=== PATIENT | female | born 1960 | race African-American/Black ===

== ENCOUNTER 2021-07-16 10:49 | Inpatient (IN) | payer OTHER, SELFPAY ==
[2021-07-16] VITALS (44 sets, daily range): BP systolic 93–162; BP diastolic 71–140; PULSE 52–190; RESP 18–32; TEMP 36.2–36.8; O2SAT 91–100; BMI 29.2
--- NOTE | ~2021-07-16 | US_ITS ---
EXAMINATION: US thoracentesis EXAM DATE: 07/16/2021 18:46 INDICATION: Right pleural effusion, shortness of breath. TECHNIQUE: Timeout procedure was performed. I discussed the procedure, its risks and benefits with th e patient. Potential risks discussed included bleeding, infection, and pneumothorax which could poten tially require chest tube. Alternatives were also discussed. The patient understood the risks, was gi adrienne chance to ask questions, and agreed to proceed. The skin was prepped and draped in sterile fashion. 1% lidocaine was used for local anesthesia. Under ultrasound site localization, a 5 Fr catheter with trochar was advanced into the right pleural effus ion. Fluid was aspirated. The catheter was removed, and a dressing was applied. There were no immedia te complications. Patient was sent for postprocedure chest x-ray. FINDINGS: Ultrasound images demonstrate a right pleural effusion adequate in size for performing thoracentesis. IMPRESSION: 1. Successful ultrasound-guided thoracentesis yielding 700 mL of clear fluid. Reviewed, dictated and finalized at location A. R AND CHASSIS INSPECTOR
--- NOTE | ~2021-07-16 | XR_ITS ---
EXAMINATION: XR chest port-a-cath/central DATE: 07/21/2021 15:28 INDICATION: Tunneled dialysis catheter insertion TECHNIQUE: frontal view of the chest was obtained. COMPARISON: Chest radiograph dated 07/20/2021 FINDINGS: Large-bore dual-lumen tunneled right internal jugular central venous catheter with distal tip at the superior cavoatrial junction. Basilar predominant opacities in the bilateral mid to lower lung zones consistent with unchanged small bilateral pleural effusions and associated basilar atelectasis and/or pneumonia. No pulmonary edema or pneumothorax. Prominent enlargement of the cardiac silhouette. IMPRESSION: 1. Right internal jugular central venous port catheter tip at the superior cavoatrial junction. 2. Small bilateral pleural effusions with associated bibasilar atelectasis and/or pneumonia. 3. Enlarged cardiac silhouette which could be due to cardiomegaly or pericardial effusion. Reviewed, dictated and finalized at location B. NE FISHERIES TECHNICIAN IMPRESSION: 1. Right internal jugular central venous port catheter tip at the superior cavo atrial junction. 2. Small bilateral pleural effusions with associated bibasilar atelectasis and/ or pneumonia. 3. Enlarged cardiac silhouette which could be due to cardiomegaly or pericardia l effusion.
--- NOTE | ~2021-07-16 | US_ITS ---
EXAMINATION: US renal BI EXAM DATE: 07/16/2021 18:43 INDICATION: Renal failure. TECHNIQUE: Multiple grayscale and Doppler images of the kidneys were obtained (by a technologist who performed the scan) and subsequently reviewed. There is no prior study for comparison. FINDINGS: Incidental note made of small amount of ascites. Right kidney: There is normal contour and echogenicity. It measures 8.3 x 3.6 x 3.3 centimeters. Th ere are no focal renal lesions identified. There is no hydronephrosis. Left kidney: There is normal contour and echogenicity. It measures 8.6 x 3.6 x 4.7 centimeters. The re are no focal renal lesions identified. Mild left hydronephrosis. Bladder unremarkable. IMPRESSION: 1. Mild to moderate renal atrophy. No hydronephrosis. 2. Mild left hydronephrosis, could be phasic. 3. Small amount of ascites. Reviewed, dictated and finalized at location A. ET MOLDER
--- NOTE | ~2021-07-16 | XR_ITS ---
EXAMINATION: XR chest 2V DATE: 07/20/2021 14:48 INDICATION: Pneumonia TECHNIQUE: PA and lateral views of the chest were obtained. COMPARISON: Chest radiograph dated 07/16/2021 FINDINGS: Persistent opacities in the right mid to lower and left lower lung zones consistent with small bilate ral pleural effusions and associated atelectasis and/or pneumonia. No pulmonary edema or pneumothorax . Cardiomegaly. IMPRESSION: 1. Small bilateral pleural effusions with bibasilar atelectasis and/or pneumonia, right greater than left. 2. Cardiomegaly. Reviewed, dictated and finalized at location B. AND FRAME POLER IMPRESSION: 1. Small bilateral pleural effusions with bibasilar atelectasis and/or pneumoni a, right greater than left. 2. Cardiomegaly.
--- NOTE | ~2021-07-16 | XR_ITS ---
EXAMINATION: XR_[id number]_CR EXAM DATE: 07/16/2021 18:24 INDICATION: Developing shortness of breath. Right pleural effusion, postthoracentesis. TECHNIQUE: Portable AP frontal chest x-ray was obtained. Comparison is made to prior examination from earlier same day. FINDINGS: There is small right pleural effusion, decrease in size following removal of 700 mL fluid. No evidence of postprocedure pneumothorax. There is adjacent airspace disease at least partly atelect asis. Underlying pneumonia or cancer not excludable. Cardiac silhouette is severely enlarged. There a re no osseous abnormalities identified. IMPRESSION: 1. Small right pleural effusion, adjacent multi segmental atelectasis. Superimposed pneumonia or unde rlying cancer not excludable. 2. Severely enlarged cardiac silhouette. Reviewed, dictated and finalized at location A. STANT DIRECTOR OF FINANCIAL AID IMPRESSION: 1. Small right pleural effusion, adjacent multi segmental atelectasis. Superimp osed pneumonia or underlying cancer not excludable. 2. Severely enlarged cardiac silhouette.
--- NOTE | ~2021-07-16 | XR_ITS ---
EXAMINATION: XR fl guide central line place DATE: 07/21/2021 16:11 INDICATION: Central line placement. TECHNIQUE: 2 intraoperative fluoroscopic views of the chest were obtained. I was not present. Fluoros copy exposure time was 126 seconds. COMPARISON: Chest single view 07/21/2021 FINDINGS: A right internal jugular central venous catheter is seen with tip overlying the proximal ri ght atrium. IMPRESSION: 1. Central line tip overlying the proximal right atrium. Reviewed, dictated and finalized at location A. R REPAIRER
--- NOTE | ~2021-07-16 | XR_ITS ---
EXAMINATION: XR chest 1V portable DATE: 07/16/2021 11:38 INDICATION: Hypoxia. Weakness. TECHNIQUE: A single frontal view of the chest was obtained. COMPARISON: None. FINDINGS: There is a moderate-sized right pleural effusion. There are airspace opacities at right artie g base. There is mild atelectasis at left lung base. No pneumothorax. Cardiomegaly is noted. IMPRESSION: 1. Moderate-sized right pleural effusion. 2. Airspace opacities at right lung base, consistent with atelectasis versus pneumonia. 3. Cardiomegaly. Reviewed, dictated and finalized at location A. T LEATHER DEPARTMENT SUPERVISOR IMPRESSION: 1. Moderate-sized right pleural effusion. 2. Airspace opacities at right lung base, consistent with atelectasis versus pn eumonia. 3. Cardiomegaly.
--- NOTE | 2021-07-16 11:25 | ECG_ITS ---
Measurements Intervals [place] Rate: 189 P: PA: 0 QRS: 5 QRSD: 102 T: 182 QT: 244 QTc: 434 Interpretive Statements ATRIAL FIBRILLATION WITH RAPID VENTRICULAR RESPONSE VENTRICULAR PREMATURE COMPLEXES DELAYED PRECORDIAL R/S TRANSITION ST-T WAVE ABNORMALITY IN INF/HIGH LAT LEADS- CONSIDER ISCHEMIA BASELINE ARTIFACT- I, II, III, AVR, AVL, AVF ABNORMAL ECG Electronically Signed On 07-16-2021 13:31:46 LEAD RADIATION THERAPIST by Irwin Ureña D.O.
[2021-07-16] MEDS: dilTIAZem HCl INJ 25 MG/5 ML VIAL 5 MG IV PUSH ×2 (11:42→12:29)
--- NOTE | 2021-07-16 11:42 | ED.GENADULT ---
HPI - General Adult General Chief complaint: Extremity Problem,Nontraumatic Stated complaint: edema bi lateral legs Time Seen by Provider: 07/16/21 11:28 Source: RN notes reviewed History of Present Illness HPI narrative: Patient presents emergency department from home for weakness. Patient states she is a progressive weakness over the past 1 week with swelling of the lower extremities bilaterally this been getting worse. States that she was recently started on Lasix for her lower extremity edema and also scheduled see a outboard motor mechanic at [facility] in several weeks she states she is followed by her PCP but has not seen any specialist at this time she denies any fevers or chills chest pain states she has been feeling short of breath but does not feel like her heart is been racing denies any abdominal pain nausea or vomiting Related Data Home Medications Medication Instructions Recorded Confirmed eplerenone 50 mg PO BID 07/16/21 07/16/21 ferrous sulfate [FeroSul] 325 mg PO DAILY 07/16/21 07/16/21 furosemide 20 mg PO DAILY 07/16/21 07/16/21 metoprolol succinate 100 mg PO DAILY 07/16/21 07/16/21 nifedipine 90 mg PO DAILY 07/16/21 07/16/21 potassium chloride 20 meq PO DAILY 07/16/21 07/16/21 Allergies Allergy/AdvReac Type Severity Reaction Status Date / Time PHILIP Inhibitors Allergy Swelling Verified 07/17/21 01:01 of Lip/Tongue/Throat Review of Systems Review of Systems: Gen.: Denies fevers or chills ENT: Denies congestion Respiratory: See HPI CV: Denies chest pain or palpitations GI: Denies abdominal pain nausea, emesis or diarrhea Musculoskeletal: Denies back pain or muscle pain Neuro: Reports weakness Skin: Denies rash Except as documented, all other systems reviewed and negative [facility] Past Medical History Medical History (Updated 07/17/21 @ 00:47 by Charissa Joshi DO) Chronic kidney disease Hypertension Surgical History Surgical History (Updated 07/17/21 @ 00:43 by Charissa Joshi DO) History of History of tonsillectomy Family History Family History (Updated 07/17/21 @ 01:02 by Nga Sandoval RN) Father CAD (coronary artery disease) Mother Hypertension Social History Social History (Updated 07/17/21 @ 01:15 by Charissa Joshi DO) Social History: The patient lives at home with her daughter and mother. 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 She used to smoke half a pack of cigarettes per day but quit smoking in 2018. She has 20 pack per year smoking history. She used to drink 1-2 beers a day every day but quit doing so several years ago. She now drinks 1 beer on rare occasion. She denies any illicit substance use. Primary care provider: Brandie Rhoades COMPONENT DESIGN ENGINEER Code status: Full code Surrogate decision maker: Daughter Smoking packs per day: 0.5 Smoking cigarettes per day: 10.0 Years smoked: 40 Smoking pack-years: 20.00 Smoking status: Former smoker Tobacco type: cigarettes Alcohol intake: current Drinks per week: 1 Substance use: never Spiritual care concerns: No Exam Narrative: APPEARANCE: No acute distress, nontoxic, resting in bed EYES: EOMI HEENT: Normocephalic, atraumatic, OMM RESPIRATORY: No respiratory distress decreased breath sounds bilateral bases CARDIOVASCULAR: Tachycardic and regular without murmurs rubs or gallops. ABDOMINAL: Soft, nontender, nondistended, no rebound or guarding MUSCULOSKELETAl: Moves all extremities. No clubbing, cyanosis 3+ edema bilateral extremities NEURO: Awake and alert. Following commands, speech normal, no focal deficits SKIN:: Warm, dry. No rashes lesions or abrasions PSYCHIATRIC: Normal affect/mood, Course Course Emergency Course: Discussed Dr. Hoskins presentation work-up discussed patient's current heart rate. At this time recommends continue Cardizem recommends patient started on metoprolol 50 mg once now and then beginning tonight twice daily Discussed with Dr. Silvino crespo
[2021-07-16 11:44] LABS: Basophils Percent Auto 0.3 % (0.2-1.2); Eosinophils Absolute Auto 0.1 K/mm3 (0-0.3); Eosinophils Percent Auto 0.5 % (0-4.4); Hematocrit 34.5 % (37.0-47.0); Hemoglobin 10.7 g/dL (12.0-15.0); Immature Granulocyte Absolute 0.07 K/mm3 (0.00-0.031); Immature Granulocyte Percent A 0.6 % (0-0.5); Lymphocytes Absolute Auto 0.98 K/mm3 (0.9-3.2); Lymphocytes Percent Auto 8.2 % (18.3-44.2); Mean Corpuscular Hemoglobin 26.2 pg (26-34); Mean Corpuscular Volume 84.4 fl (80-100); Mean Platelet Volume 11.1 fl (7.4-10.4); Monocytes Absolute Auto 0.9 K/mm3 (0.1-0.6); Monocytes Percent Auto 7.5 % (2.6-8.5); Neutrophils Absolute Auto 9.9 K/mm3 (1.3-6.7); Neutrophils Percent Auto 82.9 % (45.5-73.1); Platelet Count Result 374 k/mm3 (150-375); Red Blood Count 4.09 M/mm3 (4.2-5.4); Red Cell Distribution Width 18.3 % (11.5-14.5); White Blood Count 11.9 K/mm3 (4.5-10.0)
[2021-07-16 11:56] LABS: Alanine Aminotransferase 146 U/L (4-35); Albumin Level 3.6 g/dL (3.5-5.1); Alkaline Phosphatase 102 U/L (38-126); Anion Gap 17 mmol/L (8-16); Aspartate Amino Transferase 100 U/L (14-36); Bilirubin,Total 1.1 mg/dL (0.2-1.3); Blood Urea Nitrogen 77 mg/dL (7-17); Calcium 8.9 mg/dL (8.4-10.2); Carbon Dioxide 16 mmol/L (22-30); Chloride 102 mmol/L (98-107); Estimated CRCL calculation 10 ml/min; Estimated Glomerular Filt Rate 12; Glucose 134 mg/dL (65-110); Potassium 3.4 mmol/L (3.4-5.0); Sodium 135 mmol/L (137-145)
[2021-07-16] MEDS: dilTIAZem 100 MG/100 ML 100 MG/100 ML BAG IV CONT (11:56)
[2021-07-16 12:11] LABS: NT Pro B Type Natriuretic Pept 21100 pg/mL (5-100)
[2021-07-16] MEDS: METOPROLOL TARTRATE 50 MG TAB PO (13:36)
[2021-07-16 14:23] LABS: INR 1.4; Prothrombin Time 16.8 Seconds (11.1-14.7)
[2021-07-16 14:24] LABS: Partial Thromboplastin Time 34.6 SECONDS (22.3-36.8)
[2021-07-16 15:01] LABS: Creatinine Urine 159.8 mg/dL
[2021-07-16 15:02] LABS: Sodium Urine Random < 5 meq/L
[2021-07-16 15:03] LABS: Add Urine Microscopic? YES; Appearance Urine Clear (Clear); Bilirubin Urine Negative (Negative); Blood Urine 1+ (Negative); Color Urine Yellow (Yellow); Glucose Urine UA Negative (Negative); Ketones Urine Negative (Negative); Leukocyte Esterase Ur Negative LEU/UL (Negative); Mucus Urine Rare /lpf; Nitrate Urine Negative (Negative); Protein Urine 2+ mg/dL (Negative); RBC Urine 0-2 /hpf (0-2); Specific Grav Ur 1.014 (1.001-1.035); Squamous Epithelial Cell Urine Few /hpf (Few); Urobilinogen Urine Negative mg/dL (<2.0); WBC Urine 0-3 /hpf
[2021-07-16 15:44] LABS: Lactic Acid Reflex 1.8 mmol/L (0.7-2.1)
[2021-07-16 16:54] LABS: Lactate Dehydrogenase 1079 U/L (313-618)
[2021-07-16 18:47] LABS: pH Pleural Fluid 7.464 (7.210-7.500)
[2021-07-16] MEDS: HEPARIN SODIUM 5,000 UNITS/ML VIAL 4500 UNITS IV PUSH (18:57)
[2021-07-16] MEDS: HEPARIN SOD/D5W 100 UNITS/ML 25,000 UNITS/250 ML BAG 10 UNITS IV CONT (19:02)
[2021-07-16 19:10] LABS: Troponin I 0.156 ng/mL (0.000-0.034)
--- NOTE | 2021-07-16 19:22 | PC.NURSE ---
Report received from RUPESH Bahena. Assumed care of patient at this time.
[2021-07-16] MEDS: METOPROLOL TARTRATE INJ 5 MG/5 ML VIAL IV PUSH (19:44)
[2021-07-16 20:18] LABS: Pleural fluid source Pleural fluid
[2021-07-16 20:19] LABS: Appearance Pleural Fluid Hazy (Clear); Color Pleural Fluid Yellow (Colorless)
[2021-07-16 20:20] LABS: Lymphocytes Pleural Fluid 38 %; Macrophages Pleural Fluid 8 %; Mesothelial Cells Pleural Flui 1 %; Monocytes Pleural Fluid 48 %; Neutrophils Pleural Fluid 5 % (0-25)
--- NOTE | 2021-07-16 21:53 | PM.IMHP ---
H&P: HPI History of Present Illness Date/Time: 07/16/21 21:53 Chief Complaint: Weakness, leg swelling Narrative: 60-year-old female with past medical history of hypertension and chronic kidney disease who presented to the ER with progressive weakness and increased lower extremity swelling over the last week. The patient reports that she has had chronic kidney disease for least 3 years. She states that with her last set of labs in February her kidney function had improved slightly. She was evaluated by a kindergarten tutor several years ago but she cannot recall where they were located. She is supposed to follow-up with a kindergarten tutor at [place] and a few weeks. She has not noticed any changes in her urinary frequency urgency or urinary amounts. She has noticed foamy urine. She was started on Lasix July 05. She stated that she is actually developed some mild shortness breath over the last couple of months but her symptoms acutely worsen in the last week. She has been having increased shortness of breath at rest that is worse with activity, lower extremity swelling, paroxysmal nocturnal dyspnea and orthopnea for the last week. She denies having sensation of palpitations but states that she feels as if she is going to have a panic attack all week. She reports that her swelling has gotten progressively worsened is now up to her knees. She denies any nausea or vomiting. She has had waxing and waning appetite. She denies any fevers or chills. After she arrived to the intermediate unit the patient acutely felt ill was diaphoretic, pale restless and extremely nauseated. The patient developed profound hypotension with systolic blood pressures in the 70s. Her heart rates were still in the 120s. Nursing staff immediately stop the Cardizem drip. It appears that the patient's Cardizem was PE packed with her antibiotic therapy and nurse was concerned that the patient may have been getting a higher infusion rate of Cardizem than her she was supposed to receive. The patient's Cardizem was held for approximately 30 minutes. The patient's blood pressure rebounded. Cardizem drip has been restarted at 5 mg an hour. If hypotension recurs nursing staff will need to call Cardiology. The patient underwent thoracentesis by IR james still in the ER. 700 mL of clear fluid was obtained. The thoracentesis did help her shortness of breath. Studies are pending. The patient reports that she is allergic to Aftab inhibitors in a causes angioedema of her lips. Review of Systems Review of Systems: 12 systems were reviewed with pertinent positives and negatives per HPI. Except as documented in the HPI, all other systems were reviewed and are negative. [facility] Past Medical History Medical History (Updated 07/17/21 @ 00:47 by Charissa Joshi DO) Chronic kidney disease Hypertension Surgical History Surgical History (Updated 07/17/21 @ 00:43 by Charissa Joshi DO) History of History of tonsillectomy Social History Social History (Updated 07/16/21 @ 21:55 by Charissa Joshi DO) Smoking packs per day: 0.5 Smoking cigarettes per day: 10.0 Years smoked: 30 Smoking pack-years: 15.00 Smoking status: Current some day smoker Tobacco type: cigarettes Alcohol intake: current Drinks per week: 1 Substance use: never Spiritual care concerns: No Meds Home Medications and Allergies Home Medications Medication Instructions Recorded Confirmed Type eplerenone 50 mg PO BID 07/16/21 07/16/21 History ferrous sulfate [FeroSul] 325 mg PO DAILY 07/16/21 07/16/21 History furosemide 20 mg PO DAILY 07/16/21 07/16/21 History metoprolol succinate 100 mg PO DAILY 07/16/21 07/16/21 History nifedipine 90 mg PO DAILY 07/16/21 07/16/21 History potassium chloride 20 meq PO DAILY 07/16/21 07/16/21 History Allergies Allergy/AdvReac Type Severity Reaction Status Date / Time No Known Allergies Allergy Unverified 01/10/18 23:27 Vital Signs Vit
[2021-07-16 22:32] LABS: Troponin I 0.165 ng/mL (0.000-0.034)
[2021-07-17] VITALS (18 sets, daily range): BP systolic 108–135; BP diastolic 90–106; PULSE 72–158; RESP 12–20; TEMP 35.8–37; O2SAT 97–100
[2021-07-17] MEDS: METOPROLOL TARTRATE 50 MG TAB PO ×3 (00:10→20:32)
[2021-07-17] MEDS: dilTIAZem 100 MG/100 ML 100 MG/100 ML BAG 10 MG IV CONT (00:16)
[2021-07-17 01:28] LABS: Partial Thromboplastin Time 99.5 SECONDS (22.3-36.8)
[2021-07-17 08:03] LABS: Alanine Aminotransferase 193 U/L (4-35); Albumin Level 3.3 g/dL (3.5-5.1); Alkaline Phosphatase 87 U/L (38-126); Anion Gap 17 mmol/L (8-16); Aspartate Amino Transferase 128 U/L (14-36); Bilirubin,Total 0.8 mg/dL (0.2-1.3); Blood Urea Nitrogen 83 mg/dL (7-17); Calcium 8.4 mg/dL (8.4-10.2); Carbon Dioxide 16 mmol/L (22-30); Chloride 101 mmol/L (98-107); Estimated CRCL calculation 9 ml/min; Estimated Glomerular Filt Rate 10; Glucose 109 mg/dL (65-110); Potassium 3.4 mmol/L (3.4-5.0); Sodium 134 mmol/L (137-145)
[2021-07-17 08:04] LABS: Basophils Percent Auto 0.2 % (0.2-1.2); Eosinophils Percent Auto 0.2 % (0-4.4); Hematocrit 32.8 % (37.0-47.0); Hemoglobin 10.5 g/dL (12.0-15.0); Immature Granulocyte Absolute 0.07 K/mm3 (0.00-0.031); Immature Granulocyte Percent A 0.6 % (0-0.5); Lymphocytes Absolute Auto 0.87 K/mm3 (0.9-3.2); Lymphocytes Percent Auto 7.2 % (18.3-44.2); Mean Corpuscular Hemoglobin 26.8 pg (26-34); Mean Corpuscular Volume 83.7 fl (80-100); Mean Platelet Volume 11.1 fl (7.4-10.4); Monocytes Absolute Auto 0.8 K/mm3 (0.1-0.6); Monocytes Percent Auto 6.5 % (2.6-8.5); Neutrophils Absolute Auto 10.4 K/mm3 (1.3-6.7); Neutrophils Percent Auto 85.3 % (45.5-73.1); Platelet Count Result 336 k/mm3 (150-375); Red Blood Count 3.92 M/mm3 (4.2-5.4); Red Cell Distribution Width 17.6 % (11.5-14.5); White Blood Count 12.1 K/mm3 (4.5-10.0)
--- NOTE | 2021-07-17 08:43 | PM.CNCAR ---
Assessment and Plan Additional Plan This is a 60-year-old lady with: Longstanding hypertension by her history you not well controlled and she now has what appears to be end-stage renal disease. In this setting she presents to the hospital with volume overload also found to be in atrial fib with RVR. She was given some IV diltiazem along with the metoprolol she normally takes to provide rate control. It looks like last evening she may of in inverted we got a higher dose of the diltiazem and transiently was hypotensive. Her blood pressure is not low since the dosage has been adjusted and she is not in any distress this morning. She certainly could have a hypertensive cardiomyopathy as well as her cardiac silhouette is enlarged. For the time being I will keep her on metoprolol and diltiazem I am going to transition her to oral diltiazem this morning. She will have an echocardiogram ordered. She is anticoagulated with heparin. Obviously her renal failure limits her anticoagulation options. Nephrology consult has been requested and is pending. Very good chance that renal replacement therapy will have to be recommended and as such oral anticoagulation should be delayed until vascular access issues are settled. Thank you for asking me to see this nice lady and participate in this rather complicated situation Jama Hoskins MD [facility] History of Present Illness History of Present Illness Consult date/time: 07/17/21 08:43 Consult reason: atrial fibrillation Reason For Visit: chf,acute renal failure,pleural effusion,a fib wit Narrative: This is a 60-year-old lady I am seeing at the request of the hospitalist this morning because she presented to the hospital yesterday with a atrial fibrillation and rapid ventricular response. She has not been to [facility] in the past and receives her care up in [place] so we do not have any previous records on this lady for us to review. She is a good historian however and states that she has had longstanding hypertension since she was a teenager. She states her blood pressure over the years has been difficult for her physician to control. She has been told of chronic kidney disease in the past and she was told that she needed to see a laboratory technical specialist and an appointment was made with a physician over at [facility] which is scheduled for later in the month but that has not yet occurred. She started to feel short of breath with a lot of lower extremity for edema developing over the last several weeks and because of significant shortness of breath came to this hospital's emergency room last evening. In the emergency department she was found to be in atrial fib with RVR. She also had a fairly large right pleural effusion. She was not specifically aware of being in atrial fib she is not aware of the sense of tachycardia or palpitations she denies any chest pain symptoms. She does not have any prior history of cardiac problems that she has been made aware of. The chest x-ray also appears to show enlargement of the cardiac silhouette. She takes metoprolol for hypertension along with nifedipine. Metoprolol has been continued she was given intravenous diltiazem overnight for heart rate control. With that combination her heart rate is in the 110-120 this morning. She is relatively comfortable appearing and not in any distress at this time. Patient is ECG demonstrates AFib with RVR left ventricular hypertrophy and nonspecific ST and T-wave abnormalities. Her metabolic profile shows a creatinine to be 5.3 with a BUN of 83. She underwent thoracentesis in the emergency room last night removing a significant amount of pleural fluid after this her shortness of breath did improve somewhat. Review of Systems Constitutional: Constitutional: Reports fatigue Eyes: Eyes: Reports no additional eye complaints ENT: Reports system reviewed and no additional complaints, except as documented Cardiovascular: Car
[2021-07-17 08:51] LABS: Partial Thromboplastin Time 67.2 SECONDS (22.3-36.8)
[2021-07-17] MEDS: POTASSIUM CHLORIDE 20 MEQ TABLET.ER PO (08:58)
[2021-07-17] MEDS: FERROUS SULFATE 324 MG TABLET PO (08:58)
[2021-07-17] MEDS: HEPARIN SODIUM 5,000 UNITS/ML VIAL 2000 UNITS IV PUSH ×2 (09:05→23:42)
--- NOTE | 2021-07-17 10:04 | PM.CNNEP ---
Assessment and Plan Assessment and plan (1) Chronic kidney disease, unspecified: Code(s): N18.9 - Chronic kidney disease, unspecified Status: Acute Assessment and Plan: Dory has chronic kidney disease. We do not have any record of creatinine values for yesterday. She says that she used to see Dr. Mayberry and now is planning to see somebody at [facility] further nephrology care. She was told that her kidney function was worse in February but then on repeat was better again. Her renal ultrasound shows small kidneys consistent with chronic kidney disease from hypertension. It is unclear whether there is an acute component to her kidney disease. Renal ultrasound does not show hydronephrosis but does show small kidneys. Urine electrolytes are non pre renal. Urinalysis shows protein and a little blood. It is very possible that her atrial fibrillation is what caused her to swell and possibly have an increased creatinine because of decreased cardiac output and therefore decreased perfusion of the kidneys. I told her that if we knew she was not going to get better we would start talking about dialysis. However, since she has the atrial fibrillation, we can hold off on this for now and see if her kidneys get better when the atrial fibrillation is treated. She has clear volume overload. Will give her diuretics. Cardiology will work on the atrial fibrillation. We will see what happens with her kidneys. (2) Hypertension: Code(s): I10 - Essential (primary) hypertension Status: Acute Assessment and Plan: She has longstanding hypertension. When I mention a hormonal cause coming from her adrenal glands, her eyes wide mid she said ?that is what it is ?. Her potassium is at the low end of normal so even though she has a high creatinine we should continue the eplerenone for now. Her blood pressure is under good control (3) Atrial fibrillation with rapid ventricular response: Code(s): I48.91 - Unspecified atrial fibrillation Status: Acute Assessment and Plan: Her heart rate is in the 100-130 on the monitor. She is on diltiazem drip and also heparin drip. Cardiology is managing this (4) CHF (congestive heart failure): Qualifiers: Heart failure chronicity: acute Heart failure type: unspecified Qualified Code(s): I50.9 - Heart failure, unspecified Code(s): I50.9 - Heart failure, unspecified Status: Acute Assessment and Plan: She has volume overload.ll get diarrhea She will get diuretics. (5) Pleural effusion on right: Code(s): J90 - Pleural effusion, not elsewhere classified Status: Acute Assessment and Plan: She had a thoracentesis. We will see how these tests die turner. (6) Elevated LFTs: Code(s): R79.89 - Other specified abnormal findings of blood chemistry Status: Acute Assessment and Plan: We should check hepatitis studies. However it may just be passive congestion. (7) Elevated troponin: Code(s): R77.8 - Other specified abnormalities of plasma proteins Status: Acute Assessment and Plan: These are mildly elevated and a relatively flat curve over time. This could be strain from the atrial fibrillation or could be from her kidney disease. Cardiology is on the case History of Present Illness Reason for Consult Consult date: 07/17/21 Chief Complaint Chief complaint: chf,acute renal failure,pleural effusion,a fib wit History of Present Illness Narrative: Dory is a very pleasant 60-year-old lady who has multiple medical problems including longstanding hypertension with which she describes things consistent with primary hyperaldosteronism. She has had this for many years and her blood pressures been pretty well controlled. Several years ago she used to see Dr. Mayberry for nephrology but has not seen him in at least 3 years. She has been seeing her primary care doctor who recently
[2021-07-17] MEDS: BUMETANIDE INJ 1 MG/4 ML VIAL IV PUSH ×2 (10:50→17:50)
[2021-07-17 15:43] LABS: Partial Thromboplastin Time 118.4 SECONDS (22.3-36.8)
--- NOTE | 2021-07-17 17:33 | PM.IMPN ---
Progress Note: A&P Assessment and Plan (1) Chronic kidney disease, unspecified: Code(s): N18.9 - Chronic kidney disease, unspecified Status: Acute (2) Acute renal failure superimposed on chronic kidney disease: Qualifiers: Acute renal failure type: unspecified Chronic kidney disease stage: unspecified stage Qualified Code(s): N17.9 - Acute kidney failure, unspecified; N18.9 - Chronic kidney disease, unspecified Code(s): N17.9 - Acute kidney failure, unspecified; N18.9 - Chronic kidney disease, unspecified Status: Acute (3) Atrial fibrillation with rapid ventricular response: Code(s): I48.91 - Unspecified atrial fibrillation Status: Acute (4) CHF (congestive heart failure): Qualifiers: Heart failure chronicity: acute Heart failure type: unspecified Qualified Code(s): I50.9 - Heart failure, unspecified Code(s): I50.9 - Heart failure, unspecified Status: Acute Additional Plan # AFib with RVR # CHF exacerbation -AFib likely secondary to fluid overload -rate control: Metoprolol 50 mg q.12 hours, diltiazem drip transition to p.o. diltiazem 240 mg daily by Cardiology -anticoagulation: Heparin drip -goal keep potassium greater than 4, magnesium greater than 2, patient was started on 20 mEq potassium supplement daily -appreciate cardiology consult -with fluid overload nephrology consulted, Bumex 1 mg b.i.d. started -echocardiogram ordered -we are doing Bumex now, at home was on furosemide 20 mg daily, apparently own 50 mg b.i.d., metoprolol succinate 100 mg daily # right pleural effusion -status post thoracentesis 700 mL of clear fluid likely secondary to heart failure # elevated troponin -0.165 likely secondary to AFib RVR, no chest pain # sepsis, possible pneumonia -antibiotic: Rocephin, azithromycin -afebrile, WBC up to 12.1 -chest x-ray is read as possible superimposed pneumonia -blood cultures no growth today # ESRD, CKD stage 5 -nephrology consulted -creatinine elevated 5.30, GFR 10 -patient likely need to start hemodialysis -renal ultrasound shows mild to moderate renal atrophy, mild left hydronephrosis, small ascites # anemia likely of CKD -continue ferrous sulfate supplement # essential hypertension -continue home nifedipine 90 mg daily, held home metoprolol succinate, furosemide, eplerenone -patient states she may have had some adrenal issue, will have to investigate -nephrology consulted Diet: Heart healthy with fluid restriction DVT prophylaxis: Heparin drip Code status: Full code Disposition: Continue in IMU while on heparin drip and diltiazem, PT and OT consulted Subjective Date/time seen: 07/17/21 17:33 Patient seen examined. She seems to be doing okay today. Yesterday the ER she had thoracentesis to remove fluid from her lungs likely secondary to heart failure. She was put on diltiazem drip which may have been on high dose than intended causing hypotension. Now she has been doing well on diltiazem drip. Cardiology evaluated patient to transition her to oral diltiazem. Echocardiogram is ordered. She is on heparin anticoagulation and will need to be switched to p.o. agent. Nephrology is consulted for her renal failure as well. Patient will likely need to have vascular access for hemodialysis. For Nephrology she is to follow Dr. Mayberry and now following up with Braxton Messer. She likely has CKD secondary hypertension. She will be diuresed for volume overload. She believes her appetite hypertension is secondary to her adrenals. She feels better than yesterday. Endorses generalized weakness. She denies fever, chills, nausea, vomiting, diarrhea. Review of Systems Review of Systems: All systems reviewed & are unremarkable except as noted in HPI and below Exam Narrative: - GENERAL: Pleasant woman in no acute distress breathing comfortably on 2 L nasal cannula - EYES: EOMI. Anicteric. - HENT: Moist mucous membranes. -
[2021-07-17] MEDS: HEPARIN SOD/D5W 100 UNITS/ML 25,000 UNITS/250 ML BAG 10 UNITS IV CONT (17:57)
[2021-07-17 21:57] LABS: Glucose Point of Care 201 mg/dl (65-105)
[2021-07-17 22:29] LABS: Partial Thromboplastin Time 66.8 SECONDS (22.3-36.8)
[2021-07-18] VITALS (16 sets, daily range): BP systolic 101–151; BP diastolic 72–116; PULSE 96–154; RESP 18–20; TEMP 36.1–36.8; O2SAT 97–100
--- NOTE | 2021-07-18 | ECHO_ITS ---
Patient Info Name: Dory Lynn Age: 60 years : 1960 Gender: Female Ht: 60 in Wt: 149 lbs BSA: 1.72 m2 HR: 121 bpm BP: 151 / 95 mmHg Heart Rhythm: Atrial Fibrillation Technical Quality: Fair Exam Date: 07/18/2021 7:55 AM Exam Location: [facility] Pulmonary Patient Status: Inpatient Admit Date: 07/17/2021 Staff Ordering Physician: Jama Hoskins MD English Language Learner Tutor: Luanne Palomino RDCS Attending Provider: Ulisses Hoskins MD Referring Physician: Aidee OCONNOR; Exam Type: CA echo doppler color flow Study Info Indications - Atrial fibrillation, renal failure Complete two-dimensional, color flow and Doppler transthoracic echocardiogram is performed. Summary 1. Complete two-dimensional, color flow and Doppler transthoracic echocardiogram is performed. 2. Left ventricular chamber dimension is moderately enlarged. 3. There is moderate concentric increased left ventricular wall thickness. 4. Left ventricular systolic function is severely reduced, estimated at 20-25%. 5. Severe biatrial dilation. 6. Mildly sclerotic aortic valve which is not stenotic. 7. Small amount of mitral and tricuspid valve insufficiency. 8. Atrial fibrillation. Left Ventricle Left ventricular chamber dimension is moderately enlarged. Left ventricular systolic function is severely reduced, estimated at 20-25%. There is moderate concentric increased left ventricular wall thickness. The left ventricular diastolic function is indeterminate. Right Ventricle Right ventricular chamber dimension is mildly enlarged. Left Atria Left atrial chamber dimension is severely enlarged. Right Atria Right atrial chamber dimension is severely enlarged. Aortic Valve The aortic valve is trileaflet. There is mild aortic valve sclerosis. Pulmonic Valve The pulmonic valve is normal. There is mild pulmonic regurgitation. Mitral Valve The mitral valve has normal leaflets. There is trace mitral valve regurgitation. The mitral valve annulus is mildly calcified. Tricuspid Valve The tricuspid valve leaflets are normal. There is mild tricuspid valve regurgitation. Pericardium/Pleural The pericardium appears normal. Aorta The aortic root size at the sinus of Valsalva is normal. Left Ventricular Outflow Tract Name Value Normal LVOT 2D LVOT Diameter 1.9 cm LVOT Doppler LVOT Peak Gradient 4 mmHg LVOT Mean Gradient 2 mmHg LVOT VTI 15 cm LVOT VTI/AV VTI Ratio 0.6 LVOT Stroke Volume 42 ml LVOT CO 3.3 l/min LVOT CI 1.9 l/min/m2 Pulmonic Valve Name Value Normal RVOT Doppler RVOT Peak Gradient 3 mmHg PV Doppler -----
[2021-07-18 07:03] LABS: Basophils Percent Auto 0.1 % (0.2-1.2); Eosinophils Absolute Auto 0.1 K/mm3 (0-0.3); Eosinophils Percent Auto 0.7 % (0-4.4); Hemoglobin 9.7 g/dL (12.0-15.0); Immature Granulocyte Absolute 0.07 K/mm3 (0.00-0.031); Immature Granulocyte Percent A 0.6 % (0-0.5); Lymphocytes Absolute Auto 0.68 K/mm3 (0.9-3.2); Mean Corpuscular HGB Conc 31.3 g/dl (32-36); Mean Corpuscular Volume 83.1 fl (80-100); Mean Platelet Volume 10.9 fl (7.4-10.4); Monocytes Absolute Auto 0.8 K/mm3 (0.1-0.6); Monocytes Percent Auto 6.6 % (2.6-8.5); Neutrophils Absolute Auto 9.8 K/mm3 (1.3-6.7); Nucleated Red Blood Cells Perc 0.2 % (0.0-0.2); Platelet Count Result 325 k/mm3 (150-375); Red Blood Count 3.73 M/mm3 (4.2-5.4); Red Cell Distribution Width 17.6 % (11.5-14.5); White Blood Count 11.4 K/mm3 (4.5-10.0)
[2021-07-18 07:18] LABS: Alanine Aminotransferase 173 U/L (4-35); Albumin Level 3.3 g/dL (3.5-5.1); Alkaline Phosphatase 107 U/L (38-126); Anion Gap 12 mmol/L (8-16); Aspartate Amino Transferase 75 U/L (14-36); Bilirubin,Total 0.4 mg/dL (0.2-1.3); Blood Urea Nitrogen 92 mg/dL (7-17); Carbon Dioxide 21 mmol/L (22-30); Chloride 100 mmol/L (98-107); Estimated CRCL calculation 9 ml/min; Estimated Glomerular Filt Rate 9; Glucose 119 mg/dL (65-110); Magnesium 2.3 mg/dL (1.6-2.3); Phosphorus 6.1 mg/dL (2.5-4.5); Potassium 3.4 mmol/L (3.4-5.0); Sodium 133 mmol/L (137-145)
[2021-07-18 07:21] LABS: Partial Thromboplastin Time 100.6 SECONDS (22.3-36.8)
[2021-07-18] MEDS: BUMETANIDE INJ 1 MG/4 ML VIAL IV PUSH (08:57)
[2021-07-18] MEDS: METOPROLOL TARTRATE 50 MG TAB PO ×2 (08:57→12:36)
[2021-07-18] MEDS: FERROUS SULFATE 324 MG TABLET PO (08:58)
[2021-07-18] MEDS: POTASSIUM CHLORIDE 20 MEQ TABLET.ER PO (08:58)
--- NOTE | 2021-07-18 09:14 | PM.IMPN ---
Progress Note: A&P Assessment and Plan (1) Chronic kidney disease, unspecified: Code(s): N18.9 - Chronic kidney disease, unspecified Status: Acute Assessment and Plan: # ESRD, CKD stage 5 -nephrology consulted -creatinine elevated 6.10, GFR 10 -currently patient presents with peripheral lower extremity edema and is being diuresed. She is status post thoracentesis. Electrolytes are within acceptable range. There is no emergent indication for renal replacement therapy. Preserve upper extremity vasculature in this patient for be required renal replacement therapy in her lifestyle. Avoid PICC line, peripheral line in non dominant arm. This is an evidence based guideline. -renal ultrasound shows mild to moderate renal atrophy, mild left hydronephrosis, small ascites (2) Acute renal failure superimposed on chronic kidney disease: Qualifiers: Acute renal failure type: unspecified Chronic kidney disease stage: unspecified stage Qualified Code(s): N17.9 - Acute kidney failure, unspecified; N18.9 - Chronic kidney disease, unspecified Code(s): N17.9 - Acute kidney failure, unspecified; N18.9 - Chronic kidney disease, unspecified Status: Acute Assessment and Plan: It is unclear if the patient present with acute kidney injury in the setting of advance kidney disease. Certainly in kidney imaging reveal small kidneys, suggesting chronic kidney disease. Psychological preparation for dialysis. Check iron stores and consider erythropoietin stimulating agents. Target hemoglobin of 10. (3) Atrial fibrillation with rapid ventricular response: Code(s): I48.91 - Unspecified atrial fibrillation Status: Acute Assessment and Plan: # AFib with RVR # CHF exacerbation -AFib likely secondary to fluid overload -rate control: Metoprolol 50 mg q.12 hours, diltiazem drip transition to p.o. diltiazem 240 mg daily by Cardiology -anticoagulation: Heparin drip -goal keep potassium greater than 4, magnesium greater than 2, patient was started on 20 mEq potassium supplement daily -appreciate cardiology consult -with fluid overload nephrology consulted, Bumex 1 mg b.i.d. started -echocardiogram ordered -we are doing Bumex now, at home was on furosemide 20 mg daily, apparently own 50 mg b.i.d., metoprolol succinate 100 mg daily (4) CHF (congestive heart failure): Qualifiers: Heart failure chronicity: acute Heart failure type: unspecified Qualified Code(s): I50.9 - Heart failure, unspecified Code(s): I50.9 - Heart failure, unspecified Status: Acute Assessment and Plan: # elevated troponin -0.165 likely secondary to AFib RVR, no chest pain (5) Community acquired pneumonia: Code(s): J18.9 - Pneumonia, unspecified organism Status: Acute Assessment and Plan: # sepsis, possible pneumonia -antibiotic: Rocephin, azithromycin -afebrile, WBC up to 12.1 -chest x-ray is read as possible superimposed pneumonia -blood cultures no growth today (6) Pleural effusion on right: Code(s): J90 - Pleural effusion, not elsewhere classified Status: Acute (7) Acute renal failure: Code(s): N17.9 - Acute kidney failure, unspecified Status: Acute (8) Hypertension: Code(s): I10 - Essential (primary) hypertension Status: Acute Assessment and Plan: # essential hypertension -continue home nifedipine 90 mg daily, held home metoprolol succinate, furosemide, eplerenone -patient states she may have had some adrenal issue, will have to investigate -nephrology consulted. Additional Plan # anemia likely of CKD -continue Diet: Heart healthy with fluid restriction DVT prophylaxis: Heparin drip Code status: Full code Disposition: Continue in IMU while on heparin drip and diltiazem, PT and OT consulted Subjective Date/time seen: 07/18/21 11:28 S: Patient seen and examined at the bedside. She underwent th
--- NOTE | 2021-07-18 10:54 | PM.PNCARD ---
Progress Note: A&P Assessment and Plan (1) Atrial fibrillation with rapid ventricular response: Code(s): I48.91 - Unspecified atrial fibrillation <RICHARD Viramontes - Last Filed: 07/18/21 12:17> Status: Acute <RICHARD Viramontes - Last Filed: 07/18/21 12:17> Assessment and Plan: This seems to be a new problem-she does not recall having any history of atrial fibrillation. She is currently on diltiazem 240 mg p.o. daily and metoprolol 50 mg p.o. b.i.d. for rate control. Her rate is generally not well controlled. Despite this, she is not symptomatic. Increase metoprolol to 50 mg Q8 hours Continue anticoagulation with heparin for now in anticipation of possible hemodialysis catheter placement. Will switch to DOAC at some point. Continue to monitor on telemetry <RICHARD Viramontes - Last Filed: 07/18/21 12:17> (2) CHF (congestive heart failure): Qualifiers: Heart failure chronicity: acute Heart failure type: unspecified Qualified Code(s): I50.9 - Heart failure, unspecified <RICHARD Viramontes - Last Filed: 07/18/21 12:17> Code(s): I50.9 - Heart failure, unspecified <RICHARD Viramontes - Last Filed: 07/18/21 12:17> Status: Acute <RICHARD Viramontes - Last Filed: 07/18/21 12:17> Assessment and Plan: Presented with volume overload in the form of lower extremity edema and shortness of breath. She was found to have a large pleural effusion that was drained. Her shortness of breath has resolved following this procedure and with administration of IV diuretics. Continue Bumex 1 mg IV b.i.d. Echocardiogram has been performed, further recommendations to follow review the results. Compression stockings Low-sodium diet Daily weights Monitor renal function and electrolytes with daily BMP <RICHARD Viramontes - Last Filed: 07/18/21 12:17> (3) Acute renal failure superimposed on chronic kidney disease: Qualifiers: Acute renal failure type: unspecified Chronic kidney disease stage: unspecified stage Qualified Code(s): N17.9 - Acute kidney failure, unspecified; N18.9 - Chronic kidney disease, unspecified <RICHARD Viramontes - Last Filed: 07/18/21 12:17> Code(s): N17.9 - Acute kidney failure, unspecified; N18.9 - Chronic kidney disease, unspecified <RICHARD Viramontes - Last Filed: 07/18/21 12:17> Status: Acute <RICHARD Viramontes - Last Filed: 07/18/21 12:17> Assessment and Plan: CKD stage 5 with creatinine now 6.10. Nephrology has been consulted and the idea hemodialysis has been discussed with her. <RICHARD Viramontes - Last Filed: 07/18/21 12:17> (4) Hypertension: Code(s): I10 - Essential (primary) hypertension <RICHARD Viramontes - Last Filed: 07/18/21 12:17> Status: Acute <RICHARD Viramontes - Last Filed: 07/18/21 12:17> Assessment and Plan: Longstanding history of hypertension that apparently has been difficult to control. <RICHARD Viramontes - Last Filed: 07/18/21 12:17> Additional Plan Attending Addendum: I personally seen and examined this patient at bedside. I agree with the above documentation and plan of care as outlined. She is feeling better. Denies significant shortness breath sitting but no short of breath lying on her side or lying back. No chest pain occasionally aware of elevated heart rate. No nausea vomiting. Remains in AFib with RVR. She had an adverse reaction to intravenous azithromycin last night - Exam: NAD, A&Ox3, nonfocal neuro exam No JVD Lungs faint crackles right base otherwise fair aeration no wheezing Cardio tachycardic, irregular irregular rate and rhythm S1/S2 Abd soft, NT/ND, +BS Ext 2+ bilateral lower extremity pitting edema, no clubbing, or cyanosis Plan of Care: Discussed multiple options medical management of atrial fibrillation with rapid ventricular response. Will f
[2021-07-18 12:58] LABS: Partial Thromboplastin Time 83.7 SECONDS (22.3-36.8)
--- NOTE | 2021-07-18 15:30 | PM.PNNEP ---
Progress Note: A&P Assessment and Plan (1) Chronic kidney disease, unspecified: Code(s): N18.9 - Chronic kidney disease, unspecified Status: Acute Assessment and Plan: Dory has chronic kidney disease. We do not have any record of creatinine values before yesterday. most likely her chronic kidney disease is from hypertension. It is unclear whether there is an acute component to her kidney disease. Renal ultrasound does not show hydronephrosis but does show small kidneys. Urine electrolytes are non pre renal. Urinalysis shows protein and a little blood. She probably has a pre renal component to her renal disease cause by the atrial fibrillation. She has clear volume overload. Her urine output did not respond very well to the Bumex. Will increase the dose and add metolazone. Cardiology will work on the atrial fibrillation. Echocardiogram is underway We will see what happens with her kidneys. (2) Hypertension: Code(s): I10 - Essential (primary) hypertension Status: Acute Assessment and Plan: She has longstanding hypertension. When I mention a hormonal cause coming from her adrenal glands, her eyes wide mid she said ?that is what it is ?. Her potassium is still at the low end of normal so even though she has a high creatinine we should continue the eplerenone for now. Her blood pressure is under good control (3) Atrial fibrillation with rapid ventricular response: Code(s): I48.91 - Unspecified atrial fibrillation Status: Acute Assessment and Plan: Her heart rate is still a bit high. She is on diltiazem drip and also heparin drip. Cardiology is managing this (4) CHF (congestive heart failure): Qualifiers: Heart failure chronicity: acute Heart failure type: unspecified Qualified Code(s): I50.9 - Heart failure, unspecified Code(s): I50.9 - Heart failure, unspecified Status: Acute Assessment and Plan: She has volume overload. She will get inc dose of diuretics. (5) Pleural effusion on right: Code(s): J90 - Pleural effusion, not elsewhere classified Status: Acute Assessment and Plan: She had a thoracentesis. We will see how these tests returner. (6) Elevated LFTs: Code(s): R79.89 - Other specified abnormal findings of blood chemistry Status: Acute Assessment and Plan: We should check hepatitis studies. However it may just be passive congestion. (7) Elevated troponin: Code(s): R77.8 - Other specified abnormalities of plasma proteins Status: Acute Assessment and Plan: These are mildly elevated and a relatively flat curve over time. This could be strain from the atrial fibrillation or could be from her kidney disease. Cardiology is on the case Subjective Date/time seen: 07/18/21 15:30 Interval history: the patient feels okay today. She feels like she is less short of breath. She is still swollen but feels a little bit less so. Review of Systems Cardiovascular: Cardiovascular: Reports no additional cardiovascular complaints Respiratory: Respiratory: Reports no additional respiratory complaints Gastrointestinal: Gastrointestinal: Reports no additional gastrointestinal complaints Genitourinary: Genitourinary: Reports no additional female genitourinary complaints Exam Narrative: WDWN in NAD skin no rash head ncat lungs decreased breath sounds at the bases cor irreg irreg no rub abd BS+ nontender and soft ext 2+ bilateral edema. Objective Data Vital Signs Vital Signs: Vital Signs - 24 hr 07/17/21 16:00 07/17/21 18:00 07/17/21 20:00 Temperature 35.8 C L 36.6 C Pulse Rate 115 H 128 H 142 H Respiratory Rate 12 16 Blood Pressure 128/92 H 127/93 H Pulse Oximetry 98 100 07/17/21 20:32 07/17/21 21:15 07/17/21 22:00 Temperature Pulse Rate 132 H 122 H Respiratory Rate Blood Pressure 108/90 Pulse Oximetry
[2021-07-18] MEDS: HEPARIN SOD/D5W 100 UNITS/ML 25,000 UNITS/250 ML BAG 11 UNITS IV CONT (16:11)
[2021-07-18] MEDS: BUMETANIDE INJ 1 MG/4 ML VIAL 2 MG IV PUSH (16:11)
[2021-07-18] MEDS: metOLazone 5 MG TABLET PO (17:11)
[2021-07-18 20:14] LABS: Hepatitis B Surface Antigen Negative (Negative)
[2021-07-18 20:20] LABS: HAV RESULT Negative (Negative)
[2021-07-18 20:32] LABS: Hepatitis B Surface Anti Res Negative; Hepatitis C Virus Antibody Negative (Negative)
[2021-07-18] MEDS: METOPROLOL TARTRATE 25 MG TABLET 75 MG PO (21:35)
[2021-07-19] VITALS (18 sets, daily range): BP systolic 99–139; BP diastolic 40–102; PULSE 79–154; RESP 16–22; TEMP 36.3–36.8; O2SAT 95–100
[2021-07-19 05:04] LABS: Partial Thromboplastin Time 77.9 SECONDS (22.3-36.8)
[2021-07-19 05:12] LABS: Albumin Level 3.3 g/dL (3.5-5.1); Anion Gap 15 mmol/L (8-16); Blood Urea Nitrogen 93 mg/dL (7-17); Calcium 8.1 mg/dL (8.4-10.2); Carbon Dioxide 20 mmol/L (22-30); Chloride 99 mmol/L (98-107); Estimated CRCL calculation 8 ml/min; Estimated Glomerular Filt Rate 8; Glucose 129 mg/dL (65-110); Phosphorus 5.6 mg/dL (2.5-4.5); Potassium 3.1 mmol/L (3.4-5.0); Sodium 134 mmol/L (137-145)
[2021-07-19] MEDS: METOPROLOL TARTRATE 25 MG TABLET 75 MG PO ×3 (05:31→20:52)
--- NOTE | 2021-07-19 06:54 | PM.PNNEP ---
Progress Note: A&P Assessment and Plan (1) Chronic kidney disease, unspecified: Code(s): N18.9 - Chronic kidney disease, unspecified Status: Acute Assessment and Plan: Dory has chronic kidney disease. We do not have any record of creatinine values before yesterday. most likely her chronic kidney disease is from hypertension. It is unclear whether there is an acute component to her kidney disease. Renal ultrasound does not show hydronephrosis but does show small kidneys. Urine electrolytes are non pre renal. Urinalysis shows protein and a little blood. She probably has a pre renal component to her renal disease cause by the atrial fibrillation. She has clear volume overload. It is unclear how well she is urinating but she says she is urinating a lot. Continue diuretics. Creatinine is up a little bit. Will see how she does with a couple of days of normal sinus rhythm. (2) Hypertension: Code(s): I10 - Essential (primary) hypertension Status: Acute Assessment and Plan: She has longstanding hypertension. Likely due to primary hyperaldosteronism. potassium is a little low. Will supplement. (3) Atrial fibrillation with rapid ventricular response: Code(s): I48.91 - Unspecified atrial fibrillation Status: Acute Assessment and Plan: Her heart rate is better. (4) CHF (congestive heart failure): Qualifiers: Heart failure chronicity: acute Heart failure type: unspecified Qualified Code(s): I50.9 - Heart failure, unspecified Code(s): I50.9 - Heart failure, unspecified Status: Acute Assessment and Plan: She has volume overload. She will get inc dose of diuretics. (5) Pleural effusion on right: Code(s): J90 - Pleural effusion, not elsewhere classified Status: Acute Assessment and Plan: She had a thoracentesis. We will see how these tests necktie turner. (6) Elevated LFTs: Code(s): R79.89 - Other specified abnormal findings of blood chemistry Status: Acute Assessment and Plan: Hepatitis studies negative so far. it may just be passive congestion. (7) Elevated troponin: Code(s): R77.8 - Other specified abnormalities of plasma proteins Status: Acute Assessment and Plan: These are mildly elevated and a relatively flat curve over time. This could be strain from the atrial fibrillation or could be from her kidney disease. Cardiology is on the case Subjective Date/time seen: 07/19/21 06:54 Interval history: the patient feels okay today. No chest pain or shortness of breath. Swelling is about the same Frequent unmeasured voids Exam Narrative: WDWN in NAD skin no rash head ncat lungs decreased breath sounds at the bases cor irreg irreg no rub abd BS+ nontender and soft ext 2+ bilateral edema. Objective Data Vital Signs Vital Signs: Vital Signs - 24 hr 07/18/21 08:00 07/18/21 08:57 07/18/21 10:00 Temperature 36.8 C Pulse Rate 139 H 154 H 116 H Respiratory Rate 20 Blood Pressure 132/116 H Pulse Oximetry 100 07/18/21 12:00 07/18/21 12:36 07/18/21 14:00 Temperature 36.7 C Pulse Rate 116 H 138 H 123 H Respiratory Rate 18 Blood Pressure 109/84 Pulse Oximetry 98 07/18/21 16:00 07/18/21 17:53 07/18/21 19:42 Temperature 36.4 C 36.5 C Pulse Rate 96 101 H 127 H Respiratory Rate 18 18 Blood Pressure 119/75 119/85 Pulse Oximetry 100 100 07/18/21 20:00 07/18/21 21:35 07/18/21 22:00 Temperature Pulse Rate 130 H 147 H 127 H Respiratory Rate Blood Pressure Pulse Oximetry 07/19/21 00:00 07/19/21 02:00 07/19/21 04:00 Temperature 36.6 C 36.7 C Pulse Rate 131 H 133 H 110 H Respiratory Rate 20 18 Blood Pressure 135/89 139/91 H Pulse Oximetry 98 99 07/19/21 05:31 07/19/21 06:00 Temperature Pulse Rate 122 H 110 H Respiratory Rate Blood Pressure Pulse Oximetry Intake/Output Int
[2021-07-19] MEDS: BUMETANIDE INJ 1 MG/4 ML VIAL 2 MG IV PUSH ×2 (08:42→18:48)
[2021-07-19] MEDS: metOLazone 5 MG TABLET PO (08:43)
[2021-07-19] MEDS: POTASSIUM CHLORIDE 20 MEQ TABLET.ER PO (08:43)
[2021-07-19] MEDS: FERROUS SULFATE 324 MG TABLET PO (08:43)
--- NOTE | 2021-07-19 11:53 | PM.PNCARD ---
Progress Note: A&P Assessment and Plan (1) Atrial fibrillation with rapid ventricular response: Code(s): I48.91 - Unspecified atrial fibrillation <RICHARD Viramontes - Last Filed: 07/19/21 14:05> Status: Acute <RICHARD Viramontes - Last Filed: 07/19/21 14:05> Assessment and Plan: This seems to be a new problem-she does not recall having any history of atrial fibrillation. She is currently on diltiazem 240 mg p.o. daily and metoprolol 50 mg p.o. b.i.d. for rate control. Her rate is generally not well controlled. Despite this, she is not symptomatic. At this point we have not been able to successfully rate control her with diltiazem and metoprolol. Need to consider LAUREEN cardioversion, but given that she will be committed to a/c for at least one month following this, want to avoid any chance for a/c inturruption (in particular with HD catheter placement). Discussed with Dr. Dubois. Awaiting records from PCP to help guide decision re: need for initiating HD. Further recommendations will be forthcoming with this information and with further discussion with nephrology. Continue current doses of diltiazem and metoprolol for now Continue anticoagulation with heparin for now in anticipation of possible hemodialysis catheter placement. Will switch to DOAC at some point. Continue to monitor on telemetry <RICHARD Viramontes - Last Filed: 07/19/21 14:05> (2) CHF (congestive heart failure): Qualifiers: Heart failure chronicity: acute Heart failure type: unspecified Qualified Code(s): I50.9 - Heart failure, unspecified <RICHARD Viramontes - Last Filed: 07/19/21 14:05> Code(s): I50.9 - Heart failure, unspecified <RICHARD Viramontes - Last Filed: 07/19/21 14:05> Status: Acute <RICHARD Viramontes - Last Filed: 07/19/21 14:05> Assessment and Plan: Presented with volume overload in the form of lower extremity edema and shortness of breath. She was found to have a large pleural effusion that was drained. Her shortness of breath has resolved following this procedure and with administration of IV diuretics. She does still have significant BLE. Her diuretics have been increased. Continue Bumex 2 mg IV b.i.d. Continue metolazone 5mg daily Echocardiogram showed severely reduced left ventricular systolic function, EF 20-25%. Severe biatrial dilation. Compression stockings Low-sodium diet Daily weights Monitor renal function and electrolytes with daily BMP <RICHARD Viramontes - Last Filed: 07/19/21 14:05> (3) Acute renal failure superimposed on chronic kidney disease: Qualifiers: Acute renal failure type: unspecified Chronic kidney disease stage: unspecified stage Qualified Code(s): N17.9 - Acute kidney failure, unspecified; N18.9 - Chronic kidney disease, unspecified <RICHARD Viramontes - Last Filed: 07/19/21 14:05> Code(s): N17.9 - Acute kidney failure, unspecified; N18.9 - Chronic kidney disease, unspecified <RICHARD Viramontes - Last Filed: 07/19/21 14:05> Status: Acute <RICHARD Viramontes - Last Filed: 07/19/21 14:05> Assessment and Plan: CKD stage 5 with creatinine now 6.40. Nephrology has been consulted and the idea hemodialysis has been discussed with her. Appreciate Nephrology involvement and input. <RICHARD Viramontes - Last Filed: 07/19/21 14:05> (4) Hypertension: Code(s): I10 - Essential (primary) hypertension <RICHARD Viramontes - Last Filed: 07/19/21 14:05> Status: Acute <RICHARD Viramontes - Last Filed: 07/19/21 14:05> Assessment and Plan: Longstanding history of hypertension that apparently has been difficult to control. <RICHARD Viramontes - Last Filed: 07/19/21 14:05> Additional Plan Attending Addendum: I personally seen and examined this patient at bedside. I agree with the above documentation and
--- NOTE | 2021-07-19 12:16 | PM.IMPN ---
Progress Note: A&P Assessment and Plan (1) Chronic kidney disease, unspecified: Code(s): N18.9 - Chronic kidney disease, unspecified Status: Acute Assessment and Plan: # ESRD, CKD stage 5 -nephrology consulted -creatinine elevated 6.10, GFR 10 -currently patient presents with peripheral lower extremity edema and is being diuresed. She is status post thoracentesis. Electrolytes are within acceptable range. There is no indication for renal replacement therapy. However she has advanced kidney disease and need to establish specialized care with Nephrology. Preserve upper extremity vasculature in this patient who may require renal replacement therapy in her lifestyle. Avoid PICC line, peripheral line in non dominant arm. This is an evidence based guideline. -renal ultrasound shows mild to moderate renal atrophy, mild left hydronephrosis, also stigmata of chronic kidney disease. (2) Acute renal failure superimposed on chronic kidney disease: Qualifiers: Acute renal failure type: unspecified Chronic kidney disease stage: unspecified stage Qualified Code(s): N17.9 - Acute kidney failure, unspecified; N18.9 - Chronic kidney disease, unspecified Code(s): N17.9 - Acute kidney failure, unspecified; N18.9 - Chronic kidney disease, unspecified Status: Acute Assessment and Plan: It is unclear if the patient present with acute kidney injury in the setting of advance kidney disease. Certainly kidney imaging reveals small kidneys, suggesting chronic kidney disease. Psychological preparation for dialysis. Check iron stores and consider erythropoietin stimulating agents. Target hemoglobin of 10. (3) Atrial fibrillation with rapid ventricular response: Code(s): I48.91 - Unspecified atrial fibrillation Status: Acute Assessment and Plan: # AFib with RVR # CHF exacerbation -AFib likely secondary to fluid overload -rate control: Metoprolol 50 mg q.12 hours, diltiazem 240 mg daily. -anticoagulation: Heparin drip; plan to transition to NOAC at the time of discharge. -goal keep potassium greater than 4, magnesium greater than 2, patient was started on 20 mEq potassium supplement daily -appreciate cardiology consult -with fluid overload nephrology consulted, Bumex 1 mg b.i.d. started -echocardiogram ordered -we are doing Bumex now, at home was on furosemide 20 mg daily, apparently own 50 mg b.i.d., metoprolol succinate 100 mg daily (4) CHF (congestive heart failure): Qualifiers: Heart failure chronicity: acute Heart failure type: unspecified Qualified Code(s): I50.9 - Heart failure, unspecified Code(s): I50.9 - Heart failure, unspecified Status: Acute Assessment and Plan: # elevated troponin -0.165 likely secondary to AFib RVR, no chest pain. Currently the patient responding to diuresis with improvement of. Maintain leg elevation. Daily weight. Low-sodium diet. Monitor kidney function and electrolytes closely.Continue Bumex 2 mg IV b.i.d. Continue metolazone 5mg daily (5) Community acquired pneumonia: Code(s): J18.9 - Pneumonia, unspecified organism Status: Acute Assessment and Plan: # sepsis, possible pneumonia -antibiotic: Rocephin, azithromycin -afebrile, WBC up to 11.4. -chest x-ray is read as possible superimposed pneumonia -blood cultures no growth today (6) Pleural effusion on right: Code(s): J90 - Pleural effusion, not elsewhere classified Status: Acute (7) Acute renal failure: Code(s): N17.9 - Acute kidney failure, unspecified Status: Acute (8) Hypertension: Code(s): I10 - Essential (primary) hypertension Status: Acute Assessment and Plan: # essential hypertension -continue home nifedipine 90 mg daily, held home metoprolol succinate, furosemide, eplerenone; -Continue Bumex 2 mg IV b.i.d. -Continue metolazone 5mg daily -nephrology consulted. Appreciate their recomm
[2021-07-19] MEDS: POTASSIUM CHLORIDE 20 MEQ TABLET PO (12:22)
[2021-07-19] MEDS: HEPARIN SOD/D5W 100 UNITS/ML 25,000 UNITS/250 ML BAG 11 UNITS IV CONT (13:22)
[2021-07-20] VITALS (15 sets, daily range): BP systolic 95–131; BP diastolic 73–99; PULSE 56–148; RESP 18–118; TEMP 36.1–36.6; O2SAT 96–100
[2021-07-20] MEDS: METOPROLOL TARTRATE 25 MG TABLET 75 MG PO (05:24)
[2021-07-20 09:02] LABS: Basophils Percent Auto 0.2 % (0.2-1.2); Eosinophils Absolute Auto 0.1 K/mm3 (0-0.3); Eosinophils Percent Auto 0.8 % (0-4.4); Hematocrit 33.3 % (37.0-47.0); Hemoglobin 10.4 g/dL (12.0-15.0); Immature Granulocyte Absolute 0.07 K/mm3 (0.00-0.031); Immature Granulocyte Percent A 0.6 % (0-0.5); Lymphocytes Percent Auto 4.3 % (18.3-44.2); Mean Corpuscular HGB Conc 31.2 g/dl (32-36); Mean Corpuscular Hemoglobin 26.3 pg (26-34); Mean Corpuscular Volume 84.3 fl (80-100); Monocytes Absolute Auto 0.7 K/mm3 (0.1-0.6); Monocytes Percent Auto 6.3 % (2.6-8.5); Neutrophils Absolute Auto 10.2 K/mm3 (1.3-6.7); Neutrophils Percent Auto 87.8 % (45.5-73.1); Platelet Count Result 355 k/mm3 (150-375); Red Blood Count 3.95 M/mm3 (4.2-5.4); Red Cell Distribution Width 17.7 % (11.5-14.5); White Blood Count 11.6 K/mm3 (4.5-10.0)
[2021-07-20] MEDS: metOLazone 5 MG TABLET PO (09:04)
[2021-07-20] MEDS: BUMETANIDE INJ 1 MG/4 ML VIAL 2 MG IV PUSH ×2 (09:04→17:19)
[2021-07-20] MEDS: POTASSIUM CHLORIDE 20 MEQ TABLET.ER PO (09:05)
[2021-07-20] MEDS: POTASSIUM CHLORIDE 20 MEQ TABLET PO (09:05)
[2021-07-20] MEDS: FERROUS SULFATE 324 MG TABLET PO (09:05)
--- NOTE | 2021-07-20 09:06 | PM.PNCARD ---
Progress Note: A&P Assessment and Plan (1) Atrial fibrillation with rapid ventricular response: Code(s): I48.91 - Unspecified atrial fibrillation Status: Acute Assessment and Plan: New diagnosis. She is currently on diltiazem 240 mg p.o. daily and metoprolol 50 mg p.o. b.i.d. for rate control. Her rate is generally not well controlled. Despite this, she is not symptomatic. At this point we have not been able to successfully rate control her with diltiazem and metoprolol. Advised LAUREEN cardioversion, but given that she will be committed to a/c want to minimize interruption in systemic anticoagulation (in particular with HD catheter placement). However, this must be coupled with bleeding risk with PermCath hemodialysis catheter placement as discussed with Dr. Dubois this morning. We agreed she would benefit from restoring sinus rhythm from a cardiac perspective and potentially with regards to renal perfusion but I was asked to hold off on proceeding with LAUREEN guided cardioversion today due to significant risk for bleeding with hemodialysis catheter placement. Anticipate proceeding with LAUREEN guided cardioversion later this week with okay from Nephrology. While we want to avoid diltiazem little choice with regards to rate control options as intracardiac thrombus status remains unknown. Will resume diltiazem 240 mg daily and increase metoprolol tartrate to 100 mg q.8 hours as BP permits. Patient remains asymptomatic with regards to her AFib at this time and hemodynamically stable. Continue anticoagulation with heparin for now in anticipation of possible hemodialysis catheter placement. Will switch to oral anticoagulation in the future when appropriate. Continue to monitor on telemetry Discussed at length with the patient who verbalized understanding and agreed with plan of care. Explained the difficult balance in management and timing and my preference to restore sinus rhythm as soon is it is reasonable particularly given her cardiomyopathy, heart failure and renal failure. She understands this difficult situation and agrees with our recommendations. We also previously discussed the likelihood she may require antiarrhythmic therapy such as amiodarone to either improved or maintain sinus rhythm post cardioversion. Her atrial enlargement may also reduce likelihood of success at restoring or maintaining sinus rhythm. (2) CHF (congestive heart failure): Qualifiers: Heart failure chronicity: acute Heart failure type: unspecified Qualified Code(s): I50.9 - Heart failure, unspecified Code(s): I50.9 - Heart failure, unspecified Status: Acute Assessment and Plan: Presented with volume overload in the form of lower extremity edema and shortness of breath. She was found to have a large pleural effusion that was drained. Her shortness of breath has resolved following this procedure and with administration of IV diuretics. She does still have significant BLE. Her diuretics have been increased. Continue Bumex 2 mg IV b.i.d. Continue metolazone 5mg daily Echocardiogram with new severe LV systolic dysfunction, EF 20-25%. Moderate LV enlargement with moderate concentric left ventricular hypertrophy. Severe biatrial dilation. Compression stockings Low-sodium diet Daily weights Monitor renal function and electrolytes with daily BMP (3) Acute renal failure superimposed on chronic kidney disease: Qualifiers: Acute renal failure type: unspecified Chronic kidney disease stage: unspecified stage Qualified Code(s): N17.9 - Acute kidney failure, unspecified; N18.9 - Chronic kidney disease, unspecified Code(s): N17.9 - Acute kidney failure, unspecified; N18.9 - Chronic kidney disease, unspecified Status: Acute Assessment and Plan: CKD stage 5 with creatinine now 6.40. Labs pending for today. As above, Nephrology following and we appreciate their recommendations and involvement. Stephan
[2021-07-20 09:13] LABS: Partial Thromboplastin Time 75.7 SECONDS (22.3-36.8)
[2021-07-20 09:17] LABS: Anion Gap 17 mmol/L (8-16); Blood Urea Nitrogen 98 mg/dL (7-17); Calcium 8.8 mg/dL (8.4-10.2); Carbon Dioxide 19 mmol/L (22-30); Chloride 98 mmol/L (98-107); Estimated CRCL calculation 9 ml/min; Estimated Glomerular Filt Rate 8; Glucose 112 mg/dL (65-110); Potassium 3.2 mmol/L (3.4-5.0); Sodium 134 mmol/L (137-145)
--- NOTE | 2021-07-20 10:28 | PM.IMPN ---
Progress Note: A&P Assessment and Plan (1) Chronic kidney disease, unspecified: Code(s): N18.9 - Chronic kidney disease, unspecified Status: Acute Assessment and Plan: # ESRD, CKD stage 5 -currently being monitored closely by Nephrology. -creatinine elevated 6.10, GFR 10 -currently patient presents with peripheral lower extremity edema and is being diuresed. She is status post thoracentesis. Electrolytes are within acceptable range. There is no indication for renal replacement therapy. However she has advanced kidney disease and need to establish specialized care with Nephrology. Preserve upper extremity vasculature in this patient who may require renal replacement therapy in her lifetime. History indication for dialysis.. Avoid PICC line, peripheral line in non dominant arm. Renal ultrasound shows mild to moderate renal atrophy, mild left hydronephrosis, also stigmata of chronic kidney disease and confirming the chronicity of the kidney disease.. (2) Acute renal failure superimposed on chronic kidney disease: Qualifiers: Acute renal failure type: unspecified Chronic kidney disease stage: unspecified stage Qualified Code(s): N17.9 - Acute kidney failure, unspecified; N18.9 - Chronic kidney disease, unspecified Code(s): N17.9 - Acute kidney failure, unspecified; N18.9 - Chronic kidney disease, unspecified Status: Acute Assessment and Plan: It is unclear if the patient present with acute kidney injury in the setting of advance kidney disease. Certainly kidney imaging reveals small kidneys, suggesting chronic kidney disease. Psychological preparation for dialysis. Check iron stores and consider erythropoietin stimulating agents. Target hemoglobin of 10. Save nondominant arm for future access. There is no emergent indication for dialysis as of today. (3) Atrial fibrillation with rapid ventricular response: Code(s): I48.91 - Unspecified atrial fibrillation Status: Acute Assessment and Plan: # AFib with RVR # CHF exacerbation -AFib likely secondary to fluid overload -rate control: Metoprolol 50 mg q.12 hours, diltiazem 240 mg daily. -anticoagulation: Heparin drip; plan to transition to NOAC at the time of discharge. -cardiology considering DC cardioversion. However due to possible need for renal replacement therapy, this pain is currently on hold. -goal keep potassium greater than 4, magnesium greater than 2, patient was started on 20 mEq potassium supplement daily -appreciate cardiology consult -with fluid overload nephrology consulted, Bumex 1 mg b.i.d. started -echocardiogram ordered -we are doing Bumex now, at home was on furosemide 20 mg daily, apparently own 50 mg b.i.d., metoprolol succinate 100 mg daily (4) CHF (congestive heart failure): Qualifiers: Heart failure chronicity: acute Heart failure type: unspecified Qualified Code(s): I50.9 - Heart failure, unspecified Code(s): I50.9 - Heart failure, unspecified Status: Acute Assessment and Plan: # elevated troponin -0.165 likely secondary to AFib RVR, no chest pain. Currently the patient responding to diuresis with improvement of. Maintain leg elevation. Daily weight. Low-sodium diet. Monitor kidney function and electrolytes closely.Continue Bumex 2 mg IV b.i.d. Continue metolazone 5mg daily (5) Community acquired pneumonia: Code(s): J18.9 - Pneumonia, unspecified organism Status: Acute Assessment and Plan: # sepsis, possible pneumonia -antibiotic: Rocephin, azithromycin -afebrile, WBC up to 11.4. -chest x-ray is read as possible superimposed pneumonia -blood cultures no growth today (6) Pleural effusion on right: Code(s): J90 - Pleural effusion, not elsewhere classified Status: Acute Assessment and Plan: Follow-up pleural fluid studies. (7) Acute renal failure: Code(s): N17.9 - Acute kidney failure, unspecified S
--- NOTE | 2021-07-20 11:56 | PM.PNNEP ---
Progress Note: A&P Assessment and Plan (1) Chronic kidney disease, unspecified: Code(s): N18.9 - Chronic kidney disease, unspecified Status: Acute Assessment and Plan: Dory has chronic kidney disease. We do not have any record of creatinine values before yesterday. most likely her chronic kidney disease is from hypertension. It is unclear whether there is an acute component to her kidney disease. Renal ultrasound does not show hydronephrosis but does show small kidneys. Urine electrolytes are non pre renal. Urinalysis shows protein and a little blood. long discussion with Dr. Rainey He has tried multiple ways to bring her heart rate down but these have failed. Her heart rate is still quite fast. He thinks cardioversion is the best way to go. If so she would need to be on anticoagulants for a month. This presents a problem because she is going to need access for dialysis. I had a long discussion with the patient as well. Her creatinine keeps rising. It is above 6 the last 3 days. Although she does not have any symptoms , however she is volume overloaded and she is on maximum doses of diuretics without much of an on mentation in her urine output. Her kidneys are small on ultrasound so I think overall it is unlikely that she is going to recover much function even if she goes into sinus rhythm. Considering the above discussion with Dr. Shen, I think we ought to go ahead and put a PermCath in so the way have access for dialysis. Then the patient can get her LAUREEN and cardioversion the following day and start anticoagulated and lessen the likelihood of bleeding from the PermCath. There would be some chance of course but it would be much lower than trying to do it while anticoagulated or even during a short window of deanticoagulation. the patient saw that this was coming and agrees to proceed. We also discussed the risks benefits and alternatives and the process of hemodialysis. She agrees to this as well. Depending on what time her catheter goes in tomorrow we may do dialysis tomorrow or it may wait till Sunday or Sunday depending on the cardiac procedure. Continue diuretics. [address] Shen, the patient, and surgery. (2) Hypertension: Code(s): I10 - Essential (primary) hypertension Status: Acute Assessment and Plan: She has longstanding hypertension. Likely due to primary hyperaldosteronism. potassium is a little low. This was supplemented by Dr. Barrera (3) Atrial fibrillation with rapid ventricular response: Code(s): I48.91 - Unspecified atrial fibrillation Status: Acute Assessment and Plan: Her heart rate is better. (4) CHF (congestive heart failure): Qualifiers: Heart failure chronicity: acute Heart failure type: unspecified Qualified Code(s): I50.9 - Heart failure, unspecified Code(s): I50.9 - Heart failure, unspecified Status: Acute Assessment and Plan: She has volume overload. She will get inc dose of diuretics. management as above (5) Pleural effusion on right: Code(s): J90 - Pleural effusion, not elsewhere classified Status: Acute Assessment and Plan: She had a thoracentesis. We will see how these tests collar turner. (6) Elevated LFTs: Code(s): R79.89 - Other specified abnormal findings of blood chemistry Status: Acute Assessment and Plan: Hepatitis studies negative so far. it may just be passive congestion. (7) Elevated troponin: Code(s): R77.8 - Other specified abnormalities of plasma proteins Status: Acute Assessment and Plan: These are mildly elevated and a relatively flat curve over time. This could be strain from the atrial fibrillation or could be from her kidney disease. Cardiology is on the case Subjective Date/time seen: 07/20/21 17:56 Interval history: the patient feels okay today. she is sti
[2021-07-20] MEDS: HEPARIN SOD/D5W 100 UNITS/ML 25,000 UNITS/250 ML BAG 11 UNITS IV CONT (12:09)
--- NOTE | 2021-07-20 13:32 | PM.CNGS ---
Assessment and Plan Assessment and plan (1) Acute renal failure superimposed on chronic kidney disease: Qualifiers: Acute renal failure type: unspecified Chronic kidney disease stage: unspecified stage Qualified Code(s): N17.9 - Acute kidney failure, unspecified; N18.9 - Chronic kidney disease, unspecified Code(s): N17.9 - Acute kidney failure, unspecified; N18.9 - Chronic kidney disease, unspecified Status: Acute Assessment and Plan: Patient will be needing hemodialysis. Plan to place tunneled central venous catheter for dialysis tomorrow. The earliest operating time I could get was 2:00 p.m.. Plan to proceed under anesthesia with tunneled dialysis catheter under fluoroscopy. (2) Encounter for fitting and adjustment of vascular catheter: Code(s): Z45.2 - Encounter for adjustment and management of vascular access device Status: Acute Assessment and Plan: See above (3) Atrial fibrillation with rapid ventricular response: Code(s): I48.91 - Unspecified atrial fibrillation Status: Acute Assessment and Plan: cardioversion planned in 2 days. (4) Chronic anticoagulation: Code(s): Z79.01 - assisted (current) use of anticoagulants Status: Acute Assessment and Plan: Will stop heparin drip 6 hours prior to procedure tomorrow. (5) CHF (congestive heart failure): Qualifiers: Heart failure chronicity: acute Heart failure type: unspecified Qualified Code(s): I50.9 - Heart failure, unspecified Code(s): I50.9 - Heart failure, unspecified Status: Acute Assessment and Plan: Related to atrial fibrillation and end-stage renal disease. History of Present Illness Consult details Consult date: 07/20/21 Requesting physician: Mookie Dubois MD Narrative: Request tunneled dialysis catheter placement per Nephrology for hemodialysis. Patient plan to have cardioversion on 07/22/2021. Requested placement of tunneled catheter on 07/21/2021, tomorrow. Patient continues to have atrial fibrillation and is currently on therapeutic dose of IV heparin. End-stage renal disease appears to be chronic although some component of acute kidney injury may have been precipitated by poor cardiac output associated with the atrial fibrillation. Per Nephrology, she has volume overload and congestive heart failure. Four days ago she had an ultrasound-guided thoracentesis draining 700 cc of clear fluid from the right pleural space. [facility] Past Medical History Medical History (Updated 07/20/21 @ 13:40 by Britton Coleman MD) Chronic kidney disease Chronic kidney disease, unspecified Hypertension Surgical History Surgical History History of History of tonsillectomy Family History Family History Father CAD (coronary artery disease) Mother Hypertension Social History Social History Social History: The patient lives at home with her daughter and mother. 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 She used to smoke half a pack of cigarettes per day but quit smoking in 2018. She has 20 pack per year smoking history. She used to drink 1-2 beers a day every day but quit doing so several years ago. She now drinks 1 beer on rare occasion. She denies any illicit substance use. Primary care provider: Brandie Rhoades [employer] Code status: Full code Surrogate decision maker: Daughter Smoking packs per day: 0.5 Smoking cigarettes per day: 10.0 Years smoked: 40 Smoking pack-years: 20.00 Smoking status: Former smoker Tobacco type: cigarettes Alcohol intake: current Drinks per week: 1 Substance use: never Spiritual care concerns: No Meds Home Medications and Allergies Home Medications Medication Instructions Recorded Confirmed Type e
[2021-07-20] MEDS: METOPROLOL TARTRATE 50 MG TAB 100 MG PO ×2 (13:48→21:01)
[2021-07-21] VITALS (23 sets, daily range): BP systolic 106–163; BP diastolic 80–102; PULSE 84–144; RESP 14–20; TEMP 36.2–36.9; O2SAT 93–100
[2021-07-21 05:16] LABS: Hematocrit 32.8 % (37.0-47.0); Hemoglobin 10.1 g/dL (12.0-15.0); Mean Corpuscular HGB Conc 30.8 g/dl (32-36); Mean Corpuscular Hemoglobin 25.9 pg (26-34); Mean Corpuscular Volume 84.1 fl (80-100); Mean Platelet Volume 11.4 fl (7.4-10.4); Platelet Count Result 339 k/mm3 (150-375); Red Cell Distribution Width 17.6 % (11.5-14.5); White Blood Count 9.8 K/mm3 (4.5-10.0)
[2021-07-21 05:30] LABS: Anion Gap 15 mmol/L (8-16); Blood Urea Nitrogen 101 mg/dL (7-17); Calcium 8.2 mg/dL (8.4-10.2); Carbon Dioxide 20 mmol/L (22-30); Chloride 98 mmol/L (98-107); Estimated CRCL calculation 9 ml/min; Estimated Glomerular Filt Rate 8; Glucose 133 mg/dL (65-110); Partial Thromboplastin Time 60.1 SECONDS (22.3-36.8); Potassium 3.3 mmol/L (3.4-5.0); Sodium 133 mmol/L (137-145)
[2021-07-21] MEDS: METOPROLOL TARTRATE 50 MG TAB 100 MG PO ×3 (05:49→22:27)
[2021-07-21 06:35] LABS: Iron 18 ug/dL (37-170)
[2021-07-21 06:45] LABS: Percent Iron Saturation 6 % (20-50)
--- NOTE | 2021-07-21 07:48 | PM.PNNEP ---
Progress Note: A&P Assessment and Plan (1) Chronic kidney disease, unspecified: Code(s): N18.9 - Chronic kidney disease, unspecified Status: Acute Assessment and Plan: Dory has chronic kidney disease. renal function continues to deteriorate. The patient is going to get a PermCath today. Then cardioversion tomorrow. Then start dialysis on Sunday. Continue diuretics. (2) Hypertension: Code(s): I10 - Essential (primary) hypertension Status: Acute Assessment and Plan: She has longstanding hypertension. Likely due to primary hyperaldosteronism. potassium is a little low. Will restart the spironolactone (3) Atrial fibrillation with rapid ventricular response: Code(s): I48.91 - Unspecified atrial fibrillation Status: Acute Assessment and Plan: Her heart rate is better. (4) CHF (congestive heart failure): Qualifiers: Heart failure chronicity: acute Heart failure type: unspecified Qualified Code(s): I50.9 - Heart failure, unspecified Code(s): I50.9 - Heart failure, unspecified Status: Acute Assessment and Plan: She has volume overload. she is getting a LAUREEN and possible cardioversion tomorrow. management as above (5) Pleural effusion on right: Code(s): J90 - Pleural effusion, not elsewhere classified Status: Acute Assessment and Plan: She had a thoracentesis. We will see how these tests returned goods receiving clerk. (6) Elevated LFTs: Code(s): R79.89 - Other specified abnormal findings of blood chemistry Status: Acute Assessment and Plan: Hepatitis studies negative so far. it may just be passive congestion. (7) Elevated troponin: Code(s): R77.8 - Other specified abnormalities of plasma proteins Status: Acute Assessment and Plan: These are mildly elevated and a relatively flat curve over time. This could be strain from the atrial fibrillation or could be from her kidney disease. Cardiology is on the case Subjective Date/time seen: 07/21/21 14:48 Interval history: the patient feels okay today. still swollen but she feels like it is better. She still is not making very much urine Exam Narrative: WDWN in NAD skin no rash head ncat lungs decreased breath sounds at the bases cor irreg irreg no rub abd BS+ nontender ext 2+ bilateral edema. Objective Data Vital Signs Vital Signs: Vital Signs - 24 hr 07/20/21 16:00 07/20/21 19:45 07/20/21 20:00 Temperature 36.4 C 36.6 C Pulse Rate 56 L 130 H 130 H Respiratory Rate 18 20 Blood Pressure 95/73 L 103/83 Pulse Oximetry 100 97 99 07/20/21 22:00 07/20/21 23:22 07/21/21 00:00 Temperature 36.5 C Pulse Rate 122 H 146 H 141 H Respiratory Rate 118 H Blood Pressure 120/95 H Pulse Oximetry 99 99 07/21/21 02:00 07/21/21 04:00 07/21/21 06:00 Temperature 36.6 C Pulse Rate 120 H 126 H 112 H Respiratory Rate 20 Blood Pressure 106/83 Pulse Oximetry 97 07/21/21 08:00 07/21/21 08:23 07/21/21 10:00 Temperature 36.5 C Pulse Rate 84 98 115 H Respiratory Rate 20 Blood Pressure 109/89 Pulse Oximetry 100 07/21/21 12:07 07/21/21 12:37 07/21/21 12:48 Temperature 36.9 C Pulse Rate 128 H 120 H 129 H Respiratory Rate 18 18 Blood Pressure 125/82 115/95 H Pulse Oximetry 94 07/21/21 12:53 Temperature Pulse Rate 130 H Respiratory Rate Blood Pressure Pulse Oximetry Intake/Output Intake/Output: Intake & Output 07/18/21 07/19/21 07/20/21 07/21/21 23:59 23:59 23:59 23:59 Intake Total 1150 1255 1000 300 Output Total 2 700 1450 700 Balance 1140 450 -172 -641 Meds/Results Medications: Active Medications Generic Name Dose Route Start Last Admin Trade Name Jarochoq PRN Reason Stop Dose Admin Bumetanide 2 mg 07/18/21 17:00 07/21/21 10:17 Bumetanide Inj 1 Mg/4 Ml Vial IV PUSH 2 mg BID KELLEN Administration Diltiazem HCl 240 mg 0
--- NOTE | 2021-07-21 08:36 | PM.PNCARD ---
Progress Note: A&P Assessment and Plan (1) Atrial fibrillation with rapid ventricular response: Code(s): I48.91 - Unspecified atrial fibrillation <RICHARD Viramontes - Last Filed: 07/21/21 13:07> Status: Acute <Jia A. KishaRICHARD smith - Last Filed: 07/21/21 13:07> Assessment and Plan: New diagnosis. She is currently on diltiazem 240 mg p.o. daily and metoprolol 50 mg p.o. b.i.d. for rate control. Her rate is generally not well controlled. Despite this, she is not symptomatic. At this point we have not been able to successfully rate control her with diltiazem and metoprolol. Discussed plan to proceed with LAUREEN cardioversion tomorrow. Continue diltiazem 240mg daily, metoprolol 100mg q8h for now. Will hold diltiazem prior to CV tomorrow. Continue anticoagulation with heparin for now in anticipation of possible hemodialysis catheter placement. Will switch to oral anticoagulation in the future when appropriate. Continue to monitor on telemetry <RICHARD Viramontes - Last Filed: 07/21/21 13:07> (2) CHF (congestive heart failure): Qualifiers: Heart failure chronicity: acute Heart failure type: unspecified Qualified Code(s): I50.9 - Heart failure, unspecified <RICHARD Viramontes - Last Filed: 07/21/21 13:07> Code(s): I50.9 - Heart failure, unspecified <RICHARD Viramontes - Last Filed: 07/21/21 13:07> Status: Acute <RICHARD Viramontes - Last Filed: 07/21/21 13:07> Assessment and Plan: Presented with volume overload in the form of lower extremity edema and shortness of breath. She was found to have a large pleural effusion that was drained. Her shortness of breath has resolved following this procedure and with administration of IV diuretics. She does still have significant BLE. Her diuretics have been increased. Continue Bumex 2 mg IV b.i.d. Continue metolazone 5mg daily Echocardiogram with new severe LV systolic dysfunction, EF 20-25%. Moderate LV enlargement with moderate concentric left ventricular hypertrophy. Severe biatrial dilation. Compression stockings Low-sodium diet Daily weights Monitor renal function and electrolytes with daily BMP <RICHARD Viramontes - Last Filed: 07/21/21 13:07> (3) Acute renal failure superimposed on chronic kidney disease: Qualifiers: Acute renal failure type: unspecified Chronic kidney disease stage: unspecified stage Qualified Code(s): N17.9 - Acute kidney failure, unspecified; N18.9 - Chronic kidney disease, unspecified <RICHARD Viramontes - Last Filed: 07/21/21 13:07> Code(s): N17.9 - Acute kidney failure, unspecified; N18.9 - Chronic kidney disease, unspecified <RICHARD Viramontes - Last Filed: 07/21/21 13:07> Status: Acute <RICHARD Viramontes - Last Filed: 07/21/21 13:07> Assessment and Plan: CKD stage 5 with creatinine now 6.20. Plan for patient to have HD catheter placed this afternoon. Hopefully she will be able to get dialyzed this afternoon as well. Nephrology following. <RICHARD Viramontes - Last Filed: 07/21/21 13:07> (4) Hypertension: Code(s): I10 - Essential (primary) hypertension <RICHARD Viramontes - Last Filed: 07/21/21 13:07> Status: Acute <RICHARD Viramontes - Last Filed: 07/21/21 13:07> Assessment and Plan: Longstanding history of hypertension that apparently has been difficult to control. <RICHARD Viramontes - Last Filed: 07/21/21 13:07> Additional Plan 07/21/20 Attending Addendum: I personally seen and examined this patient at bedside. I agree with the above documentation and plan of care as outlined. -patient remains in atrial fibrillation with rapid ventricular response, heart rate poorly controlled overall. Patient states she feels okay. She is scheduled for tunneled hemodialysis catheter placement this afternoon. She continues to deny palpitat
--- NOTE | 2021-07-21 09:29 | PM.IMPN ---
Progress Note: A&P Assessment and Plan (1) Chronic kidney disease, unspecified: Code(s): N18.9 - Chronic kidney disease, unspecified Status: Acute Assessment and Plan: # ESRD, CKD stage 5 -currently being monitored closely by Nephrology. -creatinine elevated 6.10, GFR 10 -currently patient shows persistent peripheral lower extremity edema despite aggressive diuresis. She is status post thoracentesis. Electrolytes are within acceptable range. There is no emergent indication for renal replacement therapy. However she has advanced kidney disease, has persistent fluid overload despite aggressive IV diuresis. Patient has been started on dialysis indicated for refractory fluid overload. Preserve upper extremity vasculature for dialysis access. Avoid PICC line, peripheral line in non dominant arm. Renal ultrasound shows mild to moderate renal atrophy, mild left hydronephrosis, also stigmata of chronic kidney disease and confirming the chronicity of the kidney disease. Plan to place PermCath today per Nephrology. Plan to start dialysis tomorrow. (2) Acute renal failure superimposed on chronic kidney disease: Qualifiers: Acute renal failure type: unspecified Chronic kidney disease stage: unspecified stage Qualified Code(s): N17.9 - Acute kidney failure, unspecified; N18.9 - Chronic kidney disease, unspecified Code(s): N17.9 - Acute kidney failure, unspecified; N18.9 - Chronic kidney disease, unspecified Status: Acute Assessment and Plan: It is unclear if the patient present with acute kidney injury in the setting of advance kidney disease. Certainly kidney imaging reveals small kidneys, suggesting chronic kidney disease. Psychological preparation for dialysis. Check iron stores and consider erythropoietin stimulating agents. Target hemoglobin of 10. Save nondominant arm for future access. Patient will be initiated on hemodialysis for management of refractory fluid overload. (3) Atrial fibrillation with rapid ventricular response: Code(s): I48.91 - Unspecified atrial fibrillation Status: Acute Assessment and Plan: # AFib with RVR # CHF exacerbation -AFib likely secondary to fluid overload -rate control: Metoprolol 50 mg q.12 hours, diltiazem 240 mg daily. -anticoagulation: Heparin drip; plan to transition to NOAC at the time of discharge. -cardiology considering DC cardioversion. However due to possible need for renal replacement therapy, which would necessitate PermCath placement; -goal keep potassium greater than 4, magnesium greater than 2, patient was started on 20 mEq potassium supplement daily -appreciate cardiology consult -with fluid overload nephrology consulted, currently patient is receiving Bumex 2 mg IV b.i.d.. She may close 1 L of urine overnight. -echocardiogram ordered -we are doing Bumex now, at home was on furosemide 20 mg daily, apparently own 50 mg b.i.d., metoprolol succinate 100 mg daily (4) CHF (congestive heart failure): Qualifiers: Heart failure chronicity: acute Heart failure type: unspecified Qualified Code(s): I50.9 - Heart failure, unspecified Code(s): I50.9 - Heart failure, unspecified Status: Acute Assessment and Plan: # elevated troponin -0.165 likely secondary to AFib RVR, no chest pain. Currently the patient responding to diuresis with improvement of. Maintain leg elevation. Daily weight. Low-sodium diet. Monitor kidney function and electrolytes closely.Continue Bumex 2 mg IV b.i.d. Continue metolazone 5mg daily (5) Community acquired pneumonia: Code(s): J18.9 - Pneumonia, unspecified organism Status: Acute Assessment and Plan: # sepsis, possible pneumonia -antibiotic: Rocephin, azithromycin -afebrile, WBC down to 9.8 -chest x-ray is read as possible superimposed pneumonia -blood cultures no growth today (6) Pleural effusion on right: Code(s): J90 - Pleural effusion, n
[2021-07-21] MEDS: metOLazone 5 MG TABLET PO (10:16)
[2021-07-21] MEDS: POTASSIUM CHLORIDE 20 MEQ TABLET 40 MEQ PO (10:17)
[2021-07-21] MEDS: BUMETANIDE INJ 1 MG/4 ML VIAL 2 MG IV PUSH ×2 (10:17→16:56)
--- NOTE | 2021-07-21 12:02 | PC.NURSE ---
Patient to Pre-Op via bed. Report given to RUPESH Hastings.
[2021-07-21] MEDS: SODIUM CHLORIDE 0.9% IV 500 ML 30 ML IV CONT (12:25)
--- NOTE | 2021-07-21 12:27 | WPDANESEPPF ---
Anes - Initial Pre Proc Eval Procedure: Operation Date: 07/20/21 12:30 Proposed Procedures p Trans Esophageal Echo - Oh Quiroz MD s Electrical Cardioversion - Oh Quiroz MD Operation Date: 07/21/21 13:00 Proposed Procedures p Insertion Tunneled Dialysis Catheter - Britton Coleman MD Operation Date: 07/22/21 13:00 Proposed Procedures p Electrical Cardioversion - Oh Quiroz MD s Trans Esophageal Echo - Oh Quiroz MD Date/Time: 07/21/21 12:27 Surgeon: Ulisses Hoskins MD Pre Op Diagnosis: chf,acute renal failure,pleural effusion,a fib wit Patient Data Age: 60 Gender: F Height: 1.52 m Weight: 83.3 kg Last Vital Signs Temp 36.5 C 07/21/21 08:23 Pulse 115 H 07/21/21 10:00 Resp 20 07/21/21 08:23 BP 109/89 07/21/21 08:23 Pulse Ox 100 07/21/21 08:23 Allergies Allergy/AdvReac Type Severity Reaction Status Date / Time PHILIP Inhibitors Allergy Swelling Verified 07/17/21 01:01 of Lip/Tongue/Throat azithromycin AdvReac Dyspnea / Verified 07/18/21 17:13 SOB Home Medications Medication Instructions Recorded Confirmed Type eplerenone 50 mg PO BID 07/16/21 07/16/21 History ferrous sulfate [FeroSul] 325 mg PO DAILY 07/16/21 07/16/21 History furosemide 20 mg PO DAILY 07/16/21 07/16/21 History metoprolol succinate 100 mg PO DAILY 07/16/21 07/16/21 History nifedipine 90 mg PO DAILY 07/16/21 07/16/21 History potassium chloride 20 meq PO DAILY 07/16/21 07/16/21 History Laboratory Tests 07/20/21 07/21/21 07/21/21 14:18 04:17 04:17 WBC 9.8 K/mm3 K/mm3 (4.5-10.0) RBC 3.90 M/mm3 L M/mm3 (4.2-5.4) Hgb 10.1 g/dL L g/dL (12.0-15.0) Hct 32.8 % L % (37.0-47.0) MCV 84.1 fl fl (80-100) MCH 25.9 pg L pg (26-34) MCHC 30.8 g/dl L g/dl (32-36) RDW 17.6 % H % (11.5-14.5) Plt Count 339 k/mm3 k/mm3 (150-375) MPV 11.4 fl H fl (7.4-10.4) APTT Sodium 133 mmol/L L mmol/L (137-145) Potassium 3.3 mmol/L L mmol/L (3.4-5.0) Chloride 98 mmol/L mmol/L (98-107) Carbon Dioxide 20 mmol/L L mmol/L (22-30) Anion Gap 15 mmol/L mmol/L (8-16) BUN 101 mg/dL H mg/dL (7-17) Creatinine 6.20 mg/dL H mg/dL (0.7-1.0) Estim Creat Clear Calc 9 ml/min ml/min Estimated GFR 8 L (59 - ) Glucose 133 mg/dL H mg/dL (65-110) Calcium 8.2 mg/dL L mg/dL (8.4-10.2) Iron TIBC % Saturation Ferritin Vit D 1,25-Dihyd Total 1,25 Dihydroxy Vit D2 1,25 Dihydroxy Vit D3 Blood Type B Positive Antibody Screen Negative 07/21/21 07/21/21 07/21/21 04:17 04:17 04:17 WBC RBC Hgb Hct MCV MCH MCHC RDW Plt Count MPV APTT 60.1 SECONDS H SECONDS (22.3-36.8) Sodium Potassium Chloride Carbon Dioxide Anion Gap BUN Creatinine Estim Creat Clear Calc Estimated GFR Glucose Calcium Iron 18 ug/dL L ug/dL (37-170) TIBC 314 ug/dL ug/dL (261-462) % Saturation 6 % L % (20-50) Ferritin 62.40 ng/mL ng/mL (11.1-264) Vit D 1,25-Dihyd Total Pending 1,25 Dihydroxy Vit D2 Pending 1,25 Dihydroxy Vit D3 Pending Blood Type Antibody Screen Patient hx anesthesia problems: none Family hx anesthesia problems: none Results Review: All pre-operative results and documents have been reviewed as part of the pre-operative evaluation. FORMERLY [facility], [facility] Past Medical History Medical History (Reviewed
[2021-07-21] MEDS: METOPROLOL TARTRATE INJ 5 MG/5 ML VIAL IV PUSH ×2 (12:37→12:53)
--- NOTE | 2021-07-21 12:49 | SUR.PREOP ---
1225- Dr. Doll placing orders for Lopressor 5MG IVP for elevated heart rate in 120-140's AFIB on portable monitor, BP stable at this time. 1249- Dr. Doll informed of HR in 120's. Per Dr. Doll place orders and administer repeat Lopressor 5MG IVP with BP of 115/95.
[2021-07-21] MEDS: ceFAZolin 2 GM/D5W 50 ML 2 GM/50 ML BAG IVPB (13:13)
[2021-07-21] MEDS: LIDO 1%/EPINEPHRINE 1:100,000 50 ML VIAL 10 ML INFILTRATE (13:38)
[2021-07-21] MEDS: HEPARIN SODIUM, PORCINE 10,000 UNITS/10 ML VIAL 4000 UNITS IRRIGATION (13:39)
[2021-07-21 13:53] LABS: Hepatitis B Core Ab Total Nonreactive (Nonreactive)
[2021-07-21] MEDS: HEPARIN SODIUM 5,000 UNITS/ML VIAL 5000 UNITS IRRIGATION (14:25)
--- NOTE | 2021-07-21 14:44 | W.PM.PROC2 ---
Procedure Note - Detailed Date of Procedure 07/21/21 Pre-op Diagnosis Acute on chronic kidney disease, inadequate venous access for dialysis Post-op Diagnosis same Procedure Performed Placement right internal jugular tunneled dura flow central venous catheter under fluoroscopy Surgeon Britton Coleman MD Demonstrator Knitting [employer] BRAUN Anesthesia MAC and local (0.5% Marcaine with epinephrine) Indications Patient is a 60-year-old woman who has end-stage renal disease and recent acute kidney injury. She is in need of dialysis per her retail management keyholder. She is taken to surgery now for placement of a tunneled dura flow catheter. Findings Catheter tip was in the distal SVC right atrial junction Description of Procedure Patient was taken to the operating room and IV sedation was administered. She was in a supine position with the head turned slightly to the left. The right neck and right upper chest were prepped and draped. Local anesthesia was infiltrated in the right neck over the area of the right internal jugular vein. Despite having the patient in steep Trendelenburg, it took several punctures to cannulate the right internal jugular vein and have a guidewire passed into the superior vena cava. Eventually this was accomplished. We then took the patient out of Trendelenburg and put her in reverse Trendelenburg which assisted with her ability to oxygenate and ventilate. Her blood pressure was stable. The position of the guidewire was confirmed by C-arm fluoroscopy. I then placed the 32 cm tunneled dura flow catheter over the patient's chest and neck in the general position in which it would lie. It was positioned such that the tip would be in the area of the right atrium. I then marked counter incisions just below the clavicle and in the right neck where the catheter would be tunneled. The exit site of the guidewire was also marked. Local was infiltrated over each of the counter incisions and at the exit site of the guidewire. Incisions were made at each site as well as the exit site of the guidewire. Curved clamp was used to open the skin and create initial passage for the tunneling of the catheter. The catheter was then tunneled in retrograde fashion from the incision just below the clavicle on up the right neck and out the incision with where the guidewire was exiting as well. I then passed serial dilators over the guidewire without difficulty. We then passed the introducer and sheath over the guidewire and into the superior vena cava. The dilators as well as the introducer and sheath were all positioned using fluoroscopy. I then removed the introducer and the guidewire. I passed the end of the dura flow catheter through the sheath and into the distal SVC. The sheath was then removed. I then spent some time dissecting the subcutaneous where the catheter was passing from the subcutaneous down into the right internal jugular vein. This was done to create a nice passage with no kinking of the catheter. I checked this position with fluoroscopy and it looked good. I also position the catheter so that the tip would be in the distal SVC at the area of the right atrium. The catheter is path looked good and the tip was in good position. I then checked each of the catheter lumens. Both aspirated blood easily and flushed with heparin without difficulty. A final flush was done for each lumen. I then capped each lumen. Each of the counter incisions was then closed with interrupted 4-0 Vicryl subcutaneous and subcuticular suture. The catheter was sutured to the skin with 3-0 nylon. The counter incisions were dressed with Exofin surgical adhesive. The exit site of the catheter was dressed with gauze and a transparent dressing. Patient was awakened and taken to recovery in good condition. Sponge and needle counts were correct x2. Implants 32 cm dual lumen dura flow catheter Estimated Blood Loss 50 Urine Output 300 Drains No Packing No Pathology none sent C
[2021-07-21] MEDS: fentaNYL CITRATE INJ (*CRX) 100 MCG/2 ML VIAL 25 MCG IV PUSH (15:05)
[2021-07-21 16:24] LABS: Glucose Pleural Fluid 129 mg/dL; LDH Pleural Fluid 51 U/L; Total Protein Pleural Fluid <3.0 g/dL
--- NOTE | 2021-07-21 16:30 | PC.NURSE ---
Patient returned to room following surgery. Report received from RUPESH Contreras.
[2021-07-21] MEDS: FERROUS SULFATE 324 MG TABLET PO (16:51)
[2021-07-21] MEDS: HYDROcodone/acetaminophen (*CRX) 5-325 MG TABLET 1 TAB PO ×2 (18:08→22:26)
[2021-07-21 21:52] LABS: INR 1.2; Prothrombin Time 14.9 Seconds (11.1-14.7)
[2021-07-21 21:53] LABS: Partial Thromboplastin Time 32.3 SECONDS (22.3-36.8)
[2021-07-21] MEDS: HEPARIN SOD/D5W 100 UNITS/ML 25,000 UNITS/250 ML BAG 11 UNITS IV CONT (23:55)
[2021-07-22] VITALS (22 sets, daily range): BP systolic 110–136; BP diastolic 59–108; PULSE 72–140; RESP 18–20; TEMP 36.2–36.9; O2SAT 95–100
[2021-07-22] MEDS: METOPROLOL TARTRATE 50 MG TAB 100 MG PO ×2 (05:54→18:17)
[2021-07-22 06:04] LABS: INR 1.3; Prothrombin Time 15.5 Seconds (11.1-14.7)
[2021-07-22 06:05] LABS: Partial Thromboplastin Time 60.1 SECONDS (22.3-36.8)
[2021-07-22] MEDS: HEPARIN SODIUM 5,000 UNITS/ML VIAL 2500 UNITS IV PUSH (06:38)
[2021-07-22] MEDS: HYDROcodone/acetaminophen (*CRX) 5-325 MG TABLET 1 TAB PO (08:48)
[2021-07-22] MEDS: BUMETANIDE INJ 1 MG/4 ML VIAL 2 MG IV PUSH ×2 (08:49→18:17)
[2021-07-22] MEDS: FERROUS SULFATE 324 MG TABLET PO (08:50)
[2021-07-22] MEDS: metOLazone 5 MG TABLET PO (08:50)
--- NOTE | 2021-07-22 09:53 | WPDANESPN ---
Anes - Prog Note Post-Op Date/Time: 07/22/21 09:53 Cardiovascular status: normal Respiratory status: normal Airway patency: baseline Mental status: baseline Post-Op hydration status: normal Vital Signs: Last Vital Signs Temp 36.2 C L 07/22/21 08:00 Pulse 120 H 07/22/21 08:00 Resp 20 07/22/21 08:00 BP 128/86 07/22/21 08:00 Pulse Ox 97 07/22/21 08:00 Pain Score (VAS): 3 I/O: Intake & Output 07/21/21 07/22/21 07/22/21 23:59 07:59 15:59 Intake Total 240 275 Output Total 600 Balance 240 -325 Laboratory Tests 07/21/21 04:17 07/21/21 04:17 07/16/21 07/18/21 07/21/21 18:17 16:30 21:34 PT 14.9 H INR 1.2 APTT 32.3 Pleural Total Protein <3.0 Pleural LDH 51 Pleural Glucose 129 Pleural Cholesterol 23 Pleural Triglycerides 33 Hep B Core Total Ab Nonreactive 07/22/21 05:38 PT 15.5 H INR 1.3 APTT 60.1 H Pleural Total Protein Pleural LDH Pleural Glucose Pleural Cholesterol Pleural Triglycerides Hep B Core Total Ab Microbiology 07/16/21 18:17 Pleural Fluid Anaerobic Culture - Final 07/16/21 18:17 Pleural Fluid Aerobic Culture - Final 07/16/21 15:25 Blood Blood Culture - Final 07/16/21 15:25 Blood Blood Culture - Final Post-procedural complaints: none Patient Feedback: Patient satisfied with anesthetic care.
--- NOTE | 2021-07-22 12:46 | ECG_ITS ---
Measurements Intervals [place] Rate: 143 P: HI: 0 QRS: 12 QRSD: 105 T: 193 QT: 311 QTc: 481 Interpretive Statements ATRIAL FIBRILLATION WITH RAPID VENTRICULAR RESPONSE VENTRICULAR PREMATURE COMPLEX BORDERLINE R WAVE PROGRESSION, ANTERIOR LEADS ST-T WAVE ABNORMALITY IN HIGH LATERAL LEADS- CONSIDER ISCHEMIA BASELINE ARTIFACT- I, II, III, AVR, AVL, AVF ABNORMAL ECG Electronically Signed On 07-22-2021 13:10:27 WOOD CHOPPER by Irwin Ureña D.O.
--- NOTE | 2021-07-22 13:19 | ECG_ITS ---
Measurements Intervals [place] Rate: 72 P: 24 ME: 115 QRS: 27 QRSD: 105 T: 166 QT: 417 QTc: 459 Interpretive Statements SINUS RHYTHM WITH SHORT ME INTERVAL VENTRICULAR PREMATURE COMPLEXES POSSIBLE LEFT ATRIAL ENLARGEMENT DELAYED PRECORDIAL R/S TRANSITION ST-T WAVE ABNORMALITY IN LAT/HIGH LAT LEADS- CONSIDER ISCHEMIA BASELINE ARTIFACT- V4, V6 ABNORMAL ECG Electronically Signed On 07-22-2021 13:56:16 CORPORATE BUYER by Irwin Ureña D.O.
--- NOTE | 2021-07-22 13:35 | ECG_ITS ---
Measurements Intervals [place] Rate: 117 P: [place]: 0 QRS: 29 QRSD: 104 T: 202 QT: 334 QTc: 466 Interpretive Statements ATRIAL FIBRILLATION WITH RAPID VENTRICULAR RESPONSE DELAYED PRECORDIAL R/S TRANSITION ST-T WAVE ABNORMALITY IN LAT/HIGH LAT LEADS- CONSIDER ISCHEMIA BASELINE ARTIFACT- II, III, V5 ABNORMAL ECG Electronically Signed On 07-22-2021 13:55:23 FINANCIAL REPORTING CONSULTANT by Irwin Ureña D.O.
[2021-07-22] MEDS: AMIODARONE 150 MG/D5W 100 ML 150 MG/100 ML BAG 600 MG IV CONT (14:37)
--- NOTE | 2021-07-22 14:56 | WPDTECDV ---
LAUREEN with Cardioversion Date of procedure: 07/22/21 Procedure Type: Transesophageal echocardiogram guided elective electrical cardioversion Diagnosis: Atrial fibrillation with rapid ventricular response Indications: Atrial fibrillation with rapid ventricular response Description of Procedure: Brief history present illness: Patient is a pleasant 60-year-old Afro-[place]ir[place] female admitted with acute on chronic heart failure with reduced ejection fraction, acute on chronic renal failure, atrial fibrillation with rapid ventricular response, new severe LV systolic dysfunction EF 20-25% with refractory atrial fibrillation with RVR medical therapy. PermCath placement for anticipated hemodialysis yesterday with request to defer LAUREEN guided cardioversion until postprocedure to minimize bleeding complications. Patient remains in AFib with RVR and is now referred for transesophageal echocardiogram-guided elective electrical cardioversion in attempt to restore sinus rhythm with the assistance of Anesthesiology. Prior to beginning the procedure I explained to the patient the reduce likelihood of success in either achieving or maintaining sinus rhythm given left atrial enlargement, LV dysfunction. Patient verbalized understanding. I also discussed the prospect of utilization of antiarrhythmic therapy such as amiodarone if persistent atrial fibrillation with RVR as noted or for reversion to atrial fibrillation even if cardioversion is initially successful. She was in agreement. Procedure in detail: After verbal and written informed consent was obtained the patient risks, benefits, and alternatives explained in detail the patient agreed to proceed with the plan of care as outlined above. Patient was evaluated at bedside in the gastroenterology Procedure suite. On examination, neck was supple with normal range of motion, no restrictions to opening of the oral cavity, jaw angle and posterior hypopharynx was clear. Lungs were diminished with faint crackles at the bases. Patient was placed in appropriate 30 to 45 degree angle in a supine, slight left lateral decubitus position. Patient was monitored throughout the study with telemetry, oxygen saturation, end-tidal CO2 monitoring, blood pressure, heart rate, and respirations by Anesthesiology. Once adequate sedation was administered by Anesthesiology, the transesophageal echocardiogram probe was advanced through the oral bite block into the posterior hypopharynx and into the esophagus easily and without complication. Multiple, multiplanar echocardiographic images were obtained in multiple standard re-projections. Pulsed wave, continuous-wave, and color-flow Doppler were utilized in conjunction with this study. At the conclusion of the study, the transesophageal echocardiogram probe was removed easily and without complication. Patient tolerated the procedure well without difficulty. Patient was in atrial fibrillation throughout the study. Sedation: Moderate Sedation/Anesthesia administration: Patient denied previous intolerance or complications with anesthesia/sedation. Please see Anesthesiology documentation for sedation administration protocols and details. Findings: LEFT VENTRICLE: Moderate left ventricular enlargement with severe LV systolic dysfunction visually estimated ejection fraction approximately 20-25% with moderate concentric left ventricular hypertrophy. RIGHT VENTRICLE: Mildly enlarged with moderate systolic dysfunction LEFT ATRIUM: Severe enlargement with spontaneous contrast. RIGHT ATRIUM: Severe enlargement. INTERATRIAL SEPTUM: Interatrial septum is anatomically normal without evidence of shunt with color-flow Doppler nor with injection of agitated saline. MITRAL VALVE: Mitral valve is anatomically normal with preserved leaflet excursion and mild regurgitation, and mild calcification of mitral annulus. No mobile vegetations observed. AORTIC VALVE: The aortic valve was an anatomically normal 3 leaflet stru
[2021-07-22 15:35] LABS: Partial Thromboplastin Time 170.4 SECONDS (22.3-36.8)
[2021-07-22] MEDS: AMIODARONE 360 MG/D5W 200 ML 360 MG/200 ML BAG 33.33 MG IV CONT (15:36)
--- NOTE | 2021-07-22 17:11 | PM.IMPN ---
Progress Note: A&P Assessment and Plan (1) Chronic kidney disease, unspecified: Code(s): N18.9 - Chronic kidney disease, unspecified Status: Acute Assessment and Plan: # ESRD, CKD stage 5 -currently being monitored closely by Nephrology. -creatinine elevated 6.10, GFR 10 -currently patient shows persistent peripheral lower extremity edema despite aggressive diuresis. She is status post thoracentesis. Electrolytes are within acceptable range. There is no emergent indication for renal replacement therapy. However she has advanced kidney disease, has persistent fluid overload despite aggressive IV diuresis. Patient will be started on dialysis indicated for refractory fluid overload. She underwent PermCath placement today per Nephrology. Urinary output is modest at 600 cc today. (2) Acute renal failure superimposed on chronic kidney disease: Qualifiers: Acute renal failure type: unspecified Chronic kidney disease stage: unspecified stage Qualified Code(s): N17.9 - Acute kidney failure, unspecified; N18.9 - Chronic kidney disease, unspecified Code(s): N17.9 - Acute kidney failure, unspecified; N18.9 - Chronic kidney disease, unspecified Status: Acute Assessment and Plan: It is unclear if the patient present with acute kidney injury in the setting of advance kidney disease. Certainly kidney imaging reveals small kidneys, suggesting chronic kidney disease. Psychological preparation for dialysis. Iron stores low and Venofer was ordered. Save nondominant arm for future access. (3) Atrial fibrillation with rapid ventricular response: Code(s): I48.91 - Unspecified atrial fibrillation Status: Acute Assessment and Plan: # AFib with RVR # CHF exacerbation -AFib likely secondary to fluid overload - 200 joules synched biphasic energy x1 was delivered with immediate mosque of sinus rhythm. Twelve lead EKG was obtained postprocedure, however, pt had reverted to Afib with RVR once again after approximately 5-10 minutes. -rate control: Continue medical management. Metoprolol 50 mg q.12 hours, diltiazem 240 mg daily. -anticoagulation: Heparin drip; plan to transition to NOAC at the time of discharge. -goal keep potassium greater than 4, magnesium greater than 2, patient was started on 20 mEq potassium supplement daily -appreciate cardiology consult -with fluid overload nephrology consulted, currently patient is receiving Bumex 2 mg IV b.i.d.. She may close 1 L of urine overnight. -echocardiogram ordered -we are doing Bumex now, at home was on furosemide 20 mg daily, apparently own 50 mg b.i.d., metoprolol succinate 100 mg daily (4) CHF (congestive heart failure): Qualifiers: Heart failure chronicity: acute Heart failure type: unspecified Qualified Code(s): I50.9 - Heart failure, unspecified Code(s): I50.9 - Heart failure, unspecified Status: Acute Assessment and Plan: # elevated troponin -0.165 likely secondary to AFib RVR, no chest pain. Currently the patient responding to diuresis with improvement of. Maintain leg elevation. Daily weight. Low-sodium diet. Monitor kidney function and electrolytes closely.Continue Bumex 2 mg IV b.i.d. Continue metolazone 5mg daily (5) Community acquired pneumonia: Code(s): J18.9 - Pneumonia, unspecified organism Status: Acute Assessment and Plan: # sepsis, possible pneumonia -antibiotic: Rocephin, azithromycin -afebrile, WBC down to 9.8 -chest x-ray is read as possible superimposed pneumonia -blood cultures no growth today (6) Pleural effusion on right: Code(s): J90 - Pleural effusion, not elsewhere classified Status: Acute Assessment and Plan: Follow-up pleural fluid studies. (7) Hypertension: Code(s): I10 - Essential (primary) hypertension Status: Acute Assessment and Plan: # essential hypertension -continue home nifedipine 90 mg d
[2021-07-22] MEDS: ONDANSETRON INJ 4 MG/2 ML VIAL IV PUSH (19:48)
[2021-07-22 20:55] LABS: Amylase, Pleural Fluid <10 U/L
[2021-07-22] MEDS: AMIODARONE 360 MG/D5W 200 ML 360 MG/200 ML BAG 16.67 MG IV CONT (21:24)
[2021-07-22] MEDS: HEPARIN SOD/D5W 100 UNITS/ML 25,000 UNITS/250 ML BAG 10 UNITS IV CONT (23:33)
[2021-07-23] VITALS (29 sets, daily range): BP systolic 114–165; BP diastolic 63–119; PULSE 80–128; RESP 16–22; TEMP 36.1–37.2; O2SAT 96–100
[2021-07-23 01:03] LABS: Partial Thromboplastin Time 67.4 SECONDS (22.3-36.8)
[2021-07-23] MEDS: HEPARIN SODIUM 5,000 UNITS/ML VIAL 2500 UNITS IV PUSH (01:17)
[2021-07-23 05:26] LABS: Albumin Level 3.4 g/dL (3.5-5.1); Anion Gap 20 mmol/L (8-16); Blood Urea Nitrogen 103 mg/dL (7-17); Calcium 8.6 mg/dL (8.4-10.2); Carbon Dioxide 16 mmol/L (22-30); Chloride 97 mmol/L (98-107); Estimated CRCL calculation 8 ml/min; Estimated Glomerular Filt Rate 8; Glucose 123 mg/dL (65-110); Phosphorus 7.7 mg/dL (2.5-4.5); Potassium 4.2 mmol/L (3.4-5.0); Sodium 133 mmol/L (137-145)
[2021-07-23 05:39] LABS: Partial Thromboplastin Time > 200.0 SECONDS (22.3-36.8)
[2021-07-23] MEDS: BUMETANIDE INJ 1 MG/4 ML VIAL 2 MG IV PUSH ×2 (09:00→17:03)
[2021-07-23] MEDS: FERROUS SULFATE 324 MG TABLET PO (09:00)
[2021-07-23] MEDS: metOLazone 5 MG TABLET PO (09:00)
[2021-07-23] MEDS: METOPROLOL TARTRATE 50 MG TAB 100 MG PO ×2 (09:01→17:03)
--- NOTE | 2021-07-23 10:19 | P.PNNP_ITS ---
Progress Note: A&P Assessment and Plan (1) Chronic kidney disease, unspecified: Code(s): N18.9 - Chronic kidney disease, unspecified Status: Chronic Assessment and Plan: * unknown baseline creatinine but has known history of CKD - had been seeing nephrology in the past * appears quite advanced kdiney disease based on evaluation to date: * small kidney size by renal ultrasound - doubt mild hydro contributing * urine electrolytes non-prerenal * urinalysis with blood and protein * creatinine on admission was 4.7mg/dl and has slowly declined during this hospitalization up to 6.7mg/dl * suspected that her atrial fibrillation may precipitated her renal decline but not clear * findings by Echo (EF ~ 20 - 25% with 4 chamber dilation) would also suggest a possible component of cardiorenal syndrome playing a role as well * diuretics have not really improved volume status and have just worsened creatinine * s/p tunneled HD catheter on 07/21/21 * HD today with fluid removal as tolerated * unclear if potential for renal recovery but seems apparent that she needs dialysis at this time (for clearance, fluid removal, and optmization of electrolytes) * plan next HD treatment on Sunday (2) Hypertension: Code(s): I10 - Essential (primary) hypertension Status: Chronic Assessment and Plan: * long standing issues and presumably due to hyperaldosteronism based on history * off spironolaconte * follow potassium (3) Atrial fibrillation with rapid ventricular response: Code(s): I48.91 - Unspecified atrial fibrillation Status: Acute Assessment and Plan: * s/p LAUREEN with cardioversion but failed to maintain NSR * on amiodarone and heparin * re-attempt cardioversion?? * Cardiology following * continue rate control startegy and anticoagulation (4) CHF (congestive heart failure): Qualifiers: Heart failure chronicity: acute Heart failure type: unspecified Qualified Code(s): I50.9 - Heart failure, unspecified Code(s): I50.9 - Heart failure, unspecified Status: Acute Assessment and Plan: * volume overloaded in spite of diuretic therapy * fluid removal/ultrafiltration as tolerated with dialysis * follow respiratory/volume status * continue diuretics since still makes some urine (5) Pleural effusion on right: Code(s): J90 - Pleural effusion, not elsewhere classified Status: Acute Assessment and Plan: * s/p thoracentesis * hopefully fluid removal with dialysis will keep this issue in check (6) Elevated LFTs: Code(s): R79.89 - Other specified abnormal findings of blood chemistry Status: Acute Assessment and Plan: * hepatitis studies negative * suspect passive congestion (7) Anemia: Code(s): D64.9 - Anemia, unspecified Status: Acute Assessment and Plan: * related to CKD and acute illness * Epogen with HD * follow trend of H/H Will continue to follow. Subjective Date/time seen: 07/23/21 10:19 Chart reviewed - assuming care for Dr. Dubois; tolerating dialysis treatment at the time of my visit (seen on HD at ~ 10:00AM); no apparent complaints voiced at this time; tolerated HD catheter placement yesterday without issue or problems; still has some generalized fatigue; s/p LAUREEN with cardioversion and was briefly in NSR before converting back to atrial fibrillation within a few minutes; remains on anticoagulation/heparin gtt. Exam Narrative: General: WD/WN AA/female in NAD H
--- NOTE | 2021-07-23 10:19 | PM.PNNEP ---
Progress Note: A&P Assessment and Plan (1) Chronic kidney disease, unspecified: Code(s): N18.9 - Chronic kidney disease, unspecified Status: Chronic Assessment and Plan: unknown baseline creatinine but has known history of CKD - had been seeing nephrology in the past appears quite advanced kdiney disease based on evaluation to date: small kidney size by renal ultrasound - doubt mild hydro contributing urine electrolytes non-prerenal urinalysis with blood and protein creatinine on admission was 4.7mg/dl and has slowly declined during this hospitalization up to 6.7mg/dl suspected that her atrial fibrillation may precipitated her renal decline but not clear findings by Echo (EF ~ 20 - 25% with 4 chamber dilation) would also suggest a possible component of cardiorenal syndrome playing a role as well diuretics have not really improved volume status and have just worsened creatinine s/p tunneled HD catheter on 07/21/21 HD today with fluid removal as tolerated unclear if potential for renal recovery but seems apparent that she needs dialysis at this time (for clearance, fluid removal, and optmization of electrolytes) plan next HD treatment on Sunday (2) Hypertension: Code(s): I10 - Essential (primary) hypertension Status: Chronic Assessment and Plan: long standing issues and presumably due to hyperaldosteronism based on history off spironolaconte follow potassium (3) Atrial fibrillation with rapid ventricular response: Code(s): I48.91 - Unspecified atrial fibrillation Status: Acute Assessment and Plan: s/p LAUREEN with cardioversion but failed to maintain NSR on amiodarone and heparin re-attempt cardioversion?? Cardiology following continue rate control startegy and anticoagulation (4) CHF (congestive heart failure): Qualifiers: Heart failure chronicity: acute Heart failure type: unspecified Qualified Code(s): I50.9 - Heart failure, unspecified Code(s): I50.9 - Heart failure, unspecified Status: Acute Assessment and Plan: volume overloaded in spite of diuretic therapy fluid removal/ultrafiltration as tolerated with dialysis follow respiratory/volume status continue diuretics since still makes some urine (5) Pleural effusion on right: Code(s): J90 - Pleural effusion, not elsewhere classified Status: Acute Assessment and Plan: s/p thoracentesis hopefully fluid removal with dialysis will keep this issue in check (6) Elevated LFTs: Code(s): R79.89 - Other specified abnormal findings of blood chemistry Status: Acute Assessment and Plan: hepatitis studies negative suspect passive congestion (7) Anemia: Code(s): D64.9 - Anemia, unspecified Status: Acute Assessment and Plan: related to CKD and acute illness Epogen with HD follow trend of H/H Will continue to follow. Subjective Date/time seen: 07/23/21 10:19 Chart reviewed - assuming care for Dr. Dubois; tolerating dialysis treatment at the time of my visit (seen on HD at ~ 10:00AM); no apparent complaints voiced at this time; tolerated HD catheter placement yesterday without issue or problems; still has some generalized fatigue; s/p LAUREEN with cardioversion and was briefly in NSR before converting back to atrial fibrillation within a few minutes; remains on anticoagulation/heparin gtt. Exam Narrative: General: WD/WN AA/female in NAD Heart: normal S1 and S2; no rub Lungs: decreased breath sounds at the bases Abdomen: soft, nontender, nondistended, positive bowel sounds Extremities: no cyanosis or clubbing; 2+ edema Skin: warm and dry Objective Data Vital Signs Vital Signs: Vital Signs Temp Pulse Resp BP Pulse Ox 07/23/21 10:15 89 140/63 07/23/21 10:00 113 H 142/105 H 07/23/21 09:44 110 H 130/96 H 07/23/21 09:35 36.8 C 115 H 16 137/84 07/23/21 09:01 119
[2021-07-23] MEDS: AMIODARONE 360 MG/D5W 200 ML 360 MG/200 ML BAG 16.67 MG IV CONT ×2 (10:31→21:25)
[2021-07-23] MEDS: SODIUM CHLORIDE 0.9% IV 1,000 ML 999 ML IV CONT (10:38)
--- NOTE | 2021-07-23 10:42 | PM.PNCARD ---
Progress Note: A&P Assessment and Plan (1) Atrial fibrillation with rapid ventricular response: Code(s): I48.91 - Unspecified atrial fibrillation Status: Acute Assessment and Plan: Patient status post LAUREEN guided DC cardioversion, with reversion to atrial fibrillation with RVR. Continue on IV amiodarone for now. May consider repeating DC cardioversion after patient has been loaded with amiodarone. Continue anticoagulation with unfractionated heparin for now. Monitor aPTT closely. Continue to monitor on telemetry. (2) CHF (congestive heart failure): Qualifiers: Heart failure chronicity: acute Heart failure type: unspecified Qualified Code(s): I50.9 - Heart failure, unspecified Code(s): I50.9 - Heart failure, unspecified Status: Acute Assessment and Plan: Fluid management with hemodialysis. Currently on beta-tangela. Will initiate on other standard treatment for CHF with reduced ejection fraction including ARNI, if patient is going to be on hemodialysis permanently. (3) Acute renal failure superimposed on chronic kidney disease: Qualifiers: Acute renal failure type: unspecified Chronic kidney disease stage: unspecified stage Qualified Code(s): N17.9 - Acute kidney failure, unspecified; N18.9 - Chronic kidney disease, unspecified Code(s): N17.9 - Acute kidney failure, unspecified; N18.9 - Chronic kidney disease, unspecified Status: Acute Assessment and Plan: Renal replacement therapy with hemodialysis. Management per Nephrology. Subjective Date/time seen: 07/23/21 10:42 Date of service 07/23/2021-patient was evaluated in the dialysis center while undergoing dialysis. She reported generalized fatigue. Denies any chest pain, shortness of breath or palpitations. On telemetry, she is in atrial fibrillation with heart rates in 100s. She is currently on IV amiodarone, and also on anticoagulation with unfractionated heparin. Exam Narrative: PHYSICAL EXAMINATION: GENERAL: Alert, oriented, no acute distress; undergoing dialysis MENTAL STATUS: affect appropriate to mood EYES: Extraocular movements intact, pallor EARS: External ears appear normal, hearing grossly normal NOSE: Normal and patent, no discharge MOUTH: Mucous membranes moist, tongue normal NECK: Supple, no JVD CHEST: clear to auscultation HEART: Tachycardia, irregularly irregular ABDOMEN: Soft, nontender NEUROLOGICAL: Alert, oriented, normal speech, no gross motor deficits MUSCULOSKELETAL: No major deformity, no amputation EXTREMITIES: Bilateral pedal edema, no clubbing, no cyanosis SKIN: no rash on the exposed area, no cyanosis PSYCHIATRIC: Normal mood, appropriate affect Objective Data Vital Signs Vital Signs: Vital Signs - 24 hr 07/22/21 12:00 07/22/21 13:33 07/22/21 13:45 Temperature 36.2 C L Pulse Rate 122 H 72 117 H Respiratory Rate 18 20 18 Blood Pressure 136/108 H 115/59 L 129/97 H Pulse Oximetry 100 98 98 07/22/21 14:00 07/22/21 14:37 07/22/21 15:36 Temperature Pulse Rate 107 H 137 H 134 H Respiratory Rate 18 Blood Pressure 122/91 H Pulse Oximetry 95 07/22/21 16:00 07/22/21 18:00 07/22/21 18:17 Temperature 36.4 C L Pulse Rate 118 H 120 H 140 H Respiratory Rate 20 Blood Pressure 127/99 H Pulse Oximetry 100 07/22/21 20:00 07/22/21 21:24 07/22/21 22:00 Temperature 36.5 C Pulse Rate 126 H 124 H 111 H Respiratory Rate 20 Blood Pressure 110/81 Pulse Oximetry 100 07/22/21 22:50 07/22/21 23:48 07/23/21 00:00 Temperature 36.6 C Pulse Rate 108 H 115 H Respiratory Rate 20 Blood Pressure 119/92 H Pulse Oximetry 100 100 07/23/21 02:00 07/23/21 03:07 07/23/21 03:35 Temperature 36.8 C Pulse Rate 110 H 115 H Respiratory Rate 22 H Blood Pressure 114/87 Pulse Oximetry 99 99 07/23/21 04:00 07/23/21 05:32 07/23/21 08:00 Temperature 36.1 C L Pulse Rate 103 H 107 H 115 H Respirator
--- NOTE | 2021-07-23 14:15 | PM.IMPN ---
Progress Note: A&P Assessment and Plan (1) Chronic kidney disease, unspecified: Code(s): N18.9 - Chronic kidney disease, unspecified Status: Acute Assessment and Plan: # ESRD, CKD stage 5 -patient was started on hemodialysis on 07/23/2021. She had a stable run without reported issues. -currently patient shows persistent peripheral lower extremity edema despite aggressive diuresis. She is status post thoracentesis. Electrolytes are within acceptable range. May continue IV diuretics on non dialysis days. (2) Acute renal failure superimposed on chronic kidney disease: Qualifiers: Acute renal failure type: unspecified Chronic kidney disease stage: unspecified stage Qualified Code(s): N17.9 - Acute kidney failure, unspecified; N18.9 - Chronic kidney disease, unspecified Code(s): N17.9 - Acute kidney failure, unspecified; N18.9 - Chronic kidney disease, unspecified Status: Acute Assessment and Plan: It is unclear if the patient present with acute kidney injury in the setting of advance kidney disease. Certainly kidney imaging reveals small kidneys, suggesting chronic kidney disease. Dialysis initiation per nephrology. Iron stores low and Venofer was ordered. Save nondominant arm for future access. (3) Atrial fibrillation with rapid ventricular response: Code(s): I48.91 - Unspecified atrial fibrillation Status: Acute Assessment and Plan: # AFib with RVR # CHF exacerbation -AFib with rapid ventricular response, remaining uncontrolled despite medication and 1 attempt at cardioversion. - 200 joules synched biphasic energy x1 was delivered with immediate sikhism of sinus rhythm on 07/22/2021. Twelve lead EKG was obtained postprocedure, however, pt had reverted to Afib with RVR once again after approximately 5-10 minutes. -rate control: Continue medical management. Metoprolol 50 mg q.12 hours. Continue on IV amiodarone ; per Cardiology, may consider repeating DC cardioversion after patient has been loaded with amiodarone. Continue anticoagulation with unfractionated heparin for now. Monitor aPTT closely. -anticoagulation: Heparin drip; plan to transition to NOAC at the time of discharge. -goal keep potassium greater than 4, magnesium greater than 2, patient was started on 20 mEq potassium supplement daily -appreciate cardiology consult -with fluid overload nephrology consulted, currently patient is receiving Bumex 2 mg IV b.i.d.. She may close 1 L of urine overnight. -echocardiogram revealed LEFT VENTRICLE: Moderate left ventricular enlargement with severe LV systolic dysfunction visually estimated ejection fraction approximately 20-25% with moderate concentric left ventricular hypertrophy. (4) CHF (congestive heart failure): Qualifiers: Heart failure chronicity: acute Heart failure type: unspecified Qualified Code(s): I50.9 - Heart failure, unspecified Code(s): I50.9 - Heart failure, unspecified Status: Acute Assessment and Plan: # elevated troponin -0.165 likely secondary to AFib RVR, no chest pain. Currently the patient responding to diuresis with improvement of. Maintain leg elevation. Daily weight. Low-sodium diet. Monitor kidney function and electrolytes closely.Continue Bumex 2 mg IV b.i.d. Continue metolazone 5mg daily (5) Community acquired pneumonia: Code(s): J18.9 - Pneumonia, unspecified organism Status: Acute Assessment and Plan: # sepsis, possible pneumonia -antibiotic: Rocephin, azithromycin -afebrile, WBC down to 9.8 -chest x-ray is read as possible superimposed pneumonia -blood cultures no growth today (6) Pleural effusion on right: Code(s): J90 - Pleural effusion, not elsewhere classified Status: Acute Assessment and Plan: Follow-up pleural fluid studies. (7) Hypertension: Code(s): I10 - Essential (primary) hypertension Status: Acute Assessment and Plan:
[2021-07-23 16:57] LABS: Basophils Absolute Auto 0.1 K/mm3 (0.0-0.1); Basophils Percent Auto 0.9 % (0.2-1.2); Eosinophils Absolute Auto 0.1 K/mm3 (0-0.3); Eosinophils Percent Auto 1.7 % (0-4.4); Hematocrit 32.7 % (37.0-47.0); Hemoglobin 10.4 g/dL (12.0-15.0); Immature Granulocyte Absolute 0.11 K/mm3 (0.00-0.031); Immature Granulocyte Percent A 1.4 % (0-0.5); Lymphocytes Absolute Auto 0.92 K/mm3 (0.9-3.2); Lymphocytes Percent Auto 11.4 % (18.3-44.2); Mean Corpuscular HGB Conc 31.8 g/dl (32-36); Mean Corpuscular Hemoglobin 25.9 pg (26-34); Mean Corpuscular Volume 81.3 fl (80-100); Mean Platelet Volume 10.2 fl (7.4-10.4); Monocytes Absolute Auto 0.7 K/mm3 (0.1-0.6); Monocytes Percent Auto 8.7 % (2.6-8.5); Neutrophils Absolute Auto 6.1 K/mm3 (1.3-6.7); Neutrophils Percent Auto 75.9 % (45.5-73.1); Nucleated Red Blood Cells Perc 0.2 % (0.0-0.2); Platelet Count Result 364 k/mm3 (150-375); Red Blood Count 4.02 M/mm3 (4.2-5.4); Red Cell Distribution Width 17.2 % (11.5-14.5); White Blood Count 8.1 K/mm3 (4.5-10.0)
[2021-07-23 17:08] LABS: Anion Gap 15 mmol/L (8-16); Blood Urea Nitrogen 76 mg/dL (7-17); Calcium 8.7 mg/dL (8.4-10.2); Carbon Dioxide 24 mmol/L (22-30); Chloride 95 mmol/L (98-107); Estimated CRCL calculation 11 ml/min; Estimated Glomerular Filt Rate 10; Glucose 144 mg/dL (65-110); Partial Thromboplastin Time 90.1 SECONDS (22.3-36.8); Potassium 3.4 mmol/L (3.4-5.0); Sodium 134 mmol/L (137-145)
[2021-07-23] MEDS: ONDANSETRON INJ 4 MG/2 ML VIAL IV PUSH (18:18)
[2021-07-23 23:32] LABS: Anion Gap 14 mmol/L (8-16); Blood Urea Nitrogen 80 mg/dL (7-17); Calcium 8.2 mg/dL (8.4-10.2); Carbon Dioxide 22 mmol/L (22-30); Chloride 96 mmol/L (98-107); Estimated CRCL calculation 10 ml/min; Estimated Glomerular Filt Rate 10; Glucose 121 mg/dL (65-110); Magnesium 1.9 mg/dL (1.6-2.3); Potassium 3.6 mmol/L (3.4-5.0); Sodium 132 mmol/L (137-145)
[2021-07-23 23:33] LABS: Partial Thromboplastin Time 53.8 SECONDS (22.3-36.8)
[2021-07-23] MEDS: HEPARIN SOD/D5W 100 UNITS/ML 25,000 UNITS/250 ML BAG 11 UNITS IV CONT (23:43)
[2021-07-23] MEDS: HEPARIN SODIUM 5,000 UNITS/ML VIAL 5000 UNITS IV PUSH (23:43)
[2021-07-24] VITALS (18 sets, daily range): BP systolic 125–146; BP diastolic 80–108; PULSE 107–137; RESP 12–20; TEMP 35.7–36.8; O2SAT 97–100
[2021-07-24] MEDS: MAGNESIUM SULF 2 GM/WATER 50ML 2 GM/50 ML BAG IVPB (03:38)
[2021-07-24 06:51] LABS: Partial Thromboplastin Time > 200.0 SECONDS (22.3-36.8)
[2021-07-24] MEDS: metOLazone 5 MG TABLET PO (08:14)
[2021-07-24] MEDS: METOPROLOL TARTRATE 50 MG TAB 100 MG PO ×2 (08:14→17:30)
[2021-07-24] MEDS: BUMETANIDE INJ 1 MG/4 ML VIAL 2 MG IV PUSH ×2 (08:14→17:30)
[2021-07-24] MEDS: FERROUS SULFATE 324 MG TABLET PO (08:15)
[2021-07-24] MEDS: AMIODARONE 360 MG/D5W 200 ML 360 MG/200 ML BAG 16.67 MG IV CONT ×2 (08:18→20:07)
--- NOTE | 2021-07-24 09:04 | PM.PNCARD ---
Progress Note: A&P Assessment and Plan (1) Atrial fibrillation with rapid ventricular response: Code(s): I48.91 - Unspecified atrial fibrillation Status: Acute Assessment and Plan: Patient status post LAUREEN guided DC cardioversion with Failure to restore sinus rhythm. Continue on IV amiodarone for now. May consider repeating DC cardioversion after patient has been loaded with amiodarone. Continue anticoagulation with unfractionated heparin for now. Monitor aPTT closely. Continue to monitor on telemetry. (2) CHF (congestive heart failure): Qualifiers: Heart failure chronicity: acute Heart failure type: unspecified Qualified Code(s): I50.9 - Heart failure, unspecified Code(s): I50.9 - Heart failure, unspecified Status: Acute Assessment and Plan: Fluid management with hemodialysis. Currently on beta-tangela. Will initiate on other standard treatment for HFrEF including ARNI, if patient is going to be on hemodialysis permanently. (3) Acute renal failure superimposed on chronic kidney disease: Qualifiers: Acute renal failure type: unspecified Chronic kidney disease stage: unspecified stage Qualified Code(s): N17.9 - Acute kidney failure, unspecified; N18.9 - Chronic kidney disease, unspecified Code(s): N17.9 - Acute kidney failure, unspecified; N18.9 - Chronic kidney disease, unspecified Status: Acute Assessment and Plan: Renal replacement therapy with hemodialysis. Management per Nephrology. Subjective Date/time seen: 07/24/21 09:04 Date of service: 07/24/2021 Interval history: Patient reports generalized fatigue. Denies chest pain or dyspnea at rest. Continues to have lower extremity swelling. She had hemodialysis yesterday. On telemetry, she remains in AFib with RVR with heart rates in 100s to 120s. Exam Narrative: PHYSICAL EXAMINATION: GENERAL: Alert, oriented, no acute distress MENTAL STATUS: affect appropriate to mood EYES: Extraocular movements intact, pallor EARS: External ears appear normal, hearing grossly normal NOSE: Normal and patent, no discharge MOUTH: Mucous membranes moist, tongue normal NECK: Supple, no JVD CHEST: clear to auscultation HEART: Tachycardia, irregularly irregular ABDOMEN: Soft, nontender NEUROLOGICAL: Alert, oriented, normal speech, no gross motor deficits MUSCULOSKELETAL: No major deformity, no amputation EXTREMITIES: Bilateral pedal edema, no clubbing, no cyanosis SKIN: no rash on the exposed area, no cyanosis PSYCHIATRIC: Normal mood, appropriate affect Objective Data Vital Signs Vital Signs: Vital Signs - 24 hr 07/23/21 09:35 07/23/21 09:44 07/23/21 10:00 Temperature 36.8 C Pulse Rate 115 H 110 H 113 H Respiratory Rate 16 Blood Pressure 137/84 130/96 H 142/105 H Pulse Oximetry 07/23/21 10:15 07/23/21 10:30 07/23/21 10:31 Temperature Pulse Rate 89 112 H 112 H Respiratory Rate Blood Pressure 140/63 164/105 H Pulse Oximetry 07/23/21 10:45 07/23/21 11:00 07/23/21 11:15 Temperature Pulse Rate 99 121 H 122 H Respiratory Rate Blood Pressure 161/81 H 142/119 H 165/107 H Pulse Oximetry 07/23/21 11:30 07/23/21 11:45 07/23/21 11:56 Temperature 36.4 C L Pulse Rate 83 80 111 H Respiratory Rate 16 Blood Pressure 129/101 H 134/72 130/77 Pulse Oximetry 07/23/21 12:00 07/23/21 14:00 07/23/21 16:00 Temperature 36.6 C Pulse Rate 118 H 122 H 104 H Respiratory Rate 18 Blood Pressure 131/88 Pulse Oximetry 100 97 07/23/21 17:03 07/23/21 18:00 07/23/21 20:00 Temperature 37.2 C Pulse Rate 128 H 125 H 115 H Respiratory Rate 18 Blood Pressure 120/94 H Pulse Oximetry 96 07/23/21 21:25 07/23/21 22:00 07/23/21 23:20 Temperature 37.1 C Pulse Rate 112 H 121 H 120 H Respiratory Rate 17 Blood Pressure 124/89 Pulse Oximetry 97 07/24/21 00:00 07/24/21 02:00 07/24/21 03:20 Temperature 36.8 C Pulse
--- NOTE | 2021-07-24 11:08 | PM.IMPN ---
Progress Note: A&P Assessment and Plan (1) Chronic kidney disease, unspecified: Code(s): N18.9 - Chronic kidney disease, unspecified Status: Acute Assessment and Plan: # ESRD, CKD stage 5 -patient was started on hemodialysis on 07/23/2021. She had a stable run without reported issues. -currently patient shows persistent peripheral lower extremity edema despite aggressive diuresis. She is status post thoracentesis; pleural fluid was transudative; cultures remain unrevealing;. Electrolytes are within acceptable range. May continue IV diuretics on non dialysis days. (2) Acute renal failure superimposed on chronic kidney disease: Qualifiers: Acute renal failure type: unspecified Chronic kidney disease stage: unspecified stage Qualified Code(s): N17.9 - Acute kidney failure, unspecified; N18.9 - Chronic kidney disease, unspecified Code(s): N17.9 - Acute kidney failure, unspecified; N18.9 - Chronic kidney disease, unspecified Status: Acute Assessment and Plan: It is unclear if the patient present with acute kidney injury in the setting of advance kidney disease. Certainly kidney imaging reveals small kidneys, suggesting chronic kidney disease. Dialysis initiation per nephrology. Continue IV iron supplementation with Venofer. Save nondominant arm for future access. (3) Atrial fibrillation with rapid ventricular response: Code(s): I48.91 - Unspecified atrial fibrillation Status: Acute Assessment and Plan: # AFib with RVR # CHF exacerbation -AFib with rapid ventricular response, remaining uncontrolled despite medication and 1 attempt at cardioversion. - 200 joules synched biphasic energy x1 was delivered with immediate judaism of sinus rhythm on 07/22/2021. Twelve lead EKG was obtained postprocedure, however, pt had reverted to Afib with RVR once again after approximately 5-10 minutes. -rate control: Continue medical management. Metoprolol 50 mg q.12 hours. Continue on IV amiodarone ; per Cardiology, may consider repeating DC cardioversion after patient has been loaded with amiodarone. Continue anticoagulation with unfractionated heparin for now. Monitor aPTT closely. -anticoagulation: Heparin drip; plan to transition to NOAC at the time of discharge. -goal keep potassium greater than 4, magnesium greater than 2, patient was started on 20 mEq potassium supplement daily -appreciate cardiology consult -with fluid overload nephrology consulted, currently patient is receiving Bumex 2 mg IV b.i.d.. She may close 1 L of urine overnight. -echocardiogram revealed LEFT VENTRICLE: Moderate left ventricular enlargement with severe LV systolic dysfunction visually estimated ejection fraction approximately 20-25% with moderate concentric left ventricular hypertrophy. (4) CHF (congestive heart failure): Qualifiers: Heart failure chronicity: acute Heart failure type: unspecified Qualified Code(s): I50.9 - Heart failure, unspecified Code(s): I50.9 - Heart failure, unspecified Status: Acute Assessment and Plan: # elevated troponin -0.165 likely secondary to AFib RVR, no chest pain. Currently the patient responding to diuresis with improvement of. Maintain leg elevation. Daily weight. Low-sodium diet. Monitor kidney function and electrolytes closely.Continue Bumex 2 mg IV b.i.d. Continue metolazone 5mg daily (5) Community acquired pneumonia: Code(s): J18.9 - Pneumonia, unspecified organism Status: Acute Assessment and Plan: # sepsis, possible pneumonia -antibiotic: Rocephin, azithromycin -afebrile, WBC down to 8.2. -chest x-ray is read as possible superimposed pneumonia -blood cultures no growth today (6) Pleural effusion on right: Code(s): J90 - Pleural effusion, not elsewhere classified Status: Acute Assessment and Plan: Follow-up pleural fluid studies. (7) Hypertension: Code(s): I10 - Essential
--- NOTE | 2021-07-24 11:26 | PM.PNNEP ---
Progress Note: A&P Assessment and Plan (1) Chronic kidney disease, unspecified: Code(s): N18.9 - Chronic kidney disease, unspecified Status: Chronic Assessment and Plan: unknown baseline creatinine but has known history of CKD - had been seeing nephrology in the past appears quite advanced kdiney disease based on evaluation to date: small kidney size by renal ultrasound - doubt mild hydro contributing urine electrolytes non-prerenal urinalysis with blood and protein creatinine on admission was 4.7mg/dl and has slowly declined during this hospitalization up to 6.7mg/dl suspected that her atrial fibrillation may precipitated her renal decline but not clear findings by Echo (EF ~ 20 - 25% with 4 chamber dilation) would also suggest a possible component of cardiorenal syndrome playing a role as well diuretics have not really improved volume status and have just worsened creatinine s/p tunneled HD catheter on 07/21/21 continue HD with fluid removal as tolerated unclear if potential for renal recovery but seems apparent that she needs dialysis at this time (for clearance, fluid removal, and optimization of electrolytes) plan next HD treatment tomorrow (2) Hypertension: Code(s): I10 - Essential (primary) hypertension Status: Chronic Assessment and Plan: long standing issues and presumably due to hyperaldosteronism based on history off spironolactone follow potassium (3) Atrial fibrillation with rapid ventricular response: Code(s): I48.91 - Unspecified atrial fibrillation Status: Acute Assessment and Plan: s/p LAUREEN with cardioversion (07/22/21) but failed to maintain NSR on amiodarone and heparin re-attempt cardioversion?? Cardiology following continue rate control strategy and anticoagulation (4) CHF (congestive heart failure): Qualifiers: Heart failure chronicity: acute Heart failure type: unspecified Qualified Code(s): I50.9 - Heart failure, unspecified Code(s): I50.9 - Heart failure, unspecified Status: Acute Assessment and Plan: volume overloaded in spite of diuretic therapy fluid removal/ultrafiltration as tolerated with dialysis follow respiratory/volume status continue diuretics since still makes some urine (5) Pleural effusion on right: Code(s): J90 - Pleural effusion, not elsewhere classified Status: Acute Assessment and Plan: s/p thoracentesis hopefully fluid removal with dialysis will keep this issue in check (6) Elevated LFTs: Code(s): R79.89 - Other specified abnormal findings of blood chemistry Status: Acute Assessment and Plan: hepatitis studies negative suspect passive congestion (7) Anemia: Code(s): D64.9 - Anemia, unspecified Status: Acute Assessment and Plan: related to CKD and acute illness Epogen with HD follow trend of H/H Will continue to follow. Subjective Date/time seen: 07/24/21 11:26 Tolerated dialysis yesteday without any issues or problems; lower extremity edema persists but appears no worse; remains in afib with relative control of heart rate; remains on amiodarone and heparin; no issues/problems overnight or earlier this AM. Exam Narrative: General: WD/WN AA female in NAD Heart: normal S1 and S2; no rub Lungs: decreased breath sounds at the bases Abdomen: soft, nontender, nondistended, positive bowel sounds Extremities: no cyanosis or clubbing; 2+ edema Skin: warm and intact Objective Data Vital Signs Vital Signs: Vital Signs Temp Pulse Resp BP Pulse Ox 07/24/21 10:00 115 H 07/24/21 08:18 126 H 07/24/21 08:14 137 H 07/24/21 08:10 126 H 07/24/21 08:00 35.7 C L 119 H 12 146/108 H 98 07/24/21 06:00 121 H 07/24/21 04:00 127 H 97 07/24/21 03:20 36.8 C 126 H 20 130/81 98 07/24/21 02:00 123 H 07/24/21 00:00 126 H 97 07/23/21 23:20
--- NOTE | 2021-07-24 11:26 | P.PNNP_ITS ---
Progress Note: A&P Assessment and Plan (1) Chronic kidney disease, unspecified: Code(s): N18.9 - Chronic kidney disease, unspecified Status: Chronic Assessment and Plan: * unknown baseline creatinine but has known history of CKD - had been seeing nephrology in the past * appears quite advanced kdiney disease based on evaluation to date: * small kidney size by renal ultrasound - doubt mild hydro contributing * urine electrolytes non-prerenal * urinalysis with blood and protein * creatinine on admission was 4.7mg/dl and has slowly declined during this hospitalization up to 6.7mg/dl * suspected that her atrial fibrillation may precipitated her renal decline but not clear * findings by Echo (EF ~ 20 - 25% with 4 chamber dilation) would also suggest a possible component of cardiorenal syndrome playing a role as well * diuretics have not really improved volume status and have just worsened creatinine * s/p tunneled HD catheter on 07/21/21 * continue HD with fluid removal as tolerated * unclear if potential for renal recovery but seems apparent that she needs dialysis at this time (for clearance, fluid removal, and optimization of electrolytes) * plan next HD treatment tomorrow (2) Hypertension: Code(s): I10 - Essential (primary) hypertension Status: Chronic Assessment and Plan: * long standing issues and presumably due to hyperaldosteronism based on history * off spironolactone * follow potassium (3) Atrial fibrillation with rapid ventricular response: Code(s): I48.91 - Unspecified atrial fibrillation Status: Acute Assessment and Plan: * s/p LAUREEN with cardioversion (07/22/21) but failed to maintain NSR * on amiodarone and heparin * re-attempt cardioversion?? * Cardiology following * continue rate control strategy and anticoagulation (4) CHF (congestive heart failure): Qualifiers: Heart failure chronicity: acute Heart failure type: unspecified Qualified Code(s): I50.9 - Heart failure, unspecified Code(s): I50.9 - Heart failure, unspecified Status: Acute Assessment and Plan: * volume overloaded in spite of diuretic therapy * fluid removal/ultrafiltration as tolerated with dialysis * follow respiratory/volume status * continue diuretics since still makes some urine (5) Pleural effusion on right: Code(s): J90 - Pleural effusion, not elsewhere classified Status: Acute Assessment and Plan: * s/p thoracentesis * hopefully fluid removal with dialysis will keep this issue in check (6) Elevated LFTs: Code(s): R79.89 - Other specified abnormal findings of blood chemistry Status: Acute Assessment and Plan: * hepatitis studies negative * suspect passive congestion (7) Anemia: Code(s): D64.9 - Anemia, unspecified Status: Acute Assessment and Plan: * related to CKD and acute illness * Epogen with HD * follow trend of H/H Will continue to follow. Subjective Date/time seen: 07/24/21 11:26 Tolerated dialysis yesteday without any issues or problems; lower extremity edema persists but appears no worse; remains in afib with relative control of heart rate; remains on amiodarone and heparin; no issues/problems overnight or earlier this AM. Exam Narrative: General: WD/WN AA female in NAD Heart: normal S1 and S2; no rub Lungs: decreased breath sounds at the bases Abdomen: soft, nontender, nondistended, positive bowel sounds Extremities: no cyanosis or
[2021-07-24 20:31] LABS: Partial Thromboplastin Time 70.1 SECONDS (22.3-36.8)
[2021-07-24 21:48] LABS: SARS-CoV-2 RNA PCR Negative
[2021-07-24] MEDS: HEPARIN SOD/D5W 100 UNITS/ML 25,000 UNITS/250 ML BAG 10 UNITS IV CONT (23:46)
[2021-07-25] VITALS (29 sets, daily range): BP systolic 120–161; BP diastolic 72–108; PULSE 68–136; RESP 14–20; TEMP 36–36.8; O2SAT 98–100
[2021-07-25 04:45] LABS: Hematocrit 30.7 % (37.0-47.0); Hemoglobin 9.9 g/dL (12.0-15.0); Mean Corpuscular HGB Conc 32.2 g/dl (32-36); Mean Corpuscular Hemoglobin 26.3 pg (26-34); Mean Corpuscular Volume 81.4 fl (80-100); Mean Platelet Volume 10.1 fl (7.4-10.4); Platelet Count Result 327 k/mm3 (150-375); Red Blood Count 3.77 M/mm3 (4.2-5.4); Red Cell Distribution Width 17.2 % (11.5-14.5); White Blood Count 9.1 K/mm3 (4.5-10.0)
[2021-07-25 04:57] LABS: Partial Thromboplastin Time 88.5 SECONDS (22.3-36.8)
[2021-07-25 05:05] LABS: Albumin Level 3.3 g/dL (3.5-5.1); Anion Gap 19 mmol/L (8-16); Blood Urea Nitrogen 83 mg/dL (7-17); Calcium 8.8 mg/dL (8.4-10.2); Carbon Dioxide 18 mmol/L (22-30); Chloride 92 mmol/L (98-107); Estimated CRCL calculation 9 ml/min; Estimated Glomerular Filt Rate 9; Glucose 116 mg/dL (65-110); Magnesium 2.6 mg/dL (1.6-2.3); Phosphorus 6.4 mg/dL (2.5-4.5); Potassium 3.5 mmol/L (3.4-5.0); Sodium 129 mmol/L (137-145)
--- NOTE | 2021-07-25 09:14 | PM.PNCARD ---
Progress Note: A&P Additional Plan 54-year-old woman with: Newly diagnosed dilated cardiomyopathy and atrial fibrillation of unknown chronicity. She has massive atrial dilation and therefore it is not surprising that cardioversion on Sunday did not restore sinus rhythm for very long. Despite her moderately rapid ventricular response she is asymptomatic at this time. In addition to this she has not been started on ARB or Entresto which would be quite beneficial for her cardiomyopathy. It is her impression today that the nephrologists have not deemed her to be dependent on dialysis apparently there is still some hope that renal function may improve. Once it is clear she will require ongoing dialysis I would also start this lady on Entresto. Since she is not greatly symptomatic at all with her AFib it would be my impression to transition her to oral amiodarone at this time and start oral Coumadin for anticoagulation. If she is stable clinically she does not have to stay in the hospital until her INR is therapeutic. It would be my preference to delay another cardioversion attempt until she has been loaded with amiodarone longer than several days. Jama Hoskins MD [facility] Subjective Date/time seen: Date of service: 07/25/21 09:14 Interval history: Cardiology follow-up for atrial fibrillation, CHF, new cardiomyopathy EF 20-25%, acute on chronic renal failure 07/20/20 patient states she feels okay sitting. Denies significant shortness of breath. Denies dizziness, palpitations. Edema persists but blames it on leaving her legs in a dependent position and not wearing compression stockings. No chest pain. Remains in AFib with RVR on telemetry. Complains of loose stools thinks it is the antibiotics she is receiving. 07/21/2020: Patient states she is feeling very good this morning. Denies shortness of breath or chest pain, does say conley feels like she is getting weak. Also states that she is urinating a lot. 07/25/2020: Patient says she feels fine and is asymptomatic this morning. Attempt at cardioverting her last Sunday restored sinus rhythm only briefly she has there in been on IV amiodarone and heparin since then all weekend. She remains moderately tachycardic but asymptomatic. She has been held NPO this morning for the possibility of another attempt at cardioversion today. Long discussion with the patient today about the strategy of rhythm versus rate control in the setting of newly diagnosed cardiomyopathy with 4 chamber dilation. Exam Narrative: PHYSICAL EXAMINATION: GENERAL: Alert, oriented, no acute distress MENTAL STATUS: affect appropriate to mood EYES: Extraocular movements intact, pallor EARS: External ears appear normal, hearing grossly normal NOSE: Normal and patent, no discharge MOUTH: Mucous membranes moist, tongue normal NECK: Supple, no JVD CHEST: clear to auscultation HEART: Tachycardia, irregularly irregular ABDOMEN: Soft, nontender NEUROLOGICAL: Alert, oriented, normal speech, no gross motor deficits MUSCULOSKELETAL: No major deformity, no amputation EXTREMITIES: Bilateral pedal edema, no clubbing, no cyanosis SKIN: no rash on the exposed area, no cyanosis PSYCHIATRIC: Normal mood, appropriate affect Const: General: comfortable and no acute distress Other: Pleasant black female sitting up in the chair. HENMT: Mouth: Yes moist mucous membranes Eyes: Sclera: sclerae normal Pupils: Equal, round and reactive pupils present Neck: Neck: supple Thyroid: thyroid normal Other: About 2-3 cm of jugular venous pressure elevated above the angle of Jose with the patient at 45 degree Resp: Effort & Inspection: normal respiratory effort Auscultation: clear to auscultation bilaterally and crackles (Fine crackles at the left base) Other: Dull at the right base Cardio: Rate: tachycardic Rhythm: abnormal rhythm irregularly irregular Heart sounds: no murmurs Other: PMI very difficult to palpate no o
[2021-07-25] MEDS: AMIODARONE 360 MG/D5W 200 ML 360 MG/200 ML BAG 16.67 MG IV CONT (09:19)
[2021-07-25 09:35] LABS: Albumin Pleural Fluid 0.9 g/dL
[2021-07-25] MEDS: SODIUM CHLORIDE 0.9% IV 1,000 ML 999 ML IV CONT (10:40)
--- NOTE | 2021-07-25 11:22 | PCNWS ---
Weekly nutritional screen. Pt screened in for 7 day length of stay. Patient is tolerating current diet with adequate intake. No weight loss reported. No nutritional needs at this time.
--- NOTE | 2021-07-25 11:37 | P.PNNP_ITS ---
Progress Note: A&P Assessment and Plan (1) Chronic kidney disease, unspecified: Code(s): N18.9 - Chronic kidney disease, unspecified Status: Chronic Assessment and Plan: * unknown baseline creatinine but has known history of CKD - had been seeing nephrology in the past * appears quite advanced kidney disease (CKD stage V) based on evaluation to date: * small kidney size by renal ultrasound - doubt mild hydro contributing * urine electrolytes non-prerenal * urinalysis with blood and protein * creatinine on admission was 4.7mg/dl and has slowly declined during this hospitalization up to 6.7mg/dl * suspected that her atrial fibrillation may precipitated her renal decline but not clear * findings by Echo (EF ~ 20 - 25% with 4 chamber dilation) would also suggest a possible component of cardiorenal syndrome playing a role as well * diuretics have not really improved volume status and have just worsened cre atinine * s/p tunneled HD catheter on 07/21/21 * continue HD with fluid removal as tolerated * unclear if potential for renal recovery but seems apparent that she needs dialysis at this time (for clearance, fluid removal, and optimization of electrolytes) * HD today and again tomorrow (2) Hypertension: Code(s): I10 - Essential (primary) hypertension Status: Chronic Assessment and Plan: * long standing issues and presumably due to hyperaldosteronism based on history * off spironolactone * follow potassium (3) Atrial fibrillation with rapid ventricular response: Code(s): I48.91 - Unspecified atrial fibrillation Status: Acute Assessment and Plan: * s/p LAUREEN with cardioversion (07/22/21) but failed to maintain NSR * on amiodarone and heparin * Cardiology following * continue rate control strategy and anticoagulation (4) CHF (congestive heart failure): Qualifiers: Heart failure chronicity: acute Heart failure type: unspecified Qualified Code(s): I50.9 - Heart failure, unspecified Code(s): I50.9 - Heart failure, unspecified Status: Acute Assessment and Plan: * volume overloaded in spite of diuretic therapy * fluid removal/ultrafiltration as tolerated with dialysis * follow respiratory/volume status * continue diuretics since still makes some urine (5) Pleural effusion on right: Code(s): J90 - Pleural effusion, not elsewhere classified Status: Acute Assessment and Plan: * s/p thoracentesis * hopefully fluid removal with dialysis will keep this issue in check (6) Elevated LFTs: Code(s): R79.89 - Other specified abnormal findings of blood chemistry Status: Acute Assessment and Plan: * hepatitis studies negative * suspect passive congestion (7) Anemia: Code(s): D64.9 - Anemia, unspecified Status: Acute Assessment and Plan: * related to CKD and acute illness * Epogen with HD * follow trend of H/H Will continue to follow. Subjective Date/time seen: 07/25/21 11:37 Tolerating dialysis at the time of my visit (seen on HD at ~ 11:30AM); major complaint is that of generalized weakness and difficulty sleeping in the hospital; her shortness of breath seems a bit better today; no other apparent issues or problems voiced at this time. Exam Narrative: General: WD/WN AA female in NAD Heart: IRRR, normal S1 and S2; no rub Lungs: decreased breath sounds at the bases Abdomen: soft, nontender, nondistended, positive bowel sounds Extremities: no cyano
--- NOTE | 2021-07-25 11:37 | PM.PNNEP ---
Progress Note: A&P Assessment and Plan (1) Chronic kidney disease, unspecified: Code(s): N18.9 - Chronic kidney disease, unspecified Status: Chronic Assessment and Plan: unknown baseline creatinine but has known history of CKD - had been seeing nephrology in the past appears quite advanced kidney disease (CKD stage V) based on evaluation to date: small kidney size by renal ultrasound - doubt mild hydro contributing urine electrolytes non-prerenal urinalysis with blood and protein creatinine on admission was 4.7mg/dl and has slowly declined during this hospitalization up to 6.7mg/dl suspected that her atrial fibrillation may precipitated her renal decline but not clear findings by Echo (EF ~ 20 - 25% with 4 chamber dilation) would also suggest a possible component of cardiorenal syndrome playing a role as well diuretics have not really improved volume status and have just worsened creatinine s/p tunneled HD catheter on 07/21/21 continue HD with fluid removal as tolerated unclear if potential for renal recovery but seems apparent that she needs dialysis at this time (for clearance, fluid removal, and optimization of electrolytes) HD today and again tomorrow (2) Hypertension: Code(s): I10 - Essential (primary) hypertension Status: Chronic Assessment and Plan: long standing issues and presumably due to hyperaldosteronism based on history off spironolactone follow potassium (3) Atrial fibrillation with rapid ventricular response: Code(s): I48.91 - Unspecified atrial fibrillation Status: Acute Assessment and Plan: s/p LAUREEN with cardioversion (07/22/21) but failed to maintain NSR on amiodarone and heparin Cardiology following continue rate control strategy and anticoagulation (4) CHF (congestive heart failure): Qualifiers: Heart failure chronicity: acute Heart failure type: unspecified Qualified Code(s): I50.9 - Heart failure, unspecified Code(s): I50.9 - Heart failure, unspecified Status: Acute Assessment and Plan: volume overloaded in spite of diuretic therapy fluid removal/ultrafiltration as tolerated with dialysis follow respiratory/volume status continue diuretics since still makes some urine (5) Pleural effusion on right: Code(s): J90 - Pleural effusion, not elsewhere classified Status: Acute Assessment and Plan: s/p thoracentesis hopefully fluid removal with dialysis will keep this issue in check (6) Elevated LFTs: Code(s): R79.89 - Other specified abnormal findings of blood chemistry Status: Acute Assessment and Plan: hepatitis studies negative suspect passive congestion (7) Anemia: Code(s): D64.9 - Anemia, unspecified Status: Acute Assessment and Plan: related to CKD and acute illness Epogen with HD follow trend of H/H Will continue to follow. Subjective Date/time seen: 07/25/21 11:37 Tolerating dialysis at the time of my visit (seen on HD at ~ 11:30AM); major complaint is that of generalized weakness and difficulty sleeping in the hospital; her shortness of breath seems a bit better today; no other apparent issues or problems voiced at this time. Exam Narrative: General: WD/WN AA female in NAD Heart: IRRR, normal S1 and S2; no rub Lungs: decreased breath sounds at the bases Abdomen: soft, nontender, nondistended, positive bowel sounds Extremities: no cyanosis or clubbing; 2+ edema Skin: no rash Objective Data Vital Signs Vital Signs: Vital Signs Temp Pulse Resp BP Pulse Ox 07/25/21 11:30 109 H 146/108 H 07/25/21 11:15 109 H 152/106 H 07/25/21 11:00 88 147/77 H 07/25/21 10:45 79 144/94 H 07/25/21 10:30 88 161/72 H 07/25/21 10:15 97 133/90 07/25/21 10:00 125 H 138/82 07/25/21 09:45 120 H 148/102 H 07/25/21 09:36 111 H 143/79 H 07/25/21 09:25 36.8 C 68
--- NOTE | 2021-07-25 12:17 | P.PNIM_ITS ---
Progress Note: A&P Assessment and Plan (1) Chronic kidney disease, unspecified: Code(s): N18.9 - Chronic kidney disease, unspecified Status: Acute Assessment and Plan: # ESRD, CKD stage 5 -patient was started on hemodialysis on 07/23/2021. She had a stable run without reported issues. -currently patient shows persistent peripheral lower extremity edema despite aggressive diuresis. She is status post thoracentesis; pleural fluid was transudative; cultures remain unrevealing;. Electrolytes are within acceptable range. May continue IV diuretics on non dialysis days. (2) Acute renal failure superimposed on chronic kidney disease: Qualifiers: Acute renal failure type: unspecified Chronic kidney disease stage: unspecified stage Qualified Code(s): N17.9 - Acute kidney failure, unspecified; N18.9 - Chronic kidney disease, unspecified Code(s): N17.9 - Acute kidney failure, unspecified; N18.9 - Chronic kidney disease, unspecified Status: Acute Assessment and Plan: It is unclear if the patient present with acute kidney injury in the setting of advance kidney disease. Certainly kidney imaging reveals small kidneys, suggesting chronic kidney disease. Dialysis initiation per nephrology. Continue IV iron supplementation with Venofer. Save nondominant arm for future access. (3) Atrial fibrillation with rapid ventricular response: Code(s): I48.91 - Unspecified atrial fibrillation Status: Acute Assessment and Plan: # AFib with RVR # CHF exacerbation -AFib with rapid ventricular response, remaining uncontrolled despite medication and 1 attempt at cardioversion. - 200 joules synched biphasic energy x1 was delivered with immediate confucianist of sinus rhythm on 07/22/2021. Twelve lead EKG was obtained postprocedure, however, pt had reverted to Afib with RVR once again after approximately 5-10 minutes. -rate control: Continue medical management. Metoprolol 50 mg q.12 hours. Continue on IV amiodarone ; per Cardiology, may consider repeating DC cardioversion after patient has been loaded with amiodarone. Continue anticoagulation with unfractionated heparin for now. Monitor aPTT closely. -anticoagulation: Heparin drip; plan to transition to NOAC at the time of discharge. -goal keep potassium greater than 4, magnesium greater than 2, patient was started on 20 mEq potassium supplement daily -appreciate cardiology consult -with fluid overload nephrology consulted, currently patient is receiving Bumex 2 mg IV b.i.d.. She may close 1 L of urine overnight. -echocardiogram revealed LEFT VENTRICLE: Moderate left ventricular enlargement with severe LV systolic dysfunction visually estimated ejection fraction approximately 20-25% with moderate concentric left ventricular hypertrophy. (4) CHF (congestive heart failure): Qualifiers: Heart failure chronicity: acute Heart failure type: unspecified Qualified Code(s): I50.9 - Heart failure, unspecified Code(s): I50.9 - Heart failure, unspecified Status: Acute Assessment and Plan: # elevated troponin -0.165 likely secondary to AFib RVR, no chest pain. Currently the patient responding to diuresis with improvement of. Maintain leg elevation. Daily weight. Low-sodium diet. Monitor kidney function and electrolytes closely.Continue Bumex 2 mg IV b.i.d. Continue metolazone 5mg daily (5) Community acquired pneumonia: Code(s): J18.9 - Pneumonia, unspecified organism Status: Acute Assessment and Plan: # sepsis, possible pneumonia -antibiotic: Rocephin, azithromycin -afebrile, WBC down to 8.2. -chest
[2021-07-25 12:29] LABS: Partial Thromboplastin Time 129.2 SECONDS (22.3-36.8)
[2021-07-25] MEDS: METOPROLOL TARTRATE 50 MG TAB 100 MG PO ×2 (12:41→18:33)
[2021-07-25] MEDS: FERROUS SULFATE 324 MG TABLET PO (12:41)
[2021-07-25] MEDS: metOLazone 5 MG TABLET PO (12:41)
[2021-07-25] MEDS: AMIODARONE HCL 200 MG TABLET 400 MG PO (12:42)
[2021-07-25] MEDS: BUMETANIDE INJ 1 MG/4 ML VIAL 2 MG IV PUSH ×2 (12:42→18:33)
[2021-07-25] MEDS: WARFARIN (*PBKC) 5 MG TABLET PO (18:33)
[2021-07-26] VITALS (34 sets, daily range): BP systolic 108–158; BP diastolic 59–107; PULSE 51–142; RESP 18–24; TEMP 35.7–37; O2SAT 93–100
[2021-07-26] MEDS: HEPARIN SOD/D5W 100 UNITS/ML 25,000 UNITS/250 ML BAG 10 UNITS IV CONT (01:59)
[2021-07-26 05:58] LABS: INR 1.5; Prothrombin Time 17.5 Seconds (11.1-14.7)
[2021-07-26 06:00] LABS: Partial Thromboplastin Time 95.6 SECONDS (22.3-36.8)
--- NOTE | 2021-07-26 06:56 | PC.NURSE ---
Patient transported to dialysis room on the third floor at 0610. Report given to Johana GODDARD.
--- NOTE | 2021-07-26 08:02 | PCOTNOTE ---
Patient in dialysis this AM, will attempt to see later this date for OT treatment.
[2021-07-26] MEDS: EPOETIN ALFA-EPBX 10,000 UNITS/ML VIAL 10000 UNITS IV PUSH (08:04)
--- NOTE | 2021-07-26 09:26 | P.PNNP_ITS ---
Progress Note: A&P Assessment and Plan (1) Chronic kidney disease, unspecified: Code(s): N18.9 - Chronic kidney disease, unspecified Status: Chronic Assessment and Plan: * unknown baseline creatinine but has known history of CKD - had been seeing nephrology in the past * appears quite advanced kidney disease (CKD stage V) based on evaluation to date: * small kidney size by renal ultrasound - doubt mild hydro contributing * urine electrolytes non-prerenal * urinalysis with blood and protein * creatinine on admission was 4.7mg/dl andslowly declined during this hospitalization up to 6.7mg/dl * suspected that her atrial fibrillation may precipitated her renal decline but not clear * findings by Echo (EF ~ 20 - 25% with 4 chamber dilation) would also suggest a possible component of cardiorenal syndrome playing a role as well * diuretics have not really improved volume status and have just worsened creatinine * s/p tunneled HD catheter on 07/21/21 for initiation of dialysis * continue HD with fluid removal as tolerated * unclear if potential for renal recovery but seems apparent that she needs dialysis at this time (for clearance, fluid removal, and optimization of electrolytes) * HD today * plan next HD on Sunday given her outpatient schedule has been finalized (Sun[facility]Sun[facility]Sun at [facility]) (2) Hypertension: Code(s): I10 - Essential (primary) hypertension Status: Chronic Assessment and Plan: * long standing issues and presumably due to hyperaldosteronism based on history * off spironolactone * reasonable control at this time * follow potassium (3) Atrial fibrillation with rapid ventricular response: Code(s): I48.91 - Unspecified atrial fibrillation Status: Acute Assessment and Plan: * s/p LAUREEN with cardioversion (07/22/21) but failed to maintain NSR * on amiodarone and heparin * Cardiology following * continue rate control strategy and anticoagulation * follow INR since on coumadin (4) CHF (congestive heart failure): Qualifiers: Heart failure chronicity: acute Heart failure type: unspecified Qualified Code(s): I50.9 - Heart failure, unspecified Code(s): I50.9 - Heart failure, unspecified Status: Acute Assessment and Plan: * doing better with ultrafiltration/dialytic intervention * continue this fluid removal as tolerated * follow respiratory/volume status * continue diuretics since still makes some urine (5) Pleural effusion on right: Code(s): J90 - Pleural effusion, not elsewhere classified Status: Acute Assessment and Plan: * s/p thoracentesis * hopefully fluid removal with dialysis will keep this issue in check (6) Elevated LFTs: Code(s): R79.89 - Other specified abnormal findings of blood chemistry Status: Acute Assessment and Plan: * hepatitis studies negative * suspect passive congestion (7) Anemia: Code(s): D64.9 - Anemia, unspecified Status: Acute Assessment and Plan: * related to CKD and acute illness * Epogen with HD * follow trend of H/H Will continue to follow. Subjective Date/time seen: 07/26/21 09:26 Tolerating dialysis at the time of my visit (seen on HD at ~ 9:15AM); tolerated dialysis treatment yesterday without any issues or problems as well; major complaint is that of difficulty sleeping here in the hospital; breathing appears to be stable and no other issues/events overnight or earlier this AM. Exam Narrative:
--- NOTE | 2021-07-26 09:26 | PM.PNNEP ---
Progress Note: A&P Assessment and Plan (1) Chronic kidney disease, unspecified: Code(s): N18.9 - Chronic kidney disease, unspecified Status: Chronic Assessment and Plan: unknown baseline creatinine but has known history of CKD - had been seeing nephrology in the past appears quite advanced kidney disease (CKD stage V) based on evaluation to date: small kidney size by renal ultrasound - doubt mild hydro contributing urine electrolytes non-prerenal urinalysis with blood and protein creatinine on admission was 4.7mg/dl andslowly declined during this hospitalization up to 6.7mg/dl suspected that her atrial fibrillation may precipitated her renal decline but not clear findings by Echo (EF ~ 20 - 25% with 4 chamber dilation) would also suggest a possible component of cardiorenal syndrome playing a role as well diuretics have not really improved volume status and have just worsened creatinine s/p tunneled HD catheter on 07/21/21 for initiation of dialysis continue HD with fluid removal as tolerated unclear if potential for renal recovery but seems apparent that she needs dialysis at this time (for clearance, fluid removal, and optimization of electrolytes) HD today plan next HD on Sunday given her outpatient schedule has been finalized (Sun[facility]Sun[facility]Sun at [facility]) (2) Hypertension: Code(s): I10 - Essential (primary) hypertension Status: Chronic Assessment and Plan: long standing issues and presumably due to hyperaldosteronism based on history off spironolactone reasonable control at this time follow potassium (3) Atrial fibrillation with rapid ventricular response: Code(s): I48.91 - Unspecified atrial fibrillation Status: Acute Assessment and Plan: s/p LAUREEN with cardioversion (07/22/21) but failed to maintain NSR on amiodarone and heparin Cardiology following continue rate control strategy and anticoagulation follow INR since on coumadin (4) CHF (congestive heart failure): Qualifiers: Heart failure chronicity: acute Heart failure type: unspecified Qualified Code(s): I50.9 - Heart failure, unspecified Code(s): I50.9 - Heart failure, unspecified Status: Acute Assessment and Plan: doing better with ultrafiltration/dialytic intervention continue this fluid removal as tolerated follow respiratory/volume status continue diuretics since still makes some urine (5) Pleural effusion on right: Code(s): J90 - Pleural effusion, not elsewhere classified Status: Acute Assessment and Plan: s/p thoracentesis hopefully fluid removal with dialysis will keep this issue in check (6) Elevated LFTs: Code(s): R79.89 - Other specified abnormal findings of blood chemistry Status: Acute Assessment and Plan: hepatitis studies negative suspect passive congestion (7) Anemia: Code(s): D64.9 - Anemia, unspecified Status: Acute Assessment and Plan: related to CKD and acute illness Epogen with HD follow trend of H/H Will continue to follow. Subjective Date/time seen: 07/26/21 09:26 Tolerating dialysis at the time of my visit (seen on HD at ~ 9:15AM); tolerated dialysis treatment yesterday without any issues or problems as well; major complaint is that of difficulty sleeping here in the hospital; breathing appears to be stable and no other issues/events overnight or earlier this AM. Exam Narrative: General: WD/WN AA female in NAD Heart: IRRR, normal S1 and S2; no rub Lungs: decreased breath sounds at the bases Abdomen: soft, nontender, nondistended, positive bowel sounds Extremities: no cyanosis or clubbing; 1 - 2+ edema Skin: no nodules Objective Data Vital Signs Vital Signs: Vital Signs Temp Pulse Resp BP Pulse Ox 07/26/21 09:00 69 127/97 H 07/26/21 08:45 87 143/71 H 07/26/21 08:30 98 136/88 07/26/21 08:15 102 H 155/88
[2021-07-26] MEDS: AMIODARONE HCL 200 MG TABLET 400 MG PO (09:51)
[2021-07-26] MEDS: BUMETANIDE INJ 1 MG/4 ML VIAL 2 MG IV PUSH ×2 (09:51→18:06)
[2021-07-26] MEDS: METOPROLOL TARTRATE 50 MG TAB 100 MG PO ×2 (09:52→18:06)
[2021-07-26] MEDS: metOLazone 5 MG TABLET PO (09:53)
[2021-07-26] MEDS: FERROUS SULFATE 324 MG TABLET PO (09:53)
--- NOTE | 2021-07-26 09:57 | PM.PNCARD ---
Progress Note: A&P Assessment and Plan (1) Atrial fibrillation with rapid ventricular response: Code(s): I48.91 - Unspecified atrial fibrillation Status: Acute Assessment and Plan: Patient status post LAUREEN guided DC cardioversion with Failure to restore sinus rhythm. IV amiodarone was switched to p.o. amiodarone yesterday. Patient is currently in atrial fibrillation with RVR with heart rates in 140s to 160s. will resume IV amiodarone, to be bridged to p.o. If heart rates are difficult to control, may add esmolol. Another attempt on DC cardioversion still remains in the event of difficult to control heart rate (with less likelihood of maintaining sinus rhythm in intermediate to long-term due to severe LA enlargement), and/or hemodynamic instability. Continue anticoagulation with unfractionated heparin for now. Monitor aPTT closely. Continue to monitor on telemetry. (2) CHF (congestive heart failure): Qualifiers: Heart failure chronicity: acute Heart failure type: unspecified Qualified Code(s): I50.9 - Heart failure, unspecified Code(s): I50.9 - Heart failure, unspecified Status: Acute Assessment and Plan: Fluid management with hemodialysis. Currently on beta-tangela. Will initiate on other standard treatment for HFrEF including ARNI, if patient is going to be on hemodialysis permanently. (3) Acute renal failure superimposed on chronic kidney disease: Qualifiers: Acute renal failure type: unspecified Chronic kidney disease stage: unspecified stage Qualified Code(s): N17.9 - Acute kidney failure, unspecified; N18.9 - Chronic kidney disease, unspecified Code(s): N17.9 - Acute kidney failure, unspecified; N18.9 - Chronic kidney disease, unspecified Status: Acute Assessment and Plan: Renal replacement therapy with hemodialysis. Management per Nephrology. Subjective Date/time seen: 07/26/21 09:57 Interval history: Cardiology follow-up for atrial fibrillation, CHF, new cardiomyopathy EF 20-25%, acute on chronic renal failure 07/20/20 patient states she feels okay sitting. Denies significant shortness of breath. Denies dizziness, palpitations. Edema persists but blames it on leaving her legs in a dependent position and not wearing compression stockings. No chest pain. Remains in AFib with RVR on telemetry. Complains of loose stools thinks it is the antibiotics she is receiving. 07/21/2020: Patient states she is feeling very good this morning. Denies shortness of breath or chest pain, does say conley feels like she is getting weak. Also states that she is urinating a lot. 07/25/2020: Patient says she feels fine and is asymptomatic this morning. Attempt at cardioverting her last Sunday restored sinus rhythm only briefly she has there in been on IV amiodarone and heparin since then all weekend. She remains moderately tachycardic but asymptomatic. She has been held NPO this morning for the possibility of another attempt at cardioversion today. Long discussion with the patient today about the strategy of rhythm versus rate control in the setting of newly diagnosed cardiomyopathy with 4 chamber dilation. 07/26/2021-patient had dialysis this morning. Her amiodarone was switched from IV to p.o. yesterday. Overnight, patient has remained in atrial fibrillation with RVR. At present, her heart rates are in 140s to 160s. At the time of evaluation, patient was eating breakfast. She denied any ongoing symptoms of chest pain, palpitations or shortness of breath. Lower extremity swelling has improved after dialysis. Exam Narrative: PHYSICAL EXAMINATION: GENERAL: Alert, oriented, no acute distress MENTAL STATUS: affect appropriate to mood EYES: Extraocular movements intact, pallor EARS: External ears appear normal, hearing grossly normal NOSE: Normal and patent, no discharge MOUTH: Mucous membranes moist, tongue normal NECK: Supple, no JVD CHEST: clear t
[2021-07-26] MEDS: AMIODARONE 360 MG/D5W 200 ML 360 MG/200 ML BAG 16.67 MG IV CONT ×2 (10:34→20:11)
--- NOTE | 2021-07-26 13:26 | PM.IMPN ---
Progress Note: A&P Assessment and Plan (1) Acute renal failure superimposed on chronic kidney disease: Qualifiers: Acute renal failure type: unspecified Chronic kidney disease stage: unspecified stage Qualified Code(s): N17.9 - Acute kidney failure, unspecified; N18.9 - Chronic kidney disease, unspecified Code(s): N17.9 - Acute kidney failure, unspecified; N18.9 - Chronic kidney disease, unspecified Status: Acute Assessment and Plan: It is unclear if the patient present with acute kidney injury in the setting of advance kidney disease. Certainly kidney imaging reveals small kidneys, suggesting chronic kidney disease. Dialysis initiation per nephrology. Continue IV iron supplementation with Venofer. Save nondominant arm for future access. -patient was started on hemodialysis on 07/23/2021. She had a stable run without reported issues. -associated with anasarca currently patient shows persistent peripheral lower extremity edema despite aggressive diuresis. She is status post thoracentesis; pleural fluid was transudative; cultures remain unrevealing;. Electrolytes are within acceptable range. (2) Atrial fibrillation with rapid ventricular response: Code(s): I48.91 - Unspecified atrial fibrillation Status: Acute Assessment and Plan: -AFib with rapid ventricular response, remaining uncontrolled despite medication and 1 attempt at cardioversion. - 200 joules synched biphasic energy x1 was delivered with immediate mormon of sinus rhythm on 07/22/2021. Twelve lead EKG was obtained postprocedure, however, pt had reverted to Afib with RVR once again after approximately 5-10 minutes. -rate control: Continue medical management. Metoprolol 50 mg q.12 hours. Continue on IV amiodarone ; per Cardiology, may consider repeating DC cardioversion after patient has been loaded with amiodarone. Continue anticoagulation with unfractionated heparin for now. Monitor aPTT closely. -anticoagulation: Heparin drip; plan to transition to NOAC at the time of discharge. -goal keep potassium greater than 4, magnesium greater than 2, daily monitoring of potassium -appreciate cardiology consult -status post cardioversion with failed ventricular response -echocardiogram revealed LEFT VENTRICLE: Moderate left ventricular enlargement with severe LV systolic dysfunction visually estimated ejection fraction approximately 20-25% with moderate concentric left ventricular hypertrophy. (3) CHF (congestive heart failure): Qualifiers: Heart failure chronicity: acute Heart failure type: unspecified Qualified Code(s): I50.9 - Heart failure, unspecified Code(s): I50.9 - Heart failure, unspecified Status: Acute Assessment and Plan: Associated with NSTEMI type 2 secondary to demand ischemia -continue diuresis and dialysis daily evaluation (4) Community acquired pneumonia: Code(s): J18.9 - Pneumonia, unspecified organism Status: Acute Assessment and Plan: Associated with sepsis -antibiotic: Rocephin, azithromycin -afebrile, WBC down to 8.2. -chest x-ray is read as possible superimposed pneumonia (5) Pleural effusion on right: Code(s): J90 - Pleural effusion, not elsewhere classified Status: Acute Assessment and Plan: Status post thoracentesis transudate (6) Hypertension: Code(s): I10 - Essential (primary) hypertension Status: Acute Assessment and Plan: Continue current treatment monitor Subjective Date/time seen: 07/26/21 13:26 Interval history: 60 years old female with past medical history of chronic renal failure hypertension presented to the hospital with generalized weakness was found to have AFib with RVR CHF exacerbation acute and of chronic renal failure cardiology nephrology was consulted patient was started on dialysis treated with Cardizem drip amiodarone Dr. and anticoagulation Echo shows ejection fraction 20% Patient fe
[2021-07-26 13:36] LABS: Basophils Absolute Auto 0.1 K/mm3 (0.0-0.1); Basophils Percent Auto 0.9 % (0.2-1.2); Eosinophils Absolute Auto 0.2 K/mm3 (0-0.3); Eosinophils Percent Auto 2.5 % (0-4.4); Hematocrit 32.7 % (37.0-47.0); Immature Granulocyte Absolute 0.25 K/mm3 (0.00-0.031); Immature Granulocyte Percent A 2.7 % (0-0.5); Lymphocytes Absolute Auto 1.11 K/mm3 (0.9-3.2); Lymphocytes Percent Auto 11.9 % (18.3-44.2); Mean Corpuscular HGB Conc 30.6 g/dl (32-36); Mean Corpuscular Hemoglobin 25.9 pg (26-34); Mean Corpuscular Volume 84.7 fl (80-100); Mean Platelet Volume 10.9 fl (7.4-10.4); Monocytes Absolute Auto 0.9 K/mm3 (0.1-0.6); Monocytes Percent Auto 9.8 % (2.6-8.5); Neutrophils Absolute Auto 6.8 K/mm3 (1.3-6.7); Neutrophils Percent Auto 72.2 % (45.5-73.1); Nucleated Red Blood Cells Absolute Auto 0.1 K/mm3 (0.0-0.012); Platelet Count Result 337 k/mm3 (150-375); Red Blood Count 3.86 M/mm3 (4.2-5.4); White Blood Count 9.4 K/mm3 (4.5-10.0)
[2021-07-26 13:45] LABS: Alanine Aminotransferase 85 U/L (4-35); Albumin Level 3.4 g/dL (3.5-5.1); Alkaline Phosphatase 100 U/L (38-126); Anion Gap 16 mmol/L (8-16); Aspartate Amino Transferase 34 U/L (14-36); Bilirubin,Total 0.3 mg/dL (0.2-1.3); Blood Urea Nitrogen 51 mg/dL (7-17); Calcium 8.6 mg/dL (8.4-10.2); Carbon Dioxide 23 mmol/L (22-30); Chloride 93 mmol/L (98-107); Estimated CRCL calculation 11 ml/min; Estimated Glomerular Filt Rate 11; Glucose 96 mg/dL (65-110); Potassium 3.4 mmol/L (3.4-5.0); Sodium 132 mmol/L (137-145)
[2021-07-26] MEDS: POTASSIUM CHLORIDE 20 MEQ TABLET 40 MEQ PO (14:40)
[2021-07-26] MEDS: WARFARIN (*PBKC) 5 MG TABLET PO (18:07)
[2021-07-27] VITALS (19 sets, daily range): BP systolic 120–153; BP diastolic 89–103; PULSE 60–96; RESP 16–22; TEMP 35.7–36.7; O2SAT 96–100
[2021-07-27] MEDS: HEPARIN SOD/D5W 100 UNITS/ML 25,000 UNITS/250 ML BAG 10 UNITS IV CONT (03:00)
[2021-07-27 05:34] LABS: Basophils Absolute Auto 0.1 K/mm3 (0.0-0.1); Basophils Percent Auto 0.4 % (0.2-1.2); Eosinophils Percent Auto 0.3 % (0-4.4); Hematocrit 33.4 % (37.0-47.0); Hemoglobin 10.2 g/dL (12.0-15.0); Immature Granulocyte Absolute 0.27 K/mm3 (0.00-0.031); Lymphocytes Absolute Auto 1.11 K/mm3 (0.9-3.2); Lymphocytes Percent Auto 8.3 % (18.3-44.2); Mean Corpuscular HGB Conc 30.5 g/dl (32-36); Mean Corpuscular Volume 85.2 fl (80-100); Mean Platelet Volume 10.1 fl (7.4-10.4); Monocytes Percent Auto 7.7 % (2.6-8.5); Neutrophils Absolute Auto 10.8 K/mm3 (1.3-6.7); Neutrophils Percent Auto 81.3 % (45.5-73.1); Nucleated Red Blood Cells Absolute Auto 0.1 K/mm3 (0.0-0.012); Platelet Count Result 322 k/mm3 (150-375); Red Blood Count 3.92 M/mm3 (4.2-5.4); Red Cell Distribution Width 18.6 % (11.5-14.5); White Blood Count 13.3 K/mm3 (4.5-10.0)
[2021-07-27 05:48] LABS: Alanine Aminotransferase 39 U/L (4-35); Albumin Level 3.3 g/dL (3.5-5.1); Alkaline Phosphatase 102 U/L (38-126); Anion Gap 16 mmol/L (8-16); Aspartate Amino Transferase 49 U/L (14-36); Bilirubin,Total 0.3 mg/dL (0.2-1.3); Blood Urea Nitrogen 32 mg/dL (7-17); Calcium 8.5 mg/dL (8.4-10.2); Carbon Dioxide 22 mmol/L (22-30); Chloride 92 mmol/L (98-107); Estimated CRCL calculation 14 ml/min; Estimated Glomerular Filt Rate 15; Glucose 144 mg/dL (65-110); Potassium 4.1 mmol/L (3.4-5.0); Sodium 130 mmol/L (137-145)
[2021-07-27 05:52] LABS: Prothrombin Time 30.4 Seconds (11.1-14.7)
--- NOTE | 2021-07-27 05:54 | ECG_ITS ---
Measurements Intervals [place] Rate: 66 P: 29 [place]: 114 QRS: 31 QRSD: 104 T: 149 QT: 397 QTc: 416 Interpretive Statements SINUS RHYTHM WITH SHORT [place] INTERVAL POSSIBLE LEFT ATRIAL ENLARGEMENT BORDERLINE R WAVE PROGRESSION, ANTERIOR LEADS ST-T WAVE ABNORMALITY IN HIGH LATERAL LEADS- CONSIDER ISCHEMIA BASELINE ARTIFACT- I, II, AVR ABNORMAL ECG Electronically Signed On 07-27-2021 6:37:51 MARKER DELIVERY by Irwin Ureña D.O.
[2021-07-27] MEDS: AMIODARONE 360 MG/D5W 200 ML 360 MG/200 ML BAG 16.67 MG IV CONT ×2 (06:17→21:29)
[2021-07-27] MEDS: HEPARIN SODIUM 5,000 UNITS/ML VIAL 5000 UNITS IV PUSH (07:00)
[2021-07-27] MEDS: metOLazone 5 MG TABLET PO (08:15)
[2021-07-27] MEDS: BUMETANIDE INJ 1 MG/4 ML VIAL 2 MG IV PUSH ×2 (08:15→18:07)
[2021-07-27] MEDS: FERROUS SULFATE 324 MG TABLET PO (08:15)
[2021-07-27] MEDS: METOPROLOL TARTRATE 50 MG TAB 100 MG PO ×2 (08:15→18:07)
[2021-07-27 10:28] LABS: Vitamin D 1,25 (OH)2 Total 16 pg/mL (18-72); Vitamin D2 1,25 (OH)2 <8 pg/mL; Vitamin D3 1,25 (OH)2 16 pg/mL
--- NOTE | 2021-07-27 11:32 | PM.IMPN ---
Progress Note: A&P Assessment and Plan (1) Acute renal failure superimposed on chronic kidney disease: Qualifiers: Acute renal failure type: unspecified Chronic kidney disease stage: unspecified stage Qualified Code(s): N17.9 - Acute kidney failure, unspecified; N18.9 - Chronic kidney disease, unspecified Code(s): N17.9 - Acute kidney failure, unspecified; N18.9 - Chronic kidney disease, unspecified Status: Acute Assessment and Plan: It is unclear if the patient present with acute kidney injury in the setting of advance kidney disease. Certainly kidney imaging reveals small kidneys, suggesting chronic kidney disease. Dialysis initiation per nephrology. Continue IV iron supplementation with Venofer. Save nondominant arm for future access. -patient was started on hemodialysis on 07/23/2021. She had a stable run without reported issues. -associated with anasarca currently patient shows persistent peripheral lower extremity edema despite aggressive diuresis. She is status post thoracentesis; pleural fluid was transudative; cultures remain unrevealing;. Electrolytes are within acceptable range. (2) Atrial fibrillation with rapid ventricular response: Code(s): I48.91 - Unspecified atrial fibrillation Status: Acute Assessment and Plan: -AFib with rapid ventricular response, remaining uncontrolled despite medication and 1 attempt at cardioversion. - 200 joules synched biphasic energy x1 was delivered with immediate religion of sinus rhythm on 07/22/2021. Twelve lead EKG was obtained postprocedure, however, pt had reverted to Afib with RVR once again after approximately 5-10 minutes. -rate control: Continue medical management. Metoprolol 50 mg q.12 hours. Continue on IV amiodarone ; per Cardiology, may consider repeating DC cardioversion after patient has been loaded with amiodarone. Continue anticoagulation with unfractionated heparin for now. Monitor aPTT closely. -anticoagulation: Heparin drip; plan to transition to NOAC at the time of discharge. -goal keep potassium greater than 4, magnesium greater than 2, daily monitoring of potassium -appreciate cardiology consult -status post cardioversion with failed ventricular response -echocardiogram revealed LEFT VENTRICLE: Moderate left ventricular enlargement with severe LV systolic dysfunction visually estimated ejection fraction approximately 20-25% with moderate concentric left ventricular hypertrophy. No change (3) CHF (congestive heart failure): Qualifiers: Heart failure chronicity: acute Heart failure type: unspecified Qualified Code(s): I50.9 - Heart failure, unspecified Code(s): I50.9 - Heart failure, unspecified Status: Acute Assessment and Plan: Associated with NSTEMI type 2 secondary to demand ischemia -continue diuresis and dialysis daily evaluation No improvement (4) Community acquired pneumonia: Code(s): J18.9 - Pneumonia, unspecified organism Status: Acute Assessment and Plan: Associated with sepsis -antibiotic: Rocephin, azithromycin -afebrile, has leukocytosis -chest x-ray is read as possible superimposed pneumonia (5) Pleural effusion on right: Code(s): J90 - Pleural effusion, not elsewhere classified Status: Acute Assessment and Plan: Status post thoracentesis transudate (6) Hypertension: Code(s): I10 - Essential (primary) hypertension Status: Acute Assessment and Plan: Continue current treatment monitor Subjective Date/time seen: 07/27/21 11:32 Interval history: 60 years old female with past medical history of chronic renal failure hypertension presented to the hospital with generalized weakness was found to have AFib with RVR CHF exacerbation acute and of chronic renal failure cardiology nephrology was consulted patient was started on dialysis treated with Cardizem drip amiodarone DrJessie and anticoagulation Echo shows ejection
[2021-07-27 14:59] LABS: Partial Thromboplastin Time > 200.0 SECONDS (22.3-36.8)
--- NOTE | 2021-07-27 15:09 | PM.PNCARD ---
Progress Note: A&P Assessment and Plan (1) Atrial fibrillation with rapid ventricular response: Code(s): I48.91 - Unspecified atrial fibrillation Status: Acute Assessment and Plan: Patient status post LAUREEN guided DC cardioversion with failure to restore sinus rhythm. IV amiodarone was added to her p.o. does as she remained in AFib with RVR with a rate the 140s to 160s. Overnight last night she converted to sinus rhythm and remains in sinus rhythm with a rate in the 60s right now. Will transition her off of IV amiodarone tomorrow morning, will increase her p.o. amiodarone dose to 400 mg p.o. b.i.d. for several days, then decrease dose to 400 mg daily for 1 week, then 200 mg daily as a maintenance dose. She has been initiated on warfarin for anticoagulation. Her INR is therapeutic today-her heparin can be discontinued. Her INR increased from 1.5-3.0 and 1 day. I am going to decrease her warfarin to 4 mg tonight. Daily INR. (2) CHF (congestive heart failure): Qualifiers: Heart failure chronicity: acute Heart failure type: unspecified Qualified Code(s): I50.9 - Heart failure, unspecified Code(s): I50.9 - Heart failure, unspecified Status: Acute Assessment and Plan: Fluid management with hemodialysis Currently on beta-tangela. Will initiate on other standard treatment for HFrEF including ARNI, if patient is going to be on hemodialysis permanently. Discussed LifeVest with her. I explained to her that she is at increased risk for sudden cardiac due to her severely reduced systolic function. I provided her the rationale for life vest and potential permanent ICD. She would like to think about the option of a LifeVest and I will follow up with her tomorrow in regards to this. (3) Acute renal failure superimposed on chronic kidney disease: Qualifiers: Acute renal failure type: unspecified Chronic kidney disease stage: unspecified stage Qualified Code(s): N17.9 - Acute kidney failure, unspecified; N18.9 - Chronic kidney disease, unspecified Code(s): N17.9 - Acute kidney failure, unspecified; N18.9 - Chronic kidney disease, unspecified Status: Acute Assessment and Plan: Renal replacement therapy with hemodialysis. Management per Nephrology. Subjective Date/time seen: 07/27/21 15:09 Interval history: Cardiology follow-up for atrial fibrillation, CHF, new cardiomyopathy EF 20-25%, acute on chronic renal failure 07/20/20 patient states she feels okay sitting. Denies significant shortness of breath. Denies dizziness, palpitations. Edema persists but blames it on leaving her legs in a dependent position and not wearing compression stockings. No chest pain. Remains in AFib with RVR on telemetry. Complains of loose stools thinks it is the antibiotics she is receiving. 07/21/2020: Patient states she is feeling very good this morning. Denies shortness of breath or chest pain, does say conley feels like she is getting weak. Also states that she is urinating a lot. 07/25/2020: Patient says she feels fine and is asymptomatic this morning. Attempt at cardioverting her last Sunday restored sinus rhythm only briefly she has there in been on IV amiodarone and heparin since then all weekend. She remains moderately tachycardic but asymptomatic. She has been held NPO this morning for the possibility of another attempt at cardioversion today. Long discussion with the patient today about the strategy of rhythm versus rate control in the setting of newly diagnosed cardiomyopathy with 4 chamber dilation. 07/26/2021-patient had dialysis this morning. Her amiodarone was switched from IV to p.o. yesterday. Overnight, patient has remained in atrial fibrillation with RVR. At present, her heart rates are in 140s to 160s. At the time of evaluation, patient was eating breakfast. She denied any ongoing symptoms of chest pain, palpitations or shortness of breath. Lower extremity swelling badillo
--- NOTE | 2021-07-27 17:01 | P.PNNP_ITS ---
Progress Note: A&P Assessment and Plan (1) Chronic kidney disease, unspecified: Code(s): N18.9 - Chronic kidney disease, unspecified Status: Chronic Assessment and Plan: * unknown baseline creatinine but has known history of CKD - had been seeing nephrology in the past * appears quite advanced kidney disease (CKD stage V) based on evaluation to date: * small kidney size by renal ultrasound - doubt mild hydro contributing * urine electrolytes non-prerenal * urinalysis with blood and protein * creatinine on admission was 4.7mg/dl andslowly declined during this hospitalization up to 6.7mg/dl * suspected that her atrial fibrillation may precipitated her renal decline but not clear * findings by Echo (EF ~ 20 - 25% with 4 chamber dilation) would also suggest a possible component of cardiorenal syndrome playing a role as well * use of IV diuretics have not really improved volume status and have just led to a worsened creatinine * s/p tunneled HD catheter on 07/21/21 for initiation of dialysis * continue HD with fluid removal as tolerated * unclear if potential for renal recovery but seems apparent that she needs dialysis at this time (for clearance, fluid removal, and optimization of electrolytes) * plan next HD treatment on Sunday given her outpatient schedule has been finalized (Sun/Sun/Sun at [facility]) (2) Hypertension: Code(s): I10 - Essential (primary) hypertension Status: Chronic Assessment and Plan: * long standing issues and presumably due to hyperaldosteronism based on history * off spironolactone * reasonable control at this time * follow potassium (3) Atrial fibrillation with rapid ventricular response: Code(s): I48.91 - Unspecified atrial fibrillation Status: Acute Assessment and Plan: * s/p LAUREEN with cardioversion (07/22/21) but failed to maintain NSR * on amiodarone and heparin * Cardiology following * continue rate control strategy and anticoagulation * follow INR since on coumadin (4) CHF (congestive heart failure): Qualifiers: Heart failure chronicity: acute Heart failure type: unspecified Quali fied Code(s): I50.9 - Heart failure, unspecified Code(s): I50.9 - Heart failure, unspecified Status: Acute Assessment and Plan: * doing better with ultrafiltration/dialytic intervention * continue this fluid removal as tolerated * follow respiratory/volume status * continue diuretics since still makes some urine (5) Pleural effusion on right: Code(s): J90 - Pleural effusion, not elsewhere classified Status: Acute Assessment and Plan: * s/p thoracentesis * hopefully fluid removal with dialysis will keep this issue in check (6) Elevated LFTs: Code(s): R79.89 - Other specified abnormal findings of blood chemistry Status: Acute Assessment and Plan: * hepatitis studies negative * suspect passive congestion (7) Anemia: Code(s): D64.9 - Anemia, unspecified Status: Acute Assessment and Plan: * related to CKD and acute illness * Epogen with HD * follow trend of H/H Will continue to follow. Subjective Date/time seen: 07/27/21 17:01 Tolerated dialysis yesterday without any issue or problems; breathing/respiratory status appears to be slowly improving; still has some issues with swelling/edema but it is somewhat better; no other acute issues/events overnight or earlier this AM. Exam Narrative: General: WD/WN AA female
--- NOTE | 2021-07-27 17:01 | PM.PNNEP ---
Progress Note: A&P Assessment and Plan (1) Chronic kidney disease, unspecified: Code(s): N18.9 - Chronic kidney disease, unspecified Status: Chronic Assessment and Plan: unknown baseline creatinine but has known history of CKD - had been seeing nephrology in the past appears quite advanced kidney disease (CKD stage V) based on evaluation to date: small kidney size by renal ultrasound - doubt mild hydro contributing urine electrolytes non-prerenal urinalysis with blood and protein creatinine on admission was 4.7mg/dl andslowly declined during this hospitalization up to 6.7mg/dl suspected that her atrial fibrillation may precipitated her renal decline but not clear findings by Echo (EF ~ 20 - 25% with 4 chamber dilation) would also suggest a possible component of cardiorenal syndrome playing a role as well use of IV diuretics have not really improved volume status and have just led to a worsened creatinine s/p tunneled HD catheter on 07/21/21 for initiation of dialysis continue HD with fluid removal as tolerated unclear if potential for renal recovery but seems apparent that she needs dialysis at this time (for clearance, fluid removal, and optimization of electrolytes) plan next HD treatment on Sunday given her outpatient schedule has been finalized (Sun/Sun[facility]Sun at [facility]) (2) Hypertension: Code(s): I10 - Essential (primary) hypertension Status: Chronic Assessment and Plan: long standing issues and presumably due to hyperaldosteronism based on history off spironolactone reasonable control at this time follow potassium (3) Atrial fibrillation with rapid ventricular response: Code(s): I48.91 - Unspecified atrial fibrillation Status: Acute Assessment and Plan: s/p LAUREEN with cardioversion (07/22/21) but failed to maintain NSR on amiodarone and heparin Cardiology following continue rate control strategy and anticoagulation follow INR since on coumadin (4) CHF (congestive heart failure): Qualifiers: Heart failure chronicity: acute Heart failure type: unspecified Qualified Code(s): I50.9 - Heart failure, unspecified Code(s): I50.9 - Heart failure, unspecified Status: Acute Assessment and Plan: doing better with ultrafiltration/dialytic intervention continue this fluid removal as tolerated follow respiratory/volume status continue diuretics since still makes some urine (5) Pleural effusion on right: Code(s): J90 - Pleural effusion, not elsewhere classified Status: Acute Assessment and Plan: s/p thoracentesis hopefully fluid removal with dialysis will keep this issue in check (6) Elevated LFTs: Code(s): R79.89 - Other specified abnormal findings of blood chemistry Status: Acute Assessment and Plan: hepatitis studies negative suspect passive congestion (7) Anemia: Code(s): D64.9 - Anemia, unspecified Status: Acute Assessment and Plan: related to CKD and acute illness Epogen with HD follow trend of H/H Will continue to follow. Subjective Date/time seen: 07/27/21 17:01 Tolerated dialysis yesterday without any issue or problems; breathing/respiratory status appears to be slowly improving; still has some issues with swelling/edema but it is somewhat better; no other acute issues/events overnight or earlier this AM. Exam Narrative: General: WD/WN AA female in NAD Heart: IRRR, normal S1 and S2; no rub Lungs: decreased breath sounds at the bases Abdomen: soft, nontender, nondistended, positive bowel sounds Extremities: no cyanosis or clubbing; 1 - 2+ edema Skin: no nodules Objective Data Vital Signs Vital Signs: Vital Signs Temp Pulse Resp BP Pulse Ox 07/27/21 16:00 61 07/27/21 14:00 60 07/27/21 12:26 36.2 C L 61 22 H 135/94 H 97 07/27/21 12:00 61 07/27/21 11:03 96 07/27/21 10
[2021-07-27] MEDS: WARFARIN (*PBKC) 4 MG TABLET PO (18:08)
[2021-07-28] VITALS (13 sets, daily range): BP systolic 133–156; BP diastolic 89–109; PULSE 55–66; RESP 16–20; TEMP 36.4–36.9; O2SAT 97–100
[2021-07-28 05:06] LABS: Basophils Absolute Auto 0.1 K/mm3 (0.0-0.1); Basophils Percent Auto 0.7 % (0.2-1.2); Eosinophils Absolute Auto 0.2 K/mm3 (0-0.3); Eosinophils Percent Auto 1.5 % (0-4.4); Hematocrit 31.9 % (37.0-47.0); Hemoglobin 9.9 g/dL (12.0-15.0); Immature Granulocyte Absolute 0.24 K/mm3 (0.00-0.031); Immature Granulocyte Percent A 2.2 % (0-0.5); Lymphocytes Absolute Auto 1.12 K/mm3 (0.9-3.2); Lymphocytes Percent Auto 10.1 % (18.3-44.2); Mean Corpuscular Hemoglobin 25.9 pg (26-34); Mean Corpuscular Volume 83.5 fl (80-100); Mean Platelet Volume 10.4 fl (7.4-10.4); Monocytes Absolute Auto 1.2 K/mm3 (0.1-0.6); Monocytes Percent Auto 10.6 % (2.6-8.5); Neutrophils Absolute Auto 8.3 K/mm3 (1.3-6.7); Neutrophils Percent Auto 74.9 % (45.5-73.1); Nucleated Red Blood Cells Absolute Auto 0.1 K/mm3 (0.0-0.012); Nucleated Red Blood Cells Perc 1.2 % (0.0-0.2); Platelet Count Result 302 k/mm3 (150-375); Red Blood Count 3.82 M/mm3 (4.2-5.4); Red Cell Distribution Width 18.2 % (11.5-14.5); White Blood Count 11.1 K/mm3 (4.5-10.0)
[2021-07-28 05:30] LABS: Alanine Aminotransferase 50 U/L (4-35); Albumin Level 3.3 g/dL (3.5-5.1); Alkaline Phosphatase 103 U/L (38-126); Anion Gap 15 mmol/L (8-16); Aspartate Amino Transferase 44 U/L (14-36); Bilirubin,Total 0.3 mg/dL (0.2-1.3); Blood Urea Nitrogen 38 mg/dL (7-17); Calcium 9.1 mg/dL (8.4-10.2); Carbon Dioxide 22 mmol/L (22-30); Chloride 90 mmol/L (98-107); Estimated CRCL calculation 12 ml/min; Estimated Glomerular Filt Rate 12; Glucose 115 mg/dL (65-110); Potassium 5.5 mmol/L (3.4-5.0); Sodium 127 mmol/L (137-145)
[2021-07-28] MEDS: metOLazone 5 MG TABLET PO (08:15)
[2021-07-28] MEDS: AMIODARONE HCL 200 MG TABLET 400 MG PO ×2 (08:15→17:05)
[2021-07-28] MEDS: BUMETANIDE INJ 1 MG/4 ML VIAL 2 MG IV PUSH ×2 (08:15→17:05)
[2021-07-28] MEDS: METOPROLOL TARTRATE 50 MG TAB 100 MG PO ×2 (08:15→17:05)
[2021-07-28] MEDS: FERROUS SULFATE 324 MG TABLET PO (08:15)
[2021-07-28 08:42] LABS: INR 5.2
--- NOTE | 2021-07-28 09:36 | PM.PNCARD ---
Progress Note: A&P Assessment and Plan (1) Atrial fibrillation with rapid ventricular response: Code(s): I48.91 - Unspecified atrial fibrillation Status: Acute Assessment and Plan: Patient status post LAUREEN guided DC cardioversion with failure to restore sinus rhythm. She remains in sinus rhythm/sinus sylvia this morning. IV amiodarone has been discontinued. Will increase her p.o. amiodarone dose to 400 mg p.o. b.i.d. for 4 days, then decrease to 400 mg daily for 1 week, then 200 mg daily as a maintenance dose. She has been initiated on warfarin for anticoagulation. INR supratherapeutic at 5.2 this morning. Hold Coumadin tonight, vitamin K ordered per hospitalist. (2) CHF (congestive heart failure): Qualifiers: Heart failure chronicity: acute Heart failure type: unspecified Qualified Code(s): I50.9 - Heart failure, unspecified Code(s): I50.9 - Heart failure, unspecified Status: Acute Assessment and Plan: Newly diagnosed cardiomyopathy with an ejection fraction of 20-25%. Fluid management with hemodialysis, also on IV bumex GDMT for HRrEF including beta-tangela, ARB (added losartan today). Unable to initiate PHILIP/ARNI due to PHILIP allergy. Unable to use SGLT 2 inhibitor due to renal function Life vest has been ordered (3) Acute renal failure superimposed on chronic kidney disease: Qualifiers: Acute renal failure type: unspecified Chronic kidney disease stage: unspecified stage Qualified Code(s): N17.9 - Acute kidney failure, unspecified; N18.9 - Chronic kidney disease, unspecified Code(s): N17.9 - Acute kidney failure, unspecified; N18.9 - Chronic kidney disease, unspecified Status: Acute Assessment and Plan: Renal replacement therapy with hemodialysis. Management per Nephrology. Subjective Date/time seen: 07/28/21 09:36 Interval history: Cardiology follow-up for atrial fibrillation, CHF, new cardiomyopathy EF 20-25%, acute on chronic renal failure 07/20/20 patient states she feels okay sitting. Denies significant shortness of breath. Denies dizziness, palpitations. Edema persists but blames it on leaving her legs in a dependent position and not wearing compression stockings. No chest pain. Remains in AFib with RVR on telemetry. Complains of loose stools thinks it is the antibiotics she is receiving. 07/21/2020: Patient states she is feeling very good this morning. Denies shortness of breath or chest pain, does say conley feels like she is getting weak. Also states that she is urinating a lot. 07/25/2020: Patient says she feels fine and is asymptomatic this morning. Attempt at cardioverting her last Sunday restored sinus rhythm only briefly she has there in been on IV amiodarone and heparin since then all weekend. She remains moderately tachycardic but asymptomatic. She has been held NPO this morning for the possibility of another attempt at cardioversion today. Long discussion with the patient today about the strategy of rhythm versus rate control in the setting of newly diagnosed cardiomyopathy with 4 chamber dilation. 07/26/2021-patient had dialysis this morning. Her amiodarone was switched from IV to p.o. yesterday. Overnight, patient has remained in atrial fibrillation with RVR. At present, her heart rates are in 140s to 160s. At the time of evaluation, patient was eating breakfast. She denied any ongoing symptoms of chest pain, palpitations or shortness of breath. Lower extremity swelling has improved after dialysis. Date of service 07/27/2021: She feels okay today but is very tired. She says she is unable to sleep well in the hospital due to all the disturbances. Swelling is slightly better but she does still moderate lower extremity edema Date of service 07/28/2021: I feel fine. ? She does say she feels weak from lying in bed. She also noticed that when she stood up and ambulate around her room she began to develop worsening lower extr
--- NOTE | 2021-07-28 11:31 | PM.IMPN ---
Progress Note: A&P Assessment and Plan (1) Acute renal failure superimposed on chronic kidney disease: Qualifiers: Acute renal failure type: unspecified Chronic kidney disease stage: unspecified stage Qualified Code(s): N17.9 - Acute kidney failure, unspecified; N18.9 - Chronic kidney disease, unspecified Code(s): N17.9 - Acute kidney failure, unspecified; N18.9 - Chronic kidney disease, unspecified Status: Acute Assessment and Plan: It is unclear if the patient present with acute kidney injury in the setting of advance kidney disease. Certainly kidney imaging reveals small kidneys, suggesting chronic kidney disease. Dialysis initiation per nephrology. Continue IV iron supplementation with Venofer. Save nondominant arm for future access. -patient was started on hemodialysis on 07/23/2021. She had a stable run without reported issues. -associated with anasarca currently patient shows persistent peripheral lower extremity edema despite aggressive diuresis. She is status post thoracentesis; pleural fluid was transudative; cultures remain unrevealing;. Electrolytes are within acceptable range. (2) Atrial fibrillation with rapid ventricular response: Code(s): I48.91 - Unspecified atrial fibrillation Status: Acute Assessment and Plan: -AFib with rapid ventricular response, remaining uncontrolled despite medication and 1 attempt at cardioversion. - 200 joules synched biphasic energy x1 was delivered with immediate anabaptism of sinus rhythm on 07/22/2021. Twelve lead EKG was obtained postprocedure, however, pt had reverted to Afib with RVR once again after approximately 5-10 minutes. -rate control: Continue medical management. Metoprolol 50 mg q.12 hours. Continue on IV amiodarone ; per Cardiology, may consider repeating DC cardioversion after patient has been loaded with amiodarone. Continue anticoagulation with unfractionated heparin for now. Monitor aPTT closely. -anticoagulation: Heparin drip; plan to transition to NOAC at the time of discharge. -goal keep potassium greater than 4, magnesium greater than 2, daily monitoring of potassium -appreciate cardiology consult -status post cardioversion with failed ventricular response -echocardiogram revealed LEFT VENTRICLE: Moderate left ventricular enlargement with severe LV systolic dysfunction visually estimated ejection fraction approximately 20-25% with moderate concentric left ventricular hypertrophy. -On 07/28/2021 cardiology started amiodarone tapering/ amiodarone dose to 400 mg p.o. b.i.d. for 4 days, then decrease to 400 mg daily for 1 week, then 200 mg daily as a maintenance dose (3) CHF (congestive heart failure): Qualifiers: Heart failure chronicity: acute Heart failure type: unspecified Qualified Code(s): I50.9 - Heart failure, unspecified Code(s): I50.9 - Heart failure, unspecified Status: Acute Assessment and Plan: Associated with NSTEMI type 2 secondary to demand ischemia -continue diuresis and dialysis daily evaluation No improvement (4) Community acquired pneumonia: Code(s): J18.9 - Pneumonia, unspecified organism Status: Acute Assessment and Plan: Associated with sepsis -antibiotic: Status post Rocephin, azithromycin -afebrile, has leukocytosis -chest x-ray is read as possible superimposed pneumonia (5) Pleural effusion on right: Code(s): J90 - Pleural effusion, not elsewhere classified Status: Acute Assessment and Plan: Status post thoracentesis transudate (6) Hypertension: Code(s): I10 - Essential (primary) hypertension Status: Acute Assessment and Plan: Continue current treatment monitor (7) Supratherapeutic INR: Code(s): R79.1 - Abnormal coagulation profile Status: Acute Assessment and Plan: Hold Coumadin follow daily INR Give vitamin K 1.25 mg p.o. x1 Subjective Date/time seen: 07/28/21 11:31 Interv
[2021-07-28] MEDS: PHYTONADIONE 2.5 MG TAB 1.25 MG PO (11:32)
--- NOTE | 2021-07-28 17:09 | PM.PNNEP ---
Progress Note: A&P Assessment and Plan (1) Chronic kidney disease, unspecified: Code(s): N18.9 - Chronic kidney disease, unspecified Status: Chronic Assessment and Plan: unknown baseline creatinine but has known history of CKD - had been seeing nephrology in the past appears quite advanced kidney disease (CKD stage V) based on evaluation to date: small kidney size by renal ultrasound - doubt mild hydro contributing urine electrolytes non-prerenal urinalysis with blood and protein creatinine on admission was 4.7mg/dl andslowly declined during this hospitalization up to 6.7mg/dl suspected that her atrial fibrillation may precipitated her renal decline but not clear findings by Echo (EF ~ 20 - 25% with 4 chamber dilation) would also suggest a possible component of cardiorenal syndrome playing a role as well use of IV diuretics have not really improved volume status and have just led to a worsened creatinine s/p tunneled HD catheter on 07/21/21 for initiation of dialysis continue HD with fluid removal as tolerated unclear if potential for renal recovery but seems apparent that she needs dialysis at this time (for clearance, fluid removal, and optimization of electrolytes) HD tomorrow given her outpatient schedule has been finalized (Sun/Sun[facility]Sun at [facility]) (2) Hypertension: Code(s): I10 - Essential (primary) hypertension Status: Chronic Assessment and Plan: long standing issues and presumably due to hyperaldosteronism based on history off spironolactone reasonable control at this time follow potassium (3) Atrial fibrillation with rapid ventricular response: Code(s): I48.91 - Unspecified atrial fibrillation Status: Acute Assessment and Plan: s/p LAUREEN with cardioversion (07/22/21) but failed to maintain NSR on amiodarone and heparin Cardiology following continue rate control strategy and anticoagulation follow INR since on coumadin (4) CHF (congestive heart failure): Qualifiers: Heart failure chronicity: acute Heart failure type: unspecified Qualified Code(s): I50.9 - Heart failure, unspecified Code(s): I50.9 - Heart failure, unspecified Status: Acute Assessment and Plan: doing better with ultrafiltration/dialytic intervention continue this fluid removal as tolerated follow respiratory/volume status continue diuretics since still makes some urine (5) Pleural effusion on right: Code(s): J90 - Pleural effusion, not elsewhere classified Status: Acute Assessment and Plan: s/p thoracentesis hopefully fluid removal with dialysis will keep this issue in check (6) Elevated LFTs: Code(s): R79.89 - Other specified abnormal findings of blood chemistry Status: Acute Assessment and Plan: hepatitis studies negative suspect passive congestion (7) Anemia: Code(s): D64.9 - Anemia, unspecified Status: Acute Assessment and Plan: related to CKD and acute illness Epogen with HD follow trend of H/H Will continue to follow. Subjective Date/time seen: 07/28/21 17:09 Appears to be doing reasonably well at the time of my visit; still with some on/off issue with faigue; amiodarone being tapered down and remains on coumadin; breathing/lower extremity edema continues to slowly improve; no other issues/events noted overnight or earlier his morning. Exam Narrative: General: WD/WN AA female in NAD Heart: IRRR, normal S1 and S2; no rub Lungs: decreased breath sounds at the bases Abdomen: soft, nontender, nondistended, positive bowel sounds Extremities: no cyanosis or clubbing; 1+ edema Skin: warm and dry Objective Data Vital Signs Vital Signs: Vital Signs Temp Pulse Resp BP Pulse Ox 07/28/21 17:05 66 07/28/21 16:00 36.9 C 59 L 20 152/109 H 100 07/28/21 14:00 58 L 07/28/21 12:00 36.9 C 55 L 16 151/107 H 10
--- NOTE | 2021-07-28 17:09 | P.PNNP_ITS ---
Progress Note: A&P Assessment and Plan (1) Chronic kidney disease, unspecified: Code(s): N18.9 - Chronic kidney disease, unspecified Status: Chronic Assessment and Plan: * unknown baseline creatinine but has known history of CKD - had been seeing nephrology in the past * appears quite advanced kidney disease (CKD stage V) based on evaluation to date: * small kidney size by renal ultrasound - doubt mild hydro contributing * urine electrolytes non-prerenal * urinalysis with blood and protein * creatinine on admission was 4.7mg/dl andslowly declined during this hospitalization up to 6.7mg/dl * suspected that her atrial fibrillation may precipitated her renal decline but not clear * findings by Echo (EF ~ 20 - 25% with 4 chamber dilation) would also suggest a possible component of cardiorenal syndrome playing a role as well * use of IV diuretics have not really improved volume status and have just led to a worsened creatinine * s/p tunneled HD catheter on 07/21/21 for initiation of dialysis * continue HD with fluid removal as tolerated * unclear if potential for renal recovery but seems apparent that she needs dialysis at this time (for clearance, fluid removal, and optimization of electrolytes) * HD tomorrow given her outpatient schedule has been finalized (Sun/Sun/Sun at [facility]) (2) Hypertension: Code(s): I10 - Essential (primary) hypertension Status: Chronic Assessment and Plan: * long standing issues and presumably due to hyperaldosteronism based on history * off spironolactone * reasonable control at this time * follow potassium (3) Atrial fibrillation with rapid ventricular response: Code(s): I48.91 - Unspecified atrial fibrillation Status: Acute Assessment and Plan: * s/p LAUREEN with cardioversion (07/22/21) but failed to maintain NSR * on amiodarone and heparin * Cardiology following * continue rate control strategy and anticoagulation * follow INR since on coumadin (4) CHF (congestive heart failure): Qualifiers: Heart failure chronicity: acute Heart failure type: unspecified Qualified Code(s): I50.9 - Heart failure, unspecified Code(s): I50.9 - Heart failure, unspecified Status: Acute Assessment and Plan: * doing better with ultrafiltration/dialytic intervention * continue this fluid removal as tolerated * follow respiratory/volume status * continue diuretics since still makes some urine (5) Pleural effusion on right: Code(s): J90 - Pleural effusion, not elsewhere classified Status: Acute Assessment and Plan: * s/p thoracentesis * hopefully fluid removal with dialysis will keep this issue in check (6) Elevated LFTs: Code(s): R79.89 - Other specified abnormal findings of blood chemistry Status: Acute Assessment and Plan: * hepatitis studies negative * suspect passive congestion (7) Anemia: Code(s): D64.9 - Anemia, unspecified Status: Acute Assessment and Plan: * related to CKD and acute illness * Epogen with HD * follow trend of H/H Will continue to follow. Subjective Date/time seen: 07/28/21 17:09 Appears to be doing reasonably well at the time of my visit; still with some on/off issue with faigue; amiodarone being tapered down and remains on coumadin; breathing/lower extremity edema continues to slowly improve; no other issues/events noted overnight or earlier his morning. Exam Narrative: General: W
[2021-07-28 17:42] LABS: SARS-CoV-2 RNA PCR Negative
--- NOTE | 2021-07-28 18:06 | PC.NURSE ---
This patient, Dory Lynn, was transferred to [facility] on 07/28/21 at 1806. Personal belongings sent with patient. Report given to RUPESH Gillette. Appropriate documentation sent with patient.
--- NOTE | 2021-07-28 18:25 | PC.NURSE ---
This patient, Dory Lynn, was received from [facility] on 07/28/21 at 1825. Patient/family oriented to unit policies and routines
[2021-07-29] VITALS (26 sets, daily range): BP systolic 112–165; BP diastolic 64–99; PULSE 57–84; RESP 14–20; TEMP 36–36.9; O2SAT 98–100
[2021-07-29 05:54] LABS: Basophils Absolute Auto 0.1 K/mm3 (0.0-0.1); Basophils Percent Auto 0.6 % (0.2-1.2); Eosinophils Absolute Auto 0.2 K/mm3 (0-0.3); Eosinophils Percent Auto 2.4 % (0-4.4); Hematocrit 32.3 % (37.0-47.0); Hemoglobin 10.1 g/dL (12.0-15.0); Immature Granulocyte Absolute 0.14 K/mm3 (0.00-0.031); Immature Granulocyte Percent A 1.4 % (0-0.5); Lymphocytes Absolute Auto 1.05 K/mm3 (0.9-3.2); Lymphocytes Percent Auto 10.5 % (18.3-44.2); Mean Corpuscular HGB Conc 31.3 g/dl (32-36); Mean Corpuscular Hemoglobin 25.7 pg (26-34); Mean Corpuscular Volume 82.2 fl (80-100); Monocytes Absolute Auto 0.8 K/mm3 (0.1-0.6); Neutrophils Absolute Auto 7.7 K/mm3 (1.3-6.7); Neutrophils Percent Auto 77.1 % (45.5-73.1); Nucleated Red Blood Cells Perc 0.3 % (0.0-0.2); Platelet Count Result 281 k/mm3 (150-375); Red Blood Count 3.93 M/mm3 (4.2-5.4); Red Cell Distribution Width 18.2 % (11.5-14.5)
[2021-07-29 06:03] LABS: INR 2.7
--- NOTE | 2021-07-29 11:03 | PM.PNCARD ---
Progress Note: A&P Assessment and Plan (1) Atrial fibrillation with rapid ventricular response: Code(s): I48.91 - Unspecified atrial fibrillation Status: Acute Assessment and Plan: Patient status post LAUREEN guided DC cardioversion with failure to restore sinus rhythm. She remains in sinus rhythm/sinus sylvia. IV amiodarone has been discontinued. -continue oral amiodarone. -her INR was supratherapeutic on 07/28/2021 at 5.2; current INR is 2.7. Resume warfarin, target INR 2-3. (2) CHF (congestive heart failure): Qualifiers: Heart failure chronicity: acute Heart failure type: unspecified Qualified Code(s): I50.9 - Heart failure, unspecified Code(s): I50.9 - Heart failure, unspecified Status: Acute Assessment and Plan: Newly diagnosed cardiomyopathy with an ejection fraction of 20-25%. Fluid management with hemodialysis GDMT for HRrEF including beta-tangela (switch metoprolol tartrate to metoprolol succinate), ARB. Unable to use SGLT 2 inhibitor due to severely impaired renal function at this time. Isosorbide dinitrate/hydralazine (BiDil) not on formulary, will consider initiating as an outpatient. Life vest addition Outpatient follow-up for further evaluation of cardiomyopathy; and continuation of guideline directed medical treatment. Discharge planning as per primary team. Outpatient follow-up in cardiology clinic in 2-3 weeks or sooner (3) Acute renal failure superimposed on chronic kidney disease: Qualifiers: Acute renal failure type: unspecified Chronic kidney disease stage: unspecified stage Qualified Code(s): N17.9 - Acute kidney failure, unspecified; N18.9 - Chronic kidney disease, unspecified Code(s): N17.9 - Acute kidney failure, unspecified; N18.9 - Chronic kidney disease, unspecified Status: Acute Assessment and Plan: Renal replacement therapy with hemodialysis. Management per Nephrology. Subjective Date/time seen: 07/29/21 11:03 Interval history: Cardiology follow-up for atrial fibrillation, CHF, new cardiomyopathy EF 20-25%, acute on chronic renal failure 07/20/20 patient states she feels okay sitting. Denies significant shortness of breath. Denies dizziness, palpitations. Edema persists but blames it on leaving her legs in a dependent position and not wearing compression stockings. No chest pain. Remains in AFib with RVR on telemetry. Complains of loose stools thinks it is the antibiotics she is receiving. 07/21/2020: Patient states she is feeling very good this morning. Denies shortness of breath or chest pain, does say conley feels like she is getting weak. Also states that she is urinating a lot. 07/25/2020: Patient says she feels fine and is asymptomatic this morning. Attempt at cardioverting her last Sunday restored sinus rhythm only briefly she has there in been on IV amiodarone and heparin since then all weekend. She remains moderately tachycardic but asymptomatic. She has been held NPO this morning for the possibility of another attempt at cardioversion today. Long discussion with the patient today about the strategy of rhythm versus rate control in the setting of newly diagnosed cardiomyopathy with 4 chamber dilation. 07/26/2021-patient had dialysis this morning. Her amiodarone was switched from IV to p.o. yesterday. Overnight, patient has remained in atrial fibrillation with RVR. At present, her heart rates are in 140s to 160s. At the time of evaluation, patient was eating breakfast. She denied any ongoing symptoms of chest pain, palpitations or shortness of breath. Lower extremity swelling has improved after dialysis. Date of service 07/27/2021: She feels okay today but is very tired. She says she is unable to sleep well in the hospital due to all the disturbances. Swelling is slightly better but she does still moderate lower extremity edema Date of service 07/28/2021: I feel fine. ? She does say she feels weak fr
[2021-07-29] MEDS: EPOETIN ALFA-EPBX 10,000 UNITS/ML VIAL 10000 UNITS IV PUSH (11:11)
--- NOTE | 2021-07-29 11:43 | PCPTNOTE ---
The patient treatment was not able to be completed due to patient out room for dialysis. Will plan to continue treatment per plan of care.
--- NOTE | 2021-07-29 11:47 | PM.IMPN ---
Progress Note: A&P Assessment and Plan (1) Acute renal failure superimposed on chronic kidney disease: Qualifiers: Acute renal failure type: unspecified Chronic kidney disease stage: unspecified stage Qualified Code(s): N17.9 - Acute kidney failure, unspecified; N18.9 - Chronic kidney disease, unspecified Code(s): N17.9 - Acute kidney failure, unspecified; N18.9 - Chronic kidney disease, unspecified Status: Acute Assessment and Plan: It is unclear if the patient present with acute kidney injury in the setting of advance kidney disease. Certainly kidney imaging reveals small kidneys, suggesting chronic kidney disease. Dialysis initiation per nephrology. Continue IV iron supplementation with Venofer. Save nondominant arm for future access. -patient was started on hemodialysis on 07/23/2021. She had a stable run without reported issues. -associated with anasarca currently patient shows persistent peripheral lower extremity edema despite aggressive diuresis. She is status post thoracentesis; pleural fluid was transudative; cultures remain unrevealing;. aviation project manager to confirm t for outpatient dialysis be finalized (2) Atrial fibrillation with rapid ventricular response: Code(s): I48.91 - Unspecified atrial fibrillation Status: Acute Assessment and Plan: -AFib with rapid ventricular response, remaining uncontrolled despite medication and 1 attempt at cardioversion. - 200 joules synched biphasic energy x1 was delivered with immediate caodaism of sinus rhythm on 07/22/2021. Twelve lead EKG was obtained postprocedure, however, pt had reverted to Afib with RVR once again after approximately 5-10 minutes. -rate control: Continue medical management. Metoprolol 50 mg q.12 hours. Continue on IV amiodarone ; per Cardiology, may consider repeating DC cardioversion after patient has been loaded with amiodarone. Continue anticoagulation with unfractionated heparin for now. Monitor aPTT closely. -anticoagulation: Heparin drip; plan to transition to NOAC at the time of discharge. -goal keep potassium greater than 4, magnesium greater than 2, daily monitoring of potassium -appreciate cardiology consult -status post cardioversion with failed ventricular response -echocardiogram revealed LEFT VENTRICLE: Moderate left ventricular enlargement with severe LV systolic dysfunction visually estimated ejection fraction approximately 20-25% with moderate concentric left ventricular hypertrophy. -On 07/28/2021 cardiology started amiodarone tapering/ amiodarone dose to 400 mg p.o. b.i.d. for 4 days, then decrease to 400 mg daily for 1 week, then 200 mg daily as a maintenance dose (3) CHF (congestive heart failure): Qualifiers: Heart failure chronicity: acute Heart failure type: unspecified Qualified Code(s): I50.9 - Heart failure, unspecified Code(s): I50.9 - Heart failure, unspecified Status: Acute Assessment and Plan: Associated with NSTEMI type 2 secondary to demand ischemia -continue diuresis and dialysis daily evaluation No improvement (4) Community acquired pneumonia: Code(s): J18.9 - Pneumonia, unspecified organism Status: Acute Assessment and Plan: Associated with sepsis -antibiotic: Status post Rocephin, azithromycin -afebrile, has leukocytosis -chest x-ray is read as possible superimposed pneumonia (5) Pleural effusion on right: Code(s): J90 - Pleural effusion, not elsewhere classified Status: Acute Assessment and Plan: Status post thoracentesis transudate (6) Hypertension: Code(s): I10 - Essential (primary) hypertension Status: Acute Assessment and Plan: Continue current treatment monitor (7) Supratherapeutic INR: Code(s): R79.1 - Abnormal coagulation profile Status: Acute Assessment and Plan: Status post vitamin K 1.25 mg p.o. x1 resolved Resume Coumadin at 2.5 mg daily repeat INR in a.m
--- NOTE | 2021-07-29 12:20 | P.PNNP_ITS ---
Progress Note: A&P Assessment and Plan (1) Chronic kidney disease, unspecified: Code(s): N18.9 - Chronic kidney disease, unspecified Status: Chronic Assessment and Plan: * unknown baseline creatinine but has known history of CKD - had been seeing nephrology in the past * appears quite advanced kidney disease (CKD stage V) based on evaluation to date: * small kidney size by renal ultrasound - doubt mild hydro contributing * urine electrolytes non-prerenal * urinalysis with blood and protein * creatinine on admission was 4.7mg/dl andslowly declined during this hospitalization up to 6.7mg/dl * suspected that her atrial fibrillation may precipitated her renal decline but not clear * findings by Echo (EF ~ 20 - 25% with 4 chamber dilation) would also suggest a possible component of cardiorenal syndrome playing a role as well * use of IV diuretics have not really improved volume status and have just led to a worsened creatinine * s/p tunneled HD catheter on 07/21/21 for initiation of dialysis * continue HD with fluid removal as tolerated * unclear if potential for renal recovery but seems apparent that she needs dialysis at this time (for clearance, fluid removal, and optimization of electrolytes) * HD today given her outpatient schedule has been finalized ([facility]Sun at [facility]) (2) Hypertension: Code(s): I10 - Essential (primary) hypertension Status: Chronic Assessment and Plan: * long standing issues and presumably due to hyperaldosteronism based on history * off spironolactone * reasonable control at this time * follow potassium (3) Atrial fibrillation with rapid ventricular response: Code(s): I48.91 - Unspecified atrial fibrillation Status: Acute Assessment and Plan: * s/p LAUREEN with cardioversion (07/22/21) but failed to maintain NSR * on amiodarone and heparin * Cardiology following * continue rate control strategy and anticoagulation * follow INR since on coumadin (4) CHF (congestive heart failure): Qualifiers: Heart failure chronicity: acute Heart failure type: unspecified Qualified Code(s): I50.9 - Heart failure, unspecified Code(s): I50.9 - Heart failure, unspecified Status: Acute Assessment and Plan: * doing better with ultrafiltration/dialytic intervention * continue this fluid removal as tolerated * follow respiratory/volume status * continue oral diuretics since still makes some urine (5) Pleural effusion on right: Code(s): J90 - Pleural effusion, not elsewhere classified Status: Acute Assessment and Plan: * s/p thoracentesis * hopefully fluid removal with dialysis will keep this issue in check (6) Elevated LFTs: Code(s): R79.89 - Other specified abnormal findings of blood chemistry Status: Acute Assessment and Plan: * hepatitis studies negative * suspect passive congestion (7) Anemia: Code(s): D64.9 - Anemia, unspecified Status: Acute Assessment and Plan: * related to CKD and acute illness * Epogen with HD * follow trend of H/H Will continue to follow - not opposed to discharge from renal perspective if otherwise medically stable. Subjective Date/time seen: 07/29/21 12:20 Tolerating dialysis treatment at the time of my visit (seen on HD at ~ 12:05PM); feels reasonably well at this time; anxious for discharge when able; breathing/lower extremity edema continues to slowly improve; no other acute issues to report; no events overnight
--- NOTE | 2021-07-29 12:20 | PM.PNNEP ---
Progress Note: A&P Assessment and Plan (1) Chronic kidney disease, unspecified: Code(s): N18.9 - Chronic kidney disease, unspecified Status: Chronic Assessment and Plan: unknown baseline creatinine but has known history of CKD - had been seeing nephrology in the past appears quite advanced kidney disease (CKD stage V) based on evaluation to date: small kidney size by renal ultrasound - doubt mild hydro contributing urine electrolytes non-prerenal urinalysis with blood and protein creatinine on admission was 4.7mg/dl andslowly declined during this hospitalization up to 6.7mg/dl suspected that her atrial fibrillation may precipitated her renal decline but not clear findings by Echo (EF ~ 20 - 25% with 4 chamber dilation) would also suggest a possible component of cardiorenal syndrome playing a role as well use of IV diuretics have not really improved volume status and have just led to a worsened creatinine s/p tunneled HD catheter on 07/21/21 for initiation of dialysis continue HD with fluid removal as tolerated unclear if potential for renal recovery but seems apparent that she needs dialysis at this time (for clearance, fluid removal, and optimization of electrolytes) HD today given her outpatient schedule has been finalized ([facility]Sun[facility]Sun at [facility]) (2) Hypertension: Code(s): I10 - Essential (primary) hypertension Status: Chronic Assessment and Plan: long standing issues and presumably due to hyperaldosteronism based on history off spironolactone reasonable control at this time follow potassium (3) Atrial fibrillation with rapid ventricular response: Code(s): I48.91 - Unspecified atrial fibrillation Status: Acute Assessment and Plan: s/p LAUREEN with cardioversion (07/22/21) but failed to maintain NSR on amiodarone and heparin Cardiology following continue rate control strategy and anticoagulation follow INR since on coumadin (4) CHF (congestive heart failure): Qualifiers: Heart failure chronicity: acute Heart failure type: unspecified Qualified Code(s): I50.9 - Heart failure, unspecified Code(s): I50.9 - Heart failure, unspecified Status: Acute Assessment and Plan: doing better with ultrafiltration/dialytic intervention continue this fluid removal as tolerated follow respiratory/volume status continue oral diuretics since still makes some urine (5) Pleural effusion on right: Code(s): J90 - Pleural effusion, not elsewhere classified Status: Acute Assessment and Plan: s/p thoracentesis hopefully fluid removal with dialysis will keep this issue in check (6) Elevated LFTs: Code(s): R79.89 - Other specified abnormal findings of blood chemistry Status: Acute Assessment and Plan: hepatitis studies negative suspect passive congestion (7) Anemia: Code(s): D64.9 - Anemia, unspecified Status: Acute Assessment and Plan: related to CKD and acute illness Epogen with HD follow trend of H/H Will continue to follow - not opposed to discharge from renal perspective if otherwise medically stable. Subjective Date/time seen: 07/29/21 12:20 Tolerating dialysis treatment at the time of my visit (seen on HD at ~ 12:05PM); feels reasonably well at this time; anxious for discharge when able; breathing/lower extremity edema continues to slowly improve; no other acute issues to report; no events overnight or earlier this AM. Exam Narrative: General: WD/WN AA female in NAD Heart: IRRR, normal S1 and S2; no rub Lungs: decreased breath sounds at the bases Abdomen: soft, nontender, nondistended, positive bowel sounds Extremities: no cyanosis or clubbing; 1+ edema Skin: warm and dry Objective Data Vital Signs Vital Signs: Vital Signs Temp Pulse Resp BP Pulse Ox 07/29/21 12:18 36.3 C L 63 18 141/83 H 07/29/21 12:15 61
[2021-07-29] MEDS: BUMETANIDE INJ 1 MG/4 ML VIAL 2 MG IV PUSH (12:35)
[2021-07-29] MEDS: LOSARTAN POTASSIUM 25 MG TABLET PO (12:35)
[2021-07-29 12:36] LABS: Glucose Point of Care 86 mg/dl (65-105)
[2021-07-29] MEDS: metOLazone 5 MG TABLET PO (12:36)
[2021-07-29] MEDS: FERROUS SULFATE 324 MG TABLET PO (12:36)
[2021-07-29] MEDS: AMIODARONE HCL 200 MG TABLET 400 MG PO ×2 (12:36→17:57)
[2021-07-29] MEDS: METOPROLOL TARTRATE 50 MG TAB 100 MG PO ×2 (12:37→17:58)
[2021-07-29] MEDS: WARFARIN (*PBKC) 2.5 MG TABLET PO (18:00)
[2021-07-30] VITALS (9 sets, daily range): BP systolic 111–132; BP diastolic 64–87; PULSE 62–122; RESP 18–20; TEMP 36.4–36.7; O2SAT 97–100
[2021-07-30 06:10] LABS: INR 2.6; Prothrombin Time 27.5 Seconds (11.1-14.7)
--- NOTE | 2021-07-30 08:31 | P.PNNP_ITS ---
Progress Note: A&P Assessment and Plan (1) Chronic kidney disease, unspecified: Code(s): N18.9 - Chronic kidney disease, unspecified Status: Chronic Assessment and Plan: * unknown baseline creatinine but has known history of CKD - had been seeing nephrology in the past * appears quite advanced kidney disease (CKD stage V) based on evaluation to date: * small kidney size by renal ultrasound - doubt mild hydro contributing * urine electrolytes non-prerenal * urinalysis with blood and protein * creatinine on admission was 4.7mg/dl andslowly declined during this hospitalization up to 6.7mg/dl * suspected that her atrial fibrillation may precipitated her renal decline but not clear * findings by Echo (EF ~ 20 - 25% with 4 chamber dilation) would also suggest a possible component of cardiorenal syndrome playing a role as well * use of IV diuretics have not really improved volume status and have just led to a worsened creatinine * now getting dialysis via tunneled HD catheter. * Next treatment on Sunday (2) Hypertension: Code(s): I10 - Essential (primary) hypertension Status: Chronic Assessment and Plan: * systolic in the 100-120 range. * On metoprolol and losartan. (3) Atrial fibrillation with rapid ventricular response: Code(s): I48.91 - Unspecified atrial fibrillation Status: Acute Assessment and Plan: * s/p LAUREEN with cardioversion (07/22/21) but failed to maintain NSR * on amiodarone and heparin * Cardiology following * continue rate control strategy and anticoagulation * follow INR since on coumadin (4) CHF (congestive heart failure): Qualifiers: Heart failure chronicity: acute Heart failure type: unspecified Qualified Code(s): I50.9 - Heart failure, unspecified Code(s): I50.9 - Heart failure, unspecified Status: Acute Assessment and Plan: * Improved with fluid removal with dialysis * continue diuretics why she is making urine (5) Pleural effusion on right: Code(s): J90 - Pleural effusion, not elsewhere classified Status: Acute Assessment and Plan: * s/p thoracentesis * hopefully fluid removal with dialysis will keep this issue in check (6) Elevated LFTs: Code(s): R79.89 - Other specified abnormal findings of blood chemistry Status: Acute Assessment and Plan: * hepatitis studies negative * suspect passive congestion (7) Anemia: Code(s): D64.9 - Anemia, unspecified Status: Acute Assessment and Plan: * related to CKD and acute illness * Epogen with HD * follow trend of H/H Will continue to follow - not opposed to discharge from renal perspective if otherwise medically stable. Subjective Date/time seen: 07/30/21 08:31 Interval history: the patient feels okay today. just finished breakfast. She had dialysis yesterday and it went well. Swelling is better She still is not making very much urine Exam Narrative: General: WD/WN AA female in NAD Heart: IRRR, normal S1 and S2; no rub or gallop Lungs: decreased breath sounds at the bases Abdomen: soft, nontender, nondistended, positive bowel sounds Extremities: no cyanosis or clubbing; 1+ edema Skin: no rash Objective Data Vital Signs Vital Signs: Vital Signs - 24 hr 07/29/21 09:05 07/29/21 09:14 07/29/21 10:00 Temperature 36.4 C Pulse Rate 67
--- NOTE | 2021-07-30 08:31 | PM.PNNEP ---
Progress Note: A&P Assessment and Plan (1) Chronic kidney disease, unspecified: Code(s): N18.9 - Chronic kidney disease, unspecified Status: Chronic Assessment and Plan: unknown baseline creatinine but has known history of CKD - had been seeing nephrology in the past appears quite advanced kidney disease (CKD stage V) based on evaluation to date: small kidney size by renal ultrasound - doubt mild hydro contributing urine electrolytes non-prerenal urinalysis with blood and protein creatinine on admission was 4.7mg/dl andslowly declined during this hospitalization up to 6.7mg/dl suspected that her atrial fibrillation may precipitated her renal decline but not clear findings by Echo (EF ~ 20 - 25% with 4 chamber dilation) would also suggest a possible component of cardiorenal syndrome playing a role as well use of IV diuretics have not really improved volume status and have just led to a worsened creatinine now getting dialysis via tunneled HD catheter. Next treatment on Sunday (2) Hypertension: Code(s): I10 - Essential (primary) hypertension Status: Chronic Assessment and Plan: systolic in the 100-120 range. On metoprolol and losartan. (3) Atrial fibrillation with rapid ventricular response: Code(s): I48.91 - Unspecified atrial fibrillation Status: Acute Assessment and Plan: s/p LAUREEN with cardioversion (07/22/21) but failed to maintain NSR on amiodarone and heparin Cardiology following continue rate control strategy and anticoagulation follow INR since on coumadin (4) CHF (congestive heart failure): Qualifiers: Heart failure chronicity: acute Heart failure type: unspecified Qualified Code(s): I50.9 - Heart failure, unspecified Code(s): I50.9 - Heart failure, unspecified Status: Acute Assessment and Plan: Improved with fluid removal with dialysis continue diuretics why she is making urine (5) Pleural effusion on right: Code(s): J90 - Pleural effusion, not elsewhere classified Status: Acute Assessment and Plan: s/p thoracentesis hopefully fluid removal with dialysis will keep this issue in check (6) Elevated LFTs: Code(s): R79.89 - Other specified abnormal findings of blood chemistry Status: Acute Assessment and Plan: hepatitis studies negative suspect passive congestion (7) Anemia: Code(s): D64.9 - Anemia, unspecified Status: Acute Assessment and Plan: related to CKD and acute illness Epogen with HD follow trend of H/H Will continue to follow - not opposed to discharge from renal perspective if otherwise medically stable. Subjective Date/time seen: 07/30/21 08:31 Interval history: the patient feels okay today. just finished breakfast. She had dialysis yesterday and it went well. Swelling is better She still is not making very much urine Exam Narrative: General: WD/WN AA female in NAD Heart: IRRR, normal S1 and S2; no rub or gallop Lungs: decreased breath sounds at the bases Abdomen: soft, nontender, nondistended, positive bowel sounds Extremities: no cyanosis or clubbing; 1+ edema Skin: no rash Objective Data Vital Signs Vital Signs: Vital Signs - 24 hr 07/29/21 09:05 07/29/21 09:14 07/29/21 10:00 Temperature 36.4 C Pulse Rate 67 62 63 Respiratory Rate 18 Blood Pressure 138/88 142/85 H 143/88 H Pulse Oximetry 07/29/21 10:30 07/29/21 10:45 07/29/21 11:00 Temperature Pulse Rate 60 62 61 Respiratory Rate Blood Pressure 139/84 144/88 H 144/84 H Pulse Oximetry 07/29/21 11:15 07/29/21 11:30 07/29/21 11:45 Temperature Pulse Rate 62 84 57 L Respiratory Rate Blood Pressure 150/88 H 165/80 H 153/90 H Pulse Oximetry 07/29/21 12:00 07/29/21 12:15 07/29/21 12:18 Temperature 36.3 C L Pulse Rate 59 L 61 63 Respiratory Rate 18 Blood Pressure 149/91
--- NOTE | 2021-07-30 08:36 | PM.DS ---
DS: Admitting Diagnosis Discharge Date 07/30/2021 Admitting Diagnosis Shortness of breath DS: Discharge Diagnosis Discharge Diagnosis (1) Acute renal failure superimposed on chronic kidney disease: Qualifiers: Acute renal failure type: unspecified Chronic kidney disease stage: unspecified stage Qualified Code(s): N17.9 - Acute kidney failure, unspecified; N18.9 - Chronic kidney disease, unspecified Code(s): N17.9 - Acute kidney failure, unspecified; N18.9 - Chronic kidney disease, unspecified Status: Acute Assessment and Plan: Most likely acute and of chronic renal failure Certainly kidney imaging reveals small kidneys, suggesting chronic kidney disease. Dialysis initiation per nephrology. Status post IV iron supplementation with Venofer. Save nondominant arm for future access. -patient was started on hemodialysis on 07/23/2021. She had a stable run without reported issues. -associated with anasarca currently patient shows persistent peripheral lower extremity edema despite aggressive diuresis. She is status post thoracentesis; pleural fluid was transudative; cultures remain unrevealing;. (2) Atrial fibrillation with rapid ventricular response: Code(s): I48.91 - Unspecified atrial fibrillation Status: Acute Assessment and Plan: -AFib with rapid ventricular response, remaining uncontrolled despite medication and 1 attempt at cardioversion. - 200 joules synched biphasic energy x1 was delivered with immediate lutheran of sinus rhythm on 07/22/2021. Twelve lead EKG was obtained postprocedure, however, pt had reverted to Afib with RVR once again after approximately 5-10 minutes. -rate control: Continue medical management. Metoprolol 50 mg q.12 hours. Continue on IV amiodarone ; per Cardiology, may consider repeating DC cardioversion after patient has been loaded with amiodarone. Continue anticoagulation with unfractionated heparin for now. Monitor aPTT closely. -anticoagulation: Heparin drip; plan to transition to NOAC at the time of discharge. -goal keep potassium greater than 4, magnesium greater than 2, daily monitoring of potassium -appreciate cardiology consult -status post cardioversion with failed ventricular response plan for further cardiac workup as outpatient -echocardiogram revealed LEFT VENTRICLE: Moderate left ventricular enlargement with severe LV systolic dysfunction visually estimated ejection fraction approximately 20-25% with moderate concentric left ventricular hypertrophy. -On 07/28/2021 cardiology started amiodarone tapering/ amiodarone dose to 400 mg p.o. b.i.d. for 4 days, then decrease to 400 mg daily for 1 week, then 200 mg daily as a maintenance dose -plan to DC on LifeVest (3) CHF (congestive heart failure): Qualifiers: Heart failure chronicity: acute Heart failure type: unspecified Qualified Code(s): I50.9 - Heart failure, unspecified Code(s): I50.9 - Heart failure, unspecified Status: Acute Assessment and Plan: Acute on top of chronic systolic CHF exacerbation Associated with NSTEMI type 2 secondary to demand ischemia -continue diuresis and dialysis daily evaluation No improvement (4) Community acquired pneumonia: Code(s): J18.9 - Pneumonia, unspecified organism Status: Acute Assessment and Plan: Associated with sepsis -antibiotic: Status post Rocephin, azithromycin resolved -afebrile, has leukocytosis -chest x-ray is read as possible superimposed pneumonia -for repeat chest x-ray in [address] scan of the chest in 4 weeks follow-up with PCP Chest x-ray on admission concern for mass versus infection (5) Pleural effusion on right: Code(s): J90 - Pleural effusion, not elsewhere classified Status: Acute Assessment and Plan: Status post thoracentesis transudate (6) Hypertension: Code(s): I10 - Essential (primary) hypertension Status: Chronic Assessment and Pl
[2021-07-30] MEDS: METOPROLOL TARTRATE 50 MG TAB 100 MG PO (08:46)
[2021-07-30] MEDS: FERROUS SULFATE 324 MG TABLET PO (08:47)
[2021-07-30] MEDS: AMIODARONE HCL 200 MG TABLET 400 MG PO (08:47)
[2021-07-30] MEDS: LOSARTAN POTASSIUM 25 MG TABLET PO (08:47)
[2021-07-30] MEDS: BUMETANIDE 1 MG TABLET 2 MG PO (08:48)
[2021-07-30 08:59] LABS: Alanine Aminotransferase 75 U/L (4-35); Albumin Level 2.9 g/dL (3.5-5.1); Alkaline Phosphatase 109 U/L (38-126); Anion Gap 9 mmol/L (8-16); Aspartate Amino Transferase 31 U/L (14-36); Bilirubin,Total 0.3 mg/dL (0.2-1.3); Blood Urea Nitrogen 36 mg/dL (7-17); Calcium 7.5 mg/dL (8.4-10.2); Carbon Dioxide 27 mmol/L (22-30); Chloride 97 mmol/L (98-107); Estimated CRCL calculation 13 ml/min; Estimated Glomerular Filt Rate 13; Glucose 85 mg/dL (65-110); Potassium 3.4 mmol/L (3.4-5.0); Sodium 133 mmol/L (137-145)
[2021-07-30 09:10] LABS: Basophils Absolute Auto 0.1 K/mm3 (0.0-0.1); Basophils Percent Auto 0.7 % (0.2-1.2); Eosinophils Absolute Auto 0.2 K/mm3 (0-0.3); Eosinophils Percent Auto 1.8 % (0-4.4); Hematocrit 31.7 % (37.0-47.0); Hemoglobin 9.8 g/dL (12.0-15.0); Immature Granulocyte Absolute 0.17 K/mm3 (0.00-0.031); Immature Granulocyte Percent A 1.6 % (0-0.5); Lymphocytes Absolute Auto 1.06 K/mm3 (0.9-3.2); Lymphocytes Percent Auto 9.9 % (18.3-44.2); Mean Corpuscular HGB Conc 30.9 g/dl (32-36); Mean Corpuscular Hemoglobin 26.5 pg (26-34); Mean Corpuscular Volume 85.7 fl (80-100); Mean Platelet Volume 10.1 fl (7.4-10.4); Monocytes Percent Auto 9.4 % (2.6-8.5); Neutrophils Absolute Auto 8.2 K/mm3 (1.3-6.7); Neutrophils Percent Auto 76.6 % (45.5-73.1); Nucleated Red Blood Cells Perc 0.2 % (0.0-0.2); Platelet Count Result 271 k/mm3 (150-375); Red Cell Distribution Width 19.1 % (11.5-14.5); White Blood Count 10.7 K/mm3 (4.5-10.0)
== END 2021-07-30 13:23 | disposition home or self-care (01) | DRG 720 ==
LOC: ANHED 14:02 → ANHIMU 17:34 → ANH2MED 07-28 18:19
PROVIDERS: Internal Medicine; Internal Medicine Cardiovascular Disease; Internal Medicine Nephrology; Specialist; Student in an Organized Health Care Education/Training Program; Surgery; Admitting Provider Internal Medicine; Emergency Provider Emergency Medicine; Visit Provider Internal Medicine
PROC: 02HV33Z Insertion of Infusion Device into Superior Vena Cava, Percutaneous Approach (ICD-10-PCS; CPT 36908; principal; 2021-07-21 13:00)
PROC: 5A2204Z Restoration of Cardiac Rhythm, Single (ICD-10-PCS; principal; 2021-07-22 13:00)
PROC: B24BZZ4 Ultrasonography of Heart with Aorta, Transesophageal (ICD-10-PCS; CPT 93312; 2021-07-22 13:00)
DX: A41.9 Sepsis, unspecified organism (principal); I21.A1 Myocardial infarction type 2; I13.2 Hypertensive heart and chronic kidney disease with heart failure and with stage 5 chronic kidney disease, or end stage renal disease; N18.5 Chronic kidney disease, stage 5; I50.23 Acute on chronic systolic (congestive) heart failure; N17.9 Acute kidney failure, unspecified; D63.1 Anemia in chronic kidney disease; J91.8 Pleural effusion in other conditions classified elsewhere; J18.9 Pneumonia, unspecified organism; Z20.822 Contact with and (suspected) exposure to COVID-19; I48.91 Unspecified atrial fibrillation; I42.0 Dilated cardiomyopathy; I08.1 Rheumatic disorders of both mitral and tricuspid valves; R79.89 Other specified abnormal findings of blood chemistry; R77.8 Other specified abnormalities of plasma proteins; R79.1 Abnormal coagulation profile; Z79.899 Other long term (current) drug therapy; Z87.891 Personal history of nicotine dependence
CPT/HCPCS: 32555; 36415; 71045; 71046; 76775; 77001; 80048; 80053; 80069; 80076; 81001; 82042; 82150; 82570; 82652; 82728; 82945; 82948; 83540; 83550; 83605; 83615; 83735; 83880; 83986; 84157; 84300; 84311; 84478; 84484; 85025; 85027; 85610; 85730; 86704; 86706; 86709; 86803; 86850; 86900; 86901; 87040; 87070; 87075; 87205; 87340; 87426; 88104; 88108; 88305; 89051; 92960; 93005; 93306; 93312; 93320; 93325; 96365; 96366; 96367; 96368; 96375; 97110; 97116; 97161; 97165; 97530; 97535; 99291; A9270; C1750; C9803; G0257; G0378; G0379; J0282; J0456; J0690; J0696; J1644; J1756; J2250; J2405; J2704; J3010; J3475; J7030; J7040; Q5105; U0003; U0005

== ENCOUNTER 2022-07-04 11:41 | Emergency (ER) | payer MEDICARE, MEDICAID, SELFPAY ==
--- NOTE | ~2022-07-04 | XR_ITS ---
EXAMINATION: XR elbow RT min 3V DATE: 07/04/2022 15:32 INDICATION: Right forearm pain post fall TECHNIQUE: Anteroposterior, two oblique and lateral views of the right elbow were obtained. COMPARISON: None. FINDINGS: Minimal impaction of an intra-articular fracture at the head of the proximal right radius. There is n o fracture gap and <1 mm incongruity along the articular cortex. The impacted fracture fragment invol ves less than 25% of the articular surface area. Alignment remains essentially anatomic. No other fra ctures identified. Slight widening of the lateral side of the radiocapitellar joint space. Right elbo w joint effusion with displacement of the anterior and posterior fat pads. Soft tissues are otherwise unremarkable. IMPRESSION: 1. Minimally impacted intra-articular fracture at the proximal right radial head with associated righ t elbow joint effusion. Reviewed, dictated and finalized at location L. PATROLMAN IMPRESSION: 1. Minimally impacted intra-articular fracture at the proximal right radial hea d with associated right elbow joint effusion.
--- NOTE | ~2022-07-04 | XR_ITS ---
EXAMINATION: XR forearm RT 2V DATE: 07/04/2022 14:58 INDICATION: Right forearm pain and contusion post fall TECHNIQUE: AP an lateral views of the right forearm were obtained. COMPARISON: none FINDINGS: Nondisplaced mildly impacted fracture at the neck of the proximal right radius which does not appear to involve the articular cortex. There is an associated right elbow joint effusion with displacement of both the anterior and posterior fat pads. Alignment remains essentially anatomic. No other fractur es identified. Joint spaces appear normal at the right elbow, wrist and visualized hand. IMPRESSION: 1. Mildly impacted fracture at the proximal neck of the right radius with associated right elbow join t effusion. Reviewed, dictated and finalized at location L. 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 Mildly impacted fracture at the proximal neck of the right radius with assoc iated right elbow joint effusion.
--- NOTE | ~2022-07-04 | XR_ITS ---
EXAMINATION: XR wrist RT min 3V DATE: 07/04/2022 15:32 INDICATION: Right forearm pain post fall TECHNIQUE: Posteroanterior, ulnar deviation, oblique, and lateral views of the right wrist were obtai renetta. COMPARISON: none FINDINGS: Alignment is normal. No fracture. Mild osteoarthritis at the first carpometacarpal and first interpha langeal joints. Soft tissues are unremarkable. IMPRESSION: 1. No acute osseous abnormality. Reviewed, dictated and finalized at location L. [employer]
[2022-07-04 12:00] VITALS: BP 157/90; PULSE 88; RESP 16; TEMP 36.4; O2SAT 99
--- NOTE | 2022-07-04 14:46 | ED.FALL ---
HPI - Fall General Chief Complaint: Fall Stated Complaint: fall/arm pain Time Seen by Provider: 07/04/22 14:44 History of Present Illness HPI Narrative: Patient is a 61-year-old female presenting after a fall. Patient states that yesterday she tripped on a metal cabinet falling on her right side. States that she initially felt fine but then she had right forearm pain that kept her up overnight. States that she took ibuprofen with moderate relief yesterday. States that the pain continued today so she came in for evaluation. She denies striking her head or losing consciousness. Denies neck or back pain. She denies further injury or complaints. Related Data Home Medications Medication Instructions Recorded Confirmed ferrous sulfate 325 mg (65 mg 325 mg PO DAILY 07/16/21 07/16/21 iron) tablet (FeroSul) Allergies Allergy/AdvReac Type Severity Reaction Status Date / Time PHILIP Inhibitors Allergy Swelling Verified 07/17/21 01:01 of Lip/Tongue/Throat azithromycin AdvReac Dyspnea / Verified 07/18/21 17:13 SOB Review of Systems Review of Systems: All systems reviewed & are unremarkable except as noted in HPI and below PMFSH Past Medical History Medical History Acute renal failure Afib Chronic kidney disease Chronic kidney disease, unspecified Hypertension Surgical History Surgical History History of History of tonsillectomy Family History Family History Father CAD (coronary artery disease) Mother Hypertension Social History Social History Social History: The patient lives at home with her daughter and mother. 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 She used to smoke half a pack of cigarettes per day but quit smoking in 2018. She has 20 pack per year smoking history. She used to drink 1-2 beers a day every day but quit doing so several years ago. She now drinks 1 beer on rare occasion. She denies any illicit substance use. Primary care provider: Brandie Rhoades [employer] Code status: Full code Surrogate decision maker: Daughter Smoking packs per day: 0.5 Smoking cigarettes per day: 10.0 Years smoked: 40 Smoking pack-years: 20.00 Smoking status: Former smoker Tobacco type: cigarettes Alcohol intake: current Drinks per week: 1 Substance use: never Spiritual care concerns: No Exam Narrative: GENERAL: Well-appearing, well-nourished, and in no acute distress. HEAD: Normocephalic, atraumatic. EYES: PERRLA and EOMI. ENT: Nares clear, no rhinorrhea or epistaxis. Mucous membranes moist. NECK: Supple. CHEST: Clear to auscultation. No respiratory distress. HEART: Regular rate and rhythm. No murmur heard. Normal peripheral pulses. ABDOMEN: Soft, nontender, nondistended, normal active bowel sounds. EXTREMITIES: Normal range of motion. Wrist and elbow ROM intact, radial pulses 2+ bilaterally, no sensory deficits, tenderness over lateral aspect of right elbow SKIN: Warm, dry, no rash. NEURO: No focal deficits. Alert and oriented x3. PSYCH: Normal mood and affect. Course Vital Signs Vital signs: Vital Signs Temperature 97.6 F 07/04/22 12:00 Pulse Rate 88 07/04/22 12:00 Respiratory Rate 16 07/04/22 12:00 Blood Pressure 157/90 H 07/04/22 12:00 Pulse Oximetry 99 07/04/22 12:00 Oxygen Delivery Room Air 07/04/22 12:00 Temperature 97.6 F 07/04/22 12:00 Pulse Rate 84 07/04/22 16:56 Respiratory Rate 98 H 07/04/22 16:56 Blood Pressure 150/89 H 07/04/22 16:56 Pulse Oximetry 99 07/04/22 12:00 Oxygen Delivery Room Air 07/04/22 12:00 MDM - Fall MDM Narrative Medical decision making narrative: Patient is a 61-year-old female presenting with right arm pain after a mechanical fall. Patient is
[2022-07-04] MEDS: ACETAMINOPHEN 500 MG TABLET 1000 MG PO (15:15)
--- NOTE | 2022-07-04 16:19 | PC.NURSE ---
right posterior splint in place. circulation checks adequate at this time. instructions given regarding checking for accurate circulation checks and when to seek medical attention. patient verbalized understanding
[2022-07-04 16:56] VITALS: BP 150/89; PULSE 84; RESP 98
== END 2022-07-04 17:02 | disposition home or self-care (01) ==
LOC: ANHED 16:50
PROVIDERS: Emergency Provider Emergency Medicine
DX: S52.131A Displaced fracture of neck of right radius, initial encounter for closed fracture (principal); I48.91 Unspecified atrial fibrillation; I12.9 Hypertensive chronic kidney disease with stage 1 through stage 4 chronic kidney disease, or unspecified chronic kidney disease; N18.9 Chronic kidney disease, unspecified; Z87.891 Personal history of nicotine dependence; Z79.01 Long term (current) use of anticoagulants; W18.09XA Striking against other object with subsequent fall, initial encounter
CPT/HCPCS: 29105; 73080; 73090; 73110; 99284; A4565; A9270

== ENCOUNTER 2024-07-05 11:04 | Emergency (ER) | payer MEDICARE, MEDICAID, SELFPAY ==
[2024-07-05 11:08] VITALS: BP 108/89; PULSE 68; RESP 14; TEMP 36.9; O2SAT 93
[2024-07-05 11:17] VITALS: BP 116/92; PULSE 79; RESP 15; TEMP 37.2; O2SAT 100
--- NOTE | 2024-07-05 11:22 | ED.FEMALEGU ---
HPI - Female Genitourinary General Chief complaint: Urogenital-Female Stated complaint: UTI symptoms Time Seen by Provider: 07/05/24 11:17 History of Present Illness HPI Narrative: 63-year-old female with history of end-stage renal disease on peritoneal dialysis daily. She presents today with urinary tract infection symptoms including frequency, burning with urination and some discomfort with urination. She states it feels very similar to her previous urinary tract infections. She has been on dialysis for several years and has not missed any sessions. She does peritoneal dialysis at home. No other symptoms such as fever, chills, abdominal pain, nausea vomiting. She has otherwise been in her normal state of health without any recent hospital visits, illnesses or any recent infections. Patient states that she still makes urine and goes about 3 times daily with normal urine production. Related Data Home Medications ?Medication ?Instructions ?Recorded ?Confirmed ?Last Taken ?Type ferrous sulfate 325 mg (65 mg 325 mg PO DAILY 07/16/21 07/13/22 Unknown History iron) tablet (FeroSul) Allergies Allergy/AdvReac Type Severity Reaction Status Date / Time PHILIP Inhibitors Allergy Severe Swelling Verified 07/05/24 12:01 of Lip/Tongue/Throat azithromycin Allergy Severe Dyspnea / Verified 07/05/24 12:01 SOB Review of Systems Review of Systems: As reviewed above in HPI [facility] Past Medical History Medical History Afib Chronic kidney disease, unspecified Chronic kidney disease Acute renal failure Hypertension Surgical History Surgical History History of tonsillectomy History of Family History Family History Father CAD (coronary artery disease) Mother Hypertension Social History Social History Social History: The patient lives at home with her daughter and mother. 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 She used to smoke half a pack of cigarettes per day but quit smoking in 2018. She has 20 pack per year smoking history. She used to drink 1-2 beers a day every day but quit doing so several years ago. She now drinks 1 beer on rare occasion. She denies any illicit substance use. Primary care provider: Brandie Rhoades SOCIAL SECURITY SPECIALIST Code status: Full code Surrogate decision maker: Daughter Smoking packs per day: 0.5 Smoking cigarettes per day: 10.0 Years smoked: 40 Smoking pack-years: 20.00 Smoking status: Former smoker Tobacco type: cigarettes Alcohol intake: current Drinks per week: 1 Substance use: never Spiritual care concerns: No Exam Narrative: GENERAL: [Well-appearing, well-nourished, and in no acute distress.] HEAD: [Normocephalic, atraumatic.] EYES: [PERRLA and EOMI.] ENT: Nares clear, no rhinorrhea or epistaxis. Mucous membranes moist. NECK: Supple. CHEST: [Clear to auscultation. No respiratory distress.] HEART: [Regular rate and rhythm]. No murmur heard. [Normal peripheral pulses.] ABDOMEN: [Soft, nondistended], no tenderness to the abdomen, no masses, [No rigidity or guarding], peritoneal dialysis catheter in place without any overlying skin changes, no tenderness in the abdomen, overall clean, dry and intact catheter and insertion site. EXTREMITIES: Normal range of motion. [No edema.] SKIN: Warm, dry, no rash. NEURO: [No focal deficits]. Alert and oriented [x3.] PSYCH: [Normal mood and affect.] Course Vital Signs Vital signs: Vital Signs Temperature 36.9 C 07/05/24 11:08 Pulse Rate 68 07/05/24 11:08 Respiratory Rate 14 07/05/24 11:08 Blood Pressure 108/89 07/05/24 11:08 Pulse Oximetry 93 07/05/24 11:08 Oxygen Delivery Room Air 07/05/24 11:08 Temperature 37.2 C 07/05/24 11:17 Pulse Rate 79 07/05/24 11:17 Respiratory Rate 15 07/05/24 11:17 Blood Pressure 116/92 H 07/05/24 11:17 Pulse Oximetry 100 07/05/24 11:17 Oxygen Delivery Room Air 07/05/24 11:08 MDM - Female Genitourinary MDM Narrative Medical decision making narrative: 63-year-old female with history of end-stage renal disease on peritoneal dialysis daily. She presents with UTI symptoms. Symptoms have been going on for last several days and feels very similar to her previous UTI that she has had several years ago. She still makes normal amounts urine goes 3 times daily. She has not missed any dialysis sessions and otherwise has been in her normal state of health. She has no other complaints such as chest pain, shortness a breath, abdominal pain, nausea vomiting. She has a soft nontender nondistended abdomen, peritoneal dialysis catheter in place without any overlying skin changes or infection. Her signs and symptoms do sound very consistent with urinary infection. She is allergic to azithromycin. Will obtain urinalysis and send for urine culture. No indications for any laboratory assessment at this time and states he has no other symptoms and otherwise has been compliant with her dialysis sessions and well-appearing without any concerns otherwise. Urinalysis does have bacteria, leukocyte esterase and appears to have urinary tract infection. Will send for urine culture and treat her with Bactrim at this time. Will send her over the course for Bactrim for next week. Discussed this with the patient and they felt comfortable with discharge at this time. Medical Records Attestation: I reviewed the patient's medical records. Lab Data Attestation: I reviewed the patient's lab results. Labs: Lab Results 07/05/24 Range/Units 11:35 Urine Color Yellow (Yellow) Urine Appearance Turbid H (Clear) Urine pH 6.5 (5.0-9.0) Ur Specific [place] 1.015 (1.001-1.035) Urine Protein 3+ H (Negative) mg/dL Urine Glucose (UA) Negative (Negative) mg/dL Urine Ketones Negative (Negative) mg/dL Ur Blood (Man) 2+ H (Negative) Urine Nitrate Negative (Negative) Urine Bilirubin Negative (Negative) Urine Urobilinogen 0.2 (<2.0) mg/dL Add Ur Microanalysis Reviewed Leukocyte Esterase Rfl 3+ H (Negative) LANI/UL Urine RBC 51-100 H (0-2) /hpf Urine WBC >100 H (0-3) /hpf Ur Squamous Epith Cells Many H (Few) /hpf Urine Bacteria 4+ H /hpf Urine Casts 0-2 Discharge Plan Discharge Clinical Impression: Urinary tract infection, Dialysis patient Patient Disposition: Home, Self-Care Condition: Stable Instructions: Antibiotic Form, Urinary Tract Infection in Women (ED), Dysuria (ED) Additional Instructions: Your urine does have a urinary infection. We will send you home with antibiotics for next week. Complete the full course and continue hydrate well. Return with any new or worsening concerns at any time. Patient Language: Niuean Prescriptions: New sulfamethoxazole-trimethoprim [Bactrim DS] 800-160 mg tablet 1 tablet PO Q12H Qty: 14 0RF No Action ferrous sulfate [FeroSul] 325 mg (65 mg iron) tablet 325 mg PO DAILY losartan 25 mg Tablet 25 mg PO DAILY Qty: 30 0RF metoprolol tartrate 50 mg Tablet 100 mg PO BID Qty: 60 0RF bumetanide 1 mg Tablet 2 mg PO DAILY Qty: 30 0RF warfarin 2.5 mg tablet 2.5 mg PO DAILY Qty: 30 0RF amiodarone 200 mg tablet 200 mg PO .other Qty: 60 0RF Rx Instructions: Take 2 tablets by mouth twice a day for 2 days then take 2 tablets by mouth once a day for 1 week been take 1 tablet by mouth daily Nephro-Silvia 0.8 mg tablet 1 tablet PO DAILY Qty: 90 3RF Follow-up/Referrals: Timothy Charles MD [Physician] - Time of Disposition: 12:05
[2024-07-05 11:55] LABS: Add Urine Microscopic? YES; Appearance Urine Turbid (Clear); Bacteria Urine 4+ /hpf; Bilirubin Urine Negative (Negative); Blood Urine 2+ (Negative); Color Urine Yellow (Yellow); Glucose Urine UA Negative (Negative); Ketones Urine Negative (Negative); Leukocyte Esterase Ur 3+ LEU/UL (Negative); Need Manual Microscopic Reviewed; Nitrate Urine Negative (Negative); Non Pathogenic Casts 0-2; Protein Urine 3+ mg/dL (Negative); RBC Urine 51-100 /hpf (0-2); Specific Grav Ur 1.015 (1.001-1.035); Squamous Epithelial Cell Urine Many /hpf (Few); Urobilinogen Urine 0.2 mg/dL (<2.0); WBC Urine >100 /hpf (0-3); pH Urine 6.5 (5.0-9.0)
[2024-07-05 12:03] VITALS: BP 101/72; PULSE 77; RESP 16; O2SAT 100
[2024-07-05] MEDS: SULFAMETHOXAZOLE/TRIMETHOPRIM 800/160 MG DS TABLET 1 TAB PO (12:05)
--- OUTSIDE RECORDS SUMMARY | 2024-07-12 15:08 | XMS_ITS | Encounter Summary ---
Author Organization [facility] Healthcare Address [address] [place] [address] Care Team Providers Care Dietary Aide Cook Name Role Phone Rhoades, Brandie Quan NP Primary Care Provider [phone] Mookie Dubois MD Unavailable [phone] Abigail Dougherty RN Unavailable [phone] Jama Hoskins MD Unavailable [phone] Reason for Referral * MRI/CAT/PET Scan (Routine) - Authorized Specialty Diagnoses / Procedures Referred By Contac t Referred To Contact Radiology Diagnoses ESRD (end stage renal disease) (CMS/HCC) (HCC) Procedures PET/CT Myocardial Perfusion Imaging (Multiple) Minda Rodriguez MD [address] [place] [address] Phone: tel: fax: [address] [phone] Referral ID Status Reason Start Date Expiration Date V isits Requested Visits Authorized [id number] Authorized 02/26/2024 03/27/2025 2 2 Encounter Details Date Type Department Care Team (Late st Contact Info) Description 02/26/2024 Orders Only [facility] and [facility] Transplant Kidney [address] [facility] [phone] [place] [address] Abigail Dougherty, RN [address] [facility] [address] [place] [address] ESRD (end stage renal disease) ([facility]) ([facility]) (Primary Dx) Social History Tobacco Use Types Packs/Day Years Used Date Smoking Tobacco: Former Smokeless Tobacco: Never AUDIT-C Answer Date Recorded Q1: How often do you have a drink containing alc ohol? Monthly or less 03/23/2022 Q2: How many drinks containi ng alcohol do you have on a typical day when you are drinking? 1 or 2 03/23/2022 Q3: How often do you have si x or more drinks on one occasion? 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 Gender Identity Not on file Sexual Orientation Not on file documented as of this encounter Plan of Treatment Scheduled Orders Name Type Priority Associated Diagnoses Orde r Schedule PET/CT Myocardial Perfusion Imaging (Multiple) Imaging Schedule Routine, Read Routine (OP Routine) ESRD (end stage renal disease) (CMS/HCC) ([facility]) Expected: 02/26/2024, Expires: 02/25/2025 documented as of this encounter Visit Diagnoses Diagnosis ESRD (end stage renal disease) ([facility]) ([facility])- Primary End stage renal disease documented in this encounter Care Teams Dietary Aide Cook Relationship Specialty Start Date End Date Brandie Rhoades NP [address] [place] [address] PCP - General Nurse Practitioner 08/09/21 Mookie Dubois MD [address] [place] [address] Referring Physician Nephrology 02/20/22 Abigail Dougherty RN [address] [facility] [address] [place] [address] Scrap Stripper Hand 02/13/24 Jama Hoskins MD [address] [facility] [address] [id number] Consulting Physician Cardiology 02/20/24 documented as of this encounter
--- OUTSIDE RECORDS SUMMARY | 2024-07-12 15:08 | XMS_ITS | Clinical Summary ---
Author Organization [facility] [employer] Address [address] [place] [address] Care Team Providers Care Title Clerk Automobile Name Role Phone Unavailable Primary Care Provider Unavailabl e Source Comments [facility] [employer],non-owned Affiliates and Associated Physician Practices is amultiple site organization consisting of ambulatory clinics and hospital sitesin [place], [place], [place] and [place]. This disclosure is being madepursuant to the Care Everywhere program and may not contain all information available regarding this patient. Last updated 18.[facility] [employer] Allergies Active Allergy Reactions Criticality Noted Date Comments unknown-antibiotic? [Other] Other Medications * Be aware that medications may not be up to date on this document. Alwaysverify current medications with the patient. Medication Sig Dispensed Refills Start Date End Date Status warfarin (Coumadin) 2.5 MG tablet Take 1 (one) tablet by mouth Sunday, , Active warfarin (Coumadin) 3.75 MG TABS Take by mouth every evening Every Sunday, Sun, Sunday and Sunday Active Social History Tobacco Use Types Packs/Day Years Used Date Smoking Tobacco: Never Assessed Sex and Gender Information Value Date Recorded Sex Assigned at Not on file Gender Identity Not on file Sexual Orientation Not on file Plan of Treatment Health Maintenance Due Date Last Done Comments COLOGUARD (AGES 45-75) - COL ON CA SCREENING 1961 COLON MONITORING 1961 COLONOSCOPY - COLON CA SCREENING 1961 CT COLONOGRAPHY - COLON CA SCREENING 1961 Colorectal Cancer Screening 1961 FIT - COLON CA SCREENING 1961 FLEX SIG - COLON CA SCREENING 1961 LIPID TESTING 1961 MAMMOGRAM 1961 MEDICARE AWV ? 12 MONTHS 1961 PAP SMEAR 1961 HIV SCREENING 1976 HEPATITIS C SCREENING 12/21/1979 DTAP/TDAP/TD VACCINES (1 - Tdap) 1980 ZOSTER VACCINE (1 of 2) 12/26/2011 DEPRESSION SCREENING 07/16/2023 COVID-19 VACCINE (1 - 2023-2 5 season) 2024 INFLUENZA VACCINE (#1) 2024 Respiratory Syncytial Virus (RSV) Vaccine Pt: or over 60 yrs (1 - 1-dose 75+ series) 2036 HEPATITIS B VACCINE Aged Out No longe r eligible based on patient's age to complete this topic HIB VACCINE Aged Out No longer eligi ble based on patient's age to complete this topic HPV VACCINE Aged Out No longer eligi ble based on patient's age to complete this topic MENINGOCOCCAL VACCINE Aged Out No radha romeo eligible based on patient's age to complete this topic PNEUMOCOCCAL VACCINE Aged Out No long er eligible based on patient's age to complete this topic
--- OUTSIDE RECORDS SUMMARY | 2024-07-12 15:08 | XMS_ITS | Encounter Summary ---
Author Organization [facility] Healthcare Address [address] [place] [address] Care Team Providers Care Street Worker Name Role Phone [place], Brandie Quan NP Primary Care Provider [phone] Mookie Dubois MD Unavailable [phone] Abigail Dougherty RN Unavailable [phone] Jama Hoskins MD Unavailable [phone] Encounter Details Date Type Department Care Team (Latest Contact Info) Description 06/05/2024 Anticoagulation Visit [facility] Cardiology [address] [place] [address] Bull Jaramillo RN Permanent atrial fibrillation (CMS/HCC) (HCC) (Primary Dx) Social History Tobacco Use Types [...] on file 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 [employer] Gender Identity Not on file Sexual Orientation Not on file documented as of this encounter Ordered Prescriptions Prescription Sig Dispense Quantity Refills Last Filled Start Date End Date warfarin (COUMADIN) 2.5 mg tablet Take 1 tablet (2.5 mg total) by mouth daily 30 tablet 1 06/05/2024 08/04/2024 documented in this encounter Plan of Treatment Not on file documented as of this encounter Visit Diagnoses Diagnosis Permanent atrial fibrillation (CMS/HCC) (HCC)- Primary Atrial fibrillation documented in this encounter Care Teams Street Worker Relationship Specialty Start Date End Date [place], Brandie Quan NP [address] [place] [address] PCP - General Nurse Practitioner 08/09/21 Mookie Dubois MD [address] [place] [place], [place] [id number] Referring Physician Nephrology 02/20/22 Abigail Dougherty, RN [address] [address] Product Craftsman 02/13/24 Jama Hoskins MD [address] [facility] [address] [place] [address] Consulting Physician Cardiology 02/20/24 documented as of this encounter
--- OUTSIDE RECORDS SUMMARY | 2024-07-12 15:08 | XMS_ITS | Encounter Summary ---
Author Organization [facility] Healthcare Address [address] [place] [address] Care Team Providers Care Metal Extrusion Supervisor Name Role Phone [place], Brandie Quan NP Primary Care Provider [phone] Mookie Dubois MD Unavailable [phone] Abigail Dougherty RN Unavailable [phone] Jama Hoskins MD Unavailable [phone] Encounter Details Date Type Department Care Team (Late st Contact Info) Description 05/01/2024 Telephone [facility] and [facility] Transplant Kidney [address] [facility] [address] [phone] [place] [address] Annalise Mays Social History Tobacco Use Types Packs/Day Years [...] on file 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 Will be available after Noon Needs return call from nurse coordinator. documented in this encounter Plan of Treatment Not on file documented as of this encounter Visit Diagnoses Not on filedocumented in this encounter Care Teams Metal Extrusion Supervisor Relationship Specialty Start Date End Date [place], Brandie Quan NP [address] [place] [address] PCP - General Nurse Practitioner 08/09/21 Mookie Dubois MD [address] [place] [address] Referring Physician Nephrology 02/20/22 Abigail Dougherty, RN [address] [facility] [address] [place] [id number] Plastics Process Hand 02/13/24 Jama Hoskins MD [address] [facility] [address] [place], [place] [id number] Consulting Physician Cardiology 02/20/24 documented as of this encounter
--- OUTSIDE RECORDS SUMMARY | 2024-07-12 15:08 | XMS_ITS | Encounter Summary ---
Author Organization [facility] Address [address] [address] Care Team Providers Care Quartz Miner Name Role Phone Unavailable Primary Care Provider Unavailabl e Reason for Referral * Radiology Services (Routine) - Closed Specialty Diagnoses / Procedures Referred By Christiano dior Referred To Contact Diagnoses End stage renal disease (HCC) Procedures IR CENTRAL LINE REMOVAL Mookie Dubois MD [address] [place] [address] Referral ID Status Reason Start Date Expiration Date Visits Re quested Visits Authorized [id number] Closed 05/24/2022 05/24/2023 1 1 DENTIAL SPECIALIST Reason for Visit * Radiology Services (Routine) - Closed Specialty Diagnoses / Procedures Referred By Christiano dior Referred To Contact Diagnoses End stage renal disease (HCC) Procedures IR CENTRAL LINE REMOVAL Mookie Dubois MD [address] [place] [id number] Referral ID Status Reason Start Date Expiration Date Visits Re quested Visits Authorized [id number] Closed 05/24/2022 05/24/2023 1 1 Encounter Details Date Type Department Care Team (Late st Contact Info) Description 05/29/2022 11:00 AM RESIDENTIAL SPECIALIST - 05/29/2022 11:59 PM RESIDENTIAL SPECIALIST Hospital Encounter [facility] Health Vascular Services [address] [place] [address], [address] [phone] Bladimir Waite MD Nephrology & Hypertension Spe [address] [place] [id number] Discharge Disposition: Home or Self Care Social History Tobacco Use Types Packs/Day Years Used Date Smoking Tobacco: Never Assessed Sex and Gender Information Value Date Recorded Sex Assigned at Not on file Gender Identity Not on file Sexual Orientation Not on file COVID-19 Exposure Response Date Recorded In the last 10 days, have yo u been in contact with someone who was confirmed or suspected to have Coronavirus/COVID-19? No / Unsure 05/23/2022 2:50 PM RESIDENTIAL SPECIALIST documented as of this encounter Discharge Summaries * Bladimir Waite MD - 05/29/2022 12:39 PM CST DISCHARGE SUMMARY Surgeon: Bladimir Waite MD Procedure Performed: 1. CATHETER PLACEMENT: REMOVAL OF TUNNELED CENTRALLY INSERTED CVC; 29701 Procedure note has been dictated in epic. See procedure note for details. Pre-procedure diagnosis: End-stage renal disease on dialysis Postprocedure diagnosis: Same. Findings: 1. A 32 cm tip to hub dura flow catheter was recovered in its entirety and intact from the right internal jugular vein. Anesthesia: Local Status: Stable Complications: None Estimated blood loss: negligible Pre-discharge focused physical exam: There is no bleeding from the exit site. There is no hematoma over the neck. The patient is alert awake and oriented x3. Tolerating p.o.. Additional notes:The patient tolerated the procedure well without incident or complication and was returned to holding area in satisfactory condition. Once the patient was alert awake and oriented x3he was allowed p.o. Intake. Bladimir Waite MD 05/29/2022 12:39 PM [facility] VAC [phone] - [phone] DENTIAL SPECIALIST documented in this encounter Discharge Instructions * Discharge Instructions* Marjorie Bowden RN - 05/29/2022 11:30 AM RESIDENTIAL SPECIALIST Advance diet as tolerated. Activity: Take it easy for the rest of the day and resume normal activities tomorrow. Do NOT lay flat for next 6 hours. Remove bandage tonight. Keep open to air. Clean with soap and water. May shower tonight. Do NOT bathe for [address] Waite or Dr. Beck at [phone] for: -moderate bleeding from procedure site -increased pain or drainage at procedure site -severe nausea and vomiting DENTIAL SPECIALIST documented in this encounter Medications at Time of Discharge Medication Sig Dispensed Refills Start Date End Date warfarin (Coumadin) 2.5 MG tablet Take 1 (one) tablet by mouth Sunday, , warfarin (Coumadin) 3.75 MG TABS Take by mouth every evening Every Sunday, Sun, Sunday and Sunday documented as of this encounter H&P Notes * Bladimir Waite MD - 05/29/2022 12:33 PM CST INVASIVE PROCEDURE H&P / SEDATION PLAN OF CARE Chief Complaint / History of Present Illness: The patient is 61-year-old woman with end-stage renal disease who is currently dialyzing through a peritoneal dialysis catheter and has been referred for the removal of her right internal jugular vein hemodialysis catheter. The catheter is a 32 cm tip to dura flow catheter by [employer] EXAM: There were no vitals taken for this visit. General appearance: alert, cooperative, no distress Neck: Venotomy is high in the neck, the exit site is below the clavicle and the cuff is buried approximately 3 from the exit site positioned above the clavicle. Heart: Regular rate, normal S1 and S2, without murmurs Lungs: breath sounds normal and symmetric; no wheezes Extremities: no cyanosis or edema. Indications for the procedure: End-stage renal disease on dialysis Procedure Planned: 1.CATHETER PLACEMENT: REMOVAL OF TUNNELED CENTRALLY INSERTED CVC; 26283 Past Medical History Illnesses: No past medical history on file. Sedation: None 1% plain lidocaine Expected Level: None Indication: Sedation is required to allow for performance of procedure. Consent: Risks, benefits and alternatives were discussed with patient and consent for procedure wasobtained. PO Intake: Regular Meal > 8 hours ASA Class: Class 3 - Severe Systemic Disease, Definite Functional Limitations Airway: Patent Monitoring: constant attendance by RN until patient recovered, constant attendance by MD until patient stable and intubation and emergency airway equipment available. DENTIAL SPECIALIST documented in this encounter Procedure Notes * Bladimir Waite MD - 05/29/2022 12:35 PM CSTAssociated Order(s): IR CENTRAL LINE REMOVAL Dory Lynn 1960 [id number] Interventional Nephrology Procedure Date: 05/29/2022 Attending Surgeon and performing the procedure: Bladimir Waite MD Brief history and physical and medical indication for the procedure: The The patient is 61-year-old woman with end-stage renal disease who is currently dialyzing through a peritoneal dialysis catheter and has been referred for the removal of her right internal jugular vein hemodialysis catheter. The catheter is a 32 cm tip to dura flow catheter by [employer] ?? EXAM: ?? There were no vitals taken for this visit. General appearance: alert, cooperative, no distress Neck: Venotomy is high in the neck, the exit site is below the clavicle and the cuff is buried approximately 3 from the exit site positioned above the clavicle. Heart: Regular rate, normal S1 and S2, without murmurs Lungs: breath sounds normal and symmetric; no wheezes Extremities: no cyanosis or edema. ?? Indications for the procedure: ?? End-stage renal disease on dialysis Procedures Performed: 1. CATHETER PLACEMENT: REMOVAL OF TUNNELED CENTRALLY INSERTED CVC; 68674 Findings: 1. A 32 cm tip to hub dura flow catheter was recovered in its entirety and intact from the right internal jugular vein. Description of the procedure: After informed consent was obtained the patient was placed in the supine position. Prior to beginning the procedure, universal protocol and time-out were performed to confirm the patient's identity and the planned procedure. Maximum sterile barriers including cap, mask, hand hygiene, sterile gloves, sterile gown, large sterile drape, sterile gel, sterile ultrasound probe cover, and 2% chlorhexidine for cutaneous antisepsis were used.The chest, neck, and catheter were prepared with chlorhexadineand draped in appropriate sterile fashion. The cuff was located by palpation. The exit site and tunnel tract up to the cuff were infiltrated with 1% lidocaine. Blunt dissection was used to release the cuff from the fibrous sheath and the catheter was removed. Pressure was applied for 15 minutes over the right internal jugular vein venotomy and hemostasis obtained. Mrs. Dory Lynn tolerated the procedure well with 1% lidacaine for local anesthesia. RECOMMENDATIONS: 1. Remove dressing after 6 hours. 2. Rest with venotomy above the heart over the next 6 hours. 3. May clean the exit site with soap water as needed. At all other times keep the exit site dry an open to air. Thank you for allowing me the privilege to participate in the care of this patient. Sincerely, Bladimir Waite MD 05/29/2022 12:35 PM [facility] VAC [phone] Mookie Dubois MD [facility] dialysis. DENTIAL SPECIALIST documented in this encounter Plan of Treatment Not on file documented as of this encounter Procedures Procedure Name Priority Date/Time Associated Diagnosis Comments IR CENTRAL LINE REMOVAL Routine 05/29/2022 7:44 AM RESIDENTIAL SPECIALIST End stage renal disease (HCC) documented in this encounter Results * IR CENTRAL LINE REMOVAL (05/29/2022 7:44 AM RESIDENTIAL SPECIALIST) Anatomical Region Laterality Modality X-Ray Angiograph y Narrative 05/29/2022 12:35 PM RESIDENTIAL SPECIALIST Bladimir Waite MD ? 05/29/2022 12:38 PM Dory Lynn 1960 [id number] Interventional Nephrology Procedure Date: ??05/29/2022 Attending Surgeon and performing the procedure: ??Bladimir Waite MD Brief history and physical and medical indication for the procedure: The The patient is 61-year-old woman with end-stage renal disease who is currently dialyzing through a peritoneal dialysis catheter and has been referred for the removal of her right internal jugular vein hemodialysis catheter. ??The catheter is a 32 cm tip to dura flow catheter by Bonnie bates. ?? EXAM: ?? There were no vitals taken for this visit. General appearance: alert, cooperative, no distress Neck: ??Venotomy is high in the neck, the exit site is below the clavicle and the cuff is buried approximately 3 from the exit site positioned above the clavicle. Heart: Regular rate, normal S1 and S2, without murmurs Lungs: breath sounds normal and symmetric; no wheezes Extremities: no cyanosis or edema. ?? Indications for the procedure: ?? End-stage renal disease on dialysis Procedures Performed: 1. ??CATHETER PLACEMENT: REMOVAL OF TUNNELED CENTRALLY INSERTED CVC; 11611 Findings: 1. ??A 32 cm tip to hub dura flow catheter was recovered in its entirety and intact from the right internal jugular vein. Description of the procedure: After informed consent was obtained the patient was placed in the supine position. Prior to beginning the procedure, universal protocol and time-out were performed to confirm the patient's identity and the planned procedure. ??Maximum sterile barriers including cap, mask, hand hygiene, sterile gloves, sterile gown, large sterile drape, sterile gel, sterile ultrasound probe cover, and 2% chlorhexidine for cutaneous antisepsis were used.The chest, neck, and catheter were prepared with chlorhexadine and draped in appropriate sterile fashion. The cuff was located by palpation. The exit site and tunnel tract up to the cuff were infiltrated with 1% lidocaine. Blunt dissection was used to release the cuff from the fibrous sheath and the catheter was removed. Pressure was applied for 15 minutes over the right internal jugular vein venotomy and hemostasis obtained. ??Dory Lynn tolerated the procedure well with 1% lidacaine for local anesthesia. RECOMMENDATIONS: 1. Remove dressing after 6 hours. ?? 2. Rest with venotomy above the heart over the next 6 hours. ?? 3. May clean the exit site with soap water as needed. ??At all other times keep the exit site dry an open to air. Thank you for allowing me the privilege to participate in the care of this patient. Sincerely, Bladimir Waite MD 05/29/2022 12:35 PM [facility] VAC [phone] - [phone] Mookie Dubois MD [place] [facility] dialysis. Mookie Dubois MD IR ORDERABLES documented in this encounter Visit Diagnoses Diagnosis End stage renal disease (HCC) End stage renal disease documented in this encounter Administered Medications Inactive Administered Medications - up to 3 most recent administrations Medication Order MAR Action Action Date Dose Rate Site lidocaine PF (Xylocaine MPF) 1 % injection Infiltration, INTRA-PROCEDURE MULTIPLE, Starting on Sun05/29/22 at 1252, Until Sun05/30/22 at 0124, Intra-procedure (IR) $ Admin. by Other Provider 05/29/2022 12:35 PM RESIDENTIAL SPECIALIST 100 mg documented in this encounter
--- OUTSIDE RECORDS SUMMARY | 2024-07-12 15:08 | XMS_ITS | Encounter Summary ---
Author Organization [facility] Address [facility] [facility] [place] [address] Care Team Providers Care Help Aid Name Role Phone Unavailable Primary Care Provider Unavailabl e Encounter Details Date Type Department Care Team (Latest Contact Info) Description 05/23/2022 Travel Social History Tobacco Use Types Packs/Day Years [...] Coronavirus/COVID-19? No / Unsure 05/23/2022 2:50 PM GALLEY BOY documented as of this encounter Plan of Treatment Not on file documented as of this encounter Visit Diagnoses Not on filedocumented in this encounter
--- OUTSIDE RECORDS SUMMARY | 2024-07-12 15:08 | XMS_ITS | Clinical Summary ---
Author Organization [facility] [place] [address] Address [address] [place] [address] Care Team Providers Care Stamp Pad Finisher Name Role Phone [place], Brandie Quan NP Primary Care Provider [phone] Mookie Dubois MD Unavailable [phone] Abigail Dougherty RN Unavailable [phone] Jama Hoskins MD Unavailable [phone] Allergies Active Allergy Reactions Criticality Noted Date Comments Aftab Inhibitors Angioedema High 08/09/2021 Azithromycin Agitation Low 08/09/2021 Grass Pollen Sneezing Low 03/23/2022 Medications eplerenone (INSPRA) 50 mg tablet Take 0.5 tablets (25 mg total) by mouth daily 2 Active Jennifer-Silvia 0.8 mg tablet Take 0.8 mg by mouth daily 2 Active furosemide (LASIX) 80 mg tablet Take 1 tablet (80 mg total) by mouth every evening 2 Active sevelamer (RENVELA) 800 mg tablet Take 1 tablet (800 mg total) by mouth 3 (three) times a day with meals 2 Active warfarin (COUMADIN) 3 mg tablet Take 3.5 mg by mouth 3 (three) times a week 3.5mg, mon, wed, fri Active levothyroxine (SYNTHROID) 25 mcg tablet Take 1 tablet (25 mcg total) by mouth daily 2 Active calcitRIOL (ROCALTROL) 0.5 mcg capsule Take 0.25 mcg by mouth daily ONE TAB THREE DAYS A WEEK AND 2 TABS FOUR DAYS A WEEK Active losartan (COZAAR) 50 mg tabletIndications :Hypertensive heart disease with chronic systolic congestive heart failure (CMS/HCC) (HCC) Take 1 tablet (50 mg total) by mouth daily 30 tablet 11 2 Active metoprolol (LOPRESSOR) 100 mg tabletIndications :Longstanding persistent atrial fibrillation (CMS/HCC) (HCC) Take 1 tablet by mouth twice daily 180 tablet 4 Active warfarin (COUMADIN) 2.5 mg tabletIndications :Persistent atrial fibrillation (HCC) TAKE 1 & 1/2 (ONE & ONE-HALF) TABLETS BY MOUTH ONCE DAILY DIRECTED 44 tablet 4 Active warfarin (COUMADIN) 2.5 mg tablet Take 1 tablet (2.5 mg total) by mouth daily 30 tablet 1 4 08/04/19 25 Active Active Problems Problem Noted Date Diagnosed Date Atrial fibrillation (CMS/HCC) 08/10/2021 Encounters Date Type Department Care Team Description 06/05/2024 Anticoagulation Visit [facility] Cardiology [address] [place] [phone] Bull aJramillo RN Permanent atrial fibrillation (CMS/HCC) (HCC) (Primary Dx) 06/03/2024 Telephone [facility] Cardiology [address] [place] [phone] Jama Hoskins MD INR order 05/30/2024 2:15 PM PUBLIC SAFETY TELECOMMUNICATOR Office Visit [facility] Cardiology [address] [place] [phone] Jama Hoskins MD Permanent atrial fibrillation (CMS/HCC) (HCC) (Primary Dx); Chronic anticoagulation 05/14/2024 Telephone [facility]ney [address] [facility] [address] [phone] [place], [place] [phone] Gladys Charlton 05/02/2024 Documentation [facility] [address] [facility] [address] [phone] [place] [address] Annalise Mays 05/01/2024 Telephone [facility] Trans[facility] Kidney [address] [facility] [address] [phone] [place] [address] Abigail Dougherty RN 05/01/2024 Telephone [facility] [address] [facility] [address] [phone] [place] [address] Gladys Charlton 05/01/2024 Telephone [facility] [address] [facility] [address] [phone] [place] [address] Annalise Mays from Last 3 Months Immunizations Name Administration Dates Next Due Hep B Vaccine 03/04/2022,,11/25/2021,10/14/2021,2021 Influenza, Unspecified 05/03/2023 Pneumococcal, Unspecified 08/08/2021 Tdap 12/19/2023,09/27/2023,2022 Surgical History Surgery Date Site/Laterality Comments SECTION 1 TONSILLECTOMY as a child PORTACATH PLACEMENT right upper chest Medical History Medical History Date Comments SOB (shortness of breath) Acute kidney failure, unspecified ([facility]) A-fib (CMS/[facility]) ([facility]) CHF (congestive heart failure) ([facility]) ([facility]) Pneumonia Pleural effusion Hypertension Eczema feet, arms which is resolved Wears glasses Dental root implant present Walker as ambulation aid Permanent central venous catheter in place right upper chest Dialysis patient ([facility]) Family History Medical History Relation Name Comments Heart attack Father No Known Problems Mother Relation Name Status Comments Father (Age 69) Mother Alive Social History Tobacco Use Types Packs/Day Years Used Date Smoking Tobacco: Former Smokeless Tobacco: Never Tobacco Cessation:Counseling Given: Not Answered AUDIT-C Answer Date Recorded Q1: How often [...] on file 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 PUBLIC SAFETY TELECOMMUNICATOR Gender Identity Not on file Sexual Orientation Not on file Obstetrics History Last Filed Vital Signs Vital Sign Reading Time Taken Comments Blood Pressure 130/88 05/30/2024 2:24 PM PUBLIC SAFETY TELECOMMUNICATOR Pulse 108 05/30/2024 2:24 PM PUBLIC SAFETY TELECOMMUNICATOR Temperature 36.4 ??C (97.5 ??F) 04/03/2022 9:15 AM CD T Respiratory Rate 18 04/03/2022 9:45 AM CDT Oxygen Saturation 98% 05/30/2024 2:24 PM PUBLIC SAFETY TELECOMMUNICATOR Inhaled Oxygen Concentration - - Weight 93.9 kg (207 lb) 05/30/2024 2:24 PM PUBLIC SAFETY TELECOMMUNICATOR Height 152.4 cm (5') 05/30/2024 2:24 PM PUBLIC SAFETY TELECOMMUNICATOR Body Mass Index 40.43 05/30/2024 2:24 PM PUBLIC SAFETY TELECOMMUNICATOR Plan of Treatment Health Maintenance Due Date Last Done Comments Breast Cancer Screening-Mammogram 1960 Cervical Cancer Screening 1960 Colon Cancer Screening-Colonoscopy 1960 Depression Screening 1960 Hepatitis C Screening 1960 Regular Well Visit/Exam 18-64 12/26/1979 Zoster Vaccine (1 of 2) 12/26/2011 Covid-19 Vaccine ( - 2023- season) 2024 07/02/2023, 06/28/2021, 10/15/2020, Additional history exists Influenza Vaccine (#1) 2024 05/03/2023 DTaP/Tdap/Td Vaccine (5 - Td or Tdap) 12/18/2033 12/19/2023, 09/27/2023, 2022, Additional history exists Pneumococcal vaccine <65 Aged Out 08/08/2021 No longer eligible based on patient's age to complete this topic Medical Devices Implanted Type Area Warehouse Director Device Identifier Shelf Expiration Date Model / Serial / Lot Dental Implant Other - see comments Description:Upper [employer] [place] 15fr 62cm 2 Cuff Radiopaque Peritoneal Curl Catheter [id number] - [id number] Implanted:Qty: 1 on 04/03/2022 by Sulaiman Hi MD at [facility] Left: Abdomen [employer] 10/16/2026 [id number] / / [id number] Procedures Procedure Name Priority Date/Time Associated Diagnosis Comments PROTIME-INR Routine 06/04/2024 12:25 PM PUBLIC SAFETY TELECOMMUNICATOR Permanent atrial fibrillation (CMS/HCC) (HCC) from Last 3 Months Results * (ABNORMAL) Protime-INR (06/04/2024 12:25 PM PUBLIC SAFETY TELECOMMUNICATOR) INR 3.1(H) [employer]Dru Garcia Comment: Reference Range ? 0.9-1.1 Moderate-intensity Warfarin Therapy 2.0-3.0 Higher-intensity Warfarin Therapy ?? 3.0-4.0 PT 30.8(H) 9.0 - 11.5 sec [employer] Solutions[employer]ru Garcia Comment: For additional information, please refer to http://education.Jelastic/faq/FST973 (This link is being provided for informational/ educational purposes only.) Blood 06/04/2024 12:2 5 PM PUBLIC SAFETY TELECOMMUNICATOR 06/04/2024 12:26 PM PUBLIC SAFETY TELECOMMUNICATOR Jama Hoskins MD LAB BLOOD ORDERABLES Fin al Result Performing Organization Address City/State/[facility] Co de Phone Number [facility] [address] [place] [address] from Last 3 Months Insurance MEDICARE [place] MEDICARE MEDICARE Care Teams Stamp Pad Finisher Relationship Specialty Start Date End Date Brandie Rhoades NP [address] [place] [address] PCP - General Nurse Practitioner 08/09/21 Mookie Dubois MD [address] [place] [address] Referring Physician Nephrology 02/20/22 Abigail Dougherty, RN [address] [facility] [address] [place] [id number] Shoe Repairman 02/13/24 Jama Hoskins MD [address] [facility] [address] [place] [address] Consulting Physician Cardiology 02/20/24
--- OUTSIDE RECORDS SUMMARY | 2024-07-12 15:08 | XMS_ITS | Referral Summary ---
Author Organization [facility] [address] [place] [address] 162 Address [address] [facility] 162 [place] [address] Care Team Providers Care Cdl Program Coordinator Name Role Phone [place], Brandie Quan NP Primary Care Provider Mookie Dubois MD Unavailable [phone] Abigail Dougherty RN Unavailable [phone] Jama Hoskins MD Unavailable Encounters Date Type Department Care Team Description 06/05/2024 Anticoagulation Visit [facility] [address] [place] [address] 162 [address] [place] [address] Bull Jaramillo RN Permanent atrial fibrillation ([facility]/HCC) (HCC) (Primary Dx) 06/03/2024 Telephone [facility] Cardiology [address] [place] [address] [address] [place] [address] Jama Hoskins MD INR order 05/30/2024 2:15 PM TRANSITION NURSE Office Visit [facility] [address] [place] [address] 162 [address] [place] [address] Jama Hoskins MD Permanent atrial fibrillation ([facility]/HCC) (HCC) (Primary Dx); Chronic anticoagulation 05/14/2024 Telephone [facility] Transplant Kidney [address] [facility] [address] Mailstop [phone] [place] [address] Gladys Charlton 05/02/2024 Documentation [facility] Transplant Kidney [address] [facility] [address] Mailstop [phone] [place] [address] Annalise Mays 05/01/2024 Telephone [facility] Transplant Kidney [address] [facility] [address] Mailstop [phone] [place] [address] Abigail Dougherty RN 05/01/2024 Telephone [facility] Transplant Kidney [address] [facility] [address] Mailstop [phone] [place] [address] Gladys Charlton 05/01/2024 Telephone [facility] Transplant Kidney [address] [facility] [address] Mailstop [phone] [place] [address] Annalise Mays from Last 3 Months Allergies Active Allergy Reactions Criticality Noted Date [...] Date Diagnosed Date Atrial fibrillation (CMS/HCC) 08/10/2021 Immunizations Name Administration Dates Next Due Hep B Vaccine 03/04/2022, 2,11/25/2021,10/14/2021,2021 Influenza, Unspecified 05/03/2023 Pneumococcal, Unspecified 08/08/2021 Tdap 12/19/2023,09/27/2023,2022 Social History Tobacco Use Types Packs/Day Years [...] on file 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 TRANSITION NURSE Gender Identity Not on file Sexual Orientation Not on file Last Filed Vital Signs Vital Sign Reading Time Taken Comments Blood Pressure 130/88 05/30/2024 2:24 PM TRANSITION NURSE Pulse 108 05/30/2024 2:24 PM TRANSITION NURSE Temperature 36.4 ??C (97.5 ??F) 04/03/2022 9:15 AM CD T Respiratory Rate 18 04/03/2022 9:45 AM CDT Oxygen Saturation 98% 05/30/2024 2:24 PM TRANSITION NURSE Inhaled Oxygen Concentration - - Weight 93.9 kg (207 lb) 05/30/2024 2:24 PM TRANSITION NURSE Height 152.4 cm (5') 05/30/2024 2:24 PM TRANSITION NURSE Body Mass Index 40.43 05/30/2024 2:24 PM TRANSITION NURSE Plan of Treatment Not on file Medical Devices Implanted Type Area Airport Ramp Attendant Device Identifier Shelf Expiration Date Model / Serial / Lot Dental Implant Other - see comments Description:Upper [employer] Leisenring 15fr 62cm 2 Cuff Radiopaque Peritoneal Curl Catheter [id number] - [id number] Implanted:Qty: 1 on 04/03/2022 by Sulaiman Hi MD at [facility] Left: Abdomen [employer] 10/16/2026 [id number] / / [id number] Procedures Procedure Name Priority Date/Time Associated Diagnosis Comments PROTIME-INR Routine 06/04/2024 12:25 PM TRANSITION NURSE Permanent atrial fibrillation (CMS/HCC) (HCC) from Last 3 Months Results * (ABNORMAL) Protime-INR (06/04/2024 12:25 PM TRANSITION NURSE) INR 3.1(H) Monalisa DaisyBillCammie Garcia Comment: Reference Range ? 0.9-1.1 Moderate-intensity Warfarin Therapy 2.0-3.0 Higher-intensity Warfarin Therapy ?? 3.0-4.0 PT 30.8(H) 9.0 - 11.5 sec BuildingeyeCammie Garcia Comment: For additional information, please refer to http://education.[employer]/faq/SPJ613 (This link is being provided for informational/ educational purposes only.) Blood 06/04/2024 12:2 5 PM TRANSITION NURSE 06/04/2024 12:26 PM TRANSITION NURSE us Jama Hoskins MD LAB BLOOD ORDERABLES Fin al Result [facility] [address] [place] [address] from Last 3 Months Insurance MEDICARE [facility] MEDICARE MEDICARE Care Teams Cdl Program Coordinator Relationship Specialty Start Date End Date Brandie Rhoades NP [address] [place] [address] PCP - General Nurse Practitioner 08/09/21 Mookie Dubois MD [address] [place] [address] Referring Physician Nephrology 02/20/22 Abigail Dougherty, RUPESH [address] [facility] [address] [place] [address] Splitter Machine 02/13/24 Jama Hoskins MD [address] [facility] 162 [facility] 102 [place] [address] Consulting Physician Cardiology 02/20/24
--- OUTSIDE RECORDS SUMMARY | 2024-07-12 15:08 | XMS_ITS | Encounter Summary ---
Author Organization [facility] Healthcare Address [address] [place] [address] Care Team Providers Care Circulation Analyst Name Role Phone [place], Brandie Quan NP Primary Care Provider [phone] Mookie Dubois MD Unavailable [phone] Abigail Dougherty RN Unavailable [phone] Jama Hoskins MD Unavailable [phone] Encounter Details Date Type Department Care Team (Late st Contact Info) Description 02/20/2024 Telephone [facility] Transplant Kidney [address] 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 documented in this encounter Plan of Treatment Not on file documented as of this encounter Visit Diagnoses Not on filedocumented in this encounter Care Teams Circulation Analyst Relationship Specialty Start Date End Date Rhoades, Brandie Quan NP [address] [place] [address] PCP - General Nurse Practitioner 08/09/21 Mookie Dubois MD [address] [place] [address] Referring Physician Nephrology 02/20/22 Abigail Dougherty, RN 45[address] [facility] [address] [place] [address] Sintering Plant Supervisor 02/13/24 Jama Hoskins MD 68[address] [facility] 162 [facility] 102 [place] [address] Consulting Physician Cardiology 02/20/24 documented as of this encounter
--- OUTSIDE RECORDS SUMMARY | 2024-07-12 15:08 | XMS_ITS | Patient Health Summary ---
Author Organization [facility] [employer] Address [address] [place] [address] Care Team Providers Care Irrigation Flume Layer Name Role Phone Unavailable Primary Care Provider Unavailabl e Note from [facility],non-owned Affiliates and Associated Physician Practices is amultiple site organization consisting of ambulatory clinics and hospital sitesin [place], [place], [place] and [place]. This disclosure is being madepursuant to the Care Everywhere program and may not contain all information available regarding this patient. Last updated 18.[facility] [employer] Allergies * unknown-antibiotic? [Other](Other) Medications * Be aware that medications may not be up to date on this document. Alwaysverify current medications with the patient. * warfarin (Coumadin) 2.5 MG tablet Take 1 (one) tablet by mouth Sunday, , * warfarin (Coumadin) 3.75 MG TABS Take by mouth every evening Every Sunday, Sun, Sunday and Sunday Social History Tobacco Use Types Packs/Day Years Used Date Smoking Tobacco: Never Assessed Sex and Gender Information Value Date Recorded Sex Assigned at Not on file Gender Identity Not on file Sexual Orientation Not on file Procedures * IR CENTRAL LINE REMOVAL(Performed 05/29/2022) Performed for End stage renal disease (HCC) * GROSS + MICRO EXAM(Performed 06/23/1996) Results * IR CENTRAL LINE REMOVAL (05/29/2022 7:44 AM ROOM MAID) Anatomical Region Laterality Modality X-Ray Angiograph y Narrative 05/29/2022 12:35 PM ROOM MAID Bladimir Waite MD ? 05/29/2022 12:38 PM Dory Lynn [id number] Interventional Nephrology Procedure Date: ??05/29/2022 Attending Surgeon [...] PLACEMENT: REMOVAL OF TUNNELED CENTRALLY INSERTED CVC; [id number] Findings: 1. ??A 32 cm tip to [...] Waite MD 05/29/2022 12:35 PM [facility] [phone] Mookie Dubois MD [facility] dialysis. Mookie Dubois MD IR ORDERABLES * GROSS + MICRO EXAM (06/23/1996 7:44 AM ROOM MAID) Result CASE NUMBER [id number] Comment: ORDERING PHYSICIAN ?? SPECIMEN TYPE ?Placenta Date ? 06/23/1996 Physician ?Emmanuelle Gross Description ? The specimen is received fresh, labeled with the patient's name, and consists of a 290 gram cronin placenta. ??The placental disc measures 18 x 17 x 1.3 cm. ??The surface is blue-ratliff and glistening ??the maternal surface is purple-ratliff with all cotyledons present and adherent blood clot occupying less than 5% of the surface area. ??The umbilical cord measures approximately 9 cm with a diameter of 0.9 cm ??serial sectioning shows it to contain 3 vessels but otherwise to be unremarkable. ??The umbilical cord insertion is eccentric, within 6 cm of the disc margin. ??The membranes are transparent pink-ratliff with a marginal insertion. ??The placental disc is serially sectioned from the maternal aspect, revealing no additional gross abnormalities. ??Spring Clipper sections are submitted as follows ?? A, membranes and umbilical cord ??B and C, surface ??D and E, maternal surface. DB/lmj Microscopic Exam ? Sections of the membranes are unremarkable. ??Sections of the umbilical cord show it to contain three vessels but are otherwise unremarkable. ??Sections of the placental disc show a mature pattern of villi, with ample syncytial trophoblastic knots and microcalcification. ?? Diagnosis ? I. ??Chorioamniotic membranes ? A. ??No pathologic diagnosis. ?II. ??Placenta ? A. ??No pathologic diagnosis. ? III. ??Umbilical cord ? A. ??No pathologic diagnosis. ?? *Snomed Code 1 ? [id number] - [id number] [employer] Consultant ? kn Pathologist ?Erlin Uriostegui M.D. MISCELLANEOUS SAMPLES / Unknown 06/23/1996 7:44 AM ROOM MAID 06/23/1996 7:44 AM ROOM MAID Historical Provider LAB - PATHOLOGY/C YTOLOGY ORDERABLES
--- OUTSIDE RECORDS SUMMARY | 2024-07-12 15:08 | XMS_ITS | Encounter Summary ---
Author Organization [facility] Healthcare Address [address] [place] [address] Care Team Providers Care Line Technician Name Role Phone [place], Brandie Quan NP Primary Care Provider [phone] Mookie Dubois MD Unavailable [phone] Abigail Dougherty RN Unavailable [phone] Jama Hoskins MD Unavailable [phone] Encounter Details Date Type Department Care Team (Late st Contact Info) Description 05/02/2024 Documentation [facility] Transplant Kidney [phone] [place] [address] Annalise Mays Social History Tobacco Use Types [...] on file 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 Gender Identity Not on file Sexual Orientation Not on file documented as of this encounter Progress Notes * Annalise Mays - 05/02/2024 10:13 AM CDT Scheduled Testing for 08-06-2024 and 08-07-2024 Created schedule letter Will mail schedule, instruction, and map to patient when in office on 05-05-2024 documented in this encounter Plan of Treatment Not on file documented as of this encounter Visit Diagnoses Not on filedocumented in this encounter Care Teams Line Technician Relationship Specialty Start Date End Date Brandie Rhoades NP [address] [place] [address] PCP - General Nurse Practitioner 08/09/21 Mookie Dbuois MD [address] [place] [address] Referring Physician Nephrology 02/20/22 Abigail Dougherty, RN [address] [facility] [address] [place] [address] [employer]ress [employer] Sewer 02/13/24 Jama Hoskins MD [address] [facility] [address] [address] Consulting Physician Cardiology 02/20/24 documented as of this encounter
--- OUTSIDE RECORDS SUMMARY | 2024-07-12 15:08 | XMS_ITS | Encounter Summary ---
Author Organization [facility] Healthcare Address [address] [place] [address] Care Team Providers Care Brick Loader Name Role Phone Rhoades, Brandie Quan NP Primary Care Provider [phone] Mookie Dubois MD Unavailable [phone] Abigail Dougherty RN Unavailable [phone] Jama Hoskins MD Unavailable [phone] Reason for Visit * Reason Comments Atrial Fibrillation 6 mo f/u Encounter Details Date Type Department Care Team (Latest Contact Info) Description 05/30/2024 2:15 PM UX LEAD Office Visit [facility] Cardiology [address] [place] [address] Jama Hoskins MD [address] [place] [address] Permanent atrial fibrillation (CMS/HCC) (HCC) (Primary Dx); Chronic anticoagulation Social History Tobacco Use Types Packs/Day Years [...] on file 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 UX LEAD Gender Identity Not on file Sexual Orientation Not on file documented as of this encounter Last Filed Vital Signs Vital Sign Reading Time Taken Comments Blood Pressure 130/88 05/30/2024 2:24 PM UX LEAD Pulse 108 05/30/2024 2:24 PM UX LEAD Temperature - - Respiratory Rate - - Oxygen Saturation 98% 05/30/2024 2:24 PM UX LEAD Inhaled Oxygen Concentration - - Weight 93.9 kg (207 lb) 05/30/2024 2:24 PM UX LEAD Height 152.4 cm (5') 05/30/2024 2:24 PM UX LEAD Body Mass Index 40.43 05/30/2024 2:24 PM UX LEAD documented in this encounter Progress Notes * Jama Hoskins MD - 05/30/2024 2:15 PM CST [facility] FOLLOW UP 05/30/2024 Dory Lynn is a 63 y.o. female who presents for follow up of atrial fibrillation and cardiomyopathy. This is a patient that was 1st seen in July of 2021 in the hospital at [place] when she presented with dyspnea. She was found to be volume overloaded with evidence of congestive heart failure as well as atrial fibrillation of uncertain chronicity. She was treated medically and loaded with amiodarone. She had a echocardiogram in the hospital apparently that showed a very low ejection fraction of 20-25%. She underwent a LAUREEN guided cardioversion restoring sinus rhythm. She was also found to have end-stage renal failure and was started on hemodialysis during that hospital stay. She was seen in the office for follow-up in July of 2021 by the nurse practitioner at which time she was back in atrial fibrillation. Further attempts at yarsani of sinus rhythm were declined by the patient at that time. In the course of 2021 the patient had a couple of follow-up visits with the nursepractitioner it looks like cardiac-griffin she was doing reasonably well. Her ARB dosage was advanced b ecause of hypertension. It looks like she was then also transitioned from hemodialysis to peritoneal dialysis at home. She returns to the office today for six-month appointment. She continues to take metoprolol, 200 mgdaily for rate control and anticoagulation with warfarin. She has no cardiovascular complaints or concerns. She is slightly tachycardic in the office here today but she keeps a record of her vital signs which she reviewed with me on her phone and her heart rate is generally very well controlled. She is otherwise having no symptoms of a unaware of her arrhythmia. REVIEW OF SYSTEMS General ROS: negative for - chills, fatigue, fever, malaise, night sweats, weight gain or weight loss Psychological ROS: negative for - anxiety, depression, memory difficulties or sleep disturbances Ophthalmic ROS: negative for - blurry vision, decreased vision, loss of vision or scotomata ENT ROS: negative for - epistaxis, headaches, hearing change, nasal congestion, nasal discharge, sore throat, vertigo or visual changes Hematological and Lymphatic ROS: negative for - bleeding problems, blood clots, bruising, fatigue or weight loss Endocrine ROS: negative for - hot flashes, palpitations, polydipsia/polyuria or unexpected weight changes Respiratory ROS: negative for - cough, hemoptysis, orthopnea, shortness of breath, tachypnea or wheezing Cardiovascular ROS: negative for - chest pain, dyspnea on exertion, edema, irregular heartbeat, loss of consciousness, murmur, orthopnea, palpitations, paroxysmal nocturnal dyspnea, rapid heart rate or shortness of breath Gastrointestinal ROS: negative for - abdominal pain, appetite loss, blood in stools, constipation, diarrhea, gas/bloating, heartburn, hematemesis, melena or nausea/vomiting Genito-Urinary ROS: negative for - dysuria, or hematuria Musculoskeletal ROS: negative for - joint pain, muscle pain or muscular weakness Dermatological ROS: negative for dry skin, eczema, pruritus and rash HOME MEDICATIONS Current Outpatient Medications: furosemide (LASIX) 80 mg tablet, Take 1 tablet (80 mg total) by mouth every evening, Disp: , Rfl: levothyroxine (SYNTHROID) 25 mcg tablet, Take 1 tablet (25 mcg total) by mouth daily, Disp: , Rfl: losartan (COZAAR) 50 mg tablet, Take 1 tablet (50 mg total) by mouth daily, Disp: 30 tablet, Rfl: 11 metoprolol (LOPRESSOR) 100 mg tablet, Take 1 tablet by mouth twice daily, Disp: 180 tablet, Rfl: 0 Jennifer-Silvia 0.8 mg tablet, Take 0.8 mg by mouth daily, Disp: , Rfl: sevelamer (RENVELA) 800 mg tablet, Take 1 tablet (800 mg total) by mouth 3 (three) times a day withmeals, Disp: , Rfl: warfarin (COUMADIN) 2.5 mg tablet, TAKE 1 & 1/2 (ONE & ONE-HALF) TABLETS BY MOUTH ONCE DAILY DIRECTED, Disp: 44 tablet, Rfl: 0 warfarin (COUMADIN) 3 mg tablet, Take 3.5 mg by mouth 3 (three) times a week 3.5mg, mon, wed, fri, Disp: , Rfl: calcitRIOL (ROCALTROL) 0.5 mcg capsule, Take 0.25 mcg by mouth daily ONE TAB THREE DAYS A WEEK AND 2 TABS FOUR DAYS A WEEK, Disp: , Rfl: eplerenone (INSPRA) 50 mg tablet, Take 0.5 tablets (25 mg total) by mouth daily, Disp: , Rfl: LABS AND OTHER DIAGNOSTIC TESTS No results found for: CHOL No results found for: HDL No results found for: LDLCALC No results found for: TRIG No results found for: CHOLHDL Lab Results Component Value Date WBC 8.6 04/03/2022 HGB 10.0 (L) 04/03/2022 HCT 31.2 (L) 04/03/2022 MCV 101.0 (H) 04/03/2022 No lab exists for component: LABALBU PHYSICAL EXAM Vitals BP 130/88 (BP Location: Right arm, Patient Position: Sitting) Pulse 108 Ht 152.4 cm (5') Wt 93.9 kg (207 lb) SpO2 98% BMI 40.43 kg/m?? Heart rate 100 by physical exam Physical Examination: General appearance - alert, well appearing, and in no distress, oriented to person, place, and time and acyanotic, in no respiratory distress Mental status - affect appropriate to mood Eyes - extraocular eye movements intact, sclera anicteric, no pallor Ears - external earsappear normal, hearing grossly normal bilaterally Nose - normal and patent, no erythema or discharge Mouth - mucous membranes moist, pharynx appears normal, dental hygiene good and tongue normal Neck - supple, no significant neck masses, carotids upstroke normal bilaterally, no bruits, no JVD Chest - clear to auscultation, no wheezes, rales or rhonchi, symmetric air entry, no tachypnea, retractions or cyanosis Heart - normal rate, irregularly irregular, normal S1, S2, no murmurs, rubs, clicks or gallops, no JVD Abdomen - soft, nontender, nondistended, no masses or organomegaly bowel sounds normal Neurological - alert, oriented, normal speech, no focal findings or movement disorder noted Musculoskeletal - no joint tenderness, deformity or swelling, no muscular tenderness noted Extremities - peripheral pulses normal, no pedal edema, no clubbing or cyanosis Skin - normal coloration and turgor, no rashes, no suspicious skin lesions noted ASSESSMENT Dilated suspect nonischemic cardiomyopathy Permanent atrial fibrillation End-stage renal disease requiring hemodialysis PLAN/RECOMMENDATIONS Continue metoprolol for rate control as well as systemic anticoagulation Follow-up with me 6 months or p.r.n. Jama Hoskins MD LEAD documented in this encounter Miscellaneous Notes * Addendum Note - Mila Cardona MA - 05/30/2024 2:15 PM CSTAddended by: MILA CARDONA on: 05/30/2024 02:50 PM Modules accepted: Orders LEAD documented in this encounter Plan of Treatment Scheduled Orders Name Type Priority Associated Diagnoses Orde r Schedule Protime-INR Lab Routine Chronic anticoagulation weekly for 52 Occurrences starting 05/30/2024 until 05/30/2025 documented as of this encounter Visit Diagnoses Diagnosis Permanent atrial fibrillation (CMS/HCC) (HCC)- Primary Atrial fibrillation Chronic anticoagulation Encounter for long-term (current) use of anticoagulants documented in this encounter Care Teams Brick Loader Relationship Specialty Start Date End Date Brandie Rhoades NP [address] [place] [address] PCP - General Nurse Practitioner 08/09/21 Mookie Dubois MD [address] [place] [address] Referring Physician Nephrology 02/20/22 Abigail Dougherty, RN [address] [address] Ward Helper 7/31/24 Jama Hoskins MD [address] [place] [address] Consulting Physician Cardiology 02/20/24 documented as of this encounter
--- OUTSIDE RECORDS SUMMARY | 2024-07-12 15:08 | XMS_ITS | Encounter Summary ---
Author Organization [facility] Healthcare Address [address] [place] [address] Care Team Providers Care Electrical Controls Technician Name Role Phone [place], Brandie Quan NP Primary Care Provider [phone] Mookie Dubois MD Unavailable [phone] Abigail Dougherty RN Unavailable [phone] Jama Hoskins MD Unavailable [phone] Encounter Details Date Type Department Care Team (Late st Contact Info) Description 02/22/2024 Documentation [facility] Transplant Kidney [address] [phone] [place] [address] Ana Crenshaw Social History Tobacco Use Types Packs/Day Years [...] on file 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 Gender Identity Not on file Sexual Orientation Not on file documented as of this encounter Last Filed Vital Signs Vital Sign Reading Time Taken Comments Blood Pressure - - Pulse - - Temperature - - Respiratory Rate - - Oxygen Saturation - - Inhaled Oxygen Concentration - - Weight 92.5 kg (203 lb 14.8 oz) 02/22/2024 1:24 PM CDT Height 152.4 cm (5') 02/22/2024 1:24 PM CDT Body Mass Index 39.83 02/22/2024 1:24 PM CDT documented in this encounter Progress Notes * Ana Crenshaw - 02/22/2024 1:16 PM CDT Received dialysis records via fax and saved to chart Updated weight and immunizations documented in this encounter Plan of Treatment Not on file documented as of this encounter Visit Diagnoses Not on filedocumented in this encounter Care Teams Electrical Controls Technician Relationship Specialty Start Date End Date Rhoades, Brandie Quan NP [address] [place] [address] PCP - General Nurse Practitioner 08/09/21 Mookie Dubois MD [address] [place] [address] Referring Physician Nephrology 02/20/22 Abigail Dougherty, RN [address] [facility] [address] [place] [address] Sql Report Writer 02/13/24 Jama Hoskins MD [address] [facility] [address] [place] [address] Consulting Physician Cardiology 02/20/24 documented as of this encounter
--- OUTSIDE RECORDS SUMMARY | 2024-07-12 15:08 | XMS_ITS | Encounter Summary ---
Author Organization [facility] Healthcare Address [address] [place] [address] Care Team Providers Care Partner Marketing Intern Name Role Phone Rhoades, Brandie Quan NP Primary Care Provider [phone] Mookie Dubois MD Unavailable [phone] Abigail Dougherty RN Unavailable [phone] Jama Hoskins MD Unavailable [phone] Reason for Referral * Diagnostic Imaging (Routine) - Authorized Specialty Diagnoses / Procedures Referred By Contac t Referred To Contact Diagnoses End stage renal disease (CMS/HCC) ([facility]) Procedures NM MPI SPECT (Rest and/or Stress) Multiple Studies Minda Rodriguez MD [address] [place] [address] Phone: tel: fax: [facility] [address] [place] [address] Referral ID Status Reason Start Date Expiration Date V isits Requested Visits Authorized [id number] Authorized 02/20/2024 03/21/2025 1 1 * Procedure (Routine) - Authorized Specialty Diagnoses / Procedures Referred By Contac t Referred To Contact Diagnoses End stage renal disease (CMS/HCC) (HCC) Procedures Pulmonary Function Test -[facility] U Adult PFT Lab- CAM-8D; Standard, Walk for Distance; Spirometry, Spirometry w/bronchodilator, DLCO and Lung Volumes Minda Rodriguez MD [address] [address] Phone: tel: fax: Referral ID Status Reason Start Date Expiration Date V isits Requested Visits Authorized [id number] Authorized 02/20/2024 03/21/2025 1 1 * MRI/CAT/PET Scan (Routine) - Authorized Specialty Diagnoses / Procedures Referred By Contac t Referred To Contact Radiology Diagnoses End stage renal disease (CMS/HCC) (HCC) Procedures CT Chest Abdomen Pelvis WO Contrast Minda Rodriguez MD [address] [address] Phone: tel: fax: [address] [address] Referral ID Status Reason Start Date Expiration Date V isits Requested Visits Authorized [id number] Authorized 02/20/2024 03/21/2025 1 1 * Cardiology (Routine) - Authorized Specialty Diagnoses / Procedures Referred By Contac t Referred To Contact Diagnoses End stage renal disease (CMS/HCC) (HCC) Procedures ECG 12 lead Minda Rodriguez MD [address] [place] [address] Phone: tel: fax: [address] [address] Referral ID Status Reason Start Date Expiration Date V isits Requested Visits Authorized [id number] Authorized 02/20/2024 03/21/2025 1 1 * Diagnostic Imaging (Routine) - Authorized Specialty Diagnoses / Procedures Referred By Contac t Referred To Contact Diagnoses End stage renal disease (CMS/HCC) (HCC) Procedures XR Orthopantogram Panorex Minda Rodriguez MD [address] [facility] [address] [place] [address] Phone: tel: fax: [facility] [place] [address] Referral ID Status Reason Start Date Expiration Date V isits Requested Visits Authorized [id number] Authorized 02/20/2024 03/21/2025 1 1 Encounter Details Date Type Department Care Team (Late st Contact Info) Description 02/20/2024 Telephone [facility] Transplant Kidney [address] [facility] [address] Mailstop [phone] [place], [place] [id number] Abigail Dougherty, RN [address] [facility] [address] [place] [address] Social History Tobacco Use Types Packs/Day Years [...] on file 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 I encouraged her to call with any questions at any time throughout the evaluation process explaining to her that we want her to have informed consent. I explained any potential donors have to call our office to initiate their donor evaluation and that I cannot give her any donor results, explaining I have to give the results to the donors only. I informed the patient that other departments may call or text to verify the appointments with them. I stressed that these appointments are not the first or only appointments for the day. The patientwill need to go by the schedule they receive from the transplant department. If they have any questions or need to reschedule, they are to call the transplant department at [phone]. Please schedule pt for the following Pt does dialysis PD Please obtain [phone]. No Transplant Education Video - this will be sent to your email Finance phone consult Day 1 -May 05, 2024 1) Labs 2) EKG 3) Panorex 4) PFT with 6MW 5) NON-contrast CT of chest/ ab/pelvis 6) Clinic at 1 p.m. Day 2 - schedule for 1st available M/W/F / 1) SW consult 2) NM stress test documented in this encounter Plan of Treatment Scheduled Orders Name Type Priority Associated Diagnoses Order Schedule ABO/Rh Lab Routine End stage renal disease ([facility]) ([facility]) Expected: 02/23/2024, Expires: 02/19/2025 CBC with auto differential Lab Routine End stage renal disease ([facility]) ([facility]) Expected: 02/23/2024, Expires: 02/19/2025 CMV, IgG Blood Microbiology Routine End stage renal disease ([facility]) ([facility]) Expected: 02/23/2024, Expires: 02/19/2025 Comprehensive metabolic panel Lab Routine End stage renal disease ([facility]) ([facility]) Expected: 02/23/2024, Expires: 02/19/2025 Creatinine, urine, random Lab Routine End stage renal disease ([facility]) ([facility]) Expected: 02/23/2024, Expires: 02/19/2025 Corrine-Elizabeth virus (EBV) antibody panel Blood Microbiology Routine End stage renal disease ([facility]) ([facility]) Expected: 02/23/2024, Expires: 02/19/2025 Ferritin Lab Routine End stage renal disease ([facility]) ([facility]) Expected: 02/23/2024, Expires: 02/19/2025 Gamma GT Lab Routine End stage renal disease ([facility]) ([facility]) Expected: 02/23/2024, Expires: 02/19/2025 HIV 1/2 Antibody plus p24 Antigen Blood Microbiology Routine End stage renal disease (CMS/HCC) (HCC) Expected: 02/23/2024, Expires: 02/19/2025 HSV 1 IgG Antibody Blood Microbiology Routine End stage renal disease (CMS/HCC) (HCC) Expected: 02/23/2024, Expires: 02/19/2025 HSV 2 IgG Antibody Blood Microbiology Routine End stage renal disease (CMS/HCC) (HCC) Expected: 02/23/2024, Expires: 02/19/2025 Hemoglobin A1c Lab Routine End stage renal disease (CMS/HCC) (HCC) Expected: 02/23/2024, Expires: 02/19/2025 Hepatitis B core antibody, total Blood Microbiology Routine End stage renal disease (CMS/HCC) (HCC) Expected: 02/23/2024, Expires: 02/19/2025 Hepatitis B surface antibody (immune status) Blood Microbiology Routine End stage renal disease (CMS/HCC) (HCC) Expected: 02/23/2024, Expires: 02/19/2025 Hepatitis B Surface Antigen Blood Microbiology Routine End stage renal disease (CMS/HCC) (HCC) Expected: 02/23/2024, Expires: 02/19/2025 Hepatitis C antibody Blood Microbiology Routine End stage renal disease (CMS/HCC) (HCC) Expected: 02/23/2024, Expires: 02/19/2025 Iron profile w/ IBC Lab Routine End stage renal disease (CMS/HCC) (HCC) Expected: 02/23/2024, Expires: 02/19/2025 Lipid panel Lab Routine End stage renal disease (CMS/HCC) (HCC) Expected: 02/23/2024, Expires: 02/19/2025 PTH Lab Routine End stage renal disease (CMS/HCC) (HCC) Expected: 02/23/2024, Expires: 02/19/2025 aPTT Lab Routine End stage renal disease (CMS/HCC) (HCC) Expected: 02/23/2024, Expires: 02/19/2025 Phosphorus Lab Routine End stage renal disease (CMS/HCC) (HCC) Expected: 02/23/2024, Expires: 02/19/2025 Protein, urine, random Lab Routine End stage renal disease (CMS/HCC) (HCC) Expected: 02/23/2024, Expires: 02/19/2025 Protime-INR Lab Routine End stage renal disease ([facility]) ([facility]) Expected: 02/23/2024, Expires: 02/19/2025 RPR Blood Microbiology Routine End stage renal disease ([facility]) ([facility]) Expected: 02/23/2024, Expires: 02/19/2025 Type and screen Lab Routine End stage renal disease ([facility]) ([facility]) Expected: 02/23/2024, Expires: 02/19/2025 Urinalysis reflex to microscopic Lab Routine End stage renal disease ([facility]) ([facility]) Expected: 02/23/2024, Expires: 02/19/2025 Varicella Zoster IgG antibody Blood Microbiology Routine End stage renal disease ([facility]) ([facility]) Expected: 02/23/2024, Expires: 02/19/2025 Uric acid Lab Routine End stage renal disease ([facility]) ([facility]) Expected: 02/23/2024, Expires: 02/19/2025 XR Orthopantogram Panorex Imaging Schedule Routine, Read Routine (OP Routine) End stage renal disease ([facility]) ([facility]) Expected: 02/20/2024, Expires: 02/19/2025 ECG 12 lead ECG Routine End stage renal disease ([facility]) ([facility]) 1 Occurrences starting 02/20/2024 until 02/19/2025 LR HLA Typing (Class I and Class II) Lab Routine End stage renal disease ([facility]) ([facility]) Expected: 02/23/2024, Expires: 02/19/2025 Collection Task for HLA Typing 1 Lab Routine End stage renal disease ([facility]) ([facility]) Expected: 02/23/2024, Expires: 02/19/2025 Collection Task for HLA Typing 2, Patient Lab Routine End stage renal disease ([facility]) ([facility]) Expected: 02/23/2024, Expires: 02/19/2025 HLA Antibody Screen - SAB (Class I and Class II) Lab Routine End stage renal disease ([facility]) ([facility]) Expected: 02/23/2024, Expires: 02/19/2025 Collection Task for HLA Antibody Screen Lab Routine End stage renal disease ([facility]) ([facility]) Expected: 02/23/2024, Expires: 02/19/2025 CT Chest Abdomen Pelvis WO Contrast Imaging Schedule Routine, Read Routine (OP Routine) End stage renal disease (CMS/HCC) ([facility]) Expected: 02/20/2024, Expires: 02/19/2025 Pulmonary Function Test -[place] [facility] Adult PFT Lab- CAM-8D; Standard, Walk for Distance; Spirometry, Spirometry w/bronchodilator, DLCO and Lung Volumes PFT Routine End stage renal disease (CMS/HCC) ([facility]) 1 Occurrences starting 02/20/2024 until 02/19/2025 NM MPI SPECT (Rest and/or Stress) Multiple Studies Imaging Schedule Routine, Read Routine (OP Routine) End stage renal disease (CMS/HCC) ([facility]) Expected: 02/20/2024, Expires: 02/19/2025 documented as of this encounter Visit Diagnoses Diagnosis End stage renal disease (CMS/HCC) ([facility])- Primary End stage renal disease documented in this encounter Care Teams Partner Marketing Intern Relationship Specialty Start Date End Date Brandie Rhoades NP [address] [place] [address] PCP - General Nurse Practitioner 08/09/21 Mookie Dubois MD [address] [place] [address] Referring Physician Nephrology 02/20/22 Abigail Dougherty, RN [address] [facility] [address] [place] [address] Systems Developer 02/13/24 Jama Hoskins MD [address] [facility] [address] [place] [address] Consulting Physician Cardiology 02/20/24 documented as of this encounter
--- OUTSIDE RECORDS SUMMARY | 2024-07-12 15:08 | XMS_ITS | Encounter Summary ---
Author Organization [facility] Address [address] [facility] [place] [address] Care Team Providers Care Roof Fitter Name Role Phone Unavailable Primary Care Provider Unavailabl e Encounter Details Date Type Department Care Team (Late st Contact Info) Description 06/23/1996 Orders Only [facility] [address] [place] [address] ProviderPeggy MD Social History Tobacco Use Types Packs/Day Years Used Date Smoking Tobacco: Never Assessed Sex and Gender Information Value Date Recorded Sex Assigned at Not on file Gender Identity Not on file Sexual Orientation Not on file documented as of this encounter Plan of Treatment Not on file documented as of this encounter Procedures Procedure Name Priority Date/Time Associated Diagnosis Comments GROSS + MICRO EXAM MONIQUE 06/23/1996 7: 44 AM SANITARIAN documented in this encounter Results * GROSS + MICRO EXAM (06/23/1996 7:44 AM SANITARIAN) Result CASE NUMBER [id number] Comment: ORDERING PHYSICIAN ?? SPECIMEN TYPE ?Placenta [...] maternal aspect, revealing no additional gross abnormalities. ??Accounts Receivable Administrator sections are submitted as follows ?? A, [...] pathologic diagnosis. ?? *Snomed Code 1 ? [id number] - [id number] Target Setter ? kn Pathologist ?Erlin Uriostegui M.D. MISCELLANEOUS SAMPLES / Unknown 06/23/1996 7:44 AM SANITARIAN 06/23/1996 7:44 AM SANITARIAN Historical Provider LAB - PATHOLOGY/C YTOLOGY ORDERABLES documented in this encounter Visit Diagnoses Not on filedocumented in this encounter
--- OUTSIDE RECORDS SUMMARY | 2024-07-12 15:08 | XMS_ITS | Encounter Summary ---
Author Organization [facility] Healthcare Address [address] [place] [address] Care Team Providers Care Side Laster Staple Name Role Phone [place], Brandie Quan NP Primary Care Provider [phone] Mookie Dubois MD Unavailable [phone] Abigail Dougherty RN Unavailable [phone] Jama Hoskins MD Unavailable [phone] Encounter Details Date Type Department Care Team (Late st Contact Info) Description 05/01/2024 Telephone [facility] Transplant Kidney [address] [address] Mailstop [phone] [place] [address] Gladys Charlton Social History Tobacco Use Types Packs/Day Years [...] on file 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 Gender Identity Not on file Sexual Orientation Not on file documented as of this encounter Miscellaneous Notes * Telephone Encounter - Gladys Charlton - 05/01/2024 10:39 AM CDT Called pt for consult but had to lv msg requesting call back to reschedule documented in this encounter Plan of Treatment Not on file documented as of this encounter Visit Diagnoses Not on filedocumented in this encounter Care Teams Side Laster Staple Relationship Specialty Start Date End Date Rhoades, Brandie Quan NP [address] [place] [address] PCP - General Nurse Practitioner 08/09/21 Mookie Dubois MD [address] [place] [address] Referring Physician Nephrology 02/20/22 Abigail Dougherty, RN [address] [facility] [address] [place] [address] Steel Erector Apprentice 02/13/24 Jama Hoskins MD [address] [facility] [address] [place] [address] Consulting Physician Cardiology 02/20/24 documented as of this encounter
--- OUTSIDE RECORDS SUMMARY | 2024-07-12 15:08 | XMS_ITS | Referral Summary ---
Author Organization [facility] Address [address] [place] [address] Care Team Providers Care Line Installer Repairer Name Role Phone Unavailable Primary Care Provider Unavailabl e Source Comments [facility],non-owned Affiliates and Associated Physician Practices is amultiple site organization consisting of ambulatory clinics and hospital sitesin [place], [place], [place] and [place]. This disclosure is being madepursuant to the Care Everywhere program and may not contain all information available regarding this patient. Last updated 18.[facility] Allergies Active Allergy Reactions Criticality Noted Date [...] Orientation Not on file Plan of Treatment Not on file
--- OUTSIDE RECORDS SUMMARY | 2024-07-12 15:08 | XMS_ITS | Encounter Summary ---
Author Organization [facility] Healthcare Address [address] [place] [address] Care Team Providers Care Life Insurance Actuary Name Role Phone [place], Brandie Quan NP Primary Care Provider [phone] Mookie Dubois MD Unavailable [phone] Abigail Dougherty RN Unavailable [phone] Jama Hoskins MD Unavailable [phone] Encounter Details Date Type Department Care Team (Late st Contact Info) Description 05/01/2024 Telephone 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 She is not able to make her appointments this month. She has recently moved and is still working on both homes. Please cancel her appointments on 05/05 and 05/09 and reschedule her for August 06, 2024 and August 07, 2024. She needs to have appointments after 9 a.m. due to her dialysis. You can schedule testing on either day. Clinic will need to be scheduled for August 06 at 2:30. The remaining testing needed: PET stress PFT with 6 minute walk Labs EKG Panorex SW Non contrast CT chest/Abd/Pelvis documented in this encounter Plan of Treatment Not on file documented as of this encounter Visit Diagnoses Not on filedocumented in this encounter Care Teams Life Insurance Actuary Relationship Specialty Start Date End Date Rhoades, Brandie Quan NP [address] [place] [address] PCP - General Nurse Practitioner 08/09/21 Mookie Dubois MD [address] [place] [address] Referring Physician Nephrology 02/20/22 Abigail Dougherty, RN [address] [facility] [address] [place] [address] Cement Crusher Operator 02/13/24 Jama Hoskins MD [address] [place] [address] Consulting Physician Cardiology 02/20/24 documented as of this encounter
--- OUTSIDE RECORDS SUMMARY | 2024-07-12 15:08 | XMS_ITS | Encounter Summary ---
Author Organization [facility] Healthcare Address [address] [place] [address] Care Team Providers Care Portable Sawyer Name Role Phone [place], Brandie Quan NP Primary Care Provider [phone] Mookie Dubois MD Unavailable [phone] Abigail Dougherty RN Unavailable [phone] Jama Hoskins MD Unavailable [phone] Encounter Details Date Type Department Care Team (Late st Contact Info) Description 02/27/2024 Documentation [facility] and [facility] Transplant Kidney [phone] [place] [address] Annalise Mays Social History Tobacco Use Types [...] on file 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 Gender Identity Not on file Sexual Orientation Not on file documented as of this encounter Progress Notes * Annalise Mays - 02/27/2024 7:40 AM CDT Scheduled C/C appointments for 05-05-2024 and 05-09-2024 Scheduled Finance for 05-01-2024 Created schedule letter Will mail schedule, map, instructions, consents, and education to patient when in office on 03-03-2024 documented in this encounter Plan of Treatment Not on file documented as of this encounter Visit Diagnoses Not on filedocumented in this encounter Care Teams Portable Sawyer Relationship Specialty Start Date End Date [place], Brandie Quan NP [address] [place] [address] PCP - General Nurse Practitioner 08/09/21 Mookie Dubois MD [address] [place] [address] Referring Physician Nephrology 02/20/22 Abigail Dougherty, RN [address] [facility] [address] [place] [address] Systems Test Technician 02/13/24 Jama Hoskins MD [address] [address] Consulting Physician Cardiology 02/20/24 documented as of this encounter
--- OUTSIDE RECORDS SUMMARY | 2024-07-12 15:08 | XMS_ITS | Encounter Summary ---
Author Organization [facility] Healthcare Address [address] [place] [address] Care Team Providers Care General Manager Land Department Name Role Phone [place], Brandie Quan NP Primary Care Provider [phone] Mookie Dubois MD Unavailable [phone] Abigail Dougherty RN Unavailable [phone] Jama Hoskins MD Unavailable [phone] Encounter Details Date Type Department Care Team (Late st Contact Info) Description 02/20/[address] 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 Gender Identity Not on file Sexual Orientation Not on file documented as of this encounter Plan of Treatment Not on file documented as of this encounter Visit Diagnoses Not on filedocumented in this encounter Care Teams General Manager Land Department Relationship Specialty Start Date End Date Rhoades, Brandie Quan NP [address] [place] [address] PCP - General Nurse Practitioner 08/09/21 Mookie Dubois MD [address] [place] [address] Referring Physician Nephrology 02/20/22 Abigail Duogherty, RN [address] [facility] [address] [place] [address] Mobile Ui Developer 02/13/24 Jama Hoskins MD [address] [facility] [address] [facility] [address] [place] [address] Consulting Physician Cardiology 02/20/24 documented as of this encounter
--- OUTSIDE RECORDS SUMMARY | 2024-07-12 15:08 | XMS_ITS | Encounter Summary ---
Author Organization [facility] Healthcare Address [address] [place] [address] Care Team Providers Care Architecture Department Chair Name Role Phone Verona, Brandie Quan NP Primary Care Provider [phone] Mookie Dubois MD Unavailable [phone] Abigail Dougherty RN Unavailable [phone] Jama Hoskins MD Unavailable [phone] Encounter Details Date Type Department Care Team (Late st Contact Info) Description 05/14/2024 Telephone [facility] Transplant Kidney [address] [address] [address] [phone] [place] [address] Gladys Charlton Social History Tobacco Use Types [...] on file 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 Pt stated she was in the middle of moving so Finance suggested to call pt first part of Jul 2024 to reschedule. Pt has eval testing in Jul 2024 so Finance will try toconsult with pt prior to testing. Pt is agreeable. Pt confirmed keeping Medicare and [place] Medicaid [id number]. documented in this encounter Plan of Treatment Not on file documented as of this encounter Visit Diagnoses Not on filedocumented in this encounter Care Teams Architecture Department Chair Relationship Specialty Start Date End Date Verona, Brandie Quan NP [address] [place] [address] PCP - General Nurse Practitioner 08/09/21 Mookie Dubois MD [address] [place] [address] Referring Physician Nephrology 02/20/22 Abigail Dougherty, RN [address] [facility] [address] [place] [address] Merchandise Appraiser 02/13/24 Jama Hoskins MD [address] [facility] [address] [facility] [address] [place] [address] Consulting Physician Cardiology 02/20/24 documented as of this encounter
--- OUTSIDE RECORDS SUMMARY | 2024-07-12 15:08 | XMS_ITS | Encounter Summary ---
Author Organization [facility] Healthcare Address [address] [place] [address] Care Team Providers Care Glass Breaker Name Role Phone Verona, Brandie Quan NP Primary Care Provider [phone] Mookie Dubois MD Unavailable [phone] Abigail Dougherty RN Unavailable [phone] Encounter Details Date Type Department Care Team (Late st Contact Info) Description 02/18/2024 Telephone [facility] Medical Group Cardiology [address] [facility] [address] [address] Jama Hoskins MD [address] [facility] [address] [facility] [address] [place] [address] Social History Tobacco Use Types Packs/Day Years [...] on file 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 * Telephone Encounter - Taylor Tom - 02/18/2024 12:18 PM CDT Patient requesting refill for Warfarin 2.5 mg with 90 day supply. Please send to [facility]. Thank you. Contact: documented in this encounter Plan of Treatment Not on file documented as of this encounter Visit Diagnoses Diagnosis Persistent atrial fibrillation (HCC) Atrial fibrillation documented in this encounter Discontinued Medications Medication Sig Discontinue Reason Start Date End Da te warfarin (COUMADIN) 2.5 mg tabletIndications:Persis tent atrial fibrillation (HCC) TAKE 1 & 1/2 (ONE & ONE-HALF) TABLETS BY MOUTH ONCE DAILY DIRECTED 01/24/2024 02/18/2024 documented as of this encounter Care Teams Glass Breaker Relationship Specialty Start Date End Date Brandie Rhoades NP [address] [place] [address] PCP - General Nurse Practitioner 08/09/21 Mookie Dubois MD [address] [place] [address] Referring Physician Nephrology 02/20/22 Abigail Dougherty, RN [address] [address] Gas Operations Analyst 02/13/24 documented as of this encounter
--- OUTSIDE RECORDS SUMMARY | 2024-07-12 15:08 | XMS_ITS | Encounter Summary ---
Author Organization [facility] Healthcare Address [address] [place] [address] Care Team Providers Care Cloth Cutter Name Role Phone Rhoades, Brandiegricelda Quan NP Primary Care Provider + [phone] Mookie Dubois MD Unavailable [phone] Abigail Dougherty RN Unavailable Jama Hoskins MD Unavailable [phone] Reason for Visit * Reason Onset Date Comments INR order 06/03/2024 Encounter Details Date Type Department Care Team (Late st Contact Info) Description 06/03/2024 Telephone [facility] Medical Group Cardiology [address] [facility] [address] [place] [address] Jama Hoskins MD [address] [place] [address] INR order Social History Tobacco Use Types Packs/Day Years [...] on file 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 UNDERWRITER * Telephone Encounter - Anna Gilmore - 06/03/2024 1:54 PM CST Patient requesting standing INR order be sent to [facility]. Thank you. Contact [phone] UNDERWRITER documented in this encounter Plan of Treatment Scheduled Orders Name Type Priority Associated Diagnoses Orde r Schedule Protime-INR Lab Routine Permanent atrial fibrillation (CMS/HCC) (HCC) 52 Occurrences starting 06/03/2024 until 06/03/2025, 1 completed documented as of this encounter Procedures Procedure Name Priority Date/Time Associated Diagnosis Comments PROTIME-INR Routine 06/04/2024 12:25 PM FHA UNDERWRITER Permanent atrial fibrillation (CMS/HCC) (HCC) documented in this encounter Results * (ABNORMAL) Protime-INR (06/04/2024 12:25 PM FHA UNDERWRITER) INR 3.1(H) [facility] Comment: Reference Range ? 0.9-1.1 Moderate-intensity Warfarin Therapy 2.0-3.0 Higher-intensity Warfarin Therapy ?? 3.0-4.0 PT 30.8(H) 9.0 - 11.5 sec [facility] Comment: For additional information, please refer to http://education.Comeet/faq/MSH727 (This link is being provided for informational/ educational purposes only.) Blood 06/04/2024 12:2 5 PM FHA UNDERWRITER 06/04/2024 12:26 PM FHA UNDERWRITER Jama Hoskins MD LAB BLOOD ORDERABLES Fin al Result [facility] [address] [place] [address] documented in this encounter Visit Diagnoses Diagnosis Permanent atrial fibrillation (CMS/HCC) (HCC)- Primary Atrial fibrillation documented in this encounter Care Teams Cloth Cutter Relationship Specialty Start Date End Date Brandie Rhoades NP [address] [place] [address] PCP - General Nurse Practitioner 08/09/21 Mookie Dubois MD [address] [place] [address] Referring Physician Nephrology 02/20/22 Abigail Dougherty, RN [address] [facility] [address] [place] [address] Wealth Management Manager 02/13/24 Jama Hoskins MD [address] [place] [address] Consulting Physician Cardiology 02/20/24 documented as of this encounter
--- OUTSIDE RECORDS SUMMARY | 2024-07-12 15:09 | XMS_ITS | Encounter Summary ---
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 * Telephone Encounter - Dominga Diaz MA - 10/19/2023 1:52 PM CDT Sent in temp supply of Warfarin. Looks like pt is due for INR documented in this encounter Plan of Treatment Not on file documented as of this encounter Visit Diagnoses Not on filedocumented in this encounter Care Teams Manager Salt Relationship Specialty Start Date End Date Verona, Brandie Quan NP [address] [place] [address] PCP - General Nurse Practitioner 08/09/21 Mookie Dubois MD [address] [place] [address] Referring Physician Nephrology 02/20/22 documented as of this encounter
--- OUTSIDE RECORDS SUMMARY | 2024-07-12 15:09 | XMS_ITS | Encounter Summary ---
Author Organization [facility] Healthcare Address [address] [place] [address] Care Team Providers Care Sales Vice President Name Role Phone Verona, Brandie Quan NP Primary Care Provider [phone] Mookie Dubois MD Unavailable [phone] Abigail Dougherty RN Unavailable [phone] Reason for Referral * Transplant (Routine) - Authorized Specialty Diagnoses / Procedures Referred By Contac t Referred To Contact Transplant Diagnoses ESRD (end stage renal disease) (CMS/[facility]) (HCC) Minda Rodriguez MD [address] [place] [address] Phone: tel: fax: [facility] Transplant Kidney [address] [facility] [address] [phone] [place] [address] Phone: tel: fax: Referral ID Status Reason Start Date Expiration Date Visits Requested Visits Authorized [id number] Authorized Specialty Services Required 02/13/2024 02/12/2034 1 1 Question Answer Organ Kidney [[id number]] Please select the performing region: [facility] [[id number]] Please select the performing department: [facility]NEY TRANSPLANT [[id number]] Reason for Visit * Reason Onset Date Comments Referral - Kidney Txp 02/12/2024 Encounter Details Date Type Department Care Team (Late st Contact Info) Description 02/12/2024 Telephone [facility] Transplant Kidney [address] [facility] [address] Mail[address] [phone] [place] [address] Loli Moran Referral - Kidney Txp Social History Tobacco Use Types Packs/Day Years [...] on file 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[employer] Gender Identity Not on file Sexual Orientation Not on file documented as of this encounter Miscellaneous Notes * Telephone Encounter - Ana Alicia - 02/13/2024 8:20 AM CDT Patient has Medicare and IPA * Telephone Encounter - Loli Moran - 02/13/2024 8:05 AM CDT Patient initially referred to Abigail for Kidney Transplant evaluation on 02/13/24 Patient is currently on dialysis All required referral documents located in chart * Telephone Encounter - Loli Moran - 02/12/2024 1:42 PM CDT Received referral for Kidney transplant via fax from dialysis unit Patient BMI 40.09 Routed to coordinator for review documented in this encounter Plan of Treatment Scheduled Referrals Name Type Priority Associated Diagnoses Order Schedule Transplant Referral for Financial Clearance Outpatient Referral Routine ESRD (end stage renal disease) ([facility]/HCC) (HCC) Ordered: 02/13/2024 documented as of this encounter Visit Diagnoses Diagnosis ESRD (end stage renal disease) (CMS/HCC) (HCC)- Primary End stage renal disease documented in this encounter Care Teams Sales Vice President Relationship Specialty Start Date End Date Brandie Rhoades NP [address] [place] [address] PCP - General Nurse Practitioner 08/09/21 Mookie Dubois MD [address] [place] [address] Referring Physician Nephrology 02/20/22 Abigail Dougherty, RN [address] [address] Panel Builder 02/13/24 documented as of this encounter
--- OUTSIDE RECORDS SUMMARY | 2024-07-12 15:09 | XMS_ITS | Encounter Summary ---
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
--- OUTSIDE RECORDS SUMMARY | 2024-07-12 15:09 | XMS_ITS | Encounter Summary ---
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
--- OUTSIDE RECORDS SUMMARY | 2024-07-12 15:09 | XMS_ITS | Encounter Summary ---
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
--- OUTSIDE RECORDS SUMMARY | 2024-07-12 15:09 | XMS_ITS | Encounter Summary ---
Author Organization [facility] Healthcare Address [address] [place] [address] Care Team Providers Care Light Cleaner Name Role Phone Brandie Rhoades NP Primary Care Provider [phone] Mookie Dubois MD Unavailable Encounter Details Date Type Department Care Team (Latest Contact Info) Description 12/17/[address] 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
--- OUTSIDE RECORDS SUMMARY | 2024-07-12 15:09 | XMS_ITS | Encounter Summary ---
Author Organization [facility] Address [address] [facility] [address] [place] [address] Care Team Providers Care Manager Intelligence Name Role Phone Rhoades Brandie Quan NP Primary Care Provider [phone] Mookie Dubois MD Unavailable [phone] Reason for Visit * Reason Comments Cardiomyopathy Atrial Fibrillation 3 month follow up. Encounter Details Date Type Department Care Team (Late st Contact Info) Description 08/24/2022 10:30 AM INTERNET SPECIALIST Office Visit [facility] Cardiology [address] [facility] [address] [address] Jama Hoskins MD [address] [facility] [address] [address] Atrial fibrillation, unspecified type (HCC) (Primary Dx); Lipid screening Social History Tobacco Use Types Packs/Day Years [...] on file 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 INTERNET SPECIALIST Gender Identity Not on file Sexual Orientation Not on file documented as of this encounter Last Filed Vital Signs Vital Sign Reading Time Taken Comments Blood Pressure 132/90 08/24/2022 10:41 AM INTERNET SPECIALIST Pulse 108 08/24/2022 10:41 AM INTERNET SPECIALIST Temperature - - Respiratory Rate - - Oxygen Saturation 98% 08/24/2022 10:41 AM INTERNET SPECIALIST Inhaled Oxygen Concentration - - Weight 86.2 kg (190 lb) 08/24/2022 10:41 AM INTERNET SPECIALIST Height 152.4 cm (5') 08/24/2022 10:41 AM INTERNET SPECIALIST Body Mass Index 37.11 08/24/2022 10:41 AM INTERNET SPECIALIST documented in this encounter Progress Notes * Jama Hoskins MD - 08/24/2022 10:30 AM CST [facility] FOLLOW UP 08/24/2022 Dory Lynn is a 61 y.o. female who presents for follow up of atrial fibrillation and cardiomyopathy. This is a patient that was 1st seen in July of 2021 in the hospital at [facility] when she presented with dyspnea. She was [...] time she was back in atrial fibrillation. According to the note an attempt at a repeat cardioversion was recommended to happen within the next 1-2 weeks. That never happened because the patient went home and spoke to her family and decided against having another cardioversion procedure done. In the course of 2021the patient had a couple of follow-up visits with the nurse practitioner it looks like cardiac-hakeem was doing reasonably well. Her ARB dosage was advanced because of hypertension. It looks like she was then also transitioned from hemodialysis to peritoneal dialysis at home. She returns to the office today for scheduled follow-up appointment. She does not describe any symptoms of decompensated heart failure not having any chest pain. She was somewhat concerned that her weight continues to slowly increase she says she is not eating excessive amount of calories and she is keeping track of her peritoneal dialysis very closely. REVIEW OF SYSTEMS General ROS: negative for [...] nausea/vomiting Genito-Urinary ROS: negative for - dysuria, erectile dysfunction or hematuria Musculoskeletal ROS: negative for - joint pain, muscle pain or muscular weakness Dermatological ROS: negative for dry skin, eczema, pruritus and rash HOME MEDICATIONS Current Outpatient Medications: calcitRIOL (ROCALTROL) 0.5 mcg capsule, Take 0.5 mcg by mouth daily Take 2 capsules 3 times a week,Disp: , Rfl: eplerenone (INSPRA) 50 mg tablet, Take 50 mg by mouth daily, Disp: , Rfl: ferrous sulfate 325 mg (65 mg of elemental iron) tablet, Take 65 mg of elemental iron by mouth daily with breakfast (Patient not taking: Reported on 05/22/2022), Disp: , Rfl: furosemide (LASIX) 80 mg tablet, Take 80 mg by mouth every evening, Disp: , Rfl: levothyroxine (SYNTHROID) 25 mcg tablet, Take 25 mcg by mouth daily, Disp: , Rfl: losartan (COZAAR) 50 mg tablet, Take 1 tablet (50 mg total) by mouth daily, Disp: 30 tablet, Rfl: 11 metoprolol tartrate (LOPRESSOR) 50 mg immediate release tablet, Take 2 tablets by mouth twice daily, Disp: 180 tablet, Rfl: 0 oxyCODONE-acetaminophen (PERCOCET) 5-325 mg per tablet, Take 1 tablet by mouth every 4 (four) hoursas needed for pain (Patient not taking: Reported on 05/22/2022), Disp: 30 tablet, Rfl: 0 Jennifer-Silvia 0.8 mg tablet, Take 0.8 mg by mouth daily, Disp: , Rfl: sevelamer (RENVELA) 800 mg tablet, Take 800 mg by mouth 3 (three) times a day with meals, Disp: , Rfl: warfarin (COUMADIN) 2.5 mg tablet, TAKE 1 OR 1/2 (ONE & ONE-HALF) TABLETS BY MOUTH ONCE DAILY as directed (Patient taking differently: Take 2.5 mg by mouth 4 (four) times a week Tue,thur, sat, sun), Disp: 150 tablet, Rfl: 3 warfarin (COUMADIN) 3 mg tablet, Take 3.5 mg by mouth 3 (three) times a week 3.5mg, mon, wed, fri, Disp: , Rfl: LABS AND OTHER DIAGNOSTIC TESTS No results found for: CHOL No results found for: HDL No results found for: LDLCALC No results found for: TRIG No results found for: CHOLHDL Lab Results Component Value Date WBC 8.6 04/03/2022 HGB 10.0 (L) 04/03/2022 HCT 31.2 (L) 04/03/2022 MCV 101.0 (H) 04/03/2022 No lab exists for component: LABALBU PHYSICAL EXAM Vitals BP 132/90 (BP Location: Left arm, Patient Position: Sitting) Pulse 108 Ht 152.4 cm (5') Wt 86.2 kg (190 lb) SpO2 98% BMI 37.11 kg/m?? Physical Examination: General appearance - alert, well [...] lesions noted ASSESSMENT Dilated suspect nonischemic cardiomyopathy Persistent atrial fibrillation End-stage renal disease requiring hemodialysis PLAN/RECOMMENDATIONS Continue current medical regimen she is clinically stable will of course be in chronic atrial fibrillation given the decision last year to decline another cardioversion procedure. Continue follow-up with her plastic welder regarding her dialysis Will suggest to her PCP that thyroid function studies would be indicated Follow-up with me 6 months or p.r.n. Jama Hoskins MD RNET SPECIALIST documented in this encounter Plan of Treatment Not on file documented as of this encounter Procedures Procedure Name Priority Date/Time Associated Diagnosis Comments POCT LIPID PANEL Routine 08/24/2022 10:5 4 AM INTERNET SPECIALIST Lipid screening documented in this encounter Results * POCT lipid panel (08/24/2022 10:54 AM INTERNET SPECIALIST) Cholesterol, POC 171 mg/dL HDL, POC 44 mg/dL Triglycerides, POC 511 mg/dL LDL Cholesterol POC 76 mg/dL Chol/HDL Ratio, POC N/A Non-HDL Cholesterol, POC 127 mg/dL Cholesterol Total, POC 171 mg/dL Capillary blood 08/24/2022 1 0:54 AM INTERNET SPECIALIST us Jama Hoskins MD POINT OF CARE TEST ORDER GILES Final Result documented in this encounter Visit Diagnoses Diagnosis Atrial fibrillation, unspecified type (HCC)- Primary Lipid screening Screening for lipoid disorders documented in this encounter Care Teams Manager Intelligence Relationship Specialty Start Date End Date Brandie Rhoades NP [address] [place] [address] PCP - General Nurse Practitioner 08/09/21 Mookie Dubois MD [address] [place] [address] Referring Physician Nephrology 02/20/22 documented as of this encounter
--- OUTSIDE RECORDS SUMMARY | 2024-07-12 15:09 | XMS_ITS | Encounter Summary ---
Author Organization [facility] Healthcare Address [address] [place] [address] Care Team Providers Care Atm Mechanic Name Role Phone [place], Brandie Quan NP Primary Care Provider [phone] Mookie Dubois MD Unavailable [phone] Abigail Dougherty RN Unavailable [phone] Encounter Details Date Type Department Care Team (Late st Contact Info) Description 02/13/2024 Telephone [facility] Transplant Kidney [address] [facility] [address] [id number] [place], [place] [id number] Gladys Charlton Social History Tobacco Use Types [...] on file 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 No txp eval approval required from either plan. Pt can proceed with Evaluation Testing. documented in this encounter Plan of Treatment Not on file documented as of this encounter Visit Diagnoses Not on filedocumented in this encounter Care Teams Atm Mechanic Relationship Specialty Start Date End Date [place], Brandie Quan NP [address] [place] [address] PCP - General Nurse Practitioner 08/09/21 Mookie Dubois MD [address] [place] [address] Referring Physician Nephrology 02/20/22 Abigail Dougherty, RN [address] [address] Career Development Engineer 02/13/24 documented as of this encounter
--- OUTSIDE RECORDS SUMMARY | 2024-07-12 15:09 | XMS_ITS | Encounter Summary ---
Author Organization [facility] Healthcare Address [address] [place] [address] Care Team Providers Care Grades 1 Through 5 Teacher Name Role Phone [place], Brandie Quan NP Primary Care Provider [phone] Mookie Dubois MD Unavailable [phone] Encounter Details Date Type Department Care Team (Late st Contact Info) Description 01/03/2024 Telephone [facility] Cardiology [address] [facility] [address] [facility] [address] [place] [address] Jama Hoskins MD [address] [facility] [address] [place] [address] Social History Tobacco Use Types [...] on file 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 Gender Identity Not on file Sexual Orientation Not on file documented as of this encounter Ordered Prescriptions Prescription Sig Dispense Quantity Refills Last Filled Start Date End Date warfarin (COUMADIN) 2.5 mg tabletIndications: Persistent atrial fibrillation (HCC) TAKE 1 & 1/2 (ONE & ONE-HALF) TABLETS BY MOUTH ONCE DAILY DIRECTED 44 tablet 01/03/2024 documented in this encounter Miscellaneous Notes * Addendum Note - Carolyne Soto RN - 01/03/2024 10:23 AM CDTAddended by: CAROLYNE SOTO on: 01/03/2024 10:23 AM Modules accepted: Orders * Telephone Encounter - Carolyne Soto RN - 01/03/2024 9:19 AM CDT MJF- I just want to make you aware that this pt is not compliant with her warfarin dosing, checkingINR etc. She is chronically subtherapeutic. I have on previous occasions discussed stroke risk withher. INR today 1.8. Reiterated stroke risk with subtherapeutic INR. Sending as FYI documented in this encounter Plan of Treatment Not on file documented as of this encounter Visit Diagnoses Diagnosis Persistent atrial fibrillation (HCC) Atrial fibrillation documented in this encounter Discontinued Medications Medication Sig Discontinue Reason Start Date End Da te warfarin (COUMADIN) 2.5 mg tabletIndications:Persis tent atrial fibrillation (HCC) TAKE 1 & 1/2 (ONE & ONE-HALF) TABLETS BY MOUTH ONCE DAILY DIRECTED Reorder 12/17/2023 01/03/2024 documented as of this encounter Care Teams Grades 1 Through 5 Teacher Relationship Specialty Start Date End Date Brandie Rhoades NP [address] [place] [address] PCP - General Nurse Practitioner 08/09/21 Mookie Dubois MD [address] [place] [address] Referring Physician Nephrology 02/20/22 documented as of this encounter
--- OUTSIDE RECORDS SUMMARY | 2024-07-12 15:09 | XMS_ITS | Encounter Summary ---
Author Organization [facility] Healthcare Address [address] [place] [address] Care Team Providers Care Otr Tanker Truck Driver Name Role Phone Brandie Rhoades NP Primary Care Provider [phone] Mookie Dubois MD Unavailable [phone] Encounter Details Date Type Department Care Team (Latest Contact Info) Description 01/03/[address] 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
--- OUTSIDE RECORDS SUMMARY | 2024-07-12 15:09 | XMS_ITS | Encounter Summary ---
Author Organization [facility] Healthcare Address [address] [place] [address] Care Team Providers Care Patrol Inspector Name Role Phone Rhoades, Brandie Quan NP Primary Care Provider Mookie Dubois MD Unavailable [phone] Encounter Details Date Type Department Care Team (Late st Contact Info) Description 05/04/2023 Telephone [facility] Cardiology [address] [facility] [address] [facility] [address] [place] [address] Jama Hoskins MD [address] [facility] [address] [place] [address] Social History Tobacco Use Types [...] on file 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 * Telephone Encounter - ZuñigaMaria AJoi - 05/04/2023 9:05 AM CDT Pt returning call for Dominga in regard to lab work. Contact:[phone] documented in this encounter Plan of Treatment Not on file documented as of this encounter Visit Diagnoses Not on filedocumented in this encounter Care Teams Patrol Inspector Relationship Specialty Start Date End Date Rhoades, Brandie Quan NP [address] [place] [address] PCP - General Nurse Practitioner 08/09/21 Mookie Dubois MD [address] [place] [address] Referring Physician Nephrology 02/20/22 documented as of this encounter
--- OUTSIDE RECORDS SUMMARY | 2024-07-12 15:09 | XMS_ITS | Encounter Summary ---
Author Organization [facility] Address [address] [facility] [address] [place] [address] Care Team Providers Care Cafe Site Attendant Name Role Phone Brandie Rhoades NP Primary Care Provider [phone] Mookie Dubois MD Unavailable [phone] Reason for Referral * Cardiology (Routine) - Closed Specialty Diagnoses / Procedures Referred By Christiano dior Referred To Contact Diagnoses Persistent atrial fibrillation (HCC) Procedures ECG 12 lead Lydia Lewis NP [address] [address] Phone: tel: fax: [facility] Referral ID Status Reason Start Date Expiration Date Visits Re quested Visits Authorized [id number] Closed 05/22/2022 06/21/2023 1 1 TOPPER Reason for Visit * Reason Comments Follow-up 3 mo Encounter Details Date Type Department Care Team (Late st Contact Info) Description 05/22/2022 10:30 AM BOWL TOPPER Office Visit [facility] Cardiology [address] [place] [phone] Lydia Lewis NP [address] 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 Gender Identity Not on file Sexual Orientation Not on file documented as of this encounter Last Filed Vital Signs Vital Sign Reading Time Taken Comments Blood Pressure 162/110 05/22/2022 10:49 AM BOWL TOPPER Pulse 77 05/22/2022 10:49 AM BOWL TOPPER Temperature - - Respiratory Rate - - Oxygen Saturation 98% 05/22/2022 10:49 AM BOWL TOPPER Inhaled Oxygen Concentration - - Weight 80.3 kg (177 lb) 05/22/2022 10:49 AM BOWL TOPPER Height 152.4 cm (5') 05/22/2022 10:49 AM BOWL TOPPER Body Mass Index 34.57 05/22/2022 10:49 AM BOWL TOPPER documented in this encounter Ordered Prescriptions Prescription Sig Dispense Quantity Refills Last Filled Start Date End Date losartan (COZAAR) 50 mg tabletIndications:H ypertensive heart disease with chronic systolic congestive heart failure (CMS/HCC) (HCC) Take 1 tablet (50 mg total) by mouth daily 30 tablet 11 05/22/2022 documented in this encounter Progress Notes * Lydia Lewis NP - 05/22/2022 10:30 AM CST Images from the original note were not included. [facility] Cardiology [address] [place] [address] Date of Visit: 05/22/2022 Patient ID: Dory Lynn 1960 Chief Complaint Patient presents with Follow-up 3 mo Dory Lynn is a 61 y.o. female who is an established patient of Dr. Hoskins with a history ofatrial fibrillation and cardiomyopathy returning to the office for 3 month follow-up. History of Present Illness: Dory Lynn is a 61 y.o. female who presents for follow up of atrial fibrillation and cardiomyopathy. This is a patient that was 1st seen in July of 2021 in the hospital at [place] when she presented with dyspnea. She was [...] and spoke to her family and decided she was I had rested in having another cardioversion procedure done. 09/22/[address] Hoskins: She presents to see me in the office today. By exam andEKG she still is in atrial fibrillation with a controlled heart rate of 81. She says she is feelingmuch better and is not experiencing any problems with shortness of breath lower extremity swelling.Had a long discussion with the patient about the fact that she is choosing to remain in chronic atrial fibrillation. She does have an echocardiogram scheduled 1st part of next month to assess her ejection fraction. She still is compliant with the rest of her medications and she is compliant with her life vest. 02/20/2022 office visit with CLOTH STOCK SORTER: After the last visit she came back to the office in October for repeat echocardiogram that showed LVEF estimated 45% and measured 41%, and she was told she could removethe LifeVest. Today she reports that she no longer has shortness of breath and is feeling fine. Sheis following the oral fluid restriction given to her by dialysis. She has had her dialysis weight adjusted and feels better with that. She denies chest pain. She does states that the muscles in her legs hurt when she walks longer distances. She is planning to have peritoneal dialysis catheter inserted but is still getting dialysis through a tunneled chest wall catheter. 05/22/2022 office visit with CLOTH STOCK SORTER: At the last visit I instructed her to stop amiodarone but she forgot these instructions and continued to take it. In mid March she had a peritoneal dialysis catheter inserted and is now doing PD overnight at home. The right chest hemodialysis catheter is going to be removed within the next week. Overall she reports feeling so much better than she was earlier in the year. She has more energy, denies chest pain, shortness of breath, PND, edema. She does have some wheezing which she attributes to allergies. She states her blood pressure is ???out of whack?? and she has been dealing with resistant hypertension ever since the age of 19. 12-lead ECG performed in the office today was independently interpreted by me and showed atrial fibrillation with variable ventricular response, LVH, normal axis, rate 71 bpm. Records that I personally reviewed on the day of this visit include: (the interpretation is outlined in the HPI above) 09/22/[address] Hoskins, 02/20/2022 office note from myself, 04/03/2022 operativenote. I have also reviewed: allergies, current medications, past family history, past medical history, past social history, past surgical history and problem list Medical History: Past Medical History: Diagnosis Date A-fib ([facility]) (HCC) Acute kidney failure, unspecified ([facility]) (HCC) CHF (congestive heart failure) ([facility]) ([facility]) Dental root implant present Dialysis patient ([facility]) ([facility]) Eczema feet, arms which is resolved Hypertension Permanent central venous catheter in place right upper chest Pleural effusion Pneumonia SOB (shortness of breath) Walker as ambulation aid Wears glasses Past Surgical History: Procedure Laterality Date SECTION 1 PORTACATH PLACEMENT right upper chest TONSILLECTOMY as a child Social History Tobacco Use Smoking status: Former Smokeless tobacco: Never Substance and Sexual Activity Drug use: Not Currently Sexual activity: Defer Alcohol Use: Not At Risk Frequency of Alcohol Consumption: Monthly or less Average Number of Drinks: 1 or 2 Frequency of Binge Drinking: Never Family History Problem Relation Age of Onset No Known Problems Mother Heart attack Father Review of Systems Constitutional: Negative for diaphoresis, fever, malaise/fatigue, weight gain and weight loss. HENT: Negative for hearing loss. Eyes: Negative for visual disturbance. Cardiovascular: Negative for chest pain, claudication, dyspnea on exertion, leg swelling, orthopnea, palpitations, paroxysmal nocturnal dyspnea and syncope. Respiratory: Positive for wheezing. Negative for cough, hemoptysis, shortness of breath and snoring. Hematologic/Lymphatic: Does not bruise/bleed easily. Skin: Negative for poor wound healing and rash. Musculoskeletal: Negative for joint pain and myalgias. Gastrointestinal: Negative for heartburn, nausea and vomiting. Genitourinary: Negative for hematuria. Neurological: Negative for dizziness, headaches and light-headedness. Psychiatric/Behavioral: Negative for depression. The patient is not nervous/anxious. Vital Signs: BP (!) 162/110 (BP Location: Left arm, Patient Position: Sitting) Pulse 77 Ht 152.4 cm (5') Wt 80.3 kg (177 lb) SpO2 98% BMI 34.57 kg/m?? Physical Exam Constitutional: General: She is not in acute distress. Appearance: She is well-developed. HENT: Head: Normocephalic and atraumatic. Nose: Comments: Wearing a mask Eyes: General: No scleral icterus. Conjunctiva/sclera: Conjunctivae normal. Neck: Vascular: No JVD. Trachea: No tracheal deviation. Cardiovascular: Rate and Rhythm: Normal rate. Rhythm irregular. Heart sounds: Normal heart sounds. No murmur heard. Pulmonary: Effort: Pulmonary effort is normal. No respiratory distress. Breath sounds: Normal breath sounds. Chest: Comments: Right chest tunneled dialysis cath covered with dry dressing Abdominal: Comments: Peritoneal dialysis catheter covered with dry dressing Musculoskeletal: Right lower leg: No edema. Left lower leg: No edema. Skin: General: Skin is warm and dry. Neurological: Mental Status: She is alert and oriented to person, place, and time. Psychiatric: Mood and Affect: Mood normal. Behavior: Behavior normal. Allergies Allergen Reactions Aftab Inhibitors Angioedema Azithromycin Agitation Grass Pollen Sneezing Current Outpatient Medications: calcitRIOL (ROCALTROL) 0.5 mcg capsule, Take 0.5 mcg by mouth daily Take 2 capsules 3 times a week,Disp: , Rfl: eplerenone (INSPRA) 50 mg tablet, Take 50 mg by mouth daily, Disp: , Rfl: furosemide (LASIX) 80 mg tablet, Take 80 mg by mouth every evening, Disp: , Rfl: levothyroxine (SYNTHROID) 25 mcg tablet, Take 25 mcg by mouth daily, Disp: , Rfl: metoprolol tartrate (LOPRESSOR) 50 mg immediate release tablet, Take 2 tablets (100 mg total) by mouth 2 (two) times a day TAKE 2 TABLETS BY MOUTH BID, Disp: 180 tablet, Rfl: 3 Jennifer-Silvia 0.8 mg tablet, Take 0.8 mg [...] by mouth 4 (four) times a week e,, sun, sun), Disp: 150 tablet, Rfl: 3 warfarin (COUMADIN) 3 mg tablet, Take 3.5 mg by mouth 3 (three) times a week 3.5mg, mon, wed, fri, Disp: , Rfl: ferrous sulfate 325 mg (65 mg of elemental iron) tablet, Take 65 mg of elemental iron by mouth daily with breakfast (Patient not taking: Reported on 05/22/2022), Disp: , Rfl: losartan (COZAAR) 50 mg tablet, Take 1 tablet (50 mg total) by mouth daily, Disp: 30 tablet, Rfl: 11 oxyCODONE-acetaminophen (PERCOCET) 5-325 mg per tablet, Take 1 tablet by mouth every 4 (four) hoursas needed for pain (Patient not taking: Reported on 05/22/2022), Disp: 30 tablet, Rfl: 0 Lab Results Component Value Date POTASSIUM 4.3 04/03/2022 BUNSER 58 (H) 04/03/2022 CREATININE 7.60 (H) 04/03/2022 Lab Results Component Value Date WBC 8.6 04/03/2022 HGB 10.0 (L) 04/03/2022 HCT 31.2 (L) 04/03/2022 MCV 101.0 (H) 04/03/2022 Assessment: Diagnoses and all orders for this visit: Hypertensive heart disease with chronic systolic congestive heart failure (CMS/HCC) (HCC) (Primary) - losartan (COZAAR) 50 mg tablet; Take 1 tablet (50 mg total) by mouth daily ESRD (end stage renal disease) on dialysis (CMS/HCC) (HCC) Persistent atrial fibrillation (HCC) - ECG 12 lead; Future Chronic anticoagulation Dilated cardiomyopathy (CMS/HCC) (HCC) Plan/Recommendations: Blood pressure is uncontrolled. Increase losartan to 50 mg daily. Continue eplerenone, furosemide and metoprolol. Return to the office for blood pressure recheck in 1 month. Continue home peritoneal dialysis and follow-up with roofing sales representative. Atrial fibrillation is asymptomatic. Currently her heart rate is controlled with the metoprolol andamiodarone. To avoid possibility of side effects with long- term amiodarone use, I recommend stopping the amiodarone now. Reassess heart rate with ECG at the visit for blood pressure check in 1 month.Continue metoprolol the same for now. She is on warfarin for stroke risk reduction. Continue follow-up with the anticoagulation Clinic. Cardiomyopathy improved when her echo was read checked in October. Today she appears compensated. Continue losartan and metoprolol. Return to the office for routine follow-up with Dr. Hoskins in 3 months. Call sooner with questions or concerns. 05/22/2022 SEN De Souza- Nurse Practitioner with [facility] Cardiology This note is dictated and transcribed using [employer] Software. Community Health Navigator variancesmay occur. Despite proofreading, typographical errors may occur. TOPPER TOPPER documented in this encounter Miscellaneous Notes * Addendum Note - Chad Negrete MA - 05/22/2022 10:30 AM CSTAddended by: CHAD NEGRETE on: 05/22/2022 01:40 PM Modules accepted: Orders TOPPER documented in this encounter Plan of Treatment Not on file documented as of this encounter Procedures Procedure Name Priority Date/Time Associated Diagnosis Comments ECG 12-LEAD Routine 05/22/2022 Persistent atrial fibrillation (HCC) documented in this encounter Results * ECG 12 lead (05/22/2022) us Lydia Lewis NP ECG ORDERABLES Final Res ult documented in this encounter Visit Diagnoses Diagnosis Hypertensive heart disease with chronic systolic congestive heart failure (CMS/HCC) (HCC)- Primary ESRD (end stage renal disease) on dialysis (HCC) End stage renal disease Persistent atrial fibrillation (HCC) Atrial fibrillation Chronic anticoagulation Encounter for long-term (current) use of anticoagulants Dilated cardiomyopathy (CMS/HCC) (HCC) Other primary cardiomyopathies documented in this encounter Discontinued Medications Medication Sig Discontinue Reason Start Date End Da te losartan (COZAAR) 25 mg tabletIndications:Dilated cardiomyopathy (CMS/HCC) (HCC) Take 1 tablet (25 mg total) by mouth daily Dose adjustment 02/20/2022 05/22/2022 amiodarone (PACERONE) 200 mg tabletIndications:Persiste nt atrial fibrillation (HCC) Take 1 tablet by mouth once daily Therapy completed 03/30/2022 05/22/2022 documented as of this encounter Historical Medications * This list may reflect changes made after this encounter. calcitRIOL (ROCALTROL) 0.5 mcg capsule Take 0.25 mcg by mouth daily ONE TAB THREE DAYS A WEEK AND 2 TABS FOUR DAYS A WEEK levothyroxine (SYNTHROID) 25 mcg tablet Take 1 tablet (25 mcg total) by mouth daily 04/22/2022 added in this encounter Care Teams Cafe Site Attendant Relationship Specialty Start Date End Date Brandie Rhoades NP [address] [place] [address] PCP - General Nurse Practitioner 08/09/21 Mookie Dubois MD [address] [place] [address] Referring Physician Nephrology 02/20/22 documented as of this encounter
--- OUTSIDE RECORDS SUMMARY | 2024-07-12 15:09 | XMS_ITS | Encounter Summary ---
Author Organization [facility] Address [address] [facility] [address] [place] [address] Care Team Providers Care Manager Mass Name Role Phone Brandie Rhoades NP Primary Care Provider [phone] Mookie Dubois MD Unavailable [phone] Encounter Details Date Type Department Care Team (Late st Contact Info) Description 02/20/2022 Telephone [facility] Cardiology [address] [facility] [address] [place] [address] Lydia Lewis NP [address] [place] [address] Social History Tobacco Use Types Packs/Day Years Used Date Smoking Tobacco: Former Smokeless Tobacco: Never Comments Unknown Sex and Gender Information Value Date Recorded Sex Assigned at Not on file 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 * Telephone Encounter - Lydia Lewis NP - 02/23/2022 9:20 AM CDT Thank you! Will you update her med list in [facility] to reflect this? * Telephone Encounter - Ger Gurrola RN - 02/22/2022 10:48 AM CDT Spoke with Dr. Dubois's office and he has stopped pt's bumex and increased furosemide to 80mg BID on non dialysis days. Will forward to CT as FYI. * Telephone Encounter - Ger Gurrola RN - 02/21/2022 4:02 PM CDT LM on VM at Dr. Dubois's office requesting update on message from yesterday. * Telephone Encounter - Carolyne Trujillo RN - 02/20/2022 1:[address]T Spoke with Dr Dubois office. As requested, CT note from today and this tele note faxed to their office for review. * Telephone Encounter - Ger Gurrola RN - 02/20/2022 12:[address] she requested I contact Dr. Dubois's office to discuss pt and her meds. Pt was seen in office today and she has been taking Bumex daily along with Furosemide on non dialysis days. She asked that we see if Dr. Dubois is aware of this and if not what would he prefer. Called and LM on Dr. Dubois's office VM requesting a callback to discuss. Also faxing this telephone note and today's OV note as well. documented in this encounter Plan of Treatment Not on file documented as of this encounter Visit Diagnoses Not on filedocumented in this encounter Discontinued Medications Medication Sig Discontinue Reason Start Date End Da te bumetanide (BUMEX) 2 mg tablet Take 1 tablet (2 mg total) by mouth daily 08/15/2021 02/23/2022 documented as of this encounter Care Teams Manager Mass Relationship Specialty Start Date End Date [place], Brandie Quan NP [address] [place] [address] PCP - General Nurse Practitioner 08/09/21 Mookie Dubois MD [address] [place] [address] Referring Physician Nephrology 02/20/22 documented as of this encounter
--- OUTSIDE RECORDS SUMMARY | 2024-07-12 15:09 | XMS_ITS | Encounter Summary ---
Author Organization [facility] Healthcare Address [address] [place] [address] Care Team Providers Care Supervisor Sign Shop Name Role Phone Rhoades, Brandie Quan NP Primary Care Provider + [phone] Mookie Dubois MD Unavailable [phone] Reason for Visit * Auth/Cert Specialty Diagnoses / Procedures Referred By Christiano dior Referred To Contact Diagnoses END STAGE RENAL DISEASE Procedures DC LAP INSERTION TUNNELED INTRAPERITONEAL CATHETER DC LAP OMENTOPEXY ADD-ON LAPAROSCOPIC INSERTION PERITONEAL DIALYSIS CATHETER, LYSIS OF ADHESIONS, OMENTOPEXY, POSSIBLE OPEN Referral ID Status Reason Start Date Expiration Date Visits Re quested Visits Authorized [id number] 1 1 Encounter Details Date Type Department Care Team (Late st Contact Info) Description 04/03/2022 7:29 AM CDT Anesthesia Event [address] [address] Sheridan Leroy MD [address] [place] [id number] Cruzito Cerda DO [address] [place] [address] [facility] [place] [address] Anesthesia Record Procedure Summary Procedure Name Responsible Anesthesiologist Anesthesia Start Time Anesthesia Stop Time LAPAROSCOPIC INSERTION PERITONEAL DIALYSIS CATHETER, LYSIS OF ADHESIONS, OMENTOPEXY, POSSIBLE OPEN (Abdomen) Sheridan Leroy MD 04/03/22 0729 04/03/22 0838 Events Date Time Event Comment 04/03/2022 0629 0729 An Start 0729 In Room 0729 An Start Data 0734 An Induction The patient was reevaluated immediately before moderate or deep sedation use and before anesthesia induction. 0737 An Intubation 0741 Anesthesia Ready 0752 Proc Start 0824 Proc Fin 0831 An Extubation 0833 Start Supplemental O2 6 LPM NC applied 0834 an stop data 0834 Out of Room 0837 Handoff to RN I completed my handoff to the receiving nurse during which we: 1. Patient identified 2. Responsible provider identified 3. Pertinent medical history reviewed 4. Procedure type and surgical course discussed 5. Intraoperative anesthetic management and any significant issues discussed 6. Expectations and concerns for postop period discussed 7. Questions solicited from receiving nurse 8. Patient disposition at the time of handoff: PACU 0838 An Stop 1749 Release from care Meds Name Total fentaNYL 50 mcg/mL PF 75 mcg lidocaine (cardiac) syringe 2 % 50 mg propofol 180 mg rocuronium 30 mg ondansetron PF 4 mg dexamethasone 4 mg/mL 4 mg vancomycin 1250 mg/250 mL in sodium chlo ride 0.9% (premix) 1,250 mg 1,250 mg sugammadex 200 mg sodium chloride 0.9% infusion 600 mL * Agents Name O2% N2O O2 N2O Air Sevoflurane Inspired Sevoflurane * Blood No blood administrations on file. Lines, Drains, and Airways Type Details Placement Removal Peripheral IV Placement Date: 04/03/22; Placement Time: 0625; Catheter Size: 20 G; Orientation: Left; Location: Antecubital; Site Prep: Chlorhexidine; Insertion Attempts: 1; Patient Tolerance: Tolerated well; Removal Date: 04/03/22; Removal Time: 1026 04/03/22 0625 by Latisha Chino RN 04/03/22 1026 by Wally Nice RN ETT Placement Date: 04/03/22; Placement Time: 075 (created via procedure documentation); Mask Ventilation: 2; Technique: Direct laryngoscopy; Type: ETT - single; Single Lumen Tube Size: 7 mm; Cuffed: Yes; Laryngoscope: Chandni; Blade Size: 3; Location: Oral; Grade View: Grade I; Insertion Attempts: 1; Placement Verification: Auscultation, Capnometry; Airway Comment: Atraumatic placement, no change in dentition. 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 Gender Identity Not on file Sexual Orientation Not on file documented as of this encounter OR Notes * Anesthesia Postprocedure Evaluation - Sheridan Leroy MD - 04/03/2022 5:49 PM CDT Patient: Dory Lynn Procedure Summary Date: 04/03/22 Room / Location: [facility] OPERATING ROOM / [facility]PER[facility] Anesthesia Start: 728 Anesthesia Stop: 837 Procedure: LAPAROSCOPIC INSERTION PERITONEAL DIALYSIS CATHETER, LYSIS OF ADHESIONS, OMENTOPEXY, POSSIBLE OPEN (Abdomen) Diagnosis: (END STAGE RENAL DISEASE) Surgeons: Sulaiman Hi MD Responsible Provider: Sheridan Leroy MD Anesthesia Type: general ASA Status: 4 Anesthesia Type: general Last vitals BP 138/87 (BP Location: Right arm) Pulse 68 Temp 36.4 ??C (97.5 ??F) (Temporal) Resp 18 SpO2 100% Anesthesia Post Evaluation Patient location during evaluation: PACU Patient participation: complete - patient participated Level of consciousness: fully awake Pain management: adequate Airway patency: adequate Evidence of recall: no Cardiovascular status: acceptable Respiratory status: acceptable Hydration status: acceptable Pt is: normothermic Nausea/Vomiting status: none No notable events documented. * Anesthesia Procedure Notes - Makenna Ceballos CRNA - 04/03/2022 7:50 AM CDTAssociated Order(s): Airway Airway Patient location: OR Urgency: elective Indications for airway management: anesthesia Difficult airway: no Staff: Supervising provider: Sheridan Leroy MD Placed by: SUPERVISOR PURIFICATION: Makenna Ceballos CRNA Emergent airway documentation: Risks and benefits discussed: yes Consent obtained: yes Consent given by: patient Airway prep: Preoxygenated: yes Patient position: sniffing Mask difficulty assessment: 2 - vent by mask + OA or adjuvant Spontaneous ventilation during airway: absent Sedation level during airway: deep Final airway details: Final airway type: endotracheal airway Tube type: ETT ETT size: 7.0 mm Cuffed: yes Technique used for successful ETT placement: direct laryngoscopy Devices/Methods used in placement: intubating stylet and cricoid pressure (for visualization) Insertion site: oral Blade type: Chandni Blade size: 3 Cormack-Lehane (direct): grade I - full view of glottis Cuff volume: 8 mL Cuff inflated with: air ETT to teeth: 21 cm Placement verified by: auscultation and CO2 detection Airway secured with: other (pink tape) Number of attempts: 1 Additional comments: Atraumatic placement, no change in dentition. * Anesthesia Preprocedure Evaluation - Sheridan Leroy MD - 04/03/2022 6:26 AM CDT Images from the original note were not included. Anesthesia Evaluation Dory Lynn is a 61 y.o. female Procedure(s): LAPAROSCOPIC INSERTION PERITONEAL DIALYSIS CATHETER, LYSIS OF ADHESIONS, OMENTOPEXY, POSSIBLE OPEN * No Diagnosis Codes entered * HISTORY Past Medical History Cardiovascular + Hypertension + CHF + Atrial fibrillation/flutter - + Other arrhythmia Renal / + Renal disease + Dialysis Patient Active Problem List Diagnosis ??? Atrial fibrillation (CMS/HCC) ([facility]) Past Medical History: Diagnosis Date ??? A-fib (CMS/HCC) (HCC) ??? Acute kidney failure, unspecified (CMS/HCC) (HCC) ??? CHF (congestive heart failure) (CMS/HCC) ([facility]) ??? Dental root implant present ??? Dialysis patient (CMS/HCC) (HCC) ??? Eczema feet, arms which is resolved ??? Hypertension ??? Permanent central venous catheter in place right upper chest ??? Pleural effusion ??? Pneumonia ??? SOB (shortness of breath) ??? Walker as ambulation aid ??? Wears glasses Past Surgical History: Procedure Laterality Date ??? SECTION 1 ??? PORTACATH PLACEMENT right upper chest ??? TONSILLECTOMY as a child OB History No obstetric history on file. Allergies Allergen Reactions ??? Aftab Inhibitors Angioedema ??? Azithromycin Agitation ??? Grass Pollen Sneezing Med List Status: Nurse Complete Set By: Darwin Frias RN at 03/23/2022 1:26 PM Taking? Last Dose Start Date End Date Provider amiodarone (PACERONE) 200 mg tablet 04/03/2022 03/30/22 -- Jama Hoskins MD Take 1 tablet by mouth once daily eplerenone (INSPRA) 50 mg tablet 04/02/2022 01/16/22 -- ProviderPeggy MD ferrous sulfate 325 mg (65 mg of elemental iron) tablet Past Week -- -- Peggy Beaver MD furosemide (LASIX) 80 mg tablet 04/02/2022 02/08/22 -- Peggy Beaver MD losartan (COZAAR) 25 mg tablet 04/02/2022 02/20/22 -- Lydia Lewis NP Take 1 tablet (25 mg total) by mouth daily metoprolol tartrate (LOPRESSOR) 50 mg immediate release tablet 04/03/2022 08/15/21 -- Jama Hoskins MD Take 2 tablets (100 mg total) by mouth 2 (two) times a day TAKE 2 TABLETS BY MOUTH BID Jennifer-Silvia 0.8 mg tablet Past Week 11/18/21 -- ProviderPeggy MD sevelamer (RENVELA) 800 mg tablet 04/02/2022 01/02/22 -- ProviderPeggy MD warfarin (COUMADIN) 2.5 mg tablet 03/29/2022 02/20/22 -- Lydia Lewis, RECEIVING WEIGHER TAKE 1 OR 1/2 (ONE & ONE-HALF) TABLETS BY MOUTH ONCE DAILY as directed Patient taking differently: Take 2.5 mg by mouth 4 (four) times a week franklin Cosby sat, sun warfarin (COUMADIN) 3 mg tablet 03/29/2022 -- -- Provider, MD Peggy Current Facility-Administered Medications: ??? acetaminophen (TYLENOL) tablet 975 mg, 975 mg, oral, Once ??? Carrier Fluids for Secondary Infusion - 0.9% Sodium Chloride, 30 mL, intravenous, PRN ??? famotidine (PEPCID) tablet 20 mg, 20 mg, oral, Once ??? lidocaine (XYLOCAINE) 10 mg/mL (1 %) injection 2-10 mg, 0.2-1 mL, other, Once PRN ??? sodium chloride 0.9% flush 0.5-20 mL, 0.5-20 mL, intra-catheter, PRN ??? sodium chloride 0.9% infusion, 30 mL/hr, intravenous, Continuous ??? vancomycin 1250 mg/250 mL in sodium chloride 0.9% (premix) 1,250 mg, 15 mg/kg, intravenous, Once Social History Tobacco Use Smoking Status Former Smokeless Tobacco Never Alcohol Use: Not At Risk ??? Frequency of Alcohol Consumption: Monthly or less ??? Average Number of Drinks: 1 or 2 ??? Frequency of Binge Drinking: Never Substance and Sexual Activity Drug Use Not Currently Family History Problem Relation Age of Onset ??? No Known Problems Mother ??? Heart attack Father There were no vitals filed for this visit. PT: No results found for requested labs within last 720 hours. INR: No results found for requested labs within last 720 hours. APTT: No results found for requested labs within last 720 hours. Hgb A1C: No results found for requested labs within last 720 hours. CBC RBC: No results found for requested labs within last 720 hours. RDW: No results found for requested labs within last 720 hours. MCHC: No results found for requested labs within last 720 hours. MCH: No results found for requested labs within last 720 hours. MCV: No results found for requested labs within last 720 hours. Hct: No results found for requested labs within last 720 hours. Hgb: No results found for requested labs within last 720 hours. WBC: No results found for requested labs within last 720 hours. MPV: No results found for requested labs within last 720 hours. Platelets: No results found for requested labs within last 720 hours. RDW CV: No results found for requested labs within last 720 hours. RDW Sd: No results found for requested labs within last 720 hours. BMP Glucose: No results found for requested labs within last 720 hours. Calcium: No results found for requested labs within last 720 hours. Sodium: No results found for requested labs within last 720 hours. Potassium: No results found for requested labs within last 720 hours. CO2: No results found for requested labs within last 720 hours. Chloride: No results found for requested labs within last 720 hours. BUN: No results found for requested labs within last 720 hours. Creatinine: No results found for requested labs within last 720 hours. STOP-Bang Total Score: 2 DOS Physical Exam Medical history, medications, and allergies reviewed. Attestation: This PAT evaluation 04/03/2022. Airway Exam: Mallampati: II Cervical ROM: FROM Cardiovascular Exam: Rate: regular Rhythm: regular Pulmonary Exam: LCTA, bilat EENT Exam: trachea midline Dental Exam: Appears intact Current state: Patient's current state is cooperative and interactive. Anesthesia Plan ASA 4 My patient is approved for the Anesthesia Controlled Medication protocol when under care of a SUPERVISOR PURIFICATION Planned anesthesia: General Team communication plan: oral ET tube Induction: Induction: intravenous. Postoperative Plan: Postoperative administration opioids intended. Informed Consent: Discussed plan with SUPERVISOR PURIFICATION. Anesthesia plan and risks discussed with patient. Consent and Attending signature: I and/or my designee have discussed the anesthesia plan, benefits, possible alternatives, parental presence at time of induction (if indicated), and clinically relevant risks that may include dental injury, unintentional awareness, and/or other complications. The patient and/or parent/legal guardian understand, and agree to proceed. All questions answered. documented in this encounter Plan of Treatment Not on file documented as of this encounter Procedures Procedure Name Priority Date/Time Associated Diagnosis Comments DC AN PROCEDURE PLACEHOLDER Routine 04/03/2022 7:50 AM CDT DC AN ELECTIVE ENDOTRACHEAL AIRWAY Routine 04/03/2022 7:50 AM CDT documented in this encounter Results * DC AN ELECTIVE ENDOTRACHEAL AIRWAY, DC AN PROCEDURE PLACEHOLDER (04/03/2022 7:50 AM CDT) Narrative Makenna Ceballos CRNA - 04/03/2022 7:50 AM CDT Makenna Ceballos CRNA ? 04/03/2022 ??7:51 AM Airway Patient location: OR Urgency: elective Indications for airway management: anesthesia Difficult airway: no Staff: Supervising provider: Sheridan Leroy MD Placed by: SUPERVISOR PURIFICATION: Makenna Ceballos CRNA Emergent airway documentation: Risks and benefits discussed: yes Consent obtained: yes Consent given by: patient Airway prep: Preoxygenated: yes Patient position: sniffing Mask difficulty assessment: 2 - vent by mask + OA or adjuvant Spontaneous ventilation during airway: absent Sedation level during airway: deep Final airway details: Final airway type: endotracheal airway Tube type: ETT ETT size: 7.0 mm Cuffed: yes Technique used for successful ETT placement: direct laryngoscopy Devices/Methods used in placement: intubating stylet and cricoid pressure (for visualization) Insertion site: oral Blade type: Chandni Blade size: 3 Cormack-Lehane (direct): grade I - full view of glottis Cuff volume: 8 mL Cuff inflated with: air ETT to teeth: 21 cm Placement verified by: auscultation and CO2 detection Airway secured with: other (pink tape) Number of attempts: 1 Additional comments: Atraumatic placement, no change in dentition. Sheridan Leroy MD ANESTHESIA ORDERABLES Fin al Result documented in this encounter Visit Diagnoses Not on filedocumented in this encounter Administered Medications Inactive Administered Medications - up to 3 most recent administrations Medication Order MAR Action Action Date Dose Rate Site dexAMETHasone (DECADRON) 4 mg/mL injection intravenous, Administer over 2 Minutes, As needed, Starting on Sun04/03/22 at 0741, Anesthesia Intra-op Given 04/03/2022 7:41 AM CDT 4 mg fentaNYL (SUBLIMAZE) preservative free injection intravenous, As needed, Starting on Sun04/03/22 at 0729, Anesthesia Intra-op Given 04/03/2022 8:15 AM CDT 25 mcg Given 04/03/2022 7:29 AM CDT 50 mcg lidocaine (cardiac) (XYLOCAINE) preservative free injection intravenous, As needed, Starting on Sun04/03/22 at 0734, Anesthesia Intra-op, Indications: Ventricular ArrhythmiasIndications:Ventricular Arrhythmias Given 04/03/2022 7: 34 AM CDT 50 mg ondansetron (ZOFRAN) injection intravenous, Administer over 2 Minutes, As needed, Starting on Sun04/03/22 at 0812, Anesthesia Intra-op Given 04/03/2022 8:12 AM CDT 4 mg propofoL (DIPRIVAN) 10 mg/mL IV intravenous, As needed, Starting on Sun04/03/22 at 0734, Anesthesia Intra-op Given 04/03/2022 8:18 AM CDT 30 mg Given 04/03/2022 7:34 AM CDT 150 mg rocuronium (ZEMURON) injection intravenous, As needed, Starting on Sun04/03/22 at 0734, Anesthesia Intra-op Given 04/03/2022 7:34 AM CDT 30 mg sodium chloride 0.9% infusion 30 mL/hr, intravenous, Continuous, Starting on Sun04/03/22 at 0630, Pre-Op New Bag 04/03/2022 7:29 AM CDT sugammadex (BRIDION) 100 mg/mL intravenous solution intravenous, As needed, Starting on Sun04/03/22 at 0812, Anesthesia Intra-op Given 04/03/2022 8:12 AM CDT 200 mg vancomycin 1250 mg/250 mL in sodium chloride 0.9% (premix) 1,250 mg 1,250 mg (rounded from 1,156.5 mg = 15 mg/kg ? 77.1 kg), intravenous, Administer over 60 Minutes, Once, On Sun04/03/22 at 0630, For 1 dose, Pre-Op, Indications: Prophylaxis, SurgicalIndications:Prophylaxis, Surgical Given 04/03/2022 7:41 AM CDT 1,250 mg New Bag 04/03/2022 6:53 AM CDT 1,250 mg 250 mL/hr documented in this encounter Care Teams Supervisor Sign Shop Relationship Specialty Start Date End Date Brandie Rhoades NP [address] [place], [place] [id number] PCP - General Nurse Practitioner 08/09/21 Mookie Dubois MD [address] [place] [address] Referring Physician Nephrology 02/20/22 documented as of this encounter
--- OUTSIDE RECORDS SUMMARY | 2024-07-12 15:09 | XMS_ITS | Encounter Summary ---
Author Organization [facility] Address [address] [place] [address] Care Team Providers Care Precision Agronomist Name Role Phone Rhoades, Brandie Quan NP Primary Care Provider [phone] Mookie Dubois MD Unavailable [phone] Reason for Visit * Auth/Cert Specialty Diagnoses / Procedures Referred By Christiano dior Referred To Contact Diagnoses END STAGE RENAL DISEASE Procedures NJ LAP INSERTION TUNNELED INTRAPERITONEAL CATHETER NJ LAP OMENTOPEXY ADD-ON LAPAROSCOPIC INSERTION PERITONEAL DIALYSIS CATHETER, LYSIS OF ADHESIONS, OMENTOPEXY, POSSIBLE OPEN Referral ID Status Reason Start Date Expiration Date Visits Re quested Visits Authorized [id number] 1 1 Encounter Details Date Type Department Care Team (Late st Contact Info) Description 04/03/2022 7:30 AM CDT - 04/03/2022 8:40 AM CDT Surgery [facility] OR [address] [place] [id number] Sulaiman Hi MD [address] [place] [id number] LAPAROSCOPIC INSERTION PERITONEAL DIALYSIS CATHETER, LYSIS OF ADHESIONS, OMENTOPEXY, POSSIBLE OPEN Surgery Details Date/Time Status Location OR Service Patient Class Case Cl ass Case Type Trauma Case? 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 No heavy lifting today. No heavy meals today. * Attachments The following attachments cannot be sent through Care Everywhere. * Continuous Ambulatory Peritoneal Dialysis (Discharge Care) (Slovenian) documented in this encounter Medications at Time of Discharge eplerenone (INSPRA) 50 mg tablet Take 0.5 tablets (25 mg total) by mouth daily 01/16/2022 furosemide (LASIX) 80 mg tablet Take 1 tablet (80 mg total) by mouth every evening 02/08/2022 Adina-Silvia 0.8 mg tablet Take 0.8 mg by mouth daily 11/18/2021 sevelamer (RENVELA) 800 mg tablet Take 1 tablet (800 mg total) by mouth 3 (three) times a day with meals 01/02/2022 warfarin (COUMADIN) 3 mg tablet Take 3.5 mg by mouth 3 (three) times a week 3.5mg, mon, wed, fri amiodarone (PACERONE) 200 mg tabletIndications:Pe rsistent atrial fibrillation (HCC) Take 1 tablet by mouth once daily 90 tablet 03/30/2022 2 ferrous sulfate 325 mg (65 mg of elemental iron) tablet Take 65 mg of elemental iron by mouth daily with breakfast 3 losartan (COZAAR) 25 mg tabletIndications:Di lated cardiomyopathy (CMS/HCC) (HCC) Take 1 tablet (25 mg total) by mouth daily 90 tablet 3 02/20/2022 2 metoprolol tartrate (LOPRESSOR) 50 mg immediate release tablet Take 2 tablets (100 mg total) by mouth 2 (two) times a day TAKE 2 TABLETS BY MOUTH BID 180 tablet 3 08/15/2021 3 oxyCODONE-acetaminop hen (PERCOCET) 5-325 mg per tabletIndications:Pa in Take 1 tablet by mouth every 4 (four) hours as needed for pain 30 tablet 04/03/2022 3 warfarin (COUMADIN) 2.5 mg tabletIndications:Pe rsistent atrial fibrillation (HCC) TAKE 1 OR 1/2 (ONE & ONE-HALF) TABLETS BY MOUTH ONCE DAILY as directed 150 tablet 3 02/20/2022 3 documented as of this encounter Ordered Prescriptions Prescription Sig Dispense Quantity Refills Last Filled Start Date End Date oxyCODONE-acetamin ophen (PERCOCET) 5-325 mg per tabletIndications: Pain Take 1 tablet by mouth every 4 (four) hours as needed for pain 30 tablet 04/03/2022 05/01/2023 documented in this encounter Discharge Disposition Disposition Code Departure Means Destination Discharge to home or self care documented in this encounter H&P Notes * Sulaiman Hi MD - 04/03/2022 7:21 AM CDT Dory Lynn 61 y.o. female Date of Service 04/03/2022 Brandie Rhoades NP CC: renal failure HPI: 61 y.o. female with renal failure. Getting dialysis through right IJ tunneled line. Here for PD cath placement. PMH: Past Medical History: Diagnosis Date A-fib ([facility] ([facility]) Acute kidney failure, unspecified ([facility]) (HCC) CHF (congestive heart failure) ([facility] ([facility]) Dental root implant present Dialysis patient ([facility]) ([facility]) Eczema feet, arms which is resolved Hypertension Permanent central venous catheter in place right upper chest Pleural effusion Pneumonia SOB (shortness of breath) Walker as ambulation aid Wears glasses PSH: Past Surgical History: Procedure Laterality Date SECTION 1 PORTACATH PLACEMENT right upper chest TONSILLECTOMY as a child Allergies: Allergies Allergen Reactions Aftba Inhibitors Angioedema Azithromycin Agitation Grass Pollen Sneezing Medications: Current Facility-Administered Medications Medication Dose Route Frequency Provider Last Rate Last Admin Carrier Fluids for Secondary Infusion - 0.9% Sodium Chloride 30 mL intravenous PRN Cruzito Cerda, DO 30 mL at 04/03/22 0628 lidocaine (XYLOCAINE) 10 mg/mL (1 %) injection 2-10 mg 0.2-1 mL other Once PRN Cruzito Cerda LJessie, DO sodium chloride 0.9% flush 0.5-20 mL 0.5-20 mL intra-catheter PRN Cruzito Cerda, DO sodium chloride 0.9% infusion 30 mL/hr intravenous Continuous Cruzito Cerda, DO vancomycin 1250 mg/250 mL in sodium chloride 0.9% (premix) 1,250 mg 15 mg/kg intravenous Once Sulaiman Hi MD 250 mL/hr at 04/03/22 0653 1,250 mg at 04/03/22 0653 Family Hx: Family History Problem Relation Age of Onset No Known Problems Mother Heart attack Father Social Hx: Social History Tobacco Use Smoking status: Former Smokeless tobacco: Never Substance and Sexual Activity Drug use: Not Currently Sexual activity: Defer Alcohol Use: Not At Risk Frequency of Alcohol Consumption: Monthly or less Average Number of Drinks: 1 or 2 Frequency of Binge Drinking: Never Review of Symptoms: 12 point ROS is negative aside from that mentioned in HPI and PMH/PSH PHYSICAL EXAM: Blood pressure (!) 163/103, pulse 78, temperature 36.6 ??C (97.8 ??F), temperature source Temporal,resp. rate 18, SpO2 100 %. There is no height or weight on file to calculate BMI. GEN: Well developed in no acute distress SKIN: No obvious lesions, masses or rash; no jaundice HEENT: Neck supple, no masses ABDOMEN: no rashes, lesions or hernias EXT: No clubbing, cyanosis; edema NEURO: No focal deficit, sensation intact LABS: I reviewed the recent laboratory results Recent Labs Lab Units 04/03/22 0624 WBC K/cumm 8.6 HEMOGLOBIN g/dL 10.0* HEMATOCRIT % 31.2* IMAGING: I reviewed the digital images of the patient's imaging studies IMPRESSION: Renal failure PLAN: Laparoscopic placement of tunneled peritoneal dialysis catheter. Risks, benefits and alternatives discussed. She agrees the surgery. Sulaiman Hi MD 04/03/2022 7:21 AM documented in this encounter Nursing Notes * Wally Nice RN - 04/03/2022 10:47 AM CDT was over talking with patient and was okay for patient to be discharge without voiding ,due to been a dialysis patient. No s/s of discomfrot or pain noted, documented in this encounter Miscellaneous Notes * Op Note - Sulaiman Hi MD - 04/03/2022 7:30 AM CDT OP NOTE Dory Lynn 04/03/2022 Pre-operative Diagnosis: Renal failure Post-operative Diagnosis: Same Procedure: Laparoscopic placement tunneled peritoneal dialysis catheter Anesthesia: General Surgeon: Sulaiman Hi MD Online Affiliate Marketing Manager: [email or web address] Notcher: Veronica Oliveros RN Scrub: Carmelo Perez ST; Nga Akhtar RN Orientee Negative Notcher: Rosetta Harvey RN; Alexandria Turcios RN Anesthesia: General Anesthesiologist: Sheridan Leroy MD APPEALS BOARD REFEREE: Makenna Ceballos CRNA Specimen: None Drains: None EBL: 1 mL Complications: None Findings: Well-functioning catheter placed in the pelvis Operative Details: Please refer to the history and physical for the indications of the procedure. SCDs were placed. Preoperative IV antibiotics were given. Patient brought to the operating room. Placed under general anesthesia. Prepped and draped in sterile fashion. Time-out was performed. Local anesthetic was injected the trocar sites. Incision is madein the umbilicus. A Veress needle is placed into the abdominal cavity and confirmed water drop displacement. The abdomen was insufflated low-flow CO2 gas until a pressure of 15 mmHg reach. The Veressneedle was removed. A dilating 5 mm operative trocars placed. The abdominal cavity was surveyed. A left upper quadrant 5 mm trocars placed. Incisions made on the left side of the abdomen with rectus abdominus muscle. An 8 mm trocar was placed at an oblique angle through the left rectus abdominus mus nahun into the pelvis. A double cuffed, pigtailed peritoneal dialysis catheter was chosen for implantation. It is placed through the 8 mm trocar in the pelvis. The distal cuff is in the rectus sheath. A counter incision was made on the left flank. The peritoneal dialysis catheter is tunneled through this site. The proximal cuff is in the subcutaneous adipose tissue. The adapters were placed on the peritoneal dialysis catheter. The peritoneal dialysis catheter worked well. It flushes and drains heparinized saline easily. The omentum was sitting in the pelvis. The omentum is sutured to the falciform ligament with a 2-0 silk suture using a Ranfac suture Passer. 5 mm trocars are removed under direct visualization. Insufflation was removed from the abdominal cavity. Skin closed with 4-0 Monocrylin a subcuticular fashion. Dermabond and a sterile dressing was applied. Patient tolerated procedure well. At the end of procedure, there was a correct sponge, needle and instrument count reported. The patient is going to the recovery room in stable condition. Sulaiman Hi MD :35 AM * Pre-Procedure Instructions - Darwin Frias RN - 03/23/2022 2:10 PM CDT Images from the original note were not included. [address] [place], [place] [address] Surgery Reminder Checklist: Please arrive to [facility]'s Outpatient Surgery Department for scheduled surgeryon Sunday04/03/2022 Arrive by 0530 am. If the surgeon's office tells you to arrive at a different time, please follow their instructions. Please use Entrance A also known as [facility], then follow the signs to the right for Outpatient Surgery. DO NOT eat or drink after midnight (this includes gum, mints, hard candy, and chewable antacids). ONLY TAKE THE FOLLOWING MEDICATIONS MORNING OF SURGERY:AMIODARONE, METOPROLOL. (you may take your medications with enough water to safely swallow them) DO NOT TAKE INSPRA, FERROUS SULFATE, LASIX, LOSARTAN, RENVELA MORNING OF SURGERY. MEDICATION HOLD INSTRUCTIONS:WARFARIN LAST DOSE- 03/28/2022. NO ASPIRIN CONTAINING PRODUCTS, IBUPROFEN, ALEVE, MULTIVITAMINS, HERBAL SUPPLEMENTS, FISH OIL, or VITAMIN E, ADINA-SILVIA (LAST DOSE: 03/26/2022) May take TYLENOL (ACETAMINOPHEN) as needed for pain. DO NOT drink alcohol, smoke cigarettes/vapes/e-cigarettes during the 12 hours prior to your surgery. DO NOT use marijuana or take illicit/illegal drugs of any kind at least 24 hours prior to surgery. [place] your teeth morning of procedure. Use mouth wash if available. Do not swallow any liquids whencleansing your mouth. Shower with Antibacterial soap the evening before your surgery and morning of. Antibacterial Soap Examples: Dial or Safeguard. After showering, do not apply any lotions, colognes, oils, deodorant, powder, or make-up. VISITOR POLICY: Patients in outpatient/surgical settings may have 2 dedicated visitors; children over 12 will be permitted as one of the 2 visitors, provided they are accompanied by a caregiver as the second visitor. Children can not be left unattended in the hospital setting. BRING YOUR MEDICATIONS IN THE BOTTLES OR PICTURES OF THE LABELS FOR REVIEW DAY OF YOUR SURGERY. Expect to remove wigs, dentures/partials, contact lenses, piercings, hearing aids, and prostheses before surgery. Do not wear jewelry to the hospital on the day of surgery. Bring glasses and hearing aids (with cases for both), inhalers, and CPAP/BiPAP machine day of surgery. If you will be admitted to the hospital after surgery, feel free to bring a toiletry bag. Arrange for a friend or family member to pick you up from the hospital, drive you home, and assist you if necessary. You will not be allowed to drive home. NO non-medical transport services (buses, taxis, etc.) allowed. A responsible adult must be with you for 24 hours after your procedure. Call your surgeon if you develop a rash, fever, cold, or any other signs/symptoms of infection prior to surgery. COVID-19 SWAB: Covid Swab not needed since you are Fully Vaccinated with your Booster Vaccine. If you develop and signs of infection or Covid symptoms, please call your surgeon for further instructions. Any questions/concerns, please call the Admission Testing Center at [phone]. Thank you, Alfred RN (instructions sent via E-MAIL) * Perioperative Nursing Note - Darwin Frias RN - 03/23/2022 1:53 PM CDT COVID testing not needed, patient is vaccinated and boosted. documented in this encounter Plan of Treatment Not on file documented as of this encounter Procedures Procedure Name Priority Date/Time Associated Diagnosis Comments LAPAROSCOPIC PERITONEAL DIALYSIS CATHETER 04/03/2022 7:29 AM CDT END STAGE RENAL DISEASE ECG 12-LEAD STAT 04/03/2022 6:45 AM CDT EGFR STAT 04/03/2022 6:24 AM CDT DIFFERENTIAL AUTO STAT 04/03/2022 6:2 4 AM CDT CBC WITH AUTO DIFFERENTIAL STAT 04/03/2022 6:24 AM CDT PROTIME-INR STAT 04/03/2022 6:24 AM CDT BASIC METABOLIC PANEL STAT 04/03/2022 6:24 AM CDT documented in this encounter Results * ECG 12 lead (04/03/2022 6:45 AM CDT) Pathologist [facility] Ventricular Rate EKG/Min 74 BPM [facility] QRS-Interval (MSEC) 106 ms [facility] QT-Interval (MSEC) 464 ms [facility] QTc 515 ms [facility] R [place] 36 degrees [facility] T [place] 192 degrees [facility] Diagnosis Atrial fibrillation ST & T wave abnormality, consider inferior ischemia ST & T wave abnormality, consider anterolateral ischemia Prolonged QT Abnormal ECG When compared with ECG of 07-AUG-2000 10:12, Atrial fibrillation has replaced Sinus rhythm ST now depressed in Anterior leads T wave inversion more evident in Anterior leads [facility] 04/03/2022 6:45 AM CDT 04/03/2022 7:21 AM CDT us Cruzito Cerda DO ECG ORDERABLES Final Result [facility] * eGFR (04/03/2022 6:24 AM CDT) Pathologist [facility] eGFR 6 mL/min/1. 73 m2 [facility] Comment: Interpretive Data Reference Interval Normal ?>/= 90 mL/min/1.73m2 Mildly decreased* ? 60 - 89 mL/min/1.73m2 Mildly to moderately decreased ?45 - 59 mL/min/1.73m2 Moderately to severely decreased ??30 - 44 mL/min/1.73m2 Severely decreased ?15 - 29 mL/min/1.73m2 Kidney Failure ?< 15 ??mL/min/1.73m2 *Relative to young adult level Estimated glomerular filtration rate is determined by the 2020 CKD-EPI equation recommended by the National Kidney Foundation (A Unifying Approach to GFR Estimation: Recommendations of the NKF-ASK Task Force on Reassessing the Inclusion of Race in Diagnosing Kidney Disease, JASN 2020). The CKD-EPI equation should not be used for patients with unstable renal function and has not been validated in children and those over 70. Current interpretive data was last reviewed 2021. Blood 04/03/2022 6:24 AM CDT 04/03/2022 6:28 AM CDT us Sheridan Leroy MD LAB BLOOD ORDERABLES Samina barbosa Result [place] [id number] [facility] Department of Laboratories [place], [place] [id number] * (ABNORMAL) Differential, auto (04/03/2022 6:24 AM CDT) Pathologist [facility] Neutrophil abs 6.0 1.7 - 6.5 K/cumm [facility] Imm gran abs 0.1 0.0 - 0.1 K/cumm [facility] Lymphocyte abs 1.0 0.8 - 3.3 K/cumm [facility] Monocyte abs 1.0(H) 0.2 - 0.8 K/cumm [facility] Eosinophil abs 0.5 0.0 - 0.5 K/cumm [facility] Basophil abs 0.0 0.0 - 0.1 K/cumm [facility] Neutrophil pct 69.6 % [facility] Comment: Interpretive Data Percent cell count reference ranges are not reported, since discordance with absolute values may lead to misinterpretation of CBC data. Current Interpretive Data was last revised on 2017. Imm gran pct 0.7 % [facility] Comment: Interpretive Data Percent cell count reference ranges are not reported, since discordance with absolute values may lead to misinterpretation of CBC data. Current Interpretive Data was last revised on 2017. Lymphocyte pct 11.8 % [facility] Comment: Interpretive Data Percent cell count reference ranges are not reported, since discordance with absolute values may lead to misinterpretation of CBC data. Current Interpretive Data was last revised on 2017. Monocyte pct 11.6 % [facility] Comment: Interpretive Data Percent cell count reference ranges are not reported, since discordance with absolute values may lead to misinterpretation of CBC data. Current Interpretive Data was last revised on 2017. Eosinophil pct 5.8 % [facility] Comment: Interpretive Data Percent cell count reference ranges are not reported, since discordance with absolute values may lead to misinterpretation of CBC data. Current Interpretive Data was last revised on 2017. Basophil pct 0.5 % [facility] Comment: Interpretive Data Percent cell count reference ranges are not reported, since discordance with absolute values may lead to misinterpretation of CBC data. Current Interpretive Data was last revised on 2017. Blood 04/03/2022 6:24 AM CDT 04/03/2022 6:28 AM CDT us Cruzito Cerda DO LAB BLOOD ORDERABLES Final Re sult [facility] [id number] [facility] Department [place] [address] * (ABNORMAL) Basic metabolic panel (04/03/2022 6:24 AM CDT) Sodium 139 135 - 145 mmol/L [facility] Potassium, pl 4.3 3.3 - 4.9 mmol/L [facility] Chloride 98 97 - 110 mmol/L [facility] CO2 28 22 - 32 mmol/L [facility] Anion gap 13 2 - 15 mmol/L [facility] BUN 58(H) 8 - 25 mg/dL [facility] Creatinine 7.60(H) 0.60 - 1.10 mg/dL [facility] Glucose 93 70 - 199 mg/dL [facility] Comment: Interpretive Data Fasting glucose >/= 126 mg/dl is diagnostic for diabetes. ?? Fasting is defined as no caloric intake for at least 8 hours. Fasting glucose between 100 mg/dl to 125 mg/dl is diagnostic of prediabetes. In a patient with classic symptoms of hyperglycemia or hyperglycemic crisis, a random glucose >/= 200 mg/dl is diagnostic for diabetes. In the absence of unequivocal hyperglycemia, results should be confirmed by repeat testing. The classification and Diagnosis of Diabetes Diabetes Care 2017;40 (Suppl. 1):S11. Current interpretive data was last revised 2017. Calcium 9.7 8.5 - 10.3 mg/dL [facility] Blood 04/03/2022 6:24 AM CDT 04/03/2022 6:28 AM CDT Sheridna Leroy MD LAB BLOOD ORDERABLES Samina l Result Performing Organization Address [facility] de Phone Number [address] [employer] [place], [place] [id number] * Protime-INR (04/03/2022 6:24 AM CDT) PT 14.5 12.0 - 14.6 sec [facility] INR 1.1 0.9 - 1.2 [facility] Comment: Ref Range High Interpretive data Oral anticoagulant therapeutic ranges: Venous thromboembolism prophylaxis or treatment: 2.0-3.0 CARDIOLOGY Standard range: 2.0-3.0 High-intensity range: 2.5-3.5 Refer to indication-specific guidelines for appropriate target ranges for prosthetic heart valve replacement. Current interpretive data was last revised on 2019. Blood 04/03/2022 6:24 AM CDT 04/03/2022 6:28 AM CDT Cruzito Cerda DO LAB BLOOD ORDERABLES Final Re sult Performing Organization Address [facility] Co de Phone Number [address] [employer] [place], [place] [id number] * (ABNORMAL) CBC with auto differential (04/03/2022 6:24 AM CDT) WBC 8.6 3.8 - 9.9 K/cumm [facility] Hgb 10.0(L) 11.9 - 15.5 g/dL [facility] Hct 31.2(L) 35.6 - 45.5 % [facility] Plt 261 150 - 400 K/cumm [facility] MPV 9.6 9.1 - 12.3 fL [facility] RBC 3.09(L) 3.90 - 5.20 M/cumm [facility] MCV 101.0(H) 81.3 - 96.4 fL [facility] MCH 32.4 27.1 - 33.3 pg [facility] MCHC 32.1(L) 32.3 - 35.7 g/dL [facility] RDW CV 13.9 11.1 - 14.9 % [facility] RDW SD 51.0(H) 35.7 - 48.1 fL [facility] NRBC abs 0.00 0.00 - 0.01 K/cumm [facility] Blood 04/03/2022 6:24 AM CDT 04/03/2022 6:28 AM CDT us Cruzito Cerda DO LAB BLOOD ORDERABLES Final Re sult [address] Department [place] [address] documented in this encounter Visit Diagnoses Not on filedocumented in this encounter Administered Medications Inactive Administered Medications - up to 3 most recent administrations Medication Order MAR Action Action Date Dose Rate Site acetaminophen (TYLENOL) tablet 975 mg 975 mg (rounded from 1,000 mg), oral, Once, On Sun04/03/22 at 0630, For 1 dose, Pre-Op, Indications: Pre-Emptive AnalgesiaIndications:Pre-Em ptive Analgesia Given 04/03/2022 6:28 AM CDT 975 mg bupivacaine-EPINEPHrine (MARCAINE with EPI) 0.5 %-1:200,000 preservative free injection As needed, Starting on Sun04/03/22 at 0812, Intra-Op Given 04/03/2022 8:12 AM CDT 20 mL Carrier Fluids for Secondary Infusion - 0.9% Sodium Chloride 30 mL, intravenous, As needed, For priming tubing and/or flushing, Starting on Sun04/03/22 at 0557, Pre-Op, 0-250 ml/hr to flush line after IV infusions when no maintenance IV ordered. Infuse 30mL at the same rate as the secondary infusion. Run as primary IV, not intended for KVO. Given 04/03/2022 6:28 AM CDT 30 mL dextrose (D10W) 10% bolus 250 mL 250 mL, intravenous, at 1,000 mL/hr, Administer over 15 Minutes, Every 15 min PRN, blood glucose less than 70 mg/dL and UNABLE to swallow/take PO glucose/juice., Starting on Sun04/03/22 at 0842, Phase I, After treatment for hypoglycemia, recheck BG followed by treatment every 15 minutes until the BG is greater than 100 mg/dL. Then check BG 1 hour post treatment. If BG is less than 100 mg/dL, repeat Q15 minute BG checks and treatment. Call MD for each episode of hypoglycemia., Indications: hypoglycemic disorderIndications:hypogly cemic disorder dextrose (GLUTOSE) 40 % gel 15 g 15 g, oral, Every 15 min PRN, low blood sugar, blood glucose less than 70 mg/dL, Starting on Sun04/03/22 at 0842, Phase I, If patient is alert and able to eat/drink, give 15 gm glucose or one juice (4 fluid ounces) NOT ORANGE JUICE. After treatment for hypoglycemia, recheck BG followed by treatment every 15 minutes until the BG is greater than 100 mg/dL. Then check BG 1 hour post-treatment. If BG is less than 100 mg/dL, repeat Q15 minute BG checks and treatment. Call MD for each episode of hypoglycemia. TELECOMMUNICATOR STATES GLUTOSE-15 CONTAINS GLUCOSE 40% W/W (50% W/V), Indications: hypoglycemic disorderIndications:hypogly cemic disorder famotidine (PEPCID) tablet 20 mg 20 mg, oral, Once, On Sun04/03/22 at 0630, For 1 dose, Pre-Op, Indications: gastroesophageal reflux diseaseIndications:gastroes ophageal reflux disease Given 04/03/2022 6:28 AM CDT 20 mg heparin 1,000 unit/mL injection As needed, Starting on Sun04/03/22 at 0813, Intra-Op Given 04/03/2022 8:13 AM CDT 1,000 Units Surgical Site sodium chloride 0.9% infusion 30 mL/hr, intravenous, Continuous, Starting on Sun04/03/22 at 0630, Pre-Op New Bag 04/03/2022 7:29 AM CDT vancomycin 1250 mg/250 mL in sodium chloride 0.9% (premix) 1,250 mg 1,250 mg (rounded from 1,156.5 mg = 15 mg/kg ? 77.1 kg), intravenous, Administer over 60 Minutes, Once, On Sun04/03/22 at 0630, For 1 dose, Pre-Op, Indications: Prophylaxis, SurgicalIndications:Prophyl axis, Surgical Given 04/03/2022 7:41 AM CDT 1,250 mg New Bag 04/03/2022 6:53 AM CDT 1,250 mg 250 mL/hr documented in this encounter Historical Medications * This list may reflect changes made after this encounter. warfarin (COUMADIN) 3 mg tablet Take 3.5 mg by mouth 3 (three) times a week 3.5mg, mon, wed, fri added in this encounter Active and Recently Administered Medications Times are shown in CDT. Scheduled Medication Order 04/01/2022 04/02/2022 04/03/2022 acetaminophen (TYLENOL) tablet 975 mg (COMPLETED) 975 mg (rounded from 1,000 mg), oral, Once, On Sun04/03/22 at 0630, For 1 dose, Pre-Op, Indications: Pre-Emptive Analgesia 0628 (Given - Provid er: Latisha Chino RN) famotidine (PEPCID) tablet 20 mg (COMPLETED) 20 mg, oral, Once, On Sun04/03/22 at 0630, For 1 dose, Pre-Op, Indications: gastroesophageal reflux disease 0628 (Given - Provid er: Latisha Chino RN) vancomycin 1250 mg/250 mL in sodium chloride 0.9% (premix) 1,250 mg (COMPLETED) 1,250 mg (rounded from 1,156.5 mg = 15 mg/kg ? 77.1 kg), intravenous, Administer over 60 Minutes, Once, On Sun04/03/22 at 0630, For 1 dose, Pre-Op, Indications: Prophylaxis, Surgical 0653 (New Bag - Prov ider: Latisha Chino RN)0741 (Given - Provider: Makenna Ceballos CRNA) Continuous Medication Order 04/01/2022 04/02/202204/03/2022 sodium chloride 0.9% infusion 30 mL/hr, intravenous, Continuous, Starting on Sun04/03/22 at 0630, Pre-Op 0729 (New Bag - Prov ider: Makenna Ceballos CRNA - Comment: started in preoperative area)0730 (Anesthesia Volume Adjustment - Provider: Makenna Ceballos CRNA)0834 (Anesthesia Volume Adjustment - Provider: Makenna Ceballos CRNA)1450 (Due: Stopped) PRN Medication Order 04/01/2022 04/02/2022 04/03/2022 bupivacaine-EPINEPHrine (MARCAINE with EPI) 0.5 %-1:200,000 preservative free injection (CANCELED) As needed, Starting on Sun04/03/22 at 0812, Intra-Op 0812 (Given - Provid er: Sulaiman Hi MD) Carrier Fluids for Secondary Infusion - 0.9% Sodium Chloride 30 mL, intravenous, As needed, For priming tubing and/or flushing, Starting on Sun04/03/22 at 0557, Pre-Op, 0-250 ml/hr to flush line after IV infusions when no maintenance IV ordered. Infuse 30mL at the same rate as the secondary infusion. Run as primary IV, not intended for KVO. 0628 (Given - Provid er: Latisha Chino RN) dextrose (D10W) 10% bolus 250 mL(Linked Group 1) 250 mL, intravenous, at 1,000 mL/hr, Administer over 15 Minutes, Every 15 min PRN, blood glucose less than 70 mg/dL and UNABLE to swallow/take PO glucose/juice., Starting on Sun04/03/22 at 0842, Phase I, After treatment for hypoglycemia, recheck BG followed by treatment every 15 minutes until the BG is greater than 100 mg/dL. Then check BG 1 hour post treatment. If BG is less than 100 mg/dL, repeat Q15 minute BG checks and treatment. Call MD for each episode of hypoglycemia., Indications: hypoglycemic disorder dextrose (GLUTOSE) 40 % gel 15 g(Linked Group 1) 15 g, oral, Every 15 min PRN, low blood sugar, blood glucose less than 70 mg/dL, Starting on Sun04/03/22 at 0842, Phase I, If patient is alert and able to eat/drink, give 15 gm glucose or one juice (4 fluid ounces) NOT ORANGE JUICE. After treatment for hypoglycemia, recheck BG followed by treatment every 15 minutes until the BG is greater than 100 mg/dL. Then check BG 1 hour post-treatment. If BG is less than 100 mg/dL, repeat Q15 minute BG checks and treatment. Call MD for each episode of hypoglycemia. TELECOMMUNICATOR STATES GLUTOSE-15 CONTAINS GLUCOSE 40% W/W (50% W/V), Indications: hypoglycemic disorder diphenhydrAMINE (BENADRYL) injection 12.5 mg 12.5 mg, intravenous, Every 15 min PRN, itching, Starting on Sun04/03/22 at 0842, For 2 doses, Phase I, Max cumulative dose 50 mg., Indications: Itching fentaNYL (SUBLIMAZE) preservative free injection 25 mcg 25 mcg, intravenous, Every 10 min PRN, uncontrolled pain on PACU admission, Starting on Sun04/03/22 at 0842, For 4 doses, Phase I, Then proceed to PACU 1st line analgesic., Indications: Pain glucagon injection 1 mg 1 mg, intramuscular, Every 30 min PRN, low blood sugar, blood glucose less than 70 mg/dL AND no IV access AND unable to take PO glucose/juice., Starting on Sun04/03/22 at 0842, Phase I, After Glucagon is administered, position patient on side if possible to avoid aspiration. Obtain IV access. Follow glucagon treatment with glucose treatment or IV dextrose. After treatment for hypoglycemia, recheck BG followed by treatment every 15 minutes until the BG is greater than 100 mg/dL. Then check BG 1 hour post treatment. If BG is less than 100 mg/dL, repeat Q15 minute BG checks and treatment. Call MD for each episode of hypoglycemia. Reconstitute 1 mg vial with 1 mL SWFI. Use immediately following reconstitution. heparin 1,000 unit/mL injection (CANCELED) As needed, Starting on Sun04/03/22 at 0813, Intra-Op 0813 (Given - Provid er: Sulaiman Hi MD) hydrALAZINE (APRESOLINE) injection 5 mg 5 mg, intravenous, Administer over 2 Minutes, Every 15 min PRN, high blood pressure, Starting on Sun04/03/22 at 0842, Phase I, Max cumulative dose 20 mg. Dose if systolic BP greater than 180 AND heart rate less than 70., Indications: hypertension HYDROmorphone (DILAUDID) injection 0.2 mg 0.2 mg, intravenous, Administer over 2 Minutes, Every 10 min PRN, 1st line for pain, Starting on Sun04/03/22 at 0842, Phase I, Switch to 2nd line analgesic order if pain is uncontrolled or increasing after 2 doses. Notify Anesthesiologist if total PACU dose reaches 2 mg and pain score 5/10 or more., Indications: Pain HYDROmorphone (DILAUDID) injection 0.4 mg 0.4 mg, intravenous, Administer over 2 Minutes, Every 10 min PRN, 2nd line for pain, Starting on Sun04/03/22 at 0842, Phase I, May administer 10 mintes after 2nd dose of 1st line analgesic agent for uncontrolled or increasing pain. Revert to 1st line dose if POSS of 3. Notify Anesthesiologist if total PACU dose reaches 2 mg and pain score 5/10 or more., Indications: Pain insulin lispro (HumaLOG, ADMELOG) 100 unit/mL injection 1-5 Units 1-5 Units, subcutaneous, Once as needed, high blood sugar, Starting on Sun04/03/22 at 0842, For 1 dose, Phase I, Blood Sugar Mid Dose - Surgical/Post-Op ICU 139 or less No insulin 140 - 175 1 unit 176 - 200 2 unit 201 - 250 3 units 251 - 299 5 units Greater than 299 Call MD for hyperglycemia management instructions Do NOT hold for NPO status., Indications: Diabetes Mellitus labetaloL (NORMODYNE,TRANDATE) injection 5 mg 5 mg, intravenous, at 30 mL/hr, Administer over 2 Minutes, Every 10 min PRN, high blood pressure, Starting on Sun04/03/22 at 0842, Phase I, Max cumulative dose 20 mg. Dose if systolic blood pressure greater than 180 AND HR greater than 70. lidocaine (XYLOCAINE) 10 mg/mL (1 %) injection 2-10 mg 2-10 mg (0.2-1 mL), other, Once as needed, pain with IV placement, Starting on Sun04/03/22 at 0557, For 1 dose, Pre-Op, Administer volume needed to infiltrate IV site. meperidine (DEMEROL) preservative free injection 12.5 mg 12.5 mg, intravenous, Administer over 5 Minutes, Every 10 min PRN, shivering, Starting on Sun04/03/22 at 0842, For 2 doses, Phase I, Max cumulative dose 25 mg., Indications: Shivering naloxone (NARCAN) 0.4 mg/mL injection 0.04-0.4 mg 0.04-0.4 mg, intravenous, Once as needed, other, excessive sedation/respiratory depression, Starting on Sun04/03/22 at 0842, For 1 dose, Phase I, Dilute 0.4 mg with 9 mL NS (final concentration 0.04 mg/mL). For respiratory depression (respiratory rate less than 6), administer 0.4 mg IVP over 30 seconds. For excessive sedation administer 0.04 mg (1 mL) every 1 minute until desired level of alertness. For IV, administer over 30 seconds., Indications: Opioid Toxicity ondansetron (ZOFRAN) injection 4 mg 4 mg, intravenous, Administer over 2 Minutes, Once as needed, nausea, vomiting, Starting on Sun04/03/22 at 0842, For 1 dose, Phase I, Proceed to prochlorperazine if ondansetron has been given within the last 6 hours. prochlorperazine (COMPAZINE) injection 5 mg 5 mg, intravenous, Administer over 2 Minutes, Once as needed, nausea, vomiting, Starting on Sun04/03/22 at 0842, For 1 dose, Phase I, If nausea/vomiting not relieved by ondansetron within 30 minutes or if ondansetron has been given within the last 6 hours. sodium chloride 0.9% flush 0.5-20 mL 0.5-20 mL, intra-catheter, As needed, line care, Starting on Sun04/03/22 at 0557, Pre-Op, Flush volume based on line type and size. Flush before and after each use. Linked Groups Order Group 1: dextrose (GLUTOSE) 40 % gel 15 gJump to med 15 g, oral, Every 15 min PRN, low blood sugar, blood glucose less than 70 mg/dL, Starting on Sun04/03/22 at 0842, Phase I, If patient is alert and able to eat/drink, give 15 gm glucose or one juice (4 fluid ounces) NOT ORANGE JUICE. After treatment for hypoglycemia, recheck BG followed by treatment every 15 minutes until the BG is greater than 100 mg/dL. Then check BG 1 hour post-treatment. If BG is less than 100 mg/dL, repeat Q15 minute BG checks and treatment. Call MD for each episode of hypoglycemia. TELECOMMUNICATOR STATES GLUTOSE-15 CONTAINS GLUCOSE 40% W/W (50% W/V), Indications: hypoglycemic disorder Or dextrose (D10W) 10% bolus 250 mLJump to med 250 mL, intravenous, at 1,000 mL/hr, Administer over 15 Minutes, Every 15 min PRN, blood glucose less than 70 mg/dL and UNABLE to swallow/take PO glucose/juice., Starting on Sun04/03/22 at 0842, Phase I, After treatment for hypoglycemia, recheck BG followed by treatment every 15 minutes until the BG is greater than 100 mg/dL. Then check BG 1 hour post treatment. If BG is less than 100 mg/dL, repeat Q15 minute BG checks and treatment. Call MD for each episode of hypoglycemia., Indications: hypoglycemic disorder documented in this encounter Orders Medications Ordered That Tim ht Not Have Been Administered Count Last Ordered Date First Ordered Date dextrose (D10W) 10% bolus 250 mL 04/03/20 dextrose (GLUTOSE) 40 % gel 15 g 04/03/20 diphenhydrAMINE (BENADRYL) i njection 12.5 mg 04/03/2022 fentaNYL (SUBLIMAZE) preserv ative free injection 25 mcg 04/03/2022 glucagon injection 1 mg 04/03/2022 hydrALAZINE (APRESOLINE) injection 5 mg 1 0 04/03/2022 HYDROmorphone (DILAUDID) injection 0.2 mg 04/03/2022 HYDROmorphone (DILAUDID) injection 0.4 mg 04/03/2022 insulin lispro (HumaLOG, ADM ELOG) 100 unit/mL injection 1-5 Units 04/03/2022 labetaloL (NORMODYNE,TRANDAT E) injection 5 mg 04/03/2022 lidocaine (XYLOCAINE) 10 mg/ mL (1 %) injection 2-10 mg 04/03/2022 meperidine (DEMEROL) preserv ative free injection 12.5 mg 04/03/2022 naloxone (NARCAN) 0.4 mg/mL injection 0.04-0.4 mg 1 04/03/2022 ondansetron (ZOFRAN) injection 4 mg 1 04/03 prochlorperazine (COMPAZINE) injection 5 mg 1 04/03/2022 sodium chloride 0.9% flush 0.5-20 mL 1 03/16 sodium chloride 0.9% infusion 1 04/03/2022 Discharge Count Last Ordered Date First Orde red Date DISCHARGE PATIENT 1 04/03/2022 documented in this encounter Care Teams Precision Agronomist Relationship Specialty Start Date End Date Brandie Rhoades NP [address] [place] [address] PCP - General Nurse Practitioner 08/09/21 Mookie Dubois MD [address] [place] [address] Referring Physician Nephrology 02/20/22 documented as of this encounter
--- OUTSIDE RECORDS SUMMARY | 2024-07-12 15:09 | XMS_ITS | Encounter Summary ---
Author Organization [facility] Address [address] [place] [address] Care Team Providers Care Office Services Assistant Name Role Phone Brandie Rhoades NP Primary Care Provider Mookie Dubois MD Unavailable [phone] Encounter Details Date Type Department Care Team (Latest Contact Info) Description 04/03/2022 Anticoagulation Visit [facility] Cardiology [address] [place] [address] Carolyne Trujillo, RN Atrial fibrillation, unspecified type (HCC) (Primary [...] on file 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
--- OUTSIDE RECORDS SUMMARY | 2024-07-12 15:09 | XMS_ITS | Encounter Summary ---
Author Organization [facility] Address [address] [place] [address] Care Team Providers Care Numerical Control Nesting Operator Name Role Phone [place] Brandie Quan NP Primary Care Provider [phone] Mookie Dubois MD Unavailable [phone] Encounter Details Date Type Department Care Team (Late st Contact Info) Description 07/03/2022 10:15 AM SHIFT SUPERINTENDENT CAUSTIC CRESYLATE Office Visit [facility] Cardiology [address] [place] [address] Persistent atrial fibrillation (HCC) (Primary Dx) Social History Tobacco Use [...] on file 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 SHIFT SUPERINTENDENT CAUSTIC CRESYLATE Gender Identity Not on file Sexual Orientation Not on file documented as of this encounter Progress Notes * Jacqui Shen MA - 07/03/2022 10:15 AM CST Patient presented to the office today for a one month follow up for EKG and BP check after stoppingAmioderone. Patient does not report any symptoms at this time and states that her BP has been running well at home. RN reviewed EKG and given to Lydia for signature. T SUPERINTENDENT CAUSTIC CRESYLATE documented in this encounter Plan of Treatment Not on file documented as of this encounter Procedures Procedure Name Priority Date/Time Associated Diagnosis Comments ECG 12-LEAD Routine 07/03/2022 Persistent atrial fibrillation (HCC) documented in this encounter Results * ECG 12 lead (07/03/2022) us Lydia Lewis NP ECG ORDERABLES Final Res ult documented in this encounter Visit Diagnoses Diagnosis Persistent atrial fibrillation (HCC)- Primary Atrial fibrillation documented in this encounter Care Teams Numerical Control Nesting Operator Relationship Specialty Start Date End Date Rhoades, Brandie Quan NP [address] [place] [address] PCP - General Nurse Practitioner 08/09/21 Mookie Dubois MD [address] [place] [address] Referring Physician Nephrology 02/20/22 documented as of this encounter
--- OUTSIDE RECORDS SUMMARY | 2024-07-12 15:09 | XMS_ITS | Encounter Summary ---
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
--- OUTSIDE RECORDS SUMMARY | 2024-07-12 15:09 | XMS_ITS | Encounter Summary ---
Author Organization [facility] Address [address] [place] [address] Care Team Providers Care Front Sight Attacher Name Role Phone [place], Brandie Quan NP Primary Care Provider [phone] Mookie Dubois MD Unavailable [phone] Reason for Visit * Reason Comments Atrial Fibrillation Coronary Artery Disease 6 month follow u p. 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 Gender Identity Not on file Sexual Orientation Not on file documented as of this encounter Last Filed Vital Signs Vital Sign Reading Time Taken Comments Blood Pressure 110/74 10/30/2023 11:20 AM CDT Pulse - - Temperature - - Respiratory Rate - - Oxygen Saturation 97% 10/30/2023 11:20 AM CDT Inhaled Oxygen Concentration - - Weight 93.1 kg (205 lb 4.8 oz) 10/30/2023 11:20 AM CDT Height 152.4 cm (5') 10/30/2023 11:20 AM CDT Body Mass Index 40.09 10/30/2023 11:20 AM CDT documented in this encounter Progress Notes * Jama Hoskins MD - 10/30/2023 11:15 AM CDT [facility] FOLLOW UP 10/30/2023 Dory Lynn is a 62 y.o. female who presents for follow up of atrial fibrillation and cardiomyopathy. This is a patient that was 1st seen in July of 2021 in the hospital at [facility] when she presented with dyspnea. She was [...] back in atrial fibrillation. Further attempts at druze of sinus rhythm were declined by the [...] returns to the office today for scheduled follow-up. Her last visit here was with the nurse practitioner. According to the note she is doing well at that time. She continues to do peritoneal dialysis at home. She continues to take a high dose of metoprolol for rate control. She has no cardiovascular symptoms at all. She is primarily concerned about weight gain that she attributes to her peritoneal dialysis. REVIEW OF SYSTEMS General ROS: negative for [...] Medications: calcitRIOL (ROCALTROL) 0.5 mcg capsule, Take 0.25 mcg by mouth daily 1 daily, Disp: , Rfl: eplerenone (INSPRA) 50 mg tablet, Take 1 tablet (50 mg total) by mouth daily, Disp: , Rfl: furosemide (LASIX) 80 mg tablet, Take 1 tablet (80 mg total) by mouth every evening, Disp: , Rfl: levothyroxine (SYNTHROID) 25 mcg tablet, Take 1 tablet (25 mcg total) by mouth daily, Disp: , Rfl: losartan (COZAAR) 50 mg tablet, Take 1 tablet (50 mg total) by mouth daily, Disp: 30 tablet, Rfl: 11 metoprolol (LOPRESSOR) 100 mg tablet, Take 1 tablet (100 mg total) by mouth 2 (two) times a day, Disp: 180 tablet, Rfl: 3 Jennifer-Silvia 0.8 mg tablet, Take 0.8 mg by mouth daily, Disp: , Rfl: sevelamer (RENVELA) 800 mg tablet, Take 1 tablet (800 mg total) by mouth 3 (three) times a day withmeals, Disp: , Rfl: warfarin (COUMADIN) 2.5 mg tablet, TAKE 1 & 1/2 (ONE & ONE-HALF) TABLETS BY MOUTH ONCE DAILY DIRECTED, Disp: 21 tablet, Rfl: 0 warfarin (COUMADIN) 3 mg [...] for component: LABALBU PHYSICAL EXAM Vitals BP 110/74 (BP Location: Left arm, Patient Position: Sitting) Ht 152.4 cm (5') Wt 93.1 kg (205 lb 4.8 oz) SpO2 97% BMI 40.09 kg/m?? Heart rate 100 by physical exam [...] 6 months or p.r.n. Jama Hoskins MD documented in this encounter Miscellaneous Notes * Addendum Note - Jenniffer Valenzuela MA - 10/30/2023 11:15 AM CDTAddended by: JENNIFFER VALENZUELA on: 10/30/2023 03:42 PM Modules accepted: Orders documented in this encounter Plan of Treatment Not on file documented as of this encounter Procedures Procedure Name Priority Date/Time Associated Diagnosis Comments POCT LIPID PANEL Routine 10/30/2023 3:41 PM CDT Lipid screening documented in this encounter Results * POCT lipid panel (10/30/2023 3:41 PM CDT) Cholesterol, POC 127 mg/dL HDL, POC 46 mg/dL Triglycerides, POC 175 mg/dL LDL Cholesterol POC 46 mg/dL Chol/HDL Ratio, POC 1.0 Non-HDL Cholesterol, POC 81 mg/dL Cholesterol Total, POC 127 mg/dL Capillary blood 10/30/2023 3 :41 PM CDT us Jama Hoskins MD POINT OF CARE TEST ORDER GILES Final Result documented in this encounter Visit Diagnoses Diagnosis Permanent atrial fibrillation (CMS/HCC) (HCC)- Primary Atrial fibrillation Lipid screening Screening for lipoid disorders documented in this encounter Care Teams Front Sight Attacher Relationship Specialty Start Date End Date Brandie Rhoades NP [address] [place] [address] PCP - General Nurse Practitioner 08/09/21 Mookie Dubois MD [address] [place] [address] Referring Physician Nephrology 02/20/22 documented as of this encounter
--- OUTSIDE RECORDS SUMMARY | 2024-07-12 15:09 | XMS_ITS | Encounter Summary ---
Author Organization [facility] Healthcare Address [address] [place] [address] Care Team Providers Care Street Light Mechanic Name Role Phone [place], Brandie Quan NP Primary Care Provider [phone] Mookie Dubois MD Unavailable [phone] Encounter Details Date Type Department Care Team (Late st Contact Info) Description 05/01/2023 Telephone [facility] Medical Group Cardiology [address] [facility] 162 [facility] [address] [place] [address] Jama Hoskins MD [address] [facility] [address] [place] [address] Social History Tobacco Use Types [...] on file 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 documented in this encounter Plan of Treatment Scheduled Orders Name Type Priority Associated Diagnoses Orde r Schedule Protime-INR Lab Routine Atrial fibrillation, unspecified type (HCC) 52 Occurrences starting 05/01/2023 until 05/01/2024, 6 completed documented as of this encounter Procedures Procedure Name Priority Date/Time Associated Diagnosis Comments PROTIME-INR Routine 01/11/2024 11:58 AM CDT Atrial fibrillation, unspecified type (HCC) PROTIME-INR Routine 01/02/2024 12:20 PM CDT Atrial fibrillation, unspecified type (HCC) PROTIME-INR Routine 12/14/2023 12:51 PM CDT Atrial fibrillation, unspecified type (HCC) PROTIME-INR Routine 05/23/2023 1:41 PM PHARMACY BUYER Atrial fibrillation, unspecified type (HCC) PROTIME-INR Routine 05/11/2023 2:22 PM CDT Atrial fibrillation, unspecified type (HCC) PROTIME-INR Routine 05/03/2023 12:10 PM CDT Atrial fibrillation, unspecified type (HCC) documented in this encounter Results * (ABNORMAL) Protime-INR (01/11/2024 11:58 AM CDT) INR 3.1(H) x.aiCammie Garcia Comment: Reference Range ? 0.9-1.1 Moderate-intensity Warfarin Therapy 2.0-3.0 Higher-intensity Warfarin Therapy ?? 3.0-4.0 PT 30.8(H) 9.0 - 11.5 sec x.aiCammie Garcia Comment: For additional information, please refer to http://education.[employer]/faq/YMB494 (This link is being provided for informational/ educational purposes only.) Blood 01/11/2024 11:5 8 AM CDT 01/11/2024 11:59 AM CDT Narrative [facility] - 01/12/2024 1:43 AM CDT FASTING:NO FASTING: NO Jama Hoskins MD LAB BLOOD ORDERABLES Fin al Result Performing Organization Address [facility] de Phone Number [facility] [address] [place] [address] * (ABNORMAL) Protime-INR (01/02/2024 12:20 PM CDT) INR 1.8(H) [facility] Comment: Reference Range ? 0.9-1.1 Moderate-intensity Warfarin Therapy 2.0-3.0 Higher-intensity Warfarin Therapy ?? 3.0-4.0 PT 18.0(H) 9.0 - 11.5 sec [facility] Comment: For additional information, please refer to http://Missy[employer] Candy.[employer]/faq/SRM719 (This link is being provided for informational/ educational purposes only.) Blood 01/02/2024 12:2 0 PM CDT 01/02/2024 12:20 PM CDT Narrative [facility] - 01/02/2024 11:39 PM CDT FASTING:NO FASTING: NO Jama Hoskins MD LAB BLOOD ORDERABLES Fin al Result Performing Organization Address [facility] de Phone Number [facility] [address] [place] [address] * (ABNORMAL) Protime-INR (12/14/2023 12:51 PM CDT) INR 1.3(H) [facility] Comment: Reference Range ? 0.9-1.1 Moderate-intensity Warfarin Therapy 2.0-3.0 Higher-intensity Warfarin Therapy ?? 3.0-4.0 PT 13.5(H) 9.0 - 11.5 sec [facility] Comment: For additional information, please refer to http://[email or web address] Candy.[email or web address]/faq/PPC455 (This link is being provided for informational/ educational purposes only.) Blood 12/14/2023 12:5 1 PM CDT 12/14/2023 12:52 PM CDT Narrative [facility] - 12/15/2023 3:29 AM CDT FASTING:YES FASTING: YES Jama Hoskins MD LAB BLOOD ORDERABLES Fin al Result Performing Organization Address [facility] de Phone Number [facility] [address] [place] [address] * (ABNORMAL) Protime-INR (05/23/2023 1:41 PM PHARMACY BUYER) INR 1.8(H) [facility] Comment: Reference Range ? 0.9-1.1 Moderate-intensity Warfarin Therapy 2.0-3.0 Higher-intensity Warfarin Therapy ?? 3.0-4.0 PT 18.2(H) 9.0 - 11.5 sec [facility] Comment: For additional information, please refer to http://Paddle[employer]/faq/WCV252 (This link is being provided for informational/ educational purposes only.) Blood 05/23/2023 1:41 PM PHARMACY BUYER 05/23/2023 1:41 PM PHARMACY BUYER Narrative [facility] - 05/24/2023 2:09 AM PHARMACY BUYER FASTING:NO FASTING: NO Jama Hoskins MD LAB BLOOD ORDERABLES Fin al Result Performing Organization Address [facility] de Phone Number [facility] [address] [place] [address] * (ABNORMAL) Protime-INR (05/11/2023 2:22 PM CDT) INR 1.3(H) [facility] Comment: Reference Range ? 0.9-1.1 Moderate-intensity Warfarin Therapy 2.0-3.0 Higher-intensity Warfarin Therapy ?? 3.0-4.0 PT 13.3(H) 9.0 - 11.5 sec [facility] Comment: For additional information, please refer to http://[email or web address] Candy.[email or web address]/faq/URG901 (This link is being provided for informational/ educational purposes only.) Blood 05/11/2023 2:22 PM CDT 05/11/2023 2:22 PM CDT Narrative [facility] - 05/12/2023 1:13 AM CDT FASTING:NO FASTING: NO Jama Hoskins MD LAB BLOOD ORDERABLES Fin al Result Performing Organization Address [facility] de Phone Number [facility] [address] [place] [address] * (ABNORMAL) Protime-INR (05/03/2023 12:10 PM CDT) INR 1.2(H) [facility] Comment: Reference Range ? 0.9-1.1 Moderate-intensity Warfarin Therapy 2.0-3.0 Higher-intensity Warfarin Therapy ?? 3.0-4.0 PT 12.4(H) 9.0 - 11.5 sec [facility] Comment: For additional information, please refer to http://Paddle[employer]/faq/OAM299 (This link is being provided for informational/ educational purposes only.) Blood 05/03/2023 12:1 0 PM CDT 05/03/2023 12:10 PM CDT Jama Hoskins MD LAB BLOOD ORDERABLES Fin al Result Performing Organization Address [facility] de Phone Number [facility] [address] [place] [address] documented in this encounter Visit Diagnoses Diagnosis Atrial fibrillation, unspecified type (HCC)- Primary documented in this encounter Care Teams Street Light Mechanic Relationship Specialty Start Date End Date Brandie Rhoades NP [address] [place] [address] PCP - General Nurse Practitioner 08/09/21 Mookie Dubois MD [address] [place] [address] Referring Physician Nephrology 02/20/22 documented as of this encounter
--- OUTSIDE RECORDS SUMMARY | 2024-07-12 15:09 | XMS_ITS | Encounter Summary ---
Author Organization [facility] Healthcare Address [address] [place] [address] Care Team Providers Care Sounding Device Operator Name Role Phone Brandie Rhoades NP Primary Care Provider [phone] Mookie Dubois MD Unavailable [phone] Reason for Visit * Reason Comments Follow-up Atrial Fibrillation Encounter Details Date Type Department Care Team (Late st Contact Info) Description 05/01/2023 11:00 AM CDT Office Visit [facility] Cardiology [address] [facility] [address] [address] Lydia Lewis NP [address] [facility] [address] [place] [address] Longstanding persistent atrial fibrillation (CMS/HCC) (HCC) (Primary Dx); Chronic anticoagulation; Dilated cardiomyopathy (CMS/HCC) (HCC); Hypertensive heart disease with chronic systolic congestive heart failure (CMS/HCC) (HCC); ESRD (end stage renal disease) on dialysis (HCC) Social History Tobacco Use Types Packs/Day [...] file 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 Gender Identity Not on file Sexual Orientation Not on file documented as of this encounter Last Filed Vital Signs Vital Sign Reading Time Taken Comments Blood Pressure 120/90 05/01/2023 11:17 AM CDT Pulse 122 05/01/2023 11:17 AM CDT Temperature - - Respiratory Rate - - Oxygen Saturation 96% 05/01/2023 11:17 AM CDT Inhaled Oxygen Concentration - - Weight 90.3 kg (199 lb) 05/01/2023 11:17 AM CDT Height 152.4 cm (5') 05/01/2023 11:17 AM CDT Body Mass Index 38.86 05/01/2023 11:17 AM CDT documented in this encounter Ordered Prescriptions Prescription Sig Dispense Quantity Refills Last Filled Start Date End Date metoprolol (LOPRESSOR) 100 mg tabletIndications: Longstanding persistent atrial fibrillation (CMS/HCC) (HCC) Take 1 tablet (100 mg total) by mouth 2 (two) times a day 180 tablet 3 05/01/2023 04/22/2024 documented in this encounter Progress Notes * Lydia Lewis NP - 05/01/2023 11:00 AM CDT Images from the original note were not included. [facility] Cardiology [address] [place] [address] Date of Visit: 05/01/2023 Patient ID: Dory Lynn 1960 Chief Complaint Patient presents with Follow-up Atrial Fibrillation Dory Lynn is a 62 y.o. female who is an established patient of Dr. Hoskins with a history ofatrial fibrillation and cardiomyopathy returning for routine follow-up. History of Present Illness: Dory Lynn is a 62 y.o. female who presents for follow up of atrial fibrillation and cardiomyopathy. This is a patient that was 1st seen in July of 2021 in the hospital at [place] when she presented with dyspnea. She was [...] with the nurse practitioner it looks like lali was doing reasonably well. Her ARB dosage was advanced because of hypertension. It looks like she was then also transitioned from hemodialysis to peritoneal dialysis at home. 08/24/[address] Hoskins: She returns to the office today for scheduled follow-upappointment. She does not describe any symptoms of decompensated heart failure not having any chestpain. She was somewhat concerned that her weight continues to slowly increase she says she is not eating excessive amount of calories and she is keeping track of her peritoneal dialysis very closely. 05/01/2023 office visit with PRESCHOOL ASSISTANT TEACHER: she reports feeling better over the past month. She states her endurance is better , sleeping heavily, appetite better, and she is able to do more activity such as cooking. She is taking her thyroid medication daily. She continues to do peritoneal dialysis at home. She denies any chest pain, palpitations, shortness of breath, lightheadedness or bleeding problems. Occasionally she has mild lower extremity edema. She follows a 32 oz daily fluid restriction. Currently she is taking metoprolol tartrate 50 mg b.I.d.. She said this dose was reduced a few months ago when she was on hemodialysis because her blood pressure was dropping and she was passing out. Records that I personally reviewed on the day of this visit include: (the interpretation is outlined in the HPI above) 08/24/[address] Hoskins. I have also reviewed: allergies, current medications, past family history, past medical history, past social history, past surgical history and problem list Medical History: Past Medical History: Diagnosis Date A-fib (CMS/HCC) (HCC) Acute kidney failure, unspecified (HCC) CHF (congestive heart failure) (CMS/HCC) (HCC) Dental root implant present Dialysis patient (HCC) Eczema feet, arms which is resolved Hypertension [...] activity: Defer Alcohol Use: Not At Risk (03/23/2022) AUDIT-C Frequency of Alcohol Consumption: Monthly or less Average Number of Drinks: 1 or 2 Frequency of Binge Drinking: Never Family History Problem Relation Age of Onset No Known Problems Mother Heart attack Father Review of Systems Constitutional: Negative for malaise/fatigue, weight gain and weight loss. Cardiovascular: Negative for chest pain, claudication, dyspnea on exertion, leg swelling, near-syncope, orthopnea, palpitations, paroxysmal nocturnal dyspnea and syncope. Respiratory: Negative for cough, shortness of breath and sleep disturbances due to breathing. Hematologic/Lymphatic: Negative for bleeding problem. Does not bruise/bleed easily. Neurological: Negative for dizziness and light-headedness. Vital Signs: BP 120/90 (BP Location: Left arm, Patient Position: Sitting) Pulse 122 Ht 152.4 cm (5') Wt 90.3 kg (199 lb) SpO2 96% BMI 38.86 kg/m?? Physical Exam Constitutional: General: She is not in acute distress. Appearance: She is well-developed. HENT: Head: Normocephalic and atraumatic. Nose: Comments: Wearing a mask Eyes: General: No scleral icterus. Conjunctiva/sclera: Conjunctivae normal. Neck: Vascular: No JVD. Trachea: No tracheal deviation. Cardiovascular: Rate and Rhythm: Tachycardia present. Rhythm irregular. Heart sounds: Normal heart sounds. No murmur heard. Comments: Rate approx 120 bpm Pulmonary: Effort: Pulmonary effort is normal. No respiratory distress. Breath sounds: Normal breath sounds. Abdominal: Comments: Peritoneal dialysis catheter covered with [...] mouth daily, Disp: 30 tablet, Rfl: 11 Jennifer-Silvia 0.8 mg tablet, Take 0.8 mg by mouth daily, Disp: , Rfl: sevelamer (RENVELA) 800 mg tablet, Take 1 tablet (800 mg total) by mouth 3 (three) times a day withmeals, Disp: , Rfl: warfarin (COUMADIN) 2.5 mg tablet, TAKE 1 OR 1/2 (ONE & ONE-HALF) TABLETS BY MOUTH ONCE DAILY as directed (Patient taking differently: Take 1 tablet (2.5 mg total) by mouth 4 (four) times a week Tue,thur, sat, sun), Disp: 150 tablet, Rfl: 3 warfarin (COUMADIN) 3 mg tablet, Take 3.5 mg by mouth 3 (three) times a week 3.5mg, mon, wed, fri, Disp: , Rfl: metoprolol (LOPRESSOR) 100 mg tablet, Take 1 tablet (100 mg total) by mouth 2 (two) times a day, Disp: 180 tablet, Rfl: 3 Lab Results Component Value Date POTASSIUM 4.3 04/03/2022 BUNSER 58 (H) 04/03/2022 CREATININE 7.60 (H) 04/03/2022 Lab Results Component Value Date WBC 8.6 04/03/2022 HGB 10.0 (L) 04/03/2022 HCT 31.2 (L) 04/03/2022 MCV 101.0 (H) 04/03/2022 Assessment: Diagnoses and all orders for this visit: Longstanding persistent atrial fibrillation (CMS/HCC) (HCC) (Primary) - metoprolol (LOPRESSOR) 100 mg tablet; Take 1 tablet (100 mg total) by mouth 2 (two) times a day Chronic anticoagulation Dilated cardiomyopathy (CMS/HCC) (HCC) Hypertensive heart disease with chronic systolic congestive heart failure (CMS/HCC) (HCC) ESRD (end stage renal disease) on dialysis ([facility]) Plan/Recommendations: Atrial fibrillation is asymptomatic. Currently her heart rate is uncontrolled. She reports her doseof metoprolol was reduced a few months ago because she was having symptomatic hypotension while shewas getting hemodialysis. This has not been a problem since she transitioned to peritoneal dialysis. Therefore I instructed her to resume metoprolol tartrate 100 mg b.i.d.. A new prescription was sent to her pharmacy. She is on warfarin for stroke risk reduction. She is not having any bleeding problems. She is overdue for INR check. A new standing order will be sent to [facility] and she states she will go to [facility] of this week. Continue follow-up with the anticoagulation Clinic. She has a history of cardiomyopathy. Her LVEF improved when she had a repeat echo in October of last year. Today she appears compensated. Continue furosemide, losartan and metoprolol. Blood pressure is controlled. Continue losartan, eplerenone, furosemide and metoprolol. Continue home peritoneal dialysis and follow-up with grinder brake lining. Return to the office for routine follow-up with Dr. Hoskins in 6 months. Call sooner with questions or concerns. 05/01/2023 SEN De oSuza- Nurse Practitioner with [facility] Card[facility] This note is dictated and transcribed using TrueView Direct Software. General Engineer variancesmay occur. Despite proofreading, typographical errors may occur. documented in this encounter Plan of Treatment Not on file documented as of this encounter Visit Diagnoses Diagnosis Longstanding persistent atrial fibrillation (CMS/HCC) (HCC)- Primary Chronic anticoagulation Encounter for long-term (current) use of anticoagulants Dilated cardiomyopathy (CMS/HCC) (HCC) Other primary cardiomyopathies Hypertensive heart disease with chronic systolic congestive heart failure (CMS/HCC) (HCC) ESRD (end stage renal disease) on dialysis (HCC) End stage renal disease documented in this encounter Discontinued Medications Medication Sig Discontinue Reason Start Date End Da te metoprolol tartrate (LOPRESSOR) 50 mg immediate release tablet Take 2 tablets by mouth twice daily Dose adjustment 10/26/2022 05/01/2023 oxyCODONE-acetaminoph en (PERCOCET) 5-325 mg per tabletIndications:Salima n Take 1 tablet by mouth every 4 (four) hours as needed for pain Therapy completed 04/03/2022 05/01/2023 ferrous sulfate 325 mg (65 mg of elemental iron) tablet Take 65 mg of elemental iron by mouth daily with breakfast Discontinued by another clinician 05/01/2023 documented as of this encounter Care Teams Sounding Device Operator Relationship Specialty Start Date End Date Brandie Rhoades NP [address] [place], [place] [id number] PCP - General Nurse Practitioner 08/09/21 Mookie Dubois MD [address] [place] [address] Referring Physician Nephrology 02/20/22 documented as of this encounter
--- OUTSIDE RECORDS SUMMARY | 2024-07-12 15:09 | XMS_ITS | Encounter Summary ---
Author Organization [facility] Healthcare Address [address] [place] [address] Care Team Providers Care Felt Cutter Name Role Phone Rhoades, Brandie Quan NP Primary Care Provider [phone] Mookie Dubois MD Unavailable [phone] Reason for Visit * Auth/Cert Specialty Diagnoses / Procedures Referred By Christiano dior Referred To Contact Diagnoses END STAGE RENAL DISEASE Procedures DE LAP INSERTION TUNNELED INTRAPERITONEAL CATHETER DE LAP OMENTOPEXY ADD-ON LAPAROSCOPIC INSERTION PERITONEAL DIALYSIS CATHETER, LYSIS OF ADHESIONS, OMENTOPEXY, POSSIBLE OPEN Referral ID Status Reason Start Date Expiration Date Visits Re quested Visits Authorized [id number] 1 1 Encounter Details Date Type Department Care Team (Latest Contact Info) Description 04/03/2022 5:41 AM CDT - 04/03/2022 10:50 AM CDT Hospital Encounter [facility] OR [address] [place] [address] Sulaiman Hi MD [address] [place] [id number] Discharge Disposition: Discharge to home or self care Social History Tobacco Use Types Packs/Day Years [...] on file 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 Gender Identity Not on file Sexual Orientation Not on file documented as of this encounter Last Filed Vital Signs Vital Sign Reading Time Taken Comments Blood Pressure 138/87 04/03/2022 9:45 AM CDT Pulse 68 04/03/2022 9:45 AM CDT Temperature 36.4 ??C (97.5 ??F) 04/03/2022 9:15 AM CD T Respiratory Rate 18 04/03/2022 9:45 AM CDT Oxygen Saturation 100% 04/03/2022 9:45 AM CDT Inhaled Oxygen Concentration - - [...] * Continuous Ambulatory Peritoneal Dialysis (Discharge Care) ([place]) documented in this encounter Medications at Time [...] PMH: Past Medical History: Diagnosis Date A-fib (CMS/HCC) (HCC) Acute kidney failure, unspecified (CMS/HCC) (HCC) CHF (congestive heart failure) (CMS/HCC) (HCC) Dental root implant present Dialysis patient (CMS/HCC) (HCC) Eczema feet, arms which is resolved Hypertension Permanent central venous catheter in place right upper chest Pleural effusion Pneumonia SOB (shortness of breath) Walker as ambulation aid Wears glasses PSH: Past Surgical History: Procedure Laterality Date SECTION 1 PORTACATH PLACEMENT right upper chest TONSILLECTOMY as a child Allergies: Allergies Allergen Reactions Aftab Inhibitors Angioedema Azithromycin [...] catheter Anesthesia: General Surgeon: Sulaiman Hi MD Industrial Engineering: [email or web address] Assembler: Veronica Oliveros RN Scrub: Carmelo Perez ST; Nga Akhtar RN [employer] Assembler: Rosetta Harvey RN; Alexandria Turcios RN Anesthesia: General Anesthesiologist: Sheridan Leroy MD MARKETING SUPPORT MANAGER: Makenna Ceballos CRNA Specimen: None Drains: None [...] with a 2-0 silk suture using a [employer] Remedy suture Passer. 5 mm trocars are removed [...] room in stable condition. Sulaiman Hi MD 28:35 AM * Pre-Procedure Instructions - Darwin Frias RN - 03/23/2022 2:10 PM CDT Images from the original note were not included. [place] [id number] [place], [place] [address] Surgery Reminder Checklist: Please arrive to [facility] Out[facility] Department for scheduled surgeryon Sunday04/03/2022 [...] at least 24 hours prior to surgery. [place] your teeth morning of procedure. Use mouth [...] please call the Admission Testing Center at [phone]. Thank you, Alfred RN (instructions sent via [...] ECG 12 lead (04/03/2022 6:45 AM CDT) Ventricular Rate EKG/Min 74 BPM [facility] QRS-Interval (MSEC) 106 ms [facility] QT-Interval (MSEC) 464 ms [facility] QTc 515 ms [facility] R [place] 36 degrees [facility] T [place] 192 degrees [facility] Diagnosis Atrial fibrillation ST & T wave abnormality, consider inferior ischemia ST & T wave abnormality, consider anterolateral ischemia Prolonged QT Abnormal ECG When compared with ECG of 07-AUG-2000 10:12, Atrial fibrillation has replaced Sinus rhythm ST now depressed in Anterior leads T wave inversion more evident in Anterior leads [facility] 04/03/2022 6:45 AM CDT 04/03/2022 7:21 AM CDT us Cruzito Cerda DO ECG ORDERABLES Final Result [facility] [place] * eGFR (04/03/2022 6:24 AM CDT) eGFR 6 mL/min/1. 73 m2 [facility] Comment: Interpretive Data Reference Interval Normal ?>/= [...] MD LAB BLOOD ORDERABLES Samina barbosa Result [facility] [address] [facility] [place] [address] * (ABNORMAL) Differential, auto (04/03/2022 6:24 AM CDT) Pathologist [facility] Neutrophil abs 6.0 1.7 - 6.5 K/cumm [facility] Imm gran abs 0.1 0.0 - 0.1 K/cumm [facility] Lymphocyte abs 1.0 0.8 - 3.3 K/cumm [facility] Monocyte abs 1.0(H) 0.2 - 0.8 K/cumm [facility] Eosinophil abs 0.5 0.0 - 0.5 K/cumm [facility] Basophil abs 0.0 0.0 - 0.1 K/cumm [facility] Neutrophil pct 69.6 % [facility] Comment: Interpretive Data Percent cell count reference ranges are not reported, since discordance with absolute values may lead to misinterpretation of CBC data. Current Interpretive Data was last revised on 2017. Imm gran pct 0.7 % [facility] Comment: Interpretive Data Percent cell count reference ranges are not reported, since discordance with absolute values may lead to misinterpretation of CBC data. Current Interpretive Data was last revised on 2017. Lymphocyte pct 11.8 % [facility] Comment: Interpretive Data Percent cell count reference ranges are not reported, since discordance with absolute values may lead to misinterpretation of CBC data. Current Interpretive Data was last revised on 2017. Monocyte pct 11.6 % [facility] Comment: Interpretive Data Percent cell count reference ranges are not reported, since discordance with absolute values may lead to misinterpretation of CBC data. Current Interpretive Data was last revised on 2017. Eosinophil pct 5.8 % [facility] Comment: Interpretive Data Percent cell count reference ranges are not reported, since discordance with absolute values may lead to misinterpretation of CBC data. Current Interpretive Data was last revised on 2017. Basophil pct 0.5 % [facility] Comment: Interpretive Data Percent cell count reference ranges are not reported, since discordance with absolute values may lead to misinterpretation of CBC data. Current Interpretive Data was last revised on 2017. Blood 04/03/2022 6:24 AM CDT 04/03/2022 6:28 AM CDT us Cruzito Cerda DO LAB BLOOD ORDERABLES Final Re sult [facility] [address] [facility] Department of Laboratories [place], [place] [id number] * (ABNORMAL) Basic metabolic panel (04/03/2022 6:24 AM CDT) Sodium 139 135 - 145 mmol/L [facility] Potassium, pl 4.3 3.3 - 4.9 mmol/L [facility] Chloride 98 97 - 110 mmol/L [facility] CO2 28 22 - 32 mmol/L [facility] Anion gap 13 2 - 15 mmol/L [facility] BUN 58(H) 8 - 25 mg/dL [facility] Creatinine 7.60(H) 0.60 - 1.10 mg/dL [facility] Glucose 93 70 - 199 mg/dL [facility] Comment: Interpretive Data Fasting glucose >/= 126 [...] 2017. Calcium 9.7 8.5 - 10.3 mg/dL [facility] Blood 04/03/2022 6:24 AM CDT 04/03/2022 6:28 AM CDT Sheridan Leroy MD LAB BLOOD ORDERABLES Samina l Result Performing Organization Address [facility] Co de Phone Number [address] [place] [address] * Protime-INR (04/03/2022 6:24 AM CDT) Pathologist [facility] PT 14.5 12.0 - 14.6 sec [facility] INR 1.1 0.9 - 1.2 [facility] Comment: Ref Range High Interpretive data Oral [...] ORDERABLES Final Re sult Performing Organization Address [facility] Co de Phone Number [address] [address] * (ABNORMAL) CBC with auto differential (04/03/2022 6:24 AM CDT) Pathologist [facility] WBC 8.6 3.8 - 9.9 K/cumm [facility] Hgb 10.0(L) 11.9 - 15.5 g/dL [facility] Hct 31.2(L) 35.6 - 45.5 % [facility] Plt 261 150 - 400 K/cumm [facility] MPV 9.6 9.1 - 12.3 fL [facility] RBC 3.09(L) 3.90 - 5.20 M/cumm [facility] MCV 101.0(H) 81.3 - 96.4 fL [facility] MCH 32.4 27.1 - 33.3 pg [facility] MCHC 32.1(L) 32.3 - 35.7 g/dL [facility] RDW CV 13.9 11.1 - 14.9 % [facility] RDW SD 51.0(H) 35.7 - 48.1 fL [facility] NRBC abs 0.00 0.00 - 0.01 K/cumm [facility] Blood 04/03/2022 6:24 AM CDT 04/03/2022 6:28 AM CDT us Cruzito Cerda DO LAB BLOOD ORDERABLES Final Re sult [facility] [address] [facility] Department [place] [address] documented in this encounter Visit Diagnoses Not on filedocumented in this encounter Administered Medications Inactive Administered Medications - up to 3 most recent administrations Medication Order MAR Action Action Date Dose Rate Site acetaminophen (TYLENOL) tablet 975 mg 975 mg (rounded from 1,000 mg), oral, Once, On Sun04/03/22 at 0630, For 1 dose, Pre-Op, Indications: Pre-Emptive AnalgesiaIndications:Pre-Emptive Analgesia Given 04/03/2022 6:28 AM CDT 975 mg Carrier Fluids for Secondary Infusion - 0.9% [...] for each episode of hypoglycemia., Indications: hypoglycemic disorderIndications:hypoglycemic disorder dextrose (GLUTOSE) 40 % gel 15 [...] Call MD for each episode of hypoglycemia. DIRECTOR TECHNICAL STATES GLUTOSE-15 CONTAINS GLUCOSE 40% W/W (50% W/V), Indications: hypoglycemic disorderIndications:hypoglycemic disorder famotidine (PEPCID) tablet 20 mg 20 mg, oral, Once, On Sun04/03/22 at 0630, For 1 dose, Pre-Op, Indications: gastroesophageal reflux diseaseIndications:gastroesophage al reflux disease Given 04/03/2022 6:28 AM CDT 20 mg sodium chloride 0.9% infusion 30 mL/hr, [...] Analgesia 0628 (Given - Provid er: Latisha Chino, RUPESH) famotidine (PEPCID) tablet 20 mg (COMPLETED) 20 mg, oral, Once, On Sun04/03/22 at 0630, For 1 dose, Pre-Op, Indications: gastroesophageal reflux disease 0628 (Given - Provid er: Latisha Chino, RUPESH) vancomycin 1250 mg/250 mL in sodium chloride 0.9% (premix) 1,250 mg (COMPLETED) 1,250 mg (rounded from 1,156.5 mg = 15 mg/kg ? 77.1 kg), intravenous, Administer over 60 Minutes, Once, On Sun04/03/22 at 0630, For 1 dose, Pre-Op, Indications: Prophylaxis, Surgical 0653 (New Bag - Prov ider: Latisha Chino, RUPESH)0741 (Given - Provider: Makenna Ceballos CRNA) Continuous Medication Order 04/01/2022 04/02/2022 04/03/2022 sodium chloride 0.9% infusion 30 mL/hr, intravenous, [...] Call MD for each episode of hypoglycemia. DIRECTOR TECHNICAL STATES GLUTOSE-15 CONTAINS GLUCOSE 40% W/W (50% [...] Call MD for each episode of hypoglycemia. DIRECTOR TECHNICAL STATES GLUTOSE-15 CONTAINS GLUCOSE 40% W/W (50% [...] Count Last Ordered Date First Ordered Date bupivacaine-EPINEPHrine (MAR APOLONIA with EPI) 0.5 %-1:200,000 preservative free injection 1 04/03/2022 dextrose (D10W) 10% bolus 250 mL 1 04/03/20 dextrose (GLUTOSE) 40 % gel 15 g 1 04/03/20 diphenhydrAMINE (BENADRYL) i njection 12.5 mg 1 04/03/2022 fentaNYL (SUBLIMAZE) preserv ative free injection 25 mcg 1 04/03/2022 glucagon injection 1 mg 1 04/03/2022 heparin 1,000 unit/mL injection 1 hydrALAZINE (APRESOLINE) injection 5 mg 1 0 04/03/2022 HYDROmorphone (DILAUDID) injection 0.2 mg 1 04/03/2022 HYDROmorphone (DILAUDID) injection 0.4 mg 1 04/03/2022 insulin lispro (HumaLOG, ADM ELOG) 100 unit/mL injection 1-5 Units 1 04/03/2022 labetaloL (NORMODYNE,TRANDAT E) injection 5 mg 1 04/03/2022 lidocaine (XYLOCAINE) 10 mg/ mL (1 %) injection 2-10 mg 1 04/03/2022 meperidine (DEMEROL) preserv ative free injection 12.5 mg 1 04/03/2022 naloxone (NARCAN) 0.4 mg/mL injection 0.04-0.4 mg 1 04/03/2022 ondansetron (ZOFRAN) injection 4 mg 1 04/03 prochlorperazine (COMPAZINE) injection 5 mg 1 04/03/2022 sodium chloride 0.9% flush 0.5-20 mL 1 03/16 sodium chloride 0.9% infusion 1 04/03/2022 Discharge Count Last Ordered Date First Orde red Date DISCHARGE PATIENT 1 04/03/2022 documented in this encounter Care Teams Felt Cutter Relationship Specialty Start Date End Date Brandie Rhoades NP [address] [place] [id number] PCP - General Nurse Practitioner 08/09/21 Mookie Dubois MD [address] [place] [id number] Referring Physician Nephrology 02/20/22 documented as of this encounter
--- OUTSIDE RECORDS SUMMARY | 2024-07-12 15:09 | XMS_ITS | Encounter Summary ---
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
--- OUTSIDE RECORDS SUMMARY | 2024-07-12 15:10 | XMS_ITS | Encounter Summary ---
Author Organization [facility] Medical Group Address [address] [place] [address] Care Team Providers Care Button Sewer Name Role Phone No, Physician Primary Care Provider [phone] Encounter Details Date Type Department Care Team (Late st Contact Info) Description 07/23/2021 Orders Only [facility] Medical Group Cardiology [address] [place] [address] Rakesh Hernández MD [address] [place] [id number] Social History Tobacco Use Types Packs/Day Years Used Date Smoking Tobacco: Never Assessed Comments Unknown Sex and Gender Information Value Date Recorded Sex Assigned at Not on file 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 Gender Identity Not on file Sexual Orientation Not on file documented as of this encounter Plan of Treatment Not on file documented as of this encounter Procedures Procedure Name Priority Date/Time Associated Diagnosis Comments CARDIOLOGY DOCUMENT SCAN Routine 07/23/2021 documented in this encounter Results * SCAN - CARDIOLOGY (07/23/2021) Anatomical Region Laterality Modality Other us Rakesh Hernández MD CV CARDIAC SERVICES PROCEDURES F inal Result documented in this encounter Visit Diagnoses Not on filedocumented in this encounter Care Teams Button Sewer Relationship Specialty Start Date End Date No, Physician PCP - General 07/17/21 08/08/21 documented as of this encounter
--- OUTSIDE RECORDS SUMMARY | 2024-07-12 15:10 | XMS_ITS | Encounter Summary ---
Author Organization [facility] Medical Group Address [address] [place] [address] Care Team Providers Care Assembler Utility Buildings Name Role Phone Brandie Rhoades NP Primary Care Provider [phone] Encounter Details Date Type Department Care Team (Latest Contact Info) Description 08/10/2021 Anticoagulation Visit [facility] Medical [facility] Cardiology [address] [place] [address] Daylin Gurrola, RUPESH Atrial fibrillation, unspecified type (HCC) (Primary Dx) Social History Tobacco Use Types Packs/Day Years Used Date Smoking Tobacco: Former Smokeless Tobacco: Never Comments Unknown Sex and Gender Information Value Date Recorded Sex Assigned at Not on file 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
--- OUTSIDE RECORDS SUMMARY | 2024-07-12 15:10 | XMS_ITS | Encounter Summary ---
Author Organization [facility] Medical Group Address [address] [facility] [address] [place] [address] Care Team Providers Care Chief Environmental Commitment Officer Name Role Phone No, Physician Primary Care Provider [phone] Encounter Details Date Type Department Care Team (Late st Contact Info) Description 07/19/2021 Orders Only [facility] Medical Group Cardiology [address] [place] [address] Oh Quiroz MD [address] [facility] [address] [place], [place] [id number] Social History Tobacco Use Types Packs/Day Years Used Date Smoking Tobacco: Never Assessed Comments Unknown Sex and Gender Information Value Date Recorded Sex Assigned at Not on file 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 Gender Identity Not on file Sexual Orientation Not on file documented as of this encounter Plan of Treatment Not on file documented as of this encounter Procedures Procedure Name Priority Date/Time Associated Diagnosis Comments CARDIOLOGY DOCUMENT SCAN Routine 07/19/2021 documented in this encounter Results * SCAN - CARDIOLOGY (07/19/2021) Anatomical Region Laterality Modality Other Jia Beard NP CV CARDIAC SERVICES PROCEDUR ES Final Result documented in this encounter Visit Diagnoses Not on filedocumented in this encounter Care Teams Chief Environmental Commitment Officer Relationship Specialty Start Date End Date No, Physician PCP - General 07/17/21 08/08/21 documented as of this encounter
--- OUTSIDE RECORDS SUMMARY | 2024-07-12 15:10 | XMS_ITS | Encounter Summary ---
Author Organization [facility] Address [address] [place] [address] Care Team Providers Care Automotive Service Manager Name Role Phone Brandie Rhoades NP Primary Care Provider [phone] Encounter Details Date Type Department Care Team (Latest Contact Info) Description 09/22/2021 Anticoagulation Visit [facility] Cardiology [address] [place] [address] Daylin Gurrola, RUPESH Atrial fibrillation, unspecified type (HCC) (Primary Dx) Social History Tobacco Use Types Packs/Day Years Used Date Smoking Tobacco: Former Smokeless Tobacco: Never Comments Unknown Sex and Gender Information Value Date Recorded Sex Assigned at Not on file 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
--- OUTSIDE RECORDS SUMMARY | 2024-07-12 15:10 | XMS_ITS | Encounter Summary ---
Author Organization [facility] Medical Group Address [address] [address] Care Team Providers Care Health Care Social Worker Name Role Phone Brandie Rhoades NP Primary Care Provider Encounter Details Date Type Department Care Team (Latest Contact Info) Description 08/31/2021 Anticoagulation Visit [facility] Medical [facility] Cardiology [facility] [phone] Irma Miller, RN Atrial fibrillation, unspecified type (HCC) (Primary Dx) Social History Tobacco Use Types Packs/Day Years Used Date Smoking Tobacco: Former Smokeless Tobacco: Never Comments Unknown Sex and Gender Information Value Date Recorded Sex Assigned at Not on file 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 PATIENT MONITOR Gender Identity Not on file Sexual Orientation Not on file documented as of this encounter Plan of Treatment Not on file documented as of this encounter Visit Diagnoses Diagnosis Atrial fibrillation, unspecified type (HCC)- Primary documented in this encounter Care Teams Health Care Social Worker Relationship Specialty Start Date End Date Brandie Rhoades NP [address] [place] [address] PCP - General Nurse Practitioner 08/09/21 documented as of this encounter
--- OUTSIDE RECORDS SUMMARY | 2024-07-12 15:10 | XMS_ITS | Encounter Summary ---
Author Organization [facility] Medical Group Address [address] [facility] [address] [place] [address] Care Team Providers Care Cigar Making Machine Operator Name Role Phone VeronaUcheBrandiegricelda Quan NP Primary Care Provider Encounter Details Date Type Department Care Team (Late st Contact Info) Description 08/15/2021 Telephone [facility] Medical [facility] Cardiology [address] [facility] [address] [place] [address] Jama Hoskins MD [address] 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 Gender Identity Not on file Sexual Orientation Not on file documented as of this encounter Ordered Prescriptions Prescription Sig Dispense Quantity Refills Last Filled Start Date End Date metoprolol tartrate (LOPRESSOR) 50 mg immediate release tablet Take 2 tablets (100 mg total) by mouth 2 (two) times a day TAKE 2 TABLETS BY MOUTH BID 180 tablet 3 08/15/2021 3 bumetanide (BUMEX) 2 mg tablet Take 1 tablet (2 mg total) by mouth daily 90 tablet 3 08/15/2021 2 documented in this encounter Miscellaneous Notes * Telephone Encounter - Mila Cardona MA - 08/15/2021 5:52 PM CST Refills approved and sent to pharmacy as requested. PULLER * Telephone Encounter - Gustavo Horta - 08/15/2021 4:29 PM CST Pt requesting refills on medication Metoprolol 50 mg BID and Bumetanide 2 mg daily,sent to [facility] [place].Thank you Contact:[phone] PULLER documented in this encounter Plan of Treatment Not on file documented as of this encounter Visit Diagnoses Not on filedocumented in this encounter Discontinued Medications Medication Sig Discontinue Reason Start Date End Da te metoprolol tartrate (LOPRESSOR) 50 mg immediate release tablet Take 100 mg by mouth 2 (two) times a day TAKE 2 TABLETS BY MOUTH BID Reorder 08/15/2021 bumetanide (BUMEX) 2 mg tablet Take 2 mg by mouth daily Reorder 08/15/2021 documented as of this encounter Care Teams Cigar Making Machine Operator Relationship Specialty Start Date End Date Brandie Rhoades NP [address] [place] [address] PCP - General Nurse Practitioner 08/09/21 documented as of this encounter
--- OUTSIDE RECORDS SUMMARY | 2024-07-12 15:10 | XMS_ITS | Encounter Summary ---
Author Organization [facility] Address [address] [place] [address] Care Team Providers Care Cake Tester Name Role Phone Brandie Rhoades NP Primary Care Provider [phone] Encounter Details Date Type Department Care Team (Latest Contact Info) Description 01/11/2022 Anticoagulation Visit [facility] Medical [facility] Cardiology [address] [place] [address] Carolyne Trujillo, RN Atrial fibrillation, unspecified type (HCC) (Primary Dx) Social History Tobacco Use Types Packs/Day Years Used Date Smoking Tobacco: Former Smokeless Tobacco: Never Comments Unknown Sex and Gender Information Value Date Recorded Sex Assigned at Not on file 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
--- OUTSIDE RECORDS SUMMARY | 2024-07-12 15:10 | XMS_ITS | Encounter Summary ---
Author Organization [facility] Medical Group Address [address] [place] [address] Care Team Providers Care Vehicle Detailer Name Role Phone No, Physician Primary Care Provider [phone] Encounter Details Date Type Department Care Team (Late st Contact Info) Description 07/21/2021 Orders Only [facility] Cardiology [address] [place] [address] Oh Quiroz MD [address] [facility] [address] [place], [place] [id number] Social History Tobacco Use Types Packs/Day Years Used Date Smoking Tobacco: Never Assessed Comments Unknown Sex and Gender Information Value Date Recorded Sex Assigned at Not on file 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 Gender Identity Not on file Sexual Orientation Not on file documented as of this encounter Plan of Treatment Not on file documented as of this encounter Procedures Procedure Name Priority Date/Time Associated Diagnosis Comments CARDIOLOGY DOCUMENT SCAN Routine 07/21/2021 documented in this encounter Results * SCAN - CARDIOLOGY (07/21/2021) Anatomical Region Laterality Modality Other Jia Beard NP CV CARDIAC SERVICES PROCEDUR ES Final Result documented in this encounter Visit Diagnoses Not on filedocumented in this encounter Care Teams Vehicle Detailer Relationship Specialty Start Date End Date No, Physician PCP - General 07/17/21 08/08/21 documented as of this encounter
--- OUTSIDE RECORDS SUMMARY | 2024-07-12 15:10 | XMS_ITS | Encounter Summary ---
Author Organization [facility] Medical [facility] Address [address] [place] [address] Care Team Providers Care Access Service Representative Name Role Phone Brandie Rhoades NP Primary Care Provider [phone] Reason for Referral * Cardiology (Routine) - Closed Specialty Diagnoses / Procedures Referred By Contac t Referred To Contact Diagnoses Dilated cardiomyopathy (CMS/HCC) (HCC) Procedures Transthoracic Echo (TTE) Limited Lydia Lemus NP [address] [address] Phone: tel: fax: [facility] Referral ID Status Reason Start Date Expiration Date Visits Re quested Visits Authorized [id number] Closed 10/06/2021 10/06/2022 1 1 ENTIONS RESERVATIONIST Reason for Visit * Reason Comments Hospital Follow Up Shortness of Breath Atrial Fibrillation Encounter Details Date Type Department Care Team (Late st Contact Info) Description 08/09/2021 2:00 PM CONVENTIONS RESERVATIONIST Office Visit [facility] Cardiology [address] [facility] [address] [address] Lydia Lemus NP [address] [facility] [address] [address] Persistent atrial fibrillation (HCC) (Primary Dx); On amiodarone therapy; Chronic anticoagulation; Dilated cardiomyopathy (CMS/HCC) (HCC); Chronic systolic congestive heart failure (CMS/HCC) (HCC); Hypertensive heart disease with chronic systolic congestive heart failure (CMS/HCC) (HCC); Chronic kidney disease, unspecified CKD stage; Lipid screening Social History Tobacco Use Types Packs/Day Years Used Date Smoking Tobacco: Former Smokeless Tobacco: Never Comments Unknown Sex and Gender Information Value Date Recorded Sex Assigned at Not on file 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 CONVENTIONS RESERVATIONIST Gender Identity Not on file Sexual Orientation Not on file documented as of this encounter Last Filed Vital Signs Vital Sign Reading Time Taken Comments Blood Pressure 130/76 08/09/2021 2:17 PM CONVENTIONS RESERVATIONIST Pulse 109 08/09/2021 2:17 PM CONVENTIONS RESERVATIONIST Temperature - - Respiratory Rate - - Oxygen Saturation 99% 08/09/2021 2:17 PM CONVENTIONS RESERVATIONIST Inhaled Oxygen Concentration - - Weight 76.9 kg (169 lb 8 oz) 08/09/2021 2:17 PM CONVENTIONS RESERVATIONIST Height 152.4 cm (5') 08/09/2021 2:17 PM CONVENTIONS RESERVATIONIST Body Mass Index 33.1 08/09/2021 2:17 PM CONVENTIONS RESERVATIONIST documented in this encounter Patient Instructions * Patient Instructions* Lydia Lemus NP - 08/09/2021 2:00 PM CONVENTIONS RESERVATIONIST We should schedule a cardioversion in the next 1-2 weeks. Please call us as soon as you talk to family and pick a date that works for you. ENTIONS RESERVATIONIST documented in this encounter Progress Notes * Lydia Lemus NP - 08/09/2021 2:00 PM CST Images from the original note were not included. [facility] Cardiology [address] [place] [address] Date of Visit: 08/09/2021 Patient ID: Dory Lynn 1960 Chief Complaint Patient presents with ??? Hospital Follow Up ??? Shortness of Breath ??? Atrial Fibrillation Dory Lynn is a 60 y.o. female who is hospitalized earlier this month with CHF and found to have a dilated cardiomyopathy, AFib with RVR and end-stage renal disease. History of Present Illness: Dory Lynn is a 60 y.o. female a past medical history of hypertension and CKD, former smoker. She presented to [facility] on 07/16/2021 with complaint of shortness of breath and lower extremity edema. She was found to be in CHF and AFib with RVR. She had a right-sided pleural effusion that required thoracentesis. She denied any chest pain or palpitations and therefore her AFib appearedasymptomatic. Dr. Hoskins met her in consultation. Echocardiogram showed moderately enlarged LV chamber with severe LV systolic dysfunction EF estimated 20-25%, severe RAY, mild RV enlargement, trace MR and mild TR. She had a LAUREEN guided cardioversion which was unsuccessful. She was then started on amiodarone. She was placed on warfarin for anticoagulation. She was also started on hemodialysis, but it was not yet apparent if she could have some recovery of renal function or would need to remain on dialysis. She was given antibiotics for suspected pneumonia. She was fitted for a LifeVest. Ultimately she was discharged on 07/30/2021. 08/09/2021 hospital follow-up with [employer] SALES CONSULTANT: This is her first encounter in our office. Her only complaint is feeling tired intermittently but not all the time. She is currently getting hemodialysis at [facility] in [place] on M,W,F. She has had some nose bleeds. She does feel sinus congestion and drainage primarily in the mornings. She denies any palpitations. She is looking for a new PCP. 12-lead ECG performed in the office today was independently interpreted by me and showed atrial fibrillation with RVR, PVC, RAD, ventricular rate 102 beats per minute. Records that I personally reviewed on the day of this visit include: (the interpretation is outlined in the HPI above) July 2021 [facility] inpatient records including cardiology consultation note from Dr. Hoskins, subsequent cardiology progress notes, echocardiogram report, LAUREEN/CV report, discharge summary, today's ECG I have also reviewed: allergies, current medications, past family history, past medical history, past social history, past surgical history and problem list Medical History: Past Medical History: Diagnosis Date ??? A-fib (CMS/HCC) (HCC) ??? Acute kidney failure, unspecified (CMS/HCC) (HCC) ??? CHF (congestive heart failure) (CMS/HCC) (HCC) ??? Hypertension ??? Pleural effusion ??? Pneumonia ??? SOB (shortness of breath) Past Surgical History: Procedure Laterality Date ??? SECTION Social History Tobacco Use ??? Smoking status: Former Smoker ??? Smokeless tobacco: Never Used Substance Use Topics ??? Alcohol use: Not on file ??? Drug use: Not Currently Family History Problem Relation Age of Onset ??? No Known Problems Mother ??? Heart attack Father Review of Systems Constitutional: Positive for malaise/fatigue. Negative for diaphoresis, fever, weight gain and weight loss. HENT: Negative for hearing loss. Eyes: Negative for visual disturbance. Cardiovascular: Negative for chest pain, claudication, dyspnea on exertion, leg swelling, orthopnea, palpitations, paroxysmal nocturnal dyspnea and syncope. Respiratory: Negative for cough, hemoptysis, shortness of breath, snoring and wheezing. Hematologic/Lymphatic: Does not bruise/bleed easily. Skin: Negative for poor wound healing and rash. Musculoskeletal: Negative for joint pain and myalgias. Gastrointestinal: Negative for heartburn, nausea and vomiting. Genitourinary: Negative for hematuria. Neurological: Negative for dizziness, headaches and light-headedness. Psychiatric/Behavioral: Negative for depression. The patient is not nervous/anxious. Vital Signs: BP 130/76 (BP Location: Right arm, Patient Position: Sitting) Pulse 109 Ht 152.4 cm (5') Wt 76.9 kg (169 lb 8 oz) SpO2 99% BMI 33.10 kg/m?? Physical Exam Constitutional: General: She is not in acute distress. Appearance: She is well-developed. HENT: Head: Normocephalic and atraumatic. Nose: Comments: Wearing a mask Eyes: General: No scleral icterus. Conjunctiva/sclera: Conjunctivae normal. Neck: Vascular: No JVD. Trachea: No tracheal deviation. Cardiovascular: Rate and Rhythm: Tachycardia present. Rhythm irregular. Heart sounds: Normal heart sounds. No murmur heard. Comments: Right chest tunneled catheter for dialysis Pulmonary: Effort: Pulmonary effort is normal. No respiratory distress. Breath sounds: Examination of the right-lower field reveals decreased breath sounds. Examination ofthe left-lower field reveals decreased breath sounds. Decreased breath sounds present. Musculoskeletal: Right lower leg: Edema present. Left lower leg: Edema present. Comments: Bilateral 1+ pitting edema extending to ankles L>R Skin: General: Skin is warm and dry. Neurological: Mental Status: She is alert and oriented to person, place, and time. Psychiatric: Mood and Affect: Mood normal. Behavior: Behavior normal. Allergies Allergen Reactions ??? Aftab Inhibitors Angioedema Current Outpatient Medications: ??? amiodarone (PACERONE) 200 mg tablet, Take 200 mg by mouth daily, Disp: , Rfl: ??? bumetanide (BUMEX) 2 mg tablet, Take 2 mg by mouth daily , Disp: , Rfl: ??? ferrous sulfate 325 mg (65 mg of elemental iron) tablet, Take 65 mg of elemental iron by mouth daily with breakfast, Disp: , Rfl: ??? losartan (COZAAR) 25 mg tablet, Take 25 mg by mouth daily, Disp: , Rfl: ??? metoprolol tartrate (LOPRESSOR) 50 mg immediate release tablet, Take 100 mg by mouth 2 (two) times a day TAKE 2 TABLETS BY MOUTH BID, Disp: , Rfl: ??? warfarin (COUMADIN) 2.5 mg tablet, Take 2.5 mg by mouth, Disp: , Rfl: No results found for: POTASSIUM, BUNSER, CREATININE, CHOL, TRIG, LDL, LDLCALC, HDL No results found for: WBC, HGB, HCT, MCV, PLT Assessment: Diagnoses and all orders for this visit: Persistent atrial fibrillation (HCC) (Primary) On amiodarone therapy Chronic anticoagulation Dilated cardiomyopathy (CMS/HCC) (HCC) - Transthoracic Echo (TTE) Limited; Future Chronic systolic congestive heart failure (CMS/HCC) (HCC) Chronic kidney disease, unspecified CKD stage Hypertensive heart disease with chronic systolic congestive heart failure (CMS/HCC) (HCC) Plan/Recommendations: She was hospitalized at the being the month and found to be in AFib with RVR although it appeared asymptomatic. She has severe RAY and a cardioversion was unsuccessful. She has now been on amiodaronefor a little over 2 weeks. Because of her cardiomyopathy, I recommend a repeat attempt at cardioversion on amiodarone. I recommend this be performed in the next 1-2 weeks to increase the likelihood of success. It would have to be arranged on a Sunday or when she is not in dialysis. The patient is going to speak with her family before scheduling so that she can arrange transportation. She will call us after she speaks with them. She is on warfarin for systemic oral anticoagulation to reduce her risk of stroke in the setting ofAFib (CHADS2 Vasc score of 3 for CHF, HTN, gender). Goal INR 2-3. I asked the nursing staff to set her up for the anticoagulation clinic and arrange INR monitoring. She has a dilated cardiomyopathy which appears nonischemic but etiology is uncertain (hypertension induced or Afib/tachycardia induced). Today she appears relatively euvolemic. Continue wearing the LifeVest. Continue current medical therapy with bumetanide, metoprolol and losartan. Once she becomesmore evident whether she will be dialysis dependent, we may consider transitioning her to Entresto (she has an allergy history to Aftab inhibitors were she developed swelling of her lips after being jeb AFTAB-inhibitor for years). Plan to repeat a limited echo in early October to reassess LV function after 3 months on medical therapy. She has CKD and currently on hemodialysis. It is still unclear if dialysis will be per minute. Continue follow-up with Nephrology (Dr. Dubois/Dr. Teague). Lipid screening performed in the office today revealed hypertriglyceridemia. Will defer addressing this at a later date. Return to the office to see Dr. Hoskins in 6-8 weeks. Call us sooner with questions or concerns. I also gave her some information for PCP in the area. My total encounter time on 08/09/2021 was 55 minutes which was spent in the activities documented inthe note. This includes time spent prior to the visit and after the visit in direct care of the patient. This time does not include time spent in any separately reportable services. 08/09/2021 SEN De Souza- Nurse Practitioner with [facility] [place] This note is dictated and transcribed using [employer] Software. Welder Tech variancesmay occur. Despite proofreading, typographical errors may occur. ENTIONS RESERVATIONIST documented in this encounter Miscellaneous Notes * Addendum Note - Dominga Diaz MA - 08/09/2021 2:00 PM CSTAddended by: DOMINGA DIAZ on: 08/11/2021 10:38 AM Modules accepted: Orders ENTIONS RESERVATIONIST documented in this encounter Plan of Treatment Not on file documented as of this encounter Procedures Procedure Name Priority Date/Time Associated Diagnosis Comments POCT LIPID PANEL Routine 08/09/2021 3:20 PM CONVENTIONS RESERVATIONIST Lipid screening ECG 12-LEAD Routine 08/09/2021 Persistent atrial fibrillation (HCC) documented in this encounter Results * TRANSTHORACIC ECHO (TTE) LIMITED/FOLLOW UP WO DOPPLER/CF WO CONTRAST (10/18/2021 2:41 PM CDT) Anatomical Region Laterality Modality Ultrasound 10/18/2021 1:13 PM CDT Narrative 10/18/2021 5:06 PM CDT [facility] Cardiology [address], [place] [address] [address], [place] [address] P:[phone] P:[phone] Echocardiographic Report Patient Name: DORY LYNN : 1960 Study Date: 10/18/2021 1:13:45 PM Gender: F Tech: Location: [place] Ref.Provider: LYDIA LEMUS Height(Cm): 152 BSA: 1.67 Weight(Kg): 70.31 Heart Rate: 94 BP: 144/94 Quality: Good Order Provider: LYDAI LEMUS Procedures: Echocardiographic Report: Transthoracic echocardiogram with complete 2D, M-Mode, and color Doppler examination. Indications: Cardiomyopathy. Measurements: 2D/M Mode Measurement ?Value ?Normal Range ? EF Mod ? 41 ? EF MM ?58 ? [ 55 - 70 ] % ? LVIDd MM ? 4.22 ? [ 3.90 - 5.30 ] cm ? LVIDs MM ? 2.93 ? [ 2.30 - 3.90 ] cm ? LVPWd MM ? 1.93 ? [ 0.60 - 1.00 ] cm ? IVSd MM ?2.11 ? [ 0.60 - 0.90 ] cm ? LA Dimension MM ?5.59 ? [ 2.70 - 3.80 ] cm ? AoR Diam MM ?3.12 ? [ 2.60 - 3.70 ] cm ? LA Volume Index ?74.00 ?[ 16.00 - 28.00 ] cc/m2 ? ACS MM ? 1.65 ? cm ? Findings: Interpretation Site: Exam was interpreted at [facility]. Left Ventricle: Moderate concentric left ventricular hypertrophy. Mild enlargement of left ventricle cavity. Mild global left ventricular systolic dysfunction. Ejection fraction is visually estimated at 45 %. Ejection fraction is measured at 41 %. Right Ventricle: Normal right ventricular size. Left Atrium: There is severe enlargement of left atrium. Right Atrium: There is severe enlargement of right atrium. Atrial Septum: Normal atrial septum. Mitral Valve: Normal appearance of the mitral valve. Mild mitral annular calcification. Aortic Valve: Aortic cusps appear mildly sclerotic. Tricuspid Valve: Normal appearance of the tricuspid valve. Pulmonic Valve: Pulmonic valve not well visualized. Pericardium: Normal pericardium with no significant pericardial effusion. Aorta: Normal aortic root. IVC: The IVC is not well visualized. Pulmonary Artery: Normal pulmonary artery size. Conclusions: Moderate concentric left ventricular hypertrophy. Mild enlargement of left ventricle cavity. Mild global left ventricular systolic dysfunction. Ejection fraction is visually estimated at 45 %. Ejection fraction is measured at 41 %. Marked biatrial enlargement. Compared with Jul LVEF is improved. Electronically Signed By: Jama Hoskins MD, [facility] 2021-10-18 17:05:58 CDT Procedure Note Jama Hoskins MD - 10/18/2021 [facility] Cardiology [address], [place] [address] [address] [facility], [place] [address] P:[phone] P:[phone] Echocardiographic Report Patient Name: DORY LYNNPatient ID: [id number] : [id number] Date: 10/18/2021 1:13:45 PM Gender: FAccession #: [id number] Tech: GMLocation: [place] Ref.Provider: LYDIA LEMUSHeight(Cm): 152 BSA: 1.67Weight(Kg): 70.31 Heart Rate: 94BP: 144/94 Quality: GoodOrder Provider: LYDIA LEMUS Procedures: Echocardiographic Report: Transthoracic echocardiogram with complete 2D, M-Mode, and color Dopplerexamination. Indications: Cardiomyopathy. Measurements: 2D/M Mode Measurement Value Normal Range EF Mod 41 EF MM 58 [ 55 - 70 ] % LVIDd MM 4.22 [ 3.90 - 5.30 ] cm LVIDs MM 2.93 [ 2.30 - 3.90 ] cm LVPWd MM 1.93 [ 0.60 - 1.00 ] cm IVSd MM 2.11 [ 0.60 - 0.90 ] cm LA Dimension MM 5.59 [ 2.70 - 3.80 ] cm AoR Diam MM 3.12 [ 2.60 - 3.70 ] cm LA Volume Index 74.00 [ 16.00 - 28.00 ] cc/m2 ACS MM 1.65 cm Findings: Interpretation Site: Exam was interpreted at [facility]. Left Ventricle: Moderate concentric left ventricular hypertrophy. Mild enlargement of leftventricle cavity. Mild global left ventricular systolic dysfunction. Ejectionfraction is visually estimated at 45 %. Ejection fraction is measured at 41 %. Right Ventricle: Normal right ventricular size. Left Atrium: There is severe enlargement of left atrium. Right Atrium: There is severe enlargement of right atrium. Atrial Septum: Normal atrial septum. Mitral Valve: Normal appearance of the mitral valve. Mild mitral annularcalcification. Aortic Valve: Aortic cusps appear mildly sclerotic. Tricuspid Valve: Normal appearance of the tricuspid valve. Pulmonic Valve: Pulmonic valve not well visualized. Pericardium: Normal pericardium with no significant pericardial effusion. Aorta: Normal aortic root. IVC: The IVC is not well visualized. Pulmonary Artery: Normal pulmonary artery size. Conclusions: Moderate concentric left ventricular hypertrophy. Mild enlargement of leftventricle cavity. Mild global left ventricular systolic dysfunction. Ejectionfraction is visually estimated at 45 %. Ejection fraction is measured at 41 %. Marked biatrial enlargement. Compared with Jul LVEF is improved. Electronically Signed By: Jama Hoskins MD, [facility] 2021-10-18 17:05:58 CDT Lydia Lemus NP CV ECHO PROCEDURES Final Result * POCT lipid panel (08/09/2021 3:20 PM CONVENTIONS RESERVATIONIST) Cholesterol, POC 127 mg/dL Comment:GLU = 107 HDL, POC 53 mg/dL Triglycerides, POC 558 mg/dL LDL Cholesterol POC N/A mg/dL Chol/HDL Ratio, POC 2.4 Non-HDL Cholesterol, POC 74 mg/dL Cholesterol Total, POC 127 mg/dL Capillary blood 08/09/2021 3 :20 PM CONVENTIONS RESERVATIONIST Lydia Lemus NP POINT OF CARE TEST ORDERA BLES Final Result * ECG 12 lead (08/09/2021) us Lydia Lemus NP ECG ORDERABLES Final Res ult documented in this encounter Visit Diagnoses Diagnosis Persistent atrial fibrillation (HCC)- Primary Atrial fibrillation On amiodarone therapy Chronic anticoagulation Encounter for long-term (current) use of anticoagulants Dilated cardiomyopathy (CMS/HCC) (HCC) Other primary cardiomyopathies Chronic systolic congestive heart failure (CMS/HCC) (HCC) Hypertensive heart disease with chronic systolic congestive heart failure (CMS/HCC) (HCC) Chronic kidney disease, unspecified CKD stage Lipid screening Screening for lipoid disorders Dilated cardiomyopathy (CMS/HCC) (HCC) Other primary cardiomyopathies documented in this encounter Historical Medications * This list may reflect changes made after this encounter. ferrous sulfate 325 mg (65 mg of elemental iron) tablet Take 65 mg of elemental iron by mouth daily with breakfast 3 amiodarone (PACERONE) 200 mg tablet Take 200 mg by mouth daily 2 warfarin (COUMADIN) 2.5 mg tablet Take 2.5 mg by mouth 2 bumetanide (BUMEX) 2 mg tablet Take 2 mg by mouth daily 2 losartan (COZAAR) 25 mg tablet Take 25 mg by mouth daily 2 metoprolol tartrate (LOPRESSOR) 50 mg immediate release tablet Take 100 mg by mouth 2 (two) times a day TAKE 2 TABLETS BY MOUTH BID 2 added in this encounter Care Teams Access Service Representative Relationship Specialty Start Date End Date Brandie Rhoades NP [address] [place] [address] PCP - General Nurse Practitioner 08/09/21 documented as of this encounter
--- OUTSIDE RECORDS SUMMARY | 2024-07-12 15:10 | XMS_ITS | Encounter Summary ---
Author Organization [facility] Address [address] [place] [address] Care Team Providers Care Exhibit Display Representative Name Role Brandie Olvera NP Primary Care Provider [phone] Encounter Details Date Type Department Care Team (Late st Contact Info) Description 08/09/2021 Telephone [facility] Cardiology [address] [place] [address] Lydia Lewis NP [address] [place] [address] Social History Tobacco Use Types Packs/Day Years Used Date Smoking Tobacco: Former Smokeless Tobacco: Never Comments Unknown Sex and Gender Information Value Date Recorded Sex Assigned at Not on file 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 PHYSICAL THERAPY ASSISTANT Gender Identity Not on file Sexual Orientation Not on file documented as of this encounter Miscellaneous Notes * Addendum Note - Ger Gurrola RN - 08/10/2021 8:35 AM CSTAddended by: GER GURROLA on: 08/10/2021 08:35 AM Modules accepted: Orders ICAL THERAPY ASSISTANT * Telephone Encounter - Ger Gurrola RN - 08/10/2021 8:30 AM PHYSICAL THERAPY ASSISTANT Called [facility] in [place] and was told they do not draw outside labs. Sending [facility] to [facility] pt requested. Will call pt today and notify her. ICAL THERAPY ASSISTANT * Telephone Encounter - Ger Gurrola RN - 08/09/2021 4:30 [address]Y ASS[address] CT requested that I educate pt on new start to warfarin. Spoke with pt and reviewed the warfarin teaching packet from the office-reviewed meds, diet, labwork, when to contact us and when to report the ED ect. Pt verbalized understanding. Pt gets dialysis sun, sun and sun at [facility] in [place]-told pt I would contact them to see if they can draw her INR levels going forward. [facility] is closed on tuesdays-will contact them tomorrow to discuss and fax them orders if ok-if not will [facility] to [facility]. Told pt I would contact her and let her know where im sending the orders. Pt will get her INR drawn this week. Seh verbalized understanding. ICAL THERAPY ASSISTANT documented in this encounter Plan of Treatment Scheduled Orders Name Type Priority Associated Diagnoses Orde r Schedule Protime-INR Lab Routine Persistent atrial fibrillation (HCC) Chronic anticoagulation weekly for 52 Occurrences starting 08/10/2021 until 08/10/2022, 8 completed documented as of this encounter Procedures Procedure Name Priority Date/Time Associated Diagnosis Comments PROTIME-INR Routine 04/12/2022 10:25 AM CDT Persistent atrial fibrillation (HCC) Chronic anticoagulation PROTIME-INR Routine 01/24/2022 10:47 AM CDT Persistent atrial fibrillation (HCC) Chronic anticoagulation PROTIME-INR Routine 01/10/2022 9:17 AM CDT Persistent atrial fibrillation (HCC) Chronic anticoagulation PROTIME-INR Routine 11/22/2021 10:03 AM CDT Persistent atrial fibrillation (HCC) Chronic anticoagulation PROTIME-INR Routine 10/20/2021 12:34 PM CDT Persistent atrial fibrillation (HCC) Chronic anticoagulation PROTIME-INR Routine 09/22/2021 10:06 AM PHYSICAL THERAPY ASSISTANT Persistent atrial fibrillation (HCC) Chronic anticoagulation PROTIME-INR Routine 08/30/2021 12:56 PM PHYSICAL THERAPY ASSISTANT Persistent atrial fibrillation (HCC) Chronic anticoagulation PROTIME-INR Routine 08/11/2021 2:44 PM PHYSICAL THERAPY ASSISTANT Persistent atrial fibrillation (HCC) Chronic anticoagulation documented in this encounter Results * (ABNORMAL) Protime-INR (04/12/2022 10:25 AM CDT) INR 1.8(H) Monalisa CastleOSCammie Garcia Comment: Reference Range ? 0.9-1.1 Moderate-intensity Warfarin Therapy 2.0-3.0 Higher-intensity Warfarin Therapy ?? 3.0-4.0 PT 17.5(H) 9.0 - 11.5 sec Monalisa Garcia Comment: For additional information, please refer to http://education.[employer]/faq/NFT883 (This link is being provided for informational/ educational purposes only.) Blood specimen (specimen) 04/12/2022 10:25 AM CDT 04/12/2022 10:25 AM CDT Lydia Lewis NP LAB BLOOD ORDERABLES Samina l Result [facility] [address] [place] [address] * (ABNORMAL) Protime-INR (01/24/2022 10:47 AM CDT) INR 2.0(H) Monalisa CastleOSCammie Garcia Comment: Reference Range ? 0.9-1.1 Moderate-intensity Warfarin Therapy 2.0-3.0 Higher-intensity Warfarin Therapy ?? 3.0-4.0 PT 19.3(H) 9.0 - 11.5 sec [facility] Comment: For additional information, please refer to http://AppMakr.[employer]/faq/GIZ382 (This link is being provided for informational/ educational purposes only.) Blood specimen (specimen) 01/24/2022 10:47 AM CDT 01/24/2022 10:48 AM CDT Lydia Avelina Joshua COORDINATOR [employer] LAB BLOOD ORDERABLES Samina l Result Performing Organization Address [facility] de Phone Number Acucar Guarani-[facility] [address] [place] [address] * (ABNORMAL) Protime-INR (01/10/2022 9:17 AM CDT) INR 1.5(H) [facility] Comment: Reference Range ? 0.9-1.1 Moderate-intensity Warfarin Therapy 2.0-3.0 Higher-intensity Warfarin Therapy ?? 3.0-4.0 PT 14.6(H) 9.0 - 11.5 sec [facility] Comment: For additional information, please refer to http://AppMak[employer] [facility]/faq/OJF927 (This link is being provided for informational/ educational purposes only.) Blood specimen (specimen) 01/10/2022 9:17 AM CDT 01/10/2022 9:17 AM CDT Lydia Lewis COORDINATOR [employer] LAB BLOOD ORDERABLES Samina l Result Performing Organization Address [facility] de Phone Number [facility] [address] [place] [address] * (ABNORMAL) Protime-INR (11/22/2021 10:03 AM CDT) INR 1.7(H) [facility]onalisa [facility] Comment: Reference Range ? 0.9-1.1 Moderate-intensity Warfarin Therapy 2.0-3.0 Higher-intensity Warfarin Therapy ?? 3.0-4.0 PT 16.7(H) 9.0 - 11.5 sec [facility] Comment: For additional information, please refer to http://[employer]/faq/XFR890 (This link is being provided for informational/ educational purposes only.) Blood specimen (specimen) 11/22/2021 10:03 AM CDT 11/22/2021 10:03 AM CDT Lydia Lewis COORDINATOR [employer] LAB BLOOD ORDERABLES Samina l Result Performing Organization Address City/[facility] Co de Phone Number Acucar Guarani-Re[facility] [address] [place] [address] * (ABNORMAL) Protime-INR (10/20/2021 12:34 PM CDT) INR 1.5(H) [facility] Comment: Reference Range ? 0.9-1.1 Moderate-intensity Warfarin Therapy 2.0-3.0 Higher-intensity Warfarin Therapy ?? 3.0-4.0 PT 15.1(H) 9.0 - 11.5 sec [facility] Comment: For additional information, please refer to http://AppMakr.[employer] [facility]/faq/IDR483 (This link is being provided for informational/ educational purposes only.) Blood specimen (specimen) 10/20/2021 12:34 PM CDT 10/20/2021 12:34 PM CDT Lydia Lewis COORDINATOR [employer] LAB BLOOD ORDERABLES Samina l Result [facility] [address] [address] * (ABNORMAL) Protime-INR (09/22/2021 10:06 AM PHYSICAL THERAPY ASSISTANT) INR 3.8(H) [facility] Comment: Reference Range ? 0.9-1.1 Moderate-intensity Warfarin Therapy 2.0-3.0 Higher-intensity Warfarin Therapy ?? 3.0-4.0 PT 34.9(H) 9.0 - 11.5 sec [facility] Comment: For additional information, please refer to http://[employer]/faq/LON876 (This link is being provided for informational/ educational purposes only.) Blood specimen (specimen) 09/22/2021 10:06 AM PHYSICAL THERAPY ASSISTANT 09/22/2021 10:06 AM PHYSICAL THERAPY ASSISTANT Lydia Lewis NP LAB BLOOD ORDERABLES Samina l Result Performing Organization Address City/[facility] Co de Phone Number [facility] Guarani-[facility] [address] [place] [address] * (ABNORMAL) Protime-INR (08/30/2021 12:56 PM PHYSICAL THERAPY ASSISTANT) INR 1.8(H) [facility] Comment: Reference Range ? 0.9-1.1 Moderate-intensity Warfarin Therapy 2.0-3.0 Higher-intensity Warfarin Therapy ?? 3.0-4.0 PT 18.0(H) 9.0 - 11.5 sec [facility] Comment: For additional information, please refer to http://[employer]/faq/DFY005 (This link is being provided for informational/ educational purposes only.) Blood specimen (specimen) 08/30/2021 12:56 PM PHYSICAL THERAPY ASSISTANT 08/30/2021 12:56 PM PHYSICAL THERAPY ASSISTANT Lydia Lewis COORDINATOR [employer] LAB BLOOD ORDERABLES Samina l Result Performing Organization Address City/[facility]/ZIP Co de Phone Number [facility] [address] [address] * (ABNORMAL) Protime-INR (08/11/2021 2:44 PM PHYSICAL THERAPY ASSISTANT) INR 1.9(H) [facility] Comment: Reference Range ? 0.9-1.1 Moderate-intensity Warfarin Therapy 2.0-3.0 Higher-intensity Warfarin Therapy ?? 3.0-4.0 PT 19.0(H) 9.0 - 11.5 sec [facility] Comment: For additional information, please refer to http://education.[employer] [facility]/faq/IYZ110 (This link is being provided for informational/ educational purposes only.) Blood specimen (specimen) 08/11/2021 2:44 PM PHYSICAL THERAPY ASSISTANT 08/11/2021 2:44 PM PHYSICAL THERAPY ASSISTANT Lydia Lewis NP LAB BLOOD ORDERABLES Samina l Result Performing Organization Address City/State/[facility] Co de Phone Number [facility] [address] [place] [address] documented in this encounter Visit Diagnoses Diagnosis Persistent atrial fibrillation (HCC)- Primary Atrial fibrillation Chronic anticoagulation Encounter for long-term (current) use of anticoagulants documented in this encounter Care Teams Exhibit Display Representative Relationship Specialty Start Date End Date Brandie Rhoades NP [address] [place] [address] PCP - General Nurse Practitioner 08/09/21 documented as of this encounter
--- OUTSIDE RECORDS SUMMARY | 2024-07-12 15:10 | XMS_ITS | Encounter Summary ---
Author Organization [facility] Address [address] [place] [address] Care Team Providers Care Welder/Fitter Name Role Phone Brandie Rhoades NP Primary Care Provider [phone] Reason for Visit * Cardiology (Routine) - Closed Specialty Diagnoses / Procedures Referred By Contac t Referred To Contact Diagnoses Dilated cardiomyopathy (CMS/HCC) (HCC) Procedures Transthoracic Echo (TTE) Limited Hilary Lemus NP [address] [address] Phone: tel: fax: [facility] Referral ID Status Reason Start Date Expiration Date Visits Re quested Visits Authorized [id number] Closed 10/06/2021 10/06/2022 1 1 Encounter Details Date Type Department Care Team (Latest Contact Info) Description 10/18/2021 2:00 PM CDT Ancillary Procedure [facility] Cardiology [address] [address] Dilated cardiomyopathy (CMS/HCC) (HCC) Social History Tobacco Use Types Packs/Day Years Used Date Smoking Tobacco: Former Smokeless Tobacco: Never Comments Unknown Sex and Gender Information Value Date Recorded Sex Assigned at Not on file 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 Gender Identity Not on file Sexual Orientation Not on file documented as of this encounter Plan of Treatment Not on file documented as of this encounter Procedures Procedure Name Priority Date/Time Associated Diagnosis Comments TRANSTHORACIC ECHO (TTE) LIMITED/FOLLOW UP WO DOPPLER/CF WO CONTRAST Routine 10/18/2021 2:41 PM CDT Dilated cardiomyopathy (CMS/HCC) (HCC) documented in this encounter Results * TRANSTHORACIC ECHO (TTE) LIMITED/FOLLOW UP WO DOPPLER/CF WO CONTRAST (10/18/2021 2:41 PM CDT) Anatomical Region Laterality Modality Ultrasound 10/18/2021 1:13 PM CDT Narrative 10/18/2021 5:06 PM CDT [facility] Cardiology [address], [place] [address] [address], [place] [address] P:[phone] P:[phone] Echocardiographic Report Patient Name: DORY LYNN : 1960 Study Date: 10/18/2021 1:13:45 PM Gender: F Tech: Location: [place] Ref.Provider: HILARY LEMUS Height(Cm): 152 BSA: 1.67 Weight(Kg): 70.31 Heart Rate: 94 BP: 144/94 Quality: Good Order Provider: HILARY LEMUS Procedures: Echocardiographic Report: Transthoracic echocardiogram with [...] Findings: Interpretation Site: Exam was interpreted at [facility]. Left Ventricle: Moderate concentric left ventricular hypertrophy. [...] improved. Electronically Signed By: Jama Hoskins MD, [facility] 2021-10-18 17:05:58 CDT Procedure Note Jama Hoskins MD - 10/18/2021 [facility] Cardiology [address], [place] [address] [address], [place] [address] P:[phone] P:[phone] Echocardiographic Report Patient Name: DORY LYNNPatient ID: [id number] : [id number] Date: 10/18/2021 1:13:45 PM Gender: FAccession #: [id number] Tech: GMLocation: [place] Ref.Provider: HILARY LEMUSHeight(Cm): 152 BSA: 1.67Weight(Kg): 70.31 Heart Rate: 94BP: 144/94 Quality: GoodOrder Provider: HILARY LEMUS Procedures: Echocardiographic Report: Transthoracic echocardiogram with [...] Findings: Interpretation Site: Exam was interpreted at [facility]. Left Ventricle: Moderate concentric left ventricular hypertrophy. [...] improved. Electronically Signed By: Jama Hoskins MD, [facility] 2021-10-18 17:05:58 CDT Hilary Lemus NP CV ECHO PROCEDURES Final Result documented in this encounter Visit Diagnoses Diagnosis Dilated cardiomyopathy (CMS/HCC) (HCC) Other primary cardiomyopathies documented in this encounter Care Teams Welder/Fitter Relationship Specialty Start Date End Date Brandie Rhoades NP [address] [place] [address] PCP - General Nurse Practitioner 08/09/21 documented as of this encounter
--- OUTSIDE RECORDS SUMMARY | 2024-07-12 15:10 | XMS_ITS | Encounter Summary ---
Author Organization [facility] Address [address] [place] [address] Care Team Providers Care Fishing Vessel Operator Name Role Phone No, Physician Primary Care Provider [phone] Encounter Details Date Type Department Care Team (Late st Contact Info) Description 08/03/2021 Telephone [facility] Cardiology [address] [place] [address] Lydia Lewis, JOSE C [address] [place] [address] Social History Tobacco Use Types Packs/Day Years Used Date Smoking Tobacco: Never Assessed Comments Unknown Sex and Gender Information Value Date Recorded Sex Assigned at Not on file 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 CLASS 1 OWNER OPERATOR Gender Identity Not on file Sexual Orientation Not on file documented as of this encounter Miscellaneous Notes * Telephone Encounter - Dominga Chowdary RN - 08/03/2021 4:21 PM CLASS 1 OWNER OPERATOR Spoke with pt, pt states she has been having small nose bleeds since starting coumadin. Advised pt to try saline nasal spray or cool mist humidifier at home for symptoms. Pt has f/u with [facility] on 08/10and would like to reschedule her appt because she has dialysis that day. Appt changed to 08/[address] S 1 OWNER OPERATOR documented in this encounter Plan of Treatment Not on file documented as of this encounter Visit Diagnoses Not on filedocumented in this encounter Care Teams Fishing Vessel Operator Relationship Specialty Start Date End Date No, Physician PCP - General 07/17/21 08/08/21 documented as of this encounter
--- OUTSIDE RECORDS SUMMARY | 2024-07-12 15:10 | XMS_ITS | Encounter Summary ---
Author Organization [facility] Address [address] [place] [address] Care Team Providers Care Diamond Sizer And Sorter Name Role Phone No, Physician Primary Care Provider [phone] Encounter Details Date Type Department Care Team (Late st Contact Info) Description 07/25/2021 Orders Only [facility] Cardiology [address] [facility] [address] [place] [address] Jama Hoskins MD [address] [place] [address] Social History Tobacco Use Types Packs/Day Years Used Date Smoking Tobacco: Never Assessed Comments Unknown Sex and Gender Information Value Date Recorded Sex Assigned at Not on file 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 Gender Identity Not on file Sexual Orientation Not on file documented as of this encounter Plan of Treatment Not on file documented as of this encounter Procedures Procedure Name Priority Date/Time Associated Diagnosis Comments CARDIOLOGY DOCUMENT SCAN Routine 07/25/2021 documented in this encounter Results * SCAN - CARDIOLOGY (07/25/2021) Anatomical Region Laterality Modality Other us Jama Hoskins MD CV CARDIAC SERVICES PROC EDURES Final Result documented in this encounter Visit Diagnoses Not on filedocumented in this encounter Care Teams Diamond Sizer And Sorter Relationship Specialty Start Date End Date No, Physician PCP - General 07/17/21 08/08/21 documented as of this encounter
--- OUTSIDE RECORDS SUMMARY | 2024-07-12 15:10 | XMS_ITS | Encounter Summary ---
Author Organization [facility] Address [address] [place] [address] Care Team Providers Care Heel Scourer Name Role Phone No, Physician Primary Care Provider [phone] Encounter Details Date Type Department Care Team (Late st Contact Info) Description 07/26/2021 Orders Only [facility] Cardiology [address] [place] [address] Rakesh Hernández MD [address] [place] [id number] Social History Tobacco Use Types Packs/Day Years Used Date Smoking Tobacco: Never Assessed Comments Unknown Sex and Gender Information Value Date Recorded Sex Assigned at Not on file 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 Gender Identity Not on file Sexual Orientation Not on file documented as of this encounter Plan of Treatment Not on file documented as of this encounter Procedures Procedure Name Priority Date/Time Associated Diagnosis Comments CARDIOLOGY DOCUMENT SCAN Routine 07/26/2021 documented in this encounter Results * SCAN - CARDIOLOGY (07/26/2021) Anatomical Region Laterality Modality Other us Rakesh Hernández MD CV CARDIAC SERVICES PROCEDURES F inal Result documented in this encounter Visit Diagnoses Not on filedocumented in this encounter Care Teams Heel Scourer Relationship Specialty Start Date End Date No, Physician PCP - General 07/17/21 08/08/21 documented as of this encounter
--- OUTSIDE RECORDS SUMMARY | 2024-07-12 15:10 | XMS_ITS | Encounter Summary ---
Author Organization [facility] Address [address] [place] [address] Care Team Providers Care Magisterial District Judge Name Role Phone No, Physician Primary Care Provider Encounter Details Date Type Department Care Team (Late st Contact Info) Description 07/18/2021 Orders Only [facility] Cardiology [address] [facility] [place] [address] Jama Hoskins MD [address] [place] [address] Social History Tobacco Use Types Packs/Day Years Used Date Smoking Tobacco: Never Assessed Comments Unknown Sex and Gender Information Value Date Recorded Sex Assigned at Not on file 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 Gender Identity Not on file Sexual Orientation Not on file documented as of this encounter Plan of Treatment Not on file documented as of this encounter Procedures Procedure Name Priority Date/Time Associated Diagnosis Comments CARDIOLOGY DOCUMENT SCAN Routine 07/18/2021 documented in this encounter Results * SCAN - CARDIOLOGY (07/18/2021) Anatomical Region Laterality Modality Other us Jama Hoskins MD CV CARDIAC SERVICES PROC EDURES Final Result documented in this encounter Visit Diagnoses Not on filedocumented in this encounter Care Teams Magisterial District Judge Relationship Specialty Start Date End Date No, Physician PCP - General 07/17/21 08/08/21 documented as of this encounter
--- OUTSIDE RECORDS SUMMARY | 2024-07-12 15:10 | XMS_ITS | Encounter Summary ---
Author Organization [facility] Address [address] [place] [address] Care Team Providers Care Pick Up Truck Driver Name Role Phone Brandie Rhoades NP Primary Care Provider Encounter Details Date Type Department Care Team (Latest Contact Info) Description 11/23/2021 Anticoagulation Visit [facility] Cardiology [address] [place] [address] Dominga Chowdary, RUPESH Atrial fibrillation, unspecified type (HCC) (Primary Dx) Social History Tobacco Use Types Packs/Day Years Used Date Smoking Tobacco: Former Smokeless Tobacco: Never Comments Unknown Sex and Gender Information Value Date Recorded Sex Assigned at Not on file 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 ADDICTIONS THERAPIST Gender Identity Not on file Sexual Orientation Not on file documented as of this encounter Plan of Treatment Not on file documented as of this encounter Visit Diagnoses Diagnosis Atrial fibrillation, unspecified type (HCC)- Primary documented in this encounter Care Teams Pick Up Truck Driver Relationship Specialty Start Date End Date Brandie Rhoades NP [address] [place] [address] PCP - General Nurse Practitioner 08/09/21 documented as of this encounter
--- OUTSIDE RECORDS SUMMARY | 2024-07-12 15:10 | XMS_ITS | Encounter Summary ---
Author Organization [facility] Address [address] [place] [address] Care Team Providers Care Glass Block Installer Name Role Phone VeronaUcheBrandiegricelda Quan NP Primary Care Provider [phone] Encounter Details Date Type Department Care Team (Late st Contact Info) Description 08/29/2021 Telephone [facility] Cardiology [address] [facility] [address] [facility] [address] [facility] [address] [place] [address] Jama Hoskins MD [address] [place] [address] Social History Tobacco Use Types Packs/Day Years Used Date Smoking Tobacco: Former Smokeless Tobacco: Never Comments Unknown Sex and Gender Information Value Date Recorded Sex Assigned at Not on file 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 BUNDLE TIER Gender Identity Not on file Sexual Orientation Not on file documented as of this encounter Ordered Prescriptions Prescription Sig Dispense Quantity Refills Last Filled Start Date End Date warfarin (COUMADIN) 2.5 mg tablet Take 1 tablet (2.5 mg total) by mouth daily 30 tablet 1 08/29/2021 09/27/2021 losartan (COZAAR) 25 mg tablet Take 1 tablet (25 mg total) by mouth daily 30 tablet 1 08/29/2021 10/24/2021 documented in this encounter Miscellaneous Notes * Telephone Encounter - Jacqui Shen MA - 08/29/2021 3:48 PM BUNDLE TIER Refills sent to the pharmacy until appointment in September LE TIER * Telephone Encounter - Dimitri Taylor - 08/29/2021 3:16 PM CST Pt requesting refill for Warfarin 2.5 mg and Losartan 25 mg sent to [facility] pharmacy in [place]. Contact: LE TIER documented in this encounter Plan of Treatment Not on file documented as of this encounter Visit Diagnoses Not on filedocumented in this encounter Discontinued Medications Medication Sig Discontinue Reason Start Date End Da te losartan (COZAAR) 25 mg tablet Take 25 mg by mouth daily Reorder 08/29/2021 warfarin (COUMADIN) 2.5 mg tablet Take 2.5 mg by mouth Reorder 08/29/2021 documented as of this encounter Care Teams Glass Block Installer Relationship Specialty Start Date End Date Brandie Rhoades NP [address] [place] [address] PCP - General Nurse Practitioner 08/09/21 documented as of this encounter
--- OUTSIDE RECORDS SUMMARY | 2024-07-12 15:10 | XMS_ITS | Encounter Summary ---
Author Organization [facility] Address [address] [place] [address] Care Team Providers Care Dentist/Owner Name Role Phone Brandie Rhoades NP Primary Care Provider Encounter Details Date Type Department Care Team (Latest Contact Info) Description 08/12/2021 Anticoagulation Visit [facility] Cardiology [address] [place] [address] Irma Miller, RN Atrial fibrillation, unspecified type (HCC) (Primary Dx) Social History Tobacco Use Types Packs/Day Years Used Date Smoking Tobacco: Former Smokeless Tobacco: Never Comments Unknown Sex and Gender Information Value Date Recorded Sex Assigned at Not on file 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
--- OUTSIDE RECORDS SUMMARY | 2024-07-12 15:10 | XMS_ITS | Encounter Summary ---
Author Organization [facility] Address [address] [place] [address] Care Team Providers Care Critical Care Cns Name Role Phone No, Physician Primary Care Provider [phone] Encounter Details Date Type Department Care Team (Late st Contact Info) Description 07/22/2021 Orders Only [facility] Cardiology [address] [place] [address] Oh Quiroz MD [address] [facility] [address] [place], [place] [id number] Social History Tobacco Use Types Packs/Day Years Used Date Smoking Tobacco: Never Assessed Comments Unknown Sex and Gender Information Value Date Recorded Sex Assigned at Not on file 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 Gender Identity Not on file Sexual Orientation Not on file documented as of this encounter Plan of Treatment Not on file documented as of this encounter Procedures Procedure Name Priority Date/Time Associated Diagnosis Comments CARDIOLOGY DOCUMENT SCAN Routine 07/22/2021 documented in this encounter Results * SCAN - CARDIOLOGY (07/22/2021) Anatomical Region Laterality Modality Other hO Quiroz MD CV CARDIAC SERVICES PROC EDURES Final Result documented in this encounter Visit Diagnoses Not on filedocumented in this encounter Care Teams Critical Care Cns Relationship Specialty Start Date End Date No, Physician PCP - General 07/17/21 08/08/21 documented as of this encounter
--- OUTSIDE RECORDS SUMMARY | 2024-07-12 15:10 | XMS_ITS | Encounter Summary ---
Author Organization [facility] Address [address] [place] [address] Care Team Providers Care Piston Maker Name Role Phone Brandie Rhoades NP Primary Care Provider Encounter Details Date Type Department Care Team (Latest Contact Info) Description 10/21/2021 Anticoagulation Visit [facility] Cardiology [address] [place] [address] Daylin Gurrola, RUPESH Atrial fibrillation, unspecified type (HCC) (Primary Dx) Social History Tobacco Use Types Packs/Day Years Used Date Smoking Tobacco: Former Smokeless Tobacco: Never Comments Unknown Sex and Gender Information Value Date Recorded Sex Assigned at Not on file 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
--- OUTSIDE RECORDS SUMMARY | 2024-07-12 15:10 | XMS_ITS | Encounter Summary ---
Author Organization [facility] Address [address] [place] [address] Care Team Providers Care Human Capital Consultant Name Role Phone No, Physician Primary Care Provider [phone] Encounter Details Date Type Department Care Team (Late st Contact Info) Description 07/17/2021 Orders Only [facility] Cardiology [address] [facility] [address] [place] [address] Jama Hoskins MD [address] [place] [address] Social History Tobacco Use Types Packs/Day Years Used Date Smoking Tobacco: Never Assessed Comments Unknown Sex and Gender Information Value Date Recorded Sex Assigned at Not on file 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 Gender Identity Not on file Sexual Orientation Not on file documented as of this encounter Plan of Treatment Not on file documented as of this encounter Procedures Procedure Name Priority Date/Time Associated Diagnosis Comments CARDIOLOGY DOCUMENT SCAN Routine 07/17/2021 documented in this encounter Results * SCAN - CARDIOLOGY (07/17/2021) Anatomical Region Laterality Modality Other us Jama Hoskins MD CV CARDIAC SERVICES PROC EDURES Final Result documented in this encounter Visit Diagnoses Not on filedocumented in this encounter Care Teams Human Capital Consultant Relationship Specialty Start Date End Date No, Physician PCP - General 07/17/21 08/08/21 documented as of this encounter
--- OUTSIDE RECORDS SUMMARY | 2024-07-12 15:10 | XMS_ITS | Encounter Summary ---
Author Organization [facility] Address [address] [place] [address] Care Team Providers Care Clerical Support Name Role Phone VeronaBrandie Avelina WOODALL Primary Care Provider [phone] Encounter Details Date Type Department Care Team (Late st Contact Info) Description 09/15/2021 Telephone [facility] Cardiology [address] [place] [address] Jama Hoskins MD [address] [facility] [address] [place] [address] Social History Tobacco Use Types Packs/Day Years Used Date Smoking Tobacco: Former Smokeless Tobacco: Never Comments Unknown Sex and Gender Information Value Date Recorded Sex Assigned at Not on file 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 GATHERING TECHNICIAN * Telephone Encounter - Taylor Mosley - 09/15/2021 1:13 PM CST Pt requesting refill for Amiodarone 200 mg. Contact: GATHERING TECHNICIAN documented in this encounter Plan of Treatment Not on file documented as of this encounter Visit Diagnoses Not on filedocumented in this encounter Discontinued Medications Medication Sig Discontinue Reason Start Date End Da te amiodarone (PACERONE) 200 mg tablet Take 200 mg by mouth daily Reorder 09/15/2021 documented as of this encounter Care Teams Clerical Support Relationship Specialty Start Date End Date Verona, Brandie Quan NP [address] [place] [id number] PCP - General Nurse Practitioner 08/09/21 documented as of this encounter
--- OUTSIDE RECORDS SUMMARY | 2024-07-12 15:10 | XMS_ITS | Encounter Summary ---
Author Organization [facility] Address [address] [place] [address] Care Team Providers Care Air Traffic Control Equipment Repairer Name Role Phone RhoadesUcheBrandiegricelda Quan NP Primary Care Provider Reason for Visit * Reason Comments Atrial Fibrillation 2 month fu Encounter Details Date Type Department Care Team (Latest Contact Info) Description 09/22/2021 10:45 AM CAGE UNLOADER Office Visit [facility] Cardiology [address] [facility] [address] [place] [address] Jama Hoskins MD [address] [facility] [address] [place] [address] Dilated cardiomyopathy (CMS/HCC) (HCC) (Primary Dx) Social History Tobacco Use Types Packs/Day Years Used Date Smoking Tobacco: Former Smokeless Tobacco: Never Comments Unknown Sex and Gender Information Value Date Recorded Sex Assigned at Not on file 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 CAGE 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 Gender Identity Not on file Sexual Orientation Not on file documented as of this encounter Last Filed Vital Signs Vital Sign Reading Time Taken Comments Blood Pressure 120/76 09/22/2021 10:35 AM CAGE UNLOADER Pulse 96 09/22/2021 10:35 AM CAGE UNLOADER Temperature - - Respiratory Rate - - Oxygen Saturation 98% 09/22/2021 10:35 AM CAGE UNLOADER Inhaled Oxygen Concentration - - Weight 70.3 kg (155 lb) 09/22/2021 10:35 AM CAGE UNLOADER Height 152.4 cm (5') 09/22/2021 10:35 AM CAGE UNLOADER Body Mass Index 30.27 09/22/2021 10:35 AM CAGE UNLOADER documented in this encounter Progress Notes * Jama Hoskins MD - 09/22/2021 10:45 AM CST [facility] FOLLOW UP 09/22/2021 Dory Lynn is a 60 y.o. female who presents for follow up of atrial fibrillation and cardiomyopathy. This is a patient that was 1st seen in July of 2021 in the hospital at [place] when she presented with dyspnea. She was [...] rested in having another cardioversion procedure done. She presents to see me in the office today. By exam and EKG she still is in atrial fibrillation with a controlled heart rate of 81. She says she is feeling much better and is not experiencing any problems with shortness of breath lower extremity swelling. Had a long discussion with the patient about the fact that she is choosing to remain in chronic atrial fibrillation. She does have an echocardiogram scheduled 1st part of next month to assess her ejection fraction. She still is compliant with the rest of her medications and she is compliant with her life vest. REVIEW OF SYSTEMS General ROS: negative for [...] and rash HOME MEDICATIONS Current Outpatient Medications: ??? amiodarone (PACERONE) 200 mg tablet, Take 1 tablet (200 mg total) by mouth daily, Disp: 90 tablet, Rfl: 0 ??? bumetanide (BUMEX) 2 mg tablet, Take 1 tablet (2 mg total) by mouth daily, Disp: 90 tablet, Rfl: 3 ??? ferrous sulfate 325 mg (65 mg of elemental iron) tablet, Take 65 mg of elemental iron by mouth daily with breakfast, Disp: , Rfl: ??? losartan (COZAAR) 25 mg tablet, Take 1 tablet (25 mg total) by mouth daily, Disp: 30 tablet, Rfl: 1 ??? metoprolol tartrate (LOPRESSOR) 50 mg immediate release tablet, Take 2 tablets (100 mg total) by mouth 2 (two) times a day TAKE 2 TABLETS BY MOUTH BID, Disp: 180 tablet, Rfl: 3 ??? warfarin (COUMADIN) 2.5 mg tablet, Take 1 tablet (2.5 mg total) by mouth daily, Disp: 30 tablet, Rfl: 1 LABS AND OTHER DIAGNOSTIC TESTS No results found for: CHOL No results found for: HDL No results found for: LDLCALC No results found for: TRIG No results found for: CHOLHDL No results found for: WBC, HGB, HCT, MCV, PLT No lab exists for component: LABALBU PHYSICAL EXAM Vitals BP 120/76 (BP Location: Right arm, Patient Position: Sitting) Pulse 96 Ht 152.4 cm (5') Wt 70.3 kg (155 lb) SpO2 98% BMI 30.27 kg/m?? Physical Examination: General appearance - alert, [...] fibrillation End-stage renal disease requiring hemodialysis PLAN/RECOMMENDATIONS Echocardiogram is scheduled the 1st week of October to determine if she can return her LifeVest I will see her later in the month of October to discuss those decisions and discuss whether ongoing amiodarone treatment is going to be indicated since she is making the decision to Accept chronic atrial fibrillation since she does not wish to be cardioverted Jama Hoskins MD UNLOADER documented in this encounter Miscellaneous Notes * Addendum Note - Kalyan Shen MA - 09/22/2021 10:45 AM CSTAddended by: KALYAN SHEN on: 09/22/2021 02:25 PM Modules accepted: Orders UNLOADER documented in this encounter Plan of Treatment Not on file documented as of this encounter Procedures Procedure Name Priority Date/Time Associated Diagnosis Comments ECG 12-LEAD Routine 09/22/2021 Dilated cardiomyopathy (CMS/HCC) (HCC) documented in this encounter Results * ECG 12 lead (09/22/2021) us Jama Hoskins MD ECG ORDERABLES Final Re sult documented in this encounter Visit Diagnoses Diagnosis Dilated cardiomyopathy (CMS/HCC) (HCC)- Primary Other primary cardiomyopathies documented in this encounter Care Teams Air Traffic Control Equipment Repairer Relationship Specialty Start Date End Date Rhoades, Brandie Quan NP [address] [place], [place] [id number] PCP - General Nurse Practitioner 08/09/21 documented as of this encounter
--- OUTSIDE RECORDS SUMMARY | 2024-07-12 15:10 | XMS_ITS | Encounter Summary ---
Author Organization [facility] Address [address] [place] [address] Care Team Providers Care Archives Director Name Role Phone No, Physician Primary Care Provider [phone] Encounter Details Date Type Department Care Team (Late st Contact Info) Description 07/28/2021 Orders Only [facility] Cardiology [address] [place] [phone] Belkis Estrada MD [address] [place] [address] Social History Tobacco Use Types Packs/Day Years Used Date Smoking Tobacco: Never Assessed Comments Unknown Sex and Gender Information Value Date Recorded Sex Assigned at Not on file 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 Gender Identity Not on file Sexual Orientation Not on file documented as of this encounter Plan of Treatment Not on file documented as of this encounter Procedures Procedure Name Priority Date/Time Associated Diagnosis Comments CARDIOLOGY DOCUMENT SCAN Routine 07/28/2021 documented in this encounter Results * SCAN - CARDIOLOGY (07/28/2021) Anatomical Region Laterality Modality Other Jia Beard NP CV CARDIAC SERVICES PROCEDUR ES Final Result documented in this encounter Visit Diagnoses Not on filedocumented in this encounter Care Teams Archives Director Relationship Specialty Start Date End Date No, Physician PCP - General 07/17/21 08/08/21 documented as of this encounter
--- OUTSIDE RECORDS SUMMARY | 2024-07-12 15:10 | XMS_ITS | Encounter Summary ---
Author Organization [facility] Address [address] [place] [address] Care Team Providers Care Business Editor Name Role Phone Brandie Rhoades NP Primary Care Provider Encounter Details Date Type Department Care Team (Latest Contact Info) Description 01/25/2022 Anticoagulation Visit [facility] Cardiology [address] [place] [address] Dominga Chowdary, RUPESH Atrial fibrillation, unspecified type (HCC) (Primary Dx) Social History Tobacco Use Types Packs/Day Years Used Date Smoking Tobacco: Former Smokeless Tobacco: Never Comments Unknown Sex and Gender Information Value Date Recorded Sex Assigned at Not on file 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
--- OUTSIDE RECORDS SUMMARY | 2024-07-12 15:10 | XMS_ITS | Encounter Summary ---
Author Organization [facility] Address [address] [facility] [address] [place] [address] Care Team Providers Care Gluer Machine Operator Name Role Phone Brandie Rhoades NP Primary Care Provider [phone] Mokoie Dubois MD Unavailable [phone] Reason for Visit * Reason Comments Follow-up Encounter Details Date Type Department Care Team (Late st Contact Info) Description 02/20/2022 10:30 AM CDT Office Visit 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 Gender Identity Not on file Sexual Orientation Not on file documented as of this encounter Last Filed Vital Signs Vital Sign Reading Time Taken Comments Blood Pressure 132/82 02/20/2022 10:59 AM CDT Pulse 80 02/20/2022 10:59 AM CDT Temperature - - Respiratory Rate - - Oxygen Saturation 97% 02/20/2022 10:59 AM CDT Inhaled Oxygen Concentration - - Weight 77.1 kg (170 lb) 02/20/2022 10:59 AM CDT Height 152.4 cm (5') 02/20/2022 10:59 AM CDT Body Mass Index 33.2 02/20/2022 10:59 AM CDT documented in this encounter Patient Instructions * Patient Instructions* Lydia Lewis NP - 02/20/2022 10:30 AM CDT Stop amiodarone 1 week after dialysis catheter surgery (around ) Your next follow up visit with Dr. Hoskins will be 4-5 weeks later so we can check your heart rate once the amiodarone is out of your system. documented in this encounter Ordered Prescriptions Prescription Sig Dispense Quantity Refills Last Filled Start Date End Date losartan (COZAAR) 25 mg tabletIndications:Di lated cardiomyopathy (CMS/HCC) (HCC) Take 1 tablet (25 mg total) by mouth daily 90 tablet 3 02/20/2022 2 warfarin (COUMADIN) 2.5 mg tabletIndications:Pe rsistent atrial fibrillation (HCC) TAKE 1 OR 1/2 (ONE & ONE-HALF) TABLETS BY MOUTH ONCE DAILY as directed 150 tablet 3 02/20/2022 3 amiodarone (PACERONE) 200 mg tabletIndications:Pe rsistent atrial fibrillation (HCC) Take 1 tablet (200 mg total) by mouth daily 90 tablet 02/20/2022 2 documented in this encounter Progress Notes * Lydia Lewis NP - 02/20/2022 10:30 AM CDT Images from the original note were not included. [facility] Cardiology [address] [place] [address] Date of Visit: 02/20/2022 Patient ID: Dory Lynn 1960 Chief Complaint Patient presents with ??? Follow-up Dory Lynn is a 61 y.o. female who is an established patient of Dr. Hoskins with a history ofatrial fibrillation and cardiomyopathy returning to the office for follow-up after having an echocardiogram repeated. History of Present Illness: Dory Lynn is a 61 y.o. female who presents for follow up of atrial fibrillation and cardiomyopathy. This is a patient that was 1st seen in July of 2021 in the hospital at [place] when she presented with dyspnea. She was [...] her life vest. 02/20/2022 office visit with DISPENSER OPERATOR: After the last visit she came back [...] dialysis through a tunneled chest wall catheter. Records that I personally reviewed on the day of this visit include: (the interpretation is outlined in the HPI above) 09/22/[address] Hoskins, 10/18/2021 echocardiogram report I have also reviewed: allergies, current medications, [...] Smoker ??? Smokeless tobacco: Never Used Substance and Sexual Activity ??? Drug use: Not Currently ??? Sexual activity: None Alcohol Use: Not on file Family History Problem Relation Age of Onset [...] Negative for joint pain and myalgias. Gastrointestinal: Positive for flatus. Negative for heartburn, nausea and vomiting. Genitourinary: Negative for hematuria. Neurological: Negative for dizziness, headaches and light-headedness. Psychiatric/Behavioral: Negative for depression. The patient is not nervous/anxious. Vital Signs: BP 132/82 (BP Location: Left arm, Patient Position: Sitting) Pulse 80 Ht 152.4 cm (5') Wt 77.1 kg (170 lb) SpO2 97% BMI 33.20 kg/m?? Physical Exam Constitutional: General: She is not in acute distress. Appearance: She is well-developed. HENT: Head: Normocephalic and atraumatic. Nose: Comments: Wearing a mask Eyes: General: No scleral icterus. Conjunctiva/sclera: Conjunctivae normal. Neck: Vascular: No JVD. Trachea: No tracheal deviation. Cardiovascular: Rate and Rhythm: Normal rate. Rhythm irregular. Heart sounds: Normal heart sounds. No murmur heard. Comments: Rate 84 bpm Pulmonary: Effort: Pulmonary effort is normal. No respiratory distress. Breath sounds: Normal breath sounds. Chest: Comments: Right chest tunneled dialysis cath covered with dry dressing Musculoskeletal: Right lower leg: No edema. Left lower leg: No edema. Skin: General: Skin is warm and dry. Neurological: Mental Status: She is alert and oriented to person, place, and time. Psychiatric: Mood and Affect: Mood normal. Behavior: Behavior normal. Allergies Allergen Reactions ??? Aftab Inhibitors Angioedema ??? Azithromycin Agitation Current Outpatient Medications: ??? bumetanide (BUMEX) 2 mg tablet, Take 1 tablet (2 mg total) by mouth daily, Disp: 90 tablet, Rfl: 3 ??? eplerenone (INSPRA) 50 mg tablet, Take 50 mg by mouth daily, Disp: , Rfl: ??? ferrous sulfate 325 mg (65 mg of elemental iron) tablet, Take 65 mg of elemental iron by mouth daily with breakfast, Disp: , Rfl: ??? furosemide (LASIX) 80 mg tablet, TAKE 1 TABLET BY MOUTH ONCE DAILY ON NON- DIALYSIS DAYS, Disp: , Rfl: ??? metoprolol tartrate (LOPRESSOR) 50 mg immediate release tablet, Take 2 tablets (100 mg total) by mouth 2 (two) times a day TAKE 2 TABLETS BY MOUTH BID, Disp: 180 tablet, Rfl: 3 ??? Jennifer-Silvia 0.8 mg tablet, Take by mouth daily, Disp: , Rfl: ??? sevelamer (RENVELA) 800 mg tablet, TAKE 2 TABLETS BY MOUTH WITH MEALS AND 1 TABLET WITH SNACKS,Disp: , Rfl: ??? amiodarone (PACERONE) 200 mg tablet, Take 1 tablet (200 mg total) by mouth daily, Disp: 90 tablet, Rfl: 0 ??? losartan (COZAAR) 25 mg tablet, Take 1 tablet (25 mg total) by mouth daily, Disp: 90 tablet, Rfl: 3 ? ? warfarin (COUMADIN) 2.5 mg tablet, TAKE 1 OR 1/2 (ONE & ONE-HALF) TABLETS BY MOUTH ONCE DAILY as directed, Disp: 150 tablet, Rfl: 3 No results found for: POTASSIUM, BUNSER, CREATININE, CHOL, TRIG, LDL, LDLCALC, HDL No results found for: WBC, HGB, HCT, MCV, PLT Assessment: Diagnoses and all orders for this visit: Persistent atrial fibrillation (HCC) (Primary) - amiodarone (PACERONE) 200 mg tablet; Take 1 tablet (200 mg total) by mouth daily - warfarin (COUMADIN) 2.5 mg tablet; TAKE 1 OR 1/2 (ONE & ONE-HALF) TABLETS BY MOUTH ONCE DAILYas directed Dilated cardiomyopathy (CMS/HCC) (HCC) - losartan (COZAAR) 25 mg tablet; Take 1 tablet (25 mg total) by mouth daily Plan/Recommendations: Atrial fibrillation is asymptomatic. Currently her heart rate is controlled with the metoprolol andamiodarone. To avoid possibility of side effects with long- term amiodarone use, I recommend stopping the amiodarone and reassessing her heart rate for control at her next visit. However, since she isgoing to have peritoneal dialysis catheter inserted next month I advise waiting till after this procedure to stop the amiodarone. This means she will stop it the last week in March and then I will bring her back in the office for follow-up with Dr. Hoskins 4-5 weeks later and her heart rate can be reassessed at this visit. She should continue the metoprolol and warfarin the same. Cardiomyopathy improved when her echo was read checked in October. Today she appears compensated. Continue losartan and metoprolol. She is under the care of Dr. Dubois for her end-stage renal disease. I notice that she is taking both furosemide and bumetanide. She takes the bumetanide daily (this was started when she was hospitalized in July for heart failure) and now takes the furosemide on non dialysis days. I will reach out to Dr. Dubois to clarify this to see if we should stop 1 of these. 02/20/2022 SEN De Souza- Nurse Practitioner with [facility] This note is dictated and transcribed using Infrafone Direct Software. Factory Laborer variancesmay occur. Despite proofreading, typographical errors may occur. documented in this encounter Plan of Treatment Not on file documented as of this encounter Visit Diagnoses Diagnosis Persistent atrial fibrillation (HCC)- Primary Atrial fibrillation Dilated cardiomyopathy (CMS/HCC) (HCC) Other primary cardiomyopathies ESRD (end stage renal disease) on dialysis (HCC) End stage renal disease documented in this encounter Discontinued Medications Medication Sig Discontinue Reason Start Date End Da te amiodarone (PACERONE) 200 mg tablet Take 1 tablet by mouth once daily 12/08/2021 02/20/2022 losartan (COZAAR) 25 mg tablet Take 1 tablet by mouth once daily Reorder 01/27/2022 02/20/2022 warfarin (COUMADIN) 2.5 mg tablet TAKE 1 & 1/2 (ONE & ONE-HALF) TABLETS BY MOUTH ONCE DAILY Reorder 02/09/2022 02/20/2022 documented as of this encounter Historical Medications * This list may reflect changes made after this encounter. sevelamer (RENVELA) 800 mg tablet Take 1 tablet (800 mg total) by mouth 3 (three) times a day with meals 01/02/2022 furosemide (LASIX) 80 mg tablet Take 1 tablet (80 mg total) by mouth every evening 02/08/2022 Jennifer-Silvia 0.8 mg tablet Take 0.8 mg by mouth daily 11/18/2021 eplerenone (INSPRA) 50 mg tablet Take 0.5 tablets (25 mg total) by mouth daily 01/16/2022 added in this encounter Care Teams Gluer Machine Operator Relationship Specialty Start Date End Date Brandie Rhoades NP [address] [place] [address] PCP - General Nurse Practitioner 08/09/21 Mookie Dubois MD [address] [place] [address] Referring Physician Nephrology 02/20/22 documented as of this encounter
--- OUTSIDE RECORDS SUMMARY | 2024-07-12 15:10 | XMS_ITS | Encounter Summary ---
Author Organization [facility] Address [address] [facility] [address] [place] [address] Care Team Providers Care Vacuum Cleaner Repair Person Name Role Phone No, Physician Primary Care Provider [phone] Encounter Details Date Type Department Care Team (Late st Contact Info) Description 07/18/2021 Orders Only [facility] Cardiology [address] [place] [address] Oh Quiroz MD [address] [facility] [address] [place], [place] [id number] Social History Tobacco Use Types Packs/Day Years Used Date Smoking Tobacco: Never Assessed Comments Unknown Sex and Gender Information Value Date Recorded Sex Assigned at Not on file 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 Gender Identity Not on file Sexual Orientation Not on file documented as of this encounter Plan of Treatment Not on file documented as of this encounter Procedures Procedure Name Priority Date/Time Associated Diagnosis Comments CARDIOLOGY DOCUMENT SCAN Routine 07/18/2021 documented in this encounter Results * SCAN - CARDIOLOGY (07/18/2021) Anatomical Region Laterality Modality Other Jia Beard NP CV CARDIAC SERVICES PROCEDUR ES Final Result documented in this encounter Visit Diagnoses Not on filedocumented in this encounter Care Teams Vacuum Cleaner Repair Person Relationship Specialty Start Date End Date No, Physician PCP - General 07/17/21 08/08/21 documented as of this encounter
--- OUTSIDE RECORDS SUMMARY | 2024-07-12 15:10 | XMS_ITS | Encounter Summary ---
Author Organization [facility] Address [address] [facility] [address] [place] [address] Care Team Providers Care Carbon Dioxide Operator Name Role Phone Brandie Rhoades NP Primary Care Provider Encounter Details Date Type Department Care Team (Late st Contact Info) Description 10/19/2021 Telephone [facility] Cardiology [address] [place] [address] Jama Hoskins MD [address] [place] [address] Social History Tobacco Use Types Packs/Day Years Used Date Smoking Tobacco: Former Smokeless Tobacco: Never Comments Unknown Sex and Gender Information Value Date Recorded Sex Assigned at Not on file 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 documented in this encounter Plan of Treatment Not on file documented as of this encounter Visit Diagnoses Not on filedocumented in this encounter Care Teams Carbon Dioxide Operator Relationship Specialty Start Date End Date Brandie Rhoades NP [address] [place] [address] PCP - General Nurse Practitioner 08/09/21 documented as of this encounter
--- OUTSIDE RECORDS SUMMARY | 2024-07-12 15:10 | XMS_ITS ---
Author Organization [facility] [address] Address [address] [place] [address] Care Team Providers Care Vibration Analyst Name Role Phone Brandie Rhoades NP Primary Care Provider [phone] Mookie Dubois MD Unavailable [phone] Abigail Dougherty RN Unavailable [phone] Jama Hoskins MD Unavailable [phone] Transplant Episode Kidney Candidate [facility] ([place], [place]) - [facility] Evaluation began on 02/20/2024 Marked as Active on 02/20/2024 Reason: Evaluation - Standard Kidney CoordinatorAbigail Dougherty RN Fax: N/A Email: N/A Scores Score Value Updated Exceptions/Reas ons CPRA Not available EPTS (Calc) 48 07/12/2024 Care Team Name Role Phone Fax Email Abigail Dougherty RN Kidney Coordinator [phone] N/A N/A Mookie Dubois MD Referring Physician [phone] N/A Gladys Charlton Tail Board Man [phone] N/A N/A Annalise Mays Primary Mold Finisher N/A N/A N/A Events Pre-Transplant Referred: 02/12/2024 Evaluation began: 02/20/2024 Dialysis History Dialysis History Start End Type Comments Center 09/30/2021 Peritoneal [facility] Dialysis [facility] Information Center Phone Fax Address [facility] [phone] [address] [facility] [address] [facility] [address]
--- OUTSIDE RECORDS SUMMARY | 2024-07-12 16:42 | XMS_ITS | Clinical Summary ---
Author Organization [facility] Address [address] [place] [address] Care Team Providers Care Cavalry Scout Name Role Phone Unavailable Primary Care Provider Unavailabl e Source Comments [facility],non-owned Affiliates and Associated Physician Practices is amultiple site organization consisting of ambulatory clinics and hospital sitesin [place], [place], [place] and [place]. This disclosure is being madepursuant to the Care Everywhere program and may not contain all information available regarding this patient. Last updated 18.[facility] Allergies Active Allergy Reactions Criticality Noted Date [...]
--- OUTSIDE RECORDS SUMMARY | 2024-07-12 16:42 | XMS_ITS | Referral Summary ---
Author Organization [facility] Address [address] [place] [address] Care Team Providers Care Youth Care Worker Name Role Phone Unavailable Primary Care Provider Unavailabl e Source Comments [facility],non-owned Affiliates and Associated Physician Practices is amultiple site organization consisting of ambulatory clinics and hospital sitesin [place], [place], [place] and [place]. This disclosure is being madepursuant to the Care Everywhere program and may not contain all information available regarding this patient. Last updated 18.[facility] Allergies Active Allergy Reactions Criticality Noted Date [...]
--- OUTSIDE RECORDS SUMMARY | 2024-07-12 16:43 | XMS_ITS | Encounter Summary ---
Author Organization [facility] Address [address] [facility] [address] [place] [address] Care Team Providers Care Mathematics Professor Name Role Phone Rhoades Brandie Quan NP Primary Care Provider [phone] Mookie Dubois MD Unavailable [phone] Reason for Visit * Reason Comments Cardiomyopathy Atrial Fibrillation 3 month follow up. 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 Gender Identity Not on file Sexual Orientation Not on file documented as of this encounter Last Filed Vital Signs Vital Sign Reading Time Taken Comments Blood Pressure 132/90 08/24/2022 10:41 AM SNUFF GRINDER AND SCREENER Pulse 108 08/24/2022 10:41 AM SNUFF GRINDER AND SCREENER Temperature - - Respiratory Rate - - Oxygen Saturation 98% 08/24/2022 10:41 AM SNUFF GRINDER AND SCREENER Inhaled Oxygen Concentration - - Weight 86.2 kg (190 lb) 08/24/2022 10:41 AM SNUFF GRINDER AND SCREENER Height 152.4 cm (5') 08/24/2022 10:41 AM SNUFF GRINDER AND SCREENER Body Mass Index 37.11 08/24/2022 10:41 AM SNUFF GRINDER AND SCREENER documented in this encounter Progress Notes * Jama Hoskins MD - 08/24/2022 10:30 AM CST [facility] FOLLOW UP 08/24/2022 Dory Lynn is a 61 y.o. female who presents for follow up of atrial fibrillation and cardiomyopathy. This is a patient that was 1st seen in July of 2021 in the hospital at [place] when she presented with dyspnea. She was [...] another cardioversion procedure. Continue follow-up with her treatment manager regarding her dialysis Will suggest to her PCP that thyroid function studies would be indicated Follow-up with me 6 months or p.r.n. Jama Hoskins MD F GRINDER AND SCREENER documented in this encounter Plan of Treatment Not on file documented as of this encounter Procedures Procedure Name Priority Date/Time Associated Diagnosis Comments POCT LIPID PANEL Routine 08/24/2022 10:5 4 AM SNUFF GRINDER AND SCREENER Lipid screening documented in this encounter Results * POCT lipid panel (08/24/2022 10:54 AM SNUFF GRINDER AND SCREENER) Cholesterol, POC 171 mg/dL HDL, POC 44 mg/dL Triglycerides, POC 511 mg/dL LDL Cholesterol POC 76 mg/dL Chol/HDL Ratio, POC N/A Non-HDL Cholesterol, POC 127 mg/dL Cholesterol Total, POC 171 mg/dL Capillary blood 08/24/2022 1 0:54 AM SNUFF GRINDER AND SCREENER us Jama Hoskins MD POINT OF CARE TEST ORDER GILES Final Result documented in this encounter Visit Diagnoses Diagnosis Atrial fibrillation, unspecified type (HCC)- Primary Lipid screening Screening for lipoid disorders documented in this encounter Care Teams Mathematics Professor Relationship Specialty Start Date End Date Brandie Rhoades NP [address] [place] [address] PCP - General Nurse Practitioner 08/09/21 Mookie Dubois MD [address] [place] [address] Referring Physician Nephrology 02/20/22 documented as of this encounter
--- OUTSIDE RECORDS SUMMARY | 2024-07-12 16:43 | XMS_ITS | Encounter Summary ---
Author Organization [facility] Address [address] [place] [address] Care Team Providers Care Tobacco Wrapping Machine Tender Name Role Phone Brandie Rhoades NP Primary Care Provider [phone] Mookie Dubois MD Unavailable [phone] Reason for Visit * Reason Comments Follow-up Atrial Fibrillation Encounter Details Date Type Department Care Team (Late st Contact Info) Description 05/01/2023 11:00 AM CDT Office Visit [facility] Cardiology [address] [facility] [address] [address] Lydia Lewis NP [address] [facility] [address] [place] [address] Longstanding persistent atrial fibrillation (CMS/HCC) [...] file 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 PHOTOGRAPHER Gender Identity Not on file Sexual Orientation [...] from the original note were not included. [facility] Cardiology [address] [place] [address] Date of Visit: 05/01/2023 Patient ID: Dory [...] July of 2021 in the hospital at [place] when she presented with dyspnea. She was [...] dialysis very closely. 05/01/2023 office visit with HYDROGEN BRAZE FURNACE OPERATOR: she reports feeling better over the past [...] ESRD (end stage renal disease) on dialysis ([facility]) Plan/Recommendations: Atrial fibrillation is asymptomatic. Currently her [...] new standing order will be sent to [facility] and she states she will go to [facility] of this week. Continue follow-up with the anticoagulation Clinic. She has a history of cardiomyopathy. Her LVEF improved when she had a repeat echo in October of last year. Today she appears compensated. Continue furosemide, losartan and metoprolol. Blood pressure is controlled. Continue losartan, eplerenone, furosemide and metoprolol. Continue home peritoneal dialysis and follow-up with rivet heater. Return to the office for routine follow-up with Dr. Hoskins in 6 months. Call sooner with questions or concerns. 05/01/2023 SEN De Souza- Nurse Practitioner with [facility] This note is dictated and transcribed using [employer] Direct Software. Method Consultant variancesmay occur. Despite proofreading, typographical errors may [...] documented as of this encounter Care Teams Tobacco Wrapping Machine Tender Relationship Specialty Start Date End Date Brandie Rhoades NP [address] [place], [place] [id number] PCP - General Nurse Practitioner 08/09/21 Mookie Dubois MD [address] [place] [address] Referring Physician Nephrology 02/20/22 documented as of this encounter
--- OUTSIDE RECORDS SUMMARY | 2024-07-12 16:43 | XMS_ITS | Encounter Summary ---
Author Organization [facility] Address [address] [facility] [address] [place] [address] Care Team Providers Care Supportability Engineer Name Role Phone Brandie Rhoades NP Primary Care Provider [phone] Mookie Dubois MD Unavailable [phone] Encounter Details Date Type Department Care Team (Latest Contact Info) Description 04/03/[address] 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
--- OUTSIDE RECORDS SUMMARY | 2024-07-12 16:43 | XMS_ITS | Encounter Summary ---
Author Organization [facility] Healthcare Address [address] [place] [address] Care Team Providers Care It Architecture Analyst Name Role Phone Verona, Brandie Quan NP Primary Care Provider [phone] Mookie Dubois MD Unavailable [phone] Abigail Dougherty RN Unavailable [phone] Jama Hoskins MD Unavailable [phone] Encounter Details Date Type Department Care Team (Late st Contact Info) Description 05/14/2024 Telephone [facility] Transplant Kidney [address] [address] Mailstop [phone] [place] [address] Gladys Charlton Social History Tobacco Use Types [...] on file 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 Pt confirmed keeping Medicare and [place] Medicaid [id number]. documented in this encounter Plan of Treatment Not on file documented as of this encounter Visit Diagnoses Not on filedocumented in this encounter Care Teams It Architecture Analyst Relationship Specialty Start Date End Date Verona, Brandie Quan NP [address] [place] [address] PCP - General Nurse Practitioner 08/09/21 Mookie Dubois MD [address] [place] [address] Referring Physician Nephrology 02/20/22 Abigail Dougherty, RN [address] [facility] [address] [place] [address] Rn Hyperbaric 02/13/24 Jama Hoskins MD [address] [facility] [address] [facility] [address] [place] [address] Consulting Physician Cardiology 02/20/24 documented as of this encounter
--- OUTSIDE RECORDS SUMMARY | 2024-07-12 16:43 | XMS_ITS | Encounter Summary ---
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
--- OUTSIDE RECORDS SUMMARY | 2024-07-12 16:43 | XMS_ITS | Encounter Summary ---
Author Organization [facility] Address [address] [place] [address] Care Team Providers Care Theatrical Performer Name Role Phone Unavailable Primary Care Provider Unavailabl e Reason for Referral * Radiology Services (Routine) - Closed Specialty Diagnoses / Procedures Referred By Christiano dior Referred To Contact Diagnoses End stage renal disease (HCC) Procedures IR CENTRAL LINE REMOVAL Mookie Dubois MD [address] [place] [address] Referral ID Status Reason Start Date Expiration Date Visits Re quested Visits Authorized [id number] Closed 05/24/2022 05/24/2023 1 1 R PACKING EXAMINER Reason for Visit * Radiology Services (Routine) - Closed Specialty Diagnoses / Procedures Referred By Christiano dior Referred To Contact Diagnoses End stage renal disease (HCC) Procedures IR CENTRAL LINE REMOVAL Mookie Dubois MD [address] [place] [address] Referral ID Status Reason Start Date Expiration Date Visits Re quested Visits Authorized [id number] Closed 05/24/2022 05/24/2023 1 1 Encounter Details Date Type Department Care Team (Late st Contact Info) Description 05/29/2022 11:00 AM CIGAR PACKING EXAMINER - 05/29/2022 11:59 PM CIGAR PACKING EXAMINER Hospital Encounter [facility] Health Vascular Services [address] [place] [address], [address] [id number] Bladimir Waite MD Nephrology & Hypertension Spe [address] [place] [address] Discharge Disposition: Home or Self Care Social [...] Coronavirus/COVID-19? No / Unsure 05/23/2022 2:50 PM CIGAR PACKING EXAMINER documented as of this encounter Discharge Summaries * Bladimir Waite MD - 05/29/2022 12:39 PM CST DISCHARGE SUMMARY Surgeon: Bladimir Waite MD Procedure Performed: 1. CATHETER PLACEMENT: REMOVAL OF TUNNELED CENTRALLY INSERTED CVC; [id number] Procedure note has been dictated in epic. [...] Intake. Bladimir Waite MD 05/29/2022 12:39 PM [facility] VAC 215 - [phone] R PACKING EXAMINER documented in this encounter Discharge Instructions * Discharge Instructions* Marjorie Bowden RN - 05/29/2022 11:30 AM CIGAR PACKING EXAMINER Advance diet as tolerated. Activity: Take it easy for the rest of the day and resume normal activities tomorrow. Do NOT lay flat for next 6 hours. Remove bandage tonight. Keep open to air. Clean with soap and water. May shower tonight. Do NOT bathe for [address] Waite or Dr. Beck at [phone] for: -moderate bleeding from procedure site -increased pain or drainage at procedure site -severe nausea and vomiting R PACKING EXAMINER documented in this encounter Medications at Time [...] cm tip to dura flow catheter by [employer]. EXAM: There were no vitals taken for [...] PLACEMENT: REMOVAL OF TUNNELED CENTRALLY INSERTED CVC; 90428 Past Medical History Illnesses: No past medical [...] and intubation and emergency airway equipment available. R PACKING EXAMINER documented in this encounter Procedure Notes * Bladimir Waite MD - 05/29/2022 12:35 PM CSTAssociated Order(s): IR CENTRAL LINE REMOVAL Dory Lynn 1960 [id number] Interventional Nephrology Procedure Date: 05/29/2022 Attending Surgeon [...] cm tip to dura flow catheter by [employer]. ?? EXAM: ?? There were no vitals [...] PLACEMENT: REMOVAL OF TUNNELED CENTRALLY INSERTED CVC; 72905 Findings: 1. A 32 cm tip to [...] Waite MD 05/29/2022 12:35 PM [facility] VAC 284 - [phone] Mookie Dubois MD [facility] dialysis. R PACKING EXAMINER documented in this encounter Plan of Treatment Not on file documented as of this encounter Procedures Procedure Name Priority Date/Time Associated Diagnosis Comments IR CENTRAL LINE REMOVAL Routine 05/29/2022 7:44 AM CIGAR PACKING EXAMINER End stage renal disease (HCC) documented in this encounter Results * IR CENTRAL LINE REMOVAL (05/29/2022 7:44 AM CIGAR PACKING EXAMINER) Anatomical Region Laterality Modality X-Ray Angiograph y Narrative 05/29/2022 12:35 PM CIGAR PACKING EXAMINER Bladimir Waite MD ? 05/29/2022 12:38 PM Dory Lynn 1960 [id number] Interventional Nephrology Procedure Date: ??05/29/2022 Attending Surgeon [...] PLACEMENT: REMOVAL OF TUNNELED CENTRALLY INSERTED CVC; 78851 Findings: 1. ??A 32 cm tip to [...] Waite MD 05/29/2022 12:35 PM [facility] VAC 568 - [phone] Mookie Dubois MD [facility]. Mookie Dubois MD IR ORDERABLES [...] Admin. by Other Provider 05/29/2022 12:35 PM CIGAR PACKING EXAMINER 100 mg documented in this encounter
--- OUTSIDE RECORDS SUMMARY | 2024-07-12 16:43 | XMS_ITS | Encounter Summary ---
Author Organization [facility] Healthcare Address [address] [place] [address] Care Team Providers Care Kindergarten Classroom Teacher Name Role Phone Verona, Brandie Quan NP Primary Care Provider [phone] Mookie Dubois MD Unavailable [phone] Reason for Visit * Reason Comments Atrial Fibrillation Coronary Artery Disease 6 month follow u p. 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 She was [...] back in atrial fibrillation. Further attempts at jewish of sinus rhythm were declined by the [...] blood 10/30/2023 3 :41 PM CDT us Jaam Hoskins MD POINT OF CARE TEST ORDER GILES Final Result documented in this encounter Visit Diagnoses Diagnosis Permanent atrial fibrillation (CMS/HCC) (HCC)- Primary Atrial fibrillation Lipid screening Screening for lipoid disorders documented in this encounter Care Teams Kindergarten Classroom Teacher Relationship Specialty Start Date End Date Brandie Rhoades NP [address] [place] [address] PCP - General Nurse Practitioner 08/09/21 Mookie Dubois MD [address] [place] [address] Referring Physician Nephrology 02/20/22 documented as of this encounter
--- OUTSIDE RECORDS SUMMARY | 2024-07-12 16:43 | XMS_ITS | Encounter Summary ---
Author Organization [facility] Healthcare Address [address] [place] [address] Care Team Providers Care Clean Up Helper Banquet Name Role Phone Verona, Brandie Quan NP Primary Care Provider [phone] Mookie Dubois MD Unavailable [phone] Abigail Dougherty RN Unavailable [phone] Jama Hoskins MD Unavailable [phone] Encounter Details Date Type Department Care Team (Late st Contact Info) Description 05/01/2024 Telephone [facility] Transplant Kidney [address] [facility] [address] [phone] [place] [address] Annalise Mays Social History Tobacco Use Types [...] on file 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 [employer] Gender Identity Not on file Sexual Orientation [...] on filedocumented in this encounter Care Teams Clean Up Helper Banquet Relationship Specialty Start Date End Date Verona, Brandie Quan NP [address] [place] [address] PCP - General Nurse Practitioner 08/09/21 Mookie Dubois MD [address] [place] [address] Referring Physician Nephrology 02/20/22 Abigail Douhgerty, RN 4590 [facility] [address] [place] [address] Marine Oil Terminal Superintendent 02/13/24 Jama Hoskins MD [address] [facility] [address] [place], [place] [id number] Consulting Physician Cardiology 02/20/24 documented as of this encounter
--- OUTSIDE RECORDS SUMMARY | 2024-07-12 16:43 | XMS_ITS | Encounter Summary ---
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
--- OUTSIDE RECORDS SUMMARY | 2024-07-12 16:43 | XMS_ITS | Encounter Summary ---
Author Organization [facility] Healthcare Address [address] [place] [address] Care Team Providers Care Recruiting Team Lead Name Role Phone Rhoades, Brandiegricelda Quan NP Primary Care Provider [phone] Mookie Dubois MD Unavailable [phone] Abigail Dougherty RN Unavailable [phone] Jama Hoskins MD Unavailable [phone] Reason for Visit * Reason Onset Date Comments INR order 06/03/2024 Encounter Details Date Type Department Care Team (Late st Contact Info) Description 06/03/2024 Telephone [facility] Medical Group Cardiology [address] [facility] [address] [place] [address] Jama Hoskins MD [address] [place] [address] INR order Social History Tobacco [...] on file 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 ART HANDLER Gender Identity Not on file Sexual Orientation Not on file documented as of this encounter Miscellaneous Notes * Telephone Encounter - Bull Jaramillo RN - 06/03/2024 2:03 PM ART HANDLER Standing INR order sent to [facility] per pt request. HANDLER * Telephone Encounter - Anna Gilmore - 06/03/2024 1:54 PM CST Patient requesting standing INR order be sent to [facility]. Thank you. Contact [phone] HANDLER documented in this encounter Plan of Treatment Scheduled Orders Name Type Priority Associated Diagnoses Orde r Schedule Protime-INR Lab Routine Permanent atrial fibrillation (CMS/HCC) (HCC) 52 Occurrences starting 06/03/2024 until 06/03/2025, 1 completed documented as of this encounter Procedures Procedure Name Priority Date/Time Associated Diagnosis Comments PROTIME-INR Routine 06/04/2024 12:25 PM ART HANDLER Permanent atrial fibrillation (CMS/HCC) (HCC) documented in this encounter Results * (ABNORMAL) Protime-INR (06/04/2024 12:25 PM ART HANDLER) INR 3.1(H) [employer] [facility] Garcia Comment: Reference Range ? 0.9-1.1 Moderate-intensity Warfarin Therapy 2.0-3.0 Higher-intensity Warfarin Therapy ?? 3.0-4.0 PT 30.8(H) 9.0 - 11.5 sec [employer] [facility] Garcia Comment: For additional information, please refer to http://education.Shopcade/faq/OEG560 (This link is being provided for informational/ educational purposes only.) Blood 06/04/2024 12:2 5 PM ART HANDLER 06/04/2024 12:26 PM ART HANDLER Jama Hoskins MD LAB BLOOD ORDERABLES Fin al Result [facility] [address] [place] [address] documented in this encounter Visit Diagnoses Diagnosis Permanent atrial fibrillation (CMS/HCC) (HCC)- Primary Atrial fibrillation documented in this encounter Care Teams Recruiting Team Lead Relationship Specialty Start Date End Date Brandie Rhoades NP [address] [place] [address] PCP - General Nurse Practitioner 08/09/21 Mookie Dubois MD [address] [place] [address] Referring Physician Nephrology 02/20/22 Abigail Dougherty, RN 45[address] [facility] [address] [place] [address] Deli Clerk 02/13/24 Jama Hoskins MD [address] [place] [address] Consulting Physician Cardiology 02/20/24 documented as of this encounter
--- OUTSIDE RECORDS SUMMARY | 2024-07-12 16:43 | XMS_ITS | Encounter Summary ---
Author Organization [facility] Healthcare Address [address] [place] [address] Care Team Providers Care Museum Or Zoo Director Name Role Phone Verona, Brandie Quan NP Primary Care Provider [phone] Mookie Dubois MD Unavailable [phone] Encounter Details Date Type Department Care Team (Late st Contact Info) Description 05/01/2023 Telephone [facility] Medical Group Cardiology [address] [facility] [address] [facility] 102 [place] [address] Jama Hoskins MD [address] [facility] [address] [place] [address] Social History Tobacco Use Types [...] on file 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 0.9-1.1 Moderate-intensity Warfarin Therapy 2.0-3.0 Higher-intensity Warfarin Therapy ?? 3.0-4.0 PT 30.8(H) 9.0 - 11.5 sec [employer] Garcia Comment: For additional information, please refer to http://education.Smart Devices/faq/JFL638 (This link is being provided for informational/ educational purposes only.) Blood 01/11/2024 11:5 8 AM CDT 01/11/2024 11:59 AM CDT Narrative [facility] - 01/12/2024 1:43 AM CDT FASTING:NO FASTING: NO Jama Hoskins MD LAB BLOOD ORDERABLES Fin al Result Performing Organization Address [facility] de Phone Number [facility] [address] [place] [address] * (ABNORMAL) Protime-INR (01/02/2024 12:20 PM CDT) INR 1.8(H) [facility] Garcia Comment: Reference Range ? 0.9-1.1 Moderate-intensity Warfarin Therapy 2.0-3.0 Higher-intensity Warfarin Therapy ?? 3.0-4.0 PT 18.0(H) 9.0 - 11.5 sec [facility] Comment: For additional information, please refer to http://Connexin Software.Smart Devices/faq/VUH420 (This link is being provided for informational/ educational purposes only.) Blood 01/02/2024 12:2 0 PM CDT 01/02/2024 12:20 PM CDT Narrative [facility] - 01/02/2024 11:39 PM CDT FASTING:NO FASTING: NO Jama Hoskins MD LAB BLOOD ORDERABLES Fin al Result Performing Organization Address [facility] de Phone Number [facility] [address] [place] [address] * (ABNORMAL) Protime-INR (12/14/2023 12:51 PM CDT) INR 1.3(H) [facility] Comment: Reference Range ? 0.9-1.1 Moderate-intensity Warfarin Therapy 2.0-3.0 Higher-intensity Warfarin Therapy ?? 3.0-4.0 PT 13.5(H) 9.0 - 11.5 sec [facility] Comment: For additional information, please refer to http://Connexin Software.Smart Devices/faq/OAM746 (This link is being provided for informational/ educational purposes only.) Blood 12/14/2023 12:5 1 PM CDT 12/14/2023 12:52 PM CDT Narrative [facility] - 12/15/2023 3:29 AM CDT FASTING:YES FASTING: YES Jama Hoskins MD LAB BLOOD ORDERABLES Fin al Result Performing Organization Address [facility] de Phone Number [facility] [address] [place] [address] * (ABNORMAL) Protime-INR (05/23/2023 1:41 PM HEALTH AND WELLNESS MANAGER) INR 1.8(H) [facility] Comment: Reference Range ? 0.9-1.1 Moderate-intensity Warfarin Therapy 2.0-3.0 Higher-intensity Warfarin Therapy ?? 3.0-4.0 PT 18.2(H) 9.0 - 11.5 sec [facility] Comment: For additional information, please refer to http://Devshop/faq/KZK896 (This link is being provided for informational/ educational purposes only.) Blood 05/23/2023 1:41 PM HEALTH AND WELLNESS MANAGER 05/23/2023 1:41 PM HEALTH AND WELLNESS MANAGER Narrative [facility] - 05/24/2023 2:09 AM HEALTH AND WELLNESS MANAGER FASTING:NO FASTING: NO Jama Hoskins MD LAB BLOOD ORDERABLES Fin al Result Performing Organization Address [facility] de Phone Number [facility] [address] [place] [address] * (ABNORMAL) Protime-INR (05/11/2023 2:22 PM CDT) INR 1.3(H) [facility] Comment: Reference Range ? 0.9-1.1 Moderate-intensity Warfarin Therapy 2.0-3.0 Higher-intensity Warfarin Therapy ?? 3.0-4.0 PT 13.3(H) 9.0 - 11.5 sec [facility] Comment: For additional information, please refer to http://Connexin Software.Smart Devices/faq/TZY193 (This link is being provided for informational/ educational purposes only.) Blood 05/11/2023 2:22 PM CDT 05/11/2023 2:22 PM CDT Narrative [facility] - 05/12/2023 1:13 AM CDT FASTING:NO FASTING: NO Jama Hoskins MD LAB BLOOD ORDERABLES Fin al Result Performing Organization Address [facility] de Phone Number [facility] [address] [place] [address] * (ABNORMAL) Protime-INR (05/03/2023 12:10 PM CDT) INR 1.2(H) [facility] Comment: Reference Range ? 0.9-1.1 Moderate-intensity Warfarin Therapy 2.0-3.0 Higher-intensity Warfarin Therapy ?? 3.0-4.0 PT 12.4(H) 9.0 - 11.5 sec [facility] Comment: For additional information, please refer to http://Devshop/faq/AFV863 (This link is being provided for informational/ educational purposes only.) Blood 05/03/2023 12:1 0 PM CDT 05/03/2023 12:10 PM CDT Jama Hoskins MD LAB BLOOD ORDERABLES Fin al Result Performing Organization Address [facility] de Phone Number [facility] [address] [place] [address] documented in this encounter Visit Diagnoses Diagnosis Atrial fibrillation, unspecified type (HCC)- Primary documented in this encounter Care Teams Museum Or Zoo Director Relationship Specialty Start Date End Date Brandie Rhoades NP [address] [place] [address] PCP - General Nurse Practitioner 08/09/21 Mookie Dubois MD [address] [place] [address] Referring Physician Nephrology 02/20/22 documented as of this encounter
--- OUTSIDE RECORDS SUMMARY | 2024-07-12 16:43 | XMS_ITS | Encounter Summary ---
Author Organization [facility] Medical Group Address [address] [facility] [address] [place] [address] Care Team Providers Care Health Care Sanitary Technician Name Role Phone Brandie Rhoades NP Primary Care Provider [phone] Mookie Dubois MD Unavailable [phone] Reason for Visit * Reason Comments Follow-up Encounter Details Date Type Department Care Team (Late st Contact Info) Description 02/20/2022 10:30 AM CDT Office Visit [facility] Medical Group Cardiology [address] [address] Lydia Lewis NP [address] [facility] 102 [place] [address] Persistent atrial fibrillation (HCC) (Primary Dx); Dilated cardiomyopathy (CMS/HCC) (HCC); ESRD (end stage renal disease) on dialysis (CMS/HCC) (HCC) Social History Tobacco Use Types Packs/Day Years Used Date Smoking Tobacco: Former Smokeless Tobacco: Never Comments Unknown Sex and Gender Information Value Date Recorded Sex Assigned at Not on file 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 [facility] Medical Group Cardiology [address] [place] [address] Date of Visit: 02/20/2022 Patient ID: Dory [...] July of 2021 in the hospital at [place] when she presented with dyspnea. She was [...] her life vest. 02/20/2022 office visit with LABEL PRESS OPERATOR: After the last visit she came [...] 02/20/2022 SEN De Souza- Nurse Practitioner with [facility] This note is dictated and transcribed using [employer] Direct Software. Ui Programmer variancesmay occur. Despite proofreading, typographical errors may [...] 01/16/2022 added in this encounter Care Teams Health Care Sanitary Technician Relationship Specialty Start Date End Date Brandie Rhoades NP [address] [place] [address] PCP - General Nurse Practitioner 08/09/21 Mookie Dubois MD [address] [place] [address] Referring Physician Nephrology 02/20/22 documented as of this encounter
--- OUTSIDE RECORDS SUMMARY | 2024-07-12 16:43 | XMS_ITS | Encounter Summary ---
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
--- OUTSIDE RECORDS SUMMARY | 2024-07-12 16:43 | XMS_ITS | Encounter Summary ---
Author Organization [facility] Healthcare Address [address] [place] [address] Care Team Providers Care Group Practice Pediatrician Name Role Phone Rhoades, Brandie Quan NP Primary Care Provider + [phone] Mookie Dubois MD Unavailable [phone] Reason for Visit * Auth/Cert Specialty Diagnoses / Procedures Referred By Christiano dior Referred To Contact Diagnoses END STAGE RENAL DISEASE Procedures WI LAP INSERTION TUNNELED INTRAPERITONEAL CATHETER WI LAP OMENTOPEXY ADD-ON LAPAROSCOPIC INSERTION PERITONEAL DIALYSIS CATHETER, LYSIS OF ADHESIONS, OMENTOPEXY, POSSIBLE OPEN Referral ID Status Reason Start Date Expiration Date Visits Re quested Visits Authorized [id number] 1 1 Encounter Details Date Type Department Care Team (Late st Contact Info) Description 04/03/2022 7:29 AM CDT Anesthesia Event [address] [place] [address] [address] Sheridan Leroy MD [address] [place] [address] Cruzito Cerda DO [address] [place] [address] [place] [address] Anesthesia Record Procedure Summary Procedure Name Responsible [...] laparoscopic sites; 06/17/24 (Retired LDA, Removed/Completed by [employer] with LDA Utility); 121 (Retired LDA, Removed/Completed by [facility] with LDA Utility) 04/03/22 0752 by [...] on file 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 Atrial fibrillation (CMS/HCC) ([facility]) Past Medical History: Diagnosis Date ??? A-fib (CMS/HCC) (HCC) ??? Acute kidney failure, unspecified (CMS/HCC) (HCC) ??? CHF (congestive heart failure) (CMS/HCC) ([facility]) ??? Dental root implant present ??? Dialysis [...] mg tablet 03/29/2022 02/20/22 -- Lydia Lewis, EDUCATION ASSISTANT TAKE 1 OR 1/2 (ONE & ONE-HALF) [...] Medication protocol when under care of a ELECTRICIAN ASSISTANT Planned anesthesia: General Team communication plan: oral ET tube Induction: Induction: intravenous. Postoperative Plan: Postoperative administration opioids intended. Informed Consent: Discussed plan with ELECTRICIAN ASSISTANT. Anesthesia plan and risks discussed with patient. [...] Procedure Name Priority Date/Time Associated Diagnosis Comments WI AN PROCEDURE PLACEHOLDER Routine 04/03/2022 7:50 AM CDT WI AN ELECTIVE ENDOTRACHEAL AIRWAY Routine 04/03/2022 7:50 AM CDT documented in this encounter Results * WI AN ELECTIVE ENDOTRACHEAL AIRWAY, WI AN PROCEDURE PLACEHOLDER (04/03/2022 7:50 AM CDT) Narrative Makenna Ceballos CRNA - 04/03/2022 7:50 AM CDT Makenna Ceballos CRNA ? 04/03/2022 ??7:51 AM Airway Patient location: OR Urgency: elective Indications for airway management: anesthesia Difficult airway: no Staff: Supervising provider: Sheridan Leroy MD Placed by: ELECTRICIAN ASSISTANT: Makenna Ceballos CRNA Emergent airway documentation: Risks [...] mL/hr documented in this encounter Care Teams Group Practice Pediatrician Relationship Specialty Start Date End Date Brandie Rhoades NP [address] [place], [place] [id number] PCP - General Nurse Practitioner 08/09/21 Mookie Dubois MD [address] [place] [address] Referring Physician Nephrology 02/20/22 documented as of this encounter
--- OUTSIDE RECORDS SUMMARY | 2024-07-12 16:43 | XMS_ITS | Encounter Summary ---
Author Organization [facility] Healthcare Address [address] [place] [address] Care Team Providers Care Office Administrator Name Role Phone [place], Brandie Quan NP Primary Care Provider [phone] Mookie Dubois MD Unavailable [phone] Abigail Dougherty RN Unavailable [phone] Jama Hoskins MD Unavailable [phone] Encounter Details Date Type Department Care Team (Late st Contact Info) Description 02/20/[address] [facility] Transplant Kidney [address] 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 Gender Identity Not on file Sexual [...] on filedocumented in this encounter Care Teams Office Administrator Relationship Specialty Start Date End Date Rhoades, Brandie Quan NP [address] [place] [address] PCP - General Nurse Practitioner 08/09/21 Mookie Dubois MD [address] [place] [address] Referring Physician Nephrology 02/20/22 Abigail Dougherty, RN [address] [facility] [address] [place] [address] Digital Operations Analyst 02/13/24 Jama Hoskins MD [address] [facility] 162 [facility] 102 [place] [address] Consulting Physician Cardiology 02/20/24 documented as of this encounter
--- OUTSIDE RECORDS SUMMARY | 2024-07-12 16:43 | XMS_ITS | Encounter Summary ---
Author Organization [facility] Medical Group Address [address] [facility] [address] [place] [address] Care Team Providers Care Radio Script Writer Name Role Phone [place]ona Brandie Quan NP Primary Care Provider [phone] Mookie Dubois MD Unavailable [phone] Encounter Details Date Type Department Care Team (Late st Contact Info) Description 07/03/2022 10:15 AM APPLIANCE SERVICE TECHNICIAN Office Visit [facility] Medical [facility] Cardiology [address] [facility] [address] [place] [address] Persistent atrial fibrillation (HCC) (Primary [...] on file 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 APPLIANCE SERVICE TECHNICIAN Gender Identity Not on file Sexual [...] EKG and given to Lydia for signature. IANCE SERVICE TECHNICIAN documented in this encounter Plan of [...] fibrillation documented in this encounter Care Teams Radio Script Writer Relationship Specialty Start Date End Date Rhoades, Brandie Quan NP [address] [place] [address] PCP - General Nurse Practitioner 08/09/21 Mookie Dubois MD [address] [place] [address] Referring Physician Nephrology 02/20/22 documented as of this encounter
--- OUTSIDE RECORDS SUMMARY | 2024-07-12 16:43 | XMS_ITS | Encounter Summary ---
Author Organization [facility] Healthcare Address [address] [place] [address] Care Team Providers Care Striker Off Name Role Phone Verona, Brandie Quan NP Primary Care Provider [phone] Mookie Dubois MD Unavailable [phone] Abigail Dougherty RN Unavailable [phone] Jama Hoskins MD Unavailable [phone] Encounter Details Date Type Department Care Team (Late st Contact Info) Description 05/01/2024 Telephone [facility] Transplant Kidney [address] 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 Gender Identity Not on file [...] on filedocumented in this encounter Care Teams Striker Off Relationship Specialty Start Date End Date Rhoades, Brandie Quan NP [address] [place] [address] PCP - General Nurse Practitioner 08/09/21 Mookie Dubois MD [address] [place] [address] Referring Physician Nephrology 02/20/22 Abigail Dougherty, RN [address] [facility] [address] [place] [address] Seating And Mobility Technologist 02/13/24 Jama Hoskins MD [address] [place] [address] Consulting Physician Cardiology 02/20/24 documented as of this encounter
--- OUTSIDE RECORDS SUMMARY | 2024-07-12 16:43 | XMS_ITS | Encounter Summary ---
Author Organization [facility] Medical Group Address [address] [facility] [address] [place] [address] Care Team Providers Care Plate Stacker Hand Name Role Phone Brandie Rhoades NP Primary Care Provider [phone] Encounter Details Date Type Department Care Team (Latest Contact Info) Description 11/23/2021 Anticoagulation Visit [facility] Medical [facility] Cardiology [address] [place] [address] Dominga Chowdary, RUPESH Atrial fibrillation, unspecified type (HCC) (Primary Dx) Social History Tobacco Use Types Packs/Day Years Used Date Smoking Tobacco: Former Smokeless Tobacco: Never Comments Unknown Sex and Gender Information Value Date Recorded Sex Assigned at Not on file 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
--- OUTSIDE RECORDS SUMMARY | 2024-07-12 16:43 | XMS_ITS | Encounter Summary ---
Author Organization [facility] Healthcare Address [address] [place] [address] Care Team Providers Care Disaster Response Director Name Role Phone [place], Brandie Quan NP Primary Care Provider [phone] Mookie Dubois MD Unavailable [phone] Abigail Dougherty RN Unavailable [phone] Jama Hoskins MD Unavailable [phone] Encounter Details Date Type Department Care Team (Late st Contact Info) Description 05/01/2024 Telephone 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 Gender Identity Not on file Sexual [...] on filedocumented in this encounter Care Teams Disaster Response Director Relationship Specialty Start Date End Date Rhoades, Brandie Quan NP [address] [place] [address] PCP - General Nurse Practitioner 08/09/21 Mookie Dubois MD [address] [place] [address] Referring Physician Nephrology 02/20/22 Abigail Dougherty, RN [address] [facility] [address] [place] [address] Robotype Operator 02/13/24 Jama Hoskins MD [address] [facility] [address] [place] [address] Consulting Physician Cardiology 02/20/24 documented as of this encounter
--- OUTSIDE RECORDS SUMMARY | 2024-07-12 16:43 | XMS_ITS | Encounter Summary ---
Author Organization [facility] Healthcare Address [address] [place] [address] Care Team Providers Care Veneer Marker Name Role Phone Rhoades, Brandie Quan NP Primary Care Provider [phone] Mookie Dubois MD Unavailable [phone] Reason for Visit * Auth/Cert Specialty Diagnoses / Procedures Referred By Christiano dior Referred To Contact Diagnoses END STAGE RENAL DISEASE Procedures [place] LAP INSERTION TUNNELED INTRAPERITONEAL CATHETER WY LAP OMENTOPEXY ADD-ON LAPAROSCOPIC INSERTION PERITONEAL DIALYSIS CATHETER, LYSIS OF ADHESIONS, OMENTOPEXY, POSSIBLE OPEN Referral ID Status Reason Start Date Expiration Date Visits Re quested Visits Authorized [id number] 1 1 Encounter Details Date Type Department Care Team (Latest Contact Info) Description 04/03/2022 5:41 AM CDT - 04/03/2022 10:50 AM CDT Hospital Encounter [facility] OR [address] [place] [address] Sulaiman Hi MD [address] [place] [address] Discharge Disposition: Discharge to home or self [...] on file 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 Gender Identity Not on file Sexual [...] * Continuous Ambulatory Peritoneal Dialysis (Discharge Care) ([place]) documented in this encounter Medications at Time [...] catheter Anesthesia: General Surgeon: Sulaiman Hi MD Client Success Director: [email or web address] Owner Operator: Veronica Oliveros RN Scrub: Carmelo Perez ST; Nga Akhtar RN [place]ee Line Haul Owner Operator: Rosetta Harvey RN; Alexandria Turcios RN Anesthesia: General Anesthesiologist: Sheridan Leroy MD AQUATIC DIRECTOR: Makenna Ceballos CRNA Specimen: None Drains: None [...] with a 2-0 silk suture using a [employer] suture Passer. 5 mm trocars are removed [...] from the original note were not included. [address] [place], [place] [address] Surgery Reminder Checklist: Please arrive to [facility]'s Outpatient Surgery Department for scheduled surgeryon [...] at least 24 hours prior to surgery. [place] your teeth morning of procedure. Use mouth [...] please call the Admission Testing Center at [phone]. Thank you, Alfred RN (instructions sent via [...] AM CDT) Ventricular Rate EKG/Min 74 BPM [facility] QRS-Interval (MSEC) 106 ms [facility] QT-Interval (MSEC) 464 ms [facility] QTc 515 ms [facility] R [place] 36 degrees [facility] T [place] 192 degrees [facility] Diagnosis Atrial fibrillation ST & T wave abnormality, consider inferior ischemia ST & T wave abnormality, consider anterolateral ischemia Prolonged QT Abnormal ECG When compared with ECG of 07-AUG-2000 10:12, Atrial fibrillation has replaced Sinus rhythm ST now depressed in Anterior leads T wave inversion more evident in Anterior leads [facility] 04/03/2022 6:45 AM CDT 04/03/2022 7:21 AM CDT us Cruzito Cerda DO ECG ORDERABLES Final Result [facility] * eGFR (04/03/2022 6:24 AM CDT) eGFR 6 mL/min/1. 73 m2 [facility]PER [...] MD LAB BLOOD ORDERABLES Samina barbosa Result [facility] [address] [facility] [place] [address] * (ABNORMAL) Differential, auto (04/03/2022 6:24 AM CDT) Pathologist [facility] Neutrophil abs 6.0 1.7 - 6.5 K/cumm [facility] Imm gran abs 0.1 0.0 - 0.1 K/cumm [facility] Lymphocyte abs 1.0 0.8 - 3.3 K/cumm [facility] Monocyte abs 1.0(H) 0.2 - 0.8 K/cumm [facility] Eosinophil abs 0.5 0.0 - 0.5 K/cumm [facility] Basophil abs 0.0 0.0 - 0.1 K/cumm [facility] Neutrophil pct 69.6 % [facility] Comment: Interpretive Data Percent cell count reference ranges are not reported, since discordance with absolute values may lead to misinterpretation of CBC data. Current Interpretive Data was last revised on 2017. Imm gran pct 0.7 % [facility] Comment: Interpretive Data Percent cell count reference ranges are not reported, since discordance with absolute values may lead to misinterpretation of CBC data. Current Interpretive Data was last revised on 2017. Lymphocyte pct 11.8 % [facility] Comment: Interpretive Data Percent cell count reference ranges are not reported, since discordance with absolute values may lead to misinterpretation of CBC data. Current Interpretive Data was last revised on 2017. Monocyte pct 11.6 % [facility] Comment: Interpretive Data Percent cell count reference ranges are not reported, since discordance with absolute values may lead to misinterpretation of CBC data. Current Interpretive Data was last revised on 2017. Eosinophil pct 5.8 % [facility] Comment: Interpretive Data Percent cell count reference ranges are not reported, since discordance with absolute values may lead to misinterpretation of CBC data. Current Interpretive Data was last revised on 2017. Basophil pct 0.5 % [facility] Comment: Interpretive Data Percent cell count reference ranges are not reported, since discordance with absolute values may lead to misinterpretation of CBC data. Current Interpretive Data was last revised on 2017. Blood 04/03/2022 6:24 AM CDT 04/03/2022 6:28 AM CDT us Cruzito Cerda DO LAB BLOOD ORDERABLES Final Re sult [facility] [address] [facility] Department of Laboratories [place], [place] [id number] * (ABNORMAL) Basic metabolic panel (04/03/2022 6:24 AM CDT) Sodium 139 135 - 145 mmol/L [facility] Potassium, pl 4.3 3.3 - 4.9 mmol/L [facility] Chloride 98 97 - 110 mmol/L [facility] CO2 28 22 - 32 mmol/L [facility] Anion gap 13 2 - 15 mmol/L [facility] BUN 58(H) 8 - 25 mg/dL [facility] Creatinine 7.60(H) 0.60 - 1.10 mg/dL [facility] Glucose 93 70 - 199 mg/dL [facility] Comment: Interpretive Data Fasting glucose >/= 126 [...] 2017. Calcium 9.7 8.5 - 10.3 mg/dL [facility] Blood 04/03/2022 6:24 AM CDT 04/03/2022 6:28 AM CDT Sheridan Leroy MD LAB BLOOD ORDERABLES Samina l Result Performing Organization Address [facility] Co de Phone Number [address] [place] [address] * Protime-INR (04/03/2022 6:24 AM CDT) Pathologist [facility] PT 14.5 12.0 - 14.6 sec [facility] INR 1.1 0.9 - 1.2 [facility] Comment: Ref Range High Interpretive data Oral [...] Re sult Performing Organization Address [facility] Co de Phone Number [address] [address] * (ABNORMAL) CBC with auto differential (04/03/2022 6:24 AM CDT) Pathologist [facility] WBC 8.6 3.8 - 9.9 K/cumm [facility] Hgb 10.0(L) 11.9 - 15.5 g/dL [facility] Hct 31.2(L) 35.6 - 45.5 % [facility] Plt 261 150 - 400 K/cumm [facility] MPV 9.6 9.1 - 12.3 fL [facility] RBC 3.09(L) 3.90 - 5.20 M/cumm [facility] MCV 101.0(H) 81.3 - 96.4 fL [facility] MCH 32.4 27.1 - 33.3 pg [facility] MCHC 32.1(L) 32.3 - 35.7 g/dL [facility] RDW CV 13.9 11.1 - 14.9 % [facility] RDW SD 51.0(H) 35.7 - 48.1 fL [facility] NRBC abs 0.00 0.00 - 0.01 K/cumm [facility] Blood 04/03/2022 6:24 AM CDT 04/03/2022 6:28 AM CDT us Cruzito Cerda DO LAB BLOOD ORDERABLES Final Re sult [facility] [address] [facility] [place] [address] documented in this encounter Visit Diagnoses Not [...] Call MD for each episode of hypoglycemia. PANEL LAY UP WORKER STATES GLUTOSE-15 CONTAINS GLUCOSE 40% W/W (50% [...] Call MD for each episode of hypoglycemia. PANEL LAY UP WORKER STATES GLUTOSE-15 CONTAINS GLUCOSE 40% W/W (50% [...] Call MD for each episode of hypoglycemia. PANEL LAY UP WORKER STATES GLUTOSE-15 CONTAINS GLUCOSE 40% W/W (50% [...] 04/03/2022 documented in this encounter Care Teams Veneer Marker Relationship Specialty Start Date End Date Brandie Rhoades NP [address] [place] [address] PCP - General Nurse Practitioner 08/09/21 Mookie Dubois MD [address] [place] [id number] Referring Physician Nephrology 02/20/22 documented as of this encounter
--- OUTSIDE RECORDS SUMMARY | 2024-07-12 16:43 | XMS_ITS | Encounter Summary ---
Author Organization [facility] Medical Group Address [address] [facility] [address] [place] [address] Care Team Providers Care Dental Service Technician Name Role Phone Brandie Rhoades NP Primary Care Provider Encounter Details Date Type Department Care Team (Latest Contact Info) Description 10/21/2021 Anticoagulation Visit [facility] Medical Group Cardiology [address] [place] [address] Daylin Gurrola, RUPESH Atrial fibrillation, unspecified type (HCC) (Primary Dx) Social History Tobacco Use Types Packs/Day Years Used Date Smoking Tobacco: Former Smokeless Tobacco: Never Comments Unknown Sex and Gender Information Value Date Recorded Sex Assigned at Not on file 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
--- OUTSIDE RECORDS SUMMARY | 2024-07-12 16:43 | XMS_ITS | Referral Summary ---
Author Organization [facility] [place] [address] [place] [address] 162 Address [address] [facility] 162 [place] [address] Care Team Providers Care Channel Rebuilder Name Role Phone Verona, Brandie Quan NP Primary Care Provider Mookie Dubois MD Unavailable Abigail Dougherty RN Unavailable [phone] Jama Hoskins MD Unavailable Encounters Date Type Department Care Team Description 06/05/2024 Anticoagulation Visit [facility] [address] [place] [address] 162 [address] [place] [address] Bull Jaramillo RN Permanent atrial fibrillation ([facility]/HCC) (HCC) (Primary Dx) 06/03/2024 Telephone [facility] [address] [place] [address] 162 [address] [place] [address] Jama Hoskins MD INR order 05/30/2024 2:15 PM ASSISTANT SPA DIRECTOR Office Visit [facility] [address] [place] [address] 162 [address] [place] [address] Jama Hoskins MD Permanent atrial fibrillation ([facility]/HCC) (HCC) (Primary Dx); Chronic anticoagulation 05/14/2024 Telephone [facility] [address] [facility] [address] Mailstop 90-29-910 [place] [address] Gladys Charlton 05/02/2024 Documentation [facility] 4590 [facility] 3401 Mailstop 87-03-151 [place] [address] Annalise Mays 05/01/2024 Telephone [facility] 45[address] [facility] 3401 Mailstop 96-31-937 [place] [address] Abigail Dougherty RN 05/01/2024 Telephone [facility] 45[address] [facility] 3401 Mailstop 18-83-269 [place] [address] Gladys Charlton 05/01/2024 Telephone [facility] 45[address] [facility] 3401 Mailstop 48-26-998 [place] [address] Annalise Mays from Last 3 Months Allergies [...] file 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 ASSISTANT SPA DIRECTOR Gender Identity Not on file Sexual Orientation Not on file Last Filed Vital Signs Vital Sign Reading Time Taken Comments Blood Pressure 130/88 05/30/2024 2:24 PM ASSISTANT SPA DIRECTOR Pulse 108 05/30/2024 2:24 PM ASSISTANT SPA DIRECTOR Temperature 36.4 ??C (97.5 ??F) 04/03/2022 9:15 AM CD T Respiratory Rate 18 04/03/2022 9:45 AM CDT Oxygen Saturation 98% 05/30/2024 2:24 PM ASSISTANT SPA DIRECTOR Inhaled Oxygen Concentration - - Weight 93.9 kg (207 lb) 05/30/2024 2:24 PM ASSISTANT SPA DIRECTOR Height 152.4 cm (5') 05/30/2024 2:24 PM ASSISTANT SPA DIRECTOR Body Mass Index 40.43 05/30/2024 2:24 PM ASSISTANT SPA DIRECTOR Plan of Treatment Not on file Medical Devices Implanted Type Area Plumber Device Identifier Shelf Expiration Date Model / Serial / Lot Dental Implant Other - see comments Description:Upper [employer] [place] 15fr 62cm 2 Cuff Radiopaque Peritoneal Curl Catheter [id number] - [id number] Implanted:Qty: 1 on 04/03/2022 by Sulaiman Hi MD at [facility] Er Left: Abdomen [employer] 10/16/2026 [id number] / / [id number] Procedures Procedure Name Priority Date/Time Associated Diagnosis Comments PROTIME-INR Routine 06/04/2024 12:25 PM ASSISTANT SPA DIRECTOR Permanent atrial fibrillation (CMS/HCC) (HCC) from Last 3 Months Results * (ABNORMAL) Protime-INR (06/04/2024 12:25 PM ASSISTANT SPA DIRECTOR) INR 3.1(H) Monalisa NewVisions CommunicationsCammie Garcia Comment: Reference Range ? 0.9-1.1 Moderate-intensity Warfarin Therapy 2.0-3.0 Higher-intensity Warfarin Therapy ?? 3.0-4.0 PT 30.8(H) 9.0 - 11.5 sec BroadersheetCammie Garcia Comment: For additional information, please refer to http://education.Zoomingo/faq/GPA014 (This link is being provided for informational/ educational purposes only.) Blood 06/04/2024 12:2 5 PM ASSISTANT SPA DIRECTOR 06/04/2024 12:26 PM ASSISTANT SPA DIRECTOR us Jama Hoskins MD LAB BLOOD ORDERABLES Fin al Result [facility] [address] [place] [address] from Last 3 Months Insurance MEDICARE IDOR [facility] MEDICARE MEDICARE Care Teams Channel Rebuilder Relationship Specialty Start Date End Date Brandie Rhoades NP [address] [place] [address] PCP - General Nurse Practitioner 08/09/21 Mookie Dubois MD [address] [place] [address] Referring Physician Nephrology 02/20/22 Abigail Dougherty, RUPESH 45[address] [facility] 3401 [place] [address] Speech Language Assistant 02/13/24 Jama Hoskins MD [address] [facility] 162 [facility] 102 [place] [address] Consulting Physician Cardiology 02/20/24
--- OUTSIDE RECORDS SUMMARY | 2024-07-12 16:43 | XMS_ITS | Encounter Summary ---
Author Organization [facility] Healthcare Address [address] [place] [address] Care Team Providers Care Digital Account Supervisor Name Role Phone Verona, Brandie Quan NP Primary Care Provider [phone] Mookie Dubois MD Unavailable [phone] Abigail Dougherty RN Unavailable [phone] Jama Hoskins MD Unavailable [phone] Encounter Details Date Type Department Care Team (Late st Contact Info) Description 05/02/2024 Documentation [facility] Transplant Kidney [address]949 [place] [address] Annalise Mays Social History Tobacco Use Types [...] on file 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 Gender Identity Not on file Sexual [...] on filedocumented in this encounter Care Teams Digital Account Supervisor Relationship Specialty Start Date End Date Brandie Rhoades NP [address] [place] [address] PCP - General Nurse Practitioner 08/09/21 Mookie Dubois MD [address] [place] [address] Referring Physician Nephrology 02/20/22 Abigail Dougherty, RN 4590 [facility] [address] [place] [address] Silk Snapper 02/13/24 Jama Hoskins MD [address] [facility] [address] [address] Consulting Physician Cardiology 02/20/24 documented as of this encounter
--- OUTSIDE RECORDS SUMMARY | 2024-07-12 16:43 | XMS_ITS | Encounter Summary ---
Author Organization [facility] Address [address] [facility] [address] [place] [address] Care Team Providers Care Production Cloth Cutter Name Role Phone Brandie Rhoades NP Primary Care Provider Encounter Details Date Type Department Care Team (Late st Contact Info) Description 10/19/2021 Telephone [facility] Cardiology [address] [place] [address] Jama Hoskins MD [address] [place] [address] Social History Tobacco Use Types Packs/Day Years Used Date Smoking Tobacco: Former Smokeless Tobacco: Never Comments Unknown Sex and Gender Information Value Date Recorded Sex Assigned at Not on file 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
--- OUTSIDE RECORDS SUMMARY | 2024-07-12 16:43 | XMS_ITS | Encounter Summary ---
Author Organization [facility] Address [address] [facility] [address] [place] [address] Care Team Providers Care Counter Molder Name Role Phone Brandie Rhoades NP Primary Care Provider [phone] Mookie Dubois MD Unavailable [phone] Encounter Details Date Type Department Care Team (Late st Contact Info) Description 02/20/2022 Telephone [facility] Cardiology [address] [facility] 102 [place] [address] Lydia Lewis NP [address] [place] [address] Social History Tobacco Use Types Packs/Day Years Used Date Smoking Tobacco: Former Smokeless Tobacco: Never Comments Unknown Sex and Gender Information Value Date Recorded Sex Assigned at Not on file 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 * Telephone Encounter [...] documented as of this encounter Care Teams Counter Molder Relationship Specialty Start Date End Date Verona, Brandie Quan NP [address] [place] [address] PCP - General Nurse Practitioner 08/09/21 Mookie Dubois MD [address] [place] [address] Referring Physician Nephrology 02/20/22 documented as of this encounter
--- OUTSIDE RECORDS SUMMARY | 2024-07-12 16:43 | XMS_ITS | Encounter Summary ---
Author Organization [facility] Address [address] [facility] [address] [place] [address] Care Team Providers Care Assembler Musical Instruments Name Role Phone Brandie Rhoades NP Primary Care Provider + [phone] Mookie Dubois MD Unavailable [phone] Encounter Details Date Type Department Care Team (Latest Contact Info) Description 04/13/2022 Anticoagulation Visit [facility] Cardiology [address] [place] [address] Daylin Gurrola RN Atrial fibrillation, [...] on file 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
--- OUTSIDE RECORDS SUMMARY | 2024-07-12 16:43 | XMS_ITS | Encounter Summary ---
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 Gender Identity Not on file Sexual Orientation [...] fibrillation documented in this encounter Care Teams Gas Worker Relationship Specialty Start Date End Date Verona, Brandie Quan NP [address] [place] [address] PCP - General Nurse Practitioner 08/09/21 Mookie Dubois MD [address] [place], [place] [address] Referring Physician Nephrology 02/20/22 Abigail Dougherty, RN [address] [address] Bushing And Broach Operator 02/13/24 Jama Hoskins MD [address] [facility] 102 [place] [address] Consulting Physician Cardiology 02/20/24 documented as of this encounter
--- OUTSIDE RECORDS SUMMARY | 2024-07-12 16:43 | XMS_ITS | Encounter Summary ---
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
--- OUTSIDE RECORDS SUMMARY | 2024-07-12 16:43 | XMS_ITS | Encounter Summary ---
Author Organization [facility] Address [address] [facility] [address] [place] [address] Care Team Providers Care Professor Of Education Name Role Phone RhoadesUcheBrandiegricelda Quan NP Primary Care Provider Reason for Visit * Reason Comments Atrial Fibrillation 2 month fu Encounter Details Date Type Department Care Team (Latest Contact Info) Description 09/22/2021 10:45 AM USED BUILDING MATERIALS YARD WORKER Office Visit [facility] Cardiology [address] [facility] 102 [place] [address] Jama Hoskins MD [address] [facility] 102 [place] [address] Dilated cardiomyopathy (CMS/HCC) (HCC) (Primary Dx) Social History Tobacco Use Types Packs/Day Years Used Date Smoking Tobacco: Former Smokeless Tobacco: Never Comments Unknown Sex and Gender Information Value Date Recorded Sex Assigned at Not on file 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 USED BUILDING MATERIALS YARD WORKER Gender Identity Not on file Sexual Orientation Not on file documented as of this encounter Last Filed Vital Signs Vital Sign Reading Time Taken Comments Blood Pressure 120/76 09/22/2021 10:35 AM USED BUILDING MATERIALS YARD WORKER Pulse 96 09/22/2021 10:35 AM USED BUILDING MATERIALS YARD WORKER Temperature - - Respiratory Rate - - Oxygen Saturation 98% 09/22/2021 10:35 AM USED BUILDING MATERIALS YARD WORKER Inhaled Oxygen Concentration - - Weight 70.3 kg (155 lb) 09/22/2021 10:35 AM USED BUILDING MATERIALS YARD WORKER Height 152.4 cm (5') 09/22/2021 10:35 AM USED BUILDING MATERIALS YARD WORKER Body Mass Index 30.27 09/22/2021 10:35 AM USED BUILDING MATERIALS YARD WORKER documented in this encounter Progress Notes * Jama Hoskins MD - 09/22/2021 10:45 AM CST [facility] FOLLOW [facility] 09/22/2021 Dory Lynn is a 60 y.o. female who presents for follow up of atrial fibrillation and cardiomyopathy. This is a patient that was 1st seen in July of 2021 in the hospital at [place] when she presented with dyspnea. She was [...] wish to be cardioverted Jama Hoskins MD BUILDING MATERIALS YARD WORKER documented in this encounter Miscellaneous Notes * Addendum Note - Kalyan Shen MA - 09/22/2021 10:45 AM CSTAddended by: KALYAN SHEN on: 09/22/2021 02:25 PM Modules accepted: Orders BUILDING MATERIALS YARD WORKER documented in this encounter Plan of Treatment [...] cardiomyopathies documented in this encounter Care Teams Professor Of Education Relationship Specialty Start Date End Date Rhoades, Brandie Quan NP [address] [place], [place] [address] PCP - General Nurse Practitioner 08/09/21 documented as of this encounter
--- OUTSIDE RECORDS SUMMARY | 2024-07-12 16:43 | XMS_ITS | Encounter Summary ---
Author Organization [facility] Healthcare Address [address] [place] [address] Care Team Providers Care Bolt Sorter Name Role Phone Rhoades, Brandie Quan NP Primary Care Provider [phone] Mookie Dubois MD Unavailable [phone] Encounter Details Date Type Department Care Team (Latest Contact Info) Description 05/04/[address] 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
--- OUTSIDE RECORDS SUMMARY | 2024-07-12 16:43 | XMS_ITS | Encounter Summary ---
Author Organization [facility] Healthcare Address [address] [place] [address] Care Team Providers Care Inker Machine Name Role Phone Rhoades, Brandie Quan NP Primary Care Provider [phone] Mookie Dubois MD Unavailable [phone] Abigail Dougherty RN Unavailable [phone] Jama Hoskins MD Unavailable [phone] Reason for Visit * Reason Comments Atrial Fibrillation 6 mo f/u Encounter Details Date Type Department Care Team (Latest Contact Info) Description 05/30/2024 2:15 PM SUPERINTENDENT COMMUNICATIONS Office Visit [facility] Cardiology [address] [place] [address] Jama Hoskins MD [address] [place] [address] Permanent atrial fibrillation (CMS/HCC) (HCC) [...] on file 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 SUPERINTENDENT COMMUNICATIONS Gender Identity Not on file Sexual Orientation Not on file documented as of this encounter Last Filed Vital Signs Vital Sign Reading Time Taken Comments Blood Pressure 130/88 05/30/2024 2:24 PM SUPERINTENDENT COMMUNICATIONS Pulse 108 05/30/2024 2:24 PM SUPERINTENDENT COMMUNICATIONS Temperature - - Respiratory Rate - - Oxygen Saturation 98% 05/30/2024 2:24 PM SUPERINTENDENT COMMUNICATIONS Inhaled Oxygen Concentration - - Weight 93.9 kg (207 lb) 05/30/2024 2:24 PM SUPERINTENDENT COMMUNICATIONS Height 152.4 cm (5') 05/30/2024 2:24 PM SUPERINTENDENT COMMUNICATIONS Body Mass Index 40.43 05/30/2024 2:24 PM SUPERINTENDENT COMMUNICATIONS documented in this encounter Progress Notes * Jama Hoskins MD - 05/30/2024 2:15 PM CST [facility] 05/30/2024 Dory Lynn is a 63 y.o. female who presents for follow up of atrial fibrillation and cardiomyopathy. This is a patient that was 1st seen in July of 2021 in the hospital at [place] when she presented with dyspnea. She was [...] back in atrial fibrillation. Further attempts at protestant of sinus rhythm were declined by the [...] with me 6 months or p.r.n. Jama Hsokins MD RINTENDENT COMMUNICATIONS documented in this encounter Miscellaneous Notes * Addendum Note - Mila Cardona MA - 05/30/2024 2:15 PM CSTAddended by: MILA CARDONA on: 05/30/2024 02:50 PM Modules accepted: Orders RINTENDENT COMMUNICATIONS documented in this encounter Plan of Treatment Scheduled Orders Name Type Priority Associated Diagnoses Orde r Schedule Protime-INR Lab Routine Chronic anticoagulation weekly for 52 Occurrences starting 05/30/2024 until 05/30/2025 documented as of this encounter Visit Diagnoses Diagnosis Permanent atrial fibrillation (CMS/HCC) (HCC)- Primary Atrial fibrillation Chronic anticoagulation Encounter for long-term (current) use of anticoagulants documented in this encounter Care Teams Inker Machine Relationship Specialty Start Date End Date Brandie Rhoades NP [address] [place] [address] PCP - General Nurse Practitioner 08/09/21 Mookie Dubois MD [address] [place] [address] Referring Physician Nephrology 02/20/22 Abigail Dougherty, RN [address] [address] Music Ministries Director 7/31/24 Jama Hoskins MD [address] [place] [address] Consulting Physician Cardiology 02/20/24 documented as of this encounter
--- OUTSIDE RECORDS SUMMARY | 2024-07-12 16:43 | XMS_ITS | Encounter Summary ---
Author Organization [facility] Healthcare Address [address] [place] [address] Care Team Providers Care Maintenance Person Name Role Phone Verona, Brandie Quan NP Primary Care Provider + [phone] Mookie Dubois MD Unavailable [phone] Abigail Dougherty RN Unavailable [phone] Jama Hoskins MD Unavailable [phone] Encounter Details Date Type Department Care Team (Late st Contact Info) Description 02/20/2024 Documentation [facility] Transplant Kidney [address] [facility] [address]17[address] [place], [place] [id number] Abigail Dougherty, RN [address] [facility] [place] [address] [place], [place] [id number] Social History Tobacco Use Types Packs/Day Years [...] on file 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 DIRECTOR Gender Identity Not on file Sexual Orientation Not on file documented as of this encounter Plan of Treatment Not on file documented as of this encounter Visit Diagnoses Not on filedocumented in this encounter Care Teams Maintenance Person Relationship Specialty Start Date End Date Rhoades, Brandie Quan NP [address] [place] [address] PCP - General Nurse Practitioner 08/09/21 Mookie Dubois MD [address] [place] [address] Referring Physician Nephrology 02/20/22 Abigail Dougherty, RN [address] [facility] [address] [place] [address] Fagoter 02/13/24 Jama Hoskins MD [address] [facility] 162 [facility] 102 [place] [address] Consulting Physician Cardiology 02/20/24 documented as of this encounter
--- OUTSIDE RECORDS SUMMARY | 2024-07-12 16:43 | XMS_ITS | Encounter Summary ---
Author Organization [facility] Address [address] [facility] [address] [place] [address] Care Team Providers Care Bet Taker Name Role Phone Brandie Rhoades NP Primary Care Provider [phone] Encounter Details Date Type Department Care Team (Latest Contact Info) Description 01/25/2022 Anticoagulation Visit [facility] Cardiology [address] [place] [address] Dominga Chowdary, RUPESH Atrial fibrillation, unspecified type (HCC) (Primary Dx) Social History Tobacco Use Types Packs/Day Years Used Date Smoking Tobacco: Former Smokeless Tobacco: Never Comments Unknown Sex and Gender Information Value Date Recorded Sex Assigned at Not on file 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 MANAGER SITE Gender Identity Not on file Sexual Orientation Not on file documented as of this encounter Plan of Treatment Not on file documented as of this encounter Visit Diagnoses Diagnosis Atrial fibrillation, unspecified type (HCC)- Primary documented in this encounter Care Teams Bet Taker Relationship Specialty Start Date End Date Brandie Rhoades NP [address] [place] [address] PCP - General Nurse Practitioner 08/09/21 documented as of this encounter
--- OUTSIDE RECORDS SUMMARY | 2024-07-12 16:43 | XMS_ITS | Encounter Summary ---
Author Organization [facility] Address [address] [place] [address] Care Team Providers Care Tank Hoop Bender Name Role Phone Brandie Rhoades NP Primary Care Provider [phone] Mookie Dubois MD Unavailable [phone] Reason for Referral * Cardiology (Routine) - Closed Specialty Diagnoses / Procedures Referred By Christiano dior Referred To Contact Diagnoses Persistent atrial fibrillation (HCC) Procedures ECG 12 lead Lydia Lewis NP [address] [address] Phone: tel: fax: [facility] Referral ID Status Reason Start Date Expiration Date Visits Re quested Visits Authorized [id number] Closed 05/22/2022 06/21/2023 1 1 H SETTER Reason for Visit * Reason Comments Follow-up 3 mo Encounter Details Date Type Department Care Team (Late st Contact Info) Description 05/22/2022 10:30 AM PATCH SETTER Office Visit [facility] Cardiology [address] [place] [address] Lydia Lewis NP [address] [facility] [address] [address] Hypertensive heart disease with chronic [...] on file 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 PATCH SETTER Gender Identity Not on file Sexual Orientation Not on file documented as of this encounter Last Filed Vital Signs Vital Sign Reading Time Taken Comments Blood Pressure 162/110 05/22/2022 10:49 AM PATCH SETTER Pulse 77 05/22/2022 10:49 AM PATCH SETTER Temperature - - Respiratory Rate - - Oxygen Saturation 98% 05/22/2022 10:49 AM PATCH SETTER Inhaled Oxygen Concentration - - Weight 80.3 kg (177 lb) 05/22/2022 10:49 AM PATCH SETTER Height 152.4 cm (5') 05/22/2022 10:49 AM PATCH SETTER Body Mass Index 34.57 05/22/2022 10:49 AM PATCH SETTER documented in this encounter Ordered Prescriptions Prescription [...] from the original note were not included. [facility] Cardiology [address] [place] [address] Date of Visit: 05/22/2022 Patient ID: Dory [...] July of 2021 in the hospital at [place] when she presented with dyspnea. She was [...] her life vest. 02/20/2022 office visit with HOME ECONOMICS TEACHER: After the last visit she came back [...] chest wall catheter. 05/22/2022 office visit with HOME ECONOMICS TEACHER: At the last visit I instructed her [...] History: Past Medical History: Diagnosis Date A-fib ([facility]) (HCC) Acute kidney failure, unspecified ([facility]) (HCC) CHF (congestive heart failure) ([facility]) ([facility]) Dental root implant present Dialysis patient ([facility]) ([facility]) Eczema feet, arms which is resolved [...] Continue home peritoneal dialysis and follow-up with hull line crew member. Atrial fibrillation is asymptomatic. Currently her heart [...] with questions or concerns. 05/22/2022 SEN De Sozua- Nurse Practitioner with [facility] Cardiology This note is dictated and transcribed using BusyEvent Direct Software. Solid Die Cutter variancesmay occur. Despite proofreading, typographical errors may occur. H SETTER H SETTER documented in this encounter Miscellaneous Notes * Addendum Note - Chad Negrete MA - 05/22/2022 10:30 AM CSTAddended by: CHAD NEGRETE on: 05/22/2022 01:40 PM Modules accepted: Orders H SETTER documented in this encounter Plan of Treatment [...] 04/22/2022 added in this encounter Care Teams Tank Hoop Bender Relationship Specialty Start Date End Date Branide Rhoades NP [address] [place] [address] PCP - General Nurse Practitioner 08/09/21 Mookie Dubois MD [address] [place] [address] Referring Physician Nephrology 02/20/22 documented as of this encounter
--- OUTSIDE RECORDS SUMMARY | 2024-07-12 16:43 | XMS_ITS | Encounter Summary ---
Author Organization [facility] Address [address] [facility] [address] [place] [address] Care Team Providers Care Lawn Mower Mechanic Name Role Phone Brandie Rhoades NP Primary Care Provider [phone] Reason for Visit * Cardiology (Routine) - Closed Specialty Diagnoses / Procedures Referred By Contac t Referred To Contact Diagnoses Dilated cardiomyopathy (CMS/HCC) (HCC) Procedures Transthoracic Echo (TTE) Limited Hilary Lemus NP [address] [address] Phone: tel: fax: [facility] Referral ID Status Reason Start Date Expiration Date Visits Re quested Visits Authorized [id number] Closed 10/06/2021 10/06/2022 1 1 Encounter Details Date Type Department Care Team (Latest Contact Info) Description 10/18/2021 2:00 PM CDT Ancillary Procedure [facility] Medical [facility] Cardiology [address] [address] Dilated cardiomyopathy (CMS/HCC) (HCC) Social History Tobacco Use Types Packs/Day Years Used Date Smoking Tobacco: Former Smokeless Tobacco: Never Comments Unknown Sex and Gender Information Value Date Recorded Sex Assigned at Not on file 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 DIRECTOR OF SPORTS PERFORMANCE Gender Identity Not on file Sexual Orientation [...] PM CDT Narrative 10/18/2021 5:06 PM CDT [facility] Cardiology [address], [place] [address] [address] [facility] [address], [place] [address] P:[phone] P:[phone] Echocardiographic Report Patient Name: DORY LYNN : 1960 Study Date: 10/18/2021 1:13:45 PM Gender: F Tech: Location: OR Ref.Provider: HILARY LEMUS Height(Cm): 152 BSA: 1.67 [...] Site: Exam was interpreted at [facility]. Left Ventricle: Moderate concentric left ventricular [...] improved. Electronically Signed By: Jama Hoskins MD, [facility] 2021-10-18 17:05:58 CDT Procedure Note Jama Hoskins MD - 10/18/2021 [facility] Cardiology [address], [place] [address] [address], [place] [address] P:[phone] P:[phone] Echocardiographic Report Patient Name: DORY LYNNPatient ID: [id number] : [id number] Date: 10/18/2021 1:13:45 PM Gender: FAccession #: [id number] Tech: GMLocation: OR Ref.Provider: HILARY LEMUSHeight(Cm): 152 BSA: 1.67Weight(Kg): 70.31 [...] Site: Exam was interpreted at [facility]. Left Ventricle: Moderate concentric left ventricular [...] improved. Electronically Signed By: Jama Hoskins MD, [facility] 2021-10-18 17:05:58 CDT Hilary Lemus NP CV ECHO PROCEDURES Final Result documented in this encounter Visit Diagnoses Diagnosis Dilated cardiomyopathy (CMS/HCC) (HCC) Other primary cardiomyopathies documented in this encounter Care Teams Lawn Mower Mechanic Relationship Specialty Start Date End Date Brandie Rhoades NP [address] [place] [address] PCP - General Nurse Practitioner 08/09/21 documented as of this encounter
--- OUTSIDE RECORDS SUMMARY | 2024-07-12 16:43 | XMS_ITS | Encounter Summary ---
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
--- OUTSIDE RECORDS SUMMARY | 2024-07-12 16:43 | XMS_ITS | Encounter Summary ---
Author Organization [facility] Address [address] [facility] [address] [place] [address] Care Team Providers Care Solvent Station Attendant Name Role Phone Brandie Rhoades NP Primary Care Provider Encounter Details Date Type Department Care Team (Latest Contact Info) Description 09/22/2021 Anticoagulation Visit [facility] Cardiology [address] [place] [address] Daylin Gurrola, RUPESH Atrial fibrillation, unspecified type (HCC) (Primary Dx) Social History Tobacco Use Types Packs/Day Years Used Date Smoking Tobacco: Former Smokeless Tobacco: Never Comments Unknown Sex and Gender Information Value Date Recorded Sex Assigned at Not on file 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
--- OUTSIDE RECORDS SUMMARY | 2024-07-12 16:43 | XMS_ITS | Encounter Summary ---
Author Organization [facility] Address [address] [facility] [address] [place] [address] Care Team Providers Care Curator Natural History Museum Name Role Phone Brandie Rhoades NP Primary Care Provider [phone] Encounter Details Date Type Department Care Team (Latest Contact Info) Description 01/11/2022 Anticoagulation Visit [facility] Cardiology [address] [place] [address] Carolyne Trujillo, RN Atrial fibrillation, unspecified type (HCC) (Primary Dx) Social History Tobacco Use Types Packs/Day Years Used Date Smoking Tobacco: Former Smokeless Tobacco: Never Comments Unknown Sex and Gender Information Value Date Recorded Sex Assigned at Not on file 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 MEDICAL STAFF PHYSICIAN Gender Identity Not on file Sexual Orientation Not on file documented as of this encounter Plan of Treatment Not on file documented as of this encounter Visit Diagnoses Diagnosis Atrial fibrillation, unspecified type (HCC)- Primary documented in this encounter Care Teams Curator Natural History Museum Relationship Specialty Start Date End Date Brandie Rhoades NP [address] [place] [address] PCP - General Nurse Practitioner 08/09/21 documented as of this encounter
--- OUTSIDE RECORDS SUMMARY | 2024-07-12 16:43 | XMS_ITS | Encounter Summary ---
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 ENGINEER Gender Identity Not on file Sexual Orientation Not on file documented as of this encounter Plan of Treatment Not on file documented as of this encounter Visit Diagnoses Diagnosis Permanent atrial fibrillation (CMS/HCC) (HCC)- Primary Atrial fibrillation documented in this encounter Care Teams Co Founder And Ceo Relationship Specialty Start Date End Date Brandie Rhoades NP [address] [place] [address] PCP - General Nurse Practitioner 08/09/21 Mookie Dubois MD [address] [place] [address] Referring Physician Nephrology 02/20/22 documented as of this encounter
--- OUTSIDE RECORDS SUMMARY | 2024-07-12 16:43 | XMS_ITS | Encounter Summary ---
Author Organization [facility] Healthcare Address [address] [place] [address] Care Team Providers Care Imaging Tech Name Role Phone [place], Brandie Quan NP Primary Care Provider [phone] Mookie Dubois MD Unavailable [phone] Abigail Dougherty RN Unavailable [phone] Encounter Details Date Type Department Care Team (Late st Contact Info) Description 02/13/2024 Telephone [facility] Transplant Kidney [address] [facility] [phone] [place], [place] [id number] Gladys Charlton Social History Tobacco Use Types [...] on file 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 No txp eval approval required from either plan. Pt can proceed with Evaluation Testing. documented in this encounter Plan of Treatment Not on file documented as of this encounter Visit Diagnoses Not on filedocumented in this encounter Care Teams Imaging Tech Relationship Specialty Start Date End Date [place], Brandie Quan NP [address] [place] [address] PCP - General Nurse Practitioner 08/09/21 Mookie Dubois MD [address] [place] [address] Referring Physician Nephrology 02/20/22 Abigail Dougherty, RN [address] [address] Breast Puller 02/13/24 documented as of this encounter
--- OUTSIDE RECORDS SUMMARY | 2024-07-12 16:43 | XMS_ITS | Encounter Summary ---
Author Organization [facility] Healthcare Address [address] [place] [address] Care Team Providers Care Child Care Counselor Name Role Phone [place], Brandie Quan NP Primary Care Provider [phone] Mookie Dubois MD Unavailable [phone] Abigail Dougherty RN Unavailable [phone] Jama Hoskins MD Unavailable [phone] Encounter Details Date Type Department Care Team (Late st Contact Info) Description 02/22/2024 Documentation [facility] Transplant Kidney [phone] [place] [address] Ana Crenshaw Social History Tobacco Use Types [...] file 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 DIRECTOR PRODUCT MANAGEMENT Gender Identity Not on file Sexual Orientation [...] on filedocumented in this encounter Care Teams Child Care Counselor Relationship Specialty Start Date End Date Rhoades, Brandie Quan NP [address] [place] [address] PCP - General Nurse Practitioner 08/09/21 Mookie Dubois MD [address] [place] [address] Referring Physician Nephrology 02/20/22 Abigail Dougherty, RN [address] [facility] [address] [place] [address] Gluing Machine Feeder 02/13/24 Jama Hoskins MD [address] [facility] [address] [place] [address] Consulting Physician Cardiology 02/20/24 documented as of this encounter
--- OUTSIDE RECORDS SUMMARY | 2024-07-12 16:43 | XMS_ITS | Encounter Summary ---
Author Organization [facility] Healthcare Address [address] [place] [address] Care Team Providers Care Underwear Trimmer Name Role Phone Rhoades, Brandie Quan NP Primary Care Provider [phone] Mookie Dubois MD Unavailable [phone] Abigail Dougherty RN Unavailable [phone] Jama Hoskins MD Unavailable [phone] Reason for Referral * Diagnostic Imaging (Routine) - Authorized Specialty Diagnoses / Procedures Referred By Contac t Referred To Contact Diagnoses End stage renal disease (CMS/HCC) ([facility]) Procedures NM MPI SPECT (Rest and/or Stress) Multiple Studies Minda Rodriguez MD [address] [place] [address] Phone: tel: fax: [facility] [address] [place] [address] Referral ID Status Reason Start Date Expiration Date V isits Requested Visits Authorized [id number] Authorized 02/20/2024 03/21/2025 1 1 * Procedure (Routine) - Authorized Specialty Diagnoses / Procedures Referred By Contac t Referred To Contact Diagnoses End stage renal disease (CMS/HCC) (HCC) Procedures Pulmonary Function Test -[facility] U Adult PFT Lab- CAM-8D; Standard, Walk for Distance; Spirometry, Spirometry w/bronchodilator, DLCO and Lung Volumes Minda Rodriguez MD [address] [address] Phone: tel: fax: Referral ID Status Reason Start Date Expiration Date V isits Requested Visits Authorized [id number] Authorized 02/20/2024 03/21/2025 1 1 * MRI/CAT/PET Scan (Routine) - Authorized Specialty Diagnoses / Procedures Referred By Contac t Referred To Contact Radiology Diagnoses End stage renal disease (CMS/HCC) (HCC) Procedures CT Chest Abdomen Pelvis WO Contrast Minda Rodriguez MD [address] [address] [address] Phone: tel: fax: [address] [address] Referral ID Status Reason Start Date Expiration Date V isits Requested Visits Authorized [id number] Authorized 02/20/2024 03/21/2025 1 1 * Cardiology (Routine) - Authorized Specialty Diagnoses / Procedures Referred By Contac t Referred To Contact Diagnoses End stage renal disease (CMS/HCC) (HCC) Procedures ECG 12 lead Minda Rodriguez MD [address] [place] [address] [place] [address] Phone: tel: fax: [address] [address] Referral ID Status Reason Start Date Expiration Date V isits Requested Visits Authorized [id number] Authorized 02/20/2024 03/21/2025 1 1 * Diagnostic Imaging (Routine) - Authorized Specialty Diagnoses / Procedures Referred By Contac t Referred To Contact Diagnoses End stage renal disease (CMS/HCC) (HCC) Procedures XR Orthopantogram Panorex Minda Rodriguez MD [address] [facility] [address] [place] [address] Phone: tel: fax: [facility] 1 [facility] [place] [address] Referral ID Status Reason Start Date Expiration Date V isits Requested Visits Authorized [id number] Authorized 02/20/2024 03/21/2025 1 1 Encounter Details Date Type Department Care Team (Late st Contact Info) Description 02/20/2024 Telephone [facility] Transplant Kidney [address] [facility] [address] Mailstop [phone] [place], [place] [id number] Abigail Dougherty, RN [address] [facility] [address] [place] [address] Social History Tobacco Use Types Packs/Day Years [...] on file 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 Please schedule pt for the following Pt does dialysis PD Please obtain [phone]. No Transplant Education Video - this will [...] ABO/Rh Lab Routine End stage renal disease ([facility]) ([facility]) Expected: 02/23/2024, Expires: 02/19/2025 CBC with auto differential Lab Routine End stage renal disease ([facility]) ([facility]) Expected: 02/23/2024, Expires: 02/19/2025 CMV, IgG Blood Microbiology Routine End stage renal disease ([facility]) ([facility]) Expected: 02/23/2024, Expires: 02/19/2025 Comprehensive metabolic panel Lab Routine End stage renal disease ([facility]) ([facility]) Expected: 02/23/2024, Expires: 02/19/2025 Creatinine, urine, random Lab Routine End stage renal disease ([facility]) ([facility]) Expected: 02/23/2024, Expires: 02/19/2025 Corrine-Elizabeth virus (EBV) antibody panel Blood Microbiology Routine End stage renal disease ([facility]) ([facility]) Expected: 02/23/2024, Expires: 02/19/2025 Ferritin Lab Routine End stage renal disease ([facility]) ([facility]) Expected: 02/23/2024, Expires: 02/19/2025 Gamma GT Lab Routine End stage renal disease ([facility]) ([facility]) Expected: 02/23/2024, Expires: 02/19/2025 HIV 1/2 Antibody [...] Protime-INR Lab Routine End stage renal disease ([facility]) ([facility]) Expected: 02/23/2024, Expires: 02/19/2025 RPR Blood Microbiology Routine End stage renal disease ([facility]) ([facility]) Expected: 02/23/2024, Expires: 02/19/2025 Type and screen Lab Routine End stage renal disease ([facility]) ([facility]) Expected: 02/23/2024, Expires: 02/19/2025 Urinalysis reflex to microscopic Lab Routine End stage renal disease ([facility]) ([facility]) Expected: 02/23/2024, Expires: 02/19/2025 Varicella Zoster IgG antibody Blood Microbiology Routine End stage renal disease ([facility]) ([facility]) Expected: 02/23/2024, Expires: 02/19/2025 Uric acid Lab Routine End stage renal disease ([facility]) ([facility]) Expected: 02/23/2024, Expires: 02/19/2025 XR Orthopantogram Panorex Imaging Schedule Routine, Read Routine (OP Routine) End stage renal disease ([facility]) ([facility]) Expected: 02/20/2024, Expires: 02/19/2025 ECG 12 lead ECG Routine End stage renal disease ([facility]) ([facility]) 1 Occurrences starting 02/20/2024 until 02/19/2025 LR HLA Typing (Class I and Class II) Lab Routine End stage renal disease ([facility]) ([facility]) Expected: 02/23/2024, Expires: 02/19/2025 Collection Task for HLA Typing 1 Lab Routine End stage renal disease ([facility]) ([facility]) Expected: 02/23/2024, Expires: 02/19/2025 Collection Task for HLA Typing 2, Patient Lab Routine End stage renal disease ([facility]) ([facility]) Expected: 02/23/2024, Expires: 02/19/2025 HLA Antibody Screen - SAB (Class I and Class II) Lab Routine End stage renal disease ([facility]) ([facility]) Expected: 02/23/2024, Expires: 02/19/2025 Collection Task for HLA Antibody Screen Lab Routine End stage renal disease ([facility]) ([facility]) Expected: 02/23/2024, Expires: 02/19/2025 CT Chest Abdomen Pelvis WO Contrast Imaging Schedule Routine, Read Routine (OP Routine) End stage renal disease (CMS/HCC) ([facility]) Expected: 02/20/2024, Expires: 02/19/2025 Pulmonary Function Test -[facility] Adult PFT Lab- CAM-8D; Standard, Walk for Distance; Spirometry, Spirometry w/bronchodilator, DLCO and Lung Volumes PFT Routine End stage renal disease (CMS/HCC) ([facility]) 1 Occurrences starting 02/20/2024 until 02/19/2025 NM MPI SPECT (Rest and/or Stress) Multiple Studies Imaging Schedule Routine, Read Routine (OP Routine) End stage renal disease (CMS/HCC) ([facility]) Expected: 02/20/2024, Expires: 02/19/2025 documented as of this encounter Visit Diagnoses Diagnosis End stage renal disease (CMS/HCC) ([facility])- Primary End stage renal disease documented in this encounter Care Teams Underwear Trimmer Relationship Specialty Start Date End Date Brandie Rhoades NP [address] [place] [address] PCP - General Nurse Practitioner 08/09/21 Mookie Dubois MD [address] [place] [address] Referring Physician Nephrology 02/20/22 Abigail Dougherty, RN [address] [facility] [address] [place] [address] Recycler Forklift Driver Truck Driver 02/13/24 Jama Hoskins MD [address] [facility] [[email or web address] [address] [place] [address] Consulting Physician Cardiology 02/20/24 documented as of this encounter
--- OUTSIDE RECORDS SUMMARY | 2024-07-12 16:43 | XMS_ITS | Encounter Summary ---
Author Organization [facility] Healthcare Address [address] [place] [address] Care Team Providers Care Garment Manufacturing Supervisor Name Role Phone Rhoades, Brandie Quan NP Primary Care Provider Mookie Dubois MD Unavailable [phone] Encounter Details Date Type Department Care Team (Late st Contact Info) Description 05/04/2023 Telephone [facility] Medical Group Cardiology [address] [facility] 162 [facility] [address] [place] [address] Jama Hoskins MD [address] [facility] [address] [place] [address] Social History Tobacco Use Types [...] on file 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 * Telephone Encounter - ZuñigaMaria AJoi - 05/04/2023 9:05 AM CDT Pt returning call for Dominga in regard to lab work. Contact:[phone] documented in this encounter Plan of Treatment Not on file documented as of this encounter Visit Diagnoses Not on filedocumented in this encounter Care Teams Garment Manufacturing Supervisor Relationship Specialty Start Date End Date Rhoades, Brandie Quan NP [address] [place] [address] PCP - General Nurse Practitioner 08/09/21 Mookie Dubois MD [address] [place] [address] Referring Physician Nephrology 02/20/22 documented as of this encounter
--- OUTSIDE RECORDS SUMMARY | 2024-07-12 16:43 | XMS_ITS | Encounter Summary ---
Author Organization [facility] Healthcare Address [address] [place] [address] Care Team Providers Care Staff Command And Control Officer Name Role Phone Rhoades, Brandie Quan NP Primary Care Provider [phone] Mookie Dubois MD Unavailable [phone] Abigail Dougherty RN Unavailable [phone] Jama Hoskins MD Unavailable [phone] Reason for Referral * MRI/CAT/PET Scan (Routine) - Authorized Specialty Diagnoses / Procedures Referred By Contac t Referred To Contact Radiology Diagnoses ESRD (end stage renal disease) (CMS/HCC) (HCC) Procedures PET/CT Myocardial Perfusion Imaging (Multiple) Minda Rodriguez MD [address] [place] [address] Phone: tel: fax: [address] [address] Referral ID Status Reason Start Date Expiration Date V isits Requested Visits Authorized [id number] Authorized 02/26/2024 03/27/2025 2 2 Encounter Details Date Type Department Care Team (Late st Contact Info) Description 02/26/2024 Orders Only [facility] Transplant Kidney [address] [facility] [address] Mailstop [phone] [place] [address] Abigail Dougherty, RN 4590 [facility] [address] [place] [address] ESRD (end stage renal disease) ([facility]) ([facility]) (Primary Dx) Social History Tobacco [...] on file 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 Gender Identity Not on file Sexual Orientation Not on file documented as of this encounter Plan of Treatment Scheduled Orders Name Type Priority Associated Diagnoses Orde r Schedule PET/CT Myocardial Perfusion Imaging (Multiple) Imaging Schedule Routine, Read Routine (OP Routine) ESRD (end stage renal disease) (CMS/HCC) ([facility]) Expected: 02/26/2024, Expires: 02/25/2025 documented as of this encounter Visit Diagnoses Diagnosis ESRD (end stage renal disease) ([facility]) ([facility])- Primary End stage renal disease documented in this encounter Care Teams Staff Command And Control Officer Relationship Specialty Start Date End Date Brandie Rhoades NP [address] [place] [address] PCP - General Nurse Practitioner 08/09/21 Mookie Dubois MD [address] [place] [address] Referring Physician Nephrology 02/20/22 Abigail Dougherty RN [address] [facility] [address] [place] [address] Global Sales Executive 02/13/24 Jama Hoskins MD 68[address] [facility] [address] [id number] Consulting Physician Cardiology 02/20/24 documented as of this encounter
--- OUTSIDE RECORDS SUMMARY | 2024-07-12 16:43 | XMS_ITS | Encounter Summary ---
Author Organization [facility] Healthcare Address [address] [place] [address] Care Team Providers Care In Classroom Tutor Name Role Phone [place], Brandie Quan NP Primary Care Provider [phone] Mookie Dubois MD Unavailable [phone] Abigail Dougherty RN Unavailable [phone] Jama Hoskins MD Unavailable [phone] Encounter Details Date Type Department Care Team (Late st Contact Info) Description 02/27/2024 Documentation [facility] Transplant Kidney [phone] [place] [address] Annalise Mays Social History Tobacco Use Types [...] on file 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 Gender Identity Not on file Sexual Orientation [...] on filedocumented in this encounter Care Teams In Classroom Tutor Relationship Specialty Start Date End Date [place], Brandie Quan NP [address] [place] [address] PCP - General Nurse Practitioner 08/09/21 Mookie Dubois MD [address] [place] [address] Referring Physician Nephrology 02/20/22 Abigail Dougherty, RN [address] [facility] [address] [place] [address] Superintendent Job 02/13/24 Jama Hoskins MD [address] [address] Consulting Physician Cardiology 02/20/24 documented as of this encounter
--- OUTSIDE RECORDS SUMMARY | 2024-07-12 16:43 | XMS_ITS | Encounter Summary ---
Author Organization [facility] Healthcare Address [address] [place] [address] Care Team Providers Care Petroleum Refinery Operator Name Role Phone [place], Brandie Quan NP Primary Care Provider [phone] Mookie Dubois MD Unavailable [phone] Abigail Dougherty RN Unavailable [phone] Encounter Details Date Type Department Care Team (Late st Contact Info) Description 02/18/2024 Telephone [facility] Medical Group Cardiology 6810 [facility] [address] [address] Jama Hoskins MD [address] [facility] [address] [facility] [address] [place] [address] Social History Tobacco Use Types [...] on file 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 [facility] Thank you. Contact: documented in this encounter [...] documented as of this encounter Care Teams Petroleum Refinery Operator Relationship Specialty Start Date End Date Brandie Rhoades NP [address] [place] [address] PCP - General Nurse Practitioner 08/09/21 Mookie Dubois MD [address] [facility] [place] [address] Referring Physician Nephrology 02/20/22 Abigail Dougherty, RN [address] [address] Knit Goods Washer 02/13/24 documented as of this encounter
--- OUTSIDE RECORDS SUMMARY | 2024-07-12 16:43 | XMS_ITS | Encounter Summary ---
Author Organization [facility] Address [facility] [facility] [place] [address] Care Team Providers Care Elevator Tender Name Role Phone Unavailable Primary Care Provider [...] Coronavirus/COVID-19? No / Unsure 05/23/2022 2:50 PM MANAGER UNDERWRITING documented as of this encounter Plan of Treatment Not on file documented as of this encounter Visit Diagnoses Not on filedocumented in this encounter
--- OUTSIDE RECORDS SUMMARY | 2024-07-12 16:43 | XMS_ITS | Encounter Summary ---
Author Organization [facility] Address [address] [facility] [place] [address] Care Team Providers Care Lining Parts Sewer Name Role Phone Unavailable Primary Care Provider Unavailabl e Encounter Details Date Type Department Care Team (Late st Contact Info) Description 06/23/1996 Orders Only [facility] [address] [place] [address] ProviderPeggy MD Social History Tobacco Use Types [...] MICRO EXAM MONIQUE 06/23/1996 7: 44 AM JUNIOR PROGRAMMER documented in this encounter Results * GROSS + MICRO EXAM (06/23/1996 7:44 AM JUNIOR PROGRAMMER) Result CASE NUMBER [id number] Comment: ORDERING PHYSICIAN ?? SPECIMEN TYPE ?Placenta [...] maternal aspect, revealing no additional gross abnormalities. ??Aircraft Life Support Fitter sections are submitted as follows ?? A, [...] pathologic diagnosis. ?? *Snomed Code 1 ? [id number] - [id number] Brickmason Apprentice ? kn Pathologist ?Erlin Uriostegui M.D. MISCELLANEOUS SAMPLES / Unknown 06/23/1996 7:44 AM JUNIOR PROGRAMMER 06/23/1996 7:44 AM JUNIOR PROGRAMMER Historical Provider LAB - PATHOLOGY/C YTOLOGY ORDERABLES documented in this encounter Visit Diagnoses Not on filedocumented in this encounter
--- OUTSIDE RECORDS SUMMARY | 2024-07-12 16:43 | XMS_ITS | Patient Health Summary ---
Author Organization [facility] Address [address] [address] Care Team Providers Care Mechanical Assembly Technician Name Role Phone Unavailable Primary Care Provider Unavailabl e Note from [facility],non-owned Affiliates and Associated Physician Practices is amultiple site organization consisting of ambulatory clinics and hospital sitesin [place], [place], [place] and [place]. This disclosure is being madepursuant to the Care Everywhere program and may not contain all information available regarding this patient. Last updated 18.[facility] Allergies * unknown-antibiotic? [Other](Other) Medications * [...] IR CENTRAL LINE REMOVAL (05/29/2022 7:44 AM DELIVERY SALES WORKER) Anatomical Region Laterality Modality X-Ray Angiograph y Narrative 05/29/2022 12:35 PM DELIVERY SALES WORKER Bladimir Waite MD ? 05/29/2022 12:38 PM Dory Lynn 1960 [id number] Interventional Nephrology Procedure Date: ??05/29/2022 Attending Surgeon [...] PLACEMENT: REMOVAL OF TUNNELED CENTRALLY INSERTED CVC; [id number] Findings: 1. ??A 32 cm tip to [...] jugular vein venotomy and hemostasis obtained. ??Dory Lnyn tolerated the procedure well with 1% lidacaine [...] Waite MD 05/29/2022 12:35 PM [id number] - [phone] Mookie Dubois MD [facility] dialysis. Mookie Dubois MD IR ORDERABLES * GROSS + MICRO EXAM (06/23/1996 7:44 AM DELIVERY SALES WORKER) Result CASE NUMBER [id number] Comment: ORDERING PHYSICIAN ?? SPECIMEN TYPE ?Placenta [...] maternal aspect, revealing no additional gross abnormalities. ??Hard Rock Miner sections are submitted as follows ?? A, [...] pathologic diagnosis. ?? *Snomed Code 1 ? [id number] - [id number] Construction Lineman ? kn Pathologist ?Erlin Uriostegui M.D. MISCELLANEOUS SAMPLES / Unknown 06/23/1996 7:44 AM DELIVERY SALES WORKER 06/23/1996 7:44 AM DELIVERY SALES WORKER Historical Provider LAB - PATHOLOGY/C YTOLOGY ORDERABLES
--- OUTSIDE RECORDS SUMMARY | 2024-07-12 16:43 | XMS_ITS | Encounter Summary ---
Author Organization [facility] Healthcare Address [address] [place] [address] Care Team Providers Care Elevator Constructor Helper Name Role Phone [place], Brandie Quan NP Primary Care Provider [phone] Mookie Dubois MD Unavailable [phone] Abigail Dougherty RN Unavailable [phone] Reason for Referral * Transplant (Routine) - Authorized Specialty Diagnoses / Procedures Referred By Contac t Referred To Contact Transplant Diagnoses ESRD (end stage renal disease) (CMS/[facility]) (HCC) Minda Rodriguez MD [address] [place] [address] Phone: tel: fax: [facility] and [facility] Transplant Kidney 45[address] [facility] [address] Mailstop [phone] [place] [address] Phone: tel: fax: Referral ID Status Reason Start Date Expiration Date Visits Requested Visits Authorized [id number] Authorized Specialty Services Required 02/13/2024 02/12/2034 1 1 Question Answer Organ Kidney [[id number]] Please select the performing region: [facility] [[id number]] Please select the performing department: [facility] KIDNEY TRANSPLANT [[id number]] Reason for Visit * Reason Onset Date Comments Referral - Kidney Txp 02/12/2024 Encounter Details Date Type Department Care Team (Late st Contact Info) Description 02/12/2024 Telephone [facility] and [facility] Transplant Kidney [address] [facility] [address] Mailstop [phone] [place] [address] Loli Moran Referral - Kidney Txp Social [...] on file 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 Gender Identity Not on file Sexual Orientation [...] Referral Routine ESRD (end stage renal disease) ([facility]/HCC) (HCC) Ordered: 02/13/2024 documented as of this encounter Visit Diagnoses Diagnosis ESRD (end stage renal disease) (CMS/HCC) (HCC)- Primary End stage renal disease documented in this encounter Care Teams Elevator Constructor Helper Relationship Specialty Start Date End Date Brandie Rhoades NP [address] [place] [address] PCP - General Nurse Practitioner 08/09/21 Mookie Dubois MD [address] [place] [address] Referring Physician Nephrology 02/20/22 Abigail Dougherty, RN [address] [address] Pathology Laboratory Technologist 02/13/24 documented as of this encounter
--- OUTSIDE RECORDS SUMMARY | 2024-07-12 16:43 | XMS_ITS | Clinical Summary ---
Author Organization [facility] [address] Address [address] [place] [address] Care Team Providers Care Brush Finisher Name Role Phone [place], Brandie Quan NP Primary Care Provider [phone] Mookie Dubois MD Unavailable [phone] Abigail Dougherty RN Unavailable [phone] Jama Hoskins MD Unavailable [phone] Allergies Active Allergy Reactions Criticality Noted Date [...] Department Care Team Description 06/05/2024 Anticoagulation Visit [facility] Medical [facility] Cardiology [address] [place] [phone] Bull Jaramillo RN Permanent atrial fibrillation (CMS/HCC) (HCC) (Primary Dx) 06/03/2024 Telephone [facility] Medical [facility] Cardiology [address] [place] [phone] Jama Hoskins MD INR order 05/30/2024 2:15 PM [place] Office Visit [facility] Cardiology [address] [place] [phone] Jama Hoskins MD Permanent atrial fibrillation (CMS/HCC) (HCC) (Primary Dx); Chronic anticoagulation 05/14/2024 Telephone [facility] Transplant Kidney [address] [facility] [address] [phone] [place], [place] [phone] Gladys Charlton 05/02/2024 Documentation [facility] [address] [facility] [address] 11-31-270 [place] [address] Annalise Mays 05/01/2024 Telephone [facility] [address] [facility] [address] 28-43-694 [place] [address] Abigail Dougherty RN 05/01/2024 Telephone [facility] [address] [facility] [address] [phone] [place] [address] Gladys Charlton 05/01/2024 Telephone [facility] [address] [facility] [address] Mailstop 03-46-074 [place] [address] Annalise Mays from Last 3 Months Immunizations Name Administration Dates Next Due Hep B Vaccine 03/04/2022,,11/25/2021,10/14/2021,2021 Influenza, Unspecified 05/03/2023 Pneumococcal, Unspecified 08/08/2021 Tdap 12/19/2023,09/27/2023,2022 Surgical History Surgery Date Site/Laterality Comments SECTION 1 TONSILLECTOMY as a child PORTACATH PLACEMENT right upper chest Medical History Medical History Date Comments SOB (shortness of breath) Acute kidney failure, unspecified ([facility]) A-fib (CMS/[facility]) ([facility] CHF (congestive heart failure) ([facility]) ([facility]) Pneumonia Pleural effusion Hypertension Eczema feet, arms which is resolved Wears glasses Dental root implant present Walker as ambulation aid Permanent central venous catheter in place right upper chest Dialysis patient ([facility]) Family History Medical History Relation Name [...] on file 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 BELL VALET Gender Identity Not on file Sexual Orientation Not on file Obstetrics History Last Filed Vital Signs Vital Sign Reading Time Taken Comments Blood Pressure 130/88 05/30/2024 2:24 PM BELL [place]ET Pulse 108 05/30/2024 2:24 PM BELL [place]ET Temperature 36.4 ??C (97.5 ??F) 04/03/2022 9:15 AM CD T Respiratory Rate 18 04/03/2022 9:45 AM CDT Oxygen Saturation 98% 05/30/2024 2:24 PM BELL VALET Inhaled Oxygen Concentration - - Weight 93.9 kg (207 lb) 05/30/2024 2:24 PM BELL [place]ET Height 152.4 cm (5') 05/30/2024 2:24 PM [place]LL [place]ET Body Mass Index 40.43 05/30/2024 2:24 PM BELL VALET Plan of Treatment Health Maintenance Due Date [...] this topic Medical Devices Implanted Type Area Tank Wagon Operator Device Identifier Shelf Expiration Date Model / Serial / Lot Dental Implant Other - see comments Description:Upper [employer] [place] 15fr 62cm 2 Cuff Radiopaque Peritoneal Curl Catheter [id number] - [id number] Implanted:Qty: 1 on 04/03/2022 by Sulaiman Hi MD at [facility] Left: Abdomen [employer] 10/16/2026 [id number] / / [id number] Procedures Procedure Name Priority Date/Time Associated Diagnosis Comments PROTIME-INR Routine 06/04/2024 12:25 PM [place]LL [place]ET Permanent atrial fibrillation (CMS/HCC) (HCC) from Last 3 Months Results * (ABNORMAL) Protime-INR (06/04/2024 12:25 PM [place]LL [place]ET) INR 3.1(H) [employer]Dru Garcia Comment: Reference Range ? 0.9-1.1 Moderate-intensity Warfarin Therapy 2.0-3.0 Higher-intensity Warfarin Therapy ?? 3.0-4.0 PT 30.8(H) 9.0 - 11.5 sec Guided TherapeuticsDru Garcia Comment: For additional information, please refer to http://education.MightyNest/faq/OYK334 (This link is being provided for informational/ educational purposes only.) Blood 06/04/2024 12:2 5 PM BELL [place]ET 06/04/2024 12:26 PM [place] Jama Hoskins MD LAB BLOOD ORDERABLES Fin al Result Performing Organization Address City/State/[facility] Co de Phone Number [facility] [address] [place] [address] from Last 3 Months Insurance MEDICARE IDAR MEDICARE MEDICARE Care Teams Brush Finisher Relationship Specialty Start Date End Date Brandie Rhoades NP [address] [place] [address] PCP - General Nurse Practitioner 08/09/21 Mookie Dubois MD [address] [place] [address] Referring Physician Nephrology 02/20/22 Abigail Dougherty, RN [address] [facility] [address] [place] [address] Housekeeper And Laundry Assistant 02/13/24 Jama Hoskins MD [address] [facility] [address] [place] [address] Consulting Physician Cardiology 02/20/24
--- OUTSIDE RECORDS SUMMARY | 2024-07-12 16:43 | XMS_ITS | Encounter Summary ---
Author Organization [facility] Healthcare Address [address] [place] [address] Care Team Providers Care Life Enrichment Director Name Role Phone Rhoades, Brandie Quan NP Primary Care Provider [phone] Mookie Dubois MD Unavailable [phone] Reason for Visit * Auth/Cert Specialty Diagnoses / Procedures Referred By Christiano dior Referred To Contact Diagnoses END STAGE RENAL DISEASE Procedures DC LAP INSERTION TUNNELED INTRAPERITONEAL CATHETER DC LAP OMENTOPEXY ADD-ON LAPAROSCOPIC INSERTION PERITONEAL DIALYSIS CATHETER, LYSIS OF ADHESIONS, OMENTOPEXY, POSSIBLE OPEN Referral ID Status Reason Start Date Expiration Date Visits Re quested Visits Authorized [id number] 1 1 Encounter Details Date Type Department Care Team (Late st Contact Info) Description 04/03/2022 7:30 AM CDT - 04/03/2022 8:40 AM CDT Surgery [facility] OR [address] [place] [phone] Sulaiman Hi MD [address] [place] [id number] LAPAROSCOPIC INSERTION PERITONEAL DIALYSIS CATHETER, LYSIS OF [...] on file 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 Gender Identity Not on file Sexual [...] * Continuous Ambulatory Peritoneal Dialysis (Discharge Care) (Serbian) documented in this encounter Medications at Time [...] PMH: Past Medical History: Diagnosis Date A-fib ([facility]) ([facility]) Acute kidney failure, unspecified ([facility]) (HCC) CHF (congestive heart failure) ([facility]) ([facility] Dental root implant present Dialysis patient ([facility]) ([facility]) Eczema feet, arms which is resolved [...] catheter Anesthesia: General Surgeon: Sulaiman Hi MD Senior Program Planner: [email or web address] Consultant: Veronica Oliveros RN Scrub: Carmelo Perez ST; Nga Akhtar RN Orientee Client Consultant: Rosetta Harvey RN; Alexandria Turcios RN Anesthesia: General Anesthesiologist: Sheridan Leroy MD DISTRIBUTION ESTIMATOR: Makenna Ceballos CRNA Specimen: None Drains: None [...] from the original note were not included. [place] [id number] [place], [place] [address] Surgery Reminder Checklist: Please arrive to [facility]'s Outpatient Surgery Department for scheduled surgeryon [...] at least 24 hours prior to surgery. [place] your teeth morning of procedure. Use mouth [...] please call the Admission Testing Center at [phone]. Thank you, Alfred RN (instructions sent via [...] 12 lead (04/03/2022 6:45 AM CDT) Pathologist [facility] Ventricular Rate EKG/Min 74 BPM [facility] QRS-Interval (MSEC) 106 ms [facility] QT-Interval (MSEC) 464 ms [facility] QTc 515 ms [facility] R [place] 36 degrees [facility] T [place] 192 degrees [facility] Diagnosis Atrial fibrillation ST & T wave abnormality, consider inferior ischemia ST & T wave abnormality, consider anterolateral ischemia Prolonged QT Abnormal ECG When compared with ECG of 07-AUG-2000 10:12, Atrial fibrillation has replaced Sinus rhythm ST now depressed in Anterior leads T wave inversion more evident in Anterior leads [facility] 04/03/2022 6:45 AM CDT 04/03/2022 7:21 AM CDT us Cruzito Cerda DO ECG ORDERABLES Final Result [facility] * eGFR (04/03/2022 6:24 AM CDT) Pathologist [facility] eGFR 6 mL/min/1. 73 m2 LAINE HARPER [...] Sheridan Leroy MD LAB BLOOD ORDERABLES Samina barbsoa Result [place] [id number] [facility] Department of Laboratories [place], [place] [phone] * (ABNORMAL) Differential, auto (04/03/2022 6:24 AM CDT) Pathologist [facility] Neutrophil abs 6.0 1.7 - 6.5 K/cumm [facility] Imm gran abs 0.1 0.0 - 0.1 K/cumm [facility] Lymphocyte abs 1.0 0.8 - 3.3 K/cumm [facility] Monocyte abs 1.0(H) 0.2 - 0.8 K/cumm [facility] Eosinophil abs 0.5 0.0 - 0.5 K/cumm [facility] Basophil abs 0.0 0.0 - 0.1 K/cumm [facility] Neutrophil pct 69.6 % [facility] Comment: Interpretive Data Percent cell count reference ranges are not reported, since discordance with absolute values may lead to misinterpretation of CBC data. Current Interpretive Data was last revised on 2017. Imm gran pct 0.7 % [facility] Comment: Interpretive Data Percent cell count reference ranges are not reported, since discordance with absolute values may lead to misinterpretation of CBC data. Current Interpretive Data was last revised on 2017. Lymphocyte pct 11.8 % [facility] Comment: Interpretive Data Percent cell count reference ranges are not reported, since discordance with absolute values may lead to misinterpretation of CBC data. Current Interpretive Data was last revised on 2017. Monocyte pct 11.6 % [facility] Comment: Interpretive Data Percent cell count reference ranges are not reported, since discordance with absolute values may lead to misinterpretation of CBC data. Current Interpretive Data was last revised on 2017. Eosinophil pct 5.8 % [facility] Comment: Interpretive Data Percent cell count reference ranges are not reported, since discordance with absolute values may lead to misinterpretation of CBC data. Current Interpretive Data was last revised on 2017. Basophil pct 0.5 % [facility] Comment: Interpretive Data Percent cell count reference ranges are not reported, since discordance with absolute values may lead to misinterpretation of CBC data. Current Interpretive Data was last revised on 2017. Blood 04/03/2022 6:24 AM CDT 04/03/2022 6:28 AM CDT us Cruzito Cerda DO LAB BLOOD ORDERABLES Final Re sult [facility] [address] [facility] Department [place] [address] * (ABNORMAL) Basic metabolic panel (04/03/2022 6:24 AM CDT) Sodium 139 135 - 145 mmol/L [facility] Potassium, pl 4.3 3.3 - 4.9 mmol/L [facility] Chloride 98 97 - 110 mmol/L [facility] CO2 28 22 - 32 mmol/L [facility] Anion gap 13 2 - 15 mmol/L [facility] BUN 58(H) 8 - 25 mg/dL [facility] Creatinine 7.60(H) 0.60 - 1.10 mg/dL [facility] Glucose 93 70 - 199 mg/dL [facility] Comment: Interpretive Data Fasting glucose >/= 126 [...] 2017. Calcium 9.7 8.5 - 10.3 mg/dL [facility] Blood 04/03/2022 6:24 AM CDT 04/03/2022 6:28 AM CDT Sheridan Leroy MD LAB BLOOD ORDERABLES Samina l Result Performing Organization Address [facility] de Phone Number [address] [employer] [place], [place] [phone] * Protime-INR (04/03/2022 6:24 AM CDT) PT 14.5 12.0 - 14.6 sec [facility] INR 1.1 0.9 - 1.2 [facility] Comment: Ref Range High Interpretive data Oral [...] sult Performing Organization Address [facility] Co de Phone Number [address] [employer] [place], [place] [phone] * (ABNORMAL) CBC with auto differential (04/03/2022 6:24 AM CDT) WBC 8.6 3.8 - 9.9 K/cumm [facility] Hgb 10.0(L) 11.9 - 15.5 g/dL [facility] Hct 31.2(L) 35.6 - 45.5 % [facility] Plt 261 150 - 400 K/cumm [facility] MPV 9.6 9.1 - 12.3 fL [facility] RBC 3.09(L) 3.90 - 5.20 M/cumm [facility] MCV 101.0(H) 81.3 - 96.4 fL [facility] MCH 32.4 27.1 - 33.3 pg [facility] MCHC 32.1(L) 32.3 - 35.7 g/dL [facility] RDW CV 13.9 11.1 - 14.9 % [facility] RDW SD 51.0(H) 35.7 - 48.1 fL [facility] NRBC abs 0.00 0.00 - 0.01 K/cumm [facility] Blood 04/03/2022 6:24 AM CDT 04/03/2022 6:28 AM CDT us Cruzito Cerda DO LAB BLOOD ORDERABLES Final Re sult [address] Department [place] [address] documented in this encounter Visit Diagnoses Not [...] Call MD for each episode of hypoglycemia. CONDENSER OPERATOR STATES GLUTOSE-15 CONTAINS GLUCOSE 40% W/W (50% [...] Call MD for each episode of hypoglycemia. CONDENSER OPERATOR STATES GLUTOSE-15 CONTAINS GLUCOSE 40% W/W (50% [...] Call MD for each episode of hypoglycemia. CONDENSER OPERATOR STATES GLUTOSE-15 CONTAINS GLUCOSE 40% W/W (50% [...] 04/03/2022 documented in this encounter Care Teams Life Enrichment Director Relationship Specialty Start Date End Date Brandie Rhoades NP [address] [place] [address] PCP - General Nurse Practitioner 08/09/21 Mookie Dubois MD [address] [place] [address] Referring Physician Nephrology 02/20/22 documented as of this encounter
--- OUTSIDE RECORDS SUMMARY | 2024-07-12 16:43 | XMS_ITS | Encounter Summary ---
Author Organization [facility] Healthcare Address [address] [place] [address] Care Team Providers Care Clothes Shaker Name Role Phone [place], Brandie Quan NP Primary Care Provider [phone] Mookie Dubois MD Unavailable [phone] Encounter Details Date Type Department Care Team (Late st Contact Info) Description 01/03/2024 Telephone [facility] Medical Group Cardiology [address] [facility] [address] [facility] [address] [place] [address] Jama Hoskins MD [address] [facility] [address] [place] [address] Social History Tobacco Use Types [...] on file 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
--- OUTSIDE RECORDS SUMMARY | 2024-07-12 16:44 | XMS_ITS | Encounter Summary ---
Author Organization [facility] Medical Group Address [address] [facility] [address] [place] [address] Care Team Providers Care Plate Take Out Worker Name Role Phone No, Physician Primary Care Provider [phone] Encounter Details Date Type Department Care Team (Late st Contact Info) Description 07/18/2021 Orders Only [facility] Medical Group Cardiology [address] [place] [address] Jama Hoskins MD [address] [place] [address] [place] [address] Social History Tobacco Use Types Packs/Day Years Used Date Smoking Tobacco: Never Assessed Comments Unknown Sex and Gender Information Value Date Recorded Sex Assigned at Not on file 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 SECURITY GUARD Gender Identity Not on file Sexual Orientation [...] on filedocumented in this encounter Care Teams Plate Take Out Worker Relationship Specialty Start Date End Date No, Physician PCP - General 07/17/21 08/08/21 documented as of this encounter
--- OUTSIDE RECORDS SUMMARY | 2024-07-12 16:44 | XMS_ITS | Encounter Summary ---
Author Organization [facility] Medical Group Address [address] [facility] [address] [place] [address] Care Team Providers Care Innovation Manager Name Role Phone VeronaUcheBrandiegricelda Quan NP Primary Care Provider [phone] Encounter Details Date Type Department Care Team (Late st Contact Info) Description 08/29/[address] [facility] Medical Group Cardiology [address] [facility] 162 [facility] [address] [place] [address] Jama Hoskins MD [address] [facility] [address] [place] [address] Social History Tobacco Use Types Packs/Day Years Used Date Smoking Tobacco: Former Smokeless Tobacco: Never Comments Unknown Sex and Gender Information Value Date Recorded Sex Assigned at Not on file 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 GREY IRON MOLDER Gender Identity Not on file Sexual Orientation [...] Jacqui Shen MA - 08/29/2021 3:48 PM GREY IRON MOLDER Refills sent to the pharmacy until appointment in September IRON MOLDER * Telephone Encounter - Dimitri Taylor - 08/29/2021 3:16 PM CST Pt requesting refill for Warfarin 2.5 mg and Losartan [address] [facility] pharmacy in [place]. Contact: IRON MOLDER documented in this encounter Plan of Treatment [...] documented as of this encounter Care Teams Innovation Manager Relationship Specialty Start Date End Date Brandie Rhoades NP [address] [place] [address] PCP - General Nurse Practitioner 08/09/21 documented as of this encounter
--- OUTSIDE RECORDS SUMMARY | 2024-07-12 16:44 | XMS_ITS | Encounter Summary ---
Author Organization [facility] Address [address] [place] [address] Care Team Providers Care Banbury Machine Operator Name Role Phone Brandie Rhoades NP Primary Care Provider [phone] Reason for Referral * Cardiology (Routine) - Closed Specialty Diagnoses / Procedures Referred By Contac t Referred To Contact Diagnoses Dilated cardiomyopathy (CMS/HCC) (HCC) Procedures Transthoracic Echo (TTE) Limited Lydia Lemus NP [address] [address] Phone: tel: fax: [facility] Referral ID Status Reason Start Date Expiration Date Visits Re quested Visits Authorized [id number] Closed 10/06/2021 10/06/2022 1 1 RUCTOR OF SPANISH Reason for Visit * Reason Comments Hospital Follow Up Shortness of Breath Atrial Fibrillation Encounter Details Date Type Department Care Team (Late st Contact Info) Description 08/09/2021 2:00 PM INSTRUCTOR OF SPANISH Office Visit [facility] Cardiology [address] [facility] [address] [address] Lydia Lemus NP [address] [facility] [address] [address] Persistent atrial fibrillation (HCC) (Primary [...] on file 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 INSTRUCTOR OF SPANISH Gender Identity Not on file Sexual Orientation Not on file documented as of this encounter Last Filed Vital Signs Vital Sign Reading Time Taken Comments Blood Pressure 130/76 08/09/2021 2:17 PM INSTRUCTOR OF SPANISH Pulse 109 08/09/2021 2:17 PM INSTRUCTOR OF SPANISH Temperature - - Respiratory Rate - - Oxygen Saturation 99% 08/09/2021 2:17 PM INSTRUCTOR OF SPANISH Inhaled Oxygen Concentration - - Weight 76.9 kg (169 lb 8 oz) 08/09/2021 2:17 PM INSTRUCTOR OF SPANISH Height 152.4 cm (5') 08/09/2021 2:17 PM INSTRUCTOR OF SPANISH Body Mass Index 33.1 08/09/2021 2:17 PM INSTRUCTOR OF SPANISH documented in this encounter Patient Instructions * Patient Instructions* Lydia Lemus NP - 08/09/2021 2:00 PM INSTRUCTOR OF SPANISH We should schedule a cardioversion in the next 1-2 weeks. Please call us as soon as you talk to family and pick a date that works for you. RUCTOR OF SPANISH documented in this encounter Progress Notes * Lydia Lemus NP - 08/09/2021 2:00 PM CST Images from the original note were not included. [facility] Cardiology [address] [place] [address] Date of Visit: 08/09/2021 Patient ID: Dory [...] and CKD, former smoker. She presented to [facility] on 07/16/2021 with complaint of shortness of [...] discharged on 07/30/2021. 08/09/2021 hospital follow-up with COILER OPERATOR: This is her first encounter in our office. Her only complaint is feeling tired intermittently but not all the time. She is currently getting hemodialysis at [facility] in [place] on M,W,F. She has had some nose [...] outlined in the HPI above) July 2021 [facility] inpatient records including cardiology consultation note from [...] 08/09/2021 SEN De Souza- Nurse Practitioner with [facility] [place] This note is dictated and transcribed using Viptable Direct Software. Target Aircraft Controller variancesmay occur. Despite proofreading, typographical errors may occur. RUCTOR OF SPANISH documented in this encounter Miscellaneous Notes * Addendum Note - Dominga Diaz MA - 08/09/2021 2:00 PM CSTAddended by: DOMINGA DIAZ on: 08/11/2021 10:38 AM Modules accepted: Orders RUCTOR OF SPANISH documented in this encounter Plan of Treatment Not on file documented as of this encounter Procedures Procedure Name Priority Date/Time Associated Diagnosis Comments POCT LIPID PANEL Routine 08/09/2021 3:20 PM INSTRUCTOR OF SPANISH Lipid screening ECG 12-LEAD Routine 08/09/2021 Persistent atrial fibrillation (HCC) documented in this encounter Results * TRANSTHORACIC ECHO (TTE) LIMITED/FOLLOW UP WO DOPPLER/CF WO CONTRAST (10/18/2021 2:41 PM CDT) Anatomical Region Laterality Modality Ultrasound 10/18/2021 1:13 PM CDT Narrative 10/18/2021 5:06 PM CDT [facility] Cardiology [address] [facility] [address] [address], [place] [address] [address], [place] [address] P:[phone] P:[phone] Echocardiographic Report Patient Name: DORY LYNN : 1960 Study Date: 10/18/2021 1:13:45 PM Gender: F Tech: Location: [place] Ref.Provider: LYDIA LEMUS Height(Cm): 152 BSA: 1.67 Weight(Kg): 70.31 Heart Rate: 94 BP: 144/94 Quality: Good Order Provider: LYDIA LEMUS Procedures: Echocardiographic Report: Transthoracic [...] Findings: Interpretation Site: Exam was interpreted at [facility]. Left Ventricle: Moderate concentric left ventricular hypertrophy. [...] improved. Electronically Signed By: Jama Hoskins MD, [facility] 2021-10-18 17:05:58 CDT Procedure Note Jama Hoskins MD - 10/18/2021 [facility] Cardiology [address], [place] [address] [address] [facility] [address], [place] [address] P:[phone] P:[phone] Echocardiographic Report Patient Name: DORY LYNNPatient ID: [id number] : [id number] Date: 10/18/2021 1:13:45 PM Gender: FAccession #: [id number] Tech: GMLocation: [place] Ref.Provider: LYDIA LEMUSHeight(Cm): 152 BSA: 1.67Weight(Kg): 70.31 [...] Findings: Interpretation Site: Exam was interpreted at [facility]. Left Ventricle: Moderate concentric left ventricular hypertrophy. [...] improved. Electronically Signed By: Jama Hoskins MD, [facility] 2021-10-18 17:05:58 CDT Lydia Lemus NP CV ECHO PROCEDURES Final Result * POCT lipid panel (08/09/2021 3:20 PM INSTRUCTOR OF SPANISH) Cholesterol, POC 127 mg/dL Comment:GLU = 107 HDL, POC 53 mg/dL Triglycerides, POC 558 mg/dL LDL Cholesterol POC N/A mg/dL Chol/HDL Ratio, POC 2.4 Non-HDL Cholesterol, POC 74 mg/dL Cholesterol Total, POC 127 mg/dL Capillary blood 08/09/2021 3 :20 PM INSTRUCTOR OF SPANISH Lydia Lemus NP POINT OF CARE TEST [...] 2 added in this encounter Care Teams Banbury Machine Operator Relationship Specialty Start Date End Date Brandie Rhoades NP [address] [place] [address] PCP - General Nurse Practitioner 08/09/21 documented as of this encounter
--- OUTSIDE RECORDS SUMMARY | 2024-07-12 16:44 | XMS_ITS | Encounter Summary ---
Author Organization [facility] Address [address] [facility] [address] [place] [address] Care Team Providers Care Software Project Lead Name Role Phone VeronaBrandie Avelina WOODALL Primary Care Provider [phone] Encounter Details Date Type Department Care Team (Late st Contact Info) Description 09/15/[address] 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 PILOT * Telephone Encounter - Taylor Mosley - 09/15/2021 1:13 PM CST Pt requesting refill for Amiodarone 200 mg. Contact: PILOT documented in this encounter Plan of Treatment Not on file documented as of this encounter Visit Diagnoses Not on filedocumented in this encounter Discontinued Medications Medication Sig Discontinue Reason Start Date End Da te amiodarone (PACERONE) 200 mg tablet Take 200 mg by mouth daily Reorder 09/15/2021 documented as of this encounter Care Teams Software Project Lead Relationship Specialty Start Date End Date Verona, Brandie Quan NP [address] [place] [address] PCP - General Nurse Practitioner 08/09/21 documented as of this encounter
--- OUTSIDE RECORDS SUMMARY | 2024-07-12 16:44 | XMS_ITS | Encounter Summary ---
Author Organization [facility] Address [address] [place] [address] Care Team Providers Care Tool Maker Apprentice Name Role Phone No, Physician Primary Care Provider [phone] Encounter Details Date Type Department Care Team (Late st Contact Info) Description 07/22/2021 Orders Only [facility] Cardiology [address] [place] [address] Oh Quiroz MD [address] [facility] [address] [place], [place] [id number] Social History Tobacco Use Types Packs/Day Years Used Date Smoking Tobacco: Never Assessed Comments Unknown Sex and Gender Information Value Date Recorded Sex Assigned at Not on file 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 Gender Identity Not on file Sexual Orientation Not on file documented as of this encounter Plan of Treatment Not on file documented as of this encounter Procedures Procedure Name Priority Date/Time Associated Diagnosis Comments CARDIOLOGY DOCUMENT SCAN Routine 07/22/2021 documented in this encounter Results * SCAN - CARDIOLOGY (07/22/2021) Anatomical Region Laterality Modality Other Oh Quiroz MD CV CARDIAC SERVICES PROC EDURES Final Result documented in this encounter Visit Diagnoses Not on filedocumented in this encounter Care Teams Tool Maker Apprentice Relationship Specialty Start Date End Date No, Physician PCP - General 07/17/21 08/08/21 documented as of this encounter
--- OUTSIDE RECORDS SUMMARY | 2024-07-12 16:44 | XMS_ITS | Encounter Summary ---
Author Organization [facility] Address [address] [place] [address] Care Team Providers Care Professor Of Literacy Name Role Phone No, Physician Primary Care Provider [phone] Encounter Details Date Type Department Care Team (Late st Contact Info) Description 07/26/2021 Orders Only [facility] Cardiology [address] [place] [address] Rakesh Hernández MD [address] [place] [id number] Social History Tobacco Use Types Packs/Day Years Used Date Smoking Tobacco: Never Assessed Comments Unknown Sex and Gender Information Value Date Recorded Sex Assigned at Not on file 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
--- OUTSIDE RECORDS SUMMARY | 2024-07-12 16:44 | XMS_ITS | Encounter Summary ---
Author Organization [facility] Address [address] [facility] [facility] [address] [place] [address] Care Team Providers Care Combination Man Name Role Phone VeronaUcheBrandiegricelda Quan NP Primary Care Provider Encounter Details Date Type Department Care Team (Late st Contact Info) Description 08/15/2021 Telephone [facility] Cardiology [address] [facility] [address] [place] [address] Jama Hoskins MD [address] [facility] [address] [place] [address] Social History Tobacco Use Types Packs/Day Years Used Date Smoking Tobacco: Former Smokeless Tobacco: Never Comments Unknown Sex and Gender Information Value Date Recorded Sex Assigned at Not on file 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 MOLD BLOWER Gender Identity Not on file Sexual Orientation [...] approved and sent to pharmacy as requested. BLOWER * Telephone Encounter - Gustavo Horta - 08/15/2021 4:29 PM CST Pt requesting refills on medication Metoprolol 50 mg BID and Bumetanide 2 mg daily,sent to [facility].Thank you Contact:[phone] BLOWER documented in this encounter Plan of Treatment [...] documented as of this encounter Care Teams Combination Man Relationship Specialty Start Date End Date Brandie Rhoades NP [address] [place] [address] PCP - General Nurse Practitioner 08/09/21 documented as of this encounter
--- OUTSIDE RECORDS SUMMARY | 2024-07-12 16:44 | XMS_ITS | Encounter Summary ---
Author Organization [facility] Address [address] [facility] [address] [place] [address] Care Team Providers Care Associate Pathologist Name Role Brandie Olvera NP Primary Care Provider [phone] Encounter Details Date Type Department Care Team (Late st Contact Info) Description 08/09/2021 Telephone [facility] Cardiology [address] [place] [address] Lydia Lewis NP [address] [place] [address] Social History Tobacco Use Types Packs/Day Years Used Date Smoking Tobacco: Former Smokeless Tobacco: Never Comments Unknown Sex and Gender Information Value Date Recorded Sex Assigned at Not on file 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 CPC Gender Identity Not on file Sexual Orientation Not on file documented as of this encounter Miscellaneous Notes * Addendum Note - Ger Gurrola RN - 08/10/2021 8:35 AM CSTAddended by: GER GURROLA on: 08/10/2021 08:35 AM Modules accepted: Orders * Telephone Encounter - Ger Gurrola RN - 08/10/2021 8:30 AM CPC Called [facility] in [place] and was told they do not draw outside labs. Sending standing INR to [facility] pt requested. Will call pt today and notify her. * Telephone Encounter - Ger Gurrola RN - 08/09/2021 4:[address] requested that I educate pt on new start to warfarin. Spoke with pt and reviewed the warfarin teaching packet from the office-reviewed meds, diet, labwork, when to contact us and when to report the ED ect. Pt verbalized understanding. Pt gets dialysis sun[facility] sun [facility] sun at [facility] [place]-told pt I would contact them to see [...] INR drawn this week. Seh verbalized understanding. documented in this encounter Plan [...] Chronic anticoagulation PROTIME-INR Routine 09/22/2021 10:06 AM CPC Persistent atrial fibrillation (HCC) Chronic anticoagulation PROTIME-INR Routine 08/30/2021 12:56 PM CPC Persistent atrial fibrillation (HCC) Chronic anticoagulation PROTIME-INR Routine 08/11/2021 2:44 PM CPC Persistent atrial fibrillation (HCC) Chronic anticoagulation documented in this encounter Results * (ABNORMAL) Protime-INR (04/12/2022 10:25 AM CDT) INR 1.8(H) [facility]isa [facility] Comment: Reference Range ? 0.9-1.1 Moderate-intensity Warfarin Therapy 2.0-3.0 Higher-intensity Warfarin Therapy ?? 3.0-4.0 PT 17.5(H) 9.0 - 11.5 sec Monalisa Garcia Comment: For additional information, please refer to http://education.eVariant/faq/VER989 (This link is being provided for informational/ educational purposes only.) Blood specimen (specimen) 04/12/2022 10:25 AM CDT 04/12/2022 10:25 AM CDT Lydia Lewis NP LAB BLOOD ORDERABLES Samina l Result [facility] [address] [place] [address] * (ABNORMAL) Protime-INR (01/24/2022 10:47 AM CDT) INR 2.0(H) Monalisa [facility] Garcia Comment: Reference Range ? 0.9-1.1 Moderate-intensity Warfarin Therapy 2.0-3.0 Higher-intensity Warfarin Therapy ?? 3.0-4.0 PT 19.3(H) 9.0 - 11.5 sec [facility] Comment: For additional information, please refer to http://[employer].eVariant/faq/HGY892 (This link is being provided for informational/ educational purposes only.) Blood specimen (specimen) 01/24/2022 10:47 AM CDT 01/24/2022 10:48 AM CDT Lydia Avelina Joshua GARDEN LABOURER LAB BLOOD ORDERABLES Samina l Result Performing Organization Address [facility] de Phone Number Schedule [facility] [address] [place] [address] * (ABNORMAL) Protime-INR (01/10/2022 9:17 AM CDT) INR 1.5(H) [facility] Comment: Reference Range ? 0.9-1.1 Moderate-intensity Warfarin Therapy 2.0-3.0 Higher-intensity Warfarin Therapy ?? 3.0-4.0 PT 14.6(H) 9.0 - 11.5 sec [facility] Comment: For additional information, please refer to http://[employer].eVariant/faq/ALN497 (This link is being provided for informational/ educational purposes only.) Blood specimen (specimen) 01/10/2022 9:17 AM CDT 01/10/2022 9:17 AM CDT Lydia Lewis GARDEN LABOURER LAB BLOOD ORDERABLES Samina l Result Performing Organization Address [facility] de Phone Number [facility] [address] [place] [address] * (ABNORMAL) Protime-INR (11/22/2021 10:03 AM CDT) INR 1.7(H) [facility] Comment: Reference Range ? 0.9-1.1 Moderate-intensity Warfarin Therapy 2.0-3.0 Higher-intensity Warfarin Therapy ?? 3.0-4.0 PT 16.7(H) 9.0 - 11.5 sec [facility] Comment: For additional information, please refer to http://Next Generation Systems/faq/BQB173 (This link is being provided for informational/ educational purposes only.) Blood specimen (specimen) 11/22/2021 10:03 AM CDT 11/22/2021 10:03 AM CDT Lydia Lewis GARDEN LABOURER LAB BLOOD ORDERABLES Samina l Result Performing Organization Address City/[facility] Co de Phone Number Schedule [facility] [address] [place] [address] * (ABNORMAL) Protime-INR (10/20/2021 12:34 PM CDT) INR 1.5(H) [facility] Comment: Reference Range ? 0.9-1.1 Moderate-intensity Warfarin Therapy 2.0-3.0 Higher-intensity Warfarin Therapy ?? 3.0-4.0 PT 15.1(H) 9.0 - 11.5 sec [facility] Comment: For additional information, please refer to http://[employer].eVariant/faq/LNC900 (This link is being provided for informational/ educational purposes only.) Blood specimen (specimen) 10/20/2021 12:34 PM CDT 10/20/2021 12:34 PM CDT Lydia Lewis GARDEN LABOURER LAB BLOOD ORDERABLES Samina l Result [facility] [address] [address] * (ABNORMAL) Protime-INR (09/22/2021 10:06 AM CPC) INR 3.8(H) [facility] Comment: Reference Range ? 0.9-1.1 Moderate-intensity Warfarin Therapy 2.0-3.0 Higher-intensity Warfarin Therapy ?? 3.0-4.0 PT 34.9(H) 9.0 - 11.5 sec [facility] Comment: For additional information, please refer to http://Next Generation Systems/faq/PEE987 (This link is being provided for informational/ educational purposes only.) Blood specimen (specimen) 09/22/2021 10:06 AM CPC 09/22/2021 10:06 AM CPC Lydia Lewis NP LAB BLOOD ORDERABLES Samina l Result Performing Organization Address City/[facility] Co de Phone Number Schedule [facility] [address] [place] [address] * (ABNORMAL) Protime-INR (08/30/2021 12:56 PM CPC) INR 1.8(H) [facility] Comment: Reference Range ? 0.9-1.1 Moderate-intensity Warfarin Therapy 2.0-3.0 Higher-intensity Warfarin Therapy ?? 3.0-4.0 PT 18.0(H) 9.0 - 11.5 sec [facility] Comment: For additional information, please refer to http://Next Generation Systems/faq/KNL756 (This link is being provided for informational/ educational purposes only.) Blood specimen (specimen) 08/30/2021 12:56 PM CPC 08/30/2021 12:56 PM CPC Lydia Lewis GARDEN LABOURER LAB BLOOD ORDERABLES Samina l Result Performing Organization Address City/[facility]/ZIP Co de Phone Number Schedule [facility] [address] [address] * (ABNORMAL) Protime-INR (08/11/2021 2:44 PM CPC) INR 1.9(H) [facility] Comment: Reference Range ? 0.9-1.1 Moderate-intensity Warfarin Therapy 2.0-3.0 Higher-intensity Warfarin Therapy ?? 3.0-4.0 PT 19.0(H) 9.0 - 11.5 sec [facility] Comment: For additional information, please refer to http://education.eVariant/faq/NZE062 (This link is being provided for informational/ educational purposes only.) Blood specimen (specimen) 08/11/2021 2:44 PM CPC 08/11/2021 2:44 PM CPC Lydia Lewis NP LAB BLOOD ORDERABLES Samina l Result Performing Organization Address City/State/[facility] Co de Phone Number [facility] [address] [place] [address] documented in this encounter Visit Diagnoses Diagnosis Persistent atrial fibrillation (HCC)- Primary Atrial fibrillation Chronic anticoagulation Encounter for long-term (current) use of anticoagulants documented in this encounter Care Teams Associate Pathologist Relationship Specialty Start Date End Date Brandie Rhoades NP [address] [place] [address] PCP - General Nurse Practitioner 08/09/21 documented as of this encounter
--- OUTSIDE RECORDS SUMMARY | 2024-07-12 16:44 | XMS_ITS | Encounter Summary ---
Author Organization [facility] Address [address] [facility] [address] [facility] [address] [place] [address] Care Team Providers Care Plastic Welder Name Role Phone No, Physician Primary Care Provider [phone] Encounter Details Date Type Department Care Team (Late st Contact Info) Description 07/21/2021 Orders Only [facility] Cardiology [address] [place] [address] Oh Quiroz MD [address] [facility] [address] [place], [place] [address] Social History Tobacco Use Types Packs/Day Years Used Date Smoking Tobacco: Never Assessed Comments Unknown Sex and Gender Information Value Date Recorded Sex Assigned at Not on file 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
--- OUTSIDE RECORDS SUMMARY | 2024-07-12 16:44 | XMS_ITS | Encounter Summary ---
Author Organization [facility] Address [address] [facility] [address] [place] [address] Care Team Providers Care Helper Steel Fabrication Name Role Phone No, Physician Primary Care Provider [phone] Encounter Details Date Type Department Care Team (Late st Contact Info) Description 07/25/2021 Orders Only [facility] Cardiology [address] [facility] [address] [place] [address] Jama Hoskins MD [address] [place] [address] Social History Tobacco Use Types Packs/Day Years Used Date Smoking Tobacco: Never Assessed Comments Unknown Sex and Gender Information Value Date Recorded Sex Assigned at Not on file 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
--- OUTSIDE RECORDS SUMMARY | 2024-07-12 16:44 | XMS_ITS | Encounter Summary ---
Author Organization [facility] Address [address] [place] [address] Care Team Providers Care Technical Producer Name Role Phone No, Physician Primary Care Provider [phone] Encounter Details Date Type Department Care Team (Late st Contact Info) Description 07/17/2021 Orders Only [facility] Cardiology [address] [facility] [address] [place] [address] Jama Hoskins MD [address] [place] [address] Social History Tobacco Use Types Packs/Day Years Used Date Smoking Tobacco: Never Assessed Comments Unknown Sex and Gender Information Value Date Recorded Sex Assigned at Not on file 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
--- OUTSIDE RECORDS SUMMARY | 2024-07-12 16:44 | XMS_ITS | Encounter Summary ---
Author Organization [facility] Address [address] [place] [address] Care Team Providers Care Presiding Steward Name Role Phone Brandie Rhoades NP Primary Care Provider Encounter Details Date Type Department Care Team (Latest Contact Info) Description 08/12/2021 Anticoagulation Visit [facility] Cardiology [address] [place] [address] Irma Miller, RN Atrial fibrillation, unspecified type (HCC) (Primary Dx) Social History Tobacco Use Types Packs/Day Years Used Date Smoking Tobacco: Former Smokeless Tobacco: Never Comments Unknown Sex and Gender Information Value Date Recorded Sex Assigned at Not on file 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 GOSPEL SINGER Gender Identity Not on file Sexual Orientation Not on file documented as of this encounter Plan of Treatment Not on file documented as of this encounter Visit Diagnoses Diagnosis Atrial fibrillation, unspecified type (HCC)- Primary documented in this encounter Care Teams Presiding Steward Relationship Specialty Start Date End Date Brandie Rhoades NP [address] [place] [address] PCP - General Nurse Practitioner 08/09/21 documented as of this encounter
--- OUTSIDE RECORDS SUMMARY | 2024-07-12 16:44 | XMS_ITS | Encounter Summary ---
Author Organization [facility] Address [address] [place] [address] Care Team Providers Care Associate Team Physician Name Role Phone No, Physician Primary Care Provider [phone] Encounter Details Date Type Department Care Team (Late st Contact Info) Description 07/23/2021 Orders Only [facility] Cardiology [address] [place] [address] Rakesh Hernández MD [address] [place] [id number] Social History Tobacco Use Types Packs/Day Years Used Date Smoking Tobacco: Never Assessed Comments Unknown Sex and Gender Information Value Date Recorded Sex Assigned at Not on file 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
--- OUTSIDE RECORDS SUMMARY | 2024-07-12 16:44 | XMS_ITS | Encounter Summary ---
Author Organization [facility] Address [address] [place] [address] Care Team Providers Care Director Of Business Applications Name Role Phone No, Physician Primary Care Provider [phone] Encounter Details Date Type Department Care Team (Late st Contact Info) Description 07/28/2021 Orders Only [facility] Cardiology [address] [place] [phone] Belkis Estrada MD [address] [place] [address] Social History Tobacco Use Types Packs/Day Years Used Date Smoking Tobacco: Never Assessed Comments Unknown Sex and Gender Information Value Date Recorded Sex Assigned at Not on file 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
--- OUTSIDE RECORDS SUMMARY | 2024-07-12 16:44 | XMS_ITS | Encounter Summary ---
Author Organization [facility] Address [address] [place] [address] Care Team Providers Care Other Sports Coach Or Instructor Name Role Phone Brandie Rhoades NP Primary Care Provider [phone] Encounter Details Date Type Department Care Team (Latest Contact Info) Description 08/10/2021 Anticoagulation Visit [facility] Cardiology [address] [place] [address] Daylin Gurrola, RUPESH Atrial fibrillation, unspecified type (HCC) (Primary Dx) Social History Tobacco Use Types Packs/Day Years Used Date Smoking Tobacco: Former Smokeless Tobacco: Never Comments Unknown Sex and Gender Information Value Date Recorded Sex Assigned at Not on file 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 DRIVER Gender Identity Not on file Sexual Orientation Not on file documented as of this encounter Plan of Treatment Not on file documented as of this encounter Visit Diagnoses Diagnosis Atrial fibrillation, unspecified type (HCC)- Primary documented in this encounter Care Teams Other Sports Coach Or Instructor Relationship Specialty Start Date End Date Brandie Rhoades NP [address] [place] [address] PCP - General Nurse Practitioner 08/09/21 documented as of this encounter
--- OUTSIDE RECORDS SUMMARY | 2024-07-12 16:44 | XMS_ITS | Encounter Summary ---
Author Organization [facility] Address [address] [place] [address] Care Team Providers Care Turret Lathe Machinist Name Role Phone No, Physician Primary Care Provider [phone] Encounter Details Date Type Department Care Team (Late st Contact Info) Description 08/03/2021 Telephone [facility] Cardiology [address] [place] [address] Lydia Lewis, JOSE C [address] [place] [address] Social History Tobacco Use Types Packs/Day Years Used Date Smoking Tobacco: Never Assessed Comments Unknown Sex and Gender Information Value Date Recorded Sex Assigned at Not on file 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 LEGAL BILLING ANALYST Gender Identity Not on file Sexual Orientation Not on file documented as of this encounter Miscellaneous Notes * Telephone Encounter - Dominga Chowdary RN - 08/03/2021 4:21 PM LEGAL BILLING ANALYST Spoke with pt, pt states she has been having small nose bleeds since starting coumadin. Advised pt to try saline nasal spray or cool mist humidifier at home for symptoms. Pt has f/u with [facility] on 08/10and would like to reschedule her appt because she has dialysis that day. Appt changed to 08/[address] L BILLING ANALYST documented in this encounter Plan of Treatment Not on file documented as of this encounter Visit Diagnoses Not on filedocumented in this encounter Care Teams Turret Lathe Machinist Relationship Specialty Start Date End Date No, Physician PCP - General 07/17/21 08/08/21 documented as of this encounter
--- OUTSIDE RECORDS SUMMARY | 2024-07-12 16:44 | XMS_ITS | Encounter Summary ---
Author Organization [facility] Address [address] [place] [address] Care Team Providers Care Talent Development Consultant Name Role Phone No, Physician Primary Care Provider [phone] Encounter Details Date Type Department Care Team (Late st Contact Info) Description 07/19/2021 Orders Only [facility] Cardiology [address] [place] [address] Oh Quiroz MD [address] [facility] [address] [place], [place] [id number] Social History Tobacco Use Types Packs/Day Years Used Date Smoking Tobacco: Never Assessed Comments Unknown Sex and Gender Information Value Date Recorded Sex Assigned at Not on file 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
--- OUTSIDE RECORDS SUMMARY | 2024-07-12 16:44 | XMS_ITS ---
Author Organization [facility] [address] Address [address] [place] [address] Care Team Providers Care Senior Wind Turbine Technician Name Role Phone Brandie Rhoades NP Primary Care Provider [phone] Mookie Dubois MD Unavailable [phone] Abigail Dougherty RN Unavailable [phone] Jama Hoskins MD Unavailable [phone] Transplant Episode Kidney Candidate [facility] ([place], [place]) - [facility] Evaluation began on 02/20/2024 Marked as Active on 02/20/2024 Reason: Evaluation - Standard Kidney CoordinatorAbigail Dougherty RN Fax: N/A Email: N/A Scores Score Value Updated Exceptions/Reas ons CPRA Not available EPTS (Calc) 48 07/12/2024 Care Team Name Role Phone Fax Email Abigail Dougherty RN Kidney Coordinator [phone] N/A N/A Mookie Dubois MD Referring Physician [phone] N/A Gladys Charlton Men'S Designer [phone] N/A N/A Annalise Mays Primary New Order Clerk N/A N/A N/A Events Pre-Transplant Referred: 02/12/2024 Evaluation began: 02/20/2024 Dialysis History Dialysis History Start End Type Comments Center 09/30/2021 Peritoneal [facility] D[facility] Information Center Phone Fax Address [facility] [phone] [address] [facility] [address]
--- OUTSIDE RECORDS SUMMARY | 2024-07-12 16:44 | XMS_ITS | Encounter Summary ---
Author Organization [facility] Address [address] [place] [address] Care Team Providers Care Color Finisher Name Role Phone No, Physician Primary Care Provider [phone] Encounter Details Date Type Department Care Team (Late st Contact Info) Description 07/18/2021 Orders Only [facility] Cardiology [address] [place] [address] Oh Quiroz MD [address] [facility] [address] [place], [place] [id number] Social History Tobacco Use Types Packs/Day Years Used Date Smoking Tobacco: Never Assessed Comments Unknown Sex and Gender Information Value Date Recorded Sex Assigned at Not on file 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 MANAGER OF CASE MANAGEMENT Gender Identity Not on file Sexual [...] on filedocumented in this encounter Care Teams Color Finisher Relationship Specialty Start Date End Date No, Physician PCP - General 07/17/21 08/08/21 documented as of this encounter
--- OUTSIDE RECORDS SUMMARY | 2024-07-12 16:44 | XMS_ITS | Encounter Summary ---
Author Organization [facility] Address [address] [address] Care Team Providers Care Pharmacy Technician Inpatient Name Role Phone Brandie Rhoades NP Primary Care Provider Encounter Details Date Type Department Care Team (Latest Contact Info) Description 08/31/2021 Anticoagulation Visit [facility] Cardiology [facility] [address] [phone] Irma Miller, RN Atrial fibrillation, unspecified type (HCC) (Primary Dx) Social History Tobacco Use Types Packs/Day Years Used Date Smoking Tobacco: Former Smokeless Tobacco: Never Comments Unknown Sex and Gender Information Value Date Recorded Sex Assigned at Not on file 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
== END 2024-07-05 12:13 | disposition home or self-care (01) ==
PROVIDERS: Emergency Provider Student in an Organized Health Care Education/Training Program
DX: N39.0 Urinary tract infection, site not specified (principal); I12.0 Hypertensive chronic kidney disease with stage 5 chronic kidney disease or end stage renal disease; N18.6 End stage renal disease; Z99.2 Dependence on renal dialysis; I48.91 Unspecified atrial fibrillation; Z87.891 Personal history of nicotine dependence; Z79.01 Long term (current) use of anticoagulants; Z79.899 Other long term (current) drug therapy
CPT/HCPCS: 81001; 87077; 87086; 87186; 99283; A9270

== ENCOUNTER 2024-07-14 09:47 | Inpatient (IN) | payer MEDICARE, MEDICAID, SELFPAY ==
[2024-07-14] VITALS (43 sets, daily range): BP systolic 79–129; BP diastolic 47–108; PULSE 94–169; RESP 15–30; TEMP 36.4–38.4; O2SAT 93–100; BMI 39.9
--- NOTE | ~2024-07-14 | XR_ITS ---
Portable chest x-ray Comparison: 07/16/2024 Clinical History: Hypoxia Findings: Small left pleural effusion present. Probable minimal bibasilar pulmonary edema/atelectasi s. Cardiomediastinal silhouette is stable. Bones and soft tissues are unremarkable. Impression: Small left pleural effusion with minimal bibasilar pulmonary edema/atelectasis. Stable cardiomegaly. Reviewed, dictated and finalized at location . CONDUIT LAYER Impression: Small left pleural effusion with minimal bibasilar pulmonary edema/atelectasis. Stable cardiomegaly.
--- NOTE | ~2024-07-14 | XR_ITS ---
XR retrograde pyelo w/stent RT DATE: 07/19/2024 15:54 INDICATION: Right internal urinary stent placement TECHNIQUE: 16.7 seconds fluoroscopy time 9.08 mGy 3 Spot images of the abdomen COMPARISON: None FINDINGS: Moderate right hydronephrosis is noted on initial retrograde pyelographic view. Subsequent placement of a right internal urinary stent with proximal pigtail overlying the right renal pelvis, w ith relief of the right hydronephrosis. IMPRESSION: Right internal urinary stent placement Reviewed, dictated and finalized at [facility]. Reviewed, dictated and finalized at location A. RANCE CONSULTANT
--- NOTE | ~2024-07-14 | XR_ITS ---
EXAMINATION: XR chest 1V portable Exam Date/Time: 07/16/2024 11:38 ORTHOPEDIC PODIATRIST HISTORY: Hypoxia Comparison: 07/21/2021. RESULT: Lines, tubes, and devices: None. Lungs and pleura: Rightward rotation. Subsegmental left basilar opacities. Patchy subsegmental media l right mid and lower lung opacities. Bilateral costophrenic angle blunting Cardiomediastinal silhouette: Stable. Other: No acute osseous or upper abdominal finding. IMPRESSION: Subsegmental right midlung and bibasilar airspace disease, may represent atelectasis or consolidation . Possible small bilateral pleural effusions. Reviewed, dictated and finalized at location K. OPEDIC PODIATRIST IMPRESSION: Subsegmental right midlung and bibasilar airspace disease, may represent atelec tasis or consolidation. Possible small bilateral pleural effusions.
--- NOTE | ~2024-07-14 | XR_ITS ---
Portable chest x-ray Comparison: 07/18/2024 Clinical History: Septic shock Findings: Small left pleural effusion present. Probable minimal bibasilar pulmonary edema. Cardiome diastinal silhouette is stable. Bones and soft tissues are unremarkable. Impression: Small left pleural effusion and probable minimal bibasilar pulmonary edema. Stable cardiomegaly. Reviewed, dictated and finalized at [facility]. ENGRAVING SUPERVISOR Impression: Small left pleural effusion and probable minimal bibasilar pulmonary edema. Stable cardiomegaly.
--- NOTE | ~2024-07-14 | US_ITS ---
COMPLETE ABDOMINAL ULTRASOUND Ordering provider: Abhijit Camara MD History: . splenic lesion note on CT , please evaluate . Comparison: None. FINDINGS: LIVER: Normal size and echotexture. Cystic areas seen in the right lobe measuring 1.4 x 1 x 1.4 cm. O therwise, No focal hepatic lesions or perihepatic fluid collections are identified. Normal flow of th e portal vein. GALLBLADDER: Unremarkable. No evidence for stones, sludge, gallbladder wall thickening or pericholecy stic fluid collections. Wall thickness is 2.5 mm. A negative sonographic Brown's sign was noted. BILIARY DUCTS: No evidence for intra or extrahepatic biliary dilation. Common bile duct measures 5 mm in diameter which is within normal limits. PANCREAS: Normal echotexture and size. Cystic area with internal echoes seen measuring 6.7 x 7.1 x 8 cm. This may represent a cyst or hematoma. SPLEEN: Normal size, echotexture and contour and measures 11.5 cm in length. KIDNEYS: Right measures 8.2x 3.4x 3.6 cm in length and the left 9.3x 3.3x 4.6 cm in length. The right kidney is atrophic and echogenic. The left is echogenic with multiple cysts the largest measures 1.7 x 1.5 x 1.5 cm. UPPER ABDOMINAL AORTA: Normal in caliber. Proximal aorta measures 1.9 cm. Mid aorta measures 1.8 cm. Distal measures 1.3 cm. IVC: Patent. FREE FLUID: None. IMPRESSION: Atrophic echogenic both kidneys with cysts in the left kidney. Cystic lesion in the spleen which may be a cyst or hematoma. Clinical correlation and follow-up advis ed. Cyst in the right lobe of the liver. Otherwise, unremarkable Complete ultrasound of the abdomen. Reviewed, dictated and finalized at location A. ERY WORKER IMPRESSION: Atrophic echogenic both kidneys with cysts in the left kidney. Cystic lesion in the spleen which may be a cyst or hematoma. Clinical correlati on and follow-up advised. Cyst in the right lobe of the liver. Otherwise, unremarkable Complete ultrasound of the abdomen.
--- NOTE | ~2024-07-14 | CT_ITS ---
EXAMINATION: CT chest abdomen pelvis wo con DATE: 07/14/2024 14:43 INDICATION: Sepsis TECHNIQUE: Computed tomography (CT) of the chest, abdomen, and pelvis was performed with 100 mL Omnip aque-350 intravenous contrast. Automated exposure control and iterative reconstruction technique were employed. The dose-length product was 1507.86 mGy-cm. COMPARISON: None FINDINGS: CHEST CT: Tiny left pleural effusion. Dependent predominant groundglass opacities and linear and bandlike opaci ties in both lungs likely combination of atelectasis and mild pulmonary edema. Moderate cardiomegaly. No pericardial effusion. Enlargement of the central pulmonary arteries consistent with pulmonary art erial hypertension. Aortic valve calcific location. Normal caliber thoracic aorta. Small amount of ga s at the right atrial appendage likely related to venous access. Mild likely reactive thoracic lympha denopathy. Mild thoracic spondylosis. ABDOMEN/PELVIS CT: 1.3 cm cyst in the right hepatic lobe. Gallbladder, pancreas and left adrenal gland are normal. 2.2 c m right adrenal nodule. 8 cm complex cystic lesion in the spleen with low but heterogeneous attenuati on. Moderate bilateral renal atrophy with bilateral renal cysts the largest on the right measuring 1. 8 cm. Bilateral nephrolithiasis including a 9 mm stone at the right ureteropelvic junction. There is no hydronephrosis in either kidney which on the right kidney (the large stone at the ureteropelvic ju nction likely reflects poor renal function. There is a small to moderate amount of ascites in the abd omen and pelvis likely related to peritoneal dialysis with dialysis catheter coiled in the pelvis. Ex tensive colonic diverticulosis without adjacent from trace stranding to suggest diverticulitis. Small bowel and appendix are normal. Decompressed bladder, the uterus and bilateral adnexa are unremarkabl e. There is calcified atherosclerosis of the aorta and many of the other arteries. No pathologically enlarged abdominal or pelvic lymphadenopathy. IMPRESSION: 1. 8 cm complex cystic lesion within the spleen which could represent a hematoma, abscess or less lik delphine neoplasm. 2. Tiny left pleural effusion with likely combination of atelectasis and mild pulmonary edema in the dependent lungs. 3. Moderate cardiomegaly with enlargement of the central pulmonary arteries consistent with pulmonary arterial hypertension. 4. Moderate bilateral renal atrophy with bilateral nephrolithiasis including a 9 mm stone at the righ t ureteropelvic junction without hydronephrosis which could reflect poor renal function. 5. Small to moderate amount of ascites likely related to peritoneal dialysis with dialysis catheter i n the pelvis. 6. Extensive diverticulosis. Reviewed, dictated and finalized at location B. NIC MANAGER IMPRESSION: 1. 8 cm complex cystic lesion within the spleen which could represent a hematom a, abscess or less likely neoplasm. 2. Tiny left pleural effusion with likely combination of atelectasis and mild p ulmonary edema in the dependent lungs. 3. Moderate cardiomegaly with enlargement of the central pulmonary arteries con sistent with pulmonary arterial hypertension. 4. Moderate bilateral renal atrophy with bilateral nephrolithiasis including a 9 mm stone at the right ureteropelvic junction without hydronephrosis which cou ld reflect poor renal function. 5. Small to moderate amount of ascites likely related to peritoneal dialysis wi th dialysis catheter in the pelvis. 6. Extensive diverticulosis.
--- NOTE | 2024-07-14 11:08 | ECG_ITS ---
Test Date: 2024-07-14 11:11:37 Measurements Intervals [place] Rate: 143 P: 0 ND: 0 QRS: 49 QRSD: 108 T: 222 QT: 290 QTc: 448 Interpretive Statements ATRIAL FIBRILLATION WITH RAPID VENTRICULAR RESPONSE WITH ABERRANT CONDUCTION OR VENTRICULAR PREMATURE COMPLEXES ST DEVIATION AND MODERATE T-WAVE ABNORMALITY, CONSIDER LATERAL ISCHEMIA [-0.1+ mV T WAVE IN I/aVL/V5/V6] ST DEVIATION AND MODERATE T-WAVE ABNORMALITY, CONSIDER INFERIOR ISCHEMIA [-0.1+ mV T WAVE IN II/aVF] No previous ECG available for comparison Electronically Signed On 07-14-2024 18:10:38 BLUE LINE OPERATOR by Noelle Joiner M.D.
[2024-07-14] MEDS: SODIUM CHLORIDE 0.9% IV 1,000 ML 999 ML IV CONT ×3 (11:23→13:13)
[2024-07-14] MEDS: ACETAMINOPHEN 500 MG TABLET 1000 MG PO (11:23)
[2024-07-14] MEDS: METOPROLOL TARTRATE INJ 5 MG/5 ML VIAL IV PUSH (11:30)
[2024-07-14 11:41] LABS: Basophils Absolute Auto 0.1 K/mm3 (0.0-0.1); Basophils Percent Auto 0.3 % (0.2-1.2); Eosinophils Absolute Auto 0.1 K/mm3 (0-0.3); Eosinophils Percent Auto 0.4 % (0-4.4); Hematocrit 28.3 % (37.0-47.0); Hemoglobin 8.8 g/dL (12.0-15.0); Immature Granulocyte Absolute 0.42 K/mm3 (0.00-0.031); Immature Granulocyte Percent A 2.7 % (0-0.5); Lymphocytes Percent Auto 1.3 % (18.3-44.2); Mean Corpuscular HGB Conc 31.1 g/dl (32-36); Mean Corpuscular Hemoglobin 30.8 pg (26-34); Mean Platelet Volume 9.4 fl (7.4-10.4); Monocytes Absolute Auto 0.1 K/mm3 (0.1-0.6); Monocytes Percent Auto 0.4 % (2.6-8.5); Neutrophils Absolute Auto 14.9 K/mm3 (1.3-6.7); Neutrophils Percent Auto 94.9 % (45.5-73.1); Platelet Count Result 345 k/mm3 (150-375); Red Blood Count 2.86 M/mm3 (4.2-5.4); White Blood Count 15.7 K/mm3 (4.5-10.0)
[2024-07-14 11:55] LABS: Lactic Acid Reflex 2.6 mmol/L (0.7-2.0)
[2024-07-14 12:02] LABS: Alanine Aminotransferase 24 U/L (6-35); Albumin Level 3.1 g/dL (3.5-5.1); Alkaline Phosphatase 52 U/L (38-126); Anion Gap 6 mmol/L (4-12); Aspartate Amino Transferase 31 U/L (14-36); Bilirubin,Total 0.8 mg/dL (0.2-1.3); Blood Urea Nitrogen 29 mg/dL (7-17); Carbon Dioxide 29 mmol/L (22-30); Chloride 93 mmol/L (98-107); Estimated CRCL calculation 7 ml/min; Estimated Glomerular Filt Rate 6; Glucose 129 mg/dL (65-110); Potassium 3.3 mmol/L (3.4-5.0); Sodium 128 mmol/L (137-145)
[2024-07-14 12:20] LABS: CRP 15.3 mg/dL (<1.0)
[2024-07-14 12:44] LABS: Influenza A QL RT-PCR Negative (Negative); Influenza B QL RT-PCR Negative (Negative); RSV RNA, RT-PCR Negative (Negative); SARS-CoV-2 RNA PCR Negative (Negative)
--- NOTE | 2024-07-14 12:46 | PC.NURSE ---
Patient woken from rest to again ask for urine specimen-patient continues to decline need and refuses straight cath
[2024-07-14 14:05] LABS: Add Urine Microscopic? YES; Appearance Urine Cloudy (Clear); Bacteria Urine 2+ /hpf; Bilirubin Urine Negative (Negative); Blood Urine 3+ (Negative); Color Urine Yellow (Yellow); Glucose Urine UA Negative (Negative); Ketones Urine Negative (Negative); Leukocyte Esterase Ur 3+ LEU/UL (Negative); Need Manual Microscopic Reviewed; Nitrate Urine Negative (Negative); Non Pathogenic Casts 0-2; Protein Urine 2+ mg/dL (Negative); RBC Urine >100 /hpf (0-2); Squamous Epithelial Cell Urine Moderate /hpf (Few); Urobilinogen Urine 0.2 mg/dL (<2.0); WBC Urine 21-50 /hpf (0-3)
--- NOTE | 2024-07-14 14:05 | PC.NURSE ---
ERP at bedside to attempt to preform cardioversion. 1400 4 mg versed ivp VORB ERP Dr. Barfield 1400 4 mg morphine IVP VORB ERP Dr. Swanson pt. shocked at 1401 with 200J cardioversion unsuccessful.
[2024-07-14] MEDS: MIDAZOLAM HCL (*CRX) 2 MG/2 ML VIAL 4 MG IV PUSH (14:13)
[2024-07-14] MEDS: MORPHINE SULFATE (*CRX) 4 MG/ML INJ IV PUSH (14:13)
[2024-07-14] MEDS: AMIODARONE 150 MG/D5W 100 ML 150 MG/100 ML BAG 600 MG IV CONT ×2 (14:14→17:43)
--- NOTE | 2024-07-14 14:34 | PC.NURSE ---
pt to ct scan via stretcher, on 2L NC O2, pt is alert and aware of POC, on tele monitor
[2024-07-14 14:39] LABS: Reflex Lactic Acid Yes or No Add Lactic
--- NOTE | 2024-07-14 15:28 | ED_ITS ---
HPI - General Adult General Chief complaint: Urogenital-Female Stated complaint: UTI, low BP Time Seen by Provider: 07/14/24 11:13 Source: patient Mode of arrival: ambulatory Limitations: no limitations History of Present Illness HPI narrative: 69-year-old with a history of hypertension, atrial fibrillation on warfarin, ESRD on peritoneal dialysis who over the complains of fever and low blood pressure. Patient states that she was seen a week ago and was diagnosed with urinary tract infection. She states that she had low blood in the urine but none at this time. She denies having any abdominal pain. No history of nausea vomiting or diarrhea. She has had a PD return is clear. 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 Related Data Home Medications ?Medication ?Instructions ?Recorded ?Confirmed ?Last Taken ?Type ferrous sulfate 325 mg (65 mg 325 mg PO DAILY 07/16/21 07/13/22 Unknown History iron) tablet (FeroSul) Allergies Allergy/AdvReac Type Severity Reaction Status Date / Time PHILIP Inhibitors Allergy Severe Swelling Verified 07/05/24 12:01 of Lip/Tongue/Throat azithromycin Allergy Severe Dyspnea / Verified 07/05/24 12:01 SOB Review of Systems 2 Review of Systems: All systems reviewed & are unremarkable except as noted in HPI and below Constitutional: Constitutional: Reports no additional constitutional complaints Eyes: Eyes: Reports no additional eye complaints ENT: Reports system reviewed and no additional complaints, except as documented Cardiovascular: Cardiovascular: Reports no additional cardiovascular complaints Respiratory: Respiratory: Reports no additional respiratory complaints Gastrointestinal: Gastrointestinal: Reports no additional gastrointestinal complaints Musculoskeletal: Musculoskeletal: Reports no additional musculoskeletal complaints Integumentary/Breasts: Skin/Breast: Reports system reviewed and no additional complaints, except as docu PMFSH Past Medical History Medical History Afib Chronic kidney disease, unspecified Chronic kidney disease Acute renal failure Hypertension Surgical History Surgical History History of tonsillectomy History of Family History Family History Father CAD (coronary artery disease) Mother Hypertension Social History Social History Social History: The patient lives at home with her daughter and mother. 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 She used to smoke half a pack of cigarettes per day but quit smoking in 2018. She has 20 pack per year smoking history. She used to drink 1-2 beers a day every day but quit doing so several years ago. She now drinks 1 beer on rare occasion. She denies any illicit substance use. Primary care provider: Brandie Rhoades [employer] Code status: Full code Surrogate decision maker: Daughter Smoking packs per day: 0.5 Smoking cigarettes per day: 10.0 Years smoked: 40 Smoking pack-years: 20.00 Smoking status: Former smoker Tobacco type: cigarettes Alcohol intake: current Drinks per week: 1 Substance use: never Spiritual care concerns: No Exam 2 Narrative: GENERAL: Well-appearing, well-nourished, and in no acute distress. HEAD: Normocephalic, atraumatic. EYES: PERRLA and EOMI. ENT: Nares clear, no rhinorrhea or epistaxis. Mucous membranes moist. NECK: Supple. CHEST: Clear to auscultation. No respiratory distress. HEART: Tachycardia, ABDOMEN: Soft, nontender, nondistended, normal active bowel sounds. EXTREMITIES: Normal range of motion. No edema. SKIN: Warm, dry, no rash. NEURO: No focal deficits. Alert and oriented x3. PSYCH: Normal mood and affect. Course Course Emergency Course: Patient was febrile upon arrival was given Tylenol and lab work was done . IV Lopressor 5 mg was given which dropped her blood pressure. She did not respond very well with the IV fluids. Opted to cardiovert her with synchronized cardioversion patient id not respond to cardioversion still remained hypotensive and tachycardic. did did given amiodarone bolus ad followed by drip. I did discuss with Dr. Dubois informed about the lab work and her clinical condition will not be able to start antibiotic until we get the PD fluid. we did call the dialysis nurse for obtaining the PD fluid meanwhile blood cultures were ordered. I did notify Dr. Dubois that I have not started antibiotic at this point. Discussed with Dr. Dorsey recommended CT chest , abd and Pelvis. Notified Dr. Dorsey about CT findings , will start Vanc and Cefepime. Dialysis nurse was here to get the PD fluid Notified Cardiology will see the patient in consult Vital Signs Vital signs: Vital Signs Temperature 38.4 C H 07/14/24 09:57 Pulse Rate 109 H 07/14/24 09:57 Blood Pressure 96/52 L 07/14/24 09:57 Pulse Oximetry 97 07/14/24 09:57 Temperature 37.9 C H 07/14/24 12:31 Pulse Rate 123 H 07/14/24 14:26 Respiratory Rate 30 H 07/14/24 14:15 Blood Pressure 80/51 L 07/14/24 14:26 Pulse Oximetry 94 07/14/24 14:15 Procedures Procedural Sedation Procedural Sedation #1: Procedural Sedation Date: 07/14/24 Procedure: cardioversion for afib with RVR and Hypotension Provider Performed: sedation and procedure Informed Consent Obtained: yes Equipment in Room: bag and mask, capnography, radiographer cardiac catheterization, crash cart, oxygen and pulse oximeter Plan for Sedation: moderate sedation ASA Class: III Mallampati Classification: class I NPO Status: last solid food (hours ago) (12) Pt. Educated on Procedural Sedation: Yes Re-evaluated immediately prior: Yes Preparation: radiographer cardiac catheterization applied, pulse oximeter, capnometry used, reversal agents at bedside and suction/airway equipment at bedside Midazolam dose (mg): 4 Patient Tolerated Procedure: no complications Complications: none Medical Decision Making Differential Diagnosis Differential Diagnosis: sepsis, afib rvr , pneumonia , SBP Medical Records Medical records reviewed: Yes I reviewed the external patient's medical records. Vital Signs Vital Signs: Vital Signs Temperature 38.4 C H 07/14/24 09:57 Pulse Rate 109 H 07/14/24 09:57 Blood Pressure 96/52 L 07/14/24 09:57 Pulse Oximetry 97 07/14/24 09:57 Temperature 37.9 C H 07/14/24 12:31 Pulse Rate 123 H 07/14/24 14:26 Respiratory Rate 30 H 07/14/24 14:15 Blood Pressure 80/51 L 07/14/24 14:26 Pulse Oximetry 94 07/14/24 14:15 Lab Data Lab results reviewed: Yes I reviewed the patient's lab results. 07/14/24 11:26 07/14/24 11:26 Labs: Lab Results 07/14/24 07/14/24 07/14/24 Range/Units 11:26 12:01 13:35 WBC 15.7 H (4.5-10.0) K/mm3 RBC 2.86 L (4.2-5.4) M/mm3 Hgb 8.8 L (12.0-15.0) g/dL Hct 28.3 L (37.0-47.0) % MCV 99.0 (80-100) fl MCH 30.8 (26-34) pg MCHC 31.1 L (32-36) g/dl RDW 14.0 (11.5-14.5) % Plt Count 345 (150-375) k/mm3 MPV 9.4 (7.4-10.4) fl Immature Gran % (Auto) 2.7 H (0-0.5) % Neut % (Auto) 94.9 H (45.5-73.1) % Lymph % (Auto) 1.3 L (18.3-44.2) % [place] % (Auto) 0.4 L (2.6-8.5) % Eos % (Auto) 0.4 (0-4.4) % Baso % (Auto) 0.3 (0.2-1.2) % Lymph # (Auto) 0.20 L (0.9-3.2) K/mm3 [place] # (Auto) 0.1 (0.1-0.6) K/mm3 Eos # (Auto) 0.1 (0-0.3) K/mm3 Baso # (Auto) 0.1 (0.0-0.1) K/mm3 Abs Immat Gran (auto) 0.42 H (0.00-0.031) K/mm3 Absolute Neuts (auto) 14.9 H (1.3-6.7) K/mm3 Absolute Nucleated RBC 0.000 (0.0-0.012) K/mm3 Nucleated RBC % 0.0 (0.0-0.2) % Sodium 128 L (137-145) mmol/L Potassium 3.3 L (3.4-5.0) mmol/L Chloride 93 L (98-107) mmol/L Carbon Dioxide 29 (22-30) mmol/L Anion Gap 6 (4-12) mmol/L BUN 29 H (7-17) mg/dL Creatinine 7.80 H (0.7-1.0) mg/dL Estim Creat Clear Calc 7 ml/min Estimated GFR 6 L (59 - ) Glucose 129 H (65-110) mg/dL Lactic Acid 2.6 H (0.7-2.0) mmol/L Calcium 8.0 L (8.4-10.2) mg/dL Total Bilirubin 0.8 (0.2-1.3) mg/dL AST 31 (14-36) U/L ALT 24 (6-35) U/L Alkaline Phosphatase 52 (38-126) U/L C-Reactive Protein 15.3 H (<1.0) mg/dL Total Protein 7.0 (6.3-8.2) g/dL Albumin 3.1 L (3.5-5.1) g/dL Urine Color Yellow (Yellow) Urine Appearance Cloudy H (Clear) Urine pH 8.0 (5.0-9.0) Ur Specific [place] 1.010 (1.001-1.035) Urine Protein 2+ H (Negative) mg/dL Urine Glucose (UA) Negative (Negative) mg/dL Urine Ketones Negative (Negative) mg/dL Ur Blood (Man) 3+ H (Negative) Urine Nitrate Negative (Negative) Urine Bilirubin Negative (Negative) Urine Urobilinogen 0.2 (<2.0) mg/dL Add Ur Microanalysis Reviewed Leukocyte Esterase Rfl 3+ H (Negative) LANI/UL Urine RBC >100 H (0-2) /hpf Urine WBC 21-50 H (0-3) /hpf Ur Squamous Epith Cells Moderate (Few) /hpf Urine Bacteria 2+ H /hpf Urine Casts 0-2 Influenza A (RT-PCR) Negative (Negative) Influenza B (RT-PCR) Negative (Negative) RSV (RT-PCR) Negative (Negative) SARS-CoV-2 RNA (RT-PCR) Negative (Negative) Imaging Data Radiologist's impression: ITS Impressions Chest/Abdomen/Pelvis CT 07/14/24 14:45 IMPRESSION: 1. 8 cm complex cystic lesion within the spleen which could represent a hematoma, abscess or less likely neoplasm. 2. Tiny left pleural effusion with likely combination of atelectasis and mild pulmonary edema in the dependent lungs. 3. Moderate cardiomegaly with enlargement of the central pulmonary arteries consistent with pulmonary arterial hypertension. 4. Moderate bilateral renal atrophy with bilateral nephrolithiasis including a 9 mm stone at the right ureteropelvic junction without hydronephrosis which could reflect poor renal function. 5. Small to moderate amount of ascites likely related to peritoneal dialysis with dialysis catheter in the pelvis. 6. Extensive diverticulosis. ECG Data EKG #1: ECG completion date: 07/14/24 ECG completion time: 11:11 EKG Interpretation: tachycardia (143), atrial fibrillation, non-specific ST changes and no acute changes Critical Care Time Critical Care Time Critical Care Time: Yes Total Critical Care Time: 45 Discharge Plan Discharge Clinical Impression: Sepsis, Atrial fibrillation with RVR, Acute hypotension Patient Disposition: Still a Patient Condition: Stable Patient Language: Welsh Prescriptions: No Action ferrous sulfate [FeroSul] 325 mg (65 mg iron) tablet 325 mg PO DAILY losartan 25 mg Tablet 25 mg PO DAILY Qty: 30 0RF metoprolol tartrate 50 mg Tablet 100 mg PO BID Qty: 60 0RF bumetanide 1 mg Tablet 2 mg PO DAILY Qty: 30 0RF warfarin 2.5 mg tablet 2.5 mg PO DAILY Qty: 30 0RF amiodarone 200 mg tablet 200 mg PO .other Qty: 60 0RF Rx Instructions: Take 2 tablets by mouth twice a day for 2 days then take 2 tablets by mouth once a day for 1 week been take 1 tablet by mouth daily sulfamethoxazole-trimethoprim [Bactrim DS] 800-160 mg tablet 1 tablet PO Q12H Qty: 14 0RF Nephro-Silvia 0.8 mg tablet 1 tablet PO DAILY Qty: 90 3RF Follow-up/Referrals: UNKNOWN,DOCTOR [Primary Care Provider] - Time of Disposition: 15:30
[2024-07-14] MEDS: CEFEPIME 1 GM/NS 50 ML 1 GM/50 ML BAG IVPB (15:39)
--- NOTE | 2024-07-14 15:53 | P.HP_ITS ---
H&P: HPI History of Present Illness Date/Time: 07/14/24 15:53 Chief Complaint: Hypotension and UTI Narrative: 63-year-old female past medical history of anemia of chronic disease, end-stage renal disease on peritoneal dialysis and AFib on warfarin presents the hospital with presents the hospital with low blood pressure and fever. Patient states that she had a urinary tract infection last week. At that time she had blood in her urine however that has resolved. Her platinum smith is Dr. Dubois. Upon arrival patient was in AFib with RVR rate of 143. Lab work in the ED showed leukocytosis at 15.7, hemoglobin of 8.8 which is slightly lower than baseline, sodium of 128, potassium of 3.3, BUN of 29, creatinine of 7.8 which is above baseline of 4.2, lactic acid of 2.6. UA was cloudy with 3+ leukocyte esterase negative for nitrates and 2+ bacteria. Influenza a, B, RSV and COVID negative. ED events: Patient was febrile upon arrival was given Tylenol and lab work was done. IV Lopressor 5 mg was given which dropped her blood pressure. She did not respond very well with the IV fluids. Opted to cardiovert her with synchronized cardioversion patient id not respond to cardioversion still remained hypotensive and tachycardic. did did given amiodarone bolus ad followed by drip. Sample of PD fluid was sent for cultures per the request of Dr. Dubois. Patient was started on vancomycin and Cefepime antibiotics after PD fluid sample obtained. CT of the chest abdomen pelvis show Tiny left pleural effusion with likely combination of atelectasis and mild pulmonary edema in the dependent lungs. Small to moderate amount of ascites likely related to peritoneal dialysis with dialysis catheter in the pelvis. Upon arrival to the ICU the patient is AFib with RVR in the 140s again and hypotensive 81/51, she was given bolus of amiodarone in the emergency room without follow-up of the drip. ED provider was called for a central line, orders were placed for amnio protocol and phenylephrine. Review of Systems Review of Systems: 12 systems were reviewed and are negativ e except for as per HPI. PMF Past Medical History Medical History Afib Chronic kidney disease, unspecified Chronic kidney disease Acute renal failure Hypertension Surgical History Surgical History History of tonsillectomy History of Family History Family History Father CAD (coronary artery disease) Mother Hypertension Social History Social History Social History: The patient lives at home with her daughter and mother. 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 She used to smoke half a pack of cigarettes per day but quit smoking in 2018. She has 20 pack per year smoking history. She used to drink 1-2 beers a day every day but quit doing so several years ago. She now drinks 1 beer on rare occasion. She denies any illicit substance use. Primary care provider: Brandie Rhoades [employer] Code status: Full code Surrogate decision maker: Daughter Smoking packs per day: 0.5 Smoking cigarettes per day: 10.0 Years smoked: 40 Smoking pack-years: 20.00 Smoking status: Former smoker Alcohol intake: unknown Drinks per week: 1 Substance use: unknown Do You Feel Safe in your Home?: Yes Lack of Transportation: No Lack of Food: Never True Current Housing: I Have Housing Concerned About Future Housing: No Difficulty Paying Gas/Electric Bills: No Difficulty Paying for Meds: No Currently Unemployed: No Education: Decline to Answer Difficulty w/ Childcare or Family Care: No Spiritual care concerns: No Meds Home Medications and Allergies Home Medications ?Medication ?Instructions ?Recorded ?Confirmed ?Type metoprolol tartrate 50 mg tablet 100 mg (2 x 50 mg) PO BID #60 tabs 07/30/21 07/14/24 Rx warfarin 2.5 mg tablet 2.5 mg PO DAILY #30 tabs 07/30/21 07/14/24 Rx vitamin B complex-vitamin C-folic 1 tablet PO DAILY #90 tabs 11/20/22 07/14/24 Rx acid 0.8 mg tablet (Nephro-Silvia) calcitriol 0.25 mcg capsule 0.25 mcg PO DAILY 07/14/24 07/14/24 History furosemide 80 mg tablet 80 mg PO BID 07/14/24 07/14/24 History gentamicin 0.1 % topical cream 1 applic topical DAILY 07/14/24 07/14/24 History levothyroxine 25 mcg tablet 25 mcg PO DAILY 07/14/24 07/14/24 History losartan 100 mg tablet 100 mg PO DAILY 07/14/24 07/14/24 History potassium chloride 10 mEq 10 meq PO DAILY 07/14/24 07/14/24 History tablet,extended release Allergies Allergy/AdvReac Type Severity Reaction Status Date / Time PHILIP Inhibitors Allergy Severe Swelling Verified 07/05/24 12:01 of Lip/Tongue/Throat azithromycin Allergy Severe Dyspnea / Verified 07/05/24 12:01 SOB Vital Signs Vital Signs - 24 hr 07/14/24 09:57 07/14/24 10:46 07/14/24 10:48 Temperature 101.1 F H Pulse Rate 109 H 162 H 156 H Respiratory Rate 18 21 H Blood Pressure 96/52 L 120/71 Pulse Oximetry 97 93 07/14/24 11:01 07/14/24 11:16 07/14/24 11:30 Temperature Pulse Rate 153 H 154 H 157 H Respiratory Rate 20 19 Blood Pressure 129/90 112/64 Pulse Oximetry 07/14/24 11:31 07/14/24 11:46 07/14/24 12:16 Temperature Pulse Rate 160 H 137 H 137 H Respiratory Rate 25 H 24 H 22 H Blood Pressure 121/82 101/69 107/73 Pulse Oximetry 97 07/14/24 12:30 07/14/24 12:31 07/14/24 14:14 Temperature 100.2 F H Pulse Rate 156 H 149 H 132 H Respiratory Rate 17 18 Blood Pressure 109/69 82/58 L Pulse Oximetry 95 96 07/14/24 14:15 07/14/24 14:26 07/14/24 15:32 Temperature Pulse Rate 133 H 123 H 135 H Respiratory Rate 30 H 19 Blood Pressure 80/57 L 80/51 L 122/108 H Pulse Oximetry 94 100 Exam Narrative: General: well appearing, appears stated age. HEENT: normocephalic, atraumatic. Mucous membranes moist. EOMI, PERRLA, bila teral sclera anicteric, no conjunctival injection. Neck supple without JVD, lymphadenopathy, or bruit. Respiratory: clear to ascultation bilaterally. No rales/rhonic/wheezes. Cardiovascular: Regular rate and rhythm, normal S1-S2 upon ascultation. No murmurs, rubs, or clicks. PMI is nondisplaced, capillary refill less than 3 second. Abdomen: Soft, round, no pulsatile masses, nondistended and nontender. No rebound, no guarding. No CVA tenderness, no hepatosplenomegaly. Bowel sounds present to all four quadrants. No high pitch or tinkling sounds, resonant to percussion. PD catheter Extremities: No cyanosis, clubbing, or edema present. Pulses are palpable 2/2. Active ROM to all four extremities. Neuro: Alert and orientated x 4. PERRLA. Cranial nerves 2-12 intact without focal deficit. Skin: Warm, dry, and intact, without rash, erythema, or lesion. Psych: pleasant, cooperative, normal speech, normal affect, no hallucinations, no dysarthia H&P: Results Labs Labs: Short CBC 07/14/24 Range/Units 11:26 WBC 15.7 H (4.5-10.0) K/mm3 Hgb 8.8 L (12.0-15.0) g/dL Hct 28.3 L (37.0-47.0) % Plt Count 345 (150-375) k/mm3 BMP 07/14/24 11:26 Sodium 128 L Potassium 3.3 L Chloride 93 L Carbon Dioxide 29 BUN 29 H Creatinine 7.80 H Glucose 129 H Calcium 8.0 L Liver Function 07/14/24 Range/Units 11:26 Total Bilirubin 0.8 (0.2-1.3) mg/dL AST 31 (14-36) U/L ALT 24 (6-35) U/L Alkaline Phosphatase 52 (38-126) U/L Albumin 3.1 L (3.5-5.1) g/dL Urine 07/14/24 Range/Units 13:35 Urine Color Yellow (Yellow) Urine Appearance Cloudy H (Clear) Urine pH 8.0 (5.0-9.0) Ur Specific [place] 1.010 (1.001-1.035) Urine Protein 2+ H (Negative) mg/dL Urine Glucose (UA) Negative (Negative) mg/dL Imaging CT scan - abdomen: Radiologist's impression: CHEST CT: Tiny left pleural effusion. Dependent predominant groundglass opacities and linear and bandlike opacities in both lungs likely combination of atelectasis and mild pulmonary edema. Moderate cardiomegaly. No pericardial effusion. Enlargement of the central pulmonary arteries consistent with pulmonary arterial hypertension. Aortic valve calcific location. Normal caliber thoracic aorta. Small amount of gas at the right atrial appendage likely related to venous access. Mild likely reactive thoracic lymphadenopathy. Mild thoracic spondylosis. ABDOMEN/PELVIS CT: 1.3 cm cyst in the right hepatic lobe. Gallbladder, pancreas and left adrenal gland are normal. 2.2 cm right adrenal nodule. 8 cm complex cystic lesion in the spleen with low but heterogeneous attenuation. Moderate bilateral renal atrophy with bilateral renal cysts the largest on the right measuring 1.8 cm. Bilateral nephrolithiasis including a 9 mm stone at the right ureteropelvic junction. There is no hydronephrosis in either kidney which on the right kidney (the large stone at the ureteropelvic junction likely reflects poor renal function. There is a small to moderate amount of ascites in the abdomen and pelvis likely related to peritoneal dialysis with dialysis catheter coiled in the pelvis. Extensive colonic diverticulosis without adjacent from trace stranding to suggest diverticulitis. Small bowel and appendix are normal. Decompressed b ladder, the uterus and bilateral adnexa are unremarkable. There is calcified atherosclerosis of the aorta and many of the other arteries. No pathologically enlarged abdominal or pelvic lymphadenopathy. IMPRESSION: 1. 8 cm complex cystic lesion within the spleen which could represent a hematoma, abscess or less likely neoplasm. 2. Tiny left pleural effusion with likely combination of atelectasis and mild pulmonary edema in the dependent lungs. 3. Moderate cardiomegaly with enlargement of the central pulmonary arteries consistent with pulmonary arterial hypertension. 4. Moderate bilateral renal atrophy with bilateral nephrolithiasis including a 9 mm stone at the right ureteropelvic junction without hydronephrosis which could reflect poor renal function. 5. Small to moderate amount of ascites likely related to peritoneal dialysis with dialysis catheter in the pelvis. 6. Extensive diverticulosis. Assessment and Plan Assessment and plan (1) Sepsis: Qualifiers: Sepsis acute organ dysfunction status: unspecified Sepsis type: sepsis due to unspecified organism Qualified Code(s): A41.9 - Sepsis, unspecified organism Code(s): A41.9 - Sepsis, unspecified organism Status: Acute Assessment and Plan: With lactic acidosis 4L fluid bolus in ED Vancomycin, cefepime UA positive for UTI Peritoneal fluid culture pending Blood cultures pending Repeat lactic acid improved Femoral line placed (2) Urinary tract infection: Code(s): N39.0 - Urinary tract infection, site not specified Status: Inactive Assessment and Plan: Failed Bactrim On broad-spectrum antibiotics (3) Atrial fibrillation with rapid ventricular response: Code(s): I48.91 - Unspecified atrial fibrillation Status: Acute Assessment and Plan: With symptomatic hypotension Electrocardioversion failed in the ED Amiodarone drip INR came back critically high, could be lab error Repeat INR before resume warfarin Will hold off on restarting home metoprolol as patient was hypotensive will me toprolol in the emergency room. Re-evaluate in a.m. (4) Hypotension: Code(s): I95.9 - Hypotension, unspecified Status: Acute Assessment and Plan: Secondary to dehydration, UTI, AFib with RVR medications Central line placed for pressors Holding home antihypertensives and diuretics (5) End-stage renal disease on peritoneal dialysis: Code(s): N18.6 - End stage renal disease; Z99.2 - Dependence on renal dialysis Status: Acute Assessment and Plan: Nephrology consulted Renal diet Peritoneal fluid samples negative for acute infection (6) Pleural effusion on right: Code(s): J90 - Pleural effusion, not elsewhere classified Status: Acute Assessment and Plan: Patient has a history of right-sided pleural effusion, on 07/16/2021 the patient had a thoracentesis at [facility]. Will re-evaluate patient once she is hemodynamically stable to see if she would benefit from another thoracentesis (7) Anemia: Code(s): D64.9 - Anemia, unspecified Status: Acute Assessment and Plan: Of chronic disease secondary to end-stage renal disease Stable No need for transfusion at this time, transfuse hemoglobin less than 7 (8) CHF (congestive heart failure): Qualifiers: Heart failure chronicity: acute Heart failure type: unspecified Qualified Code(s): I50.9 - Heart failure, unspecified Code(s): I50.9 - Heart failure, unspecified Status: Acute Assessment and Plan: Currently holding home Lasix due to severe hypotension and sepsis from UTI (9) Hypothyroidism: Code(s): E03.9 - Hypothyroidism, unspecified Status: Acute Assessment and Plan: Continue home levothyroxine Quality VTE Prophylaxis VTE prophylaxis: mechanical ordered Hospitalist MIPS Advance Care Plan I have confirmed that the patient's Advanced Care Plan is present, code status is documented, or surrogate decision maker is listed in patient medical record.: Yes Medication Reconciliation I have utilized all available resources to obtain, update and review the patients current medications (includes all prescriptions, OTC, herbals, cannabis, and nutritional supplements).: Yes
[2024-07-14] MEDS: VANCOMYCIN 1,750 MG/NS 500 ML 1,750 MG/500 ML BAG 250 MG IVPB (16:05)
--- NOTE | 2024-07-14 16:36 | PC.NURSE ---
Recieving RN unable to take report at this time- will call back
[2024-07-14 16:42] LABS: Lactic Acid 0.8 mmol/L (0.7-2.0)
--- NOTE | 2024-07-14 17:15 | PC.NURSE ---
This patient, Dory Lynn, was admitted to Intensive Care Unit-10. Patient/family oriented to hospital policies and general routines including ID bracelet, bed and alarms, visiting hours, pain management, procedures, bathroom and other care routines, personal items, smoking policy, room service/diet, and visiting hours. Information on how to activate the Rapid Response Team has been discussed. Patient/Family are encouraged to report perceived risks to care and to ask questions if they do not understand what they are told or what they should do.
[2024-07-14 17:24] LABS: Appearance Peritoneal Fluid Clear (Clear); Color Peritoneal Fluid Colorless (Colorless); Source Peritoneal Fluid Peritoneal Fluid
[2024-07-14 17:25] LABS: Eosinophils Peritoneal Fluid 1 %; Lymphocytes Peritoneal Fluid 31 %; Mesothelial Cells Peritoneal Fluid 2 %; Monocytes Peritoneal Fluid 50 %; Neutrophils Peritoneal Fluid 16 % (0-25); Nucleated Cells Peritoneal Flu 12 /uL (0-500); RBC Peritoneal Fluid < 2000 /uL (0-10000)
[2024-07-14] MEDS: AMIODARONE 360 MG/D5W 200 ML 360 MG/200 ML BAG 33.33 MG IV CONT ×2 (17:44→23:20)
--- NOTE | 2024-07-14 18:21 | ED.PROCEDURE ---
Procedures Central Line Placement Right Femoral: Central Line Date: 07/14/24 Central Line Time: 18:05 Discussed w/ the patient/family/POA,the placement of a central venous catheter, including its clinical necessity/indication & associated potential risks, benifits and alternatives.: Yes The patient/family/POA understand(s) and acknowledge(s) the need to proceed with central venous catheter insertion as an important element of the patient's clinical management.: Yes Consent: I have discussed with the patient and/or surrogate, the non-emergent placement of a central venous catheter, including its clinical necessity/indication and associated potential risks and complications. The patient and/or surrogate understand(s) and acknowledge(s) the need to proceed with central venous catheter insertion as an important element of the patient's clinical management. Patient Position: supine Patient placed on monitor/pulse ox: Yes Provider Prep: mask, sterile gown, sterile gloves, Max. sterile barrier precautions, cap and hand hygiene with conventional soap/water or alcohol based hand rub Central line prep: 2% Chlorhexidine scrub and sterile full body sheet applied Local anesthesia used: lidocaine 1% Amount of anesthesia used (ml): 4 Sterile US Technique with sterile gel/sterile probe covers: Yes Central line lumen inserted: triple Post Procedure: sutured in place, good blood return, all ports aspirated, flushed, capped, transparent dressing and antimicrobial product Patient tolerated procedure: well Complications: none Additional comments: central line placed request of ICU for low blood pressure.
[2024-07-14] MEDS: PHENYLEPHRINE HCL INJ 50 MG in DEXTROSE 5% IN WATER 250 ML/245 ML BAG 12 ML IV CONT (20:31)
[2024-07-14 20:39] LABS: MRSA (PCR) NOT DETECTED (NOT DETECTE)
--- NOTE | 2024-07-14 21:15 | PC.NURSE ---
Call placed to Dr. Dubois regarding dialysis orders. States that Dr. Teague was actually decontamination technician and that the ED was supposed to speak with him for ordes. Call then placed to Dr. Teague. Dr. Teageu states he didn't know the pt was in the ICU. States he will resume her treatments in the am or tomorrow night.
[2024-07-14 21:37] LABS: Prothrombin Time > 120.0 Seconds (11.1-14.7)
[2024-07-14 21:39] LABS: INR > 20.0
[2024-07-14] MEDS: PHYTONADIONE ADULT INJ 10 MG in DEXTROSE 5% IN WATER 50 ML 100 MG IVPB (22:21)
[2024-07-15] VITALS (26 sets, daily range): BP systolic 89–129; BP diastolic 53–96; PULSE 86–135; RESP 18–30; TEMP 36.3–37.1; O2SAT 92–99; BMI 40.4
--- NOTE | 2024-07-15 | ECHO_ITS ---
Patient Info Name: Dory Lynn Age: 63 years : 1960 Gender: Female Ht: 60 in Wt: 207 lbs BSA: 2.05 m2 HR: 110 bpm BP: 91 / 81 mmHg Heart Rhythm: Atrial Fibrillation, Tachycardia Technical Quality: Good Exam Date: 07/15/2024 11:57 AM Exam Location: Echo Lab Exam Room: [facility] - Patient Status: Inpatient Admit Date: 07/14/2024 Staff Ordering Physician: Jie Dorsey MD Clinical Specialist Medical Device: Joann Madsen RDCS Attending Provider: Stu Hu MD Referring Physician: Willian CHAPMAN; Exam Type: CA echo doppler color flow Study Info Complete two-dimensional, color flow and Doppler transthoracic echocardiogram is performed. Summary 1. Complete two-dimensional, color flow and Doppler transthoracic echocardiogram is performed. 2. Left ventricular chamber dimension is enlarged. 3. There is mildly increased left ventricular wall thickness. 4. Left ventricular systolic function is severely reduced, estimated at 20-25%. 5. Left ventricular wall motion shows global hypokinesis, with ant segment akinesis. 6. The left ventricular diastolic function is grade III diastolic dysfunction. 7. Right ventricular systolic function is reduced. 8. Left atrial chamber dimension is enlarged. 9. Right atrial chamber dimension is enlarged. 10. There is moderate to severe tricuspid valve regurgitation. 11. Mild pulmonary hypertension, estimated pulmonary arterial systolic pressure is 53 mmHg. 12. There is moderate to severe eccentric mitral valve regurgitation. 13. There is no aortic valve stenosis. 14. Dilated inferior vena cava with <50% collapse upon inspiration consistent with elevated right atrial pressure, 15 mmHg. Left Ventricle Left ventricular chamber dimension is enlarged. Left ventricular systolic function is severely reduced, estimated at 20-25%. There is mildly increased left ventricular wall thickness. Left ventricular wall motion shows global hypokinesis, with ant segment akinesis. The left ventricular diastolic function is grade III diastolic dysfunction. Right Ventricle Right ventricular chamber dimension is normal. Right ventricular systolic function is reduced. Left Atria Left atrial chamber dimension is enlarged. Right Atria Right atrial chamber dimension is enlarged. Aortic Valve The aortic valve is trileaflet. There is mild aortic valve sclerosis. There is no aortic valve stenosis. There is no aortic valve regurgitation. Pulmonic Valve The pulmonic valve is normal. There is mild pulmonic regurgitation. Mitral Valve The mitral valve has posterior annular calcification. There is no mitral valve stenosis. There is moderate to severe eccentric mitral valve regurgitation. Tricuspid Valve The tricuspid valve leaflets are normal. There is no significant tricuspid valve stenosis. There is moderate to severe tricuspid valve regurgitation. Mild pulmonary hypertension, estimated pulmonary arterial systolic pressure is 53 mmHg. Pericardium/Pleural The pericardium appears normal. There is no pericardial effusion. Inferior Vena Cava Dilated inferior vena cava with <50% collapse upon inspiration consistent with elevated right atrial pressure, 15 mmHg. Aorta The aortic root size at the sinus of Valsalva is normal. The prox ascending aorta size is normal. Left Ventricular Outflow Tract Name Value Normal LVOT 2D LVOT Diameter 2.0 cm LVOT Doppler LVOT Peak Gradient 5 mmHg LVOT Mean Gradient 3 mmHg LVOT VTI 16 cm LVOT VTI/AV VTI Ratio 1.0 LVOT Stroke Volume 51 ml LVOT CO 6.2 l/min LVOT CI 3.0 l/min/m2 Pulmonic Valve Name Value Normal PV Doppler PV Peak Gradient 2 mmHg PV Regurgitation Doppler ID Peak End Diastolic Velocity 182 cm/s Mitral Valve Name Value Normal MV Doppler MV Peak Gradient 8 mmHg MV Mean Gradient 3 mmHg MV Decel Guadalupe 1,383 cm/s2 MV PHT 28 ms MV Area (PHT) 7.8 cm2 4.0-5.0 MV Area (Cont Eq VTI) 2.4 cm2 MV Regurgitation Doppler MR Peak Gradient 98 mmHg MV Diastolic Function MV E Peak Velocity 135 cm/s MV A Peak Velocity 34 cm/s MV E/A 3.9 MV Decel Time 98 ms MV Annular TDI MV E/e' (Septal) 17.2 <=8.0 MV E/e' (Lateral) 12.8 <=8.0 MV E/e' (Average) 15.0 Tricuspid Valve Name Value Normal TV Regurgitation Doppler TR Peak Velocity 310 cm/s TR Peak Gradient 38 mmHg Estimated PAP/RSVP RA Pressure 15 mmHg <=5 PA Systolic Pressure 53 mmHg <36 RV Systolic Pressure 53 mmHg <36 Aortic Valve Name Value Normal AV Doppler AV Peak Velocity 120 cm/s AV Peak Gradient 6 mmHg AV Mean Gradient 3 mmHg AV VTI 16 cm AV Area (Cont Eq VTI) 3.2 cm2 >=3.0 AV Area (Cont Eq Ryan) 2.9 cm2 AV Regurgitation 2D LVOT Area 3.1 cm2 Ventricles Name Value Normal LV Dimensions 2D/MM IVS Diastolic Thickness (2D) 1.0 cm 0.6-1.0 LVID Diastole (2D) 5.9 cm 3.8-5.2 LVIW Diastolic Thickness (2D) 0.9 cm 0.6-0.9 LVID Systole (2D) 5.0 cm 2.2-3.5 LVOT Diameter 2.0 cm LV Mass (2D Cubed) 222.81 g 67.00-162.00 LV Mass Index (2D Cubed) 109 g/m2 43-95 Relative Wall Thickness (2D) 0.32 LV Fractional Shortening/Ejection Fraction 2D/MM LV Fractional Shortening (2D) 14 % 27-45 LV EF (2D Teicholz) 30 % 54-74 LV Diastolic Volume (4C MOD) 118 ml LV EF (4C MOD) 17 % LV Diastolic Length (4C) 7.9 cm LV Systolic Length (4C) 7.8 cm LV Stroke Volume (4C MOD) 20 ml Atria Name Value Normal LA Dimensions LA Volume (4C A-L) 167 ml RA Dimensions RA Area (4C) 29.9 cm2 <=18.0 Report Signatures
[2024-07-15] MEDS: AMIODARONE 360 MG/D5W 200 ML 360 MG/200 ML BAG 33.33 MG IV CONT ×4 (05:20→22:59)
[2024-07-15] MEDS: LEVOTHYROXINE SODIUM 25 MCG TABLET PO (05:32)
[2024-07-15 05:42] LABS: Basophils Absolute Auto 0.1 K/mm3 (0.0-0.1); Basophils Percent Auto 0.2 % (0.2-1.2); Eosinophils Absolute Auto 0.2 K/mm3 (0-0.3); Eosinophils Percent Auto 0.7 % (0-4.4); Hematocrit 23.2 % (37.0-47.0); Hemoglobin 7.2 g/dL (12.0-15.0); Lymphocytes Absolute Auto 0.89 K/mm3 (0.9-3.2); Lymphocytes Percent Auto 4.4 % (18.3-44.2); Mean Corpuscular Hemoglobin 30.8 pg (26-34); Mean Corpuscular Volume 99.1 fl (80-100); Mean Platelet Volume 8.5 fl (7.4-10.4); Monocytes Absolute Auto 0.6 K/mm3 (0.1-0.6); Monocytes Percent Auto 2.8 % (2.6-8.5); Neutrophils Absolute Auto 18.1 K/mm3 (1.3-6.7); Neutrophils Percent Auto 89.9 % (45.5-73.1); Platelet Count Result 276 k/mm3 (150-375); Red Blood Count 2.34 M/mm3 (4.2-5.4); Red Cell Distribution Width 14.1 % (11.5-14.5); White Blood Count 20.2 K/mm3 (4.5-10.0)
[2024-07-15 05:53] LABS: INR 2.1; Prothrombin Time 23.9 Seconds (11.1-14.7)
[2024-07-15 05:54] LABS: Anion Gap 6 mmol/L (4-12); Blood Urea Nitrogen 28 mg/dL (7-17); Calcium 7.1 mg/dL (8.4-10.2); Carbon Dioxide 26 mmol/L (22-30); Chloride 97 mmol/L (98-107); Estimated CRCL calculation 7 ml/min; Estimated Glomerular Filt Rate 6; Glucose 96 mg/dL (65-110); Potassium 3.3 mmol/L (3.4-5.0); Sodium 129 mmol/L (137-145)
[2024-07-15] MEDS: KCL 40 MEQ/WATER 100 ML 100 ML 25 ML IVPB (08:51)
[2024-07-15] MEDS: GENTAMICIN SULFATE 0.1% CR 15 GM TUBE 1 APPLIC TOPICAL ×2 (08:51→20:17)
[2024-07-15] MEDS: calcitrioL 0.25 MCG CAPSULE PO (08:51)
[2024-07-15 08:56] LABS: Magnesium 1.6 mg/dL (1.6-2.3)
[2024-07-15] MEDS: MAGNESIUM SULF 2 GM/WATER 50ML 2 GM/50 ML BAG IVPB (09:34)
--- NOTE | 2024-07-15 09:43 | WPDCNINT ---
Assessment and Plan Assessment and plan (1) Septic shock: Code(s): A41.9 - Sepsis, unspecified organism; R65.21 - Severe sepsis with septic shock Status: Acute Assessment and Plan: 07/14/2024: Patient presented with fevers, chills, hypotension. -Patient was in the ER on 07/05 and was diagnosed with UTI and sent home on Bactrim only to return on 07/14 with hypotension, fever with chills, AFib RVR -was given 3 L IV fluid bolus, -patient was in AFib, hypotension, was given metoprolol which further caused more hypotension, patient was cardioverted, given IV fluids despite which she remained hypotensive -central line was inserted in the ICU by ER physician -started on phenylephrine to maintain MAP > 65 mmHg for adequate end organ perfusion -currently off phenylephrine -07/14: Blood cultures growing Gram-negative bacilli 1 of 2 bottles, await identification and sensitivities -07/14: Urine culture obtained and pending -continue cefepime and vancomycin (07/14), (2) Bacteremia: Code(s): R78.81 - Bacteremia Status: Acute Assessment and Plan: Gram-negative bacilli, continue antibiotics as above (3) UTI (urinary tract infection): Code(s): N39.0 - Urinary tract infection, site not specified Status: Acute Assessment and Plan: UA was reflective of UTI, patient also presented on 07/05/2024 and was diagnosed with UTI and gentleman back -cultures impending -continue antibiotics as above (4) Atrial fibrillation with rapid ventricular response: Code(s): I48.91 - Unspecified atrial fibrillation Status: Acute Assessment and Plan: Patient has a history of AFib, on Coumadin at home -presented on 07/14/2024 with AFib RVR, was given metoprolol which further dropped her blood pressures, patient has synchronous cardioversion, which was unsuccessful. Was given amiodarone bolus in the ER and transferred to the ICU -The ICU patient was in AFib RVR and hypotensive, patient was given the bolus of amiodarone in the ICU and started on amiodarone infusion -patient remains on amiodarone heart rate 90s to 110s, will continue amiodarone -cardiology has been consulted from the ER (5) Supratherapeutic INR: Code(s): R79.1 - Abnormal coagulation profile Status: Acute Assessment and Plan: Patient was on Bactrim for UTI which probably caused her PT/INR to be elevated -INR in the ICU was > 20 and PT was > 120 -patient was treated with 2 units of FFP and vitamin K on 07/15 -INR this morning is 2.1 -hold Coumadin and anticoagulation as patient dropped her hemoglobin to 7.2 (8.8 on admission) -baseline hemoglobin as 9.8-10.4 -started patient on Protonix IV q.12 hours (6) Cardiomyopathy: Code(s): I42.9 - Cardiomyopathy, unspecified Status: Acute Assessment and Plan: Echocardiogram from July 2021 showed an EF of 20-25% -patient does not have any other echocardiograms in the system -repeat echocardiogram -cardiology following the patient (7) Hypertension: Code(s): I10 - Essential (primary) hypertension Status: Chronic Assessment and Plan: History of hypertension, this patient presented with septic shock, was a showed phenylephrine which is currently off -blood pressures are borderline likely related to infection and sepsis -will hold all antihypertensives for now (8) Hypothyroidism: Code(s): E03.9 - Hypothyroidism, unspecified Status: Acute Assessment and Plan: Continue levothyroxine (9) End-stage renal disease on peritoneal dialysis: Code(s): N18.6 - End stage renal disease; Z99.2 - Dependence on renal dialysis Status: Acute Assessment and Plan: Patient with end-stage renal disease on peritoneal dialysis -nephrology has been consulted, and peritoneal dialysis will be scheduled for nephrology -replace potassium and magnesium Plan DVT prophylaxis: INR 2.10, patient was on Coumadin with supratherapeutic INR, anemia with drop in hemoglobin, hold all anti coagulation at this time Stress ulcer prophylaxis: Protonix IV q.12 hours Nutrition: Renal dialysis diet Code Status: Full code Critical Care Time Spent: 49 minute Discussed with patient updated with her condition and plan of care. I answered all her questions Due to a high probability of clinically significant, life threatening deterioration, the patient required my highest level of preparedness to intervene emergently and I personally spent this critical care time directly and personally managing the patient. This critical care time included obtaining a history; examining the patient; pulse oximetry; ordering and review of studies; arranging urgent treatment with development of a management plan; evaluation of patient's response to treatment; frequent reassessment; and discussions with other providers. It was exclusive of separately billable procedures and treating other patients and teaching time. Please see Assessment and Plan section and the rest of the note for further information on patient assessment and treatment This dictation may have been done utilizing a voice recognition system. Attempts have been made to correct errors. However, there may be uncorrected grammatical, spelling, and recognitions errors present. Manager [facility] Consult Note Consult date: 07/15/24 Reason for consult: Septic shock, UTI, AFib RVR, hypotension HPI: Dory Lynn is a 63 year old female with past medical history of atrial fibrillation on Coumadin, chronic kidney disease on peritoneal dialysis, essential hypertension presented the ED on 07/14/2024 with complaints of fevers, chills, low blood pressures. She was seen in the ER on 07/05/2024 and was diagnosed with UTI and was sent home on Bactrim. In the ER patient was in AFib RVR with heart rates in the 130s to 150s. Patient was also given IV Lopressor which further dropped her blood pressure, patient was cardioverted with no response. Was given a bolus of amiodarone but no drip was started. Patient received 3 L of IV fluid bolus for hypotension despite which she remained hypotensive. Patient had a leukocytosis of 15.7, hemoglobin of 8.8, sodium 128, potassium 3.3, creatinine of 7.8, lactic of 2.6. UA was reflective of UTI. Influenza, RSV and COVID were negative. Peritoneal fluid was sent for culture along with urine and blood cultures. Patient was started on vancomycin and cefepime -CT scan of the chest abdomen and pelvis: 1. 8 cm complex cystic lesion within the spleen which could represent a hematoma, abscess or less likely neoplasm. 2. Tiny left pleural effusion with likely combination of atelectasis and mild pulmonary edema in the dependent lungs. 3. Moderate cardiomegaly with enlargement of the central pulmonary arteries consistent with pulmonary arterial hypertension. 4. Moderate bilateral renal atrophy with bilateral nephrolithiasis including a 9 mm stone at the right ureteropelvic junction without hydronephrosis which could reflect poor renal function. 5. Small to moderate amount of ascites likely related to peritoneal dialysis with dialysis catheter in the pelvis. 6. Extensive diverticulosis Patient was transferred to the ICU for further management, upon arrival to the ICU she was hypotensive, ER physician and placed a central line and patient was started on phenylephrine Patient seen and examined this morning in the ICU, very pleasant female currently in no acute distress, denies any chest pain, shortness of breath, abdominal pain, nausea vomiting. OFF phenylephrine, remains on amiodarone infusion at 1 mg/min. Rates currently in the 90s to 100s. Blood pressures remain stable, currently afebrile but patient had a T-max of 101.1? overnight. Peritoneal fluid analysis was pretty unremarkable. Blood cultures growing gram negative bacilli Review of Systems Review of Systems: All systems reviewed & are unremarkable except as noted in HPI and below PMFSH Past Medical History Medical History Afib Chronic kidney disease, unspecified Chronic kidney disease Acute renal failure Hypertension Surgical History Surgical History History of tonsillectomy History of Family History Family History Father CAD (coronary artery disease) Mother Hypertension Social History Social History Social History: The patient lives at home with her daughter and mother. 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 She used to smoke half a pack of cigarettes per day but quit smoking in 2018. She has 20 pack per year smoking history. She used to drink 1-2 beers a day every day but quit doing so several years ago. She now drinks 1 beer on rare occasion. She denies any illicit substance use. Primary care provider: Brandie Rhoades OPHTHALMIC TECHNOLOGIST Code status: Full code Surrogate decision maker: Daughter Smoking packs per day: 0.5 Smoking cigarettes per day: 10.0 Years smoked: 40 Smoking pack-years: 20.00 Smoking status: Former smoker Alcohol intake: unknown Drinks per week: 1 Substance use: unknown Do You Feel Safe in your Home?: Yes Lack of Transportation: No Lack of Food: Never True Current Housing: I Have Housing Concerned About Future Housing: No Difficulty Paying Gas/Electric Bills: No Difficulty Paying for Meds: No Currently Unemployed: No Education: Decline to Answer Difficulty w/ Childcare or Family Care: No Spiritual care concerns: No Meds Home Medications and Allergies Home Medications ?Medication ?Instructions ?Recorded ?Confirmed ?Type metoprolol tartrate 50 mg tablet 100 mg (2 x 50 mg) PO BID #60 tabs 07/30/21 07/14/24 Rx warfarin 2.5 mg tablet 2.5 mg PO DAILY #30 tabs 07/30/21 07/14/24 Rx vitamin B complex-vitamin C-folic 1 tablet PO DAILY #90 tabs 11/20/22 07/14/24 Rx acid 0.8 mg tablet (Nephro-Silvia) calcitriol 0.25 mcg capsule 0.25 mcg PO DAILY 07/14/24 07/14/24 History furosemide 80 mg tablet 80 mg PO BID 07/14/24 07/14/24 History gentamicin 0.1 % topical cream 1 applic topical DAILY 07/14/24 07/14/24 History levothyroxine 25 mcg tablet 25 mcg PO DAILY 07/14/24 07/14/24 History losartan 100 mg tablet 100 mg PO DAILY 07/14/24 07/14/24 History potassium chloride 10 mEq 10 meq PO DAILY 07/14/24 07/14/24 History tablet,extended release Allergies Allergy/AdvReac Type Severity Reaction Status Date / Time PHILIP Inhibitors Allergy Severe Swelling Verified 07/05/24 12:01 of Lip/Tongue/Throat azithromycin Allergy Severe Dyspnea / Verified 07/05/24 12:01 SOB Vital Signs Vital Signs - 24 hr 07/14/24 09:57 07/14/24 10:46 07/14/24 10:48 Temperature 101.1 F H Pulse Rate 109 H 162 H 156 H Respiratory Rate 18 21 H Blood Pressure 96/52 L 120/71 Pulse Oximetry 97 93 Oxygen Delivery Oxygen Flow Rate 07/14/24 11:01 07/14/24 11:16 07/14/24 11:30 Temperature Pulse Rate 153 H 154 H 157 H Respiratory Rate 20 19 Blood Pressure 129/90 112/64 Pulse Oximetry Oxygen Delivery Oxygen Flow Rate 07/14/24 11:31 07/14/24 11:46 07/14/24 12:16 Temperature Pulse Rate 160 H 137 H 137 H Respiratory Rate 25 H 24 H 22 H Blood Pressure 121/82 101/69 107/73 Pulse Oximetry 97 Oxygen Delivery Oxygen Flow Rate 07/14/24 12:30 07/14/24 12:31 07/14/24 12:45 Temperature 100.2 F H Pulse Rate 156 H 149 H 134 H Respiratory Rate 17 18 21 H Blood Pressure 109/69 Pulse Oximetry 95 96 95 Oxygen Delivery Oxygen Flow Rate 07/14/24 12:46 07/14/24 12:51 07/14/24 12:59 Temperature Pulse Rate 156 H 136 H 161 H Respiratory Rate 17 19 18 Blood Pressure 82/47 L 88/66 L 83/49 L Pulse Oximetry 97 95 Oxygen Delivery Oxygen Flow Rate 07/14/24 13:01 07/14/24 13:16 07/14/24 13:35 Temperature Pulse Rate 155 H 153 H 169 H Respiratory Rate 16 20 18 Blood Pressure 85/59 L 81/56 L 80/69 L Pulse Oximetry 96 96 96 Oxygen Delivery Oxygen Flow Rate 07/14/24 14:14 07/14/24 14:15 07/14/24 14:26 Temperature Pulse Rate 132 H 133 H 123 H Respiratory Rate 30 H Blood Pressure 82/58 L 80/57 L 80/51 L Pulse Oximetry 94 Oxygen Delivery Oxygen Flow Rate 07/14/24 14:45 07/14/24 14:46 07/14/24 14:47 Temperature Pulse Rate 134 H 131 H 123 H Respiratory Rate 19 19 22 H Blood Pressure 97/60 L 110/98 H Pulse Oximetry 93 100 99 Oxygen Delivery Oxygen Flow Rate 07/14/24 15:01 07/14/24 15:16 07/14/24 15:32 Temperature Pulse Rate 134 H 132 H 135 H Respiratory Rate 20 18 19 Blood Pressure 113/75 122/108 H 122/108 H Pulse Oximetry 100 99 100 Oxygen Delivery Oxygen Flow Rate 07/14/24 15:46 07/14/24 16:27 07/14/24 17:03 Temperature 99.1 F Pulse Rate 144 H 134 H Respiratory Rate 21 H 20 Blood Pressure 91/67 L 97/77 L Pulse Oximetry 100 100 Oxygen Delivery Oxygen Flow Rate 07/14/24 17:30 07/14/24 17:43 07/14/24 17:44 Temperature Pulse Rate 143 H 155 H 155 H Respiratory Rate 20 Blood Pressure 87/62 L 87/62 L 87/62 L Pulse Oximetry 99 Oxygen Delivery Oxygen Flow Rate 07/14/24 18:00 07/14/24 18:00 07/14/24 18:00 Temperature Pulse Rate 129 H 122 H 120 H Respiratory Rate 20 Blood Pressure 81/51 L 89/65 L Pulse Oximetry 100 Oxygen Delivery Oxygen Flow Rate 07/14/24 20:00 07/14/24 20:00 07/14/24 20:00 Temperature 98.0 F Pulse Rate 117 H 105 H Respiratory Rate 17 Blood Pressure 83/71 L Pulse Oximetry 97 97 Oxygen Delivery Nasal Cannula Oxygen Flow Rate 2 07/14/24 20:00 07/14/24 20:31 07/14/24 22:00 Temperature Pulse Rate 123 H 105 H 99 Respiratory Rate Blood Pressure 79/63 L Pulse Oximetry Oxygen Delivery Oxygen Flow Rate 07/14/24 22:00 07/14/24 22:00 07/14/24 22:08 Temperature Pulse Rate 99 111 H 119 H Respiratory Rate 15 Blood Pressure 95/69 L 95/69 L Pulse Oximetry 97 Oxygen Delivery Oxygen Flow Rate 07/14/24 23:20 07/14/24 23:22 07/14/24 23:37 Temperature 97.5 F L Pulse Rate 106 H 106 H 117 H Respiratory Rate 20 Blood Pressure 101/79 Pulse Oximetry 96 Oxygen Delivery Oxygen Flow Rate 07/14/24 23:41 07/14/24 23:54 07/15/24 00:00 Temperature 97.7 F Pulse Rate 104 H 94 86 Respiratory Rate 20 Blood Pressure 101/79 97/81 L Pulse Oximetry 98 Oxygen Delivery Oxygen Flow Rate 07/15/24 00:00 07/15/24 00:00 07/15/24 00:00 Temperature 97.7 F Pulse Rate 86 86 Respiratory Rate 20 Blood Pressure 97/81 L Pulse Oximetry 98 98 Oxygen Delivery Nasal Cannula Oxygen Flow Rate 2 07/15/24 00:00 07/15/24 00:20 07/15/24 00:30 Temperature 97.5 F L Pulse Rate 105 H 94 100 Respiratory Rate 20 24 H Blood Pressure 95/81 L 89/55 L Pulse Oximetry 98 96 Oxygen Delivery Oxygen Flow Rate 07/15/24 00:47 07/15/24 01:26 07/15/24 01:30 Temperature 97.4 F L 97.4 F L Pulse Rate 105 H 99 110 H Respiratory Rate 26 H 20 Blood Pressure 90/71 L 94/69 L 95/78 L Pulse Oximetry 97 98 Oxygen Delivery Oxygen Flow Rate 07/15/24 02:00 07/15/24 02:00 07/15/24 02:00 Temperature Pulse Rate 94 94 94 Respiratory Rate Blood Pressure 95/76 L Pulse Oximetry Oxygen Delivery Oxygen Flow Rate 07/15/24 02:00 07/15/24 04:00 07/15/24 04:00 Temperature Pulse Rate 94 122 H 122 H Respiratory Rate 20 Blood Pressure 95/76 L Pulse Oximetry 97 Oxygen Delivery Oxygen Flow Rate 07/15/24 04:00 07/15/24 04:00 07/15/24 04:00 Temperature 97.7 F Pulse Rate 115 H 122 H Respiratory Rate 24 H Blood Pressure 95/71 L Pulse Oximetry 99 99 Oxygen Delivery Nasal Cannula Oxygen Flow Rate 2 07/15/24 05:20 07/15/24 05:20 07/15/24 06:00 Temperature Pulse Rate 110 H 110 H 120 H Respiratory Rate Blood Pressure 94/70 L Pulse Oximetry Oxygen Delivery Oxygen Flow Rate 07/15/24 06:00 07/15/24 06:00 07/15/24 08:00 Temperature Pulse Rate 120 H 120 H 109 H Respiratory Rate 18 Blood Pressure 97/81 L 106/79 Pulse Oximetry 99 Oxygen Delivery Oxygen Flow Rate Exam Narrative: General: Very pleasant female in no acute distress HEENT:? Pupils are equal and reactive, sclerae is clear, moist oral mucosa Neck:? Supple Respiratory:? Clear to auscultation bilaterally, decreased air entry at bases, no wheezing, adequate air entry Cardiac:? irregularly irregular, tachycardic Abdomen:? Soft, nontender, nondistended, obese, PD catheter in place Extremities:, no edema, palpable pedal pulses Neuro:? Patient is awake, alert, oriented, nonfocal, answers to questions appropriately and follows simple commands in all extremities Skin:? Warm and dry Psych:? Normal mentation and affect Results Labs 07/15/24 05:36 07/15/24 05:36 Labs: Short CBC 07/14/24 07/15/24 Range/Units 11:26 05:36 WBC 15.7 H 20.2 H (4.5-10.0) K/mm3 Hgb 8.8 L 7.2 L (12.0-15.0) g/dL Hct 28.3 L 23.2 L (37.0-47.0) % Plt Count 345 276 (150-375) k/mm3 [facility] 07/14/24 07/15/24 11:26 05:36 Sodium 128 L 129 L Potassium 3.3 L 3.3 L Chloride 93 L 97 L Carbon Dioxide 29 26 BUN 29 H 28 H Creatinine 7.80 H 7.80 H Glucose 129 H 96 Calcium 8.0 L 7.1 L Liver Function 07/14/24 Range/Units 11:26 Total Bilirubin 0.8 (0.2-1.3) mg/dL AST 31 (14-36) U/L ALT 24 (6-35) U/L Alkaline Phosphatase 52 (38-126) U/L Albumin 3.1 L (3.5-5.1) g/dL Urine 07/14/24 Range/Units 13:35 Urine Color Yellow (Yellow) Urine Appearance Cloudy H (Clear) Urine pH 8.0 (5.0-9.0) Ur Specific [place] 1.010 (1.001-1.035) Urine Protein 2+ H (Negative) mg/dL Urine Glucose (UA) Negative (Negative) mg/dL Quality If No VTE Prophylaxis Answer both mechanical and pharmacologic: Reason no mechanical VTE proph: medical contraindication (Bilateral lower extremity weeping with wounds) Reason no pharmacologic proph: medical contraindication active bleeding/bleeding risk, coagulation disorder and supratherapeutic INR >3 Hospitalist MIPS Advance Care Plan I have confirmed that the patient's Advanced Care Plan is present, code status is documented, or surrogate decision maker is listed in patient medical record.: Yes Medication Reconciliation I have utilized all available resources to obtain, update and review the patients current medications (includes all prescriptions, OTC, herbals, cannabis, and nutritional supplements).: Yes
--- NOTE | 2024-07-15 10:01 | P.CONNP_ITS ---
Assessment and Plan Assessment and plan (1) End stage renal disease: Code(s): N18.6 - End stage renal disease Status: Chronic Assessment and Plan: * resume CCPD tonight * no evidence of peritonitis by PD fluid analysis done in ER * follow electrolytes, volume status, and clearance * adjust PD prescription as needed (2) Septic shock: Code(s): A41.9 - Sepsis, unspecified organism; R65.21 - Severe sepsis with septic shock Status: Acute Assessment and Plan: * as noted by presentation with fever, chills, and hypotension along with Afib with RVR * s/p 3L fluid resuscitation but remained hypotension * hypotension worsened by use of IV metoprolol (given in an attempt to control Afib with RVR) * central line placed and started on vasopressors for persistent low BP * has since been weaned off phenylephrine * culture data noted: * blood culture with Gram negative bacilli * urine cultuee pending * on antibiotics (3) Bacteremia: Code(s): R78.81 - Bacteremia Status: Acute Assessment and Plan: * presumed source for #2 * blood culture with gram negative bacilli * suspected urinary source * on antibiotics * see #2 (4) UTI (urinary tract infection): Code(s): N39.0 - Urinary tract infection, site not specified Status: Acute Assessment and Plan: * admission UA highly suggestive * diagnosied with UTI ~ 10 days ago prior to recent ER visit * follow culture data * already on antibiotics (5) Atrial fibrillation with rapid ventricular response: Code(s): I48.91 - Unspecified atrial fibrillation Status: Acute Assessment and Plan: * noted on presentation to ER * known history * attempts at rate control with metoprolol failed (and resulted in worsening hypotension * failed attempted cardioversion as well * initiated on amiodarone gtt * Cardiology to see (6) Cardiomyopathy: Code(s): I42.9 - Cardiomyopathy, unspecified Status: Acute Assessment and Plan: * known history: * last echo from July 2021 with an EF of 20-25% * repeat echo ordered * appears compensated at this time * Cardiology to see (7) Anemia: Code(s): D64.9 - Anemia, unspecified Status: Chronic Assessment and Plan: * due to ESRD and acute illness * complicated by supratherapetic INR on presentation * this was corrected with FFP and Vitamin K * PRBC transfusion per protocol * start Retacrit while hospitalized * follow trend of H/H (8) Hypertension: Code(s): I10 - Essential (primary) hypertension Status: Chronic Assessment and Plan: * presented with hypotension and hemodynamic instability * weaned off vasopressor therapy * BP medications on hold due to borderline low BP currently * follow trend of hemodynamics Case discussed with Dr. Dorsey. I will continue to follow the patient with you while she remains hospitalized and make further recommendations as deemed necessary. Thank you for allowing me to participate in the care of this patient. L History of Present Illness Reason for Consult Consult date: 07/15/24 Reason for consult: end stage renal disease Chief Complaint Chief complaint: sepsis, afib with rvr History of Present Illness Narrative: The patient is a 63-year-old female with a past medical history as outlined below who presented to [facility] Emergency Room yesterday with complaints of low blood pressures and associated fever. The patient was just seen in the ER about 10 days ago and diagnosed with the urinary tract infection. She was prescribed Bactrim and subsequently discharged. However, since that time, she noted on and off fevers in association with low blood pressure - she routinely checks her blood pressure at home since she is on peritoneal dialysis as this helps her decide how she should adjust her peritoneal dialysis prescription every evening. Given her low blood pressure in association with ongoing fevers and associated chills, she presented to the emergency room for further assessment. Workup and evaluation emergency room demonstrated the patient be quite hypotensive with a systolic BP in the 80s in association with significant tachycardia in the range of 130-150s. It was noted that she was in AFib with RVR and attempt to control her heart rate, she was given IV Lopressor but this unfortunately dropped her blood pressure even further. She received a total of 3 L of IV fluids for resuscitation but her hypotension persisted. Attempted cardioversion given her hemodynamic instability in conjunction with AFib with RVR was unsuccessful as well. She received a bolus of IV amiodarone but was not started on a continuous infusion /drip. Routine blood work was significant for an elevated white blood count of 15.7, relative anemia with a hemoglobin of 8.8, and a chemistry that was consistent with her known history of end-stage renal disease with a sodium 128, potassium of 3.3, and a lactic acid of 2.6. Her urinalysis was highly suggestive of urinary tract infection and viral testing for influenza, RSV, and COVID were negative. A PD fluid sample was sent for analysis which did not appear indicative infection. Given her persistent hypotension, central line was placed and she was initiated on vasopressor therapy. Subsequent imaging with a CT scan of the chest/abdomen/ pelvis was significant for a 1.8 cm complex cystic lesion within the spleen, tiny left pleural effusion with a combination of atelectasis and mild pulmonary edema in the dependent lungs, moderate cardiomegaly with enlargement of the central pulmonary arteries consistent with pulmonary arterial hypertension, moderate bilateral renal atrophy and bilateral nephrolithiasis and small to moderate amount of ascites secondary to her peritoneal dialysis as well as extensive diverticulosis. After appropriate cultures were obtained, she was initiated on broad-spectrum antibiotics and she was subsequently transferred to the intensive care unit for further evaluation therapy. Since her admission to the ICU, her AFib with RVR persisted and she was initiated on amiodarone drip. Her hemodynamics have improved to the point where her phenylephrine has been weaned off relatively stable blood pressures although still somewhat soft. Her heart rate appears to be doing better with the amiodarone drip but she was febrile overnight with a temperature of 101.0?. Preliminary blood cultures are demonstrating Gram-negative bacilli. Renal consultation was requested due to her end-stage renal disease. The patient normally does peritoneal dialysis under the care of Dr. Mookie Dubois through [facility]. She is compliant with her peritoneal dialysis treatments with relative stability in her ESRD parameters as demonstrated by her monthly labs. Due the events yesterday afternoon/ evening, she did not receive her peritoneal dialysis treatment last night. However, as noted by admission as well as labs this morning, she does not appear to have any critical electrolyte abnormalities relative stability in her volume status at this time despite the aggressive IV fluid resuscitation as well as multiple IV medications/drips since her admission to the ICU/ hospital. Currently, the time my visit, she does not appear to be in any acute distress.i PMFSH Past Medical History Medical History Afib Chronic kidney disease, unspecified Chronic kidney disease Acute renal failure Hypertension Surgical History Surgical History History of tonsillectomy History of Family History Family History Father CAD (coronary artery disease) Mother Hypertension Social History Social History Social History: The patient lives at home with her daughter and mother. 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 She used to smoke half a pack of cigarettes per day but quit smoking in 2018. She has 20 pack per year smoking history. She used to drink 1-2 beers a day every day but quit doing so several years ago. She now drinks 1 beer on rare occasion. She denies any illicit substance use. Primary care provider: Brandie Rhoades NP Code status: Full code Surrogate decision maker: Daughter Smoking packs per day: 0.5 Smoking cigarettes per day: 10.0 Years smoked: 40 Smoking pack-years: 20.00 Smoking status: Former smoker Alcohol intake: unknown Drinks per week: 1 Substance use: unknown Do You Feel Safe in your Home?: Yes Lack of Transportation: No Lack of Food: Never True Current Housing: I Have Housing Concerned About Future Housing: No Difficulty Paying Gas/Electric Bills: No Difficulty Paying for Meds: No Currently Unemployed: No Education: Decline to Answer Difficulty w/ Childcare or Family Care: No Spiritual care concerns: No Meds Home Medications and Allergies Home Medications ?Medication ?Instructions ?Recorded ?Confirmed ?Type metoprolol tartrate 50 mg tablet 100 mg (2 x 50 mg) PO BID #60 tabs 07/30/21 07/14/24 Rx warfarin 2.5 mg tablet 2.5 mg PO DAILY #30 tabs 07/30/21 07/14/24 Rx vitamin B complex-vitamin C-folic 1 tablet PO DAILY #90 tabs 11/20/22 07/14/24 Rx acid 0.8 mg tablet (Nephro-Silvia) calcitriol 0.25 mcg capsule 0.25 mcg PO DAILY 07/14/24 07/14/24 History furosemide 80 mg tablet 80 mg PO BID 07/14/24 07/14/24 History gentamicin 0.1 % topical cream 1 applic topical DAILY 07/14/24 07/14/24 History levothyroxine 25 mcg tablet 25 mcg PO DAILY 07/14/24 07/14/24 History losartan 100 mg tablet 100 mg PO DAILY 07/14/24 07/14/24 History potassium chloride 10 mEq 10 meq PO DAILY 07/14/24 07/14/24 History tablet,extended release Allergies Allergy/AdvReac Type Severity Reaction Status Date / Time PHILIP Inhibitors Allergy Severe Swelling Verified 07/05/24 12:01 of Lip/Tongue/Throat azithromycin Allergy Severe Dyspnea / Verified 07/05/24 12:01 SOB Vital Signs Vital Signs Temp Pulse Resp BP Pulse Ox O2 Del Method O2 Flow Rate 07/15/24 10:00 105 H 30 H 98/68 L 96 Nasal Cannula 2 07/15/24 08:00 98.3 F 109 H 20 106/79 99 07/15/24 08:00 112 H 07/15/24 08:00 99 Nasal Cannula 2 07/15/24 08:00 109 H 106/79 07/15/24 06:00 120 H 07/15/24 06:00 120 H 18 97/81 L 99 07/15/24 06:00 120 H 07/15/24 05:20 110 H 94/70 L 07/15/24 05:20 110 H 07/15/24 04:00 97.7 F 122 H 24 H 95/71 L 99 07/15/24 04:00 115 H 07/15/24 04:00 99 Nasal Cannula 2 07/15/24 04:00 122 H 07/15/24 04:00 122 H 07/15/24 02:00 94 20 95/76 L 97 07/15/24 02:00 94 07/15/24 02:00 94 95/76 L 07/15/24 02:00 94 07/15/24 01:30 110 H 95/78 L 07/15/24 01:26 97.4 F L 99 20 94/69 L 98 07/15/24 00:47 97.4 F L 105 H 26 H 90/71 L 97 07/15/24 00:30 97.5 F L 100 24 H 89/55 L 96 07/15/24 00:20 94 20 95/81 L 98 07/15/24 00:00 105 H 07/15/24 00:00 97.7 F 86 20 97/81 L 98 07/15/24 00:00 98 Nasal Cannula 2 07/15/24 00:00 86 07/15/24 00:00 86 07/14/24 23:54 97.7 F 94 20 97/81 L 98 07/14/24 23:41 104 H 101/79 07/14/24 23:37 97.5 F L 117 H 20 101/79 96 07/14/24 23:22 106 H 07/14/24 23:20 106 H 07/14/24 22:08 119 H 95/69 L 07/14/24 22:00 111 H 07/14/24 22:00 99 15 95/69 L 97 07/14/24 22:00 99 07/14/24 20:31 105 H 79/63 L 07/14/24 20:00 123 H 07/14/24 20:00 105 H 07/14/24 20:00 97 Nasal Cannula 2 07/14/24 20:00 98.0 F 117 H 17 83/71 L 97 07/14/24 18:00 120 H 89/65 L 07/14/24 18:00 122 H 20 81/51 L 100 07/14/24 18:00 129 H 07/14/24 17:44 155 H 87/62 L 07/14/24 17:43 155 H 87/62 L 07/14/24 17:30 143 H 20 87/62 L 99 07/14/24 17:03 134 H 20 97/77 L 100 07/14/24 16:27 99.1 F 07/14/24 15:46 144 H 21 H 91/67 L 100 07/14/24 15:32 135 H 19 122/108 H 100 07/14/24 15:16 132 H 18 122/108 H 99 Exam 2 Narrative: GENERAL APPEARANCE: well developed well nourished female in no acute distress HEENT: normocephalic, atraumatic, normal conjunctiva and sclera, nares patient NECK: no lymphadenopathy, thyromegaly, or JVD MOUTH: normal lips, teeth, and gums CARDIOVASCULAR: IRRR, tachycardic, normal S1 and S2, no rub RESPIRATORY: clear anteriorly; decreased at bases ABDOMEN: soft, nontender, nondistended, positive bowel sounds present; PD catheter c/d/i EXTREMITIES: no evidence of cyanosis, clubbing; trace edema NEUROLOGICAL: alert and oriented x 3; CN II - XII intact bilaterally; no focal deficits noted Results Lab Results 07/16/24 04:56 07/16/24 04:56 Lab results: Most recent lab results Calcium 7.1 mg/dL (8.4-10.2) L 07/15/24 05:36 Magnesium 1.6 mg/dL (1.6-2.3) 07/15/24 05:36
--- NOTE | 2024-07-15 10:17 | PM.CNCAR ---
Assessment and Plan Assessment and plan (1) Atrial fibrillation with rapid ventricular response: Code(s): I48.91 - Unspecified atrial fibrillation Status: Acute Assessment and Plan: Chronic atrial fibrillation managed with metoprolol for rate control. She now has RVR in the setting of acute illness with UTI. She has been placed on amiodarone drip and her heart rate is controlled. In this situation amiodarone is being used for rate control vs. chemical cardioversion as her AF is chronic. When her blood pressure improves would recommend shifting her from amiodarone back to metoprolol. Continue warfarin for anticoagulation. (2) CHF (congestive heart failure): Qualifiers: Heart failure chronicity: acute Heart failure type: unspecified Qualified Code(s): I50.9 - Heart failure, unspecified Code(s): I50.9 - Heart failure, unspecified Status: Acute Assessment and Plan: She appears compensated at this time. (3) Hypotension: Code(s): I95.9 - Hypotension, unspecified Status: Acute Assessment and Plan: Secondary to UTI, sepsis. Blood pressure is stable. (4) Cardiomyopathy: Code(s): I42.9 - Cardiomyopathy, unspecified Status: Acute Assessment and Plan: EF 20-25% in 2021. Repeat echo is pending. Limited options for GDMT as she has ESRD. History of Present Illness History of Present Illness Consult date/time: 07/15/24 10:17 Reason For Visit: sepsis, afib with rvr Narrative: Dory Lynn is a 63-year-old female with atrial fibrillation and cardiomyopathy. She was initially diagnosed with atrial fibrillation in July of 2021. At that time, she was treated medically in loaded with amiodarone. An echocardiogram during the hospitalization showed severe LV dysfunction with an EF of 20-25%. She subsequently underwent LAUREEN guided cardioversion to restore sinus rhythm. She was also found to have end-stage renal failure and was started on hemodialysis during the hospital stay. At some point following the hospitalization she reverted to atrial fibrillation and the patient declined further attempts at worship of sinus rhythm. Therefore, she has been rate controlled on metoprolol and maintained on warfarin for anticoagulation. She is hospitalized now with a urinary tract infection and has been in atrial fibrillation with rapid ventricular response in the setting of infection. She does not feel any chest pain, palpitations, shortness of breath. She has no complaints at the time of my evaluation. Review of Systems Review of Systems: All systems reviewed & are unremarkable except as noted in HPI and below PMFSH Past Medical History Medical History Afib Chronic kidney disease, unspecified Chronic kidney disease Acute renal failure Hypertension Surgical History Surgical History History of tonsillectomy History of Family History Family History Father CAD (coronary artery disease) Mother Hypertension Social History Social History Social History: The patient lives at home with her daughter and mother. 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 She used to smoke half a pack of cigarettes per day but quit smoking in 2018. She has 20 pack per year smoking history. She used to drink 1-2 beers a day every day but quit doing so several years ago. She now drinks 1 beer on rare occasion. She denies any illicit substance use. Primary care provider: Brandie Rhoades [employer] [employer] Code status: Full code Surrogate decision maker: Daughter Smoking packs per day: 0.5 Smoking cigarettes per day: 10.0 Years smoked: 40 Smoking pack-years: 20.00 Smoking status: Former smoker Alcohol intake: unknown Drinks per week: 1 Substance use: unknown Do You Feel Safe in your Home?: Yes Lack of Transportation: No Lack of Food: Never True Current Housing: I Have Housing Concerned About Future Housing: No Difficulty Paying Gas/Electric Bills: No Difficulty Paying for Meds: No Currently Unemployed: No Education: Decline to Answer Difficulty w/ Childcare or Family Care: No Spiritual care concerns: No Meds Home Medications and Allergies Home Medications ?Medication ?Instructions ?Recorded ?Confirmed ?Type metoprolol tartrate 50 mg tablet 100 mg (2 x 50 mg) PO BID #60 tabs 07/30/21 07/14/24 Rx warfarin 2.5 mg tablet 2.5 mg PO DAILY #30 tabs 07/30/21 07/14/24 Rx vitamin B complex-vitamin C-folic 1 tablet PO DAILY #90 tabs 11/20/22 07/14/24 Rx acid 0.8 mg tablet (Nephro-Silvia) calcitriol 0.25 mcg capsule 0.25 mcg PO DAILY 07/14/24 07/14/24 History furosemide 80 mg tablet 80 mg PO BID 07/14/24 07/14/24 History gentamicin 0.1 % topical cream 1 applic topical DAILY 07/14/24 07/14/24 History levothyroxine 25 mcg tablet 25 mcg PO DAILY 07/14/24 07/14/24 History losartan 100 mg tablet 100 mg PO DAILY 07/14/24 07/14/24 History potassium chloride 10 mEq 10 meq PO DAILY 07/14/24 07/14/24 History tablet,extended release Allergies Allergy/AdvReac Type Severity Reaction Status Date / Time PHILIP Inhibitors Allergy Severe Swelling Verified 07/05/24 12:01 of Lip/Tongue/Throat azithromycin Allergy Severe Dyspnea / Verified 07/05/24 12:01 SOB Vital Signs Vital Signs - 24 hr 07/14/24 10:46 07/14/24 10:48 07/14/24 11:01 Temperature Pulse Rate 162 H 156 H 153 H Respiratory Rate 18 21 H 20 Blood Pressure 120/71 129/90 Pulse Oximetry 93 Oxygen Delivery Oxygen Flow Rate 07/14/24 11:16 07/14/24 11:30 07/14/24 11:31 Temperature Pulse Rate 154 H 157 H 160 H Respiratory Rate 19 25 H Blood Pressure 112/64 121/82 Pulse Oximetry Oxygen Delivery Oxygen Flow Rate 07/14/24 11:46 07/14/24 12:16 07/14/24 12:30 Temperature Pulse Rate 137 H 137 H 156 H Respiratory Rate 24 H 22 H 17 Blood Pressure 101/69 107/73 Pulse Oximetry 97 95 Oxygen Delivery Oxygen Flow Rate 07/14/24 12:31 07/14/24 12:45 07/14/24 12:46 Temperature 37.9 C H Pulse Rate 149 H 134 H 156 H Respiratory Rate 18 21 H 17 Blood Pressure 109/69 82/47 L Pulse Oximetry 96 95 97 Oxygen Delivery Oxygen Flow Rate 07/14/24 12:51 07/14/24 12:59 07/14/24 13:01 Temperature Pulse Rate 136 H 161 H 155 H Respiratory Rate 19 18 16 Blood Pressure 88/66 L 83/49 L 85/59 L Pulse Oximetry 95 96 Oxygen Delivery Oxygen Flow Rate 07/14/24 13:16 07/14/24 13:35 07/14/24 14:14 Temperature Pulse Rate 153 H 169 H 132 H Respiratory Rate 20 18 Blood Pressure 81/56 L 80/69 L 82/58 L Pulse Oximetry 96 96 Oxygen Delivery Oxygen Flow Rate 07/14/24 14:15 07/14/24 14:26 07/14/24 14:45 Temperature Pulse Rate 133 H 123 H 134 H Respiratory Rate 30 H 19 Blood Pressure 80/57 L 80/51 L 97/60 L Pulse Oximetry 94 93 Oxygen Delivery Oxygen Flow Rate 07/14/24 14:46 07/14/24 14:47 07/14/24 15:01 Temperature Pulse Rate 131 H 123 H 134 H Respiratory Rate 19 22 H 20 Blood Pressure 110/98 H 113/75 Pulse Oximetry 100 99 100 Oxygen Delivery Oxygen Flow Rate 07/14/24 15:16 07/14/24 15:32 07/14/24 15:46 Temperature Pulse Rate 132 H 135 H 144 H Respiratory Rate 18 19 21 H Blood Pressure 122/108 H 122/108 H 91/67 L Pulse Oximetry 99 100 100 Oxygen Delivery Oxygen Flow Rate 07/14/24 16:27 07/14/24 17:03 07/14/24 17:30 Temperature 37.3 C Pulse Rate 134 H 143 H Respiratory Rate 20 20 Blood Pressure 97/77 L 87/62 L Pulse Oximetry 100 99 Oxygen Delivery Oxygen Flow Rate 07/14/24 17:43 07/14/24 17:44 07/14/24 18:00 Temperature Pulse Rate 155 H 155 H 129 H Respiratory Rate Blood Pressure 87/62 L 87/62 L Pulse Oximetry Oxygen Delivery Oxygen Flow Rate 07/14/24 18:00 07/14/24 18:00 07/14/24 20:00 Temperature 36.7 C Pulse Rate 122 H 120 H 117 H Respiratory Rate 20 17 Blood Pressure 81/51 L 89/65 L 83/71 L Pulse Oximetry 100 97 Oxygen Delivery Oxygen Flow Rate 07/14/24 20:00 07/14/24 20:00 07/14/24 20:00 Temperature Pulse Rate 105 H 123 H Respiratory Rate Blood Pressure Pulse Oximetry 97 Oxygen Delivery Nasal Cannula Oxygen Flow Rate 2 07/14/24 20:31 07/14/24 22:00 07/14/24 22:00 Temperature Pulse Rate 105 H 99 99 Respiratory Rate 15 Blood Pressure 79/63 L 95/69 L Pulse Oximetry 97 Oxygen Delivery Oxygen Flow Rate 07/14/24 22:00 07/14/24 22:08 07/14/24 23:20 Temperature Pulse Rate 111 H 119 H 106 H Respiratory Rate Blood Pressure 95/69 L Pulse Oximetry Oxygen Delivery Oxygen Flow Rate 07/14/24 23:22 07/14/24 23:37 07/14/24 23:41 Temperature 36.4 C L Pulse Rate 106 H 117 H 104 H Respiratory Rate 20 Blood Pressure 101/79 101/79 Pulse Oximetry 96 Oxygen Delivery Oxygen Flow Rate 07/14/24 23:54 07/15/24 00:00 07/15/24 00:00 Temperature 36.5 C Pulse Rate 94 86 86 Respiratory Rate 20 Blood Pressure 97/81 L Pulse Oximetry 98 Oxygen Delivery Oxygen Flow Rate 07/15/24 00:00 07/15/24 00:00 07/15/24 00:00 Temperature 36.5 C Pulse Rate 86 105 H Respiratory Rate 20 Blood Pressure 97/81 L Pulse Oximetry 98 98 Oxygen Delivery Nasal Cannula Oxygen Flow Rate 2 07/15/24 00:20 07/15/24 00:30 07/15/24 00:47 Temperature 36.4 C L 36.3 C L Pulse Rate 94 100 105 H Respiratory Rate 20 24 H 26 H Blood Pressure 95/81 L 89/55 L 90/71 L Pulse Oximetry 98 96 97 Oxygen Delivery Oxygen Flow Rate 07/15/24 01:26 07/15/24 01:30 07/15/24 02:00 Temperature 36.3 C L Pulse Rate 99 110 H 94 Respiratory Rate 20 Blood Pressure 94/69 L 95/78 L Pulse Oximetry 98 Oxygen Delivery Oxygen Flow Rate 07/15/24 02:00 07/15/24 02:00 07/15/24 02:00 Temperature Pulse Rate 94 94 94 Respiratory Rate 20 Blood Pressure 95/76 L 95/76 L Pulse Oximetry 97 Oxygen Delivery Oxygen Flow Rate 07/15/24 04:00 07/15/24 04:00 07/15/24 04:00 Temperature Pulse Rate 122 H 122 H Respiratory Rate Blood Pressure Pulse Oximetry 99 Oxygen Delivery Nasal Cannula Oxygen Flow Rate 2 07/15/24 04:00 07/15/24 04:00 07/15/24 05:20 Temperature 36.5 C Pulse Rate 115 H 122 H 110 H Respiratory Rate 24 H Blood Pressure 95/71 L Pulse Oximetry 99 Oxygen Delivery Oxygen Flow Rate 07/15/24 05:20 07/15/24 06:00 07/15/24 06:00 Temperature Pulse Rate 110 H 120 H 120 H Respiratory Rate 18 Blood Pressure 94/70 L 97/81 L Pulse Oximetry 99 Oxygen Delivery Oxygen Flow Rate 07/15/24 06:00 07/15/24 08:00 07/15/24 08:00 Temperature Pulse Rate 120 H 109 H Respiratory Rate Blood Pressure 106/79 Pulse Oximetry 99 Oxygen Delivery Nasal Cannula Oxygen Flow Rate 2 07/15/24 08:00 07/15/24 08:00 07/15/24 10:00 Temperature 36.8 C Pulse Rate 112 H 109 H 105 H Respiratory Rate 20 Blood Pressure 106/79 Pulse Oximetry 99 Oxygen Delivery Oxygen Flow Rate 07/15/24 10:00 07/15/24 10:00 Temperature Pulse Rate 105 H 105 H Respiratory Rate 30 H Blood Pressure 98/68 L 98/68 L Pulse Oximetry 97 Oxygen Delivery Oxygen Flow Rate Exam Const: General: comfortable, no acute distress, alert and awake Orientation/consciousness: patient oriented x3 HENMT: Head: normal to inspection Eyes: General: appearance normal, both eyes and all related structures Pupils: Equal, round and reactive pupils present Neck: Neck: normal visual inspection, supple and no JVD Carotids: normal carotid upstroke Resp: Effort & Inspection: normal respiratory effort Auscultation: clear to auscultation bilaterally Cardio: Rate: regular rate Rhythm: abnormal rhythm irregularly irregular Heart sounds: S1 normal heart sound present, S2 normal heart sound present and no murmurs GI: Auscultation: normal bowel sounds Skin: General skin exam: normal color Neuro: General: patient oriented x3 Cranial nerves: Yes Equal, round and reactive pupils present Extrem: Other: Trace bilateral lower extremity edema Psych: Appearance: grossly normal Mental Status: mental status grossly normal Results Labs and Meds 07/15/24 05:36 07/15/24 05:36 Lab results: Cardiac Enzymes 07/14/24 Range/Units 11:26 AST 31 (14-36) U/L Coagulation 07/14/24 07/15/24 Range/Units 20:56 05:36 PT > 120.0 H 23.9 H D (11.1-14.7) Seconds CBC 07/14/24 07/15/24 Range/Units 11:26 05:36 WBC 15.7 H 20.2 H (4.5-10.0) K/mm3 RBC 2.86 L 2.34 L (4.2-5.4) M/mm3 Hgb 8.8 L 7.2 L (12.0-15.0) g/dL Hct 28.3 L 23.2 L (37.0-47.0) % Plt Count 345 276 (150-375) k/mm3 Lymph # (Auto) 0.20 L 0.89 L (0.9-3.2) K/mm3 [place] # (Auto) 0.1 0.6 (0.1-0.6) K/mm3 Eos # (Auto) 0.1 0.2 (0-0.3) K/mm3 Baso # (Auto) 0.1 0.1 (0.0-0.1) K/mm3 Comprehensive Metabolic Panel 07/14/24 07/15/24 Range/Units 11:26 05:36 Sodium 128 L 129 L (137-145) mmol/L Potassium 3.3 L 3.3 L (3.4-5.0) mmol/L Chloride 93 L 97 L (98-107) mmol/L Carbon Dioxide 29 26 (22-30) mmol/L BUN 29 H 28 H (7-17) mg/dL Creatinine 7.80 H 7.80 H (0.7-1.0) mg/dL Glucose 129 H 96 (65-110) mg/dL Calcium 8.0 L 7.1 L (8.4-10.2) mg/dL AST 31 (14-36) U/L ALT 24 (6-35) U/L Alkaline Phosphatase 52 (38-126) U/L Total Protein 7.0 (6.3-8.2) g/dL Albumin 3.1 L (3.5-5.1) g/dL Intake and Output 07/14/24 07/15/24 07/15/24 23:59 07:59 15:59 Intake Total 383.4 897.6 253.4 Output Total 0 Balance 383.4 897.6 253.4 Intake: IV 383.4 234.6 133.4 Amiodarone 150 mg/D5w 100 ml 100 150 mg In 100 ml @ 600 mls/hr IV CONT .Q10M [facility] Rx#:[id number] Amiodarone 360 mg/D5w 200 ml 200.0 222.2 133.4 360 mg In 200 ml @ 1 MG/MIN 33. 333 mls/hr IV CONT .Q6H [facility] Rx# :[id number] Phenylephrine HCl Inj 50 mg In 33.4 12.4 Dextrose 5% in Water 250 ml In 245 ml @ 0 MCG/MIN IV CONT .Q0M [facility] Rx#:[id number] Cefepime 1 gm/Ns 50 ml 1 gm In 50 50 ml @ 100 mls/hr IVPB ONCE STA Rx#:[id number] Intake (Blood Product) Amt 0 563 Frozen Plasma Unit 340 [id number] Frozen Plasma Bag 2 Unit 0 223 [id number] Oral 100 120 Output: Urine 0 Patient Weight 07/15/24 23:59 Weight 94 kg
[2024-07-15] MEDS: PANTOPRAZOLE SODIUM IV 40 MG VIAL IV PUSH ×2 (11:00→20:17)
[2024-07-15] MEDS: CENTRAL LINE FLUSH 10 ML IV PUSH ×2 (14:12→20:17)
[2024-07-15] MEDS: METOPROLOL TARTRATE 25 MG TABLET PO (15:42)
[2024-07-15] MEDS: CEFEPIME 1 GM/NS 50 ML 1 GM/50 ML BAG IVPB (15:43)
[2024-07-15] MEDS: ACETAMINOPHEN 325 MG TABLET 650 MG PO (15:51)
[2024-07-15 16:32] LABS: Vancomycin Random 21.4 ug/mL (10-20)
[2024-07-15] MEDS: METOPROLOL TARTRATE 50 MG TAB PO (21:04)
--- NOTE | 2024-07-15 21:12 | PC.NURSE ---
Pt states that shortly after she started dialysis, she developed increased SOB. Staff repositioned pt. O2 @ 3L. Discussed with Dr. Dorsey. HR maintainting upper 120s-130. New order for one time dose of PO Metoprolol received. Discussed with dialysis nurse, Edgar. States if pt becomes too SOB, treatment may have to be discontinued.
[2024-07-16] VITALS (24 sets, daily range): BP systolic 82–127; BP diastolic 47–99; PULSE 85–134; RESP 20–28; TEMP 36.5–37.2; O2SAT 96–100
[2024-07-16] MEDS: METOPROLOL TARTRATE 25 MG TABLET PO (04:44)
[2024-07-16] MEDS: LEVOTHYROXINE SODIUM 25 MCG TABLET PO (04:44)
[2024-07-16] MEDS: CENTRAL LINE FLUSH 10 ML IV PUSH ×3 (04:45→19:50)
[2024-07-16] MEDS: AMIODARONE 360 MG/D5W 200 ML 360 MG/200 ML BAG 33.33 MG IV CONT ×3 (04:45→17:01)
[2024-07-16 05:02] LABS: Basophils Absolute Auto 0.1 K/mm3 (0.0-0.1); Basophils Percent Auto 0.2 % (0.2-1.2); Eosinophils Absolute Auto 0.1 K/mm3 (0-0.3); Eosinophils Percent Auto 0.4 % (0-4.4); Hematocrit 26.1 % (37.0-47.0); Hemoglobin 8.4 g/dL (12.0-15.0); Immature Granulocyte Absolute 0.46 K/mm3 (0.00-0.031); Immature Granulocyte Percent A 2.3 % (0-0.5); Lymphocytes Absolute Auto 0.63 K/mm3 (0.9-3.2); Lymphocytes Percent Auto 3.1 % (18.3-44.2); Mean Corpuscular HGB Conc 32.2 g/dl (32-36); Mean Corpuscular Hemoglobin 30.8 pg (26-34); Mean Corpuscular Volume 95.6 fl (80-100); Mean Platelet Volume 9.5 fl (7.4-10.4); Monocytes Absolute Auto 0.5 K/mm3 (0.1-0.6); Monocytes Percent Auto 2.2 % (2.6-8.5); Neutrophils Absolute Auto 18.6 K/mm3 (1.3-6.7); Neutrophils Percent Auto 91.8 % (45.5-73.1); Platelet Count Result 350 k/mm3 (150-375); Red Blood Count 2.73 M/mm3 (4.2-5.4); Red Cell Distribution Width 14.3 % (11.5-14.5); White Blood Count 20.2 K/mm3 (4.5-10.0)
[2024-07-16 05:13] LABS: Alanine Aminotransferase 50 U/L (6-35); Albumin Level 3.1 g/dL (3.5-5.1); Alkaline Phosphatase 75 U/L (38-126); Anion Gap 11 mmol/L (4-12); Aspartate Amino Transferase 85 U/L (14-36); Bilirubin,Total 0.6 mg/dL (0.2-1.3); Blood Urea Nitrogen 31 mg/dL (7-17); Calcium 8.3 mg/dL (8.4-10.2); Carbon Dioxide 22 mmol/L (22-30); Chloride 96 mmol/L (98-107); Estimated CRCL calculation 7 ml/min; Estimated Glomerular Filt Rate 6; Glucose 185 mg/dL (65-110); Phosphorus 4.6 mg/dL (2.5-4.5); Potassium 4.1 mmol/L (3.4-5.0); Sodium 129 mmol/L (137-145)
[2024-07-16 05:19] LABS: INR 1.8
[2024-07-16 05:20] LABS: Partial Thromboplastin Time 55.6 Seconds (22.3-36.8)
[2024-07-16 08:00] LABS: Reflex Lactic Acid Yes or No Add Lactic
[2024-07-16] MEDS: calcitrioL 0.25 MCG CAPSULE PO (09:23)
[2024-07-16] MEDS: METOPROLOL TARTRATE 50 MG TAB 100 MG PO ×2 (09:24→19:48)
[2024-07-16] MEDS: PANTOPRAZOLE SODIUM IV 40 MG VIAL IV PUSH ×2 (09:24→19:49)
[2024-07-16] MEDS: ACETAMINOPHEN 325 MG TABLET 650 MG PO (09:24)
--- NOTE | 2024-07-16 09:33 | P.PNNP_ITS ---
Progress Note: A&P Assessment and Plan (1) End stage renal disease: Code(s): N18.6 - End stage renal disease Status: Chronic Assessment and Plan: * continue CCPD tonight * no evidence of peritonitis by PD fluid analysis done in ER * follow electrolytes, volume status, and clearance * adjust PD prescription as needed (2) Septic shock: Code(s): A41.9 - Sepsis, unspecified organism; R65.21 - Severe sepsis with septic shock Status: Acute Assessment and Plan: * as noted by presentation with fever, chills, and hypotension along with Afib with RVR * s/p 3L fluid resuscitation but remained hypotension * hypotension worsened by use of IV metoprolol (given in an attempt to control Afib with RVR) * central line placed and started on vasopressors for persistent low BP * has since been weaned off phenylephrine * culture data noted: * blood culture with E. coli * urine culture with no growth (but urine culture from 07/05 with E. coli as well) * follow trend of hemodynamics * on antibiotics (3) Bacteremia: Code(s): R78.81 - Bacteremia Status: Acute Assessment and Plan: * presumed source for #2 * blood culture with E.coli * suspected urinary source (see urine culture from 07/05) * on antibiotics * see #2 (4) UTI (urinary tract infection): Code(s): N39.0 - Urinary tract infection, site not specified Status: Acute Assessment and Plan: * admission UA highly suggestive * diagnosed with UTI ~ 10 days ago prior to recent ER visit * urine culture at that time grew E. coli * repeat urine culture (this admission) negative to date * already on antibiotics (5) Atrial fibrillation with rapid ventricular response: Code(s): I48.91 - Unspecified atrial fibrillation Status: Acute Assessment and Plan: * noted on presentation to ER * known history * attempts at rate control in ER with IV metoprolol failed (and resulted in worsening hypotension) * failed attempted cardioversion in ER as well * initiated on amiodarone gtt * continue rate control strategy * on heparin gtt for anticoagulation * Cardiology following (6) Cardiomyopathy: Code(s): I42.9 - Cardiomyopathy, unspecified Status: Acute Assessment and Plan: * known history: * last echo from July 2021 with an EF of 20-25% * repeat Echo noted (07/15/24): * left ventricular systolic function estimated at 20-25%. * grade III diastolic dysfunction * moderate to severe tricuspid valve regurgitation. * mild pulmonary hypertension, estimated pulmonary arterial systolic pressure is 53 mmHg. * moderate to severe eccentric mitral valve regurgitation * appears relatively compensated at this time * Cardiology following (7) Anemia: Code(s): D64.9 - Anemia, unspecified Status: Chronic Assessment and Plan: * due to ESRD and acute illness * complicated by supratherapetic INR on presentation * this was corrected with FFP and Vitamin K * PRBC transfusion per protocol * Retacrit while hospitalized * follow trend of H/H (8) Hypertension: Code(s): I10 - Essential (primary) hypertension Status: Chronic Assessment and Plan: * presented with hypotension and hemodynamic instability * weaned off vasopressor therapy * BP medications on hold due to soft BPs at this time * follow trend of hemodynamics Will continue to follow. L Subjective Date/time seen: 07/16/24 09:33 Interval history: Follow-up for end stage renal disease on peritoneal dialysis. Tolerated peritoneal dialysis treatment overnight (CCPD supervised and seen at 9:20AM); no acute complaints voiced at the time of my visit; stable hemodynamics noted and remains off vasopressor therapy; still in Afib with RVR but heart rate better controlled; no other issues/events overnight or earlier this morning. Exam 2 Narrative: General: WD/WN female in NAD Heart: IRRR and tachycardic; normal S1 and S2; no rub Lungs: clear anteriorly but decreased at bases Abdomen: soft, nontender, nondistended, positive bowel sounds Extremities: no cyanosis or clubbing; traceedema Skin: warm and dry Objective Data Vital Signs Vital Signs: Vital Signs Temp Pulse Resp BP Pulse Ox O2 Del Method O2 Flow Rate 07/16/24 09:24 125 H 07/16/24 08:00 112 H 07/16/24 08:00 119 H 125/92 H 07/16/24 08:00 97 Nasal Cannula 2 07/16/24 08:00 99.0 F 122 H 27 H 125/92 H 97 07/16/24 06:00 112 H 26 H 117/76 96 07/16/24 06:00 112 H 07/16/24 06:00 112 H 117/76 07/16/24 04:45 123 H 122/84 07/16/24 04:45 123 H 01/01/25 04:44 134 H 07/16/24 04:00 98.8 F 133 H 25 H 122/84 100 07/16/24 04:00 129 H 07/16/24 04:00 96 Nasal Cannula 3 07/16/24 02:00 121 H 28 H 121/97 H 96 07/16/24 02:00 121 H 07/16/24 02:00 121 H 07/16/24 00:00 111 H 07/16/24 00:00 97.8 F 112 H 28 H 123/83 99 07/16/24 00:00 99 Nasal Cannula 3 07/16/24 00:00 112 H 07/15/24 22:59 104 H 107/78 07/15/24 22:59 104 H 107/78 07/15/24 22:00 110 H 27 H 107/78 98 07/15/24 22:00 110 H 07/15/24 22:00 110 H 07/15/24 21:04 135 H 07/15/24 20:00 114 H 07/15/24 20:00 93 Nasal Cannula 2 07/15/24 20:00 118 H 07/15/24 20:00 98.3 F 129 H 25 H 122/91 H 93 07/15/24 19:52 3 07/15/24 18:00 111 H 111/78 07/15/24 18:00 111 H 26 H 111/78 92 07/15/24 18:00 111 H 07/15/24 17:05 114 H 98/53 L Intake/Output Intake/Output: Intake & Output 07/13/24 07/14/24 07/15/24 07/16/24 23:59 23:59 23:59 23:59 Intake Total 3483.4 2080.6 552.8 Output Total 100 596 Balance 3483.4 1980.6 -43.2 Meds/Results Medications: Active Medications Generic Name Dose Route Start Last Admin Trade Name Freq PRN Reason Stop Dose Admin Acetaminophen 650 mg 07/14/24 15:53 07/16/24 09:24 Acetaminophen 325 Mg Tablet PO 650 mg Q4H PRN Administration Mild Pain (1-3) or Fever Calcitriol 0.25 mcg 07/15/24 09:00 07/16/24 09:23 Calcitriol 0.25 Mcg Capsule PO 0.25 mcg DAILY [facility]LLEN Administration Epoetin Ab-epbx 10,000 units 07/17/24 09:00 Epoetin Ab-Epbx 10,000 Units/Ml Vial SUB-Q TUTHSA@09 KELLEN Gentamicin Sulfate 1 applic 07/15/24 21:00 07/15/24 20:17 Gentamicin Sulfate 0.1% Cr 15 Gm Tube TOPICAL 1 applic QHS KELLEN Administration Heparin Sodium (Porcine) 5,000 units 07/16/24 10:31 Heparin Sodium 5,000 Units/Ml Vial IV PUSH PRN PRN aPTT less than 55 seconds Heparin Sodium (Porcine) 2,500 units 07/16/24 10:31 Heparin Sodium 5,000 Units/Ml Vial IV PUSH PRN PRN aPTT 55 - 70 seconds Cefepime HCl 1 gm in 50 mls @ 100 mls/hr 07/15/24 16:00 07/16/24 15:43 Maxipime 1 Gm/Ns 50 Ml IVPB 100 mls/hr Q24H [facility]LLEN Administration Phenylephrine HCl 50 mg/ 250 ml in 250 mls @ 0 mls/hr 07/14/24 17:35 07/15/24 04:00 Dextrose IV CONT 0 mcg/min .Q0M KELLEN 0 mls/hr Infusion 0 MCG/MIN Amiodarone HCl/Dextrose 360 mg in 200 mls @ 33.333 mls/hr 07/14/24 22:10 07/16/24 14:00 Nexterone 360 Mg/D5w 200 Ml IV CONT 1 mg/min .Q6H KELLEN 33.33 mls/hr Infusion 1 MG/MIN Heparin Sodium/Dextrose 25,000 units in 250 mls @ 12 mls/hr 07/16/24 10:35 07/16/24 12:05 Heparin Sodium/D5w 100 Units/Ml IV CONT 1,200 units/hr .[id number] KELLEN 12 mls/hr Administration Protocol 1,200 UNITS/HR Levothyroxine Sodium 25 mcg 07/15/24 06:30 07/16/24 04:44 Levothyroxine Sodium 25 Mcg Tablet PO 25 mcg DAILY@0630 [facility] Administration Metoprolol Tartrate 100 mg 07/16/24 09:20 07/16/24 09:24 Metoprolol Tartrate 50 Mg Tab PO 100 mg Q12HR [facility] Administration Ondansetron HCl 4 mg 07/14/24 15:53 Ondansetron Inj 4 Mg/2 Ml Vial IV PUSH Q4H PRN Nausea Pantoprazole Sodium 40 mg 07/15/24 21:00 07/16/24 09:24 Pantoprazole Sodium Iv 40 Mg Vial IV PUSH 40 mg Q12HR [facility] Administration Perflutren Lipid Microsphere 0 ml 07/15/24 08:03 Perflutren Lipid Microspheres 1.5 Ml Vial Diluted To 10 Ml Total Volume IV PUSH 07/18/24 08:03 ONCE PRN adequate visualization Protocol Sodium Chloride 10 ml 07/15/24 14:00 07/16/24 13:18 Central Line Flush IV PUSH 10 ml Q8HR [facility] Administration Sodium Chloride 20 ml 07/15/24 12:03 Central Line Flush IV PUSH PRN PRN after blood draws Vancomycin HCl 1 each 07/15/24 17:04 Vancomycin For Peritoneal Dialysis IVPB PRN PRN Vancomycin Protocol Radiology Results: ITS Impressions Chest/Abdomen/Pelvis CT 07/14/24 14:45 IMPRESSION: 1. 8 cm complex cystic lesion within the spleen which could represent a hematoma, abscess or less likely neoplasm. 2. Tiny left pleural effusion with likely combination of atelectasis and mild pulmonary edema in the dependent lungs. 3. Moderate cardiomegaly with enlargement of the central pulmonary arteries consistent with pulmonary arterial hypertension. 4. Moderate bilateral renal atrophy with bilateral nephrolithiasis including a 9 mm stone at the right ureteropelvic junction without hydronephrosis which could reflect poor renal function. 5. Small to moderate amount of ascites likely related to peritoneal dialysis with dialysis catheter in the pelvis. 6. Extensive diverticulosis. Labs Labs: Laboratory Tests 07/16/24 04:56 07/16/24 04:56 Lactic Acid 3.0 H Calcium 8.3 L Phosphorus 4.6 H Magnesium 2.0 Total Bilirubin 0.6 AST 85 H ALT 50 H Alkaline Phosphatase 75 Total Protein 7.0 Albumin 3.1 L TSH 6.100 H Microbiology 07/14/24 11:26 Blood Blood Culture - Preliminary Escherichia Coli 07/14/24 12:01 Blood Blood Culture - Final Unidentified organism#1 Escherichia Coli Proprionibacterium acnes 07/14/24 13:35 Urine Clean Catch Urine Culture - Final
[2024-07-16 11:55] LABS: Basophils Absolute Auto 0.1 K/mm3 (0.0-0.1); Basophils Percent Auto 0.3 % (0.2-1.2); Eosinophils Absolute Auto 0.1 K/mm3 (0-0.3); Eosinophils Percent Auto 0.4 % (0-4.4); Hematocrit 24.2 % (37.0-47.0); Immature Granulocyte Absolute 0.48 K/mm3 (0.00-0.031); Immature Granulocyte Percent A 2.7 % (0-0.5); Lymphocytes Absolute Auto 0.61 K/mm3 (0.9-3.2); Lymphocytes Percent Auto 3.4 % (18.3-44.2); Mean Corpuscular HGB Conc 33.1 g/dl (32-36); Mean Corpuscular Volume 93.8 fl (80-100); Mean Platelet Volume 9.4 fl (7.4-10.4); Monocytes Absolute Auto 0.6 K/mm3 (0.1-0.6); Monocytes Percent Auto 3.5 % (2.6-8.5); Neutrophils Percent Auto 89.7 % (45.5-73.1); Platelet Count Result 323 k/mm3 (150-375); Red Blood Count 2.58 M/mm3 (4.2-5.4); Red Cell Distribution Width 14.3 % (11.5-14.5); White Blood Count 17.8 K/mm3 (4.5-10.0)
[2024-07-16] MEDS: HEPARIN SOD/D5W 100 UNITS/ML 25,000 UNITS/250 ML BAG 12 UNITS IV CONT (12:05)
[2024-07-16] MEDS: EPOETIN ALFA-EPBX 20,000 UNITS/ML VIAL 20000 UNITS SUB-Q (12:05)
[2024-07-16 12:08] LABS: INR 1.8; Prothrombin Time 21.6 Seconds (11.1-14.7)
[2024-07-16 12:10] LABS: Partial Thromboplastin Time 69.6 Seconds (22.3-36.8)
[2024-07-16 12:15] LABS: Anisocytosis 1+; Platelet Estimate Adequate (Adequate); Polychromasia 1+; Schistocytes None Seen; Target Cells 1+
--- NOTE | 2024-07-16 14:41 | P.PNINT_ITS ---
Progress Note: A&P Assessment and Plan (1) Septic shock: Code(s): A41.9 - Sepsis, unspecified organism; R65.21 - Severe sepsis with septic shock Status: Acute Assessment and Plan: 07/14/2024: Patient presented with fevers, chills, hypotension. -Patient was in the ER on 07/05 and was diagnosed with UTI and sent home on Bactrim only to return on 07/14 with hypotension, fever with chills, AFib RVR -was given 3 L IV fluid bolus, -patient was in AFib, hypotension, was given metoprolol which further caused more hypotension, patient was cardioverted, given IV fluids despite which she remained hypotensive -central line was inserted in the ICU by ER physician -started on phenylephrine to maintain MAP > 65 mmHg for adequate end organ perfusion -currently off phenylephrine -07/14: Blood cultures growing E coli and proprionibacterium acnes, awaiting sensitivity -07/14: Urine culture obtained and pending -continue cefepime and vancomycin (07/14), (2) Bacteremia: Code(s): R78.81 - Bacteremia Status: Acute Assessment and Plan: E coli bacteremia, continue antibiotics as above (3) UTI (urinary tract infection): Code(s): N39.0 - Urinary tract infection, site not specified Status: Acute Assessment and Plan: UA was reflective of UTI, patient also presented on 07/05/2024 and was diagnosed with UTI and gentleman back -cultures negative -continue antibiotics as above (4) Atrial fibrillation with rapid ventricular response: Code(s): I48.91 - Unspecified atrial fibrillation Status: Acute Assessment and Plan: Patient has a history of AFib, on Coumadin at home -presented on 07/14/2024 with AFib RVR, was given metoprolol which further dropped her blood pressures, patient has synchronous cardioversion, which was unsuccessful. Was given amiodarone bolus in the ER and transferred to the ICU -The ICU patient was in AFib RVR and hypotensive, patient was given the bolus of amiodarone in the ICU and started on amiodarone infusion -patient remains on amiodarone heart rate 90s to 110s, will continue amiodarone -cardiology has been consulted from the ER -started on home was metoprolol, continue to monitor -started on heparin infusion as patient is high risk for stroke due to AFib (5) Supratherapeutic INR: Code(s): R79.1 - Abnormal coagulation profile Status: Acute Assessment and Plan: Patient was on Bactrim for UTI which probably caused her PT/INR to be elevated -INR in the ICU was > 20 and PT was > 120 -patient was treated with 2 units of FFP and vitamin K on 07/15 -INR this morning is 2.1 -hold Coumadin and anticoagulation as patient dropped her hemoglobin to 7.2 (8.8 on admission) -baseline hemoglobin as 9.8-10.4 -started patient on Protonix IV q.12 hours (6) Cardiomyopathy: Code(s): I42.9 - Cardiomyopathy, unspecified Status: Acute Assessment and Plan: Echocardiogram from July 2021 showed an EF of 20-25% -patient does not have any other echocardiograms in the system -discussed with Cardiology, continue current management given patient was on vasopressors, will have limited ability to treat her with GDMT due to end-stage renal disease on peritoneal dialysis 07/15/2024: Echocardiogram Summary 1. Complete two-dimensional, color flow and Doppler transthoracic echocardiogram is performed. 2. Left ventricular chamber dimension is enlarged. 3. There is mildly increased left ventricular wall thickness. 4. Left ventricular systolic function is severely reduced, estimated at 20-25%. 5. Left ventricular wall motion shows global hypokinesis, with ant segment akinesis. 6. The left ventricular diastolic function is grade III diastolic dysfunction. 7. Right ventricular systolic function is reduced. 8. Left atrial chamber dimension is enlarged. 9. Right atrial chamber dimension is enlarged. 10. There is moderate to severe tricuspid valve regurgitation. 11. Mild pulmonary hypertension, estimated pulmonary arterial systolic pressure is 53 mmHg. 12. There is moderate to severe eccentric mitral valve regurgitation. 13. There is no aortic valve stenosis. 14. Dilated inferior vena cava with <50% collapse upon inspiration consistent with elevated right atrial pressure, 15 mmHg. (7) Hypertension: Code(s): I10 - Essential (primary) hypertension Status: Chronic Assessment and Plan: History of hypertension, this patient presented with septic shock, was a showed phenylephrine which is currently off -blood pressures are borderline likely related to infection and sepsis -will hold all antihypertensives for now (8) Hypothyroidism: Code(s): E03.9 - Hypothyroidism, unspecified Status: Acute Assessment and Plan: Continue levothyroxine (9) End-stage renal disease on peritoneal dialysis: Code(s): N18.6 - End stage renal disease; Z99.2 - Dependence on renal dialysis Status: Acute Assessment and Plan: Patient with end-stage renal disease on peritoneal dialysis -nephrology has been consulted, and peritoneal dialysis will be scheduled for nephrology -potassium and magnesium within normal limits after replacement Plan DVT prophylaxis: started on heparin infusion Stress ulcer prophylaxis: Protonix IV q.12 hours Nutrition: Renal dialysis diet Code Status: Full code Critical Care Time Spent: 34 minute Discussed with patient updated with her condition and plan of care. I answered all her questions Due to a high probability of clinically significant, life threatening deterioration, the patient required my highest level of preparedness to intervene emergently and I personally spent this critical care time directly and personally managing the patient. This critical care time included obtaining a history; examining the patient; pulse oximetry; ordering and review of studies; arranging urgent treatment with development of a management plan; evaluation of patient's response to treatment; frequent reassessment; and discussions with other providers. It was exclusive of separately billable procedures and treating other patients and teaching time. Please see Assessment and Plan section and the rest of the note for further information on patient assessment and treatment This dictation may have been done utilizing a voice recognition system. Attempts have been made to correct errors. However, there may be uncorrected grammatical, spelling, and recognitions errors present. Subjective Date/time seen: 07/16/24 14:41 Interval history: Reason for consult: UTI, septic shock, AFib RVR, hypotension Patient seen and examined the ICU this morning, is awake, alert, oriented, denies any shortness of breath, chest pain, abdominal pain, nausea vomiting. States his appetite is decreased. She did get peritoneal dialysis overnight. Patient is afebrile, hemodynamically stable, heart rate better controlled. On 2 L nasal cannula with adequate O2 sats. Review of Systems Review of Systems: All systems reviewed & are unremarkable except as noted in HPI and below Exam Narrative: General: Very pleasant female in no acute distress HEENT:? Pupils are equal and reactive, sclerae is clear, moist oral mucosa Neck:? Supple Respiratory:? Clear to auscultation bilaterally, decreased air entry at bases, no wheezing, adequate air entry Cardiac:? irregularly irregular, tachycardic Abdomen:? Soft, nontender, nondistended, obese, PD catheter in place Extremities:, no edema, palpable pedal pulses Neuro:? Patient is awake, alert, oriented, nonfocal, answers to questions appropriately and follows simple commands in all extremities Skin:? Warm and dry Psych:? Normal mentation and affect Objective Data Vital Signs Vital Signs: Vital Signs - 24 hr 07/15/24 15:42 07/15/24 16:00 07/15/24 16:00 Temperature Pulse Rate 122 H 120 H Respiratory Rate Blood Pressure 129/96 H Pulse Oximetry 99 Oxygen Delivery Nasal Cannula Oxygen Flow Rate 2 07/15/24 16:00 07/15/24 16:00 07/15/24 16:59 Temperature 98.7 F Pulse Rate 123 H 129 H 114 H Respiratory Rate 24 H Blood Pressure 129/96 H 98/53 L Pulse Oximetry 95 Oxygen Delivery Oxygen Flow Rate 07/15/24 17:05 07/15/24 18:00 07/15/24 18:00 Temperature Pulse Rate 114 H 111 H 111 H Respiratory Rate 26 H Blood Pressure 98/53 L 111/78 Pulse Oximetry 92 Oxygen Delivery Oxygen Flow Rate 07/15/24 18:00 07/15/24 19:52 07/15/24 20:00 Temperature 98.3 F Pulse Rate 111 H 129 H Respiratory Rate 25 H Blood Pressure 111/78 122/91 H Pulse Oximetry 93 Oxygen Delivery Oxygen Flow Rate 3 07/15/24 20:00 07/15/24 20:00 07/15/24 20:00 Temperature Pulse Rate 118 H 114 H Respiratory Rate Blood Pressure Pulse Oximetry 93 Oxygen Delivery Nasal Cannula Oxygen Flow Rate 2 07/15/24 21:04 07/15/24 22:00 07/15/24 22:00 Temperature Pulse Rate 135 H 110 H 110 H Respiratory Rate Blood Pressure Pulse Oximetry Oxygen Delivery Oxygen Flow Rate 07/15/24 22:00 07/15/24 22:59 07/15/24 22:59 Temperature Pulse Rate 110 H 104 H 104 H Respiratory Rate 27 H Blood Pressure 107/78 107/78 107/78 Pulse Oximetry 98 Oxygen Delivery Oxygen Flow Rate 07/16/24 00:00 07/16/24 00:00 07/16/24 00:00 Temperature 97.8 F Pulse Rate 112 H 112 H Respiratory Rate 28 H Blood Pressure 123/83 Pulse Oximetry 99 99 Oxygen Delivery Nasal Cannula Oxygen Flow Rate 3 07/16/24 00:00 07/16/24 02:00 07/16/24 02:00 Temperature Pulse Rate 111 H 121 H 121 H Respiratory Rate Blood Pressure Pulse Oximetry Oxygen Delivery Oxygen Flow Rate 07/16/24 02:00 07/16/24 04:00 07/16/24 04:00 Temperature Pulse Rate 121 H 129 H Respiratory Rate 28 H Blood Pressure 121/97 H Pulse Oximetry 96 96 Oxygen Delivery Nasal Cannula Oxygen Flow Rate 3 07/16/24 04:00 07/16/24 04:44 07/16/24 04:45 Temperature 98.8 F Pulse Rate 133 H 134 H 123 H Respiratory Rate 25 H Blood Pressure 122/84 Pulse Oximetry 100 Oxygen Delivery Oxygen Flow Rate 07/16/24 04:45 07/16/24 06:00 07/16/24 06:00 Temperature Pulse Rate 123 H 112 H 112 H Respiratory Rate Blood Pressure 122/84 117/76 Pulse Oximetry Oxygen Delivery Oxygen Flow Rate 07/16/24 06:00 07/16/24 08:00 07/16/24 08:00 Temperature 99.0 F Pulse Rate 112 H 122 H Respiratory Rate 26 H 27 H Blood Pressure 117/76 125/92 H Pulse Oximetry 96 97 97 Oxygen Delivery Nasal Cannula Oxygen Flow Rate 2 07/16/24 09:24 07/16/24 10:00 07/16/24 10:05 Temperature 99 F Pulse Rate 125 H 124 H 122 H Respiratory Rate 25 H 22 H Blood Pressure 120/99 H 112/91 H Pulse Oximetry 98 Oxygen Delivery Oxygen Flow Rate 3 07/16/24 10:45 07/16/24 12:00 07/16/24 12:00 Temperature 98.0 F Pulse Rate 85 108 H Respiratory Rate 25 H Blood Pressure 98/47 L 102/76 Pulse Oximetry 98 97 Oxygen Delivery Nasal Cannula Oxygen Flow Rate 2 07/16/24 12:11 Temperature Pulse Rate 85 Respiratory Rate Blood Pressure 98/47 L Pulse Oximetry Oxygen Delivery Oxygen Flow Rate Intake/Output Intake/Output: Intake & Output 07/13/24 07/14/24 07/15/24 07/16/24 23:59 23:59 23:59 23:59 Intake Total 3483.4 2080.6 492.3 Output Total 100 596 Balance 3483.4 1980.6 -103.7 Meds/Results Medications: Active Medications Generic Name Dose Route Start Last Admin Trade Name Freq PRN Reason Stop Dose Admin Acetaminophen 650 mg 07/14/24 15:53 07/16/24 09:24 Acetaminophen 325 Mg Tablet PO 650 mg Q4H PRN Administration Mild Pain (1-3) or Fever Calcitriol 0.25 mcg 07/15/24 09:00 07/16/24 09:23 Calcitriol 0.25 Mcg Capsule PO 0.25 mcg DAILY KELLEN Administration Epoetin Ab-epbx 10,000 units 07/17/24 09:00 Epoetin Ab-Epbx 10,000 Units/Ml Vial SUB-Q TUTHSA@09 KELLEN Gentamicin Sulfate 1 applic 07/15/24 21:00 07/15/24 20:17 Gentamicin Sulfate 0.1% Cr 15 Gm Tube TOPICAL 1 applic QHS KELLEN Administration Heparin Sodium (Porcine) 5,000 units 07/16/24 10:31 Heparin Sodium 5,000 Units/Ml Vial IV PUSH PRN PRN aPTT less than 55 seconds Heparin Sodium (Porcine) 2,500 units 07/16/24 10:31 Heparin Sodium 5,000 Units/Ml Vial IV PUSH PRN PRN aPTT 55 - 70 seconds Cefepime HCl 1 gm in 50 mls @ 100 mls/hr 07/15/24 16:00 07/15/24 16:14 Maxipime 1 Gm/Ns 50 Ml IVPB Infused Q24H KELLEN Infusion Phenylephrine HCl 50 mg/ 250 ml in 250 mls @ 0 mls/hr 07/14/24 17:35 07/15/24 04:00 Dextrose IV CONT 0 mcg/min .Q0M KELLEN 0 mls/hr Infusion 0 MCG/MIN Amiodarone HCl/Dextrose 360 mg in 200 mls @ 33.333 mls/hr 07/14/24 22:10 07/16/24 12:11 Nexterone 360 Mg/D5w 200 Ml IV CONT 1 mg/min .Q6H KELLEN 33.33 mls/hr Administration 1 MG/MIN Heparin Sodium/Dextrose 25,000 units in 250 mls @ 12 mls/hr 07/16/24 10:35 07/16/24 12:05 Heparin Sodium/D5w 100 Units/Ml IV CONT 1,200 units/hr .[id number] KELLEN 12 mls/hr Administration Protocol 1,200 UNITS/HR Levothyroxine Sodium 25 mcg 07/15/24 06:30 07/16/24 04:44 Levothyroxine Sodium 25 Mcg Tablet PO 25 mcg DAILY@0630 KELLEN Administration Metoprolol Tartrate 100 mg 07/16/24 09:20 07/16/24 09:24 Metoprolol Tartrate 50 Mg Tab PO 100 mg Q12HR KELLEN Administration Ondansetron HCl 4 mg 07/14/24 15:53 Ondansetron Inj 4 Mg/2 Ml Vial IV PUSH Q4H PRN Nausea Pantoprazole Sodium 40 mg 07/15/24 21:00 07/16/24 09:24 Pantoprazole Sodium Iv 40 Mg Vial IV PUSH 40 mg Q12HR KELLEN Administration Perflutren Lipid Microsphere 0 ml 07/15/24 08:03 Perflutren Lipid Microspheres 1.5 Ml Vial Diluted To 10 Ml Total Volume IV PUSH 07/18/24 08:03 ONCE PRN adequate visualization Protocol Sodium Chloride 10 ml 07/15/24 14:00 07/16/24 13:18 Central Line Flush IV PUSH 10 ml Q8HR KELLEN Administration Sodium Chloride 20 ml 07/15/24 12:03 Central Line Flush IV PUSH PRN PRN after blood draws Vancomycin HCl 1 each 07/15/24 17:04 Vancomycin For Peritoneal Dialysis IVPB PRN PRN Vancomycin Protocol Radiology Results: ITS Impressions Chest/Abdomen/Pelvis CT 07/14/24 14:45 IMPRESSION: 1. 8 cm complex cystic lesion within the spleen which could represent a hematoma, abscess or less likely neoplasm. 2. Tiny left pleural effusion with likely combination of atelectasis and mild pulmonary edema in the dependent lungs. 3. Moderate cardiomegaly with enlargement of the central pulmonary arteries consistent with pulmonary arterial hypertension. 4. Moderate bilateral renal atrophy with bilateral nephrolithiasis including a 9 mm stone at the right ureteropelvic junction without hydronephrosis which could reflect poor renal function. 5. Small to moderate amount of ascites likely related to peritoneal dialysis with dialysis catheter in the pelvis. 6. Extensive diverticulosis. Chest X-Ray 07/16/24 14:14 IMPRESSION: Subsegmental right midlung and bibasilar airspace disease, may represent atelectasis or consolidation. Possible small bilateral pleural effusions. Labs Labs: Laboratory Results - last 24 hr 07/15/24 07/16/24 07/16/24 15:47 04:56 11:50 WBC 20.2 H 17.8 H RBC 2.73 L 2.58 L Hgb 8.4 L 8.0 L Hct 26.1 L 24.2 L MCV 95.6 93.8 MCH 30.8 31.0 MCHC 32.2 33.1 RDW 14.3 14.3 Plt Count 350 323 MPV 9.5 9.4 Immature Gran % (Auto) 2.3 H 2.7 H Neut % (Auto) 91.8 H 89.7 H Lymph % (Auto) 3.1 L 3.4 L Stanley % (Auto) 2.2 L 3.5 Eos % (Auto) 0.4 0.4 Baso % (Auto) 0.2 0.3 Lymph # (Auto) 0.63 L 0.61 L Stanley # (Auto) 0.5 0.6 Eos # (Auto) 0.1 0.1 Baso # (Auto) 0.1 0.1 Abs Immat Gran (auto) 0.46 H 0.48 H Absolute Neuts (auto) 18.6 H 16.0 H Absolute Nucleated RBC 0.000 0.000 Nucleated RBC % 0.0 0.0 Platelet Estimate Adequate Polychromasia 1+ Anisocytosis 1+ Target Cells 1+ Schistocytes None seen PT 21.0 H 21.6 H INR 1.8 1.8 APTT 55.6 H 69.6 H Sodium 129 L Potassium 4.1 Chloride 96 L Carbon Dioxide 22 Anion Gap 11 BUN 31 H Creatinine 8.00 H Estim Creat Clear Calc 7 Estimated GFR 6 L Glucose 185 H Lactic Acid 3.0 H 2.0 Calcium 8.3 L Phosphorus 4.6 H Magnesium 2.0 Total Bilirubin 0.6 AST 85 H ALT 50 H Alkaline Phosphatase 75 Total Protein 7.0 Albumin 3.1 L TSH 6.100 H Random Vancomycin 21.4 H Quality VTE Prophylaxis VTE prophylaxis: mechanical ordered
--- NOTE | 2024-07-16 15:42 | PM.PNCARD ---
Progress Note: A&P Assessment and Plan (1) Atrial fibrillation with rapid ventricular response: Code(s): I48.91 - Unspecified atrial fibrillation Status: Acute Assessment and Plan: - On amiodarone , will add low dose BB today - Continue AC with warfarin - Not a good long-term candidate for amiodarone. (2) CHF (congestive heart failure): Qualifiers: Heart failure chronicity: acute Heart failure type: unspecified Qualified Code(s): I50.9 - Heart failure, unspecified Code(s): I50.9 - Heart failure, unspecified Status: Acute Assessment and Plan: She appears compensated at this time. (3) Hypotension: Code(s): I95.9 - Hypotension, unspecified Status: Acute Assessment and Plan: Secondary to UTI, sepsis. Blood pressure is stable. (4) Cardiomyopathy: Code(s): I42.9 - Cardiomyopathy, unspecified Status: Acute Assessment and Plan: EF 20-25% in 2021. Limited options for GDMT as she has ESRD/soft BP. Subjective Date/time seen: 07/16/24 15:42 Interval history: NO acute events overnight Was dialyzed Remains in RVR, rates better controlled Review of Systems Review of Systems: All systems reviewed & are unremarkable except as noted in HPI and below Exam Const: General: comfortable, no acute distress, alert and awake Orientation/consciousness: patient oriented x3 HENMT: Head: normal to inspection Eyes: General: appearance normal, both eyes and all related structures Pupils: Equal, round and reactive pupils present Neck: Neck: normal visual inspection, supple and no JVD Carotids: normal carotid upstroke Resp: Effort & Inspection: normal respiratory effort Auscultation: clear to auscultation bilaterally Cardio: Rate: regular rate Rhythm: abnormal rhythm irregularly irregular Heart sounds: S1 normal heart sound present, S2 normal heart sound present and no murmurs GI: Auscultation: normal bowel sounds Skin: General skin exam: normal color Neuro: General: patient oriented x3 Cranial nerves: Yes Equal, round and reactive pupils present Extrem: Other: Trace bilateral lower extremity edema Psych: Appearance: grossly normal Mental Status: mental status grossly normal Objective Data Vital Signs Vital Signs: Vital Signs - 24 hr 07/15/24 16:00 07/15/24 16:00 07/15/24 16:00 Temperature Pulse Rate 120 H 123 H Respiratory Rate Blood Pressure 129/96 H Pulse Oximetry 99 Oxygen Delivery Nasal Cannula Oxygen Flow Rate 2 07/15/24 16:00 07/15/24 16:59 07/15/24 17:05 Temperature 37.1 C Pulse Rate 129 H 114 H 114 H Respiratory Rate 24 H Blood Pressure 129/96 H 98/53 L 98/53 L Pulse Oximetry 95 Oxygen Delivery Oxygen Flow Rate 07/15/24 18:00 07/15/24 18:00 07/15/24 18:00 Temperature Pulse Rate 111 H 111 H 111 H Respiratory Rate 26 H Blood Pressure 111/78 111/78 Pulse Oximetry 92 Oxygen Delivery Oxygen Flow Rate 07/15/24 19:52 07/15/24 20:00 07/15/24 20:00 Temperature 36.8 C Pulse Rate 129 H 118 H Respiratory Rate 25 H Blood Pressure 122/91 H Pulse Oximetry 93 Oxygen Delivery Oxygen Flow Rate 3 07/15/24 20:00 07/15/24 20:00 07/15/24 21:04 Temperature Pulse Rate 114 H 135 H Respiratory Rate Blood Pressure Pulse Oximetry 93 Oxygen Delivery Nasal Cannula Oxygen Flow Rate 2 07/15/24 22:00 07/15/24 22:00 07/15/24 22:00 Temperature Pulse Rate 110 H 110 H 110 H Respiratory Rate 27 H Blood Pressure 107/78 Pulse Oximetry 98 Oxygen Delivery Oxygen Flow Rate 07/15/24 22:59 07/15/24 22:59 07/16/24 00:00 Temperature Pulse Rate 104 H 104 H 112 H Respiratory Rate Blood Pressure 107/78 107/78 Pulse Oximetry Oxygen Delivery Oxygen Flow Rate 07/16/24 00:00 07/16/24 00:00 07/16/24 00:00 Temperature 36.6 C Pulse Rate 112 H 111 H Respiratory Rate 28 H Blood Pressure 123/83 Pulse Oximetry 99 99 Oxygen Delivery Nasal Cannula Oxygen Flow Rate 3 07/16/24 02:00 07/16/24 02:00 07/16/24 02:00 Temperature Pulse Rate 121 H 121 H 121 H Respiratory Rate 28 H Blood Pressure 121/97 H Pulse Oximetry 96 Oxygen Delivery Oxygen Flow Rate 07/16/24 04:00 07/16/24 04:00 07/16/24 04:00 Temperature 37.1 C Pulse Rate 129 H 133 H Respiratory Rate 25 H Blood Pressure 122/84 Pulse Oximetry 96 100 Oxygen Delivery Nasal Cannula Oxygen Flow Rate 3 07/16/24 04:44 07/16/24 04:45 07/16/24 04:45 Temperature Pulse Rate 134 H 123 H 123 H Respiratory Rate Blood Pressure 122/84 Pulse Oximetry Oxygen Delivery Oxygen Flow Rate 07/16/24 06:00 07/16/24 06:00 07/16/24 06:00 Temperature Pulse Rate 112 H 112 H 112 H Respiratory Rate 26 H Blood Pressure 117/76 117/76 Pulse Oximetry 96 Oxygen Delivery Oxygen Flow Rate 07/16/24 08:00 07/16/24 08:00 07/16/24 08:00 Temperature 37.2 C Pulse Rate 122 H 119 H Respiratory Rate 27 H Blood Pressure 125/92 H 125/92 H Pulse Oximetry 97 97 Oxygen Delivery Nasal Cannula Oxygen Flow Rate 2 07/16/24 08:00 07/16/24 09:24 07/16/24 10:00 Temperature Pulse Rate 112 H 125 H 124 H Respiratory Rate 25 H Blood Pressure 120/99 H Pulse Oximetry 98 Oxygen Delivery Oxygen Flow Rate 07/16/24 10:00 07/16/24 10:00 07/16/24 10:05 Temperature 37.2 C Pulse Rate 120 H 120 H 122 H Respiratory Rate 22 H Blood Pressure 120/99 H 112/91 H Pulse Oximetry Oxygen Delivery Oxygen Flow Rate 3 07/16/24 10:45 07/16/24 12:00 07/16/24 12:00 Temperature 36.7 C Pulse Rate 85 108 H Respiratory Rate 25 H Blood Pressure 98/47 L 102/76 Pulse Oximetry 98 97 Oxygen Delivery Nasal Cannula Oxygen Flow Rate 2 07/16/24 12:00 07/16/24 12:11 07/16/24 14:00 Temperature Pulse Rate 113 H 85 105 H Respiratory Rate Blood Pressure 98/47 L 96/84 L Pulse Oximetry Oxygen Delivery Oxygen Flow Rate 07/16/24 14:00 07/16/24 14:00 Temperature Pulse Rate 105 H 105 H Respiratory Rate 26 H Blood Pressure 96/84 L Pulse Oximetry 100 Oxygen Delivery Oxygen Flow Rate Intake/Output Intake/Output: Intake & Output 07/13/24 07/14/24 07/15/24 07/16/24 23:59 23:59 23:59 23:59 Intake Total 3483.4 2080.6 552.8 Output Total 100 596 Balance 3483.4 1980.6 -43.2 Meds/Results Medications: Active Medications Generic Name Dose Route Start Last Admin Trade Name Freq PRN Reason Stop Dose Admin Acetaminophen 650 mg 07/14/24 15:53 07/16/24 09:24 Acetaminophen 325 Mg Tablet PO 650 mg Q4H PRN Administration Mild Pain (1-3) or Fever Calcitriol 0.25 mcg 07/15/24 09:00 07/16/24 09:23 Calcitriol 0.25 Mcg Capsule PO 0.25 mcg DAILY KELLEN Administration Epoetin Ab-epbx 10,000 units 07/17/24 09:00 Epoetin Ab-Epbx 10,000 Units/Ml Vial SUB-Q TUTHSA@09 KELLEN Gentamicin Sulfate 1 applic 07/15/24 21:00 07/15/24 20:17 Gentamicin Sulfate 0.1% Cr 15 Gm Tube TOPICAL 1 applic QHS KELLEN Administration Heparin Sodium (Porcine) 5,000 units 07/16/24 10:31 Heparin Sodium 5,000 Units/Ml Vial IV PUSH PRN PRN aPTT less than 55 seconds Heparin Sodium (Porcine) 2,500 units 07/16/24 10:31 Heparin Sodium 5,000 Units/Ml Vial IV PUSH PRN PRN aPTT 55 - 70 seconds Cefepime HCl 1 gm in 50 mls @ 100 mls/hr 07/15/24 16:00 07/15/24 16:14 Maxipime 1 Gm/Ns 50 Ml IVPB Infused Q24H KELLEN Infusion Phenylephrine HCl 50 mg/ 250 ml in 250 mls @ 0 mls/hr 07/14/24 17:35 07/15/24 04:00 Dextrose IV CONT 0 mcg/min .Q0M KELLEN 0 mls/hr Infusion 0 MCG/MIN Amiodarone HCl/Dextrose 360 mg in 200 mls @ 33.333 mls/hr 07/14/24 22:10 07/16/24 14:00 Nexterone 360 Mg/D5w 200 Ml IV CONT 1 mg/min .Q6H KELLEN 33.33 mls/hr Infusion 1 MG/MIN Heparin Sodium/Dextrose 25,000 units in 250 mls @ 12 mls/hr 07/16/24 10:35 07/16/24 12:05 Heparin Sodium/D5w 100 Units/Ml IV CONT 1,200 units/hr .[id number] KELLEN 12 mls/hr Administration Protocol 1,200 UNITS/HR Levothyroxine Sodium 25 mcg 07/15/24 06:30 07/16/24 04:44 Levothyroxine Sodium 25 Mcg Tablet PO 25 mcg DAILY@0630 KELLEN Administration Metoprolol Tartrate 100 mg 07/16/24 09:20 07/16/24 09:24 Metoprolol Tartrate 50 Mg Tab PO 100 mg Q12HR KELLEN Administration Ondansetron HCl 4 mg 07/14/24 15:53 Ondansetron Inj 4 Mg/2 Ml Vial IV PUSH Q4H PRN Nausea Pantoprazole Sodium 40 mg 07/15/24 21:00 07/16/24 09:24 Pantoprazole Sodium Iv 40 Mg Vial IV PUSH 40 mg Q12HR KELLEN Administration Perflutren Lipid Microsphere 0 ml 07/15/24 08:03 Perflutren Lipid Microspheres 1.5 Ml Vial Diluted To 10 Ml Total Volume IV PUSH 07/18/24 08:03 ONCE PRN adequate visualization Protocol Sodium Chloride 10 ml 07/15/24 14:00 07/16/24 13:18 Central Line Flush IV PUSH 10 ml Q8HR KELLEN Administration Sodium Chloride 20 ml 07/15/24 12:03 Central Line Flush IV PUSH PRN PRN after blood draws Vancomycin HCl 1 each 07/15/24 17:04 Vancomycin For Peritoneal Dialysis IVPB PRN PRN Vancomycin Protocol Radiology Results: ITS Impressions Chest/Abdomen/Pelvis CT 07/14/24 14:45 IMPRESSION: 1. 8 cm complex cystic lesion within the spleen which could represent a hematoma, abscess or less likely neoplasm. 2. Tiny left pleural effusion with likely combination of atelectasis and mild pulmonary edema in the dependent lungs. 3. Moderate cardiomegaly with enlargement of the central pulmonary arteries consistent with pulmonary arterial hypertension. 4. Moderate bilateral renal atrophy with bilateral nephrolithiasis including a 9 mm stone at the right ureteropelvic junction without hydronephrosis which could reflect poor renal function. 5. Small to moderate amount of ascites likely related to peritoneal dialysis with dialysis catheter in the pelvis. 6. Extensive diverticulosis. Chest X-Ray 07/16/24 14:14 IMPRESSION: Subsegmental right midlung and bibasilar airspace disease, may represent atelectasis or consolidation. Possible small bilateral pleural effusions. Labs Labs: Laboratory Results - last 24 hr 07/15/24 07/16/24 07/16/24 15:47 04:56 11:50 WBC 20.2 H 17.8 H RBC 2.73 L 2.58 L Hgb 8.4 L 8.0 L Hct 26.1 L 24.2 L MCV 95.6 93.8 MCH 30.8 31.0 MCHC 32.2 33.1 RDW 14.3 14.3 Plt Count 350 323 MPV 9.5 9.4 Immature Gran % (Auto) 2.3 H 2.7 H Neut % (Auto) 91.8 H 89.7 H Lymph % (Auto) 3.1 L 3.4 L [place] % (Auto) 2.2 L 3.5 Eos % (Auto) 0.4 0.4 Baso % (Auto) 0.2 0.3 Lymph # (Auto) 0.63 L 0.61 L [place] # (Auto) 0.5 0.6 Eos # (Auto) 0.1 0.1 Baso # (Auto) 0.1 0.1 Abs Immat Gran (auto) 0.46 H 0.48 H Absolute Neuts (auto) 18.6 H 16.0 H Absolute Nucleated RBC 0.000 0.000 Nucleated RBC % 0.0 0.0 Platelet Estimate Adequate Polychromasia 1+ Anisocytosis 1+ Target Cells 1+ Schistocytes None seen PT 21.0 H 21.6 H INR 1.8 1.8 APTT 55.6 H 69.6 H Sodium 129 L Potassium 4.1 Chloride 96 L Carbon Dioxide 22 Anion Gap 11 BUN 31 H Creatinine 8.00 H Estim Creat Clear Calc 7 Estimated GFR 6 L Glucose 185 H Lactic Acid 3.0 H 2.0 Calcium 8.3 L Phosphorus 4.6 H Magnesium 2.0 Total Bilirubin 0.6 AST 85 H ALT 50 H Alkaline Phosphatase 75 Total Protein 7.0 Albumin 3.1 L TSH 6.100 H Random Vancomycin 21.4 H
[2024-07-16] MEDS: CEFEPIME 1 GM/NS 50 ML 1 GM/50 ML BAG IVPB (15:43)
[2024-07-16 17:58] LABS: Vancomycin Random 20.1 ug/mL (10-20)
[2024-07-16] MEDS: GENTAMICIN SULFATE 0.1% CR 15 GM TUBE 1 APPLIC TOPICAL (18:30)
[2024-07-16 19:12] LABS: Partial Thromboplastin Time > 200.0 Seconds (22.3-36.8)
[2024-07-17] VITALS (22 sets, daily range): BP systolic 100–131; BP diastolic 72–97; PULSE 101–129; RESP 19–34; TEMP 36.4–36.9; O2SAT 95–100
[2024-07-17 03:59] LABS: Hematocrit 22.1 % (37.0-47.0); Hemoglobin 7.6 g/dL (12.0-15.0); Mean Corpuscular HGB Conc 34.4 g/dl (32-36); Mean Corpuscular Hemoglobin 31.5 pg (26-34); Mean Corpuscular Volume 91.7 fl (80-100); Mean Platelet Volume 9.9 fl (7.4-10.4); Platelet Count Result 329 k/mm3 (150-375); Red Blood Count 2.41 M/mm3 (4.2-5.4); Red Cell Distribution Width 14.3 % (11.5-14.5)
[2024-07-17 04:12] LABS: Alanine Aminotransferase 53 U/L (6-35); Albumin Level 2.9 g/dL (3.5-5.1); Alkaline Phosphatase 73 U/L (38-126); Anion Gap 13 mmol/L (4-12); Aspartate Amino Transferase 44 U/L (14-36); Bilirubin,Total 0.7 mg/dL (0.2-1.3); Blood Urea Nitrogen 32 mg/dL (7-17); Calcium 8.5 mg/dL (8.4-10.2); Carbon Dioxide 25 mmol/L (22-30); Chloride 93 mmol/L (98-107); Estimated CRCL calculation 7 ml/min; Estimated Glomerular Filt Rate 7; Glucose 151 mg/dL (65-110); Phosphorus 4.4 mg/dL (2.5-4.5); Potassium 3.1 mmol/L (3.4-5.0); Sodium 131 mmol/L (137-145)
[2024-07-17 04:13] LABS: Lactic Acid Reflex 1.7 mmol/L (0.7-2.0)
[2024-07-17] MEDS: AMIODARONE 360 MG/D5W 200 ML 360 MG/200 ML BAG 33.33 MG IV CONT ×2 (05:00→10:15)
[2024-07-17 05:10] LABS: Partial Thromboplastin Time > 200.0 Seconds (22.3-36.8)
[2024-07-17 05:16] LABS: Band Neutrophils Percent 4 % (0-6); Lymphocytes Absolute Manual 0.68 K/mm3 (1.1-4.5); Monocytes Absolute Manual 0.34 K/mm3 (0.1-0.90); Monocytes Percent Manual 2 % (3-9); Neutrophils Absolute Manual 15.98 K/mm3 (1.7-7.2); Neutrophils Percent Manual 90 % (46-73); Platelet Estimate Adequate (Adequate); Total Cells Counted 100
[2024-07-17 05:17] LABS: Anisocytosis 1+; Burr Cells 1+; Schistocytes Rare; Target Cells 1+
[2024-07-17 05:31] LABS: Hepatitis B Surface Antigen Negative (Negative)
[2024-07-17 05:50] LABS: Hepatitis B Surface Anti Res Positive
[2024-07-17] MEDS: calcitrioL 0.25 MCG CAPSULE PO (08:11)
[2024-07-17] MEDS: PANTOPRAZOLE SODIUM IV 40 MG VIAL IV PUSH ×2 (08:11→21:00)
[2024-07-17] MEDS: METOPROLOL TARTRATE 50 MG TAB 100 MG PO ×2 (08:11→21:00)
[2024-07-17] MEDS: LEVOTHYROXINE SODIUM 25 MCG TABLET PO (08:13)
[2024-07-17] MEDS: EPOETIN ALFA-EPBX 10,000 UNITS/ML VIAL 10000 UNITS SUB-Q (08:14)
[2024-07-17] MEDS: CENTRAL LINE FLUSH 10 ML IV PUSH ×3 (08:16→21:14)
[2024-07-17] MEDS: POTASSIUM CHLORIDE 20 MEQ ER TABLET 40 MEQ PO (08:17)
--- NOTE | 2024-07-17 12:11 | P.PNNP_ITS ---
Progress Note: A&P Assessment and Plan (1) End stage renal disease: Code(s): N18.6 - End stage renal disease Status: Chronic Assessment and Plan: * continue nightly CCPD * no evidence of peritonitis by PD fluid analysis done in ER * follow electrolytes, volume status, and clearance * adjust PD prescription as needed (2) Septic shock: Code(s): A41.9 - Sepsis, unspecified organism; R65.21 - Severe sepsis with septic shock Status: Acute Assessment and Plan: * as noted by presentation with fever, chills, and hypotension along with Afib with RVR * s/p 3L fluid resuscitation but remained hypotension * hypotension worsened by use of IV metoprolol in ER (given in an attempt to control Afib with RVR) * central line placed and started on vasopressors for persistent low BP * has since been weaned off phenylephrine * culture data noted: * blood culture with E. coli and Proprionibacterium acnes * urine culture with no growth (but urine culture from 07/05 with E. coli as well) * follow trend of hemodynamics * on antibiotics (3) Bacteremia: Code(s): R78.81 - Bacteremia Status: Acute Assessment and Plan: * presumed source for sepsis/septic shock * blood culture with E.coli and Proprionibacterium acnes * suspected urinary source (see urine culture from 07/05) * on antibiotics * see #2 (4) UTI (urinary tract infection): Code(s): N39.0 - Urinary tract infection, site not specified Status: Acute Assessment and Plan: * admission UA highly suggestive * diagnosed with UTI ~ 10 days ago prior admission by recent ER visit * urine culture at that time grew E. coli * repeat urine culture (this admission) negative to date * already on antibiotics (5) Atrial fibrillation with rapid ventricular response: Code(s): I48.91 - Unspecified atrial fibrillation Status: Acute Assessment and Plan: * noted on presentation to ER * known history * attempts at rate control in ER with IV metoprolol failed (and resulted in worsening hypotension) * failed attempted cardioversion in ER as well * on amiodarone gtt * continue rate control strategy * on heparin gtt for anticoagulation * Cardiology following (6) Cardiomyopathy: Code(s): I42.9 - Cardiomyopathy, unspecified Status: Acute Assessment and Plan: * known history: * last echo from July 2021 with an EF of 20-25% * repeat Echo noted (07/15/24): * left ventricular systolic function estimated at 20-25%. * grade III diastolic dysfunction * moderate to severe tricuspid valve regurgitation. * mild pulmonary hypertension, estimated pulmonary arterial systolic pressure is 53 mmHg. * moderate to severe eccentric mitral valve regurgitation * appears relatively compensated at this time * Cardiology following (7) Anemia: Code(s): D64.9 - Anemia, unspecified Status: Chronic Assessment and Plan: * due to ESRD and acute illness * complicated by supratherapetic INR on presentation * this was corrected with FFP and Vitamin K * anemia studies with adequate iron, B12, and folate * PRBC transfusion per protocol * Retacrit while hospitalized * follow trend of H/H (8) Hypertension: Code(s): I10 - Essential (primary) hypertension Status: Chronic Assessment and Plan: * presented with hypotension and hemodynamic instability * weaned off vasopressor therapy * BP medications on hold due to soft BPs at this time * follow trend of hemodynamics Will continue to follow. L Subjective Date/time seen: 07/17/24 12:11 Interval history: Follow-up for end stage renal disease on peritoneal dialysis. No apparent distress noted at the time of my visit; tolerated peritoneal dialysis treatment last night without any issues or problems; stable hemodynamics noted without need for vasopressor therapy; heart rate with better control as noted; remains on amiodarone and heparin gtts; stable oxygenation on 2L oxygen by nasal cannula. Exam 2 Narrative: General: WD/WN female in NAD Heart: IRRR and tachycardic; normal S1 and S2; no rub Lungs: clear anteriorly but decreased at bases Abdomen: soft, nontender, nondistended, positive bowel sounds Extremities: no cyanosis or clubbing; traceedema Skin: warm and intact Objective Data Vital Signs Vital Signs: Vital Signs Temp Pulse Resp BP Pulse Ox O2 Del Method O2 Flow Rate 07/17/24 12:00 97.7 F 104 H 24 H 113/79 100 Nasal Cannula 2 07/17/24 10:46 111 H 100/80 07/17/24 10:15 101 H 100/80 07/17/24 10:15 101 H 100/80 07/17/24 10:00 102 H 07/17/24 10:00 103 H 24 H 100/80 100 07/17/24 10:00 110 H 112/82 07/17/24 08:11 108 H 07/17/24 08:00 107 H 07/17/24 08:00 95 Nasal Cannula 2 07/17/24 08:00 115 H 114/93 H 07/17/24 08:00 98.2 F 112 H 22 H 114/93 H 100 07/17/24 07:10 111 H 30 H 103/75 2 07/17/24 06:00 97.6 F 113 H 19 112/97 H 07/17/24 06:00 111 H 07/17/24 05:00 111 H 112/97 H 07/17/24 04:00 106 H 07/17/24 04:00 106 H 21 H 100 Nasal Cannula 2 07/17/24 04:00 107 H 23 H 118/89 100 07/17/24 03:00 119 H 122/91 H 07/17/24 02:00 97.9 F 106 H 21 H 106/86 100 07/17/24 01:15 110 H 07/17/24 01:00 110 H 115/93 H 07/17/24 00:00 110 H 23 H 115/93 H 100 07/17/24 00:00 108 H 07/17/24 00:00 108 H 20 98 Nasal Cannula 2 07/16/24 23:00 101 H 112/86 07/16/24 22:00 108 H 20 127/90 98 07/16/24 21:00 101 H 117/98 H 07/16/24 20:56 104 H 07/16/24 20:00 97.8 F 102 H 20 117/98 H 98 07/16/24 20:00 117 H 07/16/24 20:00 113 H 24 H 97 Nasal Cannula 2 07/16/24 19:48 117 H 07/16/24 19:00 105 H 113/74 07/16/24 18:37 2 07/16/24 18:00 126 H 24 H 113/74 97 07/16/24 18:00 126 H 07/16/24 17:01 106 H 110/79 07/16/24 17:01 106 H 110/79 Intake/Output Intake/Output: Intake & Output 07/14/24 07/15/24 07/16/24 07/17/24 23:59 23:59 23:59 23:59 Intake Total 3483.4 2080.6 1289.0 650.4 Output Total 100 596 827 Balance 3483.4 1980.6 693.0 -176.6 Meds/Results Medications: Active Medications Generic Name Dose Route Start Last Admin Trade Name Freq PRN Reason Stop Dose Admin Acetaminophen 650 mg 07/14/24 15:53 07/16/24 09:24 Acetaminophen 325 Mg Tablet PO 650 mg Q4H PRN Administration Mild Pain (1-3) or Fever Calcitriol 0.25 mcg 07/15/24 09:00 07/17/24 08:11 Calcitriol 0.25 Mcg Capsule PO 0.25 mcg DAILY KELLEN Administration Epoetin Ab-epbx 10,000 units 07/17/24 09:00 07/17/24 08:14 Epoetin Ab-Epbx 10,000 Units/Ml Vial SUB-Q 10,000 units TUTHSA@09 KELLEN Administration Gentamicin Sulfate 1 applic 07/15/24 21:00 07/16/24 18:30 Gentamicin Sulfate 0.1% Cr 15 Gm Tube TOPICAL 1 applic QHS KELLEN Administration Heparin Sodium (Porcine) 5,000 units 07/16/24 10:31 Heparin Sodium 5,000 Units/Ml Vial IV PUSH PRN PRN aPTT less than 55 seconds Heparin Sodium (Porcine) 2,500 units 07/16/24 10:31 Heparin Sodium 5,000 Units/Ml Vial IV PUSH PRN PRN aPTT 55 - 70 seconds Cefepime HCl 1 gm in 50 mls @ 100 mls/hr 07/15/24 16:00 07/16/24 16:10 Maxipime 1 Gm/Ns 50 Ml IVPB Infused Q24H KELLEN Infusion Phenylephrine HCl 50 mg/ 250 ml in 250 mls @ 0 mls/hr 07/14/24 17:35 07/15/24 04:00 Dextrose IV CONT 0 mcg/min .Q0M KELLEN 0 mls/hr Infusion 0 MCG/MIN Amiodarone HCl/Dextrose 360 mg in 200 mls @ 16.667 mls/hr 07/14/24 22:10 07/17/24 14:00 Nexterone 360 Mg/D5w 200 Ml IV CONT 0.5 mg/min .Q12H KELLEN 16.67 mls/hr Infusion 0.5 MG/MIN Heparin Sodium/Dextrose 25,000 units in 250 mls @ 9 mls/hr 07/16/24 10:35 07/17/24 14:48 Heparin Sodium/D5w 100 Units/Ml IV CONT Not Given .Q24H KELLEN Protocol 900 UNITS/HR Levothyroxine Sodium 25 mcg 07/15/24 06:30 07/17/24 08:13 Levothyroxine Sodium 25 Mcg Tablet PO 25 mcg DAILY@0630 KELLEN Administration Metoprolol Tartrate 100 mg 07/16/24 09:20 07/17/24 08:11 Metoprolol Tartrate 50 Mg Tab PO 100 mg Q12HR KELLEN Administration Ondansetron HCl 4 mg 07/14/24 15:53 Ondansetron Inj 4 Mg/2 Ml Vial IV PUSH Q4H PRN Nausea Pantoprazole Sodium 40 mg 07/15/24 21:00 07/17/24 08:11 Pantoprazole Sodium Iv 40 Mg Vial IV PUSH 40 mg Q12HR KELLEN Administration Perflutren Lipid Microsphere 0 ml 07/15/24 08:03 Perflutren Lipid Microspheres 1.5 Ml Vial Diluted To 10 Ml Total Volume IV PUSH 07/18/24 08:03 ONCE PRN adequate visualization Protocol Sodium Chloride 10 ml 07/15/24 14:00 07/17/24 14:09 Central Line Flush IV PUSH 10 ml Q8HR KELLEN Administration Sodium Chloride 20 ml 07/15/24 12:03 Central Line Flush IV PUSH PRN PRN after blood draws Radiology Results: ITS Impressions Chest/Abdomen/Pelvis CT 07/14/24 14:45 IMPRESSION: 1. 8 cm complex cystic lesion within the spleen which could represent a hematoma, abscess or less likely neoplasm. 2. Tiny left pleural effusion with likely combination of atelectasis and mild pulmonary edema in the dependent lungs. 3. Moderate cardiomegaly with enlargement of the central pulmonary arteries consistent with pulmonary arterial hypertension. 4. Moderate bilateral renal atrophy with bilateral nephrolithiasis including a 9 mm stone at the right ureteropelvic junction without hydronephrosis which could reflect poor renal function. 5. Small to moderate amount of ascites likely related to peritoneal dialysis with dialysis catheter in the pelvis. 6. Extensive diverticulosis. Chest X-Ray 07/16/24 14:14 IMPRESSION: Subsegmental right midlung and bibasilar airspace disease, may represent atelectasis or consolidation. Possible small bilateral pleural effusions. Labs Labs: Laboratory Tests 07/17/24 03:40 07/17/24 03:40 Lactic Acid 1.7 Calcium 8.5 Phosphorus 4.4 Magnesium 2.0 Total Bilirubin 0.7 AST 44 H ALT 53 H Alkaline Phosphatase 73 Total Protein 6.0 L Albumin 2.9 L Microbiology 07/14/24 11:26 Blood Blood Culture - Final Escherichia Coli 07/14/24 12:01 Blood Blood Culture - Final Unidentified organism#1 Escherichia Coli Proprionibacterium acnes
--- NOTE | 2024-07-17 12:21 | WPDINTPN ---
Progress Note: A&P Assessment and Plan (1) Septic shock: Code(s): A41.9 - Sepsis, unspecified organism; R65.21 - Severe sepsis with septic shock Status: Acute Assessment and Plan: 07/14/2024: Patient presented with fevers, chills, hypotension. -Patient was in the ER on 07/05 and was diagnosed with UTI and sent home on Bactrim only to return on 07/14 with hypotension, fever with chills, AFib RVR -was given 3 L IV fluid bolus, -patient was in AFib, hypotension, was given metoprolol which further caused more hypotension, patient was cardioverted, given IV fluids despite which she remained hypotensive -central line was inserted in the ICU by ER physician, started on phenylephrine to maintain MAP > 65 mmHg for adequate end organ perfusion -currently off phenylephrine -07/14: Blood cultures growing E coli and propionibacterium acnes, -07/14: Urine culture: No growth -continue cefepime (07/14) -07/17: Discontinue vancomycin, (2) Bacteremia: Code(s): R78.81 - Bacteremia Status: Acute Assessment and Plan: E coli bacteremia, continue antibiotics as above (3) UTI (urinary tract infection): Code(s): N39.0 - Urinary tract infection, site not specified Status: Acute Assessment and Plan: UA was reflective of UTI, patient also presented on 07/05/2024 and was diagnosed with UTI and gentleman back -cultures negative -continue antibiotics as above (4) Atrial fibrillation with rapid ventricular response: Code(s): I48.91 - Unspecified atrial fibrillation Status: Acute Assessment and Plan: Patient has a history of AFib, on Coumadin at home -presented on 07/14/2024 with AFib RVR, was given metoprolol which further dropped her blood pressures, patient has synchronous cardioversion, which was unsuccessful. Was given amiodarone bolus in the ER and transferred to the ICU -The ICU patient was in AFib RVR and hypotensive, patient was given the bolus of amiodarone in the ICU and started on amiodarone infusion -patient remains on amiodarone heart rate 90s to 110s, will continue amiodarone -cardiology has been consulted from the ER -continue home metoprolol metoprolol, -continue heparin infusion, patient was on Coumadin with elevated INR > 20 on admission. (5) Supratherapeutic INR: Code(s): R79.1 - Abnormal coagulation profile Status: Acute Assessment and Plan: Patient was on Bactrim for UTI which probably caused her PT/INR to be elevated -INR in the ICU was > 20 and PT was > 120 -patient was treated with 2 units of FFP and vitamin K on 07/15 -INR this morning is 2.1 -hold Coumadin and anticoagulation as patient dropped her hemoglobin to 7.2 (8.8 on admission) -baseline hemoglobin as 9.8-10.4 -started patient on Protonix IV q.12 hours (6) Cardiomyopathy: Code(s): I42.9 - Cardiomyopathy, unspecified Status: Acute Assessment and Plan: Echocardiogram from July 2021 showed an EF of 20-25% -patient does not have any other echocardiograms in the system -discussed with Cardiology, continue current management given patient was on vasopressors, will have limited ability to treat her with GDMT due to end-stage renal disease on peritoneal dialysis 07/15/2024: Echocardiogram Summary 1. Complete two-dimensional, color flow and Doppler transthoracic echocardiogram is performed. 2. Left ventricular chamber dimension is enlarged. 3. There is mildly increased left ventricular wall thickness. 4. Left ventricular systolic function is severely reduced, estimated at 20-25%. 5. Left ventricular wall motion shows global hypokinesis, with ant segment akinesis. 6. The left ventricular diastolic function is grade III diastolic dysfunction. 7. Right ventricular systolic function is reduced. 8. Left atrial chamber dimension is enlarged. 9. Right atrial chamber dimension is enlarged. 10. There is moderate to severe tricuspid valve regurgitation. 11. Mild pulmonary hypertension, estimated pulmonary arterial systolic pressure is 53 mmHg. 12. There is moderate to severe eccentric mitral valve regurgitation. 13. There is no aortic valve stenosis. 14. Dilated inferior vena cava with <50% collapse upon inspiration consistent with elevated right atrial pressure, 15 mmHg. (7) Hypertension: Code(s): I10 - Essential (primary) hypertension Status: Chronic Assessment and Plan: History of hypertension, this patient presented with septic shock, was a showed phenylephrine which is currently off -blood pressures are borderline likely related to infection and sepsis -will hold all antihypertensives for now (8) Hypothyroidism: Code(s): E03.9 - Hypothyroidism, unspecified Status: Acute Assessment and Plan: Continue levothyroxine (9) End-stage renal disease on peritoneal dialysis: Code(s): N18.6 - End stage renal disease; Z99.2 - Dependence on renal dialysis Status: Acute Assessment and Plan: Patient with end-stage renal disease on peritoneal dialysis -nephrology has been consulted, PD per Nephrology -replace potassium (10) Anemia: Code(s): D64.9 - Anemia, unspecified Status: Chronic Assessment and Plan: Patient dropped hemoglobin on 07/15 as her INR was > 20. Patient had been on Coumadin at home, likely elevation of INR related to Bactrim -AFib RVR, was started on heparin infusion -hemoglobin this morning is 7.6, -no active bleeding noted -check iron panel, folic acid and B12 levels -stool occult blood -transfuse PRBC if the Hb < 7.0 Plan DVT prophylaxis: Continue heparin infusion Stress ulcer prophylaxis: Protonix IV q.12 hours Nutrition: Renal dialysis diet Code Status: Full code Critical Care Time Spent: 32 minute Patient may transfer out of the ICU okay with hospitalist Discussed with patient updated with her condition and plan of care. I answered all her questions Due to a high probability of clinically significant, life threatening deterioration, the patient required my highest level of preparedness to intervene emergently and I personally spent this critical care time directly and personally managing the patient. This critical care time included obtaining a history; examining the patient; pulse oximetry; ordering and review of studies; arranging urgent treatment with development of a management plan; evaluation of patient's response to treatment; frequent reassessment; and discussions with other providers. It was exclusive of separately billable procedures and treating other patients and teaching time. Please see Assessment and Plan section and the rest of the note for further information on patient assessment and treatment This dictation may have been done utilizing a voice recognition system. Attempts have been made to correct errors. However, there may be uncorrected grammatical, spelling, and recognitions errors present. Subjective Date/time seen: 07/17/24 12:21 Interval history: Reason for consult: UTI, septic shock, AFib RVR, hypotension 07/17/2024: Patient seen and examined this morning in the ICU, is awake, alert, pleasant, oriented. Denies any shortness of breath, chest pain abdominal pain, nausea, vomiting. States her appetite is better this morning. She did get her peritoneal dialysis overnight. Currently afebrile, hemodynamically stable, heart rate better controlled. Remains on heparin infusion and amiodarone infusion. On 2 L nasal cannula with good O2 sats Review of Systems Review of Systems: All systems reviewed & are unremarkable except as noted in HPI and below Exam Narrative: General: Very pleasant female in no acute distress HEENT:? Pupils are equal and reactive, sclerae is clear, moist oral mucosa Neck:? Supple Respiratory:? Clear to auscultation bilaterally, decreased air entry at bases, no wheezing, adequate air entry Cardiac:? irregularly irregular, heart rate 90s to 100s Abdomen:? Soft, nontender, nondistended, obese, PD catheter in place Extremities:, no edema, palpable pedal pulses Neuro:? Patient is awake, alert, oriented, nonfocal, answers to questions appropriately and follows simple commands in all extremities Skin:? Warm and dry Psych:? Normal mentation and affect Objective Data Vital Signs Vital Signs: Vital Signs - 24 hr 07/16/24 14:00 07/16/24 14:00 07/16/24 14:00 Temperature Pulse Rate 105 H 105 H 105 H Respiratory Rate 26 H Blood Pressure 96/84 L 96/84 L Pulse Oximetry 100 Oxygen Delivery Oxygen Flow Rate 07/16/24 16:00 07/16/24 16:00 07/16/24 16:00 Temperature 97.7 F Pulse Rate 104 H 104 H 106 H Respiratory Rate 23 H 24 H Blood Pressure 82/65 L Pulse Oximetry 100 100 Oxygen Delivery Nasal Cannula Oxygen Flow Rate 2 07/16/24 17:01 07/16/24 17:01 07/16/24 18:00 Temperature Pulse Rate 106 H 106 H 126 H Respiratory Rate Blood Pressure 110/79 110/79 Pulse Oximetry Oxygen Delivery Oxygen Flow Rate 07/16/24 18:00 07/16/24 18:37 07/16/24 19:00 Temperature Pulse Rate 126 H 105 H Respiratory Rate 24 H Blood Pressure 113/74 113/74 Pulse Oximetry 97 Oxygen Delivery Oxygen Flow Rate 2 07/16/24 19:48 07/16/24 20:00 07/16/24 20:00 Temperature Pulse Rate 117 H 113 H 117 H Respiratory Rate 24 H Blood Pressure Pulse Oximetry 97 Oxygen Delivery Nasal Cannula Oxygen Flow Rate 2 07/16/24 20:00 07/16/24 20:56 07/16/24 21:00 Temperature 97.8 F Pulse Rate 102 H 104 H 101 H Respiratory Rate 20 Blood Pressure 117/98 H 117/98 H Pulse Oximetry 98 Oxygen Delivery Oxygen Flow Rate 07/16/24 22:00 07/16/24 23:00 07/17/24 00:00 Temperature Pulse Rate 108 H 101 H 108 H Respiratory Rate 20 20 Blood Pressure 127/90 112/86 Pulse Oximetry 98 98 Oxygen Delivery Nasal Cannula Oxygen Flow Rate 2 07/17/24 00:00 07/17/24 00:00 07/17/24 01:00 Temperature Pulse Rate 108 H 110 H 110 H Respiratory Rate 23 H Blood Pressure 115/93 H 115/93 H Pulse Oximetry 100 Oxygen Delivery Oxygen Flow Rate 07/17/24 01:15 07/17/24 02:00 07/17/24 03:00 Temperature 97.9 F Pulse Rate 110 H 106 H 119 H Respiratory Rate 21 H Blood Pressure 106/86 122/91 H Pulse Oximetry 100 Oxygen Delivery Oxygen Flow Rate 07/17/24 04:00 07/17/24 04:00 07/17/24 04:00 Temperature Pulse Rate 107 H 106 H 106 H Respiratory Rate 23 H 21 H Blood Pressure 118/89 Pulse Oximetry 100 100 Oxygen Delivery Nasal Cannula Oxygen Flow Rate 2 07/17/24 05:00 07/17/24 06:00 07/17/24 06:00 Temperature 97.6 F Pulse Rate 111 H 111 H 113 H Respiratory Rate 19 Blood Pressure 112/97 H 112/97 H Pulse Oximetry Oxygen Delivery Oxygen Flow Rate 07/17/24 07:10 07/17/24 08:00 07/17/24 08:00 Temperature 98.2 F Pulse Rate 111 H 112 H 115 H Respiratory Rate 30 H 22 H Blood Pressure 103/75 114/93 H 114/93 H Pulse Oximetry 100 Oxygen Delivery Oxygen Flow Rate 2 07/17/24 08:11 07/17/24 10:00 07/17/24 10:00 Temperature Pulse Rate 108 H 110 H 103 H Respiratory Rate 24 H Blood Pressure 112/82 100/80 Pulse Oximetry 100 Oxygen Delivery Oxygen Flow Rate 07/17/24 10:15 07/17/24 10:15 07/17/24 10:46 Temperature Pulse Rate 101 H 101 H 111 H Respiratory Rate Blood Pressure 100/80 100/80 100/80 Pulse Oximetry Oxygen Delivery Oxygen Flow Rate 07/17/24 12:00 Temperature 97.7 F Pulse Rate 104 H Respiratory Rate 24 H Blood Pressure 113/79 Pulse Oximetry 100 Oxygen Delivery Oxygen Flow Rate Intake/Output Intake/Output: Intake & Output 07/14/24 07/15/24 07/16/24 07/17/24 23:59 23:59 23:59 23:59 Intake Total 3483.4 2080.6 1289.0 568.2 Output Total 100 596 827 Balance 3483.4 1980.6 693.0 -258.8 Meds/Results Medications: Active Medications Generic Name Dose Route Start Last Admin Trade Name Freq PRN Reason Stop Dose Admin Acetaminophen 650 mg 07/14/24 15:53 07/16/24 09:24 Acetaminophen 325 Mg Tablet PO 650 mg Q4H PRN Administration Mild Pain (1-3) or Fever Calcitriol 0.25 mcg 07/15/24 09:00 07/17/24 08:11 Calcitriol 0.25 Mcg Capsule PO 0.25 mcg DAILY KELLEN Administration Epoetin Ab-epbx 10,000 units 07/17/24 09:00 07/17/24 08:14 Epoetin Ab-Epbx 10,000 Units/Ml Vial SUB-Q 10,000 units TUTHSA@09 KELLEN Administration Gentamicin Sulfate 1 applic 07/15/24 21:00 07/16/24 18:30 Gentamicin Sulfate 0.1% Cr 15 Gm Tube TOPICAL 1 applic QHS KELLEN Administration Heparin Sodium (Porcine) 5,000 units 07/16/24 10:31 Heparin Sodium 5,000 Units/Ml Vial IV PUSH PRN PRN aPTT less than 55 seconds Heparin Sodium (Porcine) 2,500 units 07/16/24 10:31 Heparin Sodium 5,000 Units/Ml Vial IV PUSH PRN PRN aPTT 55 - 70 seconds Cefepime HCl 1 gm in 50 mls @ 100 mls/hr 07/15/24 16:00 07/16/24 16:10 Maxipime 1 Gm/Ns 50 Ml IVPB Infused Q24H KELLEN Infusion Phenylephrine HCl 50 mg/ 250 ml in 250 mls @ 0 mls/hr 07/14/24 17:35 07/15/24 04:00 Dextrose IV CONT 0 mcg/min .Q0M KELLEN 0 mls/hr Infusion 0 MCG/MIN Amiodarone HCl/Dextrose 360 mg in 200 mls @ 16.667 mls/hr 07/14/24 22:10 07/17/24 10:46 Nexterone 360 Mg/D5w 200 Ml IV CONT 0.5 mg/min .Q12H KELLEN 16.67 mls/hr Infusion 0.5 MG/MIN Heparin Sodium/Dextrose 25,000 units in 250 mls @ 10 mls/hr 07/16/24 10:35 07/17/24 10:00 Heparin Sodium/D5w 100 Units/Ml IV CONT 1,000 units/hr .Q24H KELLEN 10 mls/hr Titration Protocol 1,000 UNITS/HR Levothyroxine Sodium 25 mcg 07/15/24 06:30 07/17/24 08:13 Levothyroxine Sodium 25 Mcg Tablet PO 25 mcg DAILY@0630 KELLEN Administration Metoprolol Tartrate 100 mg 07/16/24 09:20 07/17/24 08:11 Metoprolol Tartrate 50 Mg Tab PO 100 mg Q12HR KELLEN Administration Ondansetron HCl 4 mg 07/14/24 15:53 Ondansetron Inj 4 Mg/2 Ml Vial IV PUSH Q4H PRN Nausea Pantoprazole Sodium 40 mg 07/15/24 21:00 07/17/24 08:11 Pantoprazole Sodium Iv 40 Mg Vial IV PUSH 40 mg Q12HR KELLEN Administration Perflutren Lipid Microsphere 0 ml 07/15/24 08:03 Perflutren Lipid Microspheres 1.5 Ml Vial Diluted To 10 Ml Total Volume IV PUSH 07/18/24 08:03 ONCE PRN adequate visualization Protocol Sodium Chloride 10 ml 07/15/24 14:00 07/17/24 08:16 Central Line Flush IV PUSH 10 ml Q8HR KELLEN Administration Sodium Chloride 20 ml 07/15/24 12:03 Central Line Flush IV PUSH PRN PRN after blood draws Radiology Results: ITS Impressions Chest/Abdomen/Pelvis CT 07/14/24 14:45 IMPRESSION: 1. 8 cm complex cystic lesion within the spleen which could represent a hematoma, abscess or less likely neoplasm. 2. Tiny left pleural effusion with likely combination of atelectasis and mild pulmonary edema in the dependent lungs. 3. Moderate cardiomegaly with enlargement of the central pulmonary arteries consistent with pulmonary arterial hypertension. 4. Moderate bilateral renal atrophy with bilateral nephrolithiasis including a 9 mm stone at the right ureteropelvic junction without hydronephrosis which could reflect poor renal function. 5. Small to moderate amount of ascites likely related to peritoneal dialysis with dialysis catheter in the pelvis. 6. Extensive diverticulosis. Chest X-Ray 07/16/24 14:14 IMPRESSION: Subsegmental right midlung and bibasilar airspace disease, may represent atelectasis or consolidation. Possible small bilateral pleural effusions. Labs Labs: Laboratory Results - last 24 hr 07/16/24 07/16/24 07/17/24 15:42 18:10 03:39 WBC RBC Hgb Hct MCV MCH MCHC RDW Plt Count MPV Immature Gran % (Auto) Neut % (Auto) Lymph % (Auto) [place] % (Auto) Eos % (Auto) Baso % (Auto) Lymph # (Auto) [place] # (Auto) Eos # (Auto) Baso # (Auto) Abs Immat Gran (auto) Absolute Neuts (auto) Absolute Nucleated RBC Total Counted Neutrophils % (Manual) Band Neutrophils % Lymphocytes % (Manual) Monocytes % (Manual) Nucleated RBC % Abs Neuts (Manual) Abs Lymphs (Manual) Abs Monocytes (Manual) Platelet Estimate Anisocytosis Target Cells Joelle Cells Schistocytes APTT > 200.0 H* > 200.0 H* Sodium Potassium Chloride Carbon Dioxide Anion Gap BUN Creatinine Estim Creat Clear Calc Estimated GFR Glucose Lactic Acid Calcium Phosphorus Magnesium Total Bilirubin AST ALT Alkaline Phosphatase Total Protein Albumin Random Vancomycin 20.1 H Hep Bs Antigen Negative Hep Bs Antibody Positive 07/17/24 03:40 WBC 17.0 H RBC 2.41 L Hgb 7.6 L Hct 22.1 L MCV 91.7 MCH 31.5 MCHC 34.4 RDW 14.3 Plt Count 329 MPV 9.9 Immature Gran % (Auto) Not Reportable Neut % (Auto) Not Reportable Lymph % (Auto) Not Reportable [place] % (Auto) Not Reportable Eos % (Auto) Not Reportable Baso % (Auto) Not Reportable Lymph # (Auto) Not Reportable [place] # (Auto) Not Reportable Eos # (Auto) Not Reportable Baso # (Auto) Not Reportable Abs Immat Gran (auto) Not Reportable Absolute Neuts (auto) Not Reportable Absolute Nucleated RBC Not Reportable Total Counted 100 Neutrophils % (Manual) 90 H Band Neutrophils % 4 Lymphocytes % (Manual) 4.0 L Monocytes % (Manual) 2 L Nucleated RBC % Not Reportable Abs Neuts (Manual) 15.98 H Abs Lymphs (Manual) 0.68 L Abs Monocytes (Manual) 0.34 Platelet Estimate Adequate Anisocytosis 1+ Target Cells 1+ [place] Cells 1+ Schistocytes Rare APTT Sodium 131 L Potassium 3.1 L Chloride 93 L Carbon Dioxide 25 Anion Gap 13 H BUN 32 H Creatinine 7.60 H Estim Creat Clear Calc 7 Estimated GFR 7 L Glucose 151 H Lactic Acid 1.7 Calcium 8.5 Phosphorus 4.4 Magnesium 2.0 Total Bilirubin 0.7 AST 44 H ALT 53 H Alkaline Phosphatase 73 Total Protein 6.0 L Albumin 2.9 L Random Vancomycin Hep Bs Antigen Hep Bs Antibody Quality VTE Prophylaxis VTE prophylaxis: mechanical ordered
--- NOTE | 2024-07-17 12:40 | PCFNICU ---
ICU Rounding Note: Pt current nutrition is Renal diet. Nepro BID for additional 420 kcal and 19 g protein each. Nutrition recommendation: No new nutrition recommendations. Continue current nutrition care plan and orders. Agree with orders Last recorded weight is 95.2 kg. Bowel Motility: +1 BM 07/14/24 Labs Reviewed: Hgb 7.6, Hct 22.1, Alb 2.9, Na 131, K+ 3.1, GFR 7, BUN 32, Cre 7.6, glu 151 Meds Noted: Synthroid, protonix Skin: WNL Additional Notes: Intakes 5-30% recorded on renal diet. Pt says appetite is improving. Nepro is ordered BID for intakes. Continue with same care plan orders. Following daily in ICU rounds. Monitoring intakes, labs, weights, supplement tolerance, plan of care Follow up in 5 days.
[2024-07-17 12:51] LABS: Partial Thromboplastin Time > 200.0 Seconds (22.3-36.8)
[2024-07-17 13:17] LABS: Iron 70 ug/dL (37-170)
[2024-07-17 13:27] LABS: Percent Iron Saturation 44 % (20-50); TOTAL IRON BINDING CAPACITY 158 ug/dL (261-462)
[2024-07-17] MEDS: HEPARIN SOD/D5W 100 UNITS/ML 25,000 UNITS/250 ML BAG 9 UNITS IV CONT (14:07)
[2024-07-17 14:38] LABS: Vitamin B12 > 1000.0 pg/mL (239-931)
[2024-07-17 15:30] LABS: Folic Acid 17.2 ng/mL (2.76->20)
[2024-07-17] MEDS: CEFEPIME 1 GM/NS 50 ML 1 GM/50 ML BAG IVPB (17:56)
[2024-07-17 18:28] LABS: Partial Thromboplastin Time 154.7 Seconds (22.3-36.8)
[2024-07-17] MEDS: GENTAMICIN SULFATE 0.1% CR 15 GM TUBE 1 APPLIC TOPICAL (21:00)
[2024-07-17] MEDS: AMIODARONE 360 MG/D5W 200 ML 360 MG/200 ML BAG 16.67 MG IV CONT (21:00)
[2024-07-18] VITALS (21 sets, daily range): BP systolic 92–112; BP diastolic 65–87; PULSE 97–130; RESP 15–23; TEMP 36.4–36.9; O2SAT 93–100
[2024-07-18 01:18] LABS: Partial Thromboplastin Time 126.1 Seconds (22.3-36.8)
[2024-07-18 05:36] LABS: Hematocrit 22.4 % (37.0-47.0); Hemoglobin 7.8 g/dL (12.0-15.0); Mean Corpuscular HGB Conc 34.8 g/dl (32-36); Mean Corpuscular Hemoglobin 31.3 pg (26-34); Mean Platelet Volume 10.4 fl (7.4-10.4); Platelet Count Result 325 k/mm3 (150-375); Red Blood Count 2.49 M/mm3 (4.2-5.4); Red Cell Distribution Width 14.2 % (11.5-14.5)
[2024-07-18 05:43] LABS: INR 2.9; Prothrombin Time 31.1 Seconds (11.1-14.7)
[2024-07-18 05:46] LABS: Alanine Aminotransferase 46 U/L (6-35); Albumin Level 2.8 g/dL (3.5-5.1); Alkaline Phosphatase 109 U/L (38-126); Anion Gap 11 mmol/L (4-12); Aspartate Amino Transferase 27 U/L (14-36); Bilirubin,Total 0.6 mg/dL (0.2-1.3); Blood Urea Nitrogen 35 mg/dL (7-17); Calcium 8.7 mg/dL (8.4-10.2); Carbon Dioxide 25 mmol/L (22-30); Chloride 94 mmol/L (98-107); Estimated CRCL calculation 7 ml/min; Estimated Glomerular Filt Rate 6; Glucose 142 mg/dL (65-110); Magnesium 2.1 mg/dL (1.6-2.3); Phosphorus 4.1 mg/dL (2.5-4.5); Sodium 130 mmol/L (137-145)
[2024-07-18] MEDS: LEVOTHYROXINE SODIUM 25 MCG TABLET PO (06:10)
[2024-07-18] MEDS: CENTRAL LINE FLUSH 10 ML IV PUSH ×2 (06:10→22:06)
[2024-07-18 06:28] LABS: Band Neutrophils Percent 11 % (0-6); Basophils Absolute Manual 0.14 K/mm3 (0.0-0.1); Basophils Percent Manual 1 % (0-1); Eosinophils Absolute Manual 0.42 K/mm3 (0.02-0.50); Eosinophils Percent Manual 3 % (0-4); Lymphocytes Absolute Manual 1.12 K/mm3 (1.1-4.5); Metamyelocytes Percent 2 %; Monocytes Absolute Manual 0.28 K/mm3 (0.1-0.90); Monocytes Percent Manual 2 % (3-9); Myelocytes Percent 1 %; Neutrophils Absolute Manual 11.62 K/mm3 (1.7-7.2); Neutrophils Percent Manual 72 % (46-73); Total Cells Counted 100
[2024-07-18 06:29] LABS: Anisocytosis 1+; Platelet Estimate Adequate (Adequate); Schistocytes None Seen; Target Cells 1+
[2024-07-18] MEDS: calcitrioL 0.25 MCG CAPSULE PO (08:21)
[2024-07-18] MEDS: METOPROLOL TARTRATE 50 MG TAB 100 MG PO ×2 (08:21→22:05)
[2024-07-18] MEDS: PANTOPRAZOLE SODIUM IV 40 MG VIAL IV PUSH ×2 (08:21→22:05)
[2024-07-18] MEDS: AMIODARONE 360 MG/D5W 200 ML 360 MG/200 ML BAG 16.67 MG IV CONT (08:30)
[2024-07-18 09:16] LABS: Partial Thromboplastin Time 112.2 Seconds (22.3-36.8)
--- NOTE | 2024-07-18 09:43 | WPDGICN ---
Assessment and Plan Assessment and plan (1) Chronic anemia: Code(s): D64.9 - Anemia, unspecified <Tanisha Venturaaustin MACHINE TANK OPERATOR - Last Filed: 07/18/24 10:02> Status: Acute <Tanisha Voss, MACHINE TANK OPERATOR - Last Filed: 07/18/24 10:02> (2) CHF (congestive heart failure): Qualifiers: Heart failure chronicity: acute Heart failure type: unspecified Qualified Code(s): I50.9 - Heart failure, unspecified <Tanisha Voss, MACHINE TANK OPERATOR - Last Filed: 07/18/24 10:02> Code(s): I50.9 - Heart failure, unspecified <Tanisha ZieglerJessie Audreyaustin, MACHINE TANK OPERATOR - Last Filed: 07/18/24 10:02> Status: Acute <Tanisha ZieglerJessie Audreyaustin MACHINE TANK OPERATOR - Last Filed: 07/18/24 10:02> (3) Atrial fibrillation with RVR: Code(s): I48.91 - Unspecified atrial fibrillation <Tanisha ZieglerJessie Audreyaustin MACHINE TANK OPERATOR - Last Filed: 07/18/24 10:02> Status: Acute <Tanisha ZieglerJessie Marenfernando, MACHINE TANK OPERATOR - Last Filed: 07/18/24 10:02> (4) End-stage renal disease on peritoneal dialysis: Code(s): N18.6 - End stage renal disease; Z99.2 - Dependence on renal dialysis <Tanisha ZieglerJessie Audreyaustin MACHINE TANK OPERATOR - Last Filed: 07/18/24 10:02> Status: Acute <Tanisha ZieglerJessie Adureyaustin, MACHINE TANK OPERATOR - Last Filed: 07/18/24 10:02> (5) Sepsis: Qualifiers: Sepsis acute organ dysfunction status: unspecified Sepsis type: sepsis due to unspecified organism Qualified Code(s): A41.9 - Sepsis, unspecified organism <Tanisha ZieglerJessie Audreyaustin MACHINE TANK OPERATOR - Last Filed: 07/18/24 10:02> Code(s): A41.9 - Sepsis, unspecified organism <Tanisha ZieglerJessie Audreyaustin MACHINE TANK OPERATOR - Last Filed: 07/18/24 10:02> Status: Acute <Tanisha ZieglerJessie Audreyaustin MACHINE TANK OPERATOR - Last Filed: 07/18/24 10:02> (6) Hyponatremia: Code(s): E87.1 - Hypo-osmolality and hyponatremia <Tanisha Voss APRN - Last Filed: 07/18/24 10:02> Status: Acute <Tanisha Voss APRN - Last Filed: 07/18/24 10:02> (7) Hypokalemia: Code(s): E87.6 - Hypokalemia <Tanisha Voss APRN - Last Filed: 07/18/24 10:02> Status: Acute <Tanisha Voss APRN - Last Filed: 07/18/24 10:02> Assessment and Plan: 1. Acute on chronic anemia: Patient has never had an EGD or colonoscopy. Admitted for A-Fib RVR, hypotension and sepsis. Patient with known end-stage renal disease receiving peritoneal dialysis at home. Diagnosed with end-stage renal disease in 2021 and was initially started on hemodialysis but then had issues with access and was changed to peritoneal. Patient is on warfarin daily for A- fib and on initial ER presentation was found to be in AFib RVR with heart rate at 143 and INR was > 20, and most recent INR 2.9. Iron panel showed total iron 70, TIBC 158, iron saturation 44%, B12 and folate were normal. Patient denies any signs of active GI bleeding to include hematemesis, hematochezia, or melena. patient with multiple comorbidities including CHF, decreased EF at 20-25%, cardiomegaly and A-Fib on warfarin. Patient on heparin since admission acute on chronic anemia likely secondary to known chronic kidney disease and other co morbidities and less likely related to GI source of blood loss. No iron deficiency No indication at this time for emergent endoscopic evaluation Patient can follow up as outpatient to further determine if it would be safe for the patient to proceed with elective outpatient endoscopic evaluation nephrology on patient's case who recommended Retacit during hospitalization primary care team to continue monitoring H&H and transfuse as needed to keep HGB > 7 continue b.i.d. PPI 2. End-stage renal disease: Patient on peritoneal dialysis. most recent labs show BUN 35, creatinine 8.00 in GFR 6%. care being managed by Nephrology 3. A-Fib /tachycardia/CHF: on admission patient noted to be in AFib RVR with heart rate at 143 with unsuccessful cardioversion And was started on amiodarone. Patient was on warfarin prior to admission with INR > 20. Recent INR 2.9. Currently on heparin. Cardiac EF 20-25% and severe cardiomegaly noted on imaging. Cardiology on case and managing 4. Hyponatremia/hypokalemia: Most recent labs 07/18/2024 showed sodium 130 and potassium 3.0. Calcium, phosphorus, magnesium normal. Primary care team to continue monitoring and correct Thank you very much for allowing me to share in the care of this very nice patient. This report may have been done utilizing a voice recognition system. Attempts have been made to correct errors. However, there may be uncorrected grammatical, spelling, and recognition errors present. <Tanisha Voss APRN - Last Filed: 07/18/24 10:02> GI Consult Note Consult date/time: 07/18/24 09:43 <Tanisha Voss APRN - Last Filed: 07/18/24 10:02> Reason for consult: Anemia <Tanisha Voss APRN - Last Filed: 07/18/24 10:02> HPI: This is a 63-year-old female with history of AFib on warfarin, end-stage renal disease on peritoneal dialysis at home, HTN, history of , CHF and cardiomegaly. Patient presented to the ER July 14 with complaints of fever and hypotension. On admission patient noted to be in AFib RVR with heart rate of 143, hypotension, and sepsis. GI has been consulted for anemia. Patient states that she was seen in the ER July 05 at which time she was diagnosed and started on treatment for a UTI. With antibiotics the patient was having acute onset diarrhea prior to admission but diarrhea improved with OTC Imodium. she states that her last bowel movement was yesterday was formed and denies hematochezia or melena. Patient states that she typically has 1-2 formed non urgent bowel movements. She denies any abdominal pain, nausea, vomiting, bloating, odynophagia, dysphagia, reflux, regurgitation, early satiety, or unexplained weight loss. She states that her appetite was decreased prior to admission but states that it has been improving. She denies any diarrhea, constipation, hematochezia, or melena since admission. She denies any NSAID or aspirin use but is on warfarin daily prior to admission. She has a current nondrinker and nonsmoker. Family history negative for CRC or IBD. ENDOSCOPY HISTORY: Patient has never had an EGD or colonoscopy LABS AND STOOL STUDIES: Labs 07/18/2024: Sodium 130, potassium 3.0, BUN 35, creatinine 8.00, GFR 6%. WBC is 14, HGB 8, HCT 22, MCV 90, platelets 325, INR 2.9. Total bilirubin 0.6, AST 27, ALT 46, alkaline phosphatase 109, albumin 2.8. Calcium 8.7, phosphorus 8.1, magnesium 2.1, B12 and folate normal Total iron 70, TIBC 158, iron saturation 44%. IMAGING: Chest Xray 07/18/2024 Impression: Small left pleural effusion with minimal bibasilar pulmonary edema/atelectasis. Stable cardiomegaly. CT abd/pelvis w/o contrast 07/14/2024 IMPRESSION: 1. 8 cm complex cystic lesion within the spleen which could represent a hematoma, abscess or less likely neoplasm. 2. Tiny left pleural effusion with likely combination of atelectasis and mild pulmonary edema in the dependent lungs. 3. Moderate cardiomegaly with enlargement of the central pulmonary arteries consistent with pulmonary arterial hypertension. 4. Moderate bilateral renal atrophy with bilateral nephrolithiasis including a 9 mm stone at the right ureteropelvic junction without hydronephrosis which could reflect poor renal function. 5. Small to moderate amount of ascites likely related to peritoneal dialysis with dialysis catheter in the pelvis. 6. Extensive diverticulosis. <Tanisha Voss APRN - Last Filed: 07/18/24 10:02> Review of Systems Constitutional: Constitutional: Reports as per HPI <Tanisha Voss APRN - Last Filed: 07/18/24 10:02> ENT: Reports as per HPI <Tanisha Voss APRN - Last Filed: 07/18/24 10:02> Cardiovascular: Cardiovascular: Reports as per HPI, Denies chest pain, Denies leg edema and Denies dyspnea <Tanisha uSsy Voss APRN - Last Filed: 07/18/24 10:02> Respiratory: Respiratory: Denies cough, Denies hemoptysis and Denies dyspnea <Tanisha ZieglerJessie Voss MACHINE TANK OPERATOR - Last Filed: 07/18/24 10:02> Gastrointestinal: Gastrointestinal: Reports as per HPI <Tanishaluke Voss MACHINE TANK OPERATOR - Last Filed: 07/18/24 10:02> Musculoskeletal: Musculoskeletal: Reports as per HPI <Tanisha Susy Voss MACHINE TANK OPERATOR - Last Filed: 07/18/24 10:02> Integumentary/Breasts: Skin/Breast: Reports as per HPI <Tanisha Voss APRN - Last Filed: 07/18/24 10:02> Psychiatric: Psychiatric: Reports as per HPI <Tanisha Voss MACHINE TANK OPERATOR - Last Filed: 07/18/24 10:02> Endocrine: Endocrine: Reports no additional endocrine complaints <Tanishaluke Voss APRN - Last Filed: 07/18/24 10:02> Hematologic/Lymphatic: Hematologic/Lymphatic: Reports no additional hematologic/lymphatic complaints <Tanisha Susy Voss APRN - Last Filed: 07/18/24 10:02> [facility] Past Medical History Medical History: Medical History (Updated 07/19/24 @ 10:24 by Ruiz Garcia MD) Ureterolithiasis Afib Chronic kidney disease, unspecified Chronic kidney disease Acute renal failure Hypertension <Tanishaluke Voss APRN - Last Filed: 07/18/24 10:02> Surgical History Surgical History: Surgical History History of tonsillectomy History of <Tanishaluke Voss APRN - Last Filed: 07/18/24 10:02> Family History Family History: Family History Father CAD (coronary artery disease) Mother Hypertension <Tanishaluke Voss APRN - Last Filed: 07/18/24 10:02> Social History Social History: Social History Social History: The patient lives at home with her daughter and mother. 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 She used to smoke half a pack of cigarettes per day but quit smoking in 2018. She has 20 pack per year smoking history. She used to drink 1-2 beers a day every day but quit doing so several years ago. She now drinks 1 beer on rare occasion. She denies any illicit substance use. Primary care provider: Brandie Rhoades [facility] Code status: Full code Surrogate decision maker: Daughter Smoking packs per day: 0.5 Smoking cigarettes per day: 10.0 Years smoked: 40 Smoking pack-years: 20.00 Smoking status: Former smoker Alcohol intake: unknown Drinks per week: 1 Substance use: unknown Do You Feel Safe in your Home?: Yes Lack of Transportation: No Lack of Food: Never True Current Housing: I Have Housing Concerned About Future Housing: No Difficulty Paying Gas/Electric Bills: No Difficulty Paying for Meds: No Currently Unemployed: No Education: Decline to Answer Difficulty w/ Childcare or Family Care: No Spiritual care concerns: No <Tanisha Vsos, CLARISA - Last Filed: 07/18/24 10:02> Meds Home Medications and Allergies Home medications: Home Medications ?Medication ?Instructions ?Recorded ?Confirmed ?Type metoprolol tartrate 50 mg tablet 100 mg (2 x 50 mg) PO BID #60 tabs 07/30/21 07/14/24 Rx warfarin 2.5 mg tablet 2.5 mg PO DAILY #30 tabs 07/30/21 07/14/24 Rx vitamin B complex-vitamin C-folic 1 tablet PO DAILY #90 tabs 11/20/22 07/14/24 Rx acid 0.8 mg tablet (Nephro-Silvia) calcitriol 0.25 mcg capsule 0.25 mcg PO DAILY 07/14/24 07/14/24 History furosemide 80 mg tablet 80 mg PO BID 07/14/24 07/14/24 History gentamicin 0.1 % topical cream 1 applic topical DAILY 07/14/24 07/14/24 History levothyroxine 25 mcg tablet 25 mcg PO DAILY 07/14/24 07/14/24 History losartan 100 mg tablet 100 mg PO DAILY 07/14/24 07/14/24 History potassium chloride 10 mEq 10 meq PO DAILY 07/14/24 07/14/24 History tablet,extended release <Tanisha Voss APRN - Last Filed: 07/18/24 10:02> Allergies/Adverse reactions: Allergies Allergy/AdvReac Type Severity Reaction Status Date / Time PHILIP Inhibitors Allergy Severe Swelling Verified 07/05/24 12:01 of Lip/Tongue/Throat azithromycin Allergy Severe Dyspnea / Verified 07/05/24 12:01 SOB <Tanisha Voss APRN - Last Filed: 07/18/24 10:02> Vital Signs Vital Signs - 24 hr 07/17/24 10:00 07/17/24 10:00 07/17/24 10:00 Temperature Pulse Rate 110 H 103 H 102 H Respiratory Rate 24 H Blood Pressure 112/82 100/80 Pulse Oximetry 100 Oxygen Delivery Oxygen Flow Rate 07/17/24 10:15 07/17/24 10:15 07/17/24 10:46 Temperature Pulse Rate 101 H 101 H 111 H Respiratory Rate Blood Pressure 100/80 100/80 100/80 Pulse Oximetry Oxygen Delivery Oxygen Flow Rate 07/17/24 12:00 07/17/24 12:00 07/17/24 12:00 Temperature 97.7 F Pulse Rate 104 H 101 H Respiratory Rate 24 H Blood Pressure 113/79 113/79 Pulse Oximetry 100 96 Oxygen Delivery Nasal Cannula Oxygen Flow Rate 2 07/17/24 12:00 07/17/24 14:00 07/17/24 14:00 Temperature Pulse Rate 105 H 116 H 116 H Respiratory Rate 21 H Blood Pressure 108/91 H Pulse Oximetry 95 Oxygen Delivery Oxygen Flow Rate 07/17/24 14:00 07/17/24 16:00 07/17/24 16:00 Temperature Pulse Rate 116 H 118 H Respiratory Rate Blood Pressure 108/91 H Pulse Oximetry 96 Oxygen Delivery Nasal Cannula Oxygen Flow Rate 2 07/17/24 16:00 07/17/24 16:00 07/17/24 18:00 Temperature Pulse Rate 111 H 111 H 119 H Respiratory Rate 22 H Blood Pressure 107/77 107/77 Pulse Oximetry 100 Oxygen Delivery Oxygen Flow Rate 07/17/24 18:00 07/17/24 18:00 07/17/24 20:00 Temperature Pulse Rate 119 H 119 H 129 H Respiratory Rate 34 H Blood Pressure 103/79 103/79 124/93 H Pulse Oximetry 100 Oxygen Delivery Oxygen Flow Rate 07/17/24 20:00 07/17/24 20:00 07/17/24 20:06 Temperature 98.4 F Pulse Rate 127 H 129 H Respiratory Rate 29 H Blood Pressure 124/93 H Pulse Oximetry 96 Oxygen Delivery Room Air Oxygen Flow Rate 07/17/24 21:00 07/17/24 21:00 07/17/24 21:00 Temperature Pulse Rate 126 H 107 H 107 H Respiratory Rate Blood Pressure 100/72 100/72 Pulse Oximetry Oxygen Delivery Oxygen Flow Rate 07/17/24 22:00 07/17/24 22:00 07/18/24 00:00 Temperature Pulse Rate 120 H 120 H 107 H Respiratory Rate Blood Pressure 131/91 H 99/84 L Pulse Oximetry Oxygen Delivery Oxygen Flow Rate 07/18/24 00:00 07/18/24 00:00 07/18/24 00:01 Temperature 98.5 F Pulse Rate 97 107 H Respiratory Rate 20 Blood Pressure 99/84 L Pulse Oximetry 98 Oxygen Delivery Room Air Oxygen Flow Rate 07/18/24 02:00 07/18/24 02:00 07/18/24 02:00 Temperature Pulse Rate 97 97 97 Respiratory Rate 16 Blood Pressure 95/72 L 95/72 L Pulse Oximetry 99 Oxygen Delivery Oxygen Flow Rate 07/18/24 04:00 07/18/24 04:00 07/18/24 04:00 Temperature 97.9 F Pulse Rate 106 H 106 H Respiratory Rate 17 Blood Pressure 109/86 109/86 Pulse Oximetry 98 Oxygen Delivery Room Air Oxygen Flow Rate 07/18/24 04:00 07/18/24 06:00 07/18/24 06:00 Temperature Pulse Rate 100 104 H 104 H Respiratory Rate 17 Blood Pressure 102/72 102/72 Pulse Oximetry 95 Oxygen Delivery Oxygen Flow Rate 07/18/24 06:00 07/18/24 08:00 07/18/24 08:00 Temperature Pulse Rate 104 H 103 H Respiratory Rate Blood Pressure Pulse Oximetry Oxygen Delivery Room Air Oxygen Flow Rate 07/18/24 08:00 07/18/24 08:06 07/18/24 08:21 Temperature 97.6 F 98.4 F Pulse Rate 108 H 104 H 121 H Respiratory Rate 15 17 Blood Pressure 106/69 102/72 Pulse Oximetry 99 Oxygen Delivery Oxygen Flow Rate 07/18/24 08:30 07/18/24 08:30 Temperature Pulse Rate 124 H 124 H Respiratory Rate Blood Pressure 106/69 106/69 Pulse Oximetry Oxygen Delivery Oxygen Flow Rate <Tanisha Voss APRN - Last Filed: 07/18/24 10:02> Exam Const: General: cooperative, healthy appearing, comfortable, no acute distress and well developed <Tanisha Voss APRN - Last Filed: 07/18/24 10:02> Orientation/consciousness: oriented to person, oriented to place, oriented to time and patient oriented x3 <Tanisha Voss APRN - Last Filed: 07/18/24 10:02> HENMT: Head: normal to inspection, normocephalic and atraumatic <Tanisha Voss APRN - Last Filed: 07/18/24 10:02> Mouth: Yes Normal oral and palatal mucosa present and Yes moist mucous membranes <Tanisha Voss APRN - Last Filed: 07/18/24 10:02> Eyes: General: appearance normal, both eyes and all related structures <Tanisha Voss APRN - Last Filed: 07/18/24 10:02> Conjunctivae: conjunctivae normal <Tanisha Voss APRN - Last Filed: 07/18/24 10:02> Sclera: sclerae normal <Tanisha Voss APRN - Last Filed: 07/18/24 10:02> Pupils: Equal, round and reactive pupils present <Tanisha Voss APRN - Last Filed: 07/18/24 10:02> Neck: Neck: normal visual inspection <Tanisha Voss APRN - Last Filed: 07/18/24 10:02> Chest: Chest palpation & inspection: normal inspection of the chest <Tanisha Voss APRN - Last Filed: 07/18/24 10:02> Resp: Effort & Inspection: normal respiratory effort and able to speak in complete sentences <CLARISA Medina Last Filed: 07/18/24 10:02> Auscultation: clear to auscultation bilaterally <Tanisha Voss APRN - Last Filed: 07/18/24 10:02> Cardio: Jugular venous distension: no JVD <Tanisha Voss MACHINE TANK OPERATOR - Last Filed: 07/18/24 10:02> Rate: tachycardic <Tanisha Voss MACHINE TANK OPERATOR - Last Filed: 07/18/24 10:02> Rhythm: abnormal rhythm <Tanisha Voss MACHINE TANK OPERATOR - Last Filed: 07/18/24 10:02> GI: Inspection: normal to inspection <Tanisha Voss MACHINE TANK OPERATOR - Last Filed: 07/18/24 10:02> GI Palp: Yes Soft to palpation, No Tenderness to palpation present (GI), No Guarding due to palpation present (GI) and Yes No hepatosplenomegaly present <Tanisha Voss MACHINE TANK OPERATOR - Last Filed: 07/18/24 10:02> Auscultation: normal bowel sounds <Tanisha Venturamelanyfernando [facility] Last Filed: 07/18/24 10:02> Rectal Exam: deferred <Tanisha Voss MACHINE TANK OPERATOR - Last Filed: 07/18/24 10:02> Other: large soft abdomen <Tanisha Venturamelanyfernando MACHINE TANK OPERATOR - Last Filed: 07/18/24 10:02> Skin: General skin exam: normal color and no rashes or lesions noted <Tanisha Voss [facility] Last Filed: 07/18/24 10:02> Neuro: General: oriented to person, oriented to place, oriented to time and patient oriented x3 <Tanisha Venturamelanyfernando [facility] Last Filed: 07/18/24 10:02> Cranial nerves: Yes Equal, round and reactive pupils present <Tanisha Venturaaustin MACHINE TANK OPERATOR - Last Filed: 07/18/24 10:02> Speech: normal speech <Tanisha Venturaaustin MACHINE TANK OPERATOR - Last Filed: 07/18/24 10:02> Extrem: General: normal to inspection and no clubbing, cyanosis or edema <Tanisha Venturaaustin MACHINE TANK OPERATOR - Last Filed: 07/18/24 10:02> Psych: Appearance: grossly normal and well kempt <Tanisha Susy Voss APRN - Last Filed: 07/18/24 10:02> Affect: normal affect <Tanisha Voss APRN - Last Filed: 07/18/24 10:02> Results Labs CBC & Chem 7: 07/19/24 05:41 07/19/24 05:42 <Tanisha Voss APRN - Last Filed: 07/18/24 10:02> Labs: Short CBC 07/18/24 Range/Units 05:15 WBC 14.0 H (4.5-10.0) K/mm3 Hgb 7.8 L (12.0-15.0) g/dL Hct 22.4 L (37.0-47.0) % Plt Count 325 (150-375) k/mm3 BMP 07/18/24 05:15 Sodium 130 L Potassium 3.0 L Chloride 94 L Carbon Dioxide 25 BUN 35 H Creatinine 8.00 H Glucose 142 H Calcium 8.7 Liver Function 07/18/24 Range/Units 05:15 Total Bilirubin 0.6 (0.2-1.3) mg/dL AST 27 (14-36) U/L ALT 46 H (6-35) U/L Alkaline Phosphatase 109 (38-126) U/L Albumin 2.8 L (3.5-5.1) g/dL <Tanisha Voss APRN - Last Filed: 07/18/24 10:02> Attestation Supervising Provider Attestation Patient seen and examined the patient has not seen any GI bleeding currently being treated and worked up for infection /UTI kidney stones. Anemia can be multifactorial because of chronic anemia versus renal failure patient never had an upper endoscopy and colonoscopy would recommend patient to schedule it as outpatient in 4 to 6 weeks. Necessity of endoscopic evaluation has been discussed with the family. I agree with the assessment and plan of Ms. Garay. <Abhijit Camara MD - Last Filed: 07/19/24 12:55>
--- NOTE | 2024-07-18 10:16 | PM.PNNEP ---
Progress Note: A&P Assessment and Plan (1) End stage renal disease: Code(s): N18.6 - End stage renal disease Status: Chronic Assessment and Plan: continue nightly CCPD no evidence of peritonitis by PD fluid analysis done in ER follow electrolytes, volume status, and clearance adjust PD prescription as needed (2) Septic shock: Code(s): A41.9 - Sepsis, unspecified organism; R65.21 - Severe sepsis with septic shock Status: Acute Assessment and Plan: as noted by presentation with fever, chills, and hypotension along with Afib with RVR s/p 3L fluid resuscitation but remained hypotension hypotension worsened by use of IV metoprolol in ER (given in an attempt to control Afib with RVR) central line placed and started on vasopressors for persistent low BP has since been weaned off phenylephrine culture data noted: blood culture with E. coli and Proprionibacterium acnes urine culture with no growth (but urine culture from 07/05 with E. coli as well) follow trend of hemodynamics on antibiotics (3) Bacteremia: Code(s): R78.81 - Bacteremia Status: Acute Assessment and Plan: presumed source for sepsis/septic shock blood culture with E.coli and Proprionibacterium acnes suspected urinary source (see urine culture from 07/05) on antibiotics see #2 (4) UTI (urinary tract infection): Code(s): N39.0 - Urinary tract infection, site not specified Status: Acute Assessment and Plan: admission UA highly suggestive diagnosed with UTI ~ 10 days ago prior admission by recent ER visit urine culture at that time grew E. coli repeat urine culture (this admission) negative to date already on antibiotics (5) Atrial fibrillation with rapid ventricular response: Code(s): I48.91 - Unspecified atrial fibrillation Status: Acute Assessment and Plan: noted on presentation to ER known history attempts at rate control in ER with IV metoprolol failed (and resulted in worsening hypotension) failed attempted cardioversion in ER as well transitioning to oral amiodarone and warfarin continue rate control strategy and anticoagulation Cardiology following (6) Cardiomyopathy: Code(s): I42.9 - Cardiomyopathy, unspecified Status: Acute Assessment and Plan: known history: last echo from July 2021 with an EF of 20-25% repeat Echo noted (07/15/24): left ventricular systolic function estimated at 20-25%. grade III diastolic dysfunction moderate to severe tricuspid valve regurgitation. mild pulmonary hypertension, estimated pulmonary arterial systolic pressure is 53 mmHg. moderate to severe eccentric mitral valve regurgitation appears relatively compensated at this time Cardiology following (7) Anemia: Code(s): D64.9 - Anemia, unspecified Status: Chronic Assessment and Plan: due to ESRD and acute illness complicated by supratherapetic INR on presentation this was corrected with FFP and Vitamin K anemia studies with adequate iron, B12, and folate PRBC transfusion per protocol Retacrit while hospitalized follow trend of H/H (8) Hypertension: Code(s): I10 - Essential (primary) hypertension Status: Chronic Assessment and Plan: presented with hypotension and hemodynamic instability weaned off vasopressor therapy BP medications on hold due to soft BPs at this time follow trend of hemodynamics Will continue to follow. Subjective Date/time seen: 07/18/24 10:16 Interval history: Follow-up for end stage renal disease on peritoneal dialysis. Tolerated peritoneal dialysis treatment overnight without any issues or problems (CCPD supervised and seen at 10:05AM); blood pressure remains stable (but soft) without the need for vasopressor therapy; weaned off supplemental oxygen at the time of my visit; heart rate appears to be doing better as well; off amiodarone and heparin gtt (to start oral amiodarone and warfarin); no apparent distress noted. Exam Narrative: General: WD/WN female in NAD Heart: IRRR and tachycardic; normal S1 and S2; no rub Lungs: clear anteriorly but decreased at bases Abdomen: soft, nontender, nondistended, positive bowel sounds Extremities: no cyanosis or clubbing; traceedema Skin: no rash Objective Data Vital Signs Vital Signs: Vital Signs Temp Pulse Resp BP Pulse Ox O2 Del Method 07/18/24 10:00 108 H 07/18/24 08:30 124 H 106/69 07/18/24 08:30 124 H 106/69 07/18/24 08:21 121 H 07/18/24 08:06 98.4 F 104 H 17 102/72 07/18/24 08:00 97.6 F 108 H 15 106/69 99 07/18/24 08:00 103 H 07/18/24 08:00 Room Air 07/18/24 06:00 104 H 07/18/24 06:00 104 H 17 102/72 95 07/18/24 06:00 104 H 102/72 07/18/24 04:00 100 07/18/24 04:00 106 H 109/86 07/18/24 04:00 Room Air 07/18/24 04:00 97.9 F 106 H 17 109/86 98 07/18/24 02:00 97 07/18/24 02:00 97 16 95/72 L 99 07/18/24 02:00 97 95/72 L 07/18/24 00:01 98.5 F 107 H 20 99/84 L 98 07/18/24 00:00 97 07/18/24 00:00 Room Air 07/18/24 00:00 107 H 99/84 L 07/17/24 22:00 120 H 07/17/24 22:00 120 H 131/91 H 07/17/24 21:00 107 H 100/72 07/17/24 21:00 107 H 100/72 07/17/24 21:00 126 H 07/17/24 20:06 98.4 F 129 H 29 H 124/93 H 96 07/17/24 20:00 127 H 07/17/24 20:00 Room Air 07/17/24 20:00 129 H 124/93 H 07/17/24 18:00 119 H 103/79 07/17/24 18:00 119 H 34 H 103/79 100 07/17/24 18:00 119 H Intake/Output Intake/Output: Intake & Output 07/15/24 07/16/24 07/17/24 07/18/24 23:59 23:59 23:59 23:59 Intake Total 2080.6 1289.0 1173.8 649.8 Output Total 100 286 309 9467 Balance 1980.6 693.0 346.8 -943.2 Meds/Results Medications: Active Medications Generic Name Dose Route Start Last Admin Trade Name Freq PRN Reason Stop Dose Admin Acetaminophen 650 mg 07/14/24 15:53 07/16/24 09:24 Acetaminophen 325 Mg Tablet PO 650 mg Q4H PRN Administration Mild Pain (1-3) or Fever Amiodarone HCl 400 mg 07/18/24 17:00 Amiodarone Hcl 200 Mg Tablet PO BID KELLEN Calcitriol 0.25 mcg 07/15/24 09:00 07/18/24 08:21 Calcitriol 0.25 Mcg Capsule PO 0.25 mcg DAILY [facility] Administration Epoetin Ab-epbx 10,000 units 07/17/24 09:00 07/17/24 08:14 Epoetin Ab-Epbx 10,000 Units/Ml Vial SUB-Q 10,000 units TUTHSA@09 [facility] Administration Gentamicin Sulfate 1 applic 07/15/24 21:00 07/17/24 21:00 Gentamicin Sulfate 0.1% Cr 15 Gm Tube TOPICAL 1 applic QHS [facility] Administration Cefepime HCl 1 gm in 50 mls @ 100 mls/hr 07/15/24 16:00 07/18/24 16:01 Maxipime 1 Gm/Ns 50 Ml IVPB 100 mls/hr Q24H [facility] Administration Levothyroxine Sodium 25 mcg 07/15/24 06:30 07/18/24 06:10 Levothyroxine Sodium 25 Mcg Tablet PO 25 mcg DAILY@0630 [facility] Administration Metoprolol Tartrate 75 mg 07/18/24 12:00 07/18/24 15:23 Metoprolol Tartrate 25 Mg Tablet PO Not Given Q6H [facility] Ondansetron HCl 4 mg 07/14/24 15:53 Ondansetron Inj 4 Mg/2 Ml Vial IV PUSH Q4H PRN Nausea Pantoprazole Sodium 40 mg 07/15/24 21:00 07/18/24 08:21 Pantoprazole Sodium Iv 40 Mg Vial IV PUSH 40 mg Q12HR [facility] Administration Sodium Chloride 10 ml 07/15/24 14:00 07/18/24 14:11 Central Line Flush IV PUSH Not Given Q8HR [facility] Sodium Chloride 20 ml 07/15/24 12:03 Central Line Flush IV PUSH PRN PRN after blood draws Warfarin Sodium 1.5 mg 07/18/24 17:00 Warfarin (*Pbkc) 1.5 Mg Tablet PO DAILY@1700 [facility] Radiology Results: ITS Impressions Chest/Abdomen/Pelvis CT 07/14/24 14:45 IMPRESSION: 1. 8 cm complex cystic lesion within the spleen which could represent a hematoma, abscess or less likely neoplasm. 2. Tiny left pleural effusion with likely combination of atelectasis and mild pulmonary edema in the dependent lungs. 3. Moderate cardiomegaly with enlargement of the central pulmonary arteries consistent with pulmonary arterial hypertension. 4. Moderate bilateral renal atrophy with bilateral nephrolithiasis including a 9 mm stone at the right ureteropelvic junction without hydronephrosis which could reflect poor renal function. 5. Small to moderate amount of ascites likely related to peritoneal dialysis with dialysis catheter in the pelvis. 6. Extensive diverticulosis. Chest X-Ray 07/18/24 05:50 Impression: Small left pleural effusion with minimal bibasilar pulmonary edema/atelectasis. Stable cardiomegaly. Labs Labs: Laboratory Tests 07/18/24 05:15 07/18/24 05:15 INR 2.9 Calcium 8.7 Phosphorus 4.1 Magnesium 2.1 Total Bilirubin 0.6 AST 27 ALT 46 H Alkaline Phosphatase 109 Total Protein 6.0 L Albumin 2.8 L
--- NOTE | 2024-07-18 10:16 | P.PNNP_ITS ---
Progress Note: A&P Assessment and Plan (1) End stage renal disease: Code(s): N18.6 - End stage renal disease Status: Chronic Assessment and Plan: * continue nightly CCPD * no evidence of peritonitis by PD fluid analysis done in ER * follow electrolytes, volume status, and clearance * adjust PD prescription as needed (2) Septic shock: Code(s): A41.9 - Sepsis, unspecified organism; R65.21 - Severe sepsis with septic shock Status: Acute Assessment and Plan: * as noted by presentation with fever, chills, and hypotension along with Afib with RVR * s/p 3L fluid resuscitation but remained hypotension * hypotension worsened by use of IV metoprolol in ER (given in an attempt to control Afib with RVR) * central line placed and started on vasopressors for persistent low BP * has since been weaned off phenylephrine * culture data noted: * blood culture with E. coli and Proprionibacterium acnes * urine culture with no growth (but urine culture from 07/05 with E. coli as well) * follow trend of hemodynamics * on antibiotics (3) Bacteremia: Code(s): R78.81 - Bacteremia Status: Acute Assessment and Plan: * presumed source for sepsis/septic shock * blood culture with E.coli and Proprionibacterium acnes * suspected urinary source (see urine culture from 07/05) * on antibiotics * see #2 (4) UTI (urinary tract infection): Code(s): N39.0 - Urinary tract infection, site not specified Status: Acute Assessment and Plan: * admission UA highly suggestive * diagnosed with UTI ~ 10 days ago prior admission by recent ER visit * urine culture at that time grew E. coli * repeat urine culture (this admission) negative to date * already on antibiotics (5) Atrial fibrillation with rapid ventricular response: Code(s): I48.91 - Unspecified atrial fibrillation Status: Acute Assessment and Plan: * noted on presentation to ER * known history * attempts at rate control in ER with IV metoprolol failed (and resulted in worsening hypotension) * failed attempted cardioversion in ER as well * transitioning to oral amiodarone and warfarin * continue rate control strategy and anticoagulation * Cardiology following (6) Cardiomyopathy: Code(s): I42.9 - Cardiomyopathy, unspecified Status: Acute Assessment and Plan: * known history: * last echo from July 2021 with an EF of 20-25% * repeat Echo noted (07/15/24): * left ventricular systolic function estimated at 20-25%. * grade III diastolic dysfunction * moderate to severe tricuspid valve regurgitation. * mild pulmonary hypertension, estimated pulmonary arterial systolic pressure is 53 mmHg. * moderate to severe eccentric mitral valve regurgitation * appears relatively compensated at this time * Cardiology following (7) Anemia: Code(s): D64.9 - Anemia, unspecified Status: Chronic Assessment and Plan: * due to ESRD and acute illness * complicated by supratherapetic INR on presentation * this was corrected with FFP and Vitamin K * anemia studies with adequate iron, B12, and folate * PRBC transfusion per protocol * Retacrit while hospitalized * follow trend of H/H (8) Hypertension: Code(s): I10 - Essential (primary) hypertension Status: Chronic Assessment and Plan: * presented with hypotension and hemodynamic instability * weaned off vasopressor therapy * BP medications on hold due to soft BPs at this time * follow trend of hemodynamics Will continue to follow. L Subjective Date/time seen: 07/18/24 10:16 Interval history: Follow-up for end stage renal disease on peritoneal dialysis. Tolerated peritoneal dialysis treatment overnight without any issues or problems (CCPD supervised and seen at 10:05AM); blood pressure remains stable (but soft) without the need for vasopressor therapy; weaned off supplemental oxygen at the time of my visit; heart rate appears to be doing better as well; off amiodarone and heparin gtt (to start oral amiodarone and warfarin); no apparent distress noted. Exam 2 Narrative: General: WD/WN female in NAD Heart: IRRR and tachycardic; normal S1 and S2; no rub Lungs: clear anteriorly but decreased at bases Abdomen: soft, nontender, nondistended, positive bowel sounds Extremities: no cyanosis or clubbing; traceedema Skin: no rash Objective Data Vital Signs Vital Signs: Vital Signs Temp Pulse Resp BP Pulse Ox O2 Del Method 07/18/24 10:00 108 H 07/18/24 08:30 124 H 106/69 07/18/24 08:30 124 H 106/69 07/18/24 08:21 121 H 07/18/24 08:06 98.4 F 104 H 17 102/72 07/18/24 08:00 97.6 F 108 H 15 106/69 99 07/18/24 08:00 103 H 07/18/24 08:00 Room Air 07/18/24 06:00 104 H 07/18/24 06:00 104 H 17 102/72 95 07/18/24 06:00 104 H 102/72 07/18/24 04:00 100 07/18/24 04:00 106 H 109/86 07/18/24 04:00 Room Air 07/18/24 04:00 97.9 F 106 H 17 109/86 98 07/18/24 02:00 97 07/18/24 02:00 97 16 95/72 L 99 07/18/24 02:00 97 95/72 L 07/18/24 00:01 98.5 F 107 H 20 99/84 L 98 07/18/24 00:00 97 07/18/24 00:00 Room Air 07/18/24 00:00 107 H 99/84 L 07/17/24 22:00 120 H 07/17/24 22:00 120 H 131/91 H 07/17/24 21:00 107 H 100/72 07/17/24 21:00 107 H 100/72 07/17/24 21:00 126 H 07/17/24 20:06 98.4 F 129 H 29 H 124/93 H 96 07/17/24 20:00 127 H 07/17/24 20:00 Room Air 07/17/24 20:00 129 H 124/93 H 07/17/24 18:00 119 H 103/79 07/17/24 18:00 119 H 34 H 103/79 100 07/17/24 18:00 119 H Intake/Output Intake/Output: Intake & Output 07/15/24 07/16/24 07/17/24 07/18/24 23:59 23:59 23:59 23:59 Intake Total 2080.6 1289.0 1173.8 649.8 Output Total 100 184 015 8744 Balance 1980.6 693.0 346.8 -943.2 Meds/Results Medications: Active Medications Generic Name Dose Route Start Last Admin Trade Name Freq PRN Reason Stop Dose Admin Acetaminophen 650 mg 07/14/24 15:53 07/16/24 09:24 Acetaminophen 325 Mg Tablet PO 650 mg Q4H PRN Administration Mild Pain (1-3) or Fever Amiodarone HCl 400 mg 07/18/24 17:00 Amiodarone Hcl 200 Mg Tablet PO BID [facility] Calcitriol 0.25 mcg 07/15/24 09:00 07/18/24 08:21 Calcitriol 0.25 Mcg Capsule PO 0.25 mcg DAILY [facility] Administration Epoetin Ab-epbx 10,000 units 07/17/24 09:00 07/17/24 08:14 Epoetin Ab-Epbx 10,000 Units/Ml Vial SUB-Q 10,000 units TUTHSA@09 [facility] Administration Gentamicin Sulfate 1 applic 07/15/24 21:00 07/17/24 21:00 Gentamicin Sulfate 0.1% Cr 15 Gm Tube TOPICAL 1 applic QHS [facility] Administration Cefepime HCl 1 gm in 50 mls @ 100 mls/hr 07/15/24 16:00 07/18/24 16:01 Maxipime 1 Gm/Ns 50 Ml IVPB 100 mls/hr Q24H [facility] Administration Levothyroxine Sodium 25 mcg 07/15/24 06:30 07/18/24 06:10 Levothyroxine Sodium 25 Mcg Tablet PO 25 mcg DAILY@0630 [facility] Administration Metoprolol Tartrate 75 mg 07/18/24 12:00 07/18/24 15:23 Metoprolol Tartrate 25 Mg Tablet PO Not Given Q6H [facility] Ondansetron HCl 4 mg 07/14/24 15:53 Ondansetron Inj 4 Mg/2 Ml Vial IV PUSH Q4H PRN Nausea Pantoprazole Sodium 40 mg 07/15/24 21:00 07/18/24 08:21 Pantoprazole Sodium Iv 40 Mg Vial IV PUSH 40 mg Q12HR [facility] Administration Sodium Chloride 10 ml 07/15/24 14:00 07/18/24 14:11 Central Line Flush IV PUSH Not Given Q8HR [facility] Sodium Chloride 20 ml 07/15/24 12:03 Central Line Flush IV PUSH PRN PRN after blood draws Warfarin Sodium 1.5 mg 07/18/24 17:00 Warfarin (*Pbkc) 1.5 Mg Tablet PO DAILY@1700 [facility] Radiology Results: ITS Impressions Chest/Abdomen/Pelvis CT 07/14/24 14:45 IMPRESSION: 1. 8 cm complex cystic lesion within the spleen which could represent a hematoma, abscess or less likely neoplasm. 2. Tiny left pleural effusion with likely combination of atelectasis and mild pulmonary edema in the dependent lungs. 3. Moderate cardiomegaly with enlargement of the central pulmonary arteries consistent with pulmonary arterial hypertension. 4. Moderate bilateral renal atrophy with bilateral nephrolithiasis including a 9 mm stone at the right ureteropelvic junction without hydronephrosis which could reflect poor renal function. 5. Small to moderate amount of ascites likely related to peritoneal dialysis with dialysis catheter in the pelvis. 6. Extensive diverticulosis. Chest X-Ray 07/18/24 05:50 Impression: Small left pleural effusion with minimal bibasilar pulmonary edema/atelectasis. Stable cardiomegaly. Labs Labs: Laboratory Tests 07/18/24 05:15 07/18/24 05:15 INR 2.9 Calcium 8.7 Phosphorus 4.1 Magnesium 2.1 Total Bilirubin 0.6 AST 27 ALT 46 H Alkaline Phosphatase 109 Total Protein 6.0 L Albumin 2.8 L
[2024-07-18] MEDS: DIGOXIN INJ 250 MCG/ML 2 ML AMP (*BKC) IV PUSH (11:57)
[2024-07-18] MEDS: CEFEPIME 1 GM/NS 50 ML 1 GM/50 ML BAG IVPB (16:01)
[2024-07-18] MEDS: AMIODARONE HCL 200 MG TABLET 400 MG PO (18:06)
[2024-07-18] MEDS: WARFARIN (*PBKC) 1.5 MG TABLET PO (18:06)
--- NOTE | 2024-07-18 18:11 | P.PNCA_ITS ---
Progress Note: A&P Assessment and Plan (1) Atrial fibrillation with rapid ventricular response: Code(s): I48.91 - Unspecified atrial fibrillation Status: Acute Assessment and Plan: -she remains in RVR despite IV amiodarone infusion, high dose of beta-blockers -reviewing her chart shows that she has had cardioversion in the past and has reverted back to atrial fibrillation -I think part of her tachycardic response is because of underlying UTI and her low EF to maintain cardiac output Currently heart rates around 110 BP acceptable -she still remains tachycardic after the acute event has improved then I think she will need an AV silvana ablation and the possibility of a REGISTERED NURSE CARDIOVASC[facility] ICU D -DC heparin -warfarin 1.5 mg today, INR tomorrow (2) CHF (congestive heart failure): Qualifiers: Heart failure chronicity: acute Heart failure type: unspecified Qualified Code(s): I50.9 - Heart failure, unspecified Code(s): I50.9 - Heart failure, unspecified Status: Acute Assessment and Plan: She appears compensated at this time. (3) Hypotension: Code(s): I95.9 - Hypotension, unspecified Status: Acute Assessment and Plan: Secondary to UTI, sepsis. Blood pressure is stable. (4) Cardiomyopathy: Code(s): I42.9 - Cardiomyopathy, unspecified Status: Acute Assessment and Plan: EF 20-25% in 2021. Limited options for GDMT as she has ESRD/soft BP. Subjective Date/time seen: 07/18/24 18:11 Interval history: Doing well clinically However remains in RVR Denies chest pain or dyspnea Review of Systems Review of Systems: All systems reviewed & are unremarkable except as noted in HPI and below Exam Const: General: comfortable, no acute distress, alert and awake Orientation/consciousness: patient oriented x3 HENMT: Head: normal to inspection Eyes: General: appearance normal, both eyes and all related structures Pupils: Equal, round and reactive pupils present Neck: Neck: normal visual inspection, supple and no JVD Carotids: normal carotid upstroke Resp: Effort & Inspection: normal respiratory effort Auscultation: clear to auscultation bilaterally Cardio: Rate: regular rate Rhythm: abnormal rhythm irregularly irregular Heart sounds: S1 normal heart sound present, S2 normal heart sound present and no murmurs GI: Auscultation: normal bowel sounds Skin: General skin exam: normal color Neuro: General: patient oriented x3 Cranial nerves: Yes Equal, round and reactive pupils present Extrem: Other: Trace bilateral lower extremity edema Psych: Appearance: grossly normal Mental Status: mental status grossly normal Objective Data Vital Signs Vital Signs: Vital Signs - 24 hr 07/17/24 20:00 07/17/24 20:00 07/17/24 20:00 Temperature Pulse Rate 129 H 127 H Respiratory Rate Blood Pressure 124/93 H Pulse Oximetry Oxygen Delivery Room Air 07/17/24 20:06 07/17/24 21:00 07/17/24 21:00 Temperature 36.9 C Pulse Rate 129 H 126 H 107 H Respiratory Rate 29 H Blood Pressure 124/93 H 100/72 Pulse Oximetry 96 Oxygen Delivery 07/17/24 21:00 07/17/24 22:00 07/17/24 22:00 Temperature Pulse Rate 107 H 120 H 120 H Respiratory Rate Blood Pressure 100/72 131/91 H Pulse Oximetry Oxygen Delivery 07/18/24 00:00 07/18/24 00:00 07/18/24 00:00 Temperature Pulse Rate 107 H 97 Respiratory Rate Blood Pressure 99/84 L Pulse Oximetry Oxygen Delivery Room Air 07/18/24 00:01 07/18/24 02:00 07/18/24 02:00 Temperature 36.9 C Pulse Rate 107 H 97 97 Respiratory Rate 20 16 Blood Pressure 99/84 L 95/72 L 95/72 L Pulse Oximetry 98 99 Oxygen Delivery 07/18/24 02:00 07/18/24 04:00 07/18/24 04:00 Temperature 36.6 C Pulse Rate 97 106 H Respiratory Rate 17 Blood Pressure 109/86 Pulse Oximetry 98 Oxygen Delivery Room Air 07/18/24 04:00 07/18/24 04:00 07/18/24 06:00 Temperature Pulse Rate 106 H 100 104 H Respiratory Rate Blood Pressure 109/86 102/72 Pulse Oximetry Oxygen Delivery 07/18/24 06:00 07/18/24 06:00 07/18/24 08:00 Temperature Pulse Rate 104 H 104 H Respiratory Rate 17 Blood Pressure 102/72 Pulse Oximetry 95 Oxygen Delivery Room Air 07/18/24 08:00 07/18/24 08:00 07/18/24 08:06 Temperature 36.4 C 36.9 C Pulse Rate 103 H 108 H 104 H Respiratory Rate 15 17 Blood Pressure 106/69 102/72 Pulse Oximetry 99 Oxygen Delivery 07/18/24 08:21 07/18/24 08:30 07/18/24 08:30 Temperature Pulse Rate 121 H 124 H 124 H Respiratory Rate Blood Pressure 106/69 106/69 Pulse Oximetry Oxygen Delivery 07/18/24 10:00 07/18/24 11:57 07/18/24 12:00 Temperature 36.7 C Pulse Rate 108 H 105 H 117 H Respiratory Rate 21 H Blood Pressure 105/85 Pulse Oximetry 98 Oxygen Delivery 07/18/24 12:00 07/18/24 12:00 07/18/24 14:00 Temperature Pulse Rate 116 H 108 H Respiratory Rate Blood Pressure Pulse Oximetry Oxygen Delivery Room Air 07/18/24 16:00 Temperature 36.9 C Pulse Rate 116 H Respiratory Rate 23 H Blood Pressure 99/71 L Pulse Oximetry 93 Oxygen Delivery Intake/Output Intake/Output: Intake & Output 07/15/24 07/16/24 07/17/24 07/18/24 23:59 23:59 23:59 23:59 Intake Total 2080.6 1289.0 1173.8 649.8 Output Total 100 407 253 7757 Balance 1980.6 693.0 346.8 -943.2 Meds/Results Medications: Active Medications Generic Name Dose Route Start Last Admin Trade Name Freq PRN Reason Stop Dose Admin Acetaminophen 650 mg 07/14/24 15:53 07/16/24 09:24 Acetaminophen 325 Mg Tablet PO 650 mg Q4H PRN Administration Mild Pain (1-3) or Fever Amiodarone HCl 400 mg 07/18/24 17:00 Amiodarone Hcl 200 Mg Tablet PO BID [facility] Calcitriol 0.25 mcg 07/15/24 09:00 07/18/24 08:21 Calcitriol 0.25 Mcg Capsule PO 0.25 mcg DAILY KELLEN Administration Epoetin Ab-epbx 10,000 units 07/17/24 09:00 07/17/24 08:14 Epoetin Ab-Epbx 10,000 Units/Ml Vial SUB-Q 10,000 units TUTHSA@09 KELLEN Administration Gentamicin Sulfate 1 applic 07/15/24 21:00 07/17/24 21:00 Gentamicin Sulfate 0.1% Cr 15 Gm Tube TOPICAL 1 applic QHS KELLEN Administration Cefepime HCl 1 gm in 50 mls @ 100 mls/hr 07/15/24 16:00 07/18/24 16:01 Maxipime 1 Gm/Ns 50 Ml IVPB 100 mls/hr Q24H KELLEN Administration Levothyroxine Sodium 25 mcg 07/15/24 06:30 07/18/24 06:10 Levothyroxine Sodium 25 Mcg Tablet PO 25 mcg DAILY@0630 [facility] Administration Ondansetron HCl 4 mg 07/14/24 15:53 Ondansetron Inj 4 Mg/2 Ml Vial IV PUSH Q4H PRN Nausea Pantoprazole Sodium 40 mg 07/15/24 21:00 07/18/24 08:21 Pantoprazole Sodium Iv 40 Mg Vial IV PUSH 40 mg Q12HR [facility] Administration Sodium Chloride 10 ml 07/15/24 14:00 07/18/24 14:11 Central Line Flush IV PUSH Not Given Q8HR [facility] Sodium Chloride 20 ml 07/15/24 12:03 Central Line Flush IV PUSH PRN PRN after blood draws Warfarin Sodium 1.5 mg 07/18/24 17:00 Warfarin (*Pbkc) 1.5 Mg Tablet PO DAILY@1700 [facility] Radiology Results: ITS Impressions Chest/Abdomen/Pelvis CT 07/14/24 14:45 IMPRESSION: 1. 8 cm complex cystic lesion within the spleen which could represent a hematoma, abscess or less likely neoplasm. 2. Tiny left pleural effusion with likely combination of atelectasis and mild pulmonary edema in the dependent lungs. 3. Moderate cardiomegaly with enlargement of the central pulmonary arteries consistent with pulmonary arterial hypertension. 4. Moderate bilateral renal atrophy with bilateral nephrolithiasis including a 9 mm stone at the right ureteropelvic junction without hydronephrosis which could reflect poor renal function. 5. Small to moderate amount of ascites likely related to peritoneal dialysis with dialysis catheter in the pelvis. 6. Extensive diverticulosis. Chest X-Ray 07/18/24 05:50 Impression: Small left pleural effusion with minimal bibasilar pulmonary edema/atelectasis. Stable cardiomegaly. Labs Labs: Laboratory Results - last 24 hr 07/17/24 07/18/24 07/18/24 17:55 00:39 05:15 WBC 14.0 H RBC 2.49 L Hgb 7.8 L Hct 22.4 L MCV 90.0 MCH 31.3 MCHC 34.8 RDW 14.2 Plt Count 325 MPV 10.4 Immature Gran % (Auto) Not Reportable Neut % (Auto) Not Reportable Lymph % (Auto) Not Reportable [place] % (Auto) Not Reportable Eos % (Auto) Not Reportable Baso % (Auto) Not Reportable Lymph # (Auto) Not Reportable [place] # (Auto) Not Reportable Eos # (Auto) Not Reportable Baso # (Auto) Not Reportable Abs Immat Gran (auto) Not Reportable Absolute Neuts (auto) Not Reportable Absolute Nucleated RBC Not Reportable Total Counted 100 Neutrophils % (Manual) 72 Band Neutrophils % 11 H Lymphocytes % (Manual) 8.0 L Monocytes % (Manual) 2 L Eosinophils % (Manual) 3 Basophils % (Manual) 1 Metamyelocytes % 2 Myelocytes % 1 Nucleated RBC % Not Reportable Abs Neuts (Manual) 11.62 H Abs Lymphs (Manual) 1.12 Abs Monocytes (Manual) 0.28 Absolute Eos (Manual) 0.42 Abs Basophils (Manual) 0.14 H Platelet Estimate Adequate Anisocytosis 1+ Target Cells 1+ Schistocytes None seen PT 31.1 H D INR 2.9 APTT 154.7 H 126.1 H Cancelled Sodium 130 L Potassium 3.0 L Chloride 94 L Carbon Dioxide 25 Anion Gap 11 BUN 35 H Creatinine 8.00 H Estim Creat Clear Calc 7 Estimated GFR 6 L Glucose 142 H Calcium 8.7 Phosphorus 4.1 Magnesium 2.1 Total Bilirubin 0.6 AST 27 ALT 46 H Alkaline Phosphatase 109 Total Protein 6.0 L Albumin 2.8 L 07/18/24 08:26 WBC RBC Hgb Hct MCV MCH MCHC RDW Plt Count MPV Immature Gran % (Auto) Neut % (Auto) Lymph % (Auto) [place] % (Auto) Eos % (Auto) Baso % (Auto) Lymph # (Auto) [place] # (Auto) Eos # (Auto) Baso # (Auto) Abs Immat Gran (auto) Absolute Neuts (auto) Absolute Nucleated RBC Total Counted Neutrophils % (Manual) Band Neutrophils % Lymphocytes % (Manual) Monocytes % (Manual) Eosinophils % (Manual) Basophils % (Manual) Metamyelocytes % Myelocytes % Nucleated RBC % Abs Neuts (Manual) Abs Lymphs (Manual) Abs Monocytes (Manual) Absolute Eos (Manual) Abs Basophils (Manual) Platelet Estimate Anisocytosis Target Cells Schistocytes PT INR APTT 112.2 H Sodium Potassium Chloride Carbon Dioxide Anion Gap BUN Creatinine Estim Creat Clear Calc Estimated GFR Glucose Calcium Phosphorus Magnesium Total Bilirubin AST ALT Alkaline Phosphatase Total Protein Albumin
--- NOTE | 2024-07-18 18:47 | P.PNIM_ITS ---
Progress Note: A&P Assessment and Plan (1) Septic shock: Code(s): A41.9 - Sepsis, unspecified organism; R65.21 - Severe sepsis with septic shock Status: Acute Assessment and Plan: Patient presented with fevers and chills and found to be HoTN with AFib/RVR on 07/14. Patient was in the ER on 07/05 and was diagnosed with UTI and sent home on Bactrim (UCx grew EColi that was relatively pansensitive including Bactrim) Patient was given 3 L IV fluid bolus and also metoprolol for the AFib/RVR but this worsened the HoTN. Cardioversion was unsuccessful. Femoral central line was inserted and she was started on phenylephrine for BP support. Cultures obtained and she was started on Vancomycin and Cefepime. CTA Ch/A/P showing complex splenic cystic lesion c/w hematoma, abscess or neoplasm; moderate bilateral renal atrophy with bilateral nephrolithiasis including a 9mm stone in the Rt UPJ without hydronephrosis and extensive diverticulosis. BCx (07/14) growing EColi with similar resistance pattern from UCx on 07/05. 2nd set BCx proprionibaterium acne, EColi and a 3rd bacteria. UCx from 07/14 negative. Able to come off phenylephrine 07/15. WBC peaked at 20K but trending down but with 11% bandemia today. Vanco stopped 07/17. No abd pain to suggest peritonitis. Suspect EColi bacteremia related to UTI. Clinically much better and responding appropriately to abx. No abd pain, fever or climbing white count to suggest obstructing uropathy or splenic abscess but her BP is still soft despite other areas improving. No fat stranding noted around kidney to suggest infected stone either. Urology consult. Continue cefepime (07/14). (2) Atrial fibrillation with rapid ventricular response: Code(s): I48.91 - Unspecified atrial fibrillation Status: Acute Assessment and Plan: Patient has a history of AFib and is on metoprolol 100mg bid and Coumadin at home She has been cardioverted in the past (Jul 2021) that was unsuccessful. She presented with AFib RVR. EKG showing AFib/RVR, PVCs, ST-T wave changes in the inferior and lateral leads. Metoprolol IV given without benefit and worsened her HoTN. She underwent synchronous cardioversion which was unsuccessful. She was given amiodarone bolus and started on amiodarone infusion. Echo showing LV systolic dysfxn with EF 20-25%, global hypokinesis, Biatrial enlargement, mod-severe TR, mild pHTN, mod-severe MR. HR persistently elevated since admission. Metoprolol added back at full dose on 07/16/24 but BP too soft to tolerate this now. Cardiology consulted and patient given Digoxin x1 today and changed to oral Amiodarone. Her INR was supratherapeutic at >20. She received Vit K IV and FFP. INR dropped to 1.8 so Heparin drip started. INR 2.9 today so heapri stopped and Coumadin resumed. Continue central line for now since poor IV access and patient not fully optimized. (3) Bacteremia: Code(s): R78.81 - Bacteremia Status: Acute Assessment and Plan: As above (4) UTI (urinary tract infection): Code(s): N39.0 - Urinary tract infection, site not specified Status: Acute Assessment and Plan: UA on admission still concerning for UTI. UCx from 07/05 showing EColi that is relatively napier-sensitive. UCx 07/14 negative. Continue antibiotics as above (5) Supratherapeutic INR: Code(s): R79.1 - Abnormal coagulation profile Status: Acute Assessment and Plan: Patient was on Bactrim for UTI for 7 days and with septic shock which probably caused her PT/INR to be elevated INR > 20 and PT was > 120. Coumadin held and was treated with 2 units of FFP and vitamin K IV on 07/15 INR dropped to 1.8 so Heparin drip started. Hgb stable in the 7-8 range and probably chronic (Hgb 9-10 in 2021 but nothing since). INR 2.9 today so Heparin stopped and Coumadin resumed at lower dose. Daily INR. (6) Cardiomyopathy: Code(s): I42.9 - Cardiomyopathy, unspecified Status: Acute Assessment and Plan: Echocardiogram from July 2021 showed an EF of 20-25%. She takes Lasix, losartan and metoprolol tartrate at home. Echo as above. Life vest was ordered in 2021. Does not have ICD in place. EKG showing QRS at 108 Will have limited ability to treat her with GDMT due to end-stage renal disease on peritoneal dialysis Etiology of her CMP is unclear. Ablation with PM being considered. Use PD to control fluid status. (7) End-stage renal disease on peritoneal dialysis: Code(s): N18.6 - End stage renal disease; Z99.2 - Dependence on renal dialysis Status: Acute Assessment and Plan: Patient with ESRD on peritoneal dialysis Nephrology consulted and appreciate their input Continue PD per Nephrology (8) Hypertension: Code(s): I10 - Essential (primary) hypertension Status: Chronic Assessment and Plan: History of hypertension As above. (9) Anemia: Code(s): D64.9 - Anemia, unspecified Status: Chronic Assessment and Plan: Hgb in 2021 was 9-10 range. Hgb here was 8.8 and remained relatively stable in the 7-8 range. No active bleeding noted B12 and folate levels normal. Iron studies consistent with anemia of chronic dis ease. Suspect she is at baseline. GI consulted and appreciate their input. Follow and transfuse to a stable Hgb. (10) Hypothyroidism: Code(s): E03.9 - Hypothyroidism, unspecified Status: Acute Assessment and Plan: TSH 6.1. Continue levothyroxine. Plan DVT prophylaxis:Coumadin Code Status: Full code Subjective Date/time seen: 07/18/24 18:47 Interval history: 63yo female with anemia of chronic disease, ESRD on PD and AFib on warfarin who presents with low blood pressure and fever. Assuming care. Chart reviewed. She feels much better. Eating better today. Tolerated PD last night. No CP or SOB. Exam Narrative: AF 98.4 99/71 130 23 93% ra Gen - NARD lying semi-recumbent in bed Chest - decreased BS in the bases o/w clear. CV - irregularly irregular and tachycardic. Tele showing AFib/RVR Abd - Soft, obese, NT, +BS. PD catheter being accessed for dialysis Ext - No pedal edema. Left femoral line in place Neuro - Alert and appropriate Psych - Nml mood and affect Skin - Warm and dry Objective Data Vital Signs Vital Signs: Vital Signs - 24 hr 07/17/24 20:00 07/17/24 20:00 07/17/24 20:00 Temperature Pulse Rate 129 H 127 H Respiratory Rate Blood Pressure 124/93 H Pulse Oximetry Oxygen Delivery Room Air 07/17/24 20:06 07/17/24 21:00 07/17/24 21:00 Temperature 98.4 F Pulse Rate 129 H 126 H 107 H Respiratory Rate 29 H Blood Pressure 124/93 H 100/72 Pulse Oximetry 96 Oxygen Delivery 07/17/24 21:00 07/17/24 22:00 07/17/24 22:00 Temperature Pulse Rate 107 H 120 H 120 H Respiratory Rate Blood Pressure 100/72 131/91 H Pulse Oximetry Oxygen Delivery 07/18/24 00:00 07/18/24 00:00 07/18/24 00:00 Temperature Pulse Rate 107 H 97 Respiratory Rate Blood Pressure 99/84 L Pulse Oximetry Oxygen Delivery Room Air 07/18/24 00:01 07/18/24 02:00 07/18/24 02:00 Temperature 98.5 F Pulse Rate 107 H 97 97 Respiratory Rate 20 16 Blood Pressure 99/84 L 95/72 L 95/72 L Pulse Oximetry 98 99 Oxygen Delivery 07/18/24 02:00 07/18/24 04:00 07/18/24 04:00 Temperature 97.9 F Pulse Rate 97 106 H Respiratory Rate 17 Blood Pressure 109/86 Pulse Oximetry 98 Oxygen Delivery Room Air 07/18/24 04:00 07/18/24 04:00 07/18/24 06:00 Temperature Pulse Rate 106 H 100 104 H Respiratory Rate Blood Pressure 109/86 102/72 Pulse Oximetry Oxygen Delivery 07/18/24 06:00 07/18/24 06:00 07/18/24 08:00 Temperature Pulse Rate 104 H 104 H Respiratory Rate 17 Blood Pressure 102/72 Pulse Oximetry 95 Oxygen Delivery Room Air 07/18/24 08:00 07/18/24 08:00 07/18/24 08:06 Temperature 97.6 F 98.4 F Pulse Rate 103 H 108 H 104 H Respiratory Rate 15 17 Blood Pressure 106/69 102/72 Pulse Oximetry 99 Oxygen Delivery 07/18/24 08:21 07/18/24 08:30 07/18/24 08:30 Temperature Pulse Rate 121 H 124 H 124 H Respiratory Rate Blood Pressure 106/69 106/69 Pulse Oximetry Oxygen Delivery 07/18/24 10:00 07/18/24 11:57 07/18/24 12:00 Temperature 98.1 F Pulse Rate 108 H 105 H 117 H Respiratory Rate 21 H Blood Pressure 105/85 Pulse Oximetry 98 Oxygen Delivery 07/18/24 12:00 07/18/24 12:00 07/18/24 14:00 Temperature Pulse Rate 116 H 108 H Respiratory Rate Blood Pressure Pulse Oximetry Oxygen Delivery Room Air 07/18/24 16:00 07/18/24 18:06 Temperature 98.4 F Pulse Rate 116 H 130 H Respiratory Rate 23 H Blood Pressure 99/71 L Pulse Oximetry 93 Oxygen Delivery Intake/Output Intake/Output: Intake & Output 07/15/24 07/16/24 07/17/24 07/18/24 23:59 23:59 23:59 23:59 Intake Total 2080.6 1289.0 1173.8 649.8 Output Total 100 322 875 4366 Balance 1980.6 693.0 346.8 -943.2 Meds/Results Medications: Active Medications Generic Name Dose Route Start Last Admin Trade Name Freq PRN Reason Stop Dose Admin Acetaminophen 650 mg 07/14/24 15:53 07/16/24 09:24 Acetaminophen 325 Mg Tablet PO 650 mg Q4H PRN Administration Mild Pain (1-3) or Fever Amiodarone HCl 400 mg 07/18/24 17:00 07/18/24 18:06 Amiodarone Hcl 200 Mg Tablet PO 400 mg BID KELLEN Administration Calcitriol 0.25 mcg 07/15/24 09:00 07/18/24 08:21 Calcitriol 0.25 Mcg Capsule PO 0.25 mcg DAILY KELLEN Administration Epoetin Ab-epbx 10,000 units 07/17/24 09:00 07/17/24 08:14 Epoetin Ab-Epbx 10,000 Units/Ml Vial SUB-Q 10,000 units TUTHSA@09 KELLEN Administration Gentamicin Sulfate 1 applic 07/15/24 21:00 07/17/24 21:00 Gentamicin Sulfate 0.1% Cr 15 Gm Tube TOPICAL 1 applic QHS KELLEN Administration Cefepime HCl 1 gm in 50 mls @ 100 mls/hr 07/15/24 16:00 07/18/24 16:01 Maxipime 1 Gm/Ns 50 Ml IVPB 100 mls/hr Q24H KELLEN Administration Levothyroxine Sodium 25 mcg 07/15/24 06:30 07/18/24 06:10 Levothyroxine Sodium 25 Mcg Tablet PO 25 mcg DAILY@0630 KELLEN Administration Metoprolol Tartrate 100 mg 07/18/24 21:00 Metoprolol Tartrate 50 Mg Tab PO Q12HR [facility] Ondansetron HCl 4 mg 07/14/24 15:53 Ondansetron Inj 4 Mg/2 Ml Vial IV PUSH Q4H PRN Nausea Pantoprazole Sodium 40 mg 07/15/24 21:00 07/18/24 08:21 Pantoprazole Sodium Iv 40 Mg Vial IV PUSH 40 mg Q12HR KELLEN Administration Sodium Chloride 10 ml 07/15/24 14:00 07/18/24 14:11 Central Line Flush IV PUSH Not Given Q8HR KELLEN Sodium Chloride 20 ml 07/15/24 12:03 Central Line Flush IV PUSH PRN PRN after blood draws Warfarin Sodium 1.5 mg 07/18/24 17:00 07/18/24 18:06 Warfarin (*Pbkc) 1.5 Mg Tablet PO 1.5 mg DAILY@1700 [facility] Administration Radiology Results: ITS Impressions Chest/Abdomen/Pelvis CT 07/14/24 14:45 IMPRESSION: 1. 8 cm complex cystic lesion within the spleen which could represent a hematoma, abscess or less likely neoplasm. 2. Tiny left pleural effusion with likely combination of atelectasis and mild pulmonary edema in the dependent lungs. 3. Moderate cardiomegaly with enlargement of the central pulmonary arteries consistent with pulmonary arterial hypertension. 4. Moderate bilateral renal atrophy with bilateral nephrolithiasis including a 9 mm stone at the right ureteropelvic junction without hydronephrosis which could reflect poor renal function. 5. Small to moderate amount of ascites likely related to peritoneal dialysis with dialysis catheter in the pelvis. 6. Extensive diverticulosis. Chest X-Ray 07/18/24 05:50 Impression: Small left pleural effusion with minimal bibasilar pulmonary edema/atelectasis. Stable cardiomegaly. Labs Labs: Laboratory Results - last 24 hr 07/18/24 07/18/24 07/18/24 00:39 05:15 08:26 WBC 14.0 H RBC 2.49 L Hgb 7.8 L Hct 22.4 L MCV 90.0 MCH 31.3 MCHC 34.8 RDW 14.2 Plt Count 325 MPV 10.4 Immature Gran % (Auto) Not Reportable Neut % (Auto) Not Reportable Lymph % (Auto) Not Reportable [place] % (Auto) Not Reportable Eos % (Auto) Not Reportable Baso % (Auto) Not Reportable Lymph # (Auto) Not Reportable [place] # (Auto) Not Reportable Eos # (Auto) Not Reportable Baso # (Auto) Not Reportable Abs Immat Gran (auto) Not Reportable Absolute Neuts (auto) Not Reportable Absolute Nucleated RBC Not Reportable Total Counted 100 Neutrophils % (Manual) 72 Band Neutrophils % 11 H Lymphocytes % (Manual) 8.0 L Monocytes % (Manual) 2 L Eosinophils % (Manual) 3 Basophils % (Manual) 1 Metamyelocytes % 2 Myelocytes % 1 Nucleated RBC % Not Reportable Abs Neuts (Manual) 11.62 H Abs Lymphs (Manual) 1.12 Abs Monocytes (Manual) 0.28 Absolute Eos (Manual) 0.42 Abs Basophils (Manual) 0.14 H Platelet Estimate Adequate Anisocytosis 1+ Target Cells 1+ Schistocytes None seen PT 31.1 H D INR 2.9 APTT 126.1 H Cancelled 112.2 H Sodium 130 L Potassium 3.0 L Chloride 94 L Carbon Dioxide 25 Anion Gap 11 BUN 35 H Creatinine 8.00 H Estim Creat Clear Calc 7 Estimated GFR 6 L Glucose 142 H Calcium 8.7 Phosphorus 4.1 Magnesium 2.1 Total Bilirubin 0.6 AST 27 ALT 46 H Alkaline Phosphatase 109 Total Protein 6.0 L Albumin 2.8 L
[2024-07-18] MEDS: GENTAMICIN SULFATE 0.1% CR 15 GM TUBE 1 APPLIC TOPICAL ×2 (22:06)
[2024-07-19] VITALS (26 sets, daily range): BP systolic 67–128; BP diastolic 45–95; PULSE 90–143; RESP 13–26; TEMP 36.4–37.5; O2SAT 96–100
[2024-07-19] MEDS: CENTRAL LINE FLUSH 10 ML IV PUSH ×3 (05:29→20:15)
[2024-07-19] MEDS: LEVOTHYROXINE SODIUM 25 MCG TABLET PO (05:29)
[2024-07-19 05:48] LABS: Hemoglobin 8.3 g/dL (12.0-15.0); Mean Corpuscular HGB Conc 34.6 g/dl (32-36); Mean Corpuscular Hemoglobin 30.7 pg (26-34); Mean Corpuscular Volume 88.9 fl (80-100); Mean Platelet Volume 10.4 fl (7.4-10.4); Red Cell Distribution Width 14.4 % (11.5-14.5); White Blood Count 13.3 K/mm3 (4.5-10.0)
[2024-07-19 05:57] LABS: INR 3.4; Prothrombin Time 35.2 Seconds (11.1-14.7)
[2024-07-19 06:13] LABS: Alanine Aminotransferase 44 U/L (6-35); Albumin Level 2.7 g/dL (3.5-5.1); Alkaline Phosphatase 103 U/L (38-126); Anion Gap 12 mmol/L (4-12); Aspartate Amino Transferase 29 U/L (14-36); Bilirubin,Total 0.6 mg/dL (0.2-1.3); Blood Urea Nitrogen 38 mg/dL (7-17); Carbon Dioxide 25 mmol/L (22-30); Chloride 96 mmol/L (98-107); Estimated CRCL calculation 6 ml/min; Estimated Glomerular Filt Rate 6; Glucose 120 mg/dL (65-110); Magnesium 2.1 mg/dL (1.6-2.3); Phosphorus 4.1 mg/dL (2.5-4.5); Sodium 133 mmol/L (137-145)
[2024-07-19 06:37] LABS: CRP 12.9 mg/dL (<1.0)
[2024-07-19 06:39] LABS: Band Neutrophils Percent 6 % (0-6); Eosinophils Absolute Manual 0.53 K/mm3 (0.02-0.50); Eosinophils Percent Manual 4 % (0-4); Lymphocytes Absolute Manual 1.06 K/mm3 (1.1-4.5); Lymphocytes Percent Manual 8 % (18-44); Monocytes Absolute Manual 0.13 K/mm3 (0.1-0.90); Monocytes Percent Manual 1 % (3-9); Neutrophils Absolute Manual 11.57 K/mm3 (1.7-7.2); Neutrophils Percent Manual 81 % (46-73); Total Cells Counted 100
[2024-07-19 06:40] LABS: Hypochromasia 1+; Platelet Estimate Adequate (Adequate); Polychromasia 1+; Schistocytes None Seen; Target Cells 2+; Tear Drop Cells 1+
[2024-07-19 06:41] LABS: Anisocytosis 1+
[2024-07-19] MEDS: AMIODARONE HCL 200 MG TABLET 400 MG PO (08:40)
[2024-07-19] MEDS: POTASSIUM CHLORIDE 20 MEQ ER TABLET 40 MEQ PO (08:40)
[2024-07-19] MEDS: calcitrioL 0.25 MCG CAPSULE PO (08:40)
[2024-07-19] MEDS: PANTOPRAZOLE SODIUM IV 40 MG VIAL IV PUSH (08:40)
[2024-07-19] MEDS: EPOETIN ALFA-EPBX 10,000 UNITS/ML VIAL 10000 UNITS SUB-Q (08:48)
--- NOTE | 2024-07-19 08:49 | PC.NURSE ---
Notified Dr. King of pt's BP of 81/53. New order to hold morning dose of Metoprolol, but may give PO Amiodarone
--- NOTE | 2024-07-19 10:03 | PM.IMPN ---
Progress Note: A&P Assessment and Plan (1) Septic shock: Code(s): A41.9 - Sepsis, unspecified organism; R65.21 - Severe sepsis with septic shock Status: Acute Assessment and Plan: Patient presented with fevers and chills and found to be HoTN with AFib/RVR on 07/14. Patient was in the ER on 07/05 and was diagnosed with UTI and sent home on Bactrim (UCx grew EColi that was relatively pansensitive including Bactrim) Patient was given 3 L IV fluid bolus and also metoprolol for the AFib/RVR but this worsened the HoTN. Cardioversion was unsuccessful. Femoral central line was inserted and she was started on phenylephrine for BP support. Cultures obtained and she was started on Vancomycin and Cefepime. CTA Ch/A/P showing complex splenic cystic lesion c/w hematoma, abscess or neoplasm; moderate bilateral renal atrophy with bilateral nephrolithiasis including a 9mm stone in the Rt UPJ without hydronephrosis and extensive diverticulosis. BCx (07/14) growing EColi with similar resistance pattern from UCx on 07/05. 2nd set BCx proprionibaterium acne, EColi and a 3rd bacteria. UCx from 07/14 negative. MRSA nasal swab negative. Influenza, RSV and COVID PCR negative. Able to come off phenylephrine 07/15. WBC peaked at 20K but trending down. CRP 15 -> 13. Vanco stopped 07/17. No abd pain and peritoneal fluid not consistent with peritonitis. Suspect EColi bacteremia related to UTI. Clinically much better and responding appropriately to abx except with persistent HoTN. Continue cefepime (07/14). (2) Ureterolithiasis: Code(s): N20.1 - Calculus of ureter Status: Acute Assessment and Plan: CT as above. No abd pain, fever or climbing white count to suggest obstructing uropathy or splenic abscess but her BP is still soft despite other areas improving. No fat stranding noted around kidney to suggest infected stone either. Urology consulted and discussed. He felt the stone was more impacted in the right ureter as opposed to UPJ location. Weighed options to proceed with stent placement and risks/benefits discussed. Unclear if a stent will improve her condition bu can not ignore ureterolithiasis in a patient with UTI, bacteremia and septic shock. Plan for stent placement today. (3) Atrial fibrillation with rapid ventricular response: Code(s): I48.91 - Unspecified atrial fibrillation Status: Acute Assessment and Plan: Patient has a history of AFib and is on metoprolol 100mg bid and Coumadin at home She has been cardioverted in the past (Jul 2021) that was unsuccessful. She presented with AFib RVR. EKG showing AFib/RVR, PVCs, ST-T wave changes in the inferior and lateral leads. Metoprolol IV given without benefit and worsened her HoTN. She underwent synchronous cardioversion which was unsuccessful. She was given amiodarone bolus and started on amiodarone infusion. Echo showing LV systolic dysfxn with EF 20-25%, global hypokinesis, Biatrial enlargement, mod-severe TR, mild pHTN, mod-severe MR. HR persistently elevated since admission. Metoprolol added back at full dose on 07/16/24 but BP too soft to tolerate this now. Cardiology consulted and patient given Digoxin x1 1and changed to oral Amiodarone on 07/18. Her INR was supratherapeutic at >20. She received Vit K IV and FFP. INR dropped to 1.8 so Heparin drip started. INR better so Coumadin resumed. Continue central line for now since poor IV access and patient not fully optimized. (4) Bacteremia: Code(s): R78.81 - Bacteremia Status: Acute Assessment and Plan: As above (5) UTI (urinary tract infection): Code(s): N39.0 - Urinary tract infection, site not specified Status: Acute Assessment and Plan: UA on admission still concerning for UTI. UCx from 07/05 showing EColi that is relatively napier-sensitive. UCx 07/14 negative. BCx sensitivity panel similar to UCx from 07/05 Continue antibiotics as above (6) Supratherapeutic INR: Code(s): R79.1 - Abnormal coagulation profile Status: Acute Assessment and Plan: Patient was on Bactrim for UTI for 7 days and with septic shock which probably caused her PT/INR to be elevated INR > 20 and PT > 120. Coumadin held and was given 2 units of FFP and vitamin K IV on 07/15 INR dropped to 1.8 so Heparin drip started. Hgb stable in the 7-8 range and probably chronic (Hgb 9-10 in 2021 but nothing since). INR better so Heparin stopped and Coumadin resumed at lower dose. INR 3.4. Hold coumadin. Daily INR. (7) Cardiomyopathy: Code(s): I42.9 - Cardiomyopathy, unspecified Status: Acute Assessment and Plan: Echocardiogram from July 2021 showed an EF of 20-25%. She takes Lasix, losartan and metoprolol tartrate at home. Echo as above. Life vest was ordered in 2021. Does not have ICD in place. EKG showing QRS at 108 Will have limited ability to treat her with GDMT due to end-stage renal disease on peritoneal dialysis Etiology of her CMP is unclear. Ablation with PM being considered. Use PD to control fluid status. (8) End-stage renal disease on peritoneal dialysis: Code(s): N18.6 - End stage renal disease; Z99.2 - Dependence on renal dialysis Status: Acute Assessment and Plan: Patient with ESRD on peritoneal dialysis Nephrology consulted and appreciate their input Continue PD per Nephrology (9) Hypertension: Code(s): I10 - Essential (primary) hypertension Status: Chronic Assessment and Plan: History of hypertension As above. (10) Anemia: Code(s): D64.9 - Anemia, unspecified Status: Chronic Assessment and Plan: Hgb in 2021 was 9-10 range. Hgb here was 8.8 and remained relatively stable in the 7-8 range. No active bleeding noted B12 and folate levels normal. Iron studies consistent with anemia of chronic disease. Suspect she is at baseline. GI consulted and appreciate their input. Follow and transfuse to a stable Hgb. (11) Hypothyroidism: Code(s): E03.9 - Hypothyroidism, unspecified Status: Acute Assessment and Plan: TSH 6.1. Continue levothyroxine. Plan DVT prophylaxis: INR therapeutic Code Status: Full code Subjective Date/time seen: 07/19/24 10:03 Interval history: 63yo female with anemia of chronic disease, ESRD on PD and AFib on warfarin who presents with low blood pressure and fever. Patient still HoTN at times. She normally has hypertension. She feels well. No recent complaints of right sided abdominal or back pain. No CP or SOB. Appetite has improved. Exam Narrative: AF 97.7 81/53 112 26 98% ra Gen - NARD lying semi-recumbent in bed Chest - bibasilar inspir crackles o/w clear. CV - irregularly irregular and tachycardic. Tele showing AFib/RVR Abd - Soft, obese, NT, +BS. PD catheter site clean and dry. Back - no CVA tenderness Ext - No pedal edema. Left femoral line in place Neuro - Alert and appropriate Psych - Nml mood and affect Skin - Warm and dry Objective Data Vital Signs Vital Signs: Vital Signs - 24 hr 07/18/24 11:57 07/18/24 12:00 07/18/24 12:00 Temperature 98.1 F Pulse Rate 105 H 117 H 116 H Respiratory Rate 21 H Blood Pressure 105/85 Pulse Oximetry 98 Oxygen Delivery 07/18/24 12:00 07/18/24 14:00 07/18/24 16:00 Temperature 98.4 F Pulse Rate 108 H 116 H Respiratory Rate 23 H Blood Pressure 99/71 L Pulse Oximetry 93 Oxygen Delivery Room Air 07/18/24 16:00 07/18/24 16:00 07/18/24 18:00 Temperature Pulse Rate 117 H 124 H Respiratory Rate Blood Pressure Pulse Oximetry Oxygen Delivery Room Air 07/18/24 18:06 07/18/24 18:06 07/18/24 20:00 Temperature Pulse Rate 130 H 130 H Respiratory Rate Blood Pressure 92/65 L Pulse Oximetry Oxygen Delivery Room Air 07/18/24 20:00 07/18/24 20:58 07/18/24 22:00 Temperature 98.5 F Pulse Rate 126 H 113 H 117 H Respiratory Rate 18 Blood Pressure 105/79 Pulse Oximetry 100 Oxygen Delivery 07/18/24 22:04 07/18/24 22:05 07/19/24 00:00 Temperature Pulse Rate 118 H 107 H Respiratory Rate 16 Blood Pressure 112/87 Pulse Oximetry 100 Oxygen Delivery Room Air 07/19/24 00:00 07/19/24 00:00 07/19/24 02:00 Temperature 98.4 F Pulse Rate 104 H 90 105 H Respiratory Rate 13 Blood Pressure 94/81 L Pulse Oximetry 100 Oxygen Delivery 07/19/24 04:00 07/19/24 04:00 07/19/24 04:00 Temperature 98.5 F Pulse Rate 106 H 109 H Respiratory Rate 16 Blood Pressure 90/48 L Pulse Oximetry 97 Oxygen Delivery Room Air 07/19/24 06:00 07/19/24 07:15 07/19/24 08:00 Temperature 97.7 F Pulse Rate 102 H 116 H 126 H Respiratory Rate 22 H 26 H Blood Pressure 124/62 81/53 L Pulse Oximetry 98 Oxygen Delivery 07/19/24 08:40 Temperature Pulse Rate 112 H Respiratory Rate Blood Pressure Pulse Oximetry Oxygen Delivery Intake/Output Intake/Output: Intake & Output 07/16/24 07/17/24 07/18/24 07/19/24 23:59 23:59 23:59 23:59 Intake Total 1289.0 1173.8 1599.8 100 Output Total 593 991 5143 1323 Balance 693.0 346.8 6.8 -1223 Meds/Results Medications: Active Medications Generic Name Dose Route Start Last Admin Trade Name Freq PRN Reason Stop Dose Admin Acetaminophen 650 mg 07/14/24 15:53 07/16/24 09:24 Acetaminophen 325 Mg Tablet PO 650 mg Q4H PRN Administration Mild Pain (1-3) or Fever Amiodarone HCl 400 mg 07/18/24 17:00 07/19/24 08:40 Amiodarone Hcl 200 Mg Tablet PO 400 mg BID KELLEN Administration Calcitriol 0.25 mcg 07/15/24 09:00 07/19/24 08:40 Calcitriol 0.25 Mcg Capsule PO 0.25 mcg DAILY KELLEN Administration Epoetin Ab-epbx 10,000 units 07/17/24 09:00 07/19/24 08:48 Epoetin Ab-Epbx 10,000 Units/Ml Vial SUB-Q 10,000 units TUTHSA@09 KELLEN Administration Gentamicin Sulfate 1 applic 07/15/24 21:00 07/18/24 22:06 Gentamicin Sulfate 0.1% Cr 15 Gm Tube TOPICAL 1 applic QHS KELLEN Administration Cefepime HCl 1 gm in 50 mls @ 100 mls/hr 07/15/24 16:00 07/18/24 16:31 Maxipime 1 Gm/Ns 50 Ml IVPB Infused Q24H KELLEN Infusion Levothyroxine Sodium 25 mcg 07/15/24 06:30 07/19/24 05:29 Levothyroxine Sodium 25 Mcg Tablet PO 25 mcg DAILY@0630 KELLEN Administration Metoprolol Tartrate 100 mg 07/18/24 21:00 07/19/24 08:48 Metoprolol Tartrate 50 Mg Tab PO Not Given Q12HR [facility] Ondansetron HCl 4 mg 07/14/24 15:53 Ondansetron Inj 4 Mg/2 Ml Vial IV PUSH Q4H PRN Nausea Pantoprazole Sodium 40 mg 07/15/24 21:00 07/19/24 08:40 Pantoprazole Sodium Iv 40 Mg Vial IV PUSH 40 mg Q12HR KELLEN Administration Sodium Chloride 10 ml 07/15/24 14:00 07/19/24 05:29 Central Line Flush IV PUSH 10 ml Q8HR KELLEN Administration Sodium Chloride 20 ml 07/15/24 12:03 Central Line Flush IV PUSH PRN PRN after blood draws Warfarin Sodium 1.5 mg 07/18/24 17:00 07/18/24 18:06 Warfarin (*Pbkc) 1.5 Mg Tablet PO 1.5 mg DAILY@1700 KELLEN Administration Radiology Results: ITS Impressions Chest/Abdomen/Pelvis CT 07/14/24 14:45 IMPRESSION: 1. 8 cm complex cystic lesion within the spleen which could represent a hematoma, abscess or less likely neoplasm. 2. Tiny left pleural effusion with likely combination of atelectasis and mild pulmonary edema in the dependent lungs. 3. Moderate cardiomegaly with enlargement of the central pulmonary arteries consistent with pulmonary arterial hypertension. 4. Moderate bilateral renal atrophy with bilateral nephrolithiasis including a 9 mm stone at the right ureteropelvic junction without hydronephrosis which could reflect poor renal function. 5. Small to moderate amount of ascites likely related to peritoneal dialysis with dialysis catheter in the pelvis. 6. Extensive diverticulosis. Chest X-Ray 07/18/24 05:50 Impression: Small left pleural effusion with minimal bibasilar pulmonary edema/atelectasis. Stable cardiomegaly. Labs Labs: Laboratory Results - last 24 hr 07/19/24 07/19/24 05:41 05:42 WBC 13.3 H RBC 2.70 L Hgb 8.3 L Hct 24.0 L MCV 88.9 MCH 30.7 MCHC 34.6 RDW 14.4 Plt Count TNP MPV 10.4 Immature Gran % (Auto) Not Reportable Neut % (Auto) Not Reportable Lymph % (Auto) Not Reportable [place] % (Auto) Not Reportable Eos % (Auto) Not Reportable Baso % (Auto) Not Reportable Lymph # (Auto) Not Reportable [place] # (Auto) Not Reportable Eos # (Auto) Not Reportable Baso # (Auto) Not Reportable Abs Immat Gran (auto) Not Reportable Absolute Neuts (auto) Not Reportable Absolute Nucleated RBC Not Reportable Total Counted 100 Neutrophils % (Manual) 81 H Band Neutrophils % 6 Lymphocytes % (Manual) 8 L Monocytes % (Manual) 1 L Eosinophils % (Manual) 4 Nucleated RBC % Not Reportable Abs Neuts (Manual) 11.57 H Abs Lymphs (Manual) 1.06 L Abs Monocytes (Manual) 0.13 Absolute Eos (Manual) 0.53 H Platelet Estimate Adequate Polychromasia 1+ Hypochromasia 1+ Anisocytosis 1+ Target Cells 2+ Tear Drop Cells 1+ Schistocytes None seen PT 35.2 H INR 3.4 Sodium 133 L Potassium 3.0 L Chloride 96 L Carbon Dioxide 25 Anion Gap 12 BUN 38 H Creatinine 8.50 H Estim Creat Clear Calc 6 Estimated GFR 6 L Glucose 120 H Calcium 9.0 Phosphorus 4.1 Magnesium 2.1 Total Bilirubin 0.6 AST 29 ALT 44 H Alkaline Phosphatase 103 C-Reactive Protein 12.9 H Total Protein 6.0 L Albumin 2.7 L
--- NOTE | 2024-07-19 10:17 | WPDURCON ---
Assessment and Plan Assessment and plan (1) Multiple renal calculi: Code(s): N20.0 - Calculus of kidney Status: Acute (2) Septic shock: Code(s): A41.9 - Sepsis, unspecified organism; R65.21 - Severe sepsis with septic shock Status: Acute (3) End-stage renal disease on peritoneal dialysis: Code(s): N18.6 - End stage renal disease; Z99.2 - Dependence on renal dialysis Status: Acute (4) Atrial fibrillation with RVR: Code(s): I48.91 - Unspecified atrial fibrillation Status: Acute Plan As outlined in history of present illness will proceed with cystoscopy, right retrograde pyelogram, right ureteral stent placement. Discussed with hospitalist, anesthesiologist, patient. All parties understand this may or may not improve her clinical situation. We all agree to move forward with the procedure. Urology Consult Note HPI Date Seen: 07/19/24 Requesting Physician: Stu Hu MD Primary Care Provider: UNKNOWN,DOCTOR Consult Narrative Narrative: Dory Lynn is a 63 year old female with multiple medical issues including cardiomyopathy he and chronic renal failure requiring dialysis. She is currently admitted the hospital and in the ICU for sepsis. She has a recent blood culture and urine culture which showed E coli with identical resistance patterns. She has been on IV antibiotics. Follow-up urine culture is negative but does not necessarily rule out untreated infection proximal to a stone noted on recent CT scan. I reviewed her CT scan personally. She has bilateral renal atrophy. She has bilateral nephrolithiasis. She has a 9 mm stone in her proximal right ureter distal to the UPJ. There is no hydronephrosis but this is complicated by the fact that she makes very little urine. She has history of hypertension as well as atrial fibrillation. Her atrial fibrillation is currently not rate controlled. They are not able to treat her with beta-tangela due to hypotension. I had an extensive conversation with the hospitalist. He does not have a good explanation to the patient's continued hypotension and wonders if there is untreated infection proximal to the stone leading to the issue. She is stable appearing in person but has abnormal vital signs with tachycardia and hypotension. I had extensive discussion with the hospitalist and the anesthesiologist. I think it is prudent that we rule out infection proximal to the stone. The only way to do this is with ureteral stenting to bypass the stone. I discussed this with the patient as well. I discussed there are risks to anesthesia given her multiple medical comorbidities. I also discussed that her hypotension may not be due to infection proximal to the stone and placement of ureteral stent may not ultimately sulfur hypotension and tachycardia. After an extensive discussion with all parties involved we do feel it is prudent to proceed. She did have breakfast this morning simple after weight appropriate padded time for anesthesia. The patient will be continued to be monitored in the ICU preprocedure and postprocedure. I did inform them that if she does have infection proximal to the stone that she may clinically deteriorate somewhat after instrumentation of the urinary tract and she will be monitored appropriately. Of note she is currently pain-free and afebrile. She continues to have an elevated white blood cell count, but has improved Review of Systems Review of Systems: All systems reviewed & are unremarkable except as noted in HPI and below PMFSH Past Medical History Medical History (Updated 07/19/24 @ 10:24 by Ruiz Garcia MD) Ureterolithiasis Afib Chronic kidney disease, unspecified Chronic kidney disease Acute renal failure Hypertension Surgical History Surgical History History of tonsillectomy History of Family History Family History Father CAD (coronary artery disease) Mother Hypertension Social History Social History Social History: The patient lives at home with her daughter and mother. 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 She used to smoke half a pack of cigarettes per day but quit smoking in 2018. She has 20 pack per year smoking history. She used to drink 1-2 beers a day every day but quit doing so several years ago. She now drinks 1 beer on rare occasion. She denies any illicit substance use. Primary care provider: Brandie Rhoades [employer]GAL [employer]APROFESSIONAL Code status: Full code Surrogate decision maker: Daughter Smoking packs per day: 0.5 Smoking cigarettes per day: 10.0 Years smoked: 40 Smoking pack-years: 20.00 Smoking status: Former smoker Alcohol intake: unknown Drinks per week: 1 Substance use: unknown Do You Feel Safe in your Home?: Yes Lack of Transportation: No Lack of Food: Never True Current Housing: I Have Housing Concerned About Future Housing: No Difficulty Paying Gas/Electric Bills: No Difficulty Paying for Meds: No Currently Unemployed: No Education: Decline to Answer Difficulty w/ Childcare or Family Care: No Spiritual care concerns: No Meds Home Medications and Allergies Home Medications ?Medication ?Instructions ?Recorded ?Confirmed ?Type metoprolol tartrate 50 mg tablet 100 mg (2 x 50 mg) PO BID #60 tabs 07/30/21 07/14/24 Rx warfarin 2.5 mg tablet 2.5 mg PO DAILY #30 tabs 07/30/21 07/14/24 Rx vitamin B complex-vitamin C-folic 1 tablet PO DAILY #90 tabs 11/20/22 07/14/24 Rx acid 0.8 mg tablet (Nephro-Silvia) calcitriol 0.25 mcg capsule 0.25 mcg PO DAILY 07/14/24 07/14/24 History furosemide 80 mg tablet 80 mg PO BID 07/14/24 07/14/24 History gentamicin 0.1 % topical cream 1 applic topical DAILY 07/14/24 07/14/24 History levothyroxine 25 mcg tablet 25 mcg PO DAILY 07/14/24 07/14/24 History losartan 100 mg tablet 100 mg PO DAILY 07/14/24 07/14/24 History potassium chloride 10 mEq 10 meq PO DAILY 07/14/24 07/14/24 History tablet,extended release Allergies Allergy/AdvReac Type Severity Reaction Status Date / Time PHILIP Inhibitors Allergy Severe Swelling Verified 07/05/24 12:01 of Lip/Tongue/Throat azithromycin Allergy Severe Dyspnea / Verified 07/05/24 12:01 SOB Vital Signs Vital Signs - 24 hr 07/18/24 11:57 07/18/24 12:00 07/18/24 12:00 Temperature 98.1 F Pulse Rate 105 H 117 H 116 H Respiratory Rate 21 H Blood Pressure 105/85 Pulse Oximetry 98 Oxygen Delivery 07/18/24 12:00 07/18/24 14:00 07/18/24 16:00 Temperature 98.4 F Pulse Rate 108 H 116 H Respiratory Rate 23 H Blood Pressure 99/71 L Pulse Oximetry 93 Oxygen Delivery Room Air 07/18/24 16:00 07/18/24 16:00 07/18/24 18:00 Temperature Pulse Rate 117 H 124 H Respiratory Rate Blood Pressure Pulse Oximetry Oxygen Delivery Room Air 07/18/24 18:06 07/18/24 18:06 07/18/24 20:00 Temperature Pulse Rate 130 H 130 H Respiratory Rate Blood Pressure 92/65 L Pulse Oximetry Oxygen Delivery Room Air 07/18/24 20:00 07/18/24 20:58 07/18/24 22:00 Temperature 98.5 F Pulse Rate 126 H 113 H 117 H Respiratory Rate 18 Blood Pressure 105/79 Pulse Oximetry 100 Oxygen Delivery 07/18/24 22:04 07/18/24 22:05 07/19/24 00:00 Temperature Pulse Rate 118 H 107 H Respiratory Rate 16 Blood Pressure 112/87 Pulse Oximetry 100 Oxygen Delivery Room Air 07/19/24 00:00 07/19/24 00:00 07/19/24 02:00 Temperature 98.4 F Pulse Rate 104 H 90 105 H Respiratory Rate 13 Blood Pressure 94/81 L Pulse Oximetry 100 Oxygen Delivery 07/19/24 04:00 07/19/24 04:00 07/19/24 04:00 Temperature 98.5 F Pulse Rate 106 H 109 H Respiratory Rate 16 Blood Pressure 90/48 L Pulse Oximetry 97 Oxygen Delivery Room Air 07/19/24 06:00 07/19/24 07:15 07/19/24 08:00 Temperature 97.7 F Pulse Rate 102 H 116 H 126 H Respiratory Rate 22 H 26 H Blood Pressure 124/62 81/53 L Pulse Oximetry 98 Oxygen Delivery 07/19/24 08:40 Temperature Pulse Rate 112 H Respiratory Rate Blood Pressure Pulse Oximetry Oxygen Delivery Exam Const: General: cooperative, comfortable and no acute distress; No anxious or diaphoretic Nutritional Appearance: average body habitus and well nourished Orientation/consciousness: patient oriented x3 Limitations: no limitations and altered mental status HENMT: Head: normal to inspection Eyes: General: appearance normal, both eyes and all related structures Neck: Neck: normal visual inspection Chest: Chest palpation & inspection: normal inspection of the chest Resp: Effort & Inspection: normal respiratory effort, able to speak in complete sentences and no cough GI: Inspection: normal to inspection Back/Spine/Pelvis: Back: no CVA tenderness Skin: General skin exam: normal color, no rashes or lesions noted and elasticity normal Neuro: General: patient oriented x3 and moves all extremities Extrem: General: normal to inspection and full ROM Psych: Appearance: grossly normal Results Labs 07/19/24 05:41 07/19/24 05:42 Labs: Short CBC 07/19/24 Range/Units 05:41 WBC 13.3 H (4.5-10.0) K/mm3 Hgb 8.3 L (12.0-15.0) g/dL Hct 24.0 L (37.0-47.0) % Plt Count TNP BMP 07/19/24 05:42 Sodium 133 L Potassium 3.0 L Chloride 96 L Carbon Dioxide 25 BUN 38 H Creatinine 8.50 H Glucose 120 H Calcium 9.0 Liver Function 07/19/24 Range/Units 05:42 Total Bilirubin 0.6 (0.2-1.3) mg/dL AST 29 (14-36) U/L ALT 44 H (6-35) U/L Alkaline Phosphatase 103 (38-126) U/L Albumin 2.7 L (3.5-5.1) g/dL Imaging My impression: I reviewed her CT scan myself. Bilateral nephrolithiasis. Large stone in proximal right ureter distal to the ureteropelvic junction
--- NOTE | 2024-07-19 10:45 | PM.PNNEP ---
Progress Note: A&P Assessment and Plan (1) End stage renal disease: Code(s): N18.6 - End stage renal disease Status: Chronic Assessment and Plan: continue nightly CCPD no evidence of peritonitis by PD fluid analysis done in ER follow electrolytes, volume status, and clearance adjust PD prescription as needed (2) Septic shock: Code(s): A41.9 - Sepsis, unspecified organism; R65.21 - Severe sepsis with septic shock Status: Acute Assessment and Plan: resolving as noted by presentation with fever, chills, and hypotension along with Afib with RVR s/p 3L fluid resuscitation but remained hypotension hypotension worsened by use of IV metoprolol in ER (given in an attempt to control Afib with RVR) central line placed and started on vasopressors for persistent low BP has since been weaned off phenylephrine culture data noted: blood culture with E. coli and Proprionibacterium acnes urine culture with no growth (but urine culture from 07/05 with E. coli as well) follow trend of hemodynamics on antibiotics (3) Bacteremia: Code(s): R78.81 - Bacteremia Status: Acute Assessment and Plan: presumed source for sepsis/septic shock blood culture with E.coli and Proprionibacterium acnes suspected urinary source (see urine culture from 07/05) on antibiotics see #2 (4) UTI (urinary tract infection): Code(s): N39.0 - Urinary tract infection, site not specified Status: Acute Assessment and Plan: admission UA highly suggestive diagnosed with UTI ~ 10 days ago prior admission by recent ER visit urine culture at that time grew E. coli repeat urine culture (this admission) negative to date already on antibiotics (5) Atrial fibrillation with rapid ventricular response: Code(s): I48.91 - Unspecified atrial fibrillation Status: Acute Assessment and Plan: noted on presentation to ER known history attempts at rate control in ER with IV metoprolol failed (and resulted in worsening hypotension) failed attempted cardioversion in ER as well transitioning to oral amiodarone and warfarin continue rate control strategy and anticoagulation Cardiology following (6) Cardiomyopathy: Code(s): I42.9 - Cardiomyopathy, unspecified Status: Acute Assessment and Plan: known history: last echo from July 2021 with an EF of 20-25% repeat Echo noted (07/15/24): left ventricular systolic function estimated at 20-25%. grade III diastolic dysfunction moderate to severe tricuspid valve regurgitation. mild pulmonary hypertension, estimated pulmonary arterial systolic pressure is 53 mmHg. moderate to severe eccentric mitral valve regurgitation appears relatively compensated at this time Cardiology following (7) Anemia: Code(s): D64.9 - Anemia, unspecified Status: Chronic Assessment and Plan: due to ESRD and acute illness complicated by supratherapetic INR on presentation this was corrected with FFP and Vitamin K anemia studies with adequate iron, B12, and folate PRBC transfusion per protocol Retacrit while hospitalized follow trend of H/H (8) Hypertension: Code(s): I10 - Essential (primary) hypertension Status: Chronic Assessment and Plan: presented with hypotension and hemodynamic instability weaned off vasopressor therapy BP medications on hold due to soft BPs at this time consider midodrine (?) follow trend of hemodynamics Will continue to follow. Subjective Date/time seen: 07/19/24 10:45 Interval history: Follow-up for end stage renal disease on peritoneal dialysis. Tolerated peritoneal dialysis treatment overnight without any issues or problems (CCPD supervised and seen at 10:35AM); remains hemodynamically stable (although BP remains soft); heart rate under reasonable control; WBC still mildly elevated with significant left shift; noted Urology consultation and tentative plan for cystoscopy with possible stenting on assumption that large right stone is possible source of infection; otherwise, no apparent distress noted. Exam Narrative: General: WD/WN female in NAD Heart: IRRR and tachycardic; normal S1 and S2; no rub Lungs: clear anteriorly but decreased at bases Abdomen: soft, nontender, nondistended, positive bowel sounds Extremities: no cyanosis or clubbing; trace edema Skin: no nodules Objective Data Vital Signs Vital Signs: Vital Signs Temp Pulse Resp BP Pulse Ox O2 Del Method 07/19/24 10:00 117 H 07/19/24 08:40 112 H 07/19/24 08:00 126 H 07/19/24 08:00 112 H 26 H 98 Room Air 07/19/24 08:00 97.7 F 126 H 26 H 81/53 L 98 07/19/24 07:15 116 H 22 H 124/62 07/19/24 06:00 102 H 07/19/24 04:00 109 H 07/19/24 04:00 Room Air 07/19/24 04:00 98.5 F 106 H 16 90/48 L 97 07/19/24 02:00 105 H 07/19/24 00:00 90 07/19/24 00:00 98.4 F 104 H 13 94/81 L 100 07/19/24 00:00 Room Air 07/18/24 22:05 107 H 07/18/24 22:04 118 H 16 112/87 100 07/18/24 22:00 117 H 07/18/24 20:58 98.5 F 113 H 18 105/79 100 07/18/24 20:00 126 H 07/18/24 20:00 Room Air 07/18/24 18:06 130 H 92/65 L 07/18/24 18:06 130 H 07/18/24 18:00 124 H 07/18/24 16:00 Room Air 07/18/24 16:00 117 H 07/18/24 16:00 98.4 F 116 H 23 H 99/71 L 93 Intake/Output Intake/Output: Intake & Output 07/16/24 07/17/24 07/18/24 07/19/24 23:59 23:59 23:59 23:59 Intake Total 1289.0 1173.8 1599.8 340 Output Total 700 983 1503 1323 Balance 693.0 346.8 6.8 -983 Meds/Results Medications: Active Medications Generic Name Dose Route Start Last Admin Trade Name Freq PRN Reason Stop Dose Admin Acetaminophen 650 mg 07/14/24 15:53 07/16/24 09:24 Acetaminophen 325 Mg Tablet PO 650 mg Q4H PRN Administration Mild Pain (1-3) or Fever Amiodarone HCl 400 mg 07/18/24 17:00 07/19/24 08:40 Amiodarone Hcl 200 Mg Tablet PO 400 mg BID KELLEN Administration Calcitriol 0.25 mcg 07/15/24 09:00 07/19/24 08:40 Calcitriol 0.25 Mcg Capsule PO 0.25 mcg DAILY KELLEN Administration Epoetin Ba-epbx 10,000 units 07/17/24 09:00 07/19/24 08:48 Epoetin Ab-Epbx 10,000 Units/Ml Vial SUB-Q 10,000 units TUTHSA@09 [facility]LL[facility] Administration Gentamicin Sulfate 1 applic 07/15/24 21:00 07/18/24 22:06 Gentamicin Sulfate 0.1% Cr 15 Gm Tube TOPICAL 1 applic QHS [facility] Administration Cefepime HCl 1 gm in 50 mls @ 100 mls/hr 07/15/24 16:00 07/18/24 16:31 Maxipime 1 Gm/Ns 50 Ml IVPB Infused Q24H [facility] Infusion Sodium Chloride 500 mls @ 30 mls/hr 07/19/24 15:30 Normal Saline Iv IV CONT .[id number] [facility] Levothyroxine Sodium 25 mcg 07/15/24 06:30 07/19/24 05:29 Levothyroxine Sodium 25 Mcg Tablet PO 25 mcg DAILY@0630 [facility] Administration Metoprolol Tartrate 100 mg 07/18/24 21:00 07/19/24 08:48 Metoprolol Tartrate 50 Mg Tab PO Not Given Q12HR [facility] Midodrine 5 mg 07/19/24 10:30 07/19/24 14:14 Midodrine Hcl 2.5 Mg Tablet PO Not Given TID [facility] Ondansetron HCl 4 mg 07/14/24 15:53 Ondansetron Inj 4 Mg/2 Ml Vial IV PUSH Q4H PRN Nausea Ondansetron HCl 4 mg 07/19/24 15:25 Ondansetron Inj 4 Mg/2 Ml Vial IV PUSH ONCE PRN Nausea Pantoprazole Sodium 40 mg 07/15/24 21:00 07/19/24 08:40 Pantoprazole Sodium Iv 40 Mg Vial IV PUSH 40 mg Q12HR [facility] Administration Sodium Chloride 10 ml 07/15/24 14:00 07/19/24 14:14 Central Line Flush IV PUSH 10 ml Q8HR [facility] Administration Sodium Chloride 20 ml 07/15/24 12:03 Central Line Flush IV PUSH PRN PRN after blood draws Warfarin Sodium 1.5 mg 07/18/24 17:00 07/18/24 18:06 Warfarin (*Pbkc) 1.5 Mg Tablet PO 1.5 mg DAILY@1700 [facility] Administration Radiology Results: ITS Impressions Chest/Abdomen/Pelvis CT 07/14/24 14:45 IMPRESSION: 1. 8 cm complex cystic lesion within the spleen which could represent a hematoma, abscess or less likely neoplasm. 2. Tiny left pleural effusion with likely combination of atelectasis and mild pulmonary edema in the dependent lungs. 3. Moderate cardiomegaly with enlargement of the central pulmonary arteries consistent with pulmonary arterial hypertension. 4. Moderate bilateral renal atrophy with bilateral nephrolithiasis including a 9 mm stone at the right ureteropelvic junction without hydronephrosis which could reflect poor renal function. 5. Small to moderate amount of ascites likely related to peritoneal dialysis with dialysis catheter in the pelvis. 6. Extensive diverticulosis. Chest X-Ray 07/18/24 05:50 Impression: Small left pleural effusion with minimal bibasilar pulmonary edema/atelectasis. Stable cardiomegaly. Labs Labs: Laboratory Tests 07/19/24 05:41 07/19/24 05:42 Neutrophils % (Manual) 81 H Band Neutrophils % 6 PT 35.2 H INR 3.4 Calcium 9.0 Phosphorus 4.1 Magnesium 2.1 Total Bilirubin 0.6 AST 29 ALT 44 H Alkaline Phosphatase 103 C-Reactive Protein 12.9 H Total Protein 6.0 L Albumin 2.7 L
--- NOTE | 2024-07-19 10:45 | P.PNNP_ITS ---
Progress Note: A&P Assessment and Plan (1) End stage renal disease: Code(s): N18.6 - End stage renal disease Status: Chronic Assessment and Plan: * continue nightly CCPD * no evidence of peritonitis by PD fluid analysis done in ER * follow electrolytes, volume status, and clearance * adjust PD prescription as needed (2) Septic shock: Code(s): A41.9 - Sepsis, unspecified organism; R65.21 - Severe sepsis with septic shock Status: Acute Assessment and Plan: * resolving * as noted by presentation with fever, chills, and hypotension along with Afib with RVR * s/p 3L fluid resuscitation but remained hypotension * hypotension worsened by use of IV metoprolol in ER (given in an attempt to control Afib with RVR) * central line placed and started on vasopressors for persistent low BP * has since been weaned off phenylephrine * culture data noted: * blood culture with E. coli and Proprionibacterium acnes * urine culture with no growth (but urine culture from 07/05 with E. coli as well) * follow trend of hemodynamics * on antibiotics (3) Bacteremia: Code(s): R78.81 - Bacteremia Status: Acute Assessment and Plan: * presumed source for sepsis/septic shock * blood culture with E.coli and Proprionibacterium acnes * suspected urinary source (see urine culture from 07/05) * on antibiotics * see #2 (4) UTI (urinary tract infection): Code(s): N39.0 - Urinary tract infection, site not specified Status: Acute Assessment and Plan: * admission UA highly suggestive * diagnosed with UTI ~ 10 days ago prior admission by recent ER visit * urine culture at that time grew E. coli * repeat urine culture (this admission) negative to date * already on antibiotics (5) Atrial fibrillation with rapid ventricular response: Code(s): I48.91 - Unspecified atrial fibrillation Status: Acute Assessment and Plan: * noted on presentation to ER * known history * attempts at rate control in ER with IV metoprolol failed (and resulted in worsening hypotension) * failed attempted cardioversion in ER as well * transitioning to oral amiodarone and warfarin * continue rate control strategy and anticoagulation * Cardiology following (6) Cardiomyopathy: Code(s): I42.9 - Cardiomyopathy, unspecified Status: Acute Assessment and Plan: * known history: * last echo from July 2021 with an EF of 20-25% * repeat Echo noted (07/15/24): * left ventricular systolic function estimated at 20-25%. * grade III diastolic dysfunction * moderate to severe tricuspid valve regurgitation. * mild pulmonary hypertension, estimated pulmonary arterial systolic pressure is 53 mmHg. * moderate to severe eccentric mitral valve regurgitation * appears relatively compensated at this time * Cardiology following (7) Anemia: Code(s): D64.9 - Anemia, unspecified Status: Chronic Assessment and Plan: * due to ESRD and acute illness * complicated by supratherapetic INR on presentation * this was corrected with FFP and Vitamin K * anemia studies with adequate iron, B12, and folate * PRBC transfusion per protocol * Retacrit while hospitalized * follow trend of H/H (8) Hypertension: Code(s): I10 - Essential (primary) hypertension Status: Chronic Assessment and Plan: * presented with hypotension and hemodynamic instability * weaned off vasopressor therapy * BP medications on hold due to soft BPs at this time * consider midodrine (?) * follow trend of hemodynamics Will continue to follow. L Subjective Date/time seen: 07/19/24 10:45 Interval history: Follow-up for end stage renal disease on peritoneal dialysis. Tolerated peritoneal dialysis treatment overnight without any issues or problems (CCPD supervised and seen at 10:35AM); remains hemodynamically stable (although BP remains soft); heart rate under reasonable control; WBC still mildly elevated with significant left shift; noted Urology consultation and tentative plan for cystoscopy with possible stenting on assumption that large right stone is possible source of infection; otherwise, no apparent distress noted. Exam 2 Narrative: General: WD/WN female in NAD Heart: IRRR and tachycardic; normal S1 and S2; no rub Lungs: clear anteriorly but decreased at bases Abdomen: soft, nontender, nondistended, positive bowel sounds Extremities: no cyanosis or clubbing; trace edema Skin: no nodules Objective Data Vital Signs Vital Signs: Vital Signs Temp Pulse Resp BP Pulse Ox O2 Del Method 07/19/24 10:00 117 H 07/19/24 08:40 112 H 07/19/24 08:00 126 H 07/19/24 08:00 112 H 26 H 98 Room Air 07/19/24 08:00 97.7 F 126 H 26 H 81/53 L 98 07/19/24 07:15 116 H 22 H 124/62 07/19/24 06:00 102 H 07/19/24 04:00 109 H 07/19/24 04:00 Room Air 07/19/24 04:00 98.5 F 106 H 16 90/48 L 97 07/19/24 02:00 105 H 07/19/24 00:00 90 07/19/24 00:00 98.4 F 104 H 13 94/81 L 100 07/19/24 00:00 Room Air 07/18/24 22:05 107 H 07/18/24 22:04 118 H 16 112/87 100 07/18/24 22:00 117 H 07/18/24 20:58 98.5 F 113 H 18 105/79 100 07/18/24 20:00 126 H 07/18/24 20:00 Room Air 07/18/24 18:06 130 H 92/65 L 07/18/24 18:06 130 H 07/18/24 18:00 124 H 07/18/24 16:00 Room Air 07/18/24 16:00 117 H 07/18/24 16:00 98.4 F 116 H 23 H 99/71 L 93 Intake/Output Intake/Output: Intake & Output 07/16/24 07/17/24 07/18/24 07/19/24 23:59 23:59 23:59 23:59 Intake Total 1289.0 1173.8 1599.8 340 Output Total 826 167 4302 1323 Balance 693.0 346.8 6.8 -983 Meds/Results Medications: Active Medications Generic Name Dose Route Start Last Admin Trade Name Freq PRN Reason Stop Dose Admin Acetaminophen 650 mg 07/14/24 15:53 07/16/24 09:24 Acetaminophen 325 Mg Tablet PO 650 mg Q4H PRN Administration Mild Pain (1-3) or Fever Amiodarone HCl 400 mg 07/18/24 17:00 07/19/24 08:40 Amiodarone Hcl 200 Mg Tablet PO 400 mg BID KELLEN Administration Calcitriol 0.25 mcg 07/15/24 09:00 07/19/24 08:40 Calcitriol 0.25 Mcg Capsule PO 0.25 mcg DAILY [facility] Administration Epoetin Ab-epbx 10,000 units 07/17/24 09:00 07/19/24 08:48 Epoetin Ab-Epbx 10,000 Units/Ml Vial SUB-Q 10,000 units TUTHSA@09 [facility] Administration Gentamicin Sulfate 1 applic 07/15/24 21:00 07/18/24 22:06 Gentamicin Sulfate 0.1% Cr 15 Gm Tube TOPICAL 1 applic QHS [facility] Administration Cefepime HCl 1 gm in 50 mls @ 100 mls/hr 07/15/24 16:00 07/18/24 16:31 Maxipime 1 Gm/Ns 50 Ml IVPB Infused Q24H [facility] Infusion Sodium Chloride 500 mls @ 30 mls/hr 07/19/24 15:30 Normal Saline Iv IV CONT .[id number] [facility] Levothyroxine Sodium 25 mcg 07/15/24 06:30 07/19/24 05:29 Levothyroxine Sodium 25 Mcg Tablet PO 25 mcg DAILY@0630 [facility] Administration Metoprolol Tartrate 100 mg 07/18/24 21:00 07/19/24 08:48 Metoprolol Tartrate 50 Mg Tab PO Not Given Q12HR [facility] Midodrine 5 mg 07/19/24 10:30 07/19/24 14:14 Midodrine Hcl 2.5 Mg Tablet PO Not Given TID [facility] Ondansetron HCl 4 mg 07/14/24 15:53 Ondansetron Inj 4 Mg/2 Ml Vial IV PUSH Q4H PRN Nausea Ondansetron HCl 4 mg 07/19/24 15:25 Ondansetron Inj 4 Mg/2 Ml Vial IV PUSH ONCE PRN Nausea Pantoprazole Sodium 40 mg 07/15/24 21:00 07/19/24 08:40 Pantoprazole Sodium Iv 40 Mg Vial IV PUSH 40 mg Q12HR [facility] Administration Sodium Chloride 10 ml 07/15/24 14:00 07/19/24 14:14 Central Line Flush IV PUSH 10 ml Q8HR [facility] Administration Sodium Chloride 20 ml 07/15/24 12:03 Central Line Flush IV PUSH PRN PRN after blood draws Warfarin Sodium 1.5 mg 07/18/24 17:00 07/18/24 18:06 Warfarin (*Pbkc) 1.5 Mg Tablet PO 1.5 mg DAILY@1700 [facility] Administration Radiology Results: ITS Impressions Chest/Abdomen/Pelvis CT 07/14/24 14:45 IMPRESSION: 1. 8 cm complex cystic lesion within the spleen which could represent a hematoma, abscess or less likely neoplasm. 2. Tiny left pleural effusion with likely combination of atelectasis and mild pulmonary edema in the dependent lungs. 3. Moderate cardiomegaly with enlargement of the central pulmonary arteries consistent with pulmonary arterial hypertension. 4. Moderate bilateral renal atrophy with bilateral nephrolithiasis including a 9 mm stone at the right ureteropelvic junction without hydronephrosis which could reflect poor renal function. 5. Small to moderate amount of ascites likely related to peritoneal dialysis with dialysis catheter in the pelvis. 6. Extensive diverticulosis. Chest X-Ray 07/18/24 05:50 Impression: Small left pleural effusion with minimal bibasilar pulmonary edema/atelectasis. Stable cardiomegaly. Labs Labs: Laboratory Tests 07/19/24 05:41 07/19/24 05:42 Neutrophils % (Manual) 81 H Band Neutrophils % 6 PT 35.2 H INR 3.4 Calcium 9.0 Phosphorus 4.1 Magnesium 2.1 Total Bilirubin 0.6 AST 29 ALT 44 H Alkaline Phosphatase 103 C-Reactive Protein 12.9 H Total Protein 6.0 L Albumin 2.7 L
[2024-07-19] MEDS: MIDODRINE HCL 2.5 MG TABLET 5 MG PO (12:48)
--- NOTE | 2024-07-19 12:56 | P.PNGI_ITS ---
Progress Note: A&P Assessment and Plan (1) Multiple renal calculi: Code(s): N20.0 - Calculus of kidney Status: Acute (2) Hypokalemia: Code(s): E87.6 - Hypokalemia Status: Acute Assessment and Plan: as per ICU team for correction of the potassium (3) Chronic anemia: Code(s): D64.9 - Anemia, unspecified Status: Acute Assessment and Plan: discussed with the family and the patient in detail patient will need upper endoscopy and colonoscopy as outpatient assessed of these tests have been discussed. No obvious GI bleeding has been witness (4) UTI (urinary tract infection): Code(s): N39.0 - Urinary tract infection, site not specified Status: Acute Assessment and Plan: as per ICU team (5) End-stage renal disease on peritoneal dialysis: Code(s): N18.6 - End stage renal disease; Z99.2 - Dependence on renal dialysis Status: Acute Assessment and Plan: as per ICU team (6) Sepsis: Qualifiers: Sepsis acute organ dysfunction status: unspecified Sepsis type: sepsis due to unspecified organism Qualified Code(s): A41.9 - Sepsis, unspecified organism Code(s): A41.9 - Sepsis, unspecified organism Status: Acute Assessment and Plan: patient's CT scan done did show 8cm splenic lesion will get an ultrasound of the spleen for evaluation to rule out any abscess or any other splenic lesion Subjective Date/time seen: 07/19/24 12:56 Interval history: patient seen her patient denies any nausea vomiting abdominal pain diarrhea denies any GI bleeding patient's family is at bedside Review of Systems Constitutional: Constitutional: Denies chills, Denies fatigue, Denies fever(s), Denies headache(s), Denies malaise, Denies weight gain and Denies weight loss Eyes: Eyes: Denies change in vision ENT: Denies dizziness, Denies headache(s) and Reports other (No change in hearing) Cardiovascular: Cardiovascular: Denies chest pain, Denies dyspnea and Reports other (denies palpitations, denies orthopnea) Respiratory: Respiratory: Denies cough, Denies dyspnea and Reports other (denies sputum production, denies hemoptysis) Gastrointestinal: Gastrointestinal: Reports as per HPI Genitourinary: Genitourinary: Denies hematuria, Denies dysuria and Denies urinary incontinence Musculoskeletal: Musculoskeletal: Reports other (denies extremity edema, denies myalgia) Integumentary/Breasts: Skin/Breast: Denies new lesions and Denies rash Neurologic: Denies dizziness, Denies headache(s) and Denies seizure-like activity Endocrine: Endocrine: Denies fatigue Hematologic/Lymphatic: Hematologic/Lymphatic: Denies easy bleeding and Denies easy bruising Exam Const: General: cooperative; No acute distress Orientation/consciousness: patient oriented x3 HENMT: Head: normal to inspection Neck: Neck: supple Resp: Auscultation: clear to auscultation bilaterally Cardio: Rate: regular rate Rhythm: regular rhythm GI: Inspection: non-distended GI Palp: Yes Soft to palpation, No Tenderness to palpation present (GI) and No Palpable mass present Auscultation: normal bowel sounds Rectal Exam: deferred Skin: General skin exam: no rashes or lesions noted Neuro: General: patient oriented x3 Extrem: General: no edema Objective Data Vital Signs Vital Signs: Vital Signs - 24 hr 07/18/24 14:00 07/18/24 16:00 07/18/24 16:00 Temperature 98.4 F Pulse Rate 108 H 116 H 117 H Respiratory Rate 23 H Blood Pressure 99/71 L Pulse Oximetry 93 Oxygen Delivery 07/18/24 16:00 07/18/24 18:00 07/18/24 18:06 Temperature Pulse Rate 124 H 130 H Respiratory Rate Blood Pressure Pulse Oximetry Oxygen Delivery Room Air 07/18/24 18:06 07/18/24 20:00 07/18/24 20:00 Temperature Pulse Rate 130 H 126 H Respiratory Rate Blood Pressure 92/65 L Pulse Oximetry Oxygen Delivery Room Air 07/18/24 20:58 07/18/24 22:00 07/18/24 22:04 Temperature 98.5 F Pulse Rate 113 H 117 H 118 H Respiratory Rate 18 16 Blood Pressure 105/79 112/87 Pulse Oximetry 100 100 Oxygen Delivery 07/18/24 22:05 07/19/24 00:00 07/19/24 00:00 Temperature 98.4 F Pulse Rate 107 H 104 H Respiratory Rate 13 Blood Pressure 94/81 L Pulse Oximetry 100 Oxygen Delivery Room Air 07/19/24 00:00 07/19/24 02:00 07/19/24 04:00 Temperature 98.5 F Pulse Rate 90 105 H 106 H Respiratory Rate 16 Blood Pressure 90/48 L Pulse Oximetry 97 Oxygen Delivery 07/19/24 04:00 07/19/24 04:00 07/19/24 06:00 Temperature Pulse Rate 109 H 102 H Respiratory Rate Blood Pressure Pulse Oximetry Oxygen Delivery Room Air 07/19/24 07:15 07/19/24 08:00 07/19/24 08:00 Temperature 97.7 F Pulse Rate 116 H 126 H 112 H Respiratory Rate 22 H 26 H 26 H Blood Pressure 124/62 81/53 L Pulse Oximetry 98 98 Oxygen Delivery Room Air 07/19/24 08:00 07/19/24 08:40 07/19/24 10:00 Temperature Pulse Rate 126 H 112 H 117 H Respiratory Rate Blood Pressure Pulse Oximetry Oxygen Delivery 07/19/24 12:00 Temperature 98.7 F Pulse Rate 126 H Respiratory Rate 20 Blood Pressure 128/95 H Pulse Oximetry 99 Oxygen Delivery Intake/Output Intake/Output: Intake & Output 07/16/24 07/17/24 07/18/24 07/19/24 23:59 23:59 23:59 23:59 Intake Total 1289.0 1173.8 1599.8 340 Output Total 649 249 9780 1323 Balance 693.0 346.8 6.8 -983 Meds/Results Medications: Active Medications Generic Name Dose Route Start Last Admin Trade Name Freq PRN Reason Stop Dose Admin Acetaminophen 650 mg 07/14/24 15:53 07/16/24 09:24 Acetaminophen 325 Mg Tablet PO 650 mg Q4H PRN Administration Mild Pain (1-3) or Fever Amiodarone HCl 400 mg 07/18/24 17:00 07/19/24 08:40 Amiodarone Hcl 200 Mg Tablet PO 400 mg BID KELLEN Administration Calcitriol 0.25 mcg 07/15/24 09:00 07/19/24 08:40 Calcitriol 0.25 Mcg Capsule PO 0.25 mcg DAILY KELLEN Administration Epoetin Ab-epbx 10,000 units 07/17/24 09:00 07/19/24 08:48 Epoetin Ab-Epbx 10,000 Units/Ml Vial SUB-Q 10,000 units TUTHSA@09 KELLEN Administration Gentamicin Sulfate 1 applic 07/15/24 21:00 07/18/24 22:06 Gentamicin Sulfate 0.1% Cr 15 Gm Tube TOPICAL 1 applic QHS KELLEN Administration Cefepime HCl 1 gm in 50 mls @ 100 mls/hr 07/15/24 16:00 07/18/24 16:31 Maxipime 1 Gm/Ns 50 Ml IVPB Infused Q24H KELLEN Infusion Levothyroxine Sodium 25 mcg 07/15/24 06:30 07/19/24 05:29 Levothyroxine Sodium 25 Mcg Tablet PO 25 mcg DAILY@0630 KELLEN Administration Metoprolol Tartrate 100 mg 07/18/24 21:00 07/19/24 08:48 Metoprolol Tartrate 50 Mg Tab PO Not Given Q12HR KELLEN Midodrine 5 mg 07/19/24 10:30 07/19/24 12:48 Midodrine Hcl 2.5 Mg Tablet PO 5 mg TID KELLEN Administration Ondansetron HCl 4 mg 07/14/24 15:53 Ondansetron Inj 4 Mg/2 Ml Vial IV PUSH Q4H PRN Nausea Pantoprazole Sodium 40 mg 07/15/24 21:00 07/19/24 08:40 Pantoprazole Sodium Iv 40 Mg Vial IV PUSH 40 mg Q12HR KELLEN Administration Sodium Chloride 10 ml 07/15/24 14:00 07/19/24 05:29 Central Line Flush IV PUSH 10 ml Q8HR KELLEN Administration Sodium Chloride 20 ml 07/15/24 12:03 Central Line Flush IV PUSH PRN PRN after blood draws Warfarin Sodium 1.5 mg 07/18/24 17:00 07/18/24 18:06 Warfarin (*Pbkc) 1.5 Mg Tablet PO 1.5 mg DAILY@1700 KELLEN Administration Radiology Results: ITS Impressions Chest/Abdomen/Pelvis CT 07/14/24 14:45 IMPRESSION: 1. 8 cm complex cystic lesion within the spleen which could represent a hematoma, abscess or less likely neoplasm. 2. Tiny left pleural effusion with likely combination of atelectasis and mild pulmonary edema in the dependent lungs. 3. Moderate cardiomegaly with enlargement of the central pulmonary arteries consistent with pulmonary arterial hypertension. 4. Moderate bilateral renal atrophy with bilateral nephrolithiasis including a 9 mm stone at the right ureteropelvic junction without hydronephrosis which could reflect poor renal function. 5. Small to moderate amount of ascites likely related to peritoneal dialysis with dialysis catheter in the pelvis. 6. Extensive diverticulosis. Chest X-Ray 07/18/24 05:50 Impression: Small left pleural effusion with minimal bibasilar pulmonary edema/atelectasis. Stable cardiomegaly. Labs Labs: Laboratory Results - last 24 hr 07/19/24 07/19/24 05:41 05:42 WBC 13.3 H RBC 2.70 L Hgb 8.3 L Hct 24.0 L MCV 88.9 MCH 30.7 MCHC 34.6 RDW 14.4 Plt Count TNP MPV 10.4 Immature Gran % (Auto) Not Reportable Neut % (Auto) Not Reportable Lymph % (Auto) Not Reportable [place] % (Auto) Not Reportable Eos % (Auto) Not Reportable Baso % (Auto) Not Reportable Lymph # (Auto) Not Reportable [place] # (Auto) Not Reportable Eos # (Auto) Not Reportable Baso # (Auto) Not Reportable Abs Immat Gran (auto) Not Reportable Absolute Neuts (auto) Not Reportable Absolute Nucleated RBC Not Reportable Total Counted 100 Neutrophils % (Manual) 81 H Band Neutrophils % 6 Lymphocytes % (Manual) 8 L Monocytes % (Manual) 1 L Eosinophils % (Manual) 4 Nucleated RBC % Not Reportable Abs Neuts (Manual) 11.57 H Abs Lymphs (Manual) 1.06 L Abs Monocytes (Manual) 0.13 Absolute Eos (Manual) 0.53 H Platelet Estimate Adequate Polychromasia 1+ Hypochromasia 1+ Anisocytosis 1+ Target Cells 2+ Tear Drop Cells 1+ Schistocytes None seen PT 35.2 H INR 3.4 Sodium 133 L Potassium 3.0 L Chloride 96 L Carbon Dioxide 25 Anion Gap 12 BUN 38 H Creatinine 8.50 H Estim Creat Clear Calc 6 Estimated GFR 6 L Glucose 120 H Calcium 9.0 Phosphorus 4.1 Magnesium 2.1 Total Bilirubin 0.6 AST 29 ALT 44 H Alkaline Phosphatase 103 C-Reactive Protein 12.9 H Total Protein 6.0 L Albumin 2.7 L
--- NOTE | 2024-07-19 15:03 | P.PNAN_ITS ---
Anes - Eval Pre Procedure Procedure: Operation Date: 07/19/24 15:30 Proposed Procedures p Cysto, RPG, Stone Ext, Stent Placement Special - Ruiz Garcia MD Date/Time: 07/19/24 15:03 Surgeon: Radha Pre Op Diagnosis: sepsis, afib with rvr Patient Data Age: 63 Gender: F Height: 1.52 m Weight: 89 kg Last Vital Signs Temp 98.7 F 07/19/24 12:00 Pulse 135 H 07/19/24 14:00 Resp 19 07/19/24 12:00 BP 128/95 H 07/19/24 12:00 Pulse Ox 98 07/19/24 12:00 O2 Del Method Room Air 07/19/24 12:00 O2 Flow Rate 2 07/17/24 16:00 Allergies Allergy/AdvReac Type Severity Reaction Status Date / Time PHILIP Inhibitors Allergy Severe Swelling Verified 07/05/24 12:01 of Lip/Tongue/Throat azithromycin Allergy Severe Dyspnea / Verified 07/05/24 12:01 SOB Home Medications ?Medication ?Instructions ?Recorded ?Confirmed ?Type metoprolol tartrate 50 mg tablet 100 mg (2 x 50 mg) PO BID #60 tabs 07/30/21 07/14/24 Rx warfarin 2.5 mg tablet 2.5 mg PO DAILY #30 tabs 07/30/21 07/14/24 Rx vitamin B complex-vitamin C-folic 1 tablet PO DAILY #90 tabs 11/20/22 07/14/24 Rx acid 0.8 mg tablet (Nephro-Silvia) calcitriol 0.25 mcg capsule 0.25 mcg PO DAILY 07/14/24 07/14/24 History furosemide 80 mg tablet 80 mg PO BID 07/14/24 07/14/24 History gentamicin 0.1 % topical cream 1 applic topical DAILY 07/14/24 07/14/24 History levothyroxine 25 mcg tablet 25 mcg PO DAILY 07/14/24 07/14/24 History losartan 100 mg tablet 100 mg PO DAILY 07/14/24 07/14/24 History potassium chloride 10 mEq 10 meq PO DAILY 07/14/24 07/14/24 History tablet,extended release Laboratory Tests 07/19/24 07/19/24 05:41 05:42 WBC 13.3 H K/mm3 (4.5-10.0) RBC 2.70 L M/mm3 (4.2-5.4) Hgb 8.3 L g/dL (12.0-15.0) Hct 24.0 L % (37.0-47.0) MCV 88.9 fl (80-100) MCH 30.7 pg (26-34) MCHC 34.6 g/dl (32-36) RDW 14.4 % (11.5-14.5) Plt Count TNP MPV 10.4 fl (7.4-10.4) Immature Gran % (Auto) Not Reportable Neut % (Auto) Not Reportable Lymph % (Auto) Not Reportable [place] % (Auto) Not Reportable Eos % (Auto) Not Reportable Baso % (Auto) Not Reportable Lymph # (Auto) Not Reportable [place] # (Auto) Not Reportable Eos # (Auto) Not Reportable Baso # (Auto) Not Reportable Abs Immat Gran (auto) Not Reportable Absolute Neuts (auto) Not Reportable Absolute Nucleated RBC Not Reportable Total Counted 100 Neutrophils % (Manual) 81 H % (46-73) Band Neutrophils % 6 % (0-6) Lymphocytes % (Manual) 8 L % (18-44) Monocytes % (Manual) 1 L % (3-9) Eosinophils % (Manual) 4 % (0-4) Nucleated RBC % Not Reportable Abs Neuts (Manual) 11.57 H K/mm3 (1.7-7.2) Abs Lymphs (Manual) 1.06 L K/mm3 (1.1-4.5) Abs Monocytes (Manual) 0.13 K/mm3 (0.1-0.90) Absolute Eos (Manual) 0.53 H K/mm3 (0.02-0.50) Platelet Estimate Adequate (Adequate) Polychromasia 1+ Hypochromasia 1+ Anisocytosis 1+ Target Cells 2+ Tear Drop Cells 1+ Schistocytes None seen PT 35.2 H Seconds (11.1-14.7) INR 3.4 Sodium 133 L mmol/L (137-145) Potassium 3.0 L mmol/L (3.4-5.0) Chloride 96 L mmol/L (98-107) Carbon Dioxide 25 mmol/L (22-30) Anion Gap 12 mmol/L (4-12) BUN 38 H mg/dL (7-17) Creatinine 8.50 H mg/dL (0.7-1.0) Estim Creat Clear Calc 6 ml/min Estimated GFR 6 L (59 - ) Glucose 120 H mg/dL (65-110) Calcium 9.0 mg/dL (8.4-10.2) Phosphorus 4.1 mg/dL (2.5-4.5) Magnesium 2.1 mg/dL (1.6-2.3) Total Bilirubin 0.6 mg/dL (0.2-1.3) AST 29 U/L (14-36) ALT 44 H U/L (6-35) Alkaline Phosphatase 103 U/L (38-126) C-Reactive Protein 12.9 H mg/dL (<1.0) Total Protein 6.0 L g/dL (6.3-8.2) Albumin 2.7 L g/dL (3.5-5.1) Other studies: ECHO 07/15/2024: Summary 1. Complete two-dimensional, color flow and Doppler transthoracic echocardiogram is performed. 2. Left ventricular chamber dimension is enlarged. 3. There is mildly increased left ventricular wall thickness. 4. Left ventricular systolic function is severely reduced, estimated at 20-25%. 5. Left ventricular wall motion shows global hypokinesis, with ant segment akinesis. 6. The left ventricular diastolic function is grade III diastolic dysfunction. 7. Right ventricular systolic function is reduced. 8. Left atrial chamber dimension is enlarged. 9. Right atrial chamber dimension is enlarged. 10. There is moderate to severe tricuspid valve regurgitation. 11. Mild pulmonary hypertension, estimated pulmonary arterial systolic pressure is 53 mmHg. 12. There is moderate to severe eccentric mitral valve regurgitation. 13. There is no aortic valve stenosis. 14. Dilated inferior vena cava with <50% collapse upon inspiration consistent with elevated right atrial pressure, 15 mmHg. Patient hx anesthesia problems: none Family hx anesthesia problems: none Prior surgeries: failed cardioversion X 2 Results Review: All pre-operative results and documents have been reviewed as part of the pre- operative evaluation. [facility] Past Medical History Medical History (Updated 07/19/24 @ 10:24 by Ruiz Garcia MD) Ureterolithiasis Afib Chronic kidney disease, unspecified Chronic kidney disease Acute renal failure Hypertension Surgical History Surgical History History of tonsillectomy History of Family History Family History Father CAD (coronary artery disease) Mother Hypertension Social History Social History Social History: The patient lives at home with her daughter and mother. 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 She used to smoke half a pack of cigarettes per day but quit smoking in 2018. She has 20 pack per year smoking history. She used to drink 1-2 beers a day every day but quit doing so several years ago. She now drinks 1 beer on rare occasion. She denies any illicit substance use. Primary care provider: Brandie Rhoades [employer] Code status: Full code Surrogate decision maker: Daughter Smoking packs per day: 0.5 Smoking cigarettes per day: 10.0 Years smoked: 40 Smoking pack-years: 20.00 Smoking status: Former smoker Alcohol intake: unknown Drinks per week: 1 Substance use: unknown Do You Feel Safe in your Home?: Yes Lack of Transportation: No Lack of Food: Never True Current Housing: I Have Housing Concerned About Future Housing: No Difficulty Paying Gas/Electric Bills: No Difficulty Paying for Meds: No Currently Unemployed: No Education: Decline to Answer Difficulty w/ Childcare or Family Care: No Spiritual care concerns: No Exam Day of Procedure 07/19/24 15:03
--- NOTE | 2024-07-19 15:21 | P.PNAN_ITS ---
Anes - Eval Final PreProcedure Day of Procedure 07/19/24 15:21 Patient weight: obese Heart: regular rate and rhythm Lungs: clear to auscultation Airway: Mallampati scale class II Neurological: alert and oriented Last oral intake: >/= 8 hours ASA classification: IV Emergent: yes Anesthetic plan: proceed Anesthesia type and monitoring: general GIVS and standard monitoring Results Review: All pre-operative results and documents have been reviewed as part of the pre- operative evaluation. Informed Consent: The patient's anesthetic plan and its attendant risks and benefits were discussed with the patient/family/POA. Questions were solicited and answers provided to the satisfaction of the patient/family/POA.
--- NOTE | 2024-07-19 15:23 | PC.NURSE ---
Pt to OR via bed. Family at bedside
--- NOTE | 2024-07-19 15:25 | WPDHPUPDATE1 ---
History and Physical Update Update Date/Time: 07/19/24 15:25 History and Physical has been reviewed, including an updated exam of the patient. There are NO changes in the patient's condition. Risks, benefits, and alternatives have been discussed and questions answered. Patient agrees to proceed with procedure.
--- NOTE | 2024-07-19 15:26 | WPDHPUPDATE1 ---
History and Physical Update Update Date/Time: 07/19/24 15:26 History and Physical has been reviewed, including an updated exam of the patient. There are NO changes in the patient's condition. Risks, benefits, and alternatives have been discussed and questions answered. Patient agrees to proceed with procedure.
--- NOTE | 2024-07-19 15:57 | P.OP_ITS ---
Procedure Note - Detailed Date of Procedure 07/19/24 Pre-op Diagnosis Uterolysis tone Post-op Diagnosis Same Procedure Performed Cystoscopy, right retrograde pyelogram, right ureteral stent placement Surgeon Ruiz Garcia MD Anesthesia MAC Indications Along with a right ureteral stone she is hypotensive and tachycardic with unknown reason. Concern is for under drained infection proximal to her stone. Presents for ureteral stent. Understands risks of bleeding, infection, inability to resolve her hypotension and tachycardia, damage to the urinary tract. She agrees to proceed Findings Right ureteral stone pushed into the right renal pelvis. 4.8 variable length stent placed Description of Procedure She was correctly identified. Informed consent obtained. Shunt brought to the operating room. She was given monitored anesthesia care. She is placed in dorsal lithotomy position. She was prepped and draped sterile fashion. Time- out performed. Cystoscopy revealed a small capacity bladder without significant abnormalities. I did a retrograde pyelogram on the left showing a filling defect in the proximal right ureter. I placed a guidewire to the kidney. This pushed the stone into the renal pelvis and into the mid to upper pole kidney. I then placed a 4.8 variable length stent. Proximal coil in the kidney. Distal coil the bladder. The bladder was drained. She was awakened transferred to PACU in stable condition. Estimated Blood Loss 0 Urine Output 0 Pathology None sent Complications No immediate complications Condition Stable Disposition PACU
--- NOTE | 2024-07-19 16:25 | PC.NURSE ---
Pt returned from OR via bed. No issues noted
[2024-07-19] MEDS: CEFEPIME 1 GM/NS 50 ML 1 GM/50 ML BAG IVPB (16:42)
[2024-07-19] MEDS: ALBUMIN HUMAN 25% 25 GM/100 ML 100 ML IVPB (17:23)
--- NOTE | 2024-07-19 17:49 | PM.PNCARD ---
Progress Note: A&P Assessment and Plan (1) Atrial fibrillation with rapid ventricular response: Code(s): I48.91 - Unspecified atrial fibrillation Status: Acute Assessment and Plan: -she remains in RVR despite IV amiodarone infusion, high dose of beta-blockers -reviewing her chart shows that she has had cardioversion in the past and has reverted back to atrial fibrillation -I think part of her tachycardic response is because of underlying UTI and her low EF to maintain cardiac output Currently heart rates around 110 BP acceptable - I think she will need an AV silvana ablation and the possibility of a [employer] D to help her lV function and ventricular rates as well. Consider trnasfer to a facility with EP availability -No warfarin today, INR tomorrow (2) CHF (congestive heart failure): Qualifiers: Heart failure chronicity: acute Heart failure type: unspecified Qualified Code(s): I50.9 - Heart failure, unspecified Code(s): I50.9 - Heart failure, unspecified Status: Acute Assessment and Plan: She appears compensated at this time. (3) Hypotension: Code(s): I95.9 - Hypotension, unspecified Status: Acute Assessment and Plan: Secondary to UTI, sepsis. Blood pressure is stable. (4) Cardiomyopathy: Code(s): I42.9 - Cardiomyopathy, unspecified Status: Acute Assessment and Plan: EF 20-25% in 2021. Limited options for GDMT as she has ESRD/soft BP. Subjective Date/time seen: 07/19/24 17:49 Interval history: Remains in RVR Denies chest pain or dyspnea Review of Systems Review of Systems: All systems reviewed & are unremarkable except as noted in HPI and below Exam Const: General: comfortable, no acute distress, alert and awake Orientation/consciousness: patient oriented x3 HENMT: Head: normal to inspection Eyes: General: appearance normal, both eyes and all related structures Pupils: Equal, round and reactive pupils present Neck: Neck: normal visual inspection, supple and no JVD Carotids: normal carotid upstroke Resp: Effort & Inspection: normal respiratory effort Auscultation: clear to auscultation bilaterally Cardio: Rate: regular rate Rhythm: abnormal rhythm irregularly irregular Heart sounds: S1 normal heart sound present, S2 normal heart sound present and no murmurs GI: Auscultation: normal bowel sounds Skin: General skin exam: normal color Neuro: General: patient oriented x3 Cranial nerves: Yes Equal, round and reactive pupils present Extrem: Other: Trace bilateral lower extremity edema Psych: Appearance: grossly normal Mental Status: mental status grossly normal Objective Data Vital Signs Vital Signs: Vital Signs - 24 hr 07/18/24 18:00 07/18/24 18:06 07/18/24 18:06 Temperature Pulse Rate 124 H 130 H 130 H Respiratory Rate Blood Pressure 92/65 L Pulse Oximetry Oxygen Delivery 07/18/24 20:00 07/18/24 20:00 07/18/24 20:58 Temperature 36.9 C Pulse Rate 126 H 113 H Respiratory Rate 18 Blood Pressure 105/79 Pulse Oximetry 100 Oxygen Delivery Room Air 07/18/24 22:00 07/18/24 22:04 07/18/24 22:05 Temperature Pulse Rate 117 H 118 H 107 H Respiratory Rate 16 Blood Pressure 112/87 Pulse Oximetry 100 Oxygen Delivery 07/19/24 00:00 07/19/24 00:00 07/19/24 00:00 Temperature 36.9 C Pulse Rate 104 H 90 Respiratory Rate 13 Blood Pressure 94/81 L Pulse Oximetry 100 Oxygen Delivery Room Air 07/19/24 02:00 07/19/24 04:00 07/19/24 04:00 Temperature 36.9 C Pulse Rate 105 H 106 H Respiratory Rate 16 Blood Pressure 90/48 L Pulse Oximetry 97 Oxygen Delivery Room Air 07/19/24 04:00 07/19/24 06:00 07/19/24 07:15 Temperature Pulse Rate 109 H 102 H 116 H Respiratory Rate 22 H Blood Pressure 124/62 Pulse Oximetry Oxygen Delivery 07/19/24 08:00 07/19/24 08:00 07/19/24 08:00 Temperature 36.5 C Pulse Rate 126 H 112 H 126 H Respiratory Rate 26 H 26 H Blood Pressure 81/53 L Pulse Oximetry 98 98 Oxygen Delivery Room Air 07/19/24 08:40 07/19/24 10:00 07/19/24 12:00 Temperature 37.1 C Pulse Rate 112 H 117 H 126 H Respiratory Rate 20 Blood Pressure 128/95 H Pulse Oximetry 99 Oxygen Delivery 07/19/24 12:00 07/19/24 12:00 07/19/24 14:00 Temperature Pulse Rate 120 H 118 H 135 H Respiratory Rate 19 Blood Pressure Pulse Oximetry 98 Oxygen Delivery Room Air 07/19/24 16:01 07/19/24 16:16 07/19/24 16:30 Temperature 37.5 C Pulse Rate 127 H 143 H 131 H Respiratory Rate 20 18 18 Blood Pressure 67/45 L 88/62 L 95/60 L Pulse Oximetry 97 96 97 Oxygen Delivery Room Air Room Air 07/19/24 16:30 07/19/24 16:46 07/19/24 17:00 Temperature 36.9 C 36.9 C Pulse Rate 137 H 134 H 135 H Respiratory Rate 20 20 Blood Pressure 104/93 H 83/63 L Pulse Oximetry 98 96 Oxygen Delivery 07/19/24 17:15 07/19/24 17:45 Temperature 36.4 C L 36.7 C Pulse Rate 137 H 140 H Respiratory Rate 22 H 21 H Blood Pressure 110/86 85/57 L Pulse Oximetry 98 100 Oxygen Delivery Intake/Output Intake/Output: Intake & Output 07/16/24 07/17/24 07/18/24 07/19/24 23:59 23:59 23:59 23:59 Intake Total 1289.0 1173.8 1599.8 490 Output Total 801 162 0397 1323 Balance 693.0 346.8 6.8 -833 Meds/Results Medications: Active Medications Generic Name Dose Route Start Last Admin Trade Name Freq PRN Reason Stop Dose Admin Acetaminophen 650 mg 07/14/24 15:53 07/16/24 09:24 Acetaminophen 325 Mg Tablet PO 650 mg Q4H PRN Administration Mild Pain (1-3) or Fever Cefepime HCl 1 gm in 50 mls @ 100 mls/hr 07/15/24 16:00 07/19/24 17:49 Maxipime 1 Gm/Ns 50 Ml IVPB Infused Q24H KELLEN Infusion Albumin Human 100 mls @ 60 mls/hr 07/19/24 16:40 07/19/24 17:49 Albutein IVPB 07/19/24 18:19 Infused ONCE ONE Infusion Ondansetron HCl 4 mg 07/14/24 15:53 Ondansetron Inj 4 Mg/2 Ml Vial IV PUSH Q4H PRN Nausea Sodium Chloride 10 ml 07/15/24 14:00 07/19/24 14:14 Central Line Flush IV PUSH 10 ml Q8HR KELLEN Administration Sodium Chloride 20 ml 07/15/24 12:03 Central Line Flush IV PUSH PRN PRN after blood draws Radiology Results: ITS Impressions Chest/Abdomen/Pelvis CT 07/14/24 14:45 IMPRESSION: 1. 8 cm complex cystic lesion within the spleen which could represent a hematoma, abscess or less likely neoplasm. 2. Tiny left pleural effusion with likely combination of atelectasis and mild pulmonary edema in the dependent lungs. 3. Moderate cardiomegaly with enlargement of the central pulmonary arteries consistent with pulmonary arterial hypertension. 4. Moderate bilateral renal atrophy with bilateral nephrolithiasis including a 9 mm stone at the right ureteropelvic junction without hydronephrosis which could reflect poor renal function. 5. Small to moderate amount of ascites likely related to peritoneal dialysis with dialysis catheter in the pelvis. 6. Extensive diverticulosis. Chest X-Ray 07/18/24 05:50 Impression: Small left pleural effusion with minimal bibasilar pulmonary edema/atelectasis. Stable cardiomegaly. Labs Labs: Laboratory Results - last 24 hr 07/19/24 07/19/24 05:41 05:42 WBC 13.3 H RBC 2.70 L Hgb 8.3 L Hct 24.0 L MCV 88.9 MCH 30.7 MCHC 34.6 RDW 14.4 Plt Count TNP MPV 10.4 Immature Gran % (Auto) Not Reportable Neut % (Auto) Not Reportable Lymph % (Auto) Not Reportable Warrick % (Auto) Not Reportable Eos % (Auto) Not Reportable Baso % (Auto) Not Reportable Lymph # (Auto) Not Reportable Warrick # (Auto) Not Reportable Eos # (Auto) Not Reportable Baso # (Auto) Not Reportable Abs Immat Gran (auto) Not Reportable Absolute Neuts (auto) Not Reportable Absolute Nucleated RBC Not Reportable Total Counted 100 Neutrophils % (Manual) 81 H Band Neutrophils % 6 Lymphocytes % (Manual) 8 L Monocytes % (Manual) 1 L Eosinophils % (Manual) 4 Nucleated RBC % Not Reportable Abs Neuts (Manual) 11.57 H Abs Lymphs (Manual) 1.06 L Abs Monocytes (Manual) 0.13 Absolute Eos (Manual) 0.53 H Platelet Estimate Adequate Polychromasia 1+ Hypochromasia 1+ Anisocytosis 1+ Target Cells 2+ Tear Drop Cells 1+ Schistocytes None seen PT 35.2 H INR 3.4 Sodium 133 L Potassium 3.0 L Chloride 96 L Carbon Dioxide 25 Anion Gap 12 BUN 38 H Creatinine 8.50 H Estim Creat Clear Calc 6 Estimated GFR 6 L Glucose 120 H Calcium 9.0 Phosphorus 4.1 Magnesium 2.1 Total Bilirubin 0.6 AST 29 ALT 44 H Alkaline Phosphatase 103 C-Reactive Protein 12.9 H Total Protein 6.0 L Albumin 2.7 L
[2024-07-19] MEDS: GENTAMICIN SULFATE 0.1% CR 15 GM TUBE 1 APPLIC TOPICAL (20:14)
--- NOTE | 2024-07-19 21:44 | PC.NURSE ---
DR Garcia made aware of hematuria, bright red, 100ml and continued soft blood pressures. NNO at this time.
--- NOTE | 2024-07-19 21:56 | PC.NURSE ---
Dr Julissa Valiente called per heart rate 120-156 Afib and low blood pressures. Order received to place on amiodarone at .5mg/hr, due to patient being on PO amiodarone. Dr. Valiente thinks too much fluid may be being removed with PD exchanges so 250ml NS bolus also ordered.
[2024-07-19] MEDS: SODIUM CHLORIDE 0.9% IV 1,000 ML 250 ML IV CONT (22:28)
[2024-07-19] MEDS: AMIODARONE 360 MG/D5W 200 ML 360 MG/200 ML BAG 16.67 MG IV CONT (22:29)
[2024-07-20] VITALS (34 sets, daily range): BP systolic 80–136; BP diastolic 48–97; PULSE 93–188; RESP 17–23; TEMP 36.9–37.4; O2SAT 91–100
[2024-07-20] MEDS: METOPROLOL TARTRATE INJ 5 MG/5 ML VIAL 2.5 MG IV PUSH (03:35)
[2024-07-20] MEDS: DIGOXIN INJ 250 MCG/ML 2 ML AMP (*BKC) IV PUSH (03:36)
[2024-07-20] MEDS: SODIUM CHLORIDE 0.9% IV 250 ML 999 ML IV CONT (03:36)
[2024-07-20] MEDS: ACETAMINOPHEN 325 MG TABLET 650 MG PO ×2 (04:09→08:17)
[2024-07-20 04:14] LABS: Basophils Absolute Auto 0.1 K/mm3 (0.0-0.1); Basophils Percent Auto 0.8 % (0.2-1.2); Eosinophils Absolute Auto 0.1 K/mm3 (0-0.3); Eosinophils Percent Auto 1.2 % (0-4.4); Hematocrit 23.4 % (37.0-47.0); Hemoglobin 7.9 g/dL (12.0-15.0); Immature Granulocyte Absolute 0.74 K/mm3 (0.00-0.031); Immature Granulocyte Percent A 9.6 % (0-0.5); Lymphocytes Absolute Auto 0.62 K/mm3 (0.9-3.2); Mean Corpuscular HGB Conc 33.8 g/dl (32-36); Mean Corpuscular Hemoglobin 30.6 pg (26-34); Mean Corpuscular Volume 90.7 fl (80-100); Mean Platelet Volume 10.8 fl (7.4-10.4); Monocytes Absolute Auto 0.1 K/mm3 (0.1-0.6); Monocytes Percent Auto 0.8 % (2.6-8.5); Neutrophils Absolute Auto 6.2 K/mm3 (1.3-6.7); Neutrophils Percent Auto 79.6 % (45.5-73.1); Nucleated Red Blood Cells Perc 2.3 % (0.0-0.2); Platelet Count Result 289 k/mm3 (150-375); Red Blood Count 2.58 M/mm3 (4.2-5.4); Red Cell Distribution Width 15.1 % (11.5-14.5); White Blood Count 7.7 K/mm3 (4.5-10.0)
[2024-07-20 04:26] LABS: INR 3.8; Prothrombin Time 37.8 Seconds (11.1-14.7)
[2024-07-20 04:31] LABS: Anion Gap 12 mmol/L (4-12); Blood Urea Nitrogen 37 mg/dL (7-17); Carbon Dioxide 24 mmol/L (22-30); Chloride 99 mmol/L (98-107); Estimated CRCL calculation 6 ml/min; Estimated Glomerular Filt Rate 6; Glucose 129 mg/dL (65-110); Magnesium 1.7 mg/dL (1.6-2.3); Phosphorus 3.7 mg/dL (2.5-4.5); Potassium 3.5 mmol/L (3.4-5.0); Sodium 135 mmol/L (137-145)
[2024-07-20 04:34] LABS: IFOB Positive Control Positive; Immunochemical Fecal Occult Bl Positive (N)
[2024-07-20 04:40] LABS: CRP 16.1 mg/dL (<1.0)
[2024-07-20 04:44] LABS: Platelet Estimate Adequate (Adequate); Poikilocytosis 1+
[2024-07-20 04:45] LABS: Anisocytosis 1+; Schistocytes None Seen; Target Cells 1+
[2024-07-20 04:47] LABS: Hypochromasia 1+
[2024-07-20] MEDS: MAGNESIUM SULF 1 GM/D5W 100 ML 1 GM/100 ML BAG IVPB (05:07)
[2024-07-20] MEDS: CENTRAL LINE FLUSH 10 ML IV PUSH ×3 (05:12→21:43)
[2024-07-20 05:15] LABS: Procalcitonin 58.2 ng/mL
[2024-07-20 07:11] LABS: Reflex Lactic Acid Yes or No Add Lactic
[2024-07-20 08:11] LABS: Lactic Acid 1.7 mmol/L (0.7-2.0)
[2024-07-20] MEDS: ALBUMIN HUMAN 25% 25 GM/100 ML 100 ML IVPB ×3 (08:18→20:10)
[2024-07-20] MEDS: PHENYLEPHRINE HCL INJ 50 MG in DEXTROSE 5% IN WATER 250 ML/245 ML BAG 12 ML IV CONT (08:58)
[2024-07-20] MEDS: AMIODARONE 150 MG/D5W 100 ML 150 MG/100 ML BAG 600 MG IV CONT (09:01)
[2024-07-20] MEDS: POTASSIUM CHLORIDE 20 MEQ PACKET (FOR LIQUID) PO (09:24)
[2024-07-20] MEDS: KCL 40 MEQ/WATER 100 ML 100 ML 25 ML IVPB (09:25)
[2024-07-20] MEDS: GENTAMICIN SULFATE 0.1% CR 15 GM TUBE 1 APPLIC TOPICAL (09:42)
[2024-07-20] MEDS: AMIODARONE 360 MG/D5W 200 ML 360 MG/200 ML BAG 16.67 MG IV CONT (09:43)
--- NOTE | 2024-07-20 11:24 | P.PNAN_ITS ---
Anes - Prog Note Post-Op Date/Time: 07/20/24 11:24 Cardiovascular status: other (a-fib, RVR) Respiratory status: normal Airway patency: baseline Mental status: baseline Post-Op hydration status: normal Vital Signs: Last Vital Signs Temp 36.9 C 07/20/24 10:00 Pulse 122 H 07/20/24 10:00 Resp 21 H 07/20/24 10:00 BP 83/59 L 07/20/24 10:00 Pulse Ox 94 07/20/24 10:00 O2 Del Method Room Air 07/20/24 04:00 O2 Flow Rate 2 07/17/24 16:00 Pain Score (VAS): 1-2 I/O: Intake & Output 07/19/24 07/20/24 07/20/24 23:59 07:59 15:59 Intake Total 760 592.2 204.2 Output Total 300 Balance 760 292.2 204.2 Laboratory Tests 07/20/24 03:49 07/20/24 03:49 07/20/24 07/20/24 07/20/24 03:49 03:54 04:02 WBC 7.7 RBC 2.58 L Hgb 7.9 L Hct 23.4 L MCV 90.7 MCH 30.6 MCHC 33.8 RDW 15.1 H Plt Count 289 MPV 10.8 H Immature Gran % (Auto) 9.6 H Neut % (Auto) 79.6 H Lymph % (Auto) 8.0 L Gillespie % (Auto) 0.8 L Eos % (Auto) 1.2 Baso % (Auto) 0.8 Lymph # (Auto) 0.62 L Gillespie # (Auto) 0.1 Eos # (Auto) 0.1 Baso # (Auto) 0.1 Abs Immat Gran (auto) 0.74 H Absolute Neuts (auto) 6.2 Absolute Nucleated RBC 0.180 H Nucleated RBC % 2.3 H Platelet Estimate Adequate Hypochromasia 1+ Poikilocytosis 1+ Anisocytosis 1+ Target Cells 1+ Schistocytes None seen PT 37.8 H INR 3.8 Sodium 135 L Potassium 3.5 Chloride 99 Carbon Dioxide 24 Anion Gap 12 BUN 37 H Creatinine 8.50 H Estim Creat Clear Calc 6 Estimated GFR 6 L Glucose 129 H Lactic Acid 3.0 H Calcium 9.0 Phosphorus 3.7 Magnesium 1.7 C-Reactive Protein 16.1 H Albumin 3.0 L Procalcitonin Stl Occult Blood (IFOB) Positive H 07/20/24 07/20/24 04:03 07:39 WBC RBC Hgb Hct MCV MCH MCHC RDW Plt Count MPV Immature Gran % (Auto) Neut % (Auto) Lymph % (Auto) Gillespie % (Auto) Eos % (Auto) Baso % (Auto) Lymph # (Auto) Gillespie # (Auto) Eos # (Auto) Baso # (Auto) Abs Immat Gran (auto) Absolute Neuts (auto) Absolute Nucleated RBC Nucleated RBC % Platelet Estimate Hypochromasia Poikilocytosis Anisocytosis Target Cells Schistocytes PT INR Sodium Potassium Chloride Carbon Dioxide Anion Gap BUN Creatinine Estim Creat Clear Calc Estimated GFR Glucose Lactic Acid 1.7 Calcium Phosphorus Magnesium C-Reactive Protein Albumin Procalcitonin 58.2 Stl Occult Blood (IFOB) Post-procedural complaints: none Patient Feedback: Patient satisfied with anesthetic care.
--- NOTE | 2024-07-20 13:59 | WPDINTPN ---
Progress Note: A&P Assessment and Plan (1) Septic shock: Code(s): A41.9 - Sepsis, unspecified organism; R65.21 - Severe sepsis with septic shock Status: Acute Assessment and Plan: 07/14/2024: Patient presented with fevers, chills, hypotension. -Patient was in the ER on 07/05 and was diagnosed with UTI and sent home on Bactrim only to return on 07/14 with hypotension, fever with chills, AFib RVR -was given 3 L IV fluid bolus, -patient was in AFib, hypotension, was given metoprolol which further caused more hypotension, patient was cardioverted, given IV fluids despite which she remained hypotensive -central line was inserted in the ICU by ER physician, started on phenylephrine to maintain MAP > 65 mmHg for adequate end organ perfusion -currently off phenylephrine -07/14: Blood cultures growing E coli and propionibacterium acnes, -07/14: Urine culture: No growth -continue cefepime (07/14) -07/17: Discontinue vancomycin, -07/19: Status post cystoscopy, right retrograde pyelogram, right ureteral stent placement, patient was made ICU status after the procedure since she had low blood pressures and remained tachycardic. -07/20: Patient remained hypotensive, started albumin for volume expansion, started phenylephrine, give additional amiodarone bolus with improvement in heart rate. Will repeat blood cultures. Will try and maintain systolic pressures > 90 mmHg given her severe cardiomyopathy -midodrine was discontinued (2) Bacteremia: Code(s): R78.81 - Bacteremia Status: Acute Assessment and Plan: E coli bacteremia, continue antibiotics as above (3) UTI (urinary tract infection): Code(s): N39.0 - Urinary tract infection, site not specified Status: Acute Assessment and Plan: UA was reflective of UTI, patient also presented on 07/05/2024 and was diagnosed with UTI and gentleman back -cultures negative -continue antibiotics as above (4) Atrial fibrillation with rapid ventricular response: Code(s): I48.91 - Unspecified atrial fibrillation Status: Acute Assessment and Plan: Patient has a history of AFib, on Coumadin at home -presented on 07/14/2024 with AFib RVR, was given metoprolol which further dropped her blood pressures, patient has synchronous cardioversion, which was unsuccessful. Was given amiodarone bolus in the ER and transferred to the ICU -The ICU patient was in AFib RVR and hypotensive, patient was given the bolus of amiodarone in the ICU and started on amiodarone infusion -patient remains on amiodarone heart rate 90s to 110s, will continue amiodarone -cardiology has been consulted from the ER -continue home metoprolol metoprolol, -patient was restarted on Coumadin, elevated INR , Coumadin was held, INR of 3.8 this morning, will continue to monitor (5) Supratherapeutic INR: Code(s): R79.1 - Abnormal coagulation profile Status: Acute Assessment and Plan: Patient was on Bactrim for UTI which probably caused her PT/INR to be elevated -INR in the ICU was > 20 and PT was > 120, patient was treated with 2 units of FFP and vitamin K on 07/15 -07/20: Continue to hold Coumadin as INR is 3.8 -hemoglobin remains stable (6) Cardiomyopathy: Code(s): I42.9 - Cardiomyopathy, unspecified Status: Acute Assessment and Plan: Echocardiogram from July 2021 showed an EF of 20-25% -patient does not have any other echocardiograms in the system -discussed with Cardiology, continue current management given patient was on vasopressors, will have limited ability to treat her with GDMT due to end-stage renal disease on peritoneal dialysis 07/15/2024: Echocardiogram Summary 1. Complete two-dimensional, color flow and Doppler transthoracic echocardiogram is performed. 2. Left ventricular chamber dimension is enlarged. 3. There is mildly increased left ventricular wall thickness. 4. Left ventricular systolic function is severely reduced, estimated at 20-25%. 5. Left ventricular wall motion shows global hypokinesis, with ant segment akinesis. 6. The left ventricular diastolic function is grade III diastolic dysfunction. 7. Right ventricular systolic function is reduced. 8. Left atrial chamber dimension is enlarged. 9. Right atrial chamber dimension is enlarged. 10. There is moderate to severe tricuspid valve regurgitation. 11. Mild pulmonary hypertension, estimated pulmonary arterial systolic pressure is 53 mmHg. 12. There is moderate to severe eccentric mitral valve regurgitation. 13. There is no aortic valve stenosis. 14. Dilated inferior vena cava with <50% collapse upon inspiration consistent with elevated right atrial pressure, 15 mmHg. (7) Hypertension: Code(s): I10 - Essential (primary) hypertension Status: Chronic Assessment and Plan: History of hypertension, this patient presented with septic shock, was a showed phenylephrine which is currently off -blood pressures are borderline likely related to infection and sepsis -will hold all antihypertensives for now as patient on pressors (8) Hypothyroidism: Code(s): E03.9 - Hypothyroidism, unspecified Status: Acute Assessment and Plan: Continue levothyroxine (9) End-stage renal disease on peritoneal dialysis: Code(s): N18.6 - End stage renal disease; Z99.2 - Dependence on renal dialysis Status: Acute Assessment and Plan: Patient with end-stage renal disease on peritoneal dialysis -nephrology has been consulted, PD per Nephrology -replace potassium and magnesium stool occult was positive (10) Anemia: Code(s): D64.9 - Anemia, unspecified Status: Chronic Assessment and Plan: Patient dropped hemoglobin on 07/15 as her INR was > 20. Patient had been on Coumadin at home, likely elevation of INR related to Bactrim -AFib RVR, was started on heparin infusion -hemoglobin this morning is 7.6, -no active bleeding noted -check iron panel, folic acid and B12 levels -stool occult was positive -appreciate GI evaluation and recommendations -transfuse PRBC if the Hb < 7.0 Plan DVT prophylaxis: Continue heparin infusion Stress ulcer prophylaxis: Protonix IV q.12 hours Nutrition: Renal dialysis diet Code Status: Full code Critical Care Time Spent: 32 minute Discussed with patient updated with her condition and plan of care. I answered all her questions Due to a high probability of clinically significant, life threatening deterioration, the patient required my highest level of preparedness to intervene emergently and I personally spent this critical care time directly and personally managing the patient. This critical care time included obtaining a history; examining the patient; pulse oximetry; ordering and review of studies; arranging urgent treatment with development of a management plan; evaluation of patient's response to treatment; frequent reassessment; and discussions with other providers. It was exclusive of separately billable procedures and treating other patients and teaching time. Please see Assessment and Plan section and the rest of the note for further information on patient assessment and treatment This dictation may have been done utilizing a voice recognition system. Attempts have been made to correct errors. However, there may be uncorrected grammatical, spelling, and recognitions errors present. Subjective Date/time seen: 07/20/24 13:59 Interval history: Reason for consult: UTI, septic shock, AFib RVR, hypotension 07/19/2024: Status post cystoscopy, right retrograde pyelogram, right ureteral stent placement 07/20/2024: Patient seen and examined the ICU, is awake, alert, oriented. Denies any shortness of breath, chest pain, nausea or vomiting. Had some chills and abdominal pain overnight improved. She she had a right ureteral stent placed yesterday. Currently on room air with adequate O2 sats, was hypotensive, tachycardic, AFib RVR. Patient was started on Miller-Synephrine and given ME about bolus x1 with improvement in blood pressures and heart rate. Potassium and magnesium were also replaced. Patient made 300 mL of urine output. Had bowel movements and tolerating diet Review of Systems Review of Systems: All systems reviewed & are unremarkable except as noted in HPI and below Exam Narrative: General: Very pleasant female in no acute distress HEENT:? Pupils are equal and reactive, sclerae is clear, moist oral mucosa Neck:? Supple Respiratory:? Clear to auscultation bilaterally, decreased air entry at bases, no wheezing, adequate air entry Cardiac:? irregularly irregular, heart rate 90s to 100s Abdomen:? Soft, nontender, nondistended, obese, PD catheter in place Extremities:, no edema, palpable pedal pulses Neuro:? Patient is awake, alert, oriented, nonfocal, answers to questions appropriately and follows simple commands in all extremities Skin:? Warm and dry Psych:? Normal mentation and affect Objective Data Vital Signs Vital Signs: Vital Signs - 24 hr 07/19/24 14:00 07/19/24 16:01 07/19/24 16:16 Temperature Pulse Rate 135 H 127 H 143 H Respiratory Rate 20 18 Blood Pressure 67/45 L 88/62 L Pulse Oximetry 97 96 Oxygen Delivery Room Air Room Air 07/19/24 16:30 07/19/24 16:30 07/19/24 16:46 Temperature 99.5 F 98.4 F Pulse Rate 131 H 137 H 134 H Respiratory Rate 18 20 Blood Pressure 95/60 L 104/93 H Pulse Oximetry 97 98 Oxygen Delivery 07/19/24 17:00 07/19/24 17:15 07/19/24 17:45 Temperature 98.5 F 97.5 F L 98.1 F Pulse Rate 135 H 137 H 140 H Respiratory Rate 20 22 H 21 H Blood Pressure 83/63 L 110/86 85/57 L Pulse Oximetry 96 98 100 Oxygen Delivery 07/19/24 18:00 07/19/24 18:15 07/19/24 19:00 Temperature 98.5 F 98.0 F Pulse Rate 133 H 133 H 135 H Respiratory Rate 21 H 22 H Blood Pressure 85/63 L 97/68 L Pulse Oximetry 97 97 Oxygen Delivery 07/19/24 20:00 07/19/24 20:00 07/19/24 20:03 Temperature 98 F Pulse Rate 133 H 131 H 124 H Respiratory Rate 24 H 22 H Blood Pressure 93/56 L Pulse Oximetry 99 99 Oxygen Delivery Room Air 07/19/24 21:04 07/19/24 22:00 07/19/24 22:15 Temperature 98.1 F 98.4 F Pulse Rate 138 H 135 H 128 H Respiratory Rate 19 15 Blood Pressure 90/48 L 84/74 L Pulse Oximetry 96 100 Oxygen Delivery 07/19/24 22:29 07/20/24 00:00 07/20/24 00:00 Temperature Pulse Rate 111 H 105 H 120 H Respiratory Rate Blood Pressure 87/60 L 100/71 Pulse Oximetry Oxygen Delivery 07/20/24 00:15 07/20/24 00:30 07/20/24 02:00 Temperature 98.4 F Pulse Rate 120 H 134 H 119 H Respiratory Rate 18 22 H Blood Pressure 109/76 Pulse Oximetry 96 99 Oxygen Delivery Room Air 07/20/24 02:00 07/20/24 02:00 07/20/24 02:16 Temperature 98.5 F Pulse Rate 119 H 119 H 110 H Respiratory Rate 17 17 Blood Pressure 104/82 104/82 104/82 Pulse Oximetry 96 96 Oxygen Delivery 07/20/24 03:33 07/20/24 03:35 07/20/24 04:00 Temperature Pulse Rate 171 H 188 H 132 H Respiratory Rate 18 Blood Pressure Pulse Oximetry 91 Oxygen Delivery Room Air 07/20/24 04:00 07/20/24 04:01 07/20/24 04:09 Temperature 99.4 F Pulse Rate 132 H 131 H Respiratory Rate Blood Pressure 81/58 L Pulse Oximetry Oxygen Delivery 07/20/24 04:49 07/20/24 05:09 07/20/24 06:00 Temperature 99.4 F 98.7 F Pulse Rate 111 H 126 H Respiratory Rate 17 Blood Pressure 136/81 Pulse Oximetry 95 Oxygen Delivery 07/20/24 06:21 07/20/24 08:00 07/20/24 08:00 Temperature 98.4 F 98.6 F Pulse Rate 129 H 130 H 132 H Respiratory Rate 23 H 18 18 Blood Pressure 112/62 80/55 L Pulse Oximetry 98 93 91 Oxygen Delivery Room Air 07/20/24 08:58 07/20/24 09:01 07/20/24 09:43 Temperature Pulse Rate 128 H 123 H 113 H Respiratory Rate Blood Pressure 91/49 L 102/64 84/54 L Pulse Oximetry Oxygen Delivery 07/20/24 09:43 07/20/24 09:44 07/20/24 10:00 Temperature 98.5 F Pulse Rate 113 H 113 H 122 H Respiratory Rate 21 H Blood Pressure 84/54 L 84/54 L 83/59 L Pulse Oximetry 94 Oxygen Delivery 07/20/24 12:00 07/20/24 12:00 Temperature 98.6 F Pulse Rate 110 H 132 H Respiratory Rate 18 18 Blood Pressure 104/72 Pulse Oximetry 95 91 Oxygen Delivery Room Air Intake/Output Intake/Output: Intake & Output 07/17/24 07/18/24 07/19/24 07/20/24 23:59 23:59 23:59 23:59 Intake Total 1173.8 1599.8 1100 1036.4 Output Total 827 1593 1323 300 Balance 346.8 6.8 -223 736.4 Meds/Results Medications: Active Medications Generic Name Dose Route Start Last Admin Trade Name Freq PRN Reason Stop Dose Admin Acetaminophen 650 mg 07/14/24 15:53 07/20/24 08:17 Acetaminophen 325 Mg Tablet PO 650 mg Q4H PRN Administration Mild Pain (1-3) or Fever Hydrocodone Bitart/Acetaminophen 1 tab 07/20/24 08:13 Hydrocodone/Acetaminophen (*Crx) 5-325 Mg Tablet PO Q6H PRN Pain Rated 4-6 Gentamicin Sulfate 1 applic 07/19/24 18:06 07/20/24 09:42 Gentamicin Sulfate 0.1% Cr 15 Gm Tube TOPICAL 08/02/24 18:07 1 applic DAILY KELLEN Administration Cefepime HCl 1 gm in 50 mls @ 100 mls/hr 07/15/24 16:00 07/19/24 17:49 Maxipime 1 Gm/Ns 50 Ml IVPB Infused Q24H KELLEN Infusion Amiodarone HCl/Dextrose 360 mg in 200 mls @ 16.667 mls/hr 07/19/24 22:00 07/20/24 09:43 Nexterone 360 Mg/D5w 200 Ml IV CONT 0.5 mg/min .Q12H KELLEN 16.67 mls/hr Administration 0.5 MG/MIN Albumin Human 100 mls @ 60 mls/hr 07/20/24 08:04 07/20/24 09:59 Albutein IVPB 07/21/24 03:43 Infused Q6H KELLEN Infusion Phenylephrine HCl 50 mg/ 250 ml in 250 mls @ 18 mls/hr 07/20/24 08:15 07/20/24 09:44 Dextrose IV CONT 60 mcg/min .[id number] KELLEN 18 mls/hr Titration Protocol 60 MCG/MIN Ondansetron HCl 4 mg 07/14/24 15:53 Ondansetron Inj 4 Mg/2 Ml Vial IV PUSH Q4H PRN Nausea Sodium Chloride 10 ml 07/15/24 14:00 07/20/24 05:12 Central Line Flush IV PUSH 10 ml Q8HR KELLEN Administration Sodium Chloride 20 ml 07/15/24 12:03 Central Line Flush IV PUSH PRN PRN after blood draws Radiology Results: ITS Impressions Chest/Abdomen/Pelvis CT 07/14/24 14:45 IMPRESSION: 1. 8 cm complex cystic lesion within the spleen which could represent a hematoma, abscess or less likely neoplasm. 2. Tiny left pleural effusion with likely combination of atelectasis and mild pulmonary edema in the dependent lungs. 3. Moderate cardiomegaly with enlargement of the central pulmonary arteries consistent with pulmonary arterial hypertension. 4. Moderate bilateral renal atrophy with bilateral nephrolithiasis including a 9 mm stone at the right ureteropelvic junction without hydronephrosis which could reflect poor renal function. 5. Small to moderate amount of ascites likely related to peritoneal dialysis with dialysis catheter in the pelvis. 6. Extensive diverticulosis. Chest X-Ray 07/18/24 05:50 Impression: Small left pleural effusion with minimal bibasilar pulmonary edema/atelectasis. Stable cardiomegaly. Abdomen Ultrasound 07/19/24 22:03 IMPRESSION: Atrophic echogenic both kidneys with cysts in the left kidney. Cystic lesion in the spleen which may be a cyst or hematoma. Clinical correlation and follow-up advised. Cyst in the right lobe of the liver. Otherwise, unremarkable Complete ultrasound of the abdomen. Retrograde Pyelogram 07/20/24 06:46 IMPRESSION: Right internal urinary stent placement Labs Labs: Laboratory Results - last 24 hr 07/20/24 07/20/24 07/20/24 03:49 03:54 04:02 WBC 7.7 RBC 2.58 L Hgb 7.9 L Hct 23.4 L MCV 90.7 MCH 30.6 MCHC 33.8 RDW 15.1 H Plt Count 289 MPV 10.8 H Immature Gran % (Auto) 9.6 H Neut % (Auto) 79.6 H Lymph % (Auto) 8.0 L [place] % (Auto) 0.8 L Eos % (Auto) 1.2 Baso % (Auto) 0.8 Lymph # (Auto) 0.62 L [place] # (Auto) 0.1 Eos # (Auto) 0.1 Baso # (Auto) 0.1 Abs Immat Gran (auto) 0.74 H Absolute Neuts (auto) 6.2 Absolute Nucleated RBC 0.180 H Nucleated RBC % 2.3 H Platelet Estimate Adequate Hypochromasia 1+ Poikilocytosis 1+ Anisocytosis 1+ Target Cells 1+ Schistocytes None seen PT 37.8 H INR 3.8 Sodium 135 L Potassium 3.5 Chloride 99 Carbon Dioxide 24 Anion Gap 12 BUN 37 H Creatinine 8.50 H Estim Creat Clear Calc 6 Estimated GFR 6 L Glucose 129 H Lactic Acid 3.0 H Calcium 9.0 Phosphorus 3.7 Magnesium 1.7 C-Reactive Protein 16.1 H Albumin 3.0 L Procalcitonin Stl Occult Blood (IFOB) Positive H 07/20/24 07/20/24 04:03 07:39 WBC RBC Hgb Hct MCV MCH MCHC RDW Plt Count MPV Immature Gran % (Auto) Neut % (Auto) Lymph % (Auto) [place] % (Auto) Eos % (Auto) Baso % (Auto) Lymph # (Auto) [place] # (Auto) Eos # (Auto) Baso # (Auto) Abs Immat Gran (auto) Absolute Neuts (auto) Absolute Nucleated RBC Nucleated RBC % Platelet Estimate Hypochromasia Poikilocytosis Anisocytosis Target Cells Schistocytes PT INR Sodium Potassium Chloride Carbon Dioxide Anion Gap BUN Creatinine Estim Creat Clear Calc Estimated GFR Glucose Lactic Acid 1.7 Calcium Phosphorus Magnesium C-Reactive Protein Albumin Procalcitonin 58.2 Stl Occult Blood (IFOB) Quality VTE Prophylaxis VTE prophylaxis: mechanical ordered
--- NOTE | 2024-07-20 15:00 | WPDGIPROGNO ---
Progress Note: A&P Assessment and Plan (1) Chronic anemia: Code(s): D64.9 - Anemia, unspecified Status: Acute (2) End stage renal disease: Code(s): N18.6 - End stage renal disease Status: Chronic (3) UTI (urinary tract infection): Code(s): N39.0 - Urinary tract infection, site not specified Status: Acute (4) Septic shock: Code(s): A41.9 - Sepsis, unspecified organism; R65.21 - Severe sepsis with septic shock Status: Acute (5) Cardiomyopathy: Code(s): I42.9 - Cardiomyopathy, unspecified Status: Acute Plan Anemia no signs of GI bleed has been noticed. Can be secondary to renal failure. I would advise the patient that she will need evaluation by endoscopy as outpatient once he is better from sepsis and infection. Splenic cyst versus hematoma has been stable. CT scan shows that the cyst to be in the spleen ultrasound says that it is in the pancreas as well as the radiologist so corrected report however advised patient to have a contrast study in 6 to 8 weeks Necessity of follow-up in the GI office has been discussed with the patient once he is better at this time will sign off please call us with any questions regular GI team will be available on Sunday if any assistance is needed Subjective Date/time seen: 07/20/24 15:00 Interval history: Patient is doing well patient is currently in ICU has history of renal failure on dialysis anemia sepsis ultrasound showed a 6 to 8 cm cyst in the spleen but the report says in the pancreas I did review the CT scan report with the ICU attending and looks like on the CT scan the cyst was in the spleen and it can represent area of hematoma. Patient currently denies any nausea vomiting abdominal pain diarrhea or constipation patient's hemoglobin is stable at 7.9 Review of Systems Constitutional: Constitutional: Denies chills, Denies fatigue, Denies fever(s), Denies headache(s), Denies malaise, Denies weight gain and Denies weight loss Eyes: Eyes: Denies change in vision ENT: Denies dizziness, Denies headache(s) and Reports other (No change in hearing) Cardiovascular: Cardiovascular: Denies chest pain, Denies dyspnea and Reports other (denies palpitations, denies orthopnea) Respiratory: Respiratory: Denies cough, Denies dyspnea and Reports other (denies sputum production, denies hemoptysis) Gastrointestinal: Gastrointestinal: Reports as per HPI Genitourinary: Genitourinary: Denies hematuria, Denies dysuria and Denies urinary incontinence Musculoskeletal: Musculoskeletal: Reports other (denies extremity edema, denies myalgia) Integumentary/Breasts: Skin/Breast: Denies new lesions and Denies rash Neurologic: Denies dizziness, Denies headache(s) and Denies seizure-like activity Endocrine: Endocrine: Denies fatigue Hematologic/Lymphatic: Hematologic/Lymphatic: Denies easy bleeding and Denies easy bruising Exam Const: General: cooperative; No acute distress Orientation/consciousness: patient oriented x3 HENMT: Head: normal to inspection Neck: Neck: supple Resp: Auscultation: clear to auscultation bilaterally Cardio: Rate: regular rate Rhythm: regular rhythm GI: Inspection: non-distended GI Palp: Yes Soft to palpation, No Tenderness to palpation present (GI) and No Palpable mass present Auscultation: normal bowel sounds Rectal Exam: deferred Skin: General skin exam: no rashes or lesions noted Neuro: General: patient oriented x3 Extrem: General: no edema Objective Data Vital Signs Vital Signs: Vital Signs - 24 hr 07/19/24 16:01 07/19/24 16:16 07/19/24 16:30 Temperature 99.5 F Pulse Rate 127 H 143 H 131 H Respiratory Rate 20 18 18 Blood Pressure 67/45 L 88/62 L 95/60 L Pulse Oximetry 97 96 97 Oxygen Delivery Room Air Room Air 07/19/24 16:30 07/19/24 16:46 07/19/24 17:00 Temperature 98.4 F 98.5 F Pulse Rate 137 H 134 H 135 H Respiratory Rate 20 20 Blood Pressure 104/93 H 83/63 L Pulse Oximetry 98 96 Oxygen Delivery 07/19/24 17:15 07/19/24 17:45 07/19/24 18:00 Temperature 97.5 F L 98.1 F Pulse Rate 137 H 140 H 133 H Respiratory Rate 22 H 21 H Blood Pressure 110/86 85/57 L Pulse Oximetry 98 100 Oxygen Delivery 07/19/24 18:15 07/19/24 19:00 07/19/24 20:00 Temperature 98.5 F 98.0 F Pulse Rate 133 H 135 H 133 H Respiratory Rate 21 H 22 H 24 H Blood Pressure 85/63 L 97/68 L Pulse Oximetry 97 97 99 Oxygen Delivery Room Air 07/19/24 20:00 07/19/24 20:03 07/19/24 21:04 Temperature 98 F 98.1 F Pulse Rate 131 H 124 H 138 H Respiratory Rate 22 H 19 Blood Pressure 93/56 L 90/48 L Pulse Oximetry 99 96 Oxygen Delivery 07/19/24 22:00 07/19/24 22:15 07/19/24 22:29 Temperature 98.4 F Pulse Rate 135 H 128 H 111 H Respiratory Rate 15 Blood Pressure 84/74 L 87/60 L Pulse Oximetry 100 Oxygen Delivery 07/20/24 00:00 07/20/24 00:00 07/20/24 00:15 Temperature Pulse Rate 105 H 120 H 120 H Respiratory Rate 18 Blood Pressure 100/71 Pulse Oximetry 96 Oxygen Delivery Room Air 07/20/24 00:30 07/20/24 02:00 07/20/24 02:00 Temperature 98.4 F Pulse Rate 134 H 119 H 119 H Respiratory Rate 22 H 17 Blood Pressure 109/76 104/82 Pulse Oximetry 99 96 Oxygen Delivery 07/20/24 02:00 07/20/24 02:16 07/20/24 03:33 Temperature 98.5 F Pulse Rate 119 H 110 H 171 H Respiratory Rate 17 Blood Pressure 104/82 104/82 Pulse Oximetry 96 Oxygen Delivery 07/20/24 03:35 07/20/24 04:00 07/20/24 04:00 Temperature Pulse Rate 188 H 132 H 132 H Respiratory Rate 18 Blood Pressure Pulse Oximetry 91 Oxygen Delivery Room Air 07/20/24 04:01 07/20/24 04:09 07/20/24 04:49 Temperature 99.4 F 99.4 F Pulse Rate 131 H 111 H Respiratory Rate 17 Blood Pressure 81/58 L 136/81 Pulse Oximetry 95 Oxygen Delivery 07/20/24 05:09 07/20/24 06:00 07/20/24 06:21 Temperature 98.7 F 98.4 F Pulse Rate 126 H 129 H Respiratory Rate 23 H Blood Pressure 112/62 Pulse Oximetry 98 Oxygen Delivery 07/20/24 08:00 07/20/24 08:00 07/20/24 08:58 Temperature 98.6 F Pulse Rate 130 H 132 H 128 H Respiratory Rate 18 18 Blood Pressure 80/55 L 91/49 L Pulse Oximetry 93 91 Oxygen Delivery Room Air 07/20/24 09:01 07/20/24 09:43 07/20/24 09:43 Temperature Pulse Rate 123 H 113 H 113 H Respiratory Rate Blood Pressure 102/64 84/54 L 84/54 L Pulse Oximetry Oxygen Delivery 07/20/24 09:44 07/20/24 10:00 07/20/24 12:00 Temperature 98.5 F 98.6 F Pulse Rate 113 H 122 H 110 H Respiratory Rate 21 H 18 Blood Pressure 84/54 L 83/59 L 104/72 Pulse Oximetry 94 95 Oxygen Delivery 07/20/24 12:00 Temperature Pulse Rate 132 H Respiratory Rate 18 Blood Pressure Pulse Oximetry 91 Oxygen Delivery Room Air Intake/Output Intake/Output: Intake & Output 07/17/24 07/18/24 07/19/24 07/20/24 23:59 23:59 23:59 23:59 Intake Total 1173.8 1599.8 1100 1036.4 Output Total 827 1593 1323 300 Balance 346.8 6.8 -223 736.4 Meds/Results Medications: Active Medications Generic Name Dose Route Start Last Admin Trade Name Freq PRN Reason Stop Dose Admin Acetaminophen 650 mg 07/14/24 15:53 07/20/24 08:17 Acetaminophen 325 Mg Tablet PO 650 mg Q4H PRN Administration Mild Pain (1-3) or Fever Hydrocodone Bitart/Acetaminophen 1 tab 07/20/24 08:13 Hydrocodone/Acetaminophen (*Crx) 5-325 Mg Tablet PO Q6H PRN Pain Rated 4-6 Gentamicin Sulfate 1 applic 07/19/24 18:06 07/20/24 09:42 Gentamicin Sulfate 0.1% Cr 15 Gm Tube TOPICAL 08/02/24 18:07 1 applic DAILY KELLEN Administration Cefepime HCl 1 gm in 50 mls @ 100 mls/hr 07/15/24 16:00 07/19/24 17:49 Maxipime 1 Gm/Ns 50 Ml IVPB Infused Q24H KELLEN Infusion Amiodarone HCl/Dextrose 360 mg in 200 mls @ 16.667 mls/hr 07/19/24 22:00 07/20/24 09:43 Nexterone 360 Mg/D5w 200 Ml IV CONT 0.5 mg/min .Q12H KELLEN 16.67 mls/hr Administration 0.5 MG/MIN Albumin Human 100 mls @ 60 mls/hr 07/20/24 08:04 07/20/24 09:59 Albutein IVPB 07/21/24 03:43 Infused Q6H KELLEN Infusion Phenylephrine HCl 50 mg/ 250 ml in 250 mls @ 18 mls/hr 07/20/24 08:15 07/20/24 09:44 Dextrose IV CONT 60 mcg/min .[id number] KELLEN 18 mls/hr Titration Protocol 60 MCG/MIN Ondansetron HCl 4 mg 07/14/24 15:53 Ondansetron Inj 4 Mg/2 Ml Vial IV PUSH Q4H PRN Nausea Sodium Chloride 10 ml 07/15/24 14:00 07/20/24 05:12 Central Line Flush IV PUSH 10 ml Q8HR KELLEN Administration Sodium Chloride 20 ml 07/15/24 12:03 Central Line Flush IV PUSH PRN PRN after blood draws Radiology Results: ITS Impressions Chest/Abdomen/Pelvis CT 07/14/24 14:45 IMPRESSION: 1. 8 cm complex cystic lesion within the spleen which could represent a hematoma, abscess or less likely neoplasm. 2. Tiny left pleural effusion with likely combination of atelectasis and mild pulmonary edema in the dependent lungs. 3. Moderate cardiomegaly with enlargement of the central pulmonary arteries consistent with pulmonary arterial hypertension. 4. Moderate bilateral renal atrophy with bilateral nephrolithiasis including a 9 mm stone at the right ureteropelvic junction without hydronephrosis which could reflect poor renal function. 5. Small to moderate amount of ascites likely related to peritoneal dialysis with dialysis catheter in the pelvis. 6. Extensive diverticulosis. Chest X-Ray 07/18/24 05:50 Impression: Small left pleural effusion with minimal bibasilar pulmonary edema/atelectasis. Stable cardiomegaly. Abdomen Ultrasound 07/19/24 22:03 IMPRESSION: Atrophic echogenic both kidneys with cysts in the left kidney. Cystic lesion in the spleen which may be a cyst or hematoma. Clinical correlation and follow-up advised. Cyst in the right lobe of the liver. Otherwise, unremarkable Complete ultrasound of the abdomen. Retrograde Pyelogram 07/20/24 06:46 IMPRESSION: Right internal urinary stent placement Labs Labs: Laboratory Results - last 24 hr 07/20/24 07/20/2407/20/25 03:49 03:54 04:02 WBC 7.7 RBC 2.58 L Hgb 7.9 L Hct 23.4 L MCV 90.7 MCH 30.6 MCHC 33.8 RDW 15.1 H Plt Count 289 MPV 10.8 H Immature Gran % (Auto) 9.6 H Neut % (Auto) 79.6 H Lymph % (Auto) 8.0 L [place] % (Auto) 0.8 L Eos % (Auto) 1.2 Baso % (Auto) 0.8 Lymph # (Auto) 0.62 L [place] # (Auto) 0.1 Eos # (Auto) 0.1 Baso # (Auto) 0.1 Abs Immat Gran (auto) 0.74 H Absolute Neuts (auto) 6.2 Absolute Nucleated RBC 0.180 H Nucleated RBC % 2.3 H Platelet Estimate Adequate Hypochromasia 1+ Poikilocytosis 1+ Anisocytosis 1+ Target Cells 1+ Schistocytes None seen PT 37.8 H INR 3.8 Sodium 135 L Potassium 3.5 Chloride 99 Carbon Dioxide 24 Anion Gap 12 BUN 37 H Creatinine 8.50 H Estim Creat Clear Calc 6 Estimated GFR 6 L Glucose 129 H Lactic Acid 3.0 H Calcium 9.0 Phosphorus 3.7 Magnesium 1.7 C-Reactive Protein 16.1 H Albumin 3.0 L Procalcitonin Stl Occult Blood (IFOB) Positive H 07/20/24 07/20/24 04:03 07:39 WBC RBC Hgb Hct MCV MCH MCHC RDW Plt Count MPV Immature Gran % (Auto) Neut % (Auto) Lymph % (Auto) [place] % (Auto) Eos % (Auto) Baso % (Auto) Lymph # (Auto) [place] # (Auto) Eos # (Auto) Baso # (Auto) Abs Immat Gran (auto) Absolute Neuts (auto) Absolute Nucleated RBC Nucleated RBC % Platelet Estimate Hypochromasia Poikilocytosis Anisocytosis Target Cells Schistocytes PT INR Sodium Potassium Chloride Carbon Dioxide Anion Gap BUN Creatinine Estim Creat Clear Calc Estimated GFR Glucose Lactic Acid 1.7 Calcium Phosphorus Magnesium C-Reactive Protein Albumin Procalcitonin 58.2 Stl Occult Blood (IFOB)
[2024-07-20] MEDS: AMIODARONE 360 MG/D5W 200 ML 360 MG/200 ML BAG 33.33 MG IV CONT ×2 (16:37→22:36)
[2024-07-20] MEDS: CEFEPIME 1 GM/NS 50 ML 1 GM/50 ML BAG IVPB (17:03)
[2024-07-21] VITALS (22 sets, daily range): BP systolic 86–144; BP diastolic 50–92; PULSE 89–117; RESP 15–23; TEMP 36.7–37; O2SAT 93–100
[2024-07-21] MEDS: ALBUMIN HUMAN 25% 25 GM/100 ML 100 ML IVPB (02:05)
[2024-07-21] MEDS: AMIODARONE 360 MG/D5W 200 ML 360 MG/200 ML BAG 33.33 MG IV CONT ×3 (04:32→17:42)
[2024-07-21] MEDS: CENTRAL LINE FLUSH 10 ML IV PUSH ×2 (05:47→15:33)
[2024-07-21 05:53] LABS: Basophils Absolute Auto 0.1 K/mm3 (0.0-0.1); Basophils Percent Auto 0.3 % (0.2-1.2); Eosinophils Absolute Auto 0.2 K/mm3 (0-0.3); Eosinophils Percent Auto 0.8 % (0-4.4); Immature Granulocyte Absolute 1.13 K/mm3 (0.00-0.031); Immature Granulocyte Percent A 5.3 % (0-0.5); Lymphocytes Absolute Auto 1.09 K/mm3 (0.9-3.2); Lymphocytes Percent Auto 5.1 % (18.3-44.2); Mean Corpuscular HGB Conc 34.9 g/dl (32-36); Mean Platelet Volume 11.5 fl (7.4-10.4); Monocytes Absolute Auto 0.9 K/mm3 (0.1-0.6); Neutrophils Absolute Auto 17.9 K/mm3 (1.3-6.7); Neutrophils Percent Auto 84.5 % (45.5-73.1); Nucleated Red Blood Cells Perc 0.6 % (0.0-0.2); Platelet Count Result 236 k/mm3 (150-375); Red Cell Distribution Width 14.9 % (11.5-14.5); White Blood Count 21.2 K/mm3 (4.5-10.0)
[2024-07-21 06:09] LABS: Prothrombin Time 50.5 Seconds (11.1-14.7)
[2024-07-21 06:16] LABS: Alanine Aminotransferase 25 U/L (6-35); Albumin Level 3.6 g/dL (3.5-5.1); Alkaline Phosphatase 102 U/L (38-126); Anion Gap 12 mmol/L (4-12); Aspartate Amino Transferase 26 U/L (14-36); Bilirubin,Total 0.9 mg/dL (0.2-1.3); Blood Urea Nitrogen 43 mg/dL (7-17); Carbon Dioxide 23 mmol/L (22-30); Chloride 99 mmol/L (98-107); Estimated CRCL calculation 6 ml/min; Estimated Glomerular Filt Rate 5; Glucose 110 mg/dL (65-110); Lipase 134 U/L (23-300); Potassium 4.2 mmol/L (3.4-5.0); Sodium 134 mmol/L (137-145)
[2024-07-21 06:50] LABS: Hematocrit 17.2 % (37.0-47.0)
[2024-07-21 06:52] LABS: Anisocytosis 1+; Hypochromasia 1+; Platelet Estimate Adequate (Adequate); Schistocytes None Seen; Target Cells 2+
[2024-07-21 07:01] LABS: INR 5.6
[2024-07-21 08:59] LABS: Prothrombin Time 54.1 Seconds (11.1-14.7)
[2024-07-21 09:00] LABS: Partial Thromboplastin Time 96.6 Seconds (22.3-36.8)
[2024-07-21 09:04] LABS: Partial Thromboplastin Time 85.1 Seconds (22.3-36.8)
[2024-07-21 09:09] LABS: INR 6.1
[2024-07-21 09:34] LABS: Basophils Absolute Auto 0.1 K/mm3 (0.0-0.1); Basophils Percent Auto 0.3 % (0.2-1.2); Eosinophils Absolute Auto 0.2 K/mm3 (0-0.3); Eosinophils Percent Auto 0.8 % (0-4.4); Immature Granulocyte Absolute 0.99 K/mm3 (0.00-0.031); Lymphocytes Absolute Auto 0.95 K/mm3 (0.9-3.2); Lymphocytes Percent Auto 4.8 % (18.3-44.2); Mean Corpuscular HGB Conc 35.3 g/dl (32-36); Mean Corpuscular Hemoglobin 30.3 pg (26-34); Mean Corpuscular Volume 86.1 fl (80-100); Mean Platelet Volume 11.9 fl (7.4-10.4); Monocytes Absolute Auto 0.6 K/mm3 (0.1-0.6); Monocytes Percent Auto 3.1 % (2.6-8.5); Neutrophils Absolute Auto 17.2 K/mm3 (1.3-6.7); Nucleated Red Blood Cells Perc 0.8 % (0.0-0.2); Platelet Count Result 220 k/mm3 (150-375); Red Blood Count 2.01 M/mm3 (4.2-5.4); Red Cell Distribution Width 14.9 % (11.5-14.5)
[2024-07-21 09:58] LABS: Hematocrit 17.3 % (37.0-47.0); Hemoglobin 6.1 g/dL (12.0-15.0)
[2024-07-21 10:00] LABS: Anisocytosis 1+; Hypochromasia 1+; Platelet Estimate Adequate (Adequate); Schistocytes None Seen; Target Cells 2+
[2024-07-21] MEDS: PHYTONADIONE ADULT INJ 10 MG in DEXTROSE 5% IN WATER 50 ML 100 MG IVPB (10:04)
--- NOTE | 2024-07-21 11:10 | WPDUROPN2 ---
Progress Note: A&P Assessment and Plan (1) Ureterolithiasis: Code(s): N20.1 - Calculus of ureter Status: Acute (2) End stage renal disease: Code(s): N18.6 - End stage renal disease Status: Chronic (3) End-stage renal disease on peritoneal dialysis: Code(s): N18.6 - End stage renal disease; Z99.2 - Dependence on renal dialysis Status: Acute Plan Her ureteral stent in place. No current plans for intervention on her stone at this point. Will need definitive stone management in the future Subjective Subjective Date/Time Seen: 07/21/24 11:10 Interval history: Remains in ICU. Discussed patient with ICU team. Anemia noted. Discussed with patient. She makes very little urine. Stated she did have some bloody urine yesterday. She states it is now clear today. Again her urine output is minimal Exam Narrative: Resting comfortably Looks stable from the foot of the bed Objective Data Vital Signs Vital Signs: Vital Signs - 24 hr 07/20/24 12:00 07/20/24 12:00 07/20/24 12:00 Temperature 98.6 F Pulse Rate 110 H 132 H 108 H Respiratory Rate 18 18 Blood Pressure 104/72 Pulse Oximetry 95 91 Oxygen Delivery Room Air Fraction of Inspired Oxygen 07/20/24 12:00 07/20/24 12:00 07/20/24 14:00 Temperature Pulse Rate 105 H 105 H 95 Respiratory Rate 18 Blood Pressure 104/72 104/72 97/48 L Pulse Oximetry 100 Oxygen Delivery Fraction of Inspired Oxygen 07/20/24 14:00 07/20/24 14:00 07/20/24 14:00 Temperature Pulse Rate 95 97 97 Respiratory Rate Blood Pressure 97/48 L 97/48 L Pulse Oximetry Oxygen Delivery Fraction of Inspired Oxygen 07/20/24 16:00 07/20/24 16:00 07/20/24 16:00 Temperature 99.1 F Pulse Rate 121 H 121 H 116 H Respiratory Rate 22 H Blood Pressure 124/97 H 124/97 H 124/97 H Pulse Oximetry 98 Oxygen Delivery Fraction of Inspired Oxygen 07/20/24 16:00 07/20/24 16:00 07/20/24 16:36 Temperature Pulse Rate 132 H 115 H 123 H Respiratory Rate 18 Blood Pressure 121/81 Pulse Oximetry 91 Oxygen Delivery Room Air Fraction of Inspired Oxygen 07/20/24 16:37 07/20/24 17:03 07/20/24 18:00 Temperature Pulse Rate 108 H 113 H 106 H Respiratory Rate Blood Pressure 121/81 120/52 L Pulse Oximetry Oxygen Delivery Fraction of Inspired Oxygen 07/20/24 18:00 07/20/24 18:00 07/20/24 18:00 Temperature Pulse Rate 106 H 106 H 106 H Respiratory Rate 21 H Blood Pressure 88/65 L 88/65 L 88/65 L Pulse Oximetry 94 Oxygen Delivery Fraction of Inspired Oxygen 07/20/24 20:00 07/20/24 20:00 07/20/24 20:00 Temperature Pulse Rate 105 H 105 H Respiratory Rate Blood Pressure 109/59 L Pulse Oximetry Oxygen Delivery Room Air Fraction of Inspired Oxygen 07/20/24 20:00 07/20/24 20:15 07/20/24 20:30 Temperature 98.8 F Pulse Rate 105 H 110 H 102 H Respiratory Rate 23 H Blood Pressure 109/59 L 109/59 L 113/70 Pulse Oximetry 99 Oxygen Delivery Fraction of Inspired Oxygen 07/20/24 22:00 07/20/24 22:00 07/20/24 22:00 Temperature Pulse Rate 93 93 93 Respiratory Rate 20 Blood Pressure 118/66 118/66 Pulse Oximetry 95 Oxygen Delivery Fraction of Inspired Oxygen 07/20/24 22:00 07/20/24 22:36 07/20/24 22:36 Temperature Pulse Rate 93 101 H 101 H Respiratory Rate Blood Pressure 118/66 124/52 L 124/52 L Pulse Oximetry Oxygen Delivery Fraction of Inspired Oxygen 07/20/24 22:36 07/20/24 23:48 07/21/24 00:00 Temperature Pulse Rate 101 H 96 99 Respiratory Rate Blood Pressure 124/52 L 105/60 106/73 Pulse Oximetry Oxygen Delivery Fraction of Inspired Oxygen 07/21/24 00:00 07/21/24 00:00 07/21/24 00:00 Temperature 98.6 F Pulse Rate 99 99 Respiratory Rate 22 H Blood Pressure 106/73 Pulse Oximetry 97 Oxygen Delivery Room Air Fraction of Inspired Oxygen 07/21/24 00:10 07/21/24 00:30 07/21/24 02:00 Temperature Pulse Rate 99 100 100 Respiratory Rate Blood Pressure 106/73 116/66 Pulse Oximetry Oxygen Delivery Fraction of Inspired Oxygen 07/21/24 02:00 07/21/24 02:05 07/21/24 02:06 Temperature Pulse Rate 100 97 101 H Respiratory Rate 15 Blood Pressure 101/50 L 101/50 L 101/50 L Pulse Oximetry 93 Oxygen Delivery Fraction of Inspired Oxygen 07/21/24 04:00 07/21/24 04:00 07/21/24 04:00 Temperature Pulse Rate 98 98 Respiratory Rate Blood Pressure 118/74 118/74 Pulse Oximetry Oxygen Delivery Room Air Fraction of Inspired Oxygen 07/21/24 04:00 07/21/24 04:00 07/21/24 04:32 Temperature 98.4 F Pulse Rate 98 98 103 H Respiratory Rate 16 Blood Pressure 118/74 111/51 L Pulse Oximetry 95 Oxygen Delivery Fraction of Inspired Oxygen 07/21/24 04:32 07/21/24 06:00 07/21/24 06:00 Temperature Pulse Rate 103 H 107 H 107 H Respiratory Rate 19 Blood Pressure 111/51 L 99/63 L Pulse Oximetry 95 Oxygen Delivery Fraction of Inspired Oxygen 07/21/24 06:02 07/21/24 06:02 07/21/24 08:00 Temperature Pulse Rate 93 91 101 H Respiratory Rate Blood Pressure 99/63 L 99/63 L Pulse Oximetry Oxygen Delivery Fraction of Inspired Oxygen 07/21/24 08:00 07/21/24 09:14 Temperature 98.1 F Pulse Rate 94 Respiratory Rate 16 Blood Pressure 118/55 L Pulse Oximetry 95 96 Oxygen Delivery Room Air Fraction of Inspired Oxygen 21 Intake/Output Intake/Output: Intake & Output 07/18/24 07/19/24 07/20/24 07/21/24 23:59 23:59 23:59 23:59 Intake Total 1599.8 1100 2159.7 548.9 Output Total 1593 1323 300 100 Balance 6.8 -223 1859.7 448.9 Meds/Results Medications: Active Medications Generic Name Dose Route Start Last Admin Trade Name Freq PRN Reason Stop Dose Admin Acetaminophen 650 mg 07/14/24 15:53 07/20/24 08:17 Acetaminophen 325 Mg Tablet PO 650 mg Q4H PRN Administration Mild Pain (1-3) or Fever Hydrocodone Bitart/Acetaminophen 1 tab 07/20/24 08:13 Hydrocodone/Acetaminophen (*Crx) 5-325 Mg Tablet PO Q6H PRN Pain Rated 4-6 Gentamicin Sulfate 1 applic 07/19/24 18:06 07/20/24 09:42 Gentamicin Sulfate 0.1% Cr 15 Gm Tube TOPICAL 08/02/24 18:07 1 applic DAILY KELLEN Administration Phenylephrine HCl 50 mg/ 250 ml in 250 mls @ 0 mls/hr 07/20/24 08:15 07/21/24 06:02 Dextrose IV CONT 0 mcg/min .Q0M KELLEN 0 mls/hr Titration Protocol 0 MCG/MIN Amiodarone HCl/Dextrose 360 mg in 200 mls @ 33.333 mls/hr 07/20/24 16:33 07/21/24 06:02 Nexterone 360 Mg/D5w 200 Ml IV CONT 1 mg/min .Q6H KELLEN 33.33 mls/hr Infusion 1 MG/MIN Sodium Chloride 250 mls @ 30 mls/hr 07/21/24 09:58 Normal Saline Iv IV CONT 07/21/24 18:17 .Q8H20M STA Meropenem 500 mg in 100 mls @ 200 mls/hr 07/21/24 12:00 IVPB Q24H KELLEN Ondansetron HCl 4 mg 07/14/24 15:53 Ondansetron Inj 4 Mg/2 Ml Vial IV PUSH Q4H PRN Nausea Pantoprazole Sodium 40 mg 07/21/24 21:00 Pantoprazole Sodium Iv 40 Mg Vial IV PUSH Q12HR KELLEN Sodium Chloride 10 ml 07/15/24 14:00 07/21/24 05:47 Central Line Flush IV PUSH 10 ml Q8HR KELLEN Administration Sodium Chloride 20 ml 07/15/24 12:03 Central Line Flush IV PUSH PRN PRN after blood draws Radiology Results: ITS Impressions Chest/Abdomen/Pelvis CT 07/14/24 14:45 IMPRESSION: 1. 8 cm complex cystic lesion within the spleen which could represent a hematoma, abscess or less likely neoplasm. 2. Tiny left pleural effusion with likely combination of atelectasis and mild pulmonary edema in the dependent lungs. 3. Moderate cardiomegaly with enlargement of the central pulmonary arteries consistent with pulmonary arterial hypertension. 4. Moderate bilateral renal atrophy with bilateral nephrolithiasis including a 9 mm stone at the right ureteropelvic junction without hydronephrosis which could reflect poor renal function. 5. Small to moderate amount of ascites likely related to peritoneal dialysis with dialysis catheter in the pelvis. 6. Extensive diverticulosis. Abdomen Ultrasound 07/19/24 22:03 IMPRESSION: Atrophic echogenic both kidneys with cysts in the left kidney. Cystic lesion in the spleen which may be a cyst or hematoma. Clinical correlation and follow-up advised. Cyst in the right lobe of the liver. Otherwise, unremarkable Complete ultrasound of the abdomen. Retrograde Pyelogram 07/20/24 06:46 IMPRESSION: Right internal urinary stent placement Chest X-Ray 07/21/24 05:46 Impression: Small left pleural effusion and probable minimal bibasilar pulmonary edema. Stable cardiomegaly. Labs Labs: Laboratory Results - last 24 hr 07/21/24 07/21/24 07/21/24 05:47 08:30 09:22 WBC 21.2 H 20.0 H RBC 2.00 L 2.01 L Hgb 6.0 L* 6.1 L* Hct 17.2 L* 17.3 L* MCV 86.0 D 86.1 MCH 30.0 30.3 MCHC 34.9 35.3 RDW 14.9 H 14.9 H Plt Count 236 220 MPV 11.5 H 11.9 H Immature Gran % (Auto) 5.3 H 5.0 H Neut % (Auto) 84.5 H 86.0 H Lymph % (Auto) 5.1 L 4.8 L [place] % (Auto) 4.0 3.1 Eos % (Auto) 0.8 0.8 Baso % (Auto) 0.3 0.3 Lymph # (Auto) 1.09 0.95 [place] # (Auto) 0.9 H 0.6 Eos # (Auto) 0.2 0.2 Baso # (Auto) 0.1 0.1 Abs Immat Gran (auto) 1.13 H 0.99 H Absolute Neuts (auto) 17.9 H 17.2 H Absolute Nucleated RBC 0.130 H 0.160 H Nucleated RBC % 0.6 H 0.8 H Platelet Estimate Adequate Adequate Hypochromasia 1+ 1+ Anisocytosis 1+ 1+ Target Cells 2+ 2+ Schistocytes None seen None seen PT 50.5 H D 54.1 H INR 5.6 H* 6.1 H* APTT 85.1 H 96.6 H Sodium 134 L Potassium 4.2 Chloride 99 Carbon Dioxide 23 Anion Gap 12 BUN 43 H Creatinine 8.90 H Estim Creat Clear Calc 6 Estimated GFR 5 L Glucose 110 Lactic Acid 1.0 Calcium 9.0 Total Bilirubin 0.9 AST 26 ALT 25 Alkaline Phosphatase 102 Total Protein 6.0 L Albumin 3.6 Lipase 134
[2024-07-21] MEDS: MEROPENEM 500 MG/NS 100 ML 500 MG/100 ML BAG 200 MG IVPB (11:24)
[2024-07-21] MEDS: PANTOPRAZOLE SODIUM IV 40 MG VIAL IV PUSH (11:42)
--- NOTE | 2024-07-21 12:31 | PCFNICU ---
ICU Rounding Note: Pt current nutrition is Renal Dialysis Last recorded weight is 94.3 kg, stable Bowel Motility: +BM reported 07/21 Labs Reviewed:Cr 8.9, GFR 5, BUN 43, Na 134, Hgb 6.1, Hct 17.3 Meds Noted:Protonix, Meropenem Skin: WNL Additional Notes: Patient tolerating a Renal Dialysis diet. Peritoneal Dialysis patient. 1 unit of blood to be given today. Agree with diet orders. Following daily in ICU rounds. Monitoring intakes, labs, weights, supplement tolerance, plan of care Follow up in 5 days.
--- NOTE | 2024-07-21 12:41 | P.PNNP_ITS ---
Progress Note: A&P Assessment and Plan (1) End stage renal disease: Code(s): N18.6 - End stage renal disease Status: Chronic Assessment and Plan: * resume nightly CCPD * no evidence of peritonitis by PD fluid analysis done in ER * follow electrolytes, volume status, and clearance * adjust PD prescription as needed (2) Septic shock: Code(s): A41.9 - Sepsis, unspecified organism; R65.21 - Severe sepsis with septic shock Status: Acute Assessment and Plan: * resolving * as noted by presentation with fever, chills, and hypotension along with Afib with RVR * s/p 3L fluid resuscitation but remained hypotension * hypotension worsened by use of IV metoprolol in ER (given in an attempt to control Afib with RVR) * central line placed and started on vasopressors for persistent low BP * briefly back on vasopressors on 07/20 but has since been weaned off phenylephrine again * culture data noted: * blood culture with E. coli and Proprionibacterium acnes * urine culture with no growth (but urine culture from 07/05 with E. coli as well) * repeat cultures pending * follow trend of hemodynamics * on antibiotics (3) Bacteremia: Code(s): R78.81 - Bacteremia Status: Acute Assessment and Plan: * presumed source for sepsis/septic shock * blood culture with E.coli and Proprionibacterium acnes * suspected urinary source (see urine culture from 07/05) * on antibiotics * follow repeat cultures * see #2 (4) UTI (urinary tract infection): Code(s): N39.0 - Urinary tract infection, site not specified Status: Acute Assessment and Plan: * admission UA highly suggestive * diagnosed with UTI ~ 10 days ago prior admission by recent ER visit * urine culture at that time grew E. coli * repeat urine culture (this admission) negative to date * already on antibiotics (5) Atrial fibrillation with rapid ventricular response: Code(s): I48.91 - Unspecified atrial fibrillation Status: Acute Assessment and Plan: * noted on presentation to ER * known history * attempts at rate control in ER with IV metoprolol failed (and resulted in worsening hypotension) * failed attempted cardioversion in ER as well * continue rate control strategy and anticoagulation * appears somewhat resistant to aggressive medical therapy * Cardiology following (6) Cardiomyopathy: Code(s): I42.9 - Cardiomyopathy, unspecified Status: Acute Assessment and Plan: * known history: * last echo from July 2021 with an EF of 20-25% * repeat Echo noted (07/15/24): * left ventricular systolic function estimated at 20-25%. * grade III diastolic dysfunction * moderate to severe tricuspid valve regurgitation. * mild pulmonary hypertension, estimated pulmonary arterial systolic pressure is 53 mmHg. * moderate to severe eccentric mitral valve regurgitation * appears relatively compensated at this time * Cardiology following (7) Anemia: Code(s): D64.9 - Anemia, unspecified Status: Chronic Assessment and Plan: * due to ESRD and acute illness * complicated by supratherapetic INR on presentation and today * s/p FFP and Vitamin K on admission * s/p IV Vitamin K today * follow trend of INR * anemia studies with adequate iron, B12, and folate * PRBC transfusion per protocol * Retacrit while hospitalized * follow trend of H/H (8) Hypertension: Code(s): I10 - Essential (primary) hypertension Status: Chronic Assessment and Plan: * presented with hypotension and hemodynamic instability * weaned off vasopressor therapy (and briefly restarted on 07/20 but off again) * BP medications on hold due to soft BPs at this time * consider midodrine (?) * follow trend of hemodynamics Will continue to follow. L Subjective Date/time seen: 07/21/24 12:41 Interval history: Follow-up for end stage renal disease on peritoneal dialysis. Unable to see yesterday () due to weather and road conditions -- chart reviewed since last seen; s/p cystoscopy on 07/19 with right ureteral stent placement but later that evening had to restarted on maryam-synephrine as well as amiodarone gtts due to hypotension and worsening atrial fibrillation with RVR; currently, remains on amidarone gtt with better controlled heart rate and has since been weaned off maryam-synephrine with relative stability in blood pressure/MAP; noted drop in H/H this AM in conjunction with coagulopathy with and INR of 6.1; unable to get peritoneal dialysis last night (due to inability of dialysis nurse to come in due to weather and road conditions). Exam 2 Narrative: General: WD/WN female in NAD Heart: IRRR and tachycardic; normal S1 and S2; no rub Lungs: clear anteriorly but decreased at bases Abdomen: soft, nontender, nondistended, positive bowel sounds Extremities: no cyanosis or clubbing; trace edema Skin: warm and dry Objective Data Vital Signs Vital Signs: Vital Signs Temp Pulse Resp BP Pulse Ox O2 Del Method FiO2 07/21/24 12:00 98.2 F 104 H 17 118/84 96 07/21/24 10:33 98 07/21/24 10:00 98 18 123/68 95 07/21/24 10:00 98 07/21/24 09:14 96 Room Air 21 07/21/24 08:00 98.1 F 94 16 118/55 L 95 07/21/24 08:00 101 H 07/21/24 06:02 91 99/63 L 07/21/24 06:02 93 99/63 L 07/21/24 06:00 107 H 19 99/63 L 95 07/21/24 06:00 107 H 07/21/24 04:32 103 H 111/51 L 07/21/24 04:32 103 H 111/51 L 07/21/24 04:00 98.4 F 98 16 118/74 95 07/21/24 04:00 98 07/21/24 04:00 Room Air 07/21/24 04:00 98 118/74 07/21/24 04:00 98 118/74 07/21/24 02:06 101 H 101/50 L 07/21/24 02:05 97 101/50 L 07/21/24 02:00 100 15 101/50 L 93 07/21/24 02:00 100 07/21/24 00:30 100 116/66 07/21/24 00:10 99 106/73 07/21/24 00:00 98.6 F 99 22 H 106/73 97 07/21/24 00:00 99 07/21/24 00:00 Room Air 07/21/24 00:00 99 106/73 07/20/24 23:48 96 105/60 07/20/24 22:36 101 H 124/52 L 07/20/24 22:36 101 H 124/52 L 07/20/24 22:36 101 H 124/52 L 07/20/24 22:00 93 118/66 07/20/24 22:00 93 118/66 07/20/24 22:00 93 07/20/24 22:00 93 20 118/66 95 07/20/24 20:30 102 H 113/70 07/20/24 20:15 110 H 109/59 L 07/20/24 20:00 98.8 F 105 H 23 H 109/59 L 99 07/20/24 20:00 105 H 07/20/24 20:00 Room Air 07/20/24 20:00 105 H 109/59 L 07/20/24 18:00 106 H 88/65 L 07/20/24 18:00 106 H 88/65 L 07/20/24 18:00 106 H 21 H 88/65 L 94 07/20/24 18:00 106 H Intake/Output Intake/Output: Intake & Output 07/18/24 07/19/24 07/20/24 07/21/24 23:59 23:59 23:59 23:59 Intake Total 1599.8 1100 2159.7 1268.9 Output Total 1593 1323 300 100 Balance 6.8 -223 1859.7 1168.9 Meds/Results Medications: Active Medications Generic Name Dose Route Start Last Admin Trade Name Freq PRN Reason Stop Dose Admin Acetaminophen 650 mg 07/14/24 15:53 07/20/24 08:17 Acetaminophen 325 Mg Tablet PO 650 mg Q4H PRN Administration Mild Pain (1-3) or Fever Hydrocodone Bitart/Acetaminophen 1 tab 07/20/24 08:13 Hydrocodone/Acetaminophen (*Crx) 5-325 Mg Tablet PO Q6H PRN Pain Rated 4-6 Gentamicin Sulfate 1 applic 07/19/24 18:06 07/20/24 09:42 Gentamicin Sulfate 0.1% Cr 15 Gm Tube TOPICAL 08/02/24 18:07 1 applic DAILY KELLEN Administration Phenylephrine HCl 50 mg/ 250 ml in 250 mls @ 0 mls/hr 07/20/24 08:15 07/21/24 06:02 Dextrose IV CONT 0 mcg/min .Q0M KELLEN 0 mls/hr Titration Protocol 0 MCG/MIN Amiodarone HCl/Dextrose 360 mg in 200 mls @ 33.333 mls/hr 07/20/24 16:33 07/21/24 12:00 Nexterone 360 Mg/D5w 200 Ml IV CONT 1 mg/min .Q6H KELLEN 33.33 mls/hr Administration 1 MG/MIN Sodium Chloride 250 mls @ 30 mls/hr 07/21/24 09:58 07/21/24 15:33 Normal Saline Iv IV CONT 07/21/24 18:17 30 mls/hr .Q8H20M STA Administration Meropenem 500 mg in 100 mls @ 200 mls/hr 07/21/24 12:00 07/21/24 11:24 IVPB 200 mls/hr Q24H KELLEN Administration Ondansetron HCl 4 mg 07/14/24 15:53 Ondansetron Inj 4 Mg/2 Ml Vial IV PUSH Q4H PRN Nausea Pantoprazole Sodium 40 mg 07/21/24 21:00 Pantoprazole Sodium Iv 40 Mg Vial IV PUSH Q12HR KELLEN Sodium Chloride 10 ml 07/15/24 14:00 07/21/24 15:33 Central Line Flush IV PUSH 10 ml Q8HR KELLEN Administration Sodium Chloride 20 ml 07/15/24 12:03 Central Line Flush IV PUSH PRN PRN after blood draws Radiology Results: ITS Impressions Chest/Abdomen/Pelvis CT 07/14/24 14:45 IMPRESSION: 1. 8 cm complex cystic lesion within the spleen which could represent a hematoma, abscess or less likely neoplasm. 2. Tiny left pleural effusion with likely combination of atelectasis and mild pulmonary edema in the dependent lungs. 3. Moderate cardiomegaly with enlargement of the central pulmonary arteries consistent with pulmonary arterial hypertension. 4. Moderate bilateral renal atrophy with bilateral nephrolithiasis including a 9 mm stone at the right ureteropelvic junction without hydronephrosis which could reflect poor renal function. 5. Small to moderate amount of ascites likely related to peritoneal dialysis with dialysis catheter in the pelvis. 6. Extensive diverticulosis. Abdomen Ultrasound 07/19/24 22:03 IMPRESSION: Atrophic echogenic both kidneys with cysts in the left kidney. Cystic lesion in the spleen which may be a cyst or hematoma. Clinical correlation and follow-up advised. Cyst in the right lobe of the liver. Otherwise, unremarkable Complete ultrasound of the abdomen. Retrograde Pyelogram 07/20/24 06:46 IMPRESSION: Right internal urinary stent placement Chest X-Ray 07/21/24 05:46 Impression: Small left pleural effusion and probable minimal bibasilar pulmonary edema. Stable cardiomegaly. Labs Labs: Laboratory Tests 07/21/24 09:22 07/21/24 05:47 PT 50.5 H D INR 6.1 H* Lactic Acid 1.0 Calcium 9.0 Total Bilirubin 0.9 AST 26 ALT 25 Alkaline Phosphatase 102 Total Protein 6.0 L Albumin 3.6 Lipase 134
--- NOTE | 2024-07-21 12:56 | PM.PNCARD ---
Progress Note: A&P Assessment and Plan (1) Atrial fibrillation with rapid ventricular response: Code(s): I48.91 - Unspecified atrial fibrillation Status: Acute Assessment and Plan: -she remains in RVR despite IV amiodarone infusion, high dose of beta-blockers -reviewing her chart shows that she has had cardioversion in the past and has reverted back to atrial fibrillation -I think part of her tachycardic response is because of underlying UTI and her low EF to maintain cardiac output Currently heart rates around 110 BP acceptable - I think she will need an AV silvana ablation and the possibility of a [employer] to help her lV function and ventricular rates as well. Consider trnasfer to a facility with EP availability -No warfarin today, INR tomorrow (2) CHF (congestive heart failure): Qualifiers: Heart failure chronicity: acute Heart failure type: unspecified Qualified Code(s): I50.9 - Heart failure, unspecified Code(s): I50.9 - Heart failure, unspecified Status: Acute Assessment and Plan: She appears compensated at this time. (3) Hypotension: Code(s): I95.9 - Hypotension, unspecified Status: Acute Assessment and Plan: Secondary to UTI, sepsis. Blood pressure is stable. (4) Cardiomyopathy: Code(s): I42.9 - Cardiomyopathy, unspecified Status: Acute Assessment and Plan: EF 20-25% in 2021. Limited options for GDMT as she has ESRD/soft BP. Subjective Date/time seen: 07/21/24 12:56 Interval history: Remains in RVR Denies chest pain or dyspnea Date of service 07/21/2024: Review of Systems Review of Systems: All systems reviewed & are unremarkable except as noted in HPI and below Exam Const: General: comfortable, no acute distress, alert and awake Orientation/consciousness: patient oriented x3 HENMT: Head: normal to inspection Eyes: General: appearance normal, both eyes and all related structures Pupils: Equal, round and reactive pupils present Neck: Neck: normal visual inspection, supple and no JVD Carotids: normal carotid upstroke Resp: Effort & Inspection: normal respiratory effort Auscultation: clear to auscultation bilaterally Cardio: Rate: regular rate Rhythm: abnormal rhythm irregularly irregular Heart sounds: S1 normal heart sound present, S2 normal heart sound present and no murmurs GI: Auscultation: normal bowel sounds Skin: General skin exam: normal color Neuro: General: patient oriented x3 Cranial nerves: Yes Equal, round and reactive pupils present Extrem: Other: Trace bilateral lower extremity edema Psych: Appearance: grossly normal Mental Status: mental status grossly normal Objective Data Vital Signs Vital Signs: Vital Signs - 24 hr 07/20/24 14:00 07/20/24 14:00 07/20/24 14:00 Temperature Pulse Rate 95 95 97 Respiratory Rate 18 Blood Pressure 97/48 L 97/48 L Pulse Oximetry 100 Oxygen Delivery Fraction of Inspired Oxygen 07/20/24 14:00 07/20/24 16:00 07/20/24 16:00 Temperature Pulse Rate 97 121 H 121 H Respiratory Rate Blood Pressure 97/48 L 124/97 H 124/97 H Pulse Oximetry Oxygen Delivery Fraction of Inspired Oxygen 07/20/24 16:00 07/20/24 16:00 07/20/24 16:00 Temperature 37.3 C Pulse Rate 116 H 132 H 115 H Respiratory Rate 22 H 18 Blood Pressure 124/97 H Pulse Oximetry 98 91 Oxygen Delivery Room Air Fraction of Inspired Oxygen 07/20/24 16:36 07/20/24 16:37 07/20/24 17:03 Temperature Pulse Rate 123 H 108 H 113 H Respiratory Rate Blood Pressure 121/81 121/81 120/52 L Pulse Oximetry Oxygen Delivery Fraction of Inspired Oxygen 07/20/24 18:00 07/20/24 18:00 07/20/24 18:00 Temperature Pulse Rate 106 H 106 H 106 H Respiratory Rate 21 H Blood Pressure 88/65 L 88/65 L Pulse Oximetry 94 Oxygen Delivery Fraction of Inspired Oxygen 07/20/24 18:00 07/20/24 20:00 07/20/24 20:00 Temperature Pulse Rate 106 H 105 H Respiratory Rate Blood Pressure 88/65 L 109/59 L Pulse Oximetry Oxygen Delivery Room Air Fraction of Inspired Oxygen 07/20/24 20:00 07/20/24 20:00 07/20/24 20:15 Temperature 37.1 C Pulse Rate 105 H 105 H 110 H Respiratory Rate 23 H Blood Pressure 109/59 L 109/59 L Pulse Oximetry 99 Oxygen Delivery Fraction of Inspired Oxygen 07/20/24 20:30 07/20/24 22:00 07/20/24 22:00 Temperature Pulse Rate 102 H 93 93 Respiratory Rate 20 Blood Pressure 113/70 118/66 Pulse Oximetry 95 Oxygen Delivery Fraction of Inspired Oxygen 07/20/24 22:00 07/20/24 22:00 07/20/24 22:36 Temperature Pulse Rate 93 93 101 H Respiratory Rate Blood Pressure 118/66 118/66 124/52 L Pulse Oximetry Oxygen Delivery Fraction of Inspired Oxygen 07/20/24 22:36 07/20/24 22:36 07/20/24 23:48 Temperature Pulse Rate 101 H 101 H 96 Respiratory Rate Blood Pressure 124/52 L 124/52 L 105/60 Pulse Oximetry Oxygen Delivery Fraction of Inspired Oxygen 07/21/24 00:00 07/21/24 00:00 07/21/24 00:00 Temperature Pulse Rate 99 99 Respiratory Rate Blood Pressure 106/73 Pulse Oximetry Oxygen Delivery Room Air Fraction of Inspired Oxygen 07/21/24 00:00 07/21/24 00:10 07/21/24 00:30 Temperature 37.0 C Pulse Rate 99 99 100 Respiratory Rate 22 H Blood Pressure 106/73 106/73 116/66 Pulse Oximetry 97 Oxygen Delivery Fraction of Inspired Oxygen 07/21/24 02:00 07/21/24 02:00 07/21/24 02:05 Temperature Pulse Rate 100 100 97 Respiratory Rate 15 Blood Pressure 101/50 L 101/50 L Pulse Oximetry 93 Oxygen Delivery Fraction of Inspired Oxygen 07/21/24 02:06 07/21/24 04:00 07/21/24 04:00 Temperature Pulse Rate 101 H 98 98 Respiratory Rate Blood Pressure 101/50 L 118/74 118/74 Pulse Oximetry Oxygen Delivery Fraction of Inspired Oxygen 07/21/24 04:00 07/21/24 04:00 07/21/24 04:00 Temperature 36.9 C Pulse Rate 98 98 Respiratory Rate 16 Blood Pressure 118/74 Pulse Oximetry 95 Oxygen Delivery Room Air Fraction of Inspired Oxygen 07/21/24 04:32 07/21/24 04:32 07/21/24 06:00 Temperature Pulse Rate 103 H 103 H 107 H Respiratory Rate Blood Pressure 111/51 L 111/51 L Pulse Oximetry Oxygen Delivery Fraction of Inspired Oxygen 07/21/24 06:00 07/21/24 06:02 07/21/24 06:02 Temperature Pulse Rate 107 H 93 91 Respiratory Rate 19 Blood Pressure 99/63 L 99/63 L 99/63 L Pulse Oximetry 95 Oxygen Delivery Fraction of Inspired Oxygen 07/21/24 08:00 07/21/24 08:00 07/21/24 09:14 Temperature 36.7 C Pulse Rate 101 H 94 Respiratory Rate 16 Blood Pressure 118/55 L Pulse Oximetry 95 96 Oxygen Delivery Room Air Fraction of Inspired Oxygen 21 07/21/24 10:00 07/21/24 10:00 07/21/24 10:33 Temperature Pulse Rate 98 98 98 Respiratory Rate 18 Blood Pressure 123/68 Pulse Oximetry 95 Oxygen Delivery Fraction of Inspired Oxygen 07/21/24 12:00 07/21/24 12:00 07/21/24 12:00 Temperature 36.8 C Pulse Rate 98 104 H 103 H Respiratory Rate 17 Blood Pressure 118/84 Pulse Oximetry 96 Oxygen Delivery Fraction of Inspired Oxygen 07/21/24 12:44 Temperature 36.8 C Pulse Rate 89 Respiratory Rate 21 H Blood Pressure 87/74 L Pulse Oximetry 96 Oxygen Delivery Fraction of Inspired Oxygen Intake/Output Intake/Output: Intake & Output 07/18/24 07/19/24 07/20/24 07/21/24 23:59 23:59 23:59 23:59 Intake Total 1599.8 1100 2159.7 698.9 Output Total 1593 1323 300 100 Balance 6.8 -223 1859.7 598.9 Meds/Results Medications: Active Medications Generic Name Dose Route Start Last Admin Trade Name Freq PRN Reason Stop Dose Admin Acetaminophen 650 mg 07/14/24 15:53 07/20/24 08:17 Acetaminophen 325 Mg Tablet PO 650 mg Q4H PRN Administration Mild Pain (1-3) or Fever Hydrocodone Bitart/Acetaminophen 1 tab 07/20/24 08:13 Hydrocodone/Acetaminophen (*Crx) 5-325 Mg Tablet PO Q6H PRN Pain Rated 4-6 Gentamicin Sulfate 1 applic 07/19/24 18:06 07/20/24 09:42 Gentamicin Sulfate 0.1% Cr 15 Gm Tube TOPICAL 08/02/24 18:07 1 applic DAILY KELLEN Administration Phenylephrine HCl 50 mg/ 250 ml in 250 mls @ 0 mls/hr 07/20/24 08:15 07/21/24 06:02 Dextrose IV CONT 0 mcg/min .Q0M KELLEN 0 mls/hr Titration Protocol 0 MCG/MIN Amiodarone HCl/Dextrose 360 mg in 200 mls @ 33.333 mls/hr 07/20/24 16:33 07/21/24 12:00 Nexterone 360 Mg/D5w 200 Ml IV CONT 1 mg/min .Q6H KELLEN 33.33 mls/hr Administration 1 MG/MIN Sodium Chloride 250 mls @ 30 mls/hr 07/21/24 09:58 Normal Saline Iv IV CONT 07/21/24 18:17 .Q8H20M STA Meropenem 500 mg in 100 mls @ 200 mls/hr 07/21/24 12:00 07/21/24 11:24 IVPB 200 mls/hr Q24H KELLEN Administration Ondansetron HCl 4 mg 07/14/24 15:53 Ondansetron Inj 4 Mg/2 Ml Vial IV PUSH Q4H PRN Nausea Pantoprazole Sodium 40 mg 07/21/24 21:00 Pantoprazole Sodium Iv 40 Mg Vial IV PUSH Q12HR KELLEN Sodium Chloride 10 ml 07/15/24 14:00 07/21/24 05:47 Central Line Flush IV PUSH 10 ml Q8HR KELLEN Administration Sodium Chloride 20 ml 07/15/24 12:03 Central Line Flush IV PUSH PRN PRN after blood draws Radiology Results: ITS Impressions Chest/Abdomen/Pelvis CT 07/14/24 14:45 IMPRESSION: 1. 8 cm complex cystic lesion within the spleen which could represent a hematoma, abscess or less likely neoplasm. 2. Tiny left pleural effusion with likely combination of atelectasis and mild pulmonary edema in the dependent lungs. 3. Moderate cardiomegaly with enlargement of the central pulmonary arteries consistent with pulmonary arterial hypertension. 4. Moderate bilateral renal atrophy with bilateral nephrolithiasis including a 9 mm stone at the right ureteropelvic junction without hydronephrosis which could reflect poor renal function. 5. Small to moderate amount of ascites likely related to peritoneal dialysis with dialysis catheter in the pelvis. 6. Extensive diverticulosis. Abdomen Ultrasound 07/19/24 22:03 IMPRESSION: Atrophic echogenic both kidneys with cysts in the left kidney. Cystic lesion in the spleen which may be a cyst or hematoma. Clinical correlation and follow-up advised. Cyst in the right lobe of the liver. Otherwise, unremarkable Complete ultrasound of the abdomen. Retrograde Pyelogram 07/20/24 06:46 IMPRESSION: Right internal urinary stent placement Chest X-Ray 07/21/24 05:46 Impression: Small left pleural effusion and probable minimal bibasilar pulmonary edema. Stable cardiomegaly. Labs Labs: Laboratory Results - last 24 hr 07/21/24 07/21/24 07/21/24 05:47 08:30 09:22 WBC 21.2 H 20.0 H RBC 2.00 L 2.01 L Hgb 6.0 L* 6.1 L* Hct 17.2 L* 17.3 L* MCV 86.0 D 86.1 MCH 30.0 30.3 MCHC 34.9 35.3 RDW 14.9 H 14.9 H Plt Count 236 220 MPV 11.5 H 11.9 H Immature Gran % (Auto) 5.3 H 5.0 H Neut % (Auto) 84.5 H 86.0 H Lymph % (Auto) 5.1 L 4.8 L [place] % (Auto) 4.0 3.1 Eos % (Auto) 0.8 0.8 Baso % (Auto) 0.3 0.3 Lymph # (Auto) 1.09 0.95 [place] # (Auto) 0.9 H 0.6 Eos # (Auto) 0.2 0.2 Baso # (Auto) 0.1 0.1 Abs Immat Gran (auto) 1.13 H 0.99 H Absolute Neuts (auto) 17.9 H 17.2 H Absolute Nucleated RBC 0.130 H 0.160 H Nucleated RBC % 0.6 H 0.8 H Platelet Estimate Adequate Adequate Hypochromasia 1+ 1+ Anisocytosis 1+ 1+ Target Cells 2+ 2+ Schistocytes None seen None seen PT 50.5 H D 54.1 H INR 5.6 H* 6.1 H* APTT 85.1 H 96.6 H Sodium 134 L Potassium 4.2 Chloride 99 Carbon Dioxide 23 Anion Gap 12 BUN 43 H Creatinine 8.90 H Estim Creat Clear Calc 6 Estimated GFR 5 L Glucose 110 Lactic Acid 1.0 Calcium 9.0 Total Bilirubin 0.9 AST 26 ALT 25 Alkaline Phosphatase 102 Total Protein 6.0 L Albumin 3.6 Lipase 134 Blood Type Antibody Screen Crossmatch 07/21/24 11:21 WBC RBC Hgb Hct MCV MCH MCHC RDW Plt Count MPV Immature Gran % (Auto) Neut % (Auto) Lymph % (Auto) [place] % (Auto) Eos % (Auto) Baso % (Auto) Lymph # (Auto) [place] # (Auto) Eos # (Auto) Baso # (Auto) Abs Immat Gran (auto) Absolute Neuts (auto) Absolute Nucleated RBC Nucleated RBC % Platelet Estimate Hypochromasia Anisocytosis Target Cells Schistocytes PT INR APTT Sodium Potassium Chloride Carbon Dioxide Anion Gap BUN Creatinine Estim Creat Clear Calc Estimated GFR Glucose Lactic Acid Calcium Total Bilirubin AST ALT Alkaline Phosphatase Total Protein Albumin Lipase Blood Type B Positive Antibody Screen Negative Crossmatch See Detail Quality VTE Prophylaxis VTE prophylaxis: mechanical ordered
--- NOTE | 2024-07-21 13:53 | P.PNINT_ITS ---
Progress Note: A&P Assessment and Plan (1) Septic shock: Code(s): A41.9 - Sepsis, unspecified organism; R65.21 - Severe sepsis with septic shock Status: Acute Assessment and Plan: 07/14/2024: Patient presented with fevers, chills, hypotension. -Patient was in the ER on 07/05 and was diagnosed with UTI and sent home on Bactrim only to return on 07/14 with hypotension, fever with chills, AFib RVR -was given 3 L IV fluid bolus, -patient was in AFib, hypotension, was given metoprolol which further caused more hypotension, patient was cardioverted, given IV fluids despite which she remained hypotensive -central line was inserted in the ICU by ER physician, started on phenylephrine to maintain MAP > 65 mmHg for adequate end organ perfusion -currently off phenylephrine -07/14: Blood cultures growing E coli and propionibacterium acnes, -07/14: Urine culture: No growth -07/17: Discontinue vancomycin, -07/19: Status post cystoscopy, right retrograde pyelogram, right ureteral stent placement, patient was made ICU status after the procedure since she had low blood pressures and remained tachycardic. -07/20: Patient remained hypotensive, started albumin for volume expansion, started phenylephrine, give additional amiodarone bolus with improvement in heart rate. 07/20: repeat blood cultures pending -07/21: Discontinue cefepime and start meropenem (07/21) given remains hypotensive and was started on phenylephrine yesterday (2) Bacteremia: Code(s): R78.81 - Bacteremia Status: Acute Assessment and Plan: E coli bacteremia, continue antibiotics as above (3) UTI (urinary tract infection): Code(s): N39.0 - Urinary tract infection, site not specified Status: Acute Assessment and Plan: UA was reflective of UTI, patient also presented on 07/05/2024 and was diagnosed with UTI and gentleman back -cultures negative -continue antibiotics as above (4) Atrial fibrillation with rapid ventricular response: Code(s): I48.91 - Unspecified atrial fibrillation Status: Acute Assessment and Plan: Patient has a history of AFib, on Coumadin at home -presented on 07/14/2024 with AFib RVR, was given metoprolol which further dropped her blood pressures, patient has synchronous cardioversion, which was unsuccessful. Was given amiodarone bolus in the ER and transferred to the ICU -The ICU patient was in AFib RVR and hypotensive, patient was given the bolus of amiodarone in the ICU and started on amiodarone infusion -patient remains on amiodarone heart rate 90s to 110s, will continue amiodarone -cardiology has been consulted from the ER -continue home metoprolol metoprolol, -patient was restarted on Coumadin, elevated INR , Coumadin was held, INR of 3.8 this morning, will continue to monitor -had discussed with Cardiology, given that patient has received digoxin, metoprolol, p.o. amiodarone and now on continues amiodarone infusion, recommendations were to transfer patient to higher level of care for electrophysiology evaluation and possible ablation 07/21: Patient has been accepted to [facility] in the ICU, Dr Mendoza is the admitting physician, once patient arrives there EP will be consulted. Patient will be transferred once bed is available (5) Supratherapeutic INR: Code(s): R79.1 - Abnormal coagulation profile Status: Acute Assessment and Plan: Patient was on Bactrim for UTI which probably caused her PT/INR to be elevated -INR in the ICU was > 20 and PT was > 120, patient was treated with 2 units of FFP and vitamin K on 07/15 -07/20: Continue to hold Coumadin as INR is 3.8 07/21: INR 6.1, patient given vitamin K 10 mg IVPB x1, not giving FFP as patient is a dialysis patient, and is also will receive packed RBCs, presenting volume overload, TRALI, TACO. Recheck INR later today (6) Cardiomyopathy: Code(s): I42.9 - Cardiomyopathy, unspecified Status: Acute Assessment and Plan: Echocardiogram from July 2021 showed an EF of 20-25% -patient does not have any other echocardiograms in the system -discussed with Cardiology, continue current management given patient was on vasopressors, will have limited ability to treat her with GDMT due to end-stage renal disease on peritoneal dialysis 07/15/2024: Echocardiogram Summary 1. Complete two-dimensional, color flow and Doppler transthoracic echocardiogram is performed. 2. Left ventricular chamber dimension is enlarged. 3. There is mildly increased left ventricular wall thickness. 4. Left ventricular systolic function is severely reduced, estimated at 20-25%. 5. Left ventricular wall motion shows global hypokinesis, with ant segment akinesis. 6. The left ventricular diastolic function is grade III diastolic dysfunction. 7. Right ventricular systolic function is reduced. 8. Left atrial chamber dimension is enlarged. 9. Right atrial chamber dimension is enlarged. 10. There is moderate to severe tricuspid valve regurgitation. 11. Mild pulmonary hypertension, estimated pulmonary arterial systolic pressure is 53 mmHg. 12. There is moderate to severe eccentric mitral valve regurgitation. 13. There is no aortic valve stenosis. 14. Dilated inferior vena cava with <50% collapse upon inspiration consistent with elevated right atrial pressure, 15 mmHg. (7) Hypertension: Code(s): I10 - Essential (primary) hypertension Status: Chronic Assessment and Plan: History of hypertension, this patient presented with septic shock, was a showed phenylephrine which is currently off -blood pressures are borderline likely related to infection and sepsis -will hold all antihypertensives for now as patient on pressors (8) Hypothyroidism: Code(s): E03.9 - Hypothyroidism, unspecified Status: Acute Assessment and Plan: Continue levothyroxine (9) End-stage renal disease on peritoneal dialysis: Code(s): N18.6 - End stage renal disease; Z99.2 - Dependence on renal dialysis Status: Acute Assessment and Plan: Patient with end-stage renal disease on peritoneal dialysis -nephrology has been consulted, PD per Nephrology -potassium and magnesium within normal limits (10) Anemia: Code(s): D64.9 - Anemia, unspecified Status: Chronic Assessment and Plan: Patient dropped hemoglobin on 07/15 as her INR was > 20. Patient had been on Coumadin at home, likely elevation of INR related to Bactrim -AFib RVR, was started on heparin infusion -hemoglobin this morning is 7.6, -no active bleeding noted -check iron panel, folic acid and B12 levels -stool occult was positive -appreciate GI evaluation and recommendations -transfuse PRBC if the Hb < 7.0 07/21: Hemoglobin was 6.1 this morning, 1 unit of packed RBCs has been ordered, will repeat CBC 1 hour post infusion Plan DVT prophylaxis: Off anticoagulation due to anemia and elevated INR Stress ulcer prophylaxis: Protonix IV q.12 hours Nutrition: Renal dialysis diet Code Status: Full code Critical Care Time Spent: 38 minutes Discussed with patient updated with her condition and plan of care. I answered all her questions 07/21: Patient has been accepted to [facility] in the ICU, Dr Mendoza is the admitting physician, once patient arrives there EP will be consulted Due to a high probability of clinically significant, life threatening deterioration, the patient required my highest level of preparedness to intervene emergently and I personally spent this critical care time directly and personally managing the patient. This critical care time included obtaining a history; examining the patient; pulse oximetry; ordering and review of studies; arranging urgent treatment with development of a management plan; evaluation of patient's response to treatment; frequent reassessment; and discussions with other providers. It was exclusive of separately billable procedures and treating other patients and teaching time. Please see Assessment and Plan section and the rest of the note for further information on patient assessment and treatment This dictation may have been done utilizing a voice recognition system. Attempts have been made to correct errors. However, there may be uncorrected grammatical, spelling, and recognitions errors present. Subjective Date/time seen: 07/21/24 13:53 Interval history: Reason for consult: UTI, septic shock, AFib RVR, hypotension 07/19/2024: Status post cystoscopy, right retrograde pyelogram, right ureteral stent placement 07/21/2024: Patient seen and examined the ICU, is awake, alert, oriented. Denies any shortness of breath, chest pain, nausea or vomiting or abdominal pain. Remains on room air with adequate O2 sats. -remains on amiodarone infusion at 1 mg/min, heart rate is better controlled. -off Miller-Synephrine since midnight -dropped hemoglobin to 6.1 this morning and INR also of 6.1 this a.m.. -did not get peritoneal dialysis overnight Review of Systems Review of Systems: All systems reviewed & are unremarkable except as noted in HPI and below Exam Narrative: General: Very pleasant female in no acute distress HEENT:? Pupils are equal and reactive, sclerae is clear, moist oral mucosa Neck:? Supple Respiratory:? Clear to auscultation bilaterally, decreased air entry at bases, no wheezing, adequate air entry Cardiac:? irregularly irregular, heart rate 90s to 100s Abdomen:? Soft, nontender, nondistended, obese, PD catheter in place Extremities:, no edema, palpable pedal pulses Neuro:? Patient is awake, alert, oriented, nonfocal, answers to questions appropriately and follows simple commands in all extremities Skin:? Warm and dry Psych:? Normal mentation and affect Objective Data Vital Signs Vital Signs: Vital Signs - 24 hr 07/20/24 14:00 07/20/24 14:00 07/20/24 14:00 Temperature Pulse Rate 95 95 97 Respiratory Rate 18 Blood Pressure 97/48 L 97/48 L Pulse Oximetry 100 Oxygen Delivery Fraction of Inspired Oxygen 07/20/24 14:00 07/20/24 16:00 07/20/24 16:00 Temperature Pulse Rate 97 121 H 121 H Respiratory Rate Blood Pressure 97/48 L 124/97 H 124/97 H Pulse Oximetry Oxygen Delivery Fraction of Inspired Oxygen 07/20/24 16:00 07/20/24 16:00 07/20/24 16:00 Temperature 99.1 F Pulse Rate 116 H 132 H 115 H Respiratory Rate 22 H 18 Blood Pressure 124/97 H Pulse Oximetry 98 91 Oxygen Delivery Room Air Fraction of Inspired Oxygen 07/20/24 16:36 07/20/24 16:37 07/20/24 17:03 Temperature Pulse Rate 123 H 108 H 113 H Respiratory Rate Blood Pressure 121/81 121/81 120/52 L Pulse Oximetry Oxygen Delivery Fraction of Inspired Oxygen 07/20/24 18:00 07/20/24 18:00 07/20/24 18:00 Temperature Pulse Rate 106 H 106 H 106 H Respiratory Rate 21 H Blood Pressure 88/65 L 88/65 L Pulse Oximetry 94 Oxygen Delivery Fraction of Inspired Oxygen 07/20/24 18:00 07/20/24 20:00 07/20/24 20:00 Temperature Pulse Rate 106 H 105 H Respiratory Rate Blood Pressure 88/65 L 109/59 L Pulse Oximetry Oxygen Delivery Room Air Fraction of Inspired Oxygen 07/20/24 20:00 07/20/24 20:00 07/20/24 20:15 Temperature 98.8 F Pulse Rate 105 H 105 H 110 H Respiratory Rate 23 H Blood Pressure 109/59 L 109/59 L Pulse Oximetry 99 Oxygen Delivery Fraction of Inspired Oxygen 07/20/24 20:30 07/20/24 22:00 07/20/24 22:00 Temperature Pulse Rate 102 H 93 93 Respiratory Rate 20 Blood Pressure 113/70 118/66 Pulse Oximetry 95 Oxygen Delivery Fraction of Inspired Oxygen 07/20/24 22:00 07/20/24 22:00 07/20/24 22:36 Temperature Pulse Rate 93 93 101 H Respiratory Rate Blood Pressure 118/66 118/66 124/52 L Pulse Oximetry Oxygen Delivery Fraction of Inspired Oxygen 07/20/24 22:36 07/20/24 22:36 07/20/24 23:48 Temperature Pulse Rate 101 H 101 H 96 Respiratory Rate Blood Pressure 124/52 L 124/52 L 105/60 Pulse Oximetry Oxygen Delivery Fraction of Inspired Oxygen 07/21/24 00:00 07/21/24 00:00 07/21/24 00:00 Temperature Pulse Rate 99 99 Respiratory Rate Blood Pressure 106/73 Pulse Oximetry Oxygen Delivery Room Air Fraction of Inspired Oxygen 07/21/24 00:00 07/21/24 00:10 07/21/24 00:30 Temperature 98.6 F Pulse Rate 99 99 100 Respiratory Rate 22 H Blood Pressure 106/73 106/73 116/66 Pulse Oximetry 97 Oxygen Delivery Fraction of Inspired Oxygen 07/21/24 02:00 07/21/24 02:00 07/21/24 02:05 Temperature Pulse Rate 100 100 97 Respiratory Rate 15 Blood Pressure 101/50 L 101/50 L Pulse Oximetry 93 Oxygen Delivery Fraction of Inspired Oxygen 07/21/24 02:06 07/21/24 04:00 07/21/24 04:00 Temperature Pulse Rate 101 H 98 98 Respiratory Rate Blood Pressure 101/50 L 118/74 118/74 Pulse Oximetry Oxygen Delivery Fraction of Inspired Oxygen 07/21/24 04:00 07/21/24 04:00 07/21/24 04:00 Temperature 98.4 F Pulse Rate 98 98 Respiratory Rate 16 Blood Pressure 118/74 Pulse Oximetry 95 Oxygen Delivery Room Air Fraction of Inspired Oxygen 07/21/24 04:32 07/21/24 04:32 07/21/24 06:00 Temperature Pulse Rate 103 H 103 H 107 H Respiratory Rate Blood Pressure 111/51 L 111/51 L Pulse Oximetry Oxygen Delivery Fraction of Inspired Oxygen 07/21/24 06:00 07/21/24 06:02 07/21/24 06:02 Temperature Pulse Rate 107 H 93 91 Respiratory Rate 19 Blood Pressure 99/63 L 99/63 L 99/63 L Pulse Oximetry 95 Oxygen Delivery Fraction of Inspired Oxygen 07/21/24 08:00 07/21/24 08:00 07/21/24 09:14 Temperature 98.1 F Pulse Rate 101 H 94 Respiratory Rate 16 Blood Pressure 118/55 L Pulse Oximetry 95 96 Oxygen Delivery Room Air Fraction of Inspired Oxygen 21 07/21/24 10:00 07/21/24 10:00 07/21/24 10:33 Temperature Pulse Rate 98 98 98 Respiratory Rate 18 Blood Pressure 123/68 Pulse Oximetry 95 Oxygen Delivery Fraction of Inspired Oxygen 07/21/24 12:00 07/21/24 12:00 07/21/24 12:00 Temperature 98.2 F Pulse Rate 98 104 H 103 H Respiratory Rate 17 Blood Pressure 118/84 Pulse Oximetry 96 Oxygen Delivery Fraction of Inspired Oxygen 07/21/24 12:44 07/21/24 12:59 Temperature 98.2 F 98.4 F Pulse Rate 89 117 H Respiratory Rate 21 H 23 H Blood Pressure 87/74 L 86/67 L Pulse Oximetry 96 97 Oxygen Delivery Fraction of Inspired Oxygen Intake/Output Intake/Output: Intake & Output 07/18/24 07/19/24 07/20/24 07/21/24 23:59 23:59 23:59 23:59 Intake Total 1599.8 1100 2159.7 798.9 Output Total 1593 1323 300 100 Balance 6.8 -223 1859.7 698.9 Meds/Results Medications: Active Medications Generic Name Dose Route Start Last Admin Trade Name Freq PRN Reason Stop Dose Admin Acetaminophen 650 mg 07/14/24 15:53 07/20/24 08:17 Acetaminophen 325 Mg Tablet PO 650 mg Q4H PRN Administration Mild Pain (1-3) or Fever Hydrocodone Bitart/Acetaminophen 1 tab 07/20/24 08:13 Hydrocodone/Acetaminophen (*Crx) 5-325 Mg Tablet PO Q6H PRN Pain Rated 4-6 Gentamicin Sulfate 1 applic 07/19/24 18:06 07/20/24 09:42 Gentamicin Sulfate 0.1% Cr 15 Gm Tube TOPICAL 08/02/24 18:07 1 applic DAILY KELLEN Administration Phenylephrine HCl 50 mg/ 250 ml in 250 mls @ 0 mls/hr 07/20/24 08:15 07/21/24 06:02 Dextrose IV CONT 0 mcg/min .Q0M KELLEN 0 mls/hr Titration Protocol 0 MCG/MIN Amiodarone HCl/Dextrose 360 mg in 200 mls @ 33.333 mls/hr 07/20/24 16:33 07/21/24 12:00 Nexterone 360 Mg/D5w 200 Ml IV CONT 1 mg/min .Q6H KELLEN 33.33 mls/hr Administration 1 MG/MIN Sodium Chloride 250 mls @ 30 mls/hr 07/21/24 09:58 Normal Saline Iv IV CONT 07/21/24 18:17 .Q8H20M STA Meropenem 500 mg in 100 mls @ 200 mls/hr 07/21/24 12:00 07/21/24 11:24 IVPB 200 mls/hr Q24H KELLEN Administration Ondansetron HCl 4 mg 07/14/24 15:53 Ondansetron Inj 4 Mg/2 Ml Vial IV PUSH Q4H PRN Nausea Pantoprazole Sodium 40 mg 07/21/24 21:00 Pantoprazole Sodium Iv 40 Mg Vial IV PUSH Q12HR KELLEN Sodium Chloride 10 ml 07/15/24 14:00 07/21/24 05:47 Central Line Flush IV PUSH 10 ml Q8HR KELLEN Administration Sodium Chloride 20 ml 07/15/24 12:03 Central Line Flush IV PUSH PRN PRN after blood draws Radiology Results: ITS Impressions Chest/Abdomen/Pelvis CT 07/14/24 14:45 IMPRESSION: 1. 8 cm complex cystic lesion within the spleen which could represent a hematoma, abscess or less likely neoplasm. 2. Tiny left pleural effusion with likely combination of atelectasis and mild pulmonary edema in the dependent lungs. 3. Moderate cardiomegaly with enlargement of the central pulmonary arteries consistent with pulmonary arterial hypertension. 4. Moderate bilateral renal atrophy with bilateral nephrolithiasis including a 9 mm stone at the right ureteropelvic junction without hydronephrosis which could reflect poor renal function. 5. Small to moderate amount of ascites likely related to peritoneal dialysis with dialysis catheter in the pelvis. 6. Extensive diverticulosis. Abdomen Ultrasound 07/19/24 22:03 IMPRESSION: Atrophic echogenic both kidneys with cysts in the left kidney. Cystic lesion in the spleen which may be a cyst or hematoma. Clinical correlation and follow-up advised. Cyst in the right lobe of the liver. Otherwise, unremarkable Complete ultrasound of the abdomen. Retrograde Pyelogram 07/20/24 06:46 IMPRESSION: Right internal urinary stent placement Chest X-Ray 07/21/24 05:46 Impression: Small left pleural effusion and probable minimal bibasilar pulmonary edema. Stable cardiomegaly. Labs Labs: Laboratory Results - last 24 hr 07/21/24 07/21/24 07/21/24 05:47 08:30 09:22 WBC 21.2 H 20.0 H RBC 2.00 L 2.01 L Hgb 6.0 L* 6.1 L* Hct 17.2 L* 17.3 L* MCV 86.0 D 86.1 MCH 30.0 30.3 MCHC 34.9 35.3 RDW 14.9 H 14.9 H Plt Count 236 220 MPV 11.5 H 11.9 H Immature Gran % (Auto) 5.3 H 5.0 H Neut % (Auto) 84.5 H 86.0 H Lymph % (Auto) 5.1 L 4.8 L Park % (Auto) 4.0 3.1 Eos % (Auto) 0.8 0.8 Baso % (Auto) 0.3 0.3 Lymph # (Auto) 1.09 0.95 Park # (Auto) 0.9 H 0.6 Eos # (Auto) 0.2 0.2 Baso # (Auto) 0.1 0.1 Abs Immat Gran (auto) 1.13 H 0.99 H Absolute Neuts (auto) 17.9 H 17.2 H Absolute Nucleated RBC 0.130 H 0.160 H Nucleated RBC % 0.6 H 0.8 H Platelet Estimate Adequate Adequate Hypochromasia 1+ 1+ Anisocytosis 1+ 1+ Target Cells 2+ 2+ Schistocytes None seen None seen PT 50.5 H D 54.1 H INR 5.6 H* 6.1 H* APTT 85.1 H 96.6 H Sodium 134 L Potassium 4.2 Chloride 99 Carbon Dioxide 23 Anion Gap 12 BUN 43 H Creatinine 8.90 H Estim Creat Clear Calc 6 Estimated GFR 5 L Glucose 110 Lactic Acid 1.0 Calcium 9.0 Total Bilirubin 0.9 AST 26 ALT 25 Alkaline Phosphatase 102 Total Protein 6.0 L Albumin 3.6 Lipase 134 Blood Type Antibody Screen Crossmatch 07/21/24 11:21 WBC RBC Hgb Hct MCV MCH MCHC RDW Plt Count MPV Immature Gran % (Auto) Neut % (Auto) Lymph % (Auto) Park % (Auto) Eos % (Auto) Baso % (Auto) Lymph # (Auto) Park # (Auto) Eos # (Auto) Baso # (Auto) Abs Immat Gran (auto) Absolute Neuts (auto) Absolute Nucleated RBC Nucleated RBC % Platelet Estimate Hypochromasia Anisocytosis Target Cells Schistocytes PT INR APTT Sodium Potassium Chloride Carbon Dioxide Anion Gap BUN Creatinine Estim Creat Clear Calc Estimated GFR Glucose Lactic Acid Calcium Total Bilirubin AST ALT Alkaline Phosphatase Total Protein Albumin Lipase Blood Type B Positive Antibody Screen Negative Crossmatch See Detail Quality VTE Prophylaxis VTE prophylaxis: mechanical ordered
[2024-07-21] MEDS: SODIUM CHLORIDE 0.9% IV 250 ML 30 ML IV CONT (15:33)
== END 2024-07-21 17:40 | disposition short-term general hospital (02) | DRG 853 ==
LOC: ANHED 16:13 → ANHICU 17:06
PROVIDERS: Internal Medicine; Internal Medicine Interventional Cardiology; Internal Medicine Nephrology; Nurse Practitioner Gerontology; Physician Assistant; Urology; Admitting Provider Internal Medicine; Emergency Provider Family Medicine; Visit Provider Internal Medicine
PROC: 0T768DZ Dilation of Right Ureter with Intraluminal Device, Via Natural or Artificial Opening Endoscopic (ICD-10-PCS; CPT 52352; principal; 2024-07-19 15:30)
DX: A41.9 Sepsis, unspecified organism (principal); N18.6 End stage renal disease; R65.21 Severe sepsis with septic shock; N39.0 Urinary tract infection, site not specified; N20.1 Calculus of ureter; I13.2 Hypertensive heart and chronic kidney disease with heart failure and with stage 5 chronic kidney disease, or end stage renal disease; I42.9 Cardiomyopathy, unspecified; I48.20 Chronic atrial fibrillation, unspecified; E87.1 Hypo-osmolality and hyponatremia; D73.4 Cyst of spleen; I50.9 Heart failure, unspecified; B96.20 Unspecified Escherichia coli [E. coli] as the cause of diseases classified elsewhere; D63.1 Anemia in chronic kidney disease; R79.1 Abnormal coagulation profile; E87.6 Hypokalemia; E03.9 Hypothyroidism, unspecified; E86.0 Dehydration; Z99.2 Dependence on renal dialysis; Z79.01 Long term (current) use of anticoagulants; Z87.891 Personal history of nicotine dependence
CPT/HCPCS: 36415; 36430; 36556; 71045; 71250; 74176; 74420; 76700; 80048; 80053; 80069; 80202; 81001; 82274; 82607; 82746; 83540; 83550; 83605; 83690; 83735; 84100; 84145; 84443; 85025; 85610; 85730; 86140; 86706; 86850; 86900; 86901; 86923; 87040; 87086; 87186; 87340; 87637; 87641; 89051; 90945; 92960; 93005; 93306; 96361; 96365; 96375; 99291; A9270; C1751; C1758; C1769; C2617; J0282; J0692; J1160; J1644; J2185; J2250; J2270; J2371; J2470; J2704; J3370; J3430; J3475; J3480; J7030; J7040; J7050; J7060; P9016; P9017; P9047; Q5105; Q9966

== ENCOUNTER 2024-08-19 12:29 | Outpatient (CLI) | payer MEDICARE, MEDICAID, SELFPAY ==
--- OUTSIDE RECORDS SUMMARY | 2024-08-19 12:36 | XMS_ITS ---
Author Organization [facility] [place] [address] Address [address] [place] [address] Care Team Providers Care Dealer Support Technician Name Role Phone Mookie Dubois MD Unavailable [phone] Abigail Dougherty RN Unavailable [phone] Jama Hoskins MD Unavailable [phone] Porsche Becker NP Primary Care Provider Dialysis Plan of Treatment Dialysis Prescription As-Of Date Prescribed Dry Weight Primary Se tting 07/25/2024 Acute Dialysis S CA Instructions Modality Start Time Dwell Time (hours) Dextrose Strength Continuous Ambulatory [facility] Dialysis Access Type Location from Last 30 Days Dialysis Access Sites Type Status Location Placement Date Removal Da te Peritoneal Dialysis Catheter Left lower abdomen Active Left Abdomen (side) - Lower Procedures Procedure Name Priority Date/Time Associated Diagnosis Comments DIFFERENTIAL AUTO Routine 08/02/2024 5:4 5 AM ABA TUTOR CBC WITH AUTO DIFFERENTIAL Routine 08/02/2024 5:45 AM ABA TUTOR EGFR Routine 08/01/2024 6:03 AM ABA TUTOR BASIC METABOLIC PANEL Routine 08/01/2024 6:03 AM ABA TUTOR EGFR Routine 07/31/2024 8:40 AM ABA TUTOR BASIC METABOLIC PANEL Routine 07/31/2024 8:40 AM ABA TUTOR EGFR Routine 07/28/2024 4:32 AM ABA TUTOR DIFFERENTIAL AUTO Routine 07/28/2024 4:3 2 AM ABA TUTOR PHOSPHORUS Routine 07/28/2024 4:32 AM ABA TUTOR CBC WITH AUTO DIFFERENTIAL Routine 07/28/2024 4:32 AM ABA TUTOR COMPREHENSIVE METABOLIC PANEL Routine 07/28/2024 4:32 AM ABA TUTOR XR KUB IP Routine 07/27/2024 10:38 AM ABA TUTOR EGFR Routine 07/26/2024 11:38 AM ABA TUTOR DIFFERENTIAL AUTO Routine 07/26/2024 11: 38 AM ABA TUTOR CBC WITH AUTO DIFFERENTIAL Routine 07/26/2024 11:38 AM ABA TUTOR COMPREHENSIVE METABOLIC PANEL Routine 07/26/2024 11:38 AM ABA TUTOR CONTINUOUS AMBULATORY PERITONEAL DIALYSIS (CAPD) Routine 07/25/2024 3:08 PM ABA TUTOR MANUAL DIFFERENTIAL Timed 07/25/2024 8 :10 AM ABA TUTOR CBC WITH AUTO DIFFERENTIAL Timed 07/25/2024 8:10 AM ABA TUTOR TYPE AND SCREEN Timed 07/25/2024 8:10 AM ABA TUTOR EGFR Routine 07/24/2024 1:46 AM ABA TUTOR CBC WITHOUT DIFFERENTIAL Routine 07/24/2024 1:46 AM ABA TUTOR PHOSPHORUS Routine 07/24/2024 1:46 AM ABA TUTOR MAGNESIUM Routine 07/24/2024 1:46 AM ABA TUTOR BASIC METABOLIC PANEL Routine 07/24/2024 1:46 AM ABA TUTOR EGFR Routine 07/23/2024 2:02 AM ABA TUTOR PROTIME-INR Routine 07/23/2024 2:02 AM ABA TUTOR CBC WITHOUT DIFFERENTIAL Routine 07/23/2024 2:02 AM ABA TUTOR PHOSPHORUS Routine 07/23/2024 2:02 AM ABA TUTOR MAGNESIUM Routine 07/23/2024 2:02 AM ABA TUTOR BASIC METABOLIC PANEL Routine 07/23/2024 2:02 AM ABA TUTOR CRITICAL CARE Routine 07/22/2024 8:22 AM ABA TUTOR Paroxysmal atrial fibrillation (CMS/HCC) (HCC) TRANSTHORACIC ECHO (TTE) COMPLETE W DOPPLER/CF W CONTRAST STAT 07/22/2024 7:00 AM ABA TUTOR EGFR Routine 07/22/2024 5:41 AM ABA TUTOR CBC WITHOUT DIFFERENTIAL Timed 07/22/2024 5:41 AM ABA TUTOR PHOSPHORUS Routine 07/22/2024 5:41 AM ABA TUTOR MAGNESIUM Routine 07/22/2024 5:41 AM ABA TUTOR BASIC METABOLIC PANEL Routine 07/22/2024 5:41 AM ABA TUTOR CELL DIFFERENTIAL, BODY FLUID Routine 07/22/2024 3:17 AM ABA TUTOR CELL COUNT W/REFLEX DIFFERENTIAL, BODY FLUID Routine 07/22/2024 3:17 AM ABA TUTOR URINALYSIS, MICROSCOPIC ONLY STAT 07/22/2024 1:57 AM ABA TUTOR URINE CULTURE STAT 07/22/2024 1:57 AM ABA TUTOR URINALYSIS AND REFLEX TO MICROSCOPIC AND CULTURE STAT 07/22/2024 1:57 AM ABA TUTOR ECG 12-LEAD STAT 07/22/2024 1:33 AM ABA TUTOR CBC WITHOUT DIFFERENTIAL Timed 07/22/2024 12:51 AM ABA TUTOR CONTINUOUS AMBULATORY PERITONEAL DIALYSIS (CAPD) Routine 07/22/2024 12:31 AM ABA TUTOR CONTINUOUS AMBULATORY PERITONEAL DIALYSIS (CAPD) Routine 07/21/2024 11:45 PM ABA TUTOR BLOOD CULTURE STAT 07/21/2024 11:44 PM ABA TUTOR BLOOD CULTURE STAT 07/21/2024 11:44 PM ABA TUTOR CONTINUOUS AMBULATORY PERITONEAL DIALYSIS (CAPD) Routine 07/21/2024 11:43 PM ABA TUTOR CTA ABDOMEN PELVIS W WO CONTRAST ED Urgent/IP Urgent 07/21/2024 10:13 PM ABA TUTOR B CHECK SAMPLE STAT 07/21/2024 8:16 PM ABA TUTOR CRITICAL CARE Routine 07/21/2024 7:48 PM ABA TUTOR BETA-HYDROXYBUTYRATE Add-On 07/21/2024 6:55 PM ABA TUTOR T4, FREE STAT 07/21/2024 6:55 PM ABA TUTOR EGFR STAT 07/21/2024 6:55 PM ABA TUTOR THYROID FUNCTION CASCADE STAT 07/21/2024 6:55 PM ABA TUTOR PROTIME-INR STAT 07/21/2024 6:55 PM ABA TUTOR APTT STAT 07/21/2024 6:55 PM ABA TUTOR TYPE AND SCREEN Timed 07/21/2024 6:55 PM ABA TUTOR CBC WITHOUT DIFFERENTIAL STAT 07/21/2024 6:55 PM ABA TUTOR LACTATE STAT 07/21/2024 6:55 PM ABA TUTOR CALCIUM,IONIZED, WHOLE BLOOD STAT 07/21/2024 6:55 PM ABA TUTOR PHOSPHORUS STAT 07/21/2024 6:55 PM ABA TUTOR HEPATIC FUNCTION PANEL STAT 07/21/2024 6:55 PM ABA TUTOR BASIC METABOLIC PANEL STAT 07/21/2024 6:55 PM ABA TUTOR MAGNESIUM STAT 07/21/2024 6:55 PM ABA TUTOR INFECTION PREVENTION MRSA ONLY (STAPHYLOCOCCUS AUREUS) PCR Routine 07/21/2024 6:55 PM ABA TUTOR XR CHEST 1 VIEW ED Urgent/IP Urgent 07/21/2024 6:42 PM ABA TUTOR POCT GLUCOSE DEVICE Routine 07/21/2024 6 :33 PM ABA TUTOR CARDIOLOGY DOCUMENT SCAN Routine 07/15/2024 10:51 AM ABA TUTOR PROTIME-INR Routine 06/04/2024 12:25 PM ABA TUTOR Permanent atrial fibrillation (CMS/HCC) (HCC) from Last 3 Months Allergies Active Allergy Reactions Criticality Noted Date Comments Aftab Inhibitors Angioedema High 08/09/2021 Azithromycin Agitation Low 08/09/2021 Grass Pollen Sneezing Low 03/23/2022 Medications Jennifer-Silvia 0.8 mg tabletIndications:V itamin Deficiency Prevention Take 0.8 mg by mouth daily Active sevelamer (RENVELA) 800 mg tabletIndications:R enal Osteodystrophy with Hyperphosphatemia Take 1 tablet (800 mg total) by mouth 3 (three) times a day with meals Active levothyroxine (SYNTHROID) 25 mcg tabletIndications:h ypothyroidism Take 1 tablet (25 mcg total) by mouth daily Active calcitRIOL (ROCALTROL) 0.5 mcg capsuleIndications: hypocalcemia Take 0.25 mcg by mouth daily ONE TAB THREE DAYS A WEEK AND 2 TABS FOUR DAYS A WEEK Active pantoprazole DR (PROTONIX) 40 mg EC tabletIndications:T reatment of Non-Bleeding Gastric Disorder Take 1 tablet (40 mg total) by mouth daily 30 tablet 025 2024 Active midodrine (PROAMATINE) 5 mg tabletIndications:S ymptomatic Orthostatic Hypotension Take 3 tablets (15 mg total) by mouth 3 (three) times a day before meals 810 tablet 025 2024 Active metoprolol tartrate (LOPRESSOR) 25 mg immediate release tabletIndications:A trial Arrhythmia Take 0.5 tablets (12.5 mg total) by mouth 2 (two) times a day 90 tablet 025 2024 Active Additional Information Patient not taking.Reported on 08/19/2024 apixaban (ELIQUIS) 5 mg tabletIndications:a trial fibrillation Take 1 tablet (5 mg total) by mouth every 12 (twelve) hours 180 tablet 025 2024 Active amiodarone (PACERONE) 200 mg tabletIndications:P revention of Recurrent Atrial Fibrillation Take 1 tablet (200 mg total) by mouth daily 90 tablet 025 2024 Active furosemide (LASIX) 80 mg tabletIndications:R enal Disease with Edema Take 1 tablet (80 mg total) by mouth 2 (two) times a day rx #[id number] Active eplerenone (INSPRA) 50 mg tablet Take 0.5 tablets (25 mg total) by mouth daily 022 2024 Discontinued(S top Taking at Discharge) furosemide (LASIX) 80 mg tablet Take 1 tablet (80 mg total) by mouth every evening 022 2024 Discontinued(S top Taking at Discharge) warfarin (COUMADIN) 3 mg tablet Take 3.5 mg by mouth 3 (three) times a week 3.5mg, mon, wed, fri 2024 Discontinued(S top Taking at Discharge) losartan (COZAAR) 50 mg tabletIndications:H ypertensive heart disease with chronic systolic congestive heart failure (CMS/HCC) (HCC) Take 1 tablet (50 mg total) by mouth daily 30 tablet 11 022 2024 Discontinued(S top Taking at Discharge) metoprolol (LOPRESSOR) 100 mg tabletIndications:L ongstanding persistent atrial fibrillation (CMS/HCC) (HCC) Take 1 tablet by mouth twice daily 180 tablet 024 2024 Discontinued(S top Taking at Discharge) warfarin (COUMADIN) 2.5 mg tabletIndications:P ersistent atrial fibrillation (HCC) TAKE 1 & 1/2 (ONE & ONE-HALF) TABLETS BY MOUTH ONCE DAILY DIRECTED 44 tablet 024 2024 Discontinued(S top Taking at Discharge) warfarin (COUMADIN) 2.5 mg tablet Take 1 tablet (2.5 mg total) by mouth daily 30 tablet 1 024 2024 Discontinued(S top Taking at Discharge) metoprolol tartrate (LOPRESSOR) 25 mg immediate release tablet Take 1 tablet (25 mg total) by mouth 2 (two) times a day 60 tablet 025 2024 Discontinued(S top Taking at Discharge) amiodarone (PACERONE) 400 mg tablet Take 1 tablet (400 mg total) by mouth 2 (two) times a day for 24 doses 24 tablet 025 2024 Discontinued(S top Taking at Discharge) amiodarone (PACERONE) 200 mg tablet Take 1 tablet (200 mg total) by mouth daily 30 tablet 025 2024 Discontinued apixaban (ELIQUIS) 5 mg tabletIndications:a trial fibrillation Take 1 tablet (5 mg total) by mouth every 12 (twelve) hours 60 tablet 025 2024 Discontinued sodium chloride 0.9% piggyback 100 mL with meropenem 1 gram recon soln 1,000 mgIndications:Sepsi s,Urinary Tract/Genitourinary Infection Infuse 1,000 mg into a venous catheter daily for 14 days 025 2024 Discontinued(S top Taking at Discharge) Active Problems Problem Noted Date Diagnosed Date Physical deconditioning 07/25/2024 Atrial fibrillation (CMS/HCC) 08/10/2021 Immunizations Name Administration Dates Next Due Hep B Vaccine 03/04/2022,,11/25/2021,10/14/2021,2021 Influenza, Unspecified 05/03/2023 Pneumococcal, Unspecified 08/08/2021 Tdap 12/19/2023,09/27/2023,2022 Social History Tobacco Use Types Packs/Day Years Used Date Smoking Tobacco: Former Smokeless Tobacco: Never Tobacco Cessation:Counseling Given: Not Answered OASIS D0700: Social Isolation Answer Da te Recorded Frequency of experiencing loneliness or isolatio n Rarely 08/07/2024 OASIS A1250: Transportation Answer Date Recorded Lack of Transportation (Medical) No 08/07/2024 Lack of Transportation (Non-Medical) No 08/07/2024 Patient Unable or Declines to Respond No 08/07/2024 OASIS B1300: Health Literacy Answer Rafy e Recorded Frequency of needing help to read materials from doctor or pharmacy Sometimes 08/07/2024 [facility] Utilities Answer Date Recorded In the past 12 months has [employer], [employer], oil, or water [employer] threatened to shut off services in your home? No 07/26/2024 Social Connection and Isolat ion Panel [NHANES] Answer Date Recorded In a typical week, how many times do you talk on the phone with family, friends, or neighbors? More than three times a week 07/26/2024 How often do you get togethe r with friends or relatives? More than three times a week 07/26/2024 How often do you attend chur or mosque services? Patient declined 07/26/2024 Do you belong to any clubs o r organizations such as tenriism groups, unions, fraternal or athletic groups, or school groups? Patient declined 07/26/2024 How often do you attend meet ings of the clubs or organizations you belong to? Patient declined 07/26/2024 Are you , , di vorced, , never , or living with a partner? Never 07/26/2024 AUDIT-C Answer Date Recorded Q1: How often do you have a drink containing alc ohol? Monthly or less 07/26/2024 Q2: How many drinks containi ng alcohol do you have on a typical day when you are drinking? 1 or 2 07/26/2024 Q3: How often do you have si x or more drinks on one occasion? Never 07/26/2024 Overall Financial Resource Strain (CARDIA) Answe r Date Recorded How hard is it for you to pa y for the very basics like food, housing, medical care, and heating? Not very hard 07/26/2024 PHQ-2 Answer Date Recorded Patient Health Questionnaire-2 Score 1 08/04/2024 [facility] - Occupational Stress Questionnaire Answer Date Recorded Do you feel stress - tense, restless, nervous, or anxious, or unable to sleep at night because your mind is troubled all the time - these days? Only a little 07/26/2024 Hunger Vital Sign Answer Date Recorded Within the past 12 months, y ou worried that your food would run out before you got the money to buy more. Never true 07/26/19 25 Within the past 12 months, t he food you bought just didn't last and you didn't have money to get more. Never true 07/26/2024 PRAPARE - Transportation Answer Date Re corded In the past 12 months, has l ack of transportation kept you from medical appointments or from getting medications? No 07/17 In the past 12 months, has l ack of transportation kept you from meetings, work, or from getting things needed for daily living? No 08/04/2024 Housing Stability Vital Sign Answer Rafy e Recorded In the last 12 months, was t here a time when you were not able to pay the mortgage or rent on time? No 07/26/2024 In the past 12 months, how m any times have you moved where you were living? 0 07/26/2024 At any time in the past 12 m [facility], were you homeless or living in a [facility] (including now)? No 07/26/2024 Personal Safety Answer Date Recorded Have you ever been in or are you currently in a harmful physical or emotional relationship or is someone making you feel afraid or unsafe? Denies 07/25/2024 Comments Unknown Sex and Gender Information Value Date Recorded Sex Assigned at Not on file 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 ABA TUTOR Gender Identity Not on file Sexual Orientation Not on file Last Filed Vital Signs Vital Sign Reading Time Taken Comments Blood Pressure 70/40 08/19/2024 11:34 AM ABA TUTOR Pulse 105 08/19/2024 11:34 AM ABA TUTOR Temperature 36.8 ??C (98.3 ??F) 08/12/2024 1:13 PM CS T Respiratory Rate 18 08/12/2024 1:13 PM ABA TUTOR Oxygen Saturation 96% 08/19/2024 11:34 AM ABA TUTOR Inhaled Oxygen Concentration - - Weight 89.8 kg (198 lb) 08/19/2024 11:34 AM ABA TUTOR Height 152.4 cm (5') 08/19/2024 11:34 AM ABA TUTOR Body Mass Index 38.67 08/19/2024 11:34 AM ABA TUTOR Results * (ABNORMAL) Differential, auto (08/02/2024 5:45 AM ABA TUTOR) Neutrophil abs 8.3(H) 1.5 - 6.5 K/cumm Imm gran abs 0.7(H) 0.0 - 0.1 K/cumm [facility] Lymphocyte abs 1.1 0.8 - 3.3 K/cumm [facility] Monocyte abs 1.9(H) 0.2 - 0.8 K/cumm [facility] Eosinophil abs 0.4 0.0 - 0.5 K/cumm [facility] Basophil abs 0.1 0.0 - 0.1 K/cumm [facility] Neutrophil pct 67.1 % [facility] Comment: Interpretive Data Percent cell count reference ranges are not reported, since discordance with absolute values may lead to misinterpretation of CBC data. Current Interpretive Data was last revised on 2017. Imm gran pct 5.3 % [facility] Comment: Interpretive Data Percent cell count reference ranges are not reported, since discordance with absolute values may lead to misinterpretation of CBC data. Current Interpretive Data was last revised on 2017. Lymphocyte pct 8.5 % [facility] Comment: Interpretive Data Percent cell count reference ranges are not reported, since discordance with absolute values may lead to misinterpretation of CBC data. Current Interpretive Data was last revised on 2017. Monocyte pct 15.6 % [facility] Comment: Interpretive Data Percent cell count reference ranges are not reported, since discordance with absolute values may lead to misinterpretation of CBC data. Current Interpretive Data was last revised on 2017. Eosinophil pct 2.8 % [facility] Comment: Interpretive Data Percent cell count reference ranges are not reported, since discordance with absolute values may lead to misinterpretation of CBC data. Current Interpretive Data was last revised on 2017. Basophil pct 0.7 % [facility] Comment: Interpretive Data Percent cell count reference ranges are not reported, since discordance with absolute values may lead to misinterpretation of CBC data. Current Interpretive Data was last revised on 2017. Blood 08/02/2024 5:45 AM ABA TUTOR 08/02/2024 6:22 AM ABA TUTOR Padmini Mason NP LAB BLOOD ORDERABLES nal Result [facility] [id number] Department [place] [address] * (ABNORMAL) CBC with auto differential (08/02/2024 5:45 AM ABA TUTOR) WBC 12.4(H) 3.8 - 9.9 K/cumm Hgb 7.5(L) 11.9 - 15.5 g/dL [facility] Hct 28.7(L) 35.6 - 45.5 % [facility] Plt 402(H) 150 - 400 K/cumm [facility] MPV 11.2 9.1 - 12.3 fL [facility] RBC 2.53(L) 3.90 - 5.20 M/cumm [facility] MCV 113.4(H) 81.3 - 96.4 fL [facility] MCH 29.6 27.1 - 33.3 pg [facility] MCHC 26.1(L) 32.3 - 35.7 g/dL [facility] RDW CV 20.7(H) 11.1 - 14.9 % [facility] RDW SD 85.8(H) 35.7 - 48.1 fL [facility] NRBC abs 0.08(H) 0.00 - 0.01 K/cumm [facility] Blood 08/02/2024 5:45 AM ABA TUTOR 08/02/2024 6:22 AM ABA TUTOR us Padmini Villa Marlon IT SECURITY SPECIALIST LAB BLOOD ORDERABLES Fi nal Result Performing Organization Address [facility] de Phone Number [place] [id number] Department [place] [address] * (ABNORMAL) eGFR (08/01/2024 6:03 AM ABA TUTOR) eGFR 4(L) >=60 mL/min/1. 73 m2 Comment: Interpretive Data Reference Interval Normal ?>/= [...] interpretive data was last reviewed 2021. Blood 08/01/2024 6:03 AM ABA TUTOR 08/01/2024 6:37 AM ABA TUTOR us Tanisha Winter IT SECURITY SPECIALIST LAB BLOOD ORDERABLES Final Resul t Performing Organization Address [facility] de Phone Number [place] [id number] Department of Laboratories [place], [place] [id number] * (ABNORMAL) Basic metabolic panel (08/01/2024 6:03 AM ABA TUTOR) Sodium 136 135 - 145 mmol/L Potassium, pl 3.9 3.3 - 4.9 mmol/L [facility] Chloride 95(L) 97 - 110 mmol/L [facility] CO2 22 22 - 32 mmol/L [facility] Anion gap 19(H) 2 - 15 mmol/L [facility] BUN 66(H) 6 - 25 mg/dL [facility] Creatinine 9.73(H) 0.60 - 1.10 mg/dL [facility] Glucose 90 70 - 199 mg/dL [facility] Comment: Interpretive Data Fasting glucose >/= 126 [...] classification and Diagnosis of Diabetes Diabetes Care 202; 46: S19-S40. Current interpretive data was last revised 2022. Calcium 9.1 8.5 - 10.3 mg/dL [facility] Blood 08/01/2024 6:03 AM ABA TUTOR 08/01/2024 6:37 AM ABA TUTOR us Tanisha Winter NP LAB BLOOD ORDERABLES Final Resul t [facility] [id number] Department [place] [address] * (ABNORMAL) eGFR (07/31/2024 8:40 AM ABA TUTOR) eGFR 4(L) >=60 mL/min/1. 73 m2 Comment: Interpretive Data Reference Interval Normal ?>/= [...] interpretive data was last reviewed 2021. Blood 07/31/2024 8:40 AM ABA TUTOR 07/31/2024 9:42 AM ABA TUTOR us Tanisha Winter NP LAB BLOOD ORDERABLES Final Resul t [facility] [id number] Department [place] [address] * (ABNORMAL) Basic metabolic panel (07/31/2024 8:40 AM ABA TUTOR) Sodium 139 135 - 145 mmol/L Potassium, pl 3.3 3.3 - 4.9 mmol/L [facility] Chloride 95(L) 97 - 110 mmol/L [facility] CO2 22 22 - 32 mmol/L [facility] Anion gap 22(H) 2 - 15 mmol/L [facility] BUN 62(H) 6 - 25 mg/dL [facility] Creatinine 9.53(H) 0.60 - 1.10 mg/dL [facility] Glucose 85 70 - 199 mg/dL [facility] Comment: Interpretive Data Fasting glucose >/= [...] classification and Diagnosis of Diabetes Diabetes Care 202; 46: S19-S40. Current interpretive data was last revised 2022. Calcium 9.4 8.5 - 10.3 mg/dL [facility] Blood 07/31/2024 8:40 AM ABA TUTOR 07/31/2024 9:42 AM ABA TUTOR us Tanisha Winter NP LAB BLOOD ORDERABLES Final Resul t [facility] [address] Department [place] [address] * (ABNORMAL) eGFR (07/28/2024 4:32 AM ABA TUTOR) eGFR 5(L) >=60 mL/min/1. 73 m2 Comment: Interpretive Data Reference Interval Normal ?>/= [...] interpretive data was last reviewed 2021. Blood 07/28/2024 4:32 AM ABA TUTOR 07/28/2024 4:57 AM ABA TUTOR us Nga Dumont MD LAB BLOOD ORDERABL ES Final Result [facility] [id number] Department [place] [address] * (ABNORMAL) Differential, auto (07/28/2024 4:32 AM ABA TUTOR) Neutrophil abs 7.5(H) 1.5 - 6.5 K/cumm Imm gran abs 0.7(H) 0.0 - 0.1 K/cumm [facility] Lymphocyte abs 1.0 0.8 - 3.3 K/cumm [facility] Monocyte abs 1.5(H) 0.2 - 0.8 K/cumm [facility] Eosinophil abs 0.2 0.0 - 0.5 K/cumm [facility] Basophil abs 0.1 0.0 - 0.1 K/cumm [facility] Neutrophil pct 68.9 % [facility] Comment: Interpretive Data Percent cell count reference ranges are not reported, since discordance with absolute values may lead to misinterpretation of CBC data. Current Interpretive Data was last revised on 2017. Imm gran pct 5.9 % [facility] Comment: Interpretive Data Percent cell count reference ranges are not reported, since discordance with absolute values may lead to misinterpretation of CBC data. Current Interpretive Data was last revised on 2017. Lymphocyte pct 9.0 % [facility] Comment: Interpretive Data Percent cell count reference ranges are not reported, since discordance with absolute values may lead to misinterpretation of CBC data. Current Interpretive Data was last revised on 2017. Monocyte pct 13.5 % [facility] Comment: Interpretive Data Percent cell count reference ranges are not reported, since discordance with absolute values may lead to misinterpretation of CBC data. Current Interpretive Data was last revised on 2017. Eosinophil pct 1.6 % [facility] Comment: Interpretive Data Percent cell count reference ranges are not reported, since discordance with absolute values may lead to misinterpretation of CBC data. Current Interpretive Data was last revised on 2017. Basophil pct 1.1 % [facility] Comment: Interpretive Data Percent cell count reference ranges are not reported, since discordance with absolute values may lead to misinterpretation of CBC data. Current Interpretive Data was last revised on 2017. Blood 07/28/2024 4:32 AM ABA TUTOR 07/28/2024 4:57 AM ABA TUTOR us Nga Dumont MD LAB BLOOD ORDERABL ES Final Result Performing Organization Address City/State/[facility] Co de Phone Number [facility] [id number] Department [place] [address] * (ABNORMAL) CBC with auto differential (07/28/2024 4:32 AM ABA TUTOR) WBC 11.0(H) 3.8 - 9.9 K/cumm Hgb 9.5(L) 11.9 - 15.5 g/dL [facility] Hct 32.8(L) 35.6 - 45.5 % [facility] Plt 353 150 - 400 K/cumm [facility] MPV 11.6 9.1 - 12.3 fL [facility] RBC 3.33(L) 3.90 - 5.20 M/cumm [facility] MCV 98.5(H) 81.3 - 96.4 fL [facility] MCH 28.5 27.1 - 33.3 pg [facility] MCHC 29.0(L) 32.3 - 35.7 g/dL [facility] RDW CV Not Measured 11.1 - 14.9 % [facility] RDW SD Not Measured 35.7 - 48.1 fL [facility] NRBC abs 0.12(H) 0.00 - 0.01 K/cumm [facility] Blood 07/28/2024 4:32 AM ABA TUTOR 07/28/2024 4:57 AM ABA TUTOR us Nga Dumont MD LAB BLOOD ORDERABL ES Final Result Performing Organization Address City/State/[facility] Co de Phone Number [place] [phone] Department [place] [address] * Phosphorus (07/28/2024 4:32 AM ABA TUTOR) Pathologist [facility] [place] Phosphorus, pl 4.4 2.3 - 4.5 mg/dL Blood 07/28/2024 4:32 AM ABA TUTOR 07/28/2024 4:57 AM ABA TUTOR Waqas Garcia MD LAB BLOOD ORDERABLES Final Resu lt Performing Organization Address [facility] de Phone Number [place] [phone] Department [place] [address] * (ABNORMAL) Comprehensive metabolic panel (07/28/2024 4:32 AM ABA TUTOR) Pathologist [facility] Sodium 140 135 - 145 mmol/L Potassium, pl 3.1(L) 3.3 - 4.9 mmol/L [facility] Chloride 96(L) 97 - 110 mmol/L [facility] CO2 25 22 - 32 mmol/L [facility] Anion gap 19(H) 2 - 15 mmol/L [facility] BUN 47(H) 6 - 25 mg/dL [facility] Creatinine 9.08(H) 0.60 - 1.10 mg/dL [facility] Glucose 103 70 - 199 mg/dL [facility] Comment: Interpretive Data Fasting glucose >/= 126 [...] classification and Diagnosis of Diabetes Diabetes Care 2021; 46: S19-S40. Current interpretive data was last revised 2022. Calcium 9.5 8.5 - 10.3 mg/dL [facility] Bilirubin, total 0.5 0.1 - 1.2 mg/dL [facility] Protein, pl 6.1(L) 6.5 - 8.5 g/dL [facility] Albumin 3.1(L) 3.5 - 5.0 g/dL [facility] Alk phos 132(H) 40 - 130 Units/L [facility] ALT 21 7 - 45 Units/L [facility] AST 20 10 - 45 Units/L [facility] Blood 07/28/2024 4:32 AM ABA TUTOR 07/28/2024 4:57 AM ABA TUTOR us Nga Dumont MD LAB BLOOD ORDERABL ES Final Result [facility] [address] Department [place] [address] * XR Kub (07/27/2024 10:38 AM ABA TUTOR) Anatomical Region Laterality Modality Body, Abdomen N/A Computed Radiogr aphy 07/27/2024 10:4 8 AM ABA TUTOR Impressions 07/27/2024 10:48 AM ABA TUTOR Findings/impression: Limited examination given technique. Nonobstructive bowel gas pattern. ??Right double-J ureteral stent appears appropriately positioned. ??Percutaneous catheter terminating in the pelvis likely represents peritoneal dialysis catheter. ??No acute osseous abnormality. ??Lung bases are unremarkable. Electronically signed by: Peter Porter II, D.O. Narrative 07/27/2024 10:48 AM ABA TUTOR EXAMINATION: XR KUB DATE: 07/27/2024 10:25 AM INDICATION: Peritoneal dialysis catheter. COMPARISON: 07/21/2024. Procedure Note Peter Porter II, DO - 07/27/2024 EXAMINATION: XR KUB DATE: 07/27/2024 10:25 AM INDICATION: Peritoneal dialysis catheter. COMPARISON: 07/21/2024. IMPRESSION: Findings/impression: Limited examination given technique. Nonobstructive bowel gas pattern. Right double-J ureteral stent appears appropriately positioned. Percutaneous catheter terminating in the pelvis likely represents peritoneal dialysis catheter. No acute osseous abnormality. Lung bases are unremarkable. Electronically signed by: Rafael Leitman II, D.O. us Waqas Garcia MD IMG XR PROCEDURES Final Result * (ABNORMAL) eGFR (07/26/2024 11:38 AM ABA TUTOR) eGFR 4(L) >=60 mL/min/1. 73 m2 Comment: Interpretive Data Reference Interval Normal ?>/= [...] interpretive data was last reviewed 2021. Blood 07/26/2024 11:3 8 AM ABA TUTOR 07/26/2024 12:44 PM ABA TUTOR us Nga Dumont MD LAB BLOOD ORDERABL ES Final Result Performing Organization Address City/State/ZIP Co tx Phone Number [facility] [phone] Department [place] [address] * (ABNORMAL) Differential, auto (07/26/2024 11:38 AM ABA TUTOR) Neutrophil abs 11.4(H) 1.5 - 6.5 K/cumm Imm gran abs 1.1(H) 0.0 - 0.1 K/cumm [facility] Lymphocyte abs 0.7(L) 0.8 - 3.3 K/cumm [facility] Monocyte abs 1.6(H) 0.2 - 0.8 K/cumm [facility] Eosinophil abs 0.2 0.0 - 0.5 K/cumm [facility] Basophil abs 0.1 0.0 - 0.1 K/cumm [facility] Neutrophil pct 75.7 % [facility] Comment: Interpretive Data Percent cell count reference ranges are not reported, since discordance with absolute values may lead to misinterpretation of CBC data. Current Interpretive Data was last revised on 2017. Imm gran pct 6.9 % [facility] Comment: Interpretive Data Percent cell count reference ranges are not reported, since discordance with absolute values may lead to misinterpretation of CBC data. Current Interpretive Data was last revised on 2017. Lymphocyte pct 4.9 % [facility] Comment: Interpretive Data Percent cell count reference ranges are not reported, since discordance with absolute values may lead to misinterpretation of CBC data. Current Interpretive Data was last revised on 2017. Monocyte pct 10.7 % [facility] Comment: Interpretive Data Percent cell count reference ranges are not reported, since discordance with absolute values may lead to misinterpretation of CBC data. Current Interpretive Data was last revised on 2017. Eosinophil pct 1.1 % [facility] Comment: Interpretive Data Percent cell count reference ranges are not reported, since discordance with absolute values may lead to misinterpretation of CBC data. Current Interpretive Data was last revised on 2017. Basophil pct 0.7 % [facility] Comment: Interpretive Data Percent cell count reference ranges are not reported, since discordance with absolute values may lead to misinterpretation of CBC data. Current Interpretive Data was last revised on 2017. Blood 07/26/2024 11:3 8 AM ABA TUTOR 07/26/2024 12:44 PM ABA TUTOR us Nga Dumont MD LAB BLOOD ORDERABL ES Final Result [facility] [place] [id number] Department [place] [address] * (ABNORMAL) CBC with auto differential (07/26/2024 11:38 AM ABA TUTOR) WBC 15.1(H) 3.8 - 9.9 K/cumm Hgb 10.2(L) 11.9 - 15.5 g/dL [facility] Hct 34.9(L) 35.6 - 45.5 % [facility] Plt 304 150 - 400 K/cumm [facility] MPV 12.9(H) 9.1 - 12.3 fL [facility] RBC 3.54(L) 3.90 - 5.20 M/cumm [facility] MCV 98.6(H) 81.3 - 96.4 fL [facility] MCH 28.8 27.1 - 33.3 pg [facility] MCHC 29.2(L) 32.3 - 35.7 g/dL [facility] RDW CV 27.0(H) 11.1 - 14.9 % [facility] RDW SD 92.1(H) 35.7 - 48.1 fL [facility] NRBC abs 0.21(H) 0.00 - 0.01 K/cumm [facility] Blood 07/26/2024 11:3 8 AM ABA TUTOR 07/26/2024 12:44 PM ABA TUTOR Nga Dumont MD LAB BLOOD ORDERABL ES Final Result [facility] [place] [phone] [address] Department [place] [address] * (ABNORMAL) Comprehensive metabolic panel (07/26/2024 11:38 AM ABA TUTOR) Sodium 138 135 - 145 mmol/L Potassium, pl 3.2(L) 3.3 - 4.9 mmol/L [facility] Chloride 94(L) 97 - 110 mmol/L [facility] CO2 22 22 - 32 mmol/L [facility] Anion gap 22(H) 2 - 15 mmol/L [facility] BUN 51(H) 6 - 25 mg/dL [facility] Creatinine 9.60(H) 0.60 - 1.10 mg/dL [facility] Glucose 133 70 - 199 mg/dL [facility] Comment: Interpretive Data Fasting glucose >/= 126 [...] classification and Diagnosis of Diabetes Diabetes Care 2021; 46: S19-S40. Current interpretive data was last revised 2022. Calcium 10.0 8.5 - 10.3 mg/dL [facility] Bilirubin, total 0.4 0.1 - 1.2 mg/dL [facility] Protein, pl 6.7 6.5 - 8.5 g/dL [facility] Albumin 3.2(L) 3.5 - 5.0 g/dL [facility] Alk phos 127 40 - 130 Units/L [facility] ALT 26 7 - 45 Units/L [facility] AST 17 10 - 45 Units/L [facility] Blood 07/26/2024 11:3 8 AM ABA TUTOR 07/26/2024 12:44 PM ABA TUTOR us Nga Dumont MD LAB BLOOD ORDERABL ES Final Result [facility] [id number] [facility] [place] [address] * (ABNORMAL) CBC with auto differential (07/25/2024 8:10 AM ABA TUTOR) WBC 18.6(H) 3.8 - 9.9 K/cumm Hgb 9.8(L) 11.9 - 15.5 g/dL [facility] Hct 32.5(L) 35.6 - 45.5 % [facility] Plt 276 150 - 400 K/cumm [facility] MPV 12.7(H) 9.1 - 12.3 fL [facility] RBC 3.37(L) 3.90 - 5.20 M/cumm [facility] MCV 96.4 81.3 - 96.4 fL [facility] MCH 29.1 27.1 - 33.3 pg [facility] MCHC 30.2(L) 32.3 - 35.7 g/dL [facility] RDW CV 25.7(H) 11.1 - 14.9 % [facility] RDW SD 85.3(H) 35.7 - 48.1 fL [facility] NRBC abs 0.23(H) 0.00 - 0.01 K/cumm [facility] Blood 07/25/2024 8:10 AM ABA TUTOR 07/25/2024 8:32 AM ABA TUTOR Sudheer Escobar MD LAB BLOOD ORDERABLES Edited R esult - Final [facility] [id number] Department [place] [address] * (ABNORMAL) Manual Differential (07/25/2024 8:10 AM ABA TUTOR) Differential Manual Cells Counted 100 [facility] Neutrophil abs 16.6(H) 1.5 - 6.5 K/cumm [facility] Lymphocyte abs 0.6(L) 0.8 - 3.3 K/cumm [facility] Monocyte abs 1.5(H) 0.2 - 0.8 K/cumm [facility] Neutrophil pct 89.0 % [facility] Comment: Interpretive Data Percent cell count reference ranges are not reported, since discordance with absolute values may lead to misinterpretation of CBC data. Current Interpretive Data was last revised on 2017. Lymphocyte pct 3.0 % [facility] Comment: Interpretive Data Percent cell count reference ranges are not reported, since discordance with absolute values may lead to misinterpretation of CBC data. Current Interpretive Data was last revised on 2017. Monocyte pct 8.0 % [facility] Comment: Interpretive Data Percent cell count reference ranges are not reported, since discordance with absolute values may lead to misinterpretation of CBC data. Current Interpretive Data was last revised on 2017. RBC morphology Consistent with RBC Indicies [facility] Platelet estimate #[id number] Blood 07/25/2024 8:10 AM ABA TUTOR 07/25/2024 8:32 AM ABA TUTOR Sudheer Escobar MD LAB BLOOD ORDERABLES Final Re sult Performing Organization Address [facility] Co de Phone Number [facility]INE [phone] [address] Department [place] [address] * Type and screen (07/25/2024 8:10 AM ABA TUTOR) ABO Rh B Positive Arianna, indirect Negative [facility] Blood 07/25/2024 8:10 AM ABA TUTOR 07/25/2024 8:36 AM ABA TUTOR Narrative [facility] - 07/25/2024 9:19 AM ABA TUTOR Has the patient had Daratumumab or Isatuximab in the past 6 months?->Unknown Marilyn Martinez NP LAB BLOOD BANK TANYA T ORDERABLES Final Result Performing Organization Address [facility] de Phone Number [facility]INE [address] [address] Department [place] [address] * (ABNORMAL) eGFR (07/24/2024 1:46 AM ABA TUTOR) eGFR 4(L) >=60 mL/min/1. 73 m2 Comment: Interpretive Data Reference Interval Normal ?>/= [...] interpretive data was last reviewed 2021. Blood 07/24/2024 1:46 AM ABA TUTOR 07/24/2024 2:13 AM ABA TUTOR Marilyn Martinez NP LAB BLOOD ORDERABL ES Final Result [facility] [id number] Department [place] [address] * (ABNORMAL) CBC without differential (07/24/2024 1:46 AM ABA TUTOR) WBC 18.7(H) 3.8 - 9.9 K/cumm Hgb 9.5(L) 11.9 - 15.5 g/dL [facility] Hct 30.0(L) 35.6 - 45.5 % [facility] Plt 234 150 - 400 K/cumm [facility] MPV 12.1 9.1 - 12.3 fL [facility] RBC 3.24(L) 3.90 - 5.20 M/cumm [facility] MCV 92.6 81.3 - 96.4 fL [facility] MCH 29.3 27.1 - 33.3 pg [facility] MCHC 31.7(L) 32.3 - 35.7 g/dL [facility] RDW CV 23.4(H) 11.1 - 14.9 % [facility] RDW SD 74.1(H) 35.7 - 48.1 fL [facility] NRBC abs 0.54(H) 0.00 - 0.01 K/cumm [facility] Blood 07/24/2024 1:46 AM ABA TUTOR 07/24/2024 2:09 AM ABA TUTOR Marilyn Martinez NP LAB BLOOD ORDERABL ES Final Result Performing Organization Address [facility]/ZIP Co de Phone Number [facility] [place] [phone] [address] [facility] [place] [address] * Phosphorus (07/24/2024 1:46 AM ABA TUTOR) Phosphorus, pl 3.4 2.3 - 4.5 mg/dL Blood 07/24/2024 1:46 AM ABA TUTOR 07/24/2024 2:13 AM ABA TUTOR Marilyn Lyric Martinez NP LAB BLOOD ORDERABL ES Final Result Performing Organization Address [facility] de Phone Number [facility] [place] [phone] [address] [facility] [place] [address] * Magnesium (07/24/2024 1:46 AM ABA TUTOR) Pathologist [facility] Magnesium 2.5 1.4 - 2.5 mg/dL Blood 07/24/2024 1:46 AM ABA TUTOR 07/24/2024 2:13 AM ABA TUTOR Marilyn Lyric Martinez NP LAB BLOOD ORDERABL ES Final Result Performing Organization Address [facility] de Phone Number [facility] [place] [phone] [address] Department [place] [address] * (ABNORMAL) Basic metabolic panel (07/24/2024 1:46 AM ABA TUTOR) Sodium 135 135 - 145 mmol/L Potassium, pl 3.5 3.3 - 4.9 mmol/L [facility] Chloride 91(L) 97 - 110 mmol/L [facility] CO2 21(L) 22 - 32 mmol/L [facility] Anion gap 23(H) 2 - 15 mmol/L [facility] BUN 53(H) 6 - 25 mg/dL [facility] Creatinine 9.10(H) 0.60 - 1.10 mg/dL [facility] Glucose 150 70 - 199 mg/dL [facility] [place] Comment: Interpretive Data Fasting glucose >/= 126 [...] classification and Diagnosis of Diabetes Diabetes Care 202; 46: S19-S40. Current interpretive data was last revised 2022. Calcium 9.4 8.5 - 10.3 mg/dL [facility] Blood 07/24/2024 1:46 AM ABA TUTOR 07/24/2024 2:13 AM ABA TUTOR Marilyn Martinez NP LAB BLOOD ORDERABL ES Final Result [facility] [address] [address] Department [place] [address] * (ABNORMAL) eGFR (07/23/2024 2:02 AM ABA TUTOR) eGFR 5(L) >=60 mL/min/1. 73 m2 Comment: Interpretive Data Reference Interval Normal ?>/= [...] interpretive data was last reviewed 2021. Blood 07/23/2024 2:02 AM ABA TUTOR 07/23/2024 2:16 AM ABA TUTOR Tanika De La Torre PA LAB BLOOD ORDERABLES F inal Result Performing Organization Address City/[facility]/ZIP Co de Phone Number [facility] [place] [phone] [place] [address] * (ABNORMAL) Protime-INR (07/23/2024 2:02 AM ABA TUTOR) PT 19.3(H) 9.7 - 13.0 sec INR 1.77(H) 0.90 - 1.20 [facility] Comment: Interpretive data Oral anticoagulant therapeutic ranges: Venous thromboembolism prophylaxis or treatment: 2.0-3.0 CARDIOLOGY Standard range: 2.0-3.0 High-intensity range: 2.5-3.5 Refer to indication-specific guidelines for appropriate target ranges for prosthetic heart valve replacement. Current interpretive data was last revised on 2019. Blood 07/23/2024 2:02 AM ABA TUTOR 07/23/2024 2:14 AM ABA TUTOR Marilyn Martinez NP LAB BLOOD ORDERABL ES Final Result Performing Organization Address City/[facility]/ZIP Co de Phone Number [facility] [place] [phone] [place] [address] * (ABNORMAL) CBC without differential (07/23/2024 2:02 AM ABA TUTOR) WBC 18.3(H) 3.8 - 9.9 K/cumm Hgb 9.2(L) 11.9 - 15.5 g/dL [facility] Hct 26.7(L) 35.6 - 45.5 % [facility] Plt 236 150 - 400 K/cumm [facility] MPV 12.6(H) 9.1 - 12.3 fL [facility] RBC 3.09(L) 3.90 - 5.20 M/cumm [facility] MCV 86.4 81.3 - 96.4 fL [facility] MCH 29.8 27.1 - 33.3 pg [facility] MCHC 34.5 32.3 - 35.7 g/dL [facility] RDW CV 19.0(H) 11.1 - 14.9 % [facility] RDW SD 54.2(H) 35.7 - 48.1 fL [facility] NRBC abs 0.39(H) 0.00 - 0.01 K/cumm [facility] Blood 07/23/2024 2:02 AM ABA TUTOR 07/23/2024 2:14 AM ABA TUTOR Marilyn Martinez NP LAB BLOOD ORDERABL ES Final Result Performing Organization Address [facility] Co de Phone Number [facility]INE [place] [phone] [facility] [employer] [place], [place] [id number] * Phosphorus (07/23/2024 2:02 AM ABA TUTOR) Phosphorus, pl 3.0 2.3 - 4.5 mg/dL Blood 07/23/2024 2:02 AM ABA TUTOR 07/23/2024 2:16 AM ABA TUTOR Marilyn Martinez NP LAB BLOOD ORDERABL ES Final Result Performing Organization Address [facility] de Phone Number [facility] [address] [facility] [place] [address] * Magnesium (07/23/2024 2:02 AM ABA TUTOR) Magnesium 2.4 1.4 - 2.5 mg/dL Blood 07/23/2024 2:02 AM ABA TUTOR 07/23/2024 2:16 AM ABA TUTOR Marilyn Martinez NP LAB BLOOD ORDERABL ES Final Result Performing Organization Address City/[facility]/ZIP Co de Phone Number [facility] [place] [phone] [address] Department [place] [address] * (ABNORMAL) Basic metabolic panel (07/23/2024 2:02 AM ABA TUTOR) Sodium 135 135 - 145 mmol/L Potassium, pl 3.7 3.3 - 4.9 mmol/L [facility] Chloride 92(L) 97 - 110 mmol/L [facility] CO2 18(L) 22 - 32 mmol/L [facility] Anion gap 25(H) 2 - 15 mmol/L [facility] BUN 50(H) 6 - 25 mg/dL [facility] Creatinine 8.58(H) 0.60 - 1.10 mg/dL [facility] Glucose 115 70 - 199 mg/dL [facility] Comment: Interpretive Data Fasting glucose >/= 126 [...] classification and Diagnosis of Diabetes Diabetes Care 202; 46: S19-S40. Current interpretive data was last revised 2022. Calcium 9.1 8.5 - 10.3 mg/dL [facility] Blood 07/23/2024 2:02 AM ABA TUTOR 07/23/2024 2:16 AM ABA TUTOR Marilyn Martinez NP LAB BLOOD ORDERABL ES Final Result Performing Organization Address [facility]/ZIP Co de Phone Number [facility] [place] [address] [address] Department [place] [address] * Critical Care (07/22/2024 8:22 AM ABA TUTOR) Narrative OfomaBlake MD - 07/22/2024 8:22 AM ABA TUTOR Marilyn Martinez NP ? 07/22/2024 ??4:47 PM Critical Care Performed by: Marilyn Martinez NP Authorized by: Marilyn Martinez NP ?? CRITICAL CARE: ??Team: ??CHNE ??Shift: ??AM ??Level of Billing: ??Subsequent Hospital Visit Level 3 ??My time spent with this patient was 85 minutes: Critical Provider Statement: I have seen and examined the patient on this day of service. I have reviewed and confirmed the history, physical exam, laboratory, and radiographic data as documented in the ICU note. I have reviewed and discussed my treatment plan with the patient's team and other medical/trial consultant staff. This time was in addition to and separate from care provided by other practitioners on this day of service. ? I spent time reviewing and interpreting data from bedside monitors, laboratory results, and imaging, I spent time discussing the management of this critically ill patient with consultants and the medical staff and I spent time documenting in the medical record Marilyn Martinez NP IN CLINIC/BEDSIDE ORDERABLES Final Result * TRANSTHORACIC ECHO (TTE) COMPLETE W DOPPLER/CF W CONTRAST (07/22/2024 7:00 AM ABA TUTOR) Anatomical Region Laterality Modality Ultrasound 07/22/2024 6:44 AM ABA TUTOR Narrative 07/22/2024 8:34 [place] [address] Echocardiogram Report Patient Name: DORY NOBLE L : 1960 Study Date: 07/22/2024 6:44:33 AM Gender: F Tech: Location: [id number] Provider: BLAIR NOE ?Height(Cm): 152 BSA: 2.02 Weight(Kg): 97 Heart Rate: 85 BP: 121 / 72 Quality: Good Order Provider: BLAIR NOE ?? PROCEDURES: Echocardiographic Report: Transthoracic echocardiogram with complete 2D, M-Mode, color Doppler examination and contrast. ?? INDICATIONS: Heart failure. ?? MEASUREMENTS: 2D/MM ?Value ? Range ?Doppler ?Value ? Range EF Teich 2D ?42.4 percent ?[ 54.0 - 74.0 ] ?YOLIS Vmax ? 1.47 cm2 EF Mod BP ?38 % ?[ 54 - 74 ] ?AV Mean PG ? 9 mmHg LVIDd 2D ? 5.28 cm ? [ 3.80 - 5.20 ] ?AV Peak Ryan ?2.11 m/s ?[ 1.00 - 1.70 ] LVIDs 2D ? 4.17 cm ? [ 2.20 - 3.50 ] ?AV VTI ? 31.95 cm LVPWd 2D ? 0.89 cm ? [ 0.60 - 0.90 ] ?LVOT Diam ?2.04 cm IVSd 2D ?1.02 cm ? [ 0.60 - 0.90 ] ?LVOT Peak Ryan ?0.93 m/s ?[ 0.70 - 1.10 ] LA Dimension MM ?5.82 cm ? [ 2.70 - 3.80 ] ?LVOT VTI ? 14.91 cm AoR Diam 2D ?3.00 cm ? [ 2.70 - 3.70 ] ?SI LVOT ?25.3 ml/m2 ?[ >= 35.0 ] AoR Diam MM ?3.01 cm ? [ 2.70 - 3.70 ] ?MV Mean PG ? 4 mmHg LA Volume Index ?52.03 cc/m2 ? [ 16.00 - 34.00 ] ?PV Peak Ryan ?0.92 m/s ?[ 0.40 - 0.80 ] ACS MM ? 1.23 cm ?TR Peak Ryan ?2.33 m/s ?[ 1.00 - 2.80 ] TR Peak PG ? 22 mmHg 2D/MM ?Value ? Range ?Doppler ?Value ? Range - ?? FINDINGS: Atrial Septum: Normal atrial septum. Left Ventricle: Optison contrast agent used to visually enhance endocardial wall motion and contractility. Moderate global left ventricular systolic dysfunction. Ejection fraction is measured at 38 %. Left Atrium: There is moderate enlargement of left atrium. Right Ventricle: Normal right ventricular size. Normal right ventricular systolic function. Right Atrium: There is mild enlargement of right atrium. Aortic Valve: Aortic cusps appear moderately calcified. Mild aortic stenosis. Continued echo surveillance recommended. Peak velocity AOV of 2.1 m/sec. Peak gradient of 17.0 mmHg. Mean gradient of 9.0 mmHg. Valve area of 1.5 cm2. Mitral Valve: Moderate mitral annular calcification. Mild to moderate mitral valve regurgitation. Pulmonic Valve: Mild pulmonic regurgitation. Tricuspid Valve: Estimated peak RVSP is 32 mmHg. Mild tricuspid regurgitation. Pericardium: Normal pericardium with no significant pericardial effusion. Aorta: Normal aortic root. IVC: Normal size and normal respiratory collapse consistent with normal right atrial pressure (<5 mmHg). Pulmonary Artery: Normal pulmonary artery size. ?? CONCLUSIONS: Optison contrast agent used to visually enhance endocardial wall motion and contractility. Moderate global left ventricular systolic dysfunction. Ejection fraction is measured at 38 %. There is global hypokinesis more marked in the anterior segments. There is moderate enlargement of left atrium. There is mild enlargement of right atrium. Moderate mitral annular calcification. Mild to moderate mitral valve regurgitation. Aortic cusps appear moderately calcified. Mild aortic stenosis. Continued echo surveillance recommended. Peak velocity AOV of 2.1 m/sec. Peak gradient of 17.0 mmHg. Mean gradient of 9.0 mmHg. Valve area of 1.5 cm2. Estimated peak RVSP is 32 mmHg. Mild tricuspid regurgitation. Electronically Signed By: Jennifer Carmichael MD 07/22/2024 8:33:01 AM ABA TUTOR Procedure Note Rubin Carmichael MD - 07/22/2024 [place] [address] Echocardiogram Report Patient Name: DORY NOBLE L : 1960 Study Date: 07/22/2024 6:44:33 AM Gender: F Tech: Location: [id number] Ref Provider: BLAIR NOE Height(Cm): 152 BSA: 2.02 Weight(Kg): 97 Heart Rate: 85 BP: 121 / 72 Quality: Good Order Provider: HASMUKH,BLAIR PROCEDURES: Echocardiographic Report: Transthoracic echocardiogram with complete 2D, M-Mode, color Dopplerexamination and contrast. INDICATIONS: Heart failure. MEASUREMENTS: 2D/MM Value Range DopplerValue Range EF Teich 2D 42.4 percent [ 54.0 - 74.0 ] YOLIS Vmax1.47 cm2 EF Mod BP 38 % [ 54 - 74 ] AV Mean PG 9mmHg LVIDd 2D 5.28 cm [ 3.80 - 5.20 ] AV Peak Vel2.11 m/s [ 1.00 - 1.70 ] LVIDs 2D 4.17 cm [ 2.20 - 3.50 ] AV VTI31.95 cm LVPWd 2D 0.89 cm [ 0.60 - 0.90 ] LVOT Diam2.04 cm IVSd 2D 1.02 cm [ 0.60 - 0.90 ] LVOT Peak Vel0.93 m/s [ 0.70 - 1.10 ] LA Dimension MM 5.82 cm [ 2.70 - 3.80 ] LVOT VTI14.91 cm AoR Diam 2D 3.00 cm [ 2.70 - 3.70 ] SI LVOT25.3 ml/m2 [ >= 35.0 ] AoR Diam MM 3.01 cm [ 2.70 - 3.70 ] MV Mean PG 4mmHg LA Volume Index 52.03 cc/m2 [ 16.00 - 34.00 ] PV Peak Vel0.92 m/s [ 0.40 - 0.80 ] ACS MM 1.23 cm TR Peak Vel2.33 m/s [ 1.00 - 2.80 ] TR Peak PG 22 mmHg 2D/MM Value Range DopplerValue Range - FINDINGS: Atrial Septum: Normal atrial septum. Left Ventricle: Optison contrast agent used to visually enhance endocardial wall motionand contractility. Moderate global left ventricular systolic dysfunction.Ejection fraction is measured at 38 %. Left Atrium: There is moderate enlargement of left atrium. Right Ventricle: Normal right ventricular size. Normal right ventricular systolicfunction. Right Atrium: There is mild enlargement of right atrium. Aortic Valve: Aortic cusps appear moderately calcified. Mild aortic stenosis. Continuedecho surveillance recommended. Peak velocity AOV of 2.1 m/sec. Peak gradient of17.0 mmHg. Mean gradient of 9.0 mmHg. Valve area of 1.5 cm2. Mitral Valve: Moderate mitral annular calcification. Mild to moderate mitral valveregurgitation. Pulmonic Valve: Mild pulmonic regurgitation. Tricuspid Valve: Estimated peak RVSP is 32 mmHg. Mild tricuspid regurgitation. Pericardium: Normal pericardium with no significant pericardial effusion. Aorta: Normal aortic root. IVC: Normal size and normal respiratory collapse consistent with normal rightatrial pressure (<5 mmHg). Pulmonary Artery: Normal pulmonary artery size. CONCLUSIONS: Optison contrast agent used to visually enhance endocardial wall motionand contractility. Moderate global left ventricular systolic dysfunction.Ejection fraction is measured at 38 %. There is global hypokinesis more marked in theanterior segments. There is moderate enlargement of left atrium. There is mild enlargement of right atrium. Moderate mitral annular calcification. Mild to moderate mitral valveregurgitation. Aortic cusps appear moderately calcified. Mild aortic stenosis. Continuedecho surveillance recommended. Peak velocity AOV of 2.1 m/sec. Peak gradient of17.0 mmHg. Mean gradient of 9.0 mmHg. Valve area of 1.5 cm2. Estimated peak RVSP is 32 mmHg. Mild tricuspid regurgitation. Electronically Signed By: Jennifer Carmichael MD 07/22/2024 8:33:01 AM ABA TUTOR Blair Noe APRN CV ECHO PROCEDURES Final Result * (ABNORMAL) eGFR (07/22/2024 5:41 AM ABA TUTOR) eGFR 5(L) >=60 mL/min/1. 73 m2 Comment: Interpretive Data Reference Interval Normal ?>/= [...] interpretive data was last reviewed 2021. Blood 07/22/2024 5:41 AM ABA TUTOR 07/22/2024 5:44 AM ABA TUTOR us Tanika KNAPP LAB BLOOD ORDERABLES F inal Result [facility] [id number] [address] Department [place] [address] * (ABNORMAL) CBC without differential (07/22/2024 5:41 AM ABA TUTOR) WBC 19.5(H) 3.8 - 9.9 K/cumm Hgb 8.9(L) 11.9 - 15.5 g/dL CERNER Hct 25.8(L) 35.6 - 45.5 % CERNER Plt 241 150 - 400 K/cumm [facility] MPV 12.2 9.1 - 12.3 fL [facility] RBC 3.03(L) 3.90 - 5.20 M/cumm C[facility] MCV 85.1 81.3 - 96.4 fL [facility] MCH 29.4 27.1 - 33.3 pg CERNER MCHC 34.5 32.3 - 35.7 g/dL [facility] RDW CV 16.3(H) 11.1 - 14.9 % CERNER CH RDW SD 47.0 35.7 - 48.1 fL [facility] NRBC abs 0.24(H) 0.00 - 0.01 K/cumm [facility] Blood 07/22/2024 5:41 AM ABA TUTOR 07/22/2024 5:44 AM ABA TUTOR Blair Noe APRN LAB BLOOD ORDERABL ES Final Result Performing Organization Address [facility] Co de Phone Number [facility] [address] [facility] [place] [address] * Phosphorus (07/22/2024 5:41 AM ABA TUTOR) Pathologist [facility] Phosphorus, pl 2.9 2.3 - 4.5 mg/dL Blood 07/22/2024 5:41 AM ABA TUTOR 07/22/2024 5:44 AM ABA TUTOR Marilyn Martinez NP LAB BLOOD ORDERABL ES Final Result Performing Organization Address [facility] de Phone Number [facility] [address] [facility] [place] [address] * Magnesium (07/22/2024 5:41 AM ABA TUTOR) Pathologist [facility] Magnesium 2.5 1.4 - 2.5 mg/dL Blood 07/22/2024 5:41 AM ABA TUTOR 07/22/2024 5:44 AM ABA TUTOR Marilyn Martinez IT SECURITY SPECIALIST LAB BLOOD ORDERABL ES Final Result Performing Organization Address [facility] de Phone Number [facility] [address] [facility] [place] [address] * (ABNORMAL) Basic metabolic panel (07/22/2024 5:41 AM ABA TUTOR) Sodium 132(L) 135 - 145 mmol/L Potassium, pl 4.0 3.3 - 4.9 mmol/L [facility] Chloride 91(L) 97 - 110 mmol/L [facility] CO2 18(L) 22 - 32 mmol/L C[facility] Anion gap 23(H) 2 - 15 mmol/L [facility] BUN 50(H) 6 - 25 mg/dL [facility] Creatinine 8.41(H) 0.60 - 1.10 mg/dL [facility] Glucose 139 70 - 199 mg/dL [facility] Comment: Interpretive Data Fasting glucose >/= [...] classification and Diagnosis of Diabetes Diabetes Care 2021; 46: S19-S40. Current interpretive data was last revised 2022. Calcium 9.2 8.5 - 10.3 mg/dL [facility] Blood 07/22/2024 5:41 AM ABA TUTOR 07/22/2024 5:44 AM ABA TUTOR Marilyn Martinez NP LAB BLOOD ORDERABL ES Final Result [facility] [address] Department [place] [address] * Cell Differential, Body Fluid (07/22/2024 3:17 AM ABA TUTOR) Total cells diffed 100 % Comment: Interpretive Data Unless otherwise specified, the reference range and other method performance specifications have not been established for CSF/Body Fluid tests. ??The test results should be integrated into the clinical context for interpretation. Current interpretive data was last revised on 2019. Neutrophils, fld 62 % [facility] CH Lymphs, fld 34 % [facility] CH Monocyte, fld 4 % [facility] CH Fluid 07/22/2024 3:17 AM ABA TUTOR 07/22/2024 3:17 AM ABA TUTOR us Waqas Garcia MD LAB BODY FLUIDS AND STOOLS STEPHANIA PELAYO Final Result Performing Organization Address [facility] Co de Phone Number [facility] [place] [address] [place] [address] * Cell count w/rflx diff, body fluid (07/22/2024 3:17 AM ABA TUTOR) Specimen type, fld Dialysate Color, fld Straw [facility] CH Clarity, fld Clear [facility] CH Nucleated cells, fld 79 /cumm [facility] CH Comment: Interpretive Data Unless otherwise specified, the reference range and other method performance specifications have not been established for CSF/Body Fluid tests. ??The test results should be integrated into the clinical context for interpretation. Current interpretive data was last revised on 2019. RBC, fld <2,000 /cumm [facility] CH Fluid 07/22/2024 3:17 AM ABA TUTOR 07/22/2024 3:17 AM ABA TUTOR Waqas Garcia MD LAB BODY FLUIDS AND STOOLS STEPHANIA PELAYO Final Result Performing Organization Address [facility] de Phone Number [facility] [place] [address] [place] [address] * (ABNORMAL) Urinalysis reflex to microscopic and culture Urine (07/22/2024 1:57 AM ABA TUTOR) Color, ur Mitzi Yellow Clarity, ur Turbid(A) Clear [facility] CH Specific gravity, ur 1.020 1.003 - 1.030 [facility] CH pH, urine 8.0 [facility] CH Comment: Interpretive Data ? Urine pH is affected by diet, medications, systemic acid-base disturbances, and renal tubular function. ??pH may affect urinary stone formation. ??For example, urine pH below 6.0 may help reduce the tendency for calcium phosphate stones and pH greater than 6.0 may reduce the tendency for uric acid stone formation. Source: [facility] [employer] Current Interpretive Data was last revised on 2017 Protein, ur ql 3+(A) Negative [facility] CH Glucose, ur ql Negative Negative [facility] CH Ketones, ur Negative Negative [facility] CH Bilirubin, ur Negative Negative [facility] CH Blood, ur 3+(A) Negative [facility] Urobilinogen, ur <2.0 <2.0 mg/dL [facility] Nitrite, ur Negative Negative [facility] Leukocyte esterase, ur 4+(A) Negative [facility] CH UA reflex comment Reflex to microscopic UA will be performed. [facility] Urine 07/22/2024 1:57 AM ABA TUTOR 07/22/2024 2:05 AM ABA TUTOR Blair Noe APRN LAB MICROBIOLOGY - GENERAL ORDERABLES Final Result Performing Organization Address [facility] de Phone Number [facility] [address] [facility] [place] [address] * (ABNORMAL) Urinalysis, microscopic only (07/22/2024 1:57 AM ABA TUTOR) WBC, ur >50(A) 0 - 5 /HPF RBC, ur >50(A) 0 - 2 /HPF [facility] Epithelial cells, squamous, ur 6-10(A) 0 - 5 /HPF [facility] Bacteria, ur Trace(A) [facility] Culture Reflex Comment Reflex to urine culture will be performed. [facility] Urine 07/22/2024 1:57 AM ABA TUTOR 07/22/2024 2:05 AM ABA TUTOR Blair Noe APRN LAB URINE ORDERABL ES Final Result Performing Organization Address [facility] de Phone Number [facility] [address] Department of Laboratories [place], [place] [id number] * Urine culture Urine (07/22/2024 1:57 AM ABA TUTOR) Report Final Report: No growth Comment:Testing performed by : [facility], [address] [facility], [place]., [address] Urine 07/22/2024 1:57 AM ABA TUTOR 07/22/2024 4:30 AM ABA TUTOR Narrative [facility] - 07/23/2024 6:18 AM ABA TUTOR Urine culture reflexed based upon urinalysis results. Testing performed by [facility] Microbiology Laboratory ([phone]) us Blair Noe APRN LAB MICROBIOLOGY - GENERAL ORDERABLES Final Result [facility] [address] Department [place] [address] * ECG 12 lead (07/22/2024 1:33 AM ABA TUTOR) 07/22/2024 1:33 AM ABA TUTOR Narrative [facility] - 07/22/2024 9:16 AM ABA TUTOR Vent Rate: 118 bpm RR Interval: 505 msec ID Interval: 0 msec QRS Duration: 113 msec QT Interval: 354 msec QTC Interval: 424 msec P-R-T Mitchell: 0 - 54 - 211 degrees IMPRESSION: ATRIAL FIBRILLATION WITH RAPID VENTRICULAR RESPONSE MODERATE INTRAVENTRICULAR CONDUCTION DELAY ??[110+ ms QRS DURATION] ST DEVIATION AND MODERATE T-WAVE ABNORMALITY, CONSIDER LATERAL ISCHEMIA ??[-0.1+ mV T-WAVE IN I/aVL/V5/V6] ST DEVIATION AND MODERATE T-WAVE ABNORMALITY, CONSIDER INFERIOR ISCHEMIA ??[- 0.1+ mV T-WAVE IN II/aVF] ABNORMAL ECG Electronically Signed By: Jennifer Carmichael MD us Blair Noe APRN ECG ORDERABLES Fi nal Result Performing Organization Address [facility]/ZIP Co de Phone Number [facility] * (ABNORMAL) CBC without differential (07/22/2024 12:51 AM ABA TUTOR) WBC 20.0(H) 3.8 - 9.9 K/cumm Hgb 8.5(L) 11.9 - 15.5 g/dL [facility] Hct 24.3(L) 35.6 - 45.5 % [facility] Plt 236 150 - 400 K/cumm [facility] MPV 11.9 9.1 - 12.3 fL [facility] RBC 2.81(L) 3.90 - 5.20 M/cumm [facility] MCV 86.5 81.3 - 96.4 fL [facility] MCH 30.2 27.1 - 33.3 pg CERNER CH MCHC 35.0 32.3 - 35.7 g/dL [facility] RDW CV 15.6(H) 11.1 - 14.9 % [facility] RDW SD 46.7 35.7 - 48.1 fL [facility] NRBC abs 0.20(H) 0.00 - 0.01 K/cumm [facility] Blood 07/22/2024 12:5 1 AM ABA TUTOR 07/22/2024 12:55 AM ABA TUTOR us Blair Negro Noe ELECTRONICS COMMODITY MANAGER LAB BLOOD ORDERABL ES Final Result [facility] [address] Department [place] [address] * Blood culture Blood (07/21/2024 11:44 PM ABA TUTOR) Report Final Report: No growth Comment:Testing performed by : [facility], [address] [place]., [address] Blood 07/21/2024 11:4 4 PM ABA TUTOR 07/22/2024 6:05 AM ABA TUTOR Narrative [facility] - 07/26/2024 7:00 AM ABA TUTOR From a different site than #1. Collection->Peripheral 1. ?Blood cultures are incubated for 4 days on a continuously monitored blood culture system. The first report of a negative culture is issued within 24 hours of receipt of the specimen in the laboratory. 2. ?Positive culture results are reported as soon as they are detected. 3. ?The most important factor for detection of microbes in the setting of bloodstream infection is the volume of blood submitted for culture. Failure to collect an optimal blood volume can result in false negative blood cultures. 4. ? For pediatric patients, the recommended blood volume to collect follows a weight based strategy. See the electronic test catalog for collection instructions. 5. ?For positive blood cultures, a rapid molecular test may be performed for organism identification using the sánchez ePlex blood culture identification panel for gram positive (BCID-GP) and gram negative (BCID-GN) organisms. This nucleic acid amplification test detects microbial DNA in positive blood culture broth. This assay has been cleared by the [place] Food and Drug Administration and its performance characteristics have been verified by the [facility] Microbiology Laboratory. For questions about this culture, contact the Microbiology Laboratory at [phone]. Interpretive data was last revised on 24. Blair Noe APRN LAB MICROBIOLOGY - GENERAL ORDERABLES Final Result [facility] [address] Department [place] [address] * Blood culture Blood (07/21/2024 11:44 PM ABA TUTOR) Report Final Report: No growth Comment:Testing performed by : [facility], [address] [place]., [address] Blood 07/21/2024 11:4 4 PM ABA TUTOR 07/22/2024 6:05 AM ABA TUTOR Narrative [facility] - 07/26/2024 7:00 AM ABA TUTOR Collection->Peripheral 1. ?Blood cultures are incubated for 4 days on a continuously monitored blood culture system. The first report of a negative culture is issued within 24 hours of receipt of the specimen in the laboratory. 2. ?Positive culture results are reported as soon as they are detected. 3. ?The most important factor for detection of microbes in the setting of bloodstream infection is the volume of blood submitted for culture. Failure to collect an optimal blood volume can result in false negative blood cultures. 4. ? For pediatric patients, the recommended blood volume to collect follows a weight based strategy. See the electronic test catalog for collection instructions. 5. ?For positive blood cultures, a rapid molecular test may be performed for organism identification using the sánchez ePlex blood culture identification panel for gram positive (BCID-GP) and gram negative (BCID-GN) organisms. This nucleic acid amplification test detects microbial DNA in positive blood culture broth. This assay has been cleared by the [place] Food and Drug Administration and its performance characteristics have been verified by the [facility] Microbiology Laboratory. For questions about this culture, contact the Microbiology Laboratory at [phone]. Interpretive data was last revised on 24. Blair Tom Hasmukh MCKENNA LAB MICROBIOLOGY - GENERAL ORDERABLES Final Result [facility] [place] [address] [place] [address] * CTA Abdomen Pelvis (07/21/2024 10:13 PM ABA TUTOR) Anatomical Region Laterality Modality Body N/A Computed Tomogra phy 07/21/2024 10:0 8 PM ABA TUTOR Impressions 07/22/2024 10:40 AM ABA TUTOR 1. ?? Rectal thickening, question for proctitis. Colonic diverticulosis. No evidence of GI bleed. 2. ?? Apparent urinary bladder wall thickening, exaggerated by nondistention. Suggest correlation with symptoms and urinalysis to rule out cystitis. 3. ?? Small amount of intraperitoneal free fluid. 4. ?? Bilateral nephrolithiasis. 5. ?? Mild stranding/trace fluid adjacent to the gallbladder, nonspecific. Suggest correlation with clinical information and liver function test. 6. ?? Splenic cystic lesions, measuring up to 8.5 cm. Details as described. Suggest direct comparison with prior exam. 7. ?? Cardiomegaly. Small bilateral pleural effusions. Left basilar atelectasis. Superimposed consolidation not excluded. Stat report by [facility] Electronically signed by: Sulaiman Xie M.D. Narrative 07/22/2024 10:40 AM ABA TUTOR STUDY DESCRIPTION: CTA ABDOMEN PELVIS TECHNIQUE: Axial, coronal, sagittal 1-3 mm post-contrast 125 ml ??of Optiray-350 IV, preceded and followed by 50 ml bolus of normal saline. ?? MIP and VR 3-D reconstruction techniques utilized. NASCET standard criteria ??were utilized to assess the degree of stenosis. COMPARISON STUDIES: None HISTORY:c/f bleed. FINDINGS: Tubes, catheters and devices: Peritoneal dialysis catheter terminates in the pelvis. Right femoral venous line terminates in the lower inferior vena cava. Lungs: Left lower lobe atelectasis. Superimposed consolidation not excluded. Mild right basilar atelectasis. Pleural spaces: Small bilateral pleural effusions. Heart: Cardiomegaly. Aorta: Aortic calcifications. No aortic aneurysm. No aortic dissection. Celiac trunk and mesenteric arteries: No occlusion or significant stenosis. Renal arteries: Severe left renal artery stenosis. Probable moderate proximal right renal artery stenosis. Right iliac arteries: No occlusion or significant stenosis. Left iliac arteries: No occlusion or significant stenosis. Liver: 1.2 cm right hepatic low-density lesion, probable cyst. Subcentimeter hepatic low-density lesions, too small to characterize. 1.2 cm left hepatic low-density lesion versus 2 adjacent small subcentimeter lesions, not fully characterized. Gallbladder and biliary ducts: Mild stranding/trace fluid adjacent to the gallbladder. Pancreas: Unremarkable. Spleen: Approximately 8.5 cm splenic low-density cystic lesion; it has lobulated contour, with anterior portion projecting beyond anterior splenic margin versus question of trace confined fluid adjacent to the spleen. Additional adjacent 2.4 cm and 1 cm low-density cystic lesions in the spleen. Adrenal glands: 2.5 cm right adrenal nodule. Kidneys and ureters: Atrophic kidneys. Probable small bilateral renal cysts. Calcific densities in bilateral kidneys, likely nonobstructing stones. 9 mm stone in the right renal pelvis. Right double-J ureteral stent extending from right renal pelvis to the urinary bladder. Stomach and bowel: Apparent gastric thickening could be nondistention. Areas of gastric edema not excluded. Proximal small bowel loops seen in the right abdomen. The colon is seen mostly in the left abdomen. The findings indicate malrotation. Colonic diverticulosis. Rectal thickening question for proctitis. Appendix: No evidence of appendicitis. Intraperitoneal space: Small amount of intraperitoneal free fluid. Lymph nodes: No significantly enlarged lymph nodes. Urinary bladder: Nondistended urinary bladder. Apparent urinary bladder wall thickening. Reproductive: No acute abnormality. Bones/joints: Degenerative changes of spine. Soft tissues: ??Abdominal wall subcutaneous soft tissue edema. Procedure Note Sulaiman Xie MD - 07/22/2024 STUDY DESCRIPTION: CTA ABDOMEN PELVIS TECHNIQUE: Axial, coronal, sagittal 1-3 mm post-contrast 125 ml of Optiray-350 IV, preceded and followed by 50 ml bolus of normal saline. MIP and VR 3-D reconstruction techniques utilized. NASCET standard criteria were utilized to assess the degree of stenosis. COMPARISON STUDIES: None HISTORY:c/f bleed. FINDINGS: Tubes, catheters and devices: Peritoneal dialysis catheter terminates in the pelvis. Right femoral venous line terminates in the lower inferior vena cava. Lungs: Left lower lobe atelectasis. Superimposed consolidation not excluded. Mild right basilar atelectasis. Pleural spaces: Small bilateral pleural effusions. Heart: Cardiomegaly. Aorta: Aortic calcifications. No aortic aneurysm. No aortic dissection. Celiac trunk and mesenteric arteries: No occlusion or significant stenosis. Renal arteries: Severe left renal artery stenosis. Probable moderate proximal right renal artery stenosis. Right iliac arteries: No occlusion or significant stenosis. Left iliac arteries: No occlusion or significant stenosis. Liver: 1.2 cm right hepatic low-density lesion, probable cyst. Subcentimeter hepatic low-density lesions, too small to characterize. 1.2 cm left hepatic low-density lesion versus 2 adjacent small subcentimeter lesions, not fully characterized. Gallbladder and biliary ducts: Mild stranding/trace fluid adjacent to the gallbladder. Pancreas: Unremarkable. Spleen: Approximately 8.5 cm splenic low-density cystic lesion; it has lobulated contour, with anterior portion projecting beyond anterior splenic margin versus question of trace confined fluid adjacent to the spleen. Additional adjacent 2.4 cm and 1 cm low-density cystic lesions in the spleen. Adrenal glands: 2.5 cm right adrenal nodule. Kidneys and ureters: Atrophic kidneys. Probable small bilateral renal cysts. Calcific densities in bilateral kidneys, likely nonobstructing stones. 9 mm stone in the right renal pelvis. Right double-J ureteral stent extending from right renal pelvis to the urinary bladder. Stomach and bowel: Apparent gastric thickening could be nondistention. Areas of gastric edema not excluded. Proximal small bowel loops seen in the right abdomen. The colon is seen mostly in the left abdomen. The findings indicate malrotation. Colonic diverticulosis. Rectal thickening question for proctitis. Appendix: No evidence of appendicitis. Intraperitoneal space: Small amount of intraperitoneal free fluid. Lymph nodes: No significantly enlarged lymph nodes. Urinary bladder: Nondistended urinary bladder. Apparent urinary bladder wall thickening. Reproductive: No acute abnormality. Bones/joints: Degenerative changes of spine. Soft tissues: Abdominal wall subcutaneous soft tissue edema. IMPRESSION: 1. Rectal thickening, question for proctitis. Colonic diverticulosis. No evidence of GI bleed. 2. Apparent urinary bladder wall thickening, exaggerated by nondistention. Suggest correlation with symptoms and urinalysis to rule out cystitis. 3. Small amount of intraperitoneal free fluid. 4. Bilateral nephrolithiasis. 5. Mild stranding/trace fluid adjacent to the gallbladder, nonspecific. Suggest correlation with clinical information and liver function test. 6. Splenic cystic lesions, measuring up to 8.5 cm. Details as described. Suggest direct comparison with prior exam. 7. Cardiomegaly. Small bilateral pleural effusions. Left basilar atelectasis. Superimposed consolidation not excluded. Stat report by [facility] Electronically signed by: Sulaiman Xie M.D. us Blair Noe APRN IMG CT PROCEDURES Final Result * Check Sample (07/21/2024 8:16 PM ABA TUTOR) ABO Rh B Positive [facility] OTHER 07/21/2024 8:16 PM ABA TUTOR 07/21/2024 8:22 PM ABA TUTOR Blake Nava MD LAB BLOOD ORDERABLES Fi nal Result [facility] [address] [facility] Department [place] [address] CH * Critical Care (07/21/2024 7:48 PM ABA TUTOR) Narrative Evert Pizarro MD - 07/21/2024 7:48 PM ABA TUTOR Blair Noe APRN ? 07/22/2024 ??5:11 AM Critical Care Performed by: Blair Noe APRN Authorized by: Blair Noe APRN ?? CRITICAL CARE: ??Team: ??[facility] ??Shift: ??PM ??Level of Billing: ??Critical Care ??My time spent with this patient was 120 minutes: Critical Provider Statement: I have seen and examined the patient on this day of service. I have reviewed and confirmed the history, physical exam, laboratory and radiologic data as documented in the signed ICU note. I have reviewed and discussed my treatment plan with the ICU team and other medical/trial consultant staff, making frequent assessments and decisions regarding this patient's complex medical care. Critical Care time was exclusive of time spent performing separately billed procedures, treating other patients, and teaching. This time was in addition to and separate from critical care provided by other practitioners in my group on this day of service. Critical Care was necessary to treat or prevent imminent or life-threatening deterioration of the following conditions: ? I spent time reviewing and interpreting data from bedside monitors, laboratory results, and imaging, I spent time discussing the management of this critically ill patient with consultants and the medical staff and I spent time documenting in the medical record Blair Noe APRN IN CLINIC/BEDSIDE ORDERABLES Final Result * Lactate (07/21/2024 6:55 PM ABA TUTOR) Pathologist [facility] Lactate 0.9 0.7 - 2.0 mmol/L Blood 07/21/2024 6:55 PM ABA TUTOR 07/21/2024 7:13 PM ABA TUTOR Result [facility] Tanika Mccain Wil PA LAB BLOOD ORDERABLES F inal Result Performing Organization Address [facility] Co de Phone Number [facility] [address] [employer] [place], [place] [id number] * Calcium, ionized, whole blood (07/21/2024 6:55 PM ABA TUTOR) [facility] Ca, ionized, bld 4.60 4.50 - 5.10 mg/dL Blood 07/21/2024 6:55 PM ABA TUTOR 07/21/2024 7:13 PM ABA TUTOR [facility] LAB BLOOD ORDERABLES F inal Result Performing Organization Address [facility] [place] [address] [address] Department of [employer] [place], [place] [id number] * (ABNORMAL) eGFR (07/21/2024 6:55 PM ABA TUTOR) Pathologist [facility] eGFR 5(L) >=60 mL/min/1. 73 m2 Comment: Interpretive Data Reference Interval Normal ?>/= [...] interpretive data was last reviewed 2021. Blood 07/21/2024 6:55 PM ABA TUTOR 07/21/2024 7:13 PM ABA TUTOR Tanikalisa Mccain Wil PA LAB BLOOD ORDERABLES F inal Result Performing Organization Address [facility] de Phone Number [facility] [place] [address] [place], [place] [id number] * (ABNORMAL) Thyroid Function [place] (07/21/2024 6:55 PM ABA TUTOR) TSH 10.30(H) 0.30 - 4.20 mcIUnit/mL Blood 07/21/2024 6:55 PM ABA TUTOR 07/21/2024 7:13 PM ABA TUTOR Tanikalisa Mccain Wil PA LAB BLOOD ORDERABLES F inal Result Performing Organization Address [facility] [place] [address] [address] [place] [address] * Beta-hydroxybutyrate (07/21/2024 6:55 PM ABA TUTOR) Beta-Hydroxybut yrate 0.2 <=0.5 mmol/L Blood 07/21/2024 6:55 PM ABA TUTOR 07/21/2024 11:48 PM ABA TUTOR Blair [place] [employer] LAB BLOOD ORDERABL ES Final Result Performing Organization Address [facility] de Phone Number LAINE T[place] [address] [facility] [place] [address] * Infection Prevention MRSA Only (Staphylococcus aureus) PCR Nasal (07/21/2024 6:55 PM ABA TUTOR) Pathologist [facility] PCR Scrn, Methicillin resistant Staphylococcus aureus (MRSA) Not Detected Not Detected [facility] Comment: Interpretive Data Testing performed using Nucleic Acid Amplification with the [facility] Xpert MRSA NxG Assay. This assay detects target DNA from mecA, mecC and the SCCmec insertion site of Staphylococcus aureus using Real-Time PCR and has been cleared by the FDA. Performance characteristics have been verified by the [facility]. Current Interpretive Data was last revised on 2022 Nasal 07/21/2024 6:55 PM ABA TUTOR 07/21/2024 7:12 PM ABA TUTOR Tanika De La Torre PA LAB MICROBIOLOGY - GEN ERAL ORDERABLES Final Result Performing Organization Address [facility] de Phone Number LAINE [place] [address] [place] [address] * aPTT (07/21/2024 6:55 PM ABA TUTOR) aPTT 38 28 - 38 sec Comment: Interpretive Data Heparin therapeutic range: 66.0 - 100.0 seconds. Range based on correlation with therapeutic heparin activity range of 0.3 - 0.7 Units/mL. Current interpretive data was last revised on 2023. Blood 07/21/2024 6:55 PM ABA TUTOR 07/21/2024 7:13 PM ABA TUTOR [facility] Adán Wil PA LAB BLOOD ORDERABLES F inal Result Performing Organization Address [facility] Co de Phone Number LAINE T[place] [address] [facility] [employer] [place], [place] [id number] * (ABNORMAL) Protime-INR (07/21/2024 6:55 PM ABA TUTOR) PT 23.3(H) 9.7 - 13.0 sec INR 2.12(H) 0.90 - 1.20 [facility] Comment: Interpretive data Oral anticoagulant therapeutic ranges: Venous thromboembolism prophylaxis or treatment: 2.0-3.0 CARDIOLOGY Standard range: 2.0-3.0 High-intensity range: 2.5-3.5 Refer to indication-specific guidelines for appropriate target ranges for prosthetic heart valve replacement. Current interpretive data was last revised on 2019. Blood 07/21/2024 6:55 PM ABA TUTOR 07/21/2024 7:13 PM ABA TUTOR [facility] Adán [employer] LAB BLOOD ORDERABLES F inal Result Performing Organization Address [facility] Co de Phone Number LAINE T[place] [address] [address] [facility] [place] [address] * (ABNORMAL) CBC without differential (07/21/2024 6:55 PM ABA TUTOR) WBC 20.4(H) 3.8 - 9.9 K/cumm Hgb 8.4(L) 11.9 - 15.5 g/dL [facility] Hct 24.2(L) 35.6 - 45.5 % [facility] Plt 230 150 - 400 K/cumm [facility] MPV 12.2 9.1 - 12.3 fL [facility] RBC 2.79(L) 3.90 - 5.20 M/cumm [facility] MCV 86.7 81.3 - 96.4 fL [facility] MCH 30.1 27.1 - 33.3 pg [facility] MCHC 34.7 32.3 - 35.7 g/dL [facility] RDW CV 14.7 11.1 - 14.9 % [facility] RDW SD 44.9 35.7 - 48.1 fL [facility] NRBC abs 0.17(H) 0.00 - 0.01 K/cumm [facility] Blood 07/21/2024 6:55 PM ABA TUTOR 07/21/2024 7:13 PM ABA TUTOR Tanika KNAPP LAB BLOOD ORDERABLES F inal Result Performing Organization Address [facility] Co de Phone Number LAINE [address] [address] [facility] [place] [address] * Type and screen (07/21/2024 6:55 PM ABA TUTOR) Pathologist [facility] ABO Rh B Positive Arianna, indirect Negative [facility] Blood 07/21/2024 6:55 PM ABA TUTOR 07/21/2024 7:22 PM ABA TUTOR Narrative [facility] - 07/21/2024 8:22 PM ABA TUTOR Has the patient had Daratumumab or Isatuximab in the past 6 months?->Unknown Marilyn Martinez LAB BLOOD BANK TANYA T ORDERABLES Final Result Performing Organization Address [facility] de Phone Number LAINE [address] [place] [address] * T4, free (07/21/2024 6:55 PM ABA TUTOR) Pathologist [facility] Free T4 1.04 0.90 - 1.70 ng/dL Blood 07/21/2024 6:55 PM ABA TUTOR 07/21/2024 7:13 PM ABA TUTOR Tanika KNAPP LAB BLOOD ORDERABLES F inal Result Performing Organization Address [facility] de Phone Number LAINE [address] [address] [facility] [place] [address] * Phosphorus (07/21/2024 6:55 PM ABA TUTOR) Pathologist [facility] Phosphorus, pl 2.5 2.3 - 4.5 mg/dL Blood 07/21/2024 6:55 PM ABA TUTOR 07/21/2024 7:13 PM ABA TUTOR Tanika [employer] [facility] LAB BLOOD ORDERABLES F inal Result Performing Organization Address [facility] Co de Phone Number SUM[place]ST[place]E T[place]END [phone] [facility] [place] [address] * Magnesium (07/21/2024 6:55 PM ABA TUTOR) Magnesium 2.2 1.4 - 2.5 mg/dL Blood 07/21/2024 6:55 PM ABA TUTOR 07/21/2024 7:13 PM ABA TUTOR [facility] Adán Tunezy [place] LAB BLOOD ORDERABLES F inal Result Performing Organization Address [facility] de Phone Number [place]E [place] [address] [facility] [place] [address] * (ABNORMAL) Hepatic function panel (07/21/2024 6:55 PM ABA TUTOR) Bilirubin, total 0.6 0.1 - 1.2 mg/dL Bilirubin, direct 0.3 0.1 - 0.3 mg/dL [facility] Protein, pl 5.8(L) 6.5 - 8.5 g/dL [facility] Albumin 3.5 3.5 - 5.0 g/dL [facility] Alk phos 115 40 - 130 Units/L [facility] ALT 26 7 - 45 Units/L [facility] AST 19 10 - 45 Units/L [facility] Blood 07/21/2024 6:55 PM ABA TUTOR 07/21/2024 7:13 PM ABA TUTOR Tanika [employer] [facility] LAB BLOOD ORDERABLES F inal Result Performing Organization Address [facility] Co de Phone Number [place]E T[place] [address] [facility] [place] [address] * (ABNORMAL) Basic metabolic panel (07/21/2024 6:55 PM ABA TUTOR) Sodium 135 135 - 145 mmol/L Potassium, pl 4.1 3.3 - 4.9 mmol/L [facility] Chloride 94(L) 97 - 110 mmol/L [facility] CO2 19(L) 22 - 32 mmol/L [facility] Anion gap 22(H) 2 - 15 mmol/L [facility] BUN 50(H) 6 - 25 mg/dL [facility] Creatinine 8.60(H) 0.60 - 1.10 mg/dL [facility] Glucose 105 70 - 199 mg/dL [facility] Comment: Interpretive Data Fasting glucose >/= 126 [...] classification and Diagnosis of Diabetes Diabetes Care 2021; 46: S19-S40. Current interpretive data was last revised 2022. Calcium 9.1 8.5 - 10.3 mg/dL [facility] Blood 07/21/2024 6:55 PM ABA TUTOR 07/21/2024 7:13 PM ABA TUTOR us Tanika KNAPP LAB BLOOD ORDERABLES F inal Result LAINE [address] [facility] [place] [address] * X-ray chest 1 view (Portable) (07/21/2024 6:42 PM ABA TUTOR) Anatomical Region Laterality Modality Body, Chest N/A Computed Radiogr aphy 07/21/2024 7:05 PM ABA TUTOR Impressions 07/21/2024 7:05 PM ABA TUTOR NO ACUTE PULMONARY CHANGE. Electronically signed by: Sulaiman Xie M.D. Narrative 07/21/2024 7:05 PM ABA TUTOR EXAMINATION: XR CHEST 1 VIEW HISTORY: Atrial fibrillation ORDER DATE: 07/21/2024 6:35 PM FINDINGS: The lungs are clear of infiltrate. ??The cardiac and mediastinal outlines are unremarkable. There are no significant pleural effusions . No significant abnormalities are noted in the spine or remainder of the bony thorax. Procedure Note Sulaiman Xie MD - 07/21/2024 EXAMINATION: XR CHEST 1 VIEW HISTORY: Atrial fibrillation ORDER DATE: 07/21/2024 6:35 PM FINDINGS: The lungs are clear of infiltrate. The cardiac and mediastinal outlines are unremarkable. There are no significant pleural effusions . No significant abnormalities are noted in the spine or remainder of the bony thorax. IMPRESSION: NO ACUTE PULMONARY CHANGE. Electronically signed by: Sulaiman Xie M.D. Tanika KNAPP IMG XR PROCEDURES Samina l Result * POCT glucose (07/21/2024 6:33 PM ABA TUTOR) [facility] Glucose, POC 97 70 - 199 mg/dL Blood 07/21/2024 6:33 PM ABA TUTOR 07/21/2024 6:33 PM ABA TUTOR Blake Nava MD LAB POCT ORDERABLES - D EVICE Final Result [facility] [place] [address] [facility] Department [place] [address] * Cardiology Document Scan (07/15/2024 10:51 AM ABA TUTOR) Anatomical Region Laterality Modality Other Jia Beard NP CV CARDIAC SERVICES PROCEDUR ES Final Result * (ABNORMAL) Protime-INR (06/04/2024 12:25 PM ABA TUTOR) Pathologist [facility] INR 3.1(H) [facility] Comment: Reference Range ? 0.9-1.1 Moderate-intensity Warfarin Therapy 2.0-3.0 Higher-intensity Warfarin Therapy ?? 3.0-4.0 PT 30.8(H) 9.0 - 11.5 sec [employer] Comment: For additional information, please refer to http://education.[employer]/faq/FPN562 (This link is being provided for informational/ educational purposes only.) Blood 06/04/2024 12:2 5 PM ABA TUTOR 06/04/2024 12:26 PM ABA TUTOR us Jama Hoskins MD LAB BLOOD ORDERABLES Fin al Result [facility] [address] [place] [address] from Last 3 Months
--- OUTSIDE RECORDS SUMMARY | 2024-08-19 12:36 | XMS_ITS | Clinical Summary ---
Author Organization [facility] [address] Address [address] [place] [address] Care Team Providers Care Art Educator Name Role Phone Mookie Dubois MD Unavailable [phone] Abigail Dougherty RN Unavailable [phone] Jama Hoskins MD Unavailable [phone] Porsche Becker NP Primary Care Provider [phone] Allergies Active Allergy Reactions Criticality Noted Date [...] mouth 2 (two) times a day rx #[id number] Active eplerenone (INSPRA) 50 mg tablet Take [...] Physical deconditioning 07/25/2024 Atrial fibrillation (CMS/HCC) 08/10/2021 Encounters Date Type Department Care Team Description 08/19/2024 11:30 AM [employer] ASSEMBLER Office Visit [facility] Card[facility] [address] [address] [address] [place] [address] Lydia Lewis NP Hypotension due to hypovolemia (Primary Dx) 08/14/2024 Telephone [facility] Cardiology [address] [place] [address] [address] [place] [phone] Jama Hoskins MD Hypotension 08/12/2024 12:45 PM [employer] AND [employer] ASSEMBLER Home Care Visit [address] [place] [address] Dominga Head, [employer] ASSEMBLER PT HOME VISIT 08/12/2024 10:00 AM [employer] ASSEMBLER Home Care Visit [address] [address] [address] [place] [address] Zofia Cosby, OT OT INITIAL EVALUATION 08/12/2024 Home Care Visit [address] [place] [address] Lillina Campuzano, PT CARE CONFERENCE 08/09/2024 Home Care Visit [address] [place] [address] Magui Friedamn, RUPESH HH NURSE MED RECON FOR THERAPY 08/07/2024 8:30 AM [employer] B[employer] ASSEMBLER Home Care Visit [address] [place] [address] Lillian Campuzano, PT PT OASIS START OF CARE 08/07/2024 Plan of Care Documentation [address] [address] [address] [place] [address] 08/06/2024 Telephone [facility] [address] [place] [address] Carson Huffman MA 08/05/2024 Telephone [facility] [address] [place] [address] Carson Huffman MA 08/04/2024 Telephone [facility] Cardiology [address] [facility] [address], [place] [phone] Tanisha Winter NP 08/03/2024 Travel 08/01/2024 Orders Only [facility] Card[facility] [address] [facility] [address] [place] [address] Jia Beard NP 07/25/2024 6:50 PM [employer]ASE ASSEMBLER - 08/04/2024 3:37 PM [employer] AND BASE ASSEMBLER Hospital Encounter [facility] Physical Medicine and Rehabilitation [address] [place], [place] [id number] Nga Marquez MD Physical deconditioning [R53.81] (Primary Dx) Discharge Disposition: Discharge to home, home health skilled care 07/25/2024 Telephone [facility] Cardiology [address] [facility] [address], [place] [address] Tanisha Winter NP 07/22/[address] [facility] Transplant Kidney [address] [facility] [address] [place] [address] Kiera Lake RN 07/22/[address] [facility] Transplant Kidney [address] [facility] [address] [place] [address] Annalise Mays 07/22/[address] [facility] Transplant Kidney [address] [facility] [address] -[address] [place] [address] Kiera Lake RN 07/21/2024 6:22 PM [employer] ASSEMBLER - 07/25/2024 6:46 PM [employer] AND BASE ASSEMBLER Hospital Encounter [facility] [address] [place], [place] [id number] Blake Nava MD Quaizar, Huzaifa, MD Paruchuri, Tharun, MD Shanker, Swaroop, MD Paroxysmal atrial fibrillation (CMS/HCC) (HCC) (Primary Dx) Discharge Disposition: Discharge to an Rehab facility 07/21/[address] [facility] Transplant Kidney [address] [facility] [address] Mailstop [phone] [place], [place] [id number] Loli Moran 06/05/2024 Anticoagulation Visit [facility] Cardiology [address] [place] [address] Bull Jaramillo RN Permanent atrial fibrillation (CMS/HCC) (HCC) (Primary Dx) 06/03/2024 Telephone [facility] Cardiology [address] [place] [address] Jama Hoskins MD INR order 05/30/2024 2:15 PM [employer] B[employer] ASSEMBLER Office Visit [facility] Cardiology [address] [place] [address] Jama Hoskins MD Permanent atrial fibrillation (CMS/HCC) (HCC) (Primary Dx); Chronic anticoagulation from Last 3 Months Immunizations Name Administration Dates Next Due Hep B Vaccine 03/04/2022,,11/25/2021,10/14/2021,2021 Influenza, Unspecified 05/03/2023 Pneumococcal, Unspecified 08/08/2021 Tdap 12/19/2023,09/27/2023,2022 Surgical History Surgery Date Site/Laterality Comments SECTION 1 TONSILLECTOMY as a child PORTACATH PLACEMENT right upper chest Medical History Medical History Date Comments SOB (shortness of breath) Acute kidney failure, unspecified (HCC) A-fib (CMS/HCC) (HCC) CHF (congestive heart failure) (CMS/HCC) ([facility]) Pneumonia Pleural effusion Hypertension Eczema feet, arms which is resolved Wears glasses Dental root implant present Walker as ambulation aid Permanent central venous catheter in place right upper chest Dialysis patient (HCC) Family History Medical History Relation Name Comments [...] materials from doctor or pharmacy Sometimes 08/07/2024 [facility] Utilities Answer Date Recorded In the past 12 months has th e electric, gas, oil, or water company threatened to shut off services in your [...] 07/26/2024 How often do you attend chur ch or roman catholic services? Patient declined 07/26/2024 Do you belong to any clubs o r organizations such as restorationist groups, unions, fraternal or athletic groups, or [...] Recorded Patient Health Questionnaire-2 Score 1 08/04/2024 [facility] [place] [facility] Occupat ional Health - Occupational Stress [...] any time in the past 12 m [facility], were you homeless or living in a long term (including now)? No 07/26/2024 Personal Safety Answer Date Recorded Have you ever been in or are you currently in a harmful physical or emotional relationship or is someone making you feel afraid or unsafe? Denies 07/25/2024 Comments Unknown Sex and Gender Information Value Date Recorded Sex Assigned at Not on file 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 [employer] AND B[employer] ASSEMBLER Gender Identity Not on file Sexual Orientation Not on file Obstetrics History Last Filed Vital Signs Vital Sign Reading Time Taken Comments Blood Pressure 70/40 08/19/2024 11:34 AM [employer] AND B[employer] ASSEMBLER Pulse 105 08/19/2024 11:34 AM [employer] AND B[employer] ASSEMBLER Temperature 36.8 ??C (98.3 ??F) 08/12/2024 1:13 PM CS T Respiratory Rate 18 08/12/2024 1:13 PM [employer] B[employer] ASSEMBLER Oxygen Saturation 96% 08/19/2024 11:34 AM [employer] AND B[employer] ASSEMBLER Inhaled Oxygen Concentration - - Weight 89.8 kg (198 lb) 08/19/2024 11:34 AM [employer] AND BASE ASSEMBLER Height 152.4 cm (5') 08/19/2024 11:34 AM [employer] B[employer] ASSEMBLER Body Mass Index 38.67 08/19/2024 11:34 AM [employer] B[employer] ASSEMBLER Plan of Treatment Health Maintenance Due Date Last Done Comments Breast Cancer Screening-Mammogram 1961 Cervical Cancer Screening 1961 Colon Cancer Screening-Colonoscopy 1961 Hepatitis C Screening 1961 Regular Well Visit/Exam 18-64 12/26/1979 Zoster Vaccine (1 of 2) 12/26/2011 Covid-19 Vaccine (5 - 2023- season) 2024 07/02/2023, 06/28/2021, 10/15/2020, Additional history exists Influenza Vaccine (#1) 2024 05/03/2023 Depression Screening 07/25/2025 07/25/2024, 07/25/19 25 DTaP/Tdap/Td Vaccine (5 - Td or Tdap) 12/18/2033 12/19/2023, 09/27/2023, 2022, Additional history exists Pneumococcal vaccine <65 Aged Out 08/08/2021 No longer eligible based on patient's age to complete this topic Medical Devices Implanted Type Area Manager Stylist Device Identifier Shelf Expiration Date Model / Serial / Lot Dental Implant Other - see comments Description:Upper [employer] Flushing 15fr 62cm 2 Cuff Radiopaque Peritoneal Curl Catheter [id number] - [id number] Implanted:Qty: 1 on 04/03/2022 by Sulaiman Hi MD at [facility] Left: Abdomen [employer] 10/16/2026 [id number] / / [id number] Procedures Procedure Name Priority Date/Time Associated Diagnosis Comments DIFFERENTIAL AUTO Routine 08/02/2024 5:4 5 AM [employer] B[employer] ASSEMBLER CBC WITH AUTO DIFFERENTIAL Routine 08/02/2024 5:45 AM [employer] B[employer] ASSEMBLER EGFR Routine 08/01/2024 6:03 AM [employer] B[employer] ASSEMBLER BASIC METABOLIC PANEL Routine 08/01/2024 6:03 AM [employer] B[employer] ASSEMBLER EGFR Routine 07/31/2024 8:40 AM [employer] B[employer] ASSEMBLER BASIC METABOLIC PANEL Routine 07/31/2024 8:40 AM [employer] B[employer] ASSEMBLER EGFR Routine 07/28/2024 4:32 AM [employer] B[employer] ASSEMBLER DIFFERENTIAL AUTO Routine 07/28/2024 4:3 2 AM [employer] B[employer] ASSEMBLER PHOSPHORUS Routine 07/28/2024 4:32 AM [employer] B[employer] ASSEMBLER CBC WITH AUTO DIFFERENTIAL Routine 07/28/2024 4:32 AM [employer] BASE ASSEMBLER COMPREHENSIVE METABOLIC PANEL Routine 07/28/2024 4:32 AM [employer] AND B[employer] ASSEMBLER XR KUB IP Routine 07/27/2024 10:38 AM [employer] B[employer] ASSEMBLER EGFR Routine 07/26/2024 11:38 AM [employer] B[employer] ASSEMBLER DIFFERENTIAL AUTO Routine 07/26/2024 11: 38 AM [employer] B[employer] ASSEMBLER CBC WITH AUTO DIFFERENTIAL Routine 07/26/2024 11:38 AM [employer] AND BASE ASSEMBLER COMPREHENSIVE METABOLIC PANEL Routine 07/26/2024 11:38 AM [employer] AND BASE ASSEMBLER CONTINUOUS AMBULATORY PERITONEAL DIALYSIS (CAPD) Routine 07/25/2024 3:08 PM [employer] AND BASE ASSEMBLER MANUAL DIFFERENTIAL Timed 07/25/2024 8 :10 AM [employer] AND B[employer] ASSEMBLER CBC WITH AUTO DIFFERENTIAL Timed 07/25/2024 8:10 AM [employer] AND B[employer] ASSEMBLER TYPE AND SCREEN Timed 07/25/2024 8:10 AM [employer] ASSEMBLER EGFR Routine 07/24/2024 1:46 AM [employer] B[employer] ASSEMBLER CBC WITHOUT DIFFERENTIAL Routine 07/24/2024 1:46 AM [employer] AND B[employer] ASSEMBLER PHOSPHORUS Routine 07/24/2024 1:46 AM [employer] B[employer] ASSEMBLER MAGNESIUM Routine 07/24/2024 1:46 AM [employer] AND B[employer] ASSEMBLER BASIC METABOLIC PANEL Routine 07/24/2024 1:46 AM [employer] B[employer] ASSEMBLER EGFR Routine 07/23/2024 2:02 AM [employer] AND B[employer] ASSEMBLER PROTIME-INR Routine 07/23/2024 2:02 AM [employer] B[employer] ASSEMBLER CBC WITHOUT DIFFERENTIAL Routine 07/23/2024 2:02 AM [employer] B[employer] ASSEMBLER PHOSPHORUS Routine 07/23/2024 2:02 AM [employer] AND BASE ASSEMBLER MAGNESIUM Routine 07/23/2024 2:02 AM [employer] B[employer] ASSEMBLER BASIC METABOLIC PANEL Routine 07/23/2024 2:02 AM W[employer] AND BASE ASSEMBLER CRITICAL CARE Routine 07/22/2024 8:22 AM [employer] B[employer] ASSEMBLER Paroxysmal atrial fibrillation (CMS/HCC) (HCC) TRANSTHORACIC ECHO (TTE) COMPLETE W DOPPLER/CF W CONTRAST STAT 07/22/2024 7:00 AM [employer] B[employer] ASSEMBLER EGFR Routine 07/22/2024 5:41 AM [employer] AND BASE ASSEMBLER CBC WITHOUT DIFFERENTIAL Timed 07/22/2024 5:41 AM [employer] B[employer] ASSEMBLER PHOSPHORUS Routine 07/22/2024 5:41 AM [employer] AND BASE ASSEMBLER MAGNESIUM Routine 07/22/2024 5:41 AM [employer] AND BASE ASSEMBLER BASIC METABOLIC PANEL Routine 07/22/2024 5:41 AM [employer] AND BASE ASSEMBLER CELL DIFFERENTIAL, BODY FLUID Routine 07/22/2024 3:17 AM [employer] AND BASE ASSEMBLER CELL COUNT W/REFLEX DIFFERENTIAL, BODY FLUID Routine 07/22/2024 3:17 AM W[employer] AND BASE ASSEMBLER URINALYSIS, MICROSCOPIC ONLY STAT 07/22/2024 1:57 AM [employer] AND BASE ASSEMBLER URINE CULTURE STAT 07/22/2024 1:57 AM [employer] AND BASE ASSEMBLER URINALYSIS AND REFLEX TO MICROSCOPIC AND CULTURE STAT 07/22/2024 1:57 AM [employer] AND B[employer] ASSEMBLER ECG 12-LEAD STAT 07/22/2024 1:33 AM [employer] B[employer] ASSEMBLER CBC WITHOUT DIFFERENTIAL Timed 07/22/2024 12:51 AM [employer] B[employer] ASSEMBLER CONTINUOUS AMBULATORY PERITONEAL DIALYSIS (CAPD) Routine 07/22/2024 12:31 AM [employer] B[employer] ASSEMBLER CONTINUOUS AMBULATORY PERITONEAL DIALYSIS (CAPD) Routine 07/21/2024 11:45 PM W[employer] AND BASE ASSEMBLER BLOOD CULTURE STAT 07/21/2024 11:44 PM [employer] AND BASE ASSEMBLER BLOOD CULTURE STAT 07/21/2024 11:44 PM [employer] BASE ASSEMBLER CONTINUOUS AMBULATORY PERITONEAL DIALYSIS (CAPD) Routine 07/21/2024 11:43 PM W[employer] AND BASE ASSEMBLER CTA ABDOMEN PELVIS W WO CONTRAST ED Urgent/IP Urgent 07/21/2024 10:13 PM [employer] AND B[employer] ASSEMBLER B CHECK SAMPLE STAT 07/21/2024 8:16 PM W[employer] AND BASE ASSEMBLER CRITICAL CARE Routine 07/21/2024 7:48 PM [employer] AND BASE ASSEMBLER BETA-HYDROXYBUTYRATE Add-On 07/21/2024 6:55 PM [employer] B[employer] ASSEMBLER T4, FREE STAT 07/21/2024 6:55 PM [employer] B[employer] ASSEMBLER EGFR STAT 07/21/2024 6:55 PM [employer] BASE ASSEMBLER THYROID FUNCTION CASCADE STAT 07/21/2024 6:55 PM [employer] AND B[employer] ASSEMBLER PROTIME-INR STAT 07/21/2024 6:55 PM [employer] B[employer] ASSEMBLER APTT STAT 07/21/2024 6:55 PM W[employer] AND BASE ASSEMBLER TYPE AND SCREEN Timed 07/21/2024 6:55 PM [employer] AND B[employer] ASSEMBLER CBC WITHOUT DIFFERENTIAL STAT 07/21/2024 6:55 PM [employer] AND B[employer] ASSEMBLER LACTATE STAT 07/21/2024 6:55 PM [employer] AND BASE ASSEMBLER CALCIUM,IONIZED, WHOLE BLOOD STAT 07/21/2024 6:55 PM [employer] AND BASE ASSEMBLER PHOSPHORUS STAT 07/21/2024 6:55 PM [employer] B[employer] ASSEMBLER HEPATIC FUNCTION PANEL STAT 07/21/2024 6:55 PM [employer] B[employer] ASSEMBLER BASIC METABOLIC PANEL STAT 07/21/2024 6:55 PM [employer] B[employer] ASSEMBLER MAGNESIUM STAT 07/21/2024 6:55 PM [employer] AND BASE ASSEMBLER INFECTION PREVENTION MRSA ONLY (STAPHYLOCOCCUS AUREUS) PCR Routine 07/21/2024 6:55 PM [employer] AND B[employer] ASSEMBLER XR CHEST 1 VIEW ED Urgent/IP Urgent 07/21/2024 6:42 PM [employer] B[employer] ASSEMBLER POCT GLUCOSE DEVICE Routine 07/21/2024 6 :33 PM [employer] ASSEMBLER CARDIOLOGY DOCUMENT SCAN Routine 07/15/2024 10:51 AM [employer] B[employer] ASSEMBLER PROTIME-INR Routine 06/04/2024 12:25 PM [employer] ASSEMBLER Permanent atrial fibrillation (CMS/HCC) (HCC) from Last 3 Months Results * (ABNORMAL) Differential, auto (08/02/2024 5:45 AM W[employer] B[employer] ASSEMBLER) Neutrophil abs 8.3(H) 1.5 - 6.5 K/cumm Imm gran abs 0.7(H) 0.0 - 0.1 K/cumm [facility] Lymphocyte abs 1.1 0.8 - 3.3 K/cumm [facility] Monocyte abs 1.9(H) 0.2 - 0.8 K/cumm [facility] Eosinophil abs 0.4 0.0 - 0.5 K/cumm [facility] Basophil abs 0.1 0.0 - 0.1 K/cumm [facility] Neutrophil pct 67.1 % [facility] Comment: Interpretive Data Percent cell count reference ranges are not reported, since discordance with absolute values may lead to misinterpretation of CBC data. Current Interpretive Data was last revised on 2017. Imm gran pct 5.3 % [facility] Comment: Interpretive Data Percent cell count reference ranges are not reported, since discordance with absolute values may lead to misinterpretation of CBC data. Current Interpretive Data was last revised on 2017. Lymphocyte pct 8.5 % [facility] Comment: Interpretive Data Percent cell count reference ranges are not reported, since discordance with absolute values may lead to misinterpretation of CBC data. Current Interpretive Data was last revised on 2017. Monocyte pct 15.6 % [facility] Comment: Interpretive Data Percent cell count reference ranges are not reported, since discordance with absolute values may lead to misinterpretation of CBC data. Current Interpretive Data was last revised on 2017. Eosinophil pct 2.8 % [facility] Comment: Interpretive Data Percent cell count reference ranges are not reported, since discordance with absolute values may lead to misinterpretation of CBC data. Current Interpretive Data was last revised on 2017. Basophil pct 0.7 % [facility] Comment: Interpretive Data Percent cell count reference ranges are not reported, since discordance with absolute values may lead to misinterpretation of CBC data. Current Interpretive Data was last revised on 2017. Blood 08/02/2024 5:45 AM [employer] AND B[employer] ASSEMBLER 08/02/2024 6:22 AM [employer] AND B[employer] ASSEMBLER us Padmini Mason NP LAB BLOOD ORDERABLES nal Result [facility] [id number] Department [place] [address] * (ABNORMAL) CBC with auto differential (08/02/2024 5:45 AM W[employer] AND BASE ASSEMBLER) WBC 12.4(H) 3.8 - 9.9 K/cumm Hgb 7.5(L) 11.9 - 15.5 g/dL [facility] Hct 28.7(L) 35.6 - 45.5 % [facility] Plt 402(H) 150 - 400 K/cumm [facility] MPV 11.2 9.1 - 12.3 fL [facility] RBC 2.53(L) 3.90 - 5.20 M/cumm [facility] MCV 113.4(H) 81.3 - 96.4 fL [facility] MCH 29.6 27.1 - 33.3 pg [facility] MCHC 26.1(L) 32.3 - 35.7 g/dL [facility] RDW CV 20.7(H) 11.1 - 14.9 % [facility] RDW SD 85.8(H) 35.7 - 48.1 fL [facility] NRBC abs 0.08(H) 0.00 - 0.01 K/cumm LAINE Blood 08/02/2024 5:45 AM W[employer] AND BASE ASSEMBLER 08/02/2024 6:22 AM W[employer] AND BASE ASSEMBLER us Padmini Mason NP LAB BLOOD ORDERABLES Fi nal Result [facility] [id number] Department [place] [address] * (ABNORMAL) eGFR (08/01/2024 6:03 AM W[employer] AND BASE ASSEMBLER) eGFR 4(L) >=60 mL/min/1. 73 m2 Comment: [...] of Race in Diagnosing Kidney Disease, JASN 202). The CKD-EPI equation should not be used for patients with unstable renal function and has not been validated in children and those over 70. Current interpretive data was last reviewed 2021. Blood 08/01/2024 6:03 AM W[employer] AND BASE ASSEMBLER 08/01/2024 6:37 AM W[employer] AND BASE ASSEMBLER Tanisha Winter CONTRACT ACCOUNTANT LAB BLOOD ORDERABLES Final Resul t Performing Organization Address City/[facility] Co de Phone Number [facility] [id number] Department [place] [address] * (ABNORMAL) Basic metabolic panel (08/01/2024 6:03 AM W[employer] AND BASE ASSEMBLER) Pathologist [facility] Sodium 136 135 - 145 mmol/L Potassium, pl 3.9 3.3 - 4.9 mmol/L [facility] Chloride 95(L) 97 - 110 mmol/L [facility] CO2 22 22 - 32 mmol/L [facility] Anion gap 19(H) 2 - 15 mmol/L [facility] BUN 66(H) 6 - 25 mg/dL [facility] Creatinine 9.73(H) 0.60 - 1.10 mg/dL [facility] Glucose 90 70 - 199 mg/dL [facility] Comment: Interpretive [...] 2022. Calcium 9.1 8.5 - 10.3 mg/dL [facility] Blood 08/01/2024 6:03 AM W[employer] AND BASE ASSEMBLER 08/01/2024 6:37 AM W[employer] AND BASE ASSEMBLER Tanisha Winter CONTRACT ACCOUNTANT LAB BLOOD ORDERABLES Final Resul t Performing Organization Address [facility]/ZIP Co de Phone Number [facility] [id number] Department [place] [address] * (ABNORMAL) eGFR (07/31/2024 8:40 AM W[employer] AND B[employer] ASSEMBLER) eGFR 4(L) >=60 mL/min/1. 73 m2 Comment: [...] last reviewed 2021. Blood 07/31/2024 8:40 AM [employer] AND BASE ASSEMBLER 07/31/2024 9:42 AM [employer] AND BASE ASSEMBLER Tanisha Winter NP LAB BLOOD ORDERABLES Final Resul t [facility] [id number] Department [place] [address] * (ABNORMAL) Basic metabolic panel (07/31/2024 8:40 AM W[employer] AND BASE ASSEMBLER) Sodium 139 135 - 145 mmol/L Potassium, pl 3.3 3.3 - 4.9 mmol/L [facility] Chloride 95(L) 97 - 110 mmol/L [facility] CO2 22 22 - 32 mmol/L [facility] Anion gap 22(H) 2 - 15 mmol/L [facility] BUN 62(H) 6 - 25 mg/dL [facility] Creatinine 9.53(H) 0.60 - 1.10 mg/dL [facility] Glucose 85 70 - 199 mg/dL [facility] Comment: Interpretive Data Fasting glucose >/= [...] 2022. Calcium 9.4 8.5 - 10.3 mg/dL [facility] Blood 07/31/2024 8:40 AM W[employer] AND BASE ASSEMBLER 07/31/2024 9:42 AM W[employer] AND BASE ASSEMBLER us Tanisha Winter NP LAB BLOOD ORDERABLES Final Resul t [facility] [id number] Department [place] [address] * (ABNORMAL) eGFR (07/28/2024 4:32 AM W[employer] AND B[employer] ASSEMBLER) eGFR 5(L) >=60 mL/min/1. 73 m2 Comment: [...] of Race in Diagnosing Kidney Disease, JASN 202). The CKD-EPI equation should not be used for patients with unstable renal function and has not been validated in children and those over 70. Current interpretive data was last reviewed 2021. Blood 07/28/2024 4:32 AM W[employer] AND BASE ASSEMBLER 07/28/2024 4:57 AM [employer] AND BASE ASSEMBLER us Nga Dumont MD LAB BLOOD ORDERABL ES Final Result [facility] [id number] Department [place] [address] * (ABNORMAL) Differential, auto (07/28/2024 4:32 AM [employer] AND B[employer] ASSEMBLER) Neutrophil abs 7.5(H) 1.5 - 6.5 K/cumm Imm gran abs 0.7(H) 0.0 - 0.1 K/cumm [facility] Lymphocyte abs 1.0 0.8 - 3.3 K/cumm [facility] Monocyte abs 1.5(H) 0.2 - 0.8 K/cumm [facility] Eosinophil abs 0.2 0.0 - 0.5 K/cumm [facility] Basophil abs 0.1 0.0 - 0.1 K/cumm [facility] Neutrophil pct 68.9 % [facility] Comment: Interpretive Data Percent cell count reference ranges are not reported, since discordance with absolute values may lead to misinterpretation of CBC data. Current Interpretive Data was last revised on 2017. Imm gran pct 5.9 % [facility] Comment: Interpretive Data Percent cell count reference ranges are not reported, since discordance with absolute values may lead to misinterpretation of CBC data. Current Interpretive Data was last revised on 2017. Lymphocyte pct 9.0 % [facility] Comment: Interpretive Data Percent cell count reference ranges are not reported, since discordance with absolute values may lead to misinterpretation of CBC data. Current Interpretive Data was last revised on 2017. Monocyte pct 13.5 % [facility] Comment: Interpretive Data Percent cell count reference ranges are not reported, since discordance with absolute values may lead to misinterpretation of CBC data. Current Interpretive Data was last revised on 2017. Eosinophil pct 1.6 % [facility] Comment: Interpretive Data Percent cell count reference ranges are not reported, since discordance with absolute values may lead to misinterpretation of CBC data. Current Interpretive Data was last revised on 2017. Basophil pct 1.1 % [facility] Comment: Interpretive Data Percent cell count reference ranges are not reported, since discordance with absolute values may lead to misinterpretation of CBC data. Current Interpretive Data was last revised on 2017. Blood 07/28/2024 4:32 AM W[employer] AND BASE ASSEMBLER 07/28/2024 4:57 AM W[employer] AND BASE ASSEMBLER us Nga Dumont MD LAB BLOOD ORDERABL ES Final Result [facility] [id number] Department [place] [address] * (ABNORMAL) CBC with auto differential (07/28/2024 4:32 AM W[employer] AND B[employer] ASSEMBLER) WBC 11.0(H) 3.8 - 9.9 K/cumm Hgb 9.5(L) 11.9 - 15.5 g/dL [facility] Hct 32.8(L) 35.6 - 45.5 % [facility] Plt 353 150 - 400 K/cumm [facility] MPV 11.6 9.1 - 12.3 fL [facility] RBC 3.33(L) 3.90 - 5.20 M/cumm [facility] MCV 98.5(H) 81.3 - 96.4 fL [facility] MCH 28.5 27.1 - 33.3 pg [facility] MCHC 29.0(L) 32.3 - 35.7 g/dL [facility] RDW CV Not Measured 11.1 - 14.9 % [facility] RDW SD Not Measured 35.7 - 48.1 fL [facility] NRBC abs 0.12(H) 0.00 - 0.01 K/cumm [facility] Blood 07/28/2024 4:32 AM W[employer] AND BASE ASSEMBLER 07/28/2024 4:57 AM [employer] AND B[employer] ASSEMBLER us Nga Dumont MD LAB BLOOD ORDERABL ES Final Result Performing Organization Address [facility] Co de Phone Number [facility] [phone] [address] Department [place] [address] * Phosphorus (07/28/2024 4:32 AM W[employer] AND BASE ASSEMBLER) Pathologist [facility] Phosphorus, pl 4.4 2.3 - 4.5 mg/dL Blood 07/28/2024 4:32 AM [employer] AND B[employer] ASSEMBLER 07/28/2024 4:57 AM [employer] AND B[employer] ASSEMBLER us Waqas Garcia MD LAB BLOOD ORDERABLES Final Resu lt Performing Organization Address [facility] de Phone Number [facility] [phone] Department [place] [address] * (ABNORMAL) Comprehensive metabolic panel (07/28/2024 4:32 AM [employer]SEMBLER) Sodium 140 135 - 145 mmol/L Potassium, pl 3.1(L) 3.3 - 4.9 mmol/L [facility] Chloride 96(L) 97 - 110 mmol/L [facility] CO2 25 22 - 32 mmol/L [facility] Anion gap 19(H) 2 - 15 mmol/L [facility] BUN 47(H) 6 - 25 mg/dL [facility] Creatinine 9.08(H) 0.60 - 1.10 mg/dL [facility] Glucose 103 70 - 199 mg/dL [facility] Comment: Interpretive Data Fasting glucose >/= [...] Units/L [facility] Blood 07/28/2024 4:32 AM [employer] AND [employer] ASSEMBLER 07/28/2024 4:57 AM [employer] AND B[employer] ASSEMBLER Nga Dumont MD LAB BLOOD ORDERABL ES Final Result [facility] [address] Department [place] [address] * XR Kub (07/27/2024 10:38 AM [employer] AND B[employer] ASSEMBLER) Anatomical Region Laterality Modality Body, Abdomen N/A Computed Radiogr aphy 07/27/2024 10:4 8 AM [employer] AND BASE ASSEMBLER Impressions 07/27/2024 10:48 AM [employer] AND B[employer] ASSEMBLER Findings/impression: Limited examination given technique. Nonobstructive bowel gas pattern. ??Right double-J ureteral stent appears appropriately positioned. ??Percutaneous catheter terminating in the pelvis likely represents peritoneal dialysis catheter. ??No acute osseous abnormality. ??Lung bases are unremarkable. Electronically signed by: Peter Porter II, D.O. Narrative 07/27/2024 10:48 AM [employer] AND BASE ASSEMBLER EXAMINATION: XR KUB DATE: 07/27/2024 10:25 AM [...] Lung bases are unremarkable. Electronically signed by: Peter Porter II, D.O. us Waqas Garcia MD IMG XR PROCEDURES Final Result * (ABNORMAL) eGFR (07/26/2024 11:38 AM [employer] AND B[employer] ASSEMBLER) eGFR 4(L) >=60 mL/min/1. 73 m2 Comment: [...] of Race in Diagnosing Kidney Disease, JASN 202). The CKD-EPI equation should not be used for patients with unstable renal function and has not been validated in children and those over 70. Current interpretive data was last reviewed 2021. Blood 07/26/2024 11:3 8 AM [employer] BASE ASSEMBLER 07/26/2024 12:44 PM [employer] ASSEMBLER us Nga Dumont MD LAB BLOOD ORDERABL ES Final Result [facility] [address] Department [place] [address] * (ABNORMAL) Differential, auto (07/26/2024 11:38 AM [employer] ASSEMBLER) Neutrophil abs 11.4(H) 1.5 - 6.5 K/cumm Imm gran abs 1.1(H) 0.0 - 0.1 K/cumm [facility] Lymphocyte abs 0.7(L) 0.8 - 3.3 K/cumm [facility] Monocyte abs 1.6(H) 0.2 - 0.8 K/cumm [facility] Eosinophil abs 0.2 0.0 - 0.5 K/cumm [facility] Basophil abs 0.1 0.0 - 0.1 K/cumm [facility] Neutrophil pct 75.7 % [facility] Comment: Interpretive Data Percent cell count reference ranges are not reported, since discordance with absolute values may lead to misinterpretation of CBC data. Current Interpretive Data was last revised on 2017. Imm gran pct 6.9 % [facility] Comment: Interpretive Data Percent cell count reference ranges are not reported, since discordance with absolute values may lead to misinterpretation of CBC data. Current Interpretive Data was last revised on 2017. Lymphocyte pct 4.9 % [facility] Comment: Interpretive Data Percent cell count reference ranges are not reported, since discordance with absolute values may lead to misinterpretation of CBC data. Current Interpretive Data was last revised on 2017. Monocyte pct 10.7 % [facility] Comment: Interpretive Data Percent cell count reference ranges are not reported, since discordance with absolute values may lead to misinterpretation of CBC data. Current Interpretive Data was last revised on 2017. Eosinophil pct 1.1 % [facility] Comment: Interpretive Data Percent cell count reference ranges are not reported, since discordance with absolute values may lead to misinterpretation of CBC data. Current Interpretive Data was last revised on 2017. Basophil pct 0.7 % [facility] Comment: Interpretive Data Percent cell count reference ranges are not reported, since discordance with absolute values may lead to misinterpretation of CBC data. Current Interpretive Data was last revised on 2017. Blood 07/26/2024 11:3 8 AM [employer] B[employer] ASSEMBLER 07/26/2024 12:44 PM [employer] ASSEMBLER us Nga Dumont MD LAB BLOOD ORDERABL ES Final Result Performing Organization Address City/[facility]/ZIP Co de Phone Number [facility] [place] [address] [place] [address] * (ABNORMAL) CBC with auto differential (07/26/2024 11:38 AM [employer] ASSEMBLER) WBC 15.1(H) 3.8 - 9.9 K/cumm Hgb 10.2(L) 11.9 - 15.5 g/dL [facility] Hct 34.9(L) 35.6 - 45.5 % [facility] Plt 304 150 - 400 K/cumm [facility] MPV 12.9(H) 9.1 - 12.3 fL [facility] RBC 3.54(L) 3.90 - 5.20 M/cumm [facility] MCV 98.6(H) 81.3 - 96.4 fL [facility] MCH 28.8 27.1 - 33.3 pg [facility] MCHC 29.2(L) 32.3 - 35.7 g/dL [facility] RDW CV 27.0(H) 11.1 - 14.9 % [facility] RDW SD 92.1(H) 35.7 - 48.1 fL [facility] NRBC abs 0.21(H) 0.00 - 0.01 K/cumm [facility] Blood 07/26/2024 11:3 8 AM [employer] ASSEMBLER 07/26/2024 12:44 PM [employer] ASSEMBLER us Nga Dumont MD LAB BLOOD ORDERABL ES Final Result Performing Organization Address City/[facility]/ZIP Co de Phone Number [facility] [place] [address] Department [place] [address] * (ABNORMAL) Comprehensive metabolic panel (07/26/2024 11:38 AM [employer] ASSEMBLER) Sodium 138 135 - 145 mmol/L Potassium, [...] [facility] Blood 07/26/2024 11:3 8 AM [employer] ASSEMBLER 07/26/2024 12:44 PM [employer] ASSEMBLER us Nga Dumont MD LAB BLOOD ORDERABL ES Final Result [facility] [address] Department [place] [address] * (ABNORMAL) CBC with auto differential (07/25/2024 8:10 AM [employer] ASSEMBLER) [facility] WBC 18.6(H) 3.8 - 9.9 K/cumm Hgb 9.8(L) 11.9 - 15.5 g/dL [facility] Hct 32.5(L) 35.6 - 45.5 % [facility] Plt 276 150 - 400 K/cumm [facility] MPV 12.7(H) 9.1 - 12.3 fL [facility] RBC 3.37(L) 3.90 - 5.20 M/cumm [facility] MCV 96.4 81.3 - 96.4 fL [facility] MCH 29.1 27.1 - 33.3 pg [facility] MCHC 30.2(L) 32.3 - 35.7 g/dL [facility] RDW CV 25.7(H) 11.1 - 14.9 % [facility] RDW SD 85.3(H) 35.7 - 48.1 fL [facility] NRBC abs 0.23(H) 0.00 - 0.01 K/cumm [facility] Blood 07/25/2024 8:10 AM [employer] ASSEMBLER 07/25/2024 8:32 AM [employer] ASSEMBLER Sudheer Escobar MD LAB BLOOD ORDERABLES Edited R esult - Final [facility] [address] Department [place] [address] * (ABNORMAL) Manual Differential (07/25/2024 8:10 AM [employer] ASSEMBLER) [facility] Differential Manual Cells Counted 100 [facility] Neutrophil abs 16.6(H) 1.5 - 6.5 K/cumm [facility] Lymphocyte abs 0.6(L) 0.8 - 3.3 K/cumm [facility] Monocyte abs 1.5(H) 0.2 - 0.8 K/cumm [facility] Neutrophil pct 89.0 % [facility] Comment: Interpretive Data Percent cell count reference ranges are not reported, since discordance with absolute values may lead to misinterpretation of CBC data. Current Interpretive Data was last revised on 2017. Lymphocyte pct 3.0 % [facility] Comment: Interpretive Data Percent cell count reference ranges are not reported, since discordance with absolute values may lead to misinterpretation of CBC data. Current Interpretive Data was last revised on 2017. Monocyte pct 8.0 % [facility] Comment: Interpretive Data Percent cell count reference ranges are not reported, since discordance with absolute values may lead to misinterpretation of CBC data. Current Interpretive Data was last revised on 2017. RBC morphology Consistent with RBC Indicies [facility] Platelet estimate #[id number] [facility] Blood 07/25/2024 8:10 AM [employer] B[employer] ASSEMBLER 07/25/2024 8:32 AM [employer] ASSEMBLER Sudheer Escobar MD LAB BLOOD ORDERABLES Final Re sult Performing Organization Address [facility] Co de Phone Number [facility] [phone] Department [place] [place] [address] * Type and screen (07/25/2024 8:10 AM [employer] ASSEMBLER) Pathologist [facility] ABO Rh B Positive Arianna, indirect Negative [facility] Blood 07/25/2024 8:10 AM [employer] B[employer] ASSEMBLER 07/25/2024 8:36 AM [employer] AND B[employer] ASSEMBLER Narrative [facility] - 07/25/2024 9:19 AM [employer] B[employer] ASSEMBLER Has the patient had Daratumumab or Isatuximab in the past 6 months?->Unknown Marilyn Martinez NP LAB BLOOD BANK TANYA T ORDERABLES Final Result Performing Organization Address [facility] Co de Phone Number [facility] [address] Department of [employer] [place] [address] * (ABNORMAL) eGFR (07/24/2024 1:46 AM [employer] ASSEMBLER) Pathologist [facility] eGFR 4(L) >=60 mL/min/1. 73 m2 Comment: [...] last reviewed 2021. Blood 07/24/2024 1:46 AM [employer] ASSEMBLER 07/24/2024 2:13 AM [employer] ASSEMBLER Marilyn Martinez CONTRACT ACCOUNTANT LAB BLOOD ORDERABL ES Final Result [facility] [address] Department [place] [address] * (ABNORMAL) CBC without differential (07/24/2024 1:46 AM [employer] ASSEMBLER) WBC 18.7(H) 3.8 - 9.9 K/cumm Hgb 9.5(L) 11.9 - 15.5 g/dL [facility] Hct 30.0(L) 35.6 - 45.5 % [facility] Plt 234 150 - 400 K/cumm [facility] MPV 12.1 9.1 - 12.3 fL [facility] RBC 3.24(L) 3.90 - 5.20 M/cumm [facility] MCV 92.6 81.3 - 96.4 fL [facility] MCH 29.3 27.1 - 33.3 pg [facility] MCHC 31.7(L) 32.3 - 35.7 g/dL [facility] RDW CV 23.4(H) 11.1 - 14.9 % [facility] RDW SD 74.1(H) 35.7 - 48.1 fL [facility] NRBC abs 0.54(H) 0.00 - 0.01 K/cumm [facility] Blood 07/24/2024 1:46 AM [employer] B[employer] ASSEMBLER 07/24/2024 2:09 AM [employer] ASSEMBLER Marilyn Martinez NP LAB BLOOD ORDERABL ES Final Result Performing Organization Address [facility] de Phone Number [facility] [phone] [facility] [employer] [place] [address] * Phosphorus (07/24/2024 1:46 AM [employer] ASSEMBLER) Phosphorus, pl 3.4 2.3 - 4.5 mg/dL Blood 07/24/2024 1:46 AM [employer] ASSEMBLER 07/24/2024 2:13 AM [employer] B[employer] ASSEMBLER Marilyn Martinez NP LAB BLOOD ORDERABL ES Final Result Performing Organization Address [facility] de Phone Number [facility] [phone] [facility] [employer] [place] [address] * Magnesium (07/24/2024 1:46 AM W[employer] AND B[employer] ASSEMBLER) Magnesium 2.5 1.4 - 2.5 mg/dL Blood 07/24/2024 1:46 AM [employer] ASSEMBLER 07/24/2024 2:13 AM [employer] B[employer] ASSEMBLER Marilyn Martinez NP LAB BLOOD ORDERABL ES Final Result Performing Organization Address [facility] de Phone Number [facility] [phone] [facility] [employer] [place] [address] * (ABNORMAL) Basic metabolic panel (07/24/2024 1:46 AM [employer] ASSEMBLER) Sodium 135 135 - 145 mmol/L Potassium, pl 3.5 3.3 - 4.9 mmol/L [facility] Chloride 91(L) 97 - 110 mmol/L [facility] CO2 21(L) 22 - 32 mmol/L [facility] Anion gap 23(H) 2 - 15 mmol/L [facility] BUN 53(H) 6 - 25 mg/dL [facility] Creatinine 9.10(H) 0.60 - 1.10 mg/dL [facility] Glucose 150 70 - 199 mg/dL [facility] Comment: [...] 2022. Calcium 9.4 8.5 - 10.3 mg/dL [facility] Blood 07/24/2024 1:46 AM [employer] ASSEMBLER 07/24/2024 2:13 AM [employer] ASSEMBLER Marilyn Martinez NP LAB BLOOD ORDERABL ES Final Result [facility] [address] Department [place] [address] * (ABNORMAL) eGFR (07/23/2024 2:02 AM [employer] ASSEMBLER) eGFR 5(L) >=60 mL/min/1. 73 m2 Comment: [...] last reviewed 2021. Blood 07/23/2024 2:02 AM [employer] ASSEMBLER 07/23/2024 2:16 AM [employer] B[employer] ASSEMBLER Tanika KNAPP LAB BLOOD ORDERABLES F inal Result [facility] [address] Department [place] [address] * (ABNORMAL) Protime-INR (07/23/2024 2:02 AM W[employer] B[employer] ASSEMBLER) PT 19.3(H) 9.7 - 13.0 sec INR 1.77(H) 0.90 - 1.20 [facility] [place] Comment: Interpretive data Oral anticoagulant therapeutic ranges: Venous thromboembolism prophylaxis or treatment: 2.0-3.0 CARDIOLOGY Standard range: 2.0-3.0 High-intensity range: 2.5-3.5 Refer to indication-specific guidelines for appropriate target ranges for prosthetic heart valve replacement. Current interpretive data was last revised on 2019. Blood 07/23/2024 2:02 AM [employer] B[employer] ASSEMBLER 07/23/2024 2:14 AM [employer] B[employer] ASSEMBLER Marilyn Martinez NP LAB BLOOD ORDERABL ES Final Result Performing Organization Address [facility]/ZIP Co de Phone Number [facility] [place] [address] Department [place] [address] * (ABNORMAL) CBC without differential (07/23/2024 2:02 AM W[employer] B[employer] ASSEMBLER) WBC 18.3(H) 3.8 - 9.9 K/cumm Hgb 9.2(L) 11.9 - 15.5 g/dL [facility] Hct 26.7(L) 35.6 - 45.5 % [facility] Plt 236 150 - 400 K/cumm [facility] MPV 12.6(H) 9.1 - 12.3 fL [facility] RBC 3.09(L) 3.90 - 5.20 M/cumm [facility] MCV 86.4 81.3 - 96.4 fL [facility] MCH 29.8 27.1 - 33.3 pg [facility] MCHC 34.5 32.3 - 35.7 g/dL [facility] RDW CV 19.0(H) 11.1 - 14.9 % [facility] RDW SD 54.2(H) 35.7 - 48.1 fL [facility] NRBC abs 0.39(H) 0.00 - 0.01 K/cumm [facility] Blood 07/23/2024 2:02 AM [employer] B[employer] ASSEMBLER 07/23/2024 2:14 AM W[employer] AND B[employer] ASSEMBLER Marilyn Martinez NP LAB BLOOD ORDERABL ES Final Result Performing Organization Address City/[facility]/ZIP Co de Phone Number [facility] [place] [address] Department [place] [address] * Phosphorus (07/23/2024 2:02 AM W[employer] AND B[employer] ASSEMBLER) Phosphorus, pl 3.0 2.3 - 4.5 mg/dL Blood 07/23/2024 2:02 AM [employer] ASSEMBLER 07/23/2024 2:16 AM [employer] AND B[employer] ASSEMBLER Marilyn Lyric Juan CONTRACT ACCOUNTANT LAB BLOOD ORDERABL ES Final Result [facility] [place] [address] [employer] [place] [address] * Magnesium (07/23/2024 2:02 AM W[employer] AND B[employer] ASSEMBLER) Pathologist [facility] Magnesium 2.4 1.4 - 2.5 mg/dL Blood 07/23/2024 2:02 AM [employer] B[employer] ASSEMBLER 07/23/2024 2:16 AM W[employer] AND BASE ASSEMBLER Marilyn Gunter Juan WOODALL LAB BLOOD ORDERABL ES Final Result Performing Organization Address [facility] Co de Phone Number [facility] [place] [phone] Department [employer] [place] [address] * (ABNORMAL) Basic metabolic panel (07/23/2024 2:02 AM W[employer] B[employer] ASSEMBLER) Sodium 135 135 - 145 mmol/L Potassium, pl 3.7 3.3 - 4.9 mmol/L [facility] Chloride 92(L) 97 - 110 mmol/L [facility] CO2 18(L) 22 - 32 mmol/L [facility] Anion gap 25(H) 2 - 15 mmol/L [facility] BUN 50(H) 6 - 25 mg/dL [facility] Creatinine 8.58(H) 0.60 - 1.10 mg/dL [facility] Glucose 115 70 - 199 mg/dL [facility] Comment: Interpretive Data Fasting glucose >/= 126 [...] 2022. Calcium 9.1 8.5 - 10.3 mg/dL [facility] Blood 07/23/2024 2:02 AM [employer] BASE ASSEMBLER 07/23/2024 2:16 AM [employer] B[employer] ASSEMBLER us Marilyn Martinez NP LAB BLOOD ORDERABL ES Final Result [facility] [address] [facility] Department of Laboratories [place] [phone] * Critical Care (07/22/2024 8:22 AM W[employer] AND B[employer] ASSEMBLER) Narrative OfomaBlake MD - 07/22/2024 8:22 AM [employer] AND B[employer] ASSEMBLER Marilyn Martinez NP ? 07/22/2024 ??4:47 PM [...] plan with the patient's team and other medical/managing consultant staff. This time was in addition to and separate from care provided by other practitioners on this day of service. ? I spent time reviewing and interpreting data from bedside monitors, laboratory results, and imaging, I spent time discussing the management of this critically ill patient with consultants and the medical staff and I spent time documenting in the medical record us Marilyn Martinez CONTRACT ACCOUNTANT IN CLINIC/BEDSIDE ORDERABLES Final Result * TRANSTHORACIC ECHO (TTE) COMPLETE W DOPPLER/CF W CONTRAST (07/22/2024 7:00 AM [employer] B[employer] ASSEMBLER) Anatomical Region Laterality Modality Ultrasound 07/22/2024 6:44 AM W[employer] AND BASE ASSEMBLER Narrative 07/22/2024 8:34 AM W[employer] AND BASE ASSEMBLER [address], [place] [phone] Echocardiogram Report Patient Name: DORY NOBLE L : 1960 Study Date: 07/22/2024 6:44:33 AM Gender: F Tech: Location: [id number] Ref Provider: BLAIR NOE ?Height(Cm): 152 BSA: 2.02 [...] By: Jennifer Carmichael MD 07/22/2024 8:33:01 AM [employer] B[employer] ASSEMBLER Procedure Note Rubin Carmichael MD - 07/22/2024 [place] [address] Echocardiogram Report Patient Name: DORY NOBLE L : 1960 Study Date: 07/22/2024 6:44:33 AM Gender: F Tech: Location: [id number] Ref Provider: BLAIR NOE Height(Cm): 152 BSA: 2.02 Weight(Kg): 97 Heart Rate: 85 BP: 121 / 72 Quality: Good Order Provider: BLAIR NOE PROCEDURES: Echocardiographic Report: Transthoracic echocardiogram with complete [...] By: Jennifer Carmichael MD 07/22/2024 8:33:01 AM [employer] AND B[employer] ASSEMBLER us Blair Noe APRN CV ECHO PROCEDURES Final Result * (ABNORMAL) eGFR (07/22/2024 5:41 AM W[employer] AND B[employer] ASSEMBLER) eGFR 5(L) >=60 mL/min/1. 73 m2 Comment: [...] last reviewed 2021. Blood 07/22/2024 5:41 AM W[employer] AND BASE ASSEMBLER 07/22/2024 5:44 AM W[employer] AND BASE ASSEMBLER Tanika KNAPP LAB BLOOD ORDERABLES F inal Result [facility] [address] Department [place] [address] * (ABNORMAL) CBC without differential (07/22/2024 5:41 AM W[employer] AND BASE ASSEMBLER) Pathologist [facility] WBC 19.5(H) 3.8 - 9.9 K/cumm Hgb 8.9(L) 11.9 - 15.5 g/dL [facility] Hct 25.8(L) 35.6 - 45.5 % [facility] Plt 241 150 - 400 K/cumm [facility] MPV 12.2 9.1 - 12.3 fL [facility] RBC 3.03(L) 3.90 - 5.20 M/cumm [facility] MCV 85.1 81.3 - 96.4 fL [facility] MCH 29.4 27.1 - 33.3 pg [facility] MCHC 34.5 32.3 - 35.7 g/dL [facility] RDW CV 16.3(H) 11.1 - 14.9 % [facility] RDW SD 47.0 35.7 - 48.1 fL [facility] NRBC abs 0.24(H) 0.00 - 0.01 K/cumm [facility] Blood 07/22/2024 5:41 AM W[employer] AND BASE ASSEMBLER 07/22/2024 5:44 AM W[employer] AND BASE ASSEMBLER Blair Noe APRN LAB BLOOD ORDERABL ES Final Result Performing Organization Address [facility] Co de Phone Number [facility] [place] [address] [place] [address] * Phosphorus (07/22/2024 5:41 AM W[employer] AND BASE ASSEMBLER) Phosphorus, pl 2.9 2.3 - 4.5 mg/dL Blood 07/22/2024 5:41 AM W[employer] AND BASE ASSEMBLER 07/22/2024 5:44 AM W[employer] AND BASE ASSEMBLER Marilyn Martinez NP LAB BLOOD ORDERABL ES Final Result Performing Organization Address [facility] Co de Phone Number LA[facility] [address] Department of [employer] [place] [address] * Magnesium (07/22/2024 5:41 AM W[employer] AND BASE ASSEMBLER) Magnesium 2.5 1.4 - 2.5 mg/dL Blood 07/22/2024 5:41 AM W[employer] AND BASE ASSEMBLER 07/22/2024 5:44 AM W[employer] AND BASE ASSEMBLER Marilyn Martinez NP LAB BLOOD ORDERABL ES Final Result [facility] [place] [address] Department [place] [address] * (ABNORMAL) Basic metabolic panel (07/22/2024 5:41 AM W[employer] AND BASE ASSEMBLER) Sodium 132(L) 135 - 145 mmol/L Potassium, pl 4.0 3.3 - 4.9 mmol/L [facility] Chloride 91(L) 97 - 110 mmol/L [facility] CO2 18(L) 22 - 32 mmol/L [facility] Anion gap 23(H) 2 - 15 mmol/L [facility] BUN 50(H) 6 - 25 mg/dL [facility] Creatinine 8.41(H) 0.60 - 1.10 mg/dL [facility] Glucose 139 70 - 199 mg/dL [facility] Comment: Interpretive Data Fasting glucose >/= [...] 2022. Calcium 9.2 8.5 - 10.3 mg/dL [facility] Blood 07/22/2024 5:41 AM W[employer] AND BASE ASSEMBLER 07/22/2024 5:44 AM W[employer] AND BASE ASSEMBLER us Marilyn Martinez NP LAB BLOOD ORDERABL ES Final Result [facility] [place] [address] Department [place] [address] * Cell Differential, Body Fluid (07/22/2024 3:17 AM W[employer] AND BASE ASSEMBLER) Total cells diffed 100 % Comment: Interpretive [...] % [facility] Fluid 07/22/2024 3:17 AM W[employer] AND BASE ASSEMBLER 07/22/2024 3:17 AM W[employer] AND BASE ASSEMBLER Waqas Garcia MD LAB BODY FLUIDS AND STOOLS STEPHANIA PELAYO Final Result Performing Organization Address [facility] de Phone Number [facility] [address] [employer] [place] [address] * Cell count w/rflx diff, body fluid (07/22/2024 3:17 AM W[employer] AND BASE ASSEMBLER) Specimen type, fld Dialysate Color, fld Straw [...] /cumm [facility] Fluid 07/22/2024 3:17 AM W[employer] AND BASE ASSEMBLER 07/22/2024 3:17 AM W[employer] AND BASE ASSEMBLER Waqas Garcia MD LAB BODY FLUIDS AND STOOLS STEPHANIA PELAYO Final Result Performing Organization Address [facility] Co de Phone Number [facility] [address] [place] [place] [address] * (ABNORMAL) Urinalysis reflex to microscopic and culture Urine (07/22/2024 1:57 AM W[employer] AND BASE ASSEMBLER) Color, ur Mitzi Yellow Clarity, ur Turbid(A) Clear [facility] Specific gravity, ur 1.020 1.003 - 1.030 [facility] CH pH, urine 8.0 [facility] Comment: Interpretive Data ? Urine pH is affected by diet, medications, systemic acid-base disturbances, and renal tubular function. ??pH may affect urinary stone formation. ??For example, urine pH below 6.0 may help reduce the tendency for calcium phosphate stones and pH greater than 6.0 may reduce the tendency for uric acid stone formation. Source: [facility] [employer] Current Interpretive Data was last revised on 2017 Protein, ur ql 3+(A) Negative [facility] Glucose, ur ql Negative Negative [facility] Ketones, ur Negative Negative [facility] Bilirubin, ur Negative Negative [facility] Blood, ur 3+(A) Negative [facility] Urobilinogen, ur <2.0 <2.0 mg/dL [facility] Nitrite, ur Negative Negative [facility] Leukocyte esterase, ur 4+(A) Negative [facility] UA reflex comment Reflex to microscopic UA will be performed. [facility] Urine 07/22/2024 1:57 AM W[employer] AND BASE ASSEMBLER 07/22/2024 2:05 AM [employer] AND BASE ASSEMBLER Blair Noe APRN LAB MICROBIOLOGY - GENERAL ORDERABLES Final Result Performing Organization Address [facility] de Phone Number [facility] [place] [address] Department [place] [address] * (ABNORMAL) Urinalysis, microscopic only (07/22/2024 1:57 AM W[employer] AND BASE ASSEMBLER) WBC, ur >50(A) 0 - 5 /HPF RBC, ur >50(A) 0 - 2 /HPF [facility] Epithelial cells, squamous, ur 6-10(A) 0 - 5 /HPF [facility] Bacteria, ur Trace(A) [facility] Culture Reflex Comment Reflex to urine culture will be performed. [facility] Urine 07/22/2024 1:57 AM W[employer] AND BASE ASSEMBLER 07/22/2024 2:05 AM [employer] AND BASE ASSEMBLER Blair Noe APRN LAB URINE ORDERABL ES Final Result Performing Organization Address [facility] de Phone Number [facility] [address] Department [place] [address] * Urine culture Urine (07/22/2024 1:57 AM WICK AND BASE ASSEMBLER) Report Final Report: No growth Comment:Testing performed by : [facility], [address] [place]., [address] Urine 07/22/2024 1:57 AM WICK AND BASE ASSEMBLER 07/22/2024 4:30 AM WICK AND BASE ASSEMBLER Narrative LAINE - 07/23/2024 6:18 AM WICK AND BASE ASSEMBLER Urine culture reflexed based upon urinalysis results. Testing performed by [facility] Microbiology Laboratory ([phone]) us Blair Noe APRN LAB MICROBIOLOGY - GENERAL ORDERABLES Final Result Performing Organization Address City/[facility] Co de Phone Number [facility] [address] Department [place] [address] * ECG 12 lead (07/22/2024 1:33 AM WICK AND BASE ASSEMBLER) 07/22/2024 1:33 AM WICK AND BASE ASSEMBLER Narrative [facility] - 07/22/2024 9:16 AM WICK AND BASE ASSEMBLER Vent Rate: 118 bpm RR Interval: 505 msec VA Interval: 0 msec QRS Duration: 113 msec QT Interval: 354 msec QTC Interval: 424 msec P-R-T [place]: 0 - 54 - 211 degrees IMPRESSION: [...] Noe APRN ECG ORDERABLES Fi nal Result [employer] [facility] * (ABNORMAL) CBC without differential (07/22/2024 12:51 AM WICK AND BASE ASSEMBLER) WBC 20.0(H) 3.8 - 9.9 K/cumm Hgb 8.5(L) 11.9 - 15.5 g/dL [facility] Hct 24.3(L) 35.6 - 45.5 % [facility] Plt 236 150 - 400 K/cumm [facility] MPV 11.9 9.1 - 12.3 fL [facility] RBC 2.81(L) 3.90 - 5.20 M/cumm [facility] MCV 86.5 81.3 - 96.4 fL [facility] MCH 30.2 27.1 - 33.3 pg [facility] MCHC 35.0 32.3 - 35.7 g/dL [facility] RDW CV 15.6(H) 11.1 - 14.9 % [facility] RDW SD 46.7 35.7 - 48.1 fL [facility] NRBC abs 0.20(H) 0.00 - 0.01 K/cumm [facility] Blood 07/22/2024 12:5 1 AM WICK AND BASE ASSEMBLER 07/22/2024 12:55 AM WICK AND BASE ASSEMBLER us Blair Noe EQUIPMENT INSPECTOR LAB BLOOD ORDERABL ES Final Result [facility] [address] Department [place] [address] * Blood culture Blood (07/21/2024 11:44 PM WICK AND BASE ASSEMBLER) Report Final Report: No growth Comment:Testing performed by : [facility], [address] [place]., [address] Blood 07/21/2024 11:4 4 PM WICK AND BASE ASSEMBLER 07/22/2024 6:05 AM WICK AND BASE ASSEMBLER Narrative [facility] - 07/26/2024 7:00 AM WICK AND BASE ASSEMBLER From a different site than #1. Collection->Peripheral [...] performance characteristics have been verified by the [facility] Microbiology Laboratory. For questions about this culture, contact the Microbiology Laboratory at [phone]. Interpretive data was last revised on 24. Blair Noe APRN LAB MICROBIOLOGY - GENERAL ORDERABLES Final Result [facility] [place] [address] Department [place] [address] * Blood culture Blood (07/21/2024 11:44 PM WICK AND BASE ASSEMBLER) Report Final Report: No growth Comment:Testing performed by : [facility], [address] [place]., [address] Blood 07/21/2024 11:4 4 PM WICK AND BASE ASSEMBLER 07/22/2024 6:05 AM WICK AND BASE ASSEMBLER Narrative LAINE TOWNSEND - 07/26/2024 7:00 AM WICK AND BASE ASSEMBLER Collection->Peripheral 1. ?Blood cultures are incubated for [...] performance characteristics have been verified by the [facility] Microbiology Laboratory. For questions about this culture, contact the Microbiology Laboratory at [phone]. Interpretive data was last revised on 24. 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 ?? Rectal thickening, question for proctitis. [...] Superimposed consolidation not excluded. Stat report by [facility] Electronically signed by: Sulaiman Xie M.D. Narrative 07/22/2024 10:40 AM WICK AND BASE ASSEMBLER STUDY DESCRIPTION: CTA ABDOMEN PELVIS TECHNIQUE: Axial, [...] Superimposed consolidation not excluded. Stat report by [facility] Electronically signed by: Sulaiman Xie M.D. us Blair Noe APRN IMG CT PROCEDURES Final Result * Check Sample (07/21/2024 8:16 PM WICK AND BASE ASSEMBLER) ABO Rh B Positive [facility] HC[facility] OTHER 07/21/2024 8:16 PM WICK AND BASE ASSEMBLER 07/21/2024 8:22 PM WICK AND BASE ASSEMBLER Blake Nava MD LAB BLOOD ORDERABLES Fi nal Result Performing Organization Address City/State/[facility] Co pr Phone Number [facility] [address] Department [place] [address] CH * Critical Care (07/21/2024 7:48 PM WICK AND BASE ASSEMBLER) Narrative Evert Pizarro MD - 07/21/2024 7:48 PM WICK AND BASE ASSEMBLER Blair Noe APRN ? 07/22/2024 ??5:11 AM [...] plan with the ICU team and other medical/managing consultant staff, making frequent assessments and decisions [...] Final Result * Lactate (07/21/2024 6:55 PM WICK AND BASE ASSEMBLER) Lactate 0.9 0.7 - 2.0 mmol/L Blood 07/21/2024 6:55 PM WICK AND BASE ASSEMBLER 07/21/2024 7:13 PM WICK AND BASE ASSEMBLER Tanika KNAPP LAB BLOOD ORDERABLES F inal Result Performing Organization Address [facility] Co de Phone Number [facility] [place] [phone] Department [place] [address] * Calcium, ionized, whole blood (07/21/2024 6:55 PM WICK AND BASE ASSEMBLER) Ca, ionized, bld 4.60 4.50 - 5.10 mg/dL Blood 07/21/2024 6:55 PM WICK AND BASE ASSEMBLER 07/21/2024 7:13 PM WICK AND BASE ASSEMBLER Tanika KNAPP LAB BLOOD ORDERABLES F inal Result Performing Organization Address [facility] Co de Phone Number [facility] [place] [address] Department [place] [address] * (ABNORMAL) eGFR (07/21/2024 6:55 PM WICK AND BASE ASSEMBLER) eGFR 5(L) >=60 mL/min/1. 73 m2 Comment: [...] last reviewed 2021. Blood 07/21/2024 6:55 PM WICK AND BASE ASSEMBLER 07/21/2024 7:13 PM WICK AND BASE ASSEMBLER us Tanika KNAPP LAB BLOOD ORDERABLES F inal Result [facility] [place] [address] Department [place] [address] * (ABNORMAL) Thyroid Function [place] (07/21/2024 6:55 PM WICK AND BASE ASSEMBLER) TSH 10.30(H) 0.30 - 4.20 mcIUnit/mL Blood 07/21/2024 6:55 PM WICK AND BASE ASSEMBLER 07/21/2024 7:13 PM WICK AND BASE ASSEMBLER Tanika KNAPP LAB BLOOD ORDERABLES F inal Result Performing Organization Address [facility]/ZIP Co de Phone Number [place] [address] [facility] [employer] [place] [address] * Beta-hydroxybutyrate (07/21/2024 6:55 PM WICK AND BASE ASSEMBLER) Beta-Hydroxybut yrate 0.2 <=0.5 mmol/L Blood 07/21/2024 6:55 PM WICK AND BASE ASSEMBLER 07/21/2024 11:48 PM WICK AND BASE ASSEMBLER Blair Noe APRN LAB BLOOD ORDERABL ES Final Result Performing Organization Address [facility] Phone Number [place] [address] [place] [address] * Infection Prevention MRSA Only (Staphylococcus aureus) PCR Nasal (07/21/2024 6:55 PM WICK AND BASE ASSEMBLER) PCR Scrn, Methicillin resistant Staphylococcus aureus (MRSA) Not Detected Not Detected CH Comment: Interpretive Data Testing performed using Nucleic Acid Amplification with the RelTel Xpert MRSA NxG Assay. This assay detects target DNA from mecA, mecC and the SCCmec insertion site of Staphylococcus aureus using Real-Time PCR and has been cleared by the FDA. Performance characteristics have been verified by the [facility]. Current Interpretive Data was last revised on 2022 Nasal 07/21/2024 6:55 PM WICK AND BASE ASSEMBLER 07/21/2024 7:12 PM WICK AND BASE ASSEMBLER Tanika KNAPP LAB MICROBIOLOGY - GEN ERAL ORDERABLES Final Result Performing Organization Address [facility] Co de Phone Number [place] [address] [facility] [employer] [place] [address] CH * aPTT (07/21/2024 6:55 PM WICK AND BASE ASSEMBLER) aPTT 38 28 - 38 sec Comment: Interpretive Data Heparin therapeutic range: 66.0 - 100.0 seconds. Range based on correlation with therapeutic heparin activity range of 0.3 - 0.7 Units/mL. Current interpretive data was last revised on 2023. Blood 07/21/2024 6:55 PM WICK AND BASE ASSEMBLER 07/21/2024 7:13 PM WICK AND BASE ASSEMBLER [facility] [employer] LAB BLOOD ORDERABLES F inal Result Performing Organization Address [facility] Co de Phone Number [facility] [address] [place] [address] * (ABNORMAL) Protime-INR (07/21/2024 6:55 PM WICK AND BASE ASSEMBLER) Pathologist [facility] PT 23.3(H) 9.7 - 13.0 sec INR 2.12(H) 0.90 - 1.20 LAINE Comment: Interpretive data Oral anticoagulant therapeutic ranges: Venous thromboembolism prophylaxis or treatment: 2.0-3.0 CARDIOLOGY Standard range: 2.0-3.0 High-intensity range: 2.5-3.5 Refer to indication-specific guidelines for appropriate target ranges for prosthetic heart valve replacement. Current interpretive data was last revised on 2019. Blood 07/21/2024 6:55 PM WICK AND BASE ASSEMBLER 07/21/2024 7:13 PM WICK AND BASE ASSEMBLER [facility] [place] LAB BLOOD ORDERABLES F inal Result Performing Organization Address [facility] Co de Phone Number [facility] [address] [place] [address] * (ABNORMAL) CBC without differential (07/21/2024 6:55 PM WICK AND BASE ASSEMBLER) WBC 20.4(H) 3.8 - 9.9 K/cumm Hgb 8.4(L) 11.9 - 15.5 g/dL [facility] Hct 24.2(L) 35.6 - 45.5 % [facility] Plt 230 150 - 400 K/cumm [facility] MPV 12.2 9.1 - 12.3 fL [facility] RBC 2.79(L) 3.90 - 5.20 M/cumm [facility] MCV 86.7 81.3 - 96.4 fL [facility] MCH 30.1 27.1 - 33.3 pg [facility] MCHC 34.7 32.3 - 35.7 g/dL [facility] RDW CV 14.7 11.1 - 14.9 % [facility] RDW SD 44.9 35.7 - 48.1 fL [facility] NR[facility] abs 0.17(H) 0.00 - 0.01 K/cumm [facility] Blood 07/21/2024 6:55 PM WICK AND BASE ASSEMBLER 07/21/2024 7:13 PM WICK AND BASE ASSEMBLER Tanika De La Torre PA LAB BLOOD ORDERABLES F inal Result Performing Organization Address City/[facility]/ZIP Co de Phone Number [place] [place] [address] [place] [address] * Type and screen (07/21/2024 6:55 PM WICK AND BASE ASSEMBLER) Pathologist [facility] ABO Rh B Positive Arianna, indirect Negative [facility] Blood 07/21/2024 6:55 PM WICK AND BASE ASSEMBLER 07/21/2024 7:22 PM WICK AND BASE ASSEMBLER Narrative [facility] - 07/21/2024 8:22 PM WICK AND BASE ASSEMBLER Has the patient had Daratumumab or Isatuximab in the past 6 months?->Unknown Marilyn Martinez CONTRACT ACCOUNTANT LAB BLOOD BANK TANYA T ORDERABLES Final Result Performing Organization Address City/[facility]/ZIP Co de Phone Number [facility] [place] [address] [place] [address] * T4, free (07/21/2024 6:55 PM WICK AND BASE ASSEMBLER) Free T4 1.04 0.90 - 1.70 ng/dL Blood 07/21/2024 6:55 PM WICK AND BASE ASSEMBLER 07/21/2024 7:13 PM WICK AND BASE ASSEMBLER Tanikalisa Mccain Wil PA LAB BLOOD ORDERABLES F inal Result Performing Organization Address City/[facility]/ZIP Co de Phone Number [place] [address] [facility] [employer] [place] [address] * Phosphorus (07/21/2024 6:55 PM WICK AND BASE ASSEMBLER) Phosphorus, pl 2.5 2.3 - 4.5 mg/dL Blood 07/21/2024 6:55 PM WICK AND BASE ASSEMBLER 07/21/2024 7:13 PM WICK AND BASE ASSEMBLER [facility] PA LAB BLOOD ORDERABLES F inal Result Performing Organization Address [facility] Co de Phone Number [place] [address] [facility] [employer] [place] [address] * Magnesium (07/21/2024 6:55 PM WICK AND BASE ASSEMBLER) Magnesium 2.2 1.4 - 2.5 mg/dL Blood 07/21/2024 6:55 PM WICK AND BASE ASSEMBLER 07/21/2024 7:13 PM WICK AND BASE ASSEMBLER [facility] Wil PA LAB BLOOD ORDERABLES F inal Result Performing Organization Address [facility] Co de Phone Number [place] [address] [facility] [employer] [place] [address] * (ABNORMAL) Hepatic function panel (07/21/2024 6:55 PM WICK AND BASE ASSEMBLER) Bilirubin, total 0.6 0.1 - 1.2 mg/dL Bilirubin, direct 0.3 0.1 - 0.3 mg/dL [facility] Protein, pl 5.8(L) 6.5 - 8.5 g/dL [facility] Albumin 3.5 3.5 - 5.0 g/dL [facility] Alk phos 115 40 - 130 Units/L [facility] ALT 26 7 - 45 Units/L [facility] AST 19 10 - 45 Units/L [facility] Blood 07/21/2024 6:55 PM WICK AND BASE ASSEMBLER 07/21/2024 7:13 PM WICK AND BASE ASSEMBLER [facility] Wil PA LAB BLOOD ORDERABLES F inal Result Performing Organization Address City/[facility]/ZIP Co de Phone Number [place] [address] [place] [address] * (ABNORMAL) Basic metabolic panel (07/21/2024 6:55 PM WICK AND BASE ASSEMBLER) [facility] Sodium 135 135 - 145 mmol/L Potassium, pl 4.1 3.3 - 4.9 mmol/L [facility] Chloride 94(L) 97 - 110 mmol/L [facility] CO2 19(L) 22 - 32 mmol/L [facility] Anion gap 22(H) 2 - 15 mmol/L [facility] BUN 50(H) 6 - 25 mg/dL [facility] Creatinine 8.60(H) 0.60 - 1.10 mg/dL [facility] Glucose 105 70 - 199 mg/dL [facility] Comment: Interpretive Data Fasting glucose >/= [...] 2022. Calcium 9.1 8.5 - 10.3 mg/dL [facility] Blood 07/21/2024 6:55 PM WICK AND BASE ASSEMBLER 07/21/2024 7:13 PM WICK AND BASE ASSEMBLER [facility] [place] LAB BLOOD ORDERABLES F inal Result Performing Organization Address [facility]/ZIP Co de Phone Number [place] [place] [phone] [place] [address] * X-ray chest 1 view (Portable) (07/21/2024 6:42 PM WICK AND BASE ASSEMBLER) Anatomical Region Laterality Modality Body, Chest N/A Computed Radiogr aphy 07/21/2024 7:05 PM WICK AND BASE ASSEMBLER Impressions 07/21/2024 7:05 PM WICK AND BASE ASSEMBLER NO ACUTE PULMONARY CHANGE. Electronically signed by: Sulaiman Xie M.D. Narrative 07/21/2024 7:05 PM WICK AND BASE ASSEMBLER EXAMINATION: XR CHEST 1 VIEW HISTORY: Atrial [...] Result * POCT glucose (07/21/2024 6:33 PM WICK AND BASE ASSEMBLER) Glucose, POC 97 70 - 199 mg/dL Blood 07/21/2024 6:33 PM WICK AND BASE ASSEMBLER 07/21/2024 6:33 PM WICK AND BASE ASSEMBLER Blake Nava MD LAB POCT ORDERABLES - [place] [address] [address] Department [place] [address] * Cardiology Document Scan (07/15/2024 10:51 AM WICK AND BASE ASSEMBLER) Anatomical Region Laterality Modality Other Jia Beard NP CV CARDIAC SERVICES PROCEDUR ES Final Result * (ABNORMAL) Protime-INR (06/04/2024 12:25 PM WICK AND BASE ASSEMBLER) INR 3.1(H) [facility] Comment: Reference Range ? 0.9-1.1 Moderate-intensity Warfarin Therapy 2.0-3.0 Higher-intensity Warfarin Therapy ?? 3.0-4.0 PT 30.8(H) 9.0 - 11.5 sec [facility] Comment: For additional information, please refer to http://education.[employer]/faq/ORE253 (This link is being provided for informational/ educational purposes only.) Blood 06/04/2024 12:2 5 PM WICK AND BASE ASSEMBLER 06/04/2024 12:26 PM WICK AND BASE ASSEMBLER Jama Hoskins MD LAB BLOOD ORDERABLES Fin al Result [facility] [address] [place] [address] from Last 3 Months Insurance [facility] MEDICARE [place] MEDICARE Advance Directives For more information, please contact: [phone] * Full Code (Latest Code Status on File) Date Activated Date Inactivated Comments 07/25/2024 6:59 PM 08/04/2024 7:42 PM * Full Code Date Activated Date Inactivated Comments 07/21/2024 6:30 PM 07/25/2024 6:50 PM Care Teams Art Educator Relationship Specialty Start Date End Date Porsche Becker NP [address] [facility] [address] [place] [address] PCP - General Nurse Practitioner 08/19/24 Mookie Dubois MD Referring Physician Nephrology 02/20/22 Abigail Dougherty, RN [address] [address] Fire Apparatus Engineer 02/13/24 Jama Hoskins MD [address] [facility] [address] [place] [address] Consulting Physician Cardiology 02/20/24
--- OUTSIDE RECORDS SUMMARY | 2024-08-19 12:37 | XMS_ITS | Clinical Summary ---
Author Organization [facility] Address [address] [place] [address] Care Team Providers Care Sole Stainer Name Role Phone Unavailable Primary Care Provider Unavailabl e Source Comments [facility],non-owned Affiliates and Associated Physician Practices is amultiple site organization consisting of ambulatory clinics and hospital sitesin [place], [place], [place] and [place]. This disclosure is being madepursuant to the Care Everywhere program and may not contain all information available regarding this patient. Last updated 18.[facility] Allergies Active Allergy Reactions Criticality Noted Date [...] 12/21/1979 DTAP/TDAP/TD VACCINES (1 - Tdap) 1980 PNEUMOCOCCAL VACCINE 50+ (1 of 1 - PCV) 12/26/2011 ZOSTER VACCINE (1 of 2) 12/26/2011 COVID-19 VACCINE (1 - 2023-2 5 season) 2024 INFLUENZA VACCINE (#1) 2024 DEPRESSION SCREENING 07/16/2024 Respiratory Syncytial Virus (RSV) Vaccine Pt: or [...] patient's age to complete this topic MENINGOCOCCAL (Group B) VACCINE Aged Out No longer eligible based on patient's age to complete this topic MENINGOCOCCAL VACCINE Aged Out No radha romeo eligible based on patient's age to complete this topic PNEUMOCOCCAL VACCINE Aged Out No long er eligible based on patient's age to complete this topic
--- OUTSIDE RECORDS SUMMARY | 2024-08-19 12:37 | XMS_ITS | Encounter Summary ---
Author Organization [facility] Healthcare Address [address] [place] [address] Care Team Providers Care Power Distribution Engineer Name Role Phone Mookie Dubois MD Unavailable [phone] Abigail Dougherty RN Unavailable [phone] Jama Hoskins MD Unavailable [phone] Porsche Becker NP Primary Care Provider [phone] Reason for Visit * Reason Comments Hospital Follow Up Encounter Details Date Type Department Care Team (Late st Contact Info) Description 08/19/2024 11:30 AM RESIDENCE COUNSELOR Office Visit [facility] Medical Group Cardiology [address] [place] [address] Lydia Lewis NP [address] [place] [address] [place] [address] Hypotension due to hypovolemia (Primary Dx) Social History Tobacco Use Types Packs/Day Years Used Date Smoking Tobacco: Former Smokeless Tobacco: Never OASIS D0700: Social Isolation Answer Da te [...] materials from doctor or pharmacy Sometimes 08/07/2024 [facility] Utilities Answer Date Recorded In the [...] often do you attend chur ch or mandaen services? Patient declined 07/26/2024 Do you belong to any clubs o r organizations such as orthodoxy groups, unions, fraternal or athletic groups, or [...] Recorded Patient Health Questionnaire-2 Score 1 08/04/2024 [facility] of Occupat ional Health - Occupational Stress [...] any time in the past 12 m [facility], were you homeless or living in a senior living (including now)? No 07/26/2024 Personal Safety Answer Date Recorded Have you ever been in or are you currently in a harmful physical or emotional relationship or is someone making you feel afraid or unsafe? Denies 07/25/2024 Comments Unknown Sex and Gender Information Value Date Recorded Sex Assigned at Not on file 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 RESIDENCE COUNSELOR Gender Identity Not on file Sexual Orientation Not on file documented as of this encounter Last Filed Vital Signs Vital Sign Reading Time Taken Comments Blood Pressure 70/40 08/19/2024 11:34 AM RESIDENCE COUNSELOR Pulse 105 08/19/2024 11:34 AM RESIDENCE COUNSELOR Temperature - - Respiratory Rate - - Oxygen Saturation 96% 08/19/2024 11:34 AM RESIDENCE COUNSELOR Inhaled Oxygen Concentration - - Weight 89.8 kg (198 lb) 08/19/2024 11:34 AM RESIDENCE COUNSELOR Height 152.4 cm (5') 08/19/2024 11:34 AM RESIDENCE COUNSELOR Body Mass Index 38.67 08/19/2024 11:34 AM RESIDENCE COUNSELOR documented in this encounter Plan of Treatment Scheduled Orders Name Type Priority Associated Diagnoses Orde r Schedule CBC with auto differential Lab Routine Hypotension due to hypovolemia Expected: 08/19/2024, Expires: 08/19/2025 Basic metabolic panel Lab Routine Hypotension due to hypovolemia Expected: 08/19/2024, Expires: 08/19/2025 documented as of this encounter Visit Diagnoses Diagnosis Hypotension due to hypovolemia- Primary documented in this encounter Care Teams Power Distribution Engineer Relationship Specialty Start Date End Date Porsche Becker NP [address] [facility] [address] [place] [address] PCP - General Nurse Practitioner 08/19/24 Mookie Dubois MD Referring Physician Nephrology 02/20/22 Abigail Dougherty, RN [address] [facility] [address] [place] [address] Pharmacist 02/13/24 Jama Hoskins MD [address] [facility] [address] [place] [address] Consulting Physician Cardiology 02/20/24 documented as of this encounter
--- OUTSIDE RECORDS SUMMARY | 2024-08-19 12:37 | XMS_ITS | Referral Summary ---
Author Organization [facility] Address [address] [address] Care Team Providers Care Tongue And Groove Machine Feeder Name Role Phone Unavailable Primary Care Provider Unavailabl e Source Comments [facility],non-owned Affiliates and Associated Physician Practices is amultiple site organization consisting of ambulatory clinics and hospital sitesin [place], [place], [place] and [place]. This disclosure is being madepursuant to the Care Everywhere program and may not contain all information available regarding this patient. Last updated 18.[facility] Allergies Active Allergy Reactions Criticality Noted Date [...]
--- OUTSIDE RECORDS SUMMARY | 2024-08-19 12:37 | XMS_ITS | Referral Summary ---
Author Organization [place] [address] Address [address] [facility] [address] [place] [address] Care Team Providers Care Mica Miner Blasting Name Role Phone Mookie Dubois MD Unavailable [phone] Abigail Dougherty RN Unavailable [phone] Jama Hoskins MD Unavailable [phone] Porsche Becker NP Primary Care Provider [phone] Encounters Date Type Department Care Team Description 08/19/2024 11:30 AM PROPERTY MANAGER Office Visit [facility] Cardiology [address] [place] [address] [address] [place] [address] Lydia Lewis NP Hypotension due to hypovolemia (Primary Dx) 08/14/2024 Telephone [place] [address] [address] [place] [address] Jama Hoskins MD Hypotension 08/12/2024 Home Care Visit [address] [place] [address] Lillian Campuzano, PT CARE CONFERENCE 08/12/2024 10:00 AM PROPERTY MANAGER Home Care Visit [address] [place] [address] Zofia Cosby OT OT INITIAL EVALUATION 08/12/2024 12:45 PM PROPERTY MANAGER Home Care Visit [place] [address] [address] [place] [address] Dominga Head, POLICE JUDGE PT HOME VISIT 08/09/2024 Home Care Visit [address] [place] [address] Magui Friedman, RN HH NURSE MED RECON FOR THERAPY 08/07/2024 Plan of Care Documentation [place] [address] [address] [place] [address] 08/07/2024 8:30 AM PROPERTY MANAGER Home Care Visit [place] [address] [address] [place] [address] Lillian Campuzano, PT PT OASIS START OF CARE 08/06/2024 Telephone [facility] Home Care Services [address] [place] [address] Carson Huffman MA 08/05/2024 Telephone [facility] Home Care Services [address] [place] [address] Carson Huffman MA 08/04/2024 Telephone [facility] Cardiology [address] [place] [address] [place] [phone] Tanisha Winter NP 07/25/2024 6:50 PM PROPERTY MANAGER - 08/04/2024 3:37 PM PROPERTY MANAGER Hospital Encounter [facility] [address] [place] [address] Nga Marquez MD Physical deconditioning [R53.81] (Primary Dx) Discharge Disposition: Discharge to home, home health skilled care 08/03/2024 Travel 08/01/2024 Orders Only [facility] Medical [facility] Cardiology [address] [facility] [address] [place] [phone] Jia Beard NP 07/25/2024 Telephone [facility] Medical [facility] Cardiology [address] [place] [address] [place] [phone] Tanisha Winter NP 07/21/2024 6:22 PM PROPERTY MANAGER - 07/25/2024 6:46 PM PROPERTY MANAGER Hospital Encounter [facility] [address] [place] [address] Blake Nava MD Quaizar, Huzaifa, MD Paruchuri, Tharun, MD Shanker, Swaroop, MD Paroxysmal atrial fibrillation (CMS/HCC) (HCC) (Primary Dx) Discharge Disposition: Discharge to an Rehab facility 07/22/2024 Documentation [facility] [address] Mailstop [phone] [place] [address] YearKiera colvin, RUPESH 07/22/2024 Documentation [facility] [address] Mailstop [phone] [place] [address] Annalise Mays 07/22/2024 Telephone [facility] [address] Mailstop [phone] [place] [address] YearoutKiera RN 07/21/2024 Telephone [facility] [address] Mailstop [phone] [place] [address] Loli Moran 06/05/2024 Anticoagulation Visit [facility] Medical Group Cardiology [address] [facility] [address] [place] [phone] Bull Jaramillo RN Permanent atrial fibrillation (CMS/HCC) (HCC) (Primary Dx) 06/03/2024 Telephone [facility] Medical [facility] Cardiology [address] [facility] [address] [place] [phone] Jama Hoskins MD INR order 05/30/2024 2:15 PM PROPERTY MANAGER Office Visit [facility] Cardiology [address] [place] [address] Jama Hoskins MD Permanent atrial fibrillation (CMS/HCC) (HCC) (Primary Dx); Chronic anticoagulation from Last 3 Months Allergies Active Allergy [...] mouth 2 (two) times a day rx #[id number] Active eplerenone (INSPRA) 50 mg tablet Take [...] with chronic systolic congestive heart failure (CMS/HCC) ([facility]) Take 1 tablet (50 mg total) by mouth daily 30 tablet 11 022 2024 Discontinued(S top Taking at Discharge) metoprolol (LOPRESSOR) 100 mg tabletIndications:L ongstanding persistent atrial fibrillation (CMS/HCC) ([facility]) Take 1 tablet by mouth twice daily [...] materials from doctor or pharmacy Sometimes 08/07/2024 [facility] Utilities Answer Date Recorded In the past 12 months has e [employer], oil, or water Apptentive threatened to shut off services in your [...] often do you attend chur ch or lutheran services? Patient declined 07/26/2024 Do you belong [...] Recorded Patient Health Questionnaire-2 Score 1 08/04/2024 [facility] - Occupational [...] money to buy more. Never true 07/26/19 Within the past 12 months, t he [...] any time in the past 12 m [facility], were you homeless or living in a [place] health care facility (including now)? No 07/26/2024 Personal Safety Answer Date Recorded Have you ever been in or are you currently in a harmful physical or emotional relationship or is someone making you feel afraid or unsafe? Denies 07/25/2024 Comments Unknown Sex and Gender Information Value Date Recorded Sex Assigned at Not on file 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 PROPERTY MANAGER Gender Identity Not on file Sexual Orientation Not on file Last Filed Vital Signs Vital Sign Reading Time Taken Comments Blood Pressure 70/40 08/19/2024 11:34 AM PROPERTY MANAGER Pulse 105 08/19/2024 11:34 AM PROPERTY MANAGER Temperature 36.8 ??C (98.3 ??F) 08/12/2024 1:13 PM CS T Respiratory Rate 18 08/12/2024 1:13 PM PROPERTY MANAGER Oxygen Saturation 96% 08/19/2024 11:34 AM PROPERTY MANAGER Inhaled Oxygen Concentration - - Weight 89.8 kg (198 lb) 08/19/2024 11:34 AM PROPERTY MANAGER Height 152.4 cm (5') 08/19/2024 11:34 AM PROPERTY MANAGER Body Mass Index 38.67 08/19/2024 11:34 AM PROPERTY MANAGER Plan of Treatment Not on file Medical Devices Implanted Type Area Bottom Saw Operator Device Identifier Shelf Expiration Date Model / Serial / Lot Dental Implant Other - see comments Description:Upper [employer] [place] 15fr 62cm 2 Cuff Radiopaque Peritoneal Curl Catheter [id number] - [id number] Implanted:Qty: 1 on 04/03/2022 by Sulaiman Hi MD at [facility] Left: Abdomen [employer] 10/16/2026 [id number] / / [id number] Procedures Procedure Name Priority Date/Time Associated Diagnosis Comments DIFFERENTIAL AUTO Routine 08/02/2024 5:4 5 AM PROPERTY MANAGER CBC WITH AUTO DIFFERENTIAL Routine 08/02/2024 5:45 AM PROPERTY MANAGER EGFR Routine 08/01/2024 6:03 AM PROPERTY MANAGER BASIC METABOLIC PANEL Routine 08/01/2024 6:03 AM PROPERTY MANAGER EGFR Routine 07/31/2024 8:40 AM PROPERTY MANAGER BASIC METABOLIC PANEL Routine 07/31/2024 8:40 AM PROPERTY MANAGER EGFR Routine 07/28/2024 4:32 AM PROPERTY MANAGER DIFFERENTIAL AUTO Routine 07/28/2024 4:3 2 AM PROPERTY MANAGER PHOSPHORUS Routine 07/28/2024 4:32 AM PROPERTY MANAGER CBC WITH AUTO DIFFERENTIAL Routine 07/28/2024 4:32 AM PROPERTY MANAGER COMPREHENSIVE METABOLIC PANEL Routine 07/28/2024 4:32 AM PROPERTY MANAGER XR KUB IP Routine 07/27/2024 10:38 AM PROPERTY MANAGER EGFR Routine 07/26/2024 11:38 AM PROPERTY MANAGER DIFFERENTIAL AUTO Routine 07/26/2024 11: 38 AM PROPERTY MANAGER CBC WITH AUTO DIFFERENTIAL Routine 07/26/2024 11:38 AM PROPERTY MANAGER COMPREHENSIVE METABOLIC PANEL Routine 07/26/2024 11:38 AM PROPERTY MANAGER CONTINUOUS AMBULATORY PERITONEAL DIALYSIS (CAPD) Routine 07/25/2024 3:08 PM PROPERTY MANAGER MANUAL DIFFERENTIAL Timed 07/25/2024 8 :10 AM PROPERTY MANAGER CBC WITH AUTO DIFFERENTIAL Timed 07/25/2024 8:10 AM PROPERTY MANAGER TYPE AND SCREEN Timed 07/25/2024 8:10 AM PROPERTY MANAGER EGFR Routine 07/24/2024 1:46 AM PROPERTY MANAGER CBC WITHOUT DIFFERENTIAL Routine 07/24/2024 1:46 AM PROPERTY MANAGER PHOSPHORUS Routine 07/24/2024 1:46 AM PROPERTY MANAGER MAGNESIUM Routine 07/24/2024 1:46 AM PROPERTY MANAGER BASIC METABOLIC PANEL Routine 07/24/2024 1:46 AM PROPERTY MANAGER EGFR Routine 07/23/2024 2:02 AM PROPERTY MANAGER PROTIME-INR Routine 07/23/2024 2:02 AM PROPERTY MANAGER CBC WITHOUT DIFFERENTIAL Routine 07/23/2024 2:02 AM PROPERTY MANAGER PHOSPHORUS Routine 07/23/2024 2:02 AM PROPERTY MANAGER MAGNESIUM Routine 07/23/2024 2:02 AM PROPERTY MANAGER BASIC METABOLIC PANEL Routine 07/23/2024 2:02 AM PROPERTY MANAGER CRITICAL CARE Routine 07/22/2024 8:22 AM PROPERTY MANAGER Paroxysmal atrial fibrillation (CMS/HCC) (HCC) TRANSTHORACIC ECHO (TTE) COMPLETE W DOPPLER/CF W CONTRAST STAT 07/22/2024 7:00 AM PROPERTY MANAGER EGFR Routine 07/22/2024 5:41 AM PROPERTY MANAGER CBC WITHOUT DIFFERENTIAL Timed 07/22/2024 5:41 AM PROPERTY MANAGER PHOSPHORUS Routine 07/22/2024 5:41 AM PROPERTY MANAGER MAGNESIUM Routine 07/22/2024 5:41 AM PROPERTY MANAGER BASIC METABOLIC PANEL Routine 07/22/2024 5:41 AM PROPERTY MANAGER CELL DIFFERENTIAL, BODY FLUID Routine 07/22/2024 3:17 AM PROPERTY MANAGER CELL COUNT W/REFLEX DIFFERENTIAL, BODY FLUID Routine 07/22/2024 3:17 AM PROPERTY MANAGER URINALYSIS, MICROSCOPIC ONLY STAT 07/22/2024 1:57 AM PROPERTY MANAGER URINE CULTURE STAT 07/22/2024 1:57 AM PROPERTY MANAGER URINALYSIS AND REFLEX TO MICROSCOPIC AND CULTURE STAT 07/22/2024 1:57 AM PROPERTY MANAGER ECG 12-LEAD STAT 07/22/2024 1:33 AM PROPERTY MANAGER CBC WITHOUT DIFFERENTIAL Timed 07/22/2024 12:51 AM PROPERTY MANAGER CONTINUOUS AMBULATORY PERITONEAL DIALYSIS (CAPD) Routine 07/22/2024 12:31 AM PROPERTY MANAGER CONTINUOUS AMBULATORY PERITONEAL DIALYSIS (CAPD) Routine 07/21/2024 11:45 PM PROPERTY MANAGER BLOOD CULTURE STAT 07/21/2024 11:44 PM PROPERTY MANAGER BLOOD CULTURE STAT 07/21/2024 11:44 PM PROPERTY MANAGER CONTINUOUS AMBULATORY PERITONEAL DIALYSIS (CAPD) Routine 07/21/2024 11:43 PM PROPERTY MANAGER CTA ABDOMEN PELVIS W WO CONTRAST ED Urgent/IP Urgent 07/21/2024 10:13 PM PROPERTY MANAGER B CHECK SAMPLE STAT 07/21/2024 8:16 PM PROPERTY MANAGER CRITICAL CARE Routine 07/21/2024 7:48 PM PROPERTY MANAGER BETA-HYDROXYBUTYRATE Add-On 07/21/2024 6:55 PM PROPERTY MANAGER T4, FREE STAT 07/21/2024 6:55 PM PROPERTY MANAGER EGFR STAT 07/21/2024 6:55 PM PROPERTY MANAGER THYROID FUNCTION CASCADE STAT 07/21/2024 6:55 PM PROPERTY MANAGER PROTIME-INR STAT 07/21/2024 6:55 PM PROPERTY MANAGER APTT STAT 07/21/2024 6:55 PM PROPERTY MANAGER TYPE AND SCREEN Timed 07/21/2024 6:55 PM PROPERTY MANAGER CBC WITHOUT DIFFERENTIAL STAT 07/21/2024 6:55 PM PROPERTY MANAGER LACTATE STAT 07/21/2024 6:55 PM PROPERTY MANAGER CALCIUM,IONIZED, WHOLE BLOOD STAT 07/21/2024 6:55 PM PROPERTY MANAGER PHOSPHORUS STAT 07/21/2024 6:55 PM PROPERTY MANAGER HEPATIC FUNCTION PANEL STAT 07/21/2024 6:55 PM PROPERTY MANAGER BASIC METABOLIC PANEL STAT 07/21/2024 6:55 PM PROPERTY MANAGER MAGNESIUM STAT 07/21/2024 6:55 PM PROPERTY MANAGER INFECTION PREVENTION MRSA ONLY (STAPHYLOCOCCUS AUREUS) PCR Routine 07/21/2024 6:55 PM PROPERTY MANAGER XR CHEST 1 VIEW ED Urgent/IP Urgent 07/21/2024 6:42 PM PROPERTY MANAGER POCT GLUCOSE DEVICE Routine 07/21/2024 6 :33 PM PROPERTY MANAGER CARDIOLOGY DOCUMENT SCAN Routine 07/15/2024 10:51 AM PROPERTY MANAGER PROTIME-INR Routine 06/04/2024 12:25 PM PROPERTY MANAGER Permanent atrial fibrillation (CMS/HCC) (HCC) from Last 3 Months Results * (ABNORMAL) Differential, auto (08/02/2024 5:45 AM PROPERTY MANAGER) Neutrophil abs 8.3(H) 1.5 - 6.5 K/cumm Imm gran abs 0.7(H) 0.0 - 0.1 K/cumm [facility] Lymphocyte abs 1.1 0.8 - 3.3 K/cumm [facility] Monocyte abs 1.9(H) 0.2 - 0.8 K/cumm [facility] Eosinophil abs 0.4 0.0 - 0.5 K/cumm [facility] Basophil abs 0.1 0.0 - 0.1 K/cumm [facility] Neutrophil pct 67.1 % [facility] Comment: Interpretive Data Percent cell count reference ranges are not reported, since discordance with absolute values may lead to misinterpretation of CBC data. Current Interpretive Data was last revised on 2017. Imm gran pct 5.3 % [facility] Comment: Interpretive Data Percent cell count reference ranges are not reported, since discordance with absolute values may lead to misinterpretation of CBC data. Current Interpretive Data was last revised on 2017. Lymphocyte pct 8.5 % [facility] Comment: Interpretive Data Percent cell count reference ranges are not reported, since discordance with absolute values may lead to misinterpretation of CBC data. Current Interpretive Data was last revised on 2017. Monocyte pct 15.6 % [facility] Comment: Interpretive Data Percent cell count reference ranges are not reported, since discordance with absolute values may lead to misinterpretation of CBC data. Current Interpretive Data was last revised on 2017. Eosinophil pct 2.8 % [facility] Comment: Interpretive Data Percent cell count reference ranges are not reported, since discordance with absolute values may lead to misinterpretation of CBC data. Current Interpretive Data was last revised on 2017. Basophil pct 0.7 % [facility] Comment: Interpretive Data Percent cell count reference ranges are not reported, since discordance with absolute values may lead to misinterpretation of CBC data. Current Interpretive Data was last revised on 2017. Blood 08/02/2024 5:45 AM PROPERTY MANAGER 08/02/2024 6:22 AM PROPERTY MANAGER us Padmini Mason NP LAB BLOOD ORDERABLES Fi nal Result [place] [address] [address] Department [place] [address] * (ABNORMAL) CBC with auto differential (08/02/2024 5:45 AM PROPERTY MANAGER) WBC 12.4(H) 3.8 - 9.9 K/cumm Hgb 7.5(L) 11.9 - 15.5 g/dL [facility] Hct 28.7(L) 35.6 - 45.5 % [facility] Plt 402(H) 150 - 400 K/cumm [facility] MPV 11.2 9.1 - 12.3 fL [facility] RBC 2.53(L) 3.90 - 5.20 M/cumm [facility] MCV 113.4(H) 81.3 - 96.4 fL [facility] MCH 29.6 27.1 - 33.3 pg [facility] MCHC 26.1(L) 32.3 - 35.7 g/dL [facility] RDW CV 20.7(H) 11.1 - 14.9 % [facility] RDW SD 85.8(H) 35.7 - 48.1 fL [facility] NRBC abs 0.08(H) 0.00 - 0.01 K/cumm [facility] Blood 08/02/2024 5:45 AM PROPERTY MANAGER 08/02/2024 6:22 AM PROPERTY MANAGER us Padmini Mason MAINTENANCE SHOP TECHNICIAN LAB BLOOD ORDERABLES [facility] [address] [place] [address] * (ABNORMAL) eGFR (08/01/2024 6:03 AM PROPERTY MANAGER) Pathologist [facility] eGFR 4(L) >=60 mL/min/1. 73 m2 Comment: [...] last reviewed 2021. Blood 08/01/2024 6:03 AM PROPERTY MANAGER 08/01/2024 6:37 AM PROPERTY MANAGER us Tanisha Winter MAINTENANCE SHOP TECHNICIAN LAB BLOOD ORDERABLES Final Resul t [facility] [id number] Department of Laboratories [place], [place] [id number] * (ABNORMAL) Basic metabolic panel (08/01/2024 6:03 AM PROPERTY MANAGER) Sodium 136 135 - 145 mmol/L Potassium, pl 3.9 3.3 - 4.9 mmol/L [facility] Chloride 95(L) 97 - 110 mmol/L [facility] CO2 22 22 - 32 mmol/L [facility] Anion gap 19(H) 2 - 15 mmol/L [facility] BUN 66(H) 6 - 25 mg/dL [facility] Creatinine 9.73(H) 0.60 - 1.10 mg/dL [facility] Glucose 90 70 - 199 mg/dL [facility] Comment: Interpretive Data Fasting glucose [...] classification and Diagnosis of Diabetes Diabetes Care 2022; 46: S19-S40. Current interpretive data was last revised 2022. Calcium 9.1 8.5 - 10.3 mg/dL [facility] Blood 08/01/2024 6:03 AM PROPERTY MANAGER 08/01/2024 6:37 AM PROPERTY MANAGER Tanisha Moy MAINTENANCE SHOP TECHNICIAN LAB BLOOD ORDERABLES Final Resul t [facility] [address] [place] [address] * (ABNORMAL) eGFR (07/31/2024 8:40 AM PROPERTY MANAGER) eGFR 4(L) >=60 mL/min/1. 73 m2 Comment: [...] last reviewed 2021. Blood 07/31/2024 8:40 AM PROPERTY MANAGER 07/31/2024 9:42 AM PROPERTY MANAGER Tanisha Moy MAINTENANCE SHOP TECHNICIAN LAB BLOOD ORDERABLES Final Resul t Performing Organization Address [facility]/ZIP Co de Phone Number [facility] [place] [address] [place] [address] * (ABNORMAL) Basic metabolic panel (07/31/2024 8:40 AM PROPERTY MANAGER) Sodium 139 135 - 145 mmol/L Potassium, pl 3.3 3.3 - 4.9 mmol/L [facility] Chloride 95(L) 97 - 110 mmol/L [facility] CO2 22 22 - 32 mmol/L [facility] Anion gap 22(H) 2 - 15 mmol/L [facility] BUN 62(H) 6 - 25 mg/dL [facility] Creatinine 9.53(H) 0.60 - 1.10 mg/dL [facility] Glucose 85 70 - 199 mg/dL [facility] Comment: Interpretive Data Fasting glucose >/= [...] 2022. Calcium 9.4 8.5 - 10.3 mg/dL [facility] Blood 07/31/2024 8:40 AM PROPERTY MANAGER 07/31/2024 9:42 AM PROPERTY MANAGER Tanisha Moy MAINTENANCE SHOP TECHNICIAN LAB BLOOD ORDERABLES Final Resul t Performing Organization Address City/[facility]/ZIP Co de Phone Number [facility] [place] [address] [address] Department of Compliance [address] [place] [address] * (ABNORMAL) eGFR (07/28/2024 4:32 AM PROPERTY MANAGER) eGFR 5(L) >=60 mL/min/1. 73 m2 Comment: [...] last reviewed 2021. Blood 07/28/2024 4:32 AM PROPERTY MANAGER 07/28/2024 4:57 AM PROPERTY MANAGER us Nga Dumont MD LAB BLOOD ORDERABL ES Final Result Performing Organization Address City/State/[facility] Co de Phone Number [facility] [address] [place] [address] * (ABNORMAL) Differential, auto (07/28/2024 4:32 AM PROPERTY MANAGER) Neutrophil abs 7.5(H) 1.5 - 6.5 K/cumm Imm gran abs 0.7(H) 0.0 - 0.1 K/cumm [facility] Lymphocyte abs 1.0 0.8 - 3.3 K/cumm [facility] Monocyte abs 1.5(H) 0.2 - 0.8 K/cumm [facility] Eosinophil abs 0.2 0.0 - 0.5 K/cumm [facility] Basophil abs 0.1 0.0 - 0.1 K/cumm [facility] Neutrophil pct 68.9 % [facility] Comment: Interpretive Data Percent cell count reference ranges are not reported, since discordance with absolute values may lead to misinterpretation of CBC data. Current Interpretive Data was last revised on 2017. Imm gran pct 5.9 % [facility] Comment: Interpretive Data Percent cell count reference ranges are not reported, since discordance with absolute values may lead to misinterpretation of CBC data. Current Interpretive Data was last revised on 2017. Lymphocyte pct 9.0 % [facility] Comment: Interpretive Data Percent cell count reference ranges are not reported, since discordance with absolute values may lead to misinterpretation of CBC data. Current Interpretive Data was last revised on 2017. Monocyte pct 13.5 % [facility] Comment: Interpretive Data Percent cell count reference ranges are not reported, since discordance with absolute values may lead to misinterpretation of CBC data. Current Interpretive Data was last revised on 2017. Eosinophil pct 1.6 % [facility] Comment: Interpretive Data Percent cell count reference ranges are not reported, since discordance with absolute values may lead to misinterpretation of CBC data. Current Interpretive Data was last revised on 2017. Basophil pct 1.1 % [facility] Comment: Interpretive Data Percent cell count reference ranges are not reported, since discordance with absolute values may lead to misinterpretation of CBC data. Current Interpretive Data was last revised on 2017. Blood 07/28/2024 4:32 AM PROPERTY MANAGER 07/28/2024 4:57 AM PROPERTY MANAGER us Nga Dumont MD LAB BLOOD ORDERABL ES Final Result [facility] [address] [address] [place] [address] * (ABNORMAL) CBC with auto differential (07/28/2024 4:32 AM PROPERTY MANAGER) WBC 11.0(H) 3.8 - 9.9 K/cumm Hgb 9.5(L) 11.9 - 15.5 g/dL [facility] Hct 32.8(L) 35.6 - 45.5 % [facility] Plt 353 150 - 400 K/cumm [facility] MPV 11.6 9.1 - 12.3 fL [facility] RBC 3.33(L) 3.90 - 5.20 M/cumm [facility] MCV 98.5(H) 81.3 - 96.4 fL [facility] MCH 28.5 27.1 - 33.3 pg [facility] MCHC 29.0(L) 32.3 - 35.7 g/dL [facility] RDW CV Not Measured 11.1 - 14.9 % [facility] RDW SD Not Measured 35.7 - 48.1 fL [facility] NRBC abs 0.12(H) 0.00 - 0.01 K/cumm [facility] Blood 07/28/2024 4:32 AM PROPERTY MANAGER 07/28/2024 4:57 AM PROPERTY MANAGER us Nga Dumont MD LAB BLOOD ORDERABL ES Final Result Performing Organization Address City/[facility]/ZIP Co de Phone Number [facility] [address] Department Compliance [address] [place], [place] [id number] * Phosphorus (07/28/2024 4:32 AM PROPERTY MANAGER) Pathologist [facility] Phosphorus, pl 4.4 2.3 - 4.5 mg/dL Blood 07/28/2024 4:32 AM PROPERTY MANAGER 07/28/2024 4:57 AM PROPERTY MANAGER us Waqas Garcia MD LAB BLOOD ORDERABLES Final Resu lt Performing Organization Address City/[facility]/ZIP Co de Phone Number [facility] [address] [address] Department of Compliance [address] [place], [place] [id number] * (ABNORMAL) Comprehensive metabolic panel (07/28/2024 4:32 AM PROPERTY MANAGER) Sodium 140 135 - 145 mmol/L Potassium, pl 3.1(L) 3.3 - 4.9 mmol/L [facility] Chloride 96(L) 97 - 110 mmol/L [facility] CO2 25 22 - 32 mmol/L [facility] Anion gap 19(H) 2 - 15 mmol/L [facility] BUN 47(H) 6 - 25 mg/dL [facility] Creatinine 9.08(H) 0.60 - 1.10 mg/dL [facility] Glucose 103 70 - 199 mg/dL [facility] Comment: [...] Units/L [facility] Blood 07/28/2024 4:32 AM PROPERTY MANAGER 07/28/2024 4:57 AM PROPERTY MANAGER us Nga Dumont MD LAB BLOOD ORDERABL ES Final Result [facility] [address] [address] Department [place] [address] * XR Kub (07/27/2024 10:38 AM PROPERTY MANAGER) Anatomical Region Laterality Modality Body, Abdomen N/A Computed Radiogr aphy 07/27/2024 10:4 8 AM PROPERTY MANAGER Impressions 07/27/2024 10:48 AM PROPERTY MANAGER Findings/impression: Limited examination given technique. Nonobstructive bowel gas pattern. ??Right double-J ureteral stent appears appropriately positioned. ??Percutaneous catheter terminating in the pelvis likely represents peritoneal dialysis catheter. ??No acute osseous abnormality. ??Lung bases are unremarkable. Electronically signed by: Peter Porter II, D.O. Narrative 07/27/2024 10:48 AM PROPERTY MANAGER EXAMINATION: XR KUB DATE: 07/27/2024 10:25 AM INDICATION: Peritoneal dialysis catheter. COMPARISON: 07/21/2024. Procedure Note Peter Porter II, - 07/27/2024 EXAMINATION: XR KUB DATE: 07/27/2024 10:25 AM INDICATION: Peritoneal dialysis catheter. COMPARISON: 07/21/2024. IMPRESSION: Findings/impression: Limited examination given technique. Nonobstructive bowel gas pattern. Right double-J ureteral stent appears appropriately positioned. Percutaneous catheter terminating in the pelvis likely represents peritoneal dialysis catheter. No acute osseous abnormality. Lung bases are unremarkable. Electronically signed by: Peter Porter II, D.O. Waqas Garcia MD IMG XR PROCEDURES Final Result * (ABNORMAL) eGFR (07/26/2024 11:38 AM PROPERTY MANAGER) eGFR 4(L) >=60 mL/min/1. 73 m2 Comment: [...] reviewed 2021. Blood 07/26/2024 11:3 8 AM PROPERTY MANAGER 07/26/2024 12:44 PM PROPERTY MANAGER us Nga Dumont MD LAB BLOOD ORDERABL ES Final Result [facility] [address] [place] [address] * (ABNORMAL) Differential, auto (07/26/2024 11:38 AM PROPERTY MANAGER) Neutrophil abs 11.4(H) 1.5 - 6.5 K/cumm Imm gran abs 1.1(H) 0.0 - 0.1 K/cumm [facility] Lymphocyte abs 0.7(L) 0.8 - 3.3 K/cumm [facility] Monocyte abs 1.6(H) 0.2 - 0.8 K/cumm [facility] Eosinophil abs 0.2 0.0 - 0.5 K/cumm [facility] Basophil abs 0.1 0.0 - 0.1 K/cumm [facility] Neutrophil pct 75.7 % [facility] Comment: Interpretive Data Percent cell count reference ranges are not reported, since discordance with absolute values may lead to misinterpretation of CBC data. Current Interpretive Data was last revised on 2017. Imm gran pct 6.9 % [facility] Comment: Interpretive Data Percent cell count reference ranges are not reported, since discordance with absolute values may lead to misinterpretation of CBC data. Current Interpretive Data was last revised on 2017. Lymphocyte pct 4.9 % [facility] Comment: Interpretive Data Percent cell count reference ranges are not reported, since discordance with absolute values may lead to misinterpretation of CBC data. Current Interpretive Data was last revised on 2017. Monocyte pct 10.7 % [facility] Comment: Interpretive Data Percent cell count reference ranges are not reported, since discordance with absolute values may lead to misinterpretation of CBC data. Current Interpretive Data was last revised on 2017. Eosinophil pct 1.1 % [facility] Comment: Interpretive Data Percent cell count reference ranges are not reported, since discordance with absolute values may lead to misinterpretation of CBC data. Current Interpretive Data was last revised on 2017. Basophil pct 0.7 % [facility] Comment: Interpretive Data Percent cell count reference ranges are not reported, since discordance with absolute values may lead to misinterpretation of CBC data. Current Interpretive Data was last revised on 2017. Blood 07/26/2024 11:3 8 AM PROPERTY MANAGER 07/26/2024 12:44 PM PROPERTY MANAGER Nga Dumont MD LAB BLOOD ORDERABL ES Final Result [facility] [id number] [place] [address] * (ABNORMAL) CBC with auto differential (07/26/2024 11:38 AM PROPERTY MANAGER) WBC 15.1(H) 3.8 - 9.9 K/cumm Hgb 10.2(L) 11.9 - 15.5 g/dL [facility] Hct 34.9(L) 35.6 - 45.5 % [facility] Plt 304 150 - 400 K/cumm [facility] MPV 12.9(H) 9.1 - 12.3 fL [facility] RBC 3.54(L) 3.90 - 5.20 M/cumm [facility] MCV 98.6(H) 81.3 - 96.4 fL [facility] MCH 28.8 27.1 - 33.3 pg [facility] MCHC 29.2(L) 32.3 - 35.7 g/dL [facility] RDW CV 27.0(H) 11.1 - 14.9 % [facility] RDW SD 92.1(H) 35.7 - 48.1 fL [facility] NRBC abs 0.21(H) 0.00 - 0.01 K/cumm [facility] Blood 07/26/2024 11:3 8 AM PROPERTY MANAGER 07/26/2024 12:44 PM PROPERTY MANAGER us Nga Dumont MD LAB [place]LOOD [place] [address] [address] [place] [address] * (ABNORMAL) Comprehensive metabolic panel (07/26/2024 11:38 AM PROPERTY MANAGER) Sodium 138 135 - 145 mmol/L Potassium, [...] [facility] Blood 07/26/2024 11:3 8 AM PROPERTY MANAGER 07/26/2024 12:44 PM PROPERTY MANAGER us Nga Dumont MD LAB BLOOD ORDERABL ES Final Result Performing Organization Address City/[facility]/ZIP Co de Phone Number [facility] [address] [place] [address] * (ABNORMAL) CBC with auto differential (07/25/2024 8:10 AM PROPERTY MANAGER) WBC 18.6(H) 3.8 - 9.9 K/cumm Hgb 9.8(L) 11.9 - 15.5 g/dL [facility] Hct 32.5(L) 35.6 - 45.5 % [facility] Plt 276 150 - 400 K/cumm [facility] MPV 12.7(H) 9.1 - 12.3 fL [facility] RBC 3.37(L) 3.90 - 5.20 M/cumm [facility] MCV 96.4 81.3 - 96.4 fL [facility] MCH 29.1 27.1 - 33.3 pg [facility] MCHC 30.2(L) 32.3 - 35.7 g/dL [facility] RDW CV 25.7(H) 11.1 - 14.9 % [facility] RDW SD 85.3(H) 35.7 - 48.1 fL [facility] NRBC abs 0.23(H) 0.00 - 0.01 K/cumm [facility] Blood 07/25/2024 8:10 AM PROPERTY MANAGER 07/25/2024 8:32 AM PROPERTY MANAGER us Sudheer Escobar MD LAB BLOOD ORDERABLES Edited R esult - Final Performing Organization Address City/[facility]/ZIP Co de Phone Number [facility] [address] Department of Compliance [address] [place] [address] * (ABNORMAL) Manual Differential (07/25/2024 8:10 AM PROPERTY MANAGER) Differential Manual Cells Counted 100 [facility] Neutrophil abs 16.6(H) 1.5 - 6.5 K/cumm [facility] Lymphocyte abs 0.6(L) 0.8 - 3.3 K/cumm [facility] Monocyte abs 1.5(H) 0.2 - 0.8 K/cumm [facility] Neutrophil pct 89.0 % [facility] Comment: Interpretive Data Percent cell count reference ranges are not reported, since discordance with absolute values may lead to misinterpretation of CBC data. Current Interpretive Data was last revised on 2017. Lymphocyte pct 3.0 % [facility] Comment: Interpretive Data Percent cell count reference ranges are not reported, since discordance with absolute values may lead to misinterpretation of CBC data. Current Interpretive Data was last revised on 2017. Monocyte pct 8.0 % [facility] Comment: Interpretive Data Percent cell count reference ranges are not reported, since discordance with absolute values may lead to misinterpretation of CBC data. Current Interpretive Data was last revised on 2017. RBC morphology Consistent with RBC Indicies [facility] Platelet estimate #[id number] [facility] Blood 07/25/2024 8:10 AM PROPERTY MANAGER 07/25/2024 8:32 AM PROPERTY MANAGER Sudheer Escobar MD LAB BLOOD ORDERABLES Final Re sult [facility] [address] Department of Laboratories [place], [place] [id number] * Type and screen (07/25/2024 8:10 AM PROPERTY MANAGER) ABO Rh B Positive Arianna, indirect Negative [facility] Blood 07/25/2024 8:10 AM PROPERTY MANAGER 07/25/2024 8:36 AM PROPERTY MANAGER Narrative [facility] - 07/25/2024 9:19 AM PROPERTY MANAGER Has the patient had Daratumumab or Isatuximab in the past 6 months?->Unknown Marilyn Martinez NP LAB BLOOD BANK TANYA T ORDERABLES Final Result Performing Organization Address [facility] Co de Phone Number [facility] [address] [place] [address] * (ABNORMAL) eGFR (07/24/2024 1:46 AM PROPERTY MANAGER) eGFR 4(L) >=60 mL/min/1. 73 m2 Comment: [...] last reviewed 2021. Blood 07/24/2024 1:46 AM PROPERTY MANAGER 07/24/2024 2:13 AM PROPERTY MANAGER us Marilyn Martinez NP LAB BLOOD ORDERABL ES Final Result Performing Organization Address City/[facility] Co de Phone Number [facility] [address] [place] [address] * (ABNORMAL) CBC without differential (07/24/2024 1:46 AM PROPERTY MANAGER) Pathologist [facility] WBC 18.7(H) 3.8 - 9.9 K/cumm Hgb 9.5(L) 11.9 - 15.5 g/dL [facility] Hct 30.0(L) 35.6 - 45.5 % [facility] Plt 234 150 - 400 K/cumm [facility] MPV 12.1 9.1 - 12.3 fL [facility] RBC 3.24(L) 3.90 - 5.20 M/cumm [facility] CH MCV 92.6 81.3 - 96.4 fL [facility] MCH 29.3 27.1 - 33.3 pg [facility] MCHC 31.7(L) 32.3 - 35.7 g/dL [facility] RDW CV 23.4(H) 11.1 - 14.9 % [facility] RDW SD 74.1(H) 35.7 - 48.1 fL [facility] NRBC abs 0.54(H) 0.00 - 0.01 K/cumm [facility] Blood 07/24/2024 1:46 AM PROPERTY MANAGER 07/24/2024 2:09 AM PROPERTY MANAGER Marilyn Martinez NP LAB BLOOD ORDERABL ES Final Result Performing Organization Address City/[facility] Co de Phone Number [facility] [address] [facility] Compliance [address] [place] [address] * Phosphorus (07/24/2024 1:46 AM PROPERTY MANAGER) [facility] Phosphorus, pl 3.4 2.3 - 4.5 mg/dL Blood 07/24/2024 1:46 AM PROPERTY MANAGER 07/24/2024 2:13 AM PROPERTY MANAGER Marilyn Martinez NP LAB BLOOD ORDERABL ES Final Result Performing Organization Address [facility] Co de Phone Number [facility] [address] Department of Compliance [address] [place] [address] * Magnesium (07/24/2024 1:46 AM PROPERTY MANAGER) Magnesium 2.5 1.4 - 2.5 mg/dL Blood 07/24/2024 1:46 AM PROPERTY MANAGER 07/24/2024 2:13 AM PROPERTY MANAGER Marilyn Lyric Martinez NP LAB BLOOD ORDERABL ES Final Result Performing Organization Address City/[facility] Co de Phone Number [facility] [address] [place] [address] * (ABNORMAL) Basic metabolic panel (07/24/2024 1:46 AM PROPERTY MANAGER) Pathologist [facility] Sodium 135 135 - 145 mmol/L Potassium, pl 3.5 3.3 - 4.9 mmol/L [facility] Chloride 91(L) 97 - 110 mmol/L [facility] CO2 21(L) 22 - 32 mmol/L [facility] Anion gap 23(H) 2 - 15 mmol/L [facility] BUN 53(H) 6 - 25 mg/dL [facility] Creatinine 9.10(H) 0.60 - 1.10 mg/dL [facility] Glucose 150 70 - 199 mg/dL [facility] Comment: Interpretive Data Fasting glucose >/= 126 [...] 2022. Calcium 9.4 8.5 - 10.3 mg/dL [facility] Blood 07/24/2024 1:46 AM PROPERTY MANAGER 07/24/2024 2:13 AM PROPERTY MANAGER Marilyn Martinez NP LAB BLOOD ORDERABL ES Final Result Performing Organization Address [facility] Co de Phone Number [facility] [address] Department of Laboratories [place] [phone] * (ABNORMAL) eGFR (07/23/2024 2:02 AM PROPERTY MANAGER) eGFR 5(L) >=60 mL/min/1. 73 m2 Comment: [...] last reviewed 2021. Blood 07/23/2024 2:02 AM PROPERTY MANAGER 07/23/2024 2:16 AM PROPERTY MANAGER us Tanika KNAPP LAB BLOOD ORDERABLES F inal Result [facility] [address] [place] [address] * (ABNORMAL) Protime-INR (07/23/2024 2:02 AM PROPERTY MANAGER) PT 19.3(H) 9.7 - 13.0 sec INR 1.77(H) 0.90 - 1.20 [facility] Comment: Interpretive data Oral anticoagulant therapeutic ranges: Venous thromboembolism prophylaxis or treatment: 2.0-3.0 CARDIOLOGY Standard range: 2.0-3.0 High-intensity range: 2.5-3.5 Refer to indication-specific guidelines for appropriate target ranges for prosthetic heart valve replacement. Current interpretive data was last revised on 2019. Blood 07/23/2024 2:02 AM PROPERTY MANAGER 07/23/2024 2:14 AM PROPERTY MANAGER Marilyn Martinez NP LAB BLOOD ORDERABL ES Final Result [facility] [address] [place] [address] * (ABNORMAL) CBC without differential (07/23/2024 2:02 AM PROPERTY MANAGER) WBC 18.3(H) 3.8 - 9.9 K/cumm Hgb 9.2(L) 11.9 - 15.5 g/dL [facility] Hct 26.7(L) 35.6 - 45.5 % [facility] Plt 236 150 - 400 K/cumm [facility] MPV 12.6(H) 9.1 - 12.3 fL [facility] RBC 3.09(L) 3.90 - 5.20 M/cumm [facility] MCV 86.4 81.3 - 96.4 fL [facility] MCH 29.8 27.1 - 33.3 pg [facility] MCHC 34.5 32.3 - 35.7 g/dL [facility] RDW CV 19.0(H) 11.1 - 14.9 % [facility] RDW SD 54.2(H) 35.7 - 48.1 fL [facility] NRBC abs 0.39(H) 0.00 - 0.01 K/cumm [facility] Blood 07/23/2024 2:02 AM PROPERTY MANAGER 07/23/2024 2:14 AM PROPERTY MANAGER Marilyn Martinez NP LAB BLOOD ORDERABL ES Final Result Performing Organization Address [facility] Co de Phone Number [facility] [address] [facility] Compliance [address] [place] [address] * Phosphorus (07/23/2024 2:02 AM PROPERTY MANAGER) Pathologist [facility] Phosphorus, pl 3.0 2.3 - 4.5 mg/dL Blood 07/23/2024 2:02 AM PROPERTY MANAGER 07/23/2024 2:16 AM PROPERTY MANAGER Marilyn Martinez NP LAB BLOOD ORDERABL ES Final Result Performing Organization Address [facility] de Phone Number [facility] [address] [address] [facility] Compliance [address] [place] [address] * Magnesium (07/23/2024 2:02 AM PROPERTY MANAGER) [facility] Magnesium 2.4 1.4 - 2.5 mg/dL Blood 07/23/2024 2:02 AM PROPERTY MANAGER 07/23/2024 2:16 AM PROPERTY MANAGER Marilyn Martinez NP LAB BLOOD ORDERABL ES Final Result Performing Organization Address [facility] de Phone Number [facility] [address] [address] [facility] Compliance [address] [place] [address] * (ABNORMAL) Basic metabolic panel (07/23/2024 2:02 AM PROPERTY MANAGER) Pathologist [facility] Sodium 135 135 - 145 mmol/L Potassium, pl 3.7 3.3 - 4.9 mmol/L [facility] Chloride 92(L) 97 - 110 mmol/L [facility] CO2 18(L) 22 - 32 mmol/L [facility] Anion gap 25(H) 2 - 15 mmol/L [facility] BUN 50(H) 6 - 25 mg/dL [facility] Creatinine 8.58(H) 0.60 - 1.10 mg/dL [facility] Glucose 115 70 - 199 mg/dL [facility] Comment: Interpretive [...] 2022. Calcium 9.1 8.5 - 10.3 mg/dL [facility] Blood 07/23/2024 2:02 AM PROPERTY MANAGER 07/23/2024 2:16 AM PROPERTY MANAGER Marilyn Martinez NP LAB BLOOD ORDERABL ES Final Result [facility] [address] Department of Laboratories [place] [phone] * Critical Care (07/22/2024 8:22 AM PROPERTY MANAGER) Narrative OfomaBlake MD - 07/22/2024 8:22 AM PROPERTY MANAGER Marilyn Martinez NP ? 07/22/2024 ??4:47 PM [...] plan with the patient's team and other medical/clinical practice consultant staff. This time was in addition [...] in the medical record us Marilyn Martinez NP IN CLINIC/BEDSIDE ORDERABLES Final Result * TRANSTHORACIC ECHO (TTE) COMPLETE W DOPPLER/CF W CONTRAST (07/22/2024 7:00 AM PROPERTY MANAGER) Anatomical Region Laterality Modality Ultrasound 07/22/2024 6:44 AM PROPERTY MANAGER Narrative 07/22/2024 8:34 [place] [address] Echocardiogram Report Patient Name: DORY NOBLE L : 1960 Study Date: 07/22/2024 6:44:33 AM Gender: F Tech: Location: [id number] [facility] Provider: BLAIR NOE ?Height(Cm): 152 BSA: 2.02 [...] By: Jennifer Carmichael MD 07/22/2024 8:33:01 AM PROPERTY MANAGER Procedure Note Rubin Carmichael MD - 07/22/2024 [place] [address] Echocardiogram Report Patient Name: DORY NOBLE L : 1960 Study Date: 07/22/2024 6:44:33 AM Gender: F Tech: Location: [id number] [facility] Provider: BLAIR NOE Height(Cm): 152 BSA: 2.02 [...] By: Jennifer Carmichael MD 07/22/2024 8:33:01 AM PROPERTY MANAGER Blair Noe APRN CV ECHO PROCEDURES Final Result * (ABNORMAL) eGFR (07/22/2024 5:41 AM PROPERTY MANAGER) eGFR 5(L) >=60 mL/min/1. 73 m2 Comment: [...] last reviewed 2021. Blood 07/22/2024 5:41 AM PROPERTY MANAGER 07/22/2024 5:44 AM PROPERTY MANAGER Tanika KNAPP LAB BLOOD ORDERABLES F inal Result [facility] [address] Department Compliance [address] [place] [address] * (ABNORMAL) CBC without differential (07/22/2024 5:41 AM PROPERTY MANAGER) WBC 19.5(H) 3.8 - 9.9 K/cumm Hgb 8.9(L) 11.9 - 15.5 g/dL [facility] Hct 25.8(L) 35.6 - 45.5 % [facility] Plt 241 150 - 400 K/cumm [facility] MPV 12.2 9.1 - 12.3 fL [facility] RBC 3.03(L) 3.90 - 5.20 M/cumm [facility] MCV 85.1 81.3 - 96.4 fL [facility] MCH 29.4 27.1 - 33.3 pg [facility] MCHC 34.5 32.3 - 35.7 g/dL [facility] RDW CV 16.3(H) 11.1 - 14.9 % [facility] RDW SD 47.0 35.7 - 48.1 fL [facility] NRBC abs 0.24(H) 0.00 - 0.01 K/cumm [facility] Blood 07/22/2024 5:41 AM PROPERTY MANAGER 07/22/2024 5:44 AM PROPERTY MANAGER Blair Noe APRN LAB BLOOD ORDERABL ES Final Result [facility] [address] Department of Compliance [address] [place] [address] * Phosphorus (07/22/2024 5:41 AM PROPERTY MANAGER) Phosphorus, pl 2.9 2.3 - 4.5 mg/dL Blood 07/22/2024 5:41 AM PROPERTY MANAGER 07/22/2024 5:44 AM PROPERTY MANAGER Marilyn Martinez MAINTENANCE SHOP TECHNICIAN LAB BLOOD ORDERABL ES Final Result [facility] [address] Department Compliance [address] [place] [address] * Magnesium (07/22/2024 5:41 AM PROPERTY MANAGER) Pathologist [facility] Magnesium 2.5 1.4 - 2.5 mg/dL Blood 07/22/2024 5:41 AM PROPERTY MANAGER 07/22/2024 5:44 AM PROPERTY MANAGER Marilyn Gunter Juan WOODALL LAB BLOOD ORDERABL ES Final Result Performing Organization Address [facility] Co de Phone Number [facility] [address] Department Compliance [address] [place] [address] * (ABNORMAL) Basic metabolic panel (07/22/2024 5:41 AM PROPERTY MANAGER) Sodium 132(L) 135 - 145 mmol/L Potassium, pl 4.0 3.3 - 4.9 mmol/L [facility] Chloride 91(L) 97 - 110 mmol/L [facility] CO2 18(L) 22 - 32 mmol/L [facility] Anion gap 23(H) 2 - 15 mmol/L [facility] BUN 50(H) 6 - 25 mg/dL [facility] Creatinine 8.41(H) 0.60 - 1.10 mg/dL [facility] Glucose 139 70 - 199 mg/dL [facility] Comment: Interpretive Data Fasting glucose >/= 126 [...] 2022. Calcium 9.2 8.5 - 10.3 mg/dL [facility] Blood 07/22/2024 5:41 AM PROPERTY MANAGER 07/22/2024 5:44 AM PROPERTY MANAGER Marilyn Martinez NP LAB BLOOD ORDERABL ES Final Result Performing Organization Address [facility] Co de Phone Number [facility] [address] [address] [facility] Compliance [address] [place] [address] * Cell Differential, Body Fluid (07/22/2024 3:17 AM PROPERTY MANAGER) Total cells diffed 100 % Comment: Interpretive [...] % [facility] Fluid 07/22/2024 3:17 AM PROPERTY MANAGER 07/22/2024 3:17 AM PROPERTY MANAGER Waqas Garcia MD LAB BODY FLUIDS AND STOOLS ORDE RABKAVEH Final Result Performing Organization Address [facility] de Phone Number [facility] [address] [address] [facility] Compliance [address] [place] [address] * Cell count w/rflx diff, body fluid (07/22/2024 3:17 AM PROPERTY MANAGER) Specimen type, fld Dialysate Color, fld Straw [...] /cumm [facility] Fluid 07/22/2024 3:17 AM PROPERTY MANAGER 07/22/2024 3:17 AM PROPERTY MANAGER Waqas Garcia MD LAB BODY FLUIDS AND STOOLS STEPHANIA PELAYO Final Result [facility] [address] [place] [address] * (ABNORMAL) Urinalysis reflex to microscopic and culture Urine (07/22/2024 1:57 AM PROPERTY MANAGER) Color, ur Mitzi Yellow Clarity, ur Turbid(A) [...] tendency for uric acid stone formation. Source: [facility] Compliance [address] Current Interpretive Data was last revised on [...] Reflex to microscopic UA will be performed. [facility] Urine 07/22/2024 1:57 AM PROPERTY MANAGER 07/22/2024 2:05 AM PROPERTY MANAGER Blair Noe APRN LAB MICROBIOLOGY - GENERAL ORDERABLES Final Result [facility] [address] [place] [address] * (ABNORMAL) Urinalysis, microscopic only (07/22/2024 1:57 AM PROPERTY MANAGER) WBC, ur >50(A) 0 - 5 /HPF RBC, ur >50(A) 0 - 2 /HPF [facility] Epithelial cells, squamous, ur 6-10(A) 0 - 5 /HPF [facility] Bacteria, ur Trace(A) [facility] Culture Reflex Comment Reflex to urine culture will be performed. [facility] Urine 07/22/2024 1:57 AM PROPERTY MANAGER 07/22/2024 2:05 AM PROPERTY MANAGER Blair Noe APRN LAB URINE ORDERABL ES Final Result Performing Organization Address [facility] de Phone Number [facility] [address] [address] [place] [address] * Urine culture Urine (07/22/2024 1:57 AM PROPERTY MANAGER) Report Final Report: No growth Comment:Testing performed by : [facility], [address] [place]., [address] Urine 07/22/2024 1:57 AM PROPERTY MANAGER 07/22/2024 4:30 AM PROPERTY MANAGER Narrative [facility] - 07/23/2024 6:18 AM PROPERTY MANAGER Urine culture reflexed based upon urinalysis results. Testing performed by [facility] ([phone]) Blair Noe APRN LAB MICROBIOLOGY - GENERAL ORDERABLES Final Result Performing Organization Address [facility] de Phone Number [facility] [address] [address] Department of Compliance [address] [place] [address] * ECG 12 lead (07/22/2024 1:33 AM PROPERTY MANAGER) 07/22/2024 1:33 AM PROPERTY MANAGER Narrative [facility] - 07/22/2024 9:16 AM PROPERTY MANAGER Vent Rate: 118 bpm RR Interval: 505 msec TN Interval: 0 msec QRS Duration: 113 msec QT Interval: 354 msec QTC Interval: 424 msec P-R-T [place]: 0 - 54 - 211 degrees IMPRESSION: [...] Noe APRN ECG ORDERABLES Fi nal Result [facility] * (ABNORMAL) CBC without differential (07/22/2024 12:51 AM PROPERTY MANAGER) WBC 20.0(H) 3.8 - 9.9 K/cumm Hgb 8.5(L) 11.9 - 15.5 g/dL [facility] Hct 24.3(L) 35.6 - 45.5 % [facility] Plt 236 150 - 400 K/cumm [facility] MPV 11.9 9.1 - 12.3 fL [facility] RBC 2.81(L) 3.90 - 5.20 M/cumm [facility] MCV 86.5 81.3 - 96.4 fL [facility] MCH 30.2 27.1 - 33.3 pg [facility] MCHC 35.0 32.3 - 35.7 g/dL [facility] RDW CV 15.6(H) 11.1 - 14.9 % [facility] RDW SD 46.7 35.7 - 48.1 fL [facility] NRBC abs 0.20(H) 0.00 - 0.01 K/cumm [facility] Blood 07/22/2024 12:5 1 AM PROPERTY MANAGER 07/22/2024 12:55 AM PROPERTY MANAGER Blair Noe APRN LAB BLOOD ORDERABL ES Final Result Performing Organization Address City/[facility]/ZIP Co de Phone Number [facility] [address] [place] [address] * Blood culture Blood (07/21/2024 11:44 PM PROPERTY MANAGER) Report Final Report: No growth Comment:Testing performed by : [facility], [address] [place]., [address] Blood 07/21/2024 11:4 4 PM PROPERTY MANAGER 07/22/2024 6:05 AM PROPERTY MANAGER Narrative [facility] - 07/26/2024 7:00 AM PROPERTY MANAGER From a different site than #1. Collection->Peripheral [...] performance characteristics have been verified by the [facility]. For questions about this culture, contact the Microbiology Laboratory at [phone]. Interpretive data was last revised on 24. Blair Noe APRN LAB MICROBIOLOGY - GENERAL ORDERABLES Final Result [facility] [address] Department of Laboratories [place], [place] [id number] * Blood culture Blood (07/21/2024 11:44 PM PROPERTY MANAGER) Report Final Report: No growth Comment:Testing performed by : [facility], [address] [facility], [place]., [address] Blood 07/21/2024 11:4 4 PM PROPERTY MANAGER 07/22/2024 6:05 AM PROPERTY MANAGER Narrative [facility] - 07/26/2024 7:00 AM PROPERTY MANAGER Collection->Peripheral 1. ?Blood cultures are incubated for [...] be performed for organism identification using the [employer] blood culture identification panel for gram positive (BCID-GP) and gram negative (BCID-GN) organisms. This nucleic acid amplification test detects microbial DNA in positive blood culture broth. This assay has been cleared by the [place] Food and Drug Administration and its performance characteristics have been verified by the [facility]. For questions about this culture, contact the Microbiology Laboratory at [phone]. Interpretive data was last revised on 24. Blair Noe APRN LAB MICROBIOLOGY - GENERAL ORDERABLES Final Result [facility] [address] [place] [address] * CTA Abdomen Pelvis (07/21/2024 10:13 PM PROPERTY MANAGER) Anatomical Region Laterality Modality Body N/A Computed Tomogra phy 07/21/2024 10:0 8 PM PROPERTY MANAGER Impressions 07/22/2024 10:40 AM PROPERTY MANAGER 1. ?? Rectal thickening, question for proctitis. [...] Superimposed consolidation not excluded. Stat report by [facility] Electronically signed by: Sulaiman Xie M.D. Narrative 07/22/2024 10:40 AM PROPERTY MANAGER STUDY DESCRIPTION: CTA ABDOMEN PELVIS TECHNIQUE: Axial, [...] Superimposed consolidation not excluded. Stat report by [facility] Electronically signed by: Sulaiman Xie M.D. us Blair Noe APRN IMG CT PROCEDURES Final Result * Check Sample (07/21/2024 8:16 PM PROPERTY MANAGER) ABO Rh B Positive [facility] HCLL OTHER 07/21/2024 8:16 PM PROPERTY MANAGER 07/21/2024 8:22 PM PROPERTY MANAGER Blake Nava MD LAB BLOOD ORDERABLES Fi nal Result [place] [id number] [place] [address] * Critical Care (07/21/2024 7:48 PM PROPERTY MANAGER) Narrative Evert Pizarro MD - 07/21/2024 7:48 PM PROPERTY MANAGER Blair Noe APRN ? 07/22/2024 ??5:11 AM [...] plan with the ICU team and other medical/clinical practice consultant staff, making frequent assessments and decisions [...] time documenting in the medical record us Blair Noe APRN IN CLINIC/BEDSIDE ORDERABLES Final Result * Lactate (07/21/2024 6:55 PM PROPERTY MANAGER) Lactate 0.9 0.7 - 2.0 mmol/L Blood 07/21/2024 6:55 PM PROPERTY MANAGER 07/21/2024 7:13 PM PROPERTY MANAGER us Tanika KNAPP LAB BLOOD ORDERABLES F inal Result Performing Organization Address City/State/ZIP Co me Phone Number [place] [phone] [place] [address] * Calcium, ionized, whole blood (07/21/2024 6:55 PM PROPERTY MANAGER) Ca, ionized, bld 4.60 4.50 - 5.10 mg/dL Blood 07/21/2024 6:55 PM PROPERTY MANAGER 07/21/2024 7:13 PM PROPERTY MANAGER us Tanika KNAPP LAB BLOOD ORDERABLES F inal Result [place] [address] [place] [address] * (ABNORMAL) eGFR (07/21/2024 6:55 PM PROPERTY MANAGER) eGFR 5(L) >=60 mL/min/1. 73 m2 Comment: [...] last reviewed 2021. Blood 07/21/2024 6:55 PM PROPERTY MANAGER 07/21/2024 7:13 PM PROPERTY MANAGER Tanika Mccain Wil PA LAB BLOOD ORDERABLES F inal Result Performing Organization Address [facility] Co de Phone Number [place] [address] [facility] [address] [place] [address] * (ABNORMAL) Thyroid Function [place] (07/21/2024 6:55 PM PROPERTY MANAGER) Pathologist [facility] TSH 10.30(H) 0.30 - 4.20 mcIUnit/mL Blood 07/21/2024 6:55 PM PROPERTY MANAGER 07/21/2024 7:13 PM PROPERTY MANAGER Tanika Rochai PR LAB BLOOD ORDERABLES F inal Result Performing Organization Address [facility] de Phone Number [place] [address] [address] [place] [address] * Beta-hydroxybutyrate (07/21/2024 6:55 PM PROPERTY MANAGER) Beta-Hydroxybut yrate 0.2 <=0.5 mmol/L Blood 07/21/2024 6:55 PM PROPERTY MANAGER 07/21/2024 11:48 PM PROPERTY MANAGER Blair Noe APRN LAB BLOOD ORDERABL ES Final Result Performing Organization Address [facility] de Phone Number [place] [address] [address] [facility] [address] [place] [address] * Infection Prevention MRSA Only (Staphylococcus aureus) PCR Nasal (07/21/2024 6:55 PM PROPERTY MANAGER) PCR Scrn, Methicillin resistant Staphylococcus aureus (MRSA) Not Detected Not Detected CH Comment: Interpretive Data Testing performed using Nucleic Acid Amplification with the MyDentist Xpert MRSA NxG Assay. This assay detects target DNA from mecA, mecC and the SCCmec insertion site of Staphylococcus aureus using Real-Time PCR and has been cleared by the FDA. Performance characteristics have been verified by the [facility]. Current Interpretive Data was last revised on 2022 Nasal 07/21/2024 6:55 PM PROPERTY MANAGER 07/21/2024 7:12 PM PROPERTY MANAGER Tanikalisa Mccain Wil PA LAB MICROBIOLOGY - GEN ERAL ORDERABLES Final Result Performing Organization Address [facility] Co de Phone Number [place] [address] [address] [facility] [place] [address] CH * aPTT (07/21/2024 6:55 PM PROPERTY MANAGER) aPTT 38 28 - 38 sec Comment: Interpretive Data Heparin therapeutic range: 66.0 - 100.0 seconds. Range based on correlation with therapeutic heparin activity range of 0.3 - 0.7 Units/mL. Current interpretive data was last revised on 2023. Blood 07/21/2024 6:55 PM PROPERTY MANAGER 07/21/2024 7:13 PM PROPERTY MANAGER Tanika Adán Wil PA LAB BLOOD ORDERABLES F inal Result Performing Organization Address [facility] Co de Phone Number [place] [address] [address] [facility] [place] [address] * (ABNORMAL) Protime-INR (07/21/2024 6:55 PM PROPERTY MANAGER) PT 23.3(H) 9.7 - 13.0 sec INR 2.12(H) 0.90 - 1.20 [place] Comment: Interpretive data Oral anticoagulant therapeutic ranges: Venous thromboembolism prophylaxis or treatment: 2.0-3.0 CARDIOLOGY Standard range: 2.0-3.0 High-intensity range: 2.5-3.5 Refer to indication-specific guidelines for appropriate target ranges for prosthetic heart valve replacement. Current interpretive data was last revised on 2019. Blood 07/21/2024 6:55 PM PROPERTY MANAGER 07/21/2024 7:13 PM PROPERTY MANAGER Tanika KNAPP LAB BLOOD ORDERABLES F inal Result Performing Organization Address [facility] Co de Phone Number [place] [address] [address] [facility] [place] [address] * (ABNORMAL) CBC without differential (07/21/2024 6:55 PM PROPERTY MANAGER) WBC 20.4(H) 3.8 - 9.9 K/cumm Hgb 8.4(L) 11.9 - 15.5 g/dL [facility] Hct 24.2(L) 35.6 - 45.5 % [facility] Plt 230 150 - 400 K/cumm [facility] MPV 12.2 9.1 - 12.3 fL [facility] RBC 2.79(L) 3.90 - 5.20 M/cumm [facility] MCV 86.7 81.3 - 96.4 fL [facility] MCH 30.1 27.1 - 33.3 pg [facility] MCHC 34.7 32.3 - 35.7 g/dL [facility] RDW CV 14.7 11.1 - 14.9 % [facility] RDW SD 44.9 35.7 - 48.1 fL [facility] NRBC abs 0.17(H) 0.00 - 0.01 K/cumm [facility] Blood 07/21/2024 6:55 PM PROPERTY MANAGER 07/21/2024 7:13 PM PROPERTY MANAGER Tanika KNAPP LAB BLOOD ORDERABLES F inal Result Performing Organization Address City/[facility]/ZIP Co de Phone Number [place] [address] [address] [facility] [address] [place], [place] [id number] * Type and screen (07/21/2024 6:55 PM PROPERTY MANAGER) ABO Rh B Positive Arianna, indirect Negative [facility] Blood 07/21/2024 6:55 PM PROPERTY MANAGER 07/21/2024 7:22 PM PROPERTY MANAGER Narrative [facility] CH - 07/21/2024 8:22 PM PROPERTY MANAGER Has the patient had Daratumumab or Isatuximab in the past 6 months?->Unknown Marilyn Martinez MAINTENANCE SHOP TECHNICIAN LAB BLOOD BANK TANYA T ORDERABLES Final Result [place] [address] [address] [facility] [address] [place] [address] * T4, free (07/21/2024 6:55 PM PROPERTY MANAGER) Free T4 1.04 0.90 - 1.70 ng/dL Blood 07/21/2024 6:55 PM PROPERTY MANAGER 07/21/2024 7:13 PM PROPERTY MANAGER Tanika Mccain Wil PA LAB BLOOD ORDERABLES F inal Result Performing Organization Address [facility] Co de Phone Number [place] [phone] [address] Department [address] [place] [address] * Phosphorus (07/21/2024 6:55 PM PROPERTY MANAGER) Phosphorus, pl 2.5 2.3 - 4.5 mg/dL Blood 07/21/2024 6:55 PM PROPERTY MANAGER 07/21/2024 7:13 PM PROPERTY MANAGER Result [facility] Tanika Adán Wil PA LAB BLOOD ORDERABLES F inal Result Performing Organization Address [facility] Co de Phone Number [place] [address] [address] Department [address] [place] [address] * Magnesium (07/21/2024 6:55 PM PROPERTY MANAGER) Magnesium 2.2 1.4 - 2.5 mg/dL Blood 07/21/2024 6:55 PM PROPERTY MANAGER 07/21/2024 7:13 PM PROPERTY MANAGER Tanika Adán Wil PA LAB BLOOD ORDERABLES F inal Result Performing Organization Address City/[facility]/ZIP Co de Phone Number [place] [address] [address] [facility] [address] [place] [address] * (ABNORMAL) Hepatic function panel (07/21/2024 6:55 PM PROPERTY MANAGER) Bilirubin, total 0.6 0.1 - 1.2 mg/dL Bilirubin, direct 0.3 0.1 - 0.3 mg/dL [facility] Protein, pl 5.8(L) 6.5 - 8.5 g/dL [facility] Albumin 3.5 3.5 - 5.0 g/dL [facility] Alk phos 115 40 - 130 Units/L [facility] ALT 26 7 - 45 Units/L [facility] AST 19 10 - 45 Units/L [facility] Blood 07/21/2024 6:55 PM PROPERTY MANAGER 07/21/2024 7:13 PM PROPERTY MANAGER us Tanika KNAPP LAB BLOOD ORDERABLES F inal Result [facility] [address] [address] [place] [address] * (ABNORMAL) Basic metabolic panel (07/21/2024 6:55 PM PROPERTY MANAGER) Sodium 135 135 - 145 mmol/L Potassium, [...] 2022. Calcium 9.1 8.5 - 10.3 mg/dL [place] [place] Blood 07/21/2024 6:55 PM PROPERTY MANAGER 07/21/2024 7:13 PM PROPERTY MANAGER Tanika KNAPP LAB BLOOD ORDERABLES F inal Result [place] [address] [address] [place] [address] * X-ray chest 1 view (Portable) (07/21/2024 6:42 PM PROPERTY MANAGER) Anatomical Region Laterality Modality Body, Chest N/A Computed Radiogr aphy 07/21/2024 7:05 PM PROPERTY MANAGER Impressions 07/21/2024 7:05 PM PROPERTY MANAGER NO ACUTE PULMONARY CHANGE. Electronically signed by: Sulaiman Xie M.D. Narrative 07/21/2024 7:05 PM PROPERTY MANAGER EXAMINATION: XR CHEST 1 VIEW HISTORY: Atrial [...] CHANGE. Electronically signed by: Sulaiman Xie M.D. us Tanika KNAPP IMG XR PROCEDURES Samina l Result * POCT glucose (07/21/2024 6:33 PM PROPERTY MANAGER) Glucose, POC 97 70 - 199 mg/dL Blood 07/21/2024 6:33 PM PROPERTY MANAGER 07/21/2024 6:33 PM PROPERTY MANAGER Blake Nava MD LAB POCT ORDERABLES - D EVICE Final Result Performing Organization Address [facility]/ZIP Co de Phone Number [place] [address] [address] [place] [address] * Cardiology Document Scan (07/15/2024 10:51 AM PROPERTY MANAGER) Anatomical Region Laterality Modality Other Jia Beard NP CV CARDIAC SERVICES PROCEDUR ES Final Result * (ABNORMAL) Protime-INR (06/04/2024 12:25 PM PROPERTY MANAGER) INR 3.1(H) [facility] Comment: Reference Range ? 0.9-1.1 Moderate-intensity Warfarin Therapy 2.0-3.0 Higher-intensity Warfarin Therapy ?? 3.0-4.0 PT 30.8(H) 9.0 - 11.5 sec [facility] Comment: For additional information, please refer to http://education.[employer]/faq/HRR767 (This link is being provided for informational/ educational purposes only.) Blood 06/04/2024 12:2 5 PM PROPERTY MANAGER 06/04/2024 12:26 PM PROPERTY MANAGER Jama Hoskins MD LAB BLOOD ORDERABLES Fin al Result [facility] [address] [place] [address] from Last 3 Months Insurance IDPA MEDICARE [facility] MEDICARE Advance Directives For more information, please contact: [phone] * Full Code (Latest Code Status on File) Date Activated Date Inactivated Comments 07/25/2024 6:59 PM 08/04/2024 7:42 PM * Full Code Date Activated Date Inactivated Comments 07/21/2024 6:30 PM 07/25/2024 6:50 PM Care Teams [employer] Relationship Specialty Start Date End Date Porsche Becker NP [address] [facility] [address] [place], [place] [id number] PCP - General Nurse Practitioner 08/19/24 Mookie Dubois MD Referring Physician Nephrology 02/20/22 Abigail Dougherty, RN [address] [facility] [address] [place] [address] Cmm Programmer 02/13/24 Jama Hoskins MD [address] [facility] [address] [place] [address] Consulting Physician Cardiology 02/20/24
--- OUTSIDE RECORDS SUMMARY | 2024-08-19 12:37 | XMS_ITS | Encounter Summary ---
Author Organization [facility] Healthcare Address [address] [place] [address] Care Team Providers Care Loss Prevention Consultant Name Role Phone Rhoades, Brandie Quan NP Primary Care Provider [phone] Mookie Dubois MD Unavailable Abigail Dougherty RN Unavailable Jama Hoskins MD Unavailable [phone] Reason for Visit * Auth/Cert (Routine) Specialty Diagnoses / Procedures Referred By Christiano t Referred To Contact Referral ID Status Reason Start Date Expiration Date Visits Re quested Visits Authorized [id number] 1 1 Encounter Details Date Type Department Care Team (Latest Contact Info) Description 08/07/2024 8:30 AM REAL ESTATE OFFICER Home Care Visit [facility] [address] [address] [address] [place] [address] Lillian Campuzano, PT PT OASIS START OF CARE Social History Tobacco Use Types Packs/Day Years [...] materials from doctor or pharmacy Sometimes 08/07/2024 [facility] Utilities Answer Date Recorded In the [...] often do you attend chur ch or denominational services? Patient declined 07/26/2024 Do you belong to any clubs o r organizations such as holiness groups, unions, fraternal or athletic groups, or [...] Recorded Patient Health Questionnaire-2 Score 1 08/04/2024 [facility] [place] of Occupat ional Health - Occupational Stress [...] any time in the past 12 m [facility] [place], were you homeless or living in a custodial (including now)? No 07/26/2024 Personal Safety Answer Date Recorded Have you ever been in or are you currently in a harmful physical or emotional relationship or is someone making you feel afraid or unsafe? Denies 07/25/2024 Comments Unknown Sex and Gender Information Value Date Recorded Sex Assigned at Not on file 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 REAL ESTATE OFFICER Gender Identity Not on file Sexual Orientation Not on file documented as of this encounter Last Filed Vital Signs Vital Sign Reading Time Taken Comments Blood Pressure 112/70 08/07/2024 9:33 AM REAL ESTATE OFFICER Pulse 90 08/07/2024 9:33 AM REAL ESTATE OFFICER Temperature 36.1 ??C (97 ??F) 08/07/2024 9:33 AM REAL ESTATE OFFICER Respiratory Rate 18 08/07/2024 9:33 AM REAL ESTATE OFFICER Oxygen Saturation 93% 08/07/2024 9:33 AM REAL ESTATE OFFICER Inhaled Oxygen Concentration - - Weight - - Height - - Body Mass Index - - documented in this encounter Miscellaneous Notes * Home Health/Infusion TEJASAR - Lillian Campuzano, PT - 08/07/2024 9:00 AM REAL ESTATE OFFICER SITUATION Focus of Care: AFIB Caregivers available: Mother, daughter BACKGROUND Pertinent Medical History/Hospitalizations: [facility] 07/21 - 07/25/24 followed by rehab 07/25 - 08/04/24, d/t persistent Afib with RVR. PMH inc physical deconditioning, bacteremia, ESRD on PD, HTN, chronic anemia. Pt lives w her mother and daughter in ground level apartment. Prior Level of Functioning: Pt prev amb w no device in the apartment, used power scooter for mobility longer distances in the community. Pt prev (I) with self care, currently needing assist Current Living Conditions/Safety Hazards: Tub/shower lacks grab bars ASSESSMENT Abnormal assessment findings: Weakness, poor endurance, fall risk, BLE edema Medication Issues: None Re-hospitalization risk: Moderate Barriers to care/social drivers: None Pt goal is to be able to amb w/o a device, improve her endurance, RECOMMENDATIONS POC confirmed with : Tim Plan for my discipline: 2w3, 1w3 Other disciplines ordered/recommended: OT Supply/HME/equipment needs or issues: PT recommended tub transfer bench, grab bars for tub/shower Follow ups needed: Pt currently does not have a PCP. Pt scheduled to establish new PCP with [facility] - Porsche Becker NP on 10/08/24 ESTATE OFFICER * Quality Review - Darlene Jack - 08/07/2024 8:53 AM CST M1800 - Grooming 1- some help 2- needs assist Changed from 1 to 2. Patient requires supervision and assistance for safety. According to OASIS guidance, if patient requires standby assist OR verbal cues to groom self, due to physical/cognitive/environmental barriers to complete activities safely, then Code 2. M1028 - Active Diagnoses 3- None of the above 3- None of the above Change from blank to NA. Patient does not have an active diagnosis of DM OR PVD/PAD documented by the MD or designee on the day of assessment. M1033 - Risk for Hospitalization 7-Taking 5+ meds;8-Reports exhaustion 3-Multiple hospitalizations;7-Taking 5+ meds;8-Reports exhaustion;9-Other risk Add Response 3. Patient has had two hospitalizations. According to OASIS guidance, if the patient has had 2 or more hospitalizations in the last 6 months (does not include Rehab or SNF), then Code 3. Add Response 5. Patient has a cognitive/behavioral/emotional diagnoses/condition of ESRD and Heart failure/afib, although it??s not clear if there has been a decline. If the patient has had a decline in this diagnosis, they are more likely to experience rehospitalization; and Response 5 would be appropriate. Add Response 9. Other risks may be selected for other characteristics not already covered in 1-8 including (i.e., slower movement during sit to stand and walking-increased TUG); and item intent is to identify patient characteristics that may indicate the patient is at risk for hospitalization. M1340 - Surgical Wound 0- No 1- Yes, observable surgical wound Changed from 0 to 1.Patient has a dialysis port. According to OASIS guidance, if patient has a surgical wound, then Code 1. Example of surgical wounds include: surgical incision; dialysis insertion site or AV fistulas; implanted port; other central line; orthopedic pin site; wounds with drains; LALITA drain after cholecystectomy; biopsy site; muscle or skin flap to replace pressure ulcer; and bowel ostomy take down. M1342 - Surgical Wound Status 3- not healing Change from skipped to 3. Patient has a dialysis port. According to OASIS guidance, if patient has an implanted port that is accessed, this would prevent epithelialization and healing. Recommend Code 3. ESTATE OFFICER documented in this encounter Plan of Treatment Not on file documented as of this encounter Visit Diagnoses Not on filedocumented in this encounter Home Health Visit - Care Plan Visit Details Visit Type -PT OASIS Start o f Care Discipline -Physical Therapy Problems Problem Description Start Date Status Goals Interve ntions Monitor patient's vital signs every home health visit Disciplines: Skilled Disciplines, SN, PT, OT, BLACK TOP MACHINE OPERATOR, PLATING INSPECTOR Monitor patient's vital signs every home health visit. 08/07/2024 Active 1 goal linked to scheduled/documen melva intervention 1 goal intervention scheduled/documen melva in this visit Infection Prevention Disciplines: Skilled Disciplines Infection Prevention 08/07/2024 Active 1 goal linked to scheduled/documen melva intervention 1 goal intervention scheduled/documen melva in this visit Fall Precautions/Safe ty Concerns Disciplines: Skilled Disciplines Fall precautions and general safety 08/07/2024 Active 1 goal linked to scheduled/documen melva intervention 1 goal intervention scheduled/documen melva in this visit Pain Disciplines: Core Disciplines Alteration in comfort 08/07/2024 Active 1 goal linked to scheduled/documen melva intervention 1 goal intervention scheduled/documen melva in this visit PT Chronic Condition Management Disciplines: Physical Therapy PT Chronic Condition Management 08/07/2024 Active - 1 problem intervention scheduled/documen melva in this visit PT Medication Management Disciplines: Physical Therapy PT Medication Management 08/07/2024 Active - 1 problem intervention scheduled/documen melva in this visit PT Impaired Functional Mobility Disciplines: Physical Therapy Impaired functional mobility 08/07/2024 Active - 4 problem interventions scheduled/documen melva in this visit Goals Goal Associated Problem Outcome Goal Met? Visit Notes Measure vital signs during every home health visit during episode of care Description: Home dry goods inspector to measure vital signs during every home health visit during episode of care. Monitor patient's vital signs every home health visit No Verbalize signs of infection Description: Patient/caregiver will demonstrate knowledge of infection prevention strategies by verbalizing signs and symptoms of infection. Infection Prevention No Demonstrate fall and safety precautions Description: Patient/caregiver maintains safe home environment as evidenced by remaining free from falls, injury due to falls, demonstrating safety precautions, and identifying strategies to reduce falls by 10/05/24 Fall Precautions/Safety Concerns No Report that pain has been reduced or controlled Description: Patient/caregiver/family will verbalize satisfaction with the patients level of pain and symptom control. Pain No Interventions Intervention Associated Problem/Goal Status Variance Visit Notes Monitor Vital Signs Description: Monitor blood pressure, pulse, oxygen saturation, respirations Problem:Monitor patient's vital signs every home health visit Goal:Measure vital signs during every home health visit during episode of care Completed Aspects of Care Description: Instruct patient/caregiver on universal precautions and home infection control measures Problem:Infection Prevention Goal:Verbalize signs of infection Completed High Fall Risk Precautions Description: Instruct patient/caregivers to use proper lighting in all areas, stand/sit up slowly, use appropriate footwear when walking, use proper assistive devices, and to keep pathways clear of cords and clutter to prevent falls. Remove/secure throw rugs. Educate patient on medications and disease processes that increase fall risk, using corrective lenses as prescribed, placing hard to reach items within reach, what to do in the event of a fall and to report any falls to the home health agency. Problem:Fall Precautions/Safety Concerns Goal:Demonstrate fall and safety precautions Completed Instruct on pain management techniques Description: Instruct in pharmacologic and nonpharmacologic pain management techniques. Problem:Pain Goal:Report that pain has been reduced or controlled Completed Anticoagulation therapy instruction Description: Instruct patient/caregiver on signs and symptoms of adverse effects of anticoagulation therapy and the need for emergency services. Problem:PT Chronic Condition Management Completed Medication Regimen Description: Assess patient/caregiver ability to follow prescribed medication regimen, including monitoring for side effects, notifying physician of questions or concerns and contacting pharmacy for refills when needed. Problem:PT Medication Management Completed Home Exercise Program (HEP) Description: Instruct patient/caregiver and perform HEP. Problem:PT Impaired Functional Mobility Completed PT instructed pt and cg on initial HEP for seated BLE strengthening including Heel raises, Toe raises, LAQ, Hip flexion w knee flexion, Hip abd/add w knee ext Pt able to complete x 8-10 reps ea BLE and demonstrates good return w min cueing. PT instructed pt to perform HEP 2-3x/day, inc to 10-15 reps ea as tolerated; pt verb understanding. Pt has written HEP instructions as provided at rehab PA. Bed Mobility/Transfer Training Description: Instruct patient/caregiver and perform bed mobility/transfer training. Problem:PT Impaired Functional Mobility Completed Assistive Devices/DME Description: Recommend and assist with obtaining assistive devices/DME. Problem:PT Impaired Functional Mobility Completed Therapeutic Exercise Description: Perform therapeutic exercise, progressing as tolerated. Problem:PT Impaired Functional Mobility Completed documented in this encounter Care Teams Loss Prevention Consultant Relationship Specialty Start Date End Date Brandie Rhoades NP [address] [place] [address] PCP - General Nurse Practitioner 08/09/21 08/18/24 Mookie Dubois MD [address] [place] [address] Referring Physician Nephrology 02/20/22 Abigail Dougherty, RN [address] [address] Slip Dumper 02/13/24 Jama Hoskins MD [address] [facility] 162 [facility] [address] [place] [address] Consulting Physician Cardiology 02/20/24 documented as of this encounter
--- OUTSIDE RECORDS SUMMARY | 2024-08-19 12:37 | XMS_ITS | Encounter Summary ---
Author Organization [facility] Healthcare Address [address] [place] [address] Care Team Providers Care Radio Frequency Technician Name Role Phone [place], Brandie Quan VE TEACHER Primary Care Provider [phone] Mookie Dubois MD Unavailable [phone] Abigail Dougherty RN Unavailable [phone] Jama Hoskins MD Unavailable [phone] Porsche Becker NP Primary Care Provider [phone] Reason for Visit * Reason Onset Date Comments Hypotension 08/14/2024 Encounter Details Date Type Department Care Team (Late st Contact Info) Description 08/14/[address] [facility] Cardiology [address] [address] Jama Hoskins MD [address] [facility] [address] [place] [address] Hypotension Social History Tobacco Use Types Packs/Day Years [...] materials from doctor or pharmacy Sometimes 08/07/2024 [facility] Utilities Answer Date Recorded In the [...] often do you attend chur ch or presybeterian services? Patient declined 07/26/2024 Do you belong to any clubs o r organizations such as voodoo groups, unions, fraternal or athletic groups, or [...] Recorded Patient Health Questionnaire-2 Score 1 08/04/2024 [facility] [place] of Occupat ional Health - Occupational Stress [...] any time in the past 12 m [facility], were you homeless or living in a fpc (including now)? No 07/26/2024 Personal Safety Answer Date Recorded Have you ever been in or are you currently in a harmful physical or emotional relationship or is someone making you feel afraid or unsafe? Denies 07/25/2024 Comments Unknown Sex and Gender Information Value Date Recorded Sex Assigned at Not on file 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 FABRICATION MACHINE OPERATOR Gender Identity Not on file Sexual Orientation Not on file documented as of this encounter Miscellaneous Notes * Telephone Encounter - Dominga Chowdary RN - 08/14/2024 12:11 PM FABRICATION MACHINE OPERATOR Spoke with pt, pt states over the past few days she has been having low bp in the AM and feeling weak and dizzy. Pt states that her machine precision engraver took her off of her metoprolol and lasix, pt is takingamiodarone 200 mg daily and midodrine 5 mg three times a day. Pt states that she takes her first dose of midodrine at 0900 and then she starts to feel better as the day goes on. Pt states she thinks her symptoms are related to the way she is getting dialysis at home vs how she was getting it in thehospital but her machine precision engraver does not think so and told her to contact cardiology. Pt states rightnow she feels ok. Pt advised to continue medications that same, get up from a seated position slowly and go to the er for any worsening symptoms. Pts appt moved to a sooner date with CT per pt request to discuss. Advised pt to call back with any questions or concerns. ICATION MACHINE OPERATOR * Telephone Encounter - Anna Gilmore - 08/14/2024 11:53 AM CST Patient states that after her dialysis in the morning her BP has been dropping. States that today after dialysis it was 81/61 and the highest it has been all week was 112/60. Patient requesting a call back to discuss possible medication changes. Please advise. Thank you. Contact [phone] ICATION MACHINE OPERATOR documented in this encounter Plan of Treatment Not on file documented as of this encounter Visit Diagnoses Not on filedocumented in this encounter Care Teams Radio Frequency Technician Relationship Specialty Start Date End Date [place], Brandie Quan NP [address] [facility] 8 [place] [address] PCP - General Nurse Practitioner 08/09/21 08/18/24 Porsche Becker NP [address] [facility] [address] [place] [address] PCP - General Nurse Practitioner 08/19/24 Mookie Dubois MD [address] [place] [address] Referring Physician Nephrology 02/20/22 Abigail Dougherty, RN [address] [address] Deck Scaler 02/13/24 Jama Hoskins MD [address] [facility] [address] [facility] [address] [place] [address] Consulting Physician Cardiology 02/20/24 documented as of this encounter
--- OUTSIDE RECORDS SUMMARY | 2024-08-19 12:37 | XMS_ITS | Patient Health Summary ---
Author Organization [facility] Address [address] [place] [address] Care Team Providers Care Mold Insert Changer Name Role Phone Unavailable Primary Care Provider Unavailabl e Note from [facility],non-owned Affiliates and Associated Physician Practices is amultiple site organization consisting of ambulatory clinics and hospital sitesin [place], [place], [place] and [place]. This disclosure is being madepursuant to the Care Everywhere program and may not contain all information available regarding this patient. Last updated 18.[facility] Allergies * unknown-antibiotic? [Other](Other) Medications * Be [...] IR CENTRAL LINE REMOVAL (05/29/2022 7:44 AM HOUSING LIAISON) Anatomical Region Laterality Modality X-Ray Angiograph y Narrative 05/29/2022 12:35 PM HOUSING LIAISON Bladimir Waite MD ? 05/29/2022 12:38 PM Dory Lynn 1960 [id number] Interventional Nephrology Procedure Date: ??05/29/2022 Attending Surgeon [...] PLACEMENT: REMOVAL OF TUNNELED CENTRALLY INSERTED CVC; [id number] Findings: 1. ??A 32 cm tip to [...] Waite MD 05/29/2022 12:35 PM [facility]20 - [phone] Mookie Dubois MD [facility] dialysis. Mookie Dubois MD IR ORDERABLES * GROSS + MICRO EXAM (06/23/1996 7:44 AM HOUSING LIAISON) Result CASE NUMBER [id number] Comment: ORDERING PHYSICIAN ?? SPECIMEN TYPE ?Placenta Date ? 06/23/1996 Physician ?[place] Gross Description ? The specimen is received [...] maternal aspect, revealing no additional gross abnormalities. ??Advertising Columnist sections are submitted as follows ?? A, [...] pathologic diagnosis. ?? *Snomed Code 1 ? [id number] - [id number] Customer Development Representative ? kn Pathologist ?Erlin Uriostegui M.D. MISCELLANEOUS SAMPLES / Unknown 06/23/1996 7:44 AM HOUSING LIAISON 06/23/1996 7:44 AM HOUSING LIAISON Historical Provider LAB - PATHOLOGY/C YTOLOGY ORDERABLES
--- OUTSIDE RECORDS SUMMARY | 2024-08-19 12:37 | XMS_ITS ---
Author Organization [facility] [address] Address [address] [place] [address] Care Team Providers Care Apprentice Stylist Name Role Phone Mookie Dubois MD Unavailable [phone] Abigail Dougherty RN Unavailable [phone] Jama Hoskins MD Unavailable [phone] Porsche Becker NP Primary Care Provider [phone] Transplant Episode Kidney Candidate [facility] ([place], [place]) - [facility] Evaluation began on 02/20/2024 Marked as Active on 02/20/2024 Reason: Evaluation - Standard Kidney CoordinatorAbigail Dougherty RN Fax: N/A Email: N/A Scores Score Value Updated Exceptions/Reas ons CPRA Not available EPTS (Calc) 49 08/19/2024 Care Team Name Role Phone Fax Email Abigail Dougherty RN Kidney Coordinator [phone] N/A N/A Mookie Dubois MD Referring Physician [phone] N/A Gladys Charlton Cabin Man [phone] N/A N/A Annalise Mays Primary Director Of Music N/A N/A N/A Events Pre-Transplant Referred: 02/12/2024 Evaluation began: 02/20/2024 Dialysis History Dialysis History Start End Type [facility] 09/30/2021 Peritoneal [facility] Dialysis [facility] Information Center Phone Fax Address [facility] [phone] [address]
[2024-08-19 13:01] LABS: Basophils Absolute Auto 0.1 K/mm3 (0.0-0.1); Basophils Percent Auto 0.7 % (0.2-1.2); Eosinophils Absolute Auto 0.2 K/mm3 (0-0.3); Eosinophils Percent Auto 1.7 % (0-4.4); Hematocrit 21.2 % (37.0-47.0); Immature Granulocyte Absolute 0.22 K/mm3 (0.00-0.031); Immature Granulocyte Percent A 1.6 % (0-0.5); Lymphocytes Percent Auto 5.7 % (18.3-44.2); Mean Corpuscular HGB Conc 29.7 g/dl (32-36); Mean Corpuscular Volume 104.4 fl (80-100); Mean Platelet Volume 8.6 fl (7.4-10.4); Monocytes Absolute Auto 1.4 K/mm3 (0.1-0.6); Neutrophils Absolute Auto 11.3 K/mm3 (1.3-6.7); Neutrophils Percent Auto 80.3 % (45.5-73.1); Nucleated Red Blood Cells Perc 0.2 % (0.0-0.2); Platelet Count Result 558 k/mm3 (150-375); Red Blood Count 2.03 M/mm3 (4.2-5.4); Red Cell Distribution Width 19.4 % (11.5-14.5); White Blood Count 14.1 K/mm3 (4.5-10.0)
[2024-08-19 13:09] LABS: Hemoglobin 6.3 g/dL (12.0-15.0)
[2024-08-19 13:25] LABS: Anion Gap 16 mmol/L (4-12); Anisocytosis 1+; Blood Urea Nitrogen 38 mg/dL (7-17); Calcium 9.3 mg/dL (8.4-10.2); Carbon Dioxide 28 mmol/L (22-30); Chloride 90 mmol/L (98-107); Estimated Glomerular Filt Rate 5; Glucose 111 mg/dL (65-110); Hypochromasia 1+; Platelet Estimate Increased (Adequate); Potassium 2.5 mmol/L (3.4-5.0); Sodium 134 mmol/L (137-145)
[2024-08-19 13:26] LABS: Burr Cells 1+; Schistocytes None Seen; Target Cells 1+
== END 2024-08-19 12:30 | disposition home or self-care (01) ==
PROVIDERS: PCP Nurse Practitioner Adult Health; Visit Provider Internal Medicine Nephrology
DX: I95.9 Hypotension, unspecified (principal); E86.1 Hypovolemia
CPT/HCPCS: 36415; 80048; 82533; 85025

== ENCOUNTER 2024-10-28 13:28 | Outpatient (CLI) | payer MEDICARE, MEDICAID, SELFPAY ==
[2024-10-28 14:04] LABS: Hematocrit 32.3 % (37.0-47.0); Hemoglobin 9.8 g/dL (12.0-15.0)
[2024-10-28 14:19] LABS: Anion Gap 13 mmol/L (4-12); Blood Urea Nitrogen 40 mg/dL (7-17); Carbon Dioxide 30 mmol/L (22-30); Chloride 98 mmol/L (98-107); Estimated Glomerular Filt Rate 4; Glucose 108 mg/dL (65-110); Potassium 3.5 mmol/L (3.4-5.0); Sodium 141 mmol/L (137-145)
--- OUTSIDE RECORDS SUMMARY | 2024-10-28 14:31 | XMS_ITS | Clinical Summary ---
Author Organization [facility] Address [address] [place] [address] Care Team Providers Care Six Pack Packer Name Role Phone Unavailable Primary Care Provider Unavailabl e Source Comments [facility],non-owned Affiliates and Associated Physician Practices is amultiple site organization consisting of ambulatory clinics and hospital sitesin [place], [place], [place] and [place]. This disclosure is being madepursuant to the Care Everywhere program and may not contain all information available regarding this patient. Last updated 18.[facility] Allergies Active Allergy Reactions Criticality Noted Date Comments unknown-antibiotic? [Other] Other Medications * Be aware that medications may not be up to date on this document. Alwaysverify current medications with the patient. 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
--- OUTSIDE RECORDS SUMMARY | 2024-10-28 14:31 | XMS_ITS ---
Author Organization [facility] [address] Address [address] [place] [address] Care Team Providers Care Chute Man Name Role Phone Mookie Dubois MD Unavailable [phone] Jama Hoskins MD Unavailable [phone] Porsche Becker NP Primary Care Provider [phone] Dialysis Access Sites Type Status Location Placement Date Removal Da te Peritoneal Dialysis Catheter Left lower abdomen Active Left Abdomen (side) - Lower Procedures Procedure Name Priority Date/Time Associated Diagnosis Comments POCT LIPID PANEL Routine 10/10/2024 4:22 PM CDT Need for lipid screening ELECTROCARDIOGRAM REPORT Routine 10/10/2024 4:08 PM CDT Persistent atrial fibrillation (HCC) DIFFERENTIAL AUTO Routine 08/26/2024 2:3 6 AM CORRECTIONAL COUNSELOR/CASE MANAGER CBC WITH AUTO DIFFERENTIAL Routine 08/26/2024 2:36 AM CORRECTIONAL COUNSELOR/CASE MANAGER CONTINUOUS CYCLIC PERITONEAL DIALYSIS (CCPD) Routine 08/26/2024 12:31 AM CORRECTIONAL COUNSELOR/CASE MANAGER XR CHEST 1 VIEW IP Routine 08/25/2024 3:10 PM CORRECTIONAL COUNSELOR/CASE MANAGER CELL DIFFERENTIAL, BODY FLUID Routine 08/25/2024 2:32 PM CORRECTIONAL COUNSELOR/CASE MANAGER AMYLASE, BODY FLUID Routine 08/25/2024 2 :32 PM CORRECTIONAL COUNSELOR/CASE MANAGER CELL COUNT W/REFLEX DIFFERENTIAL, BODY FLUID Routine 08/25/2024 2:32 PM CORRECTIONAL COUNSELOR/CASE MANAGER GLUCOSE, BODY FLUID Routine 08/25/2024 2 :32 PM CORRECTIONAL COUNSELOR/CASE MANAGER LACTATE DEHYDROGENASE, BODY FLUID Routine 08/25/2024 2:32 PM CORRECTIONAL COUNSELOR/CASE MANAGER PROTEIN, BODY FLUID Routine 08/25/2024 2 :32 PM CORRECTIONAL COUNSELOR/CASE MANAGER XR CHEST PA LATERAL 2 VIEWS IP Routine 08/25/2024 8:27 AM CORRECTIONAL COUNSELOR/CASE MANAGER DIFFERENTIAL AUTO Routine 08/25/2024 3:0 3 AM CORRECTIONAL COUNSELOR/CASE MANAGER CBC WITH AUTO DIFFERENTIAL Routine 08/25/2024 3:03 AM CORRECTIONAL COUNSELOR/CASE MANAGER CYTOLOGY Routine 08/25/2024 12:00 AM CORRECTIONAL COUNSELOR/CASE MANAGER DIFFERENTIAL AUTO Routine 08/24/2024 4:3 4 AM CORRECTIONAL COUNSELOR/CASE MANAGER CBC WITH AUTO DIFFERENTIAL Routine 08/24/2024 4:34 AM CORRECTIONAL COUNSELOR/CASE MANAGER EGFR Routine 08/22/2024 9:54 AM CORRECTIONAL COUNSELOR/CASE MANAGER DIFFERENTIAL AUTO Routine 08/22/2024 9:5 4 AM CORRECTIONAL COUNSELOR/CASE MANAGER COMPREHENSIVE METABOLIC PANEL Routine 08/22/2024 9:54 AM CORRECTIONAL COUNSELOR/CASE MANAGER CBC WITH AUTO DIFFERENTIAL Routine 08/22/2024 9:54 AM CORRECTIONAL COUNSELOR/CASE MANAGER URINALYSIS, MICROSCOPIC ONLY Routine 08/21/2024 6:01 PM CORRECTIONAL COUNSELOR/CASE MANAGER URINE CULTURE Routine 08/21/2024 6:01 PM CORRECTIONAL COUNSELOR/CASE MANAGER URINALYSIS AND REFLEX TO MICROSCOPIC AND CULTURE Routine 08/21/2024 6:01 PM CORRECTIONAL COUNSELOR/CASE MANAGER CT CHEST ABDOMEN PELVIS WO CONTRAST ED Urgent/IP Urgent 08/21/2024 4:56 PM CORRECTIONAL COUNSELOR/CASE MANAGER VITAMIN B12 Routine 08/21/2024 7:44 AM CORRECTIONAL COUNSELOR/CASE MANAGER FOLATE Routine 08/21/2024 7:44 AM CORRECTIONAL COUNSELOR/CASE MANAGER IRON PROFILE W/ IBC Routine 08/21/2024 7 :44 AM CORRECTIONAL COUNSELOR/CASE MANAGER BLOOD CULTURE Routine 08/21/2024 7:44 AM CORRECTIONAL COUNSELOR/CASE MANAGER BLOOD CULTURE Routine 08/21/2024 7:44 AM CORRECTIONAL COUNSELOR/CASE MANAGER EGFR Routine 08/21/2024 2:52 AM CORRECTIONAL COUNSELOR/CASE MANAGER DIFFERENTIAL AUTO Routine 08/21/2024 2:5 2 AM CORRECTIONAL COUNSELOR/CASE MANAGER COMPREHENSIVE METABOLIC PANEL Routine 08/21/2024 2:52 AM CORRECTIONAL COUNSELOR/CASE MANAGER CBC WITH AUTO DIFFERENTIAL Routine 08/21/2024 2:52 AM CORRECTIONAL COUNSELOR/CASE MANAGER XR CHEST 1 VIEW ED 08/21/2024 1:09 AM CORRECTIONAL COUNSELOR/CASE MANAGER POTASSIUM, WHOLE BLOOD Timed 12:48 AM CORRECTIONAL COUNSELOR/CASE MANAGER HEMOGLOBIN AND HEMATOCRIT Timed 08/21/2024 12:48 AM CORRECTIONAL COUNSELOR/CASE MANAGER TRANSFUSE RED BLOOD CELLS Timed 08/20/2024 9:36 PM CORRECTIONAL COUNSELOR/CASE MANAGER PREPARE RBC STAT 08/20/2024 8:06 PM CORRECTIONAL COUNSELOR/CASE MANAGER APTT STAT 08/20/2024 8:02 PM CORRECTIONAL COUNSELOR/CASE MANAGER PROTIME-INR STAT 08/20/2024 8:02 PM CORRECTIONAL COUNSELOR/CASE MANAGER TYPE AND SCREEN STAT 08/20/2024 8:02 PM CORRECTIONAL COUNSELOR/CASE MANAGER EGFR STAT 08/20/2024 1:06 PM CORRECTIONAL COUNSELOR/CASE MANAGER DIFFERENTIAL AUTO STAT 08/20/2024 1:0 6 PM CORRECTIONAL COUNSELOR/CASE MANAGER MAGNESIUM Routine 08/20/2024 1:06 PM CORRECTIONAL COUNSELOR/CASE MANAGER COMPREHENSIVE METABOLIC PANEL STAT 08/20/2024 1:06 PM CORRECTIONAL COUNSELOR/CASE MANAGER CBC WITH AUTO DIFFERENTIAL STAT 08/20/2024 1:06 PM CORRECTIONAL COUNSELOR/CASE MANAGER ECG 12-LEAD Routine 08/20/2024 12:45 PM CORRECTIONAL COUNSELOR/CASE MANAGER DIFFERENTIAL AUTO Routine 08/02/2024 5:4 5 AM CORRECTIONAL COUNSELOR/CASE MANAGER CBC WITH AUTO DIFFERENTIAL Routine 08/02/2024 5:45 AM CORRECTIONAL COUNSELOR/CASE MANAGER EGFR Routine 08/01/2024 6:03 AM CORRECTIONAL COUNSELOR/CASE MANAGER BASIC METABOLIC PANEL Routine 08/01/2024 6:03 AM CORRECTIONAL COUNSELOR/CASE MANAGER EGFR Routine 07/31/2024 8:40 AM CORRECTIONAL COUNSELOR/CASE MANAGER BASIC METABOLIC PANEL Routine 07/31/2024 8:40 AM CORRECTIONAL COUNSELOR/CASE MANAGER from Last 3 Months Allergies Active Allergy Reactions Criticality Noted Date Comments Aftab Inhibitors Angioedema High 08/09/2021 Azithromycin Agitation Low 08/09/2021 Grass Pollen Sneezing Low 03/23/2022 Medications Jennifer-Silvia 0.8 mg tabletIndications:Vi tamin Deficiency Prevention Take 0.8 mg by mouth daily Active sevelamer (RENVELA) 800 mg tabletIndications:Re nal Osteodystrophy with Hyperphosphatemia Take 1 tablet (800 mg total) by mouth 3 (three) times a day with meals Active levothyroxine (SYNTHROID) 25 mcg tabletIndications:hy pothyroidism Take 1 tablet (25 mcg total) by mouth daily Active calcitRIOL (ROCALTROL) 0.5 mcg capsuleIndications:h ypocalcemia Take 0.25 mcg by mouth daily ONE TAB THREE DAYS A WEEK AND 2 TABS FOUR DAYS A WEEK Active midodrine (PROAMATINE) 5 mg tabletIndications:Sy mptomatic Orthostatic Hypotension Take 3 tablets (15 mg total) by mouth 3 (three) times a day before meals 810 tablet [address] (PROTONIX) 40 mg EC tabletIndications:Tr eatment of Non-Bleeding Gastric Disorder Take 1 tablet (40 mg total) by mouth daily 30 tablet Active metoprolol XL (TOPROL-XL) 25 mg extended release tablet Take 1 tablet (25 mg total) by mouth nightly 30 tablet 3 025 2025 Active gentamicin (GARAMYCIN) 0.1 % creamIndications:Inf ection Prophylaxis Apply topically daily 15 g Active apixaban (ELIQUIS) 5 mg tabletIndications:at rial fibrillation Take 1 tablet (5 mg total) by mouth every 12 (twelve) hours 180 tablet 3 025 2025 Active furosemide (LASIX) 80 mg tablet Take 1 tablet (80 mg total) by mouth as needed Active potassium chloride ER 10 mEq CR tablet Take 1 tablet/capsu le (10 mEq total) by mouth daily Active amiodarone (PACERONE) 200 mg tabletIndications:Pr evention of Recurrent Atrial Fibrillation Take 2 tablets (400 mg total) by mouth daily 180 tablet 3 025 2025 Active furosemide (LASIX) 80 mg tabletIndications:Re nal Disease with Edema Take 1 tablet (80 mg total) by mouth 2 (two) times a day rx #[id number] 2024 Discontinued(D uplicate order) losartan (COZAAR) 50 mg tablet Take 1 tablet (50 mg total) by mouth daily 30 tablet 3 025 2024 Discontinued(T herapy completed) amiodarone (PACERONE) 200 mg tabletIndications:Pr evention of Recurrent Atrial Fibrillation Take 1 tablet (200 mg total) by mouth daily 90 tablet 3 025 2024 Discontinued Active Problems Problem Noted Date Diagnosed Date [...] materials from doctor or pharmacy Sometimes 08/07/2024 [facility] Utilities Answer Date Recorded In the past 12 months has [employer], gas, oil, or water deeplocal threatened to shut off services in your [...] How often do you attend chur or congregational services? Patient declined 07/26/2024 Do you belong to any clubs o r organizations such as advent groups, unions, fraternal or athletic groups, or [...] staff should administer the PHQ-9) 0 08/21/2024 [facility] - Occupational Stress [...] any time in the past 12 m [facility], were you homeless or living in a skilled nursing (including now)? No 07/26/2024 Personal Safety Answer Date Recorded Have you ever been in or are you currently in a harmful physical or emotional relationship or is someone making you feel afraid or unsafe? Denies 08/21/2024 Comments Unknown Sex and Gender Information Value Date Recorded Sex Assigned at Not on file 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 CORRECTIONAL COUNSELOR/CASE MANAGER Gender Identity Not on file Sexual Orientation Not on file Last Filed Vital Signs Vital Sign Reading Time Taken Comments Blood Pressure 80/58 10/10/2024 2:37 PM CDT Pulse 117 10/10/2024 2:37 PM CDT Temperature 36.8 C (98.3 F) 08/26/2024 3:53 PM CORRECTIONAL COUNSELOR/CASE MANAGER Respiratory Rate 18 08/26/2024 3:53 PM CORRECTIONAL COUNSELOR/CASE MANAGER Oxygen Saturation 97% 10/10/2024 2:37 PM CDT Inhaled Oxygen Concentration - - Weight 88.5 kg (195 lb) 10/10/2024 2:37 PM CDT Height 152.4 cm (5') 10/10/2024 2:37 PM CDT Body Mass Index 38.08 10/10/2024 2:37 PM CDT Results * POCT lipid panel (10/10/2024 4:22 PM CDT) Cholesterol, POC 239 mg/dL Comment:GLU = 119 HDL, POC N/A mg/dL Triglycerides, POC >650 mg/dL LDL Cholesterol POC N/A mg/dL Chol/HDL Ratio, POC N/A Non-HDL Cholesterol, POC N/A mg/dL Cholesterol Total, POC 239 mg/dL Capillary blood 10/10/2024 4 :22 PM CDT Lydia Lewis NP POINT OF CARE TEST ORDERA BLES Final Result * Electrocardiogram Report (10/10/2024 4:08 PM CDT) Lydia Lewis NP ECG ORDERABLES Final Res ult * (ABNORMAL) Differential, auto (08/26/2024 2:36 AM CORRECTIONAL COUNSELOR/CASE MANAGER) Neutrophil abs 7.6(H) 1.5 - 6.5 K/cumm Imm gran abs 0.1 0.0 - 0.1 K/cumm [facility] Lymphocyte abs 0.6(L) 0.8 - 3.3 K/cumm [facility] Monocyte abs 1.3(H) 0.2 - 0.8 K/cumm [facility] Eosinophil abs 0.2 0.0 - 0.5 K/cumm [facility] Basophil abs 0.1 0.0 - 0.1 K/cumm [facility] Neutrophil pct 77.1 % [facility] Comment: Interpretive Data Percent cell count reference ranges are not reported, since discordance with absolute values may lead to misinterpretation of CBC data. Current Interpretive Data was last revised on 2017. Imm gran pct 1.3 % [facility] Comment: Interpretive Data Percent cell count reference ranges are not reported, since discordance with absolute values may lead to misinterpretation of CBC data. Current Interpretive Data was last revised on 2017. Lymphocyte pct 5.7 % [facility] Comment: Interpretive Data Percent cell count reference ranges are not reported, since discordance with absolute values may lead to misinterpretation of CBC data. Current Interpretive Data was last revised on 2017. Monocyte pct 13.0 % [facility] Comment: Interpretive Data Percent cell count reference ranges are not reported, since discordance with absolute values may lead to misinterpretation of CBC data. Current Interpretive Data was last revised on 2017. Eosinophil pct 2.3 % [facility] Comment: Interpretive Data Percent cell count reference ranges are not reported, since discordance with absolute values may lead to misinterpretation of CBC data. Current Interpretive Data was last revised on 2017. Basophil pct 0.6 % [facility] Comment: Interpretive Data Percent cell count reference ranges are not reported, since discordance with absolute values may lead to misinterpretation of CBC data. Current Interpretive Data was last revised on 2017. Blood 08/26/2024 2:36 AM CORRECTIONAL COUNSELOR/CASE MANAGER 08/26/2024 4:06 AM CORRECTIONAL COUNSELOR/CASE MANAGER Bobby Ya MD LAB BLOOD ORDERABLES Final Result [facility] [address] [place] [address] * (ABNORMAL) CBC with auto differential (08/26/2024 2:36 AM CORRECTIONAL COUNSELOR/CASE MANAGER) WBC 9.9 3.8 - 9.9 K/cumm Hgb 7.2(L) 11.9 - 15.5 g/dL [facility] Hct 24.2(L) 35.6 - 45.5 % [facility] Plt 383 150 - 400 K/cumm [facility] MPV 8.7(L) 9.1 - 12.3 fL [facility] RBC 2.36(L) 3.90 - 5.20 M/cumm [facility] MCV 102.5(H) 81.3 - 96.4 fL [facility] MCH 30.5 27.1 - 33.3 pg [facility] MCHC 29.8(L) 32.3 - 35.7 g/dL [facility] RDW CV 15.9(H) 11.1 - 14.9 % [facility] RDW SD 58.7(H) 35.7 - 48.1 fL [facility] NRBC abs 0.00 0.00 - 0.01 K/cumm [facility] Blood 08/26/2024 2:36 AM CORRECTIONAL COUNSELOR/CASE MANAGER 08/26/2024 4:06 AM CORRECTIONAL COUNSELOR/CASE MANAGER Bobby Ya MD LAB BLOOD ORDERABLES Final Result [facility] [address] [place] [address] * XR Chest 1 Vw Portable (08/25/2024 3:10 PM CORRECTIONAL COUNSELOR/CASE MANAGER) Anatomical Region Laterality Modality Body, Chest N/A Computed Radiogr aphy 08/25/2024 3:29 PM CORRECTIONAL COUNSELOR/CASE MANAGER Impressions 08/25/2024 3:29 PM CORRECTIONAL COUNSELOR/CASE MANAGER FINDINGS/IMPRESSION: Small bilateral pleural effusions. No consolidation. Borderline cardiomegaly. No acute osseous abnormality. Electronically signed by: Peter Porter II, D.O. Narrative 08/25/2024 3:29 PM CORRECTIONAL COUNSELOR/CASE MANAGER EXAMINATION: XR CHEST 1 VIEW DATE: 08/25/2024 2:10 PM INDICATION: Thoracentesis. COMPARISON: 09/17/2024. Procedure Note Peter Porter II, DO - 08/25/2024 EXAMINATION: XR CHEST 1 VIEW DATE: 08/25/2024 2:10 PM INDICATION: Thoracentesis. COMPARISON: 09/17/2024. IMPRESSION: FINDINGS/IMPRESSION: Small bilateral pleural effusions. No consolidation. Borderline cardiomegaly. No acute osseous abnormality. Electronically signed by: Susy Rodgers IIOJessie Charles Hendrickson MD IMG XR PROCEDURES Final Result * Cell Differential, Body Fluid (08/25/2024 2:32 PM CORRECTIONAL COUNSELOR/CASE MANAGER) Total cells diffed 82 % Comment: Interpretive [...] % [facility] Fluid 08/25/2024 2:32 PM CORRECTIONAL COUNSELOR/CASE MANAGER 08/25/2024 2:32 PM CORRECTIONAL COUNSELOR/CASE MANAGER Charles Hendrickson MD LAB BODY FLUIDS AND STO OLS ORDERABLES Final Result [facility] [address] [place] [address] * Cell count w/rflx diff, body fluid (08/25/2024 2:32 PM CORRECTIONAL COUNSELOR/CASE MANAGER) Specimen type, fld Pleural Body site, fld [...] /cumm [facility] Fluid 08/25/2024 2:32 PM CORRECTIONAL COUNSELOR/CASE MANAGER 08/25/2024 2:32 PM CORRECTIONAL COUNSELOR/CASE MANAGER Charles Hendrickson MD LAB BODY FLUIDS AND STO OLS ORDERABLES Final Result Performing Organization Address City/[facility]/ZIP Co de Phone Number [facility] [address] [employer] [place], [place] [id number] * Protein, body fluid (08/25/2024 2:32 PM CORRECTIONAL COUNSELOR/CASE MANAGER) Specimen type, fld Pleural Comment:Testing performed by : [facility], [address] [place] [address] Body site, fld Pleural fluid, left [facility] Comment:Testing performed by : [facility], [address] [place] [address] Protein, fld 3.5 g/dL [facility] Comment: The above specimen type is not [...] was last revised 2019. Testing performed by: [facility], [address] [place]., [address] Fluid 08/25/2024 2:32 PM CORRECTIONAL COUNSELOR/CASE MANAGER 08/25/2024 5:52 PM CORRECTIONAL COUNSELOR/CASE MANAGER Charles Hendrickson MD LAB BODY FLUIDS AND STO OLS ORDERABLES Final Result Performing Organization Address City/[facility]/ZIP Co de Phone Number [facility] [address] [employer] [place], [place] [id number] * Lactate dehydrogenase, body fluid (08/25/2024 2:32 PM CORRECTIONAL COUNSELOR/CASE MANAGER) Specimen type, fld Pleural Comment:Testing performed by : [facility], [address] [place] [address] Body site, fld Pleural fluid, left [facility] Comment:Testing performed by : [facility], [address] [place]., [address] LD, fld 151 Units/L [facility] Comment: The above specimen type is not [...] was last revised 2019. Testing performed by: [facility], [address] [place]., [address] Fluid 08/25/2024 2:32 PM CORRECTIONAL COUNSELOR/CASE MANAGER 08/25/2024 5:52 PM CORRECTIONAL COUNSELOR/CASE MANAGER Charles Hendrickson MD LAB BODY FLUIDS AND STO OLS ORDERABLES Final Result [facility] [address] [place] [address] * Glucose, body fluid (08/25/2024 2:32 PM CORRECTIONAL COUNSELOR/CASE MANAGER) Specimen type, fld Pleural Comment:Testing performed by : [facility], [address] [place] [address] Body site, fld Pleural fluid, left [facility] Comment:Testing performed by : [facility], [address] [place] [address] Glucose, fld 109 mg/dL [facility] Comment: [...] and Management. Meir Clin J Med 2005;72:854-72. 4-Tell Test directory, Body Fluid Reference Intervals and/or Interpretative Information. [email or web address] Danika COUCH et al. Pancreatic cyst fluid glucose: rapid, inexpensive, and accurate diagnosis of mucinous pancreatic cysts. Surgery 2018;163:600-5. Mohsen DG et al. Differential diagnosis of pancreatic cysts: A prospective study on the role of intra-cystic glucose concentration. Digestive Liver Dis 2020;52:1026-32. Current Interpretive Data was last revised 2021. Testing performed by: [facility], [address] [facility] [place] [address] Fluid 08/25/2024 2:32 PM CORRECTIONAL COUNSELOR/CASE MANAGER 08/25/2024 5:52 PM CORRECTIONAL COUNSELOR/CASE MANAGER Narrative [facility] - 08/25/2024 7:28 PM CORRECTIONAL COUNSELOR/CASE MANAGER Body Fluid Type->Pleural us Charles Hendrickson MD LAB BODY FLUIDS AND STO OLS ORDERABLES Final Result [facility] [address] Department [place] [address] * Amylase, body fluid (08/25/2024 2:32 PM CORRECTIONAL COUNSELOR/CASE MANAGER) Specimen type, fld Pleural fluid, left Comment:Testing performed by : [facility], [address] [place]., [address] Amylase, fld <30 Units/L [facility] Comment: [...] 2018. Chapter 43, Body Fluids, p. 925 4-Tell Test directory, Body Fluid Reference Intervals and/or Interpretative Information. [email or web address] Current Interpretive Data was last revised 2019. Testing performed by: [facility], [address] [facility], [place]., [address] Fluid 08/25/2024 2:32 PM CORRECTIONAL COUNSELOR/CASE MANAGER 08/25/2024 5:52 PM CORRECTIONAL COUNSELOR/CASE MANAGER Charles Hendrickson MD LAB BODY FLUIDS AND STO OLS ORDERABLES Final Result [facility] [address] [place] [address] * XR Chest PA Lateral 2 Views (08/25/2024 8:27 AM CORRECTIONAL COUNSELOR/CASE MANAGER) Anatomical Region Laterality Modality Body, Chest N/A Computed Radiogr aphy 08/25/2024 8:52 AM CORRECTIONAL COUNSELOR/CASE MANAGER Impressions 08/25/2024 8:52 AM CORRECTIONAL COUNSELOR/CASE MANAGER PERSISTENT PLEURAL EFFUSIONS LARGER ON THE LEFT THAN THE RIGHT. MILD FLUID OVERLOAD Electronically signed by: Bryant Alvarez M.D. Narrative 08/25/2024 8:52 AM CORRECTIONAL COUNSELOR/CASE MANAGER EXAMINATION: XR CHEST PA LATERAL 2 VIEWS [...] * (ABNORMAL) Differential, auto (08/25/2024 3:03 AM CORRECTIONAL COUNSELOR/CASE MANAGER) Neutrophil abs 7.4(H) 1.5 - 6.5 K/cumm Imm gran abs 0.1 0.0 - 0.1 K/cumm [facility] Lymphocyte abs 0.6(L) 0.8 - 3.3 K/cumm [facility] Monocyte abs 1.3(H) 0.2 - 0.8 K/cumm [facility] Eosinophil abs 0.3 0.0 - 0.5 K/cumm [facility] Basophil abs 0.1 0.0 - 0.1 K/cumm [facility] Neutrophil pct 75.8 % [facility] Comment: Interpretive [...] revised on 2017. Monocyte pct 13.3 % [facility] Comment: Interpretive Data Percent cell count reference [...] revised on 2017. Basophil pct 0.6 % [facility] Comment: Interpretive Data Percent cell count reference ranges are not reported, since discordance with absolute values may lead to misinterpretation of CBC data. Current Interpretive Data was last revised on 2017. Blood 08/25/2024 3:03 AM CORRECTIONAL COUNSELOR/CASE MANAGER 08/25/2024 4:15 AM CORRECTIONAL COUNSELOR/CASE MANAGER Bobby Ya MD LAB BLOOD ORDERABLES Final Result [facility] [address] [place] [address] * (ABNORMAL) CBC with auto differential (08/25/2024 3:03 AM CORRECTIONAL COUNSELOR/CASE MANAGER) WBC 9.8 3.8 - 9.9 K/cumm Hgb 7.3(L) 11.9 - 15.5 g/dL [facility] Hct 24.3(L) 35.6 - 45.5 % [facility] Plt 424(H) 150 - 400 K/cumm [facility] MPV 8.6(L) 9.1 - 12.3 fL [facility] RBC 2.36(L) 3.90 - 5.20 M/cumm [facility] MCV 103.0(H) 81.3 - 96.4 fL [facility] MCH 30.9 27.1 - 33.3 pg [facility] MCHC 30.0(L) 32.3 - 35.7 g/dL [facility] RDW CV 16.2(H) 11.1 - 14.9 % [facility] RDW SD 61.8(H) 35.7 - 48.1 fL [facility] NRBC abs 0.00 0.00 - 0.01 K/cumm [facility] Blood 08/25/2024 3:03 AM CORRECTIONAL COUNSELOR/CASE MANAGER 08/25/2024 4:15 AM CORRECTIONAL COUNSELOR/CASE MANAGER Bobby Ya MD LAB BLOOD ORDERABLES Final Result Performing Organization Address City/State/[facility] Co de Phone Number [address] [place] [address] * Cytology (08/25/2024 12:00 AM CORRECTIONAL COUNSELOR/CASE MANAGER) Fluid (Pleura (Cytology)) 08/25/2024 08/25/2024 2:53 PM CORRECTIONAL COUNSELOR/CASE MANAGER Narrative PATHOLOGY - 08/27/2024 12:43 PM CORRECTIONAL COUNSELOR/CASE MANAGER EPIC results best viewed via link to PDF [facility] Department of Pathology [address] [place] [id number] Note to Patients: This report may [...] Final Report Patient Name: DORY NOBLE Address: [address] [place] [address] Gender: F : 1960 (Age: 63) Service: Medical Location: [facility] # [id number] Patient Type: [facility] Taken: 08/25/2024 Received: 08/25/2024 Accessioned: 08/25/2024 Reported: [...] determined by the Surgical Pathology Department at [facility] as part of an ongoing quality improvement manager program and in compliance with federally mandated [...] determined by the Surgical Pathology Department [facility]. It has not been cleared or approved by the U. S. Food and Drug Administration. Unless otherwise noted all cytology processing, staining and screening is performed at [facility] ([address] [place] [address]). REPORT IMAGES AND SCANNED DOCUMENTS, IF INCLUDED, ONLY VIEWABLE IN PDF VERSION OF REPORT Charles Hendrickson MD LAB CYTOLOGY ORDERABLES Final Result PATHOLOGY [address] [place] [address] * (ABNORMAL) Differential, auto (08/24/2024 4:34 AM CORRECTIONAL COUNSELOR/CASE MANAGER) Neutrophil abs 7.9(H) 1.5 - 6.5 K/cumm [...] on 2017. Imm gran pct 1.4 % [facility] Comment: Interpretive Data Percent cell [...] revised on 2017. Blood 08/24/2024 4:34 AM CORRECTIONAL COUNSELOR/CASE MANAGER 08/24/2024 4:49 AM CORRECTIONAL COUNSELOR/CASE MANAGER Bobby Ya MD LAB BLOOD ORDERABLES Final Result [facility] [address] Department [place] [address] * (ABNORMAL) CBC with auto differential (08/24/2024 4:34 AM CORRECTIONAL COUNSELOR/CASE MANAGER) WBC 10.3(H) 3.8 - 9.9 K/cumm Hgb 7.0(L) 11.9 - 15.5 g/dL [facility] Hct 23.3(L) 35.6 - 45.5 % [facility] Plt 410(H) 150 - 400 K/cumm [facility] MPV 8.4(L) 9.1 - 12.3 fL [facility] RBC 2.24(L) 3.90 - 5.20 M/cumm [facility] MCV 104.0(H) 81.3 - 96.4 fL [facility] MCH 31.3 27.1 - 33.3 pg [facility] MCHC 30.0(L) 32.3 - 35.7 g/dL [facility] RDW CV 16.7(H) 11.1 - 14.9 % [facility] RDW SD 64.5(H) 35.7 - 48.1 fL [facility] NRBC abs 0.00 0.00 - 0.01 K/cumm [facility] Blood 08/24/2024 4:34 AM CORRECTIONAL COUNSELOR/CASE MANAGER 08/24/2024 4:49 AM CORRECTIONAL COUNSELOR/CASE MANAGER Bobby Ya MD LAB BLOOD ORDERABLES Final Result [facility] [address] [place] [address] * (ABNORMAL) eGFR (08/22/2024 9:54 AM CORRECTIONAL COUNSELOR/CASE MANAGER) Pathologist [facility] eGFR 3(L) >=60 mL/min/1. 73 m2 Comment: [...] last reviewed 2021. Blood 08/22/2024 9:54 AM CORRECTIONAL COUNSELOR/CASE MANAGER 08/22/2024 10:37 AM CORRECTIONAL COUNSELOR/CASE MANAGER us Kala Barbosa NP LAB BLOOD ORDERABLES Final R esult [facility] [address] [place] [address] * (ABNORMAL) Differential, auto (08/22/2024 9:54 AM CORRECTIONAL COUNSELOR/CASE MANAGER) Neutrophil abs 9.3(H) 1.5 - 6.5 K/cumm Imm gran abs 0.2(H) 0.0 - 0.1 K/cumm [facility] Lymphocyte abs 0.7(L) 0.8 - 3.3 K/cumm [facility] Monocyte abs 1.2(H) 0.2 - 0.8 K/cumm [facility] Eosinophil abs 0.3 0.0 - 0.5 K/cumm [facility] Basophil abs 0.1 0.0 - 0.1 K/cumm [facility] Neutrophil pct 79.3 % [facility] Comment: Interpretive Data Percent cell count reference ranges are not reported, since discordance with absolute values may lead to misinterpretation of CBC data. Current Interpretive Data was last revised on 2017. Imm gran pct 1.3 % [facility] Comment: Interpretive Data Percent cell count reference ranges are not reported, since discordance with absolute values may lead to misinterpretation of CBC data. Current Interpretive Data was last revised on 2017. Lymphocyte pct 5.7 % [facility] Comment: Interpretive Data Percent cell count reference ranges are not reported, since discordance with absolute values may lead to misinterpretation of CBC data. Current Interpretive Data was last revised on 2017. Monocyte pct 10.4 % [facility] Comment: Interpretive Data Percent cell count reference ranges are not reported, since discordance with absolute values may lead to misinterpretation of CBC data. Current Interpretive Data was last revised on 2017. Eosinophil pct 2.7 % [facility] Comment: Interpretive Data Percent cell count reference ranges are not reported, since discordance with absolute values may lead to misinterpretation of CBC data. Current Interpretive Data was last revised on 2017. Basophil pct 0.6 % [facility] Comment: Interpretive Data Percent cell count reference ranges are not reported, since discordance with absolute values may lead to misinterpretation of CBC data. Current Interpretive Data was last revised on 2017. Blood 08/22/2024 9:54 AM CORRECTIONAL COUNSELOR/CASE MANAGER 08/22/2024 10:36 AM CORRECTIONAL COUNSELOR/CASE MANAGER us Kala Barbosa NP LAB BLOOD ORDERABLES Final R esult [facility] [address] Department [place] [address] * (ABNORMAL) CBC with auto differential (08/22/2024 9:54 AM CORRECTIONAL COUNSELOR/CASE MANAGER) WBC 11.7(H) 3.8 - 9.9 K/cumm Hgb 7.4(L) 11.9 - 15.5 g/dL [facility] Hct 24.6(L) 35.6 - 45.5 % [facility] Plt 462(H) 150 - 400 K/cumm [facility] MPV 8.5(L) 9.1 - 12.3 fL [facility] RBC 2.37(L) 3.90 - 5.20 M/cumm [facility] MCV 103.8(H) 81.3 - 96.4 fL [facility] MCH 31.2 27.1 - 33.3 pg [facility] MCHC 30.1(L) 32.3 - 35.7 g/dL [facility] RDW CV 18.0(H) 11.1 - 14.9 % [facility] RDW SD 67.7(H) 35.7 - 48.1 fL [facility] NRBC abs 0.00 0.00 - 0.01 K/cumm [facility] Blood 08/22/2024 9:54 AM CORRECTIONAL COUNSELOR/CASE MANAGER 08/22/2024 10:36 AM CORRECTIONAL COUNSELOR/CASE MANAGER us Kala Barbosa NP LAB BLOOD ORDERABLES Final R esult [facility] [address] [place] [address] * (ABNORMAL) Comprehensive metabolic panel (08/22/2024 9:54 AM CORRECTIONAL COUNSELOR/CASE MANAGER) Sodium 137 135 - 145 mmol/L Potassium, [...] Units/L [facility] Blood 08/22/2024 9:54 AM CORRECTIONAL COUNSELOR/CASE MANAGER 08/22/2024 10:37 AM CORRECTIONAL COUNSELOR/CASE MANAGER us Kala Barbosa NP LAB BLOOD ORDERABLES Final R esult [facility] [address] [place] [address] * (ABNORMAL) Urinalysis reflex to microscopic and culture Urine, clean voided (08/21/2024 6:01 PM CORRECTIONAL COUNSELOR/CASE MANAGER) Color, ur Mitzi Yellow Clarity, ur [...] tendency for uric acid stone formation. Source: [facility] [employer] Current Interpretive Data was last revised on [...] CH Urine, clean voided 08/21/2024 6:01 PM CORRECTIONAL COUNSELOR/CASE MANAGER 08/21/2024 6:06 PM CORRECTIONAL COUNSELOR/CASE MANAGER Bobby Ya MD LAB MICROBIOLOGY - GENERAL ORDERABLES Final Result Performing Organization Address [facility] Co de Phone Number LAINE KRISTIAN [address] [facility] [place] [address] * (ABNORMAL) Urinalysis, microscopic only (08/21/2024 6:01 PM CORRECTIONAL COUNSELOR/CASE MANAGER) WBC, ur >50(A) 0 - 5 /HPF RBC, ur >50(A) 0 - 2 /HPF [facility] Epithelial cells, squamous, ur 21-50(A) 0 - 5 /HPF [facility] Culture Reflex Comment Reflex to urine culture will be performed. [facility] Urine, clean voided 08/21/2024 6:01 PM CORRECTIONAL COUNSELOR/CASE MANAGER 08/21/2024 6:06 PM CORRECTIONAL COUNSELOR/CASE MANAGER Bobby Ya MD LAB URINE ORDERABLES Final Result Performing Organization Address [facility] de Phone Number LAINE KRISTIAN [phone] [place] [address] * Urine culture Urine, clean voided (08/21/2024 6:01 PM CORRECTIONAL COUNSELOR/CASE MANAGER) Report Final Report: Less than 100,000 colonies/mL (clinically insignificant growth based on current clinical standards) Comment:Testing performed by : [facility], [address] [place]., [address] Organism (CLINICALLY INSIGNIFICANT GROWTH [facility] Urine, clean voided 08/21/2024 6:01 PM CORRECTIONAL COUNSELOR/CASE MANAGER 08/21/2024 8:14 PM CORRECTIONAL COUNSELOR/CASE MANAGER Narrative [facility] - 08/23/2024 7:20 AM CORRECTIONAL COUNSELOR/CASE MANAGER Urine culture reflexed based upon urinalysis results. Testing performed by [facility] Microbiology Laboratory ([phone]) Bobby Ya MD LAB MICROBIOLOGY - GENERAL ORDERABLES Final Result Performing Organization Address [facility] Co de Phone Number LAINE TOWNSEND [phone] Department [place] [address] * CT Chest Abdomen Pelvis WO Contrast (08/21/2024 4:56 PM CORRECTIONAL COUNSELOR/CASE MANAGER) Anatomical Region Laterality Modality Body N/A Computed Tomogra phy 08/21/2024 5:31 PM CORRECTIONAL COUNSELOR/CASE MANAGER Impressions 08/22/2024 2:24 PM CORRECTIONAL COUNSELOR/CASE MANAGER Moderate loculated left pleural effusion with left [...] Priscila Ochoa M.D. Narrative 08/22/2024 2:24 PM CORRECTIONAL COUNSELOR/CASE MANAGER EXAM: CT CHEST, ABDOMEN AND PELVIS WITHOUT [...] noted without pericardial effusion..Atherosclerotic nonaneurysmal aorta with [id number] calcified plaque and mild aortic valvular calcification [...] noted without pericardial effusion..Atherosclerotic nonaneurysmal aorta with [id number] calcified plaque and mild aortic valvular calcification [...] Iron profile w/ IBC (08/21/2024 7:44 AM CORRECTIONAL COUNSELOR/CASE MANAGER) Iron 164(H) 35 - 145 mcg/dl TIBC 254 250 - 400 mcg/dL [facility] Transferrin saturation 65(H) 20 - 50 % [facility] Blood 08/21/2024 7:44 AM CORRECTIONAL COUNSELOR/CASE MANAGER 08/21/2024 9:19 AM CORRECTIONAL COUNSELOR/CASE MANAGER Kala Barbosa NP LAB BLOOD ORDERABLES Final R esult [facility] TOWNSEND [address] [place] [address] * Blood culture Blood (08/21/2024 7:44 AM CORRECTIONAL COUNSELOR/CASE MANAGER) Report Final Report: No growth Comment:Testing performed by : [facility], [address], [place]., [address] Blood 08/21/2024 7:44 AM CORRECTIONAL COUNSELOR/CASE MANAGER 08/21/2024 12:57 PM CORRECTIONAL COUNSELOR/CASE MANAGER Narrative LAINE - 08/25/2024 4:00 PM CORRECTIONAL COUNSELOR/CASE MANAGER From a different site than #1. [...] performance characteristics have been verified by the [facility]. For questions about this culture, contact the Microbiology Laboratory at [phone]. Interpretive data was last revised on 24. Kala Barbosa NP LAB MICROBIOLOGY - GENERAL O RDERABLES Final Result Performing Organization Address City/[facility]/ZIP Co de Phone Number LAINE TOWNSEND [address] Department [place] [address] * Blood culture Blood (08/21/2024 7:44 AM CORRECTIONAL COUNSELOR/CASE MANAGER) Report Final Report: No growth Comment:Testing performed by : [facility], [address], [place]., [address] Blood 08/21/2024 7:44 AM CORRECTIONAL COUNSELOR/CASE MANAGER 08/21/2024 12:57 PM CORRECTIONAL COUNSELOR/CASE MANAGER Narrative LAINE TOWNSEND - 08/25/2024 4:00 PM CORRECTIONAL COUNSELOR/CASE MANAGER Collection->Peripheral 1. Blood cultures are incubated for [...] performance characteristics have been verified by the [facility]. For questions about this culture, contact the Microbiology Laboratory at [phone]. Interpretive data was last revised on 24. Kala Barbosa NP LAB MICROBIOLOGY - GENERAL O RDERABLES Final Result [facility] [address] [place] [address] * Folate (08/21/2024 7:44 AM CORRECTIONAL COUNSELOR/CASE MANAGER) Folic acid >20.0 >=5.0 ng/mL Comment:Hemolysis present. R esults may be affected. Blood 08/21/2024 7:44 AM CORRECTIONAL COUNSELOR/CASE MANAGER 08/21/2024 9:19 AM CORRECTIONAL COUNSELOR/CASE MANAGER Kala Barbosa NP LAB BLOOD ORDERABLES Final R esult Performing Organization Address City/[facility]/ZIP Co de Phone Number LAINE TOWNSEND [address] [facility] [place] [address] * (ABNORMAL) Vitamin B12 (08/21/2024 7:44 AM CORRECTIONAL COUNSELOR/CASE MANAGER) Vitamin B12 1,704(H) 230 - 1,250 pg/mL Blood 08/21/2024 7:44 AM CORRECTIONAL COUNSELOR/CASE MANAGER 08/21/2024 9:19 AM CORRECTIONAL COUNSELOR/CASE MANAGER [facility]LO[facility] ORDERABLES Final R esult Performing Organization Address [facility] Co de Phone Number LAINE TOWNSEND [address] [facility] [place] [address] * (ABNORMAL) eGFR (08/21/2024 2:52 AM CORRECTIONAL COUNSELOR/CASE MANAGER) Pathologist [facility] eGFR 4(L) >=60 mL/min/1. 73 m2 Comment: [...] last reviewed 2021. Blood 08/21/2024 2:52 AM CORRECTIONAL COUNSELOR/CASE MANAGER 08/21/2024 3:17 AM CORRECTIONAL COUNSELOR/CASE MANAGER Kala Tomlinlovin LAB BLOOD ORDERABLES Final R esult [facility] [address] Department [place] [address] * (ABNORMAL) Differential, auto (08/21/2024 2:52 AM CORRECTIONAL COUNSELOR/CASE MANAGER) Neutrophil abs 9.6(H) 1.5 - 6.5 K/cumm Imm gran abs 0.2(H) 0.0 - 0.1 K/cumm [facility] Lymphocyte abs 1.0 0.8 - 3.3 K/cumm [facility] Monocyte abs 1.4(H) 0.2 - 0.8 K/cumm [facility] Eosinophil abs 0.3 0.0 - 0.5 K/cumm [facility] Basophil abs 0.1 0.0 - 0.1 K/cumm [facility] Neutrophil pct 76.2 % [facility] Comment: Interpretive Data Percent cell count reference ranges are not reported, since discordance with absolute values may lead to misinterpretation of CBC data. Current Interpretive Data was last revised on 2017. Imm gran pct 1.4 % [facility] Comment: Interpretive Data Percent cell count reference ranges are not reported, since discordance with absolute values may lead to misinterpretation of CBC data. Current Interpretive Data was last revised on 2017. Lymphocyte pct 8.2 % [facility] Comment: Interpretive Data Percent cell count reference ranges are not reported, since discordance with absolute values may lead to misinterpretation of CBC data. Current Interpretive Data was last revised on 2017. Monocyte pct 11.4 % [facility] Comment: Interpretive Data Percent cell count reference ranges are not reported, since discordance with absolute values may lead to misinterpretation of CBC data. Current Interpretive Data was last revised on 2017. Eosinophil pct 2.1 % [facility] Comment: Interpretive Data Percent cell count reference ranges are not reported, since discordance with absolute values may lead to misinterpretation of CBC data. Current Interpretive Data was last revised on 2017. Basophil pct 0.7 % [facility] Comment: Interpretive Data Percent cell count reference ranges are not reported, since discordance with absolute values may lead to misinterpretation of CBC data. Current Interpretive Data was last revised on 2017. Blood 08/21/2024 2:52 AM CORRECTIONAL COUNSELOR/CASE MANAGER 08/21/2024 3:18 AM CORRECTIONAL COUNSELOR/CASE MANAGER Kala Barbosa NP LAB BLOOD ORDERABLES Final R esult [facility] [address] [place] [address] * (ABNORMAL) CBC with auto differential (08/21/2024 2:52 AM CORRECTIONAL COUNSELOR/CASE MANAGER) WBC 12.6(H) 3.8 - 9.9 K/cumm Hgb [...] K/cumm [facility] Blood 08/21/2024 2:52 AM CORRECTIONAL COUNSELOR/CASE MANAGER 08/21/2024 3:18 AM CORRECTIONAL COUNSELOR/CASE MANAGER Kala Barbosa NP LAB BLOOD ORDERABLES Final R esult [facility] [address] [place] [address] * (ABNORMAL) Comprehensive metabolic panel (08/21/2024 2:52 AM CORRECTIONAL COUNSELOR/CASE MANAGER) Sodium 136 135 - 145 mmol/L [...] Units/L [facility] Blood 08/21/2024 2:52 AM CORRECTIONAL COUNSELOR/CASE MANAGER 08/21/2024 3:17 AM CORRECTIONAL COUNSELOR/CASE MANAGER us Kala Barbosa NP LAB BLOOD ORDERABLES Final R esult LAINE [id number] [place] [address] * XR Chest 1 Vw Portable (08/21/2024 1:09 AM CORRECTIONAL COUNSELOR/CASE MANAGER) Anatomical Region Laterality Modality Body, Chest N/A Computed Radiogr aphy 08/21/2024 8:04 AM CORRECTIONAL COUNSELOR/CASE MANAGER Impressions 08/21/2024 8:04 AM CORRECTIONAL COUNSELOR/CASE MANAGER CARDIOMEGALY WITH CONSOLIDATING OPACITY IN THE LEFT BASE AND HAZY OPACITY IN THE RIGHT BASE WITH FLUID IN THE FISSURE. A LATERAL CHEST VIEW OR CT OF THE CHEST IS SUGGESTED TO EVALUATE THE LUNG BASES. Electronically signed by: Sulaiman Xie M.D. Narrative 08/21/2024 8:04 AM CORRECTIONAL COUNSELOR/CASE MANAGER EXAMINATION: XR CHEST 1 VIEW HISTORY: Elevated [...] signed by: Sulaiman Xie M.D. Susan Salcedo FISHERIES MANAGER IMG XR PROCEDURES Fi nal Result * (ABNORMAL) Potassium, whole blood (08/21/2024 12:48 AM CORRECTIONAL COUNSELOR/CASE MANAGER) Potassium, bld 3.1(L) 3.3 - 4.9 mmol/L Comment: Interpretive Data This method is not able to assess for hemolysis, which may falsely increase potassium concentrations. If further testing is needed to evaluate this result, consider in-laboratory plasma potassium. Current Interpretive Data was last revised on 2022. Blood 08/21/2024 12:4 8 AM CORRECTIONAL COUNSELOR/CASE MANAGER 08/21/2024 12:59 AM CORRECTIONAL COUNSELOR/CASE MANAGER Susan Salcedo NP LAB BLOOD ORDERABLES Final Result Performing Organization Address [facility] Co de Phone Number LAINE TOWNSEND [phone] [place] [address] * (ABNORMAL) Hemoglobin and hematocrit (08/21/2024 12:48 AM CORRECTIONAL COUNSELOR/CASE MANAGER) Hgb 7.2(L) 11.9 - 15.5 g/dL Hct 23.7(L) 35.6 - 45.5 % [facility] Blood 08/21/2024 12:4 8 AM CORRECTIONAL COUNSELOR/CASE MANAGER 08/21/2024 1:00 AM CORRECTIONAL COUNSELOR/CASE MANAGER Susan Salcedo NP LAB BLOOD ORDERABLES Final Result Performing Organization Address [facility] Co de Phone Number [facility] [place] [place] [address] * Transfuse RBC (08/20/2024 11:45 PM CORRECTIONAL COUNSELOR/CASE MANAGER) Blood Susan Salcedo FISHERIES MANAGER BLOOD TRANSFUSION OR DERABLES Final Result Performing Organization Address [facility] de Phone Number SUMMERSTEVE TOW[place] [place] [address] * Prepare RBC: 1 Units (08/20/2024 8:06 PM CORRECTIONAL COUNSELOR/CASE MANAGER) Product code [id number] Unit Number [id number] [facility] Product Blood Type BPOS [facility] Dispense Status PRESUMED TRANSFUSED [facility] Blood 08/20/2024 8:06 PM CORRECTIONAL COUNSELOR/CASE MANAGER Narrative [facility] - 08/21/2024 10:15 AM CORRECTIONAL COUNSELOR/CASE MANAGER Are special requirements needed? (All products are leukoreduced and CMV- safe)- >No Date required:-[id number] [facility] # of [id number] Reasons:-Hgb <7 g/dL} Susan Salcedo NP BLOOD BANK PRODUCT O RDERABLES Final Result Performing Organization Address [facility] de Phone Number LAINE [address] [facility] [place] [address] * (ABNORMAL) aPTT (08/20/2024 8:02 PM CORRECTIONAL COUNSELOR/CASE MANAGER) aPTT 53(H) 28 - 38 sec Comment: Interpretive Data Heparin therapeutic range: 66.0 - 100.0 seconds. Range based on correlation with therapeutic heparin activity range of 0.3 - 0.7 Units/mL. Current interpretive data was last revised on 2023. Blood 08/20/2024 8:02 PM CORRECTIONAL COUNSELOR/CASE MANAGER 08/20/2024 8:26 PM CORRECTIONAL COUNSELOR/CASE MANAGER Dominga KNAPP LAB BLOOD ORDERABLES Final Resu lt Performing Organization Address [facility] de Phone Number LAINE [address] [facility] [place] [address] * (ABNORMAL) Protime-INR (08/20/2024 8:02 PM CORRECTIONAL COUNSELOR/CASE MANAGER) PT 22.7(H) 9.7 - 13.0 sec INR 2.07(H) 0.90 - 1.20 LAINE Comment: Interpretive data Oral anticoagulant therapeutic ranges: Venous thromboembolism prophylaxis or treatment: 2.0-3.0 CARDIOLOGY Standard range: 2.0-3.0 High-intensity range: 2.5-3.5 Refer to indication-specific guidelines for appropriate target ranges for prosthetic heart valve replacement. Current interpretive data was last revised on 2019. Blood 08/20/2024 8:02 PM CORRECTIONAL COUNSELOR/CASE MANAGER 08/20/2024 8:26 PM CORRECTIONAL COUNSELOR/CASE MANAGER Dominga KNAPP LAB BLOOD ORDERABLES Final Resu lt Performing Organization Address [facility]/ZIP Co de Phone Number LAINE TOWNSEND [phone] [place] [address] * Type and screen (08/20/2024 8:02 PM CORRECTIONAL COUNSELOR/CASE MANAGER) Pathologist [facility] Arianna, indirect Negative ABO Rh B Positive LAINE Blood 08/20/2024 8:02 PM CORRECTIONAL COUNSELOR/CASE MANAGER 08/20/2024 8:26 PM CORRECTIONAL COUNSELOR/CASE MANAGER Narrative [facility] - 08/20/2024 9:05 PM CORRECTIONAL COUNSELOR/CASE MANAGER Has the patient had Daratumumab or Isatuximab in the past 6 months?->Unknown Dominga KNAPP LAB BLOOD BANK TEST ORDERABLES Final Result LAINE TOWNSEND [address] [place] [address] * (ABNORMAL) eGFR (08/20/2024 1:06 PM CORRECTIONAL COUNSELOR/CASE MANAGER) Pathologist [facility] eGFR 4(L) >=60 mL/min/1. 73 m2 Comment: [...] last reviewed 2021. Blood 08/20/2024 1:06 PM CORRECTIONAL COUNSELOR/CASE MANAGER 08/20/2024 1:06 PM CORRECTIONAL COUNSELOR/CASE MANAGER us Alcides KNAPP LAB BLOOD ORDERABLES Final Result [facility] [address] [place] [address] * (ABNORMAL) Differential, auto (08/20/2024 1:06 PM CORRECTIONAL COUNSELOR/CASE MANAGER) Neutrophil abs 9.9(H) 1.5 - 6.5 K/cumm Imm gran abs 0.2(H) 0.0 - 0.1 K/cumm [facility] Lymphocyte abs 0.8 0.8 - 3.3 K/cumm [facility] Monocyte abs 1.1(H) 0.2 - 0.8 K/cumm [facility] Eosinophil abs 0.3 0.0 - 0.5 K/cumm [facility] Basophil abs 0.1 0.0 - 0.1 K/cumm [facility] Neutrophil pct 80.3 % [facility] Comment: Interpretive Data Percent cell count reference ranges are not reported, since discordance with absolute values may lead to misinterpretation of CBC data. Current Interpretive Data was last revised on 2017. Imm gran pct 1.4 % [facility] Comment: Interpretive Data Percent cell count reference ranges are not reported, since discordance with absolute values may lead to misinterpretation of CBC data. Current Interpretive Data was last revised on 2017. Lymphocyte pct 6.4 % [facility] Comment: Interpretive Data Percent cell count reference ranges are not reported, since discordance with absolute values may lead to misinterpretation of CBC data. Current Interpretive Data was last revised on 2017. Monocyte pct 9.1 % [facility] Comment: Interpretive Data Percent cell count reference ranges are not reported, since discordance with absolute values may lead to misinterpretation of CBC data. Current Interpretive Data was last revised on 2017. Eosinophil pct 2.1 % [facility] Comment: Interpretive Data Percent cell count reference ranges are not reported, since discordance with absolute values may lead to misinterpretation of CBC data. Current Interpretive Data was last revised on 2017. Basophil pct 0.7 % [facility] Comment: Interpretive Data Percent cell count reference ranges are not reported, since discordance with absolute values may lead to misinterpretation of CBC data. Current Interpretive Data was last revised on 2017. Blood 08/20/2024 1:06 PM CORRECTIONAL COUNSELOR/CASE MANAGER 08/20/2024 1:06 PM CORRECTIONAL COUNSELOR/CASE MANAGER Alcides KNAPP LAB BLOOD ORDERABLES Final Result LAINE TOWNSEND [address] [place] [address] * (ABNORMAL) CBC with auto differential (08/20/2024 1:06 PM CORRECTIONAL COUNSELOR/CASE MANAGER) Pathologist [facility] WBC 12.3(H) 3.8 - 9.9 K/cumm Hgb 6.3(C) 11.9 - 15.5 g/dL [facility] Comment:Critical result call ed to and read back by MARCIAL CASTLE on 08 20 2024 at 1344 to [facility]. Hct 21.7(L) 35.6 - 45.5 % [facility] Plt 588(H) 150 - 400 K/cumm [facility] MPV 8.7(L) 9.1 - 12.3 fL [facility] RBC 2.05(L) 3.90 - 5.20 M/cumm [facility] MCV 105.9(H) 81.3 - 96.4 fL [facility] MCH 30.7 27.1 - 33.3 pg [facility] MCHC 29.0(L) 32.3 - 35.7 g/dL [facility] RDW CV 18.8(H) 11.1 - 14.9 % [facility] RDW SD 72.9(H) 35.7 - 48.1 fL [facility] NRBC abs 0.00 0.00 - 0.01 K/cumm [facility] Blood 08/20/2024 1:06 PM CORRECTIONAL COUNSELOR/CASE MANAGER 08/20/2024 1:06 PM CORRECTIONAL COUNSELOR/CASE MANAGER Alcides KNAPP LAB BLOOD ORDERABLES Final Result Performing Organization Address City/[facility]/ZIP Co de Phone Number LAINE TOWNSEND [address] Department of [employer] [place], [place] [id number] * Magnesium (08/20/2024 1:06 PM CORRECTIONAL COUNSELOR/CASE MANAGER) Magnesium 1.9 1.4 - 2.5 mg/dL Blood 08/20/2024 1:06 PM CORRECTIONAL COUNSELOR/CASE MANAGER 08/20/2024 1:06 PM CORRECTIONAL COUNSELOR/CASE MANAGER us Alcides KNAPP LAB BLOOD ORDERABLES Final Result [facility] [address] [place] [address] * (ABNORMAL) Comprehensive metabolic panel (08/20/2024 1:06 PM CORRECTIONAL COUNSELOR/CASE MANAGER) Sodium 134(L) 135 - 145 mmol/L Potassium, [...] AST 26 10 - 45 Units/L [facility] Blood 08/20/2024 1:06 PM CORRECTIONAL COUNSELOR/CASE MANAGER 08/20/2024 1:06 PM CORRECTIONAL COUNSELOR/CASE MANAGER Alcides KNAPP LAB BLOOD ORDERABLES Final Result Performing Organization Address [facility] Co de Phone Number [facility] [id number] Department [place] [address] * ECG 12 lead (08/20/2024 12:45 PM CORRECTIONAL COUNSELOR/CASE MANAGER) 08/20/2024 12:4 5 PM CORRECTIONAL COUNSELOR/CASE MANAGER Narrative [facility] - 08/20/2024 7:49 PM CORRECTIONAL COUNSELOR/CASE MANAGER Vent Rate: 117 bpm RR Interval: 511 msec IN Interval: 0 msec QRS Duration: 116 msec QT Interval: 361 msec QTC Interval: 430 msec P-R-T [place]: 0 - 8 - 210 degrees IMPRESSION: ATRIAL FIBRILLATION WITH RAPID VENTRICULAR RESPONSE MODERATE INTRAVENTRICULAR CONDUCTION DELAY [110+ ms QRS DURATION] ST DEVIATION AND MODERATE T-WAVE ABNORMALITY, CONSIDER LATERAL ISCHEMIA [-0.1+ mV T-WAVE IN I/aVL/V5/V6] ABNORMAL ECG Electronically Signed By: Dr. Noelle Joiner [facility] Alcides KNAPP ECG ORDERABLES Final Result Performing Organization Address [facility] de Phone Number [facility] [employer] [facility] * (ABNORMAL) Differential, auto (08/02/2024 5:45 AM CORRECTIONAL COUNSELOR/CASE MANAGER) Neutrophil abs 8.3(H) 1.5 - 6.5 K/cumm Imm gran abs 0.7(H) 0.0 - 0.1 K/cumm [facility] Lymphocyte abs 1.1 0.8 - 3.3 K/cumm [facility] Monocyte abs 1.9(H) 0.2 - 0.8 K/cumm [facility] Eosinophil abs 0.4 0.0 - 0.5 K/cumm [facility] Basophil abs 0.1 0.0 - 0.1 K/cumm [facility] Neutrophil pct 67.1 % [facility] Comment: Interpretive [...] revised on 2017. Blood 08/02/2024 5:45 AM CORRECTIONAL COUNSELOR/CASE MANAGER 08/02/2024 6:22 AM CORRECTIONAL COUNSELOR/CASE MANAGER Padmini Mason NP LAB BLOOD ORDERABLES nal Result [facility] [id number] Department [place] [address] * (ABNORMAL) CBC with auto differential (08/02/2024 5:45 AM CORRECTIONAL COUNSELOR/CASE MANAGER) WBC 12.4(H) 3.8 - 9.9 K/cumm Hgb 7.5(L) 11.9 - 15.5 g/dL [facility] Hct 28.7(L) 35.6 - 45.5 % [facility] Plt 402(H) 150 - 400 K/cumm [facility] MPV 11.2 9.1 - 12.3 fL [facility] RBC 2.53(L) 3.90 - 5.20 M/cumm [facility] MCV 113.4(H) 81.3 - 96.4 fL [facility] MCH 29.6 27.1 - 33.3 pg [facility] MCHC 26.1(L) 32.3 - 35.7 g/dL [facility] RDW CV 20.7(H) 11.1 - 14.9 % [facility] RDW SD 85.8(H) 35.7 - 48.1 fL [facility] NRBC abs 0.08(H) 0.00 - 0.01 K/cumm [facility] Blood 08/02/2024 5:45 AM CORRECTIONAL COUNSELOR/CASE MANAGER 08/02/2024 6:22 AM CORRECTIONAL COUNSELOR/CASE MANAGER us Padmini Mason NP LAB BLOOD ORDERABLES Fi nal Result [facility] [id number] Department of Laboratories [place], [place] [id number] * (ABNORMAL) eGFR (08/01/2024 6:03 AM CORRECTIONAL COUNSELOR/CASE MANAGER) eGFR 4(L) >=60 mL/min/1. 73 m2 [...] last reviewed 2021. Blood 08/01/2024 6:03 AM CORRECTIONAL COUNSELOR/CASE MANAGER 08/01/2024 6:37 AM CORRECTIONAL COUNSELOR/CASE MANAGER Tanisha Winter NP LAB BLOOD ORDERABLES Final Resul t [facility] [place] [id number] Department [place] [address] * (ABNORMAL) Basic metabolic panel (08/01/2024 6:03 AM CORRECTIONAL COUNSELOR/CASE MANAGER) Pathologist [facility] Sodium 136 135 - 145 mmol/L Potassium, pl 3.9 3.3 - 4.9 mmol/L [facility] Chloride 95(L) 97 - 110 mmol/L [facility] CO2 22 22 - 32 mmol/L [facility] Anion gap 19(H) 2 - 15 mmol/L [facility] BUN 66(H) 6 - 25 mg/dL [facility] Creatinine 9.73(H) 0.60 - 1.10 mg/dL [facility] Glucose 90 70 - 199 mg/dL [facility] Comment: Interpretive Data Fasting glucose >/= 126 [...] 2022. Calcium 9.1 8.5 - 10.3 mg/dL [facility] Blood 08/01/2024 6:03 AM CORRECTIONAL COUNSELOR/CASE MANAGER 08/01/2024 6:37 AM CORRECTIONAL COUNSELOR/CASE MANAGER Tanisha Winter NP LAB BLOOD ORDERABLES Final Resul t [facility] [place] [id number] [place] [address] * (ABNORMAL) eGFR (07/31/2024 8:40 AM CORRECTIONAL COUNSELOR/CASE MANAGER) Pathologist [facility] eGFR 4(L) >=60 mL/min/1. 73 m2 Comment: [...] last reviewed 2021. Blood 07/31/2024 8:40 AM CORRECTIONAL COUNSELOR/CASE MANAGER 07/31/2024 9:42 AM CORRECTIONAL COUNSELOR/CASE MANAGER us Tanisha Winter NP LAB BLOOD ORDERABLES Final Resul t [facility] [id number] Department [place] [address] * (ABNORMAL) Basic metabolic panel (07/31/2024 8:40 AM CORRECTIONAL COUNSELOR/CASE MANAGER) Sodium 139 135 - 145 mmol/L Potassium, pl 3.3 3.3 - 4.9 mmol/L [facility] Chloride 95(L) 97 - 110 mmol/L [facility] CO2 22 22 - 32 mmol/L [facility] Anion gap 22(H) 2 - 15 mmol/L [facility] BUN 62(H) 6 - 25 mg/dL [facility] Creatinine 9.53(H) 0.60 - 1.10 mg/dL [facility] Glucose 85 70 - 199 mg/dL [facility] Comment: Interpretive Data Fasting glucose >/= 126 [...] mg/dL [facility] Blood 07/31/2024 8:40 AM CORRECTIONAL COUNSELOR/CASE MANAGER 07/31/2024 9:42 AM CORRECTIONAL COUNSELOR/CASE MANAGER us Tanisha Winter NP LAB BLOOD ORDERABLES Final Resul t [facility] [place] [id number] [place] [address] from Last 3 Months
--- OUTSIDE RECORDS SUMMARY | 2024-10-28 14:32 | XMS_ITS | Referral Summary ---
Author Organization [facility] [place] [address] [place] [address] 162 [address] [place] [address] Care Team Providers Care Shear Helper Name Role Phone Mookie Dubois MD Unavailable [phone] Jama Hoskins MD Unavailable [phone] Porsche Becker NP Primary Care Provider [phone] Encounters Date Type Department Care Team Description 10/10/2024 Telephone [facility] Transplant Kidney [id number] [place] [address] Abigail Dougherty RN 10/10/2024 2:30 PM CDT Office Visit [facility] [address] [place] [address] [address] [place] [address] Lydia Lewis NP Need for lipid screening (Primary Dx); Hypotension due to hypovolemia; Persistent atrial fibrillation (HCC); Chronic anticoagulation; Preoperative cardiovascular examination 09/30/2024 Telephone [facility] [address] [place] [address] [address] [place] [address] Jama Hoskins MD 09/05/2024 Telephone [facility] [address] [place] [address] [address] [place] [address] Jama Hoskins MD 09/03/2024 Telephone [facility] Transplant Kidney [address] [facility] [address] Mailstop [phone] [place] [address] Abigail Dougherty RN 08/28/2024 Home Care Visit [address] [address] [place] [address] Lillian Campuzano, PT PT VIRTUAL NON OASIS DISCHARGE 08/20/2024 7:40 PM UPHOLSTERY CUTTER - 08/26/2024 6:54 PM UPHOLSTERY CUTTER Hospital Encounter [facility] [address] [place] [address] Mike Connell MD Myla, MD Bobby Anemia due to chronic kidney disease, on chronic dialysis (HCC) (Primary Dx) Discharge Disposition: Discharge to home or self care 08/20/2024 Home Care Visit [address] [address] [place] [address] Lillian Campuzano, PT PT OASIS TRANSFER W/OUT DC 08/20/2024 Home Care Visit [address] [place] [address] Dominga Head PTA CASE COMMUNICATION 08/20/2024 Telephone [facility] [address] [place] [address] [place] [phone] Lydia Lewis NP 08/20/2024 10:45 AM UPHOLSTERY CUTTER Home Care Visit [address] [place] [address] Dominga Head PTA PT HOME VISIT 08/20/2024 11:15 AM UPHOLSTERY CUTTER Home Care Visit [address] [place] [address] Ana Cristina Kelley COTA CASE COMMUNICATION 08/19/2024 11:30 AM UPHOLSTERY CUTTER Office Visit [facility] Cardiology [address] [place] [address] [address] [place] [phone] Lydia Lewis, JOSE C Hypotension due to hypovolemia (Primary Dx); Dilated cardiomyopathy (HCC); Persistent atrial fibrillation (HCC); Chronic anticoagulation; ESRD (end stage renal disease) on dialysis (HCC) 08/14/2024 Telephone [facility] [address] [facility] [address] [place] [address] Jama Hoskins MD Hypotension 08/12/2024 Home Care Visit [address] [place] [address] Lillian Campuzano, PT CARE CONFERENCE 08/12/2024 10:00 AM UPHOLSTERY CUTTER Home Care Visit [address] [place] [address] Zofia Cosby, OT OT INITIAL EVALUATION 08/12/2024 12:45 PM UPHOLSTERY CUTTER Home Care Visit [address] [place] [address] Dominga Head, TRAINING AND DEVELOPMENT REP PT HOME VISIT 08/09/2024 Home Care Visit [address] [place] [address] Magui Friedman, RUPESH NURSE MED RECON FOR THERAPY 08/07/2024 Plan of Care Documentation [address] [address] [place] [address] 08/07/2024 8:30 AM UPHOLSTERY CUTTER Home Care Visit [address] [place] [address] Lillian Campuzano, PT PT OASIS START OF CARE 08/06/2024 Telephone [facility] Care Services [address] [place] [address] Carson Huffman MA 08/05/2024 Telephone [facility] Home Care Services [address] [place] [address] Carson Huffman MA 08/04/2024 Telephone [facility] [address] [facility] [address], [place] [phone] Tanisha Winter NP 07/25/2024 6:50 PM UPHOLSTERY CUTTER - 08/04/2024 3:37 PM UPHOLSTERY CUTTER Hospital Encounter [facility] Physical Medicine and Rehabilitation [address] [phone] Nga Dumont MD Physical deconditioning [R53.81] (Primary Dx) Discharge Disposition: Discharge to home, home health skilled care 08/03/2024 Travel 08/01/2024 Orders Only [facility] Card[facility] [address] [place] [address] Jia Beard NP from Last 3 Months Allergies Active Allergy [...] ection Prophylaxis Apply topically daily 15 g 025 Active apixaban (ELIQUIS) 5 mg tabletIndications:at rial fibrillation Take 1 tablet (5 mg total) by mouth every 12 (twelve) hours 180 tablet 3 025 2025 Active furosemide (LASIX) 80 mg tablet Take 1 tablet (80 mg total) by mouth as needed Active potassium chloride ER 10 mEq CR tablet Take 1 tablet/capsu le (10 mEq total) by mouth daily 025 Active amiodarone (PACERONE) 200 mg tabletIndications:Pr evention of Recurrent Atrial Fibrillation Take 2 tablets (400 mg total) by mouth daily 180 tablet 3 025 2025 Active furosemide (LASIX) 80 mg tabletIndications:Re nal Disease with Edema Take 1 tablet (80 mg total) by mouth 2 (two) times a day rx #[id number] 2024 Discontinued(D uplicate order) losartan (COZAAR) 50 [...] doctor or pharmacy Sometimes 08/07/[address] [facility] Utilities Answer Date Recorded In [...] often do you attend chur ch or tenriism services? Patient declined 07/26/2024 Do you belong to any clubs o r organizations such as temple groups, unions, fraternal or athletic groups, or [...] staff should administer the PHQ-9) 0 08/21/2024 [facility] of Occupat ional Health - Occupational Stress [...] any time in the past 12 m [facility], were you homeless or living in a penitentiary (including now)? No 07/26/2024 Personal Safety Answer Date Recorded Have you ever been in or are you currently in a harmful physical or emotional relationship or is someone making you feel afraid or unsafe? Denies 08/21/2024 Comments Unknown Sex and Gender Information Value Date Recorded Sex Assigned at Not on file 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 UPHOLSTERY CUTTER Gender Identity Not on file Sexual Orientation Not on file Last Filed Vital Signs Vital Sign Reading Time Taken Comments Blood Pressure 80/58 10/10/2024 2:37 PM CDT Pulse 117 10/10/2024 2:37 PM CDT Temperature 36.8 C (98.3 F) 08/26/2024 3:53 PM UPHOLSTERY CUTTER Respiratory Rate 18 08/26/2024 3:53 PM UPHOLSTERY CUTTER Oxygen Saturation 97% 10/10/2024 2:37 PM CDT Inhaled Oxygen Concentration - - Weight 88.5 kg (195 lb) 10/10/2024 2:37 PM CDT Height 152.4 cm (5') 10/10/2024 2:37 PM CDT Body Mass Index 38.08 10/10/2024 2:37 PM CDT Plan of Treatment Not on file Medical Devices Implanted Type Area Music Composition Teacher Device Identifier Shelf Expiration Date Model / Serial / Lot Dental Implant Other - see comments Description:Upper [employer] Piru 15fr 62cm 2 Cuff Radiopaque Peritoneal Curl Catheter [id number] - [id number] Implanted:Qty: 1 on 04/03/2022 by Sulaiman Hi MD at [facility] Left: Abdomen [employer] 10/16/2026 [id number] / / [id number] Procedures Procedure Name Priority Date/Time Associated Diagnosis Comments POCT LIPID PANEL Routine 10/10/2024 4:22 PM CDT Need for lipid screening ELECTROCARDIOGRAM REPORT Routine 10/10/2024 4:08 PM CDT Persistent atrial fibrillation (HCC) DIFFERENTIAL AUTO Routine 08/26/2024 2:3 6 AM UPHOLSTERY CUTTER CBC WITH AUTO DIFFERENTIAL Routine 08/26/2024 2:36 AM UPHOLSTERY CUTTER CONTINUOUS CYCLIC PERITONEAL DIALYSIS (CCPD) Routine 08/26/2024 12:31 AM UPHOLSTERY CUTTER XR CHEST 1 VIEW IP Routine 08/25/2024 3:10 PM UPHOLSTERY CUTTER CELL DIFFERENTIAL, BODY FLUID Routine 08/25/2024 2:32 PM UPHOLSTERY CUTTER AMYLASE, BODY FLUID Routine 08/25/2024 2 :32 PM UPHOLSTERY CUTTER CELL COUNT W/REFLEX DIFFERENTIAL, BODY FLUID Routine 08/25/2024 2:32 PM UPHOLSTERY CUTTER GLUCOSE, BODY FLUID Routine 08/25/2024 2 :32 PM UPHOLSTERY CUTTER LACTATE DEHYDROGENASE, BODY FLUID Routine 08/25/2024 2:32 PM UPHOLSTERY CUTTER PROTEIN, BODY FLUID Routine 08/25/2024 2 :32 PM UPHOLSTERY CUTTER XR CHEST PA LATERAL 2 VIEWS IP Routine 08/25/2024 8:27 AM UPHOLSTERY CUTTER DIFFERENTIAL AUTO Routine 08/25/2024 3:0 3 AM UPHOLSTERY CUTTER CBC WITH AUTO DIFFERENTIAL Routine 08/25/2024 3:03 AM UPHOLSTERY CUTTER CYTOLOGY Routine 08/25/2024 12:00 AM UPHOLSTERY CUTTER DIFFERENTIAL AUTO Routine 08/24/2024 4:3 4 AM UPHOLSTERY CUTTER CBC WITH AUTO DIFFERENTIAL Routine 08/24/2024 4:34 AM UPHOLSTERY CUTTER EGFR Routine 08/22/2024 9:54 AM UPHOLSTERY CUTTER DIFFERENTIAL AUTO Routine 08/22/2024 9:5 4 AM UPHOLSTERY CUTTER COMPREHENSIVE METABOLIC PANEL Routine 08/22/2024 9:54 AM UPHOLSTERY CUTTER CBC WITH AUTO DIFFERENTIAL Routine 08/22/2024 9:54 AM UPHOLSTERY CUTTER URINALYSIS, MICROSCOPIC ONLY Routine 08/21/2024 6:01 PM UPHOLSTERY CUTTER URINE CULTURE Routine 08/21/2024 6:01 PM UPHOLSTERY CUTTER URINALYSIS AND REFLEX TO MICROSCOPIC AND CULTURE Routine 08/21/2024 6:[address] CHEST ABDOMEN PELVIS WO CONTRAST ED Urgent/IP Urgent 08/21/2024 4:56 PM UPHOLSTERY CUTTER VITAMIN B12 Routine 08/21/2024 7:44 AM UPHOLSTERY CUTTER FOLATE Routine 08/21/2024 7:44 AM UPHOLSTERY CUTTER IRON PROFILE W/ IBC Routine 08/21/2024 7 :44 AM UPHOLSTERY CUTTER BLOOD CULTURE Routine 08/21/2024 7:44 AM UPHOLSTERY CUTTER BLOOD CULTURE Routine 08/21/2024 7:44 AM UPHOLSTERY CUTTER EGFR Routine 08/21/2024 2:52 AM UPHOLSTERY CUTTER DIFFERENTIAL AUTO Routine 08/21/2024 2:5 2 AM UPHOLSTERY CUTTER COMPREHENSIVE METABOLIC PANEL Routine 08/21/2024 2:52 AM UPHOLSTERY CUTTER CBC WITH AUTO DIFFERENTIAL Routine 08/21/2024 2:52 AM UPHOLSTERY CUTTER XR CHEST 1 VIEW ED 08/21/2024 1:09 AM UPHOLSTERY CUTTER POTASSIUM, WHOLE BLOOD Timed 12:48 AM UPHOLSTERY CUTTER HEMOGLOBIN AND HEMATOCRIT Timed 08/21/2024 12:48 AM UPHOLSTERY CUTTER TRANSFUSE RED BLOOD CELLS Timed 08/20/2024 9:36 PM UPHOLSTERY CUTTER PREPARE RBC STAT 08/20/2024 8:06 PM UPHOLSTERY CUTTER APTT STAT 08/20/2024 8:02 PM UPHOLSTERY CUTTER PROTIME-INR STAT 08/20/2024 8:02 PM UPHOLSTERY CUTTER TYPE AND SCREEN STAT 08/20/2024 8:02 PM UPHOLSTERY CUTTER EGFR STAT 08/20/2024 1:06 PM UPHOLSTERY CUTTER DIFFERENTIAL AUTO STAT 08/20/2024 1:0 6 PM UPHOLSTERY CUTTER MAGNESIUM Routine 08/20/2024 1:06 PM UPHOLSTERY CUTTER COMPREHENSIVE METABOLIC PANEL STAT 08/20/2024 1:06 PM UPHOLSTERY CUTTER CBC WITH AUTO DIFFERENTIAL STAT 08/20/2024 1:06 PM UPHOLSTERY CUTTER ECG 12-LEAD Routine 08/20/2024 12:45 PM UPHOLSTERY CUTTER DIFFERENTIAL AUTO Routine 08/02/2024 5:4 5 AM UPHOLSTERY CUTTER CBC WITH AUTO DIFFERENTIAL Routine 08/02/2024 5:45 AM UPHOLSTERY CUTTER EGFR Routine 08/01/2024 6:03 AM UPHOLSTERY CUTTER BASIC METABOLIC PANEL Routine 08/01/2024 6:03 AM UPHOLSTERY CUTTER EGFR Routine 07/31/2024 8:40 AM UPHOLSTERY CUTTER BASIC METABOLIC PANEL Routine 07/31/2024 8:40 AM UPHOLSTERY CUTTER from Last 3 Months Results * POCT lipid panel (10/10/2024 4:22 PM CDT) Cholesterol, POC 239 mg/dL Comment:GLU = 119 HDL, POC N/A mg/dL Triglycerides, POC >650 mg/dL LDL Cholesterol POC N/A mg/dL Chol/HDL Ratio, POC N/A Non-HDL Cholesterol, POC N/A mg/dL Cholesterol Total, POC 239 mg/dL Capillary blood 10/10/2024 4 :22 PM CDT us Lydia Lewis NP POINT OF CARE TEST ORDERA BLES Final Result * Electrocardiogram Report (10/10/2024 4:08 PM CDT) us Lydia Lewis NP ECG ORDERABLES Final Res ult * (ABNORMAL) Differential, auto (08/26/2024 2:36 AM UPHOLSTERY CUTTER) Neutrophil abs 7.6(H) 1.5 - 6.5 K/cumm Imm gran abs 0.1 0.0 - 0.1 K/cumm [facility] Lymphocyte abs 0.6(L) 0.8 - 3.3 K/cumm [facility] Monocyte abs 1.3(H) 0.2 - 0.8 K/cumm [facility] Eosinophil abs 0.2 0.0 - 0.5 K/cumm [facility] Basophil abs 0.1 0.0 - 0.1 K/cumm [facility] Neutrophil pct 77.1 % [facility] Comment: Interpretive Data Percent cell count reference ranges are not reported, since discordance with absolute values may lead to misinterpretation of CBC data. Current Interpretive Data was last revised on 2017. Imm gran pct 1.3 % [facility] Comment: Interpretive Data Percent cell count reference ranges are not reported, since discordance with absolute values may lead to misinterpretation of CBC data. Current Interpretive Data was last revised on 2017. Lymphocyte pct 5.7 % [facility] Comment: Interpretive Data Percent cell count reference ranges are not reported, since discordance with absolute values may lead to misinterpretation of CBC data. Current Interpretive Data was last revised on 2017. Monocyte pct 13.0 % [facility] Comment: Interpretive Data Percent cell count reference ranges are not reported, since discordance with absolute values may lead to misinterpretation of CBC data. Current Interpretive Data was last revised on 2017. Eosinophil pct 2.3 % [facility] Comment: Interpretive Data Percent cell count reference ranges are not reported, since discordance with absolute values may lead to misinterpretation of CBC data. Current Interpretive Data was last revised on 2017. Basophil pct 0.6 % [facility] Comment: Interpretive Data Percent cell count reference ranges are not reported, since discordance with absolute values may lead to misinterpretation of CBC data. Current Interpretive Data was last revised on 2017. Blood 08/26/2024 2:36 AM UPHOLSTERY CUTTER 08/26/2024 4:06 AM UPHOLSTERY CUTTER us Bobby Ya MD LAB BLOOD ORDERABLES Final Result [facility] [address] Department [place] [address] * (ABNORMAL) CBC with auto differential (08/26/2024 2:36 AM UPHOLSTERY CUTTER) WBC 9.9 3.8 - 9.9 K/cumm Hgb [...] K/cumm [facility] Blood 08/26/2024 2:36 AM UPHOLSTERY CUTTER 08/26/2024 4:06 AM UPHOLSTERY CUTTER Bobby Ya MD LAB BLOOD ORDERABLES Final Result [facility] [address] Department [place] [address] * XR Chest 1 Vw Portable (08/25/2024 3:10 PM UPHOLSTERY CUTTER) Anatomical Region Laterality Modality Body, Chest N/A Computed Radiogr aphy 08/25/2024 3:29 PM UPHOLSTERY CUTTER Impressions 08/25/2024 3:29 PM UPHOLSTERY CUTTER FINDINGS/IMPRESSION: Small bilateral pleural effusions. No consolidation. Borderline cardiomegaly. No acute osseous abnormality. Electronically signed by: Peter Porter II, D.O. Narrative 08/25/2024 3:29 PM UPHOLSTERY CUTTER EXAMINATION: XR CHEST 1 VIEW DATE: 08/25/2024 2:10 PM INDICATION: Thoracentesis. COMPARISON: 09/17/2024. Procedure Note Peter Porter II, - 08/25/2024 EXAMINATION: XR CHEST 1 VIEW DATE: 08/25/2024 2:10 PM INDICATION: Thoracentesis. COMPARISON: 09/17/2024. IMPRESSION: FINDINGS/IMPRESSION: Small bilateral pleural effusions. No consolidation. Borderline cardiomegaly. No acute osseous abnormality. Electronically signed by: Peter Porter II, D.O. us Charles Hendrickson MD IMG XR PROCEDURES Final Result * Cell Differential, Body Fluid (08/25/2024 2:32 PM UPHOLSTERY CUTTER) Total cells diffed 82 % Comment: Interpretive [...] % [facility] Fluid 08/25/2024 2:32 PM UPHOLSTERY CUTTER 08/25/2024 2:32 PM UPHOLSTERY CUTTER us Charles Hendrickson MD LAB BODY FLUIDS AND STO OLS ORDERABLES Final Result [facility] [address] Department [place] [address] * Cell count w/rflx diff, body fluid (08/25/2024 2:32 PM UPHOLSTERY CUTTER) Specimen type, fld Pleural Body site, fld [...] /cumm [facility] Fluid 08/25/2024 2:32 PM UPHOLSTERY CUTTER 08/25/2024 2:32 PM UPHOLSTERY CUTTER us Charles Hendrickson MD LAB BODY FLUIDS AND STO OLS ORDERABLES Final Result [facility] [place] [address] [place] [address] * Protein, body fluid (08/25/2024 2:32 PM UPHOLSTERY CUTTER) Specimen type, fld Pleural Comment:Testing performed by : [facility], [address] [place]., [address] Body site, fld Pleural fluid, left [facility] Comment:Testing performed by : [facility], [address] [place]., [address] Protein, fld 3.5 g/dL [facility] Comment: The above specimen type is not [...] was last revised 2019. Testing performed by: [facility], [address] [place]., [address] Fluid 08/25/2024 2:32 PM UPHOLSTERY CUTTER 08/25/2024 5:52 PM UPHOLSTERY CUTTER us Charles Hendrickson MD LAB BODY FLUIDS AND STO OLS ORDERABLES Final Result [facility] [place] [address] [employer] [place], [place] [id number] * Lactate dehydrogenase, body fluid (08/25/2024 2:32 PM UPHOLSTERY CUTTER) Specimen type, fld Pleural Comment:Testing performed by : [facility], [address] [place]., [address] Body site, fld Pleural fluid, left [facility] Comment:Testing performed by : [facility], [address] [place]., [address] LD, fld 151 Units/L [facility] Comment: The above specimen type is not [...] was last revised 2019. Testing performed by: [facility], [address] [place] [address]., [address] Fluid 08/25/2024 2:32 PM UPHOLSTERY CUTTER 08/25/2024 5:52 PM UPHOLSTERY CUTTER Charles Hendrickson MD LAB BODY FLUIDS AND STO OLS ORDERABLES Final Result [facility] [address] Department [place] [address] * Glucose, body fluid (08/25/2024 2:32 PM UPHOLSTERY CUTTER) Specimen type, fld Pleural Comment:Testing performed by : [facility], [address] [place]., [address] Body site, fld Pleural fluid, left [facility] Comment:Testing performed by : [facility], [address] [place]., [address] Glucose, fld 109 mg/dL [facility] Comment: The above specimen type is [...] and Management. Meir Clin J Med 2005;72:854-72. [employer] Test directory, Body Fluid Reference Intervals and/or Interpretative Information. [email or web address] Danika COUCH et al. Pancreatic cyst fluid glucose: rapid, inexpensive, and accurate diagnosis of mucinous pancreatic cysts. Surgery 2018;163:600-5. Ribjanay DG et al. Differential diagnosis of pancreatic cysts: A prospective study on the role of intra-cystic glucose concentration. Digestive Liver Dis 2020;52:1026-32. Current Interpretive Data was last revised 2021. Testing performed by: [facility], [address] [facility], [place]., [address] Fluid 08/25/2024 2:32 PM UPHOLSTERY CUTTER 08/25/2024 5:52 PM UPHOLSTERY CUTTER Narrative [facility] - 08/25/2024 7:28 PM UPHOLSTERY CUTTER Body Fluid Type->Pleural us Charles Hendrickson MD LAB BODY FLUIDS AND STO OLS ORDERABLES Final Result [facility] [place] [address] Department [place] [address] * Amylase, body fluid (08/25/2024 2:32 PM UPHOLSTERY CUTTER) Specimen type, fld Pleural fluid, left Comment:Testing performed by : [facility], [address] [facility], [place]., [address] Amylase, fld <30 Units/L [facility] Comment: [...] 2018. Chapter 43, Body Fluids, p. 925 [employer] Test directory, Body Fluid Reference Intervals and/or Interpretative Information. [email or web address] Current Interpretive Data was last revised 2019. Testing performed by: [facility], [address] [facility], [place]., [address] Fluid 08/25/2024 2:32 PM UPHOLSTERY CUTTER 08/25/2024 5:52 PM UPHOLSTERY CUTTER us Charles Hendrickson MD LAB BODY FLUIDS AND STO OLS ORDERABLES Final Result [facility] [address] Department [place] [address] * XR Chest PA Lateral 2 Views (08/25/2024 8:27 AM UPHOLSTERY CUTTER) Anatomical Region Laterality Modality Body, Chest N/A Computed Radiogr aphy 08/25/2024 8:52 AM UPHOLSTERY CUTTER Impressions 08/25/2024 8:52 AM UPHOLSTERY CUTTER PERSISTENT PLEURAL EFFUSIONS LARGER ON THE LEFT THAN THE RIGHT. MILD FLUID OVERLOAD Electronically signed by: Bryant Alvarez M.D. Narrative 08/25/2024 8:52 AM UPHOLSTERY CUTTER EXAMINATION: XR CHEST PA LATERAL 2 VIEWS [...] * (ABNORMAL) Differential, auto (08/25/2024 3:03 AM UPHOLSTERY CUTTER) Neutrophil abs 7.4(H) 1.5 - 6.5 K/cumm [...] revised on 2017. Monocyte pct 13.3 % [facility] Comment: Interpretive Data Percent cell count reference ranges are not reported, since discordance with absolute values may lead to misinterpretation of CBC data. Current Interpretive Data was last revised on 2017. Eosinophil pct 2.7 % [facility] Comment: Interpretive Data Percent cell count reference ranges are not reported, since discordance with absolute values may lead to misinterpretation of CBC data. Current Interpretive Data was last revised on 2017. Basophil pct 0.6 % [facility] Comment: Interpretive Data Percent cell count reference ranges are not reported, since discordance with absolute values may lead to misinterpretation of CBC data. Current Interpretive Data was last revised on 2017. Blood 08/25/2024 3:03 AM UPHOLSTERY CUTTER 08/25/2024 4:15 AM UPHOLSTERY CUTTER Bobby Ya MD LAB BLOOD ORDERABLES Final Result [facility] [address] Department of Laboratories [place], [place] [id number] * (ABNORMAL) CBC with auto differential (08/25/2024 3:03 AM UPHOLSTERY CUTTER) WBC 9.8 3.8 - 9.9 K/cumm Hgb 7.3(L) 11.9 - 15.5 g/dL [facility] Hct 24.3(L) 35.6 - 45.5 % [facility] Plt 424(H) 150 - 400 K/cumm [facility] MPV 8.6(L) 9.1 - 12.3 fL [facility] RBC 2.36(L) 3.90 - 5.20 M/cumm [facility] MCV 103.0(H) 81.3 - 96.4 fL [facility] MCH 30.9 27.1 - 33.3 pg [facility] MCHC 30.0(L) 32.3 - 35.7 g/dL [facility] RDW CV 16.2(H) 11.1 - 14.9 % [facility] RDW SD 61.8(H) 35.7 - 48.1 fL [facility] NRBC abs 0.00 0.00 - 0.01 K/cumm [facility] Blood 08/25/2024 3:03 AM UPHOLSTERY CUTTER 08/25/2024 4:15 AM UPHOLSTERY CUTTER Bobby Ya MD LAB BLOOD ORDERABLES Final Result [facility] [address] Department of Laboratories [place] [id number] * Cytology (08/25/2024 12:00 AM UPHOLSTERY CUTTER) Fluid (Pleura (Cytology)) 08/25/2024 08/25/2024 2:53 PM UPHOLSTERY CUTTER Narrative PATHOLOGY CH - 08/27/2024 12:43 PM UPHOLSTERY CUTTER EPIC results best viewed via link to PDF [facility] Department of Pathology [address] [place], [place] [id number] Note to Patients: This report may contain [...] Final Report Patient Name: DORY NOBLE Address: [address] [place] [address] Gender: F : 1960 (Age: 63) Service: Medical Location: [facility] # [id number] Patient Type: [facility] Taken: 08/25/2024 Received: 08/25/2024 Accessioned: 08/25/2024 [...] determined by the Surgical Pathology Department at [facility] as part of an ongoing inspector quality assurance program and in compliance with federally mandated [...] characteristics determined by the Surgical Pathology Department [facility]. It has not been cleared or approved by the U. S. Food and Drug Administration. Unless otherwise noted all cytology processing, staining and screening is performed at [facility] ([address] [place] [address]). REPORT IMAGES AND SCANNED DOCUMENTS, IF INCLUDED, ONLY VIEWABLE IN PDF VERSION OF REPORT us Charles Hendrickson MD LAB CYTOLOGY ORDERABLES [place] [address] * (ABNORMAL) Differential, auto (08/24/2024 4:34 AM UPHOLSTERY CUTTER) Neutrophil abs 7.9(H) 1.5 - 6.5 K/cumm Imm gran abs 0.1 0.0 - 0.1 K/cumm [facility] Lymphocyte abs 0.6(L) 0.8 - 3.3 K/cumm [facility] Monocyte abs 1.3(H) 0.2 - 0.8 K/cumm [facility] Eosinophil abs 0.3 0.0 - 0.5 K/cumm [facility] Basophil abs 0.1 0.0 - 0.1 K/cumm [facility] Neutrophil pct 77.1 % [facility] Comment: Interpretive Data Percent cell count reference ranges are not reported, since discordance with absolute values may lead to misinterpretation of CBC data. Current Interpretive Data was last revised on 2017. Imm gran pct 1.4 % [facility] Comment: Interpretive Data Percent cell count reference ranges are not reported, since discordance with absolute values may lead to misinterpretation of CBC data. Current Interpretive Data was last revised on 2017. Lymphocyte pct 5.4 % [facility] Comment: Interpretive Data Percent cell count reference ranges are not reported, since discordance with absolute values may lead to misinterpretation of CBC data. Current Interpretive Data was last revised on 2017. Monocyte pct 12.6 % [facility] Comment: Interpretive Data Percent cell count reference ranges are not reported, since discordance with absolute values may lead to misinterpretation of CBC data. Current Interpretive Data was last revised on 2017. Eosinophil pct 2.9 % [facility] Comment: Interpretive Data Percent cell count [...] revised on 2017. Blood 08/24/2024 4:34 AM UPHOLSTERY CUTTER 08/24/2024 4:49 AM UPHOLSTERY CUTTER us Bobby Ya MD LAB BLOOD ORDERABLES Final Result Performing Organization Address City/[facility]/ZIP Co de Phone Number LAINE TOWNSEND [address] [place] [address] * (ABNORMAL) CBC with auto differential (08/24/2024 4:34 AM UPHOLSTERY CUTTER) [facility] WBC 10.3(H) 3.8 - 9.9 K/cumm Hgb [...] K/cumm [facility] Blood 08/24/2024 4:34 AM UPHOLSTERY CUTTER 08/24/2024 4:49 AM UPHOLSTERY CUTTER Bobby Ya MD LAB BLOOD ORDERABLES Final Result LAINE TOWNSEND [address] [place] [address] * (ABNORMAL) eGFR (08/22/2024 9:54 AM UPHOLSTERY CUTTER) [facility] eGFR 3(L) >=60 mL/min/1. 73 m2 Comment: [...] last reviewed 2021. Blood 08/22/2024 9:54 AM UPHOLSTERY CUTTER 08/22/2024 10:37 AM UPHOLSTERY CUTTER us Kala Barbosa NP LAB BLOOD ORDERABLES Final R esult [facility] [address] Department [place] [address] * (ABNORMAL) Differential, auto (08/22/2024 9:54 AM UPHOLSTERY CUTTER) Neutrophil abs 9.3(H) 1.5 - 6.5 K/cumm Imm gran abs 0.2(H) 0.0 - 0.1 K/cumm [facility] Lymphocyte abs 0.7(L) 0.8 - 3.3 K/cumm [facility] Monocyte abs 1.2(H) 0.2 - 0.8 K/cumm [facility] Eosinophil abs 0.3 0.0 - 0.5 K/cumm [facility] Basophil abs 0.1 0.0 - 0.1 K/cumm [facility] Neutrophil pct 79.3 % [facility] Comment: Interpretive Data Percent cell [...] on 2017. Lymphocyte pct 5.7 % [facility] Comment: Interpretive Data Percent cell count reference ranges are not reported, since discordance with absolute values may lead to misinterpretation of CBC data. Current Interpretive Data was last revised on 2017. Monocyte pct 10.4 % [facility] Comment: Interpretive Data Percent cell count reference ranges are not reported, since discordance with absolute values may lead to misinterpretation of CBC data. Current Interpretive Data was last revised on 2017. Eosinophil pct 2.7 % [facility] Comment: Interpretive Data Percent cell count reference ranges are not reported, since discordance with absolute values may lead to misinterpretation of CBC data. Current Interpretive Data was last revised on 2017. Basophil pct 0.6 % [facility] Comment: Interpretive Data Percent cell count reference ranges are not reported, since discordance with absolute values may lead to misinterpretation of CBC data. Current Interpretive Data was last revised on 2017. Blood 08/22/2024 9:54 AM UPHOLSTERY CUTTER 08/22/2024 10:36 AM UPHOLSTERY CUTTER us Kala Barbosa NP LAB BLOOD ORDERABLES Final R esult [facility] [address] Department of Laboratories [place], [place] [id number] * (ABNORMAL) CBC with auto differential (08/22/2024 9:54 AM UPHOLSTERY CUTTER) WBC 11.7(H) 3.8 - 9.9 K/cumm Hgb 7.4(L) 11.9 - 15.5 g/dL [facility] Hct 24.6(L) 35.6 - 45.5 % [facility] Plt 462(H) 150 - 400 K/cumm [facility] MPV 8.5(L) 9.1 - 12.3 fL [facility] RBC 2.37(L) 3.90 - 5.20 M/cumm [facility] MCV 103.8(H) 81.3 - 96.4 fL [facility] MCH 31.2 27.1 - 33.3 pg [facility] MCHC 30.1(L) 32.3 - 35.7 g/dL [facility] RDW CV 18.0(H) 11.1 - 14.9 % [facility] RDW SD 67.7(H) 35.7 - 48.1 fL [facility] NRBC abs 0.00 0.00 - 0.01 K/cumm [facility] Blood 08/22/2024 9:54 AM UPHOLSTERY CUTTER 08/22/2024 10:36 AM UPHOLSTERY CUTTER us Kala Barbosa NP LAB [place]LOOD [place] [address] Department [place] [address] * (ABNORMAL) Comprehensive metabolic panel (08/22/2024 9:54 AM UPHOLSTERY CUTTER) Sodium 137 135 - 145 mmol/L Potassium, [...] Units/L [facility] Blood 08/22/2024 9:54 AM UPHOLSTERY CUTTER 08/22/2024 10:37 AM UPHOLSTERY CUTTER us Kala Barbosa NP LAB BLOOD ORDERABLES Final R esult [facility] [address] Department [place] [address] * (ABNORMAL) Urinalysis reflex to microscopic and culture Urine, clean voided (08/21/2024 6:01 PM UPHOLSTERY CUTTER) Color, ur Mitzi Yellow Clarity, ur Turbid(A) [...] tendency for uric acid stone formation. Source: [facility] Current Interpretive Data was last revised on [...] CH Urine, clean voided 08/21/2024 6:01 PM UPHOLSTERY CUTTER 08/21/2024 6:06 PM UPHOLSTERY CUTTER Bobby Ya MD LAB MICROBIOLOGY - GENERAL ORDERABLES Final Result Performing Organization Address [facility] Co de Phone Number SUMMERSTEVE TOWNSEND [address] [facility] [place] [address] * (ABNORMAL) Urinalysis, microscopic only (08/21/2024 6:01 PM UPHOLSTERY CUTTER) WBC, ur >50(A) 0 - 5 /HPF RBC, ur >50(A) 0 - 2 /HPF [facility] Epithelial cells, squamous, ur 21-50(A) 0 - 5 /HPF [facility] Culture Reflex Comment Reflex to urine culture will be performed. [facility] Urine, clean voided 08/21/2024 6:01 PM UPHOLSTERY CUTTER 08/21/2024 6:06 PM UPHOLSTERY CUTTER Bobby Ya MD LAB URINE ORDERABLES Final Result Performing Organization Address [facility] de Phone Number LAINE KRISTIAN [address] [place] [address] * Urine culture Urine, clean voided (08/21/2024 6:01 PM UPHOLSTERY CUTTER) Report Final Report: Less than 100,000 colonies/mL (clinically insignificant growth based on current clinical standards) Comment:Testing performed by : [facility], [address] [place]., [address] Organism (CLINICALLY INSIGNIFICANT GROWTH [facility] Urine, clean voided 08/21/2024 6:01 PM UPHOLSTERY CUTTER 08/21/2024 8:14 PM UPHOLSTERY CUTTER Narrative [facility] - 08/23/2024 7:20 AM UPHOLSTERY CUTTER Urine culture reflexed based upon urinalysis results. Testing performed by [facility] ([phone]) Bobby Ya MD LAB MICROBIOLOGY - GENERAL ORDERABLES Final Result Performing Organization Address [facility] Co de Phone Number LAINE TOWNSEND [address] [place], [place] [id number] * CT Chest Abdomen Pelvis WO Contrast (08/21/2024 4:56 PM UPHOLSTERY CUTTER) Anatomical Region Laterality Modality Body N/A Computed Tomogra phy 08/21/2024 5:31 PM UPHOLSTERY CUTTER Impressions 08/22/2024 2:24 PM UPHOLSTERY CUTTER Moderate loculated left pleural effusion with left [...] Priscila Ochoa M.D. Narrative 08/22/2024 2:24 PM UPHOLSTERY CUTTER EXAM: CT CHEST, ABDOMEN AND PELVIS WITHOUT [...] noted without pericardial effusion..Atherosclerotic nonaneurysmal aorta with [id number] calcified plaque and mild aortic valvular calcification [...] noted without pericardial effusion..Atherosclerotic nonaneurysmal aorta with nenr-[id number] calcified plaque and mild aortic valvular calcification [...] Iron profile w/ IBC (08/21/2024 7:44 AM UPHOLSTERY CUTTER) Iron 164(H) 35 - 145 mcg/dl TIBC 254 250 - 400 mcg/dL [facility] Transferrin saturation 65(H) 20 - 50 % [facility] Blood 08/21/2024 7:44 AM UPHOLSTERY CUTTER 08/21/2024 9:19 AM UPHOLSTERY CUTTER Kala Barbosa NP LAB BLOOD ORDERABLES Final R esult [facility] TOWNSEND [address] Department [place] [address] * Blood culture Blood (08/21/2024 7:44 AM UPHOLSTERY CUTTER) Report Final Report: No growth Comment:Testing performed by : [facility], [address] [place]., [address] Blood 08/21/2024 7:44 AM UPHOLSTERY CUTTER 08/21/2024 12:57 PM UPHOLSTERY CUTTER Andree LAINE TOWNSEND - 08/25/2024 4:00 PM UPHOLSTERY CUTTER From a different site than #1. Collection->Peripheral [...] performance characteristics have been verified by the [facility]. For questions about this culture, contact the Microbiology Laboratory at [phone]. Interpretive data was last revised on 24. us Kala Barbosa NP LAB MICROBIOLOGY - GENERAL O RDERABLES Final Result LAINE [address] Department [place] [address] * Blood culture Blood (08/21/2024 7:44 AM UPHOLSTERY CUTTER) Report Final Report: No growth Comment:Testing performed by : [facility], [address] [place]., [address] Blood 08/21/2024 7:44 AM UPHOLSTERY CUTTER 08/21/2024 12:57 PM UPHOLSTERY CUTTER Narrative LAINE TOWNSEND - 08/25/2024 4:00 PM UPHOLSTERY CUTTER Collection->Peripheral 1. Blood cultures are incubated for [...] performance characteristics have been verified by the [facility]. For questions about this culture, contact the Microbiology Laboratory at [phone]. Interpretive data was last revised on 24. Kala Barbosa NP LAB MICROBIOLOGY - GENERAL O RDERABLES Final Result Performing Organization Address City/[facility]/ZIP Co de Phone Number LAINE TOWNSEND [address] [place] [address] * Folate (08/21/2024 7:44 AM UPHOLSTERY CUTTER) Folic acid >20.0 >=5.0 ng/mL Comment:Hemolysis present. R esults may be affected. Blood 08/21/2024 7:44 AM UPHOLSTERY CUTTER 08/21/2024 9:19 AM UPHOLSTERY CUTTER Kala Barbosa NP LAB BLOOD ORDERABLES Final R esult Performing Organization Address City/[facility] Co de Phone Number LAINE TOWNSEND [address] [place] [address] * (ABNORMAL) Vitamin B12 (08/21/2024 7:44 AM UPHOLSTERY CUTTER) Vitamin B12 1,704(H) 230 - 1,250 pg/mL Blood 08/21/2024 7:44 AM UPHOLSTERY CUTTER 08/21/2024 9:19 AM UPHOLSTERY CUTTER Kala Barbosa ENERGY SALES CONSULTANT LAB BLOOD ORDERABLES Final R esult Performing Organization Address [facility]/ZIP Co de Phone Number LAINE [address] [facility] [place] [address] * (ABNORMAL) eGFR (08/21/2024 2:52 AM UPHOLSTERY CUTTER) Pathologist [facility] eGFR 4(L) >=60 mL/min/1. 73 m2 [...] last reviewed 2021. Blood 08/21/2024 2:52 AM UPHOLSTERY CUTTER 08/21/2024 3:17 AM UPHOLSTERY CUTTER Kala Barbosa NP LAB BLOOD ORDERABLES Final R esult LAINE [address] [facility] [place] [address] * (ABNORMAL) Differential, auto (08/21/2024 2:52 AM UPHOLSTERY CUTTER) Neutrophil abs 9.6(H) 1.5 - 6.5 K/cumm Imm gran abs 0.2(H) 0.0 - 0.1 K/cumm [facility] Lymphocyte abs 1.0 0.8 - 3.3 K/cumm [facility] Monocyte abs 1.4(H) 0.2 - 0.8 K/cumm [facility] Eosinophil abs 0.3 0.0 - 0.5 K/cumm [facility] Basophil abs 0.1 0.0 - 0.1 K/cumm [facility] Neutrophil pct 76.2 % [facility] Comment: Interpretive Data Percent cell [...] revised on 2017. Lymphocyte pct 8.2 % [facility] Comment: Interpretive Data Percent cell count reference ranges are not reported, since discordance with absolute values may lead to misinterpretation of CBC data. Current Interpretive Data was last revised on 2017. Monocyte pct 11.4 % [facility] Comment: Interpretive Data Percent cell count reference ranges are not reported, since discordance with absolute values may lead to misinterpretation of CBC data. Current Interpretive Data was last revised on 2017. Eosinophil pct 2.1 % [facility] Comment: Interpretive Data Percent cell [...] revised on 2017. Blood 08/21/2024 2:52 AM UPHOLSTERY CUTTER 08/21/2024 3:18 AM UPHOLSTERY CUTTER Kala Barbosa [employer]ER[employer] SALES CONSULTANT LAB BLOOD ORDERABLES Final R esult LAINE [address] [place], [place] [id number] * (ABNORMAL) CBC with auto differential (08/21/2024 2:52 AM UPHOLSTERY CUTTER) WBC 12.6(H) 3.8 - 9.9 K/cumm Hgb [...] K/cumm [facility] Blood 08/21/2024 2:52 AM UPHOLSTERY CUTTER 08/21/2024 3:18 AM UPHOLSTERY CUTTER Kala Barbosa ENERGY SALES CONSULTANT LAB BLOOD ORDERABLES Final R esult LAINE [address] [place] [address] * (ABNORMAL) Comprehensive metabolic panel (08/21/2024 2:52 AM UPHOLSTERY CUTTER) Sodium 136 135 - 145 mmol/L Potassium, [...] Units/L [facility] Blood 08/21/2024 2:52 AM UPHOLSTERY CUTTER 08/21/2024 3:17 AM UPHOLSTERY CUTTER Kala Barbosa NP LAB BLOOD ORDERABLES Final R esult LAINE TOWNSEND [address] [place] [address] * XR Chest 1 Vw Portable (08/21/2024 1:09 AM UPHOLSTERY CUTTER) Anatomical Region Laterality Modality Body, Chest N/A Computed Radiogr aphy 08/21/2024 8:04 AM UPHOLSTERY CUTTER Impressions 08/21/2024 8:04 AM UPHOLSTERY CUTTER CARDIOMEGALY WITH CONSOLIDATING OPACITY IN THE LEFT BASE AND HAZY OPACITY IN THE RIGHT BASE WITH FLUID IN THE FISSURE. A LATERAL CHEST VIEW OR CT OF THE CHEST IS SUGGESTED TO EVALUATE THE LUNG BASES. Electronically signed by: Sulaiman Xie M.D. Narrative 08/21/2024 8:04 AM UPHOLSTERY CUTTER EXAMINATION: XR CHEST 1 VIEW HISTORY: Elevated [...] signed by: Sulaiman Xie M.D. Susan Salcedo ENERGY SALES CONSULTANT IMG XR PROCEDURES Fi nal Result * (ABNORMAL) Potassium, whole blood (08/21/2024 12:48 AM UPHOLSTERY CUTTER) Potassium, bld 3.1(L) 3.3 - 4.9 mmol/L Comment: Interpretive Data This method is not able to assess for hemolysis, which may falsely increase potassium concentrations. If further testing is needed to evaluate this result, consider in-laboratory plasma potassium. Current Interpretive Data was last revised on 2022. Blood 08/21/2024 12:4 8 AM UPHOLSTERY CUTTER 08/21/2024 12:59 AM UPHOLSTERY CUTTER Susan Salcedo ENERGY SALES CONSULTANT LAB BLOOD ORDERABLES Final Result Performing Organization Address [facility] Co de Phone Number LAINE TOWNSEND [address] [place] [address] * (ABNORMAL) Hemoglobin and hematocrit (08/21/2024 12:48 AM UPHOLSTERY CUTTER) Pathologist [facility] Hgb 7.2(L) 11.9 - 15.5 g/dL Hct 23.7(L) 35.6 - 45.5 % [facility] Blood 08/21/2024 12:4 8 AM UPHOLSTERY CUTTER 08/21/2024 1:00 AM UPHOLSTERY CUTTER Susan Salcedo NP LAB BLOOD ORDERABLES Final Result Performing Organization Address [facility] de Phone Number LAINE TOWNSEND [address] [place] [address] * Transfuse RBC (08/20/2024 11:45 PM UPHOLSTERY CUTTER) Blood Susan Salcedo ENERGY SALES CONSULTANT BLOOD TRANSFUSION OR DERABLES Final Result Performing Organization Address [facility] Co de Phone Number LAINE TOWNSEND [address] [place] [address] * Prepare RBC: 1 Units (08/20/2024 8:06 PM UPHOLSTERY CUTTER) [facility] Product code [id number] Unit Number [id number] [facility] Product Blood Type BPOS [facility] Dispense Status PRESUMED TRANSFUSED [facility] Blood 08/20/2024 8:06 PM UPHOLSTERY CUTTER Narrative [facility] - 08/21/2024 10:15 AM UPHOLSTERY CUTTER Are special requirements needed? (All products are leukoreduced and CMV- safe)- >No Date required:-20240820 LRRBC # of [id number] Reasons:-Hgb <7 g/dL} Susan Salcedo ENERGY SALES CONSULTANT BLOOD BANK PRODUCT O RDERABLES Final Result Performing Organization Address [facility] Co de Phone Number LAINE TOWNSEND [address] [facility] [employer] [place], [place] [id number] * (ABNORMAL) aPTT (08/20/2024 8:02 PM UPHOLSTERY CUTTER) aPTT 53(H) 28 - 38 sec Comment: Interpretive Data Heparin therapeutic range: 66.0 - 100.0 seconds. Range based on correlation with therapeutic heparin activity range of 0.3 - 0.7 Units/mL. Current interpretive data was last revised on 2023. Blood 08/20/2024 8:02 PM UPHOLSTERY CUTTER 08/20/2024 8:26 PM UPHOLSTERY CUTTER Dominga KNAPP LAB BLOOD ORDERABLES Final Resu lt Performing Organization Address [facility] de Phone Number LAINE TOWNSEND [address] [facility] [place] [address] * (ABNORMAL) Protime-INR (08/20/2024 8:02 PM UPHOLSTERY CUTTER) PT 22.7(H) 9.7 - 13.0 sec INR 2.07(H) 0.90 - 1.20 LAINE TOWNSEND Comment: Interpretive data Oral anticoagulant therapeutic ranges: Venous thromboembolism prophylaxis or treatment: 2.0-3.0 CARDIOLOGY Standard range: 2.0-3.0 High-intensity range: 2.5-3.5 Refer to indication-specific guidelines for appropriate target ranges for prosthetic heart valve replacement. Current interpretive data was last revised on 2019. Blood 08/20/2024 8:02 PM UPHOLSTERY CUTTER 08/20/2024 8:26 PM UPHOLSTERY CUTTER Dominga KNAPP LAB BLOOD ORDERABLES Final Resu lt Performing Organization Address [facility] Co de Phone Number LAINE TOWNSEND [address] [facility] [employer] [place], [place] [phone] * Type and screen (08/20/2024 8:02 PM UPHOLSTERY CUTTER) Arianna, indirect Negative ABO Rh B Positive [facility]INE Blood 08/20/2024 8:02 PM UPHOLSTERY CUTTER 08/20/2024 8:26 PM UPHOLSTERY CUTTER Narrative LAINE TOWNSEND - 08/20/2024 9:05 PM UPHOLSTERY CUTTER Has the patient had Daratumumab or Isatuximab in the past 6 months?->Unknown Dominga KNAPP LAB BLOOD BANK TEST ORDERABLES Final Result LAINE [address] [place] [address] * (ABNORMAL) eGFR (08/20/2024 1:06 PM UPHOLSTERY CUTTER) eGFR 4(L) >=60 mL/min/1. 73 m2 Comment: [...] last reviewed 2021. Blood 08/20/2024 1:06 PM UPHOLSTERY CUTTER 08/20/2024 1:06 PM UPHOLSTERY CUTTER Alcides KNAPP LAB BLOOD ORDERABLES Final Result LAINE [address] [place] [address] * (ABNORMAL) Differential, auto (08/20/2024 1:06 PM UPHOLSTERY CUTTER) Neutrophil abs 9.9(H) 1.5 - 6.5 K/cumm Imm gran abs 0.2(H) 0.0 - 0.1 K/cumm [facility] Lymphocyte abs 0.8 0.8 - 3.3 K/cumm [facility] Monocyte abs 1.1(H) 0.2 - 0.8 K/cumm [facility] Eosinophil abs 0.3 0.0 - 0.5 K/cumm [facility] Basophil abs 0.1 0.0 - 0.1 K/cumm [facility] Neutrophil pct 80.3 % [facility] Comment: Interpretive Data Percent cell [...] revised on 2017. Lymphocyte pct 6.4 % [facility] Comment: Interpretive Data Percent cell count reference ranges are not reported, since discordance with absolute values may lead to misinterpretation of CBC data. Current Interpretive Data was last revised on 2017. Monocyte pct 9.1 % [facility] Comment: Interpretive Data Percent cell count reference ranges are not reported, since discordance with absolute values may lead to misinterpretation of CBC data. Current Interpretive Data was last revised on 2017. Eosinophil pct 2.1 % [facility] Comment: Interpretive Data Percent cell [...] revised on 2017. Blood 08/20/2024 1:06 PM UPHOLSTERY CUTTER 08/20/2024 1:06 PM UPHOLSTERY CUTTER Alcides KNAPP LAB BLOOD ORDERABLES Final Result LAINE TOWNSEND [address] [place] [address] * (ABNORMAL) CBC with auto differential (08/20/2024 1:06 PM UPHOLSTERY CUTTER) WBC 12.3(H) 3.8 - 9.9 K/cumm Hgb 6.3(C) 11.9 - 15.5 g/dL [facility] Comment:Critical result call ed to and read back by MARCIAL CASLTE on 08 20 2024 at 1344 to [facility] Hct 21.7(L) 35.6 - 45.5 % [facility] [...] K/cumm [facility] Blood 08/20/2024 1:06 PM UPHOLSTERY CUTTER 08/20/2024 1:06 PM UPHOLSTERY CUTTER Alcides KNAPP LAB BLOOD ORDERABLES Final Result LAINE TOWNSEND [address] Department of [employer] [place], [place] [id number] * Magnesium (08/20/2024 1:06 PM UPHOLSTERY CUTTER) Pathologist [facility] Magnesium 1.9 1.4 - 2.5 mg/dL Blood 08/20/2024 1:06 PM UPHOLSTERY CUTTER 08/20/2024 1:06 PM UPHOLSTERY CUTTER Alcides KNAPP LAB [place] [address] [address] Department [place] [address] * (ABNORMAL) Comprehensive metabolic panel (08/20/2024 1:06 PM UPHOLSTERY CUTTER) Sodium 134(L) 135 - 145 mmol/L Potassium, [...] Units/L [facility] Blood 08/20/2024 1:06 PM UPHOLSTERY CUTTER 08/20/2024 1:06 PM UPHOLSTERY CUTTER Alcides KNAPP LAB BLOOD ORDERABLES Final Result Performing Organization Address [facility] Co de Phone Number LAINE [address] Department [place] [address] * ECG 12 lead (08/20/2024 12:45 PM UPHOLSTERY CUTTER) 08/20/2024 12:4 5 PM UPHOLSTERY CUTTER Narrative [facility] - 08/20/2024 7:49 PM UPHOLSTERY CUTTER Vent Rate: 117 bpm RR Interval: 511 msec DE Interval: 0 msec QRS Duration: 116 msec QT Interval: 361 msec QTC Interval: 430 msec P-R-T [place]: 0 - 8 - 210 degrees IMPRESSION: ATRIAL FIBRILLATION WITH RAPID VENTRICULAR RESPONSE MODERATE INTRAVENTRICULAR CONDUCTION DELAY [110+ ms QRS DURATION] ST DEVIATION AND MODERATE T-WAVE ABNORMALITY, CONSIDER LATERAL ISCHEMIA [-0.1+ mV T-WAVE IN I/aVL/V5/V6] ABNORMAL ECG Electronically Signed By: Dr. Noelle Joiner [facility] Alcides KNAPP ECG ORDERABLES Final Result Performing Organization Address [facility] de Phone Number [facility] Formula XO [facility] * (ABNORMAL) Differential, auto (08/02/2024 5:45 AM UPHOLSTERY CUTTER) Neutrophil abs 8.3(H) 1.5 - 6.5 K/cumm Imm gran abs 0.7(H) 0.0 - 0.1 K/cumm [facility] Lymphocyte abs 1.1 0.8 - 3.3 K/cumm [facility] Monocyte abs 1.9(H) 0.2 - 0.8 K/cumm [facility] Eosinophil abs 0.4 0.0 - 0.5 K/cumm [facility] Basophil abs 0.1 0.0 - 0.1 K/cumm [facility] Neutrophil pct 67.1 % [facility] Comment: Interpretive Data Percent cell count reference ranges are not reported, since discordance with absolute values may lead to misinterpretation of CBC data. Current Interpretive Data was last revised on 2017. Imm gran pct 5.3 % [facility] Comment: Interpretive Data Percent cell count [...] revised on 2017. Monocyte pct 15.6 % [facility] Comment: Interpretive Data Percent cell count [...] on 2017. Basophil pct 0.7 % [facility] Comment: Interpretive Data Percent cell count reference ranges are not reported, since discordance with absolute values may lead to misinterpretation of CBC data. Current Interpretive Data was last revised on 2017. Blood 08/02/2024 5:45 AM UPHOLSTERY CUTTER 08/02/2024 6:22 AM UPHOLSTERY CUTTER Padmini Mason NP LAB BLOOD ORDERABLES nal Result [facility] [address] Department [place] [address] * (ABNORMAL) CBC with auto differential (08/02/2024 5:45 AM UPHOLSTERY CUTTER) WBC 12.4(H) 3.8 - 9.9 K/cumm Hgb 7.5(L) 11.9 - 15.5 g/dL [facility] Hct 28.7(L) 35.6 - 45.5 % [facility] Plt 402(H) 150 - 400 K/cumm [facility] MPV 11.2 9.1 - 12.3 fL [facility] RBC 2.53(L) 3.90 - 5.20 M/cumm [facility] MCV 113.4(H) 81.3 - 96.4 fL [facility] MCH 29.6 27.1 - 33.3 pg [facility] MCHC 26.1(L) 32.3 - 35.7 g/dL LAINE CH RDW CV 20.7(H) 11.1 - 14.9 % [facility] CH RDW SD 85.8(H) 35.7 - 48.1 fL [facility] NRBC abs 0.08(H) 0.00 - 0.01 K/cumm [facility] Blood 08/02/2024 5:45 AM UPHOLSTERY CUTTER 08/02/2024 6:22 AM UPHOLSTERY CUTTER Padmini Mason NP LAB BLOOD ORDERABLES Fi nal Result [facility]INE TOWNSEND [address] Department [place] [address] * (ABNORMAL) eGFR (08/01/2024 6:03 AM UPHOLSTERY CUTTER) eGFR 4(L) >=60 mL/min/1. 73 m2 Comment: [...] last reviewed 2021. Blood 08/01/2024 6:03 AM UPHOLSTERY CUTTER 08/01/2024 6:37 AM UPHOLSTERY CUTTER us Tanisha Yap ENERGY SALES CONSULTANT LAB BLOOD ORDERABLES Final Resul t Performing Organization Address [facility]/ZIP Co de Phone Number [place] [id number] [email or web address] [address] * (ABNORMAL) Basic metabolic panel (08/01/2024 6:03 AM UPHOLSTERY CUTTER) Sodium 136 135 - 145 mmol/L Potassium, pl 3.9 3.3 - 4.9 mmol/L [facility] Chloride 95(L) 97 - 110 mmol/L [facility] CO2 22 22 - 32 mmol/L [facility] Anion gap 19(H) 2 - 15 mmol/L [facility] BUN 66(H) 6 - 25 mg/dL [facility] Creatinine 9.73(H) 0.60 - 1.10 mg/dL [facility] Glucose 90 70 - 199 mg/dL [facility] Comment: Interpretive Data Fasting glucose [...] Calcium 9.1 8.5 - 10.3 mg/dL [facility] Blood 08/01/2024 6:03 AM UPHOLSTERY CUTTER 08/01/2024 6:37 AM UPHOLSTERY CUTTER Tanisha Moy ENERGY SALES CONSULTANT LAB BLOOD ORDERABLES Final Resul t Performing Organization Address [facility]/ZIP Co de Phone Number [place] [phone] [place] [address] * (ABNORMAL) eGFR (07/31/2024 8:40 AM UPHOLSTERY CUTTER) Pathologist [facility] eGFR 4(L) >=60 mL/min/1. 73 m2 [...] last reviewed 2021. Blood 07/31/2024 8:40 AM UPHOLSTERY CUTTER 07/31/2024 9:42 AM UPHOLSTERY CUTTER Tanisha Winter NP LAB BLOOD ORDERABLES Final Resul t [facility] [id number] Department [place] [address] * (ABNORMAL) Basic metabolic panel (07/31/2024 8:40 AM UPHOLSTERY CUTTER) Sodium 139 135 - 145 mmol/L Potassium, pl 3.3 3.3 - 4.9 mmol/L [facility] Chloride 95(L) 97 - 110 mmol/L [facility] CO2 22 22 - 32 mmol/L [facility] Anion gap 22(H) 2 - 15 mmol/L [facility] BUN 62(H) 6 - 25 mg/dL [facility] Creatinine 9.53(H) 0.60 - 1.10 mg/dL [facility] Glucose 85 70 - 199 mg/dL [facility] Comment: Interpretive Data Fasting glucose >/= [...] mg/dL [place] Blood 07/31/2024 8:40 AM UPHOLSTERY CUTTER 07/31/2024 9:42 AM UPHOLSTERY CUTTER us Tanisha Winter ENERGY SALES CONSULTANT LAB BLOOD ORDERABLES Final Resul t [place] [id number] Department [place] [address] from Last 3 Months Insurance [employer] MED[employer]ARE [employer] MED[employer] Advance Directives For more information, please contact: [phone] * Full Code (Latest Code Status on File) Date Activated Date Inactivated Comments 08/21/2024 2:16 AM 08/26/2024 10:55 PM * Full Code Date Activated Date Inactivated Comments 07/25/2024 6:59 PM 08/04/2024 7:42 PM * Full Code Date Activated Date Inactivated Comments 07/21/2024 6:30 PM 07/25/2024 6:50 PM Care Teams Shear Helper Relationship Specialty Start Date End Date Porsche Becker NP [address] [place] [address] PCP - General Nurse Practitioner 08/19/24 Mookie Dubois MD Referring Physician Nephrology 02/20/22 Jama Hoskins MD [address] [place] [address] Consulting Physician Cardiology 02/20/24
--- OUTSIDE RECORDS SUMMARY | 2024-10-28 14:32 | XMS_ITS | Clinical Summary ---
Author Organization [facility] [place] [address] Address [address] [place] [address] Care Team Providers Care Commutator Presser Name Role Phone Mookie Dubois MD Unavailable [phone] Jama Hoskins MD Unavailable [phone] Porsche Becker NP Primary Care Provider [phone] Allergies Active Allergy Reactions Criticality Noted Date Comments Aftab Inhibitors Angioedema High 08/09/2021 Azithromycin Agitation Low 08/09/2021 Grass Pollen Sneezing Low 03/23/2022 Medications Jennifer-Silvia 0.8 mg tabletIndications:Vi tamin Deficiency Prevention Take 0.8 mg by mouth daily 022 Active sevelamer (RENVELA) 800 mg tabletIndications:Re nal Osteodystrophy with Hyperphosphatemia Take 1 tablet (800 mg total) by mouth 3 (three) times a day with meals 022 Active levothyroxine (SYNTHROID) 25 mcg tabletIndications:hy pothyroidism Take 1 tablet (25 mcg total) by mouth daily 022 Active calcitRIOL (ROCALTROL) 0.5 mcg capsuleIndications:h ypocalcemia [...] mouth 2 (two) times a day rx #[id number] 2024 Discontinued(D uplicate order) losartan (COZAAR) 50 [...] Date Type Department Care Team Description 10/10/2024 2:30 PM CDT Office Visit [facility] Medical Group Cardiology [address] [facility] [address] [place] [phone] Lydia Lewis NP Need for lipid screening (Primary Dx); Hypotension due to hypovolemia; Persistent atrial fibrillation (HCC); Chronic anticoagulation; Preoperative cardiovascular examination 10/10/2024 Telephone [facility] Transplant Kidney [address] Mailstop [phone] [place] [address] Abigail Dougherty RN 09/30/2024 Telephone [facility] Medical [facility] Cardiology [address] [place] [address] [address] [place] [phone] Jama Hoskins MD 09/05/2024 Telephone [facility] Cardiology [address] [place] [address] [place] [phone] Jama Hoskins MD 09/03/2024 Telephone [facility] Transplant Kidney [address] Mailstop [phone] [place] [address] Abigail Dougherty, RUPESH 08/28/2024 Home Care Visit [address] [address] [place] [address] Lillian Campuzano, MARILEE PT VIRTUAL NON OASIS DISCHARGE 08/20/2024 7:40 PM ACCOUNT MANAGER [employer]EFITS - 08/26/2024 6:54 PM ACCOUNT MANAGER [employer]EE [employer] Hospital Encounter [address] [address] Mike Connell MD Myla, Lathamanjari, MD Anemia due to chronic kidney disease, on chronic dialysis (HCC) (Primary Dx) Discharge Disposition: Discharge to home or self care 08/20/2024 11:15 AM ACCOUNT MANAGER EM[employer]OYEE [employer]EFITS Home Care Visit [address] [address] [place] [address] Ana Cristina Kelley COTA CASE COMMUNICATION 08/20/2024 10:45 AM ACCOUNT MANAGER [employer]ITS Home Care Visit [address] [place] [address] Dominga Head, RYAN PT HOME VISIT 08/20/2024 Home Care Visit [address] [place] [address] Lillian Campuzano, PT PT OASIS TRANSFER W/OUT DC 08/20/2024 Home Care Visit [address] [place] [address] Dominga Head, RYAN CASE COMMUNICATION 08/20/2024 Telephone [facility] Cardiology [address] [place] [address] [place] [phone] Lydia Lewis, JOSE C 08/19/2024 11:30 AM ACCOUNT MANAGER [employer] Office Visit [address] [place] [phone] Ldyia Lewis, JOSE C Hypotension due to hypovolemia (Primary Dx); Dilated cardiomyopathy (HCC); Persistent atrial fibrillation (HCC); Chronic anticoagulation; ESRD (end stage renal disease) on dialysis (HCC) 08/14/2024 Telephone [facility] Cardiology [address] [place] [address] [address] [place] [address] [phone] Jama Hoskins MD Hypotension 08/12/2024 12:45 PM ACCOUNT MANAGER [employer] Home Care Visit [address] [place] [address] Dominga Head, RYAN PT HOME VISIT 08/12/2024 10:00 AM ACCOUNT MANAGER [employer]ITS Home Care Visit [address] [place] [address] Zofia Cosby, OT OT INITIAL EVALUATION 08/12/2024 Home Care Visit [address] [place] [address] Lillian Campuzano, PT CARE CONFERENCE 08/09/2024 Home Care Visit [address] [place] [address] Magui Friedman, RUPESH NURSE MED RECON FOR THERAPY 08/07/2024 8:30 AM ACCOUNT MANAGER [employer] Home Care Visit [address] [place] [address] Lillian Campuzano, PT PT OASIS START OF CARE 08/07/2024 Plan of Care Documentation [address] [place] [address] 08/06/2024 Telephone [facility] Home Care Services [address] [place] [address] Carson Huffman MA 08/05/2024 Telephone [facility] Home Care Services [address] [place] [address] Carson Huffman MA 08/04/2024 Telephone [facility] Medical [facility] Cardiology [address] [facility] [address] [place] [phone] Tanisha Winter NP 08/03/2024 Travel 08/01/2024 Orders Only [facility] Medical [facility] Cardiology [address] [facility] [address] [place] [address] Jia Beard NP 07/25/2024 6:50 PM ACCOUNT MANAGER [employer]EE [employer]EFITS - 08/04/2024 3:37 PM ACCOUNT MANAGER [employer]EE [employer]EFITS Hospital Encounter [facility] [address] [place] [address] Nga Dumont MD Physical deconditioning [R53.81] (Primary Dx) Discharge Disposition: Discharge to home, home health skilled care from Last 3 Months Immunizations Immunization Administration [...] materials from doctor or pharmacy Sometimes 08/07/2024 [facility] Utilities Answer Date Recorded In the past 12 months has e [employer], oil, or water [employer] threatened to shut off services in your [...] How often do you attend chur or nondenominational services? Patient declined 07/26/2024 Do you belong to any clubs o r organizations such as latter-day groups, unions, fraternal or athletic groups, or [...] staff should administer the PHQ-9) 0 08/21/2024 [facility] Occupat ional [facility] - Occupational Stress Questionnaire Answer Date Recorded [...] any time in the past 12 m [facility], were you homeless or living in a fci (including now)? No 07/26/2024 Personal Safety Answer Date Recorded Have you ever been in or are you currently in a harmful physical or emotional relationship or is someone making you feel afraid or unsafe? Denies 08/21/2024 Comments Unknown Sex and Gender Information Value Date Recorded Sex Assigned at Not on file 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 ACCOUNT MANAGER EM[employer]EF[employer] Gender Identity Not on file Sexual Orientation Not on file Obstetrics History Last Filed Vital Signs Vital Sign Reading Time Taken Comments Blood Pressure 80/58 10/10/2024 2:37 PM CDT Pulse 117 10/10/2024 2:37 PM CDT Temperature 36.8 C (98.3 F) 08/26/2024 3:53 PM [employer]OUNT MANAGER [employer] Respiratory Rate 18 08/26/2024 3:53 PM ACCOUNT MANAGER [employer]EE [employer]EFITS Oxygen Saturation 97% 10/10/2024 2:37 PM CDT Inhaled Oxygen Concentration - - Weight 88.5 kg (195 lb) 10/10/2024 2:37 PM CDT Height 152.4 cm (5') 10/10/2024 2:37 PM CDT Body Mass Index 38.08 10/10/2024 2:37 PM CDT Plan of Treatment Health Maintenance Due Date Last Done Comments Breast Cancer Screening-Mammogram 1960 Cervical Cancer Screening 1960 Colon Cancer Screening-Colonoscopy 1960 Hepatitis C Screening 1960 Regular Well Visit/Exam 18-64 12/26/1979 Pneumococcal vaccine <65 (1 of 2 - PCV) 1980 08/08/2021 Zoster Vaccine (1 of 2) 12/26/2011 Covid-19 Vaccine (5 - 2023-2 5 season) 2024 07/02/2023, 06/28/2021, 10/15/2020, Additional history exists Influenza Vaccine (Season Ended) 2025 05/03/20 23 Depression Screening 08/20/2025 08/20/2024, 08/20/2024, 07/25/2024, Additional history exists DTaP/Tdap/Td Vaccine (5 - Td or Tdap) 12/18/2033 12/19/2023, 09/27/2023, 2022, Additional history exists Hepatitis B Screening Completed 03/04/2022 , 02/16/2022, 11/25/2021, Additional history exists Medical Devices Implanted Type Area Perinatal Coordinator Device Identifier Shelf Expiration Date Model / Serial / Lot Dental Implant Other - see comments Description:Upper [employer] [place] 15fr 62cm 2 Cuff Radiopaque Peritoneal Curl Catheter [id number] - [id number] Implanted:Qty: 1 on 04/03/2022 by Sulaiman Hi MD at [facility] Left: Abdomen [employer] 10/16/2026 [id number] / / [id number] Procedures Procedure Name Priority Date/Time Associated Diagnosis Comments POCT LIPID PANEL Routine 10/10/2024 4:22 PM CDT Need for lipid screening ELECTROCARDIOGRAM REPORT Routine 10/10/2024 4:08 PM CDT Persistent atrial fibrillation (HCC) DIFFERENTIAL AUTO Routine 08/26/2024 2:3 6 AM ACCOUNT MANAGER [employer] CBC WITH AUTO DIFFERENTIAL Routine 08/26/2024 2:36 AM ACCOUNT MANAGER EM[employer]OYEE [employer]EFITS CONTINUOUS CYCLIC PERITONEAL DIALYSIS (CCPD) Routine 08/26/2024 12:31 AM ACCOUNT MANAGER [employer]EE [employer] XR CHEST 1 VIEW IP Routine 08/25/2024 3:10 PM ACCOUNT MANAGER [employer]EE [employer]EFITS CELL DIFFERENTIAL, BODY FLUID Routine 08/25/2024 2:32 PM ACCOUNT MANAGER [employer]EE [employer]ITS AMYLASE, BODY FLUID Routine 08/25/2024 2 :32 PM ACCOUNT MANAGER [employer] CELL COUNT W/REFLEX DIFFERENTIAL, BODY FLUID Routine 08/25/2024 2:32 PM ACCOUNT MANAGER [employer]EE [employer]EFITS GLUCOSE, BODY FLUID Routine 08/25/2024 2 :32 PM ACCOUNT MANAGER [employer]EE [employer]EFITS LACTATE DEHYDROGENASE, BODY FLUID Routine 08/25/2024 2:32 PM ACCOUNT MANAGER [employer]EE [employer]EFITS PROTEIN, BODY FLUID Routine 08/25/2024 2 :32 PM ACCOUNT MANAGER [employer]EE [employer]ITS XR CHEST PA LATERAL 2 VIEWS IP Routine 08/25/2024 8:27 AM ACCOUNT MANAGER [employer]ITS DIFFERENTIAL AUTO Routine 08/25/2024 3:0 3 AM ACCOUNT MANAGER [employer] CBC WITH AUTO DIFFERENTIAL Routine 08/25/2024 3:03 AM ACCOUNT MANAGER [employer]EE [employer] CYTOLOGY Routine 08/25/2024 12:00 AM ACCOUNT MANAGER [employer]EE [employer]EFITS DIFFERENTIAL AUTO Routine 08/24/2024 4:3 4 AM ACCOUNT MANAGER [employer] CBC WITH AUTO DIFFERENTIAL Routine 08/24/2024 4:34 AM ACCOUNT MANAGER [employer] EGFR Routine 08/22/2024 9:54 AM ACCOUNT MANAGER [employer]EE [employer]ITS DIFFERENTIAL AUTO Routine 08/22/2024 9:5 4 AM ACCOUNT MANAGER EM[employer]EE [employer]EFITS COMPREHENSIVE METABOLIC PANEL Routine 08/22/2024 9:54 AM ACCOUNT MANAGER [employer]EE [employer] CBC WITH AUTO DIFFERENTIAL Routine 08/22/2024 9:54 AM ACCOUNT MANAGER [employer]EE [employer]EFITS URINALYSIS, MICROSCOPIC ONLY Routine 08/21/2024 6:01 PM ACCOUNT MANAGER [employer]EE [employer]ITS URINE CULTURE Routine 08/21/2024 6:01 PM ACCOUNT MANAGER EM[employer]EE [employer]EFITS URINALYSIS AND REFLEX TO MICROSCOPIC AND CULTURE Routine 08/21/2024 6:01 PM ACCOUNT MANAGER EMPLOYEE [employer]ENEFITS CT CHEST ABDOMEN PELVIS WO CONTRAST ED Urgent/IP Urgent 08/21/2024 4:56 PM ACCOUNT MANAGER EM[employer]OYEE [employer]EFITS VITAMIN B12 Routine 08/21/2024 7:44 AM ACCOUNT MANAGER EM[employer]OYEE [employer]EFITS FOLATE Routine 08/21/2024 7:44 AM ACCOUNT MANAGER [employer]EE [employer]EFITS IRON PROFILE W/ IBC Routine 08/21/2024 7 :44 AM ACCOUNT MANAGER EM[employer]EE [employer]EFITS BLOOD CULTURE Routine 08/21/2024 7:44 AM ACCOUNT MANAGER EMPLOYEE [employer]ENEFITS BLOOD CULTURE Routine 08/21/2024 7:44 AM ACCOUNT MANAGER [employer]EE [employer]EFITS EGFR Routine 08/21/2024 2:52 AM ACCOUNT MANAGER EM[employer]OYEE [employer]EFITS DIFFERENTIAL AUTO Routine 08/21/2024 2:5 2 AM ACCOUNT MANAGER EM[employer]EE [employer]EFITS COMPREHENSIVE METABOLIC PANEL Routine 08/21/2024 2:52 AM ACCOUNT MANAGER [employer]EE [employer]EFITS CBC WITH AUTO DIFFERENTIAL Routine 08/21/2024 2:52 AM ACCOUNT MANAGER [employer]EE [employer]EFITS XR CHEST 1 VIEW ED 08/21/2024 1:09 AM ACCOUNT MANAGER [employer]EE [employer]EFITS POTASSIUM, WHOLE BLOOD Timed 12:48 AM ACCOUNT MANAGER EM[employer]EE [employer]EFITS HEMOGLOBIN AND HEMATOCRIT Timed 08/21/2024 12:48 AM ACCOUNT MANAGER [employer]EE [employer]EFITS TRANSFUSE RED BLOOD CELLS Timed 08/20/2024 9:36 PM ACCOUNT MANAGER [employer]EE [employer]EFITS PREPARE RBC STAT 08/20/2024 8:06 PM ACCOUNT MANAGER [employer]EE [employer]EFITS APTT STAT 08/20/2024 8:02 PM ACCOUNT MANAGER EM[employer]EE [employer]EFITS PROTIME-INR STAT 08/20/2024 8:02 PM ACCOUNT MANAGER [employer]EE [employer]EFITS TYPE AND SCREEN STAT 08/20/2024 8:02 PM ACCOUNT MANAGER [employer]EE [employer]EFITS EGFR STAT 08/20/2024 1:06 PM ACCOUNT MANAGER EM[employer]EE [employer]EFITS DIFFERENTIAL AUTO STAT 08/20/2024 1:0 6 PM ACCOUNT MANAGER [employer]EE [employer]EFITS MAGNESIUM Routine 08/20/2024 1:06 PM ACCOUNT MANAGER EM[employer]EE [employer]EFITS COMPREHENSIVE METABOLIC PANEL STAT 08/20/2024 1:06 PM ACCOUNT MANAGER [employer]EE [employer]EF[employer] CBC WITH AUTO DIFFERENTIAL STAT 08/20/2024 1:06 PM ACCOUNT MANAGER [employer]EE [employer] ECG 12-LEAD Routine 08/20/2024 12:45 PM ACCOUNT MANAGER EM[employer]EE [employer]EFITS DIFFERENTIAL AUTO Routine 08/02/2024 5:4 5 AM ACCOUNT MANAGER [employer] CBC WITH AUTO DIFFERENTIAL Routine 08/02/2024 5:45 AM ACCOUNT MANAGER [employer] EGFR Routine 08/01/2024 6:03 AM ACCOUNT MANAGER [employer]EE [employer]ITS BASIC METABOLIC PANEL Routine 08/01/2024 6:03 AM ACCOUNT MANAGER [employer]EE [employer]ITS EGFR Routine 07/31/2024 8:40 AM ACCOUNT MANAGER EM[employer]EE [employer]EFITS BASIC METABOLIC PANEL Routine 07/31/2024 8:40 AM ACCOUNT MANAGER EM[employer]OYEE [employer]EFITS from Last 3 Months Results * POCT [...] * (ABNORMAL) Differential, auto (08/26/2024 2:36 AM ACCOUNT MANAGER EM[employer]OYEE [employer]EFITS) Neutrophil abs 7.6(H) 1.5 - 6.5 K/cumm [...] on 2017. Imm gran pct 1.3 % [facility] Comment: Interpretive Data Percent cell count reference ranges are not reported, since discordance with absolute values may lead to misinterpretation of CBC data. Current Interpretive Data was last revised on 2017. Lymphocyte pct 5.7 % [facility] Comment: Interpretive Data Percent cell count reference ranges are not reported, since discordance with absolute values may lead to misinterpretation of CBC data. Current Interpretive Data was last revised on 2017. Monocyte pct 13.0 % [facility] Comment: Interpretive Data Percent cell count reference ranges are not reported, since discordance with absolute values may lead to misinterpretation of CBC data. Current Interpretive Data was last revised on 2017. Eosinophil pct 2.3 % [facility] Comment: Interpretive Data Percent cell count reference ranges are not reported, since discordance with absolute values may lead to misinterpretation of CBC data. Current Interpretive Data was last revised on 2017. Basophil pct 0.6 % [facility] Comment: Interpretive Data Percent cell count reference ranges are not reported, since discordance with absolute values may lead to misinterpretation of CBC data. Current Interpretive Data was last revised on 2017. Blood 08/26/2024 2:36 AM ACCOUNT MANAGER [employer]EE [employer]EFITS 08/26/2024 4:06 AM ACCOUNT MANAGER [employer]EE [employer]EFITS Bobby Ya MD LAB BLOOD ORDERABLES Final Result [facility] [id number] Department [place] [address] * (ABNORMAL) CBC with auto differential (08/26/2024 2:36 AM ACCOUNT MANAGER [employer]PL[employer]EE [employer]EFITS) WBC 9.9 3.8 - 9.9 K/cumm Hgb 7.2(L) 11.9 - 15.5 g/dL [facility] Hct 24.2(L) 35.6 - 45.5 % [facility] Plt 383 150 - 400 K/cumm [facility] MPV 8.7(L) 9.1 - 12.3 fL [facility] RBC 2.36(L) 3.90 - 5.20 M/cumm [facility] MCV 102.5(H) 81.3 - 96.4 fL [facility] MCH 30.5 27.1 - 33.3 pg [facility] MCHC 29.8(L) 32.3 - 35.7 g/dL [facility] RDW CV 15.9(H) 11.1 - 14.9 % [facility] RDW SD 58.7(H) 35.7 - 48.1 fL [facility] NRBC abs 0.00 0.00 - 0.01 K/cumm [facility] Blood 08/26/2024 2:36 AM ACCOUNT MANAGER [employer]EE [employer]EFITS 08/26/2024 4:06 AM ACCOUNT MANAGER EM[employer]OYEE [employer]EFITS us Bobby Ya MD LAB BLOOD ORDERABLES Final Result [facility] [address] Department [place] [address] * XR Chest 1 Vw Portable (08/25/2024 3:10 PM ACCOUNT MANAGER EMPLOYEE [employer]ENEFITS) Anatomical Region Laterality Modality Body, Chest N/A Computed Radiogr aphy 08/25/2024 3:29 PM ACCOUNT MANAGER EM[employer]EE [employer]EFITS Impressions 08/25/2024 3:29 PM ACCOUNT MANAGER EM[employer]OYEE [employer]ENEFITS FINDINGS/IMPRESSION: Small bilateral pleural effusions. No consolidation. Borderline cardiomegaly. No acute osseous abnormality. Electronically signed by: Peter Porter II, D.O. Narrative 08/25/2024 3:29 PM ACCOUNT MANAGER EMPLOYEE [employer]ENEFITS EXAMINATION: XR CHEST 1 VIEW DATE: 08/25/2024 [...] Cell Differential, Body Fluid (08/25/2024 2:32 PM ACCOUNT MANAGER EM[employer]EE [employer]EFITS) Total cells diffed 82 % Comment: Interpretive [...] % [facility] Fluid 08/25/2024 2:32 PM ACCOUNT MANAGER EM[employer]EE [employer]EFITS 08/25/2024 2:32 PM ACCOUNT MANAGER EMPLOYEE BENEFITS us Charles Hendrickson MD LAB BODY FLUIDS AND STO OLS ORDERABLES Final Result Performing Organization Address [facility] Co de Phone Number [facility] [phone] [place], [place] [phone] * Cell count w/rflx diff, body fluid (08/25/2024 2:32 PM ACCOUNT MANAGER [employer]EE [employer]EFITS) Specimen type, fld Pleural Body site, fld [...] /cumm [facility] Fluid 08/25/2024 2:32 PM ACCOUNT MANAGER EMPL[employer]EE [employer]EFITS 08/25/2024 2:32 PM ACCOUNT MANAGER EMPLOYEE BENEFITS us Charles Hendrickson MD LAB BODY FLUIDS AND STO OLS ORDERABLES Final Result Performing Organization Address City/[facility] Co de Phone Number [facility] [address] [place], [place] [phone] * Protein, body fluid (08/25/2024 2:32 PM ACCOUNT MANAGER [employer]EE [employer]EFITS) Specimen type, fld Pleural Comment:Testing performed by : [facility], [address] [facility] [place] [address] Body site, fld Pleural fluid, left [facility] Comment:Testing performed by : [facility], [address] [place]., [address] Protein, fld 3.5 g/dL [facility] Comment: The [...] was last revised 2019. Testing performed by: [facility], [address] [place] [address]., [address] Fluid 08/25/2024 2:32 PM ACCOUNT MANAGER [employer]EE [employer]EFITS 08/25/2024 5:52 PM ACCOUNT MANAGER EM[employer]EE [employer]EFITS Charles Hendrickson MD LAB BODY FLUIDS AND STO OLS ORDERABLES Final Result [facility] [address] Department [place] [address] * Lactate dehydrogenase, body fluid (08/25/2024 2:32 PM ACCOUNT MANAGER EMPLOYEE [employer]ENEFITS) Specimen type, fld Pleural Comment:Testing performed by : [facility], [address] [place]., [address] Body site, fld Pleural fluid, left [facility] Comment:Testing performed by : [facility], [address] [place]., [address] LD, fld 151 Units/L [facility] Comment: The [...] was last revised 2019. Testing performed by: [facility], [address] [place]., [address] Fluid 08/25/2024 2:32 PM ACCOUNT MANAGER [employer]EE [employer]EFITS 08/25/2024 5:52 PM ACCOUNT MANAGER EM[employer]EE [employer]EFITS Charles Hendrickson MD LAB BODY FLUIDS AND STO OLS ORDERABLES Final Result [facility] [address] Department [place] [address] * Glucose, body fluid (08/25/2024 2:32 PM ACCOUNT MANAGER EM[employer]EE [employer]ENEFITS) Specimen type, fld Pleural Comment:Testing performed by : [facility], [address] [place]., [address] Body site, fld Pleural fluid, left [facility] Comment:Testing performed by : [facility], [address] [place] [address]., [address] Glucose, fld 109 mg/dL [facility] Comment: [...] and Management. Meir Clin J Med 2005;72:854-72. [employer] Test directory, Body Fluid Reference Intervals and/or Interpretative Information. [email or web address] Danika COUCH et al. Pancreatic cyst fluid glucose: rapid, inexpensive, and accurate diagnosis of mucinous pancreatic cysts. Surgery 2018;163:600-5. Ribjanay DG et al. Differential diagnosis of pancreatic cysts: A prospective study on the role of intra-cystic glucose concentration. Digestive Liver Dis 2020;52:1026-32. Current Interpretive Data was last revised 2021. Testing performed by: [facility], [address] [place]., [address] Fluid 08/25/2024 2:32 PM ACCOUNT MANAGER [employer]EFITS 08/25/2024 5:52 PM ACCOUNT MANAGER EM[employer]EE [employer]EFITS Narrative [facility] - 08/25/2024 7:28 PM ACCOUNT MANAGER EM[employer]EE [employer]EFITS Body Fluid Type->Pleural Charles Hendrickson MD LAB BODY FLUIDS AND STO OLS ORDERABLES Final Result [facility] [address] [address] Department [place] [address] * Amylase, body fluid (08/25/2024 2:32 PM ACCOUNT MANAGER EM[employer]EE [employer]ENEFITS) Specimen type, fld Pleural fluid, left Comment:Testing performed by : [facility], [address] [place]., [address] Amylase, fld <30 Units/L [facility] Comment: [...] 2018. Chapter 43, Body Fluids, p. 925 [employer] Test directory, Body Fluid Reference Intervals and/or Interpretative Information. [email or web address] Current Interpretive Data was last revised 2019. Testing performed by: [facility], [address] [place]., [address] Fluid 08/25/2024 2:32 PM ACCOUNT MANAGER EM[employer]EE [employer]ENEFITS 08/25/2024 5:52 PM ACCOUNT MANAGER EMPLOYEE BENEFITS us Charles Hendrickson MD LAB BODY FLUIDS AND STO OLS ORDERABLES Final Result Performing Organization Address City/State/ZIP Co ks Phone Number [facility] [address] Department [place] [address] * XR Chest PA Lateral 2 Views (08/25/2024 8:27 AM ACCOUNT MANAGER [employer]EFITS) Anatomical Region Laterality Modality Body, Chest N/A Computed Radiogr aphy 08/25/2024 8:52 AM ACCOUNT MANAGER [employer]EE [employer]EFITS Impressions 08/25/2024 8:52 AM ACCOUNT MANAGER [employer]EE [employer]ENEFITS PERSISTENT PLEURAL EFFUSIONS LARGER ON THE LEFT THAN THE RIGHT. MILD FLUID OVERLOAD Electronically signed by: Bryant Alvarez M.D. Narrative 08/25/2024 8:52 AM ACCOUNT MANAGER EM[employer]EE [employer]ENEFITS EXAMINATION: XR CHEST PA LATERAL 2 VIEWS [...] * (ABNORMAL) Differential, auto (08/25/2024 3:03 AM ACCOUNT MANAGER EM[employer]EE [employer]EFITS) Neutrophil abs 7.4(H) 1.5 - 6.5 K/cumm [...] revised on 2017. Blood 08/25/2024 3:03 AM ACCOUNT MANAGER [employer]EE [employer]EFITS 08/25/2024 4:15 AM ACCOUNT MANAGER EM[employer]EE [employer]ENEFITS Bobby Ya MD LAB BLOOD ORDERABLES Final Result Performing Organization Address City/[facility]/ZIP Co de Phone Number [facility] [place] [phone] [place] [address] * (ABNORMAL) CBC with auto differential (08/25/2024 3:03 AM ACCOUNT MANAGER [employer]EFITS) WBC 9.8 3.8 - 9.9 K/cumm Hgb 7.3(L) 11.9 - 15.5 g/dL [facility] Hct 24.3(L) 35.6 - 45.5 % [facility] Plt 424(H) 150 - 400 K/cumm [facility] MPV 8.6(L) 9.1 - 12.3 fL [facility] RBC 2.36(L) 3.90 - 5.20 M/cumm [facility] MCV 103.0(H) 81.3 - 96.4 fL [facility] MCH 30.9 27.1 - 33.3 pg [facility] MCHC 30.0(L) 32.3 - 35.7 g/dL [facility] RDW CV 16.2(H) 11.1 - 14.9 % [facility] RDW SD 61.8(H) 35.7 - 48.1 fL [facility] NRBC abs 0.00 0.00 - 0.01 K/cumm [facility] Blood 08/25/2024 3:03 AM ACCOUNT MANAGER [employer]EFITS 08/25/2024 4:15 AM ACCOUNT MANAGER [employer]EE [employer]ENEFITS Bobby Ya MD LAB BLOOD ORDERABLES Final Result Performing Organization Address City/[facility]/ZIP Co de Phone Number [facility] [place] [phone] [place] [address] * Cytology (08/25/2024 12:00 AM ACCOUNT MANAGER [employer]EFITS) Fluid (Pleura (Cytology)) 08/25/2024 08/25/2024 2:53 PM ACCOUNT MANAGER [employer]EFITS Narrative PATHOLOGY - 08/27/2024 12:43 PM ACCOUNT MANAGER [employer]EE [employer]EFITS EPIC results best viewed via link to PDF [facility] Department of Pathology [address] [place], [place] [id number] Note to Patients: This report may contain [...] Final Report Patient Name: DORY NOBLE Address: [address] [place] [address] Gender: F : 1960 (Age: 63) Service: Medical Location: [facility] Hospital # [id number] Patient Type: [facility] Taken: 08/25/2024 Received: 08/25/2024 Accessioned: 08/25/2024 Reported: [...] determined by the Surgical Pathology Department at [facility] as part of an ongoing automotive quality engineer program and in compliance with [...] determined by the Surgical Pathology Department [facility]. It has not been cleared or approved by the U. S. Food and Drug Administration. Unless otherwise noted all cytology processing, staining and screening is performed at [facility] ([address] [place] [address]). REPORT IMAGES AND SCANNED DOCUMENTS, IF INCLUDED, ONLY VIEWABLE IN PDF VERSION OF REPORT Charles Hendrickson MD LAB CYTOLOGY ORDERABLES [place] [address] * (ABNORMAL) Differential, auto (08/24/2024 4:34 AM ACCOUNT MANAGER [employer]EE [employer]EFITS) Neutrophil abs 7.9(H) 1.5 - 6.5 K/cumm Imm gran abs 0.1 0.0 - 0.1 K/cumm [facility] Lymphocyte abs 0.6(L) 0.8 - 3.3 K/cumm [facility] Monocyte abs 1.3(H) 0.2 - 0.8 K/cumm [facility] Eosinophil abs 0.3 0.0 - 0.5 K/cumm [facility] Basophil abs 0.1 0.0 - 0.1 K/cumm [facility] Neutrophil pct 77.1 % [facility] Comment: Interpretive Data Percent cell count reference ranges are not reported, since discordance with absolute values may lead to misinterpretation of CBC data. Current Interpretive Data was last revised on 2017. Imm gran pct 1.4 % [facility] Comment: Interpretive Data Percent cell count reference ranges are not reported, since discordance with absolute values may lead to misinterpretation of CBC data. Current Interpretive Data was last revised on 2017. Lymphocyte pct 5.4 % [facility] Comment: Interpretive Data Percent cell count reference ranges are not reported, since discordance with absolute values may lead to misinterpretation of CBC data. Current Interpretive Data was last revised on 2017. Monocyte pct 12.6 % [facility] Comment: Interpretive Data Percent cell count reference ranges are not reported, since discordance with absolute values may lead to misinterpretation of CBC data. Current Interpretive Data was last revised on 2017. Eosinophil pct 2.9 % [facility] Comment: Interpretive Data Percent cell count reference ranges are not reported, since discordance with absolute values may lead to misinterpretation of CBC data. Current Interpretive Data was last revised on 2017. Basophil pct 0.6 % [facility] Comment: Interpretive Data Percent cell count reference ranges are not reported, since discordance with absolute values may lead to misinterpretation of CBC data. Current Interpretive Data was last revised on 2017. Blood 08/24/2024 4:34 AM [employer]OUNT [employer]NAGER [employer]EE [employer]EFITS 08/24/2024 4:49 AM ACCOUNT MANAGER EM[employer]OYEE B[employer]EFITS us Bobby Ya MD LAB BLOOD ORDERABLES Final Result [facility] [address] Department [place] [address] * (ABNORMAL) CBC with auto differential (08/24/2024 4:34 AM ACCOUNT MANAGER EMPLOYEE [employer]EFITS) WBC 10.3(H) 3.8 - 9.9 K/cumm Hgb 7.0(L) 11.9 - 15.5 g/dL [facility] Hct 23.3(L) 35.6 - 45.5 % [facility] CH Plt 410(H) 150 - 400 K/cumm [facility] CH MPV 8.4(L) 9.1 - 12.3 fL [facility] RBC 2.24(L) 3.90 - 5.20 M/cumm [facility] CH MCV 104.0(H) 81.3 - 96.4 fL [facility] CH MCH 31.3 27.1 - 33.3 pg [facility] MCHC 30.0(L) 32.3 - 35.7 g/dL [facility] CH RDW CV 16.7(H) 11.1 - 14.9 % [facility] CH RDW SD 64.5(H) 35.7 - 48.1 fL [facility] CH NRBC abs 0.00 0.00 - 0.01 K/cumm [facility] Blood 08/24/2024 4:34 AM [employer]OUNT [employer]NAGER [employer]EFITS 08/24/2024 4:49 AM [employer]OUNT MANAGER [employer]EFITS Bobby Ya MD LAB BLOOD ORDERABLES Final Result [facility] [address] Department of Laboratories [place] [phone] * (ABNORMAL) eGFR (08/22/2024 9:54 AM ACCOUNT MANAGER [employer]OYEE [employer]EFITS) eGFR 3(L) >=60 mL/min/1. 73 m2 Comment: [...] last reviewed 2021. Blood 08/22/2024 9:54 AM [employer]OUNT MANAGER [employer]EE [employer]EFITS 08/22/2024 10:37 AM ACCOUNT MANAGER EM[employer]OYEE [employer]EFITS us Kala Barbosa NP LAB BLOOD ORDERABLES Final R esult [facility] [address] Department [place] [address] * (ABNORMAL) Differential, auto (08/22/2024 9:54 AM ACCOUNT MANAGER [employer]EE [employer]EFITS) Neutrophil abs 9.3(H) 1.5 - 6.5 K/cumm Imm gran abs 0.2(H) 0.0 - 0.1 K/cumm [facility] Lymphocyte abs 0.7(L) 0.8 - 3.3 K/cumm [facility] Monocyte abs 1.2(H) 0.2 - 0.8 K/cumm [facility] Eosinophil abs 0.3 0.0 - 0.5 K/cumm [facility] Basophil abs 0.1 0.0 - 0.1 K/cumm [facility] Neutrophil pct 79.3 % [facility] Comment: Interpretive Data Percent cell count reference ranges are not reported, since discordance with absolute values may lead to misinterpretation of CBC data. Current Interpretive Data was last revised on 2017. Imm gran pct 1.3 % [facility] Comment: Interpretive Data Percent cell count reference ranges are not reported, since discordance with absolute values may lead to misinterpretation of CBC data. Current Interpretive Data was last revised on 2017. Lymphocyte pct 5.7 % [facility] Comment: Interpretive Data Percent cell count reference ranges are not reported, since discordance with absolute values may lead to misinterpretation of CBC data. Current Interpretive Data was last revised on 2017. Monocyte pct 10.4 % [facility] Comment: Interpretive Data Percent cell count reference ranges are not reported, since discordance with absolute values may lead to misinterpretation of CBC data. Current Interpretive Data was last revised on 2017. Eosinophil pct 2.7 % [facility] Comment: Interpretive Data Percent cell count reference ranges are not reported, since discordance with absolute values may lead to misinterpretation of CBC data. Current Interpretive Data was last revised on 2017. Basophil pct 0.6 % [facility] Comment: Interpretive Data Percent cell count reference ranges are not reported, since discordance with absolute values may lead to misinterpretation of CBC data. Current Interpretive Data was last revised on 2017. Blood 08/22/2024 9:54 AM [employer]OUNT MANAGER [employer]EE [employer]EFITS 08/22/2024 10:36 AM ACCOUNT MANAGER EMPLOYEE BENEFITS us Kala Barbosa NP LAB BLOOD ORDERABLES Final R esult [facility] [address] Department [place] [address] * (ABNORMAL) CBC with auto differential (08/22/2024 9:54 AM ACCOUNT MANAGER EMPLOYEE [employer]EFITS) WBC 11.7(H) 3.8 - 9.9 K/cumm Hgb 7.4(L) 11.9 - 15.5 g/dL [facility] Hct 24.6(L) 35.6 - 45.5 % [facility] Plt 462(H) 150 - 400 K/cumm [facility] MPV 8.5(L) 9.1 - 12.3 fL [facility] RBC 2.37(L) 3.90 - 5.20 M/cumm [facility] MCV 103.8(H) 81.3 - 96.4 fL [facility] MCH 31.2 27.1 - 33.3 pg [facility] MCHC 30.1(L) 32.3 - 35.7 g/dL [facility] RDW CV 18.0(H) 11.1 - 14.9 % [facility] RDW SD 67.7(H) 35.7 - 48.1 fL [facility] NRBC abs 0.00 0.00 - 0.01 K/cumm [facility] Blood 08/22/2024 9:54 AM [employer]NAGER [employer]ITS 08/22/2024 10:36 AM ACCOUNT MANAGER EM[employer]OYEE [employer]EFITS us Kala Barbosa NP LAB BLOOD ORDERABLES Final R esult [facility] [address] Department [place] [address] * (ABNORMAL) Comprehensive metabolic panel (08/22/2024 9:54 AM ACCOUNT MANAGER [employer]EE [employer]EFITS) Sodium 137 135 - 145 mmol/L Potassium, [...] Units/L [facility] Blood 08/22/2024 9:54 AM ACCOUNT MANAGER EM[employer]OYEE [employer]EFITS 08/22/2024 10:37 AM ACCOUNT MANAGER EM[employer]OYEE [employer]EFITS Kala Barbosa NP LAB BLOOD ORDERABLES Final R esult Performing Organization Address City/[facility]/ZIP Co de Phone Number [facility] [place] [address] Department [place] [address] * (ABNORMAL) Urinalysis reflex to microscopic and culture Urine, clean voided (08/21/2024 6:01 PM ACCOUNT MANAGER EMPLOYEE [employer]EFITS) Color, ur Mitzi Yellow Clarity, ur Turbid(A) [...] tendency for uric acid stone formation. Source: [facility] Current Interpretive Data was last revised on [...] Reflex to microscopic UA will be performed. [facility] Urine, clean voided 08/21/2024 6:01 PM ACCOUNT MANAGER EM[employer]OYEE [employer]EFITS 08/21/2024 6:06 PM ACCOUNT MANAGER EM[employer]OYEE [employer]EFITS Bobby Ya MD LAB MICROBIOLOGY - GENERAL ORDERABLES Final Result Performing Organization Address [facility]/ZIP Co de Phone Number [facility] [place] [address] Department [place] [address] * (ABNORMAL) Urinalysis, microscopic only (08/21/2024 6:01 PM [employer]OUNT MANAGER [employer]EE [employer]EFITS) WBC, ur >50(A) 0 - 5 /HPF RBC, ur >50(A) 0 - 2 /HPF [facility] Epithelial cells, squamous, ur 21-50(A) 0 - 5 /HPF [facility] Culture Reflex Comment Reflex to urine culture will be performed. [facility] Urine, clean voided 08/21/2024 6:01 PM [employer]OUNT MANAGER [employer]EE [employer]EFITS 08/21/2024 6:06 PM ACCOUNT MANAGER EM[employer]OYEE [employer]ENEFITS Bobby Ya MD LAB URINE ORDERABLES Final Result Performing Organization Address [facility] Co de Phone Number [facility] [phone] Department [place] [address] * Urine culture Urine, clean voided (08/21/2024 6:01 PM ACCOUNT MANAGER EMPLOYEE [employer]ENEFITS) Report Final Report: Less than 100,000 colonies/mL (clinically insignificant growth based on current clinical standards) Comment:Testing performed by : [facility], [address] [place]., [address] Organism (CLINICALLY INSIGNIFICANT GROWTH [facility] Urine, clean voided 08/21/2024 6:01 PM [employer]OUNT MANAGER [employer]EFITS 08/21/2024 8:14 PM ACCOUNT MANAGER EM[employer]OYEE [employer]EFITS Narrative [facility] - 08/23/2024 7:20 AM ACCOUNT MANAGER [employer]EE [employer]EFITS Urine culture reflexed based upon urinalysis results. Testing performed by [facility] ([phone]) Bobby Ya MD LAB MICROBIOLOGY - GENERAL ORDERABLES Final Result Performing Organization Address [facility] Co de Phone Number [facility] [address] Department [place] [address] * CT Chest Abdomen Pelvis WO Contrast (08/21/2024 4:56 PM ACCOUNT MANAGER [employer]EE [employer]EFITS) Anatomical Region Laterality Modality Body N/A Computed Tomogra phy 08/21/2024 5:31 PM [employer]OUNT MANAGER [employer]EE [employer]EFITS Impressions 08/22/2024 2:24 PM [employer]OUNT MANAGER [employer]EE [employer]EFITS Moderate loculated left pleural effusion with left [...] Priscila Ochoa M.D. Narrative 08/22/2024 2:24 PM [employer]OUNT MANAGER EM[employer]OYEE [employer]EFITS EXAM: CT CHEST, ABDOMEN AND PELVIS WITHOUT [...] noted without pericardial effusion..Atherosclerotic nonaneurysmal aorta with [id number] calcified plaque and mild aortic valvular calcification [...] noted without pericardial effusion..Atherosclerotic nonaneurysmal aorta with ontn-[id number] calcified plaque and mild aortic valvular calcification [...] Iron profile w/ IBC (08/21/2024 7:44 AM ACCOUNT MANAGER EMPLOYEE [employer]ENEFITS) Iron 164(H) 35 - 145 mcg/dl TIBC 254 250 - 400 mcg/dL [facility] Transferrin saturation 65(H) 20 - 50 % [facility] Blood 08/21/2024 7:44 AM [employer]OUNT MANAGER [employer]EE [employer]EFITS 08/21/2024 9:19 AM ACCOUNT MANAGER EMPLOYEE BENEFITS us Kala Barbosa NP LAB BLOOD ORDERABLES Final R esult [facility] [address] Department of Laboratories [place], [place] [id number] * Blood culture Blood (08/21/2024 7:44 AM ACCOUNT MANAGER EMPLOYEE BENEFITS) Report Final Report: No growth Comment:Testing performed by : [facility], [address] [facility], [place]., [address] Blood 08/21/2024 7:44 AM ACCOUNT MANAGER [employer]OYEE [employer]EFITS 08/21/2024 12:57 PM [employer]OUNT MANAGER EM[employer]OYEE [employer]EFITS Narrative [facility] - 08/25/2024 4:00 PM ACCOUNT MANAGER EMPLOYEE B[employer]EFITS From a different site than #1. Collection->Peripheral [...] performance characteristics have been verified by the [facility]. For questions about this culture, contact the Microbiology Laboratory at [phone]. Interpretive data was last revised on 24. Kala Barbosa NP LAB MICROBIOLOGY - GENERAL O RDERABLES Final Result [facility] [place] [address] Department [place] [address] * Blood culture Blood (08/21/2024 7:44 AM ACCOUNT MANAGER EMPLOYEE BENEFITS) Report Final Report: No growth Comment:Testing performed by : [facility], [address] [place]., [address] Blood 08/21/2024 7:44 AM ACCOUNT MANAGER EMPLOYEE [employer]EFITS 08/21/2024 12:57 PM ACCOUNT MANAGER EMPLOYEE BENEFITS Andree Haq 08/25/2024 4:00 PM ACCOUNT MANAGER EMPLOYEE [employer]EFITS Collection->Peripheral 1. Blood cultures are incubated for [...] performance characteristics have been verified by the [facility]. For questions about this culture, contact the Microbiology Laboratory at [phone]. Interpretive data was last revised on 24. Kala Barbosa NP LAB MICROBIOLOGY - GENERAL O RDERABLES Final Result Performing Organization Address [facility] Co de Phone Number [facility] [place] [address] Department of Active [employer] [place], [place] [id number] * Folate (08/21/2024 7:44 AM ACCOUNT MANAGER EMPLOYEE [employer]ENEFITS) Folic acid >20.0 >=5.0 ng/mL Comment:Hemolysis present. R esults may be affected. Blood 08/21/2024 7:44 AM ACCOUNT MANAGER EM[employer]OYEE BENEFITS 08/21/2024 9:19 AM ACCOUNT MANAGER EMPLOYEE BENEFITS Kala Barbosa NP LAB BLOOD ORDERABLES Final R esult Performing Organization Address [facility] Co de Phone Number [facility] [address] Department of Active [employer] [place], [place] [id number] * (ABNORMAL) Vitamin B12 (08/21/2024 7:44 AM ACCOUNT MANAGER EMPLOYEE [employer]ENEFITS) Vitamin B12 1,704(H) 230 - 1,250 pg/mL Blood 08/21/2024 7:44 AM ACCOUNT MANAGER [employer]EE [employer]EFITS 08/21/2024 9:19 AM ACCOUNT MANAGER EMPLOYEE BENEFITS Lubdon Barbosa NP LAB BLOOD ORDERABLES Final R esult Performing Organization Address [facility] Co de Phone Number [facility] [place] [address] Department [place] [address] * (ABNORMAL) eGFR (08/21/2024 2:52 AM ACCOUNT MANAGER EM[employer]OYEE [employer]EFITS) eGFR 4(L) >=60 mL/min/1. 73 m2 Comment: [...] last reviewed 2021. Blood 08/21/2024 2:52 AM ACCOUNT MANAGER EM[employer]OYEE [employer]EFITS 08/21/2024 3:17 AM ACCOUNT MANAGER EM[employer]OYEE B[employer]EFITS Kala Barbosa NP LAB BLOOD ORDERABLES Final R esult Performing Organization Address City/[facility] Co de Phone Number [place] [place] [phone] Department [place] [address] * (ABNORMAL) Differential, auto (08/21/2024 2:52 AM ACCOUNT MANAGER EMPLOYEE [employer]EFITS) Neutrophil abs 9.6(H) 1.5 - 6.5 K/cumm Imm gran abs 0.2(H) 0.0 - 0.1 K/cumm [facility] Lymphocyte abs 1.0 0.8 - 3.3 K/cumm [facility] Monocyte abs 1.4(H) 0.2 - 0.8 K/cumm [facility] Eosinophil abs 0.3 0.0 - 0.5 K/cumm [facility] Basophil abs 0.1 0.0 - 0.1 K/cumm [facility] Neutrophil pct 76.2 % [facility] Comment: Interpretive Data Percent cell count reference ranges are not reported, since discordance with absolute values may lead to misinterpretation of CBC data. Current Interpretive Data was last revised on 2017. Imm gran pct 1.4 % [facility] Comment: Interpretive Data Percent cell count reference ranges are not reported, since discordance with absolute values may lead to misinterpretation of CBC data. Current Interpretive Data was last revised on 2017. Lymphocyte pct 8.2 % [facility] Comment: Interpretive Data Percent cell count reference ranges are not reported, since discordance with absolute values may lead to misinterpretation of CBC data. Current Interpretive Data was last revised on 2017. Monocyte pct 11.4 % [facility] Comment: Interpretive Data Percent cell count reference ranges are not reported, since discordance with absolute values may lead to misinterpretation of CBC data. Current Interpretive Data was last revised on 2017. Eosinophil pct 2.1 % [facility] Comment: Interpretive Data Percent cell count reference ranges are not reported, since discordance with absolute values may lead to misinterpretation of CBC data. Current Interpretive Data was last revised on 2017. Basophil pct 0.7 % [facility] Comment: Interpretive Data Percent cell count reference ranges are not reported, since discordance with absolute values may lead to misinterpretation of CBC data. Current Interpretive Data was last revised on 2017. Blood 08/21/2024 2:52 AM ACCOUNT MANAGER EM[employer]OYEE BENEFITS 08/21/2024 3:18 AM ACCOUNT MANAGER EMPLOYEE BENEFITS us Kala Barbosa NP LAB BLOOD ORDERABLES Final R esult [facility] [place] [address] Department [place] [address] * (ABNORMAL) CBC with auto differential (08/21/2024 2:52 AM ACCOUNT MANAGER EMPLOYEE BENEFITS) WBC 12.6(H) 3.8 - 9.9 K/cumm Hgb [...] K/cumm [facility] Blood 08/21/2024 2:52 AM ACCOUNT MANAGER EM[employer]OYEE BENEFITS 08/21/2024 3:18 AM ACCOUNT MANAGER EMPLOYEE BENEFITS us Kala Barbosa NP LAB BLOOD ORDERABLES Final R esult [facility] [address] Department [place] [address] * (ABNORMAL) Comprehensive metabolic panel (08/21/2024 2:52 AM ACCOUNT MANAGER EMPLOYEE BENEFITS) Sodium 136 135 - 145 mmol/L Potassium, pl 3.3 3.3 - 4.9 mmol/L [facility] Chloride 94(L) 97 - 110 mmol/L [facility] CO2 28 22 - 32 mmol/L [facility] Anion gap 14 2 - 15 mmol/L [facility] BUN 39(H) 6 - 25 mg/dL [facility] Creatinine 10.12(H) 0.60 - 1.10 mg/dL [facility] Glucose 100 70 - 199 mg/dL [facility] Comment: Interpretive Data Fasting glucose >/= 126 [...] Units/L [facility] Blood 08/21/2024 2:52 AM ACCOUNT MANAGER EM[employer]OYEE BENEFITS 08/21/2024 3:17 AM ACCOUNT MANAGER EMPLOYEE BENEFITS us Kala Barbosa NP LAB BLOOD ORDERABLES Final R esult [facility] [address] Department of Laboratories [place], [place] [id number] * XR Chest 1 Vw Portable (08/21/2024 1:09 AM ACCOUNT MANAGER EMPLOYEE BENEFITS) Anatomical Region Laterality Modality Body, Chest N/A Computed Radiogr aphy 08/21/2024 8:04 AM ACCOUNT MANAGER EMPLOYEE BENEFITS Impressions 08/21/2024 8:04 AM ACCOUNT MANAGER EMPLOYEE BENEFITS CARDIOMEGALY WITH CONSOLIDATING OPACITY IN THE LEFT BASE AND HAZY OPACITY IN THE RIGHT BASE WITH FLUID IN THE FISSURE. A LATERAL CHEST VIEW OR CT OF THE CHEST IS SUGGESTED TO EVALUATE THE LUNG BASES. Electronically signed by: Sulaiman Xie M.D. Narrative 08/21/2024 8:04 AM ACCOUNT MANAGER EMPLOYEE BENEFITS EXAMINATION: XR CHEST 1 VIEW HISTORY: Elevated [...] signed by: Sulaiman Xie M.D. Susan Salcedo [employer] IMG XR PROCEDURES Fi nal Result * (ABNORMAL) Potassium, whole blood (08/21/2024 12:48 AM ACCOUNT MANAGER EMPLOYEE BENEFITS) Potassium, bld 3.1(L) 3.3 - 4.9 mmol/L Comment: Interpretive Data This method is not able to assess for hemolysis, which may falsely increase potassium concentrations. If further testing is needed to evaluate this result, consider in-laboratory plasma potassium. Current Interpretive Data was last revised on 2022. Blood 08/21/2024 12:4 8 AM ACCOUNT MANAGER EM[employer]OYEE BENEFITS 08/21/2024 12:59 AM ACCOUNT MANAGER EMPLOYEE BENEFITS Susan Salcedo NP LAB BLOOD ORDERABLES Final Result [facility] [place] [address] Department [place] [address] * (ABNORMAL) Hemoglobin and hematocrit (08/21/2024 12:48 AM ACCOUNT MANAGER EMPLOYEE BENEFITS) Hgb 7.2(L) 11.9 - 15.5 g/dL Hct 23.7(L) 35.6 - 45.5 % [facility] Blood 08/21/2024 12:4 8 AM ACCOUNT MANAGER EM[employer]OYEE BENEFITS 08/21/2024 1:00 AM ACCOUNT MANAGER EMPLOYEE BENEFITS Susan Salcedo NP LAB BLOOD ORDERABLES Final Result Performing Organization Address [facility] Co de Phone Number [place] [address] [facility] [place] [address] * Transfuse RBC (08/20/2024 11:45 PM ACCOUNT MANAGER EMPLOYEE BENEFITS) Blood Susan Salcedo NP BLOOD TRANSFUSION OR DERABLES Final Result Performing Organization Address [facility] de Phone Number [place] [phone] [address] [facility] [place] [address] * Prepare RBC: 1 Units (08/20/2024 8:06 PM ACCOUNT MANAGER EMPLOYEE BENEFITS) Pathologist [facility] Product code [id number] Unit Number [id number] [facility] Product Blood Type BPOS [facility] Dispense Status PRESUMED TRANSFUSED [facility] Blood 08/20/2024 8:06 PM ACCOUNT MANAGER EMPLOYEE BENEFITS Narrative [facility] - 08/21/2024 10:15 AM ACCOUNT MANAGER EM[employer]OYEE BENEFITS Are special requirements needed? (All products are leukoreduced and CMV- safe)- >No Date required:-20240820 LRRBC # of Gacax-0-Dgfja Reasons:-Hgb <7 g/dL} Susan Salcedo NP BLOOD BANK PRODUCT O RDERABLES Final Result Performing Organization Address [facility] de Phone Number [place] [address] [facility] [place] [address] * (ABNORMAL) aPTT (08/20/2024 8:02 PM ACCOUNT MANAGER EMPLOYEE BENEFITS) aPTT 53(H) 28 - 38 sec Comment: Interpretive Data Heparin therapeutic range: 66.0 - 100.0 seconds. Range based on correlation with therapeutic heparin activity range of 0.3 - 0.7 Units/mL. Current interpretive data was last revised on 2023. Blood 08/20/2024 8:02 PM ACCOUNT MANAGER EM[employer]EE [employer]ENEFITS 08/20/2024 8:26 PM ACCOUNT MANAGER EMPLOYEE BENEFITS Dominga KNAPP LAB BLOOD ORDERABLES Final Resu lt Performing Organization Address [facility] de Phone Number [facility] [address] [address] [facility] [place] [address] * (ABNORMAL) Protime-INR (08/20/2024 8:02 PM ACCOUNT MANAGER EMPLOYEE BENEFITS) PT 22.7(H) 9.7 - 13.0 sec INR 2.07(H) 0.90 - 1.20 [facility] Comment: Interpretive data Oral anticoagulant therapeutic ranges: Venous thromboembolism prophylaxis or treatment: 2.0-3.0 CARDIOLOGY Standard range: 2.0-3.0 High-intensity range: 2.5-3.5 Refer to indication-specific guidelines for appropriate target ranges for prosthetic heart valve replacement. Current interpretive data was last revised on 2019. Blood 08/20/2024 8:02 PM ACCOUNT MANAGER EMPLOYEE BENEFITS 08/20/2024 8:26 PM ACCOUNT MANAGER EMPLOYEE BENEFITS Result [facility] Dominga KNAPP LAB BLOOD ORDERABLES Final Resu lt Performing Organization Address [facility] de Phone Number [facility] [address] [address] [facility] [place] [address] * Type and screen (08/20/2024 8:02 PM ACCOUNT MANAGER EMPLOYEE BENEFITS) Arianna, indirect Negative ABO Rh B Positive [facility] Blood 08/20/2024 8:02 PM ACCOUNT MANAGER EM[employer]EE BENEFITS 08/20/2024 8:26 PM ACCOUNT MANAGER EMPLOYEE BENEFITS Narrative [facility] - 08/20/2024 9:05 PM ACCOUNT MANAGER EMPLOYEE BENEFITS Has the patient had Daratumumab or Isatuximab in the past 6 months?->Unknown Dominga KNAPP LAB BLOOD BANK TEST ORDERABLES Final Result Performing Organization Address [facility] [facility] Co de Phone Number LAINE TOWNSEND [address] Department [place] [address] * (ABNORMAL) eGFR (08/20/2024 1:06 PM [employer]EF[employer]) eGFR 4(L) >=60 mL/min/1. 73 m2 Comment: [...] last reviewed 2021. Blood 08/20/2024 1:06 PM [employer] 08/20/2024 1:06 PM [employer]EFITS Alcides KNAPP LAB BLOOD ORDERABLES Final Result Performing Organization Address City/[facility] Co de Phone Number LAINE TOWNSEND [address] Department [place] [address] * (ABNORMAL) Differential, auto (08/20/2024 1:06 PM [employer]EFITS) Neutrophil abs 9.9(H) 1.5 - 6.5 K/cumm Imm gran abs 0.2(H) 0.0 - 0.1 K/cumm [facility] Lymphocyte abs 0.8 0.8 - 3.3 K/cumm [facility] Monocyte abs 1.1(H) 0.2 - 0.8 K/cumm [facility] Eosinophil abs 0.3 0.0 - 0.5 K/cumm [facility] Basophil abs 0.1 0.0 - 0.1 K/cumm [facility] Neutrophil pct 80.3 % [facility] Comment: Interpretive Data Percent cell count reference ranges are not reported, since discordance with absolute values may lead to misinterpretation of CBC data. Current Interpretive Data was last revised on 2017. Imm gran pct 1.4 % [facility] Comment: Interpretive Data Percent cell count reference ranges are not reported, since discordance with absolute values may lead to misinterpretation of CBC data. Current Interpretive Data was last revised on 2017. Lymphocyte pct 6.4 % [facility] Comment: Interpretive Data Percent cell count reference ranges are not reported, since discordance with absolute values may lead to misinterpretation of CBC data. Current Interpretive Data was last revised on 2017. Monocyte pct 9.1 % [facility] Comment: Interpretive Data Percent cell count reference ranges are not reported, since discordance with absolute values may lead to misinterpretation of CBC data. Current Interpretive Data was last revised on 2017. Eosinophil pct 2.1 % [facility] Comment: Interpretive Data Percent cell count reference ranges are not reported, since discordance with absolute values may lead to misinterpretation of CBC data. Current Interpretive Data was last revised on 2017. Basophil pct 0.7 % [facility] Comment: Interpretive Data Percent cell count reference ranges are not reported, since discordance with absolute values may lead to misinterpretation of CBC data. Current Interpretive Data was last revised on 2017. Blood 08/20/2024 1:06 PM [employer]ITS 08/20/2024 1:06 PM [employer]OUNT [employer]ENEFITS us Alcieds KNAPP LAB BLOOD ORDERABLES Final Result LAINE T[place]NSEND [address] Department [place] [address] * (ABNORMAL) CBC with auto differential (08/20/2024 1:06 PM [employer]EF[employer]) WBC 12.3(H) 3.8 - 9.9 K/cumm Hgb 6.3(C) 11.9 - 15.5 g/dL [facility] Comment:Critical result call ed to and read back by MARCIAL CASTLE on 08 20 2024 at 1344 to Lima Huffman. Hct 21.7(L) 35.6 - 45.5 % [facility] [...] K/cumm [facility] Blood 08/20/2024 1:06 PM [employer] 08/20/2024 1:06 PM [employer]EF[employer] Alcides KNAPP LAB BLOOD ORDERABLES Final Result LAINE [place]END [address] Department [place] [address] * Magnesium (08/20/2024 1:06 PM [employer]OUNT MANAGER [employer]EFITS) Pathologist [facility] Magnesium 1.9 1.4 - 2.5 mg/dL Blood 08/20/2024 1:06 PM [employer] 08/20/2024 1:06 PM [employer]EF[employer] Alcides KNAPP LAB BLOOD ORDERABLES Final Result LAINE TOWNSEND [address] Department [place] [address] * (ABNORMAL) Comprehensive metabolic panel (08/20/2024 1:06 PM [employer]EF[employer]) Sodium 134(L) 135 - 145 mmol/L Potassium, [...] Units/L [facility] Blood 08/20/2024 1:06 PM [employer] 08/20/2024 1:06 PM [employer] us Alcides KNAPP LAB BLOOD ORDERABLES Final Result LAINE T[place]END [address] Department [place] [address] * ECG 12 lead (08/20/2024 12:45 PM [employer]EF[employer]) 08/20/2024 12:4 5 PM [employer] Narrative [facility] - 08/20/2024 7:49 PM [employer] Vent Rate: 117 bpm RR Interval: 511 msec ID Interval: 0 msec QRS Duration: 116 msec QT Interval: 361 msec QTC Interval: 430 msec P-R-T Hearne: 0 - 8 - 210 degrees IMPRESSION: ATRIAL FIBRILLATION WITH RAPID VENTRICULAR RESPONSE MODERATE INTRAVENTRICULAR CONDUCTION DELAY [110+ ms QRS DURATION] ST DEVIATION AND MODERATE T-WAVE ABNORMALITY, CONSIDER LATERAL ISCHEMIA [-0.1+ mV T-WAVE IN I/aVL/V5/V6] ABNORMAL ECG Electronically Signed By: Dr. Noelle Joiner [facility] us Alcides KNAPP ECG ORDERABLES Final Result [facility] * (ABNORMAL) Differential, auto (08/02/2024 5:45 AM [employer]OUNT MANA[employer]EE [employer]EFITS) Neutrophil abs 8.3(H) 1.5 - 6.5 K/cumm [...] revised on 2017. Monocyte pct 15.6 % [facility] Comment: Interpretive Data Percent cell count reference ranges are not reported, since discordance with absolute values may lead to misinterpretation of CBC data. Current Interpretive Data was last revised on 2017. Eosinophil pct 2.8 % [facility] Comment: Interpretive Data Percent cell count reference [...] revised on 2017. Blood 08/02/2024 5:45 AM [employer] 08/02/2024 6:22 AM [employer] Padmini Mason NP LAB BLOOD ORDERABLES Fi nal Result [facility] [address] Department [place] [address] * (ABNORMAL) CBC with auto differential (08/02/2024 5:45 AM [employer]OUNT MA[employer]GER [employer]EFITS) WBC 12.4(H) 3.8 - 9.9 K/cumm Hgb 7.5(L) 11.9 - 15.5 g/dL [facility] Hct 28.7(L) 35.6 - 45.5 % [facility] Plt 402(H) 150 - 400 K/cumm [facility] MPV 11.2 9.1 - 12.3 fL [facility] RBC 2.53(L) 3.90 - 5.20 M/cumm [facility] MCV 113.4(H) 81.3 - 96.4 fL [facility] MCH 29.6 27.1 - 33.3 pg [facility] MCHC 26.1(L) 32.3 - 35.7 g/dL [facility] RDW CV 20.7(H) 11.1 - 14.9 % [facility] RDW SD 85.8(H) 35.7 - 48.1 fL [facility] NRBC abs 0.08(H) 0.00 - 0.01 K/cumm [facility] Blood 08/02/2024 5:45 AM [employer] 08/02/2024 6:22 AM [employer]OUNT MANAGER [employer]EE BENEFITS Padmini Mason [employer] LAB BLOOD ORDERABLES Fi nal Result Performing Organization Address [facility]/ZIP Co de Phone Number LAINE TOWNSEND [phone] Department [place] [address] * (ABNORMAL) eGFR (08/01/2024 6:03 AM ACCOUNT MANAGER [employer]EE [employer]EFITS) eGFR 4(L) >=60 mL/min/1. 73 m2 Comment: [...] last reviewed 2021. Blood 08/01/2024 6:03 AM [employer]OUNT [employer] 08/01/2024 6:37 AM [employer]OUNT MANAGER [employer]EE [employer]EFITS Tanisha Winter [employer] LAB BLOOD ORDERABLES Final Resul t Performing Organization Address City/[facility]/ZIP Co de Phone Number LAINE TOWNSEND [phone] Department of [employer] [place], [place] [id number] * (ABNORMAL) Basic metabolic panel (08/01/2024 6:03 AM [employer]OUNT MANAGER [employer]EFITS) Sodium 136 135 - 145 mmol/L Potassium, pl 3.9 3.3 - 4.9 mmol/L [facility] Chloride 95(L) 97 - 110 mmol/L [facility] CO2 22 22 - 32 mmol/L [facility] Anion gap 19(H) 2 - 15 mmol/L [facility] BUN 66(H) 6 - 25 mg/dL [facility] Creatinine 9.73(H) 0.60 - 1.10 mg/dL [facility] Glucose 90 70 - 199 mg/dL [facility] Comment: Interpretive Data Fasting glucose >/= [...] 2022. Calcium 9.1 8.5 - 10.3 mg/dL [facility] Blood 08/01/2024 6:03 AM [employer]EFITS 08/01/2024 6:37 AM ACCOUNT MANAGER [employer]EE [employer]ENEFITS us Tanisha Winter NP LAB BLOOD ORDERABLES Final Resul t [facility] [address] Department [place] [address] * (ABNORMAL) eGFR (07/31/2024 8:40 AM ACCOUNT MANAGER [employer]EE [employer]EFITS) eGFR 4(L) >=60 mL/min/1. 73 m2 Comment: [...] last reviewed 2021. Blood 07/31/2024 8:40 AM [employer]OUNT [employer]EFITS 07/31/2024 9:42 AM [employer]OUNT MANA[employer]EE [employer]EFITS Tanisha Winter NP LAB BLOOD ORDERABLES Final Resul t Performing Organization Address [facility]/State/[place] [address] [address] Department [place] [address] * (ABNORMAL) Basic metabolic panel (07/31/2024 8:40 AM ACCOUNT MANAGER [employer]EE [employer]ENEFITS) Sodium 139 135 - 145 mmol/L Potassium, [...] mg/dL [facility] Blood 07/31/2024 8:40 AM [employer]OUNT [employer]EFITS 07/31/2024 9:42 AM ACCOUNT MANA[employer]EE [employer]EFITS Tanisha Winter NP LAB BLOOD ORDERAB[place] [address] [address] [place] [address] from Last 3 Months Insurance [employer] MED[employer]ARE [employer] MED[employer] Advance Directives For more information, please contact: [phone] * Full Code (Latest Code Status on File) Date Activated Date Inactivated Comments 08/21/2024 2:16 AM 08/26/2024 10:55 PM * Full Code Date Activated Date Inactivated Comments 07/25/2024 6:59 PM 08/04/2024 7:42 PM * Full Code Date Activated Date Inactivated Comments 07/21/2024 6:30 PM 07/25/2024 6:50 PM Care Teams Commutator Presser Relationship Specialty Start Date End Date Porsche Becker NP [address] [facility] [address] [place] [address] PCP - General Nurse Practitioner 08/19/24 Mookie Dubois MD Referring Physician Nephrology 02/20/22 Jama Hoskins MD [address] [facility] [address] [facility] [address] [place], [place] [id number] Consulting Physician Cardiology 02/20/24
== END 2024-10-28 13:29 | disposition home or self-care (01) ==
LOC: ANHSURGERY 13:33
PROVIDERS: Anesthesiology; PCP Nurse Practitioner Family; Visit Provider Urology
DX: N20.0 Calculus of kidney (principal); D64.9 Anemia, unspecified; N18.9 Chronic kidney disease, unspecified
CPT/HCPCS: 36415; 80048; 85014; 85018; 87086

== ENCOUNTER 2024-10-31 00:45 | Day surgery (SDC) | payer MEDICARE, MEDICAID, SELFPAY ==
[2024-09-30 15:43] VITALS: BMI 38.5
--- NOTE | 2024-09-30 16:12 | PC.NURSE ---
Report to the Outpatient Waiting Room, entrance under the green pavilion located off [facility], at time __11:00AM on date ___10/03/24____. Planned Procedure Time: ___1:00PM .? Time changes happen often and if your time is changed the preop area will call you the afternoon before. - You and your visitor will be asked to self-screen and do not enter if you have any COVID symptoms. Please call surgeon if you need to reschedule. - A mask is optional within the hospital at this time. Patients may have clear liquids (water, carbonated beverages, clear teas, apple juice) until 3 hours prior to surgery (10:00AM) with a maximum of 20 ounces. - No food from midnight until time of surgery and no smoking, or chewing tobacco (or any form of nicotine). No chewing gum, candy or mints. Take only the following medications with a SIP of water on the morning of surgery: ____AMIODARONE, LEVOTHYROXINE, MIDODRINE, NEW ANTIBIOTIC(PATIENT UNSURE OF NAME) DO NOT STOP ANY OF YOUR OTHER PRESCRIPTION MEDICATIONS PRIOR TO SURGERY EXCEPT THE FOLLOWING Hold all vitamins and supplements for 3 days per anesthesiologist-LAST DOSE 09/30/24. Medications to discontinue per physician ___HOLD ELIQUIS 2 DAYS PRE-OP PER RENAL CLINIC & DR TSAI Date to take last dose____09/30/24 Please no make-up, nail icelandic, hairspray, perfume, deodorant, or body powder the day of surgery.? No jewelry (including any body piercings) or valuables the day of surgery, leave them at home.? Please take a shower or bath the night before, or the morning of, surgery with an antibacterial soap.? Wear comfortable, loose fitting clothing.? - Jewelry must be removed prior to entering the operating room.? Rings and piercings that are not removed may be cut off. - The hospital will not accept responsibility for valuables.? - Please leave all valuables, including medications, at home the day of surgery. If you are going home after surgery, a licensed cat driver must drive you home.? - NO public transportation without another adult if you receive anesthesia. - We recommend that an adult stay with you for 24 hours following discharge. - We also recommend that you do not drive, make important decision, drink alcoholic beverages, or take any drugs that were not prescribed by your health care provider for at least 24 hours after your discharge time. Follow any additional instructions given to you from your surgeon. Telephone instructions given to ___PATIENT and asked if any additional questions and then verbalized understanding. Patient advised to call surgeon office or pre surgery nurse liaison [phone] if any additional questions.
--- OUTSIDE RECORDS SUMMARY | 2024-10-03 00:50 | XMS_ITS ---
Author Organization [facility] [address] Address [address] [place] [address] Care Team Providers Care Small Stock Facer Name Role Phone Mookie Dubois MD Unavailable [phone] Abigail Dougherty RN Unavailable [phone] Jama Hoskins MD Unavailable [phone] Porsche Becker NP Primary Care Provider [phone] Dialysis Access Sites Type Status Location Placement Date Removal Da te Peritoneal Dialysis Catheter Left lower abdomen Active Left Abdomen (side) - Lower Procedures Procedure Name Priority Date/Time Associated Diagnosis Comments DIFFERENTIAL AUTO Routine 08/26/2024 2:3 6 AM THERMAL ENGINEER CBC WITH AUTO DIFFERENTIAL Routine 08/26/2024 2:36 AM THERMAL ENGINEER CONTINUOUS CYCLIC PERITONEAL DIALYSIS (CCPD) Routine 08/26/2024 12:31 AM THERMAL ENGINEER XR CHEST 1 VIEW IP Routine 08/25/2024 3:10 PM THERMAL ENGINEER CELL DIFFERENTIAL, BODY FLUID Routine 08/25/2024 2:32 PM THERMAL ENGINEER AMYLASE, BODY FLUID Routine 08/25/2024 2 :32 PM THERMAL ENGINEER CELL COUNT W/REFLEX DIFFERENTIAL, BODY FLUID Routine 08/25/2024 2:32 PM THERMAL ENGINEER GLUCOSE, BODY FLUID Routine 08/25/2024 2 :32 PM THERMAL ENGINEER LACTATE DEHYDROGENASE, BODY FLUID Routine 08/25/2024 2:32 PM THERMAL ENGINEER PROTEIN, BODY FLUID Routine 08/25/2024 2 :32 PM THERMAL ENGINEER XR CHEST PA LATERAL 2 VIEWS IP Routine 08/25/2024 8:27 AM THERMAL ENGINEER DIFFERENTIAL AUTO Routine 08/25/2024 3:0 3 AM THERMAL ENGINEER CBC WITH AUTO DIFFERENTIAL Routine 08/25/2024 3:03 AM THERMAL ENGINEER CYTOLOGY Routine 08/25/2024 12:00 AM THERMAL ENGINEER DIFFERENTIAL AUTO Routine 08/24/2024 4:3 4 AM THERMAL ENGINEER CBC WITH AUTO DIFFERENTIAL Routine 08/24/2024 4:34 AM THERMAL ENGINEER EGFR Routine 08/22/2024 9:54 AM THERMAL ENGINEER DIFFERENTIAL AUTO Routine 08/22/2024 9:5 4 AM THERMAL ENGINEER COMPREHENSIVE METABOLIC PANEL Routine 08/22/2024 9:54 AM THERMAL ENGINEER CBC WITH AUTO DIFFERENTIAL Routine 08/22/2024 9:54 AM THERMAL ENGINEER URINALYSIS, MICROSCOPIC ONLY Routine 08/21/2024 6:01 PM THERMAL ENGINEER URINE CULTURE Routine 08/21/2024 6:01 PM THERMAL ENGINEER URINALYSIS AND REFLEX TO MICROSCOPIC AND CULTURE Routine 08/21/2024 6:[address] CHEST ABDOMEN PELVIS WO CONTRAST ED Urgent/IP Urgent 08/21/2024 4:56 PM THERMAL ENGINEER VITAMIN B12 Routine 08/21/2024 7:44 AM THERMAL ENGINEER FOLATE Routine 08/21/2024 7:44 AM THERMAL ENGINEER IRON PROFILE W/ IBC Routine 08/21/2024 7 :44 AM THERMAL ENGINEER BLOOD CULTURE Routine 08/21/2024 7:44 AM THERMAL ENGINEER BLOOD CULTURE Routine 08/21/2024 7:44 AM THERMAL ENGINEER EGFR Routine 08/21/2024 2:52 AM THERMAL ENGINEER DIFFERENTIAL AUTO Routine 08/21/2024 2:5 2 AM THERMAL ENGINEER COMPREHENSIVE METABOLIC PANEL Routine 08/21/2024 2:52 AM THERMAL ENGINEER CBC WITH AUTO DIFFERENTIAL Routine 08/21/2024 2:52 AM THERMAL ENGINEER XR CHEST 1 VIEW ED 08/21/2024 1:09 AM THERMAL ENGINEER POTASSIUM, WHOLE BLOOD Timed 08/21/2024 12:48 AM THERMAL ENGINEER HEMOGLOBIN AND HEMATOCRIT Timed 08/21/2024 12:48 AM THERMAL ENGINEER TRANSFUSE RED BLOOD CELLS Timed 08/20/2024 9:36 PM THERMAL ENGINEER PREPARE RBC STAT 08/20/2024 8:06 PM THERMAL ENGINEER APTT STAT 08/20/2024 8:02 PM THERMAL ENGINEER PROTIME-INR STAT 08/20/2024 8:02 PM THERMAL ENGINEER TYPE AND SCREEN STAT 08/20/2024 8:02 PM THERMAL ENGINEER EGFR STAT 08/20/2024 1:06 PM THERMAL ENGINEER DIFFERENTIAL AUTO STAT 08/20/2024 1:0 6 PM THERMAL ENGINEER MAGNESIUM Routine 08/20/2024 1:06 PM THERMAL ENGINEER COMPREHENSIVE METABOLIC PANEL STAT 08/20/2024 1:06 PM THERMAL ENGINEER CBC WITH AUTO DIFFERENTIAL STAT 08/20/2024 1:06 PM THERMAL ENGINEER ECG 12-LEAD Routine 08/20/2024 12:45 PM THERMAL ENGINEER DIFFERENTIAL AUTO Routine 08/02/2024 5:4 5 AM THERMAL ENGINEER CBC WITH AUTO DIFFERENTIAL Routine 08/02/2024 5:45 AM THERMAL ENGINEER EGFR Routine 08/01/2024 6:03 AM THERMAL ENGINEER BASIC METABOLIC PANEL Routine 08/01/2024 6:03 AM THERMAL ENGINEER EGFR Routine 07/31/2024 8:40 AM THERMAL ENGINEER BASIC METABOLIC PANEL Routine 07/31/2024 8:40 AM THERMAL ENGINEER EGFR Routine 07/28/2024 4:32 AM THERMAL ENGINEER DIFFERENTIAL AUTO Routine 07/28/2024 4:3 2 AM THERMAL ENGINEER PHOSPHORUS Routine 07/28/2024 4:32 AM THERMAL ENGINEER CBC WITH AUTO DIFFERENTIAL Routine 07/28/2024 4:32 AM THERMAL ENGINEER COMPREHENSIVE METABOLIC PANEL Routine 07/28/2024 4:32 AM THERMAL ENGINEER XR KUB IP Routine 07/27/2024 10:38 AM THERMAL ENGINEER EGFR Routine 07/26/2024 11:38 AM THERMAL ENGINEER DIFFERENTIAL AUTO Routine 07/26/2024 11: 38 AM THERMAL ENGINEER CBC WITH AUTO DIFFERENTIAL Routine 07/26/2024 11:38 AM THERMAL ENGINEER COMPREHENSIVE METABOLIC PANEL Routine 07/26/2024 11:38 AM THERMAL ENGINEER CONTINUOUS AMBULATORY PERITONEAL DIALYSIS (CAPD) Routine 07/25/2024 3:08 PM THERMAL ENGINEER MANUAL DIFFERENTIAL Timed 07/25/2024 8 :10 AM THERMAL ENGINEER CBC WITH AUTO DIFFERENTIAL Timed 07/25/2024 8:10 AM THERMAL ENGINEER TYPE AND SCREEN Timed 07/25/2024 8:10 AM THERMAL ENGINEER EGFR Routine 07/24/2024 1:46 AM THERMAL ENGINEER CBC WITHOUT DIFFERENTIAL Routine 07/24/2024 1:46 AM THERMAL ENGINEER PHOSPHORUS Routine 07/24/2024 1:46 AM THERMAL ENGINEER MAGNESIUM Routine 07/24/2024 1:46 AM THERMAL ENGINEER BASIC METABOLIC PANEL Routine 07/24/2024 1:46 AM THERMAL ENGINEER EGFR Routine 07/23/2024 2:02 AM THERMAL ENGINEER PROTIME-INR Routine 07/23/2024 2:02 AM THERMAL ENGINEER CBC WITHOUT DIFFERENTIAL Routine 07/23/2024 2:02 AM THERMAL ENGINEER PHOSPHORUS Routine 07/23/2024 2:02 AM THERMAL ENGINEER MAGNESIUM Routine 07/23/2024 2:02 AM THERMAL ENGINEER BASIC METABOLIC PANEL Routine 07/23/2024 2:02 AM THERMAL ENGINEER CRITICAL CARE Routine 07/22/2024 8:22 AM THERMAL ENGINEER Paroxysmal atrial fibrillation (HCC) TRANSTHORACIC ECHO (TTE) COMPLETE W DOPPLER/CF W CONTRAST STAT 07/22/2024 7:00 AM THERMAL ENGINEER EGFR Routine 07/22/2024 5:41 AM THERMAL ENGINEER CBC WITHOUT DIFFERENTIAL Timed 07/22/2024 5:41 AM THERMAL ENGINEER PHOSPHORUS Routine 07/22/2024 5:41 AM THERMAL ENGINEER MAGNESIUM Routine 07/22/2024 5:41 AM THERMAL ENGINEER BASIC METABOLIC PANEL Routine 07/22/2024 5:41 AM THERMAL ENGINEER CELL DIFFERENTIAL, BODY FLUID Routine 07/22/2024 3:17 AM THERMAL ENGINEER CELL COUNT W/REFLEX DIFFERENTIAL, BODY FLUID Routine 07/22/2024 3:17 AM THERMAL ENGINEER URINALYSIS, MICROSCOPIC ONLY STAT 07/22/2024 1:57 AM THERMAL ENGINEER URINE CULTURE STAT 07/22/2024 1:57 AM THERMAL ENGINEER URINALYSIS AND REFLEX TO MICROSCOPIC AND CULTURE STAT 07/22/2024 1:57 AM THERMAL ENGINEER ECG 12-LEAD STAT 07/22/2024 1:33 AM THERMAL ENGINEER CBC WITHOUT DIFFERENTIAL Timed 07/22/2024 12:51 AM THERMAL ENGINEER CONTINUOUS AMBULATORY PERITONEAL DIALYSIS (CAPD) Routine 07/22/2024 12:31 AM THERMAL ENGINEER CONTINUOUS AMBULATORY PERITONEAL DIALYSIS (CAPD) Routine 07/21/2024 11:45 PM THERMAL ENGINEER BLOOD CULTURE STAT 07/21/2024 11:44 PM THERMAL ENGINEER BLOOD CULTURE STAT 07/21/2024 11:44 PM THERMAL ENGINEER CONTINUOUS AMBULATORY PERITONEAL DIALYSIS (CAPD) Routine 07/21/2024 11:43 PM THERMAL ENGINEER CTA ABDOMEN PELVIS W WO CONTRAST ED Urgent/IP Urgent 07/21/2024 10:13 PM THERMAL ENGINEER B CHECK SAMPLE STAT 07/21/2024 8:16 PM THERMAL ENGINEER CRITICAL CARE Routine 07/21/2024 7:48 PM THERMAL ENGINEER BETA-HYDROXYBUTYRATE Add-On 07/21/2024 6:55 PM THERMAL ENGINEER T4, FREE STAT 07/21/2024 6:55 PM THERMAL ENGINEER EGFR STAT 07/21/2024 6:55 PM THERMAL ENGINEER THYROID FUNCTION CASCADE STAT 07/21/2024 6:55 PM THERMAL ENGINEER PROTIME-INR STAT 07/21/2024 6:55 PM THERMAL ENGINEER APTT STAT 07/21/2024 6:55 PM THERMAL ENGINEER TYPE AND SCREEN Timed 07/21/2024 6:55 PM THERMAL ENGINEER CBC WITHOUT DIFFERENTIAL STAT 07/21/2024 6:55 PM THERMAL ENGINEER LACTATE STAT 07/21/2024 6:55 PM THERMAL ENGINEER CALCIUM,IONIZED, WHOLE BLOOD STAT 07/21/2024 6:55 PM THERMAL ENGINEER PHOSPHORUS STAT 07/21/2024 6:55 PM THERMAL ENGINEER HEPATIC FUNCTION PANEL STAT 07/21/2024 6:55 PM THERMAL ENGINEER BASIC METABOLIC PANEL STAT 07/21/2024 6:55 PM THERMAL ENGINEER MAGNESIUM STAT 07/21/2024 6:55 PM THERMAL ENGINEER INFECTION PREVENTION MRSA ONLY (STAPHYLOCOCCUS AUREUS) PCR Routine 07/21/2024 6:55 PM THERMAL ENGINEER XR CHEST 1 VIEW ED Urgent/IP Urgent 07/21/2024 6:42 PM THERMAL ENGINEER POCT GLUCOSE DEVICE Routine 07/21/2024 6 :33 PM THERMAL ENGINEER XR TRANSFER OF OUTSIDE FILMS Routine 07/21/2024 12:00 AM THERMAL ENGINEER US TRANSFER OF OUTSIDE FILMS Routine 07/19/2024 12:00 AM THERMAL ENGINEER XR TRANSFER OF OUTSIDE FILMS Routine 07/19/2024 12:00 AM THERMAL ENGINEER XR TRANSFER OF OUTSIDE FILMS Routine 07/18/2024 12:00 AM THERMAL ENGINEER XR TRANSFER OF OUTSIDE FILMS Routine 07/16/2024 12:00 AM THERMAL ENGINEER CARDIOLOGY DOCUMENT SCAN Routine 07/15/2024 10:[address] BODY OUTSIDE REFERENCE Routine 07/14/2024 12:00 AM THERMAL ENGINEER from Last 3 Months Allergies Active Allergy Reactions Criticality Noted Date Comments Aftab Inhibitors Angioedema High 08/09/2021 Azithromycin Agitation Low 08/09/2021 Grass Pollen Sneezing Low 03/23/2022 Medications Jennifer-Silvia 0.8 mg tabletIndications:Vit lin Deficiency Prevention Take 0.8 mg by mouth daily 11/19/19 22 Active sevelamer (RENVELA) 800 mg tabletIndications:Kevin al Osteodystrophy with Hyperphosphatemia Take 1 tablet (800 mg total) by mouth 3 (three) times a day with meals 01/03/20 22 Active levothyroxine (SYNTHROID) 25 mcg tabletIndications:hyp othyroidism Take 1 tablet (25 mcg total) by mouth daily 04/22/20 22 Active calcitRIOL (ROCALTROL) 0.5 mcg capsuleIndications:hy pocalcemia Take 0.25 mcg by mouth daily ONE TAB THREE DAYS A WEEK AND 2 TABS FOUR DAYS A WEEK Active midodrine (PROAMATINE) 5 mg tabletIndications:Sym ptomatic Orthostatic Hypotension Take 3 tablets (15 mg total) by mouth 3 (three) times a day before meals 810 tablet 08/04/19 25 025 Active furosemide (LASIX) 80 mg tabletIndications:Kevin al Disease with Edema Take 1 tablet (80 mg total) by mouth 2 (two) times a day rx #[id number] Active losartan (COZAAR) 50 mg tablet Take 1 tablet (50 mg total) by mouth daily 30 tablet 3 08/27/[address] (PROTONIX) 40 mg EC tabletIndications:Sal atment of Non-Bleeding Gastric Disorder Take 1 tablet (40 mg total) by mouth daily 30 tablet 08/26/19 25 Active metoprolol XL (TOPROL-XL) 25 mg extended release tablet Take 1 tablet (25 mg total) by mouth nightly 30 tablet 3 08/26/19 25 026 Active gentamicin (GARAMYCIN) 0.1 % creamIndications:Infe ction Prophylaxis Apply topically daily 15 g 08/27/19 25 Active apixaban (ELIQUIS) 5 mg tabletIndications:atr ial fibrillation Take 1 tablet (5 mg total) by mouth every 12 (twelve) hours 180 tablet 3 09/05/19 25 026 Active amiodarone (PACERONE) 200 mg tabletIndications:Pre vention of Recurrent Atrial Fibrillation Take 1 tablet (200 mg total) by mouth daily 90 tablet 3 09/05/19 25 026 Active apixaban (ELIQUIS) 5 mg tabletIndications:atr ial fibrillation Take 1 tablet (5 mg total) by mouth every 12 (twelve) hours 180 tablet 08/04/19 25 025 Discontin ued(Reord er) amiodarone (PACERONE) 200 mg tabletIndications:Pre vention of Recurrent Atrial Fibrillation Take 1 tablet (200 mg total) by mouth daily 90 tablet 08/07/19 25 025 Discontin ued(Reord er) Active Problems Problem Noted Date Diagnosed Date Anemia due to chronic kidney disease, on chronic dialysis 08/21/2024 Physical deconditioning 07/25/2024 Atrial fibrillation 08/10/2021 Immunizations Immunization Administration Dates Next Due Hep B Vaccine [...] materials from doctor or pharmacy Sometimes 08/07/2024 [facility] Utilities Answer Date Recorded In the past 12 months has th e [employer], gas, oil, or water [employer] threatened to shut off services in your [...] often do you attend chur ch or nondenominational services? Patient declined 07/26/2024 Do you belong to any clubs o r organizations such as latter day groups, unions, fraternal or athletic groups, or [...] very hard 07/26/2024 PHQ-2 Answer Date Recorded PHQ-2 Total Score (If total score is 3 or more points, staff should administer the PHQ-9) 0 08/21/2024 [place] [facility] [employer] - Occupational Stress [...] things needed for daily living? No 08/04/2024 PHQ-9 Answer Date Recorded PHQ-9 Total Score 4 08/21/2024 Housing Stability Vital Sign Answer Rafy e Recorded In the last 12 months, was t here a time when you were not able to pay the mortgage or rent on time? No 07/26/2024 In the past 12 months, how m any times have you moved where you were living? 0 07/26/2024 At any time in the past 12 m onths, were you homeless or living in a group home (including now)? No 07/26/2024 Personal Safety Answer Date Recorded Have you ever been in or are you currently in a harmful physical or emotional relationship or is someone making you feel afraid or unsafe? Denies 08/21/2024 Comments Unknown Sex and Gender Information Value Date Recorded Sex Assigned at Not on file 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 THERMAL ENGINEER Gender Identity Not on file Sexual Orientation Not on file Last Filed Vital Signs Vital Sign Reading Time Taken Comments Blood Pressure 93/68 08/26/2024 3:53 PM THERMAL ENGINEER Pulse 88 08/26/2024 11:45 AM THERMAL ENGINEER Temperature 36.8 C (98.3 F) 08/26/2024 3:53 PM THERMAL ENGINEER Respiratory Rate 18 08/26/2024 3:53 PM THERMAL ENGINEER Oxygen Saturation 100% 08/26/2024 3:53 PM THERMAL ENGINEER Inhaled Oxygen Concentration - - Weight 89 kg (196 lb 3.4 oz) 08/25/2024 8:00 PM THERMAL ENGINEER Height 152.4 cm (5') 08/21/2024 2:48 AM THERMAL ENGINEER Body Mass Index 38.32 08/21/2024 2:48 AM THERMAL ENGINEER Results * (ABNORMAL) Differential, auto (08/26/2024 2:36 AM THERMAL ENGINEER) Neutrophil abs 7.6(H) 1.5 - 6.5 K/cumm Imm gran abs 0.1 0.0 - 0.1 K/cumm [facility] Lymphocyte abs 0.6(L) 0.8 - 3.3 K/cumm [facility] Monocyte abs 1.3(H) 0.2 - 0.8 K/cumm [facility] Eosinophil abs 0.2 0.0 - 0.5 K/cumm [facility] Basophil abs 0.1 0.0 - 0.1 K/cumm [facility] Neutrophil pct 77.1 % [facility] Comment: Interpretive Data Percent cell count reference ranges are not reported, since discordance with absolute values may lead to misinterpretation of CBC data. Current Interpretive Data was last revised on 2017. Imm gran pct 1.3 % [facility] Comment: Interpretive Data Percent cell count reference ranges are not reported, since discordance with absolute values may lead to misinterpretation of CBC data. Current Interpretive Data was last revised on 2017. Lymphocyte pct 5.7 % [facility] Comment: Interpretive Data Percent cell count reference ranges are not reported, since discordance with absolute values may lead to misinterpretation of CBC data. Current Interpretive Data was last revised on 2017. Monocyte pct 13.0 % [facility] Comment: Interpretive Data Percent cell count reference ranges are not reported, since discordance with absolute values may lead to misinterpretation of CBC data. Current Interpretive Data was last revised on 2017. Eosinophil pct 2.3 % [facility] Comment: Interpretive Data Percent cell count reference ranges are not reported, since discordance with absolute values may lead to misinterpretation of CBC data. Current Interpretive Data was last revised on 2017. Basophil pct 0.6 % [facility] Comment: Interpretive Data Percent cell count reference ranges are not reported, since discordance with absolute values may lead to misinterpretation of CBC data. Current Interpretive Data was last revised on 2017. Blood 08/26/2024 2:36 AM THERMAL ENGINEER 08/26/2024 4:06 AM THERMAL ENGINEER Bobby Ya MD LAB BLOOD ORDERABLES Final Result Performing Organization Address City/[facility]/ZIP Co de Phone Number [place] [id number] [employer] [place], [place] [id number] * (ABNORMAL) CBC with auto differential (08/26/2024 2:36 AM THERMAL ENGINEER) WBC 9.9 3.8 - 9.9 K/cumm Hgb 7.2(L) 11.9 - 15.5 g/dL [facility] Hct 24.2(L) 35.6 - 45.5 % [facility] Plt 383 150 - 400 K/cumm [facility] MPV 8.7(L) 9.1 - 12.3 fL [facility] RBC 2.36(L) 3.90 - 5.20 M/cumm [facility] MCV 102.5(H) 81.3 - 96.4 fL [facility] MCH 30.5 27.1 - 33.3 pg [facility] MCHC 29.8(L) 32.3 - 35.7 g/dL [facility] RDW CV 15.9(H) 11.1 - 14.9 % [facility] RDW SD 58.7(H) 35.7 - 48.1 fL [facility] NRBC abs 0.00 0.00 - 0.01 K/cumm [facility] Blood 08/26/2024 2:36 AM THERMAL ENGINEER 08/26/2024 4:06 AM THERMAL ENGINEER Bobby Ya MD LAB BLOOD ORDERABLES Final Result Performing Organization Address City/[facility]/ZIP Co de Phone Number [place] [phone] Department [place] [address] * XR Chest 1 Vw Portable (08/25/2024 3:10 PM THERMAL ENGINEER) Anatomical Region Laterality Modality Body, Chest N/A Computed Radiogr aphy 08/25/2024 3:29 PM THERMAL ENGINEER Impressions 08/25/2024 3:29 PM THERMAL ENGINEER FINDINGS/IMPRESSION: Small bilateral pleural effusions. No consolidation. Borderline cardiomegaly. No acute osseous abnormality. Electronically signed by: Peter Porter II, D.O. Narrative 08/25/2024 3:29 PM THERMAL ENGINEER EXAMINATION: XR CHEST 1 VIEW DATE: 08/25/2024 2:10 PM INDICATION: Thoracentesis. COMPARISON: 09/17/2024. Procedure Note Peter Porter II, DO - 08/25/2024 EXAMINATION: XR CHEST 1 VIEW DATE: 08/25/2024 2:10 PM INDICATION: Thoracentesis. COMPARISON: 09/17/2024. IMPRESSION: FINDINGS/IMPRESSION: Small bilateral pleural effusions. No consolidation. Borderline cardiomegaly. No acute osseous abnormality. Electronically signed by: Peter Porter II, D.O. Charles Hendrickson MD IMG XR PROCEDURES Final Result * Cell Differential, Body Fluid (08/25/2024 2:32 PM THERMAL ENGINEER) Total cells diffed 82 % Comment: Interpretive Data Unless otherwise specified, the reference range and other method performance specifications have not been established for CSF/Body Fluid tests. The test results should be integrated into the clinical context for interpretation. Current interpretive data was last revised on 2019. Neutrophils, fld 2 % [facility] Lymphs, fld 95 % [facility] Eosinophils, fld 2 % [facility] Fluid 08/25/2024 2:32 PM THERMAL ENGINEER 08/25/2024 2:32 PM THERMAL ENGINEER Charles Hendrickson MD LAB BODY FLUIDS AND STO OLS ORDERABLES Final Result [facility] [place] [id number] Department [place] [address] * Cell count w/rflx diff, body fluid (08/25/2024 2:32 PM THERMAL ENGINEER) Specimen type, fld Pleural Body site, fld Pleural fluid, left [facility] Color, fld Mitzi [facility] Clarity, fld Cloudy [facility] Nucleated cells, fld 585 /cumm [facility] Comment: Interpretive Data Unless otherwise specified, the reference range and other method performance specifications have not been established for CSF/Body Fluid tests. The test results should be integrated into the clinical context for interpretation. Current interpretive data was last revised on 2019. RBC, fld 9,000 /cumm [facility] Fluid 08/25/2024 2:32 PM THERMAL ENGINEER 08/25/2024 2:32 PM THERMAL ENGINEER us Charles Hendrickson MD LAB BODY FLUIDS AND STO OLS ORDERABLES Final Result [facility] [id number] Department [place] [address] * Protein, body fluid (08/25/2024 2:32 PM THERMAL ENGINEER) Specimen type, fld Pleural Comment:Testing performed by : [facility], [address] [facility], [place]., [address] Body site, fld Pleural fluid, left [facility] Comment:Testing performed by : [facility], [address] [place]., [address] Protein, fld 3.5 g/dL [facility] Comment: The above specimen type is not cleared for use in this method by the FDA. Analytical characteristics have been validated by the performing laboratory. No reference range established - see interpretive comments. Interpretive Data Pleural and Pericardial Fluids - Ratio of fluid to serum protein > or = 0.5 is indicative of exudate and < 0.5 of transudate. Peritoneal - Protein > or = 3.0 g/dL is indicative of exudates and < 3.0 g/dL of transudates. Reference: Moni Textbook of Clinical Chemistry and Molecular Diagnostics, Sixth Edition. Elsevier Press. 2018. Chapter 43, Body Fluids, p. 925 Current Interpretive Data was last revised 2019. Testing performed by: [facility], [address] [place] [address] Fluid 08/25/2024 2:32 PM THERMAL ENGINEER 08/25/2024 5:52 PM THERMAL ENGINEER Charles Hendrickson MD LAB BODY FLUIDS AND STO OLS ORDERABLES Final Result [facility] [id number] [facility] [place] Department [place] [address] * Lactate dehydrogenase, body fluid (08/25/2024 2:32 PM THERMAL ENGINEER) Specimen type, fld Pleural Comment:Testing performed by : [facility], [address] [place] [address] Body site, fld Pleural fluid, left LAINE Comment:Testing performed by : [facility], [address] [place]., [address] LD, fld 151 Units/L [facility] Comment: The above specimen type is not cleared for use in this method by the FDA. Analytical characteristics have been validated by the performing laboratory. No reference range established - see interpretive comments. Interpretive Data Ratio of fluid to serum LD > or = 0.6 is indicative of exudate and < 0.6 of transudate. References: The Biochemistry of Body Fluids. Association of Clinical Biochemists in [place]. April 2009; pp 1-36. Moni Textbook of Clinical Chemistry and Molecular Diagnostics, Sixth Edition. Elsevier Press. 2018. Chapter 43, Body Fluids, p. 925 Current Interpretive Data was last revised 2019. Testing performed by: [facility], [address] [place] [address]., [id number] Fluid 08/25/2024 2:32 PM THERMAL ENGINEER 08/25/2024 5:52 PM THERMAL ENGINEER Charles Hendrickson MD LAB BODY FLUIDS AND STO OLS ORDERABLES Final Result [facility] [address] [facility] [place] Department [place] [address] * Glucose, body fluid (08/25/2024 2:32 PM THERMAL ENGINEER) Specimen type, fld Pleural Comment:Testing performed by : [facility], [address] [place]., [address] Body site, fld Pleural fluid, left [facility] [place] Comment:Testing performed by : [facility], [address] [facility], [place]., [address] Glucose, fld 109 mg/dL [facility] [place] Comment: The above specimen type is not cleared for use in this method by the FDA. Analytical characteristics have been validated by the performing laboratory. No reference range established - see interpretive comments. Interpretive Data Pleural - Glucose < 60 mg/dL is indicative of complicated parapneumonic effusions. Peritoneal - normally equivalent to plasma glucose. Will be less than concurrent plasma value in peritoneal bacterial infections. Pericardial - Fluid to serum glucose ratio < 0.3 is indicative of bacterial infection. Pancreatic cyst fluid - glucose concentrations have been shown to be a useful aid for distinguishing mucinous from non-mucinous cysts. Low glucose concentrations in a pancreatic cyst fluid (< 40-50 mg/dL) is suggestive of a mucinous cyst. However, body fluid glucose concentrations may be decreased due to increased cellular metabolism and should be interpreted in the context of blood glucose concentrations and in conjunction with other laboratory and clinical findings. References: Moni Textbook of Clinical Chemistry and Molecular Diagnostics, Sixth Edition. Elsevier Press. 2018. Chapter 43, Body Fluids, p. 925 Pleural effusions: Evaluation and Management. Meir Clin J Med 2005;72:854-72. [employer] Test directory, Body Fluid Reference Intervals and/or Interpretative Information. [email or web address] Danika COUCH et al. Pancreatic cyst fluid glucose: rapid, inexpensive, and accurate diagnosis of mucinous pancreatic cysts. Surgery 2018;163:600-5. Mohsen GUAN et al. Differential diagnosis of pancreatic cysts: A prospective study on the role of intra-cystic glucose concentration. Digestive Liver Dis 2020;52:1026-32. Current Interpretive Data was last revised 2021. Testing performed by: [facility], [address] [place] [address] Fluid 08/25/2024 2:32 PM THERMAL ENGINEER 08/25/2024 5:52 PM THERMAL ENGINEER Narrative LAINE - 08/25/2024 7:28 PM THERMAL ENGINEER Body Fluid Type->Pleural Charles Hendrickson MD LAB BODY FLUIDS AND STO OLS ORDERABLES Final Result [facility] [id number] Department [place] [address] * Amylase, body fluid (08/25/2024 2:32 PM THERMAL ENGINEER) Specimen type, fld Pleural fluid, left Comment:Testing performed by : [facility], [address] [place]., [address] Amylase, fld <30 Units/L [facility] Comment: Repeated and Verified The above specimen type is not cleared for use in this method by the FDA. Analytical characteristics have been validated by the performing laboratory. No reference range established - see interpretive comments. Interpretive Data Pleural - Ratio of pleural to serum amylase >1.0 is indicative of pancreatic excretions in the pleural fluid. Peritoneal - Normally equivalent to serum levels, but elevated levels are indicative of pancreatitis or pancreatic secretions. Pancreatic Fluid - Fluid amylase <250 U/L is indicative of benign serous cyst. References: Moni Textbook of Clinical Chemistry and Molecular Diagnostics, Sixth Edition. Elsevier Press. 2018. Chapter 43, Body Fluids, p. 925 [employer] Test directory, Body Fluid Reference Intervals and/or Interpretative Information. [email or web address] Current Interpretive Data was last revised 2019. Testing performed by: [facility], [address] [place] [address] Fluid 08/25/2024 2:32 PM THERMAL ENGINEER 08/25/2024 5:52 PM THERMAL ENGINEER Charles Hendrickson MD LAB BODY FLUIDS AND STO OLS ORDERABLES Final Result LAINE TOWNSEND [address] Department of Laboratories [place] [id number] * XR Chest PA Lateral 2 Views (08/25/2024 8:27 AM THERMAL ENGINEER) Anatomical Region Laterality Modality Body, Chest N/A Computed Radiogr aphy 08/25/2024 8:52 AM THERMAL ENGINEER Impressions 08/25/2024 8:52 AM THERMAL ENGINEER PERSISTENT PLEURAL EFFUSIONS LARGER ON THE LEFT THAN THE RIGHT. MILD FLUID OVERLOAD Electronically signed by: Bryant Alvarez M.D. Narrative 08/25/2024 8:52 AM THERMAL ENGINEER EXAMINATION: XR CHEST PA LATERAL 2 VIEWS HISTORY: Renal failure fluid overload FINDINGS: Compared with study of 4 days earlier, moderately large left-sided pleural effusion persists with cardiomegaly. Small right-sided pleural effusion. Cardiomegaly with mild fluid overload. Procedure Note Bryant Alvarez MD - 08/25/2024 EXAMINATION: XR CHEST PA LATERAL 2 VIEWS HISTORY: Renal failure fluid overload FINDINGS: Compared with study of 4 days earlier, moderately large left-sided pleural effusion persists with cardiomegaly. Small right-sided pleural effusion. Cardiomegaly with mild fluid overload. IMPRESSION: PERSISTENT PLEURAL EFFUSIONS LARGER ON THE LEFT THAN THE RIGHT. MILD FLUID OVERLOAD Electronically signed by: Bryant Alvarez M.D. Charles Hendrickson MD IMG XR PROCEDURES Final Result * (ABNORMAL) Differential, auto (08/25/2024 3:03 AM THERMAL ENGINEER) Neutrophil abs 7.4(H) 1.5 - 6.5 K/cumm Imm gran abs 0.1 0.0 - 0.1 K/cumm [facility] Lymphocyte abs 0.6(L) 0.8 - 3.3 K/cumm [facility] Monocyte abs 1.3(H) 0.2 - 0.8 K/cumm [facility] Eosinophil abs 0.3 0.0 - 0.5 K/cumm [facility] Basophil abs 0.1 0.0 - 0.1 K/cumm [facility] Neutrophil pct 75.8 % [facility] Comment: Interpretive Data Percent cell count reference ranges are not reported, since discordance with absolute values may lead to misinterpretation of CBC data. Current Interpretive Data was last revised on 2017. Imm gran pct 1.0 % [facility] Comment: Interpretive Data Percent cell count reference ranges are not reported, since discordance with absolute values may lead to misinterpretation of CBC data. Current Interpretive Data was last revised on 2017. Lymphocyte pct 6.6 % [facility] Comment: Interpretive Data Percent cell count reference ranges are not reported, since discordance with absolute values may lead to misinterpretation of CBC data. Current Interpretive Data was last revised on 2017. Monocyte pct 13.3 % [facility] Comment: Interpretive Data Percent cell count reference ranges are not reported, since discordance with absolute values may lead to misinterpretation of CBC data. Current Interpretive Data was last revised on 2017. Eosinophil pct 2.7 % [facility] Comment: Interpretive Data Percent cell count reference ranges are not reported, since discordance with absolute values may lead to misinterpretation of CBC data. Current Interpretive Data was last revised on 2017. Basophil pct 0.6 % [facility] Comment: Interpretive Data Percent cell count reference ranges are not reported, since discordance with absolute values may lead to misinterpretation of CBC data. Current Interpretive Data was last revised on 2017. Blood 08/25/2024 3:03 AM THERMAL ENGINEER 08/25/2024 4:15 AM THERMAL ENGINEER us Bobby Ya MD LAB BLOOD ORDERABLES Final Result LAINE [address] Department [place] [address] * (ABNORMAL) CBC with auto differential (08/25/2024 3:03 AM THERMAL ENGINEER) WBC 9.8 3.8 - 9.9 K/cumm Hgb 7.3(L) 11.9 - 15.5 g/dL [facility] Hct 24.3(L) 35.6 - 45.5 % [facility] Plt 424(H) 150 - 400 K/cumm [facility] MPV 8.6(L) 9.1 - 12.3 fL [facility] RBC 2.36(L) 3.90 - 5.20 M/cumm [facility] MCV 103.0(H) 81.3 - 96.4 fL [facility] MCH 30.9 27.1 - 33.3 pg [facility] MCHC 30.0(L) 32.3 - 35.7 g/dL [facility] RDW CV 16.2(H) 11.1 - 14.9 % [facility] RDW SD 61.8(H) 35.7 - 48.1 fL [facility] NRBC abs 0.00 0.00 - 0.01 K/cumm [facility] Blood 08/25/2024 3:03 AM THERMAL ENGINEER 08/25/2024 4:15 AM THERMAL ENGINEER Bobby Ya MD LAB BLOOD ORDERABLES Final Result Performing Organization Address City/State/[place] Co de Phone Number [address] Department [place] [address] * Cytology (08/25/2024 12:00 AM THERMAL ENGINEER) Fluid (Pleura (Cytology)) 08/25/2024 08/25/2024 2:53 PM THERMAL ENGINEER Narrative PATHOLOGY CH - 08/27/2024 12:43 PM THERMAL ENGINEER EPIC results best viewed via link to PDF [facility] Department of Pathology [address] [place] [id number] Note to Patients: This report may contain a detailed description of human tissue sent by a health care provider to the laboratory for pathologic evaluation. The content of this report is essential for diagnosis and may provide important critical findings. This information may be unfamiliar to patients to review without a medical professional present. It is advised that the patient review this report in the presence of a health care provider who can answer questions and explain the details. Final Report Patient Name: DORY NOBLE Address: [address] [place] [address] Gender: F : 1960 (Age: 63) Service: Medical Location: [facility] # [id number] Patient Type: [facility] Taken: 08/25/2024 Received: 08/25/2024 Accessioned: 08/25/2024 Reported: 08/27/2024 Physician(s): Sourav Gonzáles NP Diagnosis: Pleural fluid, left, cytology: - Negative for malignancy. Edi Vasquez M.D. Report Electronically Reviewed and Signed Out By Edi Vasquez M.D. 08/27/2024 12:43:11Specimen(s) Received: A: Fluid, Pleural, Left Clinical History: The patient is a 63 year old female with ESRD on PD with large left pleural effusion. Gross Description: 1 container received with 900 cc unfixed red fluid. 1 ThinPrep, 1 air-dried cytospin for Trujillo stain and 1 cell block made. Microscopic Description: Microscopic examination of the left pleural fluid (one ThinPrep slide, one air dried Trujillo stained cytospin and cell block sections) reveals a specimen that is adequate for evaluation. The specimen consists of scattered, mildly reactive mesothelial cells in a background of blood and fibrin. Immunohistochemical stains are performed (with appropriate controls). No malignant epithelial cells are seen. This is confirmed on review of the negative MOC-31 epithelial marker. A calretinin stain highlights scattered mesothelial cells. The performance characteristics of some immunohistochemical stains, fluorescence in-situ hybridization tests and immunophenotyping by flow cytometry cited in this report (if any) were determined by the Surgical Pathology Department at [facility] as part of an ongoing quality control tech program and in compliance with federally mandated regulations drawn from the Clinical Laboratory Improvement Act of 1988 (CLIA '88). Some of these tests rely on the use of analyte specific reagents and are subject to specific labeling requirements by the US Food and Drug Administration. Such diagnostic tests may only be performed in a facility that is certified by the Department of Health and Human Services as a high complexity laboratory under CLIA '88. The FDA has determined that such clearance or approval is not necessary. This test is used for clinical purposes. It should not be regarded as investigational or for research. Nevertheless, federal rules concerning the medical use of analyte specific reagents require that the following disclaimer be attached to the report: This test was developed and its performance characteristics determined by the Surgical Pathology Department [facility]. It has not been cleared or approved by the U. S. Food and Drug Administration. Unless otherwise noted all cytology processing, staining and screening is performed at [facility] ([address] [place] [address]). REPORT IMAGES AND SCANNED DOCUMENTS, IF INCLUDED, ONLY VIEWABLE IN PDF VERSION OF REPORT Charles Hendrickson MD LAB CYTOLOGY ORDERABLES [place] [address] * (ABNORMAL) Differential, auto (08/24/2024 4:34 AM THERMAL ENGINEER) Neutrophil abs 7.9(H) 1.5 - 6.5 K/cumm Imm gran abs 0.1 0.0 - 0.1 K/cumm [facility] Lymphocyte abs 0.6(L) 0.8 - 3.3 K/cumm [facility] Monocyte abs 1.3(H) 0.2 - 0.8 K/cumm [facility] Eosinophil abs 0.3 0.0 - 0.5 K/cumm [facility] Basophil abs 0.1 0.0 - 0.1 K/cumm [facility] Neutrophil pct 77.1 % [facility] Comment: Interpretive Data Percent cell count reference ranges are not reported, since discordance with absolute values may lead to misinterpretation of CBC data. Current Interpretive Data was last revised on 2017. Imm gran pct 1.4 % [facility] Comment: Interpretive Data Percent cell count reference ranges are not reported, since discordance with absolute values may lead to misinterpretation of CBC data. Current Interpretive Data was last revised on 2017. Lymphocyte pct 5.4 % [facility] Comment: Interpretive Data Percent cell count reference ranges are not reported, since discordance with absolute values may lead to misinterpretation of CBC data. Current Interpretive Data was last revised on 2017. Monocyte pct 12.6 % [facility] Comment: Interpretive Data Percent cell count reference ranges are not reported, since discordance with absolute values may lead to misinterpretation of CBC data. Current Interpretive Data was last revised on 2017. Eosinophil pct 2.9 % [facility] Comment: Interpretive Data Percent cell count reference ranges are not reported, since discordance with absolute values may lead to misinterpretation of CBC data. Current Interpretive Data was last revised on 2017. Basophil pct 0.6 % [facility] Comment: Interpretive Data Percent cell count reference ranges are not reported, since discordance with absolute values may lead to misinterpretation of CBC data. Current Interpretive Data was last revised on 2017. Blood 08/24/2024 4:34 AM THERMAL ENGINEER 08/24/2024 4:49 AM THERMAL ENGINEER Bobby Ya MD LAB BLOOD ORDERABLES Final Result [facility] [id number] Department [place] [address] * (ABNORMAL) CBC with auto differential (08/24/2024 4:34 AM THERMAL ENGINEER) WBC 10.3(H) 3.8 - 9.9 K/cumm Hgb 7.0(L) 11.9 - 15.5 g/dL [facility] Hct 23.3(L) 35.6 - 45.5 % [facility] Plt 410(H) 150 - 400 K/cumm [facility] MPV 8.4(L) 9.1 - 12.3 fL [facility] RBC 2.24(L) 3.90 - 5.20 M/cumm [facility] MCV 104.0(H) 81.3 - 96.4 fL [facility] MCH 31.3 27.1 - 33.3 pg [facility] MCHC 30.0(L) 32.3 - 35.7 g/dL [facility] RDW CV 16.7(H) 11.1 - 14.9 % [facility] RDW SD 64.5(H) 35.7 - 48.1 fL [facility] NRBC abs 0.00 0.00 - 0.01 K/cumm [facility] Blood 08/24/2024 4:34 AM THERMAL ENGINEER 08/24/2024 4:49 AM THERMAL ENGINEER Bobby Ya MD LAB BLOOD ORDERABLES Final Result Performing Organization Address [facility]/ZIP Co de Phone Number LAINE [id number] Department [place] [address] * (ABNORMAL) eGFR (08/22/2024 9:54 AM THERMAL ENGINEER) eGFR 3(L) >=60 mL/min/1. 73 m2 Comment: Interpretive Data Reference Interval Normal >/= 90 mL/min/1.73m2 Mildly decreased* 60 - 89 mL/min/1.73m2 Mildly to moderately decreased 45 - 59 mL/min/1.73m2 Moderately to severely decreased 30 - 44 mL/min/1.73m2 Severely decreased 15 - 29 mL/min/1.73m2 Kidney Failure < 15 mL/min/1.73m2 *Relative to young adult level Estimated glomerular [...] interpretive data was last reviewed 2021. Blood 08/22/2024 9:54 AM THERMAL ENGINEER 08/22/2024 10:37 AM THERMAL ENGINEER Kala Barbosa NP LAB BLOOD ORDERABLES Final R esult Performing Organization Address City/[facility]/ZIP Co de Phone Number LAINE [place]END [id number] Department [place] [address] * (ABNORMAL) Differential, auto (08/22/2024 9:54 AM THERMAL ENGINEER) Neutrophil abs 9.3(H) 1.5 - 6.5 K/cumm Imm gran abs 0.2(H) 0.0 - 0.1 K/cumm [facility] Lymphocyte abs 0.7(L) 0.8 - 3.3 K/cumm [facility] Monocyte abs 1.2(H) 0.2 - 0.8 K/cumm [facility] Eosinophil abs 0.3 0.0 - 0.5 K/cumm [facility] Basophil abs 0.1 0.0 - 0.1 K/cumm [facility] Neutrophil pct 79.3 % [facility] Comment: Interpretive Data Percent cell count reference ranges are not reported, since discordance with absolute values may lead to misinterpretation of CBC data. Current Interpretive Data was last revised on 2017. Imm gran pct 1.3 % [facility] Comment: Interpretive Data Percent cell count reference ranges are not reported, since discordance with absolute values may lead to misinterpretation of CBC data. Current Interpretive Data was last revised on 2017. Lymphocyte pct 5.7 % [facility] Comment: Interpretive Data Percent cell count reference ranges are not reported, since discordance with absolute values may lead to misinterpretation of CBC data. Current Interpretive Data was last revised on 2017. Monocyte pct 10.4 % [facility] Comment: Interpretive Data Percent cell count reference ranges are not reported, since discordance with absolute values may lead to misinterpretation of CBC data. Current Interpretive Data was last revised on 2017. Eosinophil pct 2.7 % [facility] Comment: Interpretive Data Percent cell count reference ranges are not reported, since discordance with absolute values may lead to misinterpretation of CBC data. Current Interpretive Data was last revised on 2017. Basophil pct 0.6 % [facility] Comment: Interpretive Data Percent cell count reference ranges are not reported, since discordance with absolute values may lead to misinterpretation of CBC data. Current Interpretive Data was last revised on 2017. Blood 08/22/2024 9:54 AM THERMAL ENGINEER 08/22/2024 10:36 AM THERMAL ENGINEER us Kala Barbosa NP LAB BLOOD ORDERABLES Final R esult LAINE [address] Department [place] [address] * (ABNORMAL) CBC with auto differential (08/22/2024 9:54 AM THERMAL ENGINEER) WBC 11.7(H) 3.8 - 9.9 K/cumm Hgb 7.4(L) 11.9 - 15.5 g/dL [facility] Hct 24.6(L) 35.6 - 45.5 % [facility] Plt 462(H) 150 - 400 K/cumm [facility] MPV 8.5(L) 9.1 - 12.3 fL [facility] RBC 2.37(L) 3.90 - 5.20 M/cumm [facility] MCV 103.8(H) 81.3 - 96.4 fL [facility] MCH 31.2 27.1 - 33.3 pg [facility] MCHC 30.1(L) 32.3 - 35.7 g/dL [facility] RDW CV 18.0(H) 11.1 - 14.9 % [facility] RDW SD 67.7(H) 35.7 - 48.1 fL [facility] NRBC abs 0.00 0.00 - 0.01 K/cumm [facility] Blood 08/22/2024 9:54 AM THERMAL ENGINEER 08/22/2024 10:36 AM THERMAL ENGINEER us Kala Barbosa NP LAB BLOOD ORDERABLES Final R esult [facility] [id number] Department [place] [address] * (ABNORMAL) Comprehensive metabolic panel (08/22/2024 9:54 AM THERMAL ENGINEER) Sodium 137 135 - 145 mmol/L Potassium, pl 3.8 3.3 - 4.9 mmol/L [facility] Chloride 96(L) 97 - 110 mmol/L [facility] CO2 25 22 - 32 mmol/L [facility] Anion gap 16(H) 2 - 15 mmol/L [facility] BUN 49(H) 6 - 25 mg/dL [facility] Creatinine 11.69(H) 0.60 - 1.10 mg/dL [facility] Glucose 107 70 - 199 mg/dL [facility] Comment: Interpretive Data Fasting glucose >/= 126 mg/dl is diagnostic for diabetes. Fasting is defined as no caloric intake [...] interpretive data was last revised 2022. Calcium 9.7 8.5 - 10.3 mg/dL [facility] Bilirubin, total 0.5 0.1 - 1.2 mg/dL [facility] Protein, pl 6.4(L) 6.5 - 8.5 g/dL [facility] Albumin 2.9(L) 3.5 - 5.0 g/dL [facility] Alk phos 89 40 - 130 Units/L [facility] ALT 15 7 - 45 Units/L [facility] AST 14 10 - 45 Units/L [facility] Blood 08/22/2024 9:54 AM THERMAL ENGINEER 08/22/2024 10:37 AM THERMAL ENGINEER us Kala Barbosa NP LAB BLOOD ORDERABLES Final R esult [facility] [address] Department [place] [address] * (ABNORMAL) Urinalysis reflex to microscopic and culture Urine, clean voided (08/21/2024 6:01 PM THERMAL ENGINEER) Color, ur Mitzi Yellow Clarity, ur Turbid(A) Clear [facility] Specific gravity, ur 1.011 1.003 - 1.030 [facility] pH, urine 8.0 [facility] Comment: Interpretive Data U rine pH is affected by diet, medications, systemic acid-base disturbances, and renal tubular function. pH may affect urinary stone formation. For example, urine pH below 6.0 may help reduce the tendency for calcium phosphate stones and pH greater than 6.0 may reduce the tendency for uric acid stone formation. Source: [facility] Current Interpretive Data was last revised on [...] Reflex to microscopic UA will be performed. [facility] Urine, clean voided 08/21/2024 6:01 PM THERMAL ENGINEER 08/21/2024 6:06 PM THERMAL ENGINEER Bobby Ya MD LAB MICROBIOLOGY - GENERAL ORDERABLES Final Result Performing Organization Address [facility] Co de Phone Number [facility] [phone] Department [place] [address] * (ABNORMAL) Urinalysis, microscopic only (08/21/2024 6:01 PM THERMAL ENGINEER) WBC, ur >50(A) 0 - 5 /HPF RBC, ur >50(A) 0 - 2 /HPF [facility] Epithelial cells, squamous, ur 21-50(A) 0 - 5 /HPF [facility] Culture Reflex Comment Reflex to urine culture will be performed. [facility] Urine, clean voided 08/21/2024 6:01 PM THERMAL ENGINEER 08/21/2024 6:06 PM THERMAL ENGINEER Bobby Ya MD LAB URINE ORDERABLES Final Result Performing Organization Address City/[facility]/[place] Co de Phone Number LAINE [address] [facility] [place] [address] * Urine culture Urine, clean voided (08/21/2024 6:01 PM THERMAL ENGINEER) Report Final Report: Less than 100,000 colonies/mL (clinically insignificant growth based on current clinical standards) Comment:Testing performed by : [facility], [address] [place] [address] Organism (CLINICALLY INSIGNIFICANT GROWTH LAINE Urine, clean voided 08/21/2024 6:01 PM THERMAL ENGINEER 08/21/2024 8:14 PM THERMAL ENGINEER Narrative LAINE TOWNSEND - 08/23/2024 7:20 AM THERMAL ENGINEER Urine culture reflexed based upon urinalysis results. Testing performed by [facility] Microbiology Laboratory ([phone]) Bobby Ya MD LAB MICROBIOLOGY - GENERAL ORDERABLES Final Result LAINE [address] Department [place] [address] * CT Chest Abdomen Pelvis WO Contrast (08/21/2024 4:56 PM THERMAL ENGINEER) Anatomical Region Laterality Modality Body N/A Computed Tomogra phy 08/21/2024 5:31 PM THERMAL ENGINEER Impressions 08/22/2024 2:24 PM THERMAL ENGINEER Moderate loculated left pleural effusion with left lower lobe atelectasis and small right effusion. Cardiomegaly, atherosclerotic aorta, and mild aortic valvular calcification. Enlarged nonspecific right paratracheal node. Bilateral nonobstructing nephrolithiasis with right nephroureteral stent. Diffuse colonic diverticulosis with cecum in the left lower quadrant. 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 Mild to moderate ascites with PD catheter noted. Nondistended bladder with mild mural thickening. Correlate clinically to exclude cystitis. Decreased size of splenic cystic lesions. Electronically signed by: rPiscila Ochoa M.D. Narrative 08/22/2024 2:24 PM THERMAL ENGINEER EXAM: CT CHEST, ABDOMEN AND PELVIS WITHOUT CONTRAST: DATE: 08/21/2024 4:35 PM CLINICAL HISTORY: Abnormal CXR-R/O PNA TECHNIQUE: Computed tomographic images of the chest were obtained in the axial plane in both lung and soft tissue windows without the administration of contrast. Coronal and sagittal reformatted images were performed. Computed tomographic images of the abdomen and pelvis were obtained in the axial plane. Coronal and sagittal reformatted images were performed. COMPARISON: CTA abdomen pelvis 07/21/2024 FINDINGS: The sensitivity for detection of visceral lesions is decreased in the absence of intravenous contrast. Chest: Cardiomegaly noted without pericardial effusion..Atherosclerotic nonaneurysmal aorta with [id number] calcified plaque and mild aortic valvular calcification is seen. Right lower paratracheal node 11 mm short axisand a smaller para-aortic and subaortic nodes are present. The visualized thyroid is unremarkable. A moderate partially loculated left pleural effusion is noted with moderate left lower lobe atelectasis. A small right effusion is seen extending into the fissure.. The bony thorax is unremarkable.. Abdomen pelvis: Unenhanced appearance the liver, pancreas, and adrenals is unremarkable. The gallbladder is contracted. No biliary distention noted. A 4.8 cm hypoattenuating splenic lesion is decreased from 5.7 cm with decreased size of additional smaller lesions. . Bilateral nonobstructing nephrolithiasis and atrophy kidneys noted with small cysts. Right nephroureteral stent noted extending from the renal pelvis into the bladder. Markedly calcified nonaneurysmal aorta with extensive visceral branch involvement is seen. . Partial gas and fluid-filled mildly distended stomach is seen. Extensive colonic diverticulosis is noted. The cecum is in left lower quadrant..The appendix is not identified.. 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 No small bowel obstruction noted. There is mild to moderate ascites with left lower quadrant peritoneal dialysis catheter extending into the pelvis. Nondistended bladder is noted with mural thickening and distal end of a right nephroureteral stent. The uterus is absent.. No suspicious mesenteric or retroperitoneal lymphadenopathy is seen. Marked narrowed L5-S1 vacuum disc is seen. Procedure Note Priscila Ochoa MD - 08/22/2024 EXAM: CT CHEST, ABDOMEN AND PELVIS WITHOUT CONTRAST: DATE: 08/21/2024 4:35 PM CLINICAL HISTORY: Abnormal CXR-R/O PNA TECHNIQUE: Computed tomographic images of the chest were obtained in the axial plane in both lung and soft tissue windows without the administration of contrast. Coronal and sagittal reformatted images were performed. Computed tomographic images of the abdomen and pelvis were obtained in the axial plane. Coronal and sagittal reformatted images were performed. COMPARISON: CTA abdomen pelvis 07/21/2024 FINDINGS: The sensitivity for detection of visceral lesions is decreased in the absence of intravenous contrast. Chest: Cardiomegaly noted without pericardial effusion..Atherosclerotic nonaneurysmal aorta with [id number] calcified plaque and mild aortic valvular calcification is seen. Right lower paratracheal node 11 mm short axisand a smaller para-aortic and subaortic nodes are present. The visualized thyroid is unremarkable. A moderate partially loculated left pleural effusion is noted with moderate left lower lobe atelectasis. A small right effusion is seen extending into the fissure.. The bony thorax is unremarkable.. Abdomen pelvis: Unenhanced appearance the liver, pancreas, and adrenals is unremarkable. The gallbladder is contracted. No biliary distention noted. A 4.8 cm hypoattenuating splenic lesion is decreased from 5.7 cm with decreased size of additional smaller lesions. . Bilateral nonobstructing nephrolithiasis and atrophy kidneys noted with small cysts. Right nephroureteral stent noted extending from the renal pelvis into the bladder. Markedly calcified nonaneurysmal aorta with extensive visceral branch involvement is seen. . Partial gas and fluid-filled mildly distended stomach is seen. Extensive colonic diverticulosis is noted. The cecum is in left lower quadrant..The appendix is not identified.. 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 No small bowel obstruction noted. There is mild to moderate ascites with left lower quadrant peritoneal dialysis catheter extending into the pelvis. Nondistended bladder is noted with mural thickening and distal end of a right nephroureteral stent. The uterus is absent.. No suspicious mesenteric or retroperitoneal lymphadenopathy is seen. Marked narrowed L5-S1 vacuum disc is seen. IMPRESSION: Moderate loculated left pleural effusion with left lower lobe atelectasis and small right effusion. Cardiomegaly, atherosclerotic aorta, and mild aortic valvular calcification. Enlarged nonspecific right paratracheal node. Bilateral nonobstructing nephrolithiasis with right nephroureteral stent. Diffuse colonic diverticulosis with cecum in the left lower quadrant. 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 Mild to moderate ascites with PD catheter noted. Nondistended bladder with mild mural thickening. Correlate clinically to exclude cystitis. Decreased size of splenic cystic lesions. Electronically signed by: Priscila Ochoa M.D. Bobby Ya MD IMG CT PROCEDURES Final Res ult * (ABNORMAL) Iron profile w/ IBC (08/21/2024 7:44 AM THERMAL ENGINEER) Iron 164(H) 35 - 145 mcg/dl TIBC 254 250 - 400 mcg/dL [facility] Transferrin saturation 65(H) 20 - 50 % [facility] Blood 08/21/2024 7:44 AM THERMAL ENGINEER 08/21/2024 9:19 AM THERMAL ENGINEER us Kala Barbosa STOCK FEEDER LAB BLOOD ORDERABLES Final R esult LAINE [address] Department [place] [address] * Blood culture Blood (08/21/2024 7:44 AM THERMAL ENGINEER) Report Final Report: No growth Comment:Testing performed by : [facility], [address] [place]., [address] Blood 08/21/2024 7:44 AM THERMAL ENGINEER 08/21/2024 12:57 PM THERMAL ENGINEER Narrative LAINE - 08/25/2024 4:00 PM THERMAL ENGINEER From a different site than #1. Collection->Peripheral 1. Blood cultures are incubated for 4 days on a continuously monitored blood culture system. The first report of a negative culture is issued within 24 hours of receipt of the specimen in the laboratory. 2. Positive culture results are reported as soon as they are detected. 3. The most important factor for detection of microbes in the setting of bloodstream infection is the volume of blood submitted for culture. Failure to collect an optimal blood volume can result in false negative blood cultures. 4. For pediatric patients, the recommended blood volume to collect follows a weight based strategy. See the electronic test catalog for collection instructions. 5. For positive blood cultures, a rapid molecular test [...] performance characteristics have been verified by the [facility] Microbiology Laboratory. For questions about this culture, contact the Microbiology Laboratory at [phone]. Interpretive data was last revised on 24. Kala Barbosa NP LAB MICROBIOLOGY - GENERAL O RDERABLES Final Result LAINE [address] Department [place] [address] * Blood culture Blood (08/21/2024 7:44 AM THERMAL ENGINEER) Report Final Report: No growth Comment:Testing performed by : [facility], [address] [place]., [address] Blood 08/21/2024 7:44 AM THERMAL ENGINEER 08/21/2024 12:57 PM THERMAL ENGINEER Narrative LAINE TOWNSEND - 08/25/2024 4:00 PM THERMAL ENGINEER Collection->Peripheral 1. Blood cultures are incubated for 4 days on a continuously monitored blood culture system. The first report of a negative culture is issued within 24 hours of receipt of the specimen in the laboratory. 2. Positive culture results are reported as soon as they are detected. 3. The most important factor for detection of microbes in the setting of bloodstream infection is the volume of blood submitted for culture. Failure to collect an optimal blood volume can result in false negative blood cultures. 4. For pediatric patients, the recommended blood volume to collect follows a weight based strategy. See the electronic test catalog for collection instructions. 5. For positive blood cultures, a rapid molecular test [...] performance characteristics have been verified by the [facility] Microbiology Laboratory. For questions about this culture, contact the Microbiology Laboratory at [phone]. Interpretive data was last revised on 24. Kala Barbosa NP LAB MICROBIOLOGY - GENERAL O RDERABLES Final Result Performing Organization Address [facility]/ZIP Co de Phone Number LAINE TOWNSEND [phone] [place] [address] * Folate (08/21/2024 7:44 AM THERMAL ENGINEER) Folic acid >20.0 >=5.0 ng/mL Comment:Hemolysis present. R esults may be affected. Blood 08/21/2024 7:44 AM THERMAL ENGINEER 08/21/2024 9:19 AM THERMAL ENGINEER Kala Barbosa NP LAB BLOOD ORDERABLES Final R esult Performing Organization Address [facility] Co de Phone Number LAINE TOW[place]END [phone] Department of [employer] [place], [place] [id number] * (ABNORMAL) Vitamin B12 (08/21/2024 7:44 AM THERMAL ENGINEER) Pathologist [facility] Vitamin B12 1,704(H) 230 - 1,250 pg/mL Blood 08/21/2024 7:44 AM THERMAL ENGINEER 08/21/2024 9:19 AM THERMAL ENGINEER Kala Barbosa NP LAB BLOOD ORDERABLES Final R esult Performing Organization Address [facility] Co de Phone Number LAINE [place] [address] Department [place] [address] * (ABNORMAL) eGFR (08/21/2024 2:52 AM THERMAL ENGINEER) eGFR 4(L) >=60 mL/min/1. 73 m2 Comment: Interpretive Data Reference Interval Normal >/= 90 mL/min/1.73m2 Mildly decreased* 60 - 89 mL/min/1.73m2 Mildly to moderately decreased 45 - 59 mL/min/1.73m2 Moderately to severely decreased 30 - 44 mL/min/1.73m2 Severely decreased 15 - 29 mL/min/1.73m2 Kidney Failure < 15 mL/min/1.73m2 *Relative to young adult level Estimated glomerular [...] interpretive data was last reviewed 2021. Blood 08/21/2024 2:52 AM THERMAL ENGINEER 08/21/2024 3:17 AM THERMAL ENGINEER us Kala Barbosa NP LAB BLOOD ORDERABLES Final R esult LAINE [address] Department [place] [address] * (ABNORMAL) Differential, auto (08/21/2024 2:52 AM THERMAL ENGINEER) Neutrophil abs 9.6(H) 1.5 - 6.5 K/cumm Imm gran abs 0.2(H) 0.0 - 0.1 K/cumm [facility] Lymphocyte abs 1.0 0.8 - 3.3 K/cumm [facility] Monocyte abs 1.4(H) 0.2 - 0.8 K/cumm [facility] Eosinophil abs 0.3 0.0 - 0.5 K/cumm [facility] Basophil abs 0.1 0.0 - 0.1 K/cumm [facility] Neutrophil pct 76.2 % [facility] Comment: Interpretive Data Percent cell count reference ranges are not reported, since discordance with absolute values may lead to misinterpretation of CBC data. Current Interpretive Data was last revised on 2017. Imm gran pct 1.4 % LAINE Comment: Interpretive Data Percent cell count reference ranges are not reported, since discordance with absolute values may lead to misinterpretation of CBC data. Current Interpretive Data was last revised on 2017. Lymphocyte pct 8.2 % LAINE Comment: Interpretive Data Percent cell count reference ranges are not reported, since discordance with absolute values may lead to misinterpretation of CBC data. Current Interpretive Data was last revised on 2017. Monocyte pct 11.4 % [facility] Comment: Interpretive Data Percent cell count reference ranges are not reported, since discordance with absolute values may lead to misinterpretation of CBC data. Current Interpretive Data was last revised on 2017. Eosinophil pct 2.1 % [facility] Comment: Interpretive Data Percent cell count reference ranges are not reported, since discordance with absolute values may lead to misinterpretation of CBC data. Current Interpretive Data was last revised on 2017. Basophil pct 0.7 % [facility] Comment: Interpretive Data Percent cell count reference ranges are not reported, since discordance with absolute values may lead to misinterpretation of CBC data. Current Interpretive Data was last revised on 2017. Blood 08/21/2024 2:52 AM THERMAL ENGINEER 08/21/2024 3:18 AM THERMAL ENGINEER us Kala Barbosa NP LAB BLOOD ORDERABLES Final R esult [facility] [id number] Department [place] [address] * (ABNORMAL) CBC with auto differential (08/21/2024 2:52 AM THERMAL ENGINEER) WBC 12.6(H) 3.8 - 9.9 K/cumm Hgb 7.4(L) 11.9 - 15.5 g/dL [facility] Hct 24.1(L) 35.6 - 45.5 % [facility] Plt 478(H) 150 - 400 K/cumm [facility] MPV 8.3(L) 9.1 - 12.3 fL [facility] RBC 2.36(L) 3.90 - 5.20 M/cumm [facility] MCV 102.1(H) 81.3 - 96.4 fL [facility] MCH 31.4 27.1 - 33.3 pg [facility] MCHC 30.7(L) 32.3 - 35.7 g/dL [facility] RDW CV 18.6(H) 11.1 - 14.9 % [facility] RDW SD 68.8(H) 35.7 - 48.1 fL [facility] NRBC abs 0.00 0.00 - 0.01 K/cumm [facility] Blood 08/21/2024 2:52 AM THERMAL ENGINEER 08/21/2024 3:18 AM THERMAL ENGINEER us Kala Barbosa JOSE C LAB BLOOD ORDERABLES Final R esult [facility] [address] Department [place] [address] * (ABNORMAL) Comprehensive metabolic panel (08/21/2024 2:52 AM THERMAL ENGINEER) Sodium 136 135 - 145 mmol/L Potassium, pl 3.3 3.3 - 4.9 mmol/L [facility] Chloride 94(L) 97 - 110 mmol/L [facility] CO2 28 22 - 32 mmol/L [facility] Anion gap 14 2 - 15 mmol/L [facility] BUN 39(H) 6 - 25 mg/dL [facility] Creatinine 10.12(H) 0.60 - 1.10 mg/dL [facility] Glucose 100 70 - 199 mg/dL [facility] Comment: Interpretive Data Fasting glucose >/= 126 mg/dl is diagnostic for diabetes. Fasting is defined as no caloric intake [...] interpretive data was last revised 2022. Calcium 9.7 8.5 - 10.3 mg/dL [facility] Bilirubin, total 0.8 0.1 - 1.2 mg/dL [facility] Protein, pl 6.8 6.5 - 8.5 g/dL [facility] Albumin 3.0(L) 3.5 - 5.0 g/dL [facility] Alk phos 96 40 - 130 Units/L [facility] ALT 14 7 - 45 Units/L [facility] AST 13 10 - 45 Units/L [facility] Blood 08/21/2024 2:52 AM THERMAL ENGINEER 08/21/2024 3:17 AM THERMAL ENGINEER us Kala Santanajudyolvin JOSE C LAB BLOOD ORDERABLES Final R esult LAINE [place] [address] Department [place] [address] * XR Chest 1 Vw Portable (08/21/2024 1:09 AM THERMAL ENGINEER) Anatomical Region Laterality Modality Body, Chest N/A Computed Radiogr aphy 08/21/2024 8:04 AM THERMAL ENGINEER Impressions 08/21/2024 8:04 AM THERMAL ENGINEER CARDIOMEGALY WITH CONSOLIDATING OPACITY IN THE LEFT BASE AND HAZY OPACITY IN THE RIGHT BASE WITH FLUID IN THE FISSURE. A LATERAL CHEST VIEW OR CT OF THE CHEST IS SUGGESTED TO EVALUATE THE LUNG BASES. Electronically signed by: Sulaiman Xie M.D. Narrative 08/21/2024 8:04 AM THERMAL ENGINEER EXAMINATION: XR CHEST 1 VIEW HISTORY: Elevated WBC ORDER DATE: 08/21/2024 1:00 AM FINDINGS: There is diffuse opacity in the left lung base obscuring the left heart border and left diaphragm. There is perihilar interstitial thickening. There is fluid in the minor fissure and diffuse opacity though less dense in the right lung base. Suspect bilateral pleural effusions in addition to other underlying pulmonary change. Cardiomegaly is demonstrated. Procedure Note Sulaiman Xie MD - 08/21/2024 EXAMINATION: XR CHEST 1 VIEW HISTORY: Elevated WBC ORDER DATE: 08/21/2024 1:00 AM FINDINGS: There is diffuse opacity in the left lung base obscuring the left heart border and left diaphragm. There is perihilar interstitial thickening. There is fluid in the minor fissure and diffuse opacity though less dense in the right lung base. Suspect bilateral pleural effusions in addition to other underlying pulmonary change. Cardiomegaly is demonstrated. IMPRESSION: CARDIOMEGALY WITH CONSOLIDATING OPACITY IN THE LEFT BASE AND HAZY OPACITY IN THE RIGHT BASE WITH FLUID IN THE FISSURE. A LATERAL CHEST VIEW OR CT OF THE CHEST IS SUGGESTED TO EVALUATE THE LUNG BASES. Electronically signed by: Sulaiman Xie M.D. Susan Salcedo NP IMG XR PROCEDURES Fi nal Result * (ABNORMAL) Potassium, whole blood (08/21/2024 12:48 AM THERMAL ENGINEER) Potassium, bld 3.1(L) 3.3 - 4.9 mmol/L Comment: Interpretive Data This method is not able to assess for hemolysis, which may falsely increase potassium concentrations. If further testing is needed to evaluate this result, consider in-laboratory plasma potassium. Current Interpretive Data was last revised on 2022. Blood 08/21/2024 12:4 8 AM THERMAL ENGINEER 08/21/2024 12:59 AM THERMAL ENGINEER Susan Salcedo NP LAB BLOOD ORDERABLES Final Result Performing Organization Address [facility] Co de Phone Number LAINE [phone] [place] [address] * (ABNORMAL) Hemoglobin and hematocrit (08/21/2024 12:48 AM THERMAL ENGINEER) Hgb 7.2(L) 11.9 - 15.5 g/dL Hct 23.7(L) 35.6 - 45.5 % [facility] Blood 08/21/2024 12:4 8 AM THERMAL ENGINEER 08/21/2024 1:00 AM THERMAL ENGINEER Susan Salcedo NP LAB BLOOD ORDERABLES Final Result Performing Organization Address City/[facility] Co de Phone Number LAINE [address] [place] [address] * Transfuse RBC (08/20/2024 11:45 PM THERMAL ENGINEER) Blood Susan Salcedo NP BLOOD TRANSFUSION OR DERABLES Final Result Performing Organization Address City/[facility] Co de Phone Number LAINE [place] [phone] [facility] [place] [address] * Prepare RBC: 1 Units (08/20/2024 8:06 PM THERMAL ENGINEER) Product code [id number] Unit Number [id number]- R [facility] Product Blood Type BPOS [facility] Dispense Status PRESUMED TRANSFUSED [facility] Blood 08/20/2024 8:06 PM THERMAL ENGINEER Narrative [facility] - 08/21/2024 10:15 AM THERMAL ENGINEER Are special requirements needed? (All products are leukoreduced and CMV- safe)- >No Date required:-20240820 LRRBC # of [id number] Reasons:-Hgb <7 g/dL} Susan Salcedo NP BLOOD BANK PRODUCT O RDERABLES Final Result Performing Organization Address [facility] Co de Phone Number LAINE [address] [place] [address] * (ABNORMAL) aPTT (08/20/2024 8:02 PM THERMAL ENGINEER) Pathologist [facility] aPTT 53(H) 28 - 38 sec Comment: Interpretive Data Heparin therapeutic range: 66.0 - 100.0 seconds. Range based on correlation with therapeutic heparin activity range of 0.3 - 0.7 Units/mL. Current interpretive data was last revised on 2023. Blood 08/20/2024 8:02 PM THERMAL ENGINEER 08/20/2024 8:26 PM THERMAL ENGINEER us Dominga KNAPP LAB BLOOD ORDERABLES Final Resu lt Performing Organization Address City/[facility]/ZIP Co de Phone Number LAINE [address] [facility] [address] [place], [place] [id number] * (ABNORMAL) Protime-INR (08/20/2024 8:02 PM THERMAL ENGINEER) Pathologist [facility] PT 22.7(H) 9.7 - 13.0 sec INR 2.07(H) 0.90 - 1.20 LAINE Comment: Interpretive data Oral anticoagulant therapeutic ranges: Venous thromboembolism prophylaxis or treatment: 2.0-3.0 CARDIOLOGY Standard range: 2.0-3.0 High-intensity range: 2.5-3.5 Refer to indication-specific guidelines for appropriate target ranges for prosthetic heart valve replacement. Current interpretive data was last revised on 2019. Blood 08/20/2024 8:02 PM THERMAL ENGINEER 08/20/2024 8:26 PM THERMAL ENGINEER Dominga KNAPP LAB BLOOD ORDERABLES Final Resu lt Performing Organization Address [facility] Co de Phone Number [facility] [address] [facility] [place] [address] * Type and screen (08/20/2024 8:02 PM THERMAL ENGINEER) Arianna, indirect Negative ABO Rh B Positive [facility] Blood 08/20/2024 8:02 PM THERMAL ENGINEER 08/20/2024 8:26 PM THERMAL ENGINEER Narrative [facility] - 08/20/2024 9:05 PM THERMAL ENGINEER Has the patient had Daratumumab or Isatuximab in the past 6 months?->Unknown Dominga KNAPP [facility] BLOOD BANK TEST ORDERABLES Final Result Performing Organization Address [facility] Co de Phone Number [facility] [phone] [facility] [employer] [place], [place] [id number] * (ABNORMAL) eGFR (08/20/2024 1:06 PM THERMAL ENGINEER) eGFR 4(L) >=60 mL/min/1. 73 m2 Comment: Interpretive Data Reference Interval Normal >/= 90 mL/min/1.73m2 Mildly decreased* 60 - 89 mL/min/1.73m2 Mildly to moderately decreased 45 - 59 mL/min/1.73m2 Moderately to severely decreased 30 - 44 mL/min/1.73m2 Severely decreased 15 - 29 mL/min/1.73m2 Kidney Failure < 15 mL/min/1.73m2 *Relative to young adult level Estimated glomerular [...] interpretive data was last reviewed 2021. Blood 08/20/2024 1:06 PM THERMAL ENGINEER 08/20/2024 1:06 PM THERMAL ENGINEER us Alcides KNAPP LAB BLOOD ORDERABLES Final Result LAINE [address] Department of Laboratories [place], [place] [id number] * (ABNORMAL) Differential, auto (08/20/2024 1:06 PM THERMAL ENGINEER) Neutrophil abs 9.9(H) 1.5 - 6.5 K/cumm Imm gran abs 0.2(H) 0.0 - 0.1 K/cumm [facility] Lymphocyte abs 0.8 0.8 - 3.3 K/cumm [facility] Monocyte abs 1.1(H) 0.2 - 0.8 K/cumm [facility] Eosinophil abs 0.3 0.0 - 0.5 K/cumm [facility] Basophil abs 0.1 0.0 - 0.1 K/cumm [facility] Neutrophil pct 80.3 % [facility] Comment: Interpretive Data Percent cell count reference ranges are not reported, since discordance with absolute values may lead to misinterpretation of CBC data. Current Interpretive Data was last revised on 2017. Imm gran pct 1.4 % LAINE Comment: Interpretive Data Percent cell count reference ranges are not reported, since discordance with absolute values may lead to misinterpretation of CBC data. Current Interpretive Data was last revised on 2017. Lymphocyte pct 6.4 % LAINE Comment: Interpretive Data Percent cell count reference ranges are not reported, since discordance with absolute values may lead to misinterpretation of CBC data. Current Interpretive Data was last revised on 2017. Monocyte pct 9.1 % [facility] Comment: Interpretive Data Percent cell count reference ranges are not reported, since discordance with absolute values may lead to misinterpretation of CBC data. Current Interpretive Data was last revised on 2017. Eosinophil pct 2.1 % [facility] Comment: Interpretive Data Percent cell count reference ranges are not reported, since discordance with absolute values may lead to misinterpretation of CBC data. Current Interpretive Data was last revised on 2017. Basophil pct 0.7 % [facility] Comment: Interpretive Data Percent cell count reference ranges are not reported, since discordance with absolute values may lead to misinterpretation of CBC data. Current Interpretive Data was last revised on 2017. Blood 08/20/2024 1:06 PM THERMAL ENGINEER 08/20/2024 1:06 PM THERMAL ENGINEER Alcides KNAPP LAB BLOOD ORDERABLES Final Result [facility] [address] Department [place] [address] * (ABNORMAL) CBC with auto differential (08/20/2024 1:06 PM THERMAL ENGINEER) WBC 12.3(H) 3.8 - 9.9 K/cumm Hgb 6.3(C) 11.9 - 15.5 g/dL [facility] Comment:Critical result call ed to and read back by MARCIAL CASTLE on 08 20 2024 at 1344 to [facility]. Hct 21.7(L) 35.6 - 45.5 % [facility] Plt 588(H) 150 - 400 K/cumm [facility] MPV 8.7(L) 9.1 - 12.3 fL [facility] RBC 2.05(L) 3.90 - 5.20 M/cumm [facility] MCV 105.9(H) 81.3 - 96.4 fL [facility] MCH 30.7 27.1 - 33.3 pg [facility] MCHC 29.0(L) 32.3 - 35.7 g/dL [facility] RDW CV 18.8(H) 11.1 - 14.9 % [facility] RDW SD 72.9(H) 35.7 - 48.1 fL [facility] NRBC abs 0.00 0.00 - 0.01 K/cumm [facility] Blood 08/20/2024 1:06 PM THERMAL ENGINEER 08/20/2024 1:06 PM THERMAL ENGINEER Alcides KNAPP LAB BLOOD ORDERABLES Final Result Performing Organization Address [facility] Co de Phone Number LAINE [id number] [address] [facility] [place] [address] * Magnesium (08/20/2024 1:06 PM THERMAL ENGINEER) [facility] Magnesium 1.9 1.4 - 2.5 mg/dL Blood 08/20/2024 1:06 PM THERMAL ENGINEER 08/20/2024 1:06 PM THERMAL ENGINEER Alcides KNAPP LAB BLOOD ORDERABLES Final Result Performing Organization Address [facility] Phone Number [facility] [id number] [address] [facility] [place] [address] * (ABNORMAL) Comprehensive metabolic panel (08/20/2024 1:06 PM THERMAL ENGINEER) Pathologist [facility] Sodium 134(L) 135 - 145 mmol/L Potassium, pl 3.0(L) 3.3 - 4.9 mmol/L [facility] Chloride 90(L) 97 - 110 mmol/L [facility] CO2 25 22 - 32 mmol/L [facility] Anion gap 19(H) 2 - 15 mmol/L [facility] BUN 35(H) 6 - 25 mg/dL [facility] Creatinine 9.44(H) 0.60 - 1.10 mg/dL [facility] Glucose 113 70 - 199 mg/dL [facility] Comment: Interpretive Data Fasting glucose >/= 126 mg/dl is diagnostic for diabetes. Fasting is defined as no caloric intake [...] interpretive data was last revised 2022. Calcium 9.6 8.5 - 10.3 mg/dL [facility] Bilirubin, total 0.7 0.1 - 1.2 mg/dL [facility] Protein, pl 7.2 6.5 - 8.5 g/dL [facility] Albumin 3.1(L) 3.5 - 5.0 g/dL [facility] Alk phos 101 40 - 130 Units/L [facility] ALT 16 7 - 45 Units/L [facility] AST 26 10 - 45 Units/L [facility] Blood 08/20/2024 1:06 PM THERMAL ENGINEER 08/20/2024 1:06 PM THERMAL ENGINEER Alcides KNAPP LAB BLOOD ORDERABLES Final Result Performing Organization Address City/[facility]/ZIP Co de Phone Number [facility] [id number] [address] Department [place] [address] * ECG 12 lead (08/20/2024 12:45 PM THERMAL ENGINEER) 08/20/2024 12:4 5 PM THERMAL ENGINEER Narrative [facility] - 08/20/2024 7:49 PM THERMAL ENGINEER Vent Rate: 117 bpm RR Interval: 511 msec HI Interval: 0 msec QRS Duration: 116 msec QT Interval: 361 msec QTC Interval: 430 msec P-R-T Darby: 0 - 8 - 210 degrees IMPRESSION: ATRIAL FIBRILLATION WITH RAPID VENTRICULAR RESPONSE MODERATE INTRAVENTRICULAR CONDUCTION DELAY [110+ ms QRS DURATION] ST DEVIATION AND MODERATE T-WAVE ABNORMALITY, CONSIDER LATERAL ISCHEMIA [-0.1+ mV T-WAVE IN I/aVL/V5/V6] ABNORMAL ECG Electronically Signed By: Dr. Noelle Joiner [facility] Alcides KNAPP ECG ORDERABLES Final Result Performing Organization Address [facility]/ZIP Co de Phone Number [facility] * (ABNORMAL) Differential, auto (08/02/2024 5:45 AM THERMAL ENGINEER) Neutrophil abs 8.3(H) 1.5 - 6.5 K/cumm Imm gran abs 0.7(H) 0.0 - 0.1 K/cumm [facility] Lymphocyte abs 1.1 0.8 - 3.3 K/cumm [facility] Monocyte abs 1.9(H) 0.2 - 0.8 K/cumm [facility] Eosinophil abs 0.4 0.0 - 0.5 K/cumm [facility] Basophil abs 0.1 0.0 - 0.1 K/cumm [facility] Neutrophil pct 67.1 % [facility] Comment: Interpretive Data Percent cell count reference ranges are not reported, since discordance with absolute values may lead to misinterpretation of CBC data. Current Interpretive Data was last revised on 2017. Imm gran pct 5.3 % [facility] Comment: Interpretive Data Percent cell count reference ranges are not reported, since discordance with absolute values may lead to misinterpretation of CBC data. Current Interpretive Data was last revised on 2017. Lymphocyte pct 8.5 % [facility] Comment: Interpretive Data Percent cell count reference ranges are not reported, since discordance with absolute values may lead to misinterpretation of CBC data. Current Interpretive Data was last revised on 2017. Monocyte pct 15.6 % [facility] Comment: Interpretive Data Percent cell count reference ranges are not reported, since discordance with absolute values may lead to misinterpretation of CBC data. Current Interpretive Data was last revised on 2017. Eosinophil pct 2.8 % [facility] Comment: Interpretive Data Percent cell count reference ranges are not reported, since discordance with absolute values may lead to misinterpretation of CBC data. Current Interpretive Data was last revised on 2017. Basophil pct 0.7 % [facility] Comment: Interpretive Data Percent cell count reference ranges are not reported, since discordance with absolute values may lead to misinterpretation of CBC data. Current Interpretive Data was last revised on 2017. Blood 08/02/2024 5:45 AM THERMAL ENGINEER 08/02/2024 6:22 AM THERMAL ENGINEER Padmini Mason NP LAB BLOOD ORDERABLES Fi nal Result Performing Organization Address [facility] de Phone Number [place] [phone] [place] [address] * (ABNORMAL) CBC with auto differential (08/02/2024 5:45 AM THERMAL ENGINEER) Pathologist [facility] WBC 12.4(H) 3.8 - 9.9 K/cumm Hgb 7.5(L) 11.9 - 15.5 g/dL [facility] Hct 28.7(L) 35.6 - 45.5 % [facility] Plt 402(H) 150 - 400 K/cumm [facility] MPV 11.2 9.1 - 12.3 fL [facility] RBC 2.53(L) 3.90 - 5.20 M/cumm [facility] MCV 113.4(H) 81.3 - 96.4 fL [facility] MCH 29.6 27.1 - 33.3 pg [facility] MCHC 26.1(L) 32.3 - 35.7 g/dL [facility] RDW CV 20.7(H) 11.1 - 14.9 % [facility] RDW SD 85.8(H) 35.7 - 48.1 fL [facility] NRBC abs 0.08(H) 0.00 - 0.01 K/cumm [facility] Blood 08/02/2024 5:45 AM THERMAL ENGINEER 08/02/2024 6:22 AM THERMAL ENGINEER Padmini Mason NP LAB BLOOD ORDERABLES Fi nal Result Performing Organization Address [facility] Co de Phone Number [place] [address] Department [place] [address] * (ABNORMAL) eGFR (08/01/2024 6:03 AM THERMAL ENGINEER) [facility] eGFR 4(L) >=60 mL/min/1. 73 m2 Comment: Interpretive Data Reference Interval Normal >/= 90 mL/min/1.73m2 Mildly decreased* 60 - 89 mL/min/1.73m2 Mildly to moderately decreased 45 - 59 mL/min/1.73m2 Moderately to severely decreased 30 - 44 mL/min/1.73m2 Severely decreased 15 - 29 mL/min/1.73m2 Kidney Failure < 15 mL/min/1.73m2 *Relative to young adult level Estimated glomerular [...] last reviewed 2021. Blood 08/01/2024 6:03 AM THERMAL ENGINEER 08/01/2024 6:37 AM THERMAL ENGINEER us Tanisha Winter NP LAB BLOOD ORDERABLES Final Resul t [facility] [address] Department [place] [address] * (ABNORMAL) Basic metabolic panel (08/01/2024 6:03 AM THERMAL ENGINEER) Sodium 136 135 - 145 mmol/L Potassium, pl 3.9 3.3 - 4.9 mmol/L [facility] Chloride 95(L) 97 - 110 mmol/L [facility] CO2 22 22 - 32 mmol/L [facility] Anion gap 19(H) 2 - 15 mmol/L [facility] BUN 66(H) 6 - 25 mg/dL [facility] Creatinine 9.73(H) 0.60 - 1.10 mg/dL [facility] Glucose 90 70 - 199 mg/dL [facility] Comment: Interpretive Data Fasting glucose >/= 126 mg/dl is diagnostic for diabetes. Fasting is defined as no caloric intake [...] Calcium 9.1 8.5 - 10.3 mg/dL LAINE Blood 08/01/2024 6:03 AM THERMAL ENGINEER 08/01/2024 6:37 AM THERMAL ENGINEER Tanisha Moy STOCK FEEDER LAB BLOOD ORDERABLES Final Resul t [place] [id number] [employer] [place], [place] [id number] * (ABNORMAL) eGFR (07/31/2024 8:40 AM THERMAL ENGINEER) eGFR 4(L) >=60 mL/min/1. 73 m2 Comment: Interpretive Data Reference Interval Normal >/= 90 mL/min/1.73m2 Mildly decreased* 60 - 89 mL/min/1.73m2 Mildly to moderately decreased 45 - 59 mL/min/1.73m2 Moderately to severely decreased 30 - 44 mL/min/1.73m2 Severely decreased 15 - 29 mL/min/1.73m2 Kidney Failure < 15 mL/min/1.73m2 *Relative to young adult level Estimated glomerular [...] last reviewed 2021. Blood 07/31/2024 8:40 AM THERMAL ENGINEER 07/31/2024 9:42 AM THERMAL ENGINEER us Tanisha Winter STOCK FEEDER LAB BLOOD ORDERABLES Final Resul t [place] [id number] [address] [place] [address] * (ABNORMAL) Basic metabolic panel (07/31/2024 8:40 AM THERMAL ENGINEER) Sodium 139 135 - 145 mmol/L Potassium, pl 3.3 3.3 - 4.9 mmol/L [facility] Chloride 95(L) 97 - 110 mmol/L [facility] CO2 22 22 - 32 mmol/L [facility] Anion gap 22(H) 2 - 15 mmol/L [facility] BUN 62(H) 6 - 25 mg/dL [facility] Creatinine 9.53(H) 0.60 - 1.10 mg/dL [facility] Glucose 85 70 - 199 mg/dL [facility] Comment: Interpretive Data Fasting glucose >/= 126 mg/dl is diagnostic for diabetes. Fasting is defined as no caloric intake [...] 2022. Calcium 9.4 8.5 - 10.3 mg/dL [facility] Blood 07/31/2024 8:40 AM THERMAL ENGINEER 07/31/2024 9:42 AM THERMAL ENGINEER Tanisha Winter NP LAB BLOOD ORDERABLES Final Resul t [place] [address] Department [place] [address] * (ABNORMAL) eGFR (07/28/2024 4:32 AM THERMAL ENGINEER) eGFR 5(L) >=60 mL/min/1. 73 m2 Comment: Interpretive Data Reference Interval Normal >/= 90 mL/min/1.73m2 Mildly decreased* 60 - 89 mL/min/1.73m2 Mildly to moderately decreased 45 - 59 mL/min/1.73m2 Moderately to severely decreased 30 - 44 mL/min/1.73m2 Severely decreased 15 - 29 mL/min/1.73m2 Kidney Failure < 15 mL/min/1.73m2 *Relative to young adult level Estimated glomerular [...] last reviewed 2021. Blood 07/28/2024 4:32 AM THERMAL ENGINEER 07/28/2024 4:57 AM THERMAL ENGINEER us Nga Dumont MD LAB BLOOD ORDERABL ES Final Result [facility] [address] Department [place] [address] * (ABNORMAL) Differential, auto (07/28/2024 4:32 AM THERMAL ENGINEER) Neutrophil abs 7.5(H) 1.5 - 6.5 K/cumm Imm gran abs 0.7(H) 0.0 - 0.1 K/cumm [facility] Lymphocyte abs 1.0 0.8 - 3.3 K/cumm [facility] Monocyte abs 1.5(H) 0.2 - 0.8 K/cumm [facility] Eosinophil abs 0.2 0.0 - 0.5 K/cumm [facility] Basophil abs 0.1 0.0 - 0.1 K/cumm [facility] Neutrophil pct 68.9 % [facility] Comment: Interpretive Data Percent cell count reference ranges are not reported, since discordance with absolute values may lead to misinterpretation of CBC data. Current Interpretive Data was last revised on 2017. Imm gran pct 5.9 % [facility] Comment: Interpretive Data Percent cell count reference ranges are not reported, since discordance with absolute values may lead to misinterpretation of CBC data. Current Interpretive Data was last revised on 2017. Lymphocyte pct 9.0 % [facility] Comment: Interpretive Data Percent cell count reference ranges are not reported, since discordance with absolute values may lead to misinterpretation of CBC data. Current Interpretive Data was last revised on 2017. Monocyte pct 13.5 % [facility] Comment: Interpretive Data Percent cell count reference ranges are not reported, since discordance with absolute values may lead to misinterpretation of CBC data. Current Interpretive Data was last revised on 2017. Eosinophil pct 1.6 % [facility] Comment: Interpretive Data Percent cell count reference ranges are not reported, since discordance with absolute values may lead to misinterpretation of CBC data. Current Interpretive Data was last revised on 2017. Basophil pct 1.1 % [facility] Comment: Interpretive Data Percent cell count reference ranges are not reported, since discordance with absolute values may lead to misinterpretation of CBC data. Current Interpretive Data was last revised on 2017. Blood 07/28/2024 4:32 AM THERMAL ENGINEER 07/28/2024 4:57 AM THERMAL ENGINEER us Nga Dumont MD LAB BLOOD ORDERABL ES Final Result [facility] [address] Department [place] [address] * (ABNORMAL) CBC with auto differential (07/28/2024 4:32 AM THERMAL ENGINEER) WBC 11.0(H) 3.8 - 9.9 K/cumm Hgb 9.5(L) 11.9 - 15.5 g/dL [facility] Hct 32.8(L) 35.6 - 45.5 % [facility] Plt 353 150 - 400 K/cumm [facility] MPV 11.6 9.1 - 12.3 fL [facility] RBC 3.33(L) 3.90 - 5.20 M/cumm [facility] MCV 98.5(H) 81.3 - 96.4 fL [facility] MCH 28.5 27.1 - 33.3 pg [facility] MCHC 29.0(L) 32.3 - 35.7 g/dL [facility] RDW CV Not Measured 11.1 - 14.9 % [facility] RDW SD Not Measured 35.7 - 48.1 fL [facility] NRBC abs 0.12(H) 0.00 - 0.01 K/cumm [facility] Blood 07/28/2024 4:32 AM THERMAL ENGINEER 07/28/2024 4:57 AM THERMAL ENGINEER us Nga Dumont MD LAB BLOOD ORDERABL ES Final Result [facility] [place] [address] [address] Department [place] [address] * Phosphorus (07/28/2024 4:32 AM THERMAL ENGINEER) Phosphorus, pl 4.4 2.3 - 4.5 mg/dL Blood 07/28/2024 4:32 AM THERMAL ENGINEER 07/28/2024 4:57 AM THERMAL ENGINEER us Waqas Garcia MD LAB BLOOD ORDERABLES Final Resu lt Performing Organization Address [facility] Co de Phone Number [place] [address] [address] Department [place] [address] * (ABNORMAL) Comprehensive metabolic panel (07/28/2024 4:32 AM THERMAL ENGINEER) Sodium 140 135 - 145 mmol/L Potassium, pl 3.1(L) 3.3 - 4.9 mmol/L [facility] Chloride 96(L) 97 - 110 mmol/L [facility] CO2 25 22 - 32 mmol/L [facility] Anion gap 19(H) 2 - 15 mmol/L [facility] BUN 47(H) 6 - 25 mg/dL [facility] Creatinine 9.08(H) 0.60 - 1.10 mg/dL [facility] Glucose 103 70 - 199 mg/dL [facility] Comment: Interpretive Data Fasting glucose >/= 126 mg/dl is diagnostic for diabetes. Fasting is defined as no caloric intake [...] Units/L [facility] Blood 07/28/2024 4:32 AM THERMAL ENGINEER 07/28/2024 4:57 AM THERMAL ENGINEER us Nga Dumont MD LAB BLOOD ORDERABL ES Final Result [facility] [address] Department [place] [address] * XR Kub (07/27/2024 10:38 AM THERMAL ENGINEER) Anatomical Region Laterality Modality Body, Abdomen N/A Computed Radiogr aphy 07/27/2024 10:4 8 AM THERMAL ENGINEER Impressions 07/27/2024 10:48 AM THERMAL ENGINEER Findings/impression: Limited examination given technique. Nonobstructive bowel gas pattern. Right double-J ureteral stent appears appropriately positioned. Percutaneous catheter terminating in the pelvis likely represents peritoneal dialysis catheter. No acute osseous abnormality. Lung bases are unremarkable. Electronically signed by: Peter Porter II, D.O. Narrative 07/27/2024 10:48 AM THERMAL ENGINEER EXAMINATION: XR KUB DATE: 07/27/2024 10:25 AM [...] Result * (ABNORMAL) eGFR (07/26/2024 11:38 AM THERMAL ENGINEER) eGFR 4(L) >=60 mL/min/1. 73 m2 Comment: Interpretive Data Reference Interval Normal >/= 90 mL/min/1.73m2 Mildly decreased* 60 - 89 mL/min/1.73m2 Mildly to moderately decreased 45 - 59 mL/min/1.73m2 Moderately to severely decreased 30 - 44 mL/min/1.73m2 Severely decreased 15 - 29 mL/min/1.73m2 Kidney Failure < 15 mL/min/1.73m2 *Relative to young adult level Estimated glomerular [...] reviewed 2021. Blood 07/26/2024 11:3 8 AM THERMAL ENGINEER 07/26/2024 12:44 PM THERMAL ENGINEER us Nga Dumont MD LAB BLOOD ORDERABL ES Final Result [facility] [place] [address] Department [place] [address] * (ABNORMAL) Differential, auto (07/26/2024 11:38 AM THERMAL ENGINEER) Neutrophil abs 11.4(H) 1.5 - 6.5 K/cumm Imm gran abs 1.1(H) 0.0 - 0.1 K/cumm [facility] Lymphocyte abs 0.7(L) 0.8 - 3.3 K/cumm [facility] Monocyte abs 1.6(H) 0.2 - 0.8 K/cumm [facility] Eosinophil abs 0.2 0.0 - 0.5 K/cumm [facility] Basophil abs 0.1 0.0 - 0.1 K/cumm [facility] Neutrophil pct 75.7 % [facility] Comment: Interpretive Data Percent cell count reference ranges are not reported, since discordance with absolute values may lead to misinterpretation of CBC data. Current Interpretive Data was last revised on 2017. Imm gran pct 6.9 % [facility] Comment: Interpretive Data Percent cell count reference ranges are not reported, since discordance with absolute values may lead to misinterpretation of CBC data. Current Interpretive Data was last revised on 2017. Lymphocyte pct 4.9 % [facility] Comment: Interpretive Data Percent cell count reference ranges are not reported, since discordance with absolute values may lead to misinterpretation of CBC data. Current Interpretive Data was last revised on 2017. Monocyte pct 10.7 % [facility] Comment: Interpretive Data Percent cell count reference ranges are not reported, since discordance with absolute values may lead to misinterpretation of CBC data. Current Interpretive Data was last revised on 2017. Eosinophil pct 1.1 % [facility] Comment: Interpretive Data Percent cell count reference ranges are not reported, since discordance with absolute values may lead to misinterpretation of CBC data. Current Interpretive Data was last revised on 2017. Basophil pct 0.7 % [facility] Comment: Interpretive Data Percent cell count reference ranges are not reported, since discordance with absolute values may lead to misinterpretation of CBC data. Current Interpretive Data was last revised on 2017. Blood 07/26/2024 11:3 8 AM THERMAL ENGINEER 07/26/2024 12:44 PM THERMAL ENGINEER us Nga Dumont MD LAB BLOOD ORDERABL ES Final Result [facility] [address] Department [place] [address] * (ABNORMAL) CBC with auto differential (07/26/2024 11:38 AM THERMAL ENGINEER) WBC 15.1(H) 3.8 - 9.9 K/cumm Hgb [...] [facility] Blood 07/26/2024 11:3 8 AM THERMAL ENGINEER 07/26/2024 12:44 PM THERMAL ENGINEER us Nga Dumont MD LAB BLOOD ORDERABL ES Final Result [facility] [address] Department of Laboratories [place], [place] [id number] * (ABNORMAL) Comprehensive metabolic panel (07/26/2024 11:38 AM THERMAL ENGINEER) Sodium 138 135 - 145 mmol/L Potassium, pl 3.2(L) 3.3 - 4.9 mmol/L [facility] Chloride 94(L) 97 - 110 mmol/L [facility] CO2 22 22 - 32 mmol/L [facility] Anion gap 22(H) 2 - 15 mmol/L [facility] BUN 51(H) 6 - 25 mg/dL [facility] Creatinine 9.60(H) 0.60 - 1.10 mg/dL [facility] Glucose 133 70 - 199 mg/dL [facility] Comment: Interpretive Data Fasting glucose >/= 126 mg/dl is diagnostic for diabetes. Fasting is defined as no caloric intake [...] [facility] Blood 07/26/2024 11:3 8 AM THERMAL ENGINEER 07/26/2024 12:44 PM THERMAL ENGINEER us Nga Dumont MD LAB BLOOD ORDERABL ES Final Result [facility] [id number] Department [place] [address] * (ABNORMAL) CBC with auto differential (07/25/2024 8:10 AM THERMAL ENGINEER) WBC 18.6(H) 3.8 - 9.9 K/cumm Hgb 9.8(L) 11.9 - 15.5 g/dL [facility] Hct 32.5(L) 35.6 - 45.5 % [facility] Plt 276 150 - 400 K/cumm [facility] MPV 12.7(H) 9.1 - 12.3 fL [facility] RBC 3.37(L) 3.90 - 5.20 M/cumm [facility] MCV 96.4 81.3 - 96.4 fL [facility] MCH 29.1 27.1 - 33.3 pg [facility] MCHC 30.2(L) 32.3 - 35.7 g/dL [facility] RDW CV 25.7(H) 11.1 - 14.9 % [facility] RDW SD 85.3(H) 35.7 - 48.1 fL [facility] NRBC abs 0.23(H) 0.00 - 0.01 K/cumm [facility] Blood 07/25/2024 8:10 AM THERMAL ENGINEER 07/25/2024 8:32 AM THERMAL ENGINEER us Sudheer Escobar MD LAB BLOOD ORDERABLES Edited R esult - Final [facility] [address] Department [place] [address] * (ABNORMAL) Manual Differential (07/25/2024 8:10 AM THERMAL ENGINEER) Differential Manual Cells Counted 100 [facility] Neutrophil abs 16.6(H) 1.5 - 6.5 K/cumm [facility] Lymphocyte abs 0.6(L) 0.8 - 3.3 K/cumm [facility] Monocyte abs 1.5(H) 0.2 - 0.8 K/cumm [facility] Neutrophil pct 89.0 % [facility] Comment: Interpretive Data Percent cell count reference ranges are not reported, since discordance with absolute values may lead to misinterpretation of CBC data. Current Interpretive Data was last revised on 2017. Lymphocyte pct 3.0 % [facility] Comment: Interpretive Data Percent cell count reference ranges are not reported, since discordance with absolute values may lead to misinterpretation of CBC data. Current Interpretive Data was last revised on 2017. Monocyte pct 8.0 % [facility] Comment: Interpretive Data Percent cell count reference ranges are not reported, since discordance with absolute values may lead to misinterpretation of CBC data. Current Interpretive Data was last revised on 2017. RBC morphology Consistent with RBC Indicies [facility] Platelet estimate #[id number] [facility] Blood 07/25/2024 8:10 AM THERMAL ENGINEER 07/25/2024 8:32 AM THERMAL ENGINEER Sudheer Escobar MD LAB BLOOD ORDERABLES Final Re sult [facility] [address] Department [place] [address] * Type and screen (07/25/2024 8:10 AM THERMAL ENGINEER) ABO Rh B Positive Arianna, indirect Negative [facility] Blood 07/25/2024 8:10 AM THERMAL ENGINEER 07/25/2024 8:36 AM THERMAL ENGINEER Narrative [facility] - 07/25/2024 9:19 AM THERMAL ENGINEER Has the patient had Daratumumab or Isatuximab in the past 6 months?->Unknown Marilyn Martinez NP LAB BLOOD BANK TANYA T ORDERABLES Final Result Performing Organization Address City/[facility]/ZIP Co de Phone Number [place] [address] Department [place] [address] * (ABNORMAL) eGFR (07/24/2024 1:46 AM THERMAL ENGINEER) eGFR 4(L) >=60 mL/min/1. 73 m2 Comment: Interpretive Data Reference Interval Normal >/= 90 mL/min/1.73m2 Mildly decreased* 60 - 89 mL/min/1.73m2 Mildly to moderately decreased 45 - 59 mL/min/1.73m2 Moderately to severely decreased 30 - 44 mL/min/1.73m2 Severely decreased 15 - 29 mL/min/1.73m2 Kidney Failure < 15 mL/min/1.73m2 *Relative to young adult level Estimated glomerular [...] last reviewed 2021. Blood 07/24/2024 1:46 AM THERMAL ENGINEER 07/24/2024 2:13 AM THERMAL ENGINEER Marilyn Martinez NP LAB BLOOD ORDERABL ES Final Result Performing Organization Address [facility] Co de Phone Number [place] [address] [place] [address] * (ABNORMAL) CBC without differential (07/24/2024 1:46 AM THERMAL ENGINEER) WBC 18.7(H) 3.8 - 9.9 K/cumm Hgb 9.5(L) 11.9 - 15.5 g/dL [facility] Hct 30.0(L) 35.6 - 45.5 % [facility] Plt 234 150 - 400 K/cumm [facility] MPV 12.1 9.1 - 12.3 fL [facility] RBC 3.24(L) 3.90 - 5.20 M/cumm [facility] MCV 92.6 81.3 - 96.4 fL [facility] MCH 29.3 27.1 - 33.3 pg [facility] MCHC 31.7(L) 32.3 - 35.7 g/dL [facility] RDW CV 23.4(H) 11.1 - 14.9 % [facility] RDW SD 74.1(H) 35.7 - 48.1 fL [facility] NRBC abs 0.54(H) 0.00 - 0.01 K/cumm [facility] Blood 07/24/2024 1:46 AM THERMAL ENGINEER 07/24/2024 2:09 AM THERMAL ENGINEER Marilyn Martinez NP LAB BLOOD ORDERABL ES Final Result Performing Organization Address [facility]/ZIP Co de Phone Number LAINE TOWNSEND [address] [address] [facility] [employer] [place] [address] * Phosphorus (07/24/2024 1:46 AM THERMAL ENGINEER) Phosphorus, pl 3.4 2.3 - 4.5 mg/dL Blood 07/24/2024 1:46 AM THERMAL ENGINEER 07/24/2024 2:13 AM THERMAL ENGINEER Marilyn Lyric Juan LAB BLOOD ORDERABL ES Final Result Performing Organization Address [facility] Co de Phone Number LAINE TOWNSEND [address] [address] [facility] [place] [address] * Magnesium (07/24/2024 1:46 AM THERMAL ENGINEER) Pathologist [facility] Magnesium 2.5 1.4 - 2.5 mg/dL Blood 07/24/2024 1:46 AM THERMAL ENGINEER 07/24/2024 2:13 AM THERMAL ENGINEER Marilyn Gunter Juan LAB BLOOD ORDERABL ES Final Result Performing Organization Address [facility] de Phone Number [facility] [address] [address] [facility] [place] [address] * (ABNORMAL) Basic metabolic panel (07/24/2024 1:46 AM THERMAL ENGINEER) Pathologist [facility] Sodium 135 135 - 145 mmol/L Potassium, pl 3.5 3.3 - 4.9 mmol/L [facility] Chloride 91(L) 97 - 110 mmol/L [facility] CO2 21(L) 22 - 32 mmol/L [facility] Anion gap 23(H) 2 - 15 mmol/L [facility] BUN 53(H) 6 - 25 mg/dL [facility] Creatinine 9.10(H) 0.60 - 1.10 mg/dL [facility] Glucose 150 70 - 199 mg/dL [facility] Comment: Interpretive Data Fasting glucose >/= 126 mg/dl is diagnostic for diabetes. Fasting is defined as no caloric intake [...] 8.5 - 10.3 mg/dL LAINE TOWNSEND Blood 07/24/2024 1:46 AM THERMAL ENGINEER 07/24/2024 2:13 AM THERMAL ENGINEER Marilyn Martinez NP LAB BLOOD ORDERABL ES Final Result Performing Organization Address City/[facility]/ZIP Co de Phone Number LAINE TOWNSEND [address] [employer] [place], [place] [id number] * (ABNORMAL) eGFR (07/23/2024 2:02 AM THERMAL ENGINEER) eGFR 5(L) >=60 mL/min/1. 73 m2 Comment: Interpretive Data Reference Interval Normal >/= 90 mL/min/1.73m2 Mildly decreased* 60 - 89 mL/min/1.73m2 Mildly to moderately decreased 45 - 59 mL/min/1.73m2 Moderately to severely decreased 30 - 44 mL/min/1.73m2 Severely decreased 15 - 29 mL/min/1.73m2 Kidney Failure < 15 mL/min/1.73m2 *Relative to young adult level Estimated glomerular [...] last reviewed 2021. Blood 07/23/2024 2:02 AM THERMAL ENGINEER 07/23/2024 2:16 AM THERMAL ENGINEER Tanika De La Torre PA LAB BLOOD ORDERABLES F inal Result Performing Organization Address City/[facility]/ZIP Co de Phone Number LAINE TOWNSEND [address] Department of [employer] [place], [place] [id number] * (ABNORMAL) Protime-INR (07/23/2024 2:02 AM THERMAL ENGINEER) Pathologist [facility] PT 19.3(H) 9.7 - 13.0 sec INR 1.77(H) 0.90 - 1.20 [facility] Comment: Interpretive data Oral anticoagulant therapeutic ranges: Venous thromboembolism prophylaxis or treatment: 2.0-3.0 CARDIOLOGY Standard range: 2.0-3.0 High-intensity range: 2.5-3.5 Refer to indication-specific guidelines for appropriate target ranges for prosthetic heart valve replacement. Current interpretive data was last revised on 2019. Blood 07/23/2024 2:02 AM THERMAL ENGINEER 07/23/2024 2:14 AM THERMAL ENGINEER Marilyn Martinez NP LAB BLOOD ORDERABL ES Final Result LAINE [address] [address] Department of Laboratories [place] [id number] * (ABNORMAL) CBC without differential (07/23/2024 2:02 AM THERMAL ENGINEER) Pathologist [facility] WBC 18.3(H) 3.8 - 9.9 K/cumm Hgb 9.2(L) 11.9 - 15.5 g/dL [facility] Hct 26.7(L) 35.6 - 45.5 % [facility] Plt 236 150 - 400 K/cumm [facility] MPV 12.6(H) 9.1 - 12.3 fL [facility] RBC 3.09(L) 3.90 - 5.20 M/cumm [facility] MCV 86.4 81.3 - 96.4 fL [facility] MCH 29.8 27.1 - 33.3 pg [facility] MCHC 34.5 32.3 - 35.7 g/dL [facility] RDW CV 19.0(H) 11.1 - 14.9 % [facility] RDW SD 54.2(H) 35.7 - 48.1 fL [facility] NRBC abs 0.39(H) 0.00 - 0.01 K/cumm [facility] Blood 07/23/2024 2:02 AM THERMAL ENGINEER 07/23/2024 2:14 AM THERMAL ENGINEER Marilyn Lyric Martinez NP LAB BLOOD ORDERABL ES Final Result Performing Organization Address City/[facility] Co de Phone Number LAINE TOWNSEND [address] [place] [address] * Phosphorus (07/23/2024 2:02 AM THERMAL ENGINEER) Phosphorus, pl 3.0 2.3 - 4.5 mg/dL Blood 07/23/2024 2:02 AM THERMAL ENGINEER 07/23/2024 2:16 AM THERMAL ENGINEER Marilyn Gunter Juan WOODALL LAB BLOOD ORDERABL ES Final Result Performing Organization Address [facility] de Phone Number LAINE TOWNSEND [address] [address] [facility] [place] [address] * Magnesium (07/23/2024 2:02 AM THERMAL ENGINEER) Pathologist [facility] Magnesium 2.4 1.4 - 2.5 mg/dL Blood 07/23/2024 2:02 AM THERMAL ENGINEER 07/23/2024 2:16 AM THERMAL ENGINEER Marilyn Gunter Juan WOODALL LAB BLOOD ORDERABL ES Final Result Performing Organization Address [facility] de Phone Number LAINE TOWNSEND [address] [address] Department [place] [address] * (ABNORMAL) Basic metabolic panel (07/23/2024 2:02 AM THERMAL ENGINEER) Sodium 135 135 - 145 mmol/L Potassium, [...] >/= 126 mg/dl is diagnostic for diabetes. Fasting is defined as no caloric intake [...] mg/dL LAINE TOWNSEND Blood 07/23/2024 2:02 AM THERMAL ENGINEER 07/23/2024 2:16 AM THERMAL ENGINEER us Marilyn Martinez NP LAB BLOOD ORDERABL ES Final Result LAINE [address] [address] Department [place] [address] * Critical Care (07/22/2024 8:22 AM THERMAL ENGINEER) Narrative OfomaBlake MD - 07/22/2024 8:22 AM THERMAL ENGINEER Marilyn Martinez NP 07/22/2024 4:47 PM Critical Care Performed by: Marilyn Martinez NP Authorized by: Marilyn Martinez NP CRITICAL CARE: Team: MANASA Shift: AM Level of Billing: Subsequent Hospital Visit Level 3 My time spent with this patient was 85 minutes: Critical Provider Statement: I have seen and examined the patient on this day of service. I have reviewed and confirmed the history, physical exam, laboratory, and radiographic data as documented in the ICU note. I have reviewed and discussed my treatment plan with the patient's team and other medical/corporate health consultant staff. This time was in addition to and separate from care provided by other practitioners on this day of service. I spent time reviewing and interpreting data from bedside monitors, laboratory results, and imaging, I spent time discussing the management of this critically ill patient with consultants and the medical staff and I spent time documenting in the medical record us Marilyn Martinez NP IN CLINIC/BEDSIDE ORDERABLES Final Result * TRANSTHORACIC ECHO (TTE) COMPLETE W DOPPLER/CF W CONTRAST (07/22/2024 7:00 AM THERMAL ENGINEER) Anatomical Region Laterality Modality Ultrasound 07/22/2024 6:44 AM THERMAL ENGINEER Narrative 07/22/2024 8:34 [place] [address] Echocardiogram Report Patient Name: DORY NOBLE L : 1960 Study Date: 07/22/2024 6:44:33 AM Gender: F Tech: Location: [id number] Ref Provider: BLAIR NOE Height(Cm): 152 BSA: 2.02 Weight(Kg): 97 Heart Rate: 85 BP: 121 / 72 Quality: Good Order Provider: BLAIR NOE PROCEDURES: Echocardiographic Report: Transthoracic echocardiogram with complete 2D, M-Mode, color Doppler examination and contrast. INDICATIONS: Heart failure. MEASUREMENTS: 2D/MM Value Range Doppler Value Range EF Teich 2D 42.4 percent [ 54.0 - 74.0 ] YOLIS Vmax 1.47 cm2 EF Mod BP 38 % [ 54 - 74 ] AV Mean PG 9 mmHg LVIDd 2D 5.28 cm [ 3.80 - 5.20 ] AV Peak Ryan 2.11 m/s [ 1.00 - 1.70 ] LVIDs 2D 4.17 cm [ 2.20 - 3.50 ] AV VTI 31.95 cm LVPWd 2D 0.89 cm [ 0.60 - 0.90 ] LVOT Diam 2.04 cm IVSd 2D 1.02 cm [ 0.60 - 0.90 ] LVOT Peak Ryan 0.93 m/s [ 0.70 - 1.10 ] LA Dimension MM 5.82 cm [ 2.70 - 3.80 ] LVOT VTI 14.91 cm AoR Diam 2D 3.00 cm [ 2.70 - 3.70 ] SI LVOT 25.3 ml/m2 [ >= 35.0 ] AoR Diam MM 3.01 cm [ 2.70 - 3.70 ] MV Mean PG 4 mmHg LA Volume Index 52.03 cc/m2 [ 16.00 - 34.00 ] PV Peak Ryan 0.92 m/s [ 0.40 - 0.80 ] ACS MM 1.23 cm TR Peak Ryan 2.33 m/s [ 1.00 - 2.80 ] TR Peak PG 22 mmHg 2D/MM Value Range Doppler Value Range - FINDINGS: Atrial Septum: Normal atrial [...] By: Jennifer Carmichael MD 07/22/2024 8:33:01 AM THERMAL ENGINEER Procedure Note Rubin Carmichael MD - 07/22/2024 [place] [address] Echocardiogram Report Patient Name: DORY NOBLE L : 1960 Study Date: 07/22/2024 6:44:33 AM Gender: F Tech: Location: [id number] Ref Provider: BLAIR NOE Height(Cm): 152 BSA: [...] By: Jennifer Carmichael MD 07/22/2024 8:33:01 AM THERMAL ENGINEER Blair Noe APRN CV ECHO PROCEDURES Final Result * (ABNORMAL) eGFR (07/22/2024 5:41 AM THERMAL ENGINEER) eGFR 5(L) >=60 mL/min/1. 73 m2 Comment: Interpretive Data Reference Interval Normal >/= 90 mL/min/1.73m2 Mildly decreased* 60 - 89 mL/min/1.73m2 Mildly to moderately decreased 45 - 59 mL/min/1.73m2 Moderately to severely decreased 30 - 44 mL/min/1.73m2 Severely decreased 15 - 29 mL/min/1.73m2 Kidney Failure < 15 mL/min/1.73m2 *Relative to young adult level Estimated glomerular [...] last reviewed 2021. Blood 07/22/2024 5:41 AM THERMAL ENGINEER 07/22/2024 5:44 AM THERMAL ENGINEER us Tanika KNAPP LAB BLOOD ORDERABLES F inal Result LAINE [address] [address] Department [place] [address] * (ABNORMAL) CBC without differential (07/22/2024 5:41 AM THERMAL ENGINEER) WBC 19.5(H) 3.8 - 9.9 K/cumm Hgb 8.9(L) 11.9 - 15.5 g/dL [facility] Hct 25.8(L) 35.6 - 45.5 % [facility] Plt 241 150 - 400 K/cumm [facility] MPV 12.2 9.1 - 12.3 fL [facility] RBC 3.03(L) 3.90 - 5.20 M/cumm [facility] MCV 85.1 81.3 - 96.4 fL [facility] MCH 29.4 27.1 - 33.3 pg [facility] MCHC 34.5 32.3 - 35.7 g/dL [facility] RDW CV 16.3(H) 11.1 - 14.9 % [facility] RDW SD 47.0 35.7 - 48.1 fL [facility] NRBC abs 0.24(H) 0.00 - 0.01 K/cumm [facility] Blood 07/22/2024 5:41 AM THERMAL ENGINEER 07/22/2024 5:44 AM THERMAL ENGINEER Blair Noe APRN LAB BLOOD ORDERABL ES Final Result LAINE TOWNSEND [address] [address] [facility] [employer] [place] [address] * Phosphorus (07/22/2024 5:41 AM THERMAL ENGINEER) Phosphorus, pl 2.9 2.3 - 4.5 mg/dL Blood 07/22/2024 5:41 AM THERMAL ENGINEER 07/22/2024 5:44 AM THERMAL ENGINEER Marilyn Martinez STOCK FEEDER LAB BLOOD ORDERABL ES Final Result LAINE KRISTIAN [address] [address] [facility] [place] [address] * Magnesium (07/22/2024 5:41 AM THERMAL ENGINEER) Magnesium 2.5 1.4 - 2.5 mg/dL Blood 07/22/2024 5:41 AM THERMAL ENGINEER 07/22/2024 5:44 AM THERMAL ENGINEER Marilyn Martinez NP LAB BLOOD ORDERABL ES Final Result Performing Organization Address [facility] Co de Phone Number LAINE TOWNSEND [address] [address] [employer] [place] [address] * (ABNORMAL) Basic metabolic panel (07/22/2024 5:41 AM THERMAL ENGINEER) Pathologist [facility] Sodium 132(L) 135 - 145 mmol/L Potassium, pl 4.0 3.3 - 4.9 mmol/L [facility] Chloride 91(L) 97 - 110 mmol/L [facility] CO2 18(L) 22 - 32 mmol/L [facility] Anion gap 23(H) 2 - 15 mmol/L [facility] BUN 50(H) 6 - 25 mg/dL [facility] Creatinine 8.41(H) 0.60 - 1.10 mg/dL [facility] Glucose 139 70 - 199 mg/dL [facility] Comment: Interpretive Data Fasting glucose >/= 126 mg/dl is diagnostic for diabetes. Fasting is defined as no caloric intake [...] 2022. Calcium 9.2 8.5 - 10.3 mg/dL [facility] Blood 07/22/2024 5:41 AM THERMAL ENGINEER 07/22/2024 5:44 AM THERMAL ENGINEER Marilyn Martinez NP LAB BLOOD ORDERABL ES Final Result Performing Organization Address [facility] de Phone Number LAINE TOWNSEND [phone] [address] [place] [address] * Cell Differential, Body Fluid (07/22/2024 3:17 AM THERMAL ENGINEER) Total cells diffed 100 % Comment: Interpretive Data Unless otherwise specified, the reference range and other method performance specifications have not been established for CSF/Body Fluid tests. The test results should be integrated into the clinical context for interpretation. Current interpretive data was last revised on 2019. Neutrophils, fld 62 % [facility] Lymphs, fld 34 % [facility] Monocyte, fld 4 % [facility] Fluid 07/22/2024 3:17 AM THERMAL ENGINEER 07/22/2024 3:17 AM THERMAL ENGINEER Waqas Garcia MD LAB BODY FLUIDS AND STOOLS STEPHANIA PELAYO Final Result Performing Organization Address [facility] de Phone Number LAINE TOWNSEND [address] [address] [place] [address] * Cell count w/rflx diff, body fluid (07/22/2024 3:17 AM THERMAL ENGINEER) Specimen type, fld Dialysate Color, fld Straw [facility] Clarity, fld Clear [facility] Nucleated cells, fld 79 /cumm [facility] Comment: Interpretive Data Unless otherwise specified, the reference range and other method performance specifications have not been established for CSF/Body Fluid tests. The test results should be integrated into the clinical context for interpretation. Current interpretive data was last revised on 2019. RBC, fld <2,000 /cumm [facility] Fluid 07/22/2024 3:17 AM THERMAL ENGINEER 07/22/2024 3:17 AM THERMAL ENGINEER Waqas Garcia MD LAB BODY FLUIDS AND STOOLS STEPHANIA PELAYO Final Result Performing Organization Address [facility] Co de Phone Number SUMMER[facility]E [address] [address] [facility] [employer] [place], [place] [id number] * (ABNORMAL) Urinalysis reflex to microscopic and culture Urine (07/22/2024 1:57 AM THERMAL ENGINEER) Color, ur Mitzi Yellow Clarity, ur Turbid(A) Clear [facility] Specific gravity, ur 1.020 1.003 - 1.030 [facility] pH, urine 8.0 [facility] Comment: Interpretive Data U rine pH is affected by diet, medications, systemic acid-base disturbances, and renal tubular function. pH may affect urinary stone formation. For example, urine pH below 6.0 may help reduce the tendency for calcium phosphate stones and pH greater than 6.0 may reduce the tendency for uric acid stone formation. Source: [facility] Current Interpretive Data was last revised on [...] Reflex to microscopic UA will be performed. [facility] Urine 07/22/2024 1:57 AM THERMAL ENGINEER 07/22/2024 2:05 AM THERMAL ENGINEER Blair Noe APRN LAB MICROBIOLOGY - GENERAL ORDERABLES Final Result Performing Organization Address [facility] de Phone Number LAINE TOWNSEND [address] [address] Department [place] [address] * (ABNORMAL) Urinalysis, microscopic only (07/22/2024 1:57 AM THERMAL ENGINEER) WBC, ur >50(A) 0 - 5 /HPF RBC, ur >50(A) 0 - 2 /HPF [facility] Epithelial cells, squamous, ur 6-10(A) 0 - 5 /HPF [facility] Bacteria, ur Trace(A) [facility] Culture Reflex Comment Reflex to urine culture will be performed. [facility] Urine 07/22/2024 1:57 AM THERMAL ENGINEER 07/22/2024 2:05 AM THERMAL ENGINEER Bliar Noe APRN LAB URINE ORDERABL ES Final Result Performing Organization Address [facility] Co de Phone Number LAINE TOWNSEND [address] [address] Department [place] [address] * Urine culture Urine (07/22/2024 1:57 AM THERMAL ENGINEER) Report Final Report: No growth Comment:Testing performed by : [facility], [address] [facility], [place]., [address] Urine 07/22/2024 1:57 AM THERMAL ENGINEER 07/22/2024 4:30 AM THERMAL ENGINEER Narrative [facility] - 07/23/2024 6:18 AM THERMAL ENGINEER Urine culture reflexed based upon urinalysis results. Testing performed by [facility] Microbiology Laboratory ([phone]) Blair Noe APRN LAB MICROBIOLOGY - GENERAL ORDERABLES Final Result Performing Organization Address [facility] Co de Phone Number [facility] [address] [address] Department [place] [address] * ECG 12 lead (07/22/2024 1:33 AM THERMAL ENGINEER) 07/22/2024 1:33 AM THERMAL ENGINEER Narrative [facility] - 07/22/2024 9:16 AM THERMAL ENGINEER Vent Rate: 118 bpm RR Interval: 505 msec HI Interval: 0 msec QRS Duration: 113 msec QT Interval: 354 msec QTC Interval: 424 msec P-R-T Darby: 0 - 54 - 211 degrees IMPRESSION: ATRIAL FIBRILLATION WITH RAPID VENTRICULAR RESPONSE MODERATE INTRAVENTRICULAR CONDUCTION DELAY [110+ ms QRS DURATION] ST DEVIATION AND MODERATE T-WAVE ABNORMALITY, CONSIDER LATERAL ISCHEMIA [-0.1+ mV T-WAVE IN I/aVL/V5/V6] ST DEVIATION AND MODERATE T-WAVE ABNORMALITY, CONSIDER INFERIOR ISCHEMIA [-0.1+ mV T-WAVE IN II/aVF] ABNORMAL ECG Electronically Signed By: Jennifer Carmichael MD us Blair Noe APRN ECG ORDERABLES Fi nal Result Performing Organization Address City/[facility] Co de Phone Number [facility] [employer] [facility] * (ABNORMAL) CBC without differential (07/22/2024 12:51 AM THERMAL ENGINEER) WBC 20.0(H) 3.8 - 9.9 K/cumm Hgb 8.5(L) 11.9 - 15.5 g/dL [facility] Hct 24.3(L) 35.6 - 45.5 % [facility] Plt 236 150 - 400 K/cumm [facility] MPV 11.9 9.1 - 12.3 fL [facility] RBC 2.81(L) 3.90 - 5.20 M/cumm [facility] MCV 86.5 81.3 - 96.4 fL [facility] MCH 30.2 27.1 - 33.3 pg [facility] MCHC 35.0 32.3 - 35.7 g/dL [facility] RDW CV 15.6(H) 11.1 - 14.9 % [facility] RDW SD 46.7 35.7 - 48.1 fL [facility] NRBC abs 0.20(H) 0.00 - 0.01 K/cumm [facility] Blood 07/22/2024 12:5 1 AM THERMAL ENGINEER 07/22/2024 12:55 AM THERMAL ENGINEER us Blair Noe APRN LAB BLOOD ORDERABL ES Final Result LAINE TOWNSEND [address] [address] Department [place] [address] * Blood culture Blood (07/21/2024 11:44 PM THERMAL ENGINEER) Report Final Report: No growth Comment:Testing performed by : [facility], [address] [facility] [place] [address] Blood 07/21/2024 11:4 4 PM THERMAL ENGINEER 07/22/2024 6:05 AM THERMAL ENGINEER Narrative [facility] - 07/26/2024 7:00 AM THERMAL ENGINEER From a different site than #1. Collection->Peripheral 1. Blood cultures are incubated for 4 days on a continuously monitored blood culture system. The first report of a negative culture is issued within 24 hours of receipt of the specimen in the laboratory. 2. Positive culture results are reported as soon as they are detected. 3. The most important factor for detection of microbes in the setting of bloodstream infection is the volume of blood submitted for culture. Failure to collect an optimal blood volume can result in false negative blood cultures. 4. For pediatric patients, the recommended blood volume to collect follows a weight based strategy. See the electronic test catalog for collection instructions. 5. For positive blood cultures, a rapid molecular test [...] performance characteristics have been verified by the [facility] Microbiology Laboratory. For questions about this culture, contact the Microbiology Laboratory at [phone]. Interpretive data was last revised on 24. Blair Noe APRN LAB MICROBIOLOGY - GENERAL ORDERABLES Final Result LAINE TOWNSEND [address] [address] Department [place] [address] * Blood culture Blood (07/21/2024 11:44 PM THERMAL ENGINEER) Report Final Report: No growth Comment:Testing performed by : [facility], [address] [facility] [place]., [address] Blood 07/21/2024 11:4 4 PM THERMAL ENGINEER 07/22/2024 6:05 AM THERMAL ENGINEER Andree Haq 07/26/2024 7:00 AM THERMAL ENGINEER Collection->Peripheral 1. Blood cultures are incubated for 4 days on a continuously monitored blood culture system. The first report of a negative culture is issued within 24 hours of receipt of the specimen in the laboratory. 2. Positive culture results are reported as soon as they are detected. 3. The most important factor for detection of microbes in the setting of bloodstream infection is the volume of blood submitted for culture. Failure to collect an optimal blood volume can result in false negative blood cultures. 4. For pediatric patients, the recommended blood volume to collect follows a weight based strategy. See the electronic test catalog for collection instructions. 5. For positive blood cultures, a rapid molecular test [...] performance characteristics have been verified by the [facility] Microbiology Laboratory. For questions about this culture, contact the Microbiology Laboratory at [phone]. Interpretive data was last revised on 24. us Blair Tom Gretel LEAD INSTRUCTOR/FLIGHT ATTENDANT LAB MICROBIOLOGY - GENERAL ORDERABLES Final Result LAINE TOWNSEND [address] [address] Department [place] [address] * CTA Abdomen Pelvis (07/21/2024 10:13 PM THERMAL ENGINEER) Anatomical Region Laterality Modality Body N/A Computed Tomogra phy 07/21/2024 10:0 8 PM THERMAL ENGINEER Impressions 07/22/2024 10:40 AM THERMAL ENGINEER 1. Rectal thickening, question for proctitis. Colonic [...] Superimposed consolidation not excluded. Stat report by [facility] Electronically signed by: Sulaiman Xie M.D. Narrative 07/22/2024 10:40 AM THERMAL ENGINEER STUDY DESCRIPTION: CTA ABDOMEN PELVIS TECHNIQUE: Axial, [...] tissues: Abdominal wall subcutaneous soft tissue edema. Procedure Note [...] Superimposed consolidation not excluded. Stat report by [facility] Electronically signed by: Sulaiman Xie M.D. us Blair Noe APRN IMG CT PROCEDURES Final Result * Check Sample (07/21/2024 8:16 PM THERMAL ENGINEER) ABO Rh B Positive [facility] OTHER 07/21/2024 8:16 PM THERMAL ENGINEER 07/21/2024 8:22 PM THERMAL ENGINEER us Blake Nava MD LAB BLOOD ORDERABLES Fi nal Result LAINE [address] [facility] [place] Department [place] [address] CH * Critical Care (07/21/2024 7:48 PM THERMAL ENGINEER) Narrative Evert Pizarro MD - 07/21/2024 7:48 PM THERMAL ENGINEER Blair Noe APRN 07/22/2024 5:11 AM Critical Care Performed by: Blair Noe APRN Authorized by: Blair Noe APRN CRITICAL CARE: Team: MANASA Shift: PM Level of Billing: Critical Care My time spent with this patient was 120 minutes: Critical Provider Statement: I have seen and examined the patient on this day of service. I have reviewed and confirmed the history, physical exam, laboratory and radiologic data as documented in the signed ICU note. I have reviewed and discussed my treatment plan with the ICU team and other medical/corporate health consultant staff, making frequent assessments and decisions [...] or life-threatening deterioration of the following conditions: I spent time reviewing and interpreting data from bedside monitors, laboratory results, and imaging, I spent time discussing the management of this critically ill patient with consultants and the medical staff and I spent time documenting in the medical record Blair Noe APRN IN CLINIC/BEDSIDE ORDERABLES Final Result * Lactate (07/21/2024 6:55 PM THERMAL ENGINEER) Lactate 0.9 0.7 - 2.0 mmol/L Blood 07/21/2024 6:55 PM THERMAL ENGINEER 07/21/2024 7:13 PM THERMAL ENGINEER Tanika Mccain Wil PA LAB BLOOD ORDERABLES F inal Result Performing Organization Address City/[facility]/ZIP Co de Phone Number LAINE KRISTIAN [address] [place] [address] * Calcium, ionized, whole blood (07/21/2024 6:55 PM THERMAL ENGINEER) Ca, ionized, bld 4.60 4.50 - 5.10 mg/dL Blood 07/21/2024 6:55 PM THERMAL ENGINEER 07/21/2024 7:13 PM THERMAL ENGINEER Tanikalisa Mccain Wil PA LAB BLOOD ORDERABLES F inal Result LAINE KRISTIAN [address] Department of [employer] [place], [place] [id number] * (ABNORMAL) eGFR (07/21/2024 6:55 PM THERMAL ENGINEER) eGFR 5(L) >=60 mL/min/1. 73 m2 Comment: Interpretive Data Reference Interval Normal >/= 90 mL/min/1.73m2 Mildly decreased* 60 - 89 mL/min/1.73m2 Mildly to moderately decreased 45 - 59 mL/min/1.73m2 Moderately to severely decreased 30 - 44 mL/min/1.73m2 Severely decreased 15 - 29 mL/min/1.73m2 Kidney Failure < 15 mL/min/1.73m2 *Relative to young adult level Estimated glomerular [...] last reviewed 2021. Blood 07/21/2024 6:55 PM THERMAL ENGINEER 07/21/2024 7:13 PM THERMAL ENGINEER Tanika KNAPP LAB BLOOD ORDERABLES F inal Result LAINE KRISTIAN [address] [place] [address] * (ABNORMAL) Thyroid Function [place] (07/21/2024 6:55 PM THERMAL ENGINEER) TSH 10.30(H) 0.30 - 4.20 mcIUnit/mL Blood 07/21/2024 6:55 PM THERMAL ENGINEER 07/21/2024 7:13 PM THERMAL ENGINEER Tanikalisa KNAPP LAB BLOOD ORDERABLES F inal Result LAINE KRISTIAN [address] Department [employer] [place], [place] [id number] * Beta-hydroxybutyrate (07/21/2024 6:55 PM THERMAL ENGINEER) Beta-Hydroxybut yrate 0.2 <=0.5 mmol/L Blood 07/21/2024 6:55 PM THERMAL ENGINEER 07/21/2024 11:48 PM THERMAL ENGINEER Blair Noe APRN LAB BLOOD ORDERABL ES Final Result Performing Organization Address [facility] de Phone Number LAINE TOWNSEND [address] [address] [facility] [place] [address] * Infection Prevention MRSA Only (Staphylococcus aureus) PCR Nasal (07/21/2024 6:55 PM THERMAL ENGINEER) PCR Scrn, Methicillin resistant Staphylococcus aureus (MRSA) Not Detected Not Detected CH Comment: Interpretive Data Testing performed using Nucleic Acid Amplification with the [employer] Xpert MRSA NxG Assay. This assay detects target DNA from mecA, mecC and the SCCmec insertion site of Staphylococcus aureus using Real-Time PCR and has been cleared by the FDA. Performance characteristics have been verified by the [facility]. Current Interpretive Data was last revised on 2022 Nasal 07/21/2024 6:55 PM THERMAL ENGINEER 07/21/2024 7:12 PM THERMAL ENGINEER Tanika KNAPP LAB MICROBIOLOGY - GEN ERAL ORDERABLES Final Result Performing Organization Address [facility] de Phone Number LAINE TOWNSEND [address] [place] [address] * aPTT (07/21/2024 6:55 PM THERMAL ENGINEER) aPTT 38 28 - 38 sec Comment: Interpretive Data Heparin therapeutic range: 66.0 - 100.0 seconds. Range based on correlation with therapeutic heparin activity range of 0.3 - 0.7 Units/mL. Current interpretive data was last revised on 2023. Blood 07/21/2024 6:55 PM THERMAL ENGINEER 07/21/2024 7:13 PM THERMAL ENGINEER Tanika KNAPP LAB BLOOD ORDERABLES F inal Result Performing Organization Address [facility] Co de Phone Number LAINE TOWNSEDN [address] Department [place] [address] * (ABNORMAL) Protime-INR (07/21/2024 6:55 PM THERMAL ENGINEER) Pathologist [facility] PT 23.3(H) 9.7 - 13.0 sec INR 2.12(H) 0.90 - 1.20 [facility] Comment: Interpretive data Oral anticoagulant therapeutic ranges: Venous thromboembolism prophylaxis or treatment: 2.0-3.0 CARDIOLOGY Standard range: 2.0-3.0 High-intensity range: 2.5-3.5 Refer to indication-specific guidelines for appropriate target ranges for prosthetic heart valve replacement. Current interpretive data was last revised on 2019. Blood 07/21/2024 6:55 PM THERMAL ENGINEER 07/21/2024 7:13 PM THERMAL ENGINEER Tanika KNAPP LAB BLOOD ORDERABLES F inal Result LAINE TOWNSEND [address] Department [place] [address] * (ABNORMAL) CBC without differential (07/21/2024 6:55 PM THERMAL ENGINEER) Pathologist [facility] WBC 20.4(H) 3.8 - 9.9 K/cumm Hgb 8.4(L) 11.9 - 15.5 g/dL [facility] Hct 24.2(L) 35.6 - 45.5 % [facility] Plt 230 150 - 400 K/cumm [facility] MPV 12.2 9.1 - 12.3 fL [facility] RBC 2.79(L) 3.90 - 5.20 M/cumm [facility] MCV 86.7 81.3 - 96.4 fL [facility] MCH 30.1 27.1 - 33.3 pg [facility] MCHC 34.7 32.3 - 35.7 g/dL [facility] RDW CV 14.7 11.1 - 14.9 % [facility] RDW SD 44.9 35.7 - 48.1 fL [facility] NRBC abs 0.17(H) 0.00 - 0.01 K/cumm [facility] Blood 07/21/2024 6:55 PM THERMAL ENGINEER 07/21/2024 7:13 PM THERMAL ENGINEER Tanika KNAPP LAB BLOOD ORDERABLES F inal Result Performing Organization Address [facility] Co de Phone Number SUMMERSTEVE [address] [facility] [place] [address] * Type and screen (07/21/2024 6:55 PM THERMAL ENGINEER) ABO Rh B Positive Arianna, indirect Negative [facility] Blood 07/21/2024 6:55 PM THERMAL ENGINEER 07/21/2024 7:22 PM THERMAL ENGINEER Narrative [facility] - 07/21/2024 8:22 PM THERMAL ENGINEER Has the patient had Daratumumab or Isatuximab in the past 6 months?->Unknown Marilyn Martinez LAB BLOOD BANK TANYA T ORDERABLES Final Result Performing Organization Address [facility] Co de Phone Number SUMMERSTEVE [address] [facility] [place] [address] * T4, free (07/21/2024 6:55 PM THERMAL ENGINEER) Free T4 1.04 0.90 - 1.70 ng/dL Blood 07/21/2024 6:55 PM THERMAL ENGINEER 07/21/2024 7:13 PM THERMAL ENGINEER Tanika KNAPP LAB BLOOD ORDERABLES F inal Result Performing Organization Address [facility] Co de Phone Number [facility] [address] [address] [facility] [place] [address] * Phosphorus (07/21/2024 6:55 PM THERMAL ENGINEER) Phosphorus, pl 2.5 2.3 - 4.5 mg/dL Blood 07/21/2024 6:55 PM THERMAL ENGINEER 07/21/2024 7:13 PM THERMAL ENGINEER [place] Vistalisa Mccain Wil PA LAB BLOOD ORDERABLES F inal Result Performing Organization Address City/[facility] Co de Phone Number LAINE TOWNSEND [address] [address] [facility] [place] [address] * Magnesium (07/21/2024 6:55 PM THERMAL ENGINEER) Magnesium 2.2 1.4 - 2.5 mg/dL Blood 07/21/2024 6:55 PM THERMAL ENGINEER 07/21/2024 7:13 PM THERMAL ENGINEER [facility] BLOOD ORDERABLES F inal Result Performing Organization Address [facility] de Phone Number LAINE TOWNSEND [address] [facility] [place] [address] * (ABNORMAL) Hepatic function panel (07/21/2024 6:55 PM THERMAL ENGINEER) Bilirubin, total 0.6 0.1 - 1.2 mg/dL Bilirubin, direct 0.3 0.1 - 0.3 mg/dL [facility] Protein, pl 5.8(L) 6.5 - 8.5 g/dL [facility] Albumin 3.5 3.5 - 5.0 g/dL [facility] Alk phos 115 40 - 130 Units/L [facility] ALT 26 7 - 45 Units/L [facility] AST 19 10 - 45 Units/L [facility] Blood 07/21/2024 6:55 PM THERMAL ENGINEER 07/21/2024 7:13 PM THERMAL ENGINEER [facility] Adán Wil PA LAB BLOOD ORDERABLES F inal Result Performing Organization Address [facility] Co de Phone Number LAINE TOWNSEND [address] [facility] [place] [address] * (ABNORMAL) Basic metabolic panel (07/21/2024 6:55 PM THERMAL ENGINEER) Sodium 135 135 - 145 mmol/L Potassium, pl 4.1 3.3 - 4.9 mmol/L [facility] Chloride 94(L) 97 - 110 mmol/L [facility] CO2 19(L) 22 - 32 mmol/L [facility] Anion gap 22(H) 2 - 15 mmol/L [facility] BUN 50(H) 6 - 25 mg/dL [facility] Creatinine 8.60(H) 0.60 - 1.10 mg/dL [facility] Glucose 105 70 - 199 mg/dL [facility] Comment: Interpretive Data Fasting glucose >/= 126 mg/dl is diagnostic for diabetes. Fasting is defined as no caloric intake [...] 2022. Calcium 9.1 8.5 - 10.3 mg/dL [facility] Blood 07/21/2024 6:55 PM THERMAL ENGINEER 07/21/2024 7:13 PM THERMAL ENGINEER Tanika KNAPP LAB BLOOD ORDERABLES F inal Result [facility] [address] Department [place] [address] * X-ray chest 1 view (Portable) (07/21/2024 6:42 PM THERMAL ENGINEER) Anatomical Region Laterality Modality Body, Chest N/A Computed Radiogr aphy 07/21/2024 7:05 PM THERMAL ENGINEER Impressions 07/21/2024 7:05 PM THERMAL ENGINEER NO ACUTE PULMONARY CHANGE. Electronically signed by: Sulaiman Xie M.D. Narrative 07/21/2024 7:05 PM THERMAL ENGINEER EXAMINATION: XR CHEST 1 VIEW HISTORY: Atrial [...] Result * POCT glucose (07/21/2024 6:33 PM THERMAL ENGINEER) Glucose, POC 97 70 - 199 mg/dL Blood 07/21/2024 6:33 PM THERMAL ENGINEER 07/21/2024 6:33 PM THERMAL ENGINEER us Blake Nava MD LAB POCT ORDERABLES - D EVICE Final Result Performing Organization Address City/[facility]/ZIP Co de Phone Number SUMMERSTEVE [address] Department [place] [address] * XR Outside Reference (07/21/2024 12:00 AM THERMAL ENGINEER) Narrative [facility] - 08/28/2024 2:44 PM THERMAL ENGINEER This order has been auto-finalized and does not contain a result. us Not In File Miscellaneous IMG XR PROCEDURES Samina l Result [facility] * XR Outside Reference (07/19/2024 12:00 AM THERMAL ENGINEER) Narrative [facility] - 08/28/2024 2:46 PM THERMAL ENGINEER This order has been auto-finalized and does not contain a result. us Not In File Miscellaneous IMG XR PROCEDURES Samina l Result Performing Organization Address [facility] de Phone Number [facility] * US Outside Reference (07/19/2024 12:00 AM THERMAL ENGINEER) Narrative [facility] - 08/28/2024 2:48 PM THERMAL ENGINEER This order has been auto-finalized and does not contain a result. us Not In File Miscellaneous IMG US PROCEDURES Samina l Result Performing Organization Address [facility] de Phone Number [facility] * XR Outside Reference (07/18/2024 12:00 AM THERMAL ENGINEER) Narrative [facility] - 09/01/2024 10:16 AM THERMAL ENGINEER This order has been auto-finalized and does not contain a result. us Not In File Miscellaneous IMG XR PROCEDURES Samina l Result Performing Organization Address [facility] de Phone Number [facility] * XR Outside Reference (07/16/2024 12:00 AM THERMAL ENGINEER) Narrative [facility] - 09/01/2024 10:17 AM THERMAL ENGINEER This order has been auto-finalized and does not contain a result. us Not In File Miscellaneous IMG XR PROCEDURES Samina l Result Performing Organization Address [facility] de Phone Number [email or web address] * Cardiology Document Scan (07/15/2024 10:51 AM THERMAL ENGINEER) Anatomical Region Laterality Modality Other us Jia Beard NP CV CARDIAC SERVICES PROCEDUR ES Final Result * CT Body Outside Reference (07/14/2024 12:00 AM THERMAL ENGINEER) Narrative [facility] - 09/01/2024 10:56 AM THERMAL ENGINEER This order has been auto-finalized and does not contain a result. us Not In File Miscellaneous IMG CT PROCEDURES Samina familia Result [facility] from Last 3 Months
--- OUTSIDE RECORDS SUMMARY | 2024-10-03 00:51 | XMS_ITS | Clinical Summary ---
Author Organization [facility] Address [address] [place] [address] Care Team Providers Care Steam Shovel Operator Name Role Phone Unavailable Primary Care Provider Unavailabl e Source Comments [facility],non-owned Affiliates and Associated Physician Practices is amultiple site organization consisting of ambulatory clinics and hospital sitesin [place], [place], [place] and [place]. This disclosure is being madepursuant to the Care Everywhere program and may not contain all information available regarding this patient. Last updated 18.[facility] Allergies Active Allergy Reactions Criticality Noted Date [...] LIPID TESTING 1961 MAMMOGRAM 1961 MEDICARE AWV 12 MONTHS 1961 PAP SMEAR 1961 HIV [...] to complete this topic MENINGOCOCCAL (Group B) VACC INE SHARED DECISION-MAKING Aged Out No longer eligibl e based on patient's age to complete this topic MENINGOCOCCAL GROUPS A/C/Y/W VACCINE Aged Out No longer eligible b ased on patient's age to complete this topic PNEUMOCOCCAL VACCINE Aged Out No long er eligible based on patient's age to complete this topic
--- OUTSIDE RECORDS SUMMARY | 2024-10-03 00:51 | XMS_ITS | Clinical Summary ---
Author Organization [facility] [address] Address [address] [place] [address] Care Team Providers Care Yeast Supervisor Name Role Phone Mookie Dubois MD Unavailable [phone] Abigail Dougherty RN Unavailable [phone] Jama Hoskins MD Unavailable [phone] Porsche Becker NP Primary Care Provider [phone] Allergies Active Allergy Reactions Criticality Noted Date [...] mouth 2 (two) times a day rx #[id number] Active losartan (COZAAR) 50 mg tablet Take [...] 08/21/2024 Physical deconditioning 07/25/2024 Atrial fibrillation 08/10/2021 Encounters Date Type Department Care Team Description 09/30/2024 Telephone [facility] Cardiology [address] [facility] [address] [place] [phone] Jama Hoskins MD 09/05/2024 Telephone [facility] Cardiology [address] [facility] [address] [place] [phone] Jama Hoskins MD 09/03/2024 Telephone [facility] Transplant Kidney [address] [facility] [address] Mailstop [phone] [place] [address] Abigail Dougherty, RN 08/28/2024 Home Care Visit [address] [address] [address] [place] [address] Lillian Campuzano, PT PT VIRTUAL NON OASIS DISCHARGE 08/20/2024 7:40 PM ARTIST CONSULTANT - 08/26/2024 6:54 PM ARTIST CONSULTANT Hospital Encounter [address] [address] Mike Connell MD Myla, Lathamanjari, MD Anemia due to chronic kidney disease, on chronic dialysis (HCC) (Primary Dx) Discharge Disposition: Discharge to home or self care 08/20/2024 11:15 AM ARTIST CONSULTANT Home Care Visit [address] [address] [address] [place] [address] Ana Cristina Kelley COTA CASE COMMUNICATION 08/20/2024 10:45 AM ARTIST CONSULTANT Home Care Visit [address] [place] [address] Dominga Head, RYAN PT HOME VISIT 08/20/2024 Home Care Visit [address] [place] [address] Lillian Campuzano, PT PT OASIS TRANSFER W/OUT DC 08/20/2024 Home Care Visit [address] [place] [address] Dominga Head PTA CASE COMMUNICATION 08/20/2024 Telephone [facility] Cardiology [address] [place] [address] [address] [place] [phone] Lydia Lewis NP 08/19/2024 11:30 AM ARTIST CONSULTANT Office Visit [address] [place] [phone] Lydia Lewis NP Hypotension due to hypovolemia (Primary Dx); Dilated cardiomyopathy (HCC); Persistent atrial fibrillation (HCC); Chronic anticoagulation; ESRD (end stage renal disease) on dialysis (HCC) 08/14/2024 Telephone [facility] Cardiology [address] [place] [address] [place] [phone] Jama Hoskins MD Hypotension 08/12/2024 12:45 PM ARTIST CONSULTANT Home Care Visit [address] [address] [address] [place] [address] Dominga Head PTA PT HOME VISIT 08/12/2024 10:00 AM ARTIST CONSULTANT Home Care Visit [address] [address] [place] [address] Zofia Cosby, OT OT INITIAL EVALUATION 08/12/2024 Home Care Visit [address] [address] [place] [address] Lillian Campuzano, PT CARE CONFERENCE 08/09/2024 Home Care Visit [address] [address] [place] [address] Magui Friedman, RUPESH NURSE MED RECON FOR THERAPY 08/07/2024 8:30 AM ARTIST CONSULTANT Home Care Visit [address] [address] [place] [address] Lillian Campuzano, PT PT OASIS START OF CARE 08/07/2024 Plan of Care Documentation [address] [address] [address] [place] [address] 08/06/2024 Telephone [facility] [address] [place] [address] Carson Huffman MA 08/05/2024 Telephone [facility] [address] [place] [address] Carson Huffman MA 08/04/2024 Telephone [facility] Cardiology [address] [facility] [address], [place] [address] Tanisha Winter NP 08/03/2024 Travel 08/01/2024 Orders Only [facility] Cardiology [address] [facility] [address] [place] [phone] Jia Beard NP 07/25/2024 6:50 PM ARTIST CONSULTANT - 08/04/2024 3:37 PM ARTIST CONSULTANT Hospital Encounter [facility] [address] [place] [address] Nga Dumont MD Physical deconditioning [R53.81] (Primary Dx) Discharge Disposition: Discharge to home, home health skilled care 07/25/2024 Telephone [facility] Cardiology [address] [place] [address] [address], [place] [address] Tanisha Winter NP 07/22/2024 Documentation [facility] Transplant Kidney [address] [place] [address] Kiera Lake RN 07/22/2024 Documentation [facility] Trans[facility] [address] [facility] [address]op -[address] [place] [address] Annalise Mays 07/22/2024 Telephone [facility] Trans[facility] [address] [facility] [phone] [place] [address] Kiera Lake RN 07/21/2024 6:22 PM ARTIST CONSULTANT - 07/25/2024 6:46 PM ARTIST CONSULTANT Hospital Encounter [address] [address] Ofoma, Blake AryanMD Jasmyne daly Huzaifa, MD Paruchuri, Tharun, MD Shanker, MD Sudheer Paroxysmal atrial fibrillation (HCC) (Primary Dx) Discharge Disposition: Discharge to an IP Rehab facility 07/21/2024 Ancillary Procedure [facility] 07/21/2024 Telephone [facility] Trans[facility] Kidney [address] [facility] [address] Mailstop [phone] [place] [address] Loli Moran 07/19/2024 Ancillary Procedure [facility] 07/19/2024 Ancillary Procedure [facility] 07/18/2024 Ancillary Procedure [facility] 07/16/2024 Ancillary Procedure [facility] 07/14/2024 Ancillary Procedure [facility] from Last 3 Months Immunizations Immunization Administration Dates Next Due Hep B Vaccine 03/04/2022,,11/25/2021,10/14/2021,2021 Influenza, Unspecified 05/03/2023 Pneumococcal, Unspecified 08/08/2021 Tdap 12/19/2023,09/27/2023,2022 Surgical History Surgery Date Site/Laterality Comments SECTION 1 TONSILLECTOMY as a child PORTACATH PLACEMENT right upper chest Medical History Medical History Date Comments SOB (shortness of breath) Acute kidney failure, unspecified A-fib (HCC) CHF (congestive heart failure) (HCC) Pneumonia Pleural effusion Hypertension Eczema feet, arms which is resolved Wears glasses Dental root implant present Walker as ambulation aid Permanent central venous catheter in place right upper chest Dialysis patient Family History Medical History Relation Name Comments [...] often do you attend chur ch or orthodoxy services? Patient declined 07/26/2024 Do you belong to any clubs o r organizations such as presybeterian groups, unions, fraternal or athletic groups, or [...] staff should administer the PHQ-9) 0 08/21/2024 [facility] [place] of Occupat ional Health - Occupational Stress [...] any time in the past [address] [facility], were you homeless or living in a assisted (including now)? No 07/26/2024 Personal Safety Answer Date Recorded Have you ever been in or are you currently in a harmful physical or emotional relationship or is someone making you feel afraid or unsafe? Denies 08/21/2024 Comments Unknown Sex and Gender Information Value Date Recorded Sex Assigned at Not on file 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 ARTIST CONSULTANT Gender Identity Not on file Sexual Orientation Not on file Obstetrics History Last Filed Vital Signs Vital Sign Reading Time Taken Comments Blood Pressure 93/68 08/26/2024 3:53 PM ARTIST CONSULTANT Pulse 88 08/26/2024 11:45 AM ARTIST CONSULTANT Temperature 36.8 C (98.3 F) 08/26/2024 3:53 PM ARTIST CONSULTANT Respiratory Rate 18 08/26/2024 3:53 PM ARTIST CONSULTANT Oxygen Saturation 100% 08/26/2024 3:53 PM ARTIST CONSULTANT Inhaled Oxygen Concentration - - Weight 89 kg (196 lb 3.4 oz) 08/25/2024 8:00 PM ARTIST CONSULTANT Height 152.4 cm (5') 08/21/2024 2:48 AM ARTIST CONSULTANT Body Mass Index 38.32 08/21/2024 2:48 AM ARTIST CONSULTANT Plan of Treatment Health Maintenance Due Date Last Done Comments Breast Cancer Screening-Mammogram 1961 Cervical Cancer Screening 1961 Colon Cancer Screening-Colonoscopy 1961 Hepatitis C Screening 1961 Regular Well Visit/Exam 18-64 12/26/1979 Pneumococcal vaccine <65 (1 of 2 - PCV) 1980 08/08/2021 Zoster Vaccine (1 of 2) 12/26/2011 Covid-19 Vaccine (5 - 2023-2 5 season) 2024 07/02/2023, 06/28/2021, 10/15/2020, Additional history exists Influenza Vaccine (#1) 2024 05/03/2023 Depression Screening 08/20/2025 08/20/2024, 08/20/2024, 07/25/2024, Additional history exists DTaP/Tdap/Td Vaccine (5 - Td or Tdap) 12/18/2033 12/19/2023, 09/27/2023, 2022, Additional history exists Hepatitis B Screening Completed 03/04/2022 , 02/16/2022, 11/25/2021, Additional history exists Medical Devices Implanted Type Area Pusher Runner Device Identifier Shelf Expiration Date Model / Serial / Lot Dental Implant Other - see comments Description:Upper [employer] Mobile 15fr 62cm 2 Cuff Radiopaque Peritoneal Curl Catheter [id number] - [id number] Implanted:Qty: 1 on 04/03/2022 by Sulaiman Hi MD at [facility] Left: Abdomen [employer] 10/16/2026 [id number] / / [id number] Procedures Procedure Name Priority Date/Time Associated Diagnosis Comments DIFFERENTIAL AUTO Routine 08/26/2024 2:3 6 AM ARTIST CONSULTANT CBC WITH AUTO DIFFERENTIAL Routine 08/26/2024 2:36 AM ARTIST CONSULTANT CONTINUOUS CYCLIC PERITONEAL DIALYSIS (CCPD) Routine 08/26/2024 12:31 AM ARTIST CONSULTANT XR CHEST 1 VIEW IP Routine 08/25/2024 3:10 PM ARTIST CONSULTANT CELL DIFFERENTIAL, BODY FLUID Routine 08/25/2024 2:32 PM ARTIST CONSULTANT AMYLASE, BODY FLUID Routine 08/25/2024 2 :32 PM ARTIST CONSULTANT CELL COUNT W/REFLEX DIFFERENTIAL, BODY FLUID Routine 08/25/2024 2:32 PM ARTIST CONSULTANT GLUCOSE, BODY FLUID Routine 08/25/2024 2 :32 PM ARTIST CONSULTANT LACTATE DEHYDROGENASE, BODY FLUID Routine 08/25/2024 2:32 PM ARTIST CONSULTANT PROTEIN, BODY FLUID Routine 08/25/2024 2 :32 PM ARTIST CONSULTANT XR CHEST PA LATERAL 2 VIEWS IP Routine 08/25/2024 8:27 AM ARTIST CONSULTANT DIFFERENTIAL AUTO Routine 08/25/2024 3:0 3 AM ARTIST CONSULTANT CBC WITH AUTO DIFFERENTIAL Routine 08/25/2024 3:03 AM ARTIST CONSULTANT CYTOLOGY Routine 08/25/2024 12:00 AM ARTIST CONSULTANT DIFFERENTIAL AUTO Routine 08/24/2024 4:3 4 AM ARTIST CONSULTANT CBC WITH AUTO DIFFERENTIAL Routine 08/24/2024 4:34 AM ARTIST CONSULTANT EGFR Routine 08/22/2024 9:54 AM ARTIST CONSULTANT DIFFERENTIAL AUTO Routine 08/22/2024 9:5 4 AM ARTIST CONSULTANT COMPREHENSIVE METABOLIC PANEL Routine 08/22/2024 9:54 AM ARTIST CONSULTANT CBC WITH AUTO DIFFERENTIAL Routine 08/22/2024 9:54 AM ARTIST CONSULTANT URINALYSIS, MICROSCOPIC ONLY Routine 08/21/2024 6:01 PM ARTIST CONSULTANT URINE CULTURE Routine 08/21/2024 6:01 PM ARTIST CONSULTANT URINALYSIS AND REFLEX TO MICROSCOPIC AND CULTURE Routine 08/21/2024 6:[address] CHEST ABDOMEN PELVIS WO CONTRAST ED Urgent/IP Urgent 08/21/2024 4:56 PM ARTIST CONSULTANT VITAMIN B12 Routine 08/21/2024 7:44 AM ARTIST CONSULTANT FOLATE Routine 08/21/2024 7:44 AM ARTIST CONSULTANT IRON PROFILE W/ IBC Routine 08/21/2024 7 :44 AM ARTIST CONSULTANT BLOOD CULTURE Routine 08/21/2024 7:44 AM ARTIST CONSULTANT BLOOD CULTURE Routine 08/21/2024 7:44 AM ARTIST CONSULTANT EGFR Routine 08/21/2024 2:52 AM ARTIST CONSULTANT DIFFERENTIAL AUTO Routine 08/21/2024 2:5 2 AM ARTIST CONSULTANT COMPREHENSIVE METABOLIC PANEL Routine 08/21/2024 2:52 AM ARTIST CONSULTANT CBC WITH AUTO DIFFERENTIAL Routine 08/21/2024 2:52 AM ARTIST CONSULTANT XR CHEST 1 VIEW ED 08/21/2024 1:09 AM ARTIST CONSULTANT POTASSIUM, WHOLE BLOOD Timed 08/21/2024 12:48 AM ARTIST CONSULTANT HEMOGLOBIN AND HEMATOCRIT Timed 08/21/2024 12:48 AM ARTIST CONSULTANT TRANSFUSE RED BLOOD CELLS Timed 08/20/2024 9:36 PM ARTIST CONSULTANT PREPARE RBC STAT 08/20/2024 8:06 PM ARTIST CONSULTANT APTT STAT 08/20/2024 8:02 PM ARTIST CONSULTANT PROTIME-INR STAT 08/20/2024 8:02 PM ARTIST CONSULTANT TYPE AND SCREEN STAT 08/20/2024 8:02 PM ARTIST CONSULTANT EGFR STAT 08/20/2024 1:06 PM ARTIST CONSULTANT DIFFERENTIAL AUTO STAT 08/20/2024 1:0 6 PM ARTIST CONSULTANT MAGNESIUM Routine 08/20/2024 1:06 PM ARTIST CONSULTANT COMPREHENSIVE METABOLIC PANEL STAT 08/20/2024 1:06 PM ARTIST CONSULTANT CBC WITH AUTO DIFFERENTIAL STAT 08/20/2024 1:06 PM ARTIST CONSULTANT ECG 12-LEAD Routine 08/20/2024 12:45 PM ARTIST CONSULTANT DIFFERENTIAL AUTO Routine 08/02/2024 5:4 5 AM ARTIST CONSULTANT CBC WITH AUTO DIFFERENTIAL Routine 08/02/2024 5:45 AM ARTIST CONSULTANT EGFR Routine 08/01/2024 6:03 AM ARTIST CONSULTANT BASIC METABOLIC PANEL Routine 08/01/2024 6:03 AM ARTIST CONSULTANT EGFR Routine 07/31/2024 8:40 AM ARTIST CONSULTANT BASIC METABOLIC PANEL Routine 07/31/2024 8:40 AM ARTIST CONSULTANT EGFR Routine 07/28/2024 4:32 AM ARTIST CONSULTANT DIFFERENTIAL AUTO Routine 07/28/2024 4:3 2 AM ARTIST CONSULTANT PHOSPHORUS Routine 07/28/2024 4:32 AM ARTIST CONSULTANT CBC WITH AUTO DIFFERENTIAL Routine 07/28/2024 4:32 AM ARTIST CONSULTANT COMPREHENSIVE METABOLIC PANEL Routine 07/28/2024 4:32 AM ARTIST CONSULTANT XR KUB IP Routine 07/27/2024 10:38 AM ARTIST CONSULTANT EGFR Routine 07/26/2024 11:38 AM ARTIST CONSULTANT DIFFERENTIAL AUTO Routine 07/26/2024 11: 38 AM ARTIST CONSULTANT CBC WITH AUTO DIFFERENTIAL Routine 07/26/2024 11:38 AM ARTIST CONSULTANT COMPREHENSIVE METABOLIC PANEL Routine 07/26/2024 11:38 AM ARTIST CONSULTANT CONTINUOUS AMBULATORY PERITONEAL DIALYSIS (CAPD) Routine 07/25/2024 3:08 PM ARTIST CONSULTANT MANUAL DIFFERENTIAL Timed 07/25/2024 8 :10 AM ARTIST CONSULTANT CBC WITH AUTO DIFFERENTIAL Timed 07/25/2024 8:10 AM ARTIST CONSULTANT TYPE AND SCREEN Timed 07/25/2024 8:10 AM ARTIST CONSULTANT EGFR Routine 07/24/2024 1:46 AM ARTIST CONSULTANT CBC WITHOUT DIFFERENTIAL Routine 07/24/2024 1:46 AM ARTIST CONSULTANT PHOSPHORUS Routine 07/24/2024 1:46 AM ARTIST CONSULTANT MAGNESIUM Routine 07/24/2024 1:46 AM ARTIST CONSULTANT BASIC METABOLIC PANEL Routine 07/24/2024 1:46 AM ARTIST CONSULTANT EGFR Routine 07/23/2024 2:02 AM ARTIST CONSULTANT PROTIME-INR Routine 07/23/2024 2:02 AM ARTIST CONSULTANT CBC WITHOUT DIFFERENTIAL Routine 07/23/2024 2:02 AM ARTIST CONSULTANT PHOSPHORUS Routine 07/23/2024 2:02 AM ARTIST CONSULTANT MAGNESIUM Routine 07/23/2024 2:02 AM ARTIST CONSULTANT BASIC METABOLIC PANEL Routine 07/23/2024 2:02 AM ARTIST CONSULTANT CRITICAL CARE Routine 07/22/2024 8:22 AM ARTIST CONSULTANT Paroxysmal atrial fibrillation (HCC) TRANSTHORACIC ECHO (TTE) COMPLETE W DOPPLER/CF W CONTRAST STAT 07/22/2024 7:00 AM ARTIST CONSULTANT EGFR Routine 07/22/2024 5:41 AM ARTIST CONSULTANT CBC WITHOUT DIFFERENTIAL Timed 07/22/2024 5:41 AM ARTIST CONSULTANT PHOSPHORUS Routine 07/22/2024 5:41 AM ARTIST CONSULTANT MAGNESIUM Routine 07/22/2024 5:41 AM ARTIST CONSULTANT BASIC METABOLIC PANEL Routine 07/22/2024 5:41 AM ARTIST CONSULTANT CELL DIFFERENTIAL, BODY FLUID Routine 07/22/2024 3:17 AM ARTIST CONSULTANT CELL COUNT W/REFLEX DIFFERENTIAL, BODY FLUID Routine 07/22/2024 3:17 AM ARTIST CONSULTANT URINALYSIS, MICROSCOPIC ONLY STAT 07/22/2024 1:57 AM ARTIST CONSULTANT URINE CULTURE STAT 07/22/2024 1:57 AM ARTIST CONSULTANT URINALYSIS AND REFLEX TO MICROSCOPIC AND CULTURE STAT 07/22/2024 1:57 AM ARTIST CONSULTANT ECG 12-LEAD STAT 07/22/2024 1:33 AM ARTIST CONSULTANT CBC WITHOUT DIFFERENTIAL Timed 07/22/2024 12:51 AM ARTIST CONSULTANT CONTINUOUS AMBULATORY PERITONEAL DIALYSIS (CAPD) Routine 07/22/2024 12:31 AM ARTIST CONSULTANT CONTINUOUS AMBULATORY PERITONEAL DIALYSIS (CAPD) Routine 07/21/2024 11:45 PM ARTIST CONSULTANT BLOOD CULTURE STAT 07/21/2024 11:44 PM ARTIST CONSULTANT BLOOD CULTURE STAT 07/21/2024 11:44 PM ARTIST CONSULTANT CONTINUOUS AMBULATORY PERITONEAL DIALYSIS (CAPD) Routine 07/21/2024 11:43 PM ARTIST CONSULTANT CTA ABDOMEN PELVIS W WO CONTRAST ED Urgent/IP Urgent 07/21/2024 10:13 PM ARTIST CONSULTANT B CHECK SAMPLE STAT 07/21/2024 8:16 PM ARTIST CONSULTANT CRITICAL CARE Routine 07/21/2024 7:48 PM ARTIST CONSULTANT BETA-HYDROXYBUTYRATE Add-On 07/21/2024 6:55 PM ARTIST CONSULTANT T4, FREE STAT 07/21/2024 6:55 PM ARTIST CONSULTANT EGFR STAT 07/21/2024 6:55 PM ARTIST CONSULTANT THYROID FUNCTION CASCADE STAT 07/21/2024 6:55 PM ARTIST CONSULTANT PROTIME-INR STAT 07/21/2024 6:55 PM ARTIST CONSULTANT APTT STAT 07/21/2024 6:55 PM ARTIST CONSULTANT TYPE AND SCREEN Timed 07/21/2024 6:55 PM ARTIST CONSULTANT CBC WITHOUT DIFFERENTIAL STAT 07/21/2024 6:55 PM ARTIST CONSULTANT LACTATE STAT 07/21/2024 6:55 PM ARTIST CONSULTANT CALCIUM,IONIZED, WHOLE BLOOD STAT 07/21/2024 6:55 PM ARTIST CONSULTANT PHOSPHORUS STAT 07/21/2024 6:55 PM ARTIST CONSULTANT HEPATIC FUNCTION PANEL STAT 07/21/2024 6:55 PM ARTIST CONSULTANT BASIC METABOLIC PANEL STAT 07/21/2024 6:55 PM ARTIST CONSULTANT MAGNESIUM STAT 07/21/2024 6:55 PM ARTIST CONSULTANT INFECTION PREVENTION MRSA ONLY (STAPHYLOCOCCUS AUREUS) PCR Routine 07/21/2024 6:55 PM ARTIST CONSULTANT XR CHEST 1 VIEW ED Urgent/IP Urgent 07/21/2024 6:42 PM ARTIST CONSULTANT POCT GLUCOSE DEVICE Routine 07/21/2024 6 :33 PM ARTIST CONSULTANT XR TRANSFER OF OUTSIDE FILMS Routine 07/21/2024 12:00 AM ARTIST CONSULTANT US TRANSFER OF OUTSIDE FILMS Routine 07/19/2024 12:00 AM ARTIST CONSULTANT XR TRANSFER OF OUTSIDE FILMS Routine 07/19/2024 12:00 AM ARTIST CONSULTANT XR TRANSFER OF OUTSIDE FILMS Routine 07/18/2024 12:00 AM ARTIST CONSULTANT XR TRANSFER OF OUTSIDE FILMS Routine 07/16/2024 12:00 AM ARTIST CONSULTANT CARDIOLOGY DOCUMENT SCAN Routine 07/15/2024 10:[address] BODY OUTSIDE REFERENCE Routine 07/14/2024 12:00 AM ARTIST CONSULTANT from Last 3 Months Results * (ABNORMAL) Differential, auto (08/26/2024 2:36 AM ARTIST CONSULTANT) Neutrophil abs 7.6(H) 1.5 - 6.5 K/cumm Imm gran abs 0.1 0.0 - 0.1 K/cumm [facility] Lymphocyte abs 0.6(L) 0.8 - 3.3 K/cumm [facility] Monocyte abs 1.3(H) 0.2 - 0.8 K/cumm [facility] Eosinophil abs 0.2 0.0 - 0.5 K/cumm [facility] CH Basophil abs 0.1 0.0 - 0.1 K/cumm CERNER Neutrophil pct 77.1 % [facility] Comment: Interpretive Data Percent cell count reference ranges are not reported, since discordance with absolute values may lead to misinterpretation of CBC data. Current Interpretive Data was last revised on 2017. Imm gran pct 1.3 % [facility] Comment: Interpretive Data Percent cell count reference ranges are not reported, since discordance with absolute values may lead to misinterpretation of CBC data. Current Interpretive Data was last revised on 2017. Lymphocyte pct 5.7 % [facility] Comment: Interpretive Data Percent cell count reference ranges are not reported, since discordance with absolute values may lead to misinterpretation of CBC data. Current Interpretive Data was last revised on 2017. Monocyte pct 13.0 % [facility] Comment: Interpretive Data Percent cell count reference ranges are not reported, since discordance with absolute values may lead to misinterpretation of CBC data. Current Interpretive Data was last revised on 2017. Eosinophil pct 2.3 % [facility] Comment: Interpretive Data Percent cell count reference ranges are not reported, since discordance with absolute values may lead to misinterpretation of CBC data. Current Interpretive Data was last revised on 2017. Basophil pct 0.6 % [facility] Comment: Interpretive Data Percent cell count reference ranges are not reported, since discordance with absolute values may lead to misinterpretation of CBC data. Current Interpretive Data was last revised on 2017. Blood 08/26/2024 2:36 AM ARTIST CONSULTANT 08/26/2024 4:06 AM ARTIST CONSULTANT Bobby Ya MD LAB BLOOD ORDERABLES Final Result [facility] [id number] Department [place] [address] * (ABNORMAL) CBC with auto differential (08/26/2024 2:36 AM ARTIST CONSULTANT) WBC 9.9 3.8 - 9.9 K/cumm Hgb 7.2(L) 11.9 - 15.5 g/dL [facility] Hct 24.2(L) 35.6 - 45.5 % [facility] Plt 383 150 - 400 K/cumm [facility] MPV 8.7(L) 9.1 - 12.3 fL [facility] RBC 2.36(L) 3.90 - 5.20 M/cumm [facility] MCV 102.5(H) 81.3 - 96.4 fL [facility] MCH 30.5 27.1 - 33.3 pg [facility] MCHC 29.8(L) 32.3 - 35.7 g/dL [facility] RDW CV 15.9(H) 11.1 - 14.9 % [facility] RDW SD 58.7(H) 35.7 - 48.1 fL [facility] NRBC abs 0.00 0.00 - 0.01 K/cumm [facility] Blood 08/26/2024 2:36 AM ARTIST CONSULTANT 08/26/2024 4:06 AM ARTIST CONSULTANT us Bobby Ya MD LAB BLOOD ORDERABLES Final Result [facility] [id number] Department [place] [address] * XR Chest 1 Vw Portable (08/25/2024 3:10 PM ARTIST CONSULTANT) Anatomical Region Laterality Modality Body, Chest N/A Computed Radiogr aphy 08/25/2024 3:29 PM ARTIST CONSULTANT Impressions 08/25/2024 3:29 PM ARTIST CONSULTANT FINDINGS/IMPRESSION: Small bilateral pleural effusions. No consolidation. Borderline cardiomegaly. No acute osseous abnormality. Electronically signed by: Peter Porter II, D.O. Narrative 08/25/2024 3:29 PM ARTIST CONSULTANT EXAMINATION: XR CHEST 1 VIEW DATE: 08/25/2024 2:10 PM INDICATION: Thoracentesis. COMPARISON: 09/17/2024. Procedure Note Peter Porter II, DO - 08/25/2024 EXAMINATION: XR CHEST 1 VIEW DATE: 08/25/2024 2:10 PM INDICATION: Thoracentesis. COMPARISON: 09/17/2024. IMPRESSION: FINDINGS/IMPRESSION: Small bilateral pleural effusions. No consolidation. Borderline cardiomegaly. No acute osseous abnormality. Electronically signed by: Peter Porter II, D.O. us Charles Hendrickson MD IMG XR PROCEDURES Final Result * Cell Differential, Body Fluid (08/25/2024 2:32 PM ARTIST CONSULTANT) Total cells diffed 82 % Comment: Interpretive [...] % [facility] Fluid 08/25/2024 2:32 PM ARTIST CONSULTANT 08/25/2024 2:32 PM ARTIST CONSULTANT Charles Hendrickson MD LAB BODY FLUIDS AND STO OLS ORDERABLES Final Result Performing Organization Address [facility] de Phone Number LAINE [phone] [address] Department of [employer] [address] * Cell count w/rflx diff, body fluid (08/25/2024 2:32 PM ARTIST CONSULTANT) Specimen type, fld Pleural Body site, fld [...] /cumm [facility] CH Fluid 08/25/2024 2:32 PM ARTIST CONSULTANT 08/25/2024 2:32 PM ARTIST CONSULTANT Charles Hendrickson MD LAB BODY FLUIDS AND STO OLS ORDERABLES Final Result Performing Organization Address [facility] Co de Phone Number LAINE [phone] [address] [facility] [place] [address] * Protein, body fluid (08/25/2024 2:32 PM ARTIST CONSULTANT) Specimen type, fld Pleural Comment:Testing performed by : [facility], [address] [place]., [address] Body site, fld Pleural fluid, left [facility] CH Comment:Testing performed by : [facility], [address] [place]., [address] Protein, fld 3.5 g/dL LAINE Comment: The above specimen type is not [...] was last revised 2019. Testing performed by: [facility], [address] [place]., [address] Fluid 08/25/2024 2:32 PM ARTIST CONSULTANT 08/25/2024 5:52 PM ARTIST CONSULTANT Charles Hendrickson MD LAB BODY FLUIDS AND STO OLS ORDERABLES Final Result [facility] [id number] Department [place] [address] * Lactate dehydrogenase, body fluid (08/25/2024 2:32 PM ARTIST CONSULTANT) Specimen type, fld Pleural Comment:Testing performed by : [facility], [address] [place]., [address] Body site, fld Pleural fluid, left LAINE Comment:Testing performed by : [facility], [address] [place]., [address] LD, fld 151 Units/L LAINE Comment: The above specimen type is not [...] was last revised 2019. Testing performed by: [facility], [address] [place]., [address] Fluid 08/25/2024 2:32 PM ARTIST CONSULTANT 08/25/2024 5:52 PM ARTIST CONSULTANT us Charles Hendrickson MD LAB BODY FLUIDS AND STO OLS ORDERABLES Final Result [facility] [address] Department [place] [address] * Glucose, body fluid (08/25/2024 2:32 PM ARTIST CONSULTANT) Specimen type, fld Pleural Comment:Testing performed by : [facility], [address] [facility], [place]., [address] Body site, fld Pleural fluid, left LAINE TOWNSEND Comment:Testing performed by : [facility], [address] [place]., [address] Glucose, fld 109 mg/dL LAINE TOWNSEND Comment: [...] and Management. Meir Clin J Med 2005;72:854-72. [employer] Test directory, Body Fluid Reference Intervals and/or Interpretative Information. [email or web address] Danika COUCH et al. Pancreatic cyst fluid glucose: rapid, inexpensive, and accurate diagnosis of mucinous pancreatic cysts. Surgery 2018;163:600-5. Mohsen GUAN et al. Differential diagnosis of pancreatic cysts: A prospective study on the role of intra-cystic glucose concentration. Digestive Liver Dis 2020;52:1026-32. Current Interpretive Data was last revised 2021. Testing performed by: [facility], [address] [place] [address]., [address] Fluid 08/25/2024 2:32 PM ARTIST CONSULTANT 08/25/2024 5:52 PM ARTIST CONSULTANT Narrative LAINE - 08/25/2024 7:28 PM ARTIST CONSULTANT Body Fluid Type->Pleural us Charles Hendrickson MD LAB BODY FLUIDS AND STO OLS ORDERABLES Final Result [facility] [address] Department [place] [address] * Amylase, body fluid (08/25/2024 2:32 PM ARTIST CONSULTANT) Specimen type, fld Pleural fluid, left Comment:Testing performed by : [facility], [address] [place]., [address] Amylase, fld <30 Units/L LAINE TOWNSEND Comment: Repeated and Verified The above specimen [...] 2018. Chapter 43, Body Fluids, p. 925 [employer] Test directory, Body Fluid Reference Intervals and/or Interpretative Information. [email or web address] Current Interpretive Data was last revised 2019. Testing performed by: [facility], [address] [facility], [place]., [address] Fluid 08/25/2024 2:32 PM ARTIST CONSULTANT 08/25/2024 5:52 PM ARTIST CONSULTANT us Charles Hendrickson MD LAB BODY FLUIDS AND STO OLS ORDERABLES Final Result [facility] [place]END [address] Department [place] [address] * XR Chest PA Lateral 2 Views (08/25/2024 8:27 AM ARTIST CONSULTANT) Anatomical Region Laterality Modality Body, Chest N/A Computed Radiogr aphy 08/25/2024 8:52 AM ARTIST CONSULTANT Impressions 08/25/2024 8:52 AM ARTIST CONSULTANT PERSISTENT PLEURAL EFFUSIONS LARGER ON THE LEFT THAN THE RIGHT. MILD FLUID OVERLOAD Electronically signed by: Bryant Alvarez M.D. Narrative 08/25/2024 8:52 AM ARTIST CONSULTANT EXAMINATION: XR CHEST PA LATERAL 2 VIEWS [...] OVERLOAD Electronically signed by: Bryant Alvarez M.D. us Charles Hendrickson MD IMG XR PROCEDURES Final Result * (ABNORMAL) Differential, auto (08/25/2024 3:03 AM ARTIST CONSULTANT) Neutrophil abs 7.4(H) 1.5 - 6.5 K/cumm Imm gran abs 0.1 0.0 - 0.1 K/cumm [facility] Lymphocyte abs 0.6(L) 0.8 - 3.3 K/cumm [facility] Monocyte abs 1.3(H) 0.2 - 0.8 K/cumm [facility] Eosinophil abs 0.3 0.0 - 0.5 K/cumm [facility] Basophil abs 0.1 0.0 - 0.1 K/cumm [facility] Neutrophil pct 75.8 % [facility] Comment: Interpretive Data Percent cell count reference ranges are not reported, since discordance with absolute values may lead to misinterpretation of CBC data. Current Interpretive Data was last revised on 2017. Imm gran pct 1.0 % [facility] Comment: Interpretive Data Percent cell count reference ranges are not reported, since discordance with absolute values may lead to misinterpretation of CBC data. Current Interpretive Data was last revised on 2017. Lymphocyte pct 6.6 % [facility] Comment: Interpretive Data Percent cell count reference ranges are not reported, since discordance with absolute values may lead to misinterpretation of CBC data. Current Interpretive Data was last revised on 2017. Monocyte pct 13.3 % [facility] Comment: Interpretive Data Percent cell count reference ranges are not reported, since discordance with absolute values may lead to misinterpretation of CBC data. Current Interpretive Data was last revised on 2017. Eosinophil pct 2.7 % [facility] Comment: Interpretive Data Percent cell count reference ranges are not reported, since discordance with absolute values may lead to misinterpretation of CBC data. Current Interpretive Data was last revised on 2017. Basophil pct 0.6 % [facility] Comment: Interpretive Data Percent cell count reference ranges are not reported, since discordance with absolute values may lead to misinterpretation of CBC data. Current Interpretive Data was last revised on 2017. Blood 08/25/2024 3:03 AM ARTIST CONSULTANT 08/25/2024 4:15 AM ARTIST CONSULTANT Bobby Ya MD LAB BLOOD ORDERABLES Final Result [facility] [address] [place] [address] * (ABNORMAL) CBC with auto differential (08/25/2024 3:03 AM ARTIST CONSULTANT) WBC 9.8 3.8 - 9.9 K/cumm Hgb 7.3(L) 11.9 - 15.5 g/dL [facility] Hct 24.3(L) 35.6 - 45.5 % [facility] Plt 424(H) 150 - 400 K/cumm [facility] MPV 8.6(L) 9.1 - 12.3 fL [facility] RBC 2.36(L) 3.90 - 5.20 M/cumm [facility] MCV 103.0(H) 81.3 - 96.4 fL [facility] MCH 30.9 27.1 - 33.3 pg [facility] MCHC 30.0(L) 32.3 - 35.7 g/dL [facility] RDW CV 16.2(H) 11.1 - 14.9 % [facility] RDW SD 61.8(H) 35.7 - 48.1 fL [facility] NRBC abs 0.00 0.00 - 0.01 K/cumm [facility] Blood 08/25/2024 3:03 AM ARTIST CONSULTANT 08/25/2024 4:15 AM ARTIST CONSULTANT Bobby Ya MD LAB BLOOD ORDERABLES Final Result [facility] [place] [address] Department [facility] [place], [place] [id number] * Cytology (08/25/2024 12:00 AM ARTIST CONSULTANT) Fluid (Pleura (Cytology)) 08/25/2024 08/25/2024 2:53 PM ARTIST CONSULTANT Narrative PATHOLOGY CH - 08/27/2024 12:43 PM ARTIST CONSULTANT EPIC results best viewed via link to PDF [facility] Department of Pathology [address] [place] [id number] Note to Patients: This report may [...] explain the details. Final Report Patient Name: CHATO NOBLE Address: [address] [place] [address] Gender: F : 1960 (Age: 63) Service: Medical Location: [facility] # [id number] Patient Type: [facility] Taken: 08/25/2024 Received: 08/25/2024 Accessioned: 08/25/2024 [...] determined by the Surgical Pathology Department at [facility] as part of an ongoing advanced quality engineer program and in compliance with federally mandated [...] characteristics determined by the Surgical Pathology Department [facility]. It has not been cleared or approved by the U. S. Food and Drug Administration. Unless otherwise noted all cytology processing, staining and screening is performed at [facility] ([address] [place] [address]). REPORT IMAGES AND SCANNED DOCUMENTS, IF INCLUDED, ONLY VIEWABLE IN PDF VERSION OF REPORT us Charles Hendrickson MD LAB CYTOLOGY ORDERABLES [place] [address] * (ABNORMAL) Differential, auto (08/24/2024 4:34 AM ARTIST CONSULTANT) Neutrophil abs 7.9(H) 1.5 - 6.5 K/cumm Imm gran abs 0.1 0.0 - 0.1 K/cumm [facility] Lymphocyte abs 0.6(L) 0.8 - 3.3 K/cumm [facility] Monocyte abs 1.3(H) 0.2 - 0.8 K/cumm [facility] Eosinophil abs 0.3 0.0 - 0.5 K/cumm [facility] Basophil abs 0.1 0.0 - 0.1 K/cumm [facility] Neutrophil pct 77.1 % [facility] Comment: Interpretive Data Percent cell count reference ranges are not reported, since discordance with absolute values may lead to misinterpretation of CBC data. Current Interpretive Data was last revised on 2017. Imm gran pct 1.4 % [facility] Comment: Interpretive Data Percent cell count reference ranges are not reported, since discordance with absolute values may lead to misinterpretation of CBC data. Current Interpretive Data was last revised on 2017. Lymphocyte pct 5.4 % [facility] Comment: Interpretive Data Percent cell count reference ranges are not reported, since discordance with absolute values may lead to misinterpretation of CBC data. Current Interpretive Data was last revised on 2017. Monocyte pct 12.6 % [facility] Comment: Interpretive Data Percent cell count reference ranges are not reported, since discordance with absolute values may lead to misinterpretation of CBC data. Current Interpretive Data was last revised on 2017. Eosinophil pct 2.9 % [facility] Comment: Interpretive Data Percent cell count reference ranges are not reported, since discordance with absolute values may lead to misinterpretation of CBC data. Current Interpretive Data was last revised on 2017. Basophil pct 0.6 % [facility] Comment: Interpretive Data Percent cell count reference ranges are not reported, since discordance with absolute values may lead to misinterpretation of CBC data. Current Interpretive Data was last revised on 2017. Blood 08/24/2024 4:34 AM ARTIST CONSULTANT 08/24/2024 4:49 AM ARTIST CONSULTANT Bobby Ya MD LAB BLOOD ORDERABLES Final Result [facility] [address] Department [place] [address] * (ABNORMAL) CBC with auto differential (08/24/2024 4:34 AM ARTIST CONSULTANT) WBC 10.3(H) 3.8 - 9.9 K/cumm Hgb 7.0(L) 11.9 - 15.5 g/dL [facility] Hct 23.3(L) 35.6 - 45.5 % [facility] Plt 410(H) 150 - 400 K/cumm [facility] MPV 8.4(L) 9.1 - 12.3 fL [facility] RBC 2.24(L) 3.90 - 5.20 M/cumm [facility] MCV 104.0(H) 81.3 - 96.4 fL [facility] MCH 31.3 27.1 - 33.3 pg [facility] MCHC 30.0(L) 32.3 - 35.7 g/dL [facility] RDW CV 16.7(H) 11.1 - 14.9 % [facility] RDW SD 64.5(H) 35.7 - 48.1 fL [facility] NRBC abs 0.00 0.00 - 0.01 K/cumm [facility] Blood 08/24/2024 4:34 AM ARTIST CONSULTANT 08/24/2024 4:49 AM ARTIST CONSULTANT Bobby Ya MD LAB BLOOD ORDERABLES Final Result [facility] [address] Department [place] [address] * (ABNORMAL) eGFR (08/22/2024 9:54 AM ARTIST CONSULTANT) eGFR 3(L) >=60 mL/min/1. 73 m2 Comment: [...] last reviewed 2021. Blood 08/22/2024 9:54 AM ARTIST CONSULTANT 08/22/2024 10:37 AM ARTIST CONSULTANT us Rhiannondon Familia WOODALL LAB BLOOD ORDERABLES Final R esult [facility] [address] Department [place] [address] * (ABNORMAL) Differential, auto (08/22/2024 9:54 AM ARTIST CONSULTANT) Neutrophil abs 9.3(H) 1.5 - 6.5 K/cumm Imm gran abs 0.2(H) 0.0 - 0.1 K/cumm [facility] Lymphocyte abs 0.7(L) 0.8 - 3.3 K/cumm [facility] Monocyte abs 1.2(H) 0.2 - 0.8 K/cumm [facility] Eosinophil abs 0.3 0.0 - 0.5 K/cumm [facility] Basophil abs 0.1 0.0 - 0.1 K/cumm [facility] Neutrophil pct 79.3 % [facility] Comment: Interpretive Data Percent cell count reference ranges are not reported, since discordance with absolute values may lead to misinterpretation of CBC data. Current Interpretive Data was last revised on 2017. Imm gran pct 1.3 % [facility] Comment: Interpretive Data Percent cell count reference ranges are not reported, since discordance with absolute values may lead to misinterpretation of CBC data. Current Interpretive Data was last revised on 2017. Lymphocyte pct 5.7 % [facility] Comment: Interpretive Data Percent cell count reference ranges are not reported, since discordance with absolute values may lead to misinterpretation of CBC data. Current Interpretive Data was last revised on 2017. Monocyte pct 10.4 % [facility] Comment: Interpretive Data Percent cell count reference ranges are not reported, since discordance with absolute values may lead to misinterpretation of CBC data. Current Interpretive Data was last revised on 2017. Eosinophil pct 2.7 % [facility] Comment: Interpretive Data Percent cell count reference ranges are not reported, since discordance with absolute values may lead to misinterpretation of CBC data. Current Interpretive Data was last revised on 2017. Basophil pct 0.6 % [facility] Comment: Interpretive Data Percent cell count reference ranges are not reported, since discordance with absolute values may lead to misinterpretation of CBC data. Current Interpretive Data was last revised on 2017. Blood 08/22/2024 9:54 AM ARTIST CONSULTANT 08/22/2024 10:36 AM ARTIST CONSULTANT Kala Barbosa NP LAB BLOOD ORDERABLES Final R esult [facility] TOWNSEND [address] [place] [address] * (ABNORMAL) CBC with auto differential (08/22/2024 9:54 AM ARTIST CONSULTANT) WBC 11.7(H) 3.8 - 9.9 K/cumm Hgb 7.4(L) 11.9 - 15.5 g/dL [facility] Hct 24.6(L) 35.6 - 45.5 % [facility] Plt 462(H) 150 - 400 K/cumm [facility] MPV 8.5(L) 9.1 - 12.3 fL [facility] RBC 2.37(L) 3.90 - 5.20 M/cumm [facility] MCV 103.8(H) 81.3 - 96.4 fL [facility] MCH 31.2 27.1 - 33.3 pg [facility] MCHC 30.1(L) 32.3 - 35.7 g/dL [facility] RDW CV 18.0(H) 11.1 - 14.9 % [facility] RDW SD 67.7(H) 35.7 - 48.1 fL [facility] NRBC abs 0.00 0.00 - 0.01 K/cumm [facility] Blood 08/22/2024 9:54 AM ARTIST CONSULTANT 08/22/2024 10:36 AM ARTIST CONSULTANT Kala Barbosa NP LAB BLOOD ORDERABLES Final R esult [facility] TOWNSEND [address] [place] [address] * (ABNORMAL) Comprehensive metabolic panel (08/22/2024 9:54 AM ARTIST CONSULTANT) Sodium 137 135 - 145 mmol/L Potassium, pl 3.8 3.3 - 4.9 mmol/L [facility] Chloride 96(L) 97 - 110 mmol/L [facility] CO2 25 22 - 32 mmol/L [facility] Anion gap 16(H) 2 - 15 mmol/L [facility] BUN 49(H) 6 - 25 mg/dL [facility] Creatinine 11.69(H) 0.60 - 1.10 mg/dL [facility] Glucose 107 70 - 199 mg/dL [facility] Comment: [...] Units/L [facility] Blood 08/22/2024 9:54 AM ARTIST CONSULTANT 08/22/2024 10:37 AM ARTIST CONSULTANT us Kala Barbosa NP LAB BLOOD ORDERABLES Final R esult [facility] [address] Department [place] [address] * (ABNORMAL) Urinalysis reflex to microscopic and culture Urine, clean voided (08/21/2024 6:01 PM ARTIST CONSULTANT) Color, ur Mitzi Yellow Clarity, ur Turbid(A) Clear [facility] Specific gravity, ur 1.011 1.003 - 1.030 [facility] pH, urine 8.0 [facility] Comment: Interpretive Data U rine pH is affected by diet, medications, systemic acid-base disturbances, and renal tubular function. pH may affect urinary stone formation. For example, urine pH below 6.0 may help reduce the tendency for calcium phosphate stones and pH greater than 6.0 may reduce the tendency for uric acid stone formation. Source: [facility] Current Interpretive Data was last revised on [...] to microscopic UA will be performed. [facility] Urine, clean voided 08/21/2024 6:01 PM ARTIST CONSULTANT 08/21/2024 6:06 PM ARTIST CONSULTANT Bobby Ya MD LAB MICROBIOLOGY - GENERAL ORDERABLES Final Result [facility] [address] Department [place] [address] * (ABNORMAL) Urinalysis, microscopic only (08/21/2024 6:01 PM ARTIST CONSULTANT) WBC, ur >50(A) 0 - 5 /HPF RBC, ur >50(A) 0 - 2 /HPF [facility] Epithelial cells, squamous, ur 21-50(A) 0 - 5 /HPF [facility] Culture Reflex Comment Reflex to urine culture will be performed. [facility] Urine, clean voided 08/21/2024 6:01 PM ARTIST CONSULTANT 08/21/2024 6:06 PM ARTIST CONSULTANT Bobby Ya MD LAB URINE ORDERABLES Final Result [facility] [place] [address] Department [place] [address] * Urine culture Urine, clean voided (08/21/2024 6:01 PM ARTIST CONSULTANT) Report Final Report: Less than 100,000 colonies/mL (clinically insignificant growth based on current clinical standards) Comment:Testing performed by : [facility], [address] [place]., [address] Organism (CLINICALLY INSIGNIFICANT GROWTH LAINE OTWNSEND Urine, clean voided 08/21/2024 6:01 PM ARTIST CONSULTANT 08/21/2024 8:14 PM ARTIST CONSULTANT Narrative LAINE TOWNSEND - 08/23/2024 7:20 AM ARTIST CONSULTANT Urine culture reflexed based upon urinalysis results. Testing performed by [facility] ([phone]) Bobby Ya MD LAB MICROBIOLOGY - GENERAL ORDERABLES Final Result Performing Organization Address City/[facility]/ZIP Co de Phone Number LAINE TOWNSEND [address] Department [place] [address] * CT Chest Abdomen Pelvis WO Contrast (08/21/2024 4:56 PM ARTIST CONSULTANT) Anatomical Region Laterality Modality Body N/A Computed Tomogra phy 08/21/2024 5:31 PM ARTIST CONSULTANT Impressions 08/22/2024 2:24 PM ARTIST CONSULTANT Moderate loculated left pleural effusion with left [...] lesions. Electronically signed by: Priscila Ochoa M.D. Narrative 08/22/2024 2:24 PM ARTIST CONSULTANT EXAM: CT CHEST, ABDOMEN AND PELVIS WITHOUT [...] noted without pericardial effusion..Atherosclerotic nonaneurysmal aorta with [id number] calcified plaque and mild aortic valvular calcification [...] noted without pericardial effusion..Atherosclerotic nonaneurysmal aorta with [id number] calcified plaque and mild aortic valvular calcification [...] Iron profile w/ IBC (08/21/2024 7:44 AM ARTIST CONSULTANT) Iron 164(H) 35 - 145 mcg/dl TIBC 254 250 - 400 mcg/dL [facility] Transferrin saturation 65(H) 20 - 50 % [facility] Blood 08/21/2024 7:44 AM ARTIST CONSULTANT 08/21/2024 9:19 AM ARTIST CONSULTANT Kala Barbosa NP LAB BLOOD ORDERABLES Final R esult [facility] [address] Department [place] [address] * Blood culture Blood (08/21/2024 7:44 AM ARTIST CONSULTANT) Report Final Report: No growth Comment:Testing performed by : [facility], [address] [facility], [place]., [address] Blood 08/21/2024 7:44 AM ARTIST CONSULTANT 08/21/2024 12:57 PM ARTIST CONSULTANT Narrative [facility] - 08/25/2024 4:00 PM ARTIST CONSULTANT From a different site than #1. Collection->Peripheral [...] performance characteristics have been verified by the [facility]. For questions about this culture, contact the Microbiology Laboratory at [phone]. Interpretive data was last revised on 24. Kala Barbosa [employer] LAB MICROBIOLOGY - GENERAL O RDERABLES Final Result [facility] [address] Department [place] [address] * Blood culture Blood (08/21/2024 7:44 AM ARTIST CONSULTANT) Report Final Report: No growth Comment:Testing performed by : [facility], [address] [place]., [address] Blood 08/21/2024 7:44 AM ARTIST CONSULTANT 08/21/2024 12:57 PM ARTIST CONSULTANT Narrative LAINE Haq 08/25/2024 4:00 PM ARTIST CONSULTANT Collection->Peripheral 1. Blood cultures are incubated for [...] performance characteristics have been verified by the [facility]. For questions about this culture, contact the Microbiology Laboratory at [phone]. Interpretive data was last revised on 24. Kala Barbosa NP LAB MICROBIOLOGY - GENERAL O RDERABLES Final Result Performing Organization Address [facility] Co de Phone Number [facility]INE TOWNSEND [address] [facility] [place], [place] [id number] * Folate (08/21/2024 7:44 AM ARTIST CONSULTANT) Folic acid >20.0 >=5.0 ng/mL Comment:Hemolysis present. R esults may be affected. Blood 08/21/2024 7:44 AM ARTIST CONSULTANT 08/21/2024 9:19 AM ARTIST CONSULTANT Kala Barbosa LAB BLOOD ORDERABLES Final R esult Performing Organization Address [facility] Co de Phone Number [place] [address] Department [place] [address] * (ABNORMAL) Vitamin B12 (08/21/2024 7:44 AM ARTIST CONSULTANT) Vitamin B12 1,704(H) 230 - 1,250 pg/mL Blood 08/21/2024 7:44 AM ARTIST CONSULTANT 08/21/2024 9:19 AM ARTIST CONSULTANT Result [facility] Kala Barbosa LAB BLOOD ORDERABLES Final R esult Performing Organization Address [facility] Co de Phone Number LAINE [address] Department [place] [address] * (ABNORMAL) eGFR (08/21/2024 2:52 AM ARTIST CONSULTANT) Pathologist [facility] eGFR 4(L) >=60 mL/min/1. 73 m2 [...] last reviewed 2021. Blood 08/21/2024 2:52 AM ARTIST CONSULTANT 08/21/2024 3:17 AM ARTIST CONSULTANT us Kala Barbosa NP LAB BLOOD ORDERABLES Final R esult [facility] [address] Department of Laboratories [place], [place] [id number] * (ABNORMAL) Differential, auto (08/21/2024 2:52 AM ARTIST CONSULTANT) Pathologist [facility] Neutrophil abs 9.6(H) 1.5 - 6.5 K/cumm Imm gran abs 0.2(H) 0.0 - 0.1 K/cumm [facility] Lymphocyte abs 1.0 0.8 - 3.3 K/cumm [facility] Monocyte abs 1.4(H) 0.2 - 0.8 K/cumm [facility] Eosinophil abs 0.3 0.0 - 0.5 K/cumm [facility] Basophil abs 0.1 0.0 - 0.1 K/cumm [facility] Neutrophil pct 76.2 % [facility] Comment: Interpretive [...] revised on 2017. Monocyte pct 11.4 % [facility] Comment: Interpretive Data Percent cell count reference ranges are not reported, since discordance with absolute values may lead to misinterpretation of CBC data. Current Interpretive Data was last revised on 2017. Eosinophil pct 2.1 % [facility] Comment: Interpretive Data Percent cell count reference ranges are not reported, since discordance with absolute values may lead to misinterpretation of CBC data. Current Interpretive Data was last revised on 2017. Basophil pct 0.7 % [facility] Comment: Interpretive Data Percent cell count reference ranges are not reported, since discordance with absolute values may lead to misinterpretation of CBC data. Current Interpretive Data was last revised on 2017. Blood 08/21/2024 2:52 AM ARTIST CONSULTANT 08/21/2024 3:18 AM ARTIST CONSULTANT Kala Barbosa NP LAB BLOOD ORDERABLES Final R esult [facility] [address] Department [place] [address] * (ABNORMAL) CBC with auto differential (08/21/2024 2:52 AM ARTIST CONSULTANT) WBC 12.6(H) 3.8 - 9.9 K/cumm Hgb 7.4(L) 11.9 - 15.5 g/dL [facility] Hct 24.1(L) 35.6 - 45.5 % [facility] Plt 478(H) 150 - 400 K/cumm [facility] MPV 8.3(L) 9.1 - 12.3 fL [facility] RBC 2.36(L) 3.90 - 5.20 M/cumm [facility] MCV 102.1(H) 81.3 - 96.4 fL [facility] MCH 31.4 27.1 - 33.3 pg [facility] MCHC 30.7(L) 32.3 - 35.7 g/dL [facility] RDW CV 18.6(H) 11.1 - 14.9 % [facility] RDW SD 68.8(H) 35.7 - 48.1 fL [facility] NRBC abs 0.00 0.00 - 0.01 K/cumm [facility] Blood 08/21/2024 2:52 AM ARTIST CONSULTANT 08/21/2024 3:18 AM ARTIST CONSULTANT us Kala Barbosa NP LAB BLOOD ORDERABLES Final R esult [facility] [address] Department [place] [address] * (ABNORMAL) Comprehensive metabolic panel (08/21/2024 2:52 AM ARTIST CONSULTANT) Sodium 136 135 - 145 mmol/L Potassium, pl 3.3 3.3 - 4.9 mmol/L [facility] Chloride 94(L) 97 - 110 mmol/L [facility] CO2 28 22 - 32 mmol/L [facility] Anion gap 14 2 - 15 mmol/L [facility] BUN 39(H) 6 - 25 mg/dL [facility] Creatinine 10.12(H) 0.60 - 1.10 mg/dL [facility] Glucose 100 70 - 199 mg/dL [facility] Units/L [facility] Blood 08/21/2024 2:52 AM ARTIST CONSULTANT 08/21/2024 3:17 AM ARTIST CONSULTANT us Rhiannondon Familia WOODALL LAB BLOOD ORDERABLES Final R esult [facility] [address] Department [facility] [place] [place] [address] * XR Chest 1 Vw Portable (08/21/2024 1:09 AM ARTIST CONSULTANT) Anatomical Region Laterality Modality Body, Chest N/A Computed Radiogr aphy 08/21/2024 8:04 AM ARTIST CONSULTANT Impressions 08/21/2024 8:04 AM ARTIST CONSULTANT CARDIOMEGALY WITH CONSOLIDATING OPACITY IN THE LEFT BASE AND HAZY OPACITY IN THE RIGHT BASE WITH FLUID IN THE FISSURE. A LATERAL CHEST VIEW OR CT OF THE CHEST IS SUGGESTED TO EVALUATE THE LUNG BASES. Electronically signed by: Sulaiman Xie M.D. Narrative 08/21/2024 8:04 AM ARTIST CONSULTANT EXAMINATION: XR CHEST 1 VIEW HISTORY: Elevated [...] (ABNORMAL) Potassium, whole blood (08/21/2024 12:48 AM ARTIST CONSULTANT) Potassium, bld 3.1(L) 3.3 - 4.9 mmol/L Comment: Interpretive Data This method is not able to assess for hemolysis, which may falsely increase potassium concentrations. If further testing is needed to evaluate this result, consider in-laboratory plasma potassium. Current Interpretive Data was last revised on 2022. Blood 08/21/2024 12:4 8 AM ARTIST CONSULTANT 08/21/2024 12:59 AM ARTIST CONSULTANT Susan Salcedo NP LAB BLOOD ORDERABLES Final Result [facility] [address] Department [place] [address] * (ABNORMAL) Hemoglobin and hematocrit (08/21/2024 12:48 AM ARTIST CONSULTANT) Hgb 7.2(L) 11.9 - 15.5 g/dL Hct 23.7(L) 35.6 - 45.5 % [facility] Blood 08/21/2024 12:4 8 AM ARTIST CONSULTANT 08/21/2024 1:00 AM ARTIST CONSULTANT Susan Salcedo NP LAB BLOOD ORDERABLES Final Result Performing Organization Address [facility] de Phone Number [facility] [place] [address] [facility] [place] [address] * Transfuse RBC (08/20/2024 11:45 PM ARTIST CONSULTANT) Blood Susan Salcedo NP BLOOD TRANSFUSION OR DERABLES Final Result Performing Organization Address [facility] de Phone Number [facility] [place] [address] [facility] [place] [address] * Prepare RBC: 1 Units (08/20/2024 8:06 PM ARTIST CONSULTANT) Product code [id number] Unit Number [id number] [facility] Product Blood Type BPOS [facility] Dispense Status PRESUMED TRANSFUSED [facility] Blood 08/20/2024 8:06 PM ARTIST CONSULTANT Narrative [facility] - 08/21/2024 10:15 AM ARTIST CONSULTANT Are special requirements needed? (All products are leukoreduced and CMV- safe)- >No Date required:-[id number] LRRBC # of [id number] Reasons:-Hgb <7 g/dL} Susan Salcedo NP BLOOD BANK PRODUCT O RDERABLES Final Result Performing Organization Address [facility] de Phone Number [facility] [place] [address] [facility] [place] [address] * (ABNORMAL) aPTT (08/20/2024 8:02 PM ARTIST CONSULTANT) aPTT 53(H) 28 - 38 sec Comment: Interpretive Data Heparin therapeutic range: 66.0 - 100.0 seconds. Range based on correlation with therapeutic heparin activity range of 0.3 - 0.7 Units/mL. Current interpretive data was last revised on 2023. Blood 08/20/2024 8:02 PM ARTIST CONSULTANT 08/20/2024 8:26 PM ARTIST CONSULTANT Dominga Graces[place]ail [place] LAB BLOOD ORDERABLES Final Resu lt [facility] [address] [address] [facility] [place] [address] * (ABNORMAL) Protime-INR (08/20/2024 8:02 PM ARTIST CONSULTANT) PT 22.7(H) 9.7 - 13.0 sec INR 2.07(H) 0.90 - 1.20 [facility] Comment: Interpretive data Oral anticoagulant therapeutic ranges: Venous thromboembolism prophylaxis or treatment: 2.0-3.0 CARDIOLOGY Standard range: 2.0-3.0 High-intensity range: 2.5-3.5 Refer to indication-specific guidelines for appropriate target ranges for prosthetic heart valve replacement. Current interpretive data was last revised on 2019. Blood 08/20/2024 8:02 PM ARTIST CONSULTANT 08/20/2024 8:26 PM ARTIST CONSULTANT Dominga Grace[place] LAB BLOOD ORDERABLES Final Resu lt Performing Organization Address [facility] Co de Phone Number [facility] [address] [address] [facility] [place] [address] * Type and screen (08/20/2024 8:02 PM ARTIST CONSULTANT) Arianna, indirect Negative ABO Rh B Positive [facility] Blood 08/20/2024 8:02 PM ARTIST CONSULTANT 08/20/2024 8:26 PM ARTIST CONSULTANT Narrative [facility] - 08/20/2024 9:05 PM ARTIST CONSULTANT Has the patient had Daratumumab or Isatuximab in the past 6 months?->Unknown Dominga SanjayBoxCat LAB BLOOD BANK TEST ORDERABLES Final Result Performing Organization Address City/[facility]/ZIP Co de Phone Number [place] [address] [address] [facility] [place], [place] [address] * (ABNORMAL) eGFR (08/20/2024 1:06 PM ARTIST CONSULTANT) Pathologist [facility] eGFR 4(L) >=60 mL/min/1. 73 m2 [...] last reviewed 2021. Blood 08/20/2024 1:06 PM ARTIST CONSULTANT 08/20/2024 1:06 PM ARTIST CONSULTANT Alcides KNAPP LAB BLOOD ORDERABLES Final Result [place] [address] Department [place] [address] * (ABNORMAL) Differential, auto (08/20/2024 1:06 PM ARTIST CONSULTANT) Pathologist [facility] Neutrophil abs 9.9(H) 1.5 - 6.5 K/cumm Imm gran abs 0.2(H) 0.0 - 0.1 K/cumm [facility] Lymphocyte abs 0.8 0.8 - 3.3 K/cumm [facility] Monocyte abs 1.1(H) 0.2 - 0.8 K/cumm [facility] Eosinophil abs 0.3 0.0 - 0.5 K/cumm [facility] Basophil abs 0.1 0.0 - 0.1 K/cumm [facility] Neutrophil pct 80.3 % [facility] Comment: Interpretive [...] revised on 2017. Monocyte pct 9.1 % [facility] Comment: Interpretive Data Percent cell count reference ranges are not reported, since discordance with absolute values may lead to misinterpretation of CBC data. Current Interpretive Data was last revised on 2017. Eosinophil pct 2.1 % [facility] Comment: Interpretive Data Percent cell count reference ranges are not reported, since discordance with absolute values may lead to misinterpretation of CBC data. Current Interpretive Data was last revised on 2017. Basophil pct 0.7 % [facility] Comment: Interpretive Data Percent cell count reference ranges are not reported, since discordance with absolute values may lead to misinterpretation of CBC data. Current Interpretive Data was last revised on 2017. Blood 08/20/2024 1:06 PM ARTIST CONSULTANT 08/20/2024 1:06 PM ARTIST CONSULTANT Alcides KNAPP LAB BLOOD ORDERABLES Final Result [facility] [address] Department [place] [address] * (ABNORMAL) CBC with auto differential (08/20/2024 1:06 PM ARTIST CONSULTANT) WBC 12.3(H) 3.8 - 9.9 K/cumm Hgb 6.3(C) 11.9 - 15.5 g/dL [facility] Comment:Critical result call ed to and read back by MARCIAL CASTLE on 08 20 2024 at 1344 to [place]. Hct 21.7(L) 35.6 - 45.5 % [facility] Plt 588(H) 150 - 400 K/cumm [facility] MPV 8.7(L) 9.1 - 12.3 fL [facility] RBC 2.05(L) 3.90 - 5.20 M/cumm [facility] MCV 105.9(H) 81.3 - 96.4 fL [facility] MCH 30.7 27.1 - 33.3 pg [facility] MCHC 29.0(L) 32.3 - 35.7 g/dL [facility] RDW CV 18.8(H) 11.1 - 14.9 % [facility] RDW SD 72.9(H) 35.7 - 48.1 fL [facility] NRBC abs 0.00 0.00 - 0.01 K/cumm [facility] Blood 08/20/2024 1:06 PM ARTIST CONSULTANT 08/20/2024 1:06 PM ARTIST CONSULTANT Alcides KNAPP LAB BLOOD ORDERABLES Final Result Performing Organization Address [facility] Co de Phone Number [facility] [address] [place] [address] * Magnesium (08/20/2024 1:06 PM ARTIST CONSULTANT) [facility] Magnesium 1.9 1.4 - 2.5 mg/dL Blood 08/20/2024 1:06 PM ARTIST CONSULTANT 08/20/2024 1:06 PM ARTIST CONSULTANT Alcides KNAPP LAB BLOOD ORDERABLES Final Result Performing Organization Address [facility]/ZIP Co de Phone Number [facility] [address] [address] [place] [address] * (ABNORMAL) Comprehensive metabolic panel (08/20/2024 1:06 PM ARTIST CONSULTANT) Sodium 134(L) 135 - 145 mmol/L Potassium, pl 3.0(L) 3.3 - 4.9 mmol/L [facility] Chloride 90(L) 97 - 110 mmol/L [facility] CO2 25 22 - 32 mmol/L [facility] Anion gap 19(H) 2 - 15 mmol/L [facility] BUN 35(H) 6 - 25 mg/dL [facility] Creatinine 9.44(H) 0.60 - 1.10 mg/dL [facility] Glucose 113 70 - 199 mg/dL [facility] Comment: [...] Units/L [facility] Blood 08/20/2024 1:06 PM ARTIST CONSULTANT 08/20/2024 1:06 PM ARTIST CONSULTANT Alcides KNAPP LAB BLOOD ORDERABLES Final Result [facility] [address] Department [place] [address] * ECG 12 lead (08/20/2024 12:45 PM ARTIST CONSULTANT) 08/20/2024 12:4 5 PM ARTIST CONSULTANT Narrative [facility] - 08/20/2024 7:49 PM ARTIST CONSULTANT Vent Rate: 117 bpm RR Interval: 511 msec MS Interval: 0 msec QRS Duration: 116 msec QT Interval: 361 msec QTC Interval: 430 msec P-R-T [place]: 0 - 8 - 210 degrees IMPRESSION: ATRIAL FIBRILLATION WITH RAPID VENTRICULAR RESPONSE MODERATE INTRAVENTRICULAR CONDUCTION DELAY [110+ ms QRS DURATION] ST DEVIATION AND MODERATE T-WAVE ABNORMALITY, CONSIDER LATERAL ISCHEMIA [-0.1+ mV T-WAVE IN I/aVL/V5/V6] ABNORMAL ECG Electronically Signed By: Dr. Noelle Joiner [facility] us Alcides KNAPP ECG ORDERABLES Final Result [facility] * (ABNORMAL) Differential, auto (08/02/2024 5:45 AM ARTIST CONSULTANT) Neutrophil abs 8.3(H) 1.5 - 6.5 K/cumm Imm gran abs 0.7(H) 0.0 - 0.1 K/cumm [facility] Lymphocyte abs 1.1 0.8 - 3.3 K/cumm [facility] Monocyte abs 1.9(H) 0.2 - 0.8 K/cumm [facility] Eosinophil abs 0.4 0.0 - 0.5 K/cumm [facility] Basophil abs 0.1 0.0 - 0.1 K/cumm [facility] Neutrophil pct 67.1 % [facility] Comment: Interpretive [...] revised on 2017. Eosinophil pct 2.8 % [facility] Comment: Interpretive Data Percent cell count reference ranges are not reported, since discordance with absolute values may lead to misinterpretation of CBC data. Current Interpretive Data was last revised on 2017. Basophil pct 0.7 % [facility] Comment: Interpretive Data Percent cell count reference ranges are not reported, since discordance with absolute values may lead to misinterpretation of CBC data. Current Interpretive Data was last revised on 2017. Blood 08/02/2024 5:45 AM ARTIST CONSULTANT 08/02/2024 6:22 AM ARTIST CONSULTANT Padmini Mason NP LAB BLOOD ORDERABLES Fi nal Result [facility] [address] Department [place] [address] * (ABNORMAL) CBC with auto differential (08/02/2024 5:45 AM ARTIST CONSULTANT) WBC 12.4(H) 3.8 - 9.9 K/cumm Hgb 7.5(L) 11.9 - 15.5 g/dL [facility] Hct 28.7(L) 35.6 - 45.5 % [facility] Plt 402(H) 150 - 400 K/cumm [facility] MPV 11.2 9.1 - 12.3 fL [facility] RBC 2.53(L) 3.90 - 5.20 M/cumm [facility] MCV 113.4(H) 81.3 - 96.4 fL [facility] MCH 29.6 27.1 - 33.3 pg [facility] MCHC 26.1(L) 32.3 - 35.7 g/dL [facility] RDW CV 20.7(H) 11.1 - 14.9 % [facility] RDW SD 85.8(H) 35.7 - 48.1 fL [facility] NRBC abs 0.08(H) 0.00 - 0.01 K/cumm [facility] Blood 08/02/2024 5:45 AM ARTIST CONSULTANT 08/02/2024 6:22 AM ARTIST CONSULTANT Kongkeo Thiky Marlon [employer] LAB BLOOD ORDERABLES Fi nal Result Performing Organization Address City/[facility]/ZIP Co de Phone Number [facility] [address] Department [place] [address] * (ABNORMAL) eGFR (08/01/2024 6:03 AM ARTIST CONSULTANT) eGFR 4(L) >=60 mL/min/1. 73 m2 Comment: [...] last reviewed 2021. Blood 08/01/2024 6:03 AM ARTIST CONSULTANT 08/01/2024 6:37 AM ARTIST CONSULTANT Tanisha Winter [employer] LAB BLOOD ORDERABLES Final Resul t Performing Organization Address City/[facility]/ZIP Co de Phone Number [place] [address] Department [place] [address] * (ABNORMAL) Basic metabolic panel (08/01/2024 6:03 AM ARTIST CONSULTANT) Sodium 136 135 - 145 mmol/L Potassium, pl 3.9 3.3 - 4.9 mmol/L [facility] Chloride 95(L) 97 - 110 mmol/L [facility] CO2 22 22 - 32 mmol/L [facility] Anion gap 19(H) 2 - 15 mmol/L [facility] BUN 66(H) 6 - 25 mg/dL [facility] Creatinine 9.73(H) 0.60 - 1.10 mg/dL [facility] Glucose 90 70 - 199 mg/dL [facility] Comment: Interpretive Data Fasting glucose >/= 126 [...] 10.3 mg/dL [facility] Blood 08/01/2024 6:03 AM ARTIST CONSULTANT 08/01/2024 6:37 AM ARTIST CONSULTANT Tanisha Winter NP LAB BLOOD ORDERABLES Final Resul t [facility] [address] Department [place] [address] * (ABNORMAL) eGFR (07/31/2024 8:40 AM ARTIST CONSULTANT) eGFR 4(L) >=60 mL/min/1. 73 m2 Comment: [...] last reviewed 2021. Blood 07/31/2024 8:40 AM ARTIST CONSULTANT 07/31/2024 9:42 AM ARTIST CONSULTANT Tanisha Winter [employer] LAB BLOOD ORDERABLES Final Resul t [facility] [address] [address] Department [place] [address] * (ABNORMAL) Basic metabolic panel (07/31/2024 8:40 AM ARTIST CONSULTANT) Pathologist [facility] Sodium 139 135 - 145 mmol/L Potassium, pl 3.3 3.3 - 4.9 mmol/L [facility] Chloride 95(L) 97 - 110 mmol/L [facility] CO2 22 22 - 32 mmol/L [facility] Anion gap 22(H) 2 - 15 mmol/L [facility] BUN 62(H) 6 - 25 mg/dL [facility] Creatinine 9.53(H) 0.60 - 1.10 mg/dL [facility] Glucose 85 70 - 199 mg/dL [facility] Comment: [...] 2022. Calcium 9.4 8.5 - 10.3 mg/dL [facility] Blood 07/31/2024 8:40 AM ARTIST CONSULTANT 07/31/2024 9:42 AM ARTIST CONSULTANT Tanisha Winter NP LAB BLOOD ORDERABLES Final Resul t [facility] [address] Department [place] [address] * (ABNORMAL) eGFR (07/28/2024 4:32 AM ARTIST CONSULTANT) eGFR 5(L) >=60 mL/min/1. 73 m2 Comment: [...] last reviewed 2021. Blood 07/28/2024 4:32 AM ARTIST CONSULTANT 07/28/2024 4:57 AM ARTIST CONSULTANT us Nga Dumont MD LAB BLOOD ORDERABL ES Final Result [facility] [address] Department [place] [address] * (ABNORMAL) Differential, auto (07/28/2024 4:32 AM ARTIST CONSULTANT) Pathologist [facility] Neutrophil abs 7.5(H) 1.5 - 6.5 K/cumm Imm gran abs 0.7(H) 0.0 - 0.1 K/cumm [facility] Lymphocyte abs 1.0 0.8 - 3.3 K/cumm [facility] Monocyte abs 1.5(H) 0.2 - 0.8 K/cumm [facility] Eosinophil abs 0.2 0.0 - 0.5 K/cumm [facility] Basophil abs 0.1 0.0 - 0.1 K/cumm [facility] Neutrophil pct 68.9 % [facility] Comment: Interpretive Data Percent cell count reference ranges are not reported, since discordance with absolute values may lead to misinterpretation of CBC data. Current Interpretive Data was last revised on 2017. Imm gran pct 5.9 % [facility] Comment: Interpretive Data Percent cell count reference ranges are not reported, since discordance with absolute values may lead to misinterpretation of CBC data. Current Interpretive Data was last revised on 2017. Lymphocyte pct 9.0 % [facility] Comment: Interpretive Data Percent cell count reference ranges are not reported, since discordance with absolute values may lead to misinterpretation of CBC data. Current Interpretive Data was last revised on 2017. Monocyte pct 13.5 % [facility] Comment: Interpretive Data Percent cell count reference ranges are not reported, since discordance with absolute values may lead to misinterpretation of CBC data. Current Interpretive Data was last revised on 2017. Eosinophil pct 1.6 % [facility] Comment: Interpretive Data Percent cell [...] revised on 2017. Blood 07/28/2024 4:32 AM ARTIST CONSULTANT 07/28/2024 4:57 AM ARTIST CONSULTANT Nga Dumont MD LAB BLOOD ORDERABL ES Final Result [facility] [address] Department [place] [address] * (ABNORMAL) CBC with auto differential (07/28/2024 4:32 AM ARTIST CONSULTANT) WBC 11.0(H) 3.8 - 9.9 K/cumm Hgb 9.5(L) 11.9 - 15.5 g/dL [facility] Hct 32.8(L) 35.6 - 45.5 % [facility] Plt 353 150 - 400 K/cumm [facility] MPV 11.6 9.1 - 12.3 fL [facility] [...] K/cumm [facility] Blood 07/28/2024 4:32 AM ARTIST CONSULTANT 07/28/2024 4:57 AM ARTIST CONSULTANT us Nga Dumont MD LAB BLOOD ORDERABL ES Final Result Performing Organization Address [facility]/ZIP Co de Phone Number [facility] [address] [place] [address] * Phosphorus (07/28/2024 4:32 AM ARTIST CONSULTANT) Phosphorus, pl 4.4 2.3 - 4.5 mg/dL Blood 07/28/2024 4:32 AM ARTIST CONSULTANT 07/28/2024 4:57 AM ARTIST CONSULTANT us Waqas Garcia MD LAB BLOOD ORDERABLES Final Resu lt Performing Organization Address [facility] Co de Phone Number [facility] [address] Department [place] [address] * (ABNORMAL) Comprehensive metabolic panel (07/28/2024 4:32 AM ARTIST CONSULTANT) Sodium 140 135 - 145 mmol/L Potassium, [...] Units/L [facility] Blood 07/28/2024 4:32 AM ARTIST CONSULTANT 07/28/2024 4:57 AM ARTIST CONSULTANT us Nga Dumont MD LAB BLOOD ORDERABL ES Final Result [facility] [address] Department [place] [address] * XR Kub (07/27/2024 10:38 AM ARTIST CONSULTANT) Anatomical Region Laterality Modality Body, Abdomen N/A Computed Radiogr aphy 07/27/2024 10:4 8 AM ARTIST CONSULTANT Impressions 07/27/2024 10:48 AM ARTIST CONSULTANT Findings/impression: Limited examination given technique. Nonobstructive bowel gas pattern. Right double-J ureteral stent appears appropriately positioned. Percutaneous catheter terminating in the pelvis likely represents peritoneal dialysis catheter. No acute osseous abnormality. Lung bases are unremarkable. Electronically signed by: Peter Porter II, D.O. Narrative 07/27/2024 10:48 AM ARTIST CONSULTANT EXAMINATION: XR KUB DATE: 07/27/2024 10:25 AM [...] Result * (ABNORMAL) eGFR (07/26/2024 11:38 AM ARTIST CONSULTANT) eGFR 4(L) >=60 mL/min/1. 73 m2 Comment: [...] reviewed 2021. Blood 07/26/2024 11:3 8 AM ARTIST CONSULTANT 07/26/2024 12:44 PM ARTIST CONSULTANT us Nga Dumont MD LAB BLOOD ORDERABL ES Final Result [facility] [address] Department [place] [address] * (ABNORMAL) Differential, auto (07/26/2024 11:38 AM ARTIST CONSULTANT) Neutrophil abs 11.4(H) 1.5 - 6.5 K/cumm Imm gran abs 1.1(H) 0.0 - 0.1 K/cumm [facility] Lymphocyte abs 0.7(L) 0.8 - 3.3 K/cumm [facility] Monocyte abs 1.6(H) 0.2 - 0.8 K/cumm [facility] Eosinophil abs 0.2 0.0 - 0.5 K/cumm [facility] Basophil abs 0.1 0.0 - 0.1 K/cumm [facility] Neutrophil pct 75.7 % [facility] Comment: Interpretive Data Percent cell count reference ranges are not reported, since discordance with absolute values may lead to misinterpretation of CBC data. Current Interpretive Data was last revised on 2017. Imm gran pct 6.9 % [facility] Comment: Interpretive Data Percent cell count reference ranges are not reported, since discordance with absolute values may lead to misinterpretation of CBC data. Current Interpretive Data was last revised on 2017. Lymphocyte pct 4.9 % [facility] Comment: Interpretive Data Percent cell count reference ranges are not reported, since discordance with absolute values may lead to misinterpretation of CBC data. Current Interpretive Data was last revised on 2017. Monocyte pct 10.7 % [facility] Comment: Interpretive Data Percent cell count reference ranges are not reported, since discordance with absolute values may lead to misinterpretation of CBC data. Current Interpretive Data was last revised on 2017. Eosinophil pct 1.1 % [facility] Comment: Interpretive Data Percent cell count reference ranges are not reported, since discordance with absolute values may lead to misinterpretation of CBC data. Current Interpretive Data was last revised on 2017. Basophil pct 0.7 % [facility] Comment: Interpretive Data Percent cell count reference ranges are not reported, since discordance with absolute values may lead to misinterpretation of CBC data. Current Interpretive Data was last revised on 2017. Blood 07/26/2024 11:3 8 AM ARTIST CONSULTANT 07/26/2024 12:44 PM ARTIST CONSULTANT Nga Dumont MD LAB BLOOD ORDERABL ES Final Result [facility] [address] [place] [address] * (ABNORMAL) CBC with auto differential (07/26/2024 11:38 AM ARTIST CONSULTANT) WBC 15.1(H) 3.8 - 9.9 K/cumm Hgb [...] [facility] Blood 07/26/2024 11:3 8 AM ARTIST CONSULTANT 07/26/2024 12:44 PM ARTIST CONSULTANT us Nga Dumont MD LAB BLOOD ORDERABL ES Final Result Performing Organization Address City/[facility]/ZIP Co de Phone Number [facility] [place] [address] [place] [address] * (ABNORMAL) Comprehensive metabolic panel (07/26/2024 11:38 AM ARTIST CONSULTANT) Sodium 138 135 - 145 mmol/L Potassium, [...] [facility] Blood 07/26/2024 11:3 8 AM ARTIST CONSULTANT 07/26/2024 12:44 PM ARTIST CONSULTANT us Nga Dumont MD LAB BLOOD ORDERABL ES Final Result [facility] [address] Department [place] [address] * (ABNORMAL) CBC with auto differential (07/25/2024 8:10 AM ARTIST CONSULTANT) Pathologist [facility] WBC 18.6(H) 3.8 - 9.9 K/cumm Hgb 9.8(L) 11.9 - 15.5 g/dL [facility] Hct 32.5(L) 35.6 - 45.5 % [facility] Plt 276 150 - 400 K/cumm [facility] MPV 12.7(H) 9.1 - 12.3 fL [facility] RBC 3.37(L) 3.90 - 5.20 M/cumm [facility] MCV 96.4 81.3 - 96.4 fL [facility] MCH 29.1 27.1 - 33.3 pg [facility] MCHC 30.2(L) 32.3 - 35.7 g/dL [facility] RDW CV 25.7(H) 11.1 - 14.9 % [facility] RDW SD 85.3(H) 35.7 - 48.1 fL [facility] NRBC abs 0.23(H) 0.00 - 0.01 K/cumm [facility] Blood 07/25/2024 8:10 AM ARTIST CONSULTANT 07/25/2024 8:32 AM ARTIST CONSULTANT Sudheer Escobar MD LAB BLOOD ORDERABLES Edited R esult - Final [facility] [address] Department [place] [address] * (ABNORMAL) Manual Differential (07/25/2024 8:10 AM ARTIST CONSULTANT) Pathologist [facility] Differential Manual Cells Counted 100 [facility] Neutrophil abs 16.6(H) 1.5 - 6.5 K/cumm [facility] Lymphocyte abs 0.6(L) 0.8 - 3.3 K/cumm [facility] Monocyte abs 1.5(H) 0.2 - 0.8 K/cumm [facility] Neutrophil pct 89.0 % [facility] Comment: Interpretive Data Percent cell count reference ranges are not reported, since discordance with absolute values may lead to misinterpretation of CBC data. Current Interpretive Data was last revised on 2017. Lymphocyte pct 3.0 % [facility] Comment: Interpretive Data Percent cell count reference ranges are not reported, since discordance with absolute values may lead to misinterpretation of CBC data. Current Interpretive Data was last revised on 2017. Monocyte pct 8.0 % [facility] Comment: Interpretive Data Percent cell count reference ranges are not reported, since discordance with absolute values may lead to misinterpretation of CBC data. Current Interpretive Data was last revised on 2017. RBC morphology Consistent with RBC Indicies [facility] Platelet estimate #[id number]#CAC [facility] Blood 07/25/2024 8:10 AM ARTIST CONSULTANT 07/25/2024 8:32 AM ARTIST CONSULTANT Sudheer Escobar MD LAB BLOOD ORDERABLES Final Re sult Performing Organization Address [facility] County/ZIP Co de Phone Number [facility] [address] [place] [address] * Type and screen (07/25/2024 8:10 AM ARTIST CONSULTANT) Pathologist [facility] ABO Rh B Positive Arianna, indirect Negative [facility] Blood 07/25/2024 8:1 0 AM ARTIST CONSULTANT 07/25/2024 8:36 AM ARTIST CONSULTANT Narrative [facility] - 07/25/2024 9:19 AM ARTIST CONSULTANT Has the patient had Daratumumab or Isatuximab in the past 6 months?->Unknown Marilyn Martinez NP LAB BLOOD BANK TANYA T ORDERABLES Final Result Performing Organization Address [facility]/ZIP Co de Phone Number [facility] [address] [address] Department [place] [address] * (ABNORMAL) eGFR (07/24/2024 1:46 AM ARTIST CONSULTANT) Pathologist [facility] eGFR 4(L) >=60 mL/min/1. 73 m2 [...] last reviewed 2021. Blood 07/24/2024 1:46 AM ARTIST CONSULTANT 07/24/2024 2:13 AM ARTIST CONSULTANT Marilyn Martinez NP LAB BLOOD ORDERABL ES Final Result [facility] [address] Department [place] [address] * (ABNORMAL) CBC without differential (07/24/2024 1:46 AM ARTIST CONSULTANT) WBC 18.7(H) 3.8 - 9.9 K/cumm Hgb 9.5(L) 11.9 - 15.5 g/dL [facility] Hct 30.0(L) 35.6 - 45.5 % [facility] Plt 234 150 - 400 K/cumm [facility] MPV 12.1 9.1 - 12.3 fL [facility] RBC 3.24(L) 3.90 - 5.20 M/cumm [facility] MCV 92.6 81.3 - 96.4 fL [facility] CH MCH 29.3 27.1 - 33.3 pg [facility] MCHC 31.7(L) 32.3 - 35.7 g/dL [facility] CH RDW CV 23.4(H) 11.1 - 14.9 % [facility] CH RDW SD 74.1(H) 35.7 - 48.1 fL [facility] CH NRBC abs 0.54(H) 0.00 - 0.01 K/cumm [facility] CH Blood 07/24/2024 1:46 AM ARTIST CONSULTANT 07/24/2024 2:09 AM ARTIST CONSULTANT Marilyn Lyric Martinez NP LAB BLOOD ORDERABL ES Final Result Performing Organization Address [facility] Co de Phone Number [facility] [place] [address] [address] [facility] [place] [address] * Phosphorus (07/24/2024 1:46 AM ARTIST CONSULTANT) Phosphorus, pl 3.4 2.3 - 4.5 mg/dL Blood 07/24/2024 1:46 AM ARTIST CONSULTANT 07/24/2024 2:13 AM ARTIST CONSULTANT Marilyn Martinez NP LAB BLOOD ORDERABL ES Final Result Performing Organization Address [facility] de Phone Number [place] [address] [address] [facility] [place] [address] * Magnesium (07/24/2024 1:46 AM ARTIST CONSULTANT) Magnesium 2.5 1.4 - 2.5 mg/dL Blood 07/24/2024 1:46 AM ARTIST CONSULTANT 07/24/2024 2:13 AM ARTIST CONSULTANT Marilyngail Martinez NP LAB BLOOD ORDERABL ES Final Result Performing Organization Address [facility] de Phone Number [facility] [place] [address] [address] [facility] [place] [address] * (ABNORMAL) Basic metabolic panel (07/24/2024 1:46 AM ARTIST CONSULTANT) Sodium 135 135 - 145 mmol/L Potassium, pl 3.5 3.3 - 4.9 mmol/L [facility] Chloride 91(L) 97 - 110 mmol/L [facility] CO2 21(L) 22 - 32 mmol/L [facility] Anion gap 23(H) 2 - 15 mmol/L [facility] BUN 53(H) 6 - 25 mg/dL [facility] Creatinine 9.10(H) 0.60 - 1.10 mg/dL [facility] Glucose 150 70 - 199 mg/dL [facility] 2022. Calcium 9.4 8.5 - 10.3 mg/dL [facility] Blood 07/24/2024 1:46 AM ARTIST CONSULTANT 07/24/2024 2:13 AM ARTIST CONSULTANT Marilyn Martinez NP LAB BLOOD ORDERABL ES Final Result [facility] [address] Department [place] [address] * (ABNORMAL) eGFR (07/23/2024 2:02 AM ARTIST CONSULTANT) eGFR 5(L) >=60 mL/min/1. 73 m2 Comment: [...] last reviewed 2021. Blood 07/23/2024 2:02 AM ARTIST CONSULTANT 07/23/2024 2:16 AM ARTIST CONSULTANT Tanika KNAPP LAB BLOOD ORDERABLES F inal Result [facility] [place] [address] [address] Department [place] [address] * (ABNORMAL) Protime-INR (07/23/2024 2:02 AM ARTIST CONSULTANT) PT 19.3(H) 9.7 - 13.0 sec INR 1.77(H) 0.90 - 1.20 [facility] Comment: Interpretive data Oral anticoagulant therapeutic ranges: Venous thromboembolism prophylaxis or treatment: 2.0-3.0 CARDIOLOGY Standard range: 2.0-3.0 High-intensity range: 2.5-3.5 Refer to indication-specific guidelines for appropriate target ranges for prosthetic heart valve replacement. Current interpretive data was last revised on 2019. Blood 07/23/2024 2:02 AM ARTIST CONSULTANT 07/23/2024 2:14 AM ARTIST CONSULTANT Marilyn Martinez NP LAB BLOOD ORDERABL ES Final Result Performing Organization Address City/[facility]/ZIP Co de Phone Number [facility] [place] [address] [address] Department [place] [address] * (ABNORMAL) CBC without differential (07/23/2024 2:02 AM ARTIST CONSULTANT) WBC 18.3(H) 3.8 - 9.9 K/cumm Hgb 9.2(L) 11.9 - 15.5 g/dL [facility] Hct 26.7(L) 35.6 - 45.5 % [facility] Plt 236 150 - 400 K/cumm [facility] MPV 12.6(H) 9.1 - 12.3 fL [facility] RBC 3.09(L) 3.90 - 5.20 M/cumm [facility] CH MCV 86.4 81.3 - 96.4 fL [facility] CH MCH 29.8 27.1 - 33.3 pg [facility] CH MCHC 34.5 32.3 - 35.7 g/dL [facility] CH RDW CV 19.0(H) 11.1 - 14.9 % [facility] CH RDW SD 54.2(H) 35.7 - 48.1 fL [facility] CH NRBC abs 0.39(H) 0.00 - 0.01 K/cumm [facility] CH Blood 07/23/2024 2:02 AM ARTIST CONSULTANT 07/23/2024 2:14 AM ARTIST CONSULTANT Marilyn Martinez NP LAB BLOOD ORDERABL ES Final Result Performing Organization Address [facility] de Phone Number [facility] [address] [address] [facility] [place] [address] * Phosphorus (07/23/2024 2:02 AM ARTIST CONSULTANT) Phosphorus, pl 3.0 2.3 - 4.5 mg/dL Blood 07/23/2024 2:02 AM ARTIST CONSULTANT 07/23/2024 2:16 AM ARTIST CONSULTANT Marilyn Martinez NP LAB BLOOD ORDERABL ES Final Result Performing Organization Address [facility] de Phone Number [facility] [address] [address] [facility] [place] [address] * Magnesium (07/23/2024 2:02 AM ARTIST CONSULTANT) Magnesium 2.4 1.4 - 2.5 mg/dL Blood 07/23/2024 2:02 AM ARTIST CONSULTANT 07/23/2024 2:16 AM ARTIST CONSULTANT Marilyn Martinez NP LAB BLOOD ORDERABL ES Final Result Performing Organization Address [facility] Co de Phone Number [facility] [address] [address] [facility] [place] [address] * (ABNORMAL) Basic metabolic panel (07/23/2024 2:02 AM ARTIST CONSULTANT) Sodium 135 135 - 145 mmol/L Potassium, [...] 2022. Calcium 9.1 8.5 - 10.3 mg/dL [facility] Blood 07/23/2024 2:02 AM ARTIST CONSULTANT 07/23/2024 2:16 AM ARTIST CONSULTANT us Marilyn Martinez NP LAB BLOOD ORDERABL ES Final Result [facility] [address] [address] Department [place] [address] * Critical Care (07/22/2024 8:22 AM ARTIST CONSULTANT) Narrative OfomaBlake MD - 07/22/2024 8:22 AM ARTIST CONSULTANT Marilyn Martinez NP 07/22/2024 4:47 PM Critical [...] plan with the patient's team and other medical/customs consultant staff. This time was in addition [...] W DOPPLER/CF W CONTRAST (07/22/2024 7:00 AM ARTIST CONSULTANT) Anatomical Region Laterality Modality Ultrasound 07/22/2024 6:44 AM ARTIST CONSULTANT Narrative 07/22/2024 8:34 [place] [address] Echocardiogram Report Patient Name: CHATO NOBLE L : 1960 Study Date: 07/22/2024 6:44:33 AM Gender: F Tech: Location: [address] Provider: BLAIR NOE Height(Cm): 152 BSA: 2.02 [...] By: Jennifer Carmichael MD 07/22/2024 8:33:01 AM ARTIST CONSULTANT Procedure Note Rubin Carmichael MD - 07/22/2024 [place] [address] Echocardiogram Report Patient Name: CHATO NOBLE L : 1960 Study Date: 07/22/2024 6:44:33 AM Gender: F Tech: Location: [id number] Provider: BLAIR NOE Height(Cm): 152 BSA: 2.02 [...] By: Jennifer Carmichael MD 07/22/2024 8:33:01 AM ARTIST CONSULTANT Blair Noe APRN CV ECHO PROCEDURES Final Result * (ABNORMAL) eGFR (07/22/2024 5:41 AM ARTIST CONSULTANT) eGFR 5(L) >=60 mL/min/1. 73 m2 Comment: [...] last reviewed 2021. Blood 07/22/2024 5:41 AM ARTIST CONSULTANT 07/22/2024 5:44 AM ARTIST CONSULTANT Tanika KNAPP LAB BLOOD ORDERABLES F inal Result Performing Organization Address City/[facility]/ZIP Co de Phone Number [facility] [place] [address] [address] Department [place] [address] * (ABNORMAL) CBC without differential (07/22/2024 5:41 AM ARTIST CONSULTANT) WBC 19.5(H) 3.8 - 9.9 K/cumm Hgb 8.9(L) 11.9 - 15.5 g/dL [facility] CH Hct 25.8(L) 35.6 - 45.5 % [facility] CH Plt 241 150 - 400 K/cumm [facility] CH MPV 12.2 9.1 - 12.3 fL [facility] CH RBC 3.03(L) 3.90 - 5.20 M/cumm [facility] CH MCV 85.1 81.3 - 96.4 fL [facility] CH MCH 29.4 27.1 - 33.3 pg [facility] CH MCHC 34.5 32.3 - 35.7 g/dL [facility] CH RDW CV 16.3(H) 11.1 - 14.9 % [facility] CH RDW SD 47.0 35.7 - 48.1 fL [facility] CH NRBC abs 0.24(H) 0.00 - 0.01 K/cumm [facility] CH Blood 07/22/2024 5:41 AM ARTIST CONSULTANT 07/22/2024 5:44 AM ARTIST CONSULTANT Blair Noe APRN LAB BLOOD ORDERABL ES Final Result Performing Organization Address City/[facility]/ZIP Co de Phone Number [facility] [place] [address] [address] [place] [address] * Phosphorus (07/22/2024 5:41 AM ARTIST CONSULTANT) Phosphorus, pl 2.9 2.3 - 4.5 mg/dL Blood 07/22/2024 5:41 AM ARTIST CONSULTANT 07/22/2024 5:44 AM ARTIST CONSULTANT Marilyn Lyric Martinez NP LAB BLOOD ORDERABL ES Final Result Performing Organization Address [facility] Co de Phone Number [facility] [place] [address] [address] [facility] [place] [address] * Magnesium (07/22/2024 5:41 AM ARTIST CONSULTANT) Pathologist [facility] Magnesium 2.5 1.4 - 2.5 mg/dL Blood 07/22/2024 5:41 AM ARTIST CONSULTANT 07/22/2024 5:44 AM ARTIST CONSULTANT Marilyn Martinez LAB BLOOD ORDERABL ES Final Result Performing Organization Address [facility] de Phone Number [place] [address] [address] [facility] [place] [address] * (ABNORMAL) Basic metabolic panel (07/22/2024 5:41 AM ARTIST CONSULTANT) Pathologist [facility] Sodium 132(L) 135 - 145 mmol/L Potassium, pl 4.0 3.3 - 4.9 mmol/L [facility] Chloride 91(L) 97 - 110 mmol/L [facility] CO2 18(L) 22 - 32 mmol/L [facility] Anion gap 23(H) 2 - 15 mmol/L [facility] BUN 50(H) 6 - 25 mg/dL [facility] Creatinine 8.41(H) 0.60 - 1.10 mg/dL [facility] Glucose 139 70 - 199 mg/dL [facility] Calcium 9.2 8.5 - 10.3 mg/dL [facility] Blood 07/22/2024 5:41 AM ARTIST CONSULTANT 07/22/2024 5:44 AM ARTIST CONSULTANT Marilyn Martinez NP LAB BLOOD ORDERABL ES Final Result Performing Organization Address [facility] Co de Phone Number [facility]INE [address] [address] [place] [address] * Cell Differential, Body Fluid (07/22/2024 3:17 AM ARTIST CONSULTANT) Total cells diffed 100 % Comment: Interpretive [...] % [facility] Fluid 07/22/2024 3:17 AM ARTIST CONSULTANT 07/22/2024 3:17 AM ARTIST CONSULTANT Waqas Garcia MD LAB BODY FLUIDS AND STOOLS ORDE RABKAVEH Final Result Performing Organization Address [facility] de Phone Number [facility] [place] [address] [address] [place] [address] * Cell count w/rflx diff, body fluid (07/22/2024 3:17 AM ARTIST CONSULTANT) Specimen type, fld Dialysate Color, fld Straw [...] /cumm [facility] CH Fluid 07/22/2024 3:17 AM ARTIST CONSULTANT 07/22/2024 3:17 AM ARTIST CONSULTANT us Waqas Garcia MD LAB BODY FLUIDS AND STOOLS STEPHANIA PELAYO Final Result [facility] [address] [address] Department [place] [address] * (ABNORMAL) Urinalysis reflex to microscopic and culture Urine (07/22/2024 1:57 AM ARTIST CONSULTANT) Color, ur Mitzi Yellow Clarity, ur Turbid(A) Clear [facility] CH Specific gravity, ur 1.020 1.003 - 1.030 [facility] CH pH, urine 8.0 [facility] CH Comment: Interpretive Data U rine pH is affected by diet, medications, systemic acid-base disturbances, and renal tubular function. pH may affect urinary stone formation. For example, urine pH below 6.0 may help reduce the tendency for calcium phosphate stones and pH greater than 6.0 may reduce the tendency for uric acid stone formation. Source: [facility] Current Interpretive Data was last revised on [...] be performed. [facility] Urine 07/22/2024 1:57 AM ARTIST CONSULTANT 07/22/2024 2:05 AM ARTIST CONSULTANT us Blair Noe APRN LAB MICROBIOLOGY - GENERAL ORDERABLES Final Result [facility] [place] [address] [address] Department [place] [address] * (ABNORMAL) Urinalysis, microscopic only (07/22/2024 1:57 AM ARTIST CONSULTANT) WBC, ur >50(A) 0 - 5 /HPF RBC, ur >50(A) 0 - 2 /HPF [facility] Epithelial cells, squamous, ur 6-10(A) 0 - 5 /HPF [facility] Bacteria, ur Trace(A) [facility] Culture Reflex Comment Reflex to urine culture will be performed. [facility] Urine 07/22/2024 1:57 AM ARTIST CONSULTANT 07/22/2024 2:05 AM ARTIST CONSULTANT Blair Noe APRN LAB URINE ORDERABL ES Final Result Performing Organization Address [facility] de Phone Number [facility] [place] [address] [address] Department [place] [address] * Urine culture Urine (07/22/2024 1:57 AM ARTIST CONSULTANT) Report Final Report: No growth Comment:Testing performed by : [facility], [address] [place]., [address] Urine 07/22/2024 1:57 AM ARTIST CONSULTANT 07/22/2024 4:30 AM ARTIST CONSULTANT Narrative [facility] - 07/23/2024 6:18 AM ARTIST CONSULTANT Urine culture reflexed based upon urinalysis results. Testing performed by [facility] ([phone]) Blair Noe APRN LAB MICROBIOLOGY - GENERAL ORDERABLES Final Result Performing Organization Address [facility] de Phone Number LAINE KRISTIAN [address] [address] Department [place] [address] * ECG 12 lead (07/22/2024 1:33 AM ARTIST CONSULTANT) 07/22/2024 1:33 AM ARTIST CONSULTANT Narrative [facility] - 07/22/2024 9:16 AM ARTIST CONSULTANT Vent Rate: 118 bpm RR Interval: 505 msec MS Interval: 0 msec QRS Duration: 113 msec QT Interval: 354 msec QTC Interval: 424 msec P-R-T [place]: 0 - 54 - 211 degrees IMPRESSION: [...] ORDERABLES Fi nal Result Performing Organization Address City/[facility] Co de Phone Number [facility] * (ABNORMAL) CBC without differential (07/22/2024 12:51 AM ARTIST CONSULTANT) WBC 20.0(H) 3.8 - 9.9 K/cumm Hgb 8.5(L) 11.9 - 15.5 g/dL [facility] Hct 24.3(L) 35.6 - 45.5 % [facility] Plt 236 150 - 400 K/cumm [facility] MPV 11.9 9.1 - 12.3 fL [facility] RBC 2.81(L) 3.90 - 5.20 M/cumm [facility] MCV 86.5 81.3 - 96.4 fL [facility] MCH 30.2 27.1 - 33.3 pg [facility] MCHC 35.0 32.3 - 35.7 g/dL [facility] RDW CV 15.6(H) 11.1 - 14.9 % [facility] RDW SD 46.7 35.7 - 48.1 fL [facility] NRBC abs 0.20(H) 0.00 - 0.01 K/cumm [facility] Blood 07/22/2024 12:5 1 AM ARTIST CONSULTANT 07/22/2024 12:55 AM ARTIST CONSULTANT Blair Noe APRN LAB BLOOD ORDERABL ES Final Result Performing Organization Address [facility] Co de Phone Number LAINE [address] [address] Department [place] [address] * Blood culture Blood (07/21/2024 11:44 PM ARTIST CONSULTANT) Report Final Report: No growth Comment:Testing performed by : [facility], [address] [place]., [address] Blood 07/21/2024 11:4 4 PM ARTIST CONSULTANT 07/22/2024 6:05 AM ARTIST CONSULTANT Narrative [facility] - 07/26/2024 7:00 AM ARTIST CONSULTANT From a different site than #1. Collection->Peripheral [...] performance characteristics have been verified by the [facility]. For questions about this culture, contact the Microbiology Laboratory at [phone]. Interpretive data was last revised on 24. Blair Noe APRN LAB MICROBIOLOGY - GENERAL ORDERABLES Final Result [facility] [address] [address] Department of Laboratories [place], [place] [address] * Blood culture Blood (07/21/2024 11:44 PM ARTIST CONSULTANT) Report Final Report: No growth Comment:Testing performed by : [facility], [address] [place]., [address] Blood 07/21/2024 11:4 4 PM ARTIST CONSULTANT 07/22/2024 6:05 AM ARTIST CONSULTANT Narrative [facility] - 07/26/2024 7:00 AM ARTIST CONSULTANT Collection->Peripheral 1. Blood cultures are incubated for [...] performance characteristics have been verified by the [facility]. For questions about this culture, contact the Microbiology Laboratory at [phone]. Interpretive data was last revised on 24. Blair Noe APRN LAB MICROBIOLOGY - GENERAL ORDERABLES Final Result [facility] [address] [address] Department [place] [address] * CTA Abdomen Pelvis (07/21/2024 10:13 PM ARTIST CONSULTANT) Anatomical Region Laterality Modality Body N/A Computed Tomogra phy 07/21/2024 10:0 8 PM ARTIST CONSULTANT Impressions 07/22/2024 10:40 AM ARTIST CONSULTANT 1. Rectal thickening, question for proctitis. Colonic [...] Superimposed consolidation not excluded. Stat report by [facility] Electronically signed by: Sulaiman Xie M.D. Narrative 07/22/2024 10:40 AM ARTIST CONSULTANT STUDY DESCRIPTION: CTA ABDOMEN PELVIS TECHNIQUE: Axial, [...] Superimposed consolidation not excluded. Stat report by [facility] Electronically signed by: Sulaiman Xie M.D. Blair Noe APRN IMG CT PROCEDURES Final Result * Check Sample (07/21/2024 8:16 PM ARTIST CONSULTANT) ABO Rh B Positive [facility] HCLL OTHER 07/21/2024 8:16 PM ARTIST CONSULTANT 07/21/2024 8:22 PM ARTIST CONSULTANT Blake Nava MD LAB BLOOD ORDERABLES Fi nal Result [facility] [address] [address] [facility] [place] [address] CH * Critical Care (07/21/2024 7:48 PM ARTIST CONSULTANT) Narrative Evert Pizarro MD - 07/21/2024 7:48 PM ARTIST CONSULTANT Blair Noe APRN 07/22/2024 5:11 AM Critical [...] plan with the ICU team and other medical/customs consultant staff, making frequent assessments and decisions [...] time documenting in the medical record us lBair Noe APRN IN CLINIC/BEDSIDE ORDERABLES Final Result * Lactate (07/21/2024 6:55 PM ARTIST CONSULTANT) Lactate 0.9 0.7 - 2.0 mmol/L Blood 07/21/2024 6:55 PM ARTIST CONSULTANT 07/21/2024 7:13 PM ARTIST CONSULTANT us Tanika KNAPP LAB BLOOD ORDERABLES F inal Result [facility] [place] [address] [address] Department [place] [address] * Calcium, ionized, whole blood (07/21/2024 6:55 PM ARTIST CONSULTANT) Ca, ionized, bld 4.60 4.50 - 5.10 mg/dL Blood 07/21/2024 6:55 PM ARTIST CONSULTANT 07/21/2024 7:13 PM ARTIST CONSULTANT Tanika Adán KNAPP LAB BLOOD ORDERABLES F inal Result Performing Organization Address [facility] Co de Phone Number [facility] [place] [address] [address] Department of [place] [address] * (ABNORMAL) eGFR (07/21/2024 6:55 PM ARTIST CONSULTANT) eGFR 5(L) >=60 mL/min/1. 73 m2 Comment: [...] last reviewed 2021. Blood 07/21/2024 6:55 PM ARTIST CONSULTANT 07/21/2024 7:13 PM ARTIST CONSULTANT Tanika KNAPP LAB BLOOD ORDERABLES F inal Result Performing Organization Address City/[facility]/ZIP Co de Phone Number [facility] [place] [address] [address] [place] [address] * (ABNORMAL) Thyroid Function [place] (07/21/2024 6:55 PM ARTIST CONSULTANT) TSH 10.30(H) 0.30 - 4.20 mcIUnit/mL Blood 07/21/2024 6:55 PM ARTIST CONSULTANT 07/21/2024 7:13 PM ARTIST CONSULTANT Tanika KNAPP LAB BLOOD ORDERABLES F inal Result [facility] [place] [address] [address] [facility] [place] [address] * Beta-hydroxybutyrate (07/21/2024 6:55 PM ARTIST CONSULTANT) Beta-Hydroxybut yrate 0.2 <=0.5 mmol/L Blood 07/21/2024 6:55 PM ARTIST CONSULTANT 07/21/2024 11:48 PM ARTIST CONSULTANT Blair Noe APRN LAB BLOOD ORDERABL ES Final Result Performing Organization Address [facility] Co de Phone Number [place] [address] [address] [place] [address] * Infection Prevention MRSA Only (Staphylococcus aureus) PCR Nasal (07/21/2024 6:55 PM ARTIST CONSULTANT) PCR Scrn, Methicillin resistant Staphylococcus aureus (MRSA) Not Detected Not Detected CH Comment: Interpretive Data Testing performed using Nucleic Acid Amplification with the [employer] Xpert MRSA NxG Assay. This assay detects target DNA from mecA, mecC and the SCCmec insertion site of Staphylococcus aureus using Real-Time PCR and has been cleared by the FDA. Performance characteristics have been verified by the [facility]. Current Interpretive Data was last revised on 2022 Nasal 07/21/2024 6:55 PM ARTIST CONSULTANT 07/21/2024 7:12 PM ARTIST CONSULTANT Tanika KNAPP LAB MICROBIOLOGY - GEN ERAL ORDERABLES Final Result Performing Organization Address [facility]/[place] [address] [address] [facility] [place] [address] CH * aPTT (07/21/2024 6:55 PM ARTIST CONSULTANT) aPTT 38 28 - 38 sec Comment: Interpretive Data Heparin therapeutic range: 66.0 - 100.0 seconds. Range based on correlation with therapeutic heparin activity range of 0.3 - 0.7 Units/mL. Current interpretive data was last revised on 2023. Blood 07/21/2024 6:55 PM ARTIST CONSULTANT 07/21/2024 7:13 PM ARTIST CONSULTANT [facility] Wil PA LAB BLOOD ORDERABLES F inal Result Performing Organization Address [facility] de Phone Number [facility] [address] [place] [address] * (ABNORMAL) Protime-INR (07/21/2024 6:55 PM ARTIST CONSULTANT) Pathologist [facility] PT 23.3(H) 9.7 - 13.0 sec INR 2.12(H) 0.90 - 1.20 LAINE Comment: Interpretive data Oral anticoagulant therapeutic ranges: Venous thromboembolism prophylaxis or treatment: 2.0-3.0 CARDIOLOGY Standard range: 2.0-3.0 High-intensity range: 2.5-3.5 Refer to indication-specific guidelines for appropriate target ranges for prosthetic heart valve replacement. Current interpretive data was last revised on 2019. Blood 07/21/2024 6:55 PM ARTIST CONSULTANT 07/21/2024 7:13 PM ARTIST CONSULTANT [facility] Wil PA LAB BLOOD ORDERABLES F inal Result Performing Organization Address [facility] Co de Phone Number [facility] [address] [place] [address] * (ABNORMAL) CBC without differential (07/21/2024 6:55 PM ARTIST CONSULTANT) WBC 20.4(H) 3.8 - 9.9 K/cumm Hgb 8.4(L) 11.9 - 15.5 g/dL [facility] Hct 24.2(L) 35.6 - 45.5 % [facility] Plt 230 150 - 400 K/cumm [facility] MPV 12.2 9.1 - 12.3 fL [facility] RBC 2.79(L) 3.90 - 5.20 M/cumm [facility] MCV 86.7 81.3 - 96.4 fL [facility] MCH 30.1 27.1 - 33.3 pg [facility] MCHC 34.7 32.3 - 35.7 g/dL [facility] RDW CV 14.7 11.1 - 14.9 % [facility] RDW SD 44.9 35.7 - 48.1 fL [facility] NRBC abs 0.17(H) 0.00 - 0.01 K/cumm [facility] Blood 07/21/2024 6:55 PM ARTIST CONSULTANT 07/21/2024 7:13 PM ARTIST CONSULTANT Tanika De La Torre PA LAB BLOOD ORDERABLES F inal Result Performing Organization Address City/[facility]/ZIP Co de Phone Number [place] [id number] [place] [address] * Type and screen (07/21/2024 6:55 PM ARTIST CONSULTANT) ABO Rh B Positive Arianna, indirect Negative [facility] Blood 07/21/2024 6:55 PM ARTIST CONSULTANT 07/21/2024 7:22 PM ARTIST CONSULTANT Narrative [facility] - 07/21/2024 8:22 PM ARTIST CONSULTANT Has the patient had Daratumumab or Isatuximab in the past 6 months?->Unknown Marilyn Martinez [employer] LAB BLOOD BANK TANYA T ORDERABLES Final Result Performing Organization Address City/[facility]/ZIP Co de Phone Number [facility]INE [place]ST[place] [address] [place] [address] * T4, free (07/21/2024 6:55 PM ARTIST CONSULTANT) Free T4 1.04 0.90 - 1.70 ng/dL Blood 07/21/2024 6:55 PM ARTIST CONSULTANT 07/21/2024 7:13 PM ARTIST CONSULTANT Tanika Brownnti PA LAB BLOOD ORDERABLES F inal Result Performing Organization Address [facility] Co de Phone Number [place] [address] [address] [facility] [place] [address] * Phosphorus (07/21/2024 6:55 PM ARTIST CONSULTANT) Phosphorus, pl 2.5 2.3 - 4.5 mg/dL Blood 07/21/2024 6:55 PM ARTIST CONSULTANT 07/21/2024 7:13 PM ARTIST CONSULTANT Tanika Brownnti PA LAB BLOOD ORDERABLES F inal Result Performing Organization Address [facility] de Phone Number [place] [address] [facility] [place] [address] * Magnesium (07/21/2024 6:55 PM ARTIST CONSULTANT) Magnesium 2.2 1.4 - 2.5 mg/dL Blood 07/21/2024 6:55 PM ARTIST CONSULTANT 07/21/2024 7:13 PM ARTIST CONSULTANT Tanika Brownnti [place] LAB BLOOD ORDERABLES F inal Result Performing Organization Address [facility] de Phone Number [place] [address] [place] [address] * (ABNORMAL) Hepatic function panel (07/21/2024 6:55 PM ARTIST CONSULTANT) Bilirubin, total 0.6 0.1 - 1.2 mg/dL Bilirubin, direct 0.3 0.1 - 0.3 mg/dL [facility] Protein, pl 5.8(L) 6.5 - 8.5 g/dL [facility] Albumin 3.5 3.5 - 5.0 g/dL [facility] Alk phos 115 40 - 130 Units/L [facility] ALT 26 7 - 45 Units/L [facility] AST 19 10 - 45 Units/L [facility] Blood 07/21/2024 6:55 PM ARTIST CONSULTANT 07/21/2024 7:13 PM ARTIST CONSULTANT Tanika KNAPP LAB BLOOD ORDERABLES F inal Result Performing Organization Address City/[facility]/ZIP Co de Phone Number [place] [address] Department [place] [address] * (ABNORMAL) Basic metabolic panel (07/21/2024 6:55 PM ARTIST CONSULTANT) [facility] Sodium 135 135 - 145 mmol/L Potassium, pl 4.1 3.3 - 4.9 mmol/L [facility] Chloride 94(L) 97 - 110 mmol/L [facility] CO2 19(L) 22 - 32 mmol/L [facility] Anion gap 22(H) 2 - 15 mmol/L [facility] BUN 50(H) 6 - 25 mg/dL [facility] Creatinine 8.60(H) 0.60 - 1.10 mg/dL [facility] Glucose 105 70 - 199 mg/dL [facility] Comment: Interpretive Data Fasting glucose [...] 9.1 8.5 - 10.3 mg/dL [facility] Blood 07/21/2024 6:55 PM ARTIST CONSULTANT 07/21/2024 7:13 PM ARTIST CONSULTANT Tanika KNAPP LAB BLOOD ORDERABLES F inal Result Performing Organization Address [facility]/ZIP Co de Phone Number [place] [address] [facility] [place] [address] * X-ray chest 1 view (Portable) (07/21/2024 6:42 PM ARTIST CONSULTANT) Anatomical Region Laterality Modality Body, Chest N/A Computed Radiogr aphy 07/21/2024 7:05 PM ARTIST CONSULTANT Impressions 07/21/2024 7:05 PM ARTIST CONSULTANT NO ACUTE PULMONARY CHANGE. Electronically signed by: Sulaiman Xie M.D. Narrative 07/21/2024 7:05 PM ARTIST CONSULTANT EXAMINATION: XR CHEST 1 VIEW HISTORY: Atrial [...] Result * POCT glucose (07/21/2024 6:33 PM ARTIST CONSULTANT) Glucose, POC 97 70 - 199 mg/dL Blood 07/21/2024 6:33 PM ARTIST CONSULTANT 07/21/2024 6:33 PM ARTIST CONSULTANT Blake Nava MD LAB POCT ORDERABLES - D EVICE Final Result [facility] [place] [id number] Department [place] [address] * XR Outside Reference (07/21/2024 12:00 AM ARTIST CONSULTANT) Narrative [email or web address] - 08/28/2024 2:44 PM ARTIST CONSULTANT This order has been auto-finalized and does not contain a result. us Not In File Miscellaneous IMG XR PROCEDURES Samina l Result Performing Organization Address [facility] de Phone Number [email or web address] * XR Outside Reference (07/19/2024 12:00 AM ARTIST CONSULTANT) Narrative [email or web address] - 08/28/2024 2:46 PM ARTIST CONSULTANT This order has been auto-finalized and does not contain a result. us Not In File Miscellaneous IMG XR PROCEDURES Samina l Result Performing Organization Address [facility] de Phone Number [email or web address] * US Outside Reference (07/19/2024 12:00 AM ARTIST CONSULTANT) Narrative [email or web address] - 08/28/2024 2:48 PM ARTIST CONSULTANT This order has been auto-finalized and does not contain a result. us Not In File Miscellaneous IMG US PROCEDURES Samina l Result Performing Organization Address [facility] de Phone Number [email or web address] * XR Outside Reference (07/18/2024 12:00 AM ARTIST CONSULTANT) Narrative [email or web address] - 09/01/2024 10:16 AM ARTIST CONSULTANT This order has been auto-finalized and does not contain a result. us Not In File Miscellaneous IMG XR PROCEDURES Samina l Result Performing Organization Address [facility] Co de Phone Number [email or web address] * XR Outside Reference (07/16/2024 12:00 AM ARTIST CONSULTANT) Narrative [email or web address] - 09/01/2024 10:17 AM ARTIST CONSULTANT This order has been auto-finalized and does not contain a result. us Not In File Miscellaneous IMG XR PROCEDURES Samina l Result Performing Organization Address [facility] Co de Phone Number [email or web address] * Cardiology Document Scan (07/15/2024 10:51 AM ARTIST CONSULTANT) Anatomical Region Laterality Modality Other us Jia Beard NP CV CARDIAC SERVICES PROCEDUR ES Final Result * CT Body Outside Reference (07/14/2024 12:00 AM ARTIST CONSULTANT) Narrative [facility] - 09/01/2024 10:56 AM ARTIST CONSULTANT This order has been auto-finalized and does not contain a result. us Not In File Miscellaneous IMG CT PROCEDURES Samina barbosa Result Performing Organization Address [facility] Co de Phone Number [email or web address] from Last 3 Months Insurance [facility] MEDICARE [facility] Address: [address] [address] [place] [address] [employer] MEDICARE [facility] Address: [address] [address] [place] [address] Advance Directives For more information, please contact: [phone] * Full Code (Latest Code Status on File) Date Activated Date Inactivated Comments 08/21/2024 2:16 AM 08/26/2024 10:55 PM * Full Code Date Activated Date Inactivated Comments 07/25/2024 6:59 PM 08/04/2024 7:42 PM * Full Code Date Activated Date Inactivated Comments 07/21/2024 6:30 PM 07/25/2024 6:50 PM Care Teams Yeast Supervisor Relationship Specialty Start Date End Date Porsche Becker NP [address] [place] [address] PCP - General Nurse Practitioner 08/19/24 Mookie Dubois MD Referring Physician Nephrology 02/20/22 Abigail Dougherty, RN [address] [facility] [address] [place] [id number] Practice Management Consultant 02/13/24 Jama Hoskins MD [address] [facility] [address] [place] [address] Consulting Physician Cardiology 02/20/24
--- OUTSIDE RECORDS SUMMARY | 2024-10-03 00:51 | XMS_ITS | Referral Summary ---
Author Organization [facility] [address] [facility] [address] Address [address] [place] [address] Care Team Providers Care Shared Services Representative Name Role Phone Mookie Dubois MD Unavailable [phone] Abigail Dougherty RN Unavailable [phone] Jama Hoskins MD Unavailable [phone] Porsche Becker NP Primary Care Provider [phone] Encounters Date Type Department Care Team Description 09/30/2024 Telephone [facility] Medical Group Cardiology [address] [facility] [address] [place] [address] Jama Hoskins MD 09/05/2024 Telephone [facility] Medical [facility] Cardiology [address] [place] [address] [address] [place] [address] Jama Hoskins MD 09/03/2024 Telephone [facility] Transplant Kidney [address] [facility] [address] [facility] [phone] [place] [address] Abigail Dougherty, RUPESH 08/28/2024 Home Care Visit [facility] Home Health [address] [place] [address] Lillian Campuzano, PT PT VIRTUAL NON OASIS DISCHARGE 08/20/2024 7:40 PM COATING MIXER TENDER - 08/26/2024 6:54 PM COATING MIXER TENDER Hospital Encounter [address] [place] [address] Mike Connell MD Myla, Lathamanjari, MD Anemia due to chronic kidney disease, on chronic dialysis (HCC) (Primary Dx) Discharge Disposition: Discharge to home or self care 08/20/2024 Home Care Visit [place] [address] [address] [place] [address] Lillian Campuzano, PT PT OASIS TRANSFER W/OUT DC 08/20/2024 Home Care Visit [place] [address] [address] [place] [address] Dominga Head PTA CASE COMMUNICATION 08/20/2024 Telephone [facility] Cardiology [address] [place] [address] [place] [phone] Lydia Lewis, JOSE C 08/20/2024 10:45 AM COATING MIXER TENDER Home Care Visit [place] [address] [address] [place] [address] Dominga Head, RYAN PT HOME VISIT 08/20/2024 11:15 AM COATING MIXER TENDER Home Care Visit [place] [address] [address] [place] [address] Ana Cristina Kelley COTA CASE COMMUNICATION 08/19/2024 11:30 AM COATING MIXER TENDER Office Visit [place] [address] [place] [phone] Lydia Lewis, JOSE C Hypotension due to hypovolemia (Primary Dx); Dilated cardiomyopathy (HCC); Persistent atrial fibrillation (HCC); Chronic anticoagulation; ESRD (end stage renal disease) on dialysis (HCC) 08/14/2024 Telephone [facility] Cardiology [address] [place] [address] [address] [place] [address] Jama Hoskins MD Hypotension 08/12/2024 Home Care Visit [place] [address] [address] [place] [address] Lillian Campuzano, PT CARE CONFERENCE 08/12/2024 10:00 AM COATING MIXER TENDER Home Care Visit [address] [place] [address] Zofia Cosby, OT OT INITIAL EVALUATION 08/12/2024 12:45 PM COATING MIXER TENDER Home Care Visit [address] [place] [address] Dominga Head, CAPACITOR PACK PRESS OPERATOR PT HOME VISIT 08/09/2024 Home Care Visit [address] [place] [address] Magui Friedman, RN HH NURSE MED RECON FOR THERAPY 08/07/2024 Plan of Care Documentation [address] [place] [address] 08/07/2024 8:30 AM COATING MIXER TENDER Home Care Visit [place] [address] [address] [place] [address] Lillian Campuzano, PT PT OASIS START OF CARE 08/06/2024 Telephone [facility] Home Care Services [address] [place] [address] Carson Huffman MA 08/05/2024 Telephone [facility] Home Care Services [address] [place] [address] Carson Huffman MA 08/04/2024 Telephone [facility] Medical [facility] Cardiology [address] [facility] [address], [place] [phone] Tanisha Winter NP 07/25/2024 6:50 PM COATING MIXER TENDER - 08/04/2024 3:37 PM COATING MIXER TENDER Hospital Encounter [facility] Physical Medicine and Rehabilitation [address] [place] [address] Nga Dumont MD Physical deconditioning [R53.81] (Primary Dx) Discharge Disposition: Discharge to home, home health skilled care 08/03/2024 Travel 08/01/2024 Orders Only [facility] Medical Group Cardiology [address] [place] [address] Jia Beard NP 07/25/2024 Telephone [facility] Medical Group Cardiology [address] [facility] [address], [place] [phone] Tanisha Winter NP 07/21/2024 6:22 PM COATING MIXER TENDER - 07/25/2024 6:46 PM COATING MIXER TENDER Hospital Encounter [facility] [address] [place] [address] Blake Nava MD Quaizar, Huzaifa, MD Paruchuri, Tharun, MD Shanker, Swaroop, MD Paroxysmal atrial fibrillation (HCC) (Primary Dx) Discharge Disposition: Discharge to an Rehab facility 07/22/2024 Documentation [facility] Transplant Kidney [address] [facility] [address] Mailstop [phone] [place] [address] Kiera Lake RN 07/22/2024 Documentation [facility] Transplant [facility]ney [address] [facility] [address] [phone] [place] [address] Davon Annalise 07/22/2024 Telephone [facility] Transplant Kidney [address] [facility] [address]op [phone] [place] [address] Kiera Lake RN 07/21/2024 Ancillary Procedure [facility] 07/21/2024 Telephone [facility] Transplant Kidney [address] [facility] [address] [phone] [place] [address] Loli Moran 07/19/2024 Ancillary Procedure [facility] 07/19/2024 Ancillary Procedure [facility] 07/18/2024 Ancillary Procedure [facility] 07/16/2024 Ancillary Procedure [facility] 07/14/2024 Ancillary Procedure [facility] from Last 3 Months Allergies Active Allergy [...] mouth 2 (two) times a day rx #79211186 Active losartan (COZAAR) 50 mg tablet Take [...] materials from doctor or pharmacy Sometimes 08/07/2024 [facility] Utilities Answer Date Recorded In the past 12 months has e [employer], gas, oil, or water company threatened to [...] any clubs o r organizations such as jew groups, unions, fraternal or athletic groups, or [...] staff should administer the PHQ-9) 0 08/21/2024 [facility] - Occupational Stress Questionnaire Answer Date Recorded [...] any time in the past 12 m [facility], were you homeless or living in a fdc (including now)? No 07/26/2024 Personal Safety Answer Date Recorded Have you ever been in or are you currently in a harmful physical or emotional relationship or is someone making you feel afraid or unsafe? Denies 08/21/2024 Comments Unknown Sex and Gender Information Value Date Recorded Sex Assigned at Not on file 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 COATING MIXER TENDER Gender Identity Not on file Sexual Orientation Not on file Last Filed Vital Signs Vital Sign Reading Time Taken Comments Blood Pressure 93/68 08/26/2024 3:53 PM COATING MIXER TENDER Pulse 88 08/26/2024 11:45 AM COATING MIXER TENDER Temperature 36.8 C (98.3 F) 08/26/2024 3:53 PM COATING MIXER TENDER Respiratory Rate 18 08/26/2024 3:53 PM COATING MIXER TENDER Oxygen Saturation 100% 08/26/2024 3:53 PM COATING MIXER TENDER Inhaled Oxygen Concentration - - Weight 89 kg (196 lb 3.4 oz) 08/25/2024 8:00 PM COATING MIXER TENDER Height 152.4 cm (5') 08/21/2024 2:48 AM COATING MIXER TENDER Body Mass Index 38.32 08/21/2024 2:48 AM COATING MIXER TENDER Plan of Treatment Not on file Medical Devices Implanted Type Area Fine Craft Artist Device Identifier Shelf Expiration Date Model / Serial / Lot Dental Implant Other - see comments Description:Upper [employer] [place] 15fr 62cm 2 Cuff Radiopaque Peritoneal Curl Catheter [id number] - [id number] Implanted:Qty: 1 on 04/03/2022 by Sulaiman Hi MD at [facility] Left: Abdomen [employer] 10/16/2026 [id number] / / [id number] Procedures Procedure Name Priority Date/Time Associated Diagnosis Comments DIFFERENTIAL AUTO Routine 08/26/2024 2:3 6 AM COATING MIXER TENDER CBC WITH AUTO DIFFERENTIAL Routine 08/26/2024 2:36 AM COATING MIXER TENDER CONTINUOUS CYCLIC PERITONEAL DIALYSIS (CCPD) Routine 08/26/2024 12:31 AM COATING MIXER TENDER XR CHEST 1 VIEW IP Routine 08/25/2024 3:10 PM COATING MIXER TENDER CELL DIFFERENTIAL, BODY FLUID Routine 08/25/2024 2:32 PM COATING MIXER TENDER AMYLASE, BODY FLUID Routine 08/25/2024 2 :32 PM COATING MIXER TENDER CELL COUNT W/REFLEX DIFFERENTIAL, BODY FLUID Routine 08/25/2024 2:32 PM COATING MIXER TENDER GLUCOSE, BODY FLUID Routine 08/25/2024 2 :32 PM COATING MIXER TENDER LACTATE DEHYDROGENASE, BODY FLUID Routine 08/25/2024 2:32 PM COATING MIXER TENDER PROTEIN, BODY FLUID Routine 08/25/2024 2 :32 PM COATING MIXER TENDER XR CHEST PA LATERAL 2 VIEWS IP Routine 08/25/2024 8:27 AM COATING MIXER TENDER DIFFERENTIAL AUTO Routine 08/25/2024 3:0 3 AM COATING MIXER TENDER CBC WITH AUTO DIFFERENTIAL Routine 08/25/2024 3:03 AM COATING MIXER TENDER CYTOLOGY Routine 08/25/2024 12:00 AM COATING MIXER TENDER DIFFERENTIAL AUTO Routine 08/24/2024 4:3 4 AM COATING MIXER TENDER CBC WITH AUTO DIFFERENTIAL Routine 08/24/2024 4:34 AM COATING MIXER TENDER EGFR Routine 08/22/2024 9:54 AM COATING MIXER TENDER DIFFERENTIAL AUTO Routine 08/22/2024 9:5 4 AM COATING MIXER TENDER COMPREHENSIVE METABOLIC PANEL Routine 08/22/2024 9:54 AM COATING MIXER TENDER CBC WITH AUTO DIFFERENTIAL Routine 08/22/2024 9:54 AM COATING MIXER TENDER URINALYSIS, MICROSCOPIC ONLY Routine 08/21/2024 6:01 PM COATING MIXER TENDER URINE CULTURE Routine 08/21/2024 6:01 PM COATING MIXER TENDER URINALYSIS AND REFLEX TO MICROSCOPIC AND CULTURE Routine 08/21/2024 6:[address] CHEST ABDOMEN PELVIS WO CONTRAST ED Urgent/IP Urgent 08/21/2024 4:56 PM COATING MIXER TENDER VITAMIN B12 Routine 08/21/2024 7:44 AM COATING MIXER TENDER FOLATE Routine 08/21/2024 7:44 AM COATING MIXER TENDER IRON PROFILE W/ IBC Routine 08/21/2024 7 :44 AM COATING MIXER TENDER BLOOD CULTURE Routine 08/21/2024 7:44 AM COATING MIXER TENDER BLOOD CULTURE Routine 08/21/2024 7:44 AM COATING MIXER TENDER EGFR Routine 08/21/2024 2:52 AM COATING MIXER TENDER DIFFERENTIAL AUTO Routine 08/21/2024 2:5 2 AM COATING MIXER TENDER COMPREHENSIVE METABOLIC PANEL Routine 08/21/2024 2:52 AM COATING MIXER TENDER CBC WITH AUTO DIFFERENTIAL Routine 08/21/2024 2:52 AM COATING MIXER TENDER XR CHEST 1 VIEW ED 08/21/2024 1:09 AM COATING MIXER TENDER POTASSIUM, WHOLE BLOOD Timed 08/21/2024 12:48 AM COATING MIXER TENDER HEMOGLOBIN AND HEMATOCRIT Timed 08/21/2024 12:48 AM COATING MIXER TENDER TRANSFUSE RED BLOOD CELLS Timed 08/20/2024 9:36 PM COATING MIXER TENDER PREPARE RBC STAT 08/20/2024 8:06 PM COATING MIXER TENDER APTT STAT 08/20/2024 8:02 PM COATING MIXER TENDER PROTIME-INR STAT 08/20/2024 8:02 PM COATING MIXER TENDER TYPE AND SCREEN STAT 08/20/2024 8:02 PM COATING MIXER TENDER EGFR STAT 08/20/2024 1:06 PM COATING MIXER TENDER DIFFERENTIAL AUTO STAT 08/20/2024 1:0 6 PM COATING MIXER TENDER MAGNESIUM Routine 08/20/2024 1:06 PM COATING MIXER TENDER COMPREHENSIVE METABOLIC PANEL STAT 08/20/2024 1:06 PM COATING MIXER TENDER CBC WITH AUTO DIFFERENTIAL STAT 08/20/2024 1:06 PM COATING MIXER TENDER ECG 12-LEAD Routine 08/20/2024 12:45 PM COATING MIXER TENDER DIFFERENTIAL AUTO Routine 08/02/2024 5:4 5 AM COATING MIXER TENDER CBC WITH AUTO DIFFERENTIAL Routine 08/02/2024 5:45 AM COATING MIXER TENDER EGFR Routine 08/01/2024 6:03 AM COATING MIXER TENDER BASIC METABOLIC PANEL Routine 08/01/2024 6:03 AM COATING MIXER TENDER EGFR Routine 07/31/2024 8:40 AM COATING MIXER TENDER BASIC METABOLIC PANEL Routine 07/31/2024 8:40 AM COATING MIXER TENDER EGFR Routine 07/28/2024 4:32 AM COATING MIXER TENDER DIFFERENTIAL AUTO Routine 07/28/2024 4:3 2 AM COATING MIXER TENDER PHOSPHORUS Routine 07/28/2024 4:32 AM COATING MIXER TENDER CBC WITH AUTO DIFFERENTIAL Routine 07/28/2024 4:32 AM COATING MIXER TENDER COMPREHENSIVE METABOLIC PANEL Routine 07/28/2024 4:32 AM COATING MIXER TENDER XR KUB IP Routine 07/27/2024 10:38 AM COATING MIXER TENDER EGFR Routine 07/26/2024 11:38 AM COATING MIXER TENDER DIFFERENTIAL AUTO Routine 07/26/2024 11: 38 AM COATING MIXER TENDER CBC WITH AUTO DIFFERENTIAL Routine 07/26/2024 11:38 AM COATING MIXER TENDER COMPREHENSIVE METABOLIC PANEL Routine 07/26/2024 11:38 AM COATING MIXER TENDER CONTINUOUS AMBULATORY PERITONEAL DIALYSIS (CAPD) Routine 07/25/2024 3:08 PM COATING MIXER TENDER MANUAL DIFFERENTIAL Timed 07/25/2024 8 :10 AM COATING MIXER TENDER CBC WITH AUTO DIFFERENTIAL Timed 07/25/2024 8:10 AM COATING MIXER TENDER TYPE AND SCREEN Timed 07/25/2024 8:10 AM COATING MIXER TENDER EGFR Routine 07/24/2024 1:46 AM COATING MIXER TENDER CBC WITHOUT DIFFERENTIAL Routine 07/24/2024 1:46 AM COATING MIXER TENDER PHOSPHORUS Routine 07/24/2024 1:46 AM COATING MIXER TENDER MAGNESIUM Routine 07/24/2024 1:46 AM COATING MIXER TENDER BASIC METABOLIC PANEL Routine 07/24/2024 1:46 AM COATING MIXER TENDER EGFR Routine 07/23/2024 2:02 AM COATING MIXER TENDER PROTIME-INR Routine 07/23/2024 2:02 AM COATING MIXER TENDER CBC WITHOUT DIFFERENTIAL Routine 07/23/2024 2:02 AM COATING MIXER TENDER PHOSPHORUS Routine 07/23/2024 2:02 AM COATING MIXER TENDER MAGNESIUM Routine 07/23/2024 2:02 AM COATING MIXER TENDER BASIC METABOLIC PANEL Routine 07/23/2024 2:02 AM COATING MIXER TENDER CRITICAL CARE Routine 07/22/2024 8:22 AM COATING MIXER TENDER Paroxysmal atrial fibrillation (HCC) TRANSTHORACIC ECHO (TTE) COMPLETE W DOPPLER/CF W CONTRAST STAT 07/22/2024 7:00 AM COATING MIXER TENDER EGFR Routine 07/22/2024 5:41 AM COATING MIXER TENDER CBC WITHOUT DIFFERENTIAL Timed 07/22/2024 5:41 AM COATING MIXER TENDER PHOSPHORUS Routine 07/22/2024 5:41 AM COATING MIXER TENDER MAGNESIUM Routine 07/22/2024 5:41 AM COATING MIXER TENDER BASIC METABOLIC PANEL Routine 07/22/2024 5:41 AM COATING MIXER TENDER CELL DIFFERENTIAL, BODY FLUID Routine 07/22/2024 3:17 AM COATING MIXER TENDER CELL COUNT W/REFLEX DIFFERENTIAL, BODY FLUID Routine 07/22/2024 3:17 AM COATING MIXER TENDER URINALYSIS, MICROSCOPIC ONLY STAT 07/22/2024 1:57 AM COATING MIXER TENDER URINE CULTURE STAT 07/22/2024 1:57 AM COATING MIXER TENDER URINALYSIS AND REFLEX TO MICROSCOPIC AND CULTURE STAT 07/22/2024 1:57 AM COATING MIXER TENDER ECG 12-LEAD STAT 07/22/2024 1:33 AM COATING MIXER TENDER CBC WITHOUT DIFFERENTIAL Timed 07/22/2024 12:51 AM COATING MIXER TENDER CONTINUOUS AMBULATORY PERITONEAL DIALYSIS (CAPD) Routine 07/22/2024 12:31 AM COATING MIXER TENDER CONTINUOUS AMBULATORY PERITONEAL DIALYSIS (CAPD) Routine 07/21/2024 11:45 PM COATING MIXER TENDER BLOOD CULTURE STAT 07/21/2024 11:44 PM COATING MIXER TENDER BLOOD CULTURE STAT 07/21/2024 11:44 PM COATING MIXER TENDER CONTINUOUS AMBULATORY PERITONEAL DIALYSIS (CAPD) Routine 07/21/2024 11:43 PM COATING MIXER TENDER CTA ABDOMEN PELVIS W WO CONTRAST ED Urgent/IP Urgent 07/21/2024 10:13 PM COATING MIXER TENDER B CHECK SAMPLE STAT 07/21/2024 8:16 PM COATING MIXER TENDER CRITICAL CARE Routine 07/21/2024 7:48 PM COATING MIXER TENDER BETA-HYDROXYBUTYRATE Add-On 07/21/2024 6:55 PM COATING MIXER TENDER T4, FREE STAT 07/21/2024 6:55 PM COATING MIXER TENDER EGFR STAT 07/21/2024 6:55 PM COATING MIXER TENDER THYROID FUNCTION CASCADE STAT 07/21/2024 6:55 PM COATING MIXER TENDER PROTIME-INR STAT 07/21/2024 6:55 PM COATING MIXER TENDER APTT STAT 07/21/2024 6:55 PM COATING MIXER TENDER TYPE AND SCREEN Timed 07/21/2024 6:55 PM COATING MIXER TENDER CBC WITHOUT DIFFERENTIAL STAT 07/21/2024 6:55 PM COATING MIXER TENDER LACTATE STAT 07/21/2024 6:55 PM COATING MIXER TENDER CALCIUM,IONIZED, WHOLE BLOOD STAT 07/21/2024 6:55 PM COATING MIXER TENDER PHOSPHORUS STAT 07/21/2024 6:55 PM COATING MIXER TENDER HEPATIC FUNCTION PANEL STAT 07/21/2024 6:55 PM COATING MIXER TENDER BASIC METABOLIC PANEL STAT 07/21/2024 6:55 PM COATING MIXER TENDER MAGNESIUM STAT 07/21/2024 6:55 PM COATING MIXER TENDER INFECTION PREVENTION MRSA ONLY (STAPHYLOCOCCUS AUREUS) PCR Routine 07/21/2024 6:55 PM COATING MIXER TENDER XR CHEST 1 VIEW ED Urgent/IP Urgent 07/21/2024 6:42 PM COATING MIXER TENDER POCT GLUCOSE DEVICE Routine 07/21/2024 6 :33 PM COATING MIXER TENDER XR TRANSFER OF OUTSIDE FILMS Routine 07/21/2024 12:00 AM COATING MIXER TENDER US TRANSFER OF OUTSIDE FILMS Routine 07/19/2024 12:00 AM COATING MIXER TENDER XR TRANSFER OF OUTSIDE FILMS Routine 07/19/2024 12:00 AM COATING MIXER TENDER XR TRANSFER OF OUTSIDE FILMS Routine 07/18/2024 12:00 AM COATING MIXER TENDER XR TRANSFER OF OUTSIDE FILMS Routine 07/16/2024 12:00 AM COATING MIXER TENDER CARDIOLOGY DOCUMENT SCAN Routine 07/15/2024 10:[address] BODY OUTSIDE REFERENCE Routine 07/14/2024 12:00 AM COATING MIXER TENDER from Last 3 Months Results * (ABNORMAL) Differential, auto (08/26/2024 2:36 AM COATING MIXER TENDER) Neutrophil abs 7.6(H) 1.5 - 6.5 K/cumm Imm gran abs 0.1 0.0 - 0.1 K/cumm [facility] Lymphocyte abs 0.6(L) 0.8 - 3.3 K/cumm [facility] Monocyte abs 1.3(H) 0.2 - 0.8 K/cumm [facility] Eosinophil abs 0.2 0.0 - 0.5 K/cumm [facility] Basophil abs 0.1 0.0 - 0.1 K/cumm [facility] Neutrophil pct 77.1 % [facility] Comment: Interpretive Data Percent cell count reference ranges are not reported, since discordance with absolute values may lead to misinterpretation of CBC data. Current Interpretive Data was last revised on 2017. Imm gran pct 1.3 % [facility] Comment: Interpretive Data Percent cell count reference ranges are not reported, since discordance with absolute values may lead to misinterpretation of CBC data. Current Interpretive Data was last revised on 2017. Lymphocyte pct 5.7 % [facility] Comment: Interpretive Data Percent cell count reference ranges are not reported, since discordance with absolute values may lead to misinterpretation of CBC data. Current Interpretive Data was last revised on 2017. Monocyte pct 13.0 % [facility] Comment: Interpretive Data Percent cell count reference ranges are not reported, since discordance with absolute values may lead to misinterpretation of CBC data. Current Interpretive Data was last revised on 2017. Eosinophil pct 2.3 % [facility] Comment: Interpretive Data Percent cell count reference ranges are not reported, since discordance with absolute values may lead to misinterpretation of CBC data. Current Interpretive Data was last revised on 2017. Basophil pct 0.6 % [facility] Comment: Interpretive Data Percent cell count reference ranges are not reported, since discordance with absolute values may lead to misinterpretation of CBC data. Current Interpretive Data was last revised on 2017. Blood 08/26/2024 2:36 AM COATING MIXER TENDER 08/26/2024 4:06 AM COATING MIXER TENDER Bobby Ya MD LAB BLOOD ORDERABLES Final Result [facility] [id number] Department [place] [address] * (ABNORMAL) CBC with auto differential (08/26/2024 2:36 AM COATING MIXER TENDER) WBC 9.9 3.8 - 9.9 K/cumm Hgb 7.2(L) 11.9 - 15.5 g/dL [facility] Hct 24.2(L) 35.6 - 45.5 % [facility] Plt 383 150 - 400 K/cumm [facility] MPV 8.7(L) 9.1 - 12.3 fL [facility] CH RBC 2.36(L) 3.90 - 5.20 M/cumm [facility] MCV 102.5(H) 81.3 - 96.4 fL [facility] MCH 30.5 27.1 - 33.3 pg [facility] MCHC 29.8(L) 32.3 - 35.7 g/dL [facility] RDW CV 15.9(H) 11.1 - 14.9 % [facility] RDW SD 58.7(H) 35.7 - 48.1 fL [facility] NRBC abs 0.00 0.00 - 0.01 K/cumm [facility] Blood 08/26/2024 2:36 AM COATING MIXER TENDER 08/26/2024 4:06 AM COATING MIXER TENDER Bobby Ya MD LAB BLOOD ORDERABLES Final Result [facility] [id number] Department [place] [address] * XR Chest 1 Vw Portable (08/25/2024 3:10 PM COATING MIXER TENDER) Anatomical Region Laterality Modality Body, Chest N/A Computed Radiogr aphy 08/25/2024 3:29 PM COATING MIXER TENDER Impressions 08/25/2024 3:29 PM COATING MIXER TENDER FINDINGS/IMPRESSION: Small bilateral pleural effusions. No consolidation. Borderline cardiomegaly. No acute osseous abnormality. Electronically signed by: Peter Porter II, D.O. Narrative 08/25/2024 3:29 PM COATING MIXER TENDER EXAMINATION: XR CHEST 1 VIEW DATE: 08/25/2024 2:10 PM INDICATION: Thoracentesis. COMPARISON: 09/17/2024. Procedure Note Peter Porter II, DO - 08/25/2024 EXAMINATION: XR CHEST 1 VIEW DATE: 08/25/2024 2:10 PM INDICATION: Thoracentesis. COMPARISON: 09/17/2024. IMPRESSION: FINDINGS/IMPRESSION: Small bilateral pleural effusions. No consolidation. Borderline cardiomegaly. No acute osseous abnormality. Electronically signed by: Peter Porter II, D.O. Result [facility] Charles Hendrickson MD IMG XR PROCEDURES Final Result * Cell Differential, Body Fluid (08/25/2024 2:32 PM COATING MIXER TENDER) Total cells diffed 82 % Comment: Interpretive [...] % [facility] Fluid 08/25/2024 2:32 PM COATING MIXER TENDER 08/25/2024 2:32 PM COATING MIXER TENDER Charles Hendrickson MD LAB BODY FLUIDS AND STO [employer] ORDERABLES Final Result Performing Organization Address [facility] de Phone Number [facility] [phone] [place] [address] * Cell count w/rflx diff, body fluid (08/25/2024 2:32 PM COATING MIXER TENDER) Specimen type, fld Pleural Body site, fld [...] /cumm [facility] Fluid 08/25/2024 2:32 PM COATING MIXER TENDER 08/25/2024 2:32 PM COATING MIXER TENDER Charles Hendrickson MD LAB BODY FLUIDS AND STO OLS ORDERABLES Final Result Performing Organization Address [facility] de Phone Number [facility] [place] [phone] [place] [address] * Protein, body fluid (08/25/2024 2:32 PM COATING MIXER TENDER) Specimen type, fld Pleural Comment:Testing performed by : [facility], [address] [place] [address] Body site, fld Pleural fluid, left [facility] Comment:Testing performed by : [facility], [address] [place]., [address] Protein, fld 3.5 g/dL [facility] Comment: The above specimen type is not [...] was last revised 2019. Testing performed by: [facility], [address] [place]., [address] Fluid 08/25/2024 2:32 PM COATING MIXER TENDER 08/25/2024 5:52 PM COATING MIXER TENDER Charles Hendrickson MD LAB BODY FLUIDS AND STO OLS ORDERABLES Final Result [facility] [address] Department [place] [address] * Lactate dehydrogenase, body fluid (08/25/2024 2:32 PM COATING MIXER TENDER) Specimen type, fld Pleural Comment:Testing performed by : [facility], [address] [place]., [address] Body site, fld Pleural fluid, left [facility] Comment:Testing performed by : [facility], [address] [place]., [address] LD, fld 151 Units/L [facility] Comment: [...] was last revised 2019. Testing performed by: [facility], [address] [place]., [address] Fluid 08/25/2024 2:32 PM COATING MIXER TENDER 08/25/2024 5:52 PM COATING MIXER TENDER us Charles Hendrickson MD LAB BODY FLUIDS AND STO OLS ORDERABLES Final Result [facility] [address] Department [place] [address] * Glucose, body fluid (08/25/2024 2:32 PM COATING MIXER TENDER) Specimen type, fld Pleural Comment:Testing performed by : [facility], [address] [place]., [address] Body site, fld Pleural fluid, left [facility] Comment:Testing performed by : [facility], [address] [place] [address]., [address] Glucose, fld 109 mg/dL [facility] Comment: [...] and Management. Meir Clin J Med 2005;72:854-72. [email or web address] Test directory, Body Fluid Reference Intervals and/or Interpretative Information. https://Done In :60 [email or web address]/bodyfluids Danika COUCH et al. Pancreatic cyst fluid glucose: rapid, inexpensive, and accurate diagnosis of mucinous pancreatic cysts. Surgery 2018;163:600-5. Mohsen GUAN et al. Differential diagnosis of pancreatic cysts: A prospective study on the role of intra-cystic glucose concentration. Digestive Liver Dis 2020;52:1026-32. Current Interpretive Data was last revised 2021. Testing performed by: [facility], [address] [place]., [address] Fluid 08/25/2024 2:32 PM COATING MIXER TENDER 08/25/2024 5:52 PM COATING MIXER TENDER Narrative LAINE TOWNSEND - 08/25/2024 7:28 PM COATING MIXER TENDER Body Fluid Type->Pleural us Charles Hendrickson MD LAB BODY FLUIDS AND STO OLS ORDERABLES Final Result LAINE [address] Department [place] [address] * Amylase, body fluid (08/25/2024 2:32 PM COATING MIXER TENDER) Specimen type, fld Pleural fluid, left Comment:Testing performed by : [facility], [address] [place]., [address] Amylase, fld <30 Units/L LAINE TOWNSEND Comment: [...] 2018. Chapter 43, Body Fluids, p. 925 [email or web address] Test directory, Body Fluid Reference Intervals and/or Interpretative Information. https://Done In :60 Seconds/bodyfluids Current Interpretive Data was last revised 2019. Testing performed by: [facility], [address] [place]., [address] Fluid 08/25/2024 2:32 PM COATING MIXER TENDER 08/25/2024 5:52 PM COATING MIXER TENDER us Charles Hendrickson MD LAB BODY FLUIDS AND STO OLS ORDERABLES Final Result LAINE [address] Department [place] [address] * XR Chest PA Lateral 2 Views (08/25/2024 8:27 AM COATING MIXER TENDER) Anatomical Region Laterality Modality Body, Chest N/A Computed Radiogr aphy 08/25/2024 8:52 AM COATING MIXER TENDER Impressions 08/25/2024 8:52 AM COATING MIXER TENDER PERSISTENT PLEURAL EFFUSIONS LARGER ON THE LEFT THAN THE RIGHT. MILD FLUID OVERLOAD Electronically signed by: Bryant Alvarez M.D. Narrative 08/25/2024 8:52 AM COATING MIXER TENDER EXAMINATION: XR CHEST PA LATERAL 2 VIEWS [...] * (ABNORMAL) Differential, auto (08/25/2024 3:03 AM COATING MIXER TENDER) Neutrophil abs 7.4(H) 1.5 - 6.5 K/cumm Imm gran abs 0.1 0.0 - 0.1 K/cumm [facility] Lymphocyte abs 0.6(L) 0.8 - 3.3 K/cumm [facility] Monocyte abs 1.3(H) 0.2 - 0.8 K/cumm [facility] Eosinophil abs 0.3 0.0 - 0.5 K/cumm [facility] Basophil abs 0.1 0.0 - 0.1 K/cumm [facility] Neutrophil pct 75.8 % [facility] Comment: Interpretive Data Percent cell [...] revised on 2017. Basophil pct 0.6 % [facility] Comment: Interpretive Data Percent cell count reference ranges are not reported, since discordance with absolute values may lead to misinterpretation of CBC data. Current Interpretive Data was last revised on 2017. Blood 08/25/2024 3:03 AM COATING MIXER TENDER 08/25/2024 4:15 AM COATING MIXER TENDER Bobby Ya MD LAB BLOOD ORDERABLES Final Result [facility] [address] Department [place] [address] * (ABNORMAL) CBC with auto differential (08/25/2024 3:03 AM COATING MIXER TENDER) WBC 9.8 3.8 - 9.9 K/cumm Hgb 7.3(L) 11.9 - 15.5 g/dL [facility] Hct 24.3(L) 35.6 - 45.5 % [facility] Plt 424(H) 150 - 400 K/cumm [facility] MPV 8.6(L) 9.1 - 12.3 fL [facility] RBC 2.36(L) 3.90 - 5.20 M/cumm [facility] MCV 103.0(H) 81.3 - 96.4 fL [facility] MCH 30.9 27.1 - 33.3 pg [facility] MCHC 30.0(L) 32.3 - 35.7 g/dL [facility] RDW CV 16.2(H) 11.1 - 14.9 % [facility] RDW SD 61.8(H) 35.7 - 48.1 fL [facility] NRBC abs 0.00 0.00 - 0.01 K/cumm [facility] Blood 08/25/2024 3:03 AM COATING MIXER TENDER 08/25/2024 4:15 AM COATING MIXER TENDER Bobby Ya MD LAB BLOOD ORDERABLES Final Result LAINE [address] Department [place] [address] * Cytology (08/25/2024 12:00 AM COATING MIXER TENDER) Fluid (Pleura (Cytology)) 08/25/2024 08/25/2024 2:53 PM COATING MIXER TENDER Narrative PATHOLOGY - 08/27/2024 12:43 PM COATING MIXER TENDER EPIC results best viewed via link to PDF [facility] Department of Pathology [address] [place] [address] Note to Patients: This report may [...] Final Report Patient Name: CHATO NOBLE Address: [address] [place] [address] Gender: F : 1960 (Age: 63) Service: Medical Location: [facility] Hospital # [id number] Patient Type: [facility] Taken: 08/25/2024 Received: 08/25/2024 Accessioned: 08/25/2024 [...] determined by the Surgical Pathology Department at [facility] as part of an ongoing software quality assurance specialist program and in compliance with federally mandated [...] characteristics determined by the Surgical Pathology Department [facility]. It has not been cleared or approved by the U. S. Food and Drug Administration. Unless otherwise noted all cytology processing, staining and screening is performed at [facility] ([address] [place] [address]). REPORT IMAGES AND SCANNED DOCUMENTS, IF INCLUDED, ONLY VIEWABLE IN PDF VERSION OF REPORT us Charles Hendrickson MD LAB CYTOLOGY ORDERABLES [place] [address] * (ABNORMAL) Differential, auto (08/24/2024 4:34 AM COATING MIXER TENDER) Neutrophil abs 7.9(H) 1.5 - 6.5 K/cumm Imm gran abs 0.1 0.0 - 0.1 K/cumm [facility] Lymphocyte abs 0.6(L) 0.8 - 3.3 K/cumm [facility] Monocyte abs 1.3(H) 0.2 - 0.8 K/cumm [facility] Eosinophil abs 0.3 0.0 - 0.5 K/cumm [facility] Basophil abs 0.1 0.0 - 0.1 K/cumm [facility] Neutrophil pct 77.1 % [facility] Comment: Interpretive Data Percent cell count reference ranges are not reported, since discordance with absolute values may lead to misinterpretation of CBC data. Current Interpretive Data was last revised on 2017. Imm gran pct 1.4 % [facility] Comment: Interpretive Data Percent cell count reference ranges are not reported, since discordance with absolute values may lead to misinterpretation of CBC data. Current Interpretive Data was last revised on 2017. Lymphocyte pct 5.4 % [facility] Comment: Interpretive Data Percent cell count reference ranges are not reported, since discordance with absolute values may lead to misinterpretation of CBC data. Current Interpretive Data was last revised on 2017. Monocyte pct 12.6 % [facility] Comment: Interpretive Data Percent cell count reference ranges are not reported, since discordance with absolute values may lead to misinterpretation of CBC data. Current Interpretive Data was last revised on 2017. Eosinophil pct 2.9 % [facility] Comment: Interpretive Data Percent cell count reference ranges are not reported, since discordance with absolute values may lead to misinterpretation of CBC data. Current Interpretive Data was last revised on 2017. Basophil pct 0.6 % [facility] Comment: Interpretive Data Percent cell count reference ranges are not reported, since discordance with absolute values may lead to misinterpretation of CBC data. Current Interpretive Data was last revised on 2017. Blood 08/24/2024 4:34 AM COATING MIXER TENDER 08/24/2024 4:49 AM COATING MIXER TENDER us Bobby Ya MD LAB BLOOD ORDERABLES Final Result LAINE [address] Department [place] [address] * (ABNORMAL) CBC with auto differential (08/24/2024 4:34 AM COATING MIXER TENDER) Pathologist [facility] WBC 10.3(H) 3.8 - 9.9 K/cumm Hgb 7.0(L) 11.9 - 15.5 g/dL [facility] Hct 23.3(L) 35.6 - 45.5 % [facility] Plt 410(H) 150 - 400 K/cumm [facility] MPV 8.4(L) 9.1 - 12.3 fL [facility] RBC 2.24(L) 3.90 - 5.20 M/cumm [facility] MCV 104.0(H) 81.3 - 96.4 fL [facility] MCH 31.3 27.1 - 33.3 pg [facility] MCHC 30.0(L) 32.3 - 35.7 g/dL [facility] RDW CV 16.7(H) 11.1 - 14.9 % [facility] RDW SD 64.5(H) 35.7 - 48.1 fL [facility] NRBC abs 0.00 0.00 - 0.01 K/cumm [facility] Blood 08/24/2024 4:34 AM COATING MIXER TENDER 08/24/2024 4:49 AM COATING MIXER TENDER Bobby Ya MD LAB BLOOD ORDERABLES Final Result [facility] [address] Department [place] [address] * (ABNORMAL) eGFR (08/22/2024 9:54 AM COATING MIXER TENDER) [facility] eGFR 3(L) >=60 mL/min/1. 73 m2 Comment: [...] last reviewed 2021. Blood 08/22/2024 9:54 AM COATING MIXER TENDER 08/22/2024 10:37 AM COATING MIXER TENDER us Kala Barbosa NP LAB BLOOD ORDERABLES Final R esult LAINE [address] Department [place] [address] * (ABNORMAL) Differential, auto (08/22/2024 9:54 AM COATING MIXER TENDER) Neutrophil abs 9.3(H) 1.5 - 6.5 K/cumm Imm gran abs 0.2(H) 0.0 - 0.1 K/cumm [facility] Lymphocyte abs 0.7(L) 0.8 - 3.3 K/cumm [facility] Monocyte abs 1.2(H) 0.2 - 0.8 K/cumm [facility] Eosinophil abs 0.3 0.0 - 0.5 K/cumm [facility] Basophil abs 0.1 0.0 - 0.1 K/cumm [facility] Neutrophil pct 79.3 % [facility] Comment: Interpretive Data Percent cell count reference ranges are not reported, since discordance with absolute values may lead to misinterpretation of CBC data. Current Interpretive Data was last revised on 2017. Imm gran pct 1.3 % LAINE Comment: Interpretive Data Percent cell count reference ranges are not reported, since discordance with absolute values may lead to misinterpretation of CBC data. Current Interpretive Data was last revised on 2017. Lymphocyte pct 5.7 % [facility] Comment: Interpretive Data Percent cell count reference ranges are not reported, since discordance with absolute values may lead to misinterpretation of CBC data. Current Interpretive Data was last revised on 2017. Monocyte pct 10.4 % [facility] Comment: Interpretive Data Percent cell count reference ranges are not reported, since discordance with absolute values may lead to misinterpretation of CBC data. Current Interpretive Data was last revised on 2017. Eosinophil pct 2.7 % [facility] Comment: Interpretive Data Percent cell count reference ranges are not reported, since discordance with absolute values may lead to misinterpretation of CBC data. Current Interpretive Data was last revised on 2017. Basophil pct 0.6 % [facility] Comment: Interpretive Data Percent cell count reference ranges are not reported, since discordance with absolute values may lead to misinterpretation of CBC data. Current Interpretive Data was last revised on 2017. Blood 08/22/2024 9:54 AM COATING MIXER TENDER 08/22/2024 10:36 AM COATING MIXER TENDER Kala Barbosa NP LAB BLOOD ORDERABLES Final R esult [facility] [address] Department [place] [address] * (ABNORMAL) CBC with auto differential (08/22/2024 9:54 AM COATING MIXER TENDER) WBC 11.7(H) 3.8 - 9.9 K/cumm Hgb 7.4(L) 11.9 - 15.5 g/dL [facility] Hct 24.6(L) 35.6 - 45.5 % [facility] Plt 462(H) 150 - 400 K/cumm [facility] MPV 8.5(L) 9.1 - 12.3 fL [facility] RBC 2.37(L) 3.90 - 5.20 M/cumm [facility] MCV 103.8(H) 81.3 - 96.4 fL [facility] MCH 31.2 27.1 - 33.3 pg [facility] MCHC 30.1(L) 32.3 - 35.7 g/dL [facility] RDW CV 18.0(H) 11.1 - 14.9 % [facility] RDW SD 67.7(H) 35.7 - 48.1 fL [facility] NRBC abs 0.00 0.00 - 0.01 K/cumm [facility] Blood 08/22/2024 9:54 AM COATING MIXER TENDER 08/22/2024 10:36 AM COATING MIXER TENDER us Rhiannondon Familia WOODALL LAB BLOOD ORDERABLES Final R esult [facility] [address] [address] Department [place] [address] * (ABNORMAL) Comprehensive metabolic panel (08/22/2024 9:54 AM COATING MIXER TENDER) Sodium 137 135 - 145 mmol/L Potassium, [...] Units/L [facility] Blood 08/22/2024 9:54 AM COATING MIXER TENDER 08/22/2024 10:37 AM COATING MIXER TENDER Kala Barbosa NP LAB [place]LOOD [place] [address] [address] Department [place] [address] * (ABNORMAL) Urinalysis reflex to microscopic and culture Urine, clean voided (08/21/2024 6:01 PM COATING MIXER TENDER) Color, ur Mitzi Yellow Clarity, ur Turbid(A) [...] tendency for uric acid stone formation. Source: [facility] Cigital Current Interpretive Data was last revised on [...] to microscopic UA will be performed. [facility] Urine, clean voided 08/21/2024 6:01 PM COATING MIXER TENDER 08/21/2024 6:06 PM COATING MIXER TENDER Bobby Ya MD LAB MICROBIOLOGY - GENERAL ORDERABLES Final Result Performing Organization Address City/[facility]/ZIP Co de Phone Number [facility] [address] [address] Department [place] [address] * (ABNORMAL) Urinalysis, microscopic only (08/21/2024 6:01 PM COATING MIXER TENDER) WBC, ur >50(A) 0 - 5 /HPF RBC, ur >50(A) 0 - 2 /HPF [facility] Epithelial cells, squamous, ur 21-50(A) 0 - 5 /HPF [facility] Culture Reflex Comment Reflex to urine culture will be performed. [facility] Urine, clean voided 08/21/2024 6:01 PM COATING MIXER TENDER 08/21/2024 6:06 PM COATING MIXER TENDER Bobby Ya MD LAB URINE ORDERABLES Final Result Performing Organization Address City/[facility]/ZIP Co de Phone Number LAINE [address] [place] [address] * Urine culture Urine, clean voided (08/21/2024 6:01 PM COATING MIXER TENDER) Report Final Report: Less than 100,000 colonies/mL (clinically insignificant growth based on current clinical standards) Comment:Testing performed by : [facility], [address] [facility] [place]., [address] Organism (CLINICALLY INSIGNIFICANT GROWTH [facility] Urine, clean voided 08/21/2024 6:01 PM COATING MIXER TENDER 08/21/2024 8:14 PM COATING MIXER TENDER Narrative [facility] - 08/23/2024 7:20 AM COATING MIXER TENDER Urine culture reflexed based upon urinalysis results. Testing performed by [facility] Microbiology Laboratory ([phone]) Bobby Ya MD LAB MICROBIOLOGY - GENERAL ORDERABLES Final Result LAINE [place] [address] [place] [address] * CT Chest Abdomen Pelvis WO Contrast (08/21/2024 4:56 PM COATING MIXER TENDER) Anatomical Region Laterality Modality Body N/A Computed Tomogra phy 08/21/2024 5:31 PM COATING MIXER TENDER Impressions 08/22/2024 2:24 PM COATING MIXER TENDER Moderate loculated left pleural effusion with left [...] Priscila Ochoa M.D. Narrative 08/22/2024 2:24 PM COATING MIXER TENDER EXAM: CT CHEST, ABDOMEN AND PELVIS WITHOUT [...] noted without pericardial effusion..Atherosclerotic nonaneurysmal aorta with [id number] calcified plaque and mild aortic valvular calcification [...] noted without pericardial effusion..Atherosclerotic nonaneurysmal aorta with [id number] calcified plaque and mild aortic valvular calcification [...] Iron profile w/ IBC (08/21/2024 7:44 AM COATING MIXER TENDER) Pathologist [facility] Iron 164(H) 35 - 145 mcg/dl TIBC 254 250 - 400 mcg/dL [facility] CH Transferrin saturation 65(H) 20 - 50 % [facility] Blood 08/21/2024 7:44 AM COATING MIXER TENDER 08/21/2024 9:19 AM COATING MIXER TENDER Kala Barbosa NP LAB BLOOD ORDERABLES Final R esult [facility]INE [place] [address] Department [place] [address] * Blood culture Blood (08/21/2024 7:44 AM COATING MIXER TENDER) Report Final Report: No growth Comment:Testing performed by : [facility], [address] [place]., [address] Blood 08/21/2024 7:4 4 AM COATING MIXER TENDER 08/21/2024 12:57 PM COATING MIXER TENDER Narrative LAINE TOWNSEND - 08/25/2024 4:00 PM COATING MIXER TENDER From a different site than #1. Collection->Peripheral [...] performance characteristics have been verified by the [facility] Microbiology Laboratory. For questions about this culture, contact the Microbiology Laboratory at [phone]. Interpretive data was last revised on 24. Kala Barbosa NP LAB MICROBIOLOGY - GENERAL O RDERABLES Final Result LAINE [place]END [address] Department [place] [address] * Blood culture Blood (08/21/2024 7:44 AM COATING MIXER TENDER) Report Final Report: No growth Comment:Testing performed by : [facility], [address] [place]., [address] Blood 08/21/2024 7:44 AM COATING MIXER TENDER 08/21/2024 12:57 PM COATING MIXER TENDER Narrative LAINE Haq 08/25/2024 4:00 PM COATING MIXER TENDER Collection->Peripheral 1. Blood cultures are incubated for [...] performance characteristics have been verified by the [facility] Microbiology Laboratory. For questions about this culture, contact the Microbiology Laboratory at [phone]. Interpretive data was last revised on 24. Kala Barbosa NP LAB MICROBIOLOGY - GENERAL O RDERABLES Final Result Performing Organization Address City/[facility] Co de Phone Number LAINE [place] [address] [place] [address] * Folate (08/21/2024 7:44 AM COATING MIXER TENDER) Folic acid >20.0 >=5.0 ng/mL Comment:Hemolysis present. R esults may be affected. Blood 08/21/2024 7:44 AM COATING MIXER TENDER 08/21/2024 9:19 AM COATING MIXER TENDER Kala Barbosa NP LAB BLOOD ORDERABLES Final R esult Performing Organization Address [facility] Co de Phone Number LAINE T[place] [address] [address] Department [place] [address] * (ABNORMAL) Vitamin B12 (08/21/2024 7:44 AM COATING MIXER TENDER) Vitamin B12 1,704(H) 230 - 1,250 pg/mL Blood 08/21/2024 7:44 AM COATING MIXER TENDER 08/21/2024 9:19 AM COATING MIXER TENDER Kala Barbosa NP LAB BLOOD ORDERABLES Final R esult Performing Organization Address [facility] Co de Phone Number LAINE T[place]NSEND [address] Department [place] [address] * (ABNORMAL) eGFR (08/21/2024 2:52 AM COATING MIXER TENDER) [facility] eGFR 4(L) >=60 mL/min/1. 73 m2 Comment: [...] last reviewed 2021. Blood 08/21/2024 2:52 AM COATING MIXER TENDER 08/21/2024 3:17 AM COATING MIXER TENDER Kala Barbosa NP LAB BLOOD ORDERABLES Final R esult LAINE [place] [address] [address] Department [employer] [place], [place] [id number] * (ABNORMAL) Differential, auto (08/21/2024 2:52 AM COATING MIXER TENDER) Pathologist [facility] Neutrophil abs 9.6(H) 1.5 - 6.5 K/cumm Imm gran abs 0.2(H) 0.0 - 0.1 K/cumm [facility] Lymphocyte abs 1.0 0.8 - 3.3 K/cumm [facility] Monocyte abs 1.4(H) 0.2 - 0.8 K/cumm [facility] Eosinophil abs 0.3 0.0 - 0.5 K/cumm [facility] Basophil abs 0.1 0.0 - 0.1 K/cumm [facility] Neutrophil pct 76.2 % [facility] Comment: Interpretive Data Percent cell count reference ranges are not reported, since discordance with absolute values may lead to misinterpretation of CBC data. Current Interpretive Data was last revised on 2017. Imm gran pct 1.4 % [facility] Comment: Interpretive Data Percent cell count reference ranges are not reported, since discordance with absolute values may lead to misinterpretation of CBC data. Current Interpretive Data was last revised on 2017. Lymphocyte pct 8.2 % [facility] Comment: Interpretive Data Percent cell count reference ranges are not reported, since discordance with absolute values may lead to misinterpretation of CBC data. Current Interpretive Data was last revised on 2017. Monocyte pct 11.4 % [facility] Comment: Interpretive Data Percent cell count reference ranges are not reported, since discordance with absolute values may lead to misinterpretation of CBC data. Current Interpretive Data was last revised on 2017. Eosinophil pct 2.1 % [facility] Comment: Interpretive Data Percent cell count reference ranges are not reported, since discordance with absolute values may lead to misinterpretation of CBC data. Current Interpretive Data was last revised on 2017. Basophil pct 0.7 % [facility] Comment: Interpretive Data Percent cell count reference ranges are not reported, since discordance with absolute values may lead to misinterpretation of CBC data. Current Interpretive Data was last revised on 2017. Blood 08/21/2024 2:52 AM COATING MIXER TENDER 08/21/2024 3:18 AM COATING MIXER TENDER us Kala Barbosa NP LAB BLOOD ORDERABLES Final R esult [place]INE [place] [address] [address] Department [place] [address] * (ABNORMAL) CBC with auto differential (08/21/2024 2:52 AM COATING MIXER TENDER) Pathologist [facility] WBC 12.6(H) 3.8 - 9.9 K/cumm Hgb 7.4(L) 11.9 - 15.5 g/dL [facility] Hct 24.1(L) 35.6 - 45.5 % [facility] Plt 478(H) 150 - 400 K/cumm [facility] MPV 8.3(L) 9.1 - 12.3 fL [facility] RBC 2.36(L) 3.90 - 5.20 M/cumm [facility] MCV 102.1(H) 81.3 - 96.4 fL [facility] MCH 31.4 27.1 - 33.3 pg [facility] MCHC 30.7(L) 32.3 - 35.7 g/dL [facility] RDW CV 18.6(H) 11.1 - 14.9 % [facility] RDW SD 68.8(H) 35.7 - 48.1 fL [facility] NRBC abs 0.00 0.00 - 0.01 K/cumm [facility] Blood 08/21/2024 2:52 AM COATING MIXER TENDER 08/21/2024 3:18 AM COATING MIXER TENDER Kala Barbosa NP LAB BLOOD ORDERABLES Final R esult [facility] [address] Department [place] [address] * (ABNORMAL) Comprehensive metabolic panel (08/21/2024 2:52 AM COATING MIXER TENDER) Pathologist [facility] Sodium 136 135 - 145 mmol/L Potassium, [...] Units/L [facility] Blood 08/21/2024 2:52 AM COATING MIXER TENDER 08/21/2024 3:17 AM COATING MIXER TENDER Kala Barbosa NP LAB BLOOD ORDERABLES Final R esult [facility] [id number] [address] Department [place] [address] * XR Chest 1 Vw Portable (08/21/2024 1:09 AM COATING MIXER TENDER) Anatomical Region Laterality Modality Body, Chest N/A Computed Radiogr aphy 08/21/2024 8:04 AM COATING MIXER TENDER Impressions 08/21/2024 8:04 AM COATING MIXER TENDER CARDIOMEGALY WITH CONSOLIDATING OPACITY IN THE LEFT BASE AND HAZY OPACITY IN THE RIGHT BASE WITH FLUID IN THE FISSURE. A LATERAL CHEST VIEW OR CT OF THE CHEST IS SUGGESTED TO EVALUATE THE LUNG BASES. Electronically signed by: Sulaiman Xie M.D. Narrative 08/21/2024 8:04 AM COATING MIXER TENDER EXAMINATION: XR CHEST 1 VIEW HISTORY: Elevated [...] (ABNORMAL) Potassium, whole blood (08/21/2024 12:48 AM COATING MIXER TENDER) Potassium, bld 3.1(L) 3.3 - 4.9 mmol/L Comment: Interpretive Data This method is not able to assess for hemolysis, which may falsely increase potassium concentrations. If further testing is needed to evaluate this result, consider in-laboratory plasma potassium. Current Interpretive Data was last revised on 2022. Blood 08/21/2024 12:4 8 AM COATING MIXER TENDER 08/21/2024 12:59 AM COATING MIXER TENDER Susan Salcedo NP LAB [place] [address] [place] [address] * (ABNORMAL) Hemoglobin and hematocrit (08/21/2024 12:48 AM COATING MIXER TENDER) Pathologist [facility] Hgb 7.2(L) 11.9 - 15.5 g/dL Hct 23.7(L) 35.6 - 45.5 % [facility] Blood 08/21/2024 12:4 8 AM COATING MIXER TENDER 08/21/2024 1:00 AM COATING MIXER TENDER Susan Salcedo NP LAB BLOOD ORDERABLES Final Result Performing Organization Address [facility] de Phone Number [place] [address] [place] [address] * Transfuse RBC (08/20/2024 11:45 PM COATING MIXER TENDER) Blood Susan Salcedo NP BLOOD TRANSFUSION OR DERABLES Final Result Performing Organization Address [facility] de Phone Number LAINE KRISTIAN [address] [place] [address] * Prepare RBC: 1 Units (08/20/2024 8:06 PM COATING MIXER TENDER) [facility] Product code [id number] Unit Number [id number] [facility] Product Blood Type BPOS [facility] Dispense Status PRESUMED TRANSFUSED [facility] Blood 08/20/2024 8:06 PM COATING MIXER TENDER Narrative [facility] - 08/21/2024 10:15 AM COATING MIXER TENDER Are special requirements needed? (All products are leukoreduced and CMV- safe)- >No Date required:-[id number] LRRBC # of [id number] Reasons:-Hgb <7 g/dL} Susan Salcedo NP BLOOD BANK PRODUCT O RDERABLES Final Result Performing Organization Address [facility] de Phone Number LAINE KRISTIAN [id number] [place] [address] * (ABNORMAL) aPTT (08/20/2024 8:02 PM COATING MIXER TENDER) aPTT 53(H) 28 - 38 sec Comment: Interpretive Data Heparin therapeutic range: 66.0 - 100.0 seconds. Range based on correlation with therapeutic heparin activity range of 0.3 - 0.7 Units/mL. Current interpretive data was last revised on 2023. Blood 08/20/2024 8:02 PM COATING MIXER TENDER 08/20/2024 8:26 PM COATING MIXER TENDER Dominga KNAPP LAB BLOOD ORDERABLES Final Resu lt Performing Organization Address [facility] Co de Phone Number LAINE TOWNSEND [address] [facility] [place] [address] * (ABNORMAL) Protime-INR (08/20/2024 8:02 PM COATING MIXER TENDER) PT 22.7(H) 9.7 - 13.0 sec INR 2.07(H) 0.90 - 1.20 LAINE Comment: Interpretive data Oral anticoagulant therapeutic ranges: Venous thromboembolism prophylaxis or treatment: 2.0-3.0 CARDIOLOGY Standard range: 2.0-3.0 High-intensity range: 2.5-3.5 Refer to indication-specific guidelines for appropriate target ranges for prosthetic heart valve replacement. Current interpretive data was last revised on 2019. Blood 08/20/2024 8:02 PM COATING MIXER TENDER 08/20/2024 8:26 PM COATING MIXER TENDER Dominga KNAPP LAB BLOOD ORDERABLES Final Resu lt Performing Organization Address [facility]/ZIP Co de Phone Number SUMMERSTEVE TOWNSEND [address] [facility] [place] [address] * Type and screen (08/20/2024 8:02 PM COATING MIXER TENDER) Arianna, indirect Negative ABO Rh B Positive LAINE Blood 08/20/2024 8:02 PM COATING MIXER TENDER 08/20/2024 8:26 PM COATING MIXER TENDER Narrative LAINE TOWNSEND - 08/20/2024 9:05 PM COATING MIXER TENDER Has the patient had Daratumumab or Isatuximab in the past 6 months?->Unknown us Dominga KNAPP LAB BLOOD BANK TEST ORDERABLES Final Result Performing Organization Address City/[facility]/ZIP Co de Phone Number LAINE TOWNSEND [address] Department [place] [address] * (ABNORMAL) eGFR (08/20/2024 1:06 PM COATING MIXER TENDER) eGFR 4(L) >=60 mL/min/1. 73 m2 Comment: [...] last reviewed 2021. Blood 08/20/2024 1:06 PM COATING MIXER TENDER 08/20/2024 1:06 PM COATING MIXER TENDER Alcides KNAPP LAB BLOOD ORDERABLES Final Result LAINE TOWNSEND [address] Department [place] [address] * (ABNORMAL) Differential, auto (08/20/2024 1:06 PM COATING MIXER TENDER) Neutrophil abs 9.9(H) 1.5 - 6.5 K/cumm Imm gran abs 0.2(H) 0.0 - 0.1 K/cumm [facility] Lymphocyte abs 0.8 0.8 - 3.3 K/cumm [facility] Monocyte abs 1.1(H) 0.2 - 0.8 K/cumm [facility] Eosinophil abs 0.3 0.0 - 0.5 K/cumm [facility] Basophil abs 0.1 0.0 - 0.1 K/cumm [facility] Neutrophil pct 80.3 % [facility] Comment: Interpretive Data Percent cell count reference ranges are not reported, since discordance with absolute values may lead to misinterpretation of CBC data. Current Interpretive Data was last revised on 2017. Imm gran pct 1.4 % [facility] Comment: Interpretive Data Percent cell count reference ranges are not reported, since discordance with absolute values may lead to misinterpretation of CBC data. Current Interpretive Data was last revised on 2017. Lymphocyte pct 6.4 % [facility] Comment: Interpretive Data Percent cell count reference ranges are not reported, since discordance with absolute values may lead to misinterpretation of CBC data. Current Interpretive Data was last revised on 2017. Monocyte pct 9.1 % [facility] Comment: Interpretive Data Percent cell count reference ranges are not reported, since discordance with absolute values may lead to misinterpretation of CBC data. Current Interpretive Data was last revised on 2017. Eosinophil pct 2.1 % [facility] Comment: Interpretive Data Percent cell count reference ranges are not reported, since discordance with absolute values may lead to misinterpretation of CBC data. Current Interpretive Data was last revised on 2017. Basophil pct 0.7 % [facility] Comment: Interpretive Data Percent cell count reference ranges are not reported, since discordance with absolute values may lead to misinterpretation of CBC data. Current Interpretive Data was last revised on 2017. Blood 08/20/2024 1:06 PM COATING MIXER TENDER 08/20/2024 1:06 PM COATING MIXER TENDER us Alcides KNAPP LAB BLOOD ORDERABLES Final Result LAINE TOWNSEND [address] Department [place] [address] * (ABNORMAL) CBC with auto differential (08/20/2024 1:06 PM COATING MIXER TENDER) WBC 12.3(H) 3.8 - 9.9 K/cumm Hgb 6.3(C) 11.9 - 15.5 g/dL [facility] Comment:Critical result call ed to and read back by MARCIAL CASTLE on 08 20 2024 at 1344 to [facility]. Hct 21.7(L) 35.6 - 45.5 % [facility] Plt 588(H) 150 - 400 K/cumm [facility] MPV 8.7(L) 9.1 - 12.3 fL [facility] CH RBC 2.05(L) 3.90 - 5.20 M/cumm [facility] CH MCV 105.9(H) 81.3 - 96.4 fL [facility] MCH 30.7 27.1 - 33.3 pg [facility] MCHC 29.0(L) 32.3 - 35.7 g/dL [facility] CH RDW CV 18.8(H) 11.1 - 14.9 % [facility] RDW SD 72.9(H) 35.7 - 48.1 fL [facility] NRBC abs 0.00 0.00 - 0.01 K/cumm [facility] Blood 08/20/2024 1:06 PM COATING MIXER TENDER 08/20/2024 1:06 PM COATING MIXER TENDER Alcides KNAPP LAB BLOOD ORDERABLES Final Result [facility] [address] Department [place] [address] * Magnesium (08/20/2024 1:06 PM COATING MIXER TENDER) [facility] Magnesium 1.9 1.4 - 2.5 mg/dL Blood 08/20/2024 1:06 PM COATING MIXER TENDER 08/20/2024 1:06 PM COATING MIXER TENDER Alcides KNAPP LAB BLOOD ORDERABLES Final Result Performing Organization Address [facility]/ZIP Co de Phone Number [facility] [address] Department [place] [address] * (ABNORMAL) Comprehensive metabolic panel (08/20/2024 1:06 PM COATING MIXER TENDER) Sodium 134(L) 135 - 145 mmol/L Potassium, pl 3.0(L) 3.3 - 4.9 mmol/L [facility] Chloride 90(L) 97 - 110 mmol/L [facility] [...] Units/L [facility] Blood 08/20/2024 1:06 PM COATING MIXER TENDER 08/20/2024 1:06 PM COATING MIXER TENDER Alcides KNAPP LAB BLOOD ORDERABLES Final Result Performing Organization Address [facility]/ZIP Co de Phone Number LAINE [address] Department [place] [address] * ECG 12 lead (08/20/2024 12:45 PM COATING MIXER TENDER) 08/20/2024 12:4 5 PM COATING MIXER TENDER Narrative [facility] - 08/20/2024 7:49 PM COATING MIXER TENDER Vent Rate: 117 bpm RR Interval: 511 msec DE Interval: 0 msec QRS Duration: 116 msec QT Interval: 361 msec QTC Interval: 430 msec P-R-T [place]: 0 - 8 - 210 degrees IMPRESSION: ATRIAL FIBRILLATION WITH RAPID VENTRICULAR RESPONSE MODERATE INTRAVENTRICULAR CONDUCTION DELAY [110+ ms QRS DURATION] ST DEVIATION AND MODERATE T-WAVE ABNORMALITY, CONSIDER LATERAL ISCHEMIA [-0.1+ mV T-WAVE IN I/aVL/V5/V6] ABNORMAL ECG Electronically Signed By: Dr. Noelle Joiner [facility] us Alcides KNAPP ECG ORDERABLES Final Result [facility] No Paper Just Vapor [facility] * (ABNORMAL) Differential, auto (08/02/2024 5:45 AM COATING MIXER TENDER) Neutrophil abs 8.3(H) 1.5 - 6.5 K/cumm Imm gran abs 0.7(H) 0.0 - 0.1 K/cumm [facility] Lymphocyte abs 1.1 0.8 - 3.3 K/cumm [facility] Monocyte abs 1.9(H) 0.2 - 0.8 K/cumm [facility] Eosinophil abs 0.4 0.0 - 0.5 K/cumm [facility] Basophil abs 0.1 0.0 - 0.1 K/cumm [facility] Neutrophil pct 67.1 % [facility] Comment: Interpretive Data Percent cell count reference ranges are not reported, since discordance with absolute values may lead to misinterpretation of CBC data. Current Interpretive Data was last revised on 2017. Imm gran pct 5.3 % [facility] Comment: Interpretive Data Percent cell count reference ranges are not reported, since discordance with absolute values may lead to misinterpretation of CBC data. Current Interpretive Data was last revised on 2017. Lymphocyte pct 8.5 % [facility] Comment: Interpretive Data Percent cell count reference ranges are not reported, since discordance with absolute values may lead to misinterpretation of CBC data. Current Interpretive Data was last revised on 2017. Monocyte pct 15.6 % [facility] Comment: Interpretive Data Percent cell count reference ranges are not reported, since discordance with absolute values may lead to misinterpretation of CBC data. Current Interpretive Data was last revised on 2017. Eosinophil pct 2.8 % [facility] Comment: Interpretive Data Percent cell count reference ranges are not reported, since discordance with absolute values may lead to misinterpretation of CBC data. Current Interpretive Data was last revised on 2017. Basophil pct 0.7 % [facility] Comment: Interpretive Data Percent cell count reference ranges are not reported, since discordance with absolute values may lead to misinterpretation of CBC data. Current Interpretive Data was last revised on 2017. Blood 08/02/2024 5:45 AM COATING MIXER TENDER 08/02/2024 6:22 AM COATING MIXER TENDER us Padmini Mason NP LAB BLOOD ORDERABLES nal Result [facility] [address] Department [place] [address] * (ABNORMAL) CBC with auto differential (08/02/2024 5:45 AM COATING MIXER TENDER) WBC 12.4(H) 3.8 - 9.9 K/cumm Hgb 7.5(L) 11.9 - 15.5 g/dL [facility] Hct 28.7(L) 35.6 - 45.5 % [facility] Plt 402(H) 150 - 400 K/cumm [facility] MPV 11.2 9.1 - 12.3 fL [facility] RBC 2.53(L) 3.90 - 5.20 M/cumm [facility] MCV 113.4(H) 81.3 - 96.4 fL [facility] MCH 29.6 27.1 - 33.3 pg [facility] MCHC 26.1(L) 32.3 - 35.7 g/dL [facility] RDW CV 20.7(H) 11.1 - 14.9 % [facility] RDW SD 85.8(H) 35.7 - 48.1 fL [facility] NRBC abs 0.08(H) 0.00 - 0.01 K/cumm [facility] Blood 08/02/2024 5:45 AM COATING MIXER TENDER 08/02/2024 6:22 AM COATING MIXER TENDER Padmini Mason CONTRACT MODELER LAB BLOOD ORDERABLES Fi nal Result Performing Organization Address [facility]/ZIP Co de Phone Number [facility] [address] Department [place] [address] * (ABNORMAL) eGFR (08/01/2024 6:03 AM COATING MIXER TENDER) eGFR 4(L) >=60 mL/min/1. 73 m2 Comment: [...] last reviewed 2021. Blood 08/01/2024 6:03 AM COATING MIXER TENDER 08/01/2024 6:37 AM COATING MIXER TENDER Tanisha Winter CONTRACT MODELER LAB BLOOD ORDERABLES Final Resul t Performing Organization Address [facility]/ZIP Co de Phone Number [facility] [address] Department [place] [address] * (ABNORMAL) Basic metabolic panel (08/01/2024 6:03 AM COATING MIXER TENDER) Sodium 136 135 - 145 mmol/L Potassium, pl 3.9 3.3 - 4.9 mmol/L [facility] Chloride 95(L) 97 - 110 mmol/L [facility] CH CO2 22 22 - 32 mmol/L [facility] Anion gap 19(H) 2 - 15 mmol/L [facility] CH BUN 66(H) 6 - 25 mg/dL [facility] Creatinine 9.73(H) 0.60 - 1.10 mg/dL [facility] Glucose 90 70 - 199 mg/dL [facility] Comment: [...] 2022. Calcium 9.1 8.5 - 10.3 mg/dL [facility] Blood 08/01/2024 6:03 AM COATING MIXER TENDER 08/01/2024 6:37 AM COATING MIXER TENDER Tanisha Winter NP LAB BLOOD ORDERABLES Final Resul t LAINE TOWNSEND [address] Department [place] [address] * (ABNORMAL) eGFR (07/31/2024 8:40 AM COATING MIXER TENDER) eGFR 4(L) >=60 mL/min/1. 73 m2 Comment: [...] last reviewed 2021. Blood 07/31/2024 8:40 AM COATING MIXER TENDER 07/31/2024 9:42 AM COATING MIXER TENDER Tanisha Winter NP LAB BLOOD ORDERABLES Final Resul t [facility] [address] Department [place] [address] * (ABNORMAL) Basic metabolic panel (07/31/2024 8:40 AM COATING MIXER TENDER) Sodium 139 135 - 145 mmol/L Potassium, pl 3.3 3.3 - 4.9 mmol/L [facility] Chloride 95(L) 97 - 110 mmol/L [facility] CH CO2 22 22 - 32 mmol/L [facility] Anion gap 22(H) 2 - 15 mmol/L [facility] BUN 62(H) 6 - 25 mg/dL [facility] Creatinine 9.53(H) 0.60 - 1.10 mg/dL [facility] Glucose 85 70 - 199 mg/dL [facility] Comment: Interpretive Data Fasting glucose >/= [...] Calcium 9.4 8.5 - 10.3 mg/dL [facility] Blood 07/31/2024 8:40 AM COATING MIXER TENDER 07/31/2024 9:42 AM COATING MIXER TENDER us Tanisha Winter CONTRACT MODELER LAB BLOOD ORDERABLES Final Resul t Performing Organization Address [facility] Co de Phone Number LAINE [address] Department of Cig[facility] [place], [place] [id number] * (ABNORMAL) eGFR (07/28/2024 4:32 AM COATING MIXER TENDER) eGFR 5(L) >=60 mL/min/1. 73 m2 Comment: [...] last reviewed 2021. Blood 07/28/2024 4:32 AM COATING MIXER TENDER 07/28/2024 4:57 AM COATING MIXER TENDER us Nga Dumont MD LAB BLOOD ORDERABL ES Final Result Performing Organization Address [facility]/ZIP Co de Phone Number LAINE TOWNSEND [address] Department of Laboratories [place], [place] [id number] * (ABNORMAL) Differential, auto (07/28/2024 4:32 AM COATING MIXER TENDER) Neutrophil abs 7.5(H) 1.5 - 6.5 K/cumm Imm gran abs 0.7(H) 0.0 - 0.1 K/cumm [facility] Lymphocyte abs 1.0 0.8 - 3.3 K/cumm [facility] Monocyte abs 1.5(H) 0.2 - 0.8 K/cumm [facility] Eosinophil abs 0.2 0.0 - 0.5 K/cumm [facility] Basophil abs 0.1 0.0 - 0.1 K/cumm [facility] Neutrophil pct 68.9 % [facility] Comment: Interpretive Data Percent cell count reference ranges are not reported, since discordance with absolute values may lead to misinterpretation of CBC data. Current Interpretive Data was last revised on 2017. Imm gran pct 5.9 % [facility] Comment: Interpretive Data Percent cell count reference ranges are not reported, since discordance with absolute values may lead to misinterpretation of CBC data. Current Interpretive Data was last revised on 2017. Lymphocyte pct 9.0 % [facility] Comment: Interpretive Data Percent cell count reference ranges are not reported, since discordance with absolute values may lead to misinterpretation of CBC data. Current Interpretive Data was last revised on 2017. Monocyte pct 13.5 % [facility] Comment: Interpretive Data Percent cell count reference ranges are not reported, since discordance with absolute values may lead to misinterpretation of CBC data. Current Interpretive Data was last revised on 2017. Eosinophil pct 1.6 % [facility] Comment: Interpretive Data Percent cell count reference ranges are not reported, since discordance with absolute values may lead to misinterpretation of CBC data. Current Interpretive Data was last revised on 2017. Basophil pct 1.1 % [facility] Comment: Interpretive Data Percent cell count reference ranges are not reported, since discordance with absolute values may lead to misinterpretation of CBC data. Current Interpretive Data was last revised on 2017. Blood 07/28/2024 4:32 AM COATING MIXER TENDER 07/28/2024 4:57 AM COATING MIXER TENDER us Nga Dumont MD LAB BLOOD ORDERABL ES Final Result LAINE TOWNSEND [address] Department [place] [address] * (ABNORMAL) CBC with auto differential (07/28/2024 4:32 AM COATING MIXER TENDER) WBC 11.0(H) 3.8 - 9.9 K/cumm Hgb 9.5(L) 11.9 - 15.5 g/dL [facility] Hct 32.8(L) 35.6 - 45.5 % [facility] Plt 353 150 - 400 K/cumm [facility] CH MPV 11.6 9.1 - 12.3 fL [facility] RBC 3.33(L) 3.90 - 5.20 M/cumm [facility] CH MCV 98.5(H) 81.3 - 96.4 fL [facility] CH MCH 28.5 27.1 - 33.3 pg [facility] CH MCHC 29.0(L) 32.3 - 35.7 g/dL [facility] CH RDW CV Not Measured 11.1 - 14.9 % [facility] RDW SD Not Measured 35.7 - 48.1 fL [facility] NRBC abs 0.12(H) 0.00 - 0.01 K/cumm [facility] Blood 07/28/2024 4:32 AM COATING MIXER TENDER 07/28/2024 4:57 AM COATING MIXER TENDER us Nga Dumont MD LAB BLOOD ORDERABL ES Final Result [facility] [address] [place] [address] * Phosphorus (07/28/2024 4:32 AM COATING MIXER TENDER) Pathologist [facility] Phosphorus, pl 4.4 2.3 - 4.5 mg/dL Blood 07/28/2024 4:32 AM COATING MIXER TENDER 07/28/2024 4:57 AM COATING MIXER TENDER us Waqas Garcia MD LAB BLOOD ORDERABLES Final Resu lt [facility] [address] Department [place] [address] * (ABNORMAL) Comprehensive metabolic panel (07/28/2024 4:32 AM COATING MIXER TENDER) Sodium 140 135 - 145 mmol/L Potassium, [...] Units/L [facility] Blood 07/28/2024 4:32 AM COATING MIXER TENDER 07/28/2024 4:57 AM COATING MIXER TENDER us Nga Dumont MD LAB [place]LOOD [place] [address] [address] Department [place] [address] * XR Kub (07/27/2024 10:38 AM COATING MIXER TENDER) Anatomical Region Laterality Modality Body, Abdomen N/A Computed Radiogr aphy 07/27/2024 10:4 8 AM COATING MIXER TENDER Impressions 07/27/2024 10:48 AM COATING MIXER TENDER Findings/impression: Limited examination given technique. Nonobstructive bowel gas pattern. Right double-J ureteral stent appears appropriately positioned. Percutaneous catheter terminating in the pelvis likely represents peritoneal dialysis catheter. No acute osseous abnormality. Lung bases are unremarkable. Electronically signed by: Peter Porter II, D.O. Narrative 07/27/2024 10:48 AM COATING MIXER TENDER EXAMINATION: XR KUB DATE: 07/27/2024 10:25 AM [...] Result * (ABNORMAL) eGFR (07/26/2024 11:38 AM COATING MIXER TENDER) eGFR 4(L) >=60 mL/min/1. 73 m2 Comment: [...] reviewed 2021. Blood 07/26/2024 11:3 8 AM COATING MIXER TENDER 07/26/2024 12:44 PM COATING MIXER TENDER us Nga Dumont MD LAB BLOOD ORDERABL ES Final Result [facility] [address] Department [place] [address] * (ABNORMAL) Differential, auto (07/26/2024 11:38 AM COATING MIXER TENDER) Neutrophil abs 11.4(H) 1.5 - 6.5 K/cumm Imm gran abs 1.1(H) 0.0 - 0.1 K/cumm [facility] Lymphocyte abs 0.7(L) 0.8 - 3.3 K/cumm [facility] Monocyte abs 1.6(H) 0.2 - 0.8 K/cumm [facility] Eosinophil abs 0.2 0.0 - 0.5 K/cumm [facility] Basophil abs 0.1 0.0 - 0.1 K/cumm [facility] Neutrophil pct 75.7 % [facility] Comment: Interpretive Data Percent cell count reference ranges are not reported, since discordance with absolute values may lead to misinterpretation of CBC data. Current Interpretive Data was last revised on 2017. Imm gran pct 6.9 % [facility] Comment: Interpretive Data Percent cell count reference ranges are not reported, since discordance with absolute values may lead to misinterpretation of CBC data. Current Interpretive Data was last revised on 2017. Lymphocyte pct 4.9 % [facility] Comment: Interpretive Data Percent cell count reference ranges are not reported, since discordance with absolute values may lead to misinterpretation of CBC data. Current Interpretive Data was last revised on 2017. Monocyte pct 10.7 % [facility] Comment: Interpretive Data Percent cell count reference ranges are not reported, since discordance with absolute values may lead to misinterpretation of CBC data. Current Interpretive Data was last revised on 2017. Eosinophil pct 1.1 % [facility] Comment: Interpretive Data Percent cell count reference ranges are not reported, since discordance with absolute values may lead to misinterpretation of CBC data. Current Interpretive Data was last revised on 2017. Basophil pct 0.7 % [facility] Comment: Interpretive Data Percent cell count reference ranges are not reported, since discordance with absolute values may lead to misinterpretation of CBC data. Current Interpretive Data was last revised on 2017. Blood 07/26/2024 11:3 8 AM COATING MIXER TENDER 07/26/2024 12:44 PM COATING MIXER TENDER us Nga Dumont MD LAB BLOOD ORDERABL ES Final Result [facility] [address] Department [place] [address] * (ABNORMAL) CBC with auto differential (07/26/2024 11:38 AM COATING MIXER TENDER) WBC 15.1(H) 3.8 - 9.9 K/cumm Hgb 10.2(L) 11.9 - 15.5 g/dL [facility] Hct 34.9(L) 35.6 - 45.5 % [facility] Plt 304 150 - 400 K/cumm [facility] MPV 12.9(H) 9.1 - 12.3 fL [facility] RBC 3.54(L) 3.90 - 5.20 M/cumm [facility] MCV 98.6(H) 81.3 - 96.4 fL [facility] MCH 28.8 27.1 - 33.3 pg [facility] MCHC 29.2(L) 32.3 - 35.7 g/dL [facility] RDW CV 27.0(H) 11.1 - 14.9 % [facility] RDW SD 92.1(H) 35.7 - 48.1 fL [facility] NRBC abs 0.21(H) 0.00 - 0.01 K/cumm [facility] Blood 07/26/2024 11:3 8 AM COATING MIXER TENDER 07/26/2024 12:44 PM COATING MIXER TENDER us Nga Dumont MD LAB BLOOD ORDERABL ES Final Result [facility] [address] Department [place] [address] * (ABNORMAL) Comprehensive metabolic panel (07/26/2024 11:38 AM COATING MIXER TENDER) Sodium 138 135 - 145 mmol/L Potassium, [...] [facility] Blood 07/26/2024 11:3 8 AM COATING MIXER TENDER 07/26/2024 12:44 PM COATING MIXER TENDER us Nga Dumont MD LAB BLOOD ORDERABL ES Final Result Performing Organization Address [facility] de Phone Number LAINE TOWNSEND [address] [facility] [place] [address] * (ABNORMAL) CBC with auto differential (07/25/2024 8:10 AM COATING MIXER TENDER) WBC 18.6(H) 3.8 - 9.9 K/cumm Hgb [...] K/cumm [facility] Blood 07/25/2024 8:10 AM COATING MIXER TENDER 07/25/2024 8:32 AM COATING MIXER TENDER us Sudheer Escobar MD LAB BLOOD ORDERABLES Edited R esult - Final Performing Organization Address City/[facility]/ZIP Co de Phone Number [facility] [address] Department Cig[employer] [place], [place] [id number] * (ABNORMAL) Manual Differential (07/25/2024 8:10 AM COATING MIXER TENDER) Differential Manual Cells Counted 100 [facility] Neutrophil abs 16.6(H) 1.5 - 6.5 K/cumm [facility] Lymphocyte abs 0.6(L) 0.8 - 3.3 K/cumm [facility] Monocyte abs 1.5(H) 0.2 - 0.8 K/cumm [facility] Neutrophil pct 89.0 % [facility] Comment: Interpretive Data Percent cell count reference ranges are not reported, since discordance with absolute values may lead to misinterpretation of CBC data. Current Interpretive Data was last revised on 2017. Lymphocyte pct 3.0 % [facility] Comment: Interpretive Data Percent cell count reference ranges are not reported, since discordance with absolute values may lead to misinterpretation of CBC data. Current Interpretive Data was last revised on 2017. Monocyte pct 8.0 % [facility] Comment: Interpretive Data Percent cell count reference ranges are not reported, since discordance with absolute values may lead to misinterpretation of CBC data. Current Interpretive Data was last revised on 2017. RBC morphology Consistent with RBC Indicies [facility] Platelet estimate #A#CAC [facility] Blood 07/25/2024 8:10 AM COATING MIXER TENDER 07/25/2024 8:32 AM COATING MIXER TENDER Sudheer Escobar MD LAB BLOOD ORDERABLES Final Re sult [facility] [address] Department [place] [address] * Type and screen (07/25/2024 8:10 AM COATING MIXER TENDER) Pathologist [facility] ABO Rh B Positive Arianna, indirect Negative [facility] Blood 07/25/2024 8:10 AM COATING MIXER TENDER 07/25/2024 8:36 AM COATING MIXER TENDER Narrative [facility] - 07/25/2024 9:19 AM COATING MIXER TENDER Has the patient had Daratumumab or Isatuximab in the past 6 months?->Unknown Marilyn Martinez NP LAB BLOOD BANK TANYA T ORDERABLES Final Result [facility] [place] [address] Department [place] [address] * (ABNORMAL) eGFR (07/24/2024 1:46 AM COATING MIXER TENDER) eGFR 4(L) >=60 mL/min/1. 73 m2 Comment: [...] last reviewed 2021. Blood 07/24/2024 1:46 AM COATING MIXER TENDER 07/24/2024 2:13 AM COATING MIXER TENDER Marilyn Martinez NP LAB BLOOD ORDERABL ES Final Result [facility] [place] [address] Department [place] [address] * (ABNORMAL) CBC without differential (07/24/2024 1:46 AM COATING MIXER TENDER) WBC 18.7(H) 3.8 - 9.9 K/cumm Hgb 9.5(L) 11.9 - 15.5 g/dL [facility] Hct 30.0(L) 35.6 - 45.5 % [facility] Plt 234 150 - 400 K/cumm [facility] MPV 12.1 9.1 - 12.3 fL [facility] RBC 3.24(L) 3.90 - 5.20 M/cumm [...] K/cumm [facility] Blood 07/24/2024 1:46 AM COATING MIXER TENDER 07/24/2024 2:09 AM COATING MIXER TENDER Marilyn Martinez NP LAB BLOOD ORDERABL ES Final Result Performing Organization Address [facility] de Phone Number LAINE [address] [facility] [place] [address] * Phosphorus (07/24/2024 1:46 AM COATING MIXER TENDER) Phosphorus, pl 3.4 2.3 - 4.5 mg/dL Blood 07/24/2024 1:46 AM COATING MIXER TENDER 07/24/2024 2:13 AM COATING MIXER TENDER Marilyn Martinez NP LAB BLOOD ORDERABL ES Final Result Performing Organization Address [facility] de Phone Number [facility] [address] [facility] [place] [address] * Magnesium (07/24/2024 1:46 AM COATING MIXER TENDER) Magnesium 2.5 1.4 - 2.5 mg/dL Blood 07/24/2024 1:46 AM COATING MIXER TENDER 07/24/2024 2:13 AM COATING MIXER TENDER Marilyn Martinez NP LAB BLOOD ORDERABL ES Final Result Performing Organization Address [facility] Co de Phone Number [facility] [address] [facility] [place] [address] * (ABNORMAL) Basic metabolic panel (07/24/2024 1:46 AM COATING MIXER TENDER) Sodium 135 135 - 145 mmol/L Potassium, pl 3.5 3.3 - 4.9 mmol/L [facility] Chloride 91(L) 97 - 110 mmol/L [facility] CO2 21(L) 22 - 32 mmol/L [facility] Anion gap 23(H) 2 - 15 mmol/L [facility] BUN 53(H) 6 - 25 mg/dL [facility] [...] 9.4 8.5 - 10.3 mg/dL [facility] Blood 07/24/2024 1:46 AM COATING MIXER TENDER 07/24/2024 2:13 AM COATING MIXER TENDER Marilyn Martinez NP LAB BLOOD ORDERABL ES Final Result [facility] [address] Department [place] [address] * (ABNORMAL) eGFR (07/23/2024 2:02 AM COATING MIXER TENDER) eGFR 5(L) >=60 mL/min/1. 73 m2 Comment: [...] last reviewed 2021. Blood 07/23/2024 2:02 AM COATING MIXER TENDER 07/23/2024 2:16 AM COATING MIXER TENDER Tanika KNAPP LAB BLOOD ORDERABLES F inal Result Performing Organization Address [facility] Co de Phone Number [facility] [address] [place] [address] * (ABNORMAL) Protime-INR (07/23/2024 2:02 AM COATING MIXER TENDER) PT 19.3(H) 9.7 - 13.0 sec INR 1.77(H) 0.90 - 1.20 [facility] Comment: Interpretive data Oral anticoagulant therapeutic ranges: Venous thromboembolism prophylaxis or treatment: 2.0-3.0 CARDIOLOGY Standard range: 2.0-3.0 High-intensity range: 2.5-3.5 Refer to indication-specific guidelines for appropriate target ranges for prosthetic heart valve replacement. Current interpretive data was last revised on 2019. Blood 07/23/2024 2:02 AM COATING MIXER TENDER 07/23/2024 2:14 AM COATING MIXER TENDER Marilyn Martinez NP LAB BLOOD ORDERABL ES Final Result Performing Organization Address [facility] Co de Phone Number [facility] [address] [facility] General Assembly [place], [place] [id number] * (ABNORMAL) CBC without differential (07/23/2024 2:02 AM COATING MIXER TENDER) Pathologist [facility] WBC 18.3(H) 3.8 - 9.9 K/cumm Hgb 9.2(L) 11.9 - 15.5 g/dL [facility] Hct 26.7(L) 35.6 - 45.5 % [facility] Plt 236 150 - 400 K/cumm [facility] MPV 12.6(H) 9.1 - 12.3 fL [facility] RBC 3.09(L) 3.90 - 5.20 M/cumm [...] K/cumm [facility] Blood 07/23/2024 2:02 AM COATING MIXER TENDER 07/23/2024 2:14 AM COATING MIXER TENDER Marilyn Martinez NP LAB BLOOD ORDERABL ES Final Result Performing Organization Address [facility] Co de Phone Number [facility] [address] [facility] [place] [address] * Phosphorus (07/23/2024 2:02 AM COATING MIXER TENDER) [facility] Phosphorus, pl 3.0 2.3 - 4.5 mg/dL Blood 07/23/2024 2:02 AM COATING MIXER TENDER 07/23/2024 2:16 AM COATING MIXER TENDER Marilyn Martinez NP LAB BLOOD ORDERABL ES Final Result Performing Organization Address [facility]/ZIP Co de Phone Number [facility] [address] Department [place] [address] * Magnesium (07/23/2024 2:02 AM COATING MIXER TENDER) Magnesium 2.4 1.4 - 2.5 mg/dL Blood 07/23/2024 2:02 AM COATING MIXER TENDER 07/23/2024 2:16 AM COATING MIXER TENDER Marilyn Martinez NP LAB BLOOD ORDERABL ES Final Result Performing Organization Address [facility]/ZIP Co de Phone Number [facility] [address] [place] [address] * (ABNORMAL) Basic metabolic panel (07/23/2024 2:02 AM COATING MIXER TENDER) Pathologist [facility] Sodium 135 135 - 145 mmol/L Potassium, pl 3.7 3.3 - 4.9 mmol/L [facility] Chloride 92(L) 97 - 110 mmol/L [facility] CH CO2 18(L) 22 - 32 mmol/L [facility] Anion gap 25(H) 2 - 15 mmol/L [facility] BUN 50(H) 6 - 25 mg/dL [facility] Creatinine 8.58(H) 0.60 - 1.10 mg/dL [facility] Glucose 115 70 - 199 mg/dL [facility] Comment: Interpretive Data Fasting glucose >/= [...] 2022. Calcium 9.1 8.5 - 10.3 mg/dL [facility] Blood 07/23/2024 2:02 AM COATING MIXER TENDER 07/23/2024 2:16 AM COATING MIXER TENDER Marilyn Martinez NP LAB BLOOD ORDERABL ES Final Result Performing Organization Address [facility] Co de Phone Number [facility]INE [address] [place] [address] * Critical Care (07/22/2024 8:22 AM COATING MIXER TENDER) Narrative OfBlake abreu MD - 07/22/2024 8:22 AM COATING MIXER TENDER Marilyn Martinez NP 07/22/2024 4:47 PM Critical [...] plan with the patient's team and other medical/design and sales consultant staff. 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 73 m2 Comment: [...] last reviewed 2021. Blood 07/22/2024 5:41 AM COATING MIXER TENDER 07/22/2024 5:44 AM COATING MIXER TENDER us Tanika KNAPP LAB BLOOD ORDERABLES F inal Result [facility] [address] Department of Laboratories [place] [phone] * (ABNORMAL) CBC without differential (07/22/2024 5:41 AM COATING MIXER TENDER) WBC 19.5(H) 3.8 - 9.9 K/cumm Hgb 8.9(L) 11.9 - 15.5 g/dL [facility] Hct 25.8(L) 35.6 - 45.5 % [facility] Plt 241 150 - 400 K/cumm [facility] MPV 12.2 9.1 - 12.3 fL [facility] RBC 3.03(L) 3.90 - 5.20 M/cumm [facility] MCV 85.1 81.3 - 96.4 fL [facility] MCH 29.4 27.1 - 33.3 pg [facility] MCHC 34.5 32.3 - 35.7 g/dL [facility] RDW CV 16.3(H) 11.1 - 14.9 % [facility] RDW SD 47.0 35.7 - 48.1 fL [facility] NRBC abs 0.24(H) 0.00 - 0.01 K/cumm [facility] Blood 07/22/2024 5:41 AM COATING MIXER TENDER 07/22/2024 5:44 AM COATING MIXER TENDER Blair Noe [employer] LAB BLOOD ORDERABL ES Final Result Performing Organization Address [facility]/ZIP Co de Phone Number [facility] [address] [facility] [place] [address] * Phosphorus (07/22/2024 5:41 AM COATING MIXER TENDER) Phosphorus, pl 2.9 2.3 - 4.5 mg/dL Blood 07/22/2024 5:41 AM COATING MIXER TENDER 07/22/2024 5:44 AM COATING MIXER TENDER Marilyn Martinez NP LAB BLOOD ORDERABL ES Final Result Performing Organization Address [facility] de Phone Number [facility] [address] [place] [address] * Magnesium (07/22/2024 5:41 AM COATING MIXER TENDER) Pathologist [facility] Magnesium 2.5 1.4 - 2.5 mg/dL Blood 07/22/2024 5:41 AM COATING MIXER TENDER 07/22/2024 5:44 AM COATING MIXER TENDER Marilyn Martinez NP LAB BLOOD ORDERABL ES Final Result Performing Organization Address [facility] de Phone Number [facility] [address] [facility] [place] [address] * (ABNORMAL) Basic metabolic panel (07/22/2024 5:41 AM COATING MIXER TENDER) Sodium 132(L) 135 - 145 mmol/L Potassium, pl 4.0 3.3 - 4.9 mmol/L [facility] Chloride 91(L) 97 - 110 mmol/L [facility] CH CO2 18(L) 22 - 32 mmol/L [facility] Anion gap 23(H) 2 - 15 mmol/L [facility] BUN 50(H) 6 - 25 mg/dL [facility] Creatinine 8.41(H) 0.60 - 1.10 mg/dL [facility] Glucose 139 70 - 199 mg/dL [facility] Comment: Interpretive [...] 2022. Calcium 9.2 8.5 - 10.3 mg/dL [facility] Blood 07/22/2024 5:41 AM COATING MIXER TENDER 07/22/2024 5:44 AM COATING MIXER TENDER Marilyn Martinez NP LAB BLOOD ORDERABL ES Final Result Performing Organization Address [facility] Co de Phone Number [facility] [address] [place] [address] * Cell Differential, Body Fluid (07/22/2024 3:17 AM COATING MIXER TENDER) Total cells diffed 100 % Comment: Interpretive Data Unless otherwise specified, the reference range and other method performance specifications have not been established for CSF/Body Fluid tests. The test results should be integrated into the clinical context for interpretation. Current interpretive data was last revised on 2019. Neutrophils, fld 62 % [facility] Lymphs, fld 34 % [facility] Monocyte, fld 4 % [facility] Fluid 07/22/2024 3:17 AM COATING MIXER TENDER 07/22/2024 3:17 AM COATING MIXER TENDER Waqas Garcia MD LAB BODY FLUIDS AND STOOLS ORDE RABKAVEH Final Result Performing Organization Address [facility]/ZIP Co de Phone Number [facility]INE [address] Department of [employer] [place], [place] [phone] * Cell count w/rflx diff, body fluid (07/22/2024 3:17 AM COATING MIXER TENDER) Specimen type, fld Dialysate Color, fld Straw [...] on 2019. RBC, fld <2,000 /cumm [facility] Fluid 07/22/2024 3:17 AM COATING MIXER TENDER 07/22/2024 3:17 AM COATING MIXER TENDER us Waqas Garcia MD LAB BODY FLUIDS AND STOOLS STEPHANIA PELAYO Final Result [facility] [address] Department [place] [address] * (ABNORMAL) Urinalysis reflex to microscopic and culture Urine (07/22/2024 1:57 AM COATING MIXER TENDER) Color, ur Mitzi Yellow Clarity, ur Turbid(A) [...] tendency for uric acid stone formation. Source: [facility] Current Interpretive Data was last [...] be performed. [facility] Urine 07/22/2024 1:57 AM COATING MIXER TENDER 07/22/2024 2:05 AM COATING MIXER TENDER Blair Noe APRN LAB MICROBIOLOGY - GENERAL ORDERABLES Final Result Performing Organization Address [facility] Co de Phone Number [place] [address] [place] [address] * (ABNORMAL) Urinalysis, microscopic only (07/22/2024 1:57 AM COATING MIXER TENDER) WBC, ur >50(A) 0 - 5 /HPF RBC, ur >50(A) 0 - 2 /HPF [facility] Epithelial cells, squamous, ur 6-10(A) 0 - 5 /HPF [facility] Bacteria, ur Trace(A) [facility] Culture Reflex Comment Reflex to urine culture will be performed. [facility] Urine 07/22/2024 1:57 AM COATING MIXER TENDER 07/22/2024 2:05 AM COATING MIXER TENDER Blair Noe APRN LAB URINE ORDERABL ES Final Result Performing Organization Address [facility] de Phone Number [place] [address] [place] [address] * Urine culture Urine (07/22/2024 1:57 AM COATING MIXER TENDER) Report Final Report: No growth Comment:Testing performed by : [facility], [address] [facility] [place] [address] Urine 07/22/2024 1:57 AM COATING MIXER TENDER 07/22/2024 4:30 AM COATING MIXER TENDER Narrative [facility] - 07/23/2024 6:18 AM COATING MIXER TENDER Urine culture reflexed based upon urinalysis results. Testing performed by [facility] Microbiology Laboratory ([phone]) Blair Noe APRN LAB MICROBIOLOGY - GENERAL ORDERABLES Final Result Performing Organization Address [facility] Co de Phone Number [facility]INE KRISTIAN [address] [place] [address] * ECG 12 lead (07/22/2024 1:33 AM COATING MIXER TENDER) 07/22/2024 1:33 AM COATING MIXER TENDER Narrative [facility] - 07/22/2024 9:16 AM COATING MIXER TENDER Vent Rate: 118 bpm RR Interval: 505 msec DE Interval: 0 msec QRS Duration: 113 msec QT Interval: 354 msec QTC Interval: 424 msec P-R-T [place]: 0 - 54 - 211 degrees IMPRESSION: ATRIAL FIBRILLATION WITH RAPID VENTRICULAR RESPONSE MODERATE INTRAVENTRICULAR CONDUCTION DELAY [110+ ms QRS DURATION] ST DEVIATION AND MODERATE T-WAVE ABNORMALITY, CONSIDER LATERAL ISCHEMIA [-0.1+ mV T-WAVE IN I/aVL/V5/V6] ST DEVIATION AND MODERATE T-WAVE ABNORMALITY, CONSIDER INFERIOR ISCHEMIA [-0.1+ mV T-WAVE IN II/aVF] ABNORMAL ECG Electronically Signed By: Jennifer Carmichael MD us Blair Noe APRN ECG ORDERABLES [facility] Result [facility] * (ABNORMAL) CBC without differential (07/22/2024 12:51 AM COATING MIXER TENDER) WBC 20.0(H) 3.8 - 9.9 K/cumm Hgb [...] [facility] Blood 07/22/2024 12:5 1 AM COATING MIXER TENDER 07/22/2024 12:55 AM COATING MIXER TENDER Blair Noe APRN LAB BLOOD ORDERABL ES Final Result Performing Organization Address [facility] Co de Phone Number [facility] [address] Department [place] [address] * Blood culture Blood (07/21/2024 11:44 PM COATING MIXER TENDER) Report Final Report: No growth Comment:Testing performed by : [facility], [address] [facility], [place]., [address] Blood 07/21/2024 11:4 4 PM COATING MIXER TENDER 07/22/2024 6:05 AM COATING MIXER TENDER Narrative [facility] - 07/26/2024 7:00 AM COATING MIXER TENDER From a different site than #1. Collection->Peripheral [...] performance characteristics have been verified by the [facility]biology Laboratory. For questions about this culture, contact the Microbiology Laboratory at [phone]. Interpretive data was last revised on 24. Blair Noe APRN LAB MICROBIOLOGY - GENERAL ORDERABLES Final Result [facility] [address] Department [place] [address] * Blood culture Blood (07/21/2024 11:44 PM COATING MIXER TENDER) Report Final Report: No growth Comment:Testing performed by : [facility], [address] [facility], [place]., [address] Blood 07/21/2024 11:4 4 PM COATING MIXER TENDER 07/22/2024 6:05 AM COATING MIXER TENDER Narrative [facility] - 07/26/2024 7:00 AM COATING MIXER TENDER Collection->Peripheral 1. Blood cultures are incubated for [...] performance characteristics have been verified by the [facility]. For questions about this culture, contact the Microbiology Laboratory at [phone]. Interpretive data was last revised on 24. Blair Noe APRN LAB MICROBIOLOGY - GENERAL ORDERABLES Final Result [facility] [address] Department [place] [address] * CTA Abdomen Pelvis (07/21/2024 10:13 PM COATING MIXER TENDER) Anatomical Region Laterality Modality Body N/A Computed Tomogra phy 07/21/2024 10:0 8 PM COATING MIXER TENDER Impressions 07/22/2024 10:40 AM COATING MIXER TENDER 1. Rectal thickening, question for proctitis. Colonic [...] Superimposed consolidation not excluded. Stat report by [facility] Electronically signed by: Sulaiman Xie M.D. Narrative 07/22/2024 10:40 AM COATING MIXER TENDER STUDY DESCRIPTION: CTA ABDOMEN PELVIS TECHNIQUE: Axial, [...] Superimposed consolidation not excluded. Stat report by [facility] Electronically signed by: Sulaiman Xie M.D. Blair Noe APRN IM CT PROCEDURES Final Result * Check Sample (07/21/2024 8:16 PM COATING MIXER TENDER) ABO Rh B Positive [facility] OTHER 07/21/2024 8:16 PM COATING MIXER TENDER 07/21/2024 8:22 PM COATING MIXER TENDER us Blake Nava MD LAB BLOOD ORDERABLES Fi nal Result LAINE [address] [facility] Department [place] [address] * Critical Care (07/21/2024 7:48 PM COATING MIXER TENDER) Narrative Evert Pizarro MD - 07/21/2024 7:48 PM COATING MIXER TENDER Blair Noe APRN 07/22/2024 5:11 AM Critical [...] plan with the ICU team and other medical/design and sales consultant staff, making frequent assessments and decisions [...] Final Result * Lactate (07/21/2024 6:55 PM COATING MIXER TENDER) Lactate 0.9 0.7 - 2.0 mmol/L Blood 07/21/2024 6:55 PM COATING MIXER TENDER 07/21/2024 7:13 PM COATING MIXER TENDER Tanika Rochai PA LAB BLOOD ORDERABLES F inal Result [facility] [address] [employer] [place], [place] [phone] * Calcium, ionized, whole blood (07/21/2024 6:55 PM COATING MIXER TENDER) Ca, ionized, bld 4.60 4.50 - 5.10 mg/dL Blood 07/21/2024 6:55 PM COATING MIXER TENDER 07/21/2024 7:13 PM COATING MIXER TENDER Tanika De La Torre ND LAB BLOOD ORDERABLES F inal Result Performing Organization Address [facility] Co de Phone Number [facility] [address] [place] [address] * (ABNORMAL) eGFR (07/21/2024 6:55 PM COATING MIXER TENDER) eGFR 5(L) >=60 mL/min/1. 73 m2 Comment: [...] last reviewed 2021. Blood 07/21/2024 6:55 PM COATING MIXER TENDER 07/21/2024 7:13 PM COATING MIXER TENDER Tanika Rochai PA LAB BLOOD ORDERABLES F inal Result Performing Organization Address [facility] Co de Phone Number [facility] [address] [address] [facility] [place], [place] [id number] * (ABNORMAL) Thyroid Function [place] (07/21/2024 6:55 PM COATING MIXER TENDER) TSH 10.30(H) 0.30 - 4.20 mcIUnit/mL Blood 07/21/2024 6:55 PM COATING MIXER TENDER 07/21/2024 7:13 PM COATING MIXER TENDER Tanika De La Torre ND LAB BLOOD ORDERABLES F inal Result Performing Organization Address [facility] de Phone Number [facility] [place] [address] [place] [address] * Beta-hydroxybutyrate (07/21/2024 6:55 PM COATING MIXER TENDER) Beta-Hydroxybut yrate 0.2 <=0.5 mmol/L Blood 07/21/2024 6:55 PM COATING MIXER TENDER 07/21/2024 11:48 PM COATING MIXER TENDER Blair Negro Noe APRN LAB BLOOD ORDERABL ES Final Result Performing Organization Address [facility] de Phone Number [facility] [place] [address] [place] [address] * Infection Prevention MRSA Only (Staphylococcus aureus) PCR Nasal (07/21/2024 6:55 PM COATING MIXER TENDER) PCR Scrn, Methicillin resistant Staphylococcus aureus (MRSA) Not Detected Not Detected CH Comment: Interpretive Data Testing performed using Nucleic Acid Amplification with the [employer] microcaps Xpert MRSA NxG Assay. This assay detects target DNA from mecA, mecC and the SCCmec insertion site of Staphylococcus aureus using Real-Time PCR and has been cleared by the FDA. Performance characteristics have been verified by the [facility]. Current Interpretive Data was last revised on 2022 Nasal 07/21/2024 6:55 PM COATING MIXER TENDER 07/21/2024 7:12 PM COATING MIXER TENDER Tanikalisa Mccain Wil PA LAB MICROBIOLOGY - GEN ERAL ORDERABLES Final Result Performing Organization Address [facility] Co de Phone Number LAINE [address] [address] [facility] [place] [address] CH * aPTT (07/21/2024 6:55 PM COATING MIXER TENDER) aPTT 38 28 - 38 sec Comment: Interpretive Data Heparin therapeutic range: 66.0 - 100.0 seconds. Range based on correlation with therapeutic heparin activity range of 0.3 - 0.7 Units/mL. Current interpretive data was last revised on 2023. Blood 07/21/2024 6:55 PM COATING MIXER TENDER 07/21/2024 7:13 PM COATING MIXER TENDER Tanikalisa Mccain Wil PA LAB BLOOD ORDERABLES F inal Result Performing Organization Address [facility] de Phone Number LAINE [address] [address] [facility] [place] [address] * (ABNORMAL) Protime-INR (07/21/2024 6:55 PM COATING MIXER TENDER) PT 23.3(H) 9.7 - 13.0 sec INR 2.12(H) 0.90 - 1.20 [facility] Comment: Interpretive data Oral anticoagulant therapeutic ranges: Venous thromboembolism prophylaxis or treatment: 2.0-3.0 CARDIOLOGY Standard range: 2.0-3.0 High-intensity range: 2.5-3.5 Refer to indication-specific guidelines for appropriate target ranges for prosthetic heart valve replacement. Current interpretive data was last revised on 2019. Blood 07/21/2024 6:55 PM COATING MIXER TENDER 07/21/2024 7:13 PM COATING MIXER TENDER Tanika Adán Wil PA LAB BLOOD ORDERABLES F inal Result Performing Organization Address [facility]/State/ZIP Co de Phone Number LAINE [address] [address] Department [place] [address] * (ABNORMAL) CBC without differential (07/21/2024 6:55 PM COATING MIXER TENDER) WBC 20.4(H) 3.8 - 9.9 K/cumm Hgb 8.4(L) 11.9 - 15.5 g/dL [facility] Hct 24.2(L) 35.6 - 45.5 % [facility] Plt 230 150 - 400 K/cumm [facility] CH MPV 12.2 9.1 - 12.3 fL [facility] RBC 2.79(L) 3.90 - 5.20 M/cumm [facility] CH MCV 86.7 81.3 - 96.4 fL [facility] MCH 30.1 27.1 - 33.3 pg [facility] MCHC 34.7 32.3 - 35.7 g/dL [facility] CH RDW CV 14.7 11.1 - 14.9 % [facility] RDW SD 44.9 35.7 - 48.1 fL [facility] NRBC abs 0.17(H) 0.00 - 0.01 K/cumm [facility] Blood 07/21/2024 6:55 PM COATING MIXER TENDER 07/21/2024 7:13 PM COATING MIXER TENDER Tanika De La Torre PA LAB BLOOD ORDERABLES F inal Result [place] [address] Department of Laboratories [place], [place] [id number] * Type and screen (07/21/2024 6:55 PM COATING MIXER TENDER) ABO Rh B Positive Arianna, indirect Negative [facility] 07/21/2024 6:55 PM COATING MIXER TENDER 07/21/2024 7:22 PM COATING MIXER TENDER Narrative [facility] - 07/21/2024 8:22 PM COATING MIXER TENDER Has the patient had Daratumumab or Isatuximab in the past 6 months?->Unknown Marilyn Martinez NP LAB BLOOD BANK TANYA T ORDERABLES Final Result Performing Organization Address [facility] Co de Phone Number [place] [address] [facility] [place] [address] * T4, free (07/21/2024 6:55 PM COATING MIXER TENDER) Free T4 1.04 0.90 - 1.70 ng/dL Blood 07/21/2024 6:55 PM COATING MIXER TENDER 07/21/2024 7:13 PM COATING MIXER TENDER Tanika Rochai PA LAB BLOOD ORDERABLES F inal Result Performing Organization Address [facility] de Phone Number [place] [address] [place] [address] * Phosphorus (07/21/2024 6:55 PM COATING MIXER TENDER) Pathologist [facility] Phosphorus, pl 2.5 2.3 - 4.5 mg/dL Blood 07/21/2024 6:55 PM COATING MIXER TENDER 07/21/2024 7:13 PM COATING MIXER TENDER Tanika Mccain Wil PA LAB BLOOD ORDERABLES F inal Result Performing Organization Address [facility] Co de Phone Number LAINE [address] [place] [address] * Magnesium (07/21/2024 6:55 PM COATING MIXER TENDER) Pathologist [facility] Magnesium 2.2 1.4 - 2.5 mg/dL Blood 07/21/2024 6:55 PM COATING MIXER TENDER 07/21/2024 7:13 PM COATING MIXER TENDER Tanikalisa Mccain Wil PA LAB BLOOD ORDERABLES F inal Result LAINE [address] [place] [address] * (ABNORMAL) Hepatic function panel (07/21/2024 6:55 PM COATING MIXER TENDER) Pathologist [facility] Bilirubin, total 0.6 0.1 - 1.2 mg/dL Bilirubin, direct 0.3 0.1 - 0.3 mg/dL [facility] Protein, pl 5.8(L) 6.5 - 8.5 g/dL [facility] Albumin 3.5 3.5 - 5.0 g/dL [facility] Alk phos 115 40 - 130 Units/L [facility] ALT 26 7 - 45 Units/L [facility] AST 19 10 - 45 Units/L [facility] Blood 07/21/2024 6:55 PM COATING MIXER TENDER 07/21/2024 7:13 PM COATING MIXER TENDER Tanika KNAPP LAB [place]LOOD [place] [address] [address] Department [place] [address] * (ABNORMAL) Basic metabolic panel (07/21/2024 6:55 PM COATING MIXER TENDER) Pathologist [facility] Sodium 135 135 - 145 mmol/L Potassium, [...] mg/dL [facility] [place] Blood 07/21/2024 6:55 PM COATING MIXER TENDER 07/21/2024 7:13 PM COATING MIXER TENDER Tanika KNAPP LAB BLOOD ORDERABLES F inal Result LAINE [address] Department [place] [address] * X-ray chest 1 view (Portable) (07/21/2024 6:42 PM COATING MIXER TENDER) Anatomical Region Laterality Modality Body, Chest N/A Computed Radiogr aphy 07/21/2024 7:05 PM COATING MIXER TENDER Impressions 07/21/2024 7:05 PM COATING MIXER TENDER NO ACUTE PULMONARY CHANGE. Electronically signed by: Sulaiman Xie M.D. Narrative 07/21/2024 7:05 PM COATING MIXER TENDER EXAMINATION: XR CHEST 1 VIEW HISTORY: Atrial [...] Result * POCT glucose (07/21/2024 6:33 PM COATING MIXER TENDER) Glucose, POC 97 70 - 199 mg/dL Blood 07/21/2024 6:33 PM COATING MIXER TENDER 07/21/2024 6:33 PM COATING MIXER TENDER us Blake Nava MD LAB POCT ORDERABLES - D EVICE Final Result Performing Organization Address [facility] de Phone Number [place] [address] Department [place] [address] * XR Outside Reference (07/21/2024 12:00 AM COATING MIXER TENDER) Narrative [facility] - 08/28/2024 2:44 PM COATING MIXER TENDER This order has been auto-finalized and does not contain a result. us Not In File Miscellaneous IMG XR PROCEDURES Samina l Result Performing Organization Address [facility] de Phone Number [facility] * XR Outside Reference (07/19/2024 12:00 AM COATING MIXER TENDER) Narrative [facility] - 08/28/2024 2:46 PM COATING MIXER TENDER This order has been auto-finalized and does not contain a result. us Not In File Miscellaneous IMG XR PROCEDURES Samina l Result Performing Organization Address [facility] de Phone Number [facility] * US Outside Reference (07/19/2024 12:00 AM COATING MIXER TENDER) Narrative [facility] - 08/28/2024 2:48 PM COATING MIXER TENDER This order has been auto-finalized and does not contain a result. us Not In File Miscellaneous IMG US PROCEDURES Samina l Result Performing Organization Address [facility] Co de Phone Number [facility] * XR Outside Reference (07/18/2024 12:00 AM COATING MIXER TENDER) Narrative [facility] - 09/01/2024 10:16 AM COATING MIXER TENDER This order has been auto-finalized and does not contain a result. us Not In File Miscellaneous IMG XR PROCEDURES Samina l Result Performing Organization Address [facility] de Phone Number [facility] * XR Outside Reference (07/16/2024 12:00 AM COATING MIXER TENDER) Narrative [facility] - 09/01/2024 10:17 AM COATING MIXER TENDER This order has been auto-finalized and does not contain a result. us Not In File Miscellaneous IMG XR PROCEDURES Samina l Result Performing Organization Address [facility] de Phone Number [facility] * Cardiology Document Scan (07/15/2024 10:51 AM COATING MIXER TENDER) Anatomical Region Laterality Modality Other us Jia Beard NP CV CARDIAC SERVICES PROCEDUR ES Final Result * CT Body Outside Reference (07/14/2024 12:00 AM COATING MIXER TENDER) Narrative [facility] - 09/01/2024 10:56 AM COATING MIXER TENDER This order has been auto-finalized and does not contain a result. us Not In File Miscellaneous IMG CT PROCEDURES Samina barbosa Result Performing Organization Address [facility] Phone Number [facility] from Last 3 Months Insurance [facility] MEDICARE [facility] Address: [address] [address] [place] [address] [facility] Advance Directives For more information, please contact: [phone] * Full Code (Latest Code Status on File) Date Activated Date Inactivated Comments 08/21/2024 2:16 AM 08/26/2024 10:55 PM * Full Code Date Activated Date Inactivated Comments 07/25/2024 6:59 PM 08/04/2024 7:42 PM * Full Code Date Activated Date Inactivated Comments 07/21/2024 6:30 PM 07/25/2024 6:50 PM Care Teams Shared Services Representative Relationship Specialty Start Date End Date Porsche Becker NP [address] [facility] [address] [place] [address] PCP - General Nurse Practitioner 08/19/24 Mookie Dubois MD Referring Physician Nephrology 02/20/22 Abigail Dougherty, RN [address] [facility] [address] [place] [address] Manager Assurance 02/13/24 Jama Hoskins MD [address] [place] [address] Consulting Physician Cardiology 02/20/24
--- OUTSIDE RECORDS SUMMARY | 2024-10-03 00:51 | XMS_ITS ---
Author Organization [facility] [address] Address [address] [place] [address] Care Team Providers Care Plate Keeper Name Role Phone Mookie Dubois MD Unavailable [phone] Abigail Dougherty RN Unavailable [phone] Jama Hoskins MD Unavailable [phone] Porsche Becker NP Primary Care Provider [phone] Transplant Episode Kidney Candidate [facility] ([place], [place]) - [facility] Evaluation began on 02/20/2024 Marked as Active on 02/20/2024 Reason: Evaluation - Standard Kidney CoordinatorAbigail Dougherty RN Fax: N/A Email: N/A Scores Score Value Updated Exceptions/Reas ons CPRA Not available EPTS (Calc) 50 10/03/2024 Care Team Name Role Phone Fax Email Abigail Dougherty RN Kidney Coordinator [phone] N/A N/A Mookie Dubois MD Referring Physician [phone] N/A Gladys Charlton Hide Inspector [phone] N/A N/A Annalise Mays Primary Blind Slat Stapling Machine Operator N/A N/A N/A Events Pre-Transplant Referred: 02/12/2024 Evaluation began: 02/20/2024 Dialysis History Dialysis History Start End Type [facility] Center 09/30/2021 Peritoneal [facility] Dialysis [facility] Information Center Phone Fax Address [facility] [phone] [address]
--- NOTE | 2024-10-03 06:19 | WPDHPUPDATE1 ---
History and Physical Update Update Date/Time: 10/03/24 06:19 History and Physical has been reviewed, including an updated exam of the patient. There are NO changes in the patient's condition. Risks, benefits, and alternatives have been discussed and questions answered. Patient agrees to proceed with procedure.
--- NOTE | 2024-10-28 08:26 | P.HP_ITS ---
History of Present Illness History of Present Illness Consent: Risks, benefits, and alternatives have been discussed and questions answered. Patient agrees to proceed with procedure. Chief complaint: Right Ureteral Stone Narrative: Dory Lynn is a 63 year old female who had right ureteral stent placed in 07/[address] Garcia for 9mm ureteral stone and UTI. After mgmt. of UTI and cardiac clearance she now presents for definitive stone mgmt. with ESWL. Review of Systems Cardiovascular: Cardiovascular: Denies chest pain, Denies lightheadedness, Den ies palpitations and Denies dyspnea Respiratory: Respiratory: Denies dyspnea Gastrointestinal: Gastrointestinal: Denies diarrhea, Denies nausea and Denies vomiting Genitourinary: Genitourinary: Denies hematuria and Denies dysuria Endocrine: Endocrine: Denies palpitations [facility] Past Medical History Medical History (Updated 10/08/24 @ 12:40 by Porsche Becker, CLARISA) Radial head fracture Heart disease Thyroid disease Ureterolithiasis Afib Chronic kidney disease Acute renal failure Hypertension Surgical History Surgical History History of tonsillectomy History of Family History Family History Father CAD (coronary artery disease) Mother Hypertension Social History Social History Social History: The patient lives at home with her daughter and mother. 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 She used to smoke half a pack of cigarettes per day but quit smoking in 2018. She has 20 pack per year smoking history. She used to drink 1-2 beers a day every day but quit doing so several years ago. She now drinks 1 beer on rare occasion. She denies any illicit substance use. Primary care provider: Brandie Rhoades ACADEMIC TUTOR Code status: Full code Surrogate decision maker: Daughter Smoking packs per day: 0.5 Smoking cigarettes per day: 10.0 Years smoked: 40 Smoking pack-years: 20.00 Smoking status: Former smoker Tobacco type: cigarettes Smoking end date: 01/13/13 Alcohol intake: current Drinks per week: 1 Substance use: unknown Do You Feel Safe in your Home?: Yes Lack of Transportation: No Lack of Food: Never True Current Housing: I Have Housing Concerned About Future Housing: No Difficulty Paying Gas/Electric Bills: No Difficulty Paying for Meds: No Currently Unemployed: No Education: Decline to Answer Difficulty w/ Childcare or Family Care: No Living arrangements: with family Additional living arrangements comments: MOTHER AND DAUGHTER Spiritual care concerns: No Agree to blood products: Yes Meds Home Medications and Allergies Home Medications ?Medication ?Instructions ?Recorded ?Confirmed ?Type vitamin B complex-vitamin C-folic 1 tablet PO DAILY #90 tabs 11/20/22 10/08/24 Rx acid 0.8 mg tablet (Nephro-Silvia) calcitriol 0.25 mcg capsule 0.5 mcg PO EVERY OTHER DAY 07/14/24 10/08/24 History furosemide 80 mg tablet 80 mg PO BID PRN edema 07/14/24 10/08/24 History gentamicin 0.1 % topical cream 1 applic topical DAILY 07/14/24 10/08/24 History levothyroxine 25 mcg tablet 25 mcg PO DAILY 07/14/24 10/08/24 History potassium chloride 10 mEq 10 meq PO DAILY 07/14/24 10/08/24 History tablet,extended release amiodarone 200 mg tablet 200 mg PO QAM 09/30/24 10/08/24 History apixaban 5 mg tablet (Eliquis) 5 mg PO BID 09/30/24 10/08/24 History metoprolol succinate 25 mg 25 mg PO HS 09/30/24 10/08/24 History tablet,extended release 24 hr midodrine 5 mg tablet 7.5 mg PO TID 09/30/24 10/08/24 History sevelamer carbonate 800 mg tablet 2,400 mg PO TID 09/30/24 10/08/24 History pantoprazole 40 mg tablet,delayed 40 mg PO DAILY 8 weeks #56 tabs 10/08/24 10/08/24 Rx release Allergies Allergy/AdvReac Type Severity Reaction Status Date / Time PHILIP Inhibitors Allergy Severe Swelling Verified 10/08/24 10:37 of Lip/Tongue/Throat azithromycin Allergy Severe Dyspnea / Verified 10/08/24 10:37 SOB Exam Const: General: no acute distress Resp: Effort & Inspection: normal respiratory effort GI: Inspection: non-distended GI Palp: No abdominal tenderness and No Gua rding due to palpation present (GI) Auscultation: normal bowel sounds Assessment and Plan Assessment and plan (1) Ureterolithiasis: Code(s): N20.1 - Calculus of ureter Status: Acute Assessment and Plan: * Right ESWL
[2024-10-28 09:53] VITALS: BMI 39.1
--- NOTE | 2024-10-28 10:53 | PC.NURSE ---
Report to the Outpatient Waiting Room, entrance under the green pavilion located off [facility], at time ___1030____ on date ___10/31/2024___. Planned Procedure Time: ___1230 .? Time changes happen often and if your time is changed the preop area will call you the afternoon before. - You and your visitor will be asked to self-screen and do not enter if you have any COVID symptoms. Please call surgeon if you need to reschedule. - A mask is optional within the hospital at this time. Patients may have clear liquids (water, carbonated beverages, clear teas, apple juice) until 3 hours prior to surgery with a maximum of 20 ounces. - No food from midnight until time of surgery and no smoking, or chewing tobacco (or any form of nicotine). No chewing gum, candy or mints. Take only the following medications with a SIP of water on the morning of surgery: amiodarone, levothyroxine, metoprolol, midodrine___ DO NOT STOP ANY OF YOUR OTHER PRESCRIPTION MEDICATIONS PRIOR TO SURGERY EXCEPT THE FOLLOWING Hold all vitamins and supplements for 3 days per anesthesiologist. Medications to discontinue per physician hold Eliquis per physician Date to take last dose per physician Please no make-up, nail comoran, hairspray, perfume, deodorant, or body powder the day of surgery.? No jewelry (including any body piercings) or valuables the day of surgery, leave them at home.? Please take a shower or bath the night before, or the morning of, surgery with an antibacterial soap.? Wear comfortable, loose fitting clothing.? Children are encouraged to wear pajamas. - Jewelry must be removed prior to entering the operating room.? Rings and piercings that are not removed may be cut off. - The hospital will not accept responsibility for valuables.? - Please leave all valuables, including medications, at home the day of surgery. If you are going home after surgery, a licensed port cdl a driver must drive you home.? - NO public transportation without another adult if you receive anesthesia. - We recommend that an adult stay with you for 24 hours following discharge. - We also recommend that you do not drive, make important decision, drink alcoholic beverages, or take any drugs that were not prescribed by your health care provider for at least 24 hours after your discharge time. Follow any additional instructions given to you from your surgeon. Telephone instructions given to Sybil and asked if any additional questions and then verbalized understanding. Patient advised to call surgeon office or pre surgery nurse liaison [phone] if any additional questions.
[2024-10-31] VITALS (9 sets, daily range): BP systolic 97–155; BP diastolic 67–98; PULSE 61–83; RESP 10–18; TEMP 36.1–36.2; O2SAT 96–100
--- NOTE | ~2024-10-31 | CT_ITS ---
CLINICAL INDICATION: Right flank pain COMPARISON: 07/14/2024. TECHNIQUE: Multiple contiguous axial images of the abdomen and pelvis were performed without the admi nistration of intravenous contrast The dose-length product (DLP) was 422.02 mGy-cm. Automated exposure control and iterative reconstruction technique were employed. FINDINGS/OBSERVATIONS: Visualized lower thorax: The bilateral lung bases are clear. The heart is enlarged, without pericardial effusion. Small hiatal hernia is present. Liver: The liver demonstrates homogeneous attenuation and is not enlarged. Gallbladder and biliary system: The gallbladder is only minimally distended, and otherwise unremarkable. Pancreas: Limited evaluation of the pancreas secondary to the lack of intravenous contrast. Spleen: The spleen demonstrates homogeneous attenuation and is not enlarged. Kidneys: Right sided double-J stent is identified. Peritoneal dialysis catheter is identified. Simple abdominal fluid is present. Innumerable stones within the bilateral kidneys without discrete hydroureteronephrosis. Adrenal glands: Unremarkable. Gastrointestinal tract: Colonic diverticulosis without surrounding inflammatory change. Fecal stasis within the colon. Appendix: The appendix is not definitively visualized. However, no pericecal inflammatory change is identified suggest the presence of acute appendicitis. Vasculature: Unremarkable. Lymph nodes: No pathologically enlarged or morphologically suspicious lymph nodes within the retroperitoneum or at the root of the mesentery. Pelvic structures: The bladder is decompressed and contains the distal pigtail of the right-sided double-J stent. The uterus is anteverted and anteflexed, and otherwise unremarkable. Body wall and musculoskeletal: Induration of the soft tissues surrounding the umbilicus, with a small fat-containing umbilical herni a. Age-appropriate degenerative disease within the lumbosacral spine. IMPRESSION: Right-sided double-J stent in good position without hydronephrosis. The right ureteral calculus is no t visualized on the current examination. Innumerable nonobstructing stones within the atrophic bilateral kidneys. Peritoneal dialysis catheter in good position. Reviewed, dictated and finalized at location A. IMPRESSION: Right-sided double-J stent in good position without hydronephrosis. The right u reteral calculus is not visualized on the current examination. Innumerable nonobstructing stones within the atrophic bilateral kidneys. Peritoneal dialysis catheter in good position.
--- NOTE | ~2024-10-31 | XR_ITS ---
XR abdomen/kub 1V 10/31/2024 10:46 Indication: Kidney stones. Procedure: KUB Comparison: CT dated 07/14/2024 Findings: There are multiple bilateral renal stones. There is a right internal ureteral stent in expe cted position. There is a dialysis catheter in the pelvis. There are calcific densities in the right mid and upper abdomen which may represent bowel content or dystrophic calcification. Lung bases unrem arkable. Nonobstructive bowel gas pattern. Moderate colonic fecal loading. Impression: 1: Bilateral nephrolithiasis. Reviewed, dictated and finalized at location B. Impression: 1: Bilateral nephrolithiasis.
--- OUTSIDE RECORDS SUMMARY | 2024-10-31 00:48 | XMS_ITS | Referral Summary ---
Author Organization [facility] [address] [place] [address] [address] [place] [address] Care Team Providers Care Senior Publications Specialist Name Role Phone Mookie Dubois MD Unavailable [phone] Jama Hoskins MD Unavailable [phone] Porsche Becker NP Primary Care Provider [phone] Encounters Date Type Department Care Team Description 10/10/2024 Telephone [facility] [id number] [place] [address] Abigail Dougherty RN 10/10/2024 2:30 PM CDT Office Visit [facility] Cardiology [address] [place] [address] 162 [address] [place] [address] Lydia Lewis NP Need for lipid screening (Primary Dx); Hypotension due to hypovolemia; Persistent atrial fibrillation (HCC); Chronic anticoagulation; Preoperative cardiovascular examination 09/30/2024 Telephone [facility] Cardiology [address] [place] [address] [address] [place] [address] Jama Hoskins MD 09/05/2024 Telephone [facility] Cardiology [address] [place] [address] [address] [place] [address] Jama Hoskins MD 09/03/2024 Telephone [facility] [address] [facility] [address] Mailstop [phone] [place] [address] Abigail Dougherty RN 08/28/2024 Home Care Visit [address] [address] [address] [place] [address] Lillian Campuzano, PT PT VIRTUAL NON OASIS DISCHARGE 08/20/2024 7:40 PM WELDING EQUIPMENT SALES REPRESENTATIVE - 08/26/2024 6:54 PM WELDING EQUIPMENT SALES REPRESENTATIVE Hospital Encounter [facility] [address] [place] [address] Mike Connell MD Myla, MD Bobby Anemia due to chronic kidney disease, on chronic dialysis (HCC) (Primary Dx) Discharge Disposition: Discharge to home or self care 08/20/2024 Home Care Visit [address] [place] [address] Lillian Campuzano, PT PT OASIS TRANSFER W/OUT DC 08/20/2024 Home Care Visit [address] [place] [address] Dominga Head PTA CASE COMMUNICATION 08/20/2024 Telephone [facility] Cardiology [address] [place] [address] [place] [phone] Lydia Lewis NP 08/20/2024 10:45 AM WELDING EQUIPMENT SALES REPRESENTATIVE Home Care Visit [address] [address] [place] [address] Dominga Head PTA PT HOME VISIT 08/20/2024 11:15 AM WELDING EQUIPMENT SALES REPRESENTATIVE Home Care Visit [address] [address] [place] [address] Ana Cristina Kelley COTA CASE COMMUNICATION 08/19/2024 11:30 AM WELDING EQUIPMENT SALES REPRESENTATIVE Office Visit [facility] Cardiology [address] [place] [address] [address] [place] [phone] Lydia Lewis, JOSE C Hypotension due to hypovolemia (Primary Dx); Dilated cardiomyopathy (HCC); Persistent atrial fibrillation (HCC); Chronic anticoagulation; ESRD (end stage renal disease) on dialysis (HCC) 08/14/2024 Telephone [facility] Cardiology [address] [facility] [address] [place] [address] Jama Hoskins MD Hypotension 08/12/2024 Home Care Visit [address] [place] [address] Lillian Campuzano, PT CARE CONFERENCE 08/12/2024 10:00 AM WELDING EQUIPMENT SALES REPRESENTATIVE Home Care Visit [address] [place] [address] Zofia Cosby, OT OT INITIAL EVALUATION 08/12/2024 12:45 PM WELDING EQUIPMENT SALES REPRESENTATIVE Home Care Visit [address] [place] [address] Dominga Head, STAFF COUNSELOR PT HOME VISIT 08/09/2024 Home Care Visit [address] [place] [address] Magui Friedman, RUPESH NURSE MED RECON FOR THERAPY 08/07/2024 Plan of Care Documentation [address] [place] [address] 08/07/2024 8:30 AM WELDING EQUIPMENT SALES REPRESENTATIVE Home Care Visit [address] [place] [address] Lillian Campuzano, PT PT OASIS START OF CARE 08/06/2024 Telephone [facility] Home Care Services [address] [place] [address] Carson Huffman MA 08/05/2024 Telephone [facility] Home Care Services [address] [place] [address] Carson Huffman MA 08/04/2024 Telephone [facility] Cardiology [address] [facility] [address], [place] [phone] Tanisha Winter NP 07/25/2024 6:50 PM WELDING EQUIPMENT SALES REPRESENTATIVE - 08/04/2024 3:37 PM WELDING EQUIPMENT SALES REPRESENTATIVE Hospital Encounter [facility] Medicine and Rehabilitation [address] [place] [address] Nga Dumont MD Physical deconditioning [R53.81] (Primary Dx) Discharge Disposition: Discharge to home, home health skilled care 08/03/2024 Travel from Last 3 Months Allergies Active Allergy [...] mouth 2 (two) times a day rx #[id number] 2024 Discontinued(D uplicate order) losartan (COZAAR) 50 [...] materials from doctor or pharmacy Sometimes 08/07/2024 [facility] Utilities Answer Date Recorded In the past [...] often do you attend chur ch or amish services? Patient declined 07/26/2024 Do you belong to any clubs o r organizations such as muslim groups, unions, fraternal or athletic groups, or [...] staff should administer the PHQ-9) 0 08/21/2024 [facility] of Occupat ional Health - Occupational Stress [...] in the past 12 m [facility], were you homeless or living [...] on file 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 WELDING EQUIPMENT SALES REPRESENTATIVE Gender Identity Not on file Sexual Orientation Not on file Last Filed Vital Signs Vital Sign Reading Time Taken Comments Blood Pressure 80/58 10/10/2024 2:37 PM CDT Pulse 117 10/10/2024 2:37 PM CDT Temperature 36.8 C (98.3 F) 08/26/2024 3:53 PM WELDING EQUIPMENT SALES REPRESENTATIVE Respiratory Rate 18 08/26/2024 3:53 PM WELDING EQUIPMENT SALES REPRESENTATIVE Oxygen Saturation 97% 10/10/2024 2:37 PM CDT Inhaled Oxygen Concentration - - Weight 88.5 kg (195 lb) 10/10/2024 2:37 PM CDT Height 152.4 cm (5') 10/10/2024 2:37 PM CDT Body Mass Index 38.08 10/10/2024 2:37 PM CDT Plan of Treatment Not on file Medical Devices Implanted Type Area Aircraft Manager Device Identifier Shelf Expiration Date Model / Serial / Lot Dental Implant Other - see comments Description:Upper [employer] [place] 15fr 62cm 2 Cuff Radiopaque Peritoneal Curl Catheter [id number] - [id number] Implanted:Qty: 1 on 04/03/2022 by Sulaiman Hi MD at [facility] Left: Abdomen [employer] 10/16/2026 [id number] / / [id number] Procedures Procedure Name Priority Date/Time Associated Diagnosis Comments POCT LIPID PANEL Routine 10/10/2024 4:22 PM CDT Need for lipid screening ELECTROCARDIOGRAM REPORT Routine 10/10/2024 4:08 PM CDT Persistent atrial fibrillation (HCC) DIFFERENTIAL AUTO Routine 08/26/2024 2:3 6 AM WELDING EQUIPMENT SALES REPRESENTATIVE CBC WITH AUTO DIFFERENTIAL Routine 08/26/2024 2:36 AM WELDING EQUIPMENT SALES REPRESENTATIVE CONTINUOUS CYCLIC PERITONEAL DIALYSIS (CCPD) Routine 08/26/2024 12:31 AM WELDING EQUIPMENT SALES REPRESENTATIVE XR CHEST 1 VIEW IP Routine 08/25/2024 3:10 PM WELDING EQUIPMENT SALES REPRESENTATIVE CELL DIFFERENTIAL, BODY FLUID Routine 08/25/2024 2:32 PM WELDING EQUIPMENT SALES REPRESENTATIVE AMYLASE, BODY FLUID Routine 08/25/2024 2 :32 PM WELDING EQUIPMENT SALES REPRESENTATIVE CELL COUNT W/REFLEX DIFFERENTIAL, BODY FLUID Routine 08/25/2024 2:32 PM WELDING EQUIPMENT SALES REPRESENTATIVE GLUCOSE, BODY FLUID Routine 08/25/2024 2 :32 PM WELDING EQUIPMENT SALES REPRESENTATIVE LACTATE DEHYDROGENASE, BODY FLUID Routine 08/25/2024 2:32 PM WELDING EQUIPMENT SALES REPRESENTATIVE PROTEIN, BODY FLUID Routine 08/25/2024 2 :32 PM WELDING EQUIPMENT SALES REPRESENTATIVE XR CHEST PA LATERAL 2 VIEWS IP Routine 08/25/2024 8:27 AM WELDING EQUIPMENT SALES REPRESENTATIVE DIFFERENTIAL AUTO Routine 08/25/2024 3:0 3 AM WELDING EQUIPMENT SALES REPRESENTATIVE CBC WITH AUTO DIFFERENTIAL Routine 08/25/2024 3:03 AM WELDING EQUIPMENT SALES REPRESENTATIVE CYTOLOGY Routine 08/25/2024 12:00 AM WELDING EQUIPMENT SALES REPRESENTATIVE DIFFERENTIAL AUTO Routine 08/24/2024 4:3 4 AM WELDING EQUIPMENT SALES REPRESENTATIVE CBC WITH AUTO DIFFERENTIAL Routine 08/24/2024 4:34 AM WELDING EQUIPMENT SALES REPRESENTATIVE EGFR Routine 08/22/2024 9:54 AM WELDING EQUIPMENT SALES REPRESENTATIVE DIFFERENTIAL AUTO Routine 08/22/2024 9:5 4 AM WELDING EQUIPMENT SALES REPRESENTATIVE COMPREHENSIVE METABOLIC PANEL Routine 08/22/2024 9:54 AM WELDING EQUIPMENT SALES REPRESENTATIVE CBC WITH AUTO DIFFERENTIAL Routine 08/22/2024 9:54 AM WELDING EQUIPMENT SALES REPRESENTATIVE URINALYSIS, MICROSCOPIC ONLY Routine 08/21/2024 6:01 PM WELDING EQUIPMENT SALES REPRESENTATIVE URINE CULTURE Routine 08/21/2024 6:01 PM WELDING EQUIPMENT SALES REPRESENTATIVE URINALYSIS AND REFLEX TO MICROSCOPIC AND CULTURE Routine 08/21/2024 6:01 PM WELDING EQUIPMENT SALES REPRESENTATIVE CT CHEST ABDOMEN PELVIS WO CONTRAST ED Urgent/IP Urgent 08/21/2024 4:56 PM WELDING EQUIPMENT SALES REPRESENTATIVE VITAMIN B12 Routine 08/21/2024 7:44 AM WELDING EQUIPMENT SALES REPRESENTATIVE FOLATE Routine 08/21/2024 7:44 AM WELDING EQUIPMENT SALES REPRESENTATIVE IRON PROFILE W/ IBC Routine 08/21/2024 7 :44 AM WELDING EQUIPMENT SALES REPRESENTATIVE BLOOD CULTURE Routine 08/21/2024 7:44 AM WELDING EQUIPMENT SALES REPRESENTATIVE BLOOD CULTURE Routine 08/21/2024 7:44 AM WELDING EQUIPMENT SALES REPRESENTATIVE EGFR Routine 08/21/2024 2:52 AM WELDING EQUIPMENT SALES REPRESENTATIVE DIFFERENTIAL AUTO Routine 08/21/2024 2:5 2 AM WELDING EQUIPMENT SALES REPRESENTATIVE COMPREHENSIVE METABOLIC PANEL Routine 08/21/2024 2:52 AM WELDING EQUIPMENT SALES REPRESENTATIVE CBC WITH AUTO DIFFERENTIAL Routine 08/21/2024 2:52 AM WELDING EQUIPMENT SALES REPRESENTATIVE XR CHEST 1 VIEW ED 08/21/2024 1:09 AM WELDING EQUIPMENT SALES REPRESENTATIVE POTASSIUM, WHOLE BLOOD Timed 12:48 AM WELDING EQUIPMENT SALES REPRESENTATIVE HEMOGLOBIN AND HEMATOCRIT Timed 08/21/2024 12:48 AM WELDING EQUIPMENT SALES REPRESENTATIVE TRANSFUSE RED BLOOD CELLS Timed 08/20/2024 9:36 PM WELDING EQUIPMENT SALES REPRESENTATIVE PREPARE RBC STAT 08/20/2024 8:06 PM WELDING EQUIPMENT SALES REPRESENTATIVE APTT STAT 08/20/2024 8:02 PM WELDING EQUIPMENT SALES REPRESENTATIVE PROTIME-INR STAT 08/20/2024 8:02 PM WELDING EQUIPMENT SALES REPRESENTATIVE TYPE AND SCREEN STAT 08/20/2024 8:02 PM WELDING EQUIPMENT SALES REPRESENTATIVE EGFR STAT 08/20/2024 1:06 PM WELDING EQUIPMENT SALES REPRESENTATIVE DIFFERENTIAL AUTO STAT 08/20/2024 1:0 6 PM WELDING EQUIPMENT SALES REPRESENTATIVE MAGNESIUM Routine 08/20/2024 1:06 PM WELDING EQUIPMENT SALES REPRESENTATIVE COMPREHENSIVE METABOLIC PANEL STAT 08/20/2024 1:06 PM WELDING EQUIPMENT SALES REPRESENTATIVE CBC WITH AUTO DIFFERENTIAL STAT 08/20/2024 1:06 PM WELDING EQUIPMENT SALES REPRESENTATIVE ECG 12-LEAD Routine 08/20/2024 12:45 PM WELDING EQUIPMENT SALES REPRESENTATIVE DIFFERENTIAL AUTO Routine 08/02/2024 5:4 5 AM WELDING EQUIPMENT SALES REPRESENTATIVE CBC WITH AUTO DIFFERENTIAL Routine 08/02/2024 5:45 AM WELDING EQUIPMENT SALES REPRESENTATIVE from Last 3 Months Results * POCT [...] * (ABNORMAL) Differential, auto (08/26/2024 2:36 AM WELDING EQUIPMENT SALES REPRESENTATIVE) Neutrophil abs 7.6(H) 1.5 - 6.5 K/cumm Imm gran abs 0.1 0.0 - 0.1 K/cumm [facility] Lymphocyte abs 0.6(L) 0.8 - 3.3 K/cumm [facility] Monocyte abs 1.3(H) 0.2 - 0.8 K/cumm [facility] Eosinophil abs 0.2 0.0 - 0.5 K/cumm [facility] Basophil abs 0.1 0.0 - 0.1 K/cumm [facility] Neutrophil pct 77.1 % [facility] Comment: Interpretive Data Percent cell count reference ranges are not reported, since discordance with absolute values may lead to misinterpretation of CBC data. Current Interpretive Data was last revised on 2017. Imm gran pct 1.3 % [facility] Comment: Interpretive Data Percent cell count reference ranges are not reported, since discordance with absolute values may lead to misinterpretation of CBC data. Current Interpretive Data was last revised on 2017. Lymphocyte pct 5.7 % [facility] Comment: Interpretive Data Percent cell count reference ranges are not reported, since discordance with absolute values may lead to misinterpretation of CBC data. Current Interpretive Data was last revised on 2017. Monocyte pct 13.0 % [facility] Comment: Interpretive Data Percent cell count reference ranges are not reported, since discordance with absolute values may lead to misinterpretation of CBC data. Current Interpretive Data was last revised on 2017. Eosinophil pct 2.3 % [facility] Comment: Interpretive Data Percent cell count reference ranges are not reported, since discordance with absolute values may lead to misinterpretation of CBC data. Current Interpretive Data was last revised on 2017. Basophil pct 0.6 % [facility] Comment: Interpretive Data Percent cell count reference ranges are not reported, since discordance with absolute values may lead to misinterpretation of CBC data. Current Interpretive Data was last revised on 2017. Blood 08/26/2024 2:36 AM WELDING EQUIPMENT SALES REPRESENTATIVE 08/26/2024 4:06 AM WELDING EQUIPMENT SALES REPRESENTATIVE Bobby Ya MD LAB BLOOD ORDERABLES Final Result [facility] [address] Department of Laboratories [place], [place] [id number] * (ABNORMAL) CBC with auto differential (08/26/2024 2:36 AM WELDING EQUIPMENT SALES REPRESENTATIVE) WBC 9.9 3.8 - 9.9 K/cumm Hgb 7.2(L) 11.9 - 15.5 g/dL [facility] Hct 24.2(L) 35.6 - 45.5 % [facility] Plt 383 150 - 400 K/cumm [facility] MPV 8.7(L) 9.1 - 12.3 fL [facility] RBC 2.36(L) 3.90 - 5.20 M/cumm [facility] MCV 102.5(H) 81.3 - 96.4 fL [facility] MCH 30.5 27.1 - 33.3 pg [facility] MCHC 29.8(L) 32.3 - 35.7 g/dL [facility] RDW CV 15.9(H) 11.1 - 14.9 % [facility] RDW SD 58.7(H) 35.7 - 48.1 fL [facility] NRBC abs 0.00 0.00 - 0.01 K/cumm [facility] Blood 08/26/2024 2:36 AM WELDING EQUIPMENT SALES REPRESENTATIVE 08/26/2024 4:06 AM WELDING EQUIPMENT SALES REPRESENTATIVE us Bobby Ya MD LAB BLOOD ORDERABLES Final Result [facility] [address] Department [place] [address] * XR Chest 1 Vw Portable (08/25/2024 3:10 PM WELDING EQUIPMENT SALES REPRESENTATIVE) Anatomical Region Laterality Modality Body, Chest N/A Computed Radiogr aphy 08/25/2024 3:29 PM WELDING EQUIPMENT SALES REPRESENTATIVE Impressions 08/25/2024 3:29 PM WELDING EQUIPMENT SALES REPRESENTATIVE FINDINGS/IMPRESSION: Small bilateral pleural effusions. No consolidation. Borderline cardiomegaly. No acute osseous abnormality. Electronically signed by: Peter Porter II, D.O. Narrative 08/25/2024 3:29 PM WELDING EQUIPMENT SALES REPRESENTATIVE EXAMINATION: XR CHEST 1 VIEW DATE: 08/25/2024 [...] Cell Differential, Body Fluid (08/25/2024 2:32 PM WELDING EQUIPMENT SALES REPRESENTATIVE) Total cells diffed 82 % Comment: Interpretive [...] % [facility] Fluid 08/25/2024 2:32 PM WELDING EQUIPMENT SALES REPRESENTATIVE 08/25/2024 2:32 PM WELDING EQUIPMENT SALES REPRESENTATIVE Charles Hendrickson MD LAB BODY FLUIDS AND STO OLS ORDERABLES Final Result Performing Organization Address [facility] Co de Phone Number [facility] [place] [id number] Department of Laboratories [place], [place] [phone] * Cell count w/rflx diff, body fluid (08/25/2024 2:32 PM WELDING EQUIPMENT SALES REPRESENTATIVE) Specimen type, fld Pleural Body site, fld [...] /cumm [facility] Fluid 08/25/2024 2:32 PM WELDING EQUIPMENT SALES REPRESENTATIVE 08/25/2024 2:32 PM WELDING EQUIPMENT SALES REPRESENTATIVE Charles Hendrickson MD LAB BODY FLUIDS AND STO OLS ORDERABLES Final Result Performing Organization Address [facility]/ZIP Co de Phone Number [facility] [place] [address] Department [place] [address] * Protein, body fluid (08/25/2024 2:32 PM WELDING EQUIPMENT SALES REPRESENTATIVE) Specimen type, fld Pleural Comment:Testing performed by : [facility], [address] [place] [address] Body site, fld Pleural fluid, left [facility] Comment:Testing performed by : [facility], [address] [place]., [address] Protein, fld 3.5 g/dL [facility] Comment: The above specimen type [...] last revised 2019. Testing performed by: [facility], [address] [place] [address]., [address] Fluid 08/25/2024 2:32 PM WELDING EQUIPMENT SALES REPRESENTATIVE 08/25/2024 5:52 PM WELDING EQUIPMENT SALES REPRESENTATIVE Charles Hendrickson MD LAB BODY FLUIDS AND STO OLS ORDERABLES Final Result [facility] [address] Department [place] [address] * Lactate dehydrogenase, body fluid (08/25/2024 2:32 PM WELDING EQUIPMENT SALES REPRESENTATIVE) Specimen type, fld Pleural Comment:Testing performed by : [facility], [address] [place]., [address] Body site, fld Pleural fluid, left [facility] Comment:Testing performed by : [facility], [address] [place]., [address] LD, fld 151 Units/L [facility] Comment: [...] Press. 2018. Chapter 43, Body Fluids, p. 92 Current Interpretive Data was last revised 2019. Testing performed by: [facility], [address] [place] [address]., [address] Fluid 08/25/2024 2:32 PM WELDING EQUIPMENT SALES REPRESENTATIVE 08/25/2024 5:52 PM WELDING EQUIPMENT SALES REPRESENTATIVE us Charles Hendrickson MD LAB BODY FLUIDS AND STO [facility] ORDERABLES Final Result [facility] [address] Department [place] [address] * Glucose, body fluid (08/25/2024 2:32 PM WELDING EQUIPMENT SALES REPRESENTATIVE) Specimen type, fld Pleural Comment:Testing performed by : [facility], [address] [facility], [place]., [address] Body site, fld Pleural fluid, left [facility] Comment:Testing performed by : [facility], [address] [place]., [address] Glucose, fld 109 mg/dL [facility] Comment: [...] and Management. Meir Clin J Med 2005;72:854-72. [employer] Test directory, Body Fluid Reference Intervals and/or Interpretative Information. [email or web address] Danika COUCH et al. Pancreatic cyst fluid glucose: rapid, inexpensive, and accurate diagnosis of mucinous pancreatic cysts. Surgery 2018;163:600-5. Mohsen DG et al. Differential diagnosis of pancreatic cysts: A prospective study on the role of intra-cystic glucose concentration. Digestive Liver Dis 2020;52:1026-32. Current Interpretive Data was last revised 2021. Testing performed by: [facility], [address] [place] [address]., [address] Fluid 08/25/2024 2:32 PM WELDING EQUIPMENT SALES REPRESENTATIVE 08/25/2024 5:52 PM WELDING EQUIPMENT SALES REPRESENTATIVE Narrative [facility] - 08/25/2024 7:28 PM WELDING EQUIPMENT SALES REPRESENTATIVE Body Fluid Type->Pleural us Charles Hendrickson MD LAB BODY FLUIDS AND STO OLS ORDERABLES Final Result [facility] [address] Department [place] [address] * Amylase, body fluid (08/25/2024 2:32 PM WELDING EQUIPMENT SALES REPRESENTATIVE) Specimen type, fld Pleural fluid, left Comment:Testing performed by : [facility], [address] [place] [address], [place]., [address] Amylase, fld <30 Units/L [facility] Comment: [...] 2018. Chapter 43, Body Fluids, p. 925 [employer] Test directory, Body Fluid Reference Intervals and/or Interpretative Information. [email or web address] Current Interpretive Data was last revised 2019. Testing performed by: [facility], [address] [place]., [address] Fluid 08/25/2024 2:32 PM WELDING EQUIPMENT SALES REPRESENTATIVE 08/25/2024 5:52 PM WELDING EQUIPMENT SALES REPRESENTATIVE us Charles Hendrickson MD LAB BODY FLUIDS AND STO OLS ORDERABLES Final Result [facility] [place] [address] Department [place] [address] * XR Chest PA Lateral 2 Views (08/25/2024 8:27 AM WELDING EQUIPMENT SALES REPRESENTATIVE) Anatomical Region Laterality Modality Body, Chest N/A Computed Radiogr aphy 08/25/2024 8:52 AM WELDING EQUIPMENT SALES REPRESENTATIVE Impressions 08/25/2024 8:52 AM WELDING EQUIPMENT SALES REPRESENTATIVE PERSISTENT PLEURAL EFFUSIONS LARGER ON THE LEFT THAN THE RIGHT. MILD FLUID OVERLOAD Electronically signed by: Bryant Alvarez M.D. Narrative 08/25/2024 8:52 AM WELDING EQUIPMENT SALES REPRESENTATIVE EXAMINATION: XR CHEST PA LATERAL 2 VIEWS [...] * (ABNORMAL) Differential, auto (08/25/2024 3:03 AM WELDING EQUIPMENT SALES REPRESENTATIVE) Neutrophil abs 7.4(H) 1.5 - 6.5 K/cumm Imm gran abs 0.1 0.0 - 0.1 K/cumm [facility] Lymphocyte abs 0.6(L) 0.8 - 3.3 K/cumm [facility] Monocyte abs 1.3(H) 0.2 - 0.8 K/cumm [facility] Eosinophil abs 0.3 0.0 - 0.5 K/cumm [facility] Basophil abs 0.1 0.0 - 0.1 K/cumm [facility] Neutrophil pct 75.8 % [facility] Comment: [...] revised on 2017. Blood 08/25/2024 3:03 AM WELDING EQUIPMENT SALES REPRESENTATIVE 08/25/2024 4:15 AM WELDING EQUIPMENT SALES REPRESENTATIVE Bobby Ya MD LAB BLOOD ORDERABLES Final Result [facility] [id number] Department of [facility] [place], [place] [id number] * (ABNORMAL) CBC with auto differential (08/25/2024 3:03 AM WELDING EQUIPMENT SALES REPRESENTATIVE) WBC 9.8 3.8 - 9.9 K/cumm Hgb 7.3(L) 11.9 - 15.5 g/dL [facility] Hct 24.3(L) 35.6 - 45.5 % [facility] Plt 424(H) 150 - 400 K/cumm [facility] MPV 8.6(L) 9.1 - 12.3 fL [facility] RBC [...] K/cumm [facility] Blood 08/25/2024 3:03 AM WELDING EQUIPMENT SALES REPRESENTATIVE 08/25/2024 4:15 AM WELDING EQUIPMENT SALES REPRESENTATIVE Bobby Ya MD LAB BLOOD ORDERABLES Final Result [facility] [place] [address] Department of Laboratories [place], [place] [id number] * Cytology (08/25/2024 12:00 AM WELDING EQUIPMENT SALES REPRESENTATIVE) Fluid (Pleura (Cytology)) 08/25/2024 08/25/2024 2:53 PM WELDING EQUIPMENT SALES REPRESENTATIVE Narrative PATHOLOGY - 08/27/2024 12:43 PM WELDING EQUIPMENT SALES REPRESENTATIVE EPIC results best viewed via link to PDF [facility] Department of Pathology [address] [place] [id number] Note to Patients: This report may [...] Final Report Patient Name: DORY NOBLE Address: [address] [place] [address] Gender: F : 1960 (Age: 63) Service: Medical Location: [facility] # [id number] Patient Type: [facility] Taken: 08/25/2024 Received: 08/25/2024 Accessioned: 08/25/2024 Reported: [...] determined by the Surgical Pathology Department at [facility] as part of an ongoing quality control checker program and in compliance with federally mandated [...] characteristics determined by the Surgical Pathology Department [facility]. It has not been cleared or approved by the U. S. Food and Drug Administration. Unless otherwise noted all cytology processing, staining and screening is performed at [facility] ([address] [place] [address]). REPORT IMAGES AND SCANNED DOCUMENTS, IF INCLUDED, ONLY VIEWABLE IN PDF VERSION OF REPORT Charles Hendrickson MD LAB CYTOLOGY ORDERABLES [place] [address] * (ABNORMAL) Differential, auto (08/24/2024 4:34 AM WELDING EQUIPMENT SALES REPRESENTATIVE) Neutrophil abs 7.9(H) 1.5 - 6.5 K/cumm Imm gran abs 0.1 0.0 - 0.1 K/cumm [facility] Lymphocyte abs 0.6(L) 0.8 - 3.3 K/cumm [facility] Monocyte abs 1.3(H) 0.2 - 0.8 K/cumm [facility] Eosinophil abs 0.3 0.0 - 0.5 K/cumm [facility] Basophil abs 0.1 0.0 - 0.1 K[facility]cumm [facility] 77.1 % [facility] Comment: Interpretive Data Percent cell count reference ranges are not reported, since discordance with absolute values may lead to misinterpretation of CBC data. Current Interpretive Data was last revised on 2017. Imm gran pct 1.4 % [facility] Comment: Interpretive Data Percent cell count reference ranges are not reported, since discordance with absolute values may lead to misinterpretation of CBC data. Current Interpretive Data was last revised on 2017. Lymphocyte pct 5.4 % [facility] Comment: Interpretive Data Percent cell count reference ranges are not reported, since discordance with absolute values may lead to misinterpretation of CBC data. Current Interpretive Data was last revised on 2017. Monocyte pct 12.6 % [facility] Comment: Interpretive Data Percent cell count reference ranges are not reported, since discordance with absolute values may lead to misinterpretation of CBC data. Current Interpretive Data was last revised on 2017. Eosinophil pct 2.9 % [facility] Comment: Interpretive Data Percent cell count reference ranges are not reported, since discordance with absolute values may lead to misinterpretation of CBC data. Current Interpretive Data was last revised on 2017. Basophil pct 0.6 % [facility] Comment: Interpretive Data Percent cell count reference ranges are not reported, since discordance with absolute values may lead to misinterpretation of CBC data. Current Interpretive Data was last revised on 2017. Blood 08/24/2024 4:34 AM WELDING EQUIPMENT SALES REPRESENTATIVE 08/24/2024 4:49 AM WELDING EQUIPMENT SALES REPRESENTATIVE Bobby Ya MD LAB BLOOD ORDERABLES Final Result [facility] [id number] Department [place] [address] * (ABNORMAL) CBC with auto differential (08/24/2024 4:34 AM WELDING EQUIPMENT SALES REPRESENTATIVE) WBC 10.3(H) 3.8 - 9.9 K/cumm Hgb 7.0(L) 11.9 - 15.5 g/dL [facility] Hct 23.3(L) 35.6 - 45.5 % [facility] Plt 410(H) 150 - 400 K/cumm [facility] MPV 8.4(L) 9.1 - 12.3 fL [facility] RBC 2.24(L) 3.90 - 5.20 M/cumm [facility] MCV 104.0(H) 81.3 - 96.4 fL [facility] MCH 31.3 27.1 - 33.3 pg [facility] MCHC 30.0(L) 32.3 - 35.7 g/dL [facility] RDW CV 16.7(H) 11.1 - 14.9 % [facility] RDW SD 64.5(H) 35.7 - 48.1 fL [facility] NRBC abs 0.00 0.00 - 0.01 K/cumm [facility] Blood 08/24/2024 4:34 AM WELDING EQUIPMENT SALES REPRESENTATIVE 08/24/2024 4:49 AM WELDING EQUIPMENT SALES REPRESENTATIVE Bobby Ya MD LAB BLOOD ORDERABLES Final Result [facility] [address] Department [place] [address] * (ABNORMAL) eGFR (08/22/2024 9:54 AM WELDING EQUIPMENT SALES REPRESENTATIVE) eGFR 3(L) >=60 mL/min/1. 73 m2 Comment: [...] last reviewed 2021. Blood 08/22/2024 9:54 AM WELDING EQUIPMENT SALES REPRESENTATIVE 08/22/2024 10:37 AM WELDING EQUIPMENT SALES REPRESENTATIVE us Rhiannondon Faimlia WOODALL LAB BLOOD ORDERABLES Final R esult [facility] [id number] Department [place] [address] * (ABNORMAL) Differential, auto (08/22/2024 9:54 AM WELDING EQUIPMENT SALES REPRESENTATIVE) Neutrophil abs 9.3(H) 1.5 - 6.5 K/cumm Imm gran abs 0.2(H) 0.0 - 0.1 K/cumm [facility] Lymphocyte abs 0.7(L) 0.8 - 3.3 K/cumm [facility] Monocyte abs 1.2(H) 0.2 - 0.8 K/cumm [facility] Eosinophil abs 0.3 0.0 - 0.5 K/cumm [facility] Basophil abs 0.1 0.0 - 0.1 K/cumm [facility] Neutrophil pct 79.3 % [facility] Comment: Interpretive Data Percent cell count reference ranges are not reported, since discordance with absolute values may lead to misinterpretation of CBC data. Current Interpretive Data was last revised on 2017. Imm gran pct 1.3 % [facility] Comment: Interpretive Data Percent cell count reference ranges are not reported, since discordance with absolute values may lead to misinterpretation of CBC data. Current Interpretive Data was last revised on 2017. Lymphocyte pct 5.7 % [facility] Comment: Interpretive Data Percent cell count reference ranges are not reported, since discordance with absolute values may lead to misinterpretation of CBC data. Current Interpretive Data was last revised on 2017. Monocyte pct 10.4 % [facility] Comment: Interpretive Data Percent cell count reference ranges are not reported, since discordance with absolute values may lead to misinterpretation of CBC data. Current Interpretive Data was last revised on 2017. Eosinophil pct 2.7 % [facility] Comment: Interpretive Data Percent cell count [...] revised on 2017. Blood 08/22/2024 9:54 AM WELDING EQUIPMENT SALES REPRESENTATIVE 08/22/2024 10:36 AM WELDING EQUIPMENT SALES REPRESENTATIVE Kala Barbosa NP LAB BLOOD ORDERABLES Final R esult [facility] [id number] Department [place] [address] * (ABNORMAL) CBC with auto differential (08/22/2024 9:54 AM WELDING EQUIPMENT SALES REPRESENTATIVE) WBC 11.7(H) 3.8 - 9.9 K/cumm Hgb 7.4(L) 11.9 - 15.5 g/dL [facility] Hct 24.6(L) 35.6 - 45.5 % [facility] Plt 462(H) 150 - 400 K/cumm [facility] MPV 8.5(L) 9.1 - 12.3 fL [facility] RBC 2.37(L) 3.90 - 5.20 M/cumm [facility] MCV 103.8(H) 81.3 - 96.4 fL [facility] MCH 31.2 27.1 - 33.3 pg [facility] MCHC 30.1(L) 32.3 - 35.7 g/dL [facility] RDW CV 18.0(H) 11.1 - 14.9 % [facility] RDW SD 67.7(H) 35.7 - 48.1 fL [facility] NRBC abs 0.00 0.00 - 0.01 K/cumm [facility] Blood 08/22/2024 9:54 AM WELDING EQUIPMENT SALES REPRESENTATIVE 08/22/2024 10:36 AM WELDING EQUIPMENT SALES REPRESENTATIVE Kala Barbosa NP LAB BLOOD ORDERABLES Final R esult [facility] [place] [address] Department [place] [address] * (ABNORMAL) Comprehensive metabolic panel (08/22/2024 9:54 AM WELDING EQUIPMENT SALES REPRESENTATIVE) Sodium 137 135 - 145 mmol/L Potassium, [...] Units/L [facility] Blood 08/22/2024 9:54 AM WELDING EQUIPMENT SALES REPRESENTATIVE 08/22/2024 10:37 AM WELDING EQUIPMENT SALES REPRESENTATIVE us Kala Barbosa NP LAB BLOOD ORDERABLES Final R esult [facility] [address] Department [place] [address] * (ABNORMAL) Urinalysis reflex to microscopic and culture Urine, clean voided (08/21/2024 6:01 PM WELDING EQUIPMENT SALES REPRESENTATIVE) Color, ur Mitzi Yellow Clarity, ur Turbid(A) [...] tendency for uric acid stone formation. Source: [facility] Current Interpretive Data was last revised [...] [facility] Urine, clean voided 08/21/2024 6:01 PM WELDING EQUIPMENT SALES REPRESENTATIVE 08/21/2024 6:06 PM WELDING EQUIPMENT SALES REPRESENTATIVE Bobby Ya MD LAB MICROBIOLOGY - GENERAL ORDERABLES Final Result [facility] [id number] Department [place] [address] * (ABNORMAL) Urinalysis, microscopic only (08/21/2024 6:01 PM WELDING EQUIPMENT SALES REPRESENTATIVE) WBC, ur >50(A) 0 - 5 /HPF RBC, ur >50(A) 0 - 2 /HPF [facility] Epithelial cells, squamous, ur 21-50(A) 0 - 5 /HPF [facility] Culture Reflex Comment Reflex to urine culture will be performed. [facility] Urine, clean voided 08/21/2024 6:01 PM WELDING EQUIPMENT SALES REPRESENTATIVE 08/21/2024 6:06 PM WELDING EQUIPMENT SALES REPRESENTATIVE Bobby Ya MD LAB URINE ORDERABLES Final Result Performing Organization Address [facility]/ZIP Co de Phone Number [facility] [address] Department [place] [address] * Urine culture Urine, clean voided (08/21/2024 6:01 PM WELDING EQUIPMENT SALES REPRESENTATIVE) Report Final Report: Less than 100,000 colonies/mL (clinically insignificant growth based on current clinical standards) Comment:Testing performed by : [facility], [address] [place]., [address] Organism (CLINICALLY INSIGNIFICANT GROWTH [facility] Urine, clean voided 08/21/2024 6:01 PM WELDING EQUIPMENT SALES REPRESENTATIVE 08/21/2024 8:14 PM WELDING EQUIPMENT SALES REPRESENTATIVE Narrative [facility] - 08/23/2024 7:20 AM WELDING EQUIPMENT SALES REPRESENTATIVE Urine culture reflexed based upon urinalysis results. Testing performed by [facility] ([phone]) Bobby Ya MD LAB MICROBIOLOGY - GENERAL ORDERABLES Final Result Performing Organization Address [facility] Co de Phone Number [facility] [address] Department [place] [address] * CT Chest Abdomen Pelvis WO Contrast (08/21/2024 4:56 PM WELDING EQUIPMENT SALES REPRESENTATIVE) Anatomical Region Laterality Modality Body N/A Computed Tomogra phy 08/21/2024 5:31 PM WELDING EQUIPMENT SALES REPRESENTATIVE Impressions 08/22/2024 2:24 PM WELDING EQUIPMENT SALES REPRESENTATIVE Moderate loculated left pleural effusion with left [...] Priscila Ochoa M.D. Narrative 08/22/2024 2:24 PM WELDING EQUIPMENT SALES REPRESENTATIVE EXAM: CT CHEST, ABDOMEN AND PELVIS WITHOUT [...] noted without pericardial effusion..Atherosclerotic nonaneurysmal aorta with [id number] calcified plaque and mild aortic valvular calcification [...] noted without pericardial effusion..Atherosclerotic nonaneurysmal aorta with fwif-[id number] calcified plaque and mild aortic valvular calcification [...] Iron profile w/ IBC (08/21/2024 7:44 AM WELDING EQUIPMENT SALES REPRESENTATIVE) Iron 164(H) 35 - 145 mcg/dl TIBC 254 250 - 400 mcg/dL [facility] Transferrin saturation 65(H) 20 - 50 % [facility] Blood 08/21/2024 7:44 AM WELDING EQUIPMENT SALES REPRESENTATIVE 08/21/2024 9:19 AM WELDING EQUIPMENT SALES REPRESENTATIVE Kala Barbosa STRAW HAT WASHER OPERATOR LAB BLOOD ORDERABLES Final R esult [facility] [id number] Department [place] [address] * Blood culture Blood (08/21/2024 7:44 AM WELDING EQUIPMENT SALES REPRESENTATIVE) Report Final Report: No growth Comment:Testing performed by : [facility], [address], [place]., [address] Blood 08/21/2024 7:44 AM WELDING EQUIPMENT SALES REPRESENTATIVE 08/21/2024 12:57 PM WELDING EQUIPMENT SALES REPRESENTATIVE Narrative [facility] - 08/25/2024 4:00 PM WELDING EQUIPMENT SALES REPRESENTATIVE From a different site than #1. Collection->Peripheral [...] characteristics have been verified by the [facility]. For questions about this culture, contact the Microbiology Laboratory at [phone]. Interpretive data was last revised on 24. Kala Barbosa NP LAB MICROBIOLOGY - GENERAL O RDERABLES Final Result [facility] [address] Department [place] [address] * Blood culture Blood (08/21/2024 7:44 AM WELDING EQUIPMENT SALES REPRESENTATIVE) Report Final Report: No growth Comment:Testing performed by : [facility], [address] [place] [address] Blood 08/21/2024 7:44 AM WELDING EQUIPMENT SALES REPRESENTATIVE 08/21/2024 12:57 PM WELDING EQUIPMENT SALES REPRESENTATIVE Andree JANG CH - 08/25/2024 4:00 PM WELDING EQUIPMENT SALES REPRESENTATIVE Collection->Peripheral 1. Blood cultures are incubated for [...] characteristics have been verified by the [facility]. For questions about this culture, contact the Microbiology Laboratory at [phone]. Interpretive data was last revised on 24. Kala Barbosa NP LAB MICROBIOLOGY - GENERAL O RDERABLES Final Result Performing Organization Address [facility] Co de Phone Number [facility] [address] Department [place], [place] [id number] * Folate (08/21/2024 7:44 AM WELDING EQUIPMENT SALES REPRESENTATIVE) Folic acid >20.0 >=5.0 ng/mL Comment:Hemolysis present. R esults may be affected. Blood 08/21/2024 7:44 AM WELDING EQUIPMENT SALES REPRESENTATIVE 08/21/2024 9:19 AM WELDING EQUIPMENT SALES REPRESENTATIVE Kala Barbosa NP LAB BLOOD ORDERABLES Final R esult Performing Organization Address [facility] de Phone Number [facility] [address] Department [place], [place] [id number] * (ABNORMAL) Vitamin B12 (08/21/2024 7:44 AM WELDING EQUIPMENT SALES REPRESENTATIVE) Vitamin B12 1,704(H) 230 - 1,250 pg/mL Blood 08/21/2024 7:44 AM WELDING EQUIPMENT SALES REPRESENTATIVE 08/21/2024 9:19 AM WELDING EQUIPMENT SALES REPRESENTATIVE Kala Barbosa NP LAB BLOOD ORDERABLES Final R esult Performing Organization Address [facility] Co de Phone Number [facility] [address] Department [place] [address] * (ABNORMAL) eGFR (08/21/2024 2:52 AM WELDING EQUIPMENT SALES REPRESENTATIVE) eGFR 4(L) >=60 mL/min/1. 73 m2 Comment: [...] last reviewed 2021. Blood 08/21/2024 2:52 AM WELDING EQUIPMENT SALES REPRESENTATIVE 08/21/2024 3:17 AM WELDING EQUIPMENT SALES REPRESENTATIVE Kala Barbosa NP LAB BLOOD ORDERABLES Final R esult [facility] [address] Department [place] [address] * (ABNORMAL) Differential, auto (08/21/2024 2:52 AM WELDING EQUIPMENT SALES REPRESENTATIVE) Neutrophil abs 9.6(H) 1.5 - 6.5 K/cumm Imm gran abs 0.2(H) 0.0 - 0.1 K/cumm [facility] Lymphocyte abs 1.0 0.8 - 3.3 K/cumm [facility] Monocyte abs 1.4(H) 0.2 - 0.8 K/cumm [facility] Eosinophil abs 0.3 0.0 - 0.5 K/cumm [facility] Basophil abs 0.1 0.0 - 0.1 K/cumm [facility] Neutrophil pct 76.2 % [facility] Comment: Interpretive Data Percent cell count reference ranges are not reported, since discordance with absolute values may lead to misinterpretation of CBC data. Current Interpretive Data was last revised on 2017. Imm gran pct 1.4 % [facility] Comment: Interpretive Data Percent cell count reference ranges are not reported, since discordance with absolute values may lead to misinterpretation of CBC data. Current Interpretive Data was last revised on 2017. Lymphocyte pct 8.2 % [facility] Comment: Interpretive Data Percent cell count reference ranges are not reported, since discordance with absolute values may lead to misinterpretation of CBC data. Current Interpretive Data was last revised on 2017. Monocyte pct 11.4 % [facility] Comment: Interpretive Data Percent cell count reference ranges are not reported, since discordance with absolute values may lead to misinterpretation of CBC data. Current Interpretive Data was last revised on 2017. Eosinophil pct 2.1 % [facility] Comment: Interpretive Data Percent cell count reference ranges are not reported, since discordance with absolute values may lead to misinterpretation of CBC data. Current Interpretive Data was last revised on 2017. Basophil pct 0.7 % [facility] Comment: Interpretive Data Percent cell count reference ranges are not reported, since discordance with absolute values may lead to misinterpretation of CBC data. Current Interpretive Data was last revised on 2017. Blood 08/21/2024 2:52 AM WELDING EQUIPMENT SALES REPRESENTATIVE 08/21/2024 3:18 AM WELDING EQUIPMENT SALES REPRESENTATIVE us Kala Barbosa NP LAB BLOOD ORDERABLES Final R esult [facility] [address] Department [place] [address] * (ABNORMAL) CBC with auto differential (08/21/2024 2:52 AM WELDING EQUIPMENT SALES REPRESENTATIVE) WBC 12.6(H) 3.8 - 9.9 K/cumm Hgb 7.4(L) 11.9 - 15.5 g/dL [facility] Hct 24.1(L) 35.6 - 45.5 % [facility] [...] K/cumm [facility] Blood 08/21/2024 2:52 AM WELDING EQUIPMENT SALES REPRESENTATIVE 08/21/2024 3:18 AM WELDING EQUIPMENT SALES REPRESENTATIVE Kala Barbosa NP LAB BLOOD ORDERABLES [facility] [address] Department of Laboratories [place] [phone] * (ABNORMAL) Comprehensive metabolic panel (08/21/2024 2:52 AM WELDING EQUIPMENT SALES REPRESENTATIVE) Sodium 136 135 - 145 mmol/L Potassium, pl 3.3 3.3 - 4.9 mmol/L [facility] Chloride 94(L) 97 - 110 mmol/L [facility] CO2 28 22 - 32 mmol/L [facility] Anion gap 14 2 - 15 mmol/L [facility] BUN 39(H) 6 - 25 mg/dL [facility] Creatinine 10.12(H) 0.60 - 1.10 mg/dL [facility] Glucose 100 70 - 199 mg/dL [facility] [...] Units/L [facility] Blood 08/21/2024 2:52 AM WELDING EQUIPMENT SALES REPRESENTATIVE 08/21/2024 3:17 AM WELDING EQUIPMENT SALES REPRESENTATIVE us Kala Barbosa NP LAB BLOOD ORDERABLES Final R esult [facility] [address] Department [place] [address] * XR Chest 1 Vw Portable (08/21/2024 1:09 AM WELDING EQUIPMENT SALES REPRESENTATIVE) Anatomical Region Laterality Modality Body, Chest N/A Computed Radiogr aphy 08/21/2024 8:04 AM WELDING EQUIPMENT SALES REPRESENTATIVE Impressions 08/21/2024 8:04 AM WELDING EQUIPMENT SALES REPRESENTATIVE CARDIOMEGALY WITH CONSOLIDATING OPACITY IN THE LEFT BASE AND HAZY OPACITY IN THE RIGHT BASE WITH FLUID IN THE FISSURE. A LATERAL CHEST VIEW OR CT OF THE CHEST IS SUGGESTED TO EVALUATE THE LUNG BASES. Electronically signed by: Sulaiman Xie M.D. Narrative 08/21/2024 8:04 AM WELDING EQUIPMENT SALES REPRESENTATIVE EXAMINATION: XR CHEST 1 VIEW HISTORY: Elevated [...] signed by: Sulaiman Xie M.D. Susan Salcedo STRAW HAT WASHER OPERATOR IMG XR PROCEDURES Fi nal Result * (ABNORMAL) Potassium, whole blood (08/21/2024 12:48 AM WELDING EQUIPMENT SALES REPRESENTATIVE) Potassium, bld 3.1(L) 3.3 - 4.9 mmol/L Comment: Interpretive Data This method is not able to assess for hemolysis, which may falsely increase potassium concentrations. If further testing is needed to evaluate this result, consider in-laboratory plasma potassium. Current Interpretive Data was last revised on 2022. Blood 08/21/2024 12:4 8 AM WELDING EQUIPMENT SALES REPRESENTATIVE 08/21/2024 12:59 AM WELDING EQUIPMENT SALES REPRESENTATIVE Susan Salcedo NP LAB BLOOD ORDERABLES Final Result [facility] [address] Department [place] [address] * (ABNORMAL) Hemoglobin and hematocrit (08/21/2024 12:48 AM WELDING EQUIPMENT SALES REPRESENTATIVE) Hgb 7.2(L) 11.9 - 15.5 g/dL Hct 23.7(L) 35.6 - 45.5 % [facility] Blood 08/21/2024 12:4 8 AM WELDING EQUIPMENT SALES REPRESENTATIVE 08/21/2024 1:00 AM WELDING EQUIPMENT SALES REPRESENTATIVE Susan Salcedo NP LAB BLOOD ORDERABLES Final Result Performing Organization Address [facility] Co de Phone Number [facility] [place] [address] [place] [address] * Transfuse RBC (08/20/2024 11:45 PM WELDING EQUIPMENT SALES REPRESENTATIVE) Blood Susan Salcedo NP BLOOD TRANSFUSION OR DERABLES Final Result Performing Organization Address [facility] de Phone Number [facility] [address] [place] [address] * Prepare RBC: 1 Units (08/20/2024 8:06 PM WELDING EQUIPMENT SALES REPRESENTATIVE) Product code [id number] Unit Number [id number] [facility] Product Blood Type BPOS [facility] Dispense Status PRESUMED TRANSFUSED [facility] Blood 08/20/2024 8:06 PM WELDING EQUIPMENT SALES REPRESENTATIVE Narrative [facility] - 08/21/2024 10:15 AM WELDING EQUIPMENT SALES REPRESENTATIVE Are special requirements needed? (All products are leukoreduced and CMV- safe)- >No Date required:-[id number] LRRBC # of [id number] Reasons:-Hgb <7 g/dL} Susan Salcedo NP BLOOD BANK PRODUCT O RDERABLES Final Result Performing Organization Address [facility] de Phone Number [facility] [place] [address] [place] [address] * (ABNORMAL) aPTT (08/20/2024 8:02 PM WELDING EQUIPMENT SALES REPRESENTATIVE) aPTT 53(H) 28 - 38 sec Comment: Interpretive Data Heparin therapeutic range: 66.0 - 100.0 seconds. Range based on correlation with therapeutic heparin activity range of 0.3 - 0.7 Units/mL. Current interpretive data was last revised on 2023. Blood 08/20/2024 8:02 PM WELDING EQUIPMENT SALES REPRESENTATIVE 08/20/2024 8:26 PM WELDING EQUIPMENT SALES REPRESENTATIVE Dominga GraceOnsite Care PA LAB BLOOD ORDERABLES Final Resu lt Performing Organization Address [facility]/ZIP Co de Phone Number [facility] [address] [facility] [place] [address] * (ABNORMAL) Protime-INR (08/20/2024 8:02 PM WELDING EQUIPMENT SALES REPRESENTATIVE) PT 22.7(H) 9.7 - 13.0 sec INR 2.07(H) 0.90 - 1.20 [facility] Comment: Interpretive data Oral anticoagulant therapeutic ranges: Venous thromboembolism prophylaxis or treatment: 2.0-3.0 CARDIOLOGY Standard range: 2.0-3.0 High-intensity range: 2.5-3.5 Refer to indication-specific guidelines for appropriate target ranges for prosthetic heart valve replacement. Current interpretive data was last revised on 2019. Blood 08/20/2024 8:02 PM WELDING EQUIPMENT SALES REPRESENTATIVE 08/20/2024 8:26 PM WELDING EQUIPMENT SALES REPRESENTATIVE Dominga [employer] LAB BLOOD ORDERABLES Final Resu lt Performing Organization Address [facility] Co de Phone Number [facility] [address] [facility] [place] [address] * Type and screen (08/20/2024 8:02 PM WELDING EQUIPMENT SALES REPRESENTATIVE) Arianna, indirect Negative ABO Rh B Positive [facility] Blood 08/20/2024 8:02 PM WELDING EQUIPMENT SALES REPRESENTATIVE 08/20/2024 8:26 PM WELDING EQUIPMENT SALES REPRESENTATIVE Narrative [facility] - 08/20/2024 9:05 PM WELDING EQUIPMENT SALES REPRESENTATIVE Has the patient had Daratumumab or Isatuximab in the past 6 months?->Unknown Dominga Nena BALALIKEA LAB BLOOD BANK TEST ORDERABLES Final Result Performing Organization Address [facility]/ZIP Co de Phone Number [facility] KRISTIAN [address] Department [place] [address] * (ABNORMAL) eGFR (08/20/2024 1:06 PM WELDING EQUIPMENT SALES REPRESENTATIVE) eGFR 4(L) >=60 mL/min/1. 73 m2 Comment: [...] last reviewed 2021. Blood 08/20/2024 1:06 PM WELDING EQUIPMENT SALES REPRESENTATIVE 08/20/2024 1:06 PM WELDING EQUIPMENT SALES REPRESENTATIVE Alcides KNAPP LAB BLOOD ORDERABLES Final Result [facility] [address] Department [place] [address] * (ABNORMAL) Differential, auto (08/20/2024 1:06 PM WELDING EQUIPMENT SALES REPRESENTATIVE) Neutrophil abs 9.9(H) 1.5 - 6.5 K/cumm Imm gran abs 0.2(H) 0.0 - 0.1 K/cumm [facility] Lymphocyte abs 0.8 0.8 - 3.3 K/cumm [facility] Monocyte abs 1.1(H) 0.2 - 0.8 K/cumm [facility] Eosinophil abs 0.3 0.0 - 0.5 K/cumm [facility] Basophil abs 0.1 0.0 - 0.1 K/cumm [facility] Neutrophil pct 80.3 % [facility] Comment: Interpretive Data Percent cell count [...] revised on 2017. Basophil pct 0.7 % [facility] Comment: Interpretive Data Percent cell count reference ranges are not reported, since discordance with absolute values may lead to misinterpretation of CBC data. Current Interpretive Data was last revised on 2017. Blood 08/20/2024 1:06 PM WELDING EQUIPMENT SALES REPRESENTATIVE 08/20/2024 1:06 PM WELDING EQUIPMENT SALES REPRESENTATIVE us Alcides KNAPP LAB BLOOD ORDERABLES Final Result [facility] [address] Department [place] [address] * (ABNORMAL) CBC with auto differential (08/20/2024 1:06 PM WELDING EQUIPMENT SALES REPRESENTATIVE) WBC 12.3(H) 3.8 - 9.9 K/cumm Hgb [...] K/cumm [facility] Blood 08/20/2024 1:06 PM WELDING EQUIPMENT SALES REPRESENTATIVE 08/20/2024 1:06 PM WELDING EQUIPMENT SALES REPRESENTATIVE Alcides KNAPP LAB BLOOD ORDERABLES Final Result [facility] [address] Department [place], [place] [id number] * Magnesium (08/20/2024 1:06 PM WELDING EQUIPMENT SALES REPRESENTATIVE) Magnesium 1.9 1.4 - 2.5 mg/dL Blood 08/20/2024 1:06 PM WELDING EQUIPMENT SALES REPRESENTATIVE 08/20/2024 1:06 PM WELDING EQUIPMENT SALES REPRESENTATIVE Alcides KNAPP LAB BLOOD ORDERABLES Final Result [facility] [address] Department [place], [place] [id number] * (ABNORMAL) Comprehensive metabolic panel (08/20/2024 1:06 PM WELDING EQUIPMENT SALES REPRESENTATIVE) Sodium 134(L) 135 - 145 mmol/L Potassium, [...] Units/L [facility] Blood 08/20/2024 1:06 PM WELDING EQUIPMENT SALES REPRESENTATIVE 08/20/2024 1:06 PM WELDING EQUIPMENT SALES REPRESENTATIVE us Alcides KNAPP LAB BLOOD ORDERABLES Final [facility] [address] Department [place] [address] * ECG 12 lead (08/20/2024 12:45 PM WELDING EQUIPMENT SALES REPRESENTATIVE) 08/20/2024 12:4 5 PM WELDING EQUIPMENT SALES REPRESENTATIVE Narrative [facility] - 08/20/2024 7:49 PM WELDING EQUIPMENT SALES REPRESENTATIVE Vent Rate: 117 bpm RR Interval: 511 msec ID Interval: 0 msec QRS Duration: 116 msec QT Interval: 361 msec QTC Interval: 430 msec P-R-T [place]: 0 - 8 - 210 degrees IMPRESSION: ATRIAL FIBRILLATION WITH RAPID VENTRICULAR RESPONSE MODERATE INTRAVENTRICULAR CONDUCTION DELAY [110+ ms QRS DURATION] ST DEVIATION AND MODERATE T-WAVE ABNORMALITY, CONSIDER LATERAL ISCHEMIA [-0.1+ mV T-WAVE IN I/aVL/V5/V6] ABNORMAL ECG Electronically Signed By: Dr. Noelle Joiner [facility] us Alcides KNAPP ECG ORDERABLES Final Result [facility] * (ABNORMAL) Differential, auto (08/02/2024 5:45 AM WELDING EQUIPMENT SALES REPRESENTATIVE) Neutrophil abs 8.3(H) 1.5 - 6.5 K/cumm Imm gran abs 0.7(H) 0.0 - 0.1 K/cumm [facility] Lymphocyte abs 1.1 0.8 - 3.3 K/cumm [facility] Monocyte abs 1.9(H) 0.2 - 0.8 K/cumm [facility] Eosinophil abs 0.4 0.0 - 0.5 K/cumm [facility] Basophil abs 0.1 0.0 - 0.1 K/cumm [facility] Neutrophil pct 67.1 % [facility] Comment: Interpretive Data Percent [...] on 2017. Monocyte pct 15.6 % [facility] Comment: Interpretive Data Percent cell count reference ranges are not reported, since discordance with absolute values may lead to misinterpretation of CBC data. Current Interpretive Data was last revised on 2017. Eosinophil pct 2.8 % [facility] Comment: Interpretive Data Percent cell count reference ranges are not reported, since discordance with absolute values may lead to misinterpretation of CBC data. Current Interpretive Data was last revised on 2017. Basophil pct 0.7 % [facility] Comment: Interpretive Data Percent cell count reference ranges are not reported, since discordance with absolute values may lead to misinterpretation of CBC data. Current Interpretive Data was last revised on 2017. Blood 08/02/2024 5:45 AM WELDING EQUIPMENT SALES REPRESENTATIVE 08/02/2024 6:22 AM WELDING EQUIPMENT SALES REPRESENTATIVE us Padmini Mason NP LAB BLOOD ORDERABLES nal Result [facility] [id number] Department [place] [address] * (ABNORMAL) CBC with auto differential (08/02/2024 5:45 AM WELDING EQUIPMENT SALES REPRESENTATIVE) WBC 12.4(H) 3.8 - 9.9 K/cumm Hgb 7.5(L) 11.9 - 15.5 g/dL [facility] Hct 28.7(L) 35.6 - 45.5 % [facility] Plt 402(H) 150 - 400 K/cumm [facility] MPV 11.2 9.1 - 12.3 fL [facility] RBC 2.53(L) 3.90 - 5.20 M/cumm [facility] MCV 113.4(H) 81.3 - 96.4 fL [facility] MCH 29.6 27.1 - 33.3 pg [facility] MCHC 26.1(L) 32.3 - 35.7 g/dL [facility] RDW CV 20.7(H) 11.1 - 14.9 % [facility] RDW SD 85.8(H) 35.7 - 48.1 fL [facility] NRBC abs 0.08(H) 0.00 - 0.01 K/cumm [facility] Blood 08/02/2024 5:45 AM WELDING EQUIPMENT SALES REPRESENTATIVE 08/02/2024 6:22 AM WELDING EQUIPMENT SALES REPRESENTATIVE us Padmini Mason NP LAB BLOOD ORDERABLES nal Result Performing Organization Address City/State/ZIP [place] Phone Number [place] [address] [facility] [place] [address] from Last 3 Months Insurance [facility] MEDICARE IDID MEDICARE Advance Directives For more information, please contact: [phone] * Full Code (Latest Code Status on File) Date Activated Date Inactivated Comments 08/21/2024 2:16 AM 08/26/2024 10:55 PM * Full Code Date Activated Date Inactivated Comments 07/25/2024 6:59 PM 08/04/2024 7:42 PM * Full Code Date Activated Date Inactivated Comments 07/21/2024 6:30 PM 07/25/2024 6:50 PM Care Teams Senior Publications Specialist Relationship Specialty Start Date End Date Porsche Becker NP [address] [facility] [address] [place] [address] PCP - General Nurse Practitioner 08/19/24 Mookie Dubois MD Referring Physician Nephrology 02/20/22 Jama Hoskins MD [address] [place] [address] Consulting Physician Cardiology 02/20/24
--- OUTSIDE RECORDS SUMMARY | 2024-10-31 00:48 | XMS_ITS | Clinical Summary ---
Author Organization [facility] Address [address] [place] [address] Care Team Providers Care District Extension Service Agent Name Role Phone Unavailable Primary Care Provider Unavailabl e Source Comments [facility],non-owned Affiliates and Associated Physician Practices is amultiple site organization consisting of ambulatory clinics and hospital sitesin [place], [place], [place] and [place]. This disclosure is being madepursuant to the Care Everywhere program and may not contain all information available regarding this patient. 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
--- OUTSIDE RECORDS SUMMARY | 2024-10-31 00:48 | XMS_ITS | Clinical Summary ---
Author Organization [facility] [address] Address [address] [place] [address] Care Team Providers Care Tabulating Supervisor Name Role Phone Mookie Dubois MD Unavailable [phone] Jama Hoskins MD Unavailable [phone] Porsche Becker NP Primary Care Provider [phone] Allergies Active Allergy Reactions Criticality Noted Date [...] mouth 2 (two) times a day rx #[id number] 2024 Discontinued(D uplicate order) losartan (COZAAR) 50 [...] Description 10/10/2024 2:30 PM CDT Office Visit [facility] Medical Group Cardiology [address] [place] [phone] Lydia Lewis NP Need for lipid screening (Primary Dx); Hypotension due to hypovolemia; Persistent atrial fibrillation (HCC); Chronic anticoagulation; Preoperative cardiovascular examination 10/10/2024 Telephone [facility] Transplant Kidney [address] Mailstop [phone] [place] [address] Abigail Dougherty RN 09/30/2024 Telephone [facility] Medical [facility] Cardiology [address] [place] [address] [address] [place] [phone] Jama Hoskins MD 09/05/2024 Telephone [facility] Cardiology [address] [place] [address] [place] [phone] Jama Hoskins MD 09/03/2024 Telephone [facility] Transplant Kidney [address] Mailstop [phone] [place] [address] Abigail Dougherty, RUPESH 08/28/2024 Home Care Visit [address] [address] [address] [place] [address] Lillian Campuzano, MARILEE PT VIRTUAL NON OASIS DISCHARGE 08/20/2024 7:40 PM CIGAR BINDER - 08/26/2024 6:54 PM CIGAR BINDER Hospital Encounter [address] [address] Mike Connell MD Myla, Lathamanjari, MD Anemia due to chronic kidney disease, on chronic dialysis (HCC) (Primary Dx) Discharge Disposition: Discharge to home or self care 08/20/2024 11:15 AM CIGAR BINDER Home Care Visit [address] [address] [address] [place] [address] Ana Cristina Kelley COTA CASE COMMUNICATION 08/20/2024 10:45 AM CIGAR BINDER Home Care Visit [address] [address] [place] [address] Dominga Head, RYAN PT HOME VISIT 08/20/2024 Home Care Visit [address] [place] [address] Lillian Campuzano, PT PT OASIS TRANSFER W/OUT DC 08/20/2024 Home Care Visit [address] [address] [place] [address] Dominga Head, RYAN CASE COMMUNICATION 08/20/2024 Telephone [facility] Cardiology [address] [place] [address] [place] [phone] Lydia Lewis, JOSE C 08/19/2024 11:30 AM CIGAR BINDER Office Visit [address] [place] [phone] Lydia Lewis, JOSE C Hypotension due to hypovolemia (Primary Dx); Dilated cardiomyopathy (HCC); Persistent atrial fibrillation (HCC); Chronic anticoagulation; ESRD (end stage renal disease) on dialysis (HCC) 08/14/2024 Telephone [facility] Cardiology [address] [place] [address] [address] [place] [phone] Jama Hoskins MD Hypotension 08/12/2024 12:45 PM CIGAR BINDER Home Care Visit [address] [address] [place] [address] Dominga Head, RYAN PT HOME VISIT 08/12/2024 10:00 AM CIGAR BINDER Home Care Visit [address] [place] [address] Zofia Cosby, OT OT INITIAL EVALUATION 08/12/2024 Home Care Visit [address] [address] [place] [address] Lillian Campuzano, PT CARE CONFERENCE 08/09/2024 Home Care Visit [address] [place] [address] Magui Friedman, RUPESH NURSE MED RECON FOR THERAPY 08/07/2024 8:30 AM CIGAR BINDER Home Care Visit [address] [place] [address] Lillian Campuzano, PT PT OASIS START OF CARE 08/07/2024 Plan of Care Documentation [address] [place] [address] 08/06/2024 Telephone [facility] Home Care Services [address] [place] [address] Carson Huffman MA 08/05/2024 Telephone [facility] Home Care Services [address] [place] [address] Carson Huffman MA 08/04/2024 Telephone [facility] Medical Group Cardiology [address] [facility] [address], [place] [phone] Tanisha Winter NP 08/03/2024 Travel 07/25/2024 6:50 PM CIGAR BINDER - 08/04/2024 3:37 PM CIGAR BINDER Hospital Encounter [facility] Physical Medicine and Rehabilitation [address] [place] [address] Nga Dumont MD Physical deconditioning [R53.81] (Primary [...] materials from doctor or pharmacy Sometimes 08/07/2024 [facility] Utilities Answer Date Recorded In the past 12 months has th e Iddiction, gas, oil, or water company threatened to [...] often do you attend chur ch or oriental orthodox services? Patient declined 07/26/2024 Do you belong to any clubs o r organizations such as sabianist groups, unions, fraternal or athletic groups, or [...] staff should administer the PHQ-9) 0 08/21/2024 [facility] - Occupational Stress [...] any time in the past 12 m [facility], were you homeless or living in a snf (including now)? No 07/26/2024 Personal Safety Answer Date Recorded Have you ever been in or are you currently in a harmful physical or emotional relationship or is someone making you feel afraid or unsafe? Denies 08/21/2024 Comments Unknown Sex and Gender Information Value Date Recorded Sex Assigned at Not on file 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 CIGAR BINDER Gender Identity Not on file Sexual Orientation Not on file Obstetrics History Last Filed Vital Signs Vital Sign Reading Time Taken Comments Blood Pressure 80/58 10/10/2024 2:37 PM CDT Pulse 117 10/10/2024 2:37 PM CDT Temperature 36.8 C (98.3 F) 08/26/2024 3:53 PM CIGAR BINDER Respiratory Rate 18 08/26/2024 3:53 PM CIGAR BINDER Oxygen Saturation 97% 10/10/2024 2:37 PM CDT [...] history exists Medical Devices Implanted Type Area Engraver Rubber Device Identifier Shelf Expiration Date Model / Serial / Lot Dental Implant Other - see comments Description:Upper [employer] Liberty 15fr 62cm 2 Cuff Radiopaque Peritoneal Curl Catheter [id number] - [id number] Implanted:Qty: 1 on 04/03/2022 by Sulaiman Hi MD at [facility] Left: Abdomen [employer] 10/16/2026 [id number] / / [id number] Procedures Procedure Name Priority Date/Time Associated Diagnosis Comments POCT LIPID PANEL Routine 10/10/2024 4:22 PM CDT Need for lipid screening ELECTROCARDIOGRAM REPORT Routine 10/10/2024 4:08 PM CDT Persistent atrial fibrillation (HCC) DIFFERENTIAL AUTO Routine 08/26/2024 2:3 6 AM CIGAR BINDER CBC WITH AUTO DIFFERENTIAL Routine 08/26/2024 2:36 AM CIGAR BINDER CONTINUOUS CYCLIC PERITONEAL DIALYSIS (CCPD) Routine 08/26/2024 12:31 AM CIGAR BINDER XR CHEST 1 VIEW IP Routine 08/25/2024 3:10 PM CIGAR BINDER CELL DIFFERENTIAL, BODY FLUID Routine 08/25/2024 2:32 PM CIGAR BINDER AMYLASE, BODY FLUID Routine 08/25/2024 2 :32 PM CIGAR BINDER CELL COUNT W/REFLEX DIFFERENTIAL, BODY FLUID Routine 08/25/2024 2:32 PM CIGAR BINDER GLUCOSE, BODY FLUID Routine 08/25/2024 2 :32 PM CIGAR BINDER LACTATE DEHYDROGENASE, BODY FLUID Routine 08/25/2024 2:32 PM CIGAR BINDER PROTEIN, BODY FLUID Routine 08/25/2024 2 :32 PM CIGAR BINDER XR CHEST PA LATERAL 2 VIEWS IP Routine 08/25/2024 8:27 AM CIGAR BINDER DIFFERENTIAL AUTO Routine 08/25/2024 3:0 3 AM CIGAR BINDER CBC WITH AUTO DIFFERENTIAL Routine 08/25/2024 3:03 AM CIGAR BINDER CYTOLOGY Routine 08/25/2024 12:00 AM CIGAR BINDER DIFFERENTIAL AUTO Routine 08/24/2024 4:3 4 AM CIGAR BINDER CBC WITH AUTO DIFFERENTIAL Routine 08/24/2024 4:34 AM CIGAR BINDER EGFR Routine 08/22/2024 9:54 AM CIGAR BINDER DIFFERENTIAL AUTO Routine 08/22/2024 9:5 4 AM CIGAR BINDER COMPREHENSIVE METABOLIC PANEL Routine 08/22/2024 9:54 AM CIGAR BINDER CBC WITH AUTO DIFFERENTIAL Routine 08/22/2024 9:54 AM CIGAR BINDER URINALYSIS, MICROSCOPIC ONLY Routine 08/21/2024 6:01 PM CIGAR BINDER URINE CULTURE Routine 08/21/2024 6:01 PM CIGAR BINDER URINALYSIS AND REFLEX TO MICROSCOPIC AND CULTURE Routine 08/21/2024 6:[address] CHEST ABDOMEN PELVIS WO CONTRAST ED Urgent/IP Urgent 08/21/2024 4:56 PM CIGAR BINDER VITAMIN B12 Routine 08/21/2024 7:44 AM CIGAR BINDER FOLATE Routine 08/21/2024 7:44 AM CIGAR BINDER IRON PROFILE W/ IBC Routine 08/21/2024 7 :44 AM CIGAR BINDER BLOOD CULTURE Routine 08/21/2024 7:44 AM CIGAR BINDER BLOOD CULTURE Routine 08/21/2024 7:44 AM CIGAR BINDER EGFR Routine 08/21/2024 2:52 AM CIGAR BINDER DIFFERENTIAL AUTO Routine 08/21/2024 2:5 2 AM CIGAR BINDER COMPREHENSIVE METABOLIC PANEL Routine 08/21/2024 2:52 AM CIGAR BINDER CBC WITH AUTO DIFFERENTIAL Routine 08/21/2024 2:52 AM CIGAR BINDER XR CHEST 1 VIEW ED 08/21/2024 1:09 AM CIGAR BINDER POTASSIUM, WHOLE BLOOD Timed 12:48 AM CIGAR BINDER HEMOGLOBIN AND HEMATOCRIT Timed 08/21/2024 12:48 AM CIGAR BINDER TRANSFUSE RED BLOOD CELLS Timed 08/20/2024 9:36 PM CIGAR BINDER PREPARE RBC STAT 08/20/2024 8:06 PM CIGAR BINDER APTT STAT 08/20/2024 8:02 PM CIGAR BINDER PROTIME-INR STAT 08/20/2024 8:02 PM CIGAR BINDER TYPE AND SCREEN STAT 08/20/2024 8:02 PM CIGAR BINDER EGFR STAT 08/20/2024 1:06 PM CIGAR BINDER DIFFERENTIAL AUTO STAT 08/20/2024 1:0 6 PM CIGAR BINDER MAGNESIUM Routine 08/20/2024 1:06 PM CIGAR BINDER COMPREHENSIVE METABOLIC PANEL STAT 08/20/2024 1:06 PM CIGAR BINDER CBC WITH AUTO DIFFERENTIAL STAT 08/20/2024 1:06 PM CIGAR BINDER ECG 12-LEAD Routine 08/20/2024 12:45 PM CIGAR BINDER DIFFERENTIAL AUTO Routine 08/02/2024 5:4 5 AM CIGAR BINDER CBC WITH AUTO DIFFERENTIAL Routine 08/02/2024 5:45 AM CIGAR BINDER from Last 3 Months Results * POCT lipid panel (10/10/2024 4:22 PM CDT) Cholesterol, POC 239 mg/dL Comment:GLU = 119 HDL, POC N/A mg/dL Triglycerides, POC >650 mg/dL LDL Cholesterol POC N/A mg/dL Chol/HDL Ratio, POC N/A Non-HDL Cholesterol, POC N/A mg/dL Cholesterol Total, POC 239 mg/dL Capillary blood 10/10/2024 4 :22 PM CDT Lydia Lewis SKI PATROL DIRECTOR POINT OF CARE TEST ORDERA BLES Final Result * Electrocardiogram Report (10/10/2024 4:08 PM CDT) Lydia Lewis SKI PATROL DIRECTOR ECG ORDERABLES Final Res ult * (ABNORMAL) Differential, auto (08/26/2024 2:36 AM CIGAR BINDER) Neutrophil abs 7.6(H) 1.5 - 6.5 K/cumm Imm gran abs 0.1 0.0 - 0.1 K/cumm [facility] Lymphocyte abs 0.6(L) 0.8 - 3.3 K/cumm [facility] Monocyte abs 1.3(H) 0.2 - 0.8 K/cumm [facility] Eosinophil abs 0.2 0.0 - 0.5 K/cumm [facility] Basophil abs 0.1 0.0 - 0.1 K/cumm [facility] Neutrophil pct 77.1 % [facility] Comment: Interpretive Data Percent cell count reference ranges are not reported, since discordance with absolute values may lead to misinterpretation of CBC data. Current Interpretive Data was last revised on 2017. Imm gran pct 1.3 % [facility] Comment: Interpretive Data Percent cell count reference ranges are not reported, since discordance with absolute values may lead to misinterpretation of CBC data. Current Interpretive Data was last revised on 2017. Lymphocyte pct 5.7 % [facility] Comment: Interpretive Data Percent cell count reference ranges are not reported, since discordance with absolute values may lead to misinterpretation of CBC data. Current Interpretive Data was last revised on 2017. Monocyte pct 13.0 % [facility] Comment: Interpretive Data Percent cell count reference ranges are not reported, since discordance with absolute values may lead to misinterpretation of CBC data. Current Interpretive Data was last revised on 2017. Eosinophil pct 2.3 % [facility] Comment: Interpretive Data Percent cell [...] revised on 2017. Blood 08/26/2024 2:36 AM CIGAR BINDER 08/26/2024 4:06 AM CIGAR BINDER Bobby Ya MD LAB BLOOD ORDERABLES Final Result [facility] [address] Department [place] [address] * (ABNORMAL) CBC with auto differential (08/26/2024 2:36 AM CIGAR BINDER) WBC 9.9 3.8 - 9.9 K/cumm Hgb 7.2(L) 11.9 - 15.5 g/dL [facility] Hct 24.2(L) 35.6 - 45.5 % [facility] Plt 383 150 - 400 K/cumm [facility] MPV 8.7(L) 9.1 - 12.3 fL [facility] RBC 2.36(L) 3.90 - 5.20 M/cumm [facility] MCV 102.5(H) 81.3 - 96.4 fL [facility] MCH 30.5 27.1 - 33.3 pg [facility] MCHC 29.8(L) 32.3 - 35.7 g/dL [facility] RDW CV 15.9(H) 11.1 - 14.9 % [facility] RDW SD 58.7(H) 35.7 - 48.1 fL [facility] NRBC abs 0.00 0.00 - 0.01 K/cumm [facility] Blood 08/26/2024 2:36 AM CIGAR BINDER 08/26/2024 4:06 AM CIGAR BINDER Bobby Ya MD LAB BLOOD ORDERABLES Final Result [facility] [address] Department [place] [address] * XR Chest 1 Vw Portable (08/25/2024 3:10 PM CIGAR BINDER) Anatomical Region Laterality Modality Body, Chest N/A Computed Radiogr aphy 08/25/2024 3:29 PM CIGAR BINDER Impressions 08/25/2024 3:29 PM CIGAR BINDER FINDINGS/IMPRESSION: Small bilateral pleural effusions. No consolidation. Borderline cardiomegaly. No acute osseous abnormality. Electronically signed by: Peter Porter II, D.O. Narrative 08/25/2024 3:29 PM CIGAR BINDER EXAMINATION: XR CHEST 1 VIEW DATE: 08/25/2024 2:10 PM INDICATION: Thoracentesis. COMPARISON: 09/17/2024. Procedure Note Petre Porter II, DO - 08/25/2024 EXAMINATION: XR CHEST 1 VIEW DATE: 08/25/2024 2:10 PM INDICATION: Thoracentesis. COMPARISON: 09/17/2024. IMPRESSION: FINDINGS/IMPRESSION: Small bilateral pleural effusions. No consolidation. Borderline cardiomegaly. No acute osseous abnormality. Electronically signed by: Peter Porter II, D.O. Charles Hendrickson MD IMG XR PROCEDURES Final Result * Cell Differential, Body Fluid (08/25/2024 2:32 PM CIGAR BINDER) Total cells diffed 82 % Comment: Interpretive [...] fld 2 % [facility] Fluid 08/25/2024 2:3 2 PM CIGAR BINDER 08/25/2024 2:32 PM CIGAR BINDER Charles Hendrickson MD LAB BODY FLUIDS AND STO OLS ORDERABLES Final Result Performing Organization Address [facility] de Phone Number [facility] [place] [address] [place] [address] * Cell count w/rflx diff, body fluid (08/25/2024 2:32 PM CIGAR BINDER) Specimen type, fld Pleural Body site, fld [...] /cumm [facility] Fluid 08/25/2024 2:32 PM CIGAR BINDER 08/25/2024 2:32 PM CIGAR BINDER Charles Hendrickson MD LAB BODY FLUIDS AND STO OLS ORDERABLES Final Result Performing Organization Address [facility] de Phone Number [facility] [place] [address] [place] [address] * Protein, body fluid (08/25/2024 2:32 PM CIGAR BINDER) Specimen type, fld Pleural Comment:Testing performed by : [facility], [address] [facility] [place]., [address] Body site, fld Pleural fluid, left [facility] Comment:Testing performed by : [facility], [address] [facility], [place]., [address] Protein, fld 3.5 g/dL [facility] Comment: The above specimen type [...] was last revised 2019. Testing performed by: [facility], [address] [place]., [address] Fluid 08/25/2024 2:32 PM CIGAR BINDER 08/25/2024 5:52 PM CIGAR BINDER us Charles Hendrickson MD LAB BODY FLUIDS AND STO OLS ORDERABLES Final Result [facility] [address] Department [place] [address] * Lactate dehydrogenase, body fluid (08/25/2024 2:32 PM CIGAR BINDER) Specimen type, fld Pleural Comment:Testing performed by : [facility], [address] [facility], [place]., [address] Body site, fld Pleural fluid, left [facility] Comment:Testing performed by : [facility], [address] [place]., [address] LD, fld 151 Units/L [facility] Comment: [...] was last revised 2019. Testing performed by: [facility], [address] [place] [address]., [address] Fluid 08/25/2024 2:32 PM CIGAR BINDER 08/25/2024 5:52 PM CIGAR BINDER us Charles Hendrickson MD LAB BODY FLUIDS AND STO OLS ORDERABLES Final Result [facility] [place] [address] [facility] Department [place] [address] * Glucose, body fluid (08/25/2024 2:32 PM CIGAR BINDER) Specimen type, fld Pleural Comment:Testing performed by : [facility], [address] [place]., [address] Body site, fld Pleural fluid, left [facility] Comment:Testing performed by : [facility], [address] [place]., [address] Glucose, fld 109 mg/dL [facility] Comment: [...] and Management. Meir Clin J Med 2005;72:854-72. mobile mum Test directory, Body Fluid Reference Intervals and/or Interpretative Information. [email or web address] Danika COUCH et al. Pancreatic cyst fluid glucose: rapid, inexpensive, and accurate diagnosis of mucinous pancreatic cysts. Surgery 2018;163:600-5. Ribaldone DG et al. Differential diagnosis of pancreatic cysts: A prospective study on the role of intra-cystic glucose concentration. Digestive Liver Dis 2020;52:1026-32. Current Interpretive Data was last revised 2021. Testing performed by: [facility], [address] [place]., [address] Fluid 08/25/2024 2:32 PM CIGAR BINDER 08/25/2024 5:52 PM CIGAR BINDER Narrative [facility] - 08/25/2024 7:28 PM CIGAR BINDER Body Fluid Type->Pleural us Charles Hendrickson MD LAB BODY FLUIDS AND STO OLS ORDERABLES Final Result [facility] [address] Department [place] [address] * Amylase, body fluid (08/25/2024 2:32 PM CIGAR BINDER) Specimen type, fld Pleural fluid, left Comment:Testing performed by : [facility], [address] [place] [address]., [address] Amylase, fld <30 Units/L [facility] Comment: Repeated and Verified The above specimen [...] 2018. Chapter 43, Body Fluids, p. 925 mobile mum Test directory, Body Fluid Reference Intervals and/or Interpretative Information. [email or web address] Current Interpretive Data was last revised 2019. Testing performed by: [facility], [address] [place] [address]., [id number] Fluid 08/25/2024 2:32 PM CIGAR BINDER 08/25/2024 5:52 PM CIGAR BINDER Charles Hendrickson MD LAB BODY FLUIDS AND STO OLS ORDERABLES Final Result [facility] [place] [address] Department of Laboratories [place] [id number] * XR Chest PA Lateral 2 Views (08/25/2024 8:27 AM CIGAR BINDER) Anatomical Region Laterality Modality Body, Chest N/A Computed Radiogr aphy 08/25/2024 8:52 AM CIGAR BINDER Impressions 08/25/2024 8:52 AM CIGAR BINDER PERSISTENT PLEURAL EFFUSIONS LARGER ON THE LEFT THAN THE RIGHT. MILD FLUID OVERLOAD Electronically signed by: Bryant Alvarez M.D. Narrative 08/25/2024 8:52 AM CIGAR BINDER EXAMINATION: XR CHEST PA LATERAL 2 VIEWS [...] * (ABNORMAL) Differential, auto (08/25/2024 3:03 AM CIGAR BINDER) Neutrophil abs 7.4(H) 1.5 - 6.5 K/cumm Imm gran abs 0.1 0.0 - 0.1 K/cumm [facility] Lymphocyte abs 0.6(L) 0.8 - 3.3 K/cumm [facility] Monocyte abs 1.3(H) 0.2 - 0.8 K/cumm [facility] Eosinophil abs 0.3 0.0 - 0.5 K/cumm [facility] Basophil abs 0.1 0.0 - 0.1 K/cumm [facility] Neutrophil pct 75.8 % [facility] Comment: Interpretive Data Percent cell count reference ranges are not reported, since discordance with absolute values may lead to misinterpretation of CBC data. Current Interpretive Data was last revised on 2017. Imm gran pct 1.0 % [facility] Comment: Interpretive Data Percent cell count reference ranges are not reported, since discordance with absolute values may lead to misinterpretation of CBC data. Current Interpretive Data was last revised on 2017. Lymphocyte pct 6.6 % [facility] Comment: Interpretive Data Percent cell count reference ranges are not reported, since discordance with absolute values may lead to misinterpretation of CBC data. Current Interpretive Data was last revised on 2017. Monocyte pct 13.3 % [facility] Comment: Interpretive Data Percent cell count reference ranges are not reported, since discordance with absolute values may lead to misinterpretation of CBC data. Current Interpretive Data was last revised on 2017. Eosinophil pct 2.7 % [facility] Comment: Interpretive Data Percent cell count reference ranges are not reported, since discordance with absolute values may lead to misinterpretation of CBC data. Current Interpretive Data was last revised on 2017. Basophil pct 0.6 % [facility] Comment: Interpretive Data Percent cell count reference ranges are not reported, since discordance with absolute values may lead to misinterpretation of CBC data. Current Interpretive Data was last revised on 2017. Blood 08/25/2024 3:03 AM CIGAR BINDER 08/25/2024 4:15 AM CIGAR BINDER us Bobby Ya MD LAB BLOOD ORDERABLES Final Result [facility] [address] Department [place] [address] * (ABNORMAL) CBC with auto differential (08/25/2024 3:03 AM CIGAR BINDER) WBC 9.8 3.8 - 9.9 K/cumm Hgb 7.3(L) 11.9 - 15.5 g/dL [facility] Hct 24.3(L) 35.6 - 45.5 % [facility] Plt 424(H) 150 - 400 K/cumm [facility] MPV 8.6(L) 9.1 - 12.3 fL [facility] RBC 2.36(L) 3.90 - 5.20 M/cumm [facility] MCV 103.0(H) 81.3 - 96.4 fL [facility] MCH 30.9 27.1 - 33.3 pg [facility] MCHC 30.0(L) 32.3 - 35.7 g/dL [facility] RDW CV 16.2(H) 11.1 - 14.9 % [facility] RDW SD 61.8(H) 35.7 - 48.1 fL [facility] NRBC abs 0.00 0.00 - 0.01 K/cumm [facility] Blood 08/25/2024 3:03 AM CIGAR BINDER 08/25/2024 4:15 AM CIGAR BINDER Bobby Ya MD LAB BLOOD ORDERABLES Final Result [facility] [address] Department [place] [address] * Cytology (08/25/2024 12:00 AM CIGAR BINDER) Fluid (Pleura (Cytology)) 08/25/2024 08/25/2024 2:53 PM CIGAR BINDER Narrative PATHOLOGY CH - 08/27/2024 12:43 PM CIGAR BINDER EPIC results best viewed via link to PDF [facility] Department of Pathology [address] [place] [id number] Note to Patients: This report may [...] Final Report Patient Name: DORY NOBLE Address: [address] [place] [address] Gender: F : 1960 (Age: 63) Service: Medical Location: [facility] Hospital # [id number] Patient Type: IP Taken: 08/25/2024 Received: 08/25/2024 Accessioned: 08/25/2024 Reported: [...] determined by the Surgical Pathology Department at [facility] as part of an ongoing senior quality assurance engineer program and in compliance with federally [...] characteristics determined by the Surgical Pathology Department [facility]. It has not been cleared or approved by the U. S. Food and Drug Administration. Unless otherwise noted all cytology processing, staining and screening is performed at [facility] ([address] [place] [address]). REPORT IMAGES AND SCANNED DOCUMENTS, IF INCLUDED, ONLY VIEWABLE IN PDF VERSION OF REPORT Charles Hendrickson MD LAB CYTOLOGY ORDERABLES [place] [address] * (ABNORMAL) Differential, auto (08/24/2024 4:34 AM CIGAR BINDER) Neutrophil abs 7.9(H) 1.5 - 6.5 K/cumm Imm gran abs 0.1 0.0 - 0.1 K/cumm [facility] Lymphocyte abs 0.6(L) 0.8 - 3.3 K/cumm [facility] Monocyte abs 1.3(H) 0.2 - 0.8 K/cumm [facility] Eosinophil abs 0.3 0.0 - 0.5 K/cumm [facility] Basophil abs 0.1 0.0 - 0.1 K/cumm [facility] Neutrophil pct 77.1 % [facility] Comment: Interpretive Data Percent cell count reference ranges are not reported, since discordance with absolute values may lead to misinterpretation of CBC data. Current Interpretive Data was last revised on 2017. Imm gran pct 1.4 % [facility] Comment: Interpretive Data Percent cell count reference ranges are not reported, since discordance with absolute values may lead to misinterpretation of CBC data. Current Interpretive Data was last revised on 2017. Lymphocyte pct 5.4 % [facility] Comment: Interpretive Data Percent cell count reference ranges are not reported, since discordance with absolute values may lead to misinterpretation of CBC data. Current Interpretive Data was last revised on 2017. Monocyte pct 12.6 % [facility] Comment: Interpretive Data Percent cell count reference ranges are not reported, since discordance with absolute values may lead to misinterpretation of CBC data. Current Interpretive Data was last revised on 2017. Eosinophil pct 2.9 % [facility] Comment: Interpretive Data Percent cell count reference ranges are not reported, since discordance with absolute values may lead to misinterpretation of CBC data. Current Interpretive Data was last revised on 2017. Basophil pct 0.6 % [facility] Comment: Interpretive Data Percent cell count reference ranges are not reported, since discordance with absolute values may lead to misinterpretation of CBC data. Current Interpretive Data was last revised on 2017. Blood 08/24/2024 4:34 AM CIGAR BINDER 08/24/2024 4:49 AM CIGAR BINDER Bobby Ya MD LAB BLOOD ORDERABLES Final Result [facility] [address] [place] [address] * (ABNORMAL) CBC with auto differential (08/24/2024 4:34 AM CIGAR BINDER) WBC 10.3(H) 3.8 - 9.9 K/cumm Hgb 7.0(L) 11.9 - 15.5 g/dL [facility] Hct 23.3(L) 35.6 - 45.5 % [facility] Plt 410(H) 150 - 400 K/cumm [facility] MPV 8.4(L) 9.1 - 12.3 fL [facility] RBC 2.24(L) 3.90 - 5.20 M/cumm [facility] MCV 104.0(H) 81.3 - 96.4 fL [facility] MCH 31.3 27.1 - 33.3 pg [facility] MCHC 30.0(L) 32.3 - 35.7 g/dL [facility] RDW CV 16.7(H) 11.1 - 14.9 % [facility] RDW SD 64.5(H) 35.7 - 48.1 fL [facility] NRBC abs 0.00 0.00 - 0.01 K/cumm [facility] Blood 08/24/2024 4:34 AM CIGAR BINDER 08/24/2024 4:49 AM CIGAR BINDER us Bobby Ya MD LAB BLOOD ORDERABLES Final Result Performing Organization Address [facility] Co de Phone Number LAINE [address] [place] [address] * (ABNORMAL) eGFR (08/22/2024 9:54 AM CIGAR BINDER) eGFR 3(L) >=60 mL/min/1. 73 m2 Comment: [...] last reviewed 2021. Blood 08/22/2024 9:54 AM CIGAR BINDER 08/22/2024 10:37 AM CIGAR BINDER us Kala Barbosa NP LAB BLOOD ORDERABLES Final R esult Performing Organization Address City/[facility]/ZIP Co de Phone Number [facility] [address] [employer] [place], [place] [id number] * (ABNORMAL) Differential, auto (08/22/2024 9:54 AM CIGAR BINDER) Neutrophil abs 9.3(H) 1.5 - 6.5 K/cumm Imm gran abs 0.2(H) 0.0 - 0.1 K/cumm [facility] Lymphocyte abs 0.7(L) 0.8 - 3.3 K/cumm [facility] Monocyte abs 1.2(H) 0.2 - 0.8 K/cumm [facility] Eosinophil abs 0.3 0.0 - 0.5 K/cumm [facility] Basophil abs 0.1 0.0 - 0.1 K/cumm [facility] Neutrophil pct 79.3 % [facility] Comment: Interpretive Data Percent cell count reference ranges are not reported, since discordance with absolute values may lead to misinterpretation of CBC data. Current Interpretive Data was last revised on 2017. Imm gran pct 1.3 % [facility] Comment: Interpretive Data Percent cell count reference ranges are not reported, since discordance with absolute values may lead to misinterpretation of CBC data. Current Interpretive Data was last revised on 2017. Lymphocyte pct 5.7 % [facility] Comment: Interpretive Data Percent cell count reference ranges are not reported, since discordance with absolute values may lead to misinterpretation of CBC data. Current Interpretive Data was last revised on 2017. Monocyte pct 10.4 % [facility] Comment: Interpretive Data Percent cell count reference ranges are not reported, since discordance with absolute values may lead to misinterpretation of CBC data. Current Interpretive Data was last revised on 2017. Eosinophil pct 2.7 % [facility] Comment: Interpretive Data Percent cell [...] revised on 2017. Blood 08/22/2024 9:54 AM CIGAR BINDER 08/22/2024 10:36 AM CIGAR BINDER Kala Barbosa SKI PATROL DIRECTOR LAB BLOOD ORDERABLES Final R esult Performing Organization Address City/[facility]/ZIP Co de Phone Number [facility]INE [place] [address] [place] [address] * (ABNORMAL) CBC with auto differential (08/22/2024 9:54 AM CIGAR BINDER) Pathologist [facility] WBC 11.7(H) 3.8 - 9.9 K/cumm Hgb [...] K/cumm [facility] Blood 08/22/2024 9:54 AM CIGAR BINDER 08/22/2024 10:36 AM CIGAR BINDER Kala Barbosa SKI PATROL DIRECTOR LAB BLOOD ORDERABLES Final R esult [facility] [place] [address] [place] [address] * (ABNORMAL) Comprehensive metabolic panel (08/22/2024 9:54 AM CIGAR BINDER) Pathologist [facility] Sodium 137 135 - 145 mmol/L Potassium, [...] Units/L [facility] Blood 08/22/2024 9:54 AM CIGAR BINDER 08/22/2024 10:37 AM CIGAR BINDER Kala Barbosa NP LAB BLOOD ORDERABLES Final R esult [facility] [address] Department [place] [address] * (ABNORMAL) Urinalysis reflex to microscopic and culture Urine, clean voided (08/21/2024 6:01 PM CIGAR BINDER) Color, ur Mitzi Yellow Clarity, ur Turbid(A) [...] tendency for uric acid stone formation. Source: [facility] Current Interpretive Data was last revised [...] to microscopic UA will be performed. [facility] Urine, clean voided 08/21/2024 6:01 PM CIGAR BINDER 08/21/2024 6:06 PM CIGAR BINDER Bobby Ya MD LAB MICROBIOLOGY - GENERAL ORDERABLES Final Result Performing Organization Address [facility] Co de Phone Number [facility]INE [place] [address] [place] [address] * (ABNORMAL) Urinalysis, microscopic only (08/21/2024 6:01 PM CIGAR BINDER) WBC, ur >50(A) 0 - 5 /HPF RBC, ur >50(A) 0 - 2 /HPF [facility] Epithelial cells, squamous, ur 21-50(A) 0 - 5 /HPF [facility] Culture Reflex Comment Reflex to urine culture will be performed. [facility] Urine, clean voided 08/21/2024 6:01 PM CIGAR BINDER 08/21/2024 6:06 PM CIGAR BINDER Bobby Ya MD LAB URINE ORDERABLES Final Result Performing Organization Address City/[facility] Co de Phone Number LAINE [place] [address] [place] [address] * Urine culture Urine, clean voided (08/21/2024 6:01 PM CIGAR BINDER) Report Final Report: Less than 100,000 colonies/mL (clinically insignificant growth based on current clinical standards) Comment:Testing performed by : [facility], [address] [place] [address] Organism (CLINICALLY INSIGNIFICANT GROWTH [facility]INE Urine, clean voided 08/21/2024 6:01 PM CIGAR BINDER 08/21/2024 8:14 PM CIGAR BINDER Narrative LAINE - 08/23/2024 7:20 AM CIGAR BINDER Urine culture reflexed based upon urinalysis results. Testing performed by [facility] Microbiology Laboratory ([phone]) Bobby Ya MD LAB MICROBIOLOGY - GENERAL ORDERABLES Final Result [facility] [address] [place] [address] * CT Chest Abdomen Pelvis WO Contrast (08/21/2024 4:56 PM CIGAR BINDER) Anatomical Region Laterality Modality Body N/A Computed Tomogra phy 08/21/2024 5:31 PM CIGAR BINDER Impressions 08/22/2024 2:24 PM CIGAR BINDER Moderate loculated left pleural effusion with left [...] Priscila Ochoa M.D. Narrative 08/22/2024 2:24 PM CIGAR BINDER EXAM: CT CHEST, ABDOMEN AND PELVIS WITHOUT [...] noted without pericardial effusion..Atherosclerotic nonaneurysmal aorta with [id number] calcified plaque and mild aortic valvular calcification [...] noted without pericardial effusion..Atherosclerotic nonaneurysmal aorta with [id number] calcified plaque and mild aortic valvular calcification [...] Iron profile w/ IBC (08/21/2024 7:44 AM CIGAR BINDER) Iron 164(H) 35 - 145 mcg/dl TIBC 254 250 - 400 mcg/dL [facility] Transferrin saturation 65(H) 20 - 50 % [facility] Blood 08/21/2024 7:4 4 AM CIGAR BINDER 08/21/2024 9:19 AM CIGAR BINDER Kala Barbosa NP LAB BLOOD ORDERABLES Final R esult [facility] [address] Department [place] [address] * Blood culture Blood (08/21/2024 7:44 AM CIGAR BINDER) Report Final Report: No growth Comment:Testing performed by : [facility], [address] [place]., [address] Blood 08/21/2024 7:44 AM CIGAR BINDER 08/21/2024 12:57 PM CIGAR BINDER Narrative [facility] - 08/25/2024 4:00 PM CIGAR BINDER From a different site than #1. Collection->Peripheral [...] performance characteristics have been verified by the [facility] Microbiology Laboratory. For questions about this culture, contact the Microbiology Laboratory at [phone]. Interpretive data was last revised on 24. Kala Barbosa SKI PATROL DIRECTOR LAB MICROBIOLOGY - GENERAL O RDERABLES Final Result LA[facility] [address] [place] [address] * Blood culture Blood (08/21/2024 7:44 AM CIGAR BINDER) Report Final Report: No growth Comment:Testing performed by : [facility], [address] [place]., [address] Blood 08/21/2024 7:44 AM CIGAR BINDER 08/21/2024 12:57 PM CIGAR BINDER Narrative LAINE TOWNSEND - 08/25/2024 4:00 PM CIGAR BINDER Collection->Peripheral 1. Blood cultures are incubated for [...] performance characteristics have been verified by the [facility] Microbiology Laboratory. For questions about this culture, contact the Microbiology Laboratory at [phone]. Interpretive data was last revised on 24. Kala Barbosa NP LAB MICROBIOLOGY - GENERAL O RDERABLES Final Result Performing Organization Address [facility] Co de Phone Number LAINE [place] [address] [place], [place] [id number] * Folate (08/21/2024 7:44 AM CIGAR BINDER) Pathologist [facility] Folic acid >20.0 >=5.0 ng/mL Comment:Hemolysis present. R esults may be affected. Blood 08/21/2024 7:44 AM CIGAR BINDER 08/21/2024 9:19 AM CIGAR BINDER Kala Barbosa NP LAB BLOOD ORDERABLES Final R esult Performing Organization Address [facility] de Phone Number LAINE [place] [address] [place] [address] * (ABNORMAL) Vitamin B12 (08/21/2024 7:44 AM CIGAR BINDER) Pathologist [facility] Vitamin B12 1,704(H) 230 - 1,250 pg/mL Blood 08/21/2024 7:44 AM CIGAR BINDER 08/21/2024 9:19 AM CIGAR BINDER Kala Barbosa SKI PATROL DIRECTOR LAB BLOOD ORDERABLES Final R esult Performing Organization Address [facility] Co de Phone Number LAINE T[place] [address] [employer] [place], [place] [id number] * (ABNORMAL) eGFR (08/21/2024 2:52 AM CIGAR BINDER) Pathologist [facility] eGFR 4(L) [...] last reviewed 2021. Blood 08/21/2024 2:52 AM CIGAR BINDER 08/21/2024 3:17 AM CIGAR BINDER us Kala Barbosa NP LAB BLOOD ORDERABLES Final R esult [facility] [address] [place] [address] * (ABNORMAL) Differential, auto (08/21/2024 2:52 AM CIGAR BINDER) Neutrophil abs 9.6(H) 1.5 - 6.5 K/cumm Imm gran abs 0.2(H) 0.0 - 0.1 K/cumm [facility] Lymphocyte abs 1.0 0.8 - 3.3 K/cumm [facility] Monocyte abs 1.4(H) 0.2 - 0.8 K/cumm [facility] Eosinophil abs 0.3 0.0 - 0.5 K/cumm [facility] Basophil abs 0.1 0.0 - 0.1 K/cumm [facility] Neutrophil pct 76.2 % [facility] Comment: Interpretive Data Percent cell count reference ranges are not reported, since discordance with absolute values may lead to misinterpretation of CBC data. Current Interpretive Data was last revised on 2017. Imm gran pct 1.4 % [facility] Comment: Interpretive Data Percent cell count reference ranges are not reported, since discordance with absolute values may lead to misinterpretation of CBC data. Current Interpretive Data was last revised on 2017. Lymphocyte pct 8.2 % [facility] Comment: Interpretive Data Percent cell count reference ranges are not reported, since discordance with absolute values may lead to misinterpretation of CBC data. Current Interpretive Data was last revised on 2017. Monocyte pct 11.4 % [facility] Comment: Interpretive Data Percent cell count reference ranges are not reported, since discordance with absolute values may lead to misinterpretation of CBC data. Current Interpretive Data was last revised on 2017. Eosinophil pct 2.1 % [facility] Comment: Interpretive Data Percent cell count reference ranges are not reported, since discordance with absolute values may lead to misinterpretation of CBC data. Current Interpretive Data was last revised on 2017. Basophil pct 0.7 % [facility] Comment: Interpretive Data Percent cell count reference ranges are not reported, since discordance with absolute values may lead to misinterpretation of CBC data. Current Interpretive Data was last revised on 2017. Blood 08/21/2024 2:52 AM CIGAR BINDER 08/21/2024 3:18 AM CIGAR BINDER us Kala Barbosa NP LAB BLOOD ORDERABLES Final R esult [facility] [address] [place] [address] * (ABNORMAL) CBC with auto differential (08/21/2024 2:52 AM CIGAR BINDER) WBC 12.6(H) 3.8 - 9.9 K/cumm Hgb 7.4(L) 11.9 - 15.5 g/dL [facility] Hct 24.1(L) 35.6 - 45.5 % [facility] Plt 478(H) 150 - 400 K/cumm [facility] MPV 8.3(L) 9.1 - 12.3 fL [facility] RBC 2.36(L) 3.90 - 5.20 M/cumm [facility] MCV 102.1(H) 81.3 - 96.4 fL [facility] MCH 31.4 27.1 - 33.3 pg [facility] MCHC 30.7(L) 32.3 - 35.7 g/dL [facility] RDW CV 18.6(H) 11.1 - 14.9 % [facility] RDW SD 68.8(H) 35.7 - 48.1 fL [facility] NRBC abs 0.00 0.00 - 0.01 K/cumm [facility] Blood 08/21/2024 2:52 AM CIGAR BINDER 08/21/2024 3:18 AM CIGAR BINDER us Kala Barbosa NP LAB [place]LOOD [place] [address] [place] [address] * (ABNORMAL) Comprehensive metabolic panel (08/21/2024 2:52 AM CIGAR BINDER) Sodium 136 135 - 145 mmol/L Potassium, [...] Units/L [facility] Blood 08/21/2024 2:52 AM CIGAR BINDER 08/21/2024 3:17 AM CIGAR BINDER us Kala Barbosa SKI PATROL DIRECTOR LAB BLOOD ORDERABLES Final R esult [facility] [place] [address] [place] [address] * XR Chest 1 Vw Portable (08/21/2024 1:09 AM CIGAR BINDER) Anatomical Region Laterality Modality Body, Chest N/A Computed Radiogr aphy 08/21/2024 8:04 AM CIGAR BINDER Impressions 08/21/2024 8:04 AM CIGAR BINDER CARDIOMEGALY WITH CONSOLIDATING OPACITY IN THE LEFT BASE AND HAZY OPACITY IN THE RIGHT BASE WITH FLUID IN THE FISSURE. A LATERAL CHEST VIEW OR CT OF THE CHEST IS SUGGESTED TO EVALUATE THE LUNG BASES. Electronically signed by: Sulaiman Xie M.D. Narrative 08/21/2024 8:04 AM CIGAR BINDER EXAMINATION: XR CHEST 1 VIEW HISTORY: Elevated [...] signed by: Sulaiman Xie M.D. Susan Salcedo SKI PATROL DIRECTOR IMG XR PROCEDURES Fi nal Result * (ABNORMAL) Potassium, whole blood (08/21/2024 12:48 AM CIGAR BINDER) Potassium, bld 3.1(L) 3.3 - 4.9 mmol/L Comment: Interpretive Data This method is not able to assess for hemolysis, which may falsely increase potassium concentrations. If further testing is needed to evaluate this result, consider in-laboratory plasma potassium. Current Interpretive Data was last revised on 2022. Blood 08/21/2024 12:4 8 AM CIGAR BINDER 08/21/2024 12:59 AM CIGAR BINDER Susan Salcedo NP LAB BLOOD ORDERABLES Final Result Performing Organization Address City/[facility]/ZIP Co de Phone Number [facility] [place] [address] [place] [address] * (ABNORMAL) Hemoglobin and hematocrit (08/21/2024 12:48 AM CIGAR BINDER) Hgb 7.2(L) 11.9 - 15.5 g/dL Hct 23.7(L) 35.6 - 45.5 % [facility] Blood 08/21/2024 12:4 8 AM CIGAR BINDER 08/21/2024 1:00 AM CIGAR BINDER Susan Salcedo NP LAB BLOOD ORDERABLES Final Result [facility] [address] [place] [address] * Transfuse RBC (08/20/2024 11:45 PM CIGAR BINDER) Blood Susan Salcedo NP BLOOD TRANSFUSION OR DERABLES Final Result Performing Organization Address [facility] Co de Phone Number LAINE T[place] [address] [facility] [place] [address] * Prepare RBC: 1 Units (08/20/2024 8:06 PM CIGAR BINDER) Product code [id number] Unit Number [id number] [facility] Product Blood Type BPOS [facility] Dispense Status PRESUMED TRANSFUSED [facility] Blood 08/20/2024 8:06 PM CIGAR BINDER Narrative [facility] - 08/21/2024 10:15 AM CIGAR BINDER Are special requirements needed? (All products are leukoreduced and CMV- safe)- >No Date required:-[id number] LRRBC # of [id number] Reasons:-Hgb <7 g/dL} Susan Salcedo NP BLOOD BANK PRODUCT O RDERABLES Final Result Performing Organization Address [facility] de Phone Number [facility] [place] [address] [place] [address] * (ABNORMAL) aPTT (08/20/2024 8:02 PM CIGAR BINDER) aPTT 53(H) 28 - 38 sec Comment: Interpretive Data Heparin therapeutic range: 66.0 - 100.0 seconds. Range based on correlation with therapeutic heparin activity range of 0.3 - 0.7 Units/mL. Current interpretive data was last revised on 2023. Blood 08/20/2024 8:02 PM CIGAR BINDER 08/20/2024 8:26 PM CIGAR BINDER Dominga KNAPP LAB BLOOD ORDERABLES Final Resu lt Performing Organization Address [facility] Co de Phone Number LAINE TOWNSEND [address] [facility] [place] [address] * (ABNORMAL) Protime-INR (08/20/2024 8:02 PM CIGAR BINDER) Pathologist [facility] PT 22.7(H) 9.7 - 13.0 sec INR 2.07(H) 0.90 - 1.20 [facility] Comment: Interpretive data Oral anticoagulant therapeutic ranges: Venous thromboembolism prophylaxis or treatment: 2.0-3.0 CARDIOLOGY Standard range: 2.0-3.0 High-intensity range: 2.5-3.5 Refer to indication-specific guidelines for appropriate target ranges for prosthetic heart valve replacement. Current interpretive data was last revised on 2019. Blood 08/20/2024 8:02 PM CIGAR BINDER 08/20/2024 8:26 PM CIGAR BINDER Dominga KNAPP LAB BLOOD ORDERABLES Final Resu lt Performing Organization Address [facility] Co de Phone Number [facility] [address] [place] [address] * Type and screen (08/20/2024 8:02 PM CIGAR BINDER) Pathologist [facility] Arianna, indirect Negative ABO Rh B Positive [facility] Blood 08/20/2024 8:02 PM CIGAR BINDER 08/20/2024 8:26 PM CIGAR BINDER Narrative [facility] - 08/20/2024 9:05 PM CIGAR BINDER Has the patient had Daratumumab or Isatuximab in the past 6 months?->Unknown Dominga KNAPP LAB BLOOD BANK TEST ORDERABLES Final Result Performing Organization Address [facility]/ZIP Co de Phone Number [facility] [address] [place] [place] [address] * (ABNORMAL) eGFR (08/20/2024 1:06 PM CIGAR BINDER) [facility] eGFR 4(L) >=60 mL/min/1. 73 m2 [...] last reviewed 2021. Blood 08/20/2024 1:06 PM CIGAR BINDER 08/20/2024 1:06 PM CIGAR BINDER us Alcides KNAPP LAB BLOOD ORDERABLES Final Result [facility] [address] Department [place] [address] * (ABNORMAL) Differential, auto (08/20/2024 1:06 PM CIGAR BINDER) Neutrophil abs 9.9(H) 1.5 - 6.5 K/cumm Imm gran abs 0.2(H) 0.0 - 0.1 K/cumm [facility] Lymphocyte abs 0.8 0.8 - 3.3 K/cumm [facility] Monocyte abs 1.1(H) 0.2 - 0.8 K/cumm [facility] Eosinophil abs 0.3 0.0 - 0.5 K/cumm [facility] Basophil abs 0.1 0.0 - 0.1 K/cumm [facility] Neutrophil pct 80.3 % [facility] Comment: Interpretive Data Percent cell count reference ranges are not reported, since discordance with absolute values may lead to misinterpretation of CBC data. Current Interpretive Data was last revised on 2017. Imm gran pct 1.4 % [facility] Comment: Interpretive Data Percent cell count reference ranges are not reported, since discordance with absolute values may lead to misinterpretation of CBC data. Current Interpretive Data was last revised on 2017. Lymphocyte pct 6.4 % [facility] Comment: Interpretive Data Percent cell count reference ranges are not reported, since discordance with absolute values may lead to misinterpretation of CBC data. Current Interpretive Data was last revised on 2017. Monocyte pct 9.1 % [facility] Comment: Interpretive Data Percent cell count reference ranges are not reported, since discordance with absolute values may lead to misinterpretation of CBC data. Current Interpretive Data was last revised on 2017. Eosinophil pct 2.1 % [facility] Comment: Interpretive Data Percent cell count reference ranges are not reported, since discordance with absolute values may lead to misinterpretation of CBC data. Current Interpretive Data was last revised on 2017. Basophil pct 0.7 % [facility] Comment: Interpretive Data Percent cell count reference ranges are not reported, since discordance with absolute values may lead to misinterpretation of CBC data. Current Interpretive Data was last revised on 2017. Blood 08/20/2024 1:06 PM CIGAR BINDER 08/20/2024 1:06 PM CIGAR BINDER us Alcides KNAPP LAB BLOOD ORDERABLES Final Result [facility] [address] [place] [address] * (ABNORMAL) CBC with auto differential (08/20/2024 1:06 PM CIGAR BINDER) WBC 12.3(H) 3.8 - 9.9 K/cumm Hgb 6.3(C) 11.9 - 15.5 g/dL [facility] Comment:Critical result call ed to and read back by MARCIAL CASTLE on 08 20 2024 at 1344 to [facility]. Hct 21.7(L) 35.6 - 45.5 % [facility] Plt 588(H) 150 - 400 K/cumm [facility] MPV 8.7(L) 9.1 - 12.3 fL [facility] RBC 2.05(L) 3.90 - 5.20 M/cumm [facility] MCV 105.9(H) 81.3 - 96.4 fL [facility] MCH 30.7 27.1 - 33.3 pg [facility] MCHC 29.0(L) 32.3 - 35.7 g/dL [facility] RDW CV 18.8(H) 11.1 - 14.9 % [facility] RDW SD 72.9(H) 35.7 - 48.1 fL [facility] NRBC abs 0.00 0.00 - 0.01 K/cumm [facility] Blood 08/20/2024 1:06 PM CIGAR BINDER 08/20/2024 1:06 PM CIGAR BINDER Alcides KNAPP LAB BLOOD ORDERABLES Final Result Performing Organization Address City/[facility]/ZIP Co de Phone Number LAINE [address] [facility] [place] [address] * Magnesium (08/20/2024 1:06 PM CIGAR BINDER) [facility] Magnesium 1.9 1.4 - 2.5 mg/dL Blood 08/20/2024 1:06 PM CIGAR BINDER 08/20/2024 1:06 PM CIGAR BINDER Alcides KNAPP LAB BLOOD ORDERABLES Final Result Performing Organization Address [facility] de Phone Number [facility] [address] [place] [address] * (ABNORMAL) Comprehensive metabolic panel (08/20/2024 1:06 PM CIGAR BINDER) Sodium 134(L) 135 - 145 mmol/L Potassium, [...] Units/L CERNER CH Blood 08/20/2024 1:06 PM CIGAR BINDER 08/20/2024 1:06 PM CIGAR BINDER Alcides KNAPP LAB BLOOD ORDERABLES Final Result [facility] [id number] [place] [address] * ECG 12 lead (08/20/2024 12:45 PM CIGAR BINDER) 08/20/2024 12:4 5 PM CIGAR BINDER Narrative [facility] - 08/20/2024 7:49 PM CIGAR BINDER Vent Rate: 117 bpm RR Interval: 511 msec IA Interval: 0 msec QRS Duration: 116 msec QT Interval: 361 msec QTC Interval: 430 msec P-R-T [place]: 0 - 8 - 210 degrees IMPRESSION: ATRIAL FIBRILLATION WITH RAPID VENTRICULAR RESPONSE MODERATE INTRAVENTRICULAR CONDUCTION DELAY [110+ ms QRS DURATION] ST DEVIATION AND MODERATE T-WAVE ABNORMALITY, CONSIDER LATERAL ISCHEMIA [-0.1+ mV T-WAVE IN I/aVL/V5/V6] ABNORMAL ECG Electronically Signed By: Dr. Noelle Joiner [facility] Alcides KNAPP ECG ORDERABLES Final Result [facility] * (ABNORMAL) Differential, auto (08/02/2024 5:45 AM CIGAR BINDER) Neutrophil abs 8.3(H) 1.5 - 6.5 K/cumm [...] revised on 2017. Blood 08/02/2024 5:45 AM CIGAR BINDER 08/02/2024 6:22 AM CIGAR BINDER Padmini Mason NP LAB BLOOD ORDERABLES Fi nal Result Performing Organization Address City/[facility]/ZIP Co de Phone Number LA[facility] [address] [place] [address] * (ABNORMAL) CBC with auto differential (08/02/2024 5:45 AM CIGAR BINDER) WBC 12.4(H) 3.8 - 9.9 K/cumm Hgb [...] K/cumm CERNER CH Blood 08/02/2024 5:45 AM CIGAR BINDER 08/02/2024 6:22 AM CIGAR BINDER Padmini Mason NP LAB BLOOD ORDERABLES Fi nal Result [facility] [place] [address] Department [facility] [place], [place] [id number] from Last 3 Months Insurance [facility] MEDICARE [facility] MEDICARE Advance Directives For more information, please contact: [phone] * Full Code (Latest Code Status on File) Date Activated Date Inactivated Comments 08/21/2024 2:16 AM 08/26/2024 10:55 PM * Full Code Date Activated Date Inactivated Comments 07/25/2024 6:59 PM 08/04/2024 7:42 PM * Full Code Date Activated Date Inactivated Comments 07/21/2024 6:30 PM 07/25/2024 6:50 PM Care Teams Tabulating Supervisor Relationship Specialty Start Date End Date Porsche Becker NP [address] [facility] [address] [place] [address] PCP - General Nurse Practitioner 08/19/24 Mookie Dubois MD Referring Physician Nephrology 02/20/22 Jama Hoskins MD [address] [place] [address] Consulting Physician Cardiology 02/20/24
--- OUTSIDE RECORDS SUMMARY | 2024-10-31 00:48 | XMS_ITS ---
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 Name Role Phone Mookie Dubois MD Unavailable [phone] Jama Hoskins MD Unavailable [phone] Porsche Becker NP Primary Care Provider [phone] Dialysis Access Sites Type Status Location Placement Date Removal Da te Peritoneal Dialysis Catheter Left lower abdomen Active Left Abdomen (side) - Lower Procedures Procedure Name Priority Date/Time Associated Diagnosis Comments POCT LIPID PANEL Routine 10/10/2024 4:22 PM CDT Need for lipid screening ELECTROCARDIOGRAM REPORT Routine 10/10/2024 4:08 PM CDT Persistent atrial fibrillation (HCC) DIFFERENTIAL AUTO Routine 08/26/2024 2:3 6 AM VERIFICATION REP CBC WITH AUTO DIFFERENTIAL Routine 08/26/2024 2:36 AM VERIFICATION REP CONTINUOUS CYCLIC PERITONEAL DIALYSIS (CCPD) Routine 08/26/2024 12:31 AM VERIFICATION REP XR CHEST 1 VIEW IP Routine 08/25/2024 3:10 PM VERIFICATION REP CELL DIFFERENTIAL, BODY FLUID Routine 08/25/2024 2:32 PM VERIFICATION REP AMYLASE, BODY FLUID Routine 08/25/2024 2 :32 PM VERIFICATION REP CELL COUNT W/REFLEX DIFFERENTIAL, BODY FLUID Routine 08/25/2024 2:32 PM VERIFICATION REP GLUCOSE, BODY FLUID Routine 08/25/2024 2 :32 PM VERIFICATION REP LACTATE DEHYDROGENASE, BODY FLUID Routine 08/25/2024 2:32 PM VERIFICATION REP PROTEIN, BODY FLUID Routine 08/25/2024 2 :32 PM VERIFICATION REP XR CHEST PA LATERAL 2 VIEWS IP Routine 08/25/2024 8:27 AM VERIFICATION REP DIFFERENTIAL AUTO Routine 08/25/2024 3:0 3 AM VERIFICATION REP CBC WITH AUTO DIFFERENTIAL Routine 08/25/2024 3:03 AM VERIFICATION REP CYTOLOGY Routine 08/25/2024 12:00 AM VERIFICATION REP DIFFERENTIAL AUTO Routine 08/24/2024 4:3 4 AM VERIFICATION REP CBC WITH AUTO DIFFERENTIAL Routine 08/24/2024 4:34 AM VERIFICATION REP EGFR Routine 08/22/2024 9:54 AM VERIFICATION REP DIFFERENTIAL AUTO Routine 08/22/2024 9:5 4 AM VERIFICATION REP COMPREHENSIVE METABOLIC PANEL Routine 08/22/2024 9:54 AM VERIFICATION REP CBC WITH AUTO DIFFERENTIAL Routine 08/22/2024 9:54 AM VERIFICATION REP URINALYSIS, MICROSCOPIC ONLY Routine 08/21/2024 6:01 PM VERIFICATION REP URINE CULTURE Routine 08/21/2024 6:01 PM VERIFICATION REP URINALYSIS AND REFLEX TO MICROSCOPIC AND CULTURE Routine 08/21/2024 6:[address] CHEST ABDOMEN PELVIS WO CONTRAST ED Urgent/IP Urgent 08/21/2024 4:56 PM VERIFICATION REP VITAMIN B12 Routine 08/21/2024 7:44 AM VERIFICATION REP FOLATE Routine 08/21/2024 7:44 AM VERIFICATION REP IRON PROFILE W/ IBC Routine 08/21/2024 7 :44 AM VERIFICATION REP BLOOD CULTURE Routine 08/21/2024 7:44 AM VERIFICATION REP BLOOD CULTURE Routine 08/21/2024 7:44 AM VERIFICATION REP EGFR Routine 08/21/2024 2:52 AM VERIFICATION REP DIFFERENTIAL AUTO Routine 08/21/2024 2:5 2 AM VERIFICATION REP COMPREHENSIVE METABOLIC PANEL Routine 08/21/2024 2:52 AM VERIFICATION REP CBC WITH AUTO DIFFERENTIAL Routine 08/21/2024 2:52 AM VERIFICATION REP XR CHEST 1 VIEW ED 08/21/2024 1:09 AM VERIFICATION REP POTASSIUM, WHOLE BLOOD Timed 12:48 AM VERIFICATION REP HEMOGLOBIN AND HEMATOCRIT Timed 08/21/2024 12:48 AM VERIFICATION REP TRANSFUSE RED BLOOD CELLS Timed 08/20/2024 9:36 PM VERIFICATION REP PREPARE RBC STAT 08/20/2024 8:06 PM VERIFICATION REP APTT STAT 08/20/2024 8:02 PM VERIFICATION REP PROTIME-INR STAT 08/20/2024 8:02 PM VERIFICATION REP TYPE AND SCREEN STAT 08/20/2024 8:02 PM VERIFICATION REP EGFR STAT 08/20/2024 1:06 PM VERIFICATION REP DIFFERENTIAL AUTO STAT 08/20/2024 1:0 6 PM VERIFICATION REP MAGNESIUM Routine 08/20/2024 1:06 PM VERIFICATION REP COMPREHENSIVE METABOLIC PANEL STAT 08/20/2024 1:06 PM VERIFICATION REP CBC WITH AUTO DIFFERENTIAL STAT 08/20/2024 1:06 PM VERIFICATION REP ECG 12-LEAD Routine 08/20/2024 12:45 PM VERIFICATION REP DIFFERENTIAL AUTO Routine 08/02/2024 5:4 5 AM VERIFICATION REP CBC WITH AUTO DIFFERENTIAL Routine 08/02/2024 5:45 AM VERIFICATION REP from Last 3 Months Allergies Active Allergy [...] mouth 2 (two) times a day rx #[id number] 2024 Discontinued(D uplicate order) losartan (COZAAR) 50 [...] often do you attend chur ch or pentecostalism services? Patient declined 07/26/2024 Do you belong to any clubs o r organizations such as rastafari groups, unions, fraternal or athletic groups, or [...] staff should administer the PHQ-9) 0 08/21/2024 [facility] [place] of Occupat ional Health - Occupational Stress [...] on file 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 VERIFICATION REP Gender Identity Not on file Sexual Orientation Not on file Last Filed Vital Signs Vital Sign Reading Time Taken Comments Blood Pressure 80/58 10/10/2024 2:37 PM CDT Pulse 117 10/10/2024 2:37 PM CDT Temperature 36.8 C (98.3 F) 08/26/2024 3:53 PM VERIFICATION REP Respiratory Rate 18 08/26/2024 3:53 PM VERIFICATION REP Oxygen Saturation 97% 10/10/2024 2:37 PM CDT [...] * (ABNORMAL) Differential, auto (08/26/2024 2:36 AM VERIFICATION REP) Neutrophil abs 7.6(H) 1.5 - 6.5 K/cumm [...] 2017. Imm gran pct 1.3 % [facility] Comment: Interpretive Data Percent cell count reference ranges are not reported, since discordance with absolute values may lead to misinterpretation of CBC data. Current Interpretive Data was last revised on 2017. Lymphocyte pct 5.7 % [facility] Comment: Interpretive Data Percent cell count reference ranges are not reported, since discordance with absolute values may lead to misinterpretation of CBC data. Current Interpretive Data was last revised on 2017. Monocyte pct 13.0 % [facility] Comment: Interpretive Data Percent cell count reference ranges are not reported, since discordance with absolute values may lead to misinterpretation of CBC data. Current Interpretive Data was last revised on 2017. Eosinophil pct 2.3 % [facility] Comment: Interpretive Data Percent cell count reference ranges are not reported, since discordance with absolute values may lead to misinterpretation of CBC data. Current Interpretive Data was last revised on 2017. Basophil pct 0.6 % [facility] Comment: Interpretive Data Percent cell count reference ranges are not reported, since discordance with absolute values may lead to misinterpretation of CBC data. Current Interpretive Data was last revised on 2017. Blood 08/26/2024 2:36 AM VERIFICATION REP 08/26/2024 4:06 AM VERIFICATION REP us Bobby Ya MD LAB BLOOD ORDERABLES Final Result [facility] [address] Department [place] [address] * (ABNORMAL) CBC with auto differential (08/26/2024 2:36 AM VERIFICATION REP) WBC 9.9 3.8 - 9.9 K/cumm Hgb 7.2(L) 11.9 - 15.5 g/dL [facility] Hct 24.2(L) 35.6 - 45.5 % [facility] Plt 383 150 - 400 K/cumm [facility] MPV 8.7(L) 9.1 - 12.3 fL [facility] RBC 2.36(L) 3.90 - 5.20 M/cumm [facility] CH MCV 102.5(H) 81.3 - 96.4 fL [facility] CH MCH 30.5 27.1 - 33.3 pg [facility] MCHC 29.8(L) 32.3 - 35.7 g/dL [facility] RDW CV 15.9(H) 11.1 - 14.9 % [facility] CH RDW SD 58.7(H) 35.7 - 48.1 fL [facility] NRBC abs 0.00 0.00 - 0.01 K/cumm [facility] Blood 08/26/2024 2:36 AM VERIFICATION REP 08/26/2024 4:06 AM VERIFICATION REP us Bobby Ya MD LAB BLOOD ORDERABLES Final Result [facility] [address] Department [place] [address] * XR Chest 1 Vw Portable (08/25/2024 3:10 PM VERIFICATION REP) Anatomical Region Laterality Modality Body, Chest N/A Computed Radiogr aphy 08/25/2024 3:29 PM VERIFICATION REP Impressions 08/25/2024 3:29 PM VERIFICATION REP FINDINGS/IMPRESSION: Small bilateral pleural effusions. No consolidation. Borderline cardiomegaly. No acute osseous abnormality. Electronically signed by: Peter Porter II, D.O. Narrative 08/25/2024 3:29 PM VERIFICATION REP EXAMINATION: XR CHEST 1 VIEW DATE: 08/25/2024 [...] Cell Differential, Body Fluid (08/25/2024 2:32 PM VERIFICATION REP) Total cells diffed 82 % Comment: Interpretive [...] % [facility] Fluid 08/25/2024 2:32 PM VERIFICATION REP 08/25/2024 2:32 PM VERIFICATION REP Charles Hendrickson MD LAB BODY FLUIDS AND STO OLS ORDERABLES Final Result Performing Organization Address [facility] de Phone Number [facility] [address] [facility] [email or web address] [address] * Cell count w/rflx diff, body fluid (08/25/2024 2:32 PM VERIFICATION REP) Specimen type, fld Pleural Body site, fld [...] /cumm [facility] Fluid 08/25/2024 2:32 PM VERIFICATION REP 08/25/2024 2:32 PM VERIFICATION REP Charles Hendrickson MD LAB BODY FLUIDS AND STO OLS ORDERABLES Final Result Performing Organization Address [facility] Co de Phone Number [facility] [address] [facility] emotion[employer] [place], [place] [id number] * Protein, body fluid (08/25/2024 2:32 PM VERIFICATION REP) Specimen type, fld Pleural Comment:Testing performed by : [facility], [address] [place] [address] Body site, fld Pleural fluid, left [facility] Comment:Testing performed by : [facility], [address] [place]., [address] Protein, fld 3.5 g/dL [facility] Comment: The [...] was last revised 2019. Testing performed by: [facility], [address] [place] [address] Fluid 08/25/2024 2:32 PM VERIFICATION REP 08/25/2024 5:52 PM VERIFICATION REP Charles Hendrickson MD LAB BODY FLUIDS AND STO OLS ORDERABLES Final Result [facility] [address] Department [place] [address] * Lactate dehydrogenase, body fluid (08/25/2024 2:32 PM VERIFICATION REP) Specimen type, fld Pleural Comment:Testing performed by : [facility], [address] [facility] [place] [address] Body site, fld Pleural fluid, left [facility] Comment:Testing performed by : [facility], [address] [place] [address] LD, fld 151 Units/L [facility] Comment: The [...] was last revised 2019. Testing performed by: [facility], [address] [place]., [address] Fluid 08/25/2024 2:32 PM VERIFICATION REP 08/25/2024 5:52 PM VERIFICATION REP Charles Hendrickson MD LAB BODY FLUIDS AND STO OLS ORDERABLES Final Result [facility] [address] Department [place] [address] * Glucose, body fluid (08/25/2024 2:32 PM VERIFICATION REP) Specimen type, fld Pleural Comment:Testing performed by : [facility], [address] [place] [address] Body site, fld Pleural fluid, left [facility] Comment:Testing performed by : [facility], [address] [place] [address] Glucose, fld 109 mg/dL [facility] Comment: The above specimen type is [...] and Management. Meir Clin J Med 2005;72:854-72. wmbly Test directory, Body Fluid Reference Intervals and/or Interpretative Information. [email or web address] Danika COUCH et al. Pancreatic cyst fluid glucose: rapid, inexpensive, and accurate diagnosis of mucinous pancreatic cysts. Surgery 2018;163:600-5. Mohsen DG et al. Differential diagnosis of pancreatic cysts: A prospective study on the role of intra-cystic glucose concentration. Digestive Liver Dis 2020;52:1026-32. Current Interpretive Data was last revised 2021. Testing performed by: [facility], [address] [facility] [place] [address] Fluid 08/25/2024 2:32 PM VERIFICATION REP 08/25/2024 5:52 PM VERIFICATION REP Narrative [facility] - 08/25/2024 7:28 PM VERIFICATION REP Body Fluid Type->Pleural Charles Hendrickson MD LAB BODY FLUIDS AND STO OLS ORDERABLES Final Result [facility] [place] [address] Department [place] [address] * Amylase, body fluid (08/25/2024 2:32 PM VERIFICATION REP) Specimen type, fld Pleural fluid, left Comment:Testing performed by : [facility], [address] [facility] [place] [address] Amylase, fld <30 Units/L [facility] Comment: [...] 2018. Chapter 43, Body Fluids, p. 925 wmbly Test directory, Body Fluid Reference Intervals and/or Interpretative Information. [email or web address] Current Interpretive Data was last revised 2019. Testing performed by: [facility], [address] [place]., [address] Fluid 08/25/2024 2:32 PM VERIFICATION REP 08/25/2024 5:52 PM VERIFICATION REP Charles Hendrickson MD LAB BODY FLUIDS AND STO OLS ORDERABLES Final Result [facility] [address] Department [place] [address] * XR Chest PA Lateral 2 Views (08/25/2024 8:27 AM VERIFICATION REP) Anatomical Region Laterality Modality Body, Chest N/A Computed Radiogr aphy 08/25/2024 8:52 AM VERIFICATION REP Impressions 08/25/2024 8:52 AM VERIFICATION REP PERSISTENT PLEURAL EFFUSIONS LARGER ON THE LEFT THAN THE RIGHT. MILD FLUID OVERLOAD Electronically signed by: Bryant Alvarez M.D. Narrative 08/25/2024 8:52 AM VERIFICATION REP EXAMINATION: XR CHEST PA LATERAL 2 VIEWS [...] * (ABNORMAL) Differential, auto (08/25/2024 3:03 AM VERIFICATION REP) Neutrophil abs 7.4(H) 1.5 - 6.5 K/cumm [...] on 2017. Imm gran pct 1.0 % [facility] Comment: Interpretive Data Percent cell count reference ranges are not reported, since discordance with absolute values may lead to misinterpretation of CBC data. Current Interpretive Data was last revised on 2017. Lymphocyte pct 6.6 % [facility] Comment: Interpretive Data Percent cell count [...] revised on 2017. Eosinophil pct 2.7 % [facility] Comment: Interpretive Data Percent cell [...] revised on 2017. Blood 08/25/2024 3:03 AM VERIFICATION REP 08/25/2024 4:15 AM VERIFICATION REP Bobby Ya MD LAB BLOOD ORDERABLES Final Result [facility] [address] Department [place] [address] * (ABNORMAL) CBC with auto differential (08/25/2024 3:03 AM VERIFICATION REP) WBC 9.8 3.8 - 9.9 K/cumm Hgb 7.3(L) 11.9 - 15.5 g/dL [facility] Hct 24.3(L) 35.6 - 45.5 % [facility] Plt 424(H) 150 - 400 K/cumm [facility] MPV 8.6(L) 9.1 - 12.3 fL [facility] RBC 2.36(L) 3.90 - 5.20 M/cumm [facility] MCV 103.0(H) 81.3 - 96.4 fL [facility] MCH 30.9 27.1 - 33.3 pg [facility] MCHC 30.0(L) 32.3 - 35.7 g/dL [facility] RDW CV 16.2(H) 11.1 - 14.9 % [facility] RDW SD 61.8(H) 35.7 - 48.1 fL [facility] NRBC abs 0.00 0.00 - 0.01 K/cumm [facility] Blood 08/25/2024 3:03 AM VERIFICATION REP 08/25/2024 4:15 AM VERIFICATION REP Bobby Ya MD LAB BLOOD ORDERABLES Final Result [facility] [address] Department [place] [address] * Cytology (08/25/2024 12:00 AM VERIFICATION REP) Fluid (Pleura (Cytology)) 08/25/2024 08/25/2024 2:53 PM VERIFICATION REP Narrative PATHOLOGY - 08/27/2024 12:43 PM VERIFICATION REP EPIC results best viewed via link to PDF [facility] Department of Pathology [address] [place] [phone] Note to Patients: This report may contain [...] Final Report Patient Name: DORY NOBLE Address: [address] [place] [address] Gender: F : 1960 (Age: 63) Service: Medical Location: [facility] # [id number] Patient Type: [facility] Taken: 08/25/2024 Received: 08/25/2024 Accessioned: 08/25/2024 [...] determined by the Surgical Pathology Department at [facility] as part of an ongoing supplier quality engineering manager program and in compliance with federally [...] characteristics determined by the Surgical Pathology Department [facility]. It has not been cleared or approved by the U. S. Food and Drug Administration. Unless otherwise noted all cytology processing, staining and screening is performed at [facility] ([address] [place] [address]). REPORT IMAGES AND SCANNED DOCUMENTS, IF INCLUDED, ONLY VIEWABLE IN PDF VERSION OF REPORT us Charles Hendrickson MD LAB CYTOLOGY ORDERABLES [place] [address] * (ABNORMAL) Differential, auto (08/24/2024 4:34 AM VERIFICATION REP) Neutrophil abs 7.9(H) 1.5 - 6.5 K/cumm Imm gran abs 0.1 0.0 - 0.1 K/cumm [facility] Lymphocyte abs 0.6(L) 0.8 - 3.3 K/cumm [facility] Monocyte abs 1.3(H) 0.2 - 0.8 K/cumm [facility] Eosinophil abs 0.3 0.0 - 0.5 K/cumm [facility] Basophil abs 0.1 0.0 - 0.1 K/cumm [facility] Neutrophil pct 77.1 % [facility] Comment: Interpretive Data Percent cell count reference ranges are not reported, since discordance with absolute values may lead to misinterpretation of CBC data. Current Interpretive Data was last revised on 2017. Imm gran pct 1.4 % [facility] Comment: Interpretive Data Percent cell count reference ranges are not reported, since discordance with absolute values may lead to misinterpretation of CBC data. Current Interpretive Data was last revised on 2017. Lymphocyte pct 5.4 % [facility] Comment: Interpretive Data Percent cell count reference ranges are not reported, since discordance with absolute values may lead to misinterpretation of CBC data. Current Interpretive Data was last revised on 2017. Monocyte pct 12.6 % [facility] Comment: Interpretive Data Percent cell count reference ranges are not reported, since discordance with absolute values may lead to misinterpretation of CBC data. Current Interpretive Data was last revised on 2017. Eosinophil pct 2.9 % [facility] Comment: Interpretive Data Percent cell count reference ranges are not reported, since discordance with absolute values may lead to misinterpretation of CBC data. Current Interpretive Data was last revised on 2017. Basophil pct 0.6 % [facility] Comment: Interpretive Data Percent cell count reference ranges are not reported, since discordance with absolute values may lead to misinterpretation of CBC data. Current Interpretive Data was last revised on 2017. Blood 08/24/2024 4:34 AM VERIFICATION REP 08/24/2024 4:49 AM VERIFICATION REP us Bobby Ya MD LAB BLOOD ORDERABLES Final Result [facility] [address] Department [place] [address] * (ABNORMAL) CBC with auto differential (08/24/2024 4:34 AM VERIFICATION REP) Pathologist [facility] [place] WBC 10.3(H) 3.8 - 9.9 K/cumm Hgb [...] RDW SD 64.5(H) 35.7 - 48.1 fL [facility] NRBC abs 0.00 0.00 - 0.01 K/cumm [facility] Blood 08/24/2024 4:34 AM VERIFICATION REP 08/24/2024 4:49 AM VERIFICATION REP Bobby Ya MD LAB BLOOD ORDERABLES Final Result [facility] [address] Department [place] [address] * (ABNORMAL) eGFR (08/22/2024 9:54 AM VERIFICATION REP) Pathologist [facility] [place] eGFR 3(L) >=60 mL/min/1. 73 m2 Comment: [...] last reviewed 2021. Blood 08/22/2024 9:54 AM VERIFICATION REP 08/22/2024 10:37 AM VERIFICATION REP us Kala Barbosa NP LAB BLOOD ORDERABLES Final R esult [facility] [address] [place] [address] * (ABNORMAL) Differential, auto (08/22/2024 9:54 AM VERIFICATION REP) Neutrophil abs 9.3(H) 1.5 - 6.5 K/cumm Imm gran abs 0.2(H) 0.0 - 0.1 K/cumm [facility] Lymphocyte abs 0.7(L) 0.8 - 3.3 K/cumm [facility] Monocyte abs 1.2(H) 0.2 - 0.8 K/cumm [facility] Eosinophil abs 0.3 0.0 - 0.5 K/cumm [facility] Basophil abs 0.1 0.0 - 0.1 K/cumm [facility] Neutrophil pct 79.3 % [facility] Comment: Interpretive Data Percent cell count reference ranges are not reported, since discordance with absolute values may lead to misinterpretation of CBC data. Current Interpretive Data was last revised on 2017. Imm gran pct 1.3 % [facility] Comment: Interpretive Data Percent cell count reference ranges are not reported, since discordance with absolute values may lead to misinterpretation of CBC data. Current Interpretive Data was last revised on 2017. Lymphocyte pct 5.7 % [facility] Comment: Interpretive Data Percent cell count reference ranges are not reported, since discordance with absolute values may lead to misinterpretation of CBC data. Current Interpretive Data was last revised on 2017. Monocyte pct 10.4 % [facility] Comment: Interpretive Data Percent cell count reference ranges are not reported, since discordance with absolute values may lead to misinterpretation of CBC data. Current Interpretive Data was last revised on 2017. Eosinophil pct 2.7 % [facility] Comment: Interpretive Data Percent cell count reference ranges are not reported, since discordance with absolute values may lead to misinterpretation of CBC data. Current Interpretive Data was last revised on 2017. Basophil pct 0.6 % [facility] Comment: Interpretive Data Percent cell count reference ranges are not reported, since discordance with absolute values may lead to misinterpretation of CBC data. Current Interpretive Data was last revised on 2017. Blood 08/22/2024 9:54 AM VERIFICATION REP 08/22/2024 10:36 AM VERIFICATION REP us Kala Barbosa NP LAB BLOOD ORDERABLES Final R esult [facility] [address] Department [place] [address] * (ABNORMAL) CBC with auto differential (08/22/2024 9:54 AM VERIFICATION REP) WBC 11.7(H) 3.8 - 9.9 K/cumm Hgb 7.4(L) 11.9 - 15.5 g/dL [facility] Hct 24.6(L) 35.6 - 45.5 % [facility] Plt 462(H) 150 - 400 K/cumm [facility] MPV 8.5(L) 9.1 - 12.3 fL [facility] RBC 2.37(L) 3.90 - 5.20 M/cumm [facility] MCV 103.8(H) 81.3 - 96.4 fL [facility] MCH 31.2 27.1 - 33.3 pg [facility] MCHC 30.1(L) 32.3 - 35.7 g/dL [facility] RDW CV 18.0(H) 11.1 - 14.9 % [facility] RDW SD 67.7(H) 35.7 - 48.1 fL [facility] NRBC abs 0.00 0.00 - 0.01 K/cumm [facility] Blood 08/22/2024 9:54 AM VERIFICATION REP 08/22/2024 10:36 AM VERIFICATION REP us Kala Santanasid LEGAL BILLER LAB BLOOD ORDERABLES Final R esult [facility] [address] [place] [address] * (ABNORMAL) Comprehensive metabolic panel (08/22/2024 9:54 AM VERIFICATION REP) Sodium 137 135 - 145 mmol/L Potassium, [...] Units/L [facility] Blood 08/22/2024 9:54 AM VERIFICATION REP 08/22/2024 10:37 AM VERIFICATION REP us Kala Barbosa NP LAB BLOOD ORDERABLES Final R esult [facility] [address] Department [place] [address] * (ABNORMAL) Urinalysis reflex to microscopic and culture Urine, clean voided (08/21/2024 6:01 PM VERIFICATION REP) Color, ur Mitzi Yellow Clarity, ur Turbid(A) [...] tendency for uric acid stone formation. Source: [facility] Loccit ([id number]) Current Interpretive Data was last revised on [...] CH Urine, clean voided 08/21/2024 6:01 PM VERIFICATION REP 08/21/2024 6:06 PM VERIFICATION REP us Bobby Ya MD LAB MICROBIOLOGY - GENERAL ORDERABLES Final Result [facility] [address] Department [place] [address] * (ABNORMAL) Urinalysis, microscopic only (08/21/2024 6:01 PM VERIFICATION REP) WBC, ur >50(A) 0 - 5 /HPF RBC, ur >50(A) 0 - 2 /HPF [facility] Epithelial cells, squamous, ur 21-50(A) 0 - 5 /HPF [facility] Culture Reflex Comment Reflex to urine culture will be performed. [facility] Urine, clean voided 08/21/2024 6:01 PM VERIFICATION REP 08/21/2024 6:06 PM VERIFICATION REP Bobby Ya MD LAB URINE ORDERABLES Final Result Performing Organization Address [facility]/ZIP Co de Phone Number [facility] [address] [place] [address] * Urine culture Urine, clean voided (08/21/2024 6:01 PM VERIFICATION REP) Report Final Report: Less than 100,000 colonies/mL (clinically insignificant growth based on current clinical standards) Comment:Testing performed by : [facility], [address] [place] [address] Organism (CLINICALLY INSIGNIFICANT GROWTH [facility] Urine, clean voided 08/21/2024 6:01 PM VERIFICATION REP 08/21/2024 8:14 PM VERIFICATION REP Narrative [facility] - 08/23/2024 7:20 AM VERIFICATION REP Urine culture reflexed based upon urinalysis results. Testing performed by [facility] Microbiology Laboratory ([phone]) Bobby Ya MD LAB MICROBIOLOGY - GENERAL ORDERABLES Final Result Performing Organization Address [facility]/ZIP Co de Phone Number [facility] [id number] Department of Loccit (ML4[place]) [place] [address] * CT Chest Abdomen Pelvis WO Contrast (08/21/2024 4:56 PM VERIFICATION REP) Anatomical Region Laterality Modality Body N/A Computed Tomogra phy 08/21/2024 5:31 PM VERIFICATION REP Impressions 08/22/2024 2:24 PM VERIFICATION REP Moderate loculated left pleural effusion with left [...] Priscila Ochoa M.D. Narrative 08/22/2024 2:24 PM VERIFICATION REP EXAM: CT CHEST, ABDOMEN AND PELVIS WITHOUT [...] noted without pericardial effusion..Atherosclerotic nonaneurysmal aorta with [id number] calcified plaque and mild aortic valvular calcification [...] noted without pericardial effusion..Atherosclerotic nonaneurysmal aorta with [id number] calcified plaque and mild aortic valvular calcification [...] Iron profile w/ IBC (08/21/2024 7:44 AM VERIFICATION REP) Pathologist [facility] [place] Iron 164(H) 35 - 145 mcg/dl TIBC 254 250 - 400 mcg/dL [facility] Transferrin saturation 65(H) 20 - 50 % [facility] Blood 08/21/2024 7:44 AM VERIFICATION REP 08/21/2024 9:19 AM VERIFICATION REP Kala Barbosa NP LAB BLOOD ORDERABLES Final R esult [facility] [id number] [place] [address] * Blood culture Blood (08/21/2024 7:44 AM VERIFICATION REP) Pathologist [facility] [place] Report Final Report: No growth Comment:Testing performed by : [facility], [address] [place] [address] Blood 08/21/2024 7:44 AM VERIFICATION REP 08/21/2024 12:57 PM VERIFICATION REP Narrative [facility] - 08/25/2024 4:00 PM VERIFICATION REP From a different site than #1. Collection->Peripheral [...] performance characteristics have been verified by the [facility]biology [facility]. For questions about this culture, contact the Microbiology Laboratory at [phone]. Interpretive data was last revised on 24. Kala Barbosa NP LAB MICROBIOLOGY - GENERAL O RDERABLES Final Result [facility] [place] [phone] [place] [address] * Blood culture Blood (08/21/2024 7:44 AM VERIFICATION REP) Report Final Report: No growth Comment:Testing performed by : [facility], [address] [facility] [place]., [address] Blood 08/21/2024 7:44 AM VERIFICATION REP 08/21/2024 12:57 PM VERIFICATION REP Narrative [facility] - 08/25/2024 4:00 PM VERIFICATION REP Collection->Peripheral 1. Blood cultures are incubated for [...] performance characteristics have been verified by the [facility]biology [facility]. For questions about this culture, contact the Microbiology Laboratory at [phone]. Interpretive data was last revised on 24. Kala Barbosa NP LAB MICROBIOLOGY - GENERAL O RDERABLES Final Result Performing Organization Address City/[facility] Co de Phone Number [facility] [address] [place] [address] * Folate (08/21/2024 7:44 AM VERIFICATION REP) Folic acid >20.0 >=5.0 ng/mL Comment:Hemolysis present. R esults may be affected. Blood 08/21/2024 7:44 AM VERIFICATION REP 08/21/2024 9:19 AM VERIFICATION REP Kala Barbosa NP LAB BLOOD ORDERABLES Final R esult Performing Organization Address City/[facility] Co de Phone Number [facility] [place] [phone] Department of Loc[facility] ([facility]) [place], [place] [id number] * (ABNORMAL) Vitamin B12 (08/21/2024 7:44 AM VERIFICATION REP) Vitamin B12 1,704(H) 230 - 1,250 pg/mL Blood 08/21/2024 7:44 AM VERIFICATION REP 08/21/2024 9:19 AM VERIFICATION REP Kala Barbosa NP LAB BLOOD ORDERABLES Final R esult Performing Organization Address [facility] Co de Phone Number [facility] [place] [phone] Department of Loc[facility] (ML[employer]) [place], [place] [id number] * (ABNORMAL) eGFR (08/21/2024 2:52 AM VERIFICATION REP) eGFR 4(L) >=60 mL/min/1. 73 m2 Comment: [...] last reviewed 2021. Blood 08/21/2024 2:52 AM VERIFICATION REP 08/21/2024 3:17 AM VERIFICATION REP Kala Barbosa NP LAB BLOOD ORDERABLES Final R izaiahult Performing Organization Address City/[facility]/ZIP Co de Phone Number [facility] [place] [phone] Department [employer] (ML[employer]) [place] [address] * (ABNORMAL) Differential, auto (08/21/2024 2:52 AM VERIFICATION REP) Neutrophil abs 9.6(H) 1.5 - 6.5 K/cumm Imm gran abs 0.2(H) 0.0 - 0.1 K/cumm [facility] Lymphocyte abs 1.0 0.8 - 3.3 K/cumm [facility] Monocyte abs 1.4(H) 0.2 - 0.8 K/cumm [facility] Eosinophil abs 0.3 0.0 - 0.5 K/cumm [facility] Basophil abs 0.1 0.0 - 0.1 K/cumm [facility] Neutrophil pct 76.2 % [facility] Comment: Interpretive Data Percent cell count reference ranges are not reported, since discordance with absolute values may lead to misinterpretation of CBC data. Current Interpretive Data was last revised on 2017. Imm gran pct 1.4 % [facility] Comment: Interpretive Data Percent cell count reference ranges are not reported, since discordance with absolute values may lead to misinterpretation of CBC data. Current Interpretive Data was last revised on 2017. Lymphocyte pct 8.2 % [facility] Comment: Interpretive Data Percent cell count reference ranges are not reported, since discordance with absolute values may lead to misinterpretation of CBC data. Current Interpretive Data was last revised on 2017. Monocyte pct 11.4 % [facility] Comment: Interpretive Data Percent cell count reference ranges are not reported, since discordance with absolute values may lead to misinterpretation of CBC data. Current Interpretive Data was last revised on 2017. Eosinophil pct 2.1 % [facility] Comment: Interpretive Data Percent cell count reference ranges are not reported, since discordance with absolute values may lead to misinterpretation of CBC data. Current Interpretive Data was last revised on 2017. Basophil pct 0.7 % [facility] Comment: Interpretive Data Percent cell count reference ranges are not reported, since discordance with absolute values may lead to misinterpretation of CBC data. Current Interpretive Data was last revised on 2017. Blood 08/21/2024 2:52 AM VERIFICATION REP 08/21/2024 3:18 AM VERIFICATION REP us Kala Barbosa NP LAB BLOOD ORDERABLES Final R esult [facility] [phone] [place] [address] * (ABNORMAL) CBC with auto differential (08/21/2024 2:52 AM VERIFICATION REP) WBC 12.6(H) 3.8 - 9.9 K/cumm Hgb [...] K/cumm [facility] Blood 08/21/2024 2:52 AM VERIFICATION REP 08/21/2024 3:18 AM VERIFICATION REP Kala Barbosa NP LAB BLOOD ORDERABLES Final R esult [facility] [address] [place] [address] * (ABNORMAL) Comprehensive metabolic panel (08/21/2024 2:52 AM VERIFICATION REP) Sodium 136 135 - 145 mmol/L Potassium, [...] Units/L [facility] Blood 08/21/2024 2:52 AM VERIFICATION REP 08/21/2024 3:17 AM VERIFICATION REP us Kala Barbosa NP LAB BLOOD ORDERABLES Final R esult [facility] [place] [address] [place] [address] * XR Chest 1 Vw Portable (08/21/2024 1:09 AM VERIFICATION REP) Anatomical Region Laterality Modality Body, Chest N/A Computed Radiogr aphy 08/21/2024 8:04 AM VERIFICATION REP Impressions 08/21/2024 8:04 AM VERIFICATION REP CARDIOMEGALY WITH CONSOLIDATING OPACITY IN THE LEFT BASE AND HAZY OPACITY IN THE RIGHT BASE WITH FLUID IN THE FISSURE. A LATERAL CHEST VIEW OR CT OF THE CHEST IS SUGGESTED TO EVALUATE THE LUNG BASES. Electronically signed by: Sulaiman Xie M.D. Narrative 08/21/2024 8:04 AM VERIFICATION REP EXAMINATION: XR CHEST 1 VIEW HISTORY: Elevated [...] (ABNORMAL) Potassium, whole blood (08/21/2024 12:48 AM VERIFICATION REP) Potassium, bld 3.1(L) 3.3 - 4.9 mmol/L Comment: Interpretive Data This method is not able to assess for hemolysis, which may falsely increase potassium concentrations. If further testing is needed to evaluate this result, consider in-laboratory plasma potassium. Current Interpretive Data was last revised on 2022. Blood 08/21/2024 12:4 8 AM VERIFICATION REP 08/21/2024 12:59 AM VERIFICATION REP Susan Salcedo NP LAB BLOOD ORDERABLES Final Result [facility] [address] Department of [employer] ([place]) [place] [address] * (ABNORMAL) Hemoglobin and hematocrit (08/21/2024 12:48 AM VERIFICATION REP) [facility] Hgb 7.2(L) 11.9 - 15.5 g/dL Hct 23.7(L) 35.6 - 45.5 % [facility] Blood 08/21/2024 12:4 8 AM VERIFICATION REP 08/21/2024 1:00 AM VERIFICATION REP Susan Salcedo NP LAB BLOOD ORDERABLES Final Result Performing Organization Address [facility] de Phone Number [facility] [phone] [place] [address] * Transfuse RBC (08/20/2024 11:45 PM VERIFICATION REP) Blood Susan Salcedo NP BLOOD TRANSFUSION OR DERABLES Final Result Performing Organization Address [facility] de Phone Number [facility] [phone] [facility] Loccit (ML4D) [place] [address] * Prepare RBC: 1 Units (08/20/2024 8:06 PM VERIFICATION REP) [facility] Product code [id number] Unit Number [id number] [facility] Product Blood Type BPOS [facility] Dispense Status PRESUMED TRANSFUSED [facility] Blood 08/20/2024 8:06 PM VERIFICATION REP Narrative [facility] - 08/21/2024 10:15 AM VERIFICATION REP Are special requirements needed? (All products are leukoreduced and CMV- safe)- >No Date required:-[id number] LRRBC # of [id number] Reasons:-Hgb <7 g/dL} Susan Salcedo NP BLOOD BANK PRODUCT O RDERABLES Final Result Performing Organization Address [facility] de Phone Number [facility] [phone] [place] [address] * (ABNORMAL) aPTT (08/20/2024 8:02 PM VERIFICATION REP) aPTT 53(H) 28 - 38 sec Comment: Interpretive Data Heparin therapeutic range: 66.0 - 100.0 seconds. Range based on correlation with therapeutic heparin activity range of 0.3 - 0.7 Units/mL. Current interpretive data was last revised on 2023. Blood 08/20/2024 8:02 PM VERIFICATION REP 08/20/2024 8:26 PM VERIFICATION REP Dominga Nena AL LAB BLOOD ORDERABLES Final Resu lt Performing Organization Address [facility] Co de Phone Number [facility] [place] [phone] [place] [address] * (ABNORMAL) Protime-INR (08/20/2024 8:02 PM VERIFICATION REP) PT 22.7(H) 9.7 - 13.0 sec INR 2.07(H) 0.90 - 1.20 [facility] Comment: Interpretive data Oral anticoagulant therapeutic ranges: Venous thromboembolism prophylaxis or treatment: 2.0-3.0 CARDIOLOGY Standard range: 2.0-3.0 High-intensity range: 2.5-3.5 Refer to indication-specific guidelines for appropriate target ranges for prosthetic heart valve replacement. Current interpretive data was last revised on 2019. Blood 08/20/2024 8:02 PM VERIFICATION REP 08/20/2024 8:26 PM VERIFICATION REP Dominga Barrett AL LAB BLOOD ORDERABLES Final Resu lt Performing Organization Address City/[facility]/ZIP Co de Phone Number [facility] [place] [phone] [place] [address] * Type and screen (08/20/2024 8:02 PM VERIFICATION REP) Arianna, indirect Negative ABO Rh B Positive [facility] Blood 08/20/2024 8:02 PM VERIFICATION REP 08/20/2024 8:26 PM VERIFICATION REP Narrative [facility] - 08/20/2024 9:05 PM VERIFICATION REP Has the patient had Daratumumab or Isatuximab in the past 6 months?->Unknown Dominga KNAPP LAB BLOOD BANK TEST ORDERABLES Final Result Performing Organization Address City/[facility]/ZIP Co de Phone Number [facility] [place] [phone] Department of [facility] (ML4[facility]) [place] [address] * (ABNORMAL) eGFR (08/20/2024 1:06 PM VERIFICATION REP) eGFR 4(L) >=60 mL/min/1. 73 m2 Comment: [...] last reviewed 2021. Blood 08/20/2024 1:06 PM VERIFICATION REP 08/20/2024 1:06 PM VERIFICATION REP Alcides KNAPP LAB BLOOD ORDERABLES Final Result Performing Organization Address City/[facility]/ZIP Co de Phone Number [facility] [place] [phone] Department of [employer] ([employer]) [place] [address] * (ABNORMAL) Differential, auto (08/20/2024 1:06 PM VERIFICATION REP) Neutrophil abs 9.9(H) 1.5 - 6.5 K/cumm Imm gran abs 0.2(H) 0.0 - 0.1 K/cumm [facility] Lymphocyte abs 0.8 0.8 - 3.3 K/cumm [facility] Monocyte abs 1.1(H) 0.2 - 0.8 K/cumm [facility] Eosinophil abs 0.3 0.0 - 0.5 K/cumm [facility] Basophil abs 0.1 0.0 - 0.1 K/cumm [facility] Neutrophil pct 80.3 % [facility] Comment: Interpretive Data Percent cell count reference ranges are not reported, since discordance with absolute values may lead to misinterpretation of CBC data. Current Interpretive Data was last revised on 2017. Imm gran pct 1.4 % [facility] Comment: Interpretive Data Percent cell count reference ranges are not reported, since discordance with absolute values may lead to misinterpretation of CBC data. Current Interpretive Data was last revised on 2017. Lymphocyte pct 6.4 % [facility] Comment: Interpretive Data Percent cell count reference ranges are not reported, since discordance with absolute values may lead to misinterpretation of CBC data. Current Interpretive Data was last revised on 2017. Monocyte pct 9.1 % [facility] Comment: Interpretive Data Percent cell count reference ranges are not reported, since discordance with absolute values may lead to misinterpretation of CBC data. Current Interpretive Data was last revised on 2017. Eosinophil pct 2.1 % [facility] Comment: Interpretive Data Percent cell count reference ranges are not reported, since discordance with absolute values may lead to misinterpretation of CBC data. Current Interpretive Data was last revised on 2017. Basophil pct 0.7 % [facility] Comment: Interpretive Data Percent cell count reference ranges are not reported, since discordance with absolute values may lead to misinterpretation of CBC data. Current Interpretive Data was last revised on 2017. Blood 08/20/2024 1:06 PM VERIFICATION REP 08/20/2024 1:06 PM VERIFICATION REP us Alcides KNAPP LAB BLOOD ORDERABLES Final Result [facility] [address] [place] [address] * (ABNORMAL) CBC with auto differential (08/20/2024 1:06 PM VERIFICATION REP) WBC 12.3(H) 3.8 - 9.9 K/cumm Hgb 6.3(C) 11.9 - 15.5 g/dL [facility] Comment:Critical result call ed to and read back by MARCIAL CASTLE on 08 20 2024 at 1344 to [facility]. Hct 21.7(L) 35.6 - 45.5 % [facility] [...] K/cumm [facility] Blood 08/20/2024 1:06 PM VERIFICATION REP 08/20/2024 1:06 PM VERIFICATION REP Alcides KNAPP LAB BLOOD ORDERABLES Final Result [facility] [address] [place] [address] * Magnesium (08/20/2024 1:06 PM VERIFICATION REP) Magnesium 1.9 1.4 - 2.5 mg/dL Blood 08/20/2024 1:06 PM VERIFICATION REP 08/20/2024 1:06 PM VERIFICATION REP Alcides KNAPP LAB [place]LOOD [place] [address] [address] [place] [address] * (ABNORMAL) Comprehensive metabolic panel (08/20/2024 1:06 PM VERIFICATION REP) Sodium 134(L) 135 - 145 mmol/L Potassium, [...] Units/L [facility] Blood 08/20/2024 1:06 PM VERIFICATION REP 08/20/2024 1:06 PM VERIFICATION REP us Alcides KNAPP LAB BLOOD ORDERABLES Final Result [facility] [address] [place] [address] * ECG 12 lead (08/20/2024 12:45 PM VERIFICATION REP) 08/20/2024 12:4 5 PM VERIFICATION REP Narrative [facility] - 08/20/2024 7:49 PM VERIFICATION REP Vent Rate: 117 bpm RR Interval: 511 msec MA Interval: 0 msec QRS Duration: 116 msec QT Interval: 361 msec QTC Interval: 430 msec P-R-T [employer]: 0 - 8 - 210 degrees IMPRESSION: ATRIAL FIBRILLATION WITH RAPID VENTRICULAR RESPONSE MODERATE INTRAVENTRICULAR CONDUCTION DELAY [110+ ms QRS DURATION] ST DEVIATION AND MODERATE T-WAVE ABNORMALITY, CONSIDER LATERAL ISCHEMIA [-0.1+ mV T-WAVE IN I/aVL/V5/V6] ABNORMAL ECG Electronically Signed By: Dr. Noelle Joiner [facility] us Alcides KNAPP ECG ORDERABLES Final Result [facility] * (ABNORMAL) Differential, auto (08/02/2024 5:45 AM VERIFICATION REP) Neutrophil abs 8.3(H) 1.5 - 6.5 K/cumm Imm gran abs 0.7(H) 0.0 - 0.1 K/cumm [facility] Lymphocyte abs 1.1 0.8 - 3.3 K/cumm [facility] Monocyte abs 1.9(H) 0.2 - 0.8 K/cumm [facility] Eosinophil abs 0.4 0.0 - 0.5 K/cumm [facility] Basophil abs 0.1 0.0 - 0.1 K/cumm [facility] Neutrophil pct 67.1 % [facility] Comment: Interpretive Data Percent cell count reference ranges are not reported, since discordance with absolute values may lead to misinterpretation of CBC data. Current Interpretive Data was last revised on 2017. Imm gran pct 5.3 % [facility] Comment: Interpretive Data Percent cell count reference ranges are not reported, since discordance with absolute values may lead to misinterpretation of CBC data. Current Interpretive Data was last revised on 2017. Lymphocyte pct 8.5 % [facility] Comment: Interpretive Data Percent cell count reference ranges are not reported, since discordance with absolute values may lead to misinterpretation of CBC data. Current Interpretive Data was last revised on 2017. Monocyte pct 15.6 % [facility] Comment: Interpretive Data Percent cell [...] revised on 2017. Basophil pct 0.7 % [facility] Comment: Interpretive Data Percent cell count reference ranges are not reported, since discordance with absolute values may lead to misinterpretation of CBC data. Current Interpretive Data was last revised on 2017. Blood 08/02/2024 5:45 AM VERIFICATION REP 08/02/2024 6:22 AM VERIFICATION REP Padmini Mason NP LAB BLOOD ORDERABLES nal Result [facility] [id number] [place] [address] * (ABNORMAL) CBC with auto differential (08/02/2024 5:45 AM VERIFICATION REP) WBC 12.4(H) 3.8 - 9.9 K/cumm Hgb 7.5(L) 11.9 - 15.5 g/dL [facility] Hct 28.7(L) 35.6 - 45.5 % [facility] Plt 402(H) 150 - 400 K/cumm [facility] MPV 11.2 9.1 - 12.3 fL [facility] RBC 2.53(L) 3.90 - 5.20 M/cumm [facility] MCV 113.4(H) 81.3 - 96.4 fL [facility] MCH 29.6 27.1 - 33.3 pg [facility] MCHC 26.1(L) 32.3 - 35.7 g/dL [facility] RDW CV 20.7(H) 11.1 - 14.9 % [facility] RDW SD 85.8(H) 35.7 - 48.1 fL [facility] NRBC abs 0.08(H) 0.00 - 0.01 K/cumm [facility] [place] Blood 08/02/2024 5:45 AM VERIFICATION REP 08/02/2024 6:22 AM VERIFICATION REP us Padmini Mason NP LAB BLOOD ORDERABLES Fi nal Result [facility] [place] [id number] [place] [address] from Last 3 Months
--- NOTE | 2024-10-31 06:13 | WPDHPUPDATE1 ---
History and Physical Update Update Date/Time: 10/31/24 06:13 History and Physical has been reviewed, including an updated exam of the patient. There are NO changes in the patient's condition. Risks, benefits, and alternatives have been discussed and questions answered. Patient agrees to proceed with procedure.
--- NOTE | 2024-10-31 07:58 | P.PNAN_ITS ---
Anes - Eval Pre Procedure Procedure: Operation Date: 10/31/24 12:30 Proposed Procedures p Right Extracorporeal Shock Wave Lithotripsy, - Srinivasa Adame MD s Cystoscopy with Possible Right Stent Removal / Replacement - Srinivasa Adame MD Date/Time: 10/31/24 07:58 Pre Op Diagnosis: Right Ureteral Stone Patient Data Age: 63 Gender: F Height: 1.52 m Weight: 90.9 kg Allergies Allergy/AdvReac Type Severity Reaction Status Date / Time PHILIP Inhibitors Allergy Severe Swelling Verified 10/28/24 09:50 of Lip/Tongue/Throat azithromycin Allergy Severe Dyspnea / Verified 10/28/24 09:50 SOB Home Medications ?Medication ?Instructions ?Recorded ?Confirmed ?Type vitamin B complex-vitamin C-folic 1 tablet PO DAILY #90 tabs 11/20/22 10/08/24 Rx acid 0.8 mg tablet (Nephro-Silvia) calcitriol 0.25 mcg capsule 0.5 mcg PO EVERY OTHER DAY 07/14/24 10/08/24 History furosemide 80 mg tablet 80 mg PO BID PRN edema 07/14/24 10/08/24 History gentamicin 0.1 % topical cream 1 applic topical DAILY 07/14/24 10/08/24 History levothyroxine 25 mcg tablet 25 mcg PO DAILY 07/14/24 10/08/24 History potassium chloride 10 mEq 10 meq PO DAILY 07/14/24 10/08/24 History tablet,extended release amiodarone 200 mg tablet 200 mg PO QAM 09/30/24 10/08/24 History apixaban 5 mg tablet (Eliquis) 5 mg PO BID 09/30/24 10/08/24 History metoprolol succinate 25 mg 25 mg PO HS 09/30/24 10/08/24 History tablet,extended release 24 hr midodrine 5 mg tablet 7.5 mg PO TID 09/30/24 10/08/24 History sevelamer carbonate 800 mg tablet 2,400 mg PO TID 09/30/24 10/08/24 History pantoprazole 40 mg tablet,delayed 40 mg PO DAILY 8 weeks #56 tabs 10/08/24 10/28/24 Rx release Patient hx anesthesia problems: none Family hx anesthesia problems: none Results Review: All pre-operative results and documents have been reviewed as part of the pre- operative evaluation. [facility] Past Medical History Medical History Supratherapeutic INR Hypothyroidism Cardiomyopathy End stage renal disease Multiple renal calculi Orthostatic hypotension Radial head fracture Heart disease Thyroid disease Ureterolithiasis Afib Chronic kidney disease Acute renal failure Hypertension Surgical History Surgical History History of tonsillectomy History of Family History Family History Father CAD (coronary artery disease) Mother Hypertension Social History Social History Social History: The patient lives at home with her daughter and mother. 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 She used to smoke half a pack of cigarettes per day but quit smoking in 2018. She has 20 pack per year smoking history. She used to drink 1-2 beers a day every day but quit doing so several years ago. She now drinks 1 beer on rare occasion. She denies any illicit substance use. Primary care provider: Brandie Rhoades [employer] Code status: Full code Surrogate decision maker: Daughter Smoking packs per day: 1 Smoking cigarettes per day: 20.0 Years smoked: 40 Smoking pack-years: 40.00 Smoking status: Former smoker Tobacco type: cigarettes Smoking end date: 07/16/03 Alcohol intake: current Drinks per week: 1 Substance use: unknown Do You Feel Safe in your Home?: Yes Lack of Transportation: No Lack of Food: Never True Current Housing: I Have Housing Concerned About Future Housing: No Difficulty Paying Gas/Electric Bills: No Difficulty Paying for Meds: No Currently Unemployed: No Education: Decline to Answer Difficulty w/ Childcare or Family Care: No Living arrangements: with family Additional living arrangements comments: MOTHER AND DAUGHTER Spiritual care concerns: No Agree to blood products: Yes Exam Day of Procedure 10/31/24 07:58 Patient weight: obese Heart: other Risks: Afib RVR
[2024-10-31 11:56] LABS: Anion Gap 13 mmol/L (4-12); Blood Urea Nitrogen 39 mg/dL (7-17); Calcium 9.9 mg/dL (8.4-10.2); Carbon Dioxide 30 mmol/L (22-30); Chloride 96 mmol/L (98-107); Estimated CRCL calculation 6 ml/min; Estimated Glomerular Filt Rate 4; Glucose 100 mg/dL (65-110); Potassium 3.3 mmol/L (3.4-5.0); Sodium 139 mmol/L (137-145)
[2024-10-31 12:00] LABS: INR 1.1; Prothrombin Time 14.1 Seconds (11.1-14.7)
[2024-10-31 12:02] LABS: Partial Thromboplastin Time 45.5 Seconds (22.3-36.8)
--- NOTE | 2024-10-31 12:10 | SUR.PREOP ---
dr. leong aware that pt oliguric and unable to provide an adequate specimen for lab to perform a ua.
--- NOTE | 2024-10-31 12:34 | P.PNAN_ITS ---
Anes - Eval Final PreProcedure Day of Procedure 10/31/24 12:34 Patient weight: obese Heart: other (afib rvr) Lungs: clear to auscultation Airway: Mallampati scale class II Neurological: alert and oriented Last oral intake: >/= 8 hours ASA classification: IV Emergent: no Anesthetic plan: proceed Anesthesia type and monitoring: general LMA and standard monitoring Results Review: All pre-operative results and documents have been reviewed as part of the pre- operative evaluation. Informed Consent: The patient's anesthetic plan and its attendant risks and benefits were discussed with the patient/family/POA. Questions were solicited and answers provided to the satisfaction of the patient/family/POA.
[2024-10-31] MEDS: ceFAZolin 2 GM/D5W 50 ML 2 GM/50 ML BAG IVPB (12:41)
--- NOTE | 2024-10-31 12:55 | W.PM.PROC2 ---
Procedure Note - Detailed Date of Procedure 10/31/24 Pre-op Diagnosis Right Renal Stone Post-op Diagnosis Same Procedure Performed Right ESWL Surgeon Srinivasa Adame MD Anesthesia General Description of Procedure The patient was brought to the operative suite where she was placed in the supine position on the [place] lithotripsy table. preoperative imaging both with a KUB and subsequent CT suggested her larger 8 mm stone which had been in her proximal ureter was now overlying the proximal coil of the indwelling ureteral stent. The focal point of the lithotripter was placed at that 8mm calculus. A total of 2500 shocks were delivered at a power setting of 4. There appeared to be good fragmentation of the stone. The patient tolerated the procedure well and was taken to the recovery room in good condition. Packing No Pathology None sent Complications No immediate complications Disposition PACU
[2024-10-31] MEDS: SODIUM CHLORIDE 0.9% IV 500 ML 30 ML IV CONT (13:24)
[2024-10-31] MEDS: oxyCODONE HCL (*CRX) 5 MG TAB IR PO (14:55)
== END 2024-10-31 15:35 | disposition home or self-care (01) ==
PROVIDERS: Registered Nurse; PCP Nurse Practitioner Family; Visit Provider Urology
PROC: (CPT 50590; principal; 2024-10-31 12:30)
DX: N20.0 Calculus of kidney (principal); I48.91 Unspecified atrial fibrillation; I13.10 Hypertensive heart and chronic kidney disease without heart failure, with stage 1 through stage 4 chronic kidney disease, or unspecified chronic kidney disease; N18.9 Chronic kidney disease, unspecified; I42.9 Cardiomyopathy, unspecified; Z87.891 Personal history of nicotine dependence; E66.9 Obesity, unspecified; Z68.39 Body mass index [BMI] 39.0-39.9, adult
CPT/HCPCS: 50590; 36415; 74018; 74176; 80048; 85610; 85730; A9270; J0690; J1100; J2003; J2405; J3010; J7040

== ENCOUNTER 2024-11-18 14:55 | Outpatient (CLI) | payer MEDICARE, MEDICAID, SELFPAY ==
--- NOTE | ~2024-11-18 | XR_ITS ---
XR abdomen/kub 1V 11/18/2024 15:24 Indication: Right kidney stones Procedure: KUB Comparison: CT dated 10/31/2024 Findings: There is a right internal ureteral stent in expected position. There is a peritoneal dialys is catheter extending from the left mid abdomen into the pelvis. There are right renal stones. There are left renal stones. There is an oval radiodensity in the left upper abdomen, likely gastric conten t. No acute osseous abnormality. Nonobstructive bowel gas pattern. Moderate colonic fecal loading. Impression: 1: Bilateral nephrolithiasis. Right internal ureteral stent in expected position. Reviewed, dictated and finalized at location A. Impression: 1: Bilateral nephrolithiasis. Right internal ureteral stent in expected positio n.
--- OUTSIDE RECORDS SUMMARY | 2024-11-18 15:03 | XMS_ITS ---
Author Organization [facility] [address] Address [address] [place] [address] Care Team Providers Care Surveyor Chain Helper Name Role Phone Mookie Dubois MD Unavailable [phone] Jama Hoskins MD Unavailable [phone] Porsche Becker NP Primary Care Provider [phone] Dialysis Access Sites Type Status Location Placement Date Removal Da te Peritoneal Dialysis Catheter Left lower abdomen Active Left Abdomen (side) - Lower Procedures Procedure Name Priority Date/Time Associated Diagnosis Comments POCT LIPID PANEL Routine 10/10/2024 4:22 PM CDT Need for lipid screening ELECTROCARDIOGRAM REPORT Routine 10/10/2024 4:08 PM CDT Persistent atrial fibrillation (HCC) DIFFERENTIAL AUTO Routine 08/26/2024 2:3 6 AM TALENT SOURCING SPECIALIST CBC WITH AUTO DIFFERENTIAL Routine 08/26/2024 2:36 AM TALENT SOURCING SPECIALIST CONTINUOUS CYCLIC PERITONEAL DIALYSIS (CCPD) Routine 08/26/2024 12:31 AM TALENT SOURCING SPECIALIST XR CHEST 1 VIEW IP Routine 08/25/2024 3:10 PM TALENT SOURCING SPECIALIST CELL DIFFERENTIAL, BODY FLUID Routine 08/25/2024 2:32 PM TALENT SOURCING SPECIALIST AMYLASE, BODY FLUID Routine 08/25/2024 2 :32 PM TALENT SOURCING SPECIALIST CELL COUNT W/REFLEX DIFFERENTIAL, BODY FLUID Routine 08/25/2024 2:32 PM TALENT SOURCING SPECIALIST GLUCOSE, BODY FLUID Routine 08/25/2024 2 :32 PM TALENT SOURCING SPECIALIST LACTATE DEHYDROGENASE, BODY FLUID Routine 08/25/2024 2:32 PM TALENT SOURCING SPECIALIST PROTEIN, BODY FLUID Routine 08/25/2024 2 :32 PM TALENT SOURCING SPECIALIST XR CHEST PA LATERAL 2 VIEWS IP Routine 08/25/2024 8:27 AM TALENT SOURCING SPECIALIST DIFFERENTIAL AUTO Routine 08/25/2024 3:0 3 AM TALENT SOURCING SPECIALIST CBC WITH AUTO DIFFERENTIAL Routine 08/25/2024 3:03 AM TALENT SOURCING SPECIALIST CYTOLOGY Routine 08/25/2024 12:00 AM TALENT SOURCING SPECIALIST DIFFERENTIAL AUTO Routine 08/24/2024 4:3 4 AM TALENT SOURCING SPECIALIST CBC WITH AUTO DIFFERENTIAL Routine 08/24/2024 4:34 AM TALENT SOURCING SPECIALIST EGFR Routine 08/22/2024 9:54 AM TALENT SOURCING SPECIALIST DIFFERENTIAL AUTO Routine 08/22/2024 9:5 4 AM TALENT SOURCING SPECIALIST COMPREHENSIVE METABOLIC PANEL Routine 08/22/2024 9:54 AM TALENT SOURCING SPECIALIST CBC WITH AUTO DIFFERENTIAL Routine 08/22/2024 9:54 AM TALENT SOURCING SPECIALIST URINALYSIS, MICROSCOPIC ONLY Routine 08/21/2024 6:01 PM TALENT SOURCING SPECIALIST URINE CULTURE Routine 08/21/2024 6:01 PM TALENT SOURCING SPECIALIST URINALYSIS AND REFLEX TO MICROSCOPIC AND CULTURE Routine 08/21/2024 6:01 [address] CHEST ABDOMEN PELVIS WO CONTRAST ED Urgent/IP Urgent 08/21/2024 4:56 PM TALENT SOURCING SPECIALIST VITAMIN B12 Routine 08/21/2024 7:44 AM TALENT SOURCING SPECIALIST FOLATE Routine 08/21/2024 7:44 AM TALENT SOURCING SPECIALIST IRON PROFILE W/ IBC Routine 08/21/2024 7 :44 AM TALENT SOURCING SPECIALIST BLOOD CULTURE Routine 08/21/2024 7:44 AM TALENT SOURCING SPECIALIST BLOOD CULTURE Routine 08/21/2024 7:44 AM TALENT SOURCING SPECIALIST EGFR Routine 08/21/2024 2:52 AM TALENT SOURCING SPECIALIST DIFFERENTIAL AUTO Routine 08/21/2024 2:5 2 AM TALENT SOURCING SPECIALIST COMPREHENSIVE METABOLIC PANEL Routine 08/21/2024 2:52 AM TALENT SOURCING SPECIALIST CBC WITH AUTO DIFFERENTIAL Routine 08/21/2024 2:52 AM TALENT SOURCING SPECIALIST XR CHEST 1 VIEW ED 08/21/2024 1:09 AM TALENT SOURCING SPECIALIST POTASSIUM, WHOLE BLOOD Timed 12:48 AM TALENT SOURCING SPECIALIST HEMOGLOBIN AND HEMATOCRIT Timed 08/21/2024 12:48 AM TALENT SOURCING SPECIALIST from Last 3 Months Allergies Active Allergy [...] 180 tablet 3 09/05/19 25 026 Active furosemide (LASIX) 80 mg tablet Take 1 tablet (80 mg total) by mouth as needed Active potassium chloride ER 10 mEq CR tablet Take 1 tablet/capsu le (10 mEq total) by mouth daily 10/02/19 25 Active amiodarone (PACERONE) 200 mg tabletIndications:Pre vention of Recurrent Atrial Fibrillation Take 2 tablets (400 mg total) by mouth daily 180 tablet 3 10/11/19 25 026 Active midodrine (PROAMATINE) 5 mg tabletIndications:Sym ptomatic Orthostatic Hypotension Take 2 tablets (10 mg total) by mouth 3 (three) times a day before meals 540 tablet 11/15/19 25 025 Active midodrine (PROAMATINE) 5 mg tabletIndications:Sym ptomatic Orthostatic Hypotension Take 3 tablets (15 mg total) by mouth 3 (three) times a day before meals 810 tablet 08/04/19 25 025 Discontin ued(Reord er) Active Problems [...] doctor or pharmacy Sometimes 08/07/2024 [facility] Utilities Answer Date Recorded In the past 12 months has e [employer], [employer], oil, or water [employer] threatened to shut off services in your [...] How often do you attend chur or episcopal services? Patient declined 07/26/2024 Do you belong to any clubs o r organizations such as roman catholic groups, unions, fraternal or athletic groups, or [...] staff should administer the PHQ-9) 0 08/21/2024 [facility]at [facility] - Occupational Stress Questionnaire Answer Date [...] time in the past 12 m [facility], were you homeless or living in a halfway (including now)? No 07/26/2024 Personal Safety Answer Date Recorded Have you ever been in or are you currently in a harmful physical or emotional relationship or is someone making you feel afraid or unsafe? Denies 08/21/2024 Comments Unknown Sex and Gender Information Value Date Recorded Sex Assigned at Not on file 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 TALENT SOURCING SPECIALIST Gender Identity Not on file Sexual Orientation Not on file Last Filed Vital Signs Vital Sign Reading Time Taken Comments Blood Pressure 80/58 10/10/2024 2:37 PM CDT Pulse 117 10/10/2024 2:37 PM CDT Temperature 36.8 C (98.3 F) 08/26/2024 3:53 PM TALENT SOURCING SPECIALIST Respiratory Rate 18 08/26/2024 3:53 PM TALENT SOURCING SPECIALIST Oxygen Saturation 97% 10/10/2024 2:37 PM CDT [...] * (ABNORMAL) Differential, auto (08/26/2024 2:36 AM TALENT SOURCING SPECIALIST) Neutrophil abs 7.6(H) 1.5 - 6.5 K/cumm Imm gran abs 0.1 0.0 - 0.1 K/cumm [facility] Lymphocyte abs 0.6(L) 0.8 - 3.3 K/cumm [facility] Monocyte abs 1.3(H) 0.2 - 0.8 K/cumm [facility] Eosinophil abs 0.2 0.0 - 0.5 K/cumm [facility] Basophil abs 0.1 0.0 - 0.1 K/cumm [facility] Neutrophil pct 77.1 % [facility] Comment: [...] revised on 2017. Blood 08/26/2024 2:36 AM TALENT SOURCING SPECIALIST 08/26/2024 4:06 AM TALENT SOURCING SPECIALIST us Bobby Ya MD LAB BLOOD ORDERABLES Final Result [facility] [address] Department [place] [address] * (ABNORMAL) CBC with auto differential (08/26/2024 2:36 AM TALENT SOURCING SPECIALIST) WBC 9.9 3.8 - 9.9 K/cumm Hgb [...] K/cumm [facility] Blood 08/26/2024 2:36 AM TALENT SOURCING SPECIALIST 08/26/2024 4:06 AM TALENT SOURCING SPECIALIST Bobby Ya MD LAB BLOOD ORDERABLES Final Result [facility] [address] [place] [address] * XR Chest 1 Vw Portable (08/25/2024 3:10 PM TALENT SOURCING SPECIALIST) Anatomical Region Laterality Modality Body, Chest N/A Computed Radiogr aphy 08/25/2024 3:29 PM TALENT SOURCING SPECIALIST Impressions 08/25/2024 3:29 PM TALENT SOURCING SPECIALIST FINDINGS/IMPRESSION: Small bilateral pleural effusions. No consolidation. Borderline cardiomegaly. No acute osseous abnormality. Electronically signed by: Peter Porter II, D.O. Narrative 08/25/2024 3:29 PM TALENT SOURCING SPECIALIST EXAMINATION: XR CHEST 1 VIEW DATE: 08/25/2024 [...] Cell Differential, Body Fluid (08/25/2024 2:32 PM TALENT SOURCING SPECIALIST) Total cells diffed 82 % Comment: Interpretive [...] % [facility] Fluid 08/25/2024 2:32 PM TALENT SOURCING SPECIALIST 08/25/2024 2:32 PM TALENT SOURCING SPECIALIST us Charles Hendrickson MD LAB BODY FLUIDS AND STO OLS ORDERABLES Final Result [facility] [address] [place] [address] * Cell count w/rflx diff, body fluid (08/25/2024 2:32 PM TALENT SOURCING SPECIALIST) Specimen type, fld Pleural Body site, fld [...] /cumm [facility] Fluid 08/25/2024 2:32 PM TALENT SOURCING SPECIALIST 08/25/2024 2:32 PM TALENT SOURCING SPECIALIST us Charles Hendrickson MD LAB BODY FLUIDS AND STO OLS ORDERABLES Final Result Performing Organization Address City/[facility]/ZIP Co de Phone Number [facility] [address] [place] [address] * Protein, body fluid (08/25/2024 2:32 PM TALENT SOURCING SPECIALIST) Specimen type, fld Pleural Comment:Testing performed by : [facility], [address] [place]., [address] Body site, fld Pleural fluid, left [facility] Comment:Testing performed by : [facility], [address] [place]., [address] Protein, fld 3.5 g/dL [facility] Comment: The above specimen type is [...] was last revised 2019. Testing performed by: [facility], [address] [place]., [address] Fluid 08/25/2024 2:32 PM TALENT SOURCING SPECIALIST 08/25/2024 5:52 PM TALENT SOURCING SPECIALIST us Charles Hendrickson MD LAB BODY FLUIDS AND STO OLS ORDERABLES Final Result [facility] [address] [place] [address] * Lactate dehydrogenase, body fluid (08/25/2024 2:32 PM TALENT SOURCING SPECIALIST) Specimen type, fld Pleural Comment:Testing performed by : [facility], [address] [place]., [address] Body site, fld Pleural fluid, left [facility] Comment:Testing performed by : [facility], [address] [facility], [place]., [address] LD, fld 151 Units/L [facility] Comment: The above specimen type is [...] Press. 2018. Chapter 43, Body Fluids, p. 927 Current Interpretive Data was last revised 2019. Testing performed by: [facility], [address] [place]., [address] Fluid 08/25/2024 2:32 PM TALENT SOURCING SPECIALIST 08/25/2024 5:52 PM TALENT SOURCING SPECIALIST Charles Hendrickson MD LAB BODY FLUIDS AND STO OLS ORDERABLES Final Result [facility] [address] Department [place] [address] * Glucose, body fluid (08/25/2024 2:32 PM TALENT SOURCING SPECIALIST) Specimen type, fld Pleural Comment:Testing performed by : [facility], [address] [place]., [address] Body site, fld Pleural fluid, left [facility] Comment:Testing performed by : [facility], [address] [place]., [address] Glucose, fld 109 mg/dL [facility] Comment: The above specimen type is not [...] and Management. Meir Clin J Med 2005;72:854-72. [place] Test directory, Body Fluid Reference Intervals and/or Interpretative Information. [email or web address] Danika COUCH et al. Pancreatic cyst fluid glucose: rapid, inexpensive, and accurate diagnosis of mucinous pancreatic cysts. Surgery 2018;163:600-5. Ribjanay DG et al. Differential diagnosis of pancreatic cysts: A prospective study on the role of intra-cystic glucose concentration. Digestive Liver Dis 2020;52:1026-32. Current Interpretive Data was last revised 2021. Testing performed by: [facility], [address] [place]., [address] Fluid 08/25/2024 2:32 PM TALENT SOURCING SPECIALIST 08/25/2024 5:52 PM TALENT SOURCING SPECIALIST Narrative [facility] - 08/25/2024 7:28 PM TALENT SOURCING SPECIALIST Body Fluid Type->Pleural us Charles Hendrickson MD LAB BODY FLUIDS AND STO OLS ORDERABLES Final Result [facility] [address] Department [place] [address] * Amylase, body fluid (08/25/2024 2:32 PM TALENT SOURCING SPECIALIST) Specimen type, fld Pleural fluid, left Comment:Testing performed by : [facility], [address] [place]., [address] Amylase, fld <30 Units/L [facility] Comment: [...] 2018. Chapter 43, Body Fluids, p. 925 [place] Test directory, Body Fluid Reference Intervals and/or Interpretative Information. [email or web address] Current Interpretive Data was last revised 2019. Testing performed by: [facility], [address] [facility], [place]., [address] Fluid 08/25/2024 2:32 PM TALENT SOURCING SPECIALIST 08/25/2024 5:52 PM TALENT SOURCING SPECIALIST us Charles Hendrickson MD LAB BODY FLUIDS AND STO OLS ORDERABLES Final Result [facility] [address] Department of Laboratories [place], [place] [id number] * XR Chest PA Lateral 2 Views (08/25/2024 8:27 AM TALENT SOURCING SPECIALIST) Anatomical Region Laterality Modality Body, Chest N/A Computed Radiogr aphy 08/25/2024 8:52 AM TALENT SOURCING SPECIALIST Impressions 08/25/2024 8:52 AM TALENT SOURCING SPECIALIST PERSISTENT PLEURAL EFFUSIONS LARGER ON THE LEFT THAN THE RIGHT. MILD FLUID OVERLOAD Electronically signed by: Bryant Alvarez M.D. Narrative 08/25/2024 8:52 AM TALENT SOURCING SPECIALIST EXAMINATION: XR CHEST PA LATERAL 2 VIEWS [...] OVERLOAD Electronically signed by: Bryant Alvarez M.D. Charlse Hendrickson MD IMG XR PROCEDURES Final Result * (ABNORMAL) Differential, auto (08/25/2024 3:03 AM TALENT SOURCING SPECIALIST) Neutrophil abs 7.4(H) 1.5 - 6.5 K/cumm [...] on 2017. Monocyte pct 13.3 % [facility] Comment: Interpretive Data Percent [...] revised on 2017. Blood 08/25/2024 3:03 AM TALENT SOURCING SPECIALIST 08/25/2024 4:15 AM TALENT SOURCING SPECIALIST Bobby Ya MD LAB BLOOD ORDERABLES Final Result [facility] [address] [place] [address] * (ABNORMAL) CBC with auto differential (08/25/2024 3:03 AM TALENT SOURCING SPECIALIST) WBC 9.8 3.8 - 9.9 K/cumm Hgb 7.3(L) 11.9 - 15.5 g/dL [facility] Hct 24.3(L) 35.6 - 45.5 % [facility] Plt 424(H) 150 - 400 K/cumm [facility] MPV 8.6(L) 9.1 - 12.3 fL [facility] RBC 2.36(L) 3.90 - 5.20 M/cumm [facility] MCV 103.0(H) 81.3 - 96.4 fL [facility] MCH 30.9 27.1 - 33.3 pg [facility] MCHC 30.0(L) 32.3 - 35.7 g/dL [facility] RDW CV 16.2(H) 11.1 - 14.9 % [facility] RDW SD 61.8(H) 35.7 - 48.1 fL [facility] NRBC abs 0.00 0.00 - 0.01 K/cumm [facility] Blood 08/25/2024 3:03 AM TALENT SOURCING SPECIALIST 08/25/2024 4:15 AM TALENT SOURCING SPECIALIST Bobby Ya MD LAB BLOOD ORDERABLES Final Result Performing Organization Address City/State/[facility] Co de Phone Number [address] Department of Laboratories [place] [phone] * Cytology (08/25/2024 12:00 AM TALENT SOURCING SPECIALIST) Fluid (Pleura (Cytology)) 08/25/2024 08/25/2024 2:53 PM TALENT SOURCING SPECIALIST Narrative PATHOLOGY CH - 08/27/2024 12:43 PM TALENT SOURCING SPECIALIST EPIC results best viewed via link to PDF [facility] Department of Pathology [address] [place] [id number] Note to Patients: This report may [...] Final Report Patient Name: DORY NOBLE Address: [address] [place] [address] Gender: F : 1960 (Age: 63) Service: Medical Location: [facility] # [id number] Patient Type: [facility] Taken: 08/25/2024 Received: 08/25/2024 Accessioned: 08/25/2024 Reported: [...] determined by the Surgical Pathology Department at [facility] as part of an ongoing quality manager program and in compliance with federally [...] characteristics determined by the Surgical Pathology Department [facility]. It has not been cleared or approved by the U. S. Food and Drug Administration. Unless otherwise noted all cytology processing, staining and screening is performed at [facility] ([address] [place] [address]). REPORT IMAGES AND SCANNED DOCUMENTS, IF INCLUDED, ONLY VIEWABLE IN PDF VERSION OF REPORT us Charles Hendrickson MD LAB CYTOLOGY ORDERABLES [place] [address] * (ABNORMAL) Differential, auto (08/24/2024 4:34 AM TALENT SOURCING SPECIALIST) Neutrophil abs 7.9(H) 1.5 - 6.5 K/cumm Imm gran abs 0.1 0.0 - 0.1 K/cumm [facility] Lymphocyte abs 0.6(L) 0.8 - 3.3 K/cumm [facility] Monocyte abs 1.3(H) 0.2 - 0.8 K/cumm [facility] Eosinophil abs 0.3 0.0 - 0.5 K/cumm [facility] Basophil abs 0.1 0.0 - 0.1 K/cumm [facility] Neutrophil pct 77.1 % [facility] Comment: Interpretive Data Percent cell count reference ranges are not reported, since discordance with absolute values may lead to misinterpretation of CBC data. Current Interpretive Data was last revised on 2017. Imm gran pct 1.4 % [facility] Comment: Interpretive Data Percent cell count reference ranges are not reported, since discordance with absolute values may lead to misinterpretation of CBC data. Current Interpretive Data was last revised on 2017. Lymphocyte pct 5.4 % [facility] Comment: Interpretive Data Percent cell count reference ranges are not reported, since discordance with absolute values may lead to misinterpretation of CBC data. Current Interpretive Data was last revised on 2017. Monocyte pct 12.6 % [facility] Comment: Interpretive Data Percent cell count reference ranges are not reported, since discordance with absolute values may lead to misinterpretation of CBC data. Current Interpretive Data was last revised on 2017. Eosinophil pct 2.9 % [facility] Comment: Interpretive Data Percent [...] revised on 2017. Blood 08/24/2024 4:34 AM TALENT SOURCING SPECIALIST 08/24/2024 4:49 AM TALENT SOURCING SPECIALIST Bobby Ya MD LAB BLOOD ORDERABLES Final Result [facility] [address] [place] [address] * (ABNORMAL) CBC with auto differential (08/24/2024 4:34 AM TALENT SOURCING SPECIALIST) Pathologist [facility] WBC 10.3(H) 3.8 - 9.9 K/cumm Hgb [...] K/cumm [facility] Blood 08/24/2024 4:34 AM TALENT SOURCING SPECIALIST 08/24/2024 4:49 AM TALENT SOURCING SPECIALIST Bobby Ya MD LAB BLOOD ORDERABLES Final Result [facility] [address] Department of [place], [place] [id number] * (ABNORMAL) eGFR (08/22/2024 9:54 AM TALENT SOURCING SPECIALIST) Pathologist [facility] eGFR 3(L) >=60 mL/min/1. 73 m2 Comment: [...] last reviewed 2021. Blood 08/22/2024 9:54 AM TALENT SOURCING SPECIALIST 08/22/2024 10:37 AM TALENT SOURCING SPECIALIST us Kala Barbosa NP LAB BLOOD ORDERABLES Final R esult [facility] [address] Department [place] [address] * (ABNORMAL) Differential, auto (08/22/2024 9:54 AM TALENT SOURCING SPECIALIST) Neutrophil abs 9.3(H) 1.5 - 6.5 K/cumm Imm gran abs 0.2(H) 0.0 - 0.1 K/cumm [facility] Lymphocyte abs 0.7(L) 0.8 - 3.3 K/cumm [facility] Monocyte abs 1.2(H) 0.2 - 0.8 K/cumm [facility] Eosinophil abs 0.3 0.0 - 0.5 K/cumm [facility] Basophil abs 0.1 0.0 - 0.1 K/cumm [facility] Neutrophil pct 79.3 % [facility] Comment: Interpretive [...] revised on 2017. Lymphocyte pct 5.7 % [facility] Comment: Interpretive Data Percent cell [...] revised on 2017. Blood 08/22/2024 9:54 AM TALENT SOURCING SPECIALIST 08/22/2024 10:36 AM TALENT SOURCING SPECIALIST us Kala Barbosa NP LAB BLOOD ORDERABLES Final R esult [facility] [address] [place] [address] * (ABNORMAL) CBC with auto differential (08/22/2024 9:54 AM TALENT SOURCING SPECIALIST) WBC 11.7(H) 3.8 - 9.9 K/cumm Hgb 7.4(L) 11.9 - 15.5 g/dL [facility] Hct 24.6(L) 35.6 - 45.5 % [facility] Plt 462(H) 150 - 400 K/cumm [facility] MPV 8.5(L) 9.1 - 12.3 fL [facility] RBC 2.37(L) 3.90 - 5.20 M/cumm [facility] MCV 103.8(H) 81.3 - 96.4 fL [facility] MCH 31.2 27.1 - 33.3 pg [facility] MCHC 30.1(L) 32.3 - 35.7 g/dL [facility] RDW CV 18.0(H) 11.1 - 14.9 % [facility] RDW SD 67.7(H) 35.7 - 48.1 fL [facility] NRBC abs 0.00 0.00 - 0.01 K/cumm [facility] Blood 08/22/2024 9:54 AM TALENT SOURCING SPECIALIST 08/22/2024 10:36 AM TALENT SOURCING SPECIALIST us Kala Barbosa NP LAB [place]LOOD [place] [address] [address] [place] [address] * (ABNORMAL) Comprehensive metabolic panel (08/22/2024 9:54 AM TALENT SOURCING SPECIALIST) Sodium 137 135 - 145 mmol/L Potassium, [...] Units/L [facility] Blood 08/22/2024 9:54 AM TALENT SOURCING SPECIALIST 08/22/2024 10:37 AM TALENT SOURCING SPECIALIST Kala Barbosa SERVICING REP LAB BLOOD ORDERABLES Final R esult [facility] [address] [place] [address] * (ABNORMAL) Urinalysis reflex to microscopic and culture Urine, clean voided (08/21/2024 6:01 PM TALENT SOURCING SPECIALIST) Color, ur Mitzi Yellow Clarity, ur Turbid(A) [...] tendency for uric acid stone formation. Source: [facility] Current Interpretive Data was last revised on [...] CH Urine, clean voided 08/21/2024 6:01 PM TALENT SOURCING SPECIALIST 08/21/2024 6:06 PM TALENT SOURCING SPECIALIST Bobby Ya MD LAB MICROBIOLOGY - GENERAL ORDERABLES Final Result Performing Organization Address [facility] Co de Phone Number [facility] [address] [place] [address] * (ABNORMAL) Urinalysis, microscopic only (08/21/2024 6:01 PM TALENT SOURCING SPECIALIST) WBC, ur >50(A) 0 - 5 /HPF RBC, ur >50(A) 0 - 2 /HPF [facility] Epithelial cells, squamous, ur 21-50(A) 0 - 5 /HPF [facility] Culture Reflex Comment Reflex to urine culture will be performed. [facility] Urine, clean voided 08/21/2024 6:01 PM TALENT SOURCING SPECIALIST 08/21/2024 6:06 PM TALENT SOURCING SPECIALIST Bobby Ya MD LAB URINE ORDERABLES Final Result Performing Organization Address [facility] de Phone Number [facility] [address] [place] [address] * Urine culture Urine, clean voided (08/21/2024 6:01 PM TALENT SOURCING SPECIALIST) Report Final Report: Less than 100,000 colonies/mL (clinically insignificant growth based on current clinical standards) Comment:Testing performed by : [facility], [address] [place] [address]., [address] Organism (CLINICALLY INSIGNIFICANT GROWTH [facility] Urine, clean voided 08/21/2024 6:01 PM TALENT SOURCING SPECIALIST 08/21/2024 8:14 PM TALENT SOURCING SPECIALIST Narrative [facility] - 08/23/2024 7:20 AM TALENT SOURCING SPECIALIST Urine culture reflexed based upon urinalysis results. Testing performed by [facility] ([phone]) Bobby Ya MD LAB MICROBIOLOGY - GENERAL ORDERABLES Final Result Performing Organization Address [facility] Co de Phone Number [facility] [address] [place] [address] * CT Chest Abdomen Pelvis WO Contrast (08/21/2024 4:56 PM TALENT SOURCING SPECIALIST) Anatomical Region Laterality Modality Body N/A Computed Tomogra phy 08/21/2024 5:31 PM TALENT SOURCING SPECIALIST Impressions 08/22/2024 2:24 PM TALENT SOURCING SPECIALIST Moderate loculated left pleural effusion with left [...] Priscila Ochoa M.D. Narrative 08/22/2024 2:24 PM TALENT SOURCING SPECIALIST EXAM: CT CHEST, ABDOMEN AND PELVIS WITHOUT [...] noted without pericardial effusion..Atherosclerotic nonaneurysmal aorta with [id number] calcified plaque and mild aortic valvular calcification [...] noted without pericardial effusion..Atherosclerotic nonaneurysmal aorta with [id number] calcified plaque and mild aortic valvular calcification [...] Iron profile w/ IBC (08/21/2024 7:44 AM TALENT SOURCING SPECIALIST) Iron 164(H) 35 - 145 mcg/dl TIBC 254 250 - 400 mcg/dL [facility] Transferrin saturation 65(H) 20 - 50 % [facility] Blood 08/21/2024 7:44 AM TALENT SOURCING SPECIALIST 08/21/2024 9:19 AM TALENT SOURCING SPECIALIST Kala Barbosa NP LAB BLOOD ORDERABLES Final R esult [facility] [address] [place] [address] * Blood culture Blood (08/21/2024 7:44 AM TALENT SOURCING SPECIALIST) Report Final Report: No growth Comment:Testing performed by : [facility], [address] [place]., [address] Blood 08/21/2024 7:44 AM TALENT SOURCING SPECIALIST 08/21/2024 12:57 PM TALENT SOURCING SPECIALIST Narrative [facility] - 08/25/2024 4:00 PM TALENT SOURCING SPECIALIST From a different site than #1. Collection->Peripheral [...] performance characteristics have been verified by the [facility]. For questions about this culture, contact the Microbiology Laboratory at [phone]. Interpretive data was last revised on 24. us Kala Barbosa NP LAB MICROBIOLOGY - GENERAL O RDERABLES Final Result LAINE KRISTIAN [id number] [place] [address] * Blood culture Blood (08/21/2024 7:44 AM TALENT SOURCING SPECIALIST) Report Final Report: No growth Comment:Testing performed by : [facility], [address] [place]., [address] Blood 08/21/2024 7:44 AM TALENT SOURCING SPECIALIST 08/21/2024 12:57 PM TALENT SOURCING SPECIALIST Narrative LAINE TOWNSEND - 08/25/2024 4:00 PM TALENT SOURCING SPECIALIST Collection->Peripheral 1. Blood cultures are incubated for [...] performance characteristics have been verified by the [facility] Microbiology [facility]. For questions about this culture, contact the Microbiology Laboratory at [phone]. Interpretive data was last revised on 24. Kala Barbosa NP LAB MICROBIOLOGY - GENERAL O RDERABLES Final Result Performing Organization Address City/[facility]/ZIP Co de Phone Number [facility] [id number] [place] [address] * Folate (08/21/2024 7:44 AM TALENT SOURCING SPECIALIST) Folic acid >20.0 >=5.0 ng/mL Comment:Hemolysis present. R esults may be affected. Blood 08/21/2024 7:44 AM TALENT SOURCING SPECIALIST 08/21/2024 9:19 AM TALENT SOURCING SPECIALIST Kala Barbosa NP LAB BLOOD ORDERABLES Final R esult Performing Organization Address City/[facility]/ZIP Co de Phone Number LAINE TOWNSEND [phone] [place] [address] * (ABNORMAL) Vitamin B12 (08/21/2024 7:44 AM TALENT SOURCING SPECIALIST) Vitamin B12 1,704(H) 230 - 1,250 pg/mL Blood 08/21/2024 7:44 AM TALENT SOURCING SPECIALIST 08/21/2024 9:19 AM TALENT SOURCING SPECIALIST Kala Barbosa NP LAB BLOOD ORDERABLES Final R esult Performing Organization Address [facility] Co de Phone Number LAINE TOWNSEND [id number] [facility] [place], [place] [id number] * (ABNORMAL) eGFR (08/21/2024 2:52 AM TALENT SOURCING SPECIALIST) Pathologist [facility] eGFR 4(L) >=60 mL/min/1. 73 m2 Comment: [...] last reviewed 2021. Blood 08/21/2024 2:52 AM TALENT SOURCING SPECIALIST 08/21/2024 3:17 AM TALENT SOURCING SPECIALIST Kala Barbosa NP LAB BLOOD ORDERABLES Final R esult Performing Organization Address City/[facility] Co de Phone Number LAINE TOWNSEND [phone] [place] [address] * (ABNORMAL) Differential, auto (08/21/2024 2:52 AM TALENT SOURCING SPECIALIST) Neutrophil abs 9.6(H) 1.5 - 6.5 K/cumm Imm gran abs 0.2(H) 0.0 - 0.1 K/cumm CERNER CH Lymphocyte abs 1.0 0.8 - 3.3 K/cumm CERNER CH Monocyte abs 1.4(H) 0.2 - 0.8 K/cumm CERNER Eosinophil abs 0.3 0.0 - 0.5 K/cumm CERNER Basophil abs 0.1 0.0 - 0.1 K/cumm CERNER Neutrophil pct 76.2 % CERNER Comment: Interpretive [...] revised on 2017. Blood 08/21/2024 2:52 AM TALENT SOURCING SPECIALIST 08/21/2024 3:18 AM TALENT SOURCING SPECIALIST Kala Barbosa SERVICING REP LAB BLOOD ORDERABLES Final R esult LAINE [address] [employer]ments[employer] [place], [place] [id number] * (ABNORMAL) CBC with auto differential (08/21/2024 2:52 AM TALENT SOURCING SPECIALIST) WBC 12.6(H) 3.8 - 9.9 K/cumm Hgb [...] K/cumm CERNER CH Blood 08/21/2024 2:52 AM TALENT SOURCING SPECIALIST 08/21/2024 3:18 AM TALENT SOURCING SPECIALIST Kala Barbosa NP LAB BLOOD ORDERABLES Final R esult LAINE [address] [facility] [place] [address] * (ABNORMAL) Comprehensive metabolic panel (08/21/2024 2:52 AM TALENT SOURCING SPECIALIST) Sodium 136 135 - 145 mmol/L Potassium, [...] Units/L CERNER CH Blood 08/21/2024 2:52 AM TALENT SOURCING SPECIALIST 08/21/2024 3:17 AM TALENT SOURCING SPECIALIST us Kala Barbosa NP LAB BLOOD ORDERABLES Final R esult LAINE [address] Department [place] [address] * XR Chest 1 Vw Portable (08/21/2024 1:09 AM TALENT SOURCING SPECIALIST) Anatomical Region Laterality Modality Body, Chest N/A Computed Radiogr aphy 08/21/2024 8:04 AM TALENT SOURCING SPECIALIST Impressions 08/21/2024 8:04 AM TALENT SOURCING SPECIALIST CARDIOMEGALY WITH CONSOLIDATING OPACITY IN THE LEFT BASE AND HAZY OPACITY IN THE RIGHT BASE WITH FLUID IN THE FISSURE. A LATERAL CHEST VIEW OR CT OF THE CHEST IS SUGGESTED TO EVALUATE THE LUNG BASES. Electronically signed by: Sulaiman Xie M.D. Narrative 08/21/2024 8:04 AM TALENT SOURCING SPECIALIST EXAMINATION: XR CHEST 1 VIEW HISTORY: Elevated [...] signed by: Sulaiman Xie M.D. Susan Salcedo SERVICING REP IMG XR PROCEDURES Fi nal Result * (ABNORMAL) Potassium, whole blood (08/21/2024 12:48 AM TALENT SOURCING SPECIALIST) Potassium, bld 3.1(L) 3.3 - 4.9 mmol/L Comment: Interpretive Data This method is not able to assess for hemolysis, which may falsely increase potassium concentrations. If further testing is needed to evaluate this result, consider in-laboratory plasma potassium. Current Interpretive Data was last revised on 2022. Blood 08/21/2024 12:4 8 AM TALENT SOURCING SPECIALIST 08/21/2024 12:59 AM TALENT SOURCING SPECIALIST us Susan Salcedo NP LAB BLOOD ORDERABLES Final Result Performing Organization Address City/[facility]/ZIP Co de Phone Number LAINE TOWNSEND [phone] [place] [address] * (ABNORMAL) Hemoglobin and hematocrit (08/21/2024 12:48 AM TALENT SOURCING SPECIALIST) Hgb 7.2(L) 11.9 - 15.5 g/dL Hct 23.7(L) 35.6 - 45.5 % LAINE TOWNSEND Blood 08/21/2024 12:4 8 AM TALENT SOURCING SPECIALIST 08/21/2024 1:00 AM TALENT SOURCING SPECIALIST us Susan Salcedo NP LAB BLOOD ORDERABLES Final Result Performing Organization Address City/[facility]/ZIP Co de Phone Number LAINE TOWNSEND [phone] [facility] [place] [place] [address] from Last 3 Months
--- OUTSIDE RECORDS SUMMARY | 2024-11-18 15:03 | XMS_ITS | Clinical Summary ---
Author Organization [facility] [address] Address [address] [place] [address] Care Team Providers Care Tooling Supervisor Name Role Phone Mookie Dubois MD Unavailable [phone] Jama Hoskins MD Unavailable [phone] Porsche Becker NP Primary Care Provider [phone] Allergies Active Allergy Reactions Criticality Noted Date [...] Encounters Date Type Department Care Team Description 11/11/2024 Telephone [facility] Cardiology [address] [place] [address] Jama Hoskins MD 10/10/2024 2:30 PM CDT Office Visit [facility] Cardiology [address] [place] [address] Lydia Lewis NP Need for lipid screening (Primary Dx); Hypotension due to hypovolemia; Persistent atrial fibrillation (HCC); Chronic anticoagulation; Preoperative cardiovascular examination 10/10/2024 Telephone [facility] Transplant Kidney [address] Mailstop [phone] [place] [address] Abigail Dougherty RN 09/30/2024 Telephone [facility] Cardiology [address] [place] [phone] Jama Hoskins MD 09/05/2024 Telephone [facility] Cardiology [address] [facility] [address] [place] [phone] Jama Hoskins MD 09/03/2024 Telephone [facility] Transplant Kidney [address] Mailstop [phone] [place] [address] Abigail Dougherty RN 08/28/2024 Home Care Visit [facility] [address] [address] [address] [place] [address] Lillian Campuzano, PT PT VIRTUAL NON OASIS DISCHARGE 08/20/2024 7:40 PM INFORMATION DIRECTOR - 08/26/2024 6:54 PM INFORMATION DIRECTOR Hospital Encounter [address] [address] Mike Connell MD Myla, Lathamanjari, MD Anemia due to chronic kidney disease, on chronic dialysis (HCC) (Primary Dx) Discharge Disposition: Discharge to home or self care from Last 3 Months Immunizations Immunization [...] materials from doctor or pharmacy Sometimes 08/07/2024 [facility] Utilities Answer Date Recorded In the past 12 months has th e Thumb, [place]more, oil, or water Hello Agent threatened to shut off services in your [...] often do you attend chur ch or gnosticist services? Patient declined 07/26/2024 Do you belong [...] should administer the PHQ-9) 0 08/21/2024 [facility] of Occupat ional [facility] - Occupational Stress Questionnaire Answer Date [...] time in the past 12 m [facility], were you homeless or living in a prison (including now)? No 07/26/2024 Personal Safety Answer Date Recorded Have you ever been in or are you currently in a harmful physical or emotional relationship or is someone making you feel afraid or unsafe? Denies 08/21/2024 Comments Unknown Sex and Gender Information Value Date Recorded Sex Assigned at Not on file 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 INFORMATION DIRECTOR Gender Identity Not on file Sexual Orientation Not on file Obstetrics History Last Filed Vital Signs Vital Sign Reading Time Taken Comments Blood Pressure 80/58 10/10/2024 2:37 PM CDT Pulse 117 10/10/2024 2:37 PM CDT Temperature 36.8 C (98.3 F) 08/26/2024 3:53 PM INFORMATION DIRECTOR Respiratory Rate 18 08/26/2024 3:53 PM INFORMATION DIRECTOR Oxygen Saturation 97% 10/10/2024 2:37 PM CDT [...] history exists Medical Devices Implanted Type Area Coach Operator Device Identifier Shelf Expiration Date Model / Serial / Lot Dental Implant Other - see comments Description:Upper [employer] Stow 15fr 62cm 2 Cuff Radiopaque Peritoneal Curl Catheter [id number] - [id number] Implanted:Qty: 1 on 04/03/2022 by Sulaiman Hi MD at [facility] Left: Abdomen [employer] 10/16/2026 [id number] / / [id number] Procedures Procedure Name Priority Date/Time Associated Diagnosis Comments POCT LIPID PANEL Routine 10/10/2024 4:22 PM CDT Need for lipid screening ELECTROCARDIOGRAM REPORT Routine 10/10/2024 4:08 PM CDT Persistent atrial fibrillation (HCC) DIFFERENTIAL AUTO Routine 08/26/2024 2:3 6 AM INFORMATION DIRECTOR CBC WITH AUTO DIFFERENTIAL Routine 08/26/2024 2:36 AM INFORMATION DIRECTOR CONTINUOUS CYCLIC PERITONEAL DIALYSIS (CCPD) Routine 08/26/2024 12:31 AM INFORMATION DIRECTOR XR CHEST 1 VIEW IP Routine 08/25/2024 3:10 PM INFORMATION DIRECTOR CELL DIFFERENTIAL, BODY FLUID Routine 08/25/2024 2:32 PM INFORMATION DIRECTOR AMYLASE, BODY FLUID Routine 08/25/2024 2 :32 PM INFORMATION DIRECTOR CELL COUNT W/REFLEX DIFFERENTIAL, BODY FLUID Routine 08/25/2024 2:32 PM INFORMATION DIRECTOR GLUCOSE, BODY FLUID Routine 08/25/2024 2 :32 PM INFORMATION DIRECTOR LACTATE DEHYDROGENASE, BODY FLUID Routine 08/25/2024 2:32 PM INFORMATION DIRECTOR PROTEIN, BODY FLUID Routine 08/25/2024 2 :32 PM INFORMATION DIRECTOR XR CHEST PA LATERAL 2 VIEWS IP Routine 08/25/2024 8:27 AM INFORMATION DIRECTOR DIFFERENTIAL AUTO Routine 08/25/2024 3:0 3 AM INFORMATION DIRECTOR CBC WITH AUTO DIFFERENTIAL Routine 08/25/2024 3:03 AM INFORMATION DIRECTOR CYTOLOGY Routine 08/25/2024 12:00 AM INFORMATION DIRECTOR DIFFERENTIAL AUTO Routine 08/24/2024 4:3 4 AM INFORMATION DIRECTOR CBC WITH AUTO DIFFERENTIAL Routine 08/24/2024 4:34 AM INFORMATION DIRECTOR EGFR Routine 08/22/2024 9:54 AM INFORMATION DIRECTOR DIFFERENTIAL AUTO Routine 08/22/2024 9:5 4 AM INFORMATION DIRECTOR COMPREHENSIVE METABOLIC PANEL Routine 08/22/2024 9:54 AM INFORMATION DIRECTOR CBC WITH AUTO DIFFERENTIAL Routine 08/22/2024 9:54 AM INFORMATION DIRECTOR URINALYSIS, MICROSCOPIC ONLY Routine 08/21/2024 6:01 PM INFORMATION DIRECTOR URINE CULTURE Routine 08/21/2024 6:01 PM INFORMATION DIRECTOR URINALYSIS AND REFLEX TO MICROSCOPIC AND CULTURE Routine 08/21/2024 6:[address] CHEST ABDOMEN PELVIS WO CONTRAST ED Urgent/IP Urgent 08/21/2024 4:56 PM INFORMATION DIRECTOR VITAMIN B12 Routine 08/21/2024 7:44 AM INFORMATION DIRECTOR FOLATE Routine 08/21/2024 7:44 AM INFORMATION DIRECTOR IRON PROFILE W/ IBC Routine 08/21/2024 7 :44 AM INFORMATION DIRECTOR BLOOD CULTURE Routine 08/21/2024 7:44 AM INFORMATION DIRECTOR BLOOD CULTURE Routine 08/21/2024 7:44 AM INFORMATION DIRECTOR EGFR Routine 08/21/2024 2:52 AM INFORMATION DIRECTOR DIFFERENTIAL AUTO Routine 08/21/2024 2:5 2 AM INFORMATION DIRECTOR COMPREHENSIVE METABOLIC PANEL Routine 08/21/2024 2:52 AM INFORMATION DIRECTOR CBC WITH AUTO DIFFERENTIAL Routine 08/21/2024 2:52 AM INFORMATION DIRECTOR XR CHEST 1 VIEW ED 08/21/2024 1:09 AM INFORMATION DIRECTOR POTASSIUM, WHOLE BLOOD Timed 12:48 AM INFORMATION DIRECTOR HEMOGLOBIN AND HEMATOCRIT Timed 08/21/2024 12:48 AM INFORMATION DIRECTOR from Last 3 Months Results * POCT [...] * (ABNORMAL) Differential, auto (08/26/2024 2:36 AM INFORMATION DIRECTOR) Neutrophil abs 7.6(H) 1.5 - 6.5 K/cumm [...] on 2017. Imm gran pct 1.3 % [facility] Comment: Interpretive Data Percent cell [...] revised on 2017. Monocyte pct 13.0 % [facility] Comment: Interpretive Data Percent cell [...] revised on 2017. Blood 08/26/2024 2:36 AM INFORMATION DIRECTOR 08/26/2024 4:06 AM INFORMATION DIRECTOR Bobby Ya MD LAB BLOOD ORDERABLES Final Result [facility] [address] Department [place] [address] * (ABNORMAL) CBC with auto differential (08/26/2024 2:36 AM INFORMATION DIRECTOR) WBC 9.9 3.8 - 9.9 K/cumm Hgb 7.2(L) 11.9 - 15.5 g/dL [facility] Hct 24.2(L) 35.6 - 45.5 % [facility] Plt 383 150 - 400 K/cumm [facility] MPV 8.7(L) 9.1 - 12.3 fL [facility] RBC 2.36(L) 3.90 - 5.20 M/cumm [facility] MCV 102.5(H) 81.3 - 96.4 fL [facility] CH MCH 30.5 27.1 - 33.3 pg [facility] MCHC 29.8(L) 32.3 - 35.7 g/dL [facility] RDW CV 15.9(H) 11.1 - 14.9 % [facility] RDW SD 58.7(H) 35.7 - 48.1 fL [facility] NRBC abs 0.00 0.00 - 0.01 K/cumm [facility] Blood 08/26/2024 2:36 AM INFORMATION DIRECTOR 08/26/2024 4:06 AM INFORMATION DIRECTOR Bobby Ya MD LAB BLOOD ORDERABLES Final Result [facility] [address] Department [place] [address] * XR Chest 1 Vw Portable (08/25/2024 3:10 PM INFORMATION DIRECTOR) Anatomical Region Laterality Modality Body, Chest N/A Computed Radiogr aphy 08/25/2024 3:29 PM INFORMATION DIRECTOR Impressions 08/25/2024 3:29 PM INFORMATION DIRECTOR FINDINGS/IMPRESSION: Small bilateral pleural effusions. No consolidation. Borderline cardiomegaly. No acute osseous abnormality. Electronically signed by: Peter Porter II, D.O. Narrative 08/25/2024 3:29 PM INFORMATION DIRECTOR EXAMINATION: XR CHEST 1 VIEW DATE: 08/25/2024 [...] Cell Differential, Body Fluid (08/25/2024 2:32 PM INFORMATION DIRECTOR) Total cells diffed 82 % Comment: Interpretive [...] % [facility] Fluid 08/25/2024 2:32 PM INFORMATION DIRECTOR 08/25/2024 2:32 PM INFORMATION DIRECTOR Charles Hendrickson MD LAB BODY FLUIDS AND STO [employer] ORDERABLES Final Result Performing Organization Address [facility] de Phone Number [facility] [address] [employer] [place] [address] * Cell count w/rflx diff, body fluid (08/25/2024 2:32 PM INFORMATION DIRECTOR) Specimen type, fld Pleural Body site, fld [...] /cumm [facility] Fluid 08/25/2024 2:32 PM INFORMATION DIRECTOR 08/25/2024 2:32 PM INFORMATION DIRECTOR Charles Hendrickson MD LAB BODY FLUIDS AND STO OLS ORDERABLES Final Result Performing Organization Address [facility] de Phone Number [facility] [address] [place] [address] * Protein, body fluid (08/25/2024 2:32 PM INFORMATION DIRECTOR) Specimen type, fld Pleural Comment:Testing performed by : [facility], [address] [place]., [address] Body site, fld Pleural fluid, left [facility] Comment:Testing performed by : [facility], [address] [place]., [address] Protein, fld 3.5 g/dL [facility] Comment: The [...] last revised 2019. Testing performed by: [facility], [address] [place] [address]., [address] Fluid 08/25/2024 2:32 PM INFORMATION DIRECTOR 08/25/2024 5:52 PM INFORMATION DIRECTOR Charles Hendrickson MD LAB BODY FLUIDS AND STO OLS ORDERABLES Final Result [facility] [address] Department [place] [address] * Lactate dehydrogenase, body fluid (08/25/2024 2:32 PM INFORMATION DIRECTOR) Specimen type, fld Pleural Comment:Testing performed by : [facility], [address] [place] [address]., [address] Body site, fld Pleural fluid, left [facility] Comment:Testing performed by : [facility], [address] [place]., [address] LD, fld 151 Units/L [facility] Comment: The [...] last revised 2019. Testing performed by: [facility], [address] [place]., [address] Fluid 08/25/2024 2:32 PM INFORMATION DIRECTOR 08/25/2024 5:52 PM INFORMATION DIRECTOR us Charles Hendrickson MD LAB BODY FLUIDS AND STO OLS ORDERABLES Final Result [facility] [address] Department [place] [address] * Glucose, body fluid (08/25/2024 2:32 PM INFORMATION DIRECTOR) Specimen type, fld Pleural Comment:Testing performed by : [facility], [address] [place]., [address] Body site, fld Pleural fluid, left [facility] Comment:Testing performed by : [facility], [address] [place]., [address] Glucose, fld 109 mg/dL [facility] Comment: The [...] and Management. Meir Clin J Med 2005;72:854-72. [employer] Test directory, Body Fluid Reference Intervals and/or Interpretative Information. [email or web address] Danika COUCH et al. Pancreatic cyst fluid glucose: rapid, inexpensive, and accurate diagnosis of mucinous pancreatic cysts. Surgery 2018;163:600-5. Mohsen DG et al. Differential diagnosis of pancreatic cysts: A prospective study on the role of intra-cystic glucose concentration. Digestive Liver Dis 2020;52:1026-32. Current Interpretive Data was last revised 2021. Testing performed by: [facility], [address] [facility] [place]., [address] Fluid 08/25/2024 2:32 PM INFORMATION DIRECTOR 08/25/2024 5:52 PM INFORMATION DIRECTOR Narrative [facility] - 08/25/2024 7:28 PM INFORMATION DIRECTOR Body Fluid Type->Pleural us Charles Hendrickson MD LAB BODY FLUIDS AND STO OLS ORDERABLES Final Result [facility] [address] Department [place] [address] * Amylase, body fluid (08/25/2024 2:32 PM INFORMATION DIRECTOR) Specimen type, fld Pleural fluid, left Comment:Testing performed by : [facility], [address] [facility] [place]., [address] Amylase, fld <30 Units/L [facility] Comment: [...] 2018. Chapter 43, Body Fluids, p. 925 [employer] Test directory, Body Fluid Reference Intervals and/or Interpretative Information. [email or web address] Current Interpretive Data was last revised 2019. Testing performed by: [facility], [address] [facility], [place]., [address] Fluid 08/25/2024 2:32 PM INFORMATION DIRECTOR 08/25/2024 5:52 PM INFORMATION DIRECTOR us Charles Hendrickson MD LAB BODY FLUIDS AND STO OLS ORDERABLES Final Result [facility] [address] Department [place] [address] * XR Chest PA Lateral 2 Views (08/25/2024 8:27 AM INFORMATION DIRECTOR) Anatomical Region Laterality Modality Body, Chest N/A Computed Radiogr aphy 08/25/2024 8:52 AM INFORMATION DIRECTOR Impressions 08/25/2024 8:52 AM INFORMATION DIRECTOR PERSISTENT PLEURAL EFFUSIONS LARGER ON THE LEFT THAN THE RIGHT. MILD FLUID OVERLOAD Electronically signed by: Bryant Alvarez M.D. Narrative 08/25/2024 8:52 AM INFORMATION DIRECTOR EXAMINATION: XR CHEST PA LATERAL 2 VIEWS [...] * (ABNORMAL) Differential, auto (08/25/2024 3:03 AM INFORMATION DIRECTOR) Neutrophil abs 7.4(H) 1.5 - 6.5 K/cumm [...] on 2017. Lymphocyte pct 6.6 % [facility] Comment: Interpretive Data Percent [...] on 2017. Eosinophil pct 2.7 % [facility] Comment: Interpretive Data Percent cell count reference ranges are not reported, since discordance with absolute values may lead to misinterpretation of CBC data. Current Interpretive Data was last revised on 2017. Basophil pct 0.6 % [facility] Comment: Interpretive Data Percent cell count reference ranges are not reported, since discordance with absolute values may lead to misinterpretation of CBC data. Current Interpretive Data was last revised on 2017. Blood 08/25/2024 3:03 AM INFORMATION DIRECTOR 08/25/2024 4:15 AM INFORMATION DIRECTOR Bobby Ya MD LAB BLOOD ORDERABLES Final Result [facility] [address] Department [place] [address] * (ABNORMAL) CBC with auto differential (08/25/2024 3:03 AM INFORMATION DIRECTOR) WBC 9.8 3.8 - 9.9 K/cumm Hgb 7.3(L) 11.9 - 15.5 g/dL [facility] Hct 24.3(L) 35.6 - 45.5 % [facility] Plt 424(H) 150 - 400 K/cumm [facility] MPV 8.6(L) 9.1 - 12.3 fL [facility] RBC 2.36(L) 3.90 - 5.20 M/cumm [facility] MCV 103.0(H) 81.3 - 96.4 fL [facility] MCH 30.9 27.1 - 33.3 pg [facility] MCHC 30.0(L) 32.3 - 35.7 g/dL [facility] RDW CV 16.2(H) 11.1 - 14.9 % [facility] RDW SD 61.8(H) 35.7 - 48.1 fL [facility] NRBC abs 0.00 0.00 - 0.01 K/cumm [facility] Blood 08/25/2024 3:03 AM INFORMATION DIRECTOR 08/25/2024 4:15 AM INFORMATION DIRECTOR Bobby Ya MD LAB BLOOD ORDERABLES Final Result [facility] [address] Department of Laboratories [place] [id number] * Cytology (08/25/2024 12:00 AM INFORMATION DIRECTOR) Fluid (Pleura (Cytology)) 08/25/2024 08/25/2024 2:53 PM INFORMATION DIRECTOR Narrative PATHOLOGY - 08/27/2024 12:43 PM INFORMATION DIRECTOR EPIC results best viewed via link to PDF [facility] Department of Pathology [address] [place] [id number] Note to Patients: This report may [...] Final Report Patient Name: DORY NOBLE Address: [address] [place] [address] Gender: F : 1960 (Age: 63) Service: Medical Location: [facility] Hospital # [id number] Patient Type: [facility] Taken: 08/25/2024 Received: 08/25/2024 Accessioned: [...] determined by the Surgical Pathology Department at [facility] as part of an ongoing manufacturing quality engineer program and in compliance with [...] determined by the Surgical Pathology Department [facility]. It has not been cleared or approved by the U. S. Food and Drug Administration. Unless otherwise noted all cytology processing, staining and screening is performed at [facility] ([address] [place] [address]). REPORT IMAGES AND SCANNED DOCUMENTS, IF INCLUDED, ONLY VIEWABLE IN PDF VERSION OF REPORT us Charles Hendrickson MD LAB CYTOLOGY ORDERABLES [place] [address] * (ABNORMAL) Differential, auto (08/24/2024 4:34 AM INFORMATION DIRECTOR) Neutrophil abs 7.9(H) 1.5 - 6.5 K/cumm Imm gran abs 0.1 0.0 - 0.1 K/cumm [facility] Lymphocyte abs 0.6(L) 0.8 - 3.3 K/cumm [facility] Monocyte abs 1.3(H) 0.2 - 0.8 K/cumm [facility] Eosinophil abs 0.3 0.0 - 0.5 K/cumm [facility] Basophil abs 0.1 0.0 - 0.1 K/cumm [facility] Neutrophil pct 77.1 % [facility] Comment: Interpretive Data Percent cell count reference ranges are not reported, since discordance with absolute values may lead to misinterpretation of CBC data. Current Interpretive Data was last revised on 2017. Imm gran pct 1.4 % [facility] Comment: Interpretive Data Percent cell count reference ranges are not reported, since discordance with absolute values may lead to misinterpretation of CBC data. Current Interpretive Data was last revised on 2017. Lymphocyte pct 5.4 % [facility] Comment: Interpretive Data Percent cell count reference ranges are not reported, since discordance with absolute values may lead to misinterpretation of CBC data. Current Interpretive Data was last revised on 2017. Monocyte pct 12.6 % [facility] Comment: Interpretive Data Percent cell count reference ranges are not reported, since discordance with absolute values may lead to misinterpretation of CBC data. Current Interpretive Data was last revised on 2017. Eosinophil pct 2.9 % [facility] Comment: Interpretive Data Percent cell count reference ranges are not reported, since discordance with absolute values may lead to misinterpretation of CBC data. Current Interpretive Data was last revised on 2017. Basophil pct 0.6 % [facility] Comment: Interpretive Data Percent cell count reference ranges are not reported, since discordance with absolute values may lead to misinterpretation of CBC data. Current Interpretive Data was last revised on 2017. Blood 08/24/2024 4:34 AM INFORMATION DIRECTOR 08/24/2024 4:49 AM INFORMATION DIRECTOR us Bobby Ya MD LAB BLOOD ORDERABLES Final Result [facility] [address] Department [place] [address] * (ABNORMAL) CBC with auto differential (08/24/2024 4:34 AM INFORMATION DIRECTOR) Pathologist [facility] WBC 10.3(H) 3.8 - 9.9 K/cumm Hgb 7.0(L) 11.9 - 15.5 g/dL [facility] Hct 23.3(L) 35.6 - 45.5 % [facility] Plt 410(H) 150 - 400 K/cumm [facility] MPV 8.4(L) 9.1 - 12.3 fL [facility] RBC 2.24(L) 3.90 - 5.20 M/cumm [facility] MCV 104.0(H) 81.3 - 96.4 fL [facility] MCH 31.3 27.1 - 33.3 pg [facility] MCHC 30.0(L) 32.3 - 35.7 g/dL [facility] RDW CV 16.7(H) 11.1 - 14.9 % [facility] RDW SD 64.5(H) 35.7 - 48.1 fL [facility] NRBC abs 0.00 0.00 - 0.01 K/cumm [facility] Blood 08/24/2024 4:34 AM INFORMATION DIRECTOR 08/24/2024 4:49 AM INFORMATION DIRECTOR Bobby Ya MD LAB BLOOD ORDERABLES Final Result [facility] [address] Department [place] [address] * (ABNORMAL) eGFR (08/22/2024 9:54 AM INFORMATION DIRECTOR) [facility] eGFR 3(L) >=60 mL/min/1. 73 m2 Comment: [...] last reviewed 2021. Blood 08/22/2024 9:54 AM INFORMATION DIRECTOR 08/22/2024 10:37 AM INFORMATION DIRECTOR us Kala Barbosa NP LAB BLOOD ORDERABLES Final R esult [facility] [address] [place] [address] * (ABNORMAL) Differential, auto (08/22/2024 9:54 AM INFORMATION DIRECTOR) Neutrophil abs 9.3(H) 1.5 - 6.5 K/cumm Imm gran abs 0.2(H) 0.0 - 0.1 K/cumm [facility] Lymphocyte abs 0.7(L) 0.8 - 3.3 K/cumm [facility] Monocyte abs 1.2(H) 0.2 - 0.8 K/cumm [facility] Eosinophil abs 0.3 0.0 - 0.5 K/cumm [facility] Basophil abs 0.1 0.0 - 0.1 K/cumm [facility] Neutrophil pct 79.3 % [facility] Comment: Interpretive [...] revised on 2017. Monocyte pct 10.4 % [facility] Comment: Interpretive Data Percent cell count reference ranges are not reported, since discordance with absolute values may lead to misinterpretation of CBC data. Current Interpretive Data was last revised on 2017. Eosinophil pct 2.7 % [facility] Comment: Interpretive Data Percent cell count reference ranges are not reported, since discordance with absolute values may lead to misinterpretation of CBC data. Current Interpretive Data was last revised on 2017. Basophil pct 0.6 % [facility] Comment: Interpretive Data Percent cell count reference ranges are not reported, since discordance with absolute values may lead to misinterpretation of CBC data. Current Interpretive Data was last revised on 2017. Blood 08/22/2024 9:54 AM INFORMATION DIRECTOR 08/22/2024 10:36 AM INFORMATION DIRECTOR us Kala Barbosa NP LAB BLOOD ORDERABLES Final R esult [facility] [address] Department [place] [address] * (ABNORMAL) CBC with auto differential (08/22/2024 9:54 AM INFORMATION DIRECTOR) WBC 11.7(H) 3.8 - 9.9 K/cumm Hgb 7.4(L) 11.9 - 15.5 g/dL [facility] Hct 24.6(L) 35.6 - 45.5 % [facility] Plt 462(H) 150 - 400 K/cumm [facility] MPV 8.5(L) 9.1 - 12.3 fL [facility] RBC 2.37(L) 3.90 - 5.20 M/cumm [facility] MCV 103.8(H) 81.3 - 96.4 fL [facility] MCH 31.2 27.1 - 33.3 pg [facility] MCHC 30.1(L) 32.3 - 35.7 g/dL [facility] RDW CV 18.0(H) 11.1 - 14.9 % [facility] RDW SD 67.7(H) 35.7 - 48.1 fL [facility] NRBC abs 0.00 0.00 - 0.01 K/cumm [facility] Blood 08/22/2024 9:54 AM INFORMATION DIRECTOR 08/22/2024 10:36 AM INFORMATION DIRECTOR us Kala Santanasid [facility] LAB BLOOD ORDERABLES Final R esult [facility] [address] [place] [address] * (ABNORMAL) Comprehensive metabolic panel (08/22/2024 9:54 AM INFORMATION DIRECTOR) Sodium 137 135 - 145 mmol/L Potassium, [...] Units/L [facility] Blood 08/22/2024 9:54 AM INFORMATION DIRECTOR 08/22/2024 10:37 AM INFORMATION DIRECTOR Kala Barbosa NP LAB [place]LOOD [place] [address] [address] [place] [address] * (ABNORMAL) Urinalysis reflex to microscopic and culture Urine, clean voided (08/21/2024 6:01 PM INFORMATION DIRECTOR) Color, ur Mitzi Yellow Clarity, ur Turbid(A) [...] tendency for uric acid stone formation. Source: [facility] [employer] Current Interpretive Data was last revised on [...] CH Urine, clean voided 08/21/2024 6:01 PM INFORMATION DIRECTOR 08/21/2024 6:06 PM INFORMATION DIRECTOR Bobby Ya MD LAB MICROBIOLOGY - GENERAL ORDERABLES Final Result [facility] [address] [place] [address] * (ABNORMAL) Urinalysis, microscopic only (08/21/2024 6:01 PM INFORMATION DIRECTOR) WBC, ur >50(A) 0 - 5 /HPF RBC, ur >50(A) 0 - 2 /HPF [facility] Epithelial cells, squamous, ur 21-50(A) 0 - 5 /HPF [facility] Culture Reflex Comment Reflex to urine culture will be performed. [facility] Urine, clean voided 08/21/2024 6:01 PM INFORMATION DIRECTOR 08/21/2024 6:06 PM INFORMATION DIRECTOR Bobby Ya MD LAB URINE ORDERABLES Final Result Performing Organization Address [facility]/ZIP Co de Phone Number [facility] [place] [address] [employer] [place] [id number] * Urine culture Urine, clean voided (08/21/2024 6:01 PM INFORMATION DIRECTOR) Report Final Report: Less than 100,000 colonies/mL (clinically insignificant growth based on current clinical standards) Comment:Testing performed by : [facility], [address] [place]., [address] Organism (CLINICALLY INSIGNIFICANT [facility] Urine, clean voided 08/21/2024 6:01 PM INFORMATION DIRECTOR 08/21/2024 8:14 PM INFORMATION DIRECTOR Narrative [facility] - 08/23/2024 7:20 AM INFORMATION DIRECTOR Urine culture reflexed based upon urinalysis results. Testing performed by [facility] Microbiology Laboratory ([phone]) Bobby Ya MD LAB MICROBIOLOGY - GENERAL ORDERABLES Final Result Performing Organization Address City/[facility]/ZIP Co de Phone Number [place] [id number] [place] [employer] [place] [address] * CT Chest Abdomen Pelvis WO Contrast (08/21/2024 4:56 PM INFORMATION DIRECTOR) Anatomical Region Laterality Modality Body N/A Computed Tomogra phy 08/21/2024 5:31 PM INFORMATION DIRECTOR Impressions 08/22/2024 2:24 PM INFORMATION DIRECTOR Moderate loculated left pleural effusion with left [...] Priscila Ochoa M.D. Narrative 08/22/2024 2:24 PM INFORMATION DIRECTOR EXAM: CT CHEST, ABDOMEN AND PELVIS WITHOUT [...] noted without pericardial effusion..Atherosclerotic nonaneurysmal aorta with anpo-hy-wfhihhhy calcified plaque and mild aortic valvular calcification [...] noted without pericardial effusion..Atherosclerotic nonaneurysmal aorta with [id number] calcified plaque and mild aortic valvular calcification [...] Iron profile w/ IBC (08/21/2024 7:44 AM INFORMATION DIRECTOR) Pathologist [facility] [place] Iron 164(H) 35 - 145 mcg/dl TIBC 254 250 - 400 mcg/dL [facility] Transferrin saturation 65(H) 20 - 50 % [facility] Blood 08/21/2024 7:44 AM INFORMATION DIRECTOR 08/21/2024 9:19 AM INFORMATION DIRECTOR us Kala Barbosa NP LAB BLOOD ORDERABLES Final R esult [place] [address] Department [place] [address] * Blood culture Blood (08/21/2024 7:44 AM INFORMATION DIRECTOR) Report Final Report: No growth Comment:Testing performed by : [facility], [address] [facility] [place]., [address] Blood 08/21/2024 7:44 AM INFORMATION DIRECTOR 08/21/2024 12:57 PM INFORMATION DIRECTOR Narrative [facility] [place] - 08/25/2024 4:00 PM INFORMATION DIRECTOR From a different site than #1. Collection->Peripheral [...] characteristics have been verified by the [facility] Microbiology Laboratory. For questions about this culture, contact the Microbiology Laboratory at [phone]. Interpretive data was last revised on 24. Kala Barbosa NP LAB MICROBIOLOGY - GENERAL O RDERABLES Final Result [place] [address] [place] [address] * Blood culture Blood (08/21/2024 7:44 AM INFORMATION DIRECTOR) Report Final Report: No growth Comment:Testing performed by : [facility], [address] [facility] [place]., [address] Blood 08/21/2024 7:44 AM INFORMATION DIRECTOR 08/21/2024 12:57 PM INFORMATION DIRECTOR Narrative [facility] [place] - 08/25/2024 4:00 PM INFORMATION DIRECTOR Collection->Peripheral 1. Blood cultures are incubated for [...] characteristics have been verified by the [facility] Microbiology Laboratory. For questions about this culture, contact the Microbiology Laboratory at [phone]. Interpretive data was last revised on 24. Kala Barbosa NP LAB MICROBIOLOGY - GENERAL O RDERABLES Final Result Performing Organization Address City/[facility]/ZIP Co de Phone Number [place] [address] [place] [employer] [place] [address] * Folate (08/21/2024 7:44 AM INFORMATION DIRECTOR) Folic acid >20.0 >=5.0 ng/mL Comment:Hemolysis present. R esults may be affected. Blood 08/21/2024 7:44 AM INFORMATION DIRECTOR 08/21/2024 9:19 AM INFORMATION DIRECTOR Kala Barbosa NP LAB BLOOD ORDERABLES Final R esult Performing Organization Address City/[facility]/ZIP Co de Phone Number [place] [address] [facility] [employer] [place], [place] [id number] * (ABNORMAL) Vitamin B12 (08/21/2024 7:44 AM INFORMATION DIRECTOR) Vitamin B12 1,704(H) 230 - 1,250 pg/mL Blood 08/21/2024 7:44 AM INFORMATION DIRECTOR 08/21/2024 9:19 AM INFORMATION DIRECTOR Rhiannondon Familia WOODALL LAB BLOOD ORDERABLES Final R esult Performing Organization Address [facility]/[place]UST Co de Phone Number [place] [address] [place] [place] [address] * (ABNORMAL) eGFR (08/21/2024 2:52 AM INFORMATION DIRECTOR) eGFR 4(L) >=60 mL/min/1. 73 m2 Comment: [...] last reviewed 2021. Blood 08/21/2024 2:52 AM INFORMATION DIRECTOR 08/21/2024 3:17 AM INFORMATION DIRECTOR Kala Barbosa NP LAB BLOOD ORDERABLES Final R esult Performing Organization Address City/[facility]/ZIP Co de Phone Number [place] [address] [place] [place] [address] * (ABNORMAL) Differential, auto (08/21/2024 2:52 AM INFORMATION DIRECTOR) Neutrophil abs 9.6(H) 1.5 - 6.5 K/cumm Imm gran abs 0.2(H) 0.0 - 0.1 K/cumm [facility] Lymphocyte abs 1.0 0.8 - 3.3 K/cumm [facility] Monocyte abs 1.4(H) 0.2 - 0.8 K/cumm [facility] Eosinophil abs 0.3 0.0 - 0.5 K/cumm [facility] Basophil abs 0.1 0.0 - 0.1 K/cumm [facility] Neutrophil pct 76.2 % [facility] Comment: Interpretive Data Percent cell count reference ranges are not reported, since discordance with absolute values may lead to misinterpretation of CBC data. Current Interpretive Data was last revised on 2017. Imm gran pct 1.4 % [facility] Comment: Interpretive Data Percent cell count reference ranges are not reported, since discordance with absolute values may lead to misinterpretation of CBC data. Current Interpretive Data was last revised on 2017. Lymphocyte pct 8.2 % [facility] Comment: Interpretive Data Percent cell count reference ranges are not reported, since discordance with absolute values may lead to misinterpretation of CBC data. Current Interpretive Data was last revised on 2017. Monocyte pct 11.4 % [facility] Comment: Interpretive Data Percent cell count reference ranges are not reported, since discordance with absolute values may lead to misinterpretation of CBC data. Current Interpretive Data was last revised on 2017. Eosinophil pct 2.1 % [facility] Comment: Interpretive Data Percent cell count reference ranges are not reported, since discordance with absolute values may lead to misinterpretation of CBC data. Current Interpretive Data was last revised on 2017. Basophil pct 0.7 % [facility] Comment: Interpretive Data Percent cell count reference ranges are not reported, since discordance with absolute values may lead to misinterpretation of CBC data. Current Interpretive Data was last revised on 2017. Blood 08/21/2024 2:52 AM INFORMATION DIRECTOR 08/21/2024 3:18 AM INFORMATION DIRECTOR us Kala Barbosa NP LAB BLOOD ORDERABLES Final R esult [place] [address] Department of Laboratories [place] [id number] * (ABNORMAL) CBC with auto differential (08/21/2024 2:52 AM INFORMATION DIRECTOR) WBC 12.6(H) 3.8 - 9.9 K/cumm Hgb [...] K/cumm [facility] Blood 08/21/2024 2:52 AM INFORMATION DIRECTOR 08/21/2024 3:18 AM INFORMATION DIRECTOR us Kala Barbosa NP LAB BLOOD ORDERABLES Final R esult [facility] [address] [place] [address] * (ABNORMAL) Comprehensive metabolic panel (08/21/2024 2:52 AM INFORMATION DIRECTOR) Sodium 136 135 - 145 mmol/L Potassium, [...] Units/L [facility] Blood 08/21/2024 2:52 AM INFORMATION DIRECTOR 08/21/2024 3:17 AM INFORMATION DIRECTOR Kala Barbosa NP LAB BLOOD ORDERABLES Final R esult [facility] [address] [place] [address] * XR Chest 1 Vw Portable (08/21/2024 1:09 AM INFORMATION DIRECTOR) Anatomical Region Laterality Modality Body, Chest N/A Computed Radiogr aphy 08/21/2024 8:04 AM INFORMATION DIRECTOR Impressions 08/21/2024 8:04 AM INFORMATION DIRECTOR CARDIOMEGALY WITH CONSOLIDATING OPACITY IN THE LEFT BASE AND HAZY OPACITY IN THE RIGHT BASE WITH FLUID IN THE FISSURE. A LATERAL CHEST VIEW OR CT OF THE CHEST IS SUGGESTED TO EVALUATE THE LUNG BASES. Electronically signed by: Sulaiman Xie M.D. Narrative 08/21/2024 8:04 AM INFORMATION DIRECTOR EXAMINATION: XR CHEST 1 VIEW HISTORY: Elevated [...] signed by: Sulaiman Xie M.D. Susan Salcedo SIGNALS COLLECTOR/ANALYST IMG XR PROCEDURES Fi nal Result * (ABNORMAL) Potassium, whole blood (08/21/2024 12:48 AM INFORMATION DIRECTOR) Potassium, bld 3.1(L) 3.3 - 4.9 mmol/L Comment: Interpretive Data This method is not able to assess for hemolysis, which may falsely increase potassium concentrations. If further testing is needed to evaluate this result, consider in-laboratory plasma potassium. Current Interpretive Data was last revised on 2022. Blood 08/21/2024 12:4 8 AM INFORMATION DIRECTOR 08/21/2024 12:59 AM INFORMATION DIRECTOR Susan Salcedo NP LAB BLOOD ORDERABLES Final Result [place] [address] [place] [address] * (ABNORMAL) Hemoglobin and hematocrit (08/21/2024 12:48 AM INFORMATION DIRECTOR) Hgb 7.2(L) 11.9 - 15.5 g/dL Hct 23.7(L) 35.6 - 45.5 % [facility] Blood 08/21/2024 12:4 8 AM INFORMATION DIRECTOR 08/21/2024 1:00 AM INFORMATION DIRECTOR us Susan Salcedo NP LAB BLOOD ORDERABLES Final Result [facility] [place] [address] [place] [address] from Last 3 Months Insurance [facility] MEDICARE [facility] Address: [address] [address] [place] [address] [employer] MEDICARE [facility] Address: [address] [address] [place] [address] [place] [address] Advance Directives For more information, please contact: [phone] * Full Code (Latest Code Status on File) Date Activated Date Inactivated Comments 08/21/2024 2:16 AM 08/26/2024 10:55 PM * Full Code Date Activated Date Inactivated Comments 07/25/2024 6:59 PM 08/04/2024 7:42 PM * Full Code Date Activated Date Inactivated Comments 07/21/2024 6:30 PM 07/25/2024 6:50 PM Care Teams Tooling Supervisor Relationship Specialty Start Date End Date Porsche Becker NP [address] [place] [address] PCP - General Nurse Practitioner 08/19/24 Mookie Dubois MD Referring Physician Nephrology 02/20/22 Jama Hoskins MD [address] [address] Consulting Physician Cardiology 02/20/24
--- OUTSIDE RECORDS SUMMARY | 2024-11-18 15:03 | XMS_ITS | Clinical Summary ---
Author Organization [facility] [email or web address] Address [address] [place] [address] Care Team Providers Care Informatics Analyst Name Role Phone Unavailable Primary Care Provider Unavailabl e Source Comments [facility] [email or web address],non-owned Affiliates and Associated Physician Practices is amultiple site organization consisting of ambulatory clinics and hospital sitesin [place], [place], [place] and [place]. This disclosure is being madepursuant to the Care Everywhere program and may not contain all information available regarding this patient. 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
--- OUTSIDE RECORDS SUMMARY | 2024-11-18 15:03 | XMS_ITS | Referral Summary ---
Author Organization [address] Address [address] [place] [address] Care Team Providers Care Building Maintenance Supervisor Name Role Phone Mookie Dubois MD Unavailable [phone] Jama Hoskins MD Unavailable [phone] Porsche Becker NP Primary Care Provider [phone] Encounters Date Type Department Care Team Description 11/11/2024 Telephone [facility] Cardiology [address] [facility] [address] [place] [address] Jama Hoskins MD 10/10/2024 Telephone [facility] Transplant Kidney [address] [facility] [address] Mailstop [phone] [place] [address] Abigail Dougherty RN 10/10/2024 2:30 PM CDT Office Visit [facility] Cardiology [address] [facility] [address] [place] [address] Lydia Lewis NP Need for lipid screening (Primary Dx); Hypotension due to hypovolemia; Persistent atrial fibrillation (HCC); Chronic anticoagulation; Preoperative cardiovascular examination 09/30/2024 Telephone [facility] Cardiology [address] [facility] [address] [place] [address] Jama Hoskins MD 09/05/2024 Telephone [facility] Cardiology [address] [place] [phone] Jama Hoskins MD 09/03/2024 Telephone [facility] Transplant Kidney [address] [facility] [address] [facility] [address] Mailstop [id number] [place] [address] Abigail Dougherty RN 08/28/2024 Home Care Visit [facility] Home Health - [address] [place] [address] Lillian Campuzano, MARILEE PT VIRTUAL NON OASIS DISCHARGE 08/20/2024 7:40 PM RADIO COMMENTATOR - 08/26/2024 6:54 PM RADIO COMMENTATOR Hospital Encounter [facility] [address] [place] [address] Mike Connell MD Myla, Lathamanjari, MD Anemia due to chronic kidney disease, on chronic dialysis (HCC) (Primary Dx) Discharge Disposition: Discharge to home or self care from Last 3 Months Allergies Active Allergy [...] materials from doctor or pharmacy Sometimes 08/07/2024 [facility] Utilities Answer Date Recorded In the past 12 months has th e [employer], gas, oil, or water [employer] threatened to shut off services in your [...] often do you attend chur ch or jehovah's witness services? Patient declined 07/26/2024 Do you belong to any clubs o r organizations such as rastafarian groups, unions, fraternal or athletic groups, or [...] staff should administer the PHQ-9) 0 08/21/2024 [facility] - Occupational Stress [...] time in the past [address] [facility], were you homeless or living in a care home (including now)? No 07/26/2024 Personal Safety Answer Date Recorded Have you ever been in or are you currently in a harmful physical or emotional relationship or is someone making you feel afraid or unsafe? Denies 08/21/2024 Comments Unknown Sex and Gender Information Value Date Recorded Sex Assigned at Not on file 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 RADIO COMMENTATOR Gender Identity Not on file Sexual Orientation Not on file Last Filed Vital Signs Vital Sign Reading Time Taken Comments Blood Pressure 80/58 10/10/2024 2:37 PM CDT Pulse 117 10/10/2024 2:37 PM CDT Temperature 36.8 C (98.3 F) 08/26/2024 3:53 PM RADIO COMMENTATOR Respiratory Rate 18 08/26/2024 3:53 PM RADIO COMMENTATOR Oxygen Saturation 97% 10/10/2024 2:37 PM CDT Inhaled Oxygen Concentration - - Weight 88.5 kg (195 lb) 10/10/2024 2:37 PM CDT Height 152.4 cm (5') 10/10/2024 2:37 PM CDT Body Mass Index 38.08 10/10/2024 2:37 PM CDT Plan of Treatment Not on file Medical Devices Implanted Type Area Shove Up Device Identifier Shelf Expiration Date Model / Serial / Lot Dental Implant Other - see comments Description:Upper [employer] [place] 15fr 62cm 2 Cuff Radiopaque Peritoneal Curl Catheter [id number] - [id number] Implanted:Qty: 1 on 04/03/2022 by Sulaiman Hi MD at [facility] Left: Abdomen [employer] 10/16/2026 [id number] / / [id number] Procedures Procedure Name Priority Date/Time Associated Diagnosis Comments POCT LIPID PANEL Routine 10/10/2024 4:22 PM CDT Need for lipid screening ELECTROCARDIOGRAM REPORT Routine 10/10/2024 4:08 PM CDT Persistent atrial fibrillation (HCC) DIFFERENTIAL AUTO Routine 08/26/2024 2:3 6 AM RADIO COMMENTATOR CBC WITH AUTO DIFFERENTIAL Routine 08/26/2024 2:36 AM RADIO COMMENTATOR CONTINUOUS CYCLIC PERITONEAL DIALYSIS (CCPD) Routine 08/26/2024 12:31 AM RADIO COMMENTATOR XR CHEST 1 VIEW IP Routine 08/25/2024 3:10 PM RADIO COMMENTATOR CELL DIFFERENTIAL, BODY FLUID Routine 08/25/2024 2:32 PM RADIO COMMENTATOR AMYLASE, BODY FLUID Routine 08/25/2024 2 :32 PM RADIO COMMENTATOR CELL COUNT W/REFLEX DIFFERENTIAL, BODY FLUID Routine 08/25/2024 2:32 PM RADIO COMMENTATOR GLUCOSE, BODY FLUID Routine 08/25/2024 2 :32 PM RADIO COMMENTATOR LACTATE DEHYDROGENASE, BODY FLUID Routine 08/25/2024 2:32 PM RADIO COMMENTATOR PROTEIN, BODY FLUID Routine 08/25/2024 2 :32 PM RADIO COMMENTATOR XR CHEST PA LATERAL 2 VIEWS IP Routine 08/25/2024 8:27 AM RADIO COMMENTATOR DIFFERENTIAL AUTO Routine 08/25/2024 3:0 3 AM RADIO COMMENTATOR CBC WITH AUTO DIFFERENTIAL Routine 08/25/2024 3:03 AM RADIO COMMENTATOR CYTOLOGY Routine 08/25/2024 12:00 AM RADIO COMMENTATOR DIFFERENTIAL AUTO Routine 08/24/2024 4:3 4 AM RADIO COMMENTATOR CBC WITH AUTO DIFFERENTIAL Routine 08/24/2024 4:34 AM RADIO COMMENTATOR EGFR Routine 08/22/2024 9:54 AM RADIO COMMENTATOR DIFFERENTIAL AUTO Routine 08/22/2024 9:5 4 AM RADIO COMMENTATOR COMPREHENSIVE METABOLIC PANEL Routine 08/22/2024 9:54 AM RADIO COMMENTATOR CBC WITH AUTO DIFFERENTIAL Routine 08/22/2024 9:54 AM RADIO COMMENTATOR URINALYSIS, MICROSCOPIC ONLY Routine 08/21/2024 6:01 PM RADIO COMMENTATOR URINE CULTURE Routine 08/21/2024 6:01 PM RADIO COMMENTATOR URINALYSIS AND REFLEX TO MICROSCOPIC AND CULTURE Routine 08/21/2024 6:[address] CHEST ABDOMEN PELVIS WO CONTRAST ED Urgent/IP Urgent 08/21/2024 4:56 PM RADIO COMMENTATOR VITAMIN B12 Routine 08/21/2024 7:44 AM RADIO COMMENTATOR FOLATE Routine 08/21/2024 7:44 AM RADIO COMMENTATOR IRON PROFILE W/ IBC Routine 08/21/2024 7 :44 AM RADIO COMMENTATOR BLOOD CULTURE Routine 08/21/2024 7:44 AM RADIO COMMENTATOR BLOOD CULTURE Routine 08/21/2024 7:44 AM RADIO COMMENTATOR EGFR Routine 08/21/2024 2:52 AM RADIO COMMENTATOR DIFFERENTIAL AUTO Routine 08/21/2024 2:5 2 AM RADIO COMMENTATOR COMPREHENSIVE METABOLIC PANEL Routine 08/21/2024 2:52 AM RADIO COMMENTATOR CBC WITH AUTO DIFFERENTIAL Routine 08/21/2024 2:52 AM RADIO COMMENTATOR XR CHEST 1 VIEW ED 08/21/2024 1:09 AM RADIO COMMENTATOR POTASSIUM, WHOLE BLOOD Timed 12:48 AM RADIO COMMENTATOR HEMOGLOBIN AND HEMATOCRIT Timed 08/21/2024 12:48 AM RADIO COMMENTATOR from Last 3 Months Results * POCT [...] * (ABNORMAL) Differential, auto (08/26/2024 2:36 AM RADIO COMMENTATOR) Neutrophil abs 7.6(H) 1.5 - 6.5 K/cumm Imm gran abs 0.1 0.0 - 0.1 K/cumm [facility] Lymphocyte abs 0.6(L) 0.8 - 3.3 K/cumm [facility] Monocyte abs 1.3(H) 0.2 - 0.8 K/cumm [facility] Eosinophil abs 0.2 0.0 - 0.5 K/cumm [facility] Basophil abs 0.1 0.0 - 0.1 K/cumm [facility] Neutrophil pct 77.1 % [facility] Comment: Interpretive Data Percent cell count reference ranges are not reported, since discordance with absolute values may lead to misinterpretation of CBC data. Current Interpretive Data was last revised on 2017. Imm gran pct 1.3 % [facility] Comment: Interpretive Data Percent cell count reference ranges are not reported, since discordance with absolute values may lead to misinterpretation of CBC data. Current Interpretive Data was last revised on 2017. Lymphocyte pct 5.7 % [facility] Comment: Interpretive Data Percent cell count reference ranges are not reported, since discordance with absolute values may lead to misinterpretation of CBC data. Current Interpretive Data was last revised on 2017. Monocyte pct 13.0 % [facility] Comment: Interpretive Data Percent cell count reference ranges are not reported, since discordance with absolute values may lead to misinterpretation of CBC data. Current Interpretive Data was last revised on 2017. Eosinophil pct 2.3 % [facility] Comment: Interpretive Data Percent cell count reference ranges are not reported, since discordance with absolute values may lead to misinterpretation of CBC data. Current Interpretive Data was last revised on 2017. Basophil pct 0.6 % [facility] Comment: Interpretive Data Percent cell count reference ranges are not reported, since discordance with absolute values may lead to misinterpretation of CBC data. Current Interpretive Data was last revised on 2017. Blood 08/26/2024 2:36 AM RADIO COMMENTATOR 08/26/2024 4:06 AM RADIO COMMENTATOR us Bobby Ya MD LAB BLOOD ORDERABLES Final Result [facility] [address] Department [place] [address] * (ABNORMAL) CBC with auto differential (08/26/2024 2:36 AM RADIO COMMENTATOR) WBC 9.9 3.8 - 9.9 K/cumm Hgb [...] SD 58.7(H) 35.7 - 48.1 fL [facility] NRBC abs 0.00 0.00 - 0.01 K/cumm [facility] Blood 08/26/2024 2:36 AM RADIO COMMENTATOR 08/26/2024 4:06 AM RADIO COMMENTATOR Bobby Ya MD LAB BLOOD ORDERABLES Final Result [facility] [address] Department [place] [address] * XR Chest 1 Vw Portable (08/25/2024 3:10 PM RADIO COMMENTATOR) Anatomical Region Laterality Modality Body, Chest N/A Computed Radiogr aphy 08/25/2024 3:29 PM RADIO COMMENTATOR Impressions 08/25/2024 3:29 PM RADIO COMMENTATOR FINDINGS/IMPRESSION: Small bilateral pleural effusions. No consolidation. Borderline cardiomegaly. No acute osseous abnormality. Electronically signed by: Peter Porter II, D.O. Narrative 08/25/2024 3:29 PM RADIO COMMENTATOR EXAMINATION: XR CHEST 1 VIEW DATE: 08/25/2024 [...] Cell Differential, Body Fluid (08/25/2024 2:32 PM RADIO COMMENTATOR) Total cells diffed 82 % Comment: Interpretive [...] % [facility] Fluid 08/25/2024 2:32 PM RADIO COMMENTATOR 08/25/2024 2:32 PM RADIO COMMENTATOR us Charles Hendrickson MD LAB BODY FLUIDS AND STO OLS ORDERABLES Final Result [facility] [address] Department [place] [address] * Cell count w/rflx diff, body fluid (08/25/2024 2:32 PM RADIO COMMENTATOR) Specimen type, fld Pleural Body site, fld [...] revised on 2019. RBC, fld 9,000 /cumm [facility] Fluid 08/25/2024 2:32 PM RADIO COMMENTATOR 08/25/2024 2:32 PM RADIO COMMENTATOR us Charles Hendrickson MD LAB BODY FLUIDS AND STO OLS ORDERABLES Final Result Performing Organization Address [facility]/ZIP Co de Phone Number [facility] [address] Department [place] [address] * Protein, body fluid (08/25/2024 2:32 PM RADIO COMMENTATOR) Specimen type, fld Pleural Comment:Testing performed by : [facility], [address] [place]., [address] Body site, fld Pleural fluid, left [facility] Comment:Testing performed by : [facility], [address] [place] [address]., [address] Protein, fld 3.5 g/dL [facility] Comment: The above specimen type is not [...] was last revised 2019. Testing performed by: [facility], [address] [place]., [address] Fluid 08/25/2024 2:32 PM RADIO COMMENTATOR 08/25/2024 5:52 PM RADIO COMMENTATOR Charles Hendrickson MD LAB BODY FLUIDS AND STO OLS ORDERABLES Final Result Performing Organization Address City/[facility]/ZIP Co de Phone Number [facility] [address] Department of [employer] [place] [address] * Lactate dehydrogenase, body fluid (08/25/2024 2:32 PM RADIO COMMENTATOR) Specimen type, fld Pleural Comment:Testing performed by : [facility], [address] [place]., [address] Body site, fld Pleural fluid, left [facility] Comment:Testing performed by : [facility], [address] [place]., [address] LD, fld 151 Units/L [facility] Comment: The [...] was last revised 2019. Testing performed by: [facility], [address] [place]., [address] Fluid 08/25/2024 2:32 PM RADIO COMMENTATOR 08/25/2024 5:52 PM RADIO COMMENTATOR Charles Hendrickson MD LAB BODY FLUIDS AND STO OLS ORDERABLES Final Result [facility] [address] Department of [employer] [place] [address] * Glucose, body fluid (08/25/2024 2:32 PM RADIO COMMENTATOR) Specimen type, fld Pleural Comment:Testing performed by : [facility], [address] [place]., [address] Body site, fld Pleural fluid, left [facility] Comment:Testing performed by : [facility], [address] [facility], [place]., [address] Glucose, fld 109 mg/dL [facility] Comment: [...] and Management. Meir Clin J Med 2005;72:854-72. [employer] Test directory, Body Fluid Reference Intervals and/or Interpretative Information. [email or web address] Danika COUCH et al. Pancreatic cyst fluid glucose: rapid, inexpensive, and accurate diagnosis of mucinous pancreatic cysts. Surgery 2018;163:600-5. Mohsen DG et al. Differential diagnosis of pancreatic cysts: A prospective study on the role of intra-cystic glucose concentration. Digestive Liver Dis 2020;52:1026-32. Current Interpretive Data was last revised 2021. Testing performed by: [facility], [address] [facility], [place]., [address] Fluid 08/25/2024 2:32 PM RADIO COMMENTATOR 08/25/2024 5:52 PM RADIO COMMENTATOR Narrative [facility] [place] - 08/25/2024 7:28 PM RADIO COMMENTATOR Body Fluid Type->Pleural Charles Hendrickson MD LAB BODY FLUIDS AND STO OLS ORDERABLES Final Result Performing Organization Address [facility]/ZIP Co de Phone Number [facility] [place] [address] Department [email or web address] [address] * Amylase, body fluid (08/25/2024 2:32 PM RADIO COMMENTATOR) Specimen type, fld Pleural fluid, left Comment:Testing performed by : [facility], [address] [place]., [address] Amylase, fld <30 Units/L [facility] [place] Comment: [...] 2018. Chapter 43, Body Fluids, p. 925 [employer] Test directory, Body Fluid Reference Intervals and/or Interpretative Information. [email or web address] Current Interpretive Data was last revised 2019. Testing performed by: [facility], [address] [place]., [address] Fluid 08/25/2024 2:32 PM RADIO COMMENTATOR 08/25/2024 5:52 PM RADIO COMMENTATOR us Charles Hendrickson MD LAB BODY FLUIDS AND STO OLS ORDERABLES Final Result Performing Organization Address [facility] Co de Phone Number [facility] [place] [address] Department [email or web address] [address] * XR Chest PA Lateral 2 Views (08/25/2024 8:27 AM RADIO COMMENTATOR) Anatomical Region Laterality Modality Body, Chest N/A Computed Radiogr aphy 08/25/2024 8:52 AM RADIO COMMENTATOR Impressions 08/25/2024 8:52 AM RADIO COMMENTATOR PERSISTENT PLEURAL EFFUSIONS LARGER ON THE LEFT THAN THE RIGHT. MILD FLUID OVERLOAD Electronically signed by: Bryant Alvarez M.D. Narrative 08/25/2024 8:52 AM RADIO COMMENTATOR EXAMINATION: XR CHEST PA LATERAL 2 VIEWS [...] * (ABNORMAL) Differential, auto (08/25/2024 3:03 AM RADIO COMMENTATOR) Neutrophil abs 7.4(H) 1.5 - 6.5 K/cumm [...] 2017. Imm gran pct 1.0 % [facility] Comment: Interpretive Data Percent cell count reference ranges are not reported, since discordance with absolute values may lead to misinterpretation of CBC data. Current Interpretive Data was last revised on 2017. Lymphocyte pct 6.6 % [facility] Comment: Interpretive Data Percent cell count reference ranges are not reported, since discordance with absolute values may lead to misinterpretation of CBC data. Current Interpretive Data was last revised on 2017. Monocyte pct 13.3 % [facility] Comment: Interpretive Data Percent cell count reference ranges are not reported, since discordance with absolute values may lead to misinterpretation of CBC data. Current Interpretive Data was last revised on 2017. Eosinophil pct 2.7 % [facility] Comment: Interpretive Data Percent cell count reference ranges are not reported, since discordance with absolute values may lead to misinterpretation of CBC data. Current Interpretive Data was last revised on 2017. Basophil pct 0.6 % [facility] Comment: Interpretive Data Percent cell count reference ranges are not reported, since discordance with absolute values may lead to misinterpretation of CBC data. Current Interpretive Data was last revised on 2017. Blood 08/25/2024 3:03 AM RADIO COMMENTATOR 08/25/2024 4:15 AM RADIO COMMENTATOR Bobby Ya MD LAB BLOOD ORDERABLES Final Result [facility] [address] Department [place] [address] * (ABNORMAL) CBC with auto differential (08/25/2024 3:03 AM RADIO COMMENTATOR) WBC 9.8 3.8 - 9.9 K/cumm Hgb 7.3(L) 11.9 - 15.5 g/dL [facility] Hct 24.3(L) 35.6 - 45.5 % [facility] Plt 424(H) 150 - 400 K/cumm [facility] MPV 8.6(L) 9.1 - 12.3 fL [facility] RBC 2.36(L) 3.90 - 5.20 M/cumm [facility] MCV 103.0(H) 81.3 - 96.4 fL [facility] MCH 30.9 27.1 - 33.3 pg [facility] MCHC 30.0(L) 32.3 - 35.7 g/dL [facility] RDW CV 16.2(H) 11.1 - 14.9 % [facility] RDW SD 61.8(H) 35.7 - 48.1 fL [facility] NRBC abs 0.00 0.00 - 0.01 K/cumm [facility] Blood 08/25/2024 3:03 AM RADIO COMMENTATOR 08/25/2024 4:15 AM RADIO COMMENTATOR Bobby Ya MD LAB BLOOD ORDERABLES Final Result [address] Department of Laboratories [place], [place] [id number] * Cytology (08/25/2024 12:00 AM RADIO COMMENTATOR) Fluid (Pleura (Cytology)) 08/25/2024 08/25/2024 2:53 PM RADIO COMMENTATOR Narrative PATHOLOGY - 08/27/2024 12:43 PM RADIO COMMENTATOR EPIC results best viewed via link to PDF [facility] Department of Pathology [address] [place] [address] Note to Patients: This report may [...] Final Report Patient Name: DORY NOBLE Address: [address] [place] [address] Gender: F : 1960 (Age: 63) Service: Medical Location: [facility] # [id number] Patient Type: [facility] Taken: 08/25/2024 Received: 08/25/2024 Accessioned: 08/25/2024 Reported: 08/27/2024 Physician(s): Sourav Gonzáles NP Diagnosis: Pleural fluid, left, cytology: - Negative for malignancy. Olaronke A. Akintola-Ogunremi, M.D. Report Electronically Reviewed and Signed Out [...] determined by the Surgical Pathology Department at [facility] as part of an ongoing quality tech program and in compliance with federally [...] characteristics determined by the Surgical Pathology Department [facility]. It has not been cleared or approved by the U. S. Food and Drug Administration. Unless otherwise noted all cytology processing, staining and screening is performed at [facility] ([address] [place] [address]). REPORT IMAGES AND SCANNED DOCUMENTS, IF INCLUDED, ONLY VIEWABLE IN PDF VERSION OF REPORT Charles Hendrickson MD LAB [place]OLOGY [place] [address] [place] [address] * (ABNORMAL) Differential, auto (08/24/2024 4:34 AM RADIO COMMENTATOR) Neutrophil abs 7.9(H) 1.5 - 6.5 K/cumm [...] revised on 2017. Blood 08/24/2024 4:34 AM RADIO COMMENTATOR 08/24/2024 4:49 AM RADIO COMMENTATOR Bobby Ya MD LAB BLOOD ORDERABLES Final Result [facility] [address] Department [employer] [place] [address] * (ABNORMAL) CBC with auto differential (08/24/2024 4:34 AM RADIO COMMENTATOR) Pathologist [facility] WBC 10.3(H) 3.8 - 9.9 K/cumm Hgb [...] RDW SD 64.5(H) 35.7 - 48.1 fL [facility] NRBC abs 0.00 0.00 - 0.01 K/cumm [facility] Blood 08/24/2024 4:34 AM RADIO COMMENTATOR 08/24/2024 4:49 AM RADIO COMMENTATOR Bobby Ya MD LAB BLOOD ORDERABLES Final Result [facility] [place] [address] Department of [employer] [place] [address] * (ABNORMAL) eGFR (08/22/2024 9:54 AM RADIO COMMENTATOR) Pathologist [facility] eGFR 3(L) >=60 mL/min/1. 73 m2 Comment: [...] last reviewed 2021. Blood 08/22/2024 9:54 AM RADIO COMMENTATOR 08/22/2024 10:37 AM RADIO COMMENTATOR us Kala Barbosa NP LAB BLOOD ORDERABLES Final R esult [facility] [address] Department [place] [address] * (ABNORMAL) Differential, auto (08/22/2024 9:54 AM RADIO COMMENTATOR) Pathologist [facility] Neutrophil abs 9.3(H) 1.5 - 6.5 K/cumm Imm gran abs 0.2(H) 0.0 - 0.1 K/cumm [facility] Lymphocyte abs 0.7(L) 0.8 - 3.3 K/cumm [facility] Monocyte abs 1.2(H) 0.2 - 0.8 K/cumm [facility] Eosinophil abs 0.3 0.0 - 0.5 K/cumm [facility] Basophil abs 0.1 0.0 - 0.1 K/cumm [facility] Neutrophil pct 79.3 % [facility] Comment: Interpretive Data Percent cell count reference ranges are not reported, since discordance with absolute values may lead to misinterpretation of CBC data. Current Interpretive Data was last revised on 2017. Imm gran pct 1.3 % [facility] Comment: Interpretive Data Percent cell count reference ranges are not reported, since discordance with absolute values may lead to misinterpretation of CBC data. Current Interpretive Data was last revised on 2017. Lymphocyte pct 5.7 % [facility] Comment: Interpretive Data Percent cell count reference ranges are not reported, since discordance with absolute values may lead to misinterpretation of CBC data. Current Interpretive Data was last revised on 2017. Monocyte pct 10.4 % [facility] Comment: Interpretive Data Percent cell count reference ranges are not reported, since discordance with absolute values may lead to misinterpretation of CBC data. Current Interpretive Data was last revised on 2017. Eosinophil pct 2.7 % [facility] Comment: Interpretive Data Percent cell count reference ranges are not reported, since discordance with absolute values may lead to misinterpretation of CBC data. Current Interpretive Data was last revised on 2017. Basophil pct 0.6 % [facility] Comment: Interpretive Data Percent cell count reference ranges are not reported, since discordance with absolute values may lead to misinterpretation of CBC data. Current Interpretive Data was last revised on 2017. Blood 08/22/2024 9:54 AM RADIO COMMENTATOR 08/22/2024 10:36 AM RADIO COMMENTATOR us Kala Barbosa NP LAB BLOOD ORDERABLES Final R esult [facility] [address] Department [place] [address] * (ABNORMAL) CBC with auto differential (08/22/2024 9:54 AM RADIO COMMENTATOR) WBC 11.7(H) 3.8 - 9.9 K/cumm Hgb 7.4(L) 11.9 - 15.5 g/dL [facility] Hct 24.6(L) 35.6 - 45.5 % [facility] Plt 462(H) 150 - 400 K/cumm [facility] MPV 8.5(L) 9.1 - 12.3 fL [facility] RBC 2.37(L) 3.90 - 5.20 M/cumm [facility] MCV 103.8(H) 81.3 - 96.4 fL [facility] MCH 31.2 27.1 - 33.3 pg [facility] MCHC 30.1(L) 32.3 - 35.7 g/dL [facility] RDW CV 18.0(H) 11.1 - 14.9 % [facility] RDW SD 67.7(H) 35.7 - 48.1 fL [facility] NRBC abs 0.00 0.00 - 0.01 K/cumm [facility] Blood 08/22/2024 9:54 AM RADIO COMMENTATOR 08/22/2024 10:36 AM RADIO COMMENTATOR us Kala Barbosa NP LAB BLOOD ORDERABLES Final R esult [facility] [address] [address] Department of [place] [address] * (ABNORMAL) Comprehensive metabolic panel (08/22/2024 9:54 AM RADIO COMMENTATOR) Sodium 137 135 - 145 mmol/L Potassium, pl 3.8 3.3 - 4.9 mmol/L [facility] Chloride 96(L) 97 - 110 mmol/L [facility] CO2 25 22 - 32 mmol/L [facility] Anion gap 16(H) 2 - 15 mmol/L [facility] BUN 49(H) 6 - 25 mg/dL [facility] Creatinine 11.69(H) 0.60 - 1.10 mg/dL [facility] Glucose 107 70 - 199 mg/dL [facility] Comment: Interpretive Data Fasting glucose [...] Units/L [facility] Blood 08/22/2024 9:54 AM RADIO COMMENTATOR 08/22/2024 10:37 AM RADIO COMMENTATOR us Kala Barbosa NP LAB BLOOD ORDERABLES Final R esult [facility] [id number] Department [place] [address] * (ABNORMAL) Urinalysis reflex to microscopic and culture Urine, clean voided (08/21/2024 6:01 PM RADIO COMMENTATOR) Color, ur Mitzi Yellow Clarity, ur Turbid(A) [...] tendency for uric acid stone formation. Source: [facility] [employer] Current Interpretive Data was last revised on [...] CH Urine, clean voided 08/21/2024 6:01 PM RADIO COMMENTATOR 08/21/2024 6:06 PM RADIO COMMENTATOR Result [facility] Bobby Ya MD LAB MICROBIOLOGY - GENERAL ORDERABLES Final Result Performing Organization Address [facility] Co de Phone Number [facility] [address] [facility] [place] [address] * (ABNORMAL) Urinalysis, microscopic only (08/21/2024 6:01 PM RADIO COMMENTATOR) WBC, ur >50(A) 0 - 5 /HPF RBC, ur >50(A) 0 - 2 /HPF [facility] Epithelial cells, squamous, ur 21-50(A) 0 - 5 /HPF [facility] Culture Reflex Comment Reflex to urine culture will be performed. [facility] Urine, clean voided 08/21/2024 6:01 PM RADIO COMMENTATOR 08/21/2024 6:06 PM RADIO COMMENTATOR Bobby Ya MD LAB URINE ORDERABLES Final Result Performing Organization Address [facility] de Phone Number [facility] [id number] [facility] [employer] [place], [place] [id number] * Urine culture Urine, clean voided (08/21/2024 6:01 PM RADIO COMMENTATOR) Report Final Report: Less than 100,000 colonies/mL (clinically insignificant growth based on current clinical standards) Comment:Testing performed by : [facility], [address] [place] [address] Organism (CLINICALLY INSIGNIFICANT GROWTH [facility] Urine, clean voided 08/21/2024 6:01 PM RADIO COMMENTATOR 08/21/2024 8:14 PM RADIO COMMENTATOR Narrative [facility] - 08/23/2024 7:20 AM RADIO COMMENTATOR Urine culture reflexed based upon urinalysis results. Testing performed by [facility] ([phone]) Bobby Ya MD LAB MICROBIOLOGY - GENERAL ORDERABLES Final Result [facility] [address] Department [place] [address] * CT Chest Abdomen Pelvis WO Contrast (08/21/2024 4:56 PM RADIO COMMENTATOR) Anatomical Region Laterality Modality Body N/A Computed Tomogra phy 08/21/2024 5:31 PM RADIO COMMENTATOR Impressions 08/22/2024 2:24 PM RADIO COMMENTATOR Moderate loculated left pleural effusion with left [...] Priscila Ochoa M.D. Narrative 08/22/2024 2:24 PM RADIO COMMENTATOR EXAM: CT CHEST, ABDOMEN AND PELVIS WITHOUT [...] noted without pericardial effusion..Atherosclerotic nonaneurysmal aorta with bzsl-dv-olwareiv calcified plaque and mild aortic valvular calcification [...] noted without pericardial effusion..Atherosclerotic nonaneurysmal aorta with dytc-al-jziolkmw calcified plaque and mild aortic valvular calcification [...] by: Priscila Ochoa M.D. Bobby Ya MD IM CT PROCEDURES Final Res ult * (ABNORMAL) Iron profile w/ IBC (08/21/2024 7:44 AM RADIO COMMENTATOR) Iron 164(H) 35 - 145 mcg/dl TIBC 254 250 - 400 mcg/dL [facility] Transferrin saturation 65(H) 20 - 50 % [facility] Blood 08/21/2024 7:44 AM RADIO COMMENTATOR 08/21/2024 9:19 AM RADIO COMMENTATOR Kala Barbosa NP LAB BLOOD ORDERABLES Final R esult Performing Organization Address City/[facility]/ZIP Co de Phone Number [facility] [place] [address] Department [email or web address] [address] * Blood culture Blood (08/21/2024 7:44 AM RADIO COMMENTATOR) Report Final Report: No growth Comment:Testing performed by : [facility], [address] [place]., [address] Blood 08/21/2024 7:44 AM RADIO COMMENTATOR 08/21/2024 12:57 PM RADIO COMMENTATOR Narrative [facility] - 08/25/2024 4:00 PM RADIO COMMENTATOR From a different site than #1. Collection->Peripheral [...] characteristics have been verified by the [facility]. For questions about this culture, contact the Microbiology Laboratory at [phone]. Interpretive data was last revised on 24. Kala Barbosa NP LAB MICROBIOLOGY - GENERAL O RDERABLES Final Result Performing Organization Address City/[facility]/ZIP Co de Phone Number [facility] [place] [address] Department [email or web address] [place], [place] [id number] * Blood culture Blood (08/21/2024 7:44 AM RADIO COMMENTATOR) Report Final Report: No growth Comment:Testing performed by : [facility], [address] [facility], [place]., [address] Blood 08/21/2024 7:44 AM RADIO COMMENTATOR 08/21/2024 12:57 PM RADIO COMMENTATOR Narrative [facility] - 08/25/2024 4:00 PM RADIO COMMENTATOR Collection->Peripheral 1. Blood cultures are incubated for [...] characteristics have been verified by the [facility]. For questions about this culture, contact the Microbiology Laboratory at [phone]. Interpretive data was last revised on 24. us Kala Barbosa NP LAB MICROBIOLOGY - GENERAL O RDERABLES Final Result [facility] [address] Department [place] [address] * Folate (08/21/2024 7:44 AM RADIO COMMENTATOR) Folic acid >20.0 >=5.0 ng/mL Comment:Hemolysis present. R esults may be affected. Blood 08/21/2024 7:44 AM RADIO COMMENTATOR 08/21/2024 9:19 AM RADIO COMMENTATOR Kala Tomlinolvin FINANCIAL SALES ADVISOR LAB BLOOD ORDERABLES Final R esult [facility] [place] [address] [address] [facility] [employer] [place] [address] * (ABNORMAL) Vitamin B12 (08/21/2024 7:44 AM RADIO COMMENTATOR) Vitamin B12 1,704(H) 230 - 1,250 pg/mL Blood 08/21/2024 7:44 AM RADIO COMMENTATOR 08/21/2024 9:19 AM RADIO COMMENTATOR Kala Barbosa FINANCIAL SALES ADVISOR LAB BLOOD ORDERABLES Final R esult Performing Organization Address [facility] Co de Phone Number [facility] [place] [address] [address] [facility] [employer] [place] [address] * (ABNORMAL) eGFR (08/21/2024 2:52 AM RADIO COMMENTATOR) eGFR 4(L) >=60 mL/min/1. 73 m2 Comment: [...] last reviewed 2021. Blood 08/21/2024 2:52 AM RADIO COMMENTATOR 08/21/2024 3:17 AM RADIO COMMENTATOR us Kala Santanasid [facility] LAB BLOOD ORDERABLES Final R esult [facility] [address] Department [place] [address] * (ABNORMAL) Differential, auto (08/21/2024 2:52 AM RADIO COMMENTATOR) Neutrophil abs 9.6(H) 1.5 - 6.5 K/cumm Imm gran abs 0.2(H) 0.0 - 0.1 K/cumm [facility] Lymphocyte abs 1.0 0.8 - 3.3 K/cumm [facility] Monocyte abs 1.4(H) 0.2 - 0.8 K/cumm [facility] Eosinophil abs 0.3 0.0 - 0.5 K/cumm [facility] Basophil abs 0.1 0.0 - 0.1 K/cumm [facility] Neutrophil pct 76.2 % [facility] Comment: Interpretive Data Percent cell count reference ranges are not reported, since discordance with absolute values may lead to misinterpretation of CBC data. Current Interpretive Data was last revised on 2017. Imm gran pct 1.4 % [facility] Comment: Interpretive Data Percent cell count reference ranges are not reported, since discordance with absolute values may lead to misinterpretation of CBC data. Current Interpretive Data was last revised on 2017. Lymphocyte pct 8.2 % [facility] Comment: Interpretive Data Percent cell count reference ranges are not reported, since discordance with absolute values may lead to misinterpretation of CBC data. Current Interpretive Data was last revised on 2017. Monocyte pct 11.4 % [facility] Comment: Interpretive Data Percent cell count reference ranges are not reported, since discordance with absolute values may lead to misinterpretation of CBC data. Current Interpretive Data was last revised on 2017. Eosinophil pct 2.1 % [facility] Comment: Interpretive Data Percent cell count reference ranges are not reported, since discordance with absolute values may lead to misinterpretation of CBC data. Current Interpretive Data was last revised on 2017. Basophil pct 0.7 % [facility] Comment: Interpretive Data Percent cell count reference ranges are not reported, since discordance with absolute values may lead to misinterpretation of CBC data. Current Interpretive Data was last revised on 2017. Blood 08/21/2024 2:52 AM RADIO COMMENTATOR 08/21/2024 3:18 AM RADIO COMMENTATOR Kala Barbosa NP LAB BLOOD ORDERABLES Final R esult Performing Organization Address City/[facility]/ZIP Co de Phone Number [facility] [address] [place] [address] * (ABNORMAL) CBC with auto differential (08/21/2024 2:52 AM RADIO COMMENTATOR) WBC 12.6(H) 3.8 - 9.9 K/cumm Hgb 7.4(L) 11.9 - 15.5 g/dL [facility] Hct 24.1(L) 35.6 - 45.5 % [facility] Plt 478(H) 150 - 400 K/cumm [facility] [...] K/cumm [facility] Blood 08/21/2024 2:52 AM RADIO COMMENTATOR 08/21/2024 3:18 AM RADIO COMMENTATOR Kala Barbosa NP LAB BLOOD ORDERABLES Final R esult Performing Organization Address City/[facility]/ZIP Co de Phone Number [facility] [place] [address] Department [email or web address] [place], [place] [id number] * (ABNORMAL) Comprehensive metabolic panel (08/21/2024 2:52 AM RADIO COMMENTATOR) Sodium 136 135 - 145 mmol/L Potassium, [...] Units/L [facility] Blood 08/21/2024 2:52 AM RADIO COMMENTATOR 08/21/2024 3:17 AM RADIO COMMENTATOR us Kala Barbosa NP LAB BLOOD ORDERABLES Final R esult [facility] [place] [address] Department [place] [address] * XR Chest 1 Vw Portable (08/21/2024 1:09 AM RADIO COMMENTATOR) Anatomical Region Laterality Modality Body, Chest N/A Computed Radiogr aphy 08/21/2024 8:04 AM RADIO COMMENTATOR Impressions 08/21/2024 8:04 AM RADIO COMMENTATOR CARDIOMEGALY WITH CONSOLIDATING OPACITY IN THE LEFT BASE AND HAZY OPACITY IN THE RIGHT BASE WITH FLUID IN THE FISSURE. A LATERAL CHEST VIEW OR CT OF THE CHEST IS SUGGESTED TO EVALUATE THE LUNG BASES. Electronically signed by: Sulaiman Xie M.D. Narrative 08/21/2024 8:04 AM RADIO COMMENTATOR EXAMINATION: XR CHEST 1 VIEW HISTORY: Elevated [...] (ABNORMAL) Potassium, whole blood (08/21/2024 12:48 AM RADIO COMMENTATOR) Potassium, bld 3.1(L) 3.3 - 4.9 mmol/L Comment: Interpretive Data This method is not able to assess for hemolysis, which may falsely increase potassium concentrations. If further testing is needed to evaluate this result, consider in-laboratory plasma potassium. Current Interpretive Data was last revised on 2022. Blood 08/21/2024 12:4 8 AM RADIO COMMENTATOR 08/21/2024 12:59 AM RADIO COMMENTATOR Susan Salcedo NP LAB BLOOD ORDERABLES Final Result [facility] [address] [place] [employer] [place] [address] * (ABNORMAL) Hemoglobin and hematocrit (08/21/2024 12:48 AM RADIO COMMENTATOR) Hgb 7.2(L) 11.9 - 15.5 g/dL Hct 23.7(L) 35.6 - 45.5 % [facility] Blood 08/21/2024 12:4 8 AM RADIO COMMENTATOR 08/21/2024 1:00 AM RADIO COMMENTATOR Susan Salcedo NP LAB BLOOD ORDERABLES Final Result Performing Organization Address City/[facility] Co de Phone Number [facility] [place] [address] [employer] [address] from Last 3 Months Insurance [facility] MEDICARE [facility] MED[facility] Advance Directives For more information, please contact: [phone] * Full Code (Latest Code Status on File) Date Activated Date Inactivated Comments 08/21/2024 2:16 AM 08/26/2024 10:55 PM * Full Code Date Activated Date Inactivated Comments 07/25/2024 6:59 PM 08/04/2024 7:42 PM * Full Code Date Activated Date Inactivated Comments 07/21/2024 6:30 PM 07/25/2024 6:50 PM Care Teams Building Maintenance Supervisor Relationship Specialty Start Date End Date Porsche Becker NP [address] [facility] [address] [place], [place] [id number] PCP - General Nurse Practitioner 08/19/24 Mookie Dubois MD Referring Physician Nephrology 02/20/22 Jama Hoskins MD [address] [place] [address] Consulting Physician Cardiology 02/20/24
== END 2024-11-18 14:56 | disposition home or self-care (01) ==
PROVIDERS: PCP Nurse Practitioner Family; Visit Provider Urology
DX: N20.0 Calculus of kidney (principal)
CPT/HCPCS: 74018